=== PATIENT | male | born 1980 | race Caucasian/White ===

== ENCOUNTER 2024-03-17 09:07 | Inpatient (IN) ==
--- NOTE | 2024-03-17 09:30 | Emergency Department Note ---
Impression & Plan SBO (small bowel obstruction), Vomiting, Leukocytosis, Anemia, Recent cerebrovascular accident, Dialysis patient, Tachycardia ED Provider Note NAME: MARIZOL ADEN AGE: 44 SEX: M : 1980 ARRIVES VIA: Ambulance INFORMANT: [Patient][ems, nursing] ED PROVIDER(S): [Ervin Jaquez MD] CHIEF COMPLAINT: Vomiting, distention HISTORY OF PRESENT ILLNESS: The patient is a 44-year-old male who recently had a stroke affecting his right side. He has expressive aphasia and significant right-sided deficits. He is currently at [facility] for rehab. Has a history of renal failure and does do peritoneal dialysis. He has a right chest line in place. The patient began vomiting last evening, his abdomen is distended. There is concern for bowel obstruction, he was sent to our hospital. The patient denies any abdominal pain but does admit to the bloating of the abdomen. He is not short of breath. He is currently on 2 L of oxygen which has been chronic since his CVA. In route, he was given 4 mg of Zofran IV by EMS. PMHx/PSHx/Social Hx: See Below PHYSICAL EXAM: GENERAL: Patient is in no acute distress. HEENT: No acute trauma, normocephalic atraumatic, mucous membranes moist, no nasal congestion. NECK: No stridor, no adenopathy, no meningismus, trachea is midline. LUNGS: Clear to auscultation bilaterally, no wheeze, no rhonchi, breath sounds equal. HEART: Mildly tachycardic, regular rhythm, no murmurs. ABDOMEN: Distended and firm. There is tympany with percussion. No pain with palpation. There is a peritoneal dialysis catheter in place EXTREMITIES: No cyanosis. No significant edema. There is a boot on the right lower extremity. NEUROLOGIC: Oriented x 3, currently nonverbal. Awake and alert SKIN: No jaundice, no diaphoresis. DIFFERENTIAL DIAGNOSIS: Bowel obstruction, ileus, constipation, dehydration, electrolyte imbalance, among others. EMERGENCY DEPARTMENT PROCEDURES: MEDICAL DECISION MAKING: There is a moderate leukocytosis, this could be consistent with infection. Patient is anemic with a hemoglobin of 9.1. There is a normal platelet count. INR is somewhat elevated at 1.2. Potassium mildly elevated at 5.2. There was a high creatinine and BUN consistent with his dialysis need. No concerning liver enzyme elevation. Lipase was somewhat high at 223, this elevation could be from his vomiting alone. COVID test was negative. Chest x-ray does not show pneumonia, free air or pneumothorax. Abdominal and pelvis CT does suggest a small bowel obstruction or severe ileus. On exam, the patient did have abdominal distention with tympany to percussion. He was not febrile, he did not complain of any pain. He was mildly tachycardic and borderline hypotensive. The patient did vomit 1 time here, he was given an additional 4 mg of Zofran IV. This was on top of the Zofran given prior to arrival. Patient received a 500 cc saline bolus. Eventually, he had an NG tube placed to low intermittent suction. The patient appears to have a small bowel obstruction. This has led to abdominal distention and vomiting. As he does have a dialysis need, I am hesitant to give too much IV fluid despite his borderline hypotension. I did speak with general surgery. No acute surgical intervention. NG tube decompression was suggested. Hospitalization is clearly indicated. I did speak with the patient and case management, the on-call hospitalist was consulted. Prior/Outside records/notes reviewed: Today's EMS notes describing his presentation and transport to this hospital. ECG per my interpretation: Indication was tachycardia. The ECG shows a sinus tachycardia with a rate of 112. There is no acute ST elevation, no PVCs. The QTc is 444. Continuous Cardiac Monitoring per my interpretation: An order was placed for continuous cardiac monitoring. The monitor shows a rate of 114 with sinus tachycardia. Imaging/x-ray results per my interpretation: Chest x-ray does not show CHF, pneumonia or pneumothorax. There is no free air. Chronic Medical/Social conditions affecting care: Recent CVA with current stay at inpatient rehab. Care/Management discussed with: General surgery-Dr. Esquivel. Case management and the on-call hospitalist. Level of care consideration(s): After review of the information above and other included data: --I believe the patient requires escalation of care to admission Critical Care Note: I have personally spent 46 minutes of critical care time in the direct management of this patient. This includes bedside care, interpretation of diagnostic studies, and testing, discussion with consultants, patient, and family members, and other required patient management activities. This 46 minutes is in excess of all separately billable procedures. DISPOSITION: Admission Past Med/Surg History Problem List Hypotension Ileus Aphasia, post-stroke Dyslipidemia Anemia in ESRD (end-stage renal disease) Essential hypertension Acute ischemic left MCA stroke ESRD on peritoneal dialysis Medical History Legionnaires' disease Diastolic congestive heart failure Failed kidney transplant Gouty arthropathy Granulomatosis with polyangiitis with renal involvement Surgical History (Updated 03/17/24 @ 11:50 by Lexi Ballard PA-C) History of kidney transplant Family History (Updated 03/17/24 @ 11:50 by Lexi Ballard PA-C) Other Cancer Diabetes Hypertension Social History Smoking Status: Never smoker Feels Safe at Home: Yes Allergies Allergies Allergy/AdvReac Type Severity Reaction Status Date / Time No Known Allergies Allergy Verified 03/17/24 11:47 Home Meds Home Medications Medication Instructions Recorded Confirmed apixaban 5 mg tablet (Eliquis) 5 mg PO BID 03/17/24 03/17/24 atorvastatin 40 mg tablet 40 mg PO HS 03/17/24 03/17/24 calcium acetate(phosphat bind) 667 2,001 mg PO UD 03/17/24 03/17/24 mg capsule cinacalcet 30 mg tablet 60 mg PO QPM 03/17/24 03/17/24 cyclosporine modified 25 mg capsule 50 mg PO BID 03/17/24 03/17/24 febuxostat 80 mg tablet 80 mg PO QAM 03/17/24 03/17/24 ferric citrate 210 mg iron tablet 210 mg PO AC 03/17/24 03/17/24 (Auryxia) metoprolol succinate 100 mg 100 mg PO QAM 03/17/24 03/17/24 tablet,extended release 24 hr omeprazole 20 mg capsule,delayed 20 mg PO BID 03/17/24 03/17/24 release vitamin B complex and vitamin C 1 cap PO DAILY 03/17/24 03/17/24 no.20-folic acid 1 mg capsule Results & Data (ED) Vital Signs Vital Signs - 24 hr 03/17/24 09:07 03/17/24 09:27 03/17/24 09:35 Temperature 36.4 C L Temperature Source Oral Pulse Rate 117 H 116 H 116 H Pulse Rate from SpO2 Sensor Pulse Rhythm Regular Respiratory Rate 20 20 Respiratory Effort / Characteristics Non-Labored Respiratory Depth Normal Respiratory Pattern Regular Blood Pressure 83/65 L Blood Pressure Mean 71 Pulse Oximetry 98 98 Oxygen Delivery Method Nasal Cannula Nasal Cannula Oxygen Flow Rate 2 2 Sepsis Recent Fever Within 48 Hours No Sepsis New/Unexplained Change in Mental Status No Sepsis Action Taken by Nursing Physician Notified 03/17/24 10:00 03/17/24 10:00 03/17/24 11:39 Temperature Temperature Source Pulse Rate 114 H 109 H 116 H Pulse Rate from SpO2 Sensor 115 H 110 H 116 H Pulse Rhythm Respiratory Rate 33 H 15 Respiratory Effort / Characteristics Respiratory Depth Respiratory Pattern Blood Pressure 89/66 L 89/66 L 81/53 L Blood Pressure Mean 73 69 62 Pulse Oximetry 94 99 94 Oxygen Delivery Method Nasal Cannula Nasal Cannula Oxygen Flow Rate 2 3 Sepsis Recent Fever Within 48 Hours Sepsis New/Unexplained Change in Mental Status Sepsis Action Taken by Nursing 03/17/24 12:00 Temperature Temperature Source Pulse Rate 106 H Pulse Rate from SpO2 Sensor 107 H Pulse Rhythm Respiratory Rate 16 Respiratory Effort / Characteristics Respiratory Depth Respiratory Pattern Blood Pressure 73/46 L Blood Pressure Mean 58 Pulse Oximetry 97 Oxygen Delivery Method Nasal Cannula Oxygen Flow Rate 2 Sepsis Recent Fever Within 48 Hours Sepsis New/Unexplained Change in Mental Status Sepsis Action Taken by Correction Medications Current Medication List: was personally reviewed by me Laboratory Data Attestation: I reviewed the patient's lab results. 03/17/24 09:55 03/17/24 09:55 Lab Results 03/17/24 03/17/24 Range/Units 09:55 10:10 WBC 18.75 H (4.8-10.8) K/ul RBC 3.06 L (4.70-6.10) M/uL Hgb 9.1 L (14.0-18.0) g/dl Hct 28.5 L (42.0-52.0) % MCV 93.1 (80.0-100.0) fL MCH 29.7 (25.0-34.0) pg MCHC 31.9 L (32.0-36.0) g/dL RDW Std Deviation 56.2 H (36.4-46.3) fL RDW Coeff of Annie 17.2 H (11.5-14.5) % Plt Count 338 (130-400) K/uL MPV 9.9 (9.4-12.4) fL Immature Gran % (Auto) 1.3 % Neut % (Auto) 78.8 % Lymph % (Auto) 8.4 % [place] % (Auto) 9.1 % Eos % (Auto) 1.9 % Baso % (Auto) 0.5 % Neut # (Auto) 14.76 H (1.40-6.50) K/uL Lymph # (Auto) 1.57 (1.20-3.40) K/uL [place] # (Auto) 1.71 H (0.11-0.59) K/uL Eos # (Auto) 0.36 (0.00-0.50) K/uL Baso # (Auto) 0.10 (0.00-0.20) K/uL Immature Gran # (Auto) 0.25 H (0.01-0.20) K/uL Absolute Nucleated RBC 0.03 (0.00-0.12) K/uL Nucleated RBC % (auto) 0.2 % PT 12.5 H (9.0-12.0) Seconds INR 1.2 H (0.9-1.1) APTT 33 H (21-31) Seconds PTT Ratio 1.2 Sodium 136 (136-145) mmol/L Potassium 5.2 H (3.5-5.1) mmol/L Chloride 93 L (98-107) mmol/L Carbon Dioxide 23 (21-32) mmol/L Anion Gap 20 H (3-11) BUN 58 H (6-23) mg/dl Creatinine 10.36 H* (0.6-1.4) mg/dl Est Cr Clr Drug Dosing 12.0 ml/min Est GFR ( Amer) 6.3 ml/min Est GFR (Non-Af Amer) 5.4 ml/min BUN/Creatinine Ratio 5.6 L (10-20) Glucose 113 H (70-99(Fasting)) mg/dl Calcium 9.9 (8.6-10.3) mg/dl Total Bilirubin 0.9 (0.2-1.0) mg/dl AST 37 (13-39) U/L ALT 34 (7-52) U/L Alkaline Phosphatase 115 H (34-104) U/L Total Protein 9.0 H (6.0-8.3) gm/dl Albumin 4.5 (3.4-5.0) gm/dl Globulin 4.5 H (2.5-4.0) gm/dl Albumin/Globulin Ratio 1.0 (0.9-2) Lipase 223 H (11-82) U/L SARS-CoV-2, RNA, NAAT NEGATIVE (NEGATIVE) Administered Medications Sodium Chloride (Nss) 1,000 mls @ 80 mls/hr IV .[id number] HANSA Stop: 03/18/24 02:55 Last Admin: 03/17/24 14:32 Dose: 125 mls/hr Documented By: DAYSI Discontinued Medications Sodium Chloride (Nss) 500 mls @ 999 mls/hr IV .Q31M STA Stop: 03/17/24 09:56 Last Infusion: 03/17/24 10:58 Dose: Infused Documented By: Admin: 03/17/24 10:00 Dose: 999 mls/hr Documented By: SNOW Sodium Chloride (Nss) 500 mls @ 500 mls/hr IV .Q1H HANSA Stop: 03/17/24 14:14 Last Admin: 03/17/24 14:00 Dose: 500 mls/hr Documented By: DAYSI Ondansetron HCl (Ondansetron Inj 2 Mg/Ml 2 Ml Vial) 4 mg IV NOW STA Stop: 03/17/24 11:03 Last Admin: 03/17/24 11:11 Dose: 4 mg Documented By: BMK Imaging Data Radiologist's Impression: Chest X-Ray 03/17/24 09:26 XR chest 1V portable CLINICAL HISTORY: abd pain TECHNIQUE: Single frontal radiograph of the chest was obtained. Comparison: None available at the time of this dictation. FINDINGS: The catheter is unchanged. The cardiomediastinal silhouette is normal. Lungs are underinflated but clear. No evidence of pleural effusion or pneumothorax. IMPRESSION: No acute chest disease. ACT 112: Negative or not required by law. Electronically signed by: David Torrez M.D. 03/17/2024 10:15 AM Abdomen/Pelvis CT 03/17/24 10:14 CT abd pelvis wo con CLINICAL HISTORY: poss obstruc, dialysis pt TECHNIQUE: Helical axial images of the abdomen and pelvis were obtained. Automated dose lowering techniques and/or adjustment according to patient size were utilized for this exam. This exam was performed without intravenous contrast. CT DOSE: 2201.42 mGy.cm COMPARISON: None available at the time of this dictation. FINDINGS: Lower chest: No acute abnormality. Liver: Unremarkable. No focal lesions are seen. Gallbladder and biliary tree: No calcified gallstones. Normal caliber wall. No intra- or extrahepatic biliary ductal dilation. Pancreas: Unremarkable, no focal lesions. Spleen: Splenule is incidentally noted. Adrenals: Unremarkable. Kidneys and ureters: Atrophic bilateral kidneys noted. An atrophic transplant kidney is noted in the left lower quadrant. Bladder: Limited evaluation due to underdistention. Reproductive organs: Unremarkable. Bowel: Numerous dilated loops of large and small bowel are seen. There is apparent tethering of 2 loops of small bowel in one loop of large bowel in the right lower quadrant although this does not represent a transition point as distal loops of bowel are also dilated. Lymph nodes Retroperitoneal: Unremarkable. Pelvic: Unremarkable. Mesenteric: Unremarkable. Peritoneum: Peritoneal catheter is seen. No significant free fluid. Vessels: Unremarkable. Abdominal wall: Unremarkable. Bones: Degenerative changes in the visualized spine. IMPRESSION: Numerous dilated loops of large and small bowel without a firm transition point. Findings may represent ileus versus partial obstruction. There may be a focus of adhesions in the right lower quadrant. ACT 112: Negative or not required by law. Electronically signed by: David Torrez M.D. 03/17/2024 10:53 AM Discharge Plan Visit Data Chief Complaint: Vomiting Stated Complaint: NAUSEA, VOMITING ED Provider: Ervin Jaquez Discharge Problem: SBO (small bowel obstruction), Vomiting, Leukocytosis, Anemia, Recent cerebrovascular accident, Dialysis patient, Tachycardia Patient Disposition: Admitted As Inpatient Condition: Fair Discharge Instructions Interventions: ED Discharge Assessment Last Done: 03/17/24 12:50 Discharge Problem: Vomiting Qualifiers: Vomiting type: unspecified Nausea presence: with nausea Qualified Code(s): R 11.2 - Nausea with vomiting, unspecified Leukocytosis Qualifiers: Leukocytosis type: unspecified Qualified Code(s): D72.829 - Elevated white blood cell count, unspecified Anemia Qualifiers: Anemia type: unspecified type Qualified Code(s): D64.9 - Anemia, unspecified
[2024-03-17] MEDS: SODIUM CHLORIDE 0.9% 500 ML IV STA (10:00)
--- NOTE | 2024-03-17 10:17 | XRay Report ---
XR chest 1V portable CLINICAL HISTORY: abd pain TECHNIQUE: Single frontal radiograph of the chest was obtained. Comparison: None available at the time of this dictation. FINDINGS: The catheter is unchanged. The cardiomediastinal silhouette is normal. Lungs are underinflated but cl ear. No evidence of pleural effusion or pneumothorax. IMPRESSION: No acute chest disease. ACT 112: Negative or not required by law. Electronically signed by: David Torrez M.D. 03/17/2024 10:15 AM
[2024-03-17 10:41] LABS: Basophils % (auto) 0.5 %; Eosinophils # (auto) 0.36 K/uL (0.00-0.50); Eosinophils % (auto) 1.9 %; Hematocrit (blood only) 28.5 % (42.0-52.0); Hemoglobin 9.1 g/dl (14.0-18.0); Immature Granulocytes # (auto) 0.25 K/uL (0.01-0.20); Immature Granulocytes % (auto) 1.3 %; Lymphocytes # (auto) 1.57 K/uL (1.20-3.40); Lymphocytes % (auto) 8.4 %; Mean Corpuscular Hemoglobin 29.7 pg (25.0-34.0); Mean Corpuscular Hgb Conc 31.9 g/dL (32.0-36.0); Mean Corpuscular Volume 93.1 fL (80.0-100.0); Mean Platelet Volume 9.9 fL (9.4-12.4); Monocytes # (auto) 1.71 K/uL (0.11-0.59); Monocytes % (auto) 9.1 %; Neutrophils # (auto) 14.76 K/uL (1.40-6.50); Neutrophils % (auto) 78.8 %; Nucleated RBC # (auto) 0.03 K/uL (0.00-0.12); Nucleated RBC % (auto) 0.2 %; Platelet Count 338 K/uL (130-400); RDW Coefficient of Variation 17.2 % (11.5-14.5); RDW Standard Deviation 56.2 fL (36.4-46.3); Red Blood Count 3.06 M/uL (4.70-6.10); White Blood Count 18.75 K/ul (4.8-10.8)
--- NOTE | 2024-03-17 10:55 | CT Scan Report ---
CT abd pelvis wo con CLINICAL HISTORY: poss obstruc, dialysis pt TECHNIQUE: Helical axial images of the abdomen and pelvis were obtained. Automated dose lowering tech niques and/or adjustment according to patient size were utilized for this exam. This exam was perfor med without intravenous contrast. CT DOSE: 2201.42 mGy.cm COMPARISON: None available at the time of this dictation. FINDINGS: Lower chest: No acute abnormality. Liver: Unremarkable. No focal lesions are seen. Gallbladder and biliary tree: No calcified gallstones. Normal caliber wall. No intra- or extrahepatic biliary ductal dilation. Pancreas: Unremarkable, no focal lesions. Spleen: Splenule is incidentally noted. Adrenals: Unremarkable. Kidneys and ureters: Atrophic bilateral kidneys noted. An atrophic transplant kidney is noted in the left lower quadrant. Bladder: Limited evaluation due to underdistention. Reproductive organs: Unremarkable. Bowel: Numerous dilated loops of large and small bowel are seen. There is apparent tethering of 2 loo ps of small bowel in one loop of large bowel in the right lower quadrant although this does not repre sent a transition point as distal loops of bowel are also dilated. Lymph nodes Retroperitoneal: Unremarkable. Pelvic: Unremarkable. Mesenteric: Unremarkable. Peritoneum: Peritoneal catheter is seen. No significant free fluid. Vessels: Unremarkable. Abdominal wall: Unremarkable. Bones: Degenerative changes in the visualized spine. IMPRESSION: Numerous dilated loops of large and small bowel without a firm transition point. Findings may represe nt ileus versus partial obstruction. There may be a focus of adhesions in the right lower quadrant. ACT 112: Negative or not required by law. Electronically signed by: David Torrez M.D. 03/17/2024 10:53 AM
[2024-03-17 11:03] LABS: Albumin Level 4.5 gm/dl (3.4-5.0); BUN Creatinine Ratio 5.6 (10-20); Bilirubin,Total 0.9 mg/dl (0.2-1.0); Calcium 9.9 mg/dl (8.6-10.3); Est GFR (African American) 6.3 ml/min; Est GFR (Non-African American) 5.4 ml/min; Globulin 4.5 gm/dl (2.5-4.0); Potassium 5.2 mmol/L (3.5-5.1)
[2024-03-17] MEDS: ONDANSETRON INJ 2 MG/ML 2 ML VIAL IV STA (11:11)
[2024-03-17 11:19] LABS: INR 1.2 (0.9-1.1); Partial Thromboplastin Ratio 1.2; Partial Thromboplastin Time 33 Seconds (21-31); Prothrombin Time 12.5 Seconds (9.0-12.0)
--- NOTE | 2024-03-17 11:51 | History & Physical Report ---
Date of Service March 17, 2024 Assessment & Plan (1) Ileus: Plan: This is a 44 y/o male with ESRD on PD, recent Left MCA stroke s/p unsuccessful thrombectomy with residual right hemiparesis and expressive aphasia, mitral leaflet non-mobile calcified mass, PFO, granulomastosis w/ polyangiitis, hx failed renal transplant, and other history as outlined below who presented to the ED today from [facility] after he developed vomiting and progressive abdominal distention since last night. [place] [facility] acute left MCA stroke with resultant severe expressive aphasia and right hemiparesis. Transferred to [facility] last evening but overnight developed recurrent vomiting and abd distention so transferred to the ED where work-up showed severe ileus vs. bowel obstruction. ED provider spoke with surgery who recommended NGT placement and observation. We were consulted for admission. NGT output since placement already >500 ml, at least 1000 ml out since arriving in the ED. Pt received initial 500 ml bolus in the ED but aggressive fluid replacement def erred due ESRD requiring dialysis and history diastolic CHF. - Admit to PCU but may need to consider transfer to ICU - Continue NGT per surgery - monitor Is and Os - Formal surgery consult pending - ED spoke with on-call provider - Discussed patient with Dr. Amaya from nephrology who is consulted - recommends considering transfer to ICU due to persistent hypotension since NGT placed - Will give another 500 ml NSS bolus and re-evaluate - Empiric antibiotic coverage with Zosyn -Lactate has been normal and ABG showed low pO2 of 50 with normal pH -Discussed with cnc operator machinist and the patient was transferred to ICU for continued care Leukocytosis Likely has sepsis, no definitive source of infection as of yet, could be intra- abdominal or in the chest Started with intravenous Zosyn as empirically The patient is developing fever in the ICU Blood cultures has been taken MRSA screen has been Negative (2) Hypotension: Plan: Blood pressure remained low at upper 70s even with 5 minutes mL of normal saline bolus Discussed with the solderer electronic and advised to have small volume of IV fluid and replace the amount loss The patient is to be transferred to ICU as he may need pressor agents now and during dialysis Will transfer the patient to ICU-left a message for cnc operator machinist Dr Anoop Davies Latest development: Blood pressure has been coming up documented to be 91/52 Discussed with the cnc operator machinist Will try to manage in telemetry unit for now Will get ABG, random cortisol level and lactate level If his conditions specially the blood pressure drops down then we will transfer the patient to ICU for pressor agents DR Anoop Davies (3) Aphasia, post-stroke: Plan: With right hemiplegia (4) ESRD on peritoneal dialysis: Plan: Previously was on peritoneal dialysis Since he had been in [place] they started hemodialysis Has had hemodialysis yesterday Appreciate nephrology input and recommendation (5) Acute ischemic left MCA stroke: Plan: As above (6) Essential hypertension: Plan: DVT prophylaxis He has been on Eliquis Will hold any pharmacologic prophylaxis at this time as he might need procedure in the ICU Will consider heparin tomorrow. Plan Medications reconciled from [facility] Holding most of pt's outpatient meds right now since NPO w/ NGT in place Pt on Eliquis due to potential thrombogenic mitral leaflet mass - consider alternate AC since Eliquis on hold. Continue BID PPI - note recent gastritis on EGD Pt seen and reviewed with Dr. Davies. Please see his note for additional details of the plan of care. Emir Ballard PA-C History of Present Illness Chief Complaint: vomiting Primary Care Provider: Tomer Garner MD This is a 44 y/o male with ESRD on PD, recent Left MCA stroke s/p unsuccessful thrombectomy with residual right hemiparesis and expressive aphasia, mitral leaflet non-mobile calcified mass, PFO, granulomastosis w/ polyangiitis, hx failed renal transplant, and other history as outlined below who presented to the ED today from [facility] after he developed vomiting and progressive abdominal distention since last night. Pt was [place] [facility] [place] 03/16/24 after he presented with new onset expressive aphasia. Work-up showed an acute left MCA infarct with calcific thrombus at the left MCA distal M1 segment. He was not a candidate for tPA; revascularization was attempted unsuccessfully. ALICIA on 03/08/24 confirmed the presence of a mitral leaflet non-mobile calcified mass that was potentially thrombogenic. He was also noted to have a small PFO with an atrial septal aneurysm. Antithrombotic regimen was initially implemented with aspirin and Plavix, then aspirin and Brilinta due to low PRU. Subsequently, he was changed to aspirin monotherapy, then aspirin and Eliquis, and was ultimately discharged on Eliquis alone. Hospital course was also complicated by UGIB with EGD showing gastritis. Transitioned back to PD on 03/04 but then back to CRRT due to poor ultrafiltration. At time of discharge, he was on HD on M/W/F with a plan to resume PD when pt returned home from rehab. Pt was NPO initially at [facility] but had been taking oral intake for the last few days. At time of discharge, he was noted to have severe expressive aphasia and persistent right sided hemiparesis but did response to yes/no questions. He was transferred to [facility] yesterday evening, arriving around 1900. Notes from [facility] were reviewed. Around 2100, pt was given his evening medications in pudding but after the second pill, he started vomiting brown liquid emesis with reported 1000 ml out. Around 2 am, 5:30 am, 6:00 am, and 6:30 am, he had an additional 250 ml of emesis each time. He was evaluated by the physician shortly after the last episode of emesis who recommended transfer to the ED at [facility]. Since being in the ED, pt vomited another 500 ml of brown emesis while the NGT was being placed. Since the NGT has placed, he has had at least another 500 ml out. Limited history from patient due to the expressive aphasia, but he denies pain at present. He has had some relief of discomfort with the NGT placement. Records including pt's discharge summary from [facility] [place] were reviewed. Last HD note reviewed with last HD on 03/15/24 - 246 min, -1.93 kg. CTA Brain 02/24/24: 1. Calcific thrombus at the left MCA distal M1 segment, with distal reconstitution. 2. Definite occlusion of a left MCA M2 to M3 branch. Possible occlusion of an additional left M2 to M3 branch. 3. origin of the right CAR DEALER. MRI Brain 02/24/24: IMPRESSION: Acute/subacute left MCA territory infarction involving a large portion of the left cerebral hemisphere without evidence of hemorrhagic transformation or significant associated mass effect. Curvilinear focus of susceptibility along the distal M1/proximal M2 segments of the left middle cerebral artery, corresponding to the location of a suspected calcified thrombus identified on CTA head/neck from 02/24/2024. TTE: 02/26/24: The examination is limited quality but adequate for evaluation of the referral indication. The qualitative LV ejection fraction is 65-69% (normal). No LV segmental wall motion abnormalities. There is an echodense area under the posterior mitral annulus on the atrial aspect of the valve which is consistent with mitral annular calcium. This was not appreciated well on study dated 10-29-2023, but is present on study 11-01-2022. There is no ASD/PFO by agitated saline contrast at rest or with valsalva manuever ALICIA 03/08/24: The examination is adequate to evaluate the referral indication. The qualitative LV ejection fraction is 60-64% (normal). No LV segmental wall motion abnormalities. There is a round, well circumscribed calcified nodule on the P2 segment of the mitral valve measuring 1.2 x 0.93 cm. Exact etiology cannot be determined by echo but there is no other significant calcification in the annulus to suggest that this is MAC. There is an atrial septal aneurysm. There is a small patent foramen ovale by color flow Doppler but no significant right to left was demonstrated with administration of agitated saline. Findings reviewed with primary team at bedside. EGD 03/01/24 due to coffee-ground emesis in NGT: Impression: - Normal esophagus. - Z-line regular, 44 cm from the incisors. - Gastritis. - Normal examined duodenum. - No specimens collected. Allergies Allergy/AdvReac Type Severity Reaction Status Date / Time No Known Allergies Allergy Verified 03/17/24 11:47 Home Medications Medication Instructions Recorded Confirmed Type apixaban 5 mg tablet (Eliquis) 5 mg PO BID 03/17/24 03/17/24 History atorvastatin 40 mg tablet 40 mg PO HS 03/17/24 03/17/24 History calcium acetate(phosphat bind) 667 2,001 mg PO UD 03/17/24 03/17/24 History mg capsule cinacalcet 30 mg tablet 60 mg PO QPM 03/17/24 03/17/24 History cyclosporine modified 25 mg capsule 50 mg PO BID 03/17/24 03/17/24 History febuxostat 80 mg tablet 80 mg PO QAM 03/17/24 03/17/24 History ferric citrate 210 mg iron tablet 210 mg PO AC 03/17/24 03/17/24 History (Auryxia) metoprolol succinate 100 mg 100 mg PO QAM 03/17/24 03/17/24 History tablet,extended release 24 hr omeprazole 20 mg capsule,delayed 20 mg PO BID 03/17/24 03/17/24 History release vitamin B complex and vitamin C 1 cap PO DAILY 03/17/24 03/17/24 History no.20-folic acid 1 mg capsule Past Med/Surg History Problem List (Updated 03/17/24 @ 16:11 by Lexi Ballard PA-C) Hypotension Ileus Aphasia, post-stroke Dyslipidemia Anemia in ESRD (end-stage renal disease) Essential hypertension Acute ischemic left MCA stroke ESRD on peritoneal dialysis Medical History Legionnaires' disease Diastolic congestive heart failure Failed kidney transplant Gouty arthropathy Granulomatosis with polyangiitis with renal involvement Surgical History (Updated 03/17/24 @ 11:50 by Lexi Ballard PA-C) History of kidney transplant Family History (Updated 03/17/24 @ 11:50 by Lexi Ballard PA-C) Other Cancer Diabetes Hypertension Social History Smoking Status: Never smoker Hx Alcohol Use: No Hx Substance Use: No Preferred Language: Bermudian Communication Ability: Effective Secondary School Registrar Required: No Beliefs That Will Affect Care: None Other Information That Helps Us Care for You: No Feels Safe at Home: Yes Review of Systems Review of Systems: Limited to expressive aphasia - see HPI Physical Exam Physical Exam: General: awake, answers yes/no questions by nodding/shaking head HEENT: no scleral icterus, NGT in place with dark brown liquid drainage Neck: supple, trachea midline Heart: regular but tachycardic Lungs: clear and slightly diminished on the anterior but limited inspiratory effort Abdomen: +distended, +Hypoactive BS, generalized tenderness Extremities: right LE in boot, no pitting pedal edema noted Neurologic: right hemiparesis, nonverbal Skin: warm, dry, no jaundice Results & Data Results & Data Vital Signs (Past 12 Hours) Vital Signs Temp Pulse Resp BP Pulse Ox O2 Del Method O2 Flow Rate 03/17/24 10:00 114 H 33 H 89/66 L 94 Nasal Cannula 2 03/17/24 09:35 116 H 20 98 Nasal Cannula 2 03/17/24 09:27 116 H 03/17/24 09:07 36.4 C L 117 H 20 83/65 L 98 Nasal Cannula 2 Laboratory Results Lab Results 03/17/24 03/17/24 Range/Units 09:55 10:10 WBC 18.75 H (4.8-10.8) K/ul RBC 3.06 L (4.70-6.10) M/uL Hgb 9.1 L (14.0-18.0) g/dl Hct 28.5 L (42.0-52.0) % MCV 93.1 (80.0-100.0) fL MCH 29.7 (25.0-34.0) pg MCHC 31.9 L (32.0-36.0) g/dL RDW Std Deviation 56.2 H (36.4-46.3) fL RDW Coeff of Annie 17.2 H (11.5-14.5) % Plt Count 338 (130-400) K/uL MPV 9.9 (9.4-12.4) fL Immature Gran % (Auto) 1.3 % Neut % (Auto) 78.8 % Lymph % (Auto) 8.4 % [place] % (Auto) 9.1 % Eos % (Auto) 1.9 % Baso % (Auto) 0.5 % Neut # (Auto) 14.76 H (1.40-6.50) K/uL Lymph # (Auto) 1.57 (1.20-3.40) K/uL [place] # (Auto) 1.71 H (0.11-0.59) K/uL Eos # (Auto) 0.36 (0.00-0.50) K/uL Baso # (Auto) 0.10 (0.00-0.20) K/uL Immature Gran # (Auto) 0.25 H (0.01-0.20) K/uL Absolute Nucleated RBC 0.03 (0.00-0.12) K/uL Nucleated RBC % (auto) 0.2 % PT 12.5 H (9.0-12.0) Seconds INR 1.2 H (0.9-1.1) APTT 33 H (21-31) Seconds PTT Ratio 1.2 Sodium 136 (136-145) mmol/L Potassium 5.2 H (3.5-5.1) mmol/L Chloride 93 L (98-107) mmol/L Carbon Dioxide 23 (21-32) mmol/L Anion Gap 20 H (3-11) BUN 58 H (6-23) mg/dl Creatinine 10.36 H* (0.6-1.4) mg/dl Est Cr Clr Drug Dosing 12.0 ml/min Est GFR ( Amer) 6.3 ml/min Est GFR (Non-Af Amer) 5.4 ml/min BUN/Creatinine Ratio 5.6 L (10-20) Glucose 113 H (70-99(Fasting)) mg/dl Calcium 9.9 (8.6-10.3) mg/dl Total Bilirubin 0.9 (0.2-1.0) mg/dl AST 37 (13-39) U/L ALT 34 (7-52) U/L Alkaline Phosphatase 115 H (34-104) U/L Total Protein 9.0 H (6.0-8.3) gm/dl Albumin 4.5 (3.4-5.0) gm/dl Globulin 4.5 H (2.5-4.0) gm/dl Albumin/Globulin Ratio 1.0 (0.9-2) Lipase 223 H (11-82) U/L SARS-CoV-2, RNA, NAAT NEGATIVE (NEGATIVE) Diagnostic Findings Chest X-Ray 03/17/24 09:26 XR chest 1V portable CLINICAL HISTORY: abd pain TECHNIQUE: Single frontal radiograph of the chest was obtained. Comparison: None available at the time of this dictation. FINDINGS: The catheter is unchanged. The cardiomediastinal silhouette is normal. Lungs are underinflated but clear. No evidence of pleural effusion or pneumothorax. IMPRESSION: No acute chest disease. ACT 112: Negative or not required by law. Electronically signed by: David Torrez M.D. 03/17/2024 10:15 AM Abdomen/Pelvis CT 03/17/24 10:14 CT abd pelvis wo con CLINICAL HISTORY: poss obstruc, dialysis pt TECHNIQUE: Helical axial images of the abdomen and pelvis were obtained. Automated dose lowering techniques and/or adjustment according to patient size were utilized for this exam. This exam was performed without intravenous contrast. CT DOSE: 2201.42 mGy.cm COMPARISON: None available at the time of this dictation. FINDINGS: Lower chest: No acute abnormality. Liver: Unremarkable. No focal lesions are seen. Gallbladder and biliary tree: No calcified gallstones. Normal caliber wall. No intra- or extrahepatic biliary ductal dilation. Pancreas: Unremarkable, no focal lesions. Spleen: Splenule is incidentally noted. Adrenals: Unremarkable. Kidneys and ureters: Atrophic bilateral kidneys noted. An atrophic transplant kidney is noted in the left lower quadrant. Bladder: Limited evaluation due to underdistention. Reproductive organs: Unremarkable. Bowel: Numerous dilated loops of large and small bowel are seen. There is apparent tethering of 2 loops of small bowel in one loop of large bowel in the right lower quadrant although this does not represent a transition point as distal loops of bowel are also dilated. Lymph nodes Retroperitoneal: Unremarkable. Pelvic: Unremarkable. Mesenteric: Unremarkable. Peritoneum: Peritoneal catheter is seen. No significant free fluid. Vessels: Unremarkable. Abdominal wall: Unremarkable. Bones: Degenerative changes in the visualized spine. IMPRESSION: Numerous dilated loops of large and small bowel without a firm transition point. Findings may represent ileus versus partial obstruction. There may be a focus of adhesions in the right lower quadrant. ACT 112: Negative or not required by law. Electronically signed by: David Torrez M.D. 03/17/2024 10:53 AM Medications Administered Discontinued Medications Sodium Chloride (Nss) 500 mls @ 999 mls/hr IV .Q31M STA Stop: 03/17/24 09:56 Last Infusion: 03/17/24 10:58 Dose: Infused Documented By: Admin: 03/17/24 10:00 Dose: 999 mls/hr Documented By: SNOW Ondansetron HCl (Ondansetron Inj 2 Mg/Ml 2 Ml Vial) 4 mg IV NOW STA Stop: 03/17/24 11:03 Last Admin: 03/17/24 11:11 Dose: 4 mg Documented By: NITIN Supervising Physician Co-Signing Physician Notes Attending addendum: The patient was seen and examined in emergency room in presence of the parents He is a 44-year-old male with complex and complicated past medical history including end-stage renal disease on peritoneal dialysis and now on hemodia lysis, recent left MCA stroke with successful thrombectomy with residual right hemiparesis and expressive aphasia, mitral plate nonmobile calcified mass, PFO, history of failed renal transplant and also other significant medical history and mention in the H&P apparently was discharged from [place] yesterday to [facility]. He has been complaining of progressive abdominal distention and bloating for the last few days and following food this morning started to have more distention, pain, nausea and vomiting. Denies any fever and or chills, no chest pain and/or palpitation. He was noted to have ileitis/intestinal obstruction on CAT scan. Has been put on NG tube and suction, n.p.o. and also IV antibiotic and was admitted to telemetry unit but continuing of care. On examination Lying in bed without any apparent distress, very lethargic Nonverbal secondary to stroke with right hemiparesis Blood pressure has been on the lower side at 74/51 with tachycardia Chest-decreased breath sound bilateral otherwise clear Heart-S1, S2, regular Abdomen-distended, mildly firm and mildly tender, bowel sounds decreased Extremities-trace edema bilaterally HOSPICE CARE CONSULTANT-alert and awake, and fascia, right hemiplegia from recent stroke His admission labs, EKG and imaging studies reviewed Has significant signs and symptoms of SBO due to ileitis/obstruction-surgery consulted, NG tube has been putting with low suction Increased white count-will start empiric antibiotic with Zosyn to cover intra- abdominal pathologies mainly End-stage renal disease also on peritoneal dialysis now on hemodialysis-will co nsult solderer electronic Low blood pressure likely secondary to ongoing illness and could be secondary to sepsis-antibiotics have been started Recent stroke with aphasia and right hemiparesis Agree with and take the full responsibility of assessment and plan as outlined above by INOCENCIO Canela Dr Blood pressure remained low at upper 70s even with 5 minutes mL of normal saline bolus Discussed with the solderer electronic and advised to have small volume of IV fluid and replace the amount loss The patient is to be transferred to ICU as he may need pressor agents now and during dialysis Will transfer the patient to ICU-left a message for cnc operator machinist Dr Anoop Davies Latest development: Blood pressure has been coming up documented to be 91/52 Discussed with the cnc operator machinist Will try to manage in telemetry unit for now Will get ABG, random cortisol level and lactate level If his conditions specially the blood pressure drops down then we will transfer the patient to ICU for pressor agents DR Anoop Davies (2) Hypotension Hypotension type: hypotension due to hypovolemia Qualified Code(s): E86.1 - Hypovolemia
[2024-03-17] MEDS: SODIUM CHLORIDE 0.9% 500 ML IV SCH (14:00)
--- OUTSIDE RECORDS SUMMARY | 2024-03-17 14:11 | External Medical Summary ---
Author Name Unknown Address Unknown Organization [id number]:LABORATORY [facility] [place] - [address] [place] [address] Laboratory Report Ordering Provider Test Date Status CHRISTIANO BRADY 03/16/2024 06:38:00 Final Observation Date Value Abnormality Reference (Units ) Status BUN 03/16/2024 06:38:00 36 Above high normal 6-20 (mg/dL) Final Creatinine 03/16/2024 06:38:00 6.9 Above high normal 0.6-1.2 (mg/dL) Final Glomerular filtration rate/1.73 sq M.predicted [Volume Rate/Area] in Serum, Plasma or Blood by Creatinine-based formula (CKD-EPI) 03/16/2024 06:38:00 9 Below low normal >=60 (mL/min) Final eGFR is calculated based on the CKD-EPI 2020 equation Sodium 03/16/2024 06:38:00 137 135-146 (m mol/L) Final Potassium 03/16/2024 06:38:00 3.9 3.5-5.1 (m mol/L) Final Cl 03/16/2024 06:38:00 96 Below low normal 98- 107 (mmol/L) Final CO2 03/16/2024 06:38:00 22 22-32 (mmo l/L) Final Anion gap 03/16/2024 06:38:00 19 Above high normal 7- 15 (mmol/L) Final Glucose 03/16/2024 06:38:00 104 70-120 (mg /dL) Final Calcium 03/16/2024 06:38:00 9.7 8.4-10.2 ( mg/dL) Final Performing Location LAB[facility]ATORY [facility] - [address] [place] [address]
--- OUTSIDE RECORDS SUMMARY | 2024-03-17 14:11 | External Medical Summary ---
Author Name Unknown Address Unknown Organization [id number]:LABORATORY [facility] [place] - [address] [place] [address] Laboratory Report Ordering Provider Test Date Status TARIK FONTENOT 03/16/2024 11:22:00 Final Observation Date Value Abnormality Reference (Units ) Status Hemoglobin 03/16/2024 11:22:00 7.9 Below low normal 14 .0-16.8 (g/dL) Final HCT 03/16/2024 11:22:00 25.5 Below low normal 40. 0-48.4 (%) Final Performing Location LABORATORY [facility] [place] - [address] [place] [address]
--- OUTSIDE RECORDS SUMMARY | 2024-03-17 14:11 | External Medical Summary ---
Author Name Unknown Address Unknown Organization [id number]:LAB[facility]ATORY [facility] [facility] [address] - [address] [place] [id number] Laboratory Report Ordering Provider Test Date Status HY,DEPAMPHILIS 03/17/2024 06:11:39 Final Observation Date Value Abnormality Reference (Units ) Status BUN 03/17/2024 06:11:39 53 Above high normal 6-20 (mg/dL) Final Creatinine 03/17/2024 06:11:39 9.8 Above high normal 0.6-1.2 (mg/dL) Final Glomerular filtration rate/1.73 sq M.predicted [Volume Rate/Area] in Serum, Plasma or Blood by Creatinine-based formula (CKD-EPI) 03/17/2024 06:11:39 6 Below low normal >=60 (mL/min) Final eGFR is calculated based on the CKD-EPI 2020 equation Sodium 03/17/2024 06:11:39 137 135-146 (m mol/L) Final Potassium 03/17/2024 06:11:39 5.2 Above high normal 3. 5-5.1 (mmol/L) Final Cl 03/17/2024 06:11:39 92 Below low normal 98- 107 (mmol/L) Final CO2 03/17/2024 06:11:39 19 Below low normal 22- 32 (mmol/L) Final Anion gap 03/17/2024 06:11:39 26 Above high normal 7- 15 (mmol/L) Final Glucose 03/17/2024 06:11:39 109 70-120 (mg /dL) Final Calcium 03/17/2024 06:11:39 10.2 8.4-10.2 ( mg/dL) Final Performing Location LABORATORY [facility] [facility] [address] - [address] [place] [id number]
--- OUTSIDE RECORDS SUMMARY | 2024-03-17 14:11 | External Medical Summary ---
Author Name Unknown Address Unknown Organization [id number][facility] [address] [place] [id number] Laboratory Report Ordering Provider Test Date Status HY,DEPAMPHILIS 03/17/2024 06:11:39 Final Observation Date Value Abnormality Reference (Units ) Status WBC, Total 03/17/2024 06:11:39 18.05 Above high normal 4 .00-10.80 (K/uL) Final RBC 03/17/2024 06:11:39 3.03 4.50-5.25 (M/uL) Final Hemoglobin 03/17/2024 06:11:39 8.9 Below low normal 14 .0-16.8 (g/dL) Final HCT 03/17/2024 06:11:39 28.6 Below low normal 40. 0-48.4 (%) Final MCV 03/17/2024 06:11:39 94.4 82.0-99.5 (fL) Final MCH 03/17/2024 06:11:39 29.4 27.0-34.0 (pg) Final MCHC 03/17/2024 06:11:39 31.1 32.0-36.0 (g/dL) Final RDW 03/17/2024 06:11:39 17.2 11.5-15.5 (%) Final Platelets 03/17/2024 06:11:39 352 140-400 (K /uL) Final MPV 03/17/2024 06:11:39 10.1 6.6-11.1 ( fL) Final Performing Location [facility]ATORY [facility] [address] [place] [id number]
--- OUTSIDE RECORDS SUMMARY | 2024-03-17 14:11 | External Medical Summary ---
Author Name Unknown Address Unknown Organization K0G[facility] [address] [place] [id number] Laboratory Report Ordering Provider Test Date Status JUAN HOLDEN 03/17/2024 06:11:39 Final Observation Date Value Abnormality Reference (Units ) Status Albumin 03/17/2024 06:11:39 4.4 3.8-5.0 (g /dL) Final Performing Location LAB[facility]ATORY [facility] [address] [place] [id number]
--- OUTSIDE RECORDS SUMMARY | 2024-03-17 14:11 | External Medical Summary ---
Author Name Unknown Address Unknown Organization K01[facility] [address] [place] [address] Laboratory Report Ordering Provider Test Date Status CHRISTIANO BRADY 03/16/2024 06:38:00 Final Observation Date Value Abnormality Reference (Units ) Status Magnesium 03/16/2024 06:38:00 2.5 1.5-2.6 (m g/dL) Final Performing Location [facility] - [address] [place] [address]
--- OUTSIDE RECORDS SUMMARY | 2024-03-17 14:11 | External Medical Summary ---
Author Name Unknown Address Unknown Organization [id number]:LABORATORY [facility] [place] - [address] [place] [address] [facility] [address] Laboratory Report Ordering Provider Test Date Status ASHLEY MONTERO 03/16/2024 06:38:00 Final Observation Date Value Abnormality Reference (Units ) Status WBC, Total 03/16/2024 06:38:00 12.01 Above high normal 4.00-10.80 (K/uL) Final RBC 03/16/2024 06:38:00 2.62 4.50-5.25 (M/uL) Final Hemoglobin 03/16/2024 06:38:00 7.7 Below low normal 14.0-16.8 (g/dL) Final HCT 03/16/2024 06:38:00 24.4 Below low normal 40.0-48.4 (%) Final MCV 03/16/2024 06:38:00 93.1 82.0-99.5 (fL) Final MCH 03/16/2024 06:38:00 29.4 27.0-34.0 (pg) Final MCHC 03/16/2024 06:38:00 31.6 32.0-36.0 (g/dL) Final RDW 03/16/2024 06:38:00 16.5 11.5-15.5 (%) Final Platelets 03/16/2024 06:38:00 219 140-400 (K/uL) Final MPV 03/16/2024 06:38:00 9.7 6.6-11.1 (fL) Final Nucleated erythrocytes/100 leukocytes [Ratio] in Blood by Automated count 03/16/2024 06:38:00 0 <=0 (/100 WBCs) Final Performing Location LABORATORY [facility] [place] - [address] [facility] [address]
--- OUTSIDE RECORDS SUMMARY | 2024-03-17 14:11 | External Medical Summary ---
Author Name Unknown Address Unknown Organization K01:[facility] - [address] [place] [address] Laboratory Report Ordering Provider Test Date Status CHRISTIANO BRADY 03/16/2024 06:38:00 Final Observation Date Value Abnormality Reference (Units ) Status Phosphate 03/16/2024 06:38:00 5.1 Above high normal 2. 5-4.8 (mg/dL) Final Performing Location [facility] [place] [address] [place] [address]
--- OUTSIDE RECORDS SUMMARY | 2024-03-17 14:12 | External Medical Summary ---
Author Name Unknown Address Unknown Organization K01:[facility] - [address] [place] [address] Laboratory Report Ordering Provider Test Date Status CHRISTIANO BRADY 03/14/2024 06:22:00 Final Observation Date Value Abnormality Reference (Units ) Status Phosphate 03/14/2024 06:22:00 4.3 2.5-4.8 (m g/dL) Final Performing Location [facility] - [address] [place] [address]
--- OUTSIDE RECORDS SUMMARY | 2024-03-17 14:12 | External Medical Summary ---
Author Name Unknown Address Unknown Organization K01:[facility] [place] - [facility] [address] [facility] [address] [facility] [address] Laboratory Report Ordering Provider Test Date Status ASHLEY MONTERO 03/14/2024 06:22:00 Final Observation Date Value Abnormality Reference (Units ) Status WBC, Total 03/14/2024 06:22:00 10.72 4.00-10.80 (K/uL) Final RBC 03/14/2024 06:22:00 2.54 4.50-5.25 (M/uL) Final Hemoglobin 03/14/2024 06:22:00 7.6 Below low normal 14.0-16.8 (g/dL) Final HCT 03/14/2024 06:22:00 24.1 Below low normal 40.0-48.4 (%) Final MCV 03/14/2024 06:22:00 94.9 82.0-99.5 (fL) Final MCH 03/14/2024 06:22:00 29.9 27.0-34.0 (pg) Final MCHC 03/14/2024 06:22:00 31.5 32.0-36.0 (g/dL) Final RDW 03/14/2024 06:22:00 16.4 11.5-15.5 (%) Final Platelets 03/14/2024 06:22:00 201 140-400 (K/uL) Final MPV 03/14/2024 06:22:00 9.3 6.6-11.1 (fL) Final Nucleated erythrocytes/100 leukocytes [Ratio] in Blood by Automated count 03/14/2024 06:22:00 0 <=0 (/100 WBCs) Final Performing Location [facility] [place] [address] [facility] [address]
--- OUTSIDE RECORDS SUMMARY | 2024-03-17 14:12 | External Medical Summary ---
Author Name Unknown Address Unknown Organization K01:[facility] - [address] [place] [address] Laboratory Report Ordering Provider Test Date Status CHRISTIANO BRADY 03/15/2024 06:20:00 Final Observation Date Value Abnormality Reference (Units ) Status Phosphate 03/15/2024 06:20:00 6.6 Above high normal 2. 5-4.8 (mg/dL) Final Performing Location [facility] - [address] [place] [address]
--- OUTSIDE RECORDS SUMMARY | 2024-03-17 14:12 | External Medical Summary ---
Author Name Unknown Address Unknown Organization K01:LABORATORY [facility] [place] - [address] [place], [place] [address] [address] Laboratory Report Ordering Provider Test Date Status ASHLEY MONTERO 03/13/2024 04:27:00 Final Observation Date Value Abnormality Reference (Units ) Status WBC, Total 03/13/2024 04:27:00 11.30 Above high normal 4.00-10.80 (K/uL) Final RBC 03/13/2024 04:27:00 2.51 4.50-5.25 (M/uL) Final Hemoglobin 03/13/2024 04:27:00 7.3 Below low normal 14.0-16.8 (g/dL) Final HCT 03/13/2024 04:27:00 23.9 Below low normal 40.0-48.4 (%) Final MCV 03/13/2024 04:27:00 95.2 82.0-99.5 (fL) Final MCH 03/13/2024 04:27:00 29.1 27.0-34.0 (pg) Final MCHC 03/13/2024 04:27:00 30.5 32.0-36.0 (g/dL) Final RDW 03/13/2024 04:27:00 16.1 11.5-15.5 (%) Final Platelets 03/13/2024 04:27:00 207 140-400 (K/uL) Final MPV 03/13/2024 04:27:00 9.5 6.6-11.1 (fL) Final Nucleated erythrocytes/100 leukocytes [Ratio] in Blood by Automated count 03/13/2024 04:27:00 0 <=0 (/100 WBCs) Final Performing Location LABORATORY [facility] [place] - [address] [facility] [address]
--- OUTSIDE RECORDS SUMMARY | 2024-03-17 14:12 | External Medical Summary ---
Author Name Unknown Address Unknown Organization K01:LABORATORY [facility] [place] - [address] [place] [address] Laboratory Report Ordering Provider Test Date Status CHRISTIANO BRADY 03/14/2024 06:22:00 Final Observation Date Value Abnormality Reference (Units ) Status BUN 03/14/2024 06:22:00 40 Above high normal 6-20 (mg/dL) Final Creatinine 03/14/2024 06:22:00 6.3 Above high normal 0.6-1.2 (mg/dL) Final Glomerular filtration rate/1.73 sq M.predicted [Volume Rate/Area] in Serum, Plasma or Blood by Creatinine-based formula (CKD-EPI) 03/14/2024 06:22:00 11 Below low normal >=60 (mL/min) Final eGFR is calculated based on the CKD-EPI 2020 equation Sodium 03/14/2024 06:22:00 137 135-146 (m mol/L) Final Potassium 03/14/2024 06:22:00 4.0 3.5-5.1 (m mol/L) Final Cl 03/14/2024 06:22:00 98 98-107 (mm ol/L) Final CO2 03/14/2024 06:22:00 22 22-32 (mmo l/L) Final Anion gap 03/14/2024 06:22:00 17 Above high normal 7- 15 (mmol/L) Final Glucose 03/14/2024 06:22:00 102 70-120 (mg /dL) Final Calcium 03/14/2024 06:22:00 9.6 8.4-10.2 ( mg/dL) Final Performing Location LAB[facility]ATORY [facility] [place] - [address] [place] [address]
--- OUTSIDE RECORDS SUMMARY | 2024-03-17 14:12 | External Medical Summary ---
Author Name Unknown Address Unknown Organization K01:LABORATORY [facility] [place] - [address] [place] [address] Laboratory Report Ordering Provider Test Date Status SAMMY BAUMAN 03/12/2024 00:43:00 Final CRRT Labs: Check at initiati on of CRRT, One hour after CRRT and Every 6 hours
Labs to be Drawn Peripherally Observation Date Value Abnormality Reference (Units ) Status Magnesium 03/12/2024 00:43:00 2.4 1.5-2.6 (m g/dL) Final Performing Location LABORATORY [facility] [place] - [address] [place] [address]
--- OUTSIDE RECORDS SUMMARY | 2024-03-17 14:12 | External Medical Summary ---
Author Name Unknown Address Unknown Organization K01:[facility] [place] - [address] [place] [address] Laboratory Report Ordering Provider Test Date Status MERNASAMMY 03/11/2024 18:40:00 Final CRRT Labs: Check at initiati on of CRRT, One hour after CRRT and Every 6 hours
Labs to be Drawn Peripherally Observation Date Value Abnormality Reference (Units ) Status BUN 03/11/2024 18:40:00 47 Above high normal 6-20 (mg/dL) Final Creatinine 03/11/2024 18:40:00 5.1 Above high normal 0.6-1.2 (mg/dL) Final Glomerular filtration rate/1.73 sq M.predicted [Volume Rate/Area] in Serum, Plasma or Blood by Creatinine-based formula (CKD-EPI) 03/11/2024 18:40:00 13 Below low normal >=60 (mL/min) Final eGFR is calculated based on the CKD-EPI 2020 equation Sodium 03/11/2024 18:40:00 138 135-146 (m mol/L) Final Potassium 03/11/2024 18:40:00 3.9 3.5-5.1 (m mol/L) Final Cl 03/11/2024 18:40:00 100 98-107 (mm ol/L) Final CO2 03/11/2024 18:40:00 24 22-32 (mmo l/L) Final Anion gap 03/11/2024 18:40:00 14 7-15 (mmol /L) Final Glucose 03/11/2024 18:40:00 117 70-120 (mg /dL) Final Calcium 03/11/2024 18:40:00 9.2 8.4-10.2 ( mg/dL) Final Performing Location [facility] [place] - [address] [facility] [address]
--- OUTSIDE RECORDS SUMMARY | 2024-03-17 14:12 | External Medical Summary ---
Author Name Unknown Address Unknown Organization K01:[facility] - [address] [place] [address] Laboratory Report Ordering Provider Test Date Status CHRISTIANO BRADY 03/12/2024 06:22:00 Final Observation Date Value Abnormality Reference (Units ) Status Phosphate 03/12/2024 06:22:00 2.9 2.5-4.8 (m g/dL) Final Performing Location [facility] - [address] [place] [address]
--- OUTSIDE RECORDS SUMMARY | 2024-03-17 14:12 | External Medical Summary ---
Author Name Unknown Address Unknown Organization K01:[facility] [place] [facility] [address] [facility] [address] [facility] [address] Laboratory Report Ordering Provider Test Date Status SAMMY BAUMAN 03/10/2024 18:43:00 Final CRRT Labs: Check at initiati on of CRRT, One hour after CRRT and Every 6 hours
Labs to be Drawn Peripherally
Send in a separate tube. Observation Date Value Abnormality Reference (Units ) Status Calcium.ionized [Moles/volume] in Blood by Ion-selective membrane electrode (ISE) 03/10/2024 18:43:00 1.08 Below low normal 1.13-1.32 (mmol/L) Final Performing Location [facility] [place] - [address] [place] [address]
--- OUTSIDE RECORDS SUMMARY | 2024-03-17 14:12 | External Medical Summary ---
Author Name Unknown Address Unknown Organization K01:LABORATORY [facility] [place] - [address] [place] [address] Laboratory Report Ordering Provider Test Date Status SAMMY BAUMAN 03/12/2024 00:43:00 Final CRRT Labs: Check at initiati on of CRRT, One hour after CRRT and Every 6 hours
Labs to be Drawn Peripherally Observation Date Value Abnormality Reference (Units ) Status BUN 03/12/2024 00:43:00 41 Above high normal 6-20 (mg/dL) Final Creatinine 03/12/2024 00:43:00 4.5 Above high normal 0.6-1.2 (mg/dL) Final Glomerular filtration rate/1.73 sq M.predicted [Volume Rate/Area] in Serum, Plasma or Blood by Creatinine-based formula (CKD-EPI) 03/12/2024 00:43:00 16 Below low normal >=60 (mL/min) Final eGFR is calculated based on the CKD-EPI 2020 equation Sodium 03/12/2024 00:43:00 139 135-146 (m mol/L) Final Potassium 03/12/2024 00:43:00 3.9 3.5-5.1 (m mol/L) Final Cl 03/12/2024 00:43:00 102 98-107 (mm ol/L) Final CO2 03/12/2024 00:43:00 25 22-32 (mmo l/L) Final Anion gap 03/12/2024 00:43:00 12 7-15 (mmol /L) Final Glucose 03/12/2024 00:43:00 106 70-120 (mg /dL) Final Calcium 03/12/2024 00:43:00 9.6 8.4-10.2 ( mg/dL) Final Performing Location LABORATORY [facility] [place] - [address] [place] [address]
--- OUTSIDE RECORDS SUMMARY | 2024-03-17 14:12 | External Medical Summary ---
Author Name Unknown Address Unknown Organization K01:LABORATORY [facility] [place] - [address] [place] [address] Laboratory Report Ordering Provider Test Date Status CHRISTIANO BRADY 03/13/2024 04:27:00 Final Observation Date Value Abnormality Reference (Units ) Status BUN 03/13/2024 04:27:00 47 Above high normal 6-20 (mg/dL) Final Creatinine 03/13/2024 04:27:00 5.8 Above high normal 0.6-1.2 (mg/dL) Final Glomerular filtration rate/1.73 sq M.predicted [Volume Rate/Area] in Serum, Plasma or Blood by Creatinine-based formula (CKD-EPI) 03/13/2024 04:27:00 12 Below low normal >=60 (mL/min) Final eGFR is calculated based on the CKD-EPI 2020 equation Sodium 03/13/2024 04:27:00 136 135-146 (m mol/L) Final Potassium 03/13/2024 04:27:00 4.2 3.5-5.1 (m mol/L) Final Cl 03/13/2024 04:27:00 98 98-107 (mm ol/L) Final CO2 03/13/2024 04:27:00 22 22-32 (mmo l/L) Final Anion gap 03/13/2024 04:27:00 16 Above high normal 7- 15 (mmol/L) Final Glucose 03/13/2024 04:27:00 95 70-120 (mg /dL) Final Calcium 03/13/2024 04:27:00 9.6 8.4-10.2 ( mg/dL) Final Performing Location LABORATORY [facility] [place] - [address] [place] [address]
--- OUTSIDE RECORDS SUMMARY | 2024-03-17 14:12 | External Medical Summary ---
Author Name Unknown Address Unknown Organization K01:LABORATORY [facility] [place] - [address] [place] [address] Laboratory Report Ordering Provider Test Date Status SAMMY BAUMAN 03/12/2024 00:43:00 Final CRRT Labs: Check at initiati on of CRRT, One hour after CRRT and Every 6 hours
Labs to be Drawn Peripherally Observation Date Value Abnormality Reference (Units ) Status Phosphate 03/12/2024 00:43:00 2.6 2.5-4.8 (m g/dL) Final Performing Location LABORATORY [facility] [place] - [address] [place] [address]
--- OUTSIDE RECORDS SUMMARY | 2024-03-17 14:12 | External Medical Summary ---
Author Name Unknown Address Unknown Organization K01:[facility] - [address] [place] [address] Laboratory Report Ordering Provider Test Date Status CHRISTIANO BRADY 03/13/2024 04:27:00 Final Observation Date Value Abnormality Reference (Units ) Status Magnesium 03/13/2024 04:27:00 2.7 Above high normal 1. 5-2.6 (mg/dL) Final Performing Location [facility] - [address] [place] [address]
--- OUTSIDE RECORDS SUMMARY | 2024-03-17 14:12 | External Medical Summary ---
Author Name Unknown Address Unknown Organization K01:LABORATORY [facility] [place] - [address] [place] [address] Laboratory Report Ordering Provider Test Date Status CHRISTIANO BRADY 03/12/2024 06:22:00 Final Observation Date Value Abnormality Reference (Units ) Status BUN 03/12/2024 06:22:00 36 Above high normal 6-20 (mg/dL) Final Creatinine 03/12/2024 06:22:00 3.9 Above high normal 0.6-1.2 (mg/dL) Final Glomerular filtration rate/1.73 sq M.predicted [Volume Rate/Area] in Serum, Plasma or Blood by Creatinine-based formula (CKD-EPI) 03/12/2024 06:22:00 19 Below low normal >=60 (mL/min) Final eGFR is calculated based on the CKD-EPI 2020 equation Sodium 03/12/2024 06:22:00 137 135-146 (m mol/L) Final Potassium 03/12/2024 06:22:00 4.2 3.5-5.1 (m mol/L) Final Cl 03/12/2024 06:22:00 100 98-107 (mm ol/L) Final CO2 03/12/2024 06:22:00 24 22-32 (mmo l/L) Final Anion gap 03/12/2024 06:22:00 13 7-15 (mmol /L) Final Glucose 03/12/2024 06:22:00 108 70-120 (mg /dL) Final Calcium 03/12/2024 06:22:00 9.7 8.4-10.2 ( mg/dL) Final Performing Location LABORATORY [facility] [place] - [address] [place] [address]
--- OUTSIDE RECORDS SUMMARY | 2024-03-17 14:12 | External Medical Summary ---
Author Name Unknown Address Unknown Organization K01:LABORATORY [facility] [place] - [facility] [address] [facility] [address] [facility] [address] Laboratory Report Ordering Provider Test Date Status ASHLEY MONTERO 03/15/2024 06:20:00 Final Observation Date Value Abnormality Reference (Units ) Status WBC, Total 03/15/2024 06:20:00 10.36 4.00-10.80 (K/uL) Final RBC 03/15/2024 06:20:00 2.57 4.50-5.25 (M/uL) Final Hemoglobin 03/15/2024 06:20:00 7.5 Below low normal 14.0-16.8 (g/dL) Final HCT 03/15/2024 06:20:00 24.0 Below low normal 40.0-48.4 (%) Final MCV 03/15/2024 06:20:00 93.4 82.0-99.5 (fL) Final MCH 03/15/2024 06:20:00 29.2 27.0-34.0 (pg) Final MCHC 03/15/2024 06:20:00 31.3 32.0-36.0 (g/dL) Final RDW 03/15/2024 06:20:00 16.0 11.5-15.5 (%) Final Platelets 03/15/2024 06:20:00 207 140-400 (K/uL) Final MPV 03/15/2024 06:20:00 9.7 6.6-11.1 (fL) Final Nucleated erythrocytes/100 leukocytes [Ratio] in Blood by Automated count 03/15/2024 06:20:00 0 <=0 (/100 WBCs) Final Performing Location LABORATORY [facility] [place] - [facility] [address] [facility] [address]
--- OUTSIDE RECORDS SUMMARY | 2024-03-17 14:12 | External Medical Summary ---
Author Name Unknown Address Unknown Organization K01:[facility] - [address] [place] [address] Laboratory Report Ordering Provider Test Date Status CHRISTIANO BRADY 03/13/2024 04:27:00 Final Observation Date Value Abnormality Reference (Units ) Status Phosphate 03/13/2024 04:27:00 4.0 2.5-4.8 (m g/dL) Final Performing Location [facility] - [address] [place] [address]
--- OUTSIDE RECORDS SUMMARY | 2024-03-17 14:12 | External Medical Summary ---
Author Name Unknown Address Unknown Organization K01:LABORATORY [facility] [place] - [address] [place] [address] Laboratory Report Ordering Provider Test Date Status SAMMY BAUMAN 03/11/2024 18:40:00 Final CRRT Labs: Check at initiati on of CRRT, One hour after CRRT and Every 6 hours
Labs to be Drawn Peripherally Observation Date Value Abnormality Reference (Units ) Status Phosphate 03/11/2024 18:40:00 2.6 2.5-4.8 (m g/dL) Final Performing Location LABORATORY [facility] [place] - [address] [place] [address]
--- OUTSIDE RECORDS SUMMARY | 2024-03-17 14:12 | External Medical Summary | Summary of Care ---
Author Name Unknown Organization [facility] Address [address] [place] [address] Phone [phone] Care Team Providers Care Dampproofer Name Role Phone Tomer Garner MD Primary Care Provider + [phone] Reason for Visit * Reason Onset Date Comments Information 03/12/2024 Inactive Encounter Details Date Type Department Care Team (Late st Contact Info) Description [facility] [address] [place] [address] Bernie Her, RN [address] [place] [id number] Information (Inactive ) Allergies No known active allergiesdocumented as of this encounter (statuses as of 03/12/2024) Medications Medication Sig Dispensed Refills Start Date End Date Status Febuxostat 80 MG Oral Tablet (Uloric)Indicatio ns:Chronic gout without tophus, unspecified cause, unspecified site Take 1 Tablet by mouth in the morning. 90 Tablet 3 03/23/2023 Suspended Additional Information Calcium Acetate (Phos Binder) 667 MG Oral Capsule (Phoslo) Take 3 Capsules by mouth with meals and snacks. 900 Capsule 3 07/18/2023 Suspended Additional Information Dialyvite Oral Tablet Take 1 Tablet by mouth in the morning. 30 Tablet 11 09/28/2023 Suspended Additional Information Syringe 21G X 1" 3 ML Retacrit 13.000 U weekly. 12 Each 6 12/04/2023 Suspended Additional Information Patient not taking.Reported on 02/08/2024 BD Insulin Syringe 25G X 5/8" 1 ML (Insulin Syringe-Needle U-100)Indications :ESRD on peritoneal dialysis (HCC) Use to inject Retacrit weekly 12 Each 12/20/2023 Suspended Additional Information Patient not taking.Reported on 02/08/2024 Lovastatin 10 MG Oral TabletIndications :Kidney replaced by transplant Take 1 Tablet by mouth in the morning. 90 Tablet 3 12/25/2023 Suspended Additional Information cycloSPORINE Modified 25 MG Oral CapsuleIndication s:Kidney replaced by transplant Take 2 capsules in the morning and 2 capsules in the evening 360 Capsule 3 12/25/2023 Suspended Additional Information Auryxia 1 GM 210 MG(Fe) Oral Tablet (Ferric Citrate) Take 1 Tablet by mouth with meals and snacks. 120 Tablet 11 12/26/2023 Suspended Additional Information BD Syringe Slip Tip 25G X 5/8" 1 ML (Tuberculin Syringe) Use to inject Retacrit weekly 12 Each 01/22/2024 Suspended Additional Information Patient not taking.Reported on 02/08/2024 Metoprolol Succinate ER 100 MG Oral Tablet Extended Release 24 Hour (toPROL XL) Take 1 Tablet by mouth in the morning. 12/23/2023 Suspended Cinacalcet HCl 60 MG Oral Tablet (Sensipar) Take 1 Tablet by mouth daily with dinner. 60 Tablet 11 02/08/2024 Suspended Additional Information Potassium Chloride [place] ER 20 MEQ Oral Tablet Extended Release (Klor-Con M20) Take 1 Tablet by mouth in the morning. Suspended CPAP every night at bedtime. 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 02/24/2024 Overview: Calcified emboli Stenosis of other vascular p rosthetic devices, implants and grafts, initial encounter 11/03/2023 Dependence on renal dialysis 11/03/2023 Diastolic congestive heart failure 11/03/2023 Immunosuppression 11/03/2023 Hypertensive chronic kidney disease with stage 5 chronic kidney disease or end stage renal disease 11/03/2023 ESRD on dialysis 11/03/2023 Chronic gout without tophus 11/03/2023 Baldo's granulomatosis with renal involvement 11/03/2023 Orthostatic hypotension 10/30/2023 Shock 10/29/2023 Hypovolemia 10/29/2023 Dialysis-associated peritonitis 10/28/2023 Anemia in ESRD (end-stage renal disease) 023 Anemia of chronic renal failure, stage 5 023 ESRD on peritoneal dialysis 02/21/2023 Body mass index (BMI) of 40.0 to 44.9 in adult 0 12/19/2022 Overview: Per Obesity protocol Bandemia 11/03/2022 Metabolic acidosis 11/03/2022 Hypokalemia 11/03/2022 ULICES (acute kidney injury) 10/31/2022 Gouty arthropathy 08/29/2016 ADVANCE DIRECTIVE INFORMATION 01/02/2009 Overview: No, Advance Directive brochure given to patient. Bacterial pneumonia 08/07/2002 Overview: h/o legionella pneumonia - prior to tx Encounter for long-term (current) use of medicat ions 08/07/2002 Overview: ICD-10 update of inactive term Type IV renal tubular acidosis 06/26/2002 Granulomatosis with polyangiitis 06/28/1996 Overview: ICD-10 update of inactive term Kidney replaced by transplant Primary hypertension Dyslipidemia, goal LDL below 160 documented as of this encounter (statuses as of 03/12/2024) Resolved Problems Problem Noted Date Diagnosed Date Resolved Date Sepsis 11/01/2022 11/03/2023 Pneumonia due to infectious organism 10/31/2022 11/03/2023 Dyslipidemia, goal to be determined 08/27/2009 11/21/2013 Overview: Per Lipid Taxonomy. PURE HYPERCHOLESTEROLEM 04/25/200208/11 Overview: Per Lipid Taxonomy. 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 1 Hemoptysis 04/11/1996 08/11/1996 Overview: ICD-10 update of inactive term documented as of this encounter (statuses as of 03/12/2024) Immunizations Name Administration Dates Next Due COVID-19 mRNA, LNP-s, No Pre serve, 2-Dose Series (Moderna) 11/23/2020,10/18/2020 DTP Vaccine 1981,1981,1981 HEP B - Hepatitis B (Dialysis/Immumocomp Pt) 05/02/2023,04/04/2023 MMR - Measles/Mumps/Rubella Vaccine 05/11/1982 OPV - Polio Virus Vaccine (Oral) 1981,04/11 Pneumococcal Conjugate Vacci ne, 20-valent ([id number]) 11/17/2022 Seasonal Influenza, PF, 6 M & above, IM , (FluLaval or Fluzone) 06/20/2023,06/24/2020 Seasonal Influenza, Quadriva lent Hd (Fluzone Hd) 06/24/2021 Seasonal Influenza, Split, I IV3, With Preserve, Inj 09/10/2012,08/11/2010,07/30/2007,2005 TDAP (age 10 and older)(Boostrix) 03/17/2020 TDAP, Age 7 and older, IM (Adacel) 01/02/2009 documented as of this encounter Social History Tobacco Use Types Packs/Day Years Used Date Smoking Tobacco: Never Passive Smoke Exposure: Never Smokeless Tobacco: Never Alcohol Use Standard Drinks/Week Comments No 0 (1 standard drink = 0.6 oz pur e alcohol) PHQ-2 Answer Date Recorded PHQ Adult Total Score 0 12/07/2023 Hunger Vital Sign Answer Date Recorded Within the past 12 months, y ou worried that your food would run out before you got the money to buy more. Never true 11/03/19 24 Within the past 12 months, t he food you bought just didn't last and you didn't have money to get more. Never true 11/03/2023 Childcare Answer Date Recorded Do you feel overwhelmed with taking care of a child, family member or friend? No 11/03/2023 Does your family need help f inding childcare? (Household - for ages 0-17 years) Not on file 11/03/2023 Clothing Answer Date Recorded Have you been unable to get clothing when it was really needed? No 11/03/2023 Is your family able to get c lothes or diapers when needed? (Household - for ages 0-17 years) Not on file 11/03/2023 Personal Safety Answer Date Recorded Do you feel unsafe or have concerns for your saf ety? No 11/03/2023 Do you have concerns for you r family's safety? (Household - for ages 0-17 years) Not on file 11/03/2023 Utilities Answer Date Recorded Do you have trouble paying y our heating, water, or electric bill? No 11/03/2023 Is your family able to pay t he heat, water, or electric bill? (Household - for ages 0-17 years) Not on file 11/03/2023 Does your family have access to good internet? (Household - for ages 0-17 years) Not on file 11/03/2023 Employment Status Answer Date Recorded Are you unemployed or without regular income? No 11/03/2023 Does the household have a re gular source of income? (Household - for ages 0-17 years) Not on file 11/03/2023 Social Connections Answer Date Recorded How often do you feel lonely or isolated from th ose around you? Never 11/03/2023 Financial Resource Strain Answer Date R ecorded Do you have any trouble payi ng for your medications, or do you think you might in the future? No 11/03/2023 Does your family have troubl e paying for medicine? (Household - for ages 0-17 years) Not on file 11/03/2023 Transportation Needs Answer Date Record ed READ ONLY Do you have troubl e getting a ride to medical visits or work? Never True 11/03/2023 Does your family have a hard time getting a ride to doctors visits? (Household - for ages 0-17 years) Not on file 11/03/2023 Has lack of transportation k ept you from medical appointments, meetings, work, or from getting things needed for daily living? Check all that apply. (Adult - for ages 18 years and over) Not on file 11/03/2023 Do you (or your family) have trouble finding or paying for a ride (transportation)? (Household - for ages 0-17 years) Not on file 11/03/2023 Housing Stability Answer Date Recorded Do you currently live in a s helter or have no steady place to sleep at night? No 11/03/2023 READ ONLY Do you think you a re at risk of becoming homeless? No 11/03/2023 Does your family worry about paying for your home or becoming homeless? (Household - for ages 0-17 years) Not on file 0 11/03/2023 Are you homeless or worried that you might be in the future? (Adult - for ages 18 years and over) Not on file Are you (or your family) barb eless or worried that you might be in the future? (Household - for ages 0-17 years) Not on file Food Insecurity Answer Date Recorded Do you need food for this week? No 11/03/2023 Are you able to get enough f ood for your family? (Household - for ages 0-17 years) Not on file 11/03/2023 Does your family need food t his week? (Household - for ages 0-17 years) Not on file 11/03/2023 Do you always have enough fo od for your family? (Household - for ages 0-17 years) Not on file 11/03/2023 Sex and Gender Information Value Date Recorded Sex Assigned at Male 04/10/2023 3:09 PM EDT Gender Identity Male 04/10/2023 3:09 PM EDT Sexual Orientation Straight 04/10/2023 3: 09 PM EDT Job Start Date Occupation Industry Not on file Not on file Not on file documented as of this encounter Functional Status Functional Status Response Date of Assess ment Are you deaf or do you have serious difficulty h earing? No 11/01/2022 Are you blind or do you have serious difficulty seeing, even when wearing glasses? No 11/01/2022 Do you have serious difficul ty walking or climbing stairs? (5 years old or older) No 11/01/2022 Do you have difficulty dress ing or bathing? (5 years old or older) No 11/01/2022 Because of a physical, menta l, or emotional condition, do you have difficulty doing errands alone such as visiting a doctor s office or shopping? (15 years old or older) No 11/01/19 23 Cognitive Status Response Date of Assessm ent Because of a physical, menta l, or emotional condition, do you have serious difficulty concentrating, remembering, or making decisions? (5 years old or older) No 11/01/2022 documented as of this encounter Miscellaneous Notes * Telephone Encounter - Bernie Her RN - 03/12/2024 11:31 AM EDT Patient in ICU possible stroke will make inactive at this time until cleared and in better health. Bernie Her RN documented in this encounter Plan of Treatment Upcoming Encounters Date Type Department Care Team (Late st Contact Info) Description 04/12/2024 9:20 AM EDT Office Visit Neurosurgery, [facility] [address] [place] [address] Latasha Castellanos PA-C [address] [place] [address] 04/15/2024 1:00 PM EDT Hospital Encounter Radiology, [facility] [address] [place] [address] 04/16/2024 11:00 AM EDT Office Visit Transplant Clinic, [facility] [address] [place] [address] Gutierrez Monae MD [address] [place] [address] Win Julio MD [address] [place] [address] Nurse [facility] [address], [place] [phone] Chana Robin, ANIMAL DAYCARE PROVIDER [address], [place] [phone] 04/16/2024 2:50 PM EDT Laboratory Outpatient Laboratory, [facility] [address] [place] [address] [facility], Lab B1a [address], [place] [phone] 04/17/2024 1:00 PM EDT Appointment Radiology, [facility] [address], [place] [phone] 04/29/2024 1:00 PM EDT Office Visit Home Dialysis [address], [place] [address] [address] [place] [address] [facility], Peritoneal Dialysis [address], [place] [phone] 05/27/2024 12:40 PM EDT Nutrition Services Nutrition & Weight Management, [facility] [address], [place] [phone] Jaz Best, RDN [address], [place] [phone] Health Maintenance Due Date Last Done Comments COVID-19 Vaccine (3 - Moderna risk series) 12/21/2020 11/23/2020, 10/18/2020 Hepatitis B (3 of 4 - Risk Dialysis Recombivax 3-dose series) 10/05/2023 05/02/2023, 04/04/2023 Influenza Vaccine (FLU shot) (#1) 2024 06/20/2023, 06/24/2021, 06/24/2020, Additional history exists Depression Screening 12/06/2024 12/07/2023 Diabetes Screening 03/12/2027 03/12/2024, 0 03/12/2024, 03/11/2024, Additional history exists DTaP,Tdap,and Td Vaccines (6 - Td or Tdap) 03/17/2030 03/17/2020, 01/02/2009, 1981, Additional history exists Albumin/Creatinine Ratio Discontinued 023, 01/11/2022, 11/02/2021, Additional history exists Pneumococcal Vaccine: Pediatrics (0 to 5 Years) and At-Risk Patients (6 to 64 Years) Completed 11/17/2022, 02/03/2004 GARDASIL-HPV IMMUNIZATION SERIES Aged Out No longer eligible based on patient's age to complete this topic MENINGOCOCCAL (MENACTRA/MENVEO) Aged Out No longer eligible based on patient's age to complete this topic documented as of this encounter Medical Devices Not on filedocumented as of this encounter Advance Directives * Full Code (Latest Code Status on File) Date Activated Date Inactivated Comments 02/24/2024 8:38 AM This order ref lects the patients wishes and were consensually agreed upon. Question Answer Comments Discussion of Advance Direct shayy occurred with: Not Discussed due to patient's condition * Full Code Date Activated Date Inactivated Comments 02/24/2024 5:01 AM 02/24/2024 8:38 AM This order r eflects the patients wishes and were consensually agreed upon. Question Answer Comments Discussion of Advance Directives occurred with: Family * Full Code Date Activated Date Inactivated Comments 10/28/2023 5:15 PM 10/31/2023 3:17 PM This order r eflects the patients wishes and were consensually agreed upon. Question Answer Comments Discussion of Advance Directives occurred with: Patient * Full Code Date Activated Date Inactivated Comments 08/21/2023 3:00 PM 08/21/2023 11:14 PM This orde r reflects the patients wishes and were consensually agreed upon. Question Answer Comments Discussion of Advance Directives occurred with: Patient * Full Code Date Activated Date Inactivated Comments 11/01/2022 10:32 PM 11/07/2022 3:42 PM This order reflects the patients wishes and were consensually agreed upon. Question Answer Comments Discussion of Advance Directives occurred with: Patient Care Teams Dampproofer Relationship Specialty Start Date End Date Tomer Garner MD [address] [place] [address] PCP - General 09/19/02 documented as of this encounter
--- OUTSIDE RECORDS SUMMARY | 2024-03-17 14:12 | External Medical Summary ---
Author Name Unknown Address Unknown Organization [id number]:[facility] [place] [facility] [address] [facility] [address] Laboratory Report Ordering Provider Test Date Status SAMMY BAUMAN 03/12/2024 06:22:00 Final CRRT Labs: check once daily if not done already
Labs to be Drawn Peripherally Observation Date Value Abnormality Reference (Units ) Status Albumin 03/12/2024 06:22:00 3.4 Below low normal 3.8-5.0 (g/dL) Final AST (Aspartate aminotransferase) 03/12/2024 06:22:00 57 Above high normal 10-50 (U/L) Final Result may be falsely elevat ed due to hemolysis. Alk Phos 03/12/2024 06:22:00 183 Above high normal 35 -130 (U/L) Final ALT (Alanine aminotransferase) 03/12/2024 06:22:00 48 10-50 (U/L) Fin al Bilirubin, Total 03/12/2024 06:22:00 0.8 <=1 .2 (mg/dL) Final Bilirubin, Direct 03/12/2024 06:22:00 0.4 Above high n ormal 0.0-0.3 (mg/dL) Final Result may be falsely decrea sed due to hemolysis. Protein 03/12/2024 06:22:00 6.8 6.0-8.3 (g /dL) Final Performing Location [facility] [place] [address] [facility] [address]
--- OUTSIDE RECORDS SUMMARY | 2024-03-17 14:12 | External Medical Summary ---
Author Name Unknown Address Unknown Organization [id number]:[facility] [place] [address] [place] [address] Laboratory Report Ordering Provider Test Date Status SAMMY BAUMAN 03/11/2024 18:40:00 Final CRRT Labs: Check at initiati on of CRRT, One hour after CRRT and Every 6 hours
Labs to be Drawn Peripherally Observation Date Value Abnormality Reference (Units ) Status Magnesium 03/11/2024 18:40:00 2.5 1.5-2.6 (m g/dL) Final Performing Location [facility] [place] [address] [place] [address]
--- OUTSIDE RECORDS SUMMARY | 2024-03-17 14:12 | External Medical Summary ---
Author Name Unknown Address Unknown Organization K01:LABORATORY [place] [address] [facility] [address] Laboratory Report Ordering Provider Test Date Status SAMMY BAUMAN 03/12/2024 00:43:00 Final CRRT Labs: Check at initiati on of CRRT, One hour after CRRT and Every 6 hours
Labs to be Drawn Peripherally
Send in a separate tube. Observation Date Value Abnormality Reference (Units ) Status Calcium.ionized [Moles/volume] in Blood by Ion-selective membrane electrode (ISE) 03/12/2024 00:43:00 1.24 1.13-1.32 (mmol/L) Final Performing Location [facility] [place] [address] [facility] [address]
--- OUTSIDE RECORDS SUMMARY | 2024-03-17 14:12 | External Medical Summary ---
Author Name Unknown Address Unknown Organization [id number]:[facility] [place] [address] [place] [address] Laboratory Report Ordering Provider Test Date Status CHRISTIANO BRADY 03/11/2024 04:28:00 Final Observation Date Value Abnormality Reference (Units ) Status BUN 03/11/2024 04:28:00 74 Above high normal 6-20 (mg/dL) Final Creatinine 03/11/2024 04:28:00 8.8 Above high normal 0.6-1.2 (mg/dL) Final Glomerular filtration rate/1.73 sq M.predicted [Volume Rate/Area] in Serum, Plasma or Blood by Creatinine-based formula (CKD-EPI) 03/11/2024 04:28:00 7 Below low normal >=60 (mL/min) Final eGFR is calculated based on the CKD-EPI 2020 equation Sodium 03/11/2024 04:28:00 141 135-146 (m mol/L) Final Potassium 03/11/2024 04:28:00 3.9 3.5-5.1 (m mol/L) Final Cl 03/11/2024 04:28:00 100 98-107 (mm ol/L) Final CO2 03/11/2024 04:28:00 24 22-32 (mmo l/L) Final Anion gap 03/11/2024 04:28:00 17 Above high normal 7- 15 (mmol/L) Final Glucose 03/11/2024 04:28:00 114 70-120 (mg /dL) Final Calcium 03/11/2024 04:28:00 8.8 8.4-10.2 ( mg/dL) Final Performing Location [facility] [place] [address] [place] [address]
--- OUTSIDE RECORDS SUMMARY | 2024-03-17 14:12 | External Medical Summary ---
Author Name Unknown Address Unknown Organization : Laboratory Report Ordering Provider Test Date Status RAJEEV CARLIN 03/13/2024 14:14:12 Final Observation Date Value Abnormality Reference (Units ) Status Glucose Point of Care 03/13/2024 14:14:12 93 70-120 (mg/dL) Final Performing Location
--- OUTSIDE RECORDS SUMMARY | 2024-03-17 14:12 | External Medical Summary ---
Author Name Unknown Address Unknown Organization K01:LABORATORY [facility] - [address] [place] [address] Laboratory Report Ordering Provider Test Date Status CHRISTIANO BRADY 03/14/2024 06:22:00 Final Observation Date Value Abnormality Reference (Units ) Status Magnesium 03/14/2024 06:22:00 2.5 1.5-2.6 (m g/dL) Final Performing Location LABORATORY [facility] - [address] [place] [address]
--- OUTSIDE RECORDS SUMMARY | 2024-03-17 14:12 | External Medical Summary ---
Author Name Unknown Address Unknown Organization [id number]:[facility] [place] [address] [facility] [address] Laboratory Report Ordering Provider Test Date Status SAMMY BAUMAN 03/12/2024 00:52:49 Final CRRT Labs: Check at initiati on of CRRT, One hour after CRRT and Every 6 hours
Labs to be Drawn Peripherally
Send in a separate tube. Observation Date Value Abnormality Reference (Units ) Status Body temperature 03/12/2024 00:52:49 37.0 (C) Final pH of Arterial blood 03/12/2024 00:52:49 7.444 7.350-7.450 (units) Final Carbon dioxide [Partial pressure] in Arterial blood 03/12/2024 00:52:49 41.4 35.0-45.0 (mmHg) Final Oxygen [Partial pressure] in Arterial blood 03/12/2024 00:52:49 73.6 Below low normal 75.0-100.0 (mmHg) Final Base excess, Arterial 03/12/2024 00:52:49 4.0 Above high normal -2.0-2.0 (mmol/L) Final Hemoglobin [Mass/volume] in Blood by Oximetry 03/12/2024 00:52:49 7.6 Below low normal 14.0-16.8 (g/dL) Final Oxyhemoglobin, Arterial (FO2HB) 03/12/2024 00:52:49 92.6 Below low normal 94.0-99.0 (% total Hgb) Final Carboxyhemoglobin 03/12/2024 00:52:49 2.9 Above high normal <=1.5 (% total Hgb) Final Smokers: 0-9.0 % Methemoglobin 03/12/2024 00:52:49 0.9 <=1.5 (% total Hgb) Final Deoxyhemoglobin/Hemog lobin.total in Arterial blood 03/12/2024 00:52:49 3.6 0.0-5.0 (% total Hgb) Final Oxygen content in Arterial blood 03/12/2024 00:52:49 10.0 Below low normal 15.0-24.0 (%vol) Final Oxygen/Total gas setting [Volume Fraction] Ventilator 03/12/2024 00:52:49 Not Provided (%) Final room air O2 FLOW, [facility]ERIAL - [facility] 03/12/2024 00:52:49 Not Provided (L/min) Final Bicarbonate, Venous, POC (i-STAT) 03/12/2024 00:52:49 27.9 23.0-31.0 (mmol/L) Fi nal Performing Location [facility] [place] [address] [facility] [address]
--- OUTSIDE RECORDS SUMMARY | 2024-03-17 14:12 | External Medical Summary ---
Author Name Unknown Address Unknown Organization K01:[facility] [place] [address] [place] [address] Laboratory Report Ordering Provider Test Date Status SAMMY BAUMAN 03/12/2024 06:22:00 Final CRRT Labs: check once daily if not done already
Labs to be Drawn Peripherally

Warfarin Therapy
INR: 2.0-3.0 conventional anticoagulation
INR: 2.5-3.5 high intensity anticoagulation Observation Date Value Abnormality Reference (Units ) Status PT 03/12/2024 06:22:00 14.8 11.6-15.2 (seconds) Final INR 03/12/2024 06:22:00 1.2 0.8-1.2 Final Performing Location [facility] [place] [address] [place] [address]
--- OUTSIDE RECORDS SUMMARY | 2024-03-17 14:12 | External Medical Summary ---
Author Name Unknown Address Unknown Organization K01:[facility] [place] [facility] [address] Laboratory Report Ordering Provider Test Date Status ASHLEY MONTERO 03/12/2024 06:22:00 Final Observation Date Value Abnormality Reference (Units ) Status WBC, Total 03/12/2024 06:22:00 11.80 Above high normal 4.00-10.80 (K/uL) Final RBC 03/12/2024 06:22:00 2.63 4.50-5.25 (M/uL) Final Hemoglobin 03/12/2024 06:22:00 7.9 Below low normal 14.0-16.8 (g/dL) Final HCT 03/12/2024 06:22:00 25.3 Below low normal 40.0-48.4 (%) Final MCV 03/12/2024 06:22:00 96.2 82.0-99.5 (fL) Final MCH 03/12/2024 06:22:00 30.0 27.0-34.0 (pg) Final MCHC 03/12/2024 06:22:00 31.2 32.0-36.0 (g/dL) Final RDW 03/12/2024 06:22:00 16.0 11.5-15.5 (%) Final Platelets 03/12/2024 06:22:00 195 140-400 (K/uL) Final MPV 03/12/2024 06:22:00 10.1 6.6-11.1 (fL) Final Nucleated erythrocytes/100 leukocytes [Ratio] in Blood by Automated count 03/12/2024 06:22:00 0 <=0 (/100 WBCs) Final Performing Location LAB[facility]ORY [facility] [place] [address] [facility] [address]
--- OUTSIDE RECORDS SUMMARY | 2024-03-17 14:12 | External Medical Summary ---
Author Name Unknown Address Unknown Organization K01:[facility] - [address] [place] [address] Laboratory Report Ordering Provider Test Date Status CHRISTIANO BRADY 03/11/2024 04:28:00 Final Observation Date Value Abnormality Reference (Units ) Status Phosphate 03/11/2024 04:28:00 3.0 2.5-4.8 (m g/dL) Final Performing Location [facility] - [address] [place] [address]
--- OUTSIDE RECORDS SUMMARY | 2024-03-17 14:12 | External Medical Summary ---
Author Name Unknown Address Unknown Organization [id number]:[facility]ATORY [facility] [place] - [address] [place] [address] [place] [address] Laboratory Report Ordering Provider Test Date Status CHRISTIANO BRADY 03/15/2024 06:20:00 Final Observation Date Value Abnormality Reference (Units ) Status BUN 03/15/2024 06:20:00 61 Above high normal 6-20 (mg/dL) Final Creatinine 03/15/2024 06:20:00 9.1 Above high normal 0.6-1.2 (mg/dL) Final Glomerular filtration rate/1.73 sq M.predicted [Volume Rate/Area] in Serum, Plasma or Blood by Creatinine-based formula (CKD-EPI) 03/15/2024 06:20:00 7 Below low normal >=60 (mL/min) Final eGFR is calculated based on the CKD-EPI 2020 equation Sodium 03/15/2024 06:20:00 136 135-146 (m mol/L) Final Potassium 03/15/2024 06:20:00 4.5 3.5-5.1 (m mol/L) Final Cl 03/15/2024 06:20:00 97 Below low normal 98- 107 (mmol/L) Final CO2 03/15/2024 06:20:00 18 Below low normal 22- 32 (mmol/L) Final Anion gap 03/15/2024 06:20:00 21 Above high normal 7- 15 (mmol/L) Final Glucose 03/15/2024 06:20:00 93 70-120 (mg /dL) Final Calcium 03/15/2024 06:20:00 9.7 8.4-10.2 ( mg/dL) Final Performing Location [facility]ORY [facility] [place] - [address] [place] [address]
--- OUTSIDE RECORDS SUMMARY | 2024-03-17 14:12 | External Medical Summary ---
Author Name Unknown Address Unknown Organization K01:[facility] - [address] [place] [address] Laboratory Report Ordering Provider Test Date Status CHRISTIANO BRADY 03/15/2024 06:20:00 Final Observation Date Value Abnormality Reference (Units ) Status Magnesium 03/15/2024 06:20:00 2.9 Above high normal 1. 5-2.6 (mg/dL) Final Performing Location [facility] - [address] [place] [address]
--- OUTSIDE RECORDS SUMMARY | 2024-03-17 14:12 | External Medical Summary ---
Author Name Unknown Address Unknown Organization K01:[facility] [place] [address] [place] [address] Laboratory Report Ordering Provider Test Date Status SAMMY BAUMAN 03/12/2024 06:22:00 Final CRRT Labs: check once daily if not done already
Labs to be Drawn Peripherally

Anticoagulation may affect testing. Refer to [email or web address] Test Catalog for a list of effects. Observation Date Value Abnormality Reference (Units ) Status aPTT panel - Platelet poor plasma 03/12/2024 06:22:00 39 Above high normal 21-38 (seconds) Final Performing Location LABORATORY [facility] [place] - [facility] [address] [place] [address]
--- OUTSIDE RECORDS SUMMARY | 2024-03-17 14:12 | External Medical Summary ---
Author Name Unknown Address Unknown Organization K01:[facility]ORY [place] [address] [facility] [address] Laboratory Report Ordering Provider Test Date Status SAMMY BAUMAN 03/12/2024 06:22:00 Final CRRT Labs: Check at initiati on of CRRT, One hour after CRRT and Every 6 hours
Labs to be Drawn Peripherally
Send in a separate tube. Observation Date Value Abnormality Reference (Units ) Status Calcium.ionized [Moles/volume] in Blood by Ion-selective membrane electrode (ISE) 03/12/2024 06:22:00 1.28 1.13-1.32 (mmol/L) Final Performing Location [facility] [place] [address] [facility] [address]
--- OUTSIDE RECORDS SUMMARY | 2024-03-17 14:12 | External Medical Summary ---
Author Name Unknown Address Unknown Organization K01:[facility] - [address] [place] [address] Laboratory Report Ordering Provider Test Date Status CHRISTIANO BRADY 03/11/2024 04:28:00 Final Observation Date Value Abnormality Reference (Units ) Status Magnesium 03/11/2024 04:28:00 2.5 1.5-2.6 (m g/dL) Final Performing Location [facility] - [address] [place] [address]
--- OUTSIDE RECORDS SUMMARY | 2024-03-17 14:12 | External Medical Summary ---
Author Name Unknown Address Unknown Organization K01:[facility] [place] [address] [place], [place] [address] [address] Laboratory Report Ordering Provider Test Date Status ASHLEY MONTERO 03/11/2024 04:28:00 Final Observation Date Value Abnormality Reference (Units ) Status WBC, Total 03/11/2024 04:28:00 15.57 Above high normal 4.00-10.80 (K/uL) Final RBC 03/11/2024 04:28:00 2.53 4.50-5.25 (M/uL) Final Hemoglobin 03/11/2024 04:28:00 7.6 Below low normal 14.0-16.8 (g/dL) Final HCT 03/11/2024 04:28:00 24.1 Below low normal 40.0-48.4 (%) Final MCV 03/11/2024 04:28:00 95.3 82.0-99.5 (fL) Final MCH 03/11/2024 04:28:00 30.0 27.0-34.0 (pg) Final MCHC 03/11/2024 04:28:00 31.5 32.0-36.0 (g/dL) Final RDW 03/11/2024 04:28:00 16.4 11.5-15.5 (%) Final Platelets 03/11/2024 04:28:00 247 140-400 (K/uL) Final MPV 03/11/2024 04:28:00 9.8 6.6-11.1 (fL) Final Nucleated erythrocytes/100 leukocytes [Ratio] in Blood by Automated count 03/11/2024 04:28:00 0 <=0 (/100 WBCs) Final Performing Location [facility] [place] [address] [facility] [address]
--- OUTSIDE RECORDS SUMMARY | 2024-03-17 14:12 | External Medical Summary ---
Author Name Unknown Address Unknown Organization K01:[facility] - [address] [place] [address] Laboratory Report Ordering Provider Test Date Status CHRISTIANO BRADY 03/12/2024 06:22:00 Final Observation Date Value Abnormality Reference (Units ) Status Magnesium 03/12/2024 06:22:00 2.5 1.5-2.6 (m g/dL) Final Performing Location [facility] - [address] [place] [address]
--- OUTSIDE RECORDS SUMMARY | 2024-03-17 14:12 | External Medical Summary ---
Author Name Unknown Address Unknown Organization K01:[facility] [place] [address] [facility] [address] Laboratory Report Ordering Provider Test Date Status SAMMY BAUMAN 03/10/2024 18:43:00 Final CRRT Labs: check once daily if not done already
Labs to be Drawn Peripherally Observation Date Value Abnormality Reference (Units ) Status SYNC LEUKOCYTES IN BLOOD BY AUTOMATED COUNT 03/10/2024 18:43:00 18.49 Above high normal 4.00-10.80 (K/uL) Final Segs 03/10/2024 18:43:00 72.2 40.0-75.0 (%) Final Lymphs % 03/10/2024 18:43:00 13.1 Below low normal 18.0-42.0 (%) Final Monos 03/10/2024 18:43:00 9.6 1.0-11.0 (%) Final Eosinophils 03/10/2024 18:43:00 3.6 0.0-6.0 (%) Final Basos 03/10/2024 18:43:00 0.7 0.0-2.0 (%) Final Immature Granulocyte, Percent 03/10/2024 18:43:00 0.8 0.0-2.0 (%) Final Absolute Segs 03/10/2024 18:43:00 13.35 Above high normal 1.80-7.70 (K/uL) Final Lymphs, absolute 03/10/2024 18:43:00 2.42 1.00-4.80 (K/ul) Final Monos, Abs 03/10/2024 18:43:00 1.78 Above high normal 0.00-1.10 (K/uL) Final Eos, Abs 03/10/2024 18:43:00 0.67 0.00-0.70 (K/uL) Final Basos, Abs 03/10/2024 18:43:00 0.13 0.00-0.20 (K/uL) Final Immature Granulocytes, Number 03/10/2024 18:43:00 0.14 0.00-0.20 (K/uL) Final Performing Location [facility] [place] [facility] [address] [facility] [address]
--- OUTSIDE RECORDS SUMMARY | 2024-03-17 14:12 | External Medical Summary ---
Author Name Unknown Address Unknown Organization K01:[facility]ORY [place] [address] [facility] [address] Laboratory Report Ordering Provider Test Date Status SAMMY BAUMAN 03/11/2024 18:40:00 Final CRRT Labs: Check at initiati on of CRRT, One hour after CRRT and Every 6 hours
Labs to be Drawn Peripherally
Send in a separate tube. Observation Date Value Abnormality Reference (Units ) Status Calcium.ionized [Moles/volume] in Blood by Ion-selective membrane electrode (ISE) 03/11/2024 18:40:00 1.25 1.13-1.32 (mmol/L) Final Performing Location LABORATORY [facility] - [address] [facility] [address]
--- OUTSIDE RECORDS SUMMARY | 2024-03-17 14:13 | External Medical Summary ---
Author Name Unknown Address Unknown Organization K01:[facility] - [address] [place] [address] Laboratory Report Ordering Provider Test Date Status CHRISTIANO BRADY 03/05/2024 04:12:03 Final Observation Date Value Abnormality Reference (Units ) Status Phosphate 03/05/2024 04:12:03 6.3 Above high normal 2. 5-4.8 (mg/dL) Final Performing Location [facility] - [address] [place] [address]
--- OUTSIDE RECORDS SUMMARY | 2024-03-17 14:13 | External Medical Summary ---
Author Name Unknown Address Unknown Organization K01:LABORATORY [facility] [place] - [address] [place] [address] Laboratory Report Ordering Provider Test Date Status MERNASAMMY 03/10/2024 18:43:00 Final CRRT Labs: Check at initiati on of CRRT, One hour after CRRT and Every 6 hours
Labs to be Drawn Peripherally Observation Date Value Abnormality Reference (Units ) Status BUN 03/10/2024 18:43:00 103 Above high normal 6-20 (mg/dL) Final Creatinine 03/10/2024 18:43:00 13.1 Above high normal 0.6-1.2 (mg/dL) Final Glomerular filtration rate/1.73 sq M.predicted [Volume Rate/Area] in Serum, Plasma or Blood by Creatinine-based formula (CKD-EPI) 03/10/2024 18:43:00 4 Below low normal >=60 (mL/min) Final eGFR is calculated based on the CKD-EPI 2020 equation Sodium 03/10/2024 18:43:00 143 135-146 (m mol/L) Final Potassium 03/10/2024 18:43:00 4.2 3.5-5.1 (m mol/L) Final Cl 03/10/2024 18:43:00 99 98-107 (mm ol/L) Final CO2 03/10/2024 18:43:00 23 22-32 (mmo l/L) Final Anion gap 03/10/2024 18:43:00 21 Above high normal 7- 15 (mmol/L) Final Glucose 03/10/2024 18:43:00 101 70-120 (mg /dL) Final Calcium 03/10/2024 18:43:00 8.5 8.4-10.2 ( mg/dL) Final Performing Location LABORATORY [facility] [place] - [address] [place] [address]
--- OUTSIDE RECORDS SUMMARY | 2024-03-17 14:13 | External Medical Summary ---
Author Name Unknown Address Unknown Organization K01:[facility] - [address] [place] [address] Laboratory Report Ordering Provider Test Date Status CHRISTIANO BRADY 03/06/2024 04:32:00 Final Observation Date Value Abnormality Reference (Units ) Status Phosphate 03/06/2024 04:32:00 6.3 Above high normal 2. 5-4.8 (mg/dL) Final Performing Location [facility] [place] [address] [place] [address]
--- OUTSIDE RECORDS SUMMARY | 2024-03-17 14:13 | External Medical Summary ---
Author Name Unknown Address Unknown Organization K01:[facility]ORY [facility] [place] - [facility] [place] [address] [facility] [address] Laboratory Report Ordering Provider Test Date Status ASHLEY MONTERO 03/07/2024 04:30:00 Final Observation Date Value Abnormality Reference (Units ) Status WBC, Total 03/07/2024 04:30:00 9.40 4.00-10.80 (K/uL) Final RBC 03/07/2024 04:30:00 3.06 4.50-5.25 (M/uL) Final Hemoglobin 03/07/2024 04:30:00 9.3 Below low normal 14.0-16.8 (g/dL) Final HCT 03/07/2024 04:30:00 28.8 Below low normal 40.0-48.4 (%) Final MCV 03/07/2024 04:30:00 94.1 82.0-99.5 (fL) Final MCH 03/07/2024 04:30:00 30.4 27.0-34.0 (pg) Final MCHC 03/07/2024 04:30:00 32.3 32.0-36.0 (g/dL) Final RDW 03/07/2024 04:30:00 16.2 11.5-15.5 (%) Final Platelets 03/07/2024 04:30:00 219 140-400 (K/uL) Final MPV 03/07/2024 04:30:00 10.1 6.6-11.1 (fL) Final Nucleated erythrocytes/100 leukocytes [Ratio] in Blood by Automated count 03/07/2024 04:30:00 0 <=0 (/100 WBCs) Final Performing Location [facility]ORY [facility] [place] - [facility] [place] [address] [facility] [address]
--- OUTSIDE RECORDS SUMMARY | 2024-03-17 14:13 | External Medical Summary ---
Author Name Unknown Address Unknown Organization K01[facility] [address] [facility] [address] Laboratory Report Ordering Provider Test Date Status ASHLEY MONTERO 03/09/2024 04:34:00 Final Observation Date Value Abnormality Reference (Units ) Status WBC, Total 03/09/2024 04:34:00 15.31 Above high normal 4.00-10.80 (K/uL) Final RBC 03/09/2024 04:34:00 3.35 4.50-5.25 (M/uL) Final Hemoglobin 03/09/2024 04:34:00 10.1 Below low normal 14.0-16.8 (g/dL) Final HCT 03/09/2024 04:34:00 32.4 Below low normal 40.0-48.4 (%) Final MCV 03/09/2024 04:34:00 96.7 82.0-99.5 (fL) Final MCH 03/09/2024 04:34:00 30.1 27.0-34.0 (pg) Final MCHC 03/09/2024 04:34:00 31.2 32.0-36.0 (g/dL) Final RDW 03/09/2024 04:34:00 16.8 11.5-15.5 (%) Final Platelets 03/09/2024 04:34:00 284 140-400 (K/uL) Final MPV 03/09/2024 04:34:00 9.9 6.6-11.1 (fL) Final Nucleated erythrocytes/100 leukocytes [Ratio] in Blood by Automated count 03/09/2024 04:34:00 0 <=0 (/100 WBCs) Final Performing Location LABORATORY [facility] [place] - [address] [facility] [address]
--- OUTSIDE RECORDS SUMMARY | 2024-03-17 14:13 | External Medical Summary ---
Author Name Unknown Address Unknown Organization K01:LABORATORY [place] [address] [place] [address] Laboratory Report Ordering Provider Test Date Status SAMMY BAUMAN 03/10/2024 11:43:00 Final CRRT Labs: check once daily if not done already
Labs to be Drawn Peripherally

Anticoagulation may affect testing. Refer to [facility] Test Catalog for a list of effects. Observation Date Value Abnormality Reference (Units ) Status aPTT panel - Platelet poor plasma 03/10/2024 11:43:00 38 21-38 (seconds) Final Performing Location LABORATORY [facility] [place] - [facility] [address] [place] [address]
--- OUTSIDE RECORDS SUMMARY | 2024-03-17 14:13 | External Medical Summary ---
Author Name Unknown Address Unknown Organization K01:LABORATORY [facility] [place] - [facility] [address] [address] [address] [facility] [address] Laboratory Report Ordering Provider Test Date Status FLAQUITO PEREZ 03/03/2024 17:15:15 Final Observation Date Value Abnormality Reference (Units ) Status WBC, Total 03/03/2024 17:15:15 10.47 4.00-10.80 (K/uL) Final RBC 03/03/2024 17:15:15 2.52 4.50-5.25 (M/uL) Final Hemoglobin 03/03/2024 17:15:15 7.3 Below low normal 14.0-16.8 (g/dL) Final HCT 03/03/2024 17:15:15 23.6 Below low normal 40.0-48.4 (%) Final MCV 03/03/2024 17:15:15 93.7 82.0-99.5 (fL) Final MCH 03/03/2024 17:15:15 29.0 27.0-34.0 (pg) Final MCHC 03/03/2024 17:15:15 30.9 32.0-36.0 (g/dL) Final RDW 03/03/2024 17:15:15 15.3 11.5-15.5 (%) Final Platelets 03/03/2024 17:15:15 162 140-400 (K/uL) Final MPV 03/03/2024 17:15:15 8.7 6.6-11.1 (fL) Final Nucleated erythrocytes/100 leukocytes [Ratio] in Blood by Automated count 03/03/2024 17:15:15 0 <=0 (/100 WBCs) Final Performing Location LABORATORY [facility] [place] - [address] [facility] [address]
--- OUTSIDE RECORDS SUMMARY | 2024-03-17 14:13 | External Medical Summary ---
Author Name Unknown Address Unknown Organization K01:[facility] - [address] [place] [address] Laboratory Report Ordering Provider Test Date Status CHRISTIANO BRADY 03/08/2024 04:36:00 Final Observation Date Value Abnormality Reference (Units ) Status Phosphate 03/08/2024 04:36:00 5.3 Above high normal 2. 5-4.8 (mg/dL) Final Performing Location [facility] - [address] [place] [address]
--- OUTSIDE RECORDS SUMMARY | 2024-03-17 14:13 | External Medical Summary ---
Author Name Unknown Address Unknown Organization K01:LABORATORY [facility] [place] - [address] [place] [address] Laboratory Report Ordering Provider Test Date Status SAMMY BAUMAN 03/10/2024 11:43:00 Final CRRT Labs: Check at initiati on of CRRT, One hour after CRRT and Every 6 hours
Labs to be Drawn Peripherally Observation Date Value Abnormality Reference (Units ) Status Magnesium 03/10/2024 11:43:00 3.1 Above high normal 1. 5-2.6 (mg/dL) Final Performing Location LABORATORY [facility] [place] - [address] [place] [address]
--- OUTSIDE RECORDS SUMMARY | 2024-03-17 14:13 | External Medical Summary ---
Author Name Unknown Address Unknown Organization K01:LABORATORY [facility] [place] - [facility] [address] [facility] [address] Laboratory Report Ordering Provider Test Date Status CHRISTIANO BRADY 03/07/2024 04:30:00 Final Observation Date Value Abnormality Reference (Units ) Status BUN 03/07/2024 04:30:00 52 Above high normal 6-20 (mg/dL) Final Creatinine 03/07/2024 04:30:00 12.8 Above high normal 0.6-1.2 (mg/dL) Final Glomerular filtration rate/1.73 sq M.predicted [Volume Rate/Area] in Serum, Plasma or Blood by Creatinine-based formula (CKD-EPI) 03/07/2024 04:30:00 5 Below low normal >=60 (mL/min) Final eGFR is calculated based on the CKD-EPI 2020 equation Sodium 03/07/2024 04:30:00 145 135-146 (m mol/L) Final Potassium 03/07/2024 04:30:00 3.4 Below low normal 3.5 -5.1 (mmol/L) Final Cl 03/07/2024 04:30:00 101 98-107 (mm ol/L) Final CO2 03/07/2024 04:30:00 22 22-32 (mmo l/L) Final Anion gap 03/07/2024 04:30:00 22 Above high normal 7- 15 (mmol/L) Final Glucose 03/07/2024 04:30:00 128 Above high normal 70 -120 (mg/dL) Final Calcium 03/07/2024 04:30:00 8.9 8.4-10.2 ( mg/dL) Final Performing Location LABORATORY [facility] [place] - [address] [place] [address]
--- OUTSIDE RECORDS SUMMARY | 2024-03-17 14:13 | External Medical Summary ---
Author Name Unknown Address Unknown Organization K01:LABORATORY [address] [address] Laboratory Report Ordering Provider Test Date Status ASHLEY MONTERO 03/10/2024 04:35:00 Final Observation Date Value Abnormality Reference (Units ) Status WBC, Total 03/10/2024 04:35:00 17.73 Above high normal 4.00-10.80 (K/uL) Final RBC 03/10/2024 04:35:00 2.97 4.50-5.25 (M/uL) Final Hemoglobin 03/10/2024 04:35:00 8.7 Below low normal 14.0-16.8 (g/dL) Final HCT 03/10/2024 04:35:00 28.5 Below low normal 40.0-48.4 (%) Final MCV 03/10/2024 04:35:00 96.0 82.0-99.5 (fL) Final MCH 03/10/2024 04:35:00 29.3 27.0-34.0 (pg) Final MCHC 03/10/2024 04:35:00 30.5 32.0-36.0 (g/dL) Final RDW 03/10/2024 04:35:00 16.5 11.5-15.5 (%) Final Platelets 03/10/2024 04:35:00 261 140-400 (K/uL) Final MPV 03/10/2024 04:35:00 9.5 6.6-11.1 (fL) Final Nucleated erythrocytes/100 leukocytes [Ratio] in Blood by Automated count 03/10/2024 04:35:00 0 <=0 (/100 WBCs) Final Performing Location LABORATORY [facility] [place] - [address] [facility] [address]
--- OUTSIDE RECORDS SUMMARY | 2024-03-17 14:13 | External Medical Summary ---
Author Name Unknown Address Unknown Organization K01:LABORATORY [facility] [place] - [facility] [address] [facility] [place] [address] Laboratory Report Ordering Provider Test Date Status SAMMY BAUMAN 03/10/2024 11:43:00 Final CRRT Labs: Check at initiati on of CRRT, One hour after CRRT and Every 6 hours
Labs to be Drawn Peripherally
Send in a separate tube. Observation Date Value Abnormality Reference (Units ) Status Calcium.ionized [Moles/volume] in Blood by Ion-selective membrane electrode (ISE) 03/10/2024 11:43:00 1.02 Below low normal 1.13-1.32 (mmol/L) Final Performing Location [facility]ORY [facility] [place] - [address] [place] [address]
--- OUTSIDE RECORDS SUMMARY | 2024-03-17 14:13 | External Medical Summary ---
Author Name Unknown Address Unknown Organization K01:[facility] - [address] [place] [address] Laboratory Report Ordering Provider Test Date Status CHRISTIANO BRADY 03/10/2024 04:35:00 Final Observation Date Value Abnormality Reference (Units ) Status Magnesium 03/10/2024 04:35:00 2.9 Above high normal 1. 5-2.6 (mg/dL) Final Performing Location [facility] - [address] [place] [address]
--- OUTSIDE RECORDS SUMMARY | 2024-03-17 14:13 | External Medical Summary ---
Author Name Unknown Address Unknown Organization K01:[facility] - [address] [place] [address] Laboratory Report Ordering Provider Test Date Status CHRISTIANO BRADY 03/09/2024 04:34:00 Final Observation Date Value Abnormality Reference (Units ) Status Magnesium 03/09/2024 04:34:00 3.2 Above high normal 1. 5-2.6 (mg/dL) Final Performing Location [facility] - [address] [place] [address]
--- OUTSIDE RECORDS SUMMARY | 2024-03-17 14:13 | External Medical Summary ---
Author Name Unknown Address Unknown Organization K01:[facility] - [address] [place] [address] Laboratory Report Ordering Provider Test Date Status CHRISTIANO BRADY 03/10/2024 04:35:00 Final Observation Date Value Abnormality Reference (Units ) Status Phosphate 03/10/2024 04:35:00 5.2 Above high normal 2. 5-4.8 (mg/dL) Final Performing Location [facility] - [address] [place] [address]
--- OUTSIDE RECORDS SUMMARY | 2024-03-17 14:13 | External Medical Summary ---
Author Name Unknown Address Unknown Organization K01:LABORATORY [facility] [place] - [facility] [address] [place] [address] Laboratory Report Ordering Provider Test Date Status SAMMY BAUMAN 03/10/2024 11:43:00 Final CRRT Labs: check once daily if not done already
Labs to be Drawn Peripherally Observation Date Value Abnormality Reference (Units ) Status Albumin 03/10/2024 11:43:00 3.8 3.8-5.0 (g/dL) Final AST (Aspartate aminotransferase) 03/10/2024 11:43:00 59 Above high normal 10-50 (U/L) Final Alk Phos 03/10/2024 11:43:00 169 Above high normal 35-130 (U/L) Final ALT (Alanine aminotransferase) 03/10/2024 11:43:00 63 Above high normal 10-50 (U/L) Final Bilirubin, Total 03/10/2024 11:43:00 0.7 <=1.2 (mg/dL) Final Bilirubin, Direct 03/10/2024 11:43:00 0.5 Above high normal 0.0-0.3 (mg/dL) Final Protein 03/10/2024 11:43:00 7.3 6.0-8.3 (g/dL) Final Performing Location LABORATORY [facility] [place] - [address] [place] [address]
--- OUTSIDE RECORDS SUMMARY | 2024-03-17 14:13 | External Medical Summary ---
Author Name Unknown Address Unknown Organization K01:[facility]ORY [facility] [place] [address] [place] [address] Laboratory Report Ordering Provider Test Date Status MICHELLEJONATHON 03/09/2024 21:24:00 Final Observation Date Value Abnormality Reference (Units ) Status Lactic Acid 03/09/2024 21:24:00 1.6 0.4-2.0 (mmol/L) Final Performing Location [facility] - [address] [place] [address]
--- OUTSIDE RECORDS SUMMARY | 2024-03-17 14:13 | External Medical Summary ---
Author Name Unknown Address Unknown Organization K01:[facility] - [address] [place] [address] Laboratory Report Ordering Provider Test Date Status CHRISTIANO BRADY 03/06/2024 04:32:00 Final Observation Date Value Abnormality Reference (Units ) Status Magnesium 03/06/2024 04:32:00 2.9 Above high normal 1. 5-2.6 (mg/dL) Final Performing Location [facility] - [address] [place] [address]
--- OUTSIDE RECORDS SUMMARY | 2024-03-17 14:13 | External Medical Summary ---
Author Name Unknown Address Unknown Organization K01:[facility] - [address] [place] [address] Laboratory Report Ordering Provider Test Date Status CHRISTIANO BRADY 03/08/2024 04:36:00 Final Observation Date Value Abnormality Reference (Units ) Status Magnesium 03/08/2024 04:36:00 3.0 Above high normal 1. 5-2.6 (mg/dL) Final Performing Location [facility] - [address] [place] [address]
--- OUTSIDE RECORDS SUMMARY | 2024-03-17 14:13 | External Medical Summary ---
Author Name Unknown Address Unknown Organization [id number]:[facility] [place] [address] [place] [address] Laboratory Report Ordering Provider Test Date Status CHRISTIANO BRADY 03/06/2024 04:32:00 Final Observation Date Value Abnormality Reference (Units ) Status BUN 03/06/2024 04:32:00 45 Above high normal 6-20 (mg/dL) Final Creatinine 03/06/2024 04:32:00 11.7 Above high normal 0.6-1.2 (mg/dL) Final Glomerular filtration rate/1.73 sq M.predicted [Volume Rate/Area] in Serum, Plasma or Blood by Creatinine-based formula (CKD-EPI) 03/06/2024 04:32:00 5 Below low normal >=60 (mL/min) Final eGFR is calculated based on the CKD-EPI 2020 equation Sodium 03/06/2024 04:32:00 146 135-146 (m mol/L) Final Potassium 03/06/2024 04:32:00 3.5 3.5-5.1 (m mol/L) Final Cl 03/06/2024 04:32:00 102 98-107 (mm ol/L) Final CO2 03/06/2024 04:32:00 23 22-32 (mmo l/L) Final Anion gap 03/06/2024 04:32:00 21 Above high normal 7- 15 (mmol/L) Final Glucose 03/06/2024 04:32:00 139 Above high normal 70 -120 (mg/dL) Final Calcium 03/06/2024 04:32:00 8.5 8.4-10.2 ( mg/dL) Final Performing Location [facility] [place] [address] [place] [address]
--- OUTSIDE RECORDS SUMMARY | 2024-03-17 14:13 | External Medical Summary ---
Author Name Unknown Address Unknown Organization [facility] [address] [facility] [address] Laboratory Report Ordering Provider Test Date Status ASHLEY MONTERO 03/08/2024 04:36:00 Final Observation Date Value Abnormality Reference (Units ) Status WBC, Total 03/08/2024 04:36:00 12.29 Above high normal 4.00-10.80 (K/uL) Final RBC 03/08/2024 04:36:00 3.30 4.50-5.25 (M/uL) Final Hemoglobin 03/08/2024 04:36:00 9.6 Below low normal 14.0-16.8 (g/dL) Final HCT 03/08/2024 04:36:00 31.4 Below low normal 40.0-48.4 (%) Final MCV 03/08/2024 04:36:00 95.2 82.0-99.5 (fL) Final MCH 03/08/2024 04:36:00 29.1 27.0-34.0 (pg) Final MCHC 03/08/2024 04:36:00 30.6 32.0-36.0 (g/dL) Final RDW 03/08/2024 04:36:00 16.3 11.5-15.5 (%) Final Platelets 03/08/2024 04:36:00 270 140-400 (K/uL) Final MPV 03/08/2024 04:36:00 9.9 6.6-11.1 (fL) Final Nucleated erythrocytes/100 leukocytes [Ratio] in Blood by Automated count 03/08/2024 04:36:00 0 <=0 (/100 WBCs) Final Performing Location LABORATORY [facility] [place] - [address] [facility] [address]
--- OUTSIDE RECORDS SUMMARY | 2024-03-17 14:13 | External Medical Summary ---
Author Name Unknown Address Unknown Organization K01:[facility] - [address] [place] [address] Laboratory Report Ordering Provider Test Date Status CHRISTIANO BRADY 03/03/2024 05:26:47 Final Observation Date Value Abnormality Reference (Units ) Status Magnesium 03/03/2024 05:26:47 2.8 Above high normal 1. 5-2.6 (mg/dL) Final Performing Location [facility] - [address] [place] [address]
--- OUTSIDE RECORDS SUMMARY | 2024-03-17 14:13 | External Medical Summary ---
Author Name Unknown Address Unknown Organization [id number]:LABORATORY [facility] [place] - [address] [address] Laboratory Report Ordering Provider Test Date Status CHRISTIANO BRADY 03/10/2024 04:35:00 Final Observation Date Value Abnormality Reference (Units ) Status BUN 03/10/2024 04:35:00 106 Above high normal 6-20 (mg/dL) Final Creatinine 03/10/2024 04:35:00 15.8 Above high normal 0.6-1.2 (mg/dL) Final Glomerular filtration rate/1.73 sq M.predicted [Volume Rate/Area] in Serum, Plasma or Blood by Creatinine-based formula (CKD-EPI) 03/10/2024 04:35:00 3 Below low normal >=60 (mL/min) Final eGFR is calculated based on the CKD-EPI 2020 equation Sodium 03/10/2024 04:35:00 144 135-146 (m mol/L) Final Potassium 03/10/2024 04:35:00 3.8 3.5-5.1 (m mol/L) Final Cl 03/10/2024 04:35:00 99 98-107 (mm ol/L) Final CO2 03/10/2024 04:35:00 23 22-32 (mmo l/L) Final Anion gap 03/10/2024 04:35:00 22 Above high normal 7- 15 (mmol/L) Final Glucose 03/10/2024 04:35:00 126 Above high normal 70 -120 (mg/dL) Final Calcium 03/10/2024 04:35:00 8.5 8.4-10.2 ( mg/dL) Final Performing Location LABORATORY [facility] [place] - [address] [place] [address]
--- OUTSIDE RECORDS SUMMARY | 2024-03-17 14:13 | External Medical Summary ---
Author Name Unknown Address Unknown Organization K01:[facility] - [address] [place] [address] Laboratory Report Ordering Provider Test Date Status CHRISTIANO BRADY 03/04/2024 05:46:29 Final Observation Date Value Abnormality Reference (Units ) Status Phosphate 03/04/2024 05:46:29 6.6 Above high normal 2. 5-4.8 (mg/dL) Final Performing Location [facility] - [address] [place] [address]
--- OUTSIDE RECORDS SUMMARY | 2024-03-17 14:13 | External Medical Summary ---
Author Name Unknown Address Unknown Organization [id number]:LABORATORY [facility] [place] - [address] [facility] [address] Laboratory Report Ordering Provider Test Date Status CHRISTIANO BRADY 03/08/2024 04:36:00 Final Observation Date Value Abnormality Reference (Units ) Status BUN 03/08/2024 04:36:00 66 Above high normal 6-20 (mg/dL) Final Creatinine 03/08/2024 04:36:00 13.8 Above high normal 0.6-1.2 (mg/dL) Final Glomerular filtration rate/1.73 sq M.predicted [Volume Rate/Area] in Serum, Plasma or Blood by Creatinine-based formula (CKD-EPI) 03/08/2024 04:36:00 4 Below low normal >=60 (mL/min) Final eGFR is calculated based on the CKD-EPI 2020 equation Sodium 03/08/2024 04:36:00 147 Above high normal 13 5-146 (mmol/L) Final Potassium 03/08/2024 04:36:00 3.7 3.5-5.1 (m mol/L) Final Cl 03/08/2024 04:36:00 100 98-107 (mm ol/L) Final CO2 03/08/2024 04:36:00 24 22-32 (mmo l/L) Final Anion gap 03/08/2024 04:36:00 23 Above high normal 7- 15 (mmol/L) Final Glucose 03/08/2024 04:36:00 126 Above high normal 70 -120 (mg/dL) Final Calcium 03/08/2024 04:36:00 9.4 8.4-10.2 ( mg/dL) Final Performing Location LABORATORY [facility] [place] - [address] [place] [address]
--- OUTSIDE RECORDS SUMMARY | 2024-03-17 14:13 | External Medical Summary ---
Author Name Unknown Address Unknown Organization K01:LABORATORY [facility] [place] - [address] [facility] [address] Laboratory Report Ordering Provider Test Date Status CHRISTIANO BRADY 03/05/2024 04:12:03 Final Observation Date Value Abnormality Reference (Units ) Status BUN 03/05/2024 04:12:03 42 Above high normal 6-20 (mg/dL) Final Creatinine 03/05/2024 04:12:03 11.3 Above high normal 0.6-1.2 (mg/dL) Final Glomerular filtration rate/1.73 sq M.predicted [Volume Rate/Area] in Serum, Plasma or Blood by Creatinine-based formula (CKD-EPI) 03/05/2024 04:12:03 5 Below low normal >=60 (mL/min) Final eGFR is calculated based on the CKD-EPI 2020 equation Sodium 03/05/2024 04:12:03 141 135-146 (m mol/L) Final Potassium 03/05/2024 04:12:03 3.7 3.5-5.1 (m mol/L) Final Cl 03/05/2024 04:12:03 103 98-107 (mm ol/L) Final CO2 03/05/2024 04:12:03 21 Below low normal 22- 32 (mmol/L) Final Anion gap 03/05/2024 04:12:03 17 Above high normal 7- 15 (mmol/L) Final Glucose 03/05/2024 04:12:03 150 Above high normal 70 -120 (mg/dL) Final Calcium 03/05/2024 04:12:03 8.3 Below low normal 8.4 -10.2 (mg/dL) Final Performing Location LABORATORY [facility] [place] - [address] [place] [address]
--- OUTSIDE RECORDS SUMMARY | 2024-03-17 14:13 | External Medical Summary ---
Author Name Unknown Address Unknown Organization K01:[facility] - [address] [place] [address] Laboratory Report Ordering Provider Test Date Status CHRISTIANO BRADY 03/07/2024 04:30:00 Final Observation Date Value Abnormality Reference (Units ) Status Phosphate 03/07/2024 04:30:00 5.5 Above high normal 2. 5-4.8 (mg/dL) Final Performing Location [facility] - [address] [place] [address]
--- OUTSIDE RECORDS SUMMARY | 2024-03-17 14:13 | External Medical Summary ---
Author Name Unknown Address Unknown Organization K01:[facility] [place] [address] [place] [address] Laboratory Report Ordering Provider Test Date Status SAMMY BAUMAN 03/10/2024 11:43:00 Final CRRT Labs: Check at initiati on of CRRT, One hour after CRRT and Every 6 hours
Labs to be Drawn Peripherally Observation Date Value Abnormality Reference (Units ) Status Phosphate 03/10/2024 11:43:00 5.0 Above high normal 2. 5-4.8 (mg/dL) Final Performing Location [facility]ORY [facility] [place] [address] [place] [address]
--- OUTSIDE RECORDS SUMMARY | 2024-03-17 14:13 | External Medical Summary ---
Author Name Unknown Address Unknown Organization K01:[facility] - [address] [place] [address] Laboratory Report Ordering Provider Test Date Status CHRISTIANO BRADY 03/07/2024 04:30:00 Final Observation Date Value Abnormality Reference (Units ) Status Magnesium 03/07/2024 04:30:00 2.9 Above high normal 1. 5-2.6 (mg/dL) Final Performing Location LAB[facility] - [address] [place] [address]
--- OUTSIDE RECORDS SUMMARY | 2024-03-17 14:13 | External Medical Summary | Summary of Care ---
Author Name Unknown Organization [facility] Address [address] [place] [address] Phone [phone] Care Team Providers Care Hand Suture Winder Name Role Phone Tomer Garner MD Primary Care Provider + [phone] Reason for Visit * Auth/Cert Specialty Diagnoses / Procedures Referred By Contac t Referred To Contact [facility] [address] [place] [address] Phone: [phone] Emergency Medicine [facility] [address] [place] [address] Referral ID Status Reason Start Date Expiration Date Visits Re quested Visits Authorized [id number] Encounter Details Date Type Department Care Team (Latest Contact Info) Description 03/08/2024 9:12 AM EDT - 03/08/2024 11:59 PM EDT Hospital Encounter Cardiac Studies [place] [address] [place] [address] Discharge Disposition: Home - Self Care Allergies No known active allergiesdocumented as of this encounter (statuses as of 03/09/2024) Medications Medication Sig Dispensed Refills Start Date [...] Use to inject Retacrit weekly 12 Each 6 12/20/2023 Suspended Additional Information Patient not taking.Reported [...] Tablet by mouth in the morning. Suspended documented as of this encounter (statuses as of 03/09/2024) Active Problems Problem Noted Date Diagnosed Date [...] as of this encounter (statuses as of 03/09/2024) Resolved Problems Problem Noted Date Diagnosed Date [...] as of this encounter (statuses as of 03/09/2024) Immunizations Name Administration Dates Next Due COVID-19 mRNA, LNP-s, No Pre serve, 2-Dose Series (Moderna) 11/23/2020,10/18/2020 DTP Vaccine 1981,1981,1981 HEP B - Hepatitis B (Dialysis/Immumocomp Pt) 05/02/2023,04/04/2023 MMR - Measles/Mumps/Rubella Vaccine 05/11/1982 OPV - Polio Virus Vaccine (Oral) 1981,04/11 Pneumococcal Conjugate Vacci ne, 20-valent ([id number]) 11/17/2022 Seasonal Influenza, PF, 6 M & [...] (15 years old or older) No 11/01/19 Cognitive Status Response Date of Assessm ent Because of a physical, menta l, or emotional condition, do you have serious difficulty concentrating, remembering, or making decisions? (5 years old or older) No 11/01/2022 documented as of this encounter Miscellaneous Notes * Ancillary Progress Note - Demond Mejia RN - 03/08/2024 9:30 AM EDT ALICIA with Conscious sedation done @ patient bedside by Dr Hidalgo and Dr Ephraim Hollis. Nursing care and sedation provided by ICU staff. Probe number [id number]. Demond Mejia RN documented in this encounter Plan of Treatment Upcoming Encounters Date Type Department Care Team (Late st Contact Info) Description 04/12/2024 9:20 AM EDT Office Visit Neurosurgery, [place] [address] [place] [address] Latasha Castellanos PA-C [address] [place] [address] 04/15/2024 1:00 PM EDT Hospital Encounter Radiology, [place] [address] [place] [address] 04/16/2024 11:00 AM EDT Office Visit Transplant Clinic, [address] [address] Gutierrez Monae MD [address] [place] [address] Win Julio MD [address] [place] [address] Nurse [facility] [address] [place] [address] Chana Robin LSW [address] [place] [address] 04/16/2024 2:50 PM EDT Laboratory Outpatient Laboratory, [place] [address] [place] [id number] [place], Lab B[address] [address] [place], [place] [id number] 04/17/2024 1:00 PM EDT Appointment Radiology, [place] [address] [place], [place] [phone] 04/29/2024 1:00 PM EDT Office Visit Home Dialysis [facility], [place] [address] [place] [address] Mdc, Peritoneal Dialysis [address], [place] [phone] 05/27/2024 12:40 PM EDT Nutrition Services Nutrition & Weight Management, [place] [address], [place] [phone] Jaz Best RDN [address] [place], [place] [phone] Pending Results Name Type Priority Associated Diagnoses Date/Time TRANSESOPHAGEAL ECHO (COMPLETE) Echocardiology Routine Valvular heart disease 03/08/2024 10:30 AM EDT Health Maintenance Due Date Last Done Comments COVID-19 Vaccine (3 - Moderna risk series) 12/21/2020 11/23/2020, 10/18/2020 Hepatitis B (3 of 4 - Risk Dialysis Recombivax 3-dose series) 10/05/2023 05/02/2023, 04/04/2023 Depression Screening 12/06/2024 12/07/2023 Diabetes Screening 03/09/2027 03/09/2024, 0 03/08/2024, 03/07/2024, Additional history exists DTaP,Tdap,and Td Vaccines (6 - Td or Tdap) 03/17/2030 03/17/2020, 01/02/2009, 1981, Additional history exists Albumin/Creatinine Ratio Discontinued 023, 01/11/2022, 11/02/2021, Additional history exists Pneumococcal Vaccine: Pediatrics (0 to 5 Years) and At-Risk Patients (6 to 64 Years) Completed 11/17/2022, 02/03/2004 Influenza Vaccine (FLU shot) Completed 06/20/2023, 06/24/2021, 06/24/2020, Additional history exists GARDASIL-HPV IMMUNIZATION SERIES Aged Out No longer [...] Advance Directives occurred with: Patient Care Teams Hand Suture Winder Relationship Specialty Start Date End Date Tomer Garner MD [address] [place] [facility] [place] [address] PCP - General 09/19/02 documented as of this encounter
--- OUTSIDE RECORDS SUMMARY | 2024-03-17 14:13 | External Medical Summary ---
Author Name Unknown Address Unknown Organization K01:[facility] [place] [facility] [address] [facility] [address] Laboratory Report Ordering Provider Test Date Status ASHLEY MONTERO 03/06/2024 10:29:00 Final Observation Date Value Abnormality Reference (Units ) Status WBC, Total 03/06/2024 10:29:00 9.66 4.00-10.80 (K/uL) Final RBC 03/06/2024 10:29:00 3.09 4.50-5.25 (M/uL) Final Hemoglobin 03/06/2024 10:29:00 9.4 Below low normal 14.0-16.8 (g/dL) Final HCT 03/06/2024 10:29:00 29.0 Below low normal 40.0-48.4 (%) Final MCV 03/06/2024 10:29:00 93.9 82.0-99.5 (fL) Final MCH 03/06/2024 10:29:00 30.4 27.0-34.0 (pg) Final MCHC 03/06/2024 10:29:00 32.4 32.0-36.0 (g/dL) Final RDW 03/06/2024 10:29:00 16.6 11.5-15.5 (%) Final Platelets 03/06/2024 10:29:00 194 140-400 (K/uL) Final MPV 03/06/2024 10:29:00 9.8 6.6-11.1 (fL) Final Nucleated erythrocytes/100 leukocytes [Ratio] in Blood by Automated count 03/06/2024 10:29:00 0 <=0 (/100 WBCs) Final Performing Location [facility] [place] [facility] [address] [facility] [address]
--- OUTSIDE RECORDS SUMMARY | 2024-03-17 14:13 | External Medical Summary ---
Author Name Unknown Address Unknown Organization K01:[facility]ORY [facility] [place] [address] [facility] [address] Laboratory Report Ordering Provider Test Date Status CHRISTIANO BRADY 03/09/2024 04:34:00 Final Observation Date Value Abnormality Reference (Units ) Status BUN 03/09/2024 04:34:00 76 Above high normal 6-20 (mg/dL) Final Creatinine 03/09/2024 04:34:00 15.0 Above high normal 0.6-1.2 (mg/dL) Final Glomerular filtration rate/1.73 sq M.predicted [Volume Rate/Area] in Serum, Plasma or Blood by Creatinine-based formula (CKD-EPI) 03/09/2024 04:34:00 4 Below low normal >=60 (mL/min) Final eGFR is calculated based on the CKD-EPI 2020 equation Sodium 03/09/2024 04:34:00 148 Above high normal 13 5-146 (mmol/L) Final Potassium 03/09/2024 04:34:00 3.6 3.5-5.1 (m mol/L) Final Cl 03/09/2024 04:34:00 100 98-107 (mm ol/L) Final CO2 03/09/2024 04:34:00 24 22-32 (mmo l/L) Final Anion gap 03/09/2024 04:34:00 24 Above high normal 7- 15 (mmol/L) Final Glucose 03/09/2024 04:34:00 139 Above high normal 70 -120 (mg/dL) Final Calcium 03/09/2024 04:34:00 9.2 8.4-10.2 ( mg/dL) Final Performing Location LAB[facility]ATORY [facility] [place] [address] [place] [address]
--- OUTSIDE RECORDS SUMMARY | 2024-03-17 14:13 | External Medical Summary ---
Author Name Unknown Address Unknown Organization K01:LABORATORY [facility] [place] - [address] [place] [address] Laboratory Report Ordering Provider Test Date Status SAMMY BAUMAN 03/10/2024 11:43:00 Final CRRT Labs: Check at initiati on of CRRT, One hour after CRRT and Every 6 hours
Labs to be Drawn Peripherally Observation Date Value Abnormality Reference (Units ) Status BUN 03/10/2024 11:43:00 110 Above high normal 6-20 (mg/dL) Final Creatinine 03/10/2024 11:43:00 16.3 Above high normal 0.6-1.2 (mg/dL) Final Glomerular filtration rate/1.73 sq M.predicted [Volume Rate/Area] in Serum, Plasma or Blood by Creatinine-based formula (CKD-EPI) 03/10/2024 11:43:00 3 Below low normal >=60 (mL/min) Final eGFR is calculated based on the CKD-EPI 2020 equation Sodium 03/10/2024 11:43:00 147 Above high normal 13 5-146 (mmol/L) Final Potassium 03/10/2024 11:43:00 4.2 3.5-5.1 (m mol/L) Final Cl 03/10/2024 11:43:00 99 98-107 (mm ol/L) Final CO2 03/10/2024 11:43:00 23 22-32 (mmo l/L) Final Anion gap 03/10/2024 11:43:00 25 Above high normal 7- 15 (mmol/L) Final Glucose 03/10/2024 11:43:00 120 70-120 (mg /dL) Final Calcium 03/10/2024 11:43:00 8.3 Below low normal 8.4 -10.2 (mg/dL) Final Performing Location LABORATORY [facility] [place] - [address] [place] [address]
--- OUTSIDE RECORDS SUMMARY | 2024-03-17 14:13 | External Medical Summary ---
Author Name Unknown Address Unknown Organization K01:[facility]ORY [facility] [place] - [address] [place] [address] Laboratory Report Ordering Provider Test Date Status JONATHON MARTINEZ 03/09/2024 21:24:00 Final Observation Date Value Abnormality Reference (Units ) Status Bacteria identified in Specimen by Culture 03/09/2024 21:24:00 No growth Final Test: Culture, Blood
Spe cimen Source: Blood, Venous
Specimen Type: Blood
Specimen Date: 03/09/[id number]
Result Date: 03/14/20242200
Result Status: Final result
Resulting Lab: LABORATORY [facility] [place]
[address]
[place] [address]

CULTURE

No growth

null Performing Location LABORATORY [facility] - [address] [place] [address]
--- OUTSIDE RECORDS SUMMARY | 2024-03-17 14:13 | External Medical Summary ---
Author Name Unknown Address Unknown Organization K01:[facility] - [address] [place] [address] Laboratory Report Ordering Provider Test Date Status CHRISTIANO BRADY 03/04/2024 05:46:29 Final Observation Date Value Abnormality Reference (Units ) Status Magnesium 03/04/2024 05:46:29 2.9 Above high normal 1. 5-2.6 (mg/dL) Final Performing Location LAB[facility]ORY [facility] - [address] [place] [address]
--- OUTSIDE RECORDS SUMMARY | 2024-03-17 14:13 | External Medical Summary ---
Author Name Unknown Address Unknown Organization K01:LABORATORY [facility] [place] [address] [place] [facility] Laboratory Report Ordering Provider Test Date Status JONATHON MARTINEZ 03/09/2024 21:29:00 Final Observation Date Value Abnormality Reference (Units ) Status Bacteria identified in Specimen by Culture 03/09/2024 21:29:00 No growth Final Test: Culture, Blood (Site 2 )
Specimen Source: Blood, Venous
Specimen Type: Blood
Specimen Date: 03/09/[id number]
Result Date: 03/14/20242200
Result Status: Final result
Resulting Lab: LAB[facility]ORY [facility] [place]
[address]
[place] [address]

CULTURE

No growth

null Performing Location LAB[facility]ORY [facility] [place] [address] [place] [address]
--- OUTSIDE RECORDS SUMMARY | 2024-03-17 14:13 | External Medical Summary | Summary of Care ---
Author Name Unknown Organization [facility] Address [address] [place] [address] Phone [phone] Care Team Providers Care Automotive Customer Experience Advisor Name Role Phone Tomer Garner MD Primary Care Provider + [phone] Reason for Visit * Reason Onset Date Comments Precert Approved 12/04/2023 Retacrit Encounter Details Date Type Department Care Team (Late st Contact Info) Description 12/04/2023 Telephone Nephrology, [facility] [address] [place] [address] Akosua Lopez MD [address] [place] [address] Precert Approved ( Retacrit) Allergies No known active allergiesdocumented as of this encounter (statuses as of 03/04/2024) Medications Medication Sig Dispensed Refills Start Date End Date Status Lovastatin 10 MG Oral TabletIndication s:Kidney replaced by transplant Take 1 Tablet by mouth in the morning. 90 Tablet 3 09/28/2022 12/23/19 24 Discontinued( Refill) cycloSPORINE Modified 25 MG Oral CapsuleIndicatio ns:Kidney replaced by transplant Take 2 capsules in the morning and 2 capsules in the evening 360 Capsule 3 12/02/2022 12/23/19 24 Discontinued( Refill) Folic Acid 1 MG Oral Tablet Take 1 Tablet by mouth in the morning. 90 Tablet 1 12/01/2022 02/26/20 24 Discontinued( Medication List Clean Up) Febuxostat 80 MG Oral Tablet (Uloric)Indicati ons:Chronic gout without tophus, unspecified cause, unspecified site Take 1 Tablet by mouth in the morning. 90 Tablet 3 03/23/2023 Suspended Additional Information Calcium Acetate (Phos Binder) 667 MG Oral Capsule (Phoslo) Take 3 Capsules by mouth with meals and snacks. 900 Capsule 3 07/18/2023 Suspended Additional Information Docusate Sodium 100 MG Oral Capsule (Colace) Take 1 Capsule by mouth in the morning and 1 Capsule before bedtime. 08/21/2023 02/26/20 24 Discontinued( Medication List Clean Up) oxyCODONE HCl 5 MG Oral Capsule (Oxy IR) Take 1 Capsule by mouth every 4 hours as needed for Pain, Severe. 12 Capsule 08/21/2023 01/31/20 24 Discontinued( Medication List Clean Up) Gentamicin Sulfate 0.1 % External CreamIndications :ESRD on peritoneal dialysis (HCC) Apply topically to affected area daily. Apply to PD exit catheter site daily after showering and cover with bandage 15 g 2 09/08/2023 02/26/20 24 Discontinued( Medication List Clean Up) Dialyvite Oral Tablet Take 1 Tablet by mouth in the morning. 30 Tablet 11 09/28/2023 Suspended Additional Information Losartan Potassium 50 MG Oral Tablet (Cozaar) Take 1 Tablet by mouth in the morning. 30 Tablet 11 11/21/2023 02/26/20 24 Discontinued( Medication List Clean Up) Cinacalcet HCl 30 MG Oral Tablet (Sensipar) Take 1 Tablet by mouth in the morning. 90 Tablet 3 11/29/2023 12/26/19 24 Discontinued( Refill) Retacrit 25301 UNIT/ML Injection Solution (Epoetin melita-epbx ESRD) Inject 0.65 mL under the skin once a week. 3 mL 12/04/2023 01/18/20 Syringe 21G X 1" 3 ML Retacrit 13.000 U weekly. 12 Each 6 12/04/2023 Suspended Additional Information Patient not taking.Reported on 02/08/2024 documented as of this encounter (statuses as of 03/04/2024) Active Problems Problem Noted Date Diagnosed Date Encounter for continuous cathy al replacement therapy [...] Hypovolemia 10/29/2023 Dialysis-associated peritonitis 10/28/2023 Anemia in chronic renal disease 04/27/2023 Anemia of chronic renal failure, stage 5 [...] as of this encounter (statuses as of 03/04/2024) Resolved Problems Problem Noted Date Diagnosed Date [...] as of this encounter (statuses as of 03/04/2024) Immunizations Name Administration Dates Next Due COVID-19 mRNA, LNP-s, No Pre serve, 2-Dose Series (Moderna) 11/23/2020,10/18/2020 DTP Vaccine 1981,1981,1981 HEP B - Hepatitis B (Dialysis/Immumocomp Pt) 05/02/2023,04/04/2023 MMR - Measles/Mumps/Rubella Vaccine 05/11/1982 OPV - Polio Virus Vaccine (Oral) 1981,04/11 Pneumococcal Conjugate Vacci ne, 20-valent ([id number]) 11/17/2022 Seasonal Influenza, PF, 6 M & [...] encounter Miscellaneous Notes * Telephone Encounter - Maryjane Buck LPN - 12/07/2023 3:02 PM EDT Pharmacy is asking about preauth * Telephone Encounter - Sonido Clifford PHARM Tech - 12/04/2023 4:14 PM EDT New or re-auth: new Patient Chandan Donato needs a prior authorization for a medication through their [facility] Family insurance. Medication: Retacrit Formulation: 20,000u/ml Soln Dosage: 4ml for 28ds ID: [id number] [id number] PCN:[id number] Target ship date is n/a. Thank you very much, Nancy Clifford Billing Supervisor, [facility] 12/04/2023 4:15 PM documented in this encounter Plan of Treatment Upcoming Encounters Date Type Department Care Team (Late st Contact Info) Description 03/11/2024 8:00 AM EDT Treatment Home Dialysis [address] [phone] Nurse, Lance Bee [address] [place] [id number] 03/28/2024 1:00 PM EDT Office Visit Home Dialysis [address] [place] [id number] Mdc, Peritoneal Dialysis [address] [place] [address] 04/11/2024 8:00 AM EDT Treatment Home Dialysis [address] [place] [id number] Nurse, Solvonics Cristal [address] [place] [address] 04/12/2024 9:20 AM EDT Office Visit Neurosurgery, [facility] [address] [place] [address] Latasha Castellanos PA-C [address] [place] [address] 04/15/2024 1:00 PM EDT Hospital Encounter Radiology, [facility] [address] [place] [address] 04/16/2024 11:00 AM EDT Office Visit Transplant Clinic, [facility] [address] [place] [address] Gutierrez Monae MD [address] [place] [address] Win Julio MD [address] [place], [place] [phone] Nurse [facility] [address] [place] [address] Chana Robin LSW [address] [place] [address] 04/16/2024 2:50 PM EDT Laboratory Outpatient Laboratory, [facility] [address] [place] [address] [facility], Lab B1a [address], [place] [phone] 04/17/2024 1:00 PM EDT Appointment Radiology, [facility] [address] [place], [place] [phone] 04/29/2024 1:00 PM EDT Office Visit Home Dialysis [address], [address] [address] [address] [place], [place] [phone] Mdc, Peritoneal Dialysis [address] [place] [address] 05/27/2024 12:40 PM EDT Nutrition Services Nutrition & Weight Management, [facility] [address], [place] [phone] Jaz Best, RDCristiane [address], [place] [phone] Health Maintenance Due Date Last Done Comments COVID-19 Vaccine (3 - Moderna risk series) 12/21/2020 11/23/2020, 10/18/2020 Hepatitis B (3 of 4 - Risk Dialysis Recombivax 3-dose series) 10/05/2023 05/02/2023, 04/04/2023 Depression Screening 12/06/2024 12/07/2023 Diabetes Screening 03/04/2027 03/04/2024, 0 03/03/2024, 03/02/2024, Additional history exists DTaP,Tdap,and Td Vaccines (6 [...] Advance Directives occurred with: Patient Care Teams Automotive Customer Experience Advisor Relationship Specialty Start Date End Date Tomer Garner MD [address] [phone] PCP - General 09/19/02 documented as of this encounter
--- OUTSIDE RECORDS SUMMARY | 2024-03-17 14:13 | External Medical Summary ---
Author Name Unknown Address Unknown Organization K01:[facility] - [address] [place] [address] Laboratory Report Ordering Provider Test Date Status CHRISTIANO BRADY 03/09/2024 04:34:00 Final Observation Date Value Abnormality Reference (Units ) Status Phosphate 03/09/2024 04:34:00 5.5 Above high normal 2. 5-4.8 (mg/dL) Final Performing Location [facility] - [address] [place] [address]
--- OUTSIDE RECORDS SUMMARY | 2024-03-17 14:13 | External Medical Summary ---
Author Name Unknown Address Unknown Organization K01:LABORATORY [facility] [place] - [facility] [address] [facility] [address] Laboratory Report Ordering Provider Test Date Status LALA BURCH 03/05/2024 04:12:03 Final Observation Date Value Abnormality Reference (Units ) Status WBC, Total 03/05/2024 04:12:03 9.24 4.00-10.80 (K/uL) Final RBC 03/05/2024 04:12:03 2.65 4.50-5.25 (M/uL) Final Hemoglobin 03/05/2024 04:12:03 7.8 Below low normal 14.0-16.8 (g/dL) Final HCT 03/05/2024 04:12:03 24.3 Below low normal 40.0-48.4 (%) Final MCV 03/05/2024 04:12:03 91.7 82.0-99.5 (fL) Final MCH 03/05/2024 04:12:03 29.4 27.0-34.0 (pg) Final MCHC 03/05/2024 04:12:03 32.1 32.0-36.0 (g/dL) Final RDW 03/05/2024 04:12:03 15.6 11.5-15.5 (%) Final Platelets 03/05/2024 04:12:03 171 140-400 (K/uL) Final MPV 03/05/2024 04:12:03 9.3 6.6-11.1 (fL) Final Nucleated erythrocytes/100 leukocytes [Ratio] in Blood by Automated count 03/05/2024 04:12:03 0 <=0 (/100 WBCs) Final Performing Location LABORATORY [facility] - [address] [place] [address]
--- OUTSIDE RECORDS SUMMARY | 2024-03-17 14:13 | External Medical Summary ---
Author Name Unknown Address Unknown Organization [id number]:[facility]ORY [facility] [place] [facility] [address] [place] [address] Laboratory Report Ordering Provider Test Date Status SAMMY BAUMAN 03/10/2024 18:43:00 Final CRRT Labs: check once daily if not done already
Labs to be Drawn Peripherally Observation Date Value Abnormality Reference (Units ) Status WBC, Total 03/10/2024 18:43:00 18.49 Above high normal 4.00-10.80 (K/uL) Final RBC 03/10/2024 18:43:00 2.88 4.50-5.25 (M/uL) Final Hemoglobin 03/10/2024 18:43:00 8.8 Below low normal 14.0-16.8 (g/dL) Final HCT 03/10/2024 18:43:00 28.1 Below low normal 40.0-48.4 (%) Final MCV 03/10/2024 18:43:00 97.6 82.0-99.5 (fL) Final MCH 03/10/2024 18:43:00 30.6 27.0-34.0 (pg) Final MCHC 03/10/2024 18:43:00 31.3 32.0-36.0 (g/dL) Final RDW 03/10/2024 18:43:00 16.9 11.5-15.5 (%) Final Platelets 03/10/2024 18:43:00 251 140-400 (K/uL) Final MPV 03/10/2024 18:43:00 9.8 6.6-11.1 (fL) Final Nucleated erythrocytes/100 leukocytes [Ratio] in Blood by Automated count 03/10/2024 18:43:00 0 <=0 (/100 WBCs) Final Performing Location LABORATORY [place] [address] [place] [address]
--- OUTSIDE RECORDS SUMMARY | 2024-03-17 14:13 | External Medical Summary ---
Author Name Unknown Address Unknown Organization [id number]:LABORATORY [facility] [place] - [address] [place] [address] Laboratory Report Ordering Provider Test Date Status CHRISTIANO BRADY 03/04/2024 05:46:29 Final Observation Date Value Abnormality Reference (Units ) Status BUN 03/04/2024 05:46:29 35 Above high normal 6-20 (mg/dL) Final Creatinine 03/04/2024 05:46:29 9.4 Above high normal 0.6-1.2 (mg/dL) Final Glomerular filtration rate/1.73 sq M.predicted [Volume Rate/Area] in Serum, Plasma or Blood by Creatinine-based formula (CKD-EPI) 03/04/2024 05:46:29 6 Below low normal >=60 (mL/min) Final eGFR is calculated based on the CKD-EPI 2020 equation Sodium 03/04/2024 05:46:29 141 135-146 (m mol/L) Final Potassium 03/04/2024 05:46:29 3.9 3.5-5.1 (m mol/L) Final Cl 03/04/2024 05:46:29 102 98-107 (mm ol/L) Final CO2 03/04/2024 05:46:29 16 Below low normal 22- 32 (mmol/L) Final Anion gap 03/04/2024 05:46:29 23 Above high normal 7- 15 (mmol/L) Final Glucose 03/04/2024 05:46:29 72 70-120 (mg /dL) Final Calcium 03/04/2024 05:46:29 8.5 8.4-10.2 ( mg/dL) Final Performing Location LABORATORY [facility] [place] - [address] [place] [address]
--- OUTSIDE RECORDS SUMMARY | 2024-03-17 14:13 | External Medical Summary ---
Author Name Unknown Address Unknown Organization K01:LABORATORY [facility] [place] - [address] [facility] [address] Laboratory Report Ordering Provider Test Date Status FLAQUITO PEREZ 03/04/2024 05:46:29 Final Observation Date Value Abnormality Reference (Units ) Status WBC, Total 03/04/2024 05:46:29 10.11 4.00-10.80 (K/uL) Final RBC 03/04/2024 05:46:29 2.50 4.50-5.25 (M/uL) Final Hemoglobin 03/04/2024 05:46:29 7.2 Below low normal 14.0-16.8 (g/dL) Final HCT 03/04/2024 05:46:29 23.5 Below low normal 40.0-48.4 (%) Final MCV 03/04/2024 05:46:29 94.0 82.0-99.5 (fL) Final MCH 03/04/2024 05:46:29 28.8 27.0-34.0 (pg) Final MCHC 03/04/2024 05:46:29 30.6 32.0-36.0 (g/dL) Final RDW 03/04/2024 05:46:29 15.4 11.5-15.5 (%) Final Platelets 03/04/2024 05:46:29 164 140-400 (K/uL) Final MPV 03/04/2024 05:46:29 9.2 6.6-11.1 (fL) Final Nucleated erythrocytes/100 leukocytes [Ratio] in Blood by Automated count 03/04/2024 05:46:29 0 <=0 (/100 WBCs) Final Performing Location LABORATORY [facility] [place] - [address] [place] [address]
--- OUTSIDE RECORDS SUMMARY | 2024-03-17 14:13 | External Medical Summary ---
Author Name Unknown Address Unknown Organization K01:[facility] [place] [address] [place] [address] Laboratory Report Ordering Provider Test Date Status SAMMY BAUMAN 03/10/2024 18:43:00 Final CRRT Labs: Check at initiati on of CRRT, One hour after CRRT and Every 6 hours
Labs to be Drawn Peripherally Observation Date Value Abnormality Reference (Units ) Status Magnesium 03/10/2024 18:43:00 2.8 Above high normal 1. 5-2.6 (mg/dL) Final Performing Location [facility] [place] [address] [place] [address]
--- OUTSIDE RECORDS SUMMARY | 2024-03-17 14:13 | External Medical Summary ---
Author Name Unknown Address Unknown Organization K01:LAB[facility]ATORY [facility] [place] - [facility] [address] [facility] [place] [address] Laboratory Report Ordering Provider Test Date Status SAMMY BAUMAN 03/10/2024 11:43:00 Final CRRT Labs: check once daily if not done already
Labs to be Drawn Peripherally

Warfarin Therapy
INR: 2.0-3.0 conventional anticoagulation
INR: 2.5-3.5 high intensity anticoagulation Observation Date Value Abnormality Reference (Units ) Status PT 03/10/2024 11:43:00 15.4 Above high normal 11 .6-15.2 (seconds) Final INR 03/10/2024 11:43:00 1.2 0.8-1.2 Final Performing Location LABORATORY [facility] [place] - [facility] [place] [address]
--- OUTSIDE RECORDS SUMMARY | 2024-03-17 14:13 | External Medical Summary ---
Author Name Unknown Address Unknown Organization K01:[facility] - [address] [place] [address] Laboratory Report Ordering Provider Test Date Status CHRISTIANO BRADY 03/05/2024 04:12:03 Final Observation Date Value Abnormality Reference (Units ) Status Magnesium 03/05/2024 04:12:03 3.0 Above high normal 1. 5-2.6 (mg/dL) Final Performing Location [facility] - [address] [place] [address]
--- OUTSIDE RECORDS SUMMARY | 2024-03-17 14:14 | External Medical Summary ---
Author Name Unknown Address Unknown Organization K01:LABORATORY [facility] [place] - [facility] [address] [place] [address] Laboratory Report Ordering Provider Test Date Status CAROL WATSON 03/01/2024 16:49:11 Final CRRT Labs: Check at initiati on of CRRT, One hour after CRRT and Every 6 hours
Labs to be Drawn Peripherally Observation Date Value Abnormality Reference (Units ) Status BUN 03/01/2024 16:49:11 29 Above high normal 6-20 (mg/dL) Final Creatinine 03/01/2024 16:49:11 7.1 Above high normal 0.6-1.2 (mg/dL) Final Glomerular filtration rate/1.73 sq M.predicted [Volume Rate/Area] in Serum, Plasma or Blood by Creatinine-based formula (CKD-EPI) 03/01/2024 16:49:11 9 Below low normal >=60 (mL/min) Final eGFR is calculated based on the CKD-EPI 2020 equation Sodium 03/01/2024 16:49:11 138 135-146 (m mol/L) Final Potassium 03/01/2024 16:49:11 3.8 3.5-5.1 (m mol/L) Final Cl 03/01/2024 16:49:11 97 Below low normal 98- 107 (mmol/L) Final CO2 03/01/2024 16:49:11 20 Below low normal 22- 32 (mmol/L) Final Anion gap 03/01/2024 16:49:11 21 Above high normal 7- 15 (mmol/L) Final Glucose 03/01/2024 16:49:11 86 70-120 (mg /dL) Final Calcium 03/01/2024 16:49:11 9.3 8.4-10.2 ( mg/dL) Final Performing Location LABORATORY [facility] [place] - [address] [place] [address]
--- OUTSIDE RECORDS SUMMARY | 2024-03-17 14:14 | External Medical Summary ---
Author Name Unknown Address Unknown Organization K01:LABORATORY [facility] [place] - [address] [facility] [address] Laboratory Report Ordering Provider Test Date Status DENNIS GALVIN 03/01/2024 16:49:39 Final Observation Date Value Abnormality Reference (Units ) Status Body temperature 03/01/2024 16:49:39 37.0 (C) Final pH of Arterial blood 03/01/2024 16:49:39 7.327 Below low normal 7.350-7.450 (units) Final Carbon dioxide [Partial pressure] in Arterial blood 03/01/2024 16:49:39 45.2 Above high normal 35.0-45.0 (mmHg) Final Oxygen [Partial pressure] in Arterial blood 03/01/2024 16:49:39 123.0 Above high normal 75.0-100.0 (mmHg) Final Base excess, Arterial 03/01/2024 16:49:39 -2.3 Below low normal -2.0-2.0 (mmol/L) Final Hemoglobin [Mass/volume] in Blood by Oximetry 03/01/2024 16:49:39 8.1 Below low normal 14.0-16.8 (g/dL) Final Oxyhemoglobin, Arterial (FO2HB) 03/01/2024 16:49:39 96.1 94.0-99.0 (% total Hgb) Final Carboxyhemoglobin 03/01/2024 16:49:39 2.3 Above high normal <=1.5 (% total Hgb) Final Smokers: 0-9.0 % Methemoglobin 03/01/2024 16:49:39 1.0 <=1.5 (% total Hgb) Final Deoxyhemoglobin/Hemog lobin.total in Arterial blood 03/01/2024 16:49:39 0.6 0.0-5.0 (% total Hgb) Final Oxygen content in Arterial blood 03/01/2024 16:49:39 11.2 Below low normal 15.0-24.0 (%vol) Final Oxygen/Total gas setting [Volume Fraction] Ventilator 03/01/2024 16:49:39 40 (%) Final O2 FLOW, ARTERIAL - [facility] 03/01/2024 16:49:39 Not Provided (L/min) Final Bicarbonate, Venous, POC (i-STAT) 03/01/2024 16:49:39 23.0 23.0-31.0 (mmol/L) Final Performing Location LABORATORY [facility] [place] - [address] [facility] [address]
--- OUTSIDE RECORDS SUMMARY | 2024-03-17 14:14 | External Medical Summary ---
Author Name Unknown Address Unknown Organization K01:LABORATORY [facility] [place] - [address] [place] [address] Laboratory Report Ordering Provider Test Date Status VIRIDIANA WATSONO 03/01/2024 23:51:42 Final CRRT Labs: Check at initiati on of CRRT, One hour after CRRT and Every 6 hours
Labs to be Drawn Peripherally Observation Date Value Abnormality Reference (Units ) Status BUN 03/01/2024 23:51:42 23 Above high normal 6-20 (mg/dL) Final Creatinine 03/01/2024 23:51:42 5.5 Above high normal 0.6-1.2 (mg/dL) Final Glomerular filtration rate/1.73 sq M.predicted [Volume Rate/Area] in Serum, Plasma or Blood by Creatinine-based formula (CKD-EPI) 03/01/2024 23:51:42 12 Below low normal >=60 (mL/min) Final eGFR is calculated based on the CKD-EPI 2020 equation Sodium 03/01/2024 23:51:42 137 135-146 (m mol/L) Final Potassium 03/01/2024 23:51:42 3.6 3.5-5.1 (m mol/L) Final Cl 03/01/2024 23:51:42 98 98-107 (mm ol/L) Final CO2 03/01/2024 23:51:42 20 Below low normal 22- 32 (mmol/L) Final Anion gap 03/01/2024 23:51:42 19 Above high normal 7- 15 (mmol/L) Final Glucose 03/01/2024 23:51:42 79 70-120 (mg /dL) Final Calcium 03/01/2024 23:51:42 9.0 8.4-10.2 ( mg/dL) Final Performing Location LABORATORY [facility] [place] - [address] [place] [address]
--- OUTSIDE RECORDS SUMMARY | 2024-03-17 14:14 | External Medical Summary ---
Author Name Unknown Address Unknown Organization K01:LABORATORY [facility] [place] - [address] [place] [address] Laboratory Report Ordering Provider Test Date Status FILI GIANG 03/02/2024 12:38:56 Final CRRT Labs: Check at initiati on of CRRT, One hour after CRRT and Every 6 hours
Labs to be Drawn Peripherally Observation Date Value Abnormality Reference (Units ) Status Phosphate 03/02/2024 12:38:56 3.1 2.5-4.8 (m g/dL) Final Performing Location [facility] - [address] [place] [address]
--- OUTSIDE RECORDS SUMMARY | 2024-03-17 14:14 | External Medical Summary ---
Author Name Unknown Address Unknown Organization K01:LABORATORY [facility] [place] - [facility] [place] [address] Laboratory Report Ordering Provider Test Date Status WALTER,OLOWOYO 03/01/2024 16:49:11 Final CRRT Labs: check once daily if not done already
Labs to be Drawn Peripherally Observation Date Value Abnormality Reference (Units ) Status Albumin 03/01/2024 16:49:11 3.8 3.8-5.0 (g/dL) Final AST (Aspartate aminotransferase) 03/01/2024 16:49:11 57 Above high normal 10-50 (U/L) Final Alk Phos 03/01/2024 16:49:11 112 35-130 (U/L) Final ALT (Alanine aminotransferase) 03/01/2024 16:49:11 58 Above high normal 10-50 (U/L) Final Bilirubin, Total 03/01/2024 16:49:11 0.7 <=1.2 (mg/dL) Final Bilirubin, Direct 03/01/2024 16:49:11 0.4 Above high normal 0.0-0.3 (mg/dL) Final Protein 03/01/2024 16:49:11 6.6 6.0-8.3 (g/dL) Final Performing Location LABORATORY [facility] [place] - [address] [place] [address]
--- OUTSIDE RECORDS SUMMARY | 2024-03-17 14:14 | External Medical Summary ---
Author Name Unknown Address Unknown Organization K01:LABORATORY [facility] [place] - [facility] [address] [facility] [address] Laboratory Report Ordering Provider Test Date Status FLAQUITO PEREZ 03/03/2024 05:26:47 Final Observation Date Value Abnormality Reference (Units ) Status WBC, Total 03/03/2024 05:26:47 10.86 Above high normal 4.00-10.80 (K/uL) Final RBC 03/03/2024 05:26:47 2.52 4.50-5.25 (M/uL) Final Hemoglobin 03/03/2024 05:26:47 7.3 Below low normal 14.0-16.8 (g/dL) Final HCT 03/03/2024 05:26:47 23.8 Below low normal 40.0-48.4 (%) Final MCV 03/03/2024 05:26:47 94.4 82.0-99.5 (fL) Final MCH 03/03/2024 05:26:47 29.0 27.0-34.0 (pg) Final MCHC 03/03/2024 05:26:47 30.7 32.0-36.0 (g/dL) Final RDW 03/03/2024 05:26:47 15.5 11.5-15.5 (%) Final Platelets 03/03/2024 05:26:47 162 140-400 (K/uL) Final MPV 03/03/2024 05:26:47 8.8 6.6-11.1 (fL) Final Nucleated erythrocytes/100 leukocytes [Ratio] in Blood by Automated count 03/03/2024 05:26:47 0 <=0 (/100 WBCs) Final Performing Location LABORATORY [facility] [place] - [address] [facility] [address]
--- OUTSIDE RECORDS SUMMARY | 2024-03-17 14:14 | External Medical Summary ---
Author Name Unknown Address Unknown Organization K01:LABORATORY [facility] [place] [address] [facility] [address] Laboratory Report Ordering Provider Test Date Status VIRIDIANA WATSONJabari 03/01/2024 16:49:11 Final CRRT Labs: check once daily if not done already
Labs to be Drawn Peripherally

Warfarin Therapy
INR: 2.0-3.0 conventional anticoagulation
INR: 2.5-3.5 high intensity anticoagulation Observation Date Value Abnormality Reference (Units ) Status PT 03/01/2024 16:49:11 15.1 11.6-15.2 (seconds) Final INR 03/01/2024 16:49:11 1.2 0.8-1.2 Final Performing Location LABORATORY [facility] [place] [address] [place] [address]
--- OUTSIDE RECORDS SUMMARY | 2024-03-17 14:14 | External Medical Summary ---
Author Name Unknown Address Unknown Organization K01:LABORATORY [facility] [place] - [facility] [address] [facility] [address] Laboratory Report Ordering Provider Test Date Status CAROL WATSON 02/29/2024 11:41:43 Final CRRT Labs: Check at initiati on of CRRT, One hour after CRRT and Every 6 hours
Labs to be Drawn Peripherally
Send in a separate tube. Observation Date Value Abnormality Reference (Units ) Status Calcium.ionized [Moles/volume] in Blood by Ion-selective membrane electrode (ISE) 02/29/2024 11:41:43 1.24 1.13-1.32 (mmol/L) Final Performing Location LABORATORY [facility] [place] - [address] [facility] [address]
--- OUTSIDE RECORDS SUMMARY | 2024-03-17 14:14 | External Medical Summary ---
Author Name Unknown Address Unknown Organization K01:[place] [place] [facility] [address] [place] [address] Laboratory Report Ordering Provider Test Date Status CAROL WATSON 03/01/2024 16:49:11 Final CRRT Labs: check once daily if not done already
Labs to be Drawn Peripherally

Anticoagulation may affect testing. Refer to [facility] Test Catalog for a list of effects. Observation Date Value Abnormality Reference (Units ) Status aPTT panel - Platelet poor plasma 03/01/2024 16:49:11 39 Above high normal 21-38 (seconds) Final Performing Location [facility] [place] [facility] [address] [place] [address]
--- OUTSIDE RECORDS SUMMARY | 2024-03-17 14:14 | External Medical Summary ---
Author Name Unknown Address Unknown Organization K01:[facility]ATORY [facility] - [address] [place] [address] Laboratory Report Ordering Provider Test Date Status CHRISTIANO BRADY 03/02/2024 05:37:51 Final Observation Date Value Abnormality Reference (Units ) Status Magnesium 03/02/2024 05:37:51 2.7 Above high normal 1. 5-2.6 (mg/dL) Final Performing Location [facility] - [address] [place] [address]
--- OUTSIDE RECORDS SUMMARY | 2024-03-17 14:14 | External Medical Summary ---
Author Name Unknown Address Unknown Organization K01:LABORATORY [facility] [place] - [address] [place] [address] Laboratory Report Ordering Provider Test Date Status CAROL WATSON 02/29/2024 05:27:23 Final CRRT Labs: Check at initiati on of CRRT, One hour after CRRT and Every 6 hours
Labs to be Drawn Peripherally Observation Date Value Abnormality Reference (Units ) Status Phosphate 02/29/2024 05:27:23 3.9 2.5-4.8 (m g/dL) Final Performing Location LABORATORY [facility] [place] - [address] [place] [address]
--- OUTSIDE RECORDS SUMMARY | 2024-03-17 14:14 | External Medical Summary ---
Author Name Unknown Address Unknown Organization K01:LABORATORY [facility] [place] - [address] [facility] [address] Laboratory Report Ordering Provider Test Date Status WALTERKATIEOYO 03/01/2024 14:28:18 Final CRRT Labs: check once daily if not done already
Labs to be Drawn Peripherally Observation Date Value Abnormality Reference (Units ) Status SYNC LEUKOCYTES IN BLOOD BY AUTOMATED COUNT 03/01/2024 14:28:18 9.03 4.00-10.80 (K/uL) Final Segs 03/01/2024 14:28:18 62.6 40.0-75.0 (%) Final Lymphs % 03/01/2024 14:28:18 16.8 Below low normal 18.0-42.0 (%) Final Monos 03/01/2024 14:28:18 11.1 Above high normal 1.0-11.0 (%) Final Eosinophils 03/01/2024 14:28:18 4.2 0.0-6.0 (%) Final Basos 03/01/2024 14:28:18 0.8 0.0-2.0 (%) Final Immature Granulocyte, Percent 03/01/2024 14:28:18 4.5 Above high normal 0.0-2.0 (%) Final Absolute Segs 03/01/2024 14:28:18 5.65 1.80-7.70 (K/uL) Final Lymphs, absolute 03/01/2024 14:28:18 1.52 1.00-4.80 (K/ul) Final Monos, Abs 03/01/2024 14:28:18 1.00 0.00-1.10 (K/uL) Final Eos, Abs 03/01/2024 14:28:18 0.38 0.00-0.70 (K/uL) Final Basos, Abs 03/01/2024 14:28:18 0.07 0.00-0.20 (K/uL) Final Immature Granulocytes, Number 03/01/2024 14:28:18 0.41 Above high normal 0.00-0.20 (K/uL) Final Performing Location LABORATORY [facility] [place] - [facility] [address] [facility] [address]
--- OUTSIDE RECORDS SUMMARY | 2024-03-17 14:14 | External Medical Summary ---
Author Name Unknown Address Unknown Organization K01:[place] [facility] [place] [address] [place] [address] Laboratory Report Ordering Provider Test Date Status CAROL WATSON 02/29/2024 11:41:43 Final CRRT Labs: Check at initiati on of CRRT, One hour after CRRT and Every 6 hours
Labs to be Drawn Peripherally Observation Date Value Abnormality Reference (Units ) Status Phosphate 02/29/2024 11:41:43 3.5 2.5-4.8 (m g/dL) Final Performing Location [facility] [place] [address] [place] [address]
--- OUTSIDE RECORDS SUMMARY | 2024-03-17 14:14 | External Medical Summary ---
Author Name Unknown Address Unknown Organization K01:LABORATORY [facility] [place] - [facility] [place] [address] Laboratory Report Ordering Provider Test Date Status FILI GIANG 03/02/2024 05:37:51 Final CRRT Labs: check once daily if not done already
Labs to be Drawn Peripherally
Send in a separate tube. Observation Date Value Abnormality Reference (Units ) Status Calcium.ionized [Moles/volume] in Blood by Ion-selective membrane electrode (ISE) 03/02/2024 05:37:51 1.16 1.13-1.32 (mmol/L) Final Performing Location LABORATORY [facility] [place] - [address] [place] [address]
--- OUTSIDE RECORDS SUMMARY | 2024-03-17 14:14 | External Medical Summary ---
Author Name Unknown Address Unknown Organization K01:LABORATORY [facility] [place] - [address] [facility] [address] Laboratory Report Ordering Provider Test Date Status FLAQUITO PEREZ 03/02/2024 05:37:51 Final Observation Date Value Abnormality Reference (Units ) Status WBC, Total 03/02/2024 05:37:51 8.16 4.00-10.80 (K/uL) Final RBC 03/02/2024 05:37:51 2.28 4.50-5.25 (M/uL) Final Hemoglobin 03/02/2024 05:37:51 6.7 Below low normal 14.0-16.8 (g/dL) Final HCT 03/02/2024 05:37:51 21.2 Below low normal 40.0-48.4 (%) Final MCV 03/02/2024 05:37:51 93.0 82.0-99.5 (fL) Final MCH 03/02/2024 05:37:51 29.4 27.0-34.0 (pg) Final MCHC 03/02/2024 05:37:51 31.6 32.0-36.0 (g/dL) Final RDW 03/02/2024 05:37:51 15.3 11.5-15.5 (%) Final Platelets 03/02/2024 05:37:51 168 140-400 (K/uL) Final MPV 03/02/2024 05:37:51 8.7 6.6-11.1 (fL) Final Nucleated erythrocytes/100 leukocytes [Ratio] in Blood by Automated count 03/02/2024 05:37:51 0 <=0 (/100 WBCs) Final Performing Location LABORATORY [facility] [place] - [address] [facility] [address]
--- OUTSIDE RECORDS SUMMARY | 2024-03-17 14:14 | External Medical Summary ---
Author Name Unknown Address Unknown Organization K01:LABORATORY [facility] [place] - [facility] [address] [facility] [address] Laboratory Report Ordering Provider Test Date Status LALA BURCH 03/02/2024 19:32:11 Final Observation Date Value Abnormality Reference (Units ) Status WBC, Total 03/02/2024 19:32:11 11.00 Above high normal 4.00-10.80 (K/uL) Final RBC 03/02/2024 19:32:11 2.58 4.50-5.25 (M/uL) Final Hemoglobin 03/02/2024 19:32:11 7.7 Below low normal 14.0-16.8 (g/dL) Final HCT 03/02/2024 19:32:11 24.3 Below low normal 40.0-48.4 (%) Final MCV 03/02/2024 19:32:11 94.2 82.0-99.5 (fL) Final MCH 03/02/2024 19:32:11 29.8 27.0-34.0 (pg) Final MCHC 03/02/2024 19:32:11 31.7 32.0-36.0 (g/dL) Final RDW 03/02/2024 19:32:11 15.9 11.5-15.5 (%) Final Platelets 03/02/2024 19:32:11 174 140-400 (K/uL) Final MPV 03/02/2024 19:32:11 9.0 6.6-11.1 (fL) Final Nucleated erythrocytes/100 leukocytes [Ratio] in Blood by Automated count 03/02/2024 19:32:11 0 <=0 (/100 WBCs) Final Performing Location LABORATORY [facility] [place] - [address] [facility] [address]
--- OUTSIDE RECORDS SUMMARY | 2024-03-17 14:14 | External Medical Summary ---
Author Name Unknown Address Unknown Organization K01:LABORATORY [facility] [place] - [facility] [address] [facility] [address] Laboratory Report Ordering Provider Test Date Status FILI GIANG 03/01/2024 16:32:38 Final Observation Date Value Abnormality Reference (Units ) Status WBC, Total 03/01/2024 16:32:38 15.65 Above high normal 4.00-10.80 (K/uL) Final RBC 03/01/2024 16:32:38 2.72 4.50-5.25 (M/uL) Final Hemoglobin 03/01/2024 16:32:38 7.9 Below low normal 14.0-16.8 (g/dL) Final HCT 03/01/2024 16:32:38 25.3 Below low normal 40.0-48.4 (%) Final MCV 03/01/2024 16:32:38 93.0 82.0-99.5 (fL) Final MCH 03/01/2024 16:32:38 29.0 27.0-34.0 (pg) Final MCHC 03/01/2024 16:32:38 31.2 32.0-36.0 (g/dL) Final RDW 03/01/2024 16:32:38 15.2 11.5-15.5 (%) Final Platelets 03/01/2024 16:32:38 223 140-400 (K/uL) Final MPV 03/01/2024 16:32:38 8.8 6.6-11.1 (fL) Final Nucleated erythrocytes/100 leukocytes [Ratio] in Blood by Automated count 03/01/2024 16:32:38 0 <=0 (/100 WBCs) Final Performing Location LABORATORY [facility] [place] - [address] [facility] [address]
--- OUTSIDE RECORDS SUMMARY | 2024-03-17 14:14 | External Medical Summary ---
Author Name Unknown Address Unknown Organization K01:LABORATORY [facility] [place] - [address] [place] [address] Laboratory Report Ordering Provider Test Date Status WALTERKATIERICHA 03/01/2024 23:51:42 Final CRRT Labs: Check at initiati on of CRRT, One hour after CRRT and Every 6 hours
Labs to be Drawn Peripherally Observation Date Value Abnormality Reference (Units ) Status Magnesium 03/01/2024 23:51:42 2.7 Above high normal 1. 5-2.6 (mg/dL) Final Performing Location LABORATORY [facility] [place] - [address] [place] [address]
--- OUTSIDE RECORDS SUMMARY | 2024-03-17 14:14 | External Medical Summary ---
Author Name Unknown Address Unknown Organization K01:[facility] - [address] [place] [address] Laboratory Report Ordering Provider Test Date Status CHRISTIANO BRADY 03/01/2024 05:15:59 Final Observation Date Value Abnormality Reference (Units ) Status Magnesium 03/01/2024 05:15:59 2.6 1.5-2.6 (m g/dL) Final Performing Location [facility] - [address] [place] [address]
--- OUTSIDE RECORDS SUMMARY | 2024-03-17 14:14 | External Medical Summary ---
Author Name Unknown Address Unknown Organization K01:LABORATORY [facility] [place] - [address] [place] [address] Laboratory Report Ordering Provider Test Date Status CAROL WATSON 03/01/2024 18:24:40 Final CRRT Labs: Check at initiati on of CRRT, One hour after CRRT and Every 6 hours
Labs to be Drawn Peripherally Observation Date Value Abnormality Reference (Units ) Status Phosphate 03/01/2024 18:24:40 5.0 Above high normal 2. 5-4.8 (mg/dL) Final Performing Location LABORATORY [facility] [place] - [address] [place] [address]
--- OUTSIDE RECORDS SUMMARY | 2024-03-17 14:14 | External Medical Summary ---
Author Name Unknown Address Unknown Organization K01:LABORATORY [place] - [address] [place] [address] Laboratory Report Ordering Provider Test Date Status WALTERKATIEOYO 03/01/2024 18:24:40 Final CRRT Labs: Check at initiati on of CRRT, One hour after CRRT and Every 6 hours
Labs to be Drawn Peripherally Observation Date Value Abnormality Reference (Units ) Status BUN 03/01/2024 18:24:40 29 Above high normal 6-20 (mg/dL) Final Creatinine 03/01/2024 18:24:40 6.8 Above high normal 0.6-1.2 (mg/dL) Final Glomerular filtration rate/1.73 sq M.predicted [Volume Rate/Area] in Serum, Plasma or Blood by Creatinine-based formula (CKD-EPI) 03/01/2024 18:24:40 10 Below low normal >=60 (mL/min) Final eGFR is calculated based on the CKD-EPI 2020 equation Sodium 03/01/2024 18:24:40 138 135-146 (m mol/L) Final Potassium 03/01/2024 18:24:40 4.0 3.5-5.1 (m mol/L) Final Cl 03/01/2024 18:24:40 99 98-107 (mm ol/L) Final CO2 03/01/2024 18:24:40 20 Below low normal 22- 32 (mmol/L) Final Anion gap 03/01/2024 18:24:40 19 Above high normal 7- 15 (mmol/L) Final Glucose 03/01/2024 18:24:40 95 70-120 (mg /dL) Final Calcium 03/01/2024 18:24:40 9.1 8.4-10.2 ( mg/dL) Final Performing Location LABORATORY [place] - [address] [place] [address]
--- OUTSIDE RECORDS SUMMARY | 2024-03-17 14:14 | External Medical Summary ---
Author Name Unknown Address Unknown Organization K01:LABORATORY [facility] [place] - [facility] [address] [place] [address] Laboratory Report Ordering Provider Test Date Status FILI GIANG 03/02/2024 05:37:51 Final CRRT Labs: check once daily if not done already
Labs to be Drawn Peripherally

Anticoagulation may affect testing. Refer to [facility] Test Catalog for a list of effects. Observation Date Value Abnormality Reference (Units ) Status aPTT panel - Platelet poor plasma 03/02/2024 05:37:51 39 Above high normal 21-38 (seconds) Final Performing Location LABORATORY [facility] [place] - [facility] [place] [address]
--- OUTSIDE RECORDS SUMMARY | 2024-03-17 14:14 | External Medical Summary ---
Author Name Unknown Address Unknown Organization K01:LABORATORY [facility] [place] - [address] [place] [address] Laboratory Report Ordering Provider Test Date Status CHRISTIANO BRADY 03/01/2024 05:15:59 Final Observation Date Value Abnormality Reference (Units ) Status BUN 03/01/2024 05:15:59 22 Above high normal 6-20 (mg/dL) Final Creatinine 03/01/2024 05:15:59 5.6 Above high normal 0.6-1.2 (mg/dL) Final Glomerular filtration rate/1.73 sq M.predicted [Volume Rate/Area] in Serum, Plasma or Blood by Creatinine-based formula (CKD-EPI) 03/01/2024 05:15:59 12 Below low normal >=60 (mL/min) Final eGFR is calculated based on the CKD-EPI 2020 equation Sodium 03/01/2024 05:15:59 139 135-146 (m mol/L) Final Potassium 03/01/2024 05:15:59 3.7 3.5-5.1 (m mol/L) Final Cl 03/01/2024 05:15:59 99 98-107 (mm ol/L) Final CO2 03/01/2024 05:15:59 24 22-32 (mmo l/L) Final Anion gap 03/01/2024 05:15:59 16 Above high normal 7- 15 (mmol/L) Final Glucose 03/01/2024 05:15:59 87 70-120 (mg /dL) Final Calcium 03/01/2024 05:15:59 9.3 8.4-10.2 ( mg/dL) Final Performing Location LABORATORY [facility] [place] - [address] [place] [address]
--- OUTSIDE RECORDS SUMMARY | 2024-03-17 14:14 | External Medical Summary ---
Author Name Unknown Address Unknown Organization K01:[facility]ATORY [facility] - [address] [place] [address] Laboratory Report Ordering Provider Test Date Status CHRISTIANO BRADY 03/02/2024 05:37:51 Final Observation Date Value Abnormality Reference (Units ) Status Phosphate 03/02/2024 05:37:51 3.0 2.5-4.8 (m g/dL) Final Performing Location LAB[facility] - [address] [place] [address]
--- OUTSIDE RECORDS SUMMARY | 2024-03-17 14:14 | External Medical Summary ---
Author Name Unknown Address Unknown Organization K01:LAB[facility]ATORY [facility] [place] [address] [place] [address] Laboratory Report Ordering Provider Test Date Status CHRISTIANO BRADY 03/02/2024 05:37:51 Final Observation Date Value Abnormality Reference (Units ) Status BUN 03/02/2024 05:37:51 20 6-20 (mg/dL) Final Creatinine 03/02/2024 05:37:51 4.6 Above high normal 0.6-1.2 (mg/dL) Final Glomerular filtration rate/1.73 sq M.predicted [Volume Rate/Area] in Serum, Plasma or Blood by Creatinine-based formula (CKD-EPI) 03/02/2024 05:37:51 15 Below low normal >=60 (mL/min) Final eGFR is calculated based on the CKD-EPI 2020 equation Sodium 03/02/2024 05:37:51 138 135-146 (m mol/L) Final Potassium 03/02/2024 05:37:51 3.5 3.5-5.1 (m mol/L) Final Cl 03/02/2024 05:37:51 100 98-107 (mm ol/L) Final CO2 03/02/2024 05:37:51 20 Below low normal 22- 32 (mmol/L) Final Anion gap 03/02/2024 05:37:51 18 Above high normal 7- 15 (mmol/L) Final Glucose 03/02/2024 05:37:51 80 70-120 (mg /dL) Final Calcium 03/02/2024 05:37:51 8.7 8.4-10.2 ( mg/dL) Final Performing Location LABORATORY [facility] [place] [address] [place] [address]
--- OUTSIDE RECORDS SUMMARY | 2024-03-17 14:14 | External Medical Summary ---
Author Name Unknown Address Unknown Organization K01:LABORATORY [facility] [place] - [address] [place] [address] Laboratory Report Ordering Provider Test Date Status CAROL WATSON 03/01/2024 23:51:42 Final CRRT Labs: Check at initiati on of CRRT, One hour after CRRT and Every 6 hours
Labs to be Drawn Peripherally Observation Date Value Abnormality Reference (Units ) Status Phosphate 03/01/2024 23:51:42 3.3 2.5-4.8 (m g/dL) Final Performing Location LABORATORY [facility] [place] - [address] [place] [address]
--- OUTSIDE RECORDS SUMMARY | 2024-03-17 14:14 | External Medical Summary ---
Author Name Unknown Address Unknown Organization K01:[place] [facility] [place] [address] [facility] [address] Laboratory Report Ordering Provider Test Date Status CHRISTIANO BRADY 03/01/2024 05:15:59 Final Observation Date Value Abnormality Reference (Units ) Status WBC, Total 03/01/2024 05:15:59 10.79 4.00-10.80 (K/uL) Final RBC 03/01/2024 05:15:59 2.74 4.50-5.25 (M/uL) Final Hemoglobin 03/01/2024 05:15:59 7.8 Below low normal 14.0-16.8 (g/dL) Final HCT 03/01/2024 05:15:59 25.3 Below low normal 40.0-48.4 (%) Final MCV 03/01/2024 05:15:59 92.3 82.0-99.5 (fL) Final MCH 03/01/2024 05:15:59 28.5 27.0-34.0 (pg) Final MCHC 03/01/2024 05:15:59 30.8 32.0-36.0 (g/dL) Final RDW 03/01/2024 05:15:59 14.6 11.5-15.5 (%) Final Platelets 03/01/2024 05:15:59 199 140-400 (K/uL) Final MPV 03/01/2024 05:15:59 8.9 6.6-11.1 (fL) Final Nucleated erythrocytes/100 leukocytes [Ratio] in Blood by Automated count 03/01/2024 05:15:59 0 <=0 (/100 WBCs) Final Performing Location [facility] [facility] [place] [address] [place] [address]
--- OUTSIDE RECORDS SUMMARY | 2024-03-17 14:14 | External Medical Summary ---
Author Name Unknown Address Unknown Organization K01:LABORATORY [facility] [place] - [address] [place] [address] Laboratory Report Ordering Provider Test Date Status VIRIDIANA WATSONO 02/29/2024 05:27:23 Final CRRT Labs: Check at initiati on of CRRT, One hour after CRRT and Every 6 hours
Labs to be Drawn Peripherally Observation Date Value Abnormality Reference (Units ) Status BUN 02/29/2024 05:27:23 20 6-20 (mg/dL) Final Creatinine 02/29/2024 05:27:23 5.0 Above high normal 0.6-1.2 (mg/dL) Final Glomerular filtration rate/1.73 sq M.predicted [Volume Rate/Area] in Serum, Plasma or Blood by Creatinine-based formula (CKD-EPI) 02/29/2024 05:27:23 14 Below low normal >=60 (mL/min) Final eGFR is calculated based on the CKD-EPI 2020 equation Sodium 02/29/2024 05:27:23 139 135-146 (m mol/L) Final Potassium 02/29/2024 05:27:23 3.8 3.5-5.1 (m mol/L) Final Cl 02/29/2024 05:27:23 101 98-107 (mm ol/L) Final CO2 02/29/2024 05:27:23 22 22-32 (mmo l/L) Final Anion gap 02/29/2024 05:27:23 16 Above high normal 7- 15 (mmol/L) Final Glucose 02/29/2024 05:27:23 94 70-120 (mg /dL) Final Calcium 02/29/2024 05:27:23 9.3 8.4-10.2 ( mg/dL) Final Performing Location LABORATORY [facility] [place] - [address] [facility] [address]
--- OUTSIDE RECORDS SUMMARY | 2024-03-17 14:14 | External Medical Summary ---
Author Name Unknown Address Unknown Organization K01:LABORATORY [facility] [place] [facility] - [address] [place] [address] Laboratory Report Ordering Provider Test Date Status ZACKERY DIAS 03/01/2024 14:28:18 Final Observation Date Value Abnormality Reference (Units ) Status ABO 03/01/2024 14:28:18 O Final RH 03/01/2024 14:28:18 Positive Final RED BLOOD CELL ANTIBODY SCREEN 03/01/2024 14:28:18 Negative Final SPECIMEN EXPIRATION DATE 03/01/2024 14:28:18 03/04/2024 23:59 Final Performing Location LABORATORY [facility] [place] [facility] - [address] [place] [address]
--- OUTSIDE RECORDS SUMMARY | 2024-03-17 14:14 | External Medical Summary ---
Author Name Unknown Address Unknown Organization K01:LABORATORY [facility] [place] - [address] [place] [address] Laboratory Report Ordering Provider Test Date Status CHRISTIANO BRADY 03/03/2024 05:26:47 Final Observation Date Value Abnormality Reference (Units ) Status BUN 03/03/2024 05:26:47 24 Above high normal 6-20 (mg/dL) Final Creatinine 03/03/2024 05:26:47 6.3 Above high normal 0.6-1.2 (mg/dL) Final Glomerular filtration rate/1.73 sq M.predicted [Volume Rate/Area] in Serum, Plasma or Blood by Creatinine-based formula (CKD-EPI) 03/03/2024 05:26:47 10 Below low normal >=60 (mL/min) Final eGFR is calculated based on the CKD-EPI 2020 equation Sodium 03/03/2024 05:26:47 140 135-146 (m mol/L) Final Potassium 03/03/2024 05:26:47 3.6 3.5-5.1 (m mol/L) Final Cl 03/03/2024 05:26:47 103 98-107 (mm ol/L) Final CO2 03/03/2024 05:26:47 18 Below low normal 22- 32 (mmol/L) Final Anion gap 03/03/2024 05:26:47 19 Above high normal 7- 15 (mmol/L) Final Glucose 03/03/2024 05:26:47 73 70-120 (mg /dL) Final Calcium 03/03/2024 05:26:47 8.6 8.4-10.2 ( mg/dL) Final Performing Location LABORATORY [facility] [place] - [address] [place] [address]
--- OUTSIDE RECORDS SUMMARY | 2024-03-17 14:14 | External Medical Summary ---
Author Name Unknown Address Unknown Organization K01:LABORATORY [facility] [place] - [address] [place] [address] Laboratory Report Ordering Provider Test Date Status WALTERKATIERICHA 03/01/2024 18:24:40 Final CRRT Labs: Check at initiati on of CRRT, One hour after CRRT and Every 6 hours
Labs to be Drawn Peripherally Observation Date Value Abnormality Reference (Units ) Status Magnesium 03/01/2024 18:24:40 2.7 Above high normal 1. 5-2.6 (mg/dL) Final Performing Location LABORATORY [facility] [place] - [address] [place] [address]
--- OUTSIDE RECORDS SUMMARY | 2024-03-17 14:14 | External Medical Summary ---
Author Name Unknown Address Unknown Organization K01:LABORATORY [facility] [place] - [address] [place] [address] Laboratory Report Ordering Provider Test Date Status VIRIDIANA WATSONO 02/29/2024 11:41:43 Final CRRT Labs: Check at initiati on of CRRT, One hour after CRRT and Every 6 hours
Labs to be Drawn Peripherally Observation Date Value Abnormality Reference (Units ) Status BUN 02/29/2024 11:41:43 18 6-20 (mg/dL) Final Creatinine 02/29/2024 11:41:43 4.3 Above high normal 0.6-1.2 (mg/dL) Final Glomerular filtration rate/1.73 sq M.predicted [Volume Rate/Area] in Serum, Plasma or Blood by Creatinine-based formula (CKD-EPI) 02/29/2024 11:41:43 17 Below low normal >=60 (mL/min) Final eGFR is calculated based on the CKD-EPI 2020 equation Sodium 02/29/2024 11:41:43 136 135-146 (m mol/L) Final Potassium 02/29/2024 11:41:43 3.7 3.5-5.1 (m mol/L) Final Cl 02/29/2024 11:41:43 99 98-107 (mm ol/L) Final CO2 02/29/2024 11:41:43 22 22-32 (mmo l/L) Final Anion gap 02/29/2024 11:41:43 15 7-15 (mmol /L) Final Glucose 02/29/2024 11:41:43 90 70-120 (mg /dL) Final Calcium 02/29/2024 11:41:43 9.4 8.4-10.2 ( mg/dL) Final Performing Location LABORATORY [facility] [place] - [address] [place] [address]
--- OUTSIDE RECORDS SUMMARY | 2024-03-17 14:14 | External Medical Summary ---
Author Name Unknown Address Unknown Organization K01:[place] [facility] [place] [facility] [address] [facility] [address] Laboratory Report Ordering Provider Test Date Status CAROL WATSON 03/01/2024 23:51:42 Final CRRT Labs: Check at initiati on of CRRT, One hour after CRRT and Every 6 hours
Labs to be Drawn Peripherally
Send in a separate tube. Observation Date Value Abnormality Reference (Units ) Status Calcium.ionized [Moles/volume] in Blood by Ion-selective membrane electrode (ISE) 03/01/2024 23:51:42 1.15 1.13-1.32 (mmol/L) Final Performing Location [place] [facility] [place] [address] [facility] [address]
--- OUTSIDE RECORDS SUMMARY | 2024-03-17 14:14 | External Medical Summary ---
Author Name Unknown Address Unknown Organization K01:LABORATORY [facility] [place] - [address] [place] [address] Laboratory Report Ordering Provider Test Date Status FILI GIANG 03/02/2024 12:38:56 Final CRRT Labs: Check at initiati on of CRRT, One hour after CRRT and Every 6 hours
Labs to be Drawn Peripherally Observation Date Value Abnormality Reference (Units ) Status BUN 03/02/2024 12:38:56 18 6-20 (mg/dL) Final Creatinine 03/02/2024 12:38:56 4.5 Above high normal 0.6-1.2 (mg/dL) Final Glomerular filtration rate/1.73 sq M.predicted [Volume Rate/Area] in Serum, Plasma or Blood by Creatinine-based formula (CKD-EPI) 03/02/2024 12:38:56 16 Below low normal >=60 (mL/min) Final eGFR is calculated based on the CKD-EPI 2020 equation Sodium 03/02/2024 12:38:56 138 135-146 (m mol/L) Final Potassium 03/02/2024 12:38:56 3.8 3.5-5.1 (m mol/L) Final Cl 03/02/2024 12:38:56 103 98-107 (mm ol/L) Final CO2 03/02/2024 12:38:56 19 Below low normal 22- 32 (mmol/L) Final Anion gap 03/02/2024 12:38:56 16 Above high normal 7- 15 (mmol/L) Final Glucose 03/02/2024 12:38:56 81 70-120 (mg /dL) Final Calcium 03/02/2024 12:38:56 8.6 8.4-10.2 ( mg/dL) Final Performing Location LABORATORY [facility] [place] - [address] [place] [address]
--- OUTSIDE RECORDS SUMMARY | 2024-03-17 14:14 | External Medical Summary ---
Author Name Unknown Address Unknown Organization K01:LABORATORY [facility] [place] - [address] [place] [address] Laboratory Report Ordering Provider Test Date Status WALTERCAROL 03/01/2024 16:49:11 Final CRRT Labs: Check at initiati on of CRRT, One hour after CRRT and Every 6 hours
Labs to be Drawn Peripherally Observation Date Value Abnormality Reference (Units ) Status Phosphate 03/01/2024 16:49:11 5.0 Above high normal 2. 5-4.8 (mg/dL) Final Performing Location LABORATORY [facility] [place] - [address] [place] [address]
--- OUTSIDE RECORDS SUMMARY | 2024-03-17 14:14 | External Medical Summary ---
Author Name Unknown Address Unknown Organization K01:LABORATORY [facility] [place] - [address] [place] [address] [address] Laboratory Report Ordering Provider Test Date Status WALTERVIRIDIANAO 03/01/2024 14:28:18 Final CRRT Labs: check once daily if not done already
Labs to be Drawn Peripherally Observation Date Value Abnormality Reference (Units ) Status WBC, Total 03/01/2024 14:28:18 9.03 4.00-10.80 (K/uL) Final RBC 03/01/2024 14:28:18 2.39 4.50-5.25 (M/uL) Final Hemoglobin 03/01/2024 14:28:18 7.0 Below low normal 14.0-16.8 (g/dL) Final HCT 03/01/2024 14:28:18 22.3 Below low normal 40.0-48.4 (%) Final MCV 03/01/2024 14:28:18 93.3 82.0-99.5 (fL) Final MCH 03/01/2024 14:28:18 29.3 27.0-34.0 (pg) Final MCHC 03/01/2024 14:28:18 31.4 32.0-36.0 (g/dL) Final RDW 03/01/2024 14:28:18 14.9 11.5-15.5 (%) Final Platelets 03/01/2024 14:28:18 183 140-400 (K/uL) Final MPV 03/01/2024 14:28:18 9.0 6.6-11.1 (fL) Final Nucleated erythrocytes/100 leukocytes [Ratio] in Blood by Automated count 03/01/2024 14:28:18 0 <=0 (/100 WBCs) Final Performing Location LABORATORY [facility] [place] - [address] [facility] [address]
--- OUTSIDE RECORDS SUMMARY | 2024-03-17 14:14 | External Medical Summary ---
Author Name Unknown Address Unknown Organization K01:[place] [facility] [place] [facility] [place] [address] Laboratory Report Ordering Provider Test Date Status FILI GIANG 03/02/2024 05:37:51 Final CRRT Labs: check once daily if not done already
Labs to be Drawn Peripherally Observation Date Value Abnormality Reference (Units ) Status Albumin 03/02/2024 05:37:51 3.4 Below low normal 3.8-5.0 (g/dL) Final AST (Aspartate aminotransferase) 03/02/2024 05:37:51 52 Above high normal 10-50 (U/L) Final Alk Phos 03/02/2024 05:37:51 105 35-130 (U/L) Final ALT (Alanine aminotransferase) 03/02/2024 05:37:51 56 Above high normal 10-50 (U/L) Final Bilirubin, Total 03/02/2024 05:37:51 0.8 <=1.2 (mg/dL) Final Bilirubin, Direct 03/02/2024 05:37:51 0.6 Above high normal 0.0-0.3 (mg/dL) Final Protein 03/02/2024 05:37:51 6.3 6.0-8.3 (g/dL) Final Performing Location [facility] [place] [address] [facility] [address]
--- OUTSIDE RECORDS SUMMARY | 2024-03-17 14:14 | External Medical Summary ---
Author Name Unknown Address Unknown Organization K01:LABORATORY [facility] - [address] [place] [address] Laboratory Report Ordering Provider Test Date Status CHRISTIANO BRADY 03/03/2024 05:26:47 Final Observation Date Value Abnormality Reference (Units ) Status Phosphate 03/03/2024 05:26:47 5.2 Above high normal 2. 5-4.8 (mg/dL) Final Performing Location LABORATORY [facility] - [address] [place] [address]
--- OUTSIDE RECORDS SUMMARY | 2024-03-17 14:14 | External Medical Summary ---
Author Name Unknown Address Unknown Organization K01:LABORATORY [place] - [facility] [address] [facility] [address] Laboratory Report Ordering Provider Test Date Status CAROL WATSON 03/01/2024 18:24:40 Final CRRT Labs: Check at initiati on of CRRT, One hour after CRRT and Every 6 hours
Labs to be Drawn Peripherally
Send in a separate tube. Observation Date Value Abnormality Reference (Units ) Status Calcium.ionized [Moles/volume] in Blood by Ion-selective membrane electrode (ISE) 03/01/2024 18:24:40 1.15 1.13-1.32 (mmol/L) Final Performing Location LABORATORY [place] - [address] [facility] [address]
--- OUTSIDE RECORDS SUMMARY | 2024-03-17 14:14 | External Medical Summary ---
Author Name Unknown Address Unknown Organization K01:LABORATORY [facility] - [address] [place] [address] Laboratory Report Ordering Provider Test Date Status CHRISTIANO BRADY 03/01/2024 05:15:59 Final Observation Date Value Abnormality Reference (Units ) Status Phosphate 03/01/2024 05:15:59 4.4 2.5-4.8 (m g/dL) Final Performing Location LABORATORY [facility] - [address] [place] [address]
--- OUTSIDE RECORDS SUMMARY | 2024-03-17 14:14 | External Medical Summary ---
Author Name Unknown Address Unknown Organization K01:LAB[facility]ATORY [facility] [place] [address] [place] [address] Laboratory Report Ordering Provider Test Date Status WALTERKATIERICHA 02/29/2024 05:27:23 Final CRRT Labs: Check at initiati on of CRRT, One hour after CRRT and Every 6 hours
Labs to be Drawn Peripherally Observation Date Value Abnormality Reference (Units ) Status Magnesium 02/29/2024 05:27:23 2.6 1.5-2.6 (m g/dL) Final Performing Location LABORATORY [facility] [place] - [address] [place] [address]
--- OUTSIDE RECORDS SUMMARY | 2024-03-17 14:14 | External Medical Summary ---
Author Name Unknown Address Unknown Organization K01:[place] [place] [facility] [place] [address] Laboratory Report Ordering Provider Test Date Status FILI GIANG 03/02/2024 05:37:51 Final CRRT Labs: check once daily if not done already
Labs to be Drawn Peripherally

Warfarin Therapy
INR: 2.0-3.0 conventional anticoagulation
INR: 2.5-3.5 high intensity anticoagulation Observation Date Value Abnormality Reference (Units ) Status PT 03/02/2024 05:37:51 14.9 11.6-15.2 (seconds) Final INR 03/02/2024 05:37:51 1.2 0.8-1.2 Final Performing Location LAB[facility] [place] [address] [place] [address]
--- OUTSIDE RECORDS SUMMARY | 2024-03-17 14:14 | External Medical Summary ---
Author Name Unknown Address Unknown Organization K01:LABORATORY [facility] [place] - [address] [place] [address] Laboratory Report Ordering Provider Test Date Status WALTERKATIERICHA 03/01/2024 16:49:11 Final CRRT Labs: Check at initiati on of CRRT, One hour after CRRT and Every 6 hours
Labs to be Drawn Peripherally Observation Date Value Abnormality Reference (Units ) Status Magnesium 03/01/2024 16:49:11 2.9 Above high normal 1. 5-2.6 (mg/dL) Final Performing Location LABORATORY [facility] [place] - [address] [place] [address]
--- OUTSIDE RECORDS SUMMARY | 2024-03-17 14:14 | External Medical Summary ---
Author Name Unknown Address Unknown Organization K01:LABORATORY [facility] [place] - [address] [place] [address] Laboratory Report Ordering Provider Test Date Status FILI GIANG 03/02/2024 12:38:56 Final CRRT Labs: Check at initiati on of CRRT, One hour after CRRT and Every 6 hours
Labs to be Drawn Peripherally Observation Date Value Abnormality Reference (Units ) Status Magnesium 03/02/2024 12:38:56 2.6 1.5-2.6 (m g/dL) Final Performing Location LABORATORY [facility] - [address] [place] [address]
--- OUTSIDE RECORDS SUMMARY | 2024-03-17 14:14 | External Medical Summary ---
Author Name Unknown Address Unknown Organization K01:LABORATORY [facility] [place] - [address] [place] [address] Laboratory Report Ordering Provider Test Date Status WALTERKATIERICHA 02/29/2024 11:41:43 Final CRRT Labs: Check at initiati on of CRRT, One hour after CRRT and Every 6 hours
Labs to be Drawn Peripherally Observation Date Value Abnormality Reference (Units ) Status Magnesium 02/29/2024 11:41:43 2.4 1.5-2.6 (m g/dL) Final Performing Location LABORATORY [facility] [place] - [address] [place] [address]
--- OUTSIDE RECORDS SUMMARY | 2024-03-17 14:14 | External Medical Summary ---
Author Name Unknown Address Unknown Organization K01:[place] [facility] [place] [facility] [address] [facility] [address] Laboratory Report Ordering Provider Test Date Status CAROL WATSON 03/01/2024 16:49:11 Final CRRT Labs: Check at initiati on of CRRT, One hour after CRRT and Every 6 hours
Labs to be Drawn Peripherally
Send in a separate tube. Observation Date Value Abnormality Reference (Units ) Status Calcium.ionized [Moles/volume] in Blood by Ion-selective membrane electrode (ISE) 03/01/2024 16:49:11 1.18 1.13-1.32 (mmol/L) Final Performing Location LAB[facility]ORY [facility] [place] [address] [facility] [address]
--- OUTSIDE RECORDS SUMMARY | 2024-03-17 14:14 | External Medical Summary ---
Author Name Unknown Address Unknown Organization K01:LABORATORY [facility] [place] - [address] [address] Laboratory Report Ordering Provider Test Date Status FILI GIANG 03/03/2024 01:13:12 Final CRRT Labs: Check at initiati on of CRRT, One hour after CRRT and Every 6 hours
Labs to be Drawn Peripherally
Send in a separate tube. Observation Date Value Abnormality Reference (Units ) Status Body temperature 03/03/2024 01:13:12 37.0 (C) Final pH of Arterial blood 03/03/2024 01:13:12 7.319 Below low normal 7.350-7.450 (units) Final Carbon dioxide [Partial pressure] in Arterial blood 03/03/2024 01:13:12 41.1 35.0-45.0 (mmHg) Final Oxygen [Partial pressure] in Arterial blood 03/03/2024 01:13:12 116.0 Above high normal 75.0-100.0 (mmHg) Final Base excess, Arterial 03/03/2024 01:13:12 -4.6 Below low normal -2.0-2.0 (mmol/L) Final Hemoglobin [Mass/volume] in Blood by Oximetry 03/03/2024 01:13:12 7.6 Below low normal 14.0-16.8 (g/dL) Final Oxyhemoglobin, Arterial (FO2HB) 03/03/2024 01:13:12 95.7 94.0-99.0 (% total Hgb) Final Carboxyhemoglobin 03/03/2024 01:13:12 2.5 Above high normal <=1.5 (% total Hgb) Final Smokers: 0-9.0 % Methemoglobin 03/03/2024 01:13:12 1.0 <=1.5 (% total Hgb) Final Deoxyhemoglobin/Hemog lobin.total in Arterial blood 03/03/2024 01:13:12 0.8 0.0-5.0 (% total Hgb) Final Oxygen content in Arterial blood 03/03/2024 01:13:12 10.5 Below low normal 15.0-24.0 (%vol) Final Oxygen/Total gas setting [Volume Fraction] Ventilator 03/03/2024 01:13:12 40 (%) Final O2 FLOW, [facility] - [facility] 03/03/2024 01:13:12 Not Provided (L/min) Final Bicarbonate, Venous, POC (i-STAT) 03/03/2024 01:13:12 20.6 Below low normal 23.0-31.0 (mmol/L) Final Performing Location LABORATORY [facility] [place] - [facility] [address] [facility] [address]
--- OUTSIDE RECORDS SUMMARY | 2024-03-17 14:15 | External Medical Summary ---
Author Name Unknown Address Unknown Organization K01:LABORATORY [facility] [place] - [address] [place] [address] Laboratory Report Ordering Provider Test Date Status DENNIS GALVIN 02/28/2024 02:46:10 Final Observation Date Value Abnormality Reference (Units ) Status Lactic Acid, Whole Blood 02/28/2024 02:46:10 0.9 0.4-2.0 (mmol/L) Final Performing Location LABORATORY [facility] [place] - [address] [place] [address]
--- OUTSIDE RECORDS SUMMARY | 2024-03-17 14:15 | External Medical Summary ---
Author Name Unknown Address Unknown Organization K01:[facility]ORY [facility] [place] [address] [place] [address] Laboratory Report Ordering Provider Test Date Status VIRIDIANA WATSONJabari 02/29/2024 05:27:23 Final CRRT Labs: check once daily if not done already
Labs to be Drawn Peripherally

Warfarin Therapy
INR: 2.0-3.0 conventional anticoagulation
INR: 2.5-3.5 high intensity anticoagulation Observation Date Value Abnormality Reference (Units ) Status PT 02/29/2024 05:27:23 14.7 11.6-15.2 (seconds) Final INR 02/29/2024 05:27:23 1.2 0.8-1.2 Final Performing Location LAB[facility]ORY [facility] [place] [address] [place] [address]
--- OUTSIDE RECORDS SUMMARY | 2024-03-17 14:15 | External Medical Summary ---
Author Name Unknown Address Unknown Organization K01:[place] [facility] [place] [address] [facility] [address] Laboratory Report Ordering Provider Test Date Status WALTERKATIEOYO 02/28/2024 16:42:18 Final CRRT Labs: Check at initiati on of CRRT, One hour after CRRT and Every 6 hours
Labs to be Drawn Peripherally Observation Date Value Abnormality Reference (Units ) Status BUN 02/28/2024 16:42:18 29 Above high normal 6-20 (mg/dL) Final Creatinine 02/28/2024 16:42:18 7.5 Above high normal 0.6-1.2 (mg/dL) Final Glomerular filtration rate/1.73 sq M.predicted [Volume Rate/Area] in Serum, Plasma or Blood by Creatinine-based formula (CKD-EPI) 02/28/2024 16:42:18 8 Below low normal >=60 (mL/min) Final eGFR is calculated based on the CKD-EPI 2020 equation Sodium 02/28/2024 16:42:18 137 135-146 (m mol/L) Final Potassium 02/28/2024 16:42:18 3.7 3.5-5.1 (m mol/L) Final Cl 02/28/2024 16:42:18 100 98-107 (mm ol/L) Final CO2 02/28/2024 16:42:18 23 22-32 (mmo l/L) Final Anion gap 02/28/2024 16:42:18 14 7-15 (mmol /L) Final Glucose 02/28/2024 16:42:18 99 70-120 (mg /dL) Final Calcium 02/28/2024 16:42:18 8.7 8.4-10.2 ( mg/dL) Final Performing Location [facility] [facility] [place] [address] [place] [address]
--- OUTSIDE RECORDS SUMMARY | 2024-03-17 14:15 | External Medical Summary ---
Author Name Unknown Address Unknown Organization K01:LABORATORY [facility] [place] - [address] [place] [address] Laboratory Report Ordering Provider Test Date Status WALTERKATIERICHA 02/27/2024 12:08:05 Final CRRT Labs: Check at initiati on of CRRT, One hour after CRRT and Every 6 hours
Labs to be Drawn Peripherally Observation Date Value Abnormality Reference (Units ) Status Magnesium 02/27/2024 12:08:05 2.1 1.5-2.6 (m g/dL) Final Performing Location LABORATORY [facility] [place] - [address] [place] [address]
--- OUTSIDE RECORDS SUMMARY | 2024-03-17 14:15 | External Medical Summary ---
Author Name Unknown Address Unknown Organization K01:LABORATORY [facility] [place] - [address] [place] [address] Laboratory Report Ordering Provider Test Date Status CAROL WATSON 02/27/2024 05:35:28 Final CRRT Labs: Check at initiati on of CRRT, One hour after CRRT and Every 6 hours
Labs to be Drawn Peripherally
Send in a separate tube. Observation Date Value Abnormality Reference (Units ) Status Calcium.ionized [Moles/volume] in Blood by Ion-selective membrane electrode (ISE) 02/27/2024 05:35:28 1.12 Below low normal 1.13-1.32 (mmol/L) Final Performing Location LABORATORY [facility] [place] - [address] [place] [address]
--- OUTSIDE RECORDS SUMMARY | 2024-03-17 14:15 | External Medical Summary ---
Author Name Unknown Address Unknown Organization K01:[place] [facility] [place] [address] [place] [address] Laboratory Report Ordering Provider Test Date Status KATIE WATSONOYO 02/28/2024 23:48:09 Final CRRT Labs: Check at initiati on of CRRT, One hour after CRRT and Every 6 hours
Labs to be Drawn Peripherally Observation Date Value Abnormality Reference (Units ) Status BUN 02/28/2024 23:48:09 24 Above high normal 6-20 (mg/dL) Final Creatinine 02/28/2024 23:48:09 5.9 Above high normal 0.6-1.2 (mg/dL) Final Glomerular filtration rate/1.73 sq M.predicted [Volume Rate/Area] in Serum, Plasma or Blood by Creatinine-based formula (CKD-EPI) 02/28/2024 23:48:09 11 Below low normal >=60 (mL/min) Final eGFR is calculated based on the CKD-EPI 2020 equation Sodium 02/28/2024 23:48:09 138 135-146 (m mol/L) Final Potassium 02/28/2024 23:48:09 3.7 3.5-5.1 (m mol/L) Final Cl 02/28/2024 23:48:09 100 98-107 (mm ol/L) Final CO2 02/28/2024 23:48:09 24 22-32 (mmo l/L) Final Anion gap 02/28/2024 23:48:09 14 7-15 (mmol /L) Final Glucose 02/28/2024 23:48:09 91 70-120 (mg /dL) Final Calcium 02/28/2024 23:48:09 9.4 8.4-10.2 ( mg/dL) Final Performing Location [facility] [place] [address] [facility] [address]
--- OUTSIDE RECORDS SUMMARY | 2024-03-17 14:15 | External Medical Summary ---
Author Name Unknown Address Unknown Organization K01:[place] [facility] [place] [facility] [place] [address] Laboratory Report Ordering Provider Test Date Status WALTER,OLOWOYO 02/28/2024 23:48:09 Final CRRT Labs: check once daily if not done already
Labs to be Drawn Peripherally Observation Date Value Abnormality Reference (Units ) Status Albumin 02/28/2024 23:48:09 3.8 3.8-5.0 (g/dL) Final AST (Aspartate aminotransferase) 02/28/2024 23:48:09 33 10-50 (U/L) Final Alk Phos 02/28/2024 23:48:09 108 35-130 (U/L) Final ALT (Alanine aminotransferase) 02/28/2024 23:48:09 30 10-50 (U/L) Final Bilirubin, Total 02/28/2024 23:48:09 0.7 <=1.2 (mg/dL) Final Bilirubin, Direct 02/28/2024 23:48:09 0.4 Above high normal 0.0-0.3 (mg/dL) Final Protein 02/28/2024 23:48:09 6.6 6.0-8.3 (g/dL) Final Performing Location [place] [facility] [place] [address] [place] [address]
--- OUTSIDE RECORDS SUMMARY | 2024-03-17 14:15 | External Medical Summary ---
Author Name Unknown Address Unknown Organization K01:[place]ATORY [facility] [place] [address] [place] [address] Laboratory Report Ordering Provider Test Date Status WALTERKATIEOYO 02/27/2024 05:35:28 Final CRRT Labs: check once daily if not done already
Labs to be Drawn Peripherally Observation Date Value Abnormality Reference (Units ) Status WBC, Total 02/27/2024 05:35:28 12.90 Above high normal 4.00-10.80 (K/uL) Final RBC 02/27/2024 05:35:28 3.02 4.50-5.25 (M/uL) Final Hemoglobin 02/27/2024 05:35:28 8.9 Below low normal 14.0-16.8 (g/dL) Final HCT 02/27/2024 05:35:28 27.5 Below low normal 40.0-48.4 (%) Final MCV 02/27/2024 05:35:28 91.1 82.0-99.5 (fL) Final MCH 02/27/2024 05:35:28 29.5 27.0-34.0 (pg) Final MCHC 02/27/2024 05:35:28 32.4 32.0-36.0 (g/dL) Final RDW 02/27/2024 05:35:28 15.4 11.5-15.5 (%) Final Platelets 02/27/2024 05:35:28 182 140-400 (K/uL) Final MPV 02/27/2024 05:35:28 8.5 6.6-11.1 (fL) Final Nucleated erythrocytes/100 leukocytes [Ratio] in Blood by Automated count 02/27/2024 05:35:28 0 <=0 (/100 WBCs) Final Performing Location LABORATORY [facility] [place] - [address] [place] [address]
--- OUTSIDE RECORDS SUMMARY | 2024-03-17 14:15 | External Medical Summary ---
Author Name Unknown Address Unknown Organization K01:[place] [facility] [place] [facility] [address] [place] [address] Laboratory Report Ordering Provider Test Date Status CAROL WATSON 02/29/2024 05:27:23 Final CRRT Labs: check once daily if not done already
Labs to be Drawn Peripherally

Anticoagulation may affect testing. Refer to [facility] Test Catalog for a list of effects. Observation Date Value Abnormality Reference (Units ) Status aPTT panel - Platelet poor plasma 02/29/2024 05:27:23 47 Above high normal 21-38 (seconds) Final Performing Location LABOR[facility]ORY [facility] [place] [facility] [address] [place] [address]
--- OUTSIDE RECORDS SUMMARY | 2024-03-17 14:15 | External Medical Summary ---
Author Name Unknown Address Unknown Organization K01:LABORATORY [facility] [place] [address] [facility] [address] Laboratory Report Ordering Provider Test Date Status WALTERKATIEOYO 02/27/2024 17:45:32 Final CRRT Labs: Check at initiati on of CRRT, One hour after CRRT and Every 6 hours
Labs to be Drawn Peripherally Observation Date Value Abnormality Reference (Units ) Status BUN 02/27/2024 17:45:32 24 Above high normal 6-20 (mg/dL) Final Creatinine 02/27/2024 17:45:32 6.9 Above high normal 0.6-1.2 (mg/dL) Final Glomerular filtration rate/1.73 sq M.predicted [Volume Rate/Area] in Serum, Plasma or Blood by Creatinine-based formula (CKD-EPI) 02/27/2024 17:45:32 9 Below low normal >=60 (mL/min) Final eGFR is calculated based on the CKD-EPI 2020 equation Sodium 02/27/2024 17:45:32 136 135-146 (m mol/L) Final Potassium 02/27/2024 17:45:32 3.6 3.5-5.1 (m mol/L) Final Cl 02/27/2024 17:45:32 99 98-107 (mm ol/L) Final CO2 02/27/2024 17:45:32 24 22-32 (mmo l/L) Final Anion gap 02/27/2024 17:45:32 13 7-15 (mmol /L) Final Glucose 02/27/2024 17:45:32 98 70-120 (mg /dL) Final Calcium 02/27/2024 17:45:32 9.5 8.4-10.2 ( mg/dL) Final Performing Location LABORATORY [facility] [place] [address] [facility] [address]
--- OUTSIDE RECORDS SUMMARY | 2024-03-17 14:15 | External Medical Summary ---
Author Name Unknown Address Unknown Organization K01:LABORATORY [facility] [place] - [address] [place] [address] Laboratory Report Ordering Provider Test Date Status WALTERKATIERICHA 02/27/2024 05:35:28 Final CRRT Labs: Check at initiati on of CRRT, One hour after CRRT and Every 6 hours
Labs to be Drawn Peripherally Observation Date Value Abnormality Reference (Units ) Status Magnesium 02/27/2024 05:35:28 2.1 1.5-2.6 (m g/dL) Final Performing Location LABORATORY [facility] [place] - [address] [place] [address]
--- OUTSIDE RECORDS SUMMARY | 2024-03-17 14:15 | External Medical Summary ---
Author Name Unknown Address Unknown Organization K01:[place]ORY [facility] [place] [facility] [address] [facility] [address] Laboratory Report Ordering Provider Test Date Status CHRISTIANO BRADY 02/28/2024 03:55:30 Final Observation Date Value Abnormality Reference (Units ) Status WBC, Total 02/28/2024 03:55:30 15.69 Above high normal 4.00-10.80 (K/uL) Final RBC 02/28/2024 03:55:30 3.01 4.50-5.25 (M/uL) Final Hemoglobin 02/28/2024 03:55:30 8.6 Below low normal 14.0-16.8 (g/dL) Final HCT 02/28/2024 03:55:30 27.2 Below low normal 40.0-48.4 (%) Final MCV 02/28/2024 03:55:30 90.4 82.0-99.5 (fL) Final MCH 02/28/2024 03:55:30 28.6 27.0-34.0 (pg) Final MCHC 02/28/2024 03:55:30 31.6 32.0-36.0 (g/dL) Final RDW 02/28/2024 03:55:30 14.8 11.5-15.5 (%) Final Platelets 02/28/2024 03:55:30 207 140-400 (K/uL) Final MPV 02/28/2024 03:55:30 8.9 6.6-11.1 (fL) Final Nucleated erythrocytes/100 leukocytes [Ratio] in Blood by Automated count 02/28/2024 03:55:30 0 <=0 (/100 WBCs) Final Performing Location LAB[facility]ATORY [facility] [place] [address] [facility] [address]
--- OUTSIDE RECORDS SUMMARY | 2024-03-17 14:15 | External Medical Summary ---
Author Name Unknown Address Unknown Organization K01:LAB[place]ATORY [facility] [place] - [address] [facility] [address] Laboratory Report Ordering Provider Test Date Status CAROL WATSON 02/28/2024 23:48:09 Final CRRT Labs: Check at initiati on of CRRT, One hour after CRRT and Every 6 hours
Labs to be Drawn Peripherally
Send in a separate tube. Observation Date Value Abnormality Reference (Units ) Status Calcium.ionized [Moles/volume] in Blood by Ion-selective membrane electrode (ISE) 02/28/2024 23:48:09 1.16 1.13-1.32 (mmol/L) Final Performing Location LABORATORY [facility] [place] - [address] [facility] [address]
--- OUTSIDE RECORDS SUMMARY | 2024-03-17 14:15 | External Medical Summary ---
Author Name Unknown Address Unknown Organization K01:[place] [facility] [place] [facility] [address] [facility] [address] Laboratory Report Ordering Provider Test Date Status CAROL WATSON 02/27/2024 17:45:32 Final CRRT Labs: Check at initiati on of CRRT, One hour after CRRT and Every 6 hours
Labs to be Drawn Peripherally
Send in a separate tube. Observation Date Value Abnormality Reference (Units ) Status Calcium.ionized [Moles/volume] in Blood by Ion-selective membrane electrode (ISE) 02/27/2024 17:45:32 1.20 1.13-1.32 (mmol/L) Final Performing Location [place] [facility] [place] [address] [facility] [address]
--- OUTSIDE RECORDS SUMMARY | 2024-03-17 14:15 | External Medical Summary ---
Author Name Unknown Address Unknown Organization K01:LABORATORY [facility] - [address] [place] [address] Laboratory Report Ordering Provider Test Date Status CHRISTIANO BRADY 02/28/2024 03:55:30 Final Observation Date Value Abnormality Reference (Units ) Status Phosphate 02/28/2024 03:55:30 4.5 2.5-4.8 (m g/dL) Final Performing Location LABORATORY [facility] - [address] [place] [address]
--- OUTSIDE RECORDS SUMMARY | 2024-03-17 14:15 | External Medical Summary ---
Author Name Unknown Address Unknown Organization K01:[place] [facility] [place] [address] [place] [address] Laboratory Report Ordering Provider Test Date Status CAROL WATSON 02/27/2024 17:45:32 Final CRRT Labs: Check at initiati on of CRRT, One hour after CRRT and Every 6 hours
Labs to be Drawn Peripherally Observation Date Value Abnormality Reference (Units ) Status Phosphate 02/27/2024 17:45:32 4.2 2.5-4.8 (m g/dL) Final Performing Location [facility]ORY [facility] [place] [address] [place] [address]
--- OUTSIDE RECORDS SUMMARY | 2024-03-17 14:15 | External Medical Summary ---
Author Name Unknown Address Unknown Organization K01:LABORATORY [facility] [place] - [address] [facility] [address] Laboratory Report Ordering Provider Test Date Status WALTEROLGUADALUPEOYO 02/27/2024 05:35:28 Final CRRT Labs: check once daily if not done already
Labs to be Drawn Peripherally Observation Date Value Abnormality Reference (Units ) Status SYNC LEUKOCYTES IN BLOOD BY AUTOMATED COUNT 02/27/2024 05:35:28 12.90 Above high normal 4.00-10.80 (K/uL) Final Segs 02/27/2024 05:35:28 72.6 40.0-75.0 (%) Final Lymphs % 02/27/2024 05:35:28 11.4 Below low normal 18.0-42.0 (%) Final Monos 02/27/2024 05:35:28 9.1 1.0-11.0 (%) Final Eosinophils 02/27/2024 05:35:28 5.6 0.0-6.0 (%) Final Basos 02/27/2024 05:35:28 0.4 0.0-2.0 (%) Final Immature Granulocyte, Percent 02/27/2024 05:35:28 0.9 0.0-2.0 (%) Final Absolute Segs 02/27/2024 05:35:28 9.38 Above high normal 1.80-7.70 (K/uL) Final Lymphs, absolute 02/27/2024 05:35:28 1.47 1.00-4.80 (K/ul) Final Monos, Abs 02/27/2024 05:35:28 1.17 Above high normal 0.00-1.10 (K/uL) Final Eos, Abs 02/27/2024 05:35:28 0.72 Above high normal 0.00-0.70 (K/uL) Final Basos, Abs 02/27/2024 05:35:28 0.05 0.00-0.20 (K/uL) Final Immature Granulocytes, Number 02/27/2024 05:35:28 0.11 0.00-0.20 (K/uL) Final Performing Location LABORATORY [facility] [place] - [facility] [address] [facility] [address]
--- OUTSIDE RECORDS SUMMARY | 2024-03-17 14:15 | External Medical Summary ---
Author Name Unknown Address Unknown Organization K01:[place] [facility] [place] [address] [facility] [address] Laboratory Report Ordering Provider Test Date Status WALTERKATIEOYO 02/29/2024 05:27:23 Final CRRT Labs: check once daily if not done already
Labs to be Drawn Peripherally Observation Date Value Abnormality Reference (Units ) Status SYNC LEUKOCYTES IN BLOOD BY AUTOMATED COUNT 02/29/2024 05:27:23 8.98 4.00-10.80 (K/uL) Final Segs 02/29/2024 05:27:23 68.0 40.0-75.0 (%) Final Lymphs % 02/29/2024 05:27:23 13.8 Below low normal 18.0-42.0 (%) Final Monos 02/29/2024 05:27:23 9.9 1.0-11.0 (%) Final Eosinophils 02/29/2024 05:27:23 5.3 0.0-6.0 (%) Final Basos 02/29/2024 05:27:23 0.6 0.0-2.0 (%) Final Immature Granulocyte, Percent 02/29/2024 05:27:23 2.4 Above high normal 0.0-2.0 (%) Final Absolute Segs 02/29/2024 05:27:23 6.10 1.80-7.70 (K/uL) Final Lymphs, absolute 02/29/2024 05:27:23 1.24 1.00-4.80 (K/ul) Final Monos, Abs 02/29/2024 05:27:23 0.89 0.00-1.10 (K/uL) Final Eos, Abs 02/29/2024 05:27:23 0.48 0.00-0.70 (K/uL) Final Basos, Abs 02/29/2024 05:27:23 0.05 0.00-0.20 (K/uL) Final Immature Granulocytes, Number 02/29/2024 05:27:23 0.22 Above high normal 0.00-0.20 (K/uL) Final Performing Location [place] [facility] [place] [facility] [address] [facility] [address]
--- OUTSIDE RECORDS SUMMARY | 2024-03-17 14:15 | External Medical Summary ---
Author Name Unknown Address Unknown Organization K01:LABORATORY [facility] [place] - [address] [address] Laboratory Report Ordering Provider Test Date Status WALTERKATIERICHA 02/28/2024 23:48:09 Final CRRT Labs: Check at initiati on of CRRT, One hour after CRRT and Every 6 hours
Labs to be Drawn Peripherally Observation Date Value Abnormality Reference (Units ) Status Magnesium 02/28/2024 23:48:09 2.5 1.5-2.6 (m g/dL) Final Performing Location LABORATORY [facility] [place] - [address] [place] [address]
--- OUTSIDE RECORDS SUMMARY | 2024-03-17 14:15 | External Medical Summary ---
Author Name Unknown Address Unknown Organization K01:LABORATORY [facility] [place] - [address] [address] Laboratory Report Ordering Provider Test Date Status CAROL WATSON 02/28/2024 16:42:18 Final CRRT Labs: Check at initiati on of CRRT, One hour after CRRT and Every 6 hours
Labs to be Drawn Peripherally Observation Date Value Abnormality Reference (Units ) Status Phosphate 02/28/2024 16:42:18 4.3 2.5-4.8 (m g/dL) Final Performing Location LABORATORY [facility] [place] - [address] [place] [address]
--- OUTSIDE RECORDS SUMMARY | 2024-03-17 14:15 | External Medical Summary ---
Author Name Unknown Address Unknown Organization K01:[place] [facility] [place] [address] [address] Laboratory Report Ordering Provider Test Date Status CAROL WATSON 02/28/2024 23:48:09 Final CRRT Labs: Check at initiati on of CRRT, One hour after CRRT and Every 6 hours
Labs to be Drawn Peripherally Observation Date Value Abnormality Reference (Units ) Status Phosphate 02/28/2024 23:48:09 3.6 2.5-4.8 (m g/dL) Final Performing Location [facility] [place] [address] [place] [address]
--- OUTSIDE RECORDS SUMMARY | 2024-03-17 14:15 | External Medical Summary ---
Author Name Unknown Address Unknown Organization K01:LABORATORY [facility] [place] - [facility] [place] [place] [address] Laboratory Report Ordering Provider Test Date Status WALTER,OLOWOYO 02/29/2024 05:27:23 Final CRRT Labs: check once daily if not done already
Labs to be Drawn Peripherally Observation Date Value Abnormality Reference (Units ) Status Albumin 02/29/2024 05:27:23 3.8 3.8-5.0 (g/dL) Final AST (Aspartate aminotransferase) 02/29/2024 05:27:23 40 10-50 (U/L) Final Alk Phos 02/29/2024 05:27:23 111 35-130 (U/L) Final ALT (Alanine aminotransferase) 02/29/2024 05:27:23 37 10-50 (U/L) Final Bilirubin, Total 02/29/2024 05:27:23 0.7 <=1.2 (mg/dL) Final Bilirubin, Direct 02/29/2024 05:27:23 0.4 Above high normal 0.0-0.3 (mg/dL) Final Protein 02/29/2024 05:27:23 6.1 6.0-8.3 (g/dL) Final Performing Location LABORATORY [facility] [place] - [address] [place] [address]
--- OUTSIDE RECORDS SUMMARY | 2024-03-17 14:15 | External Medical Summary ---
Author Name Unknown Address Unknown Organization K01:LABORATORY [facility] [place] - [address] [place] [address] Laboratory Report Ordering Provider Test Date Status WALTER,OLOWOYO 02/27/2024 05:35:28 Final CRRT Labs: check once daily if not done already
Labs to be Drawn Peripherally Observation Date Value Abnormality Reference (Units ) Status Albumin 02/27/2024 05:35:28 3.9 3.8-5.0 (g/dL) Final AST (Aspartate aminotransferase) 02/27/2024 05:35:28 29 10-50 (U/L) Final Alk Phos 02/27/2024 05:35:28 96 35-130 (U/L) Final ALT (Alanine aminotransferase) 02/27/2024 05:35:28 36 10-50 (U/L) Final Bilirubin, Total 02/27/2024 05:35:28 0.5 <=1.2 (mg/dL) Final Bilirubin, Direct 02/27/2024 05:35:28 0.2 0.0-0.3 (mg/dL) Final Protein 02/27/2024 05:35:28 7.2 6.0-8.3 (g/dL) Final Performing Location LABORATORY [facility] [place] - [address] [place] [address]
--- OUTSIDE RECORDS SUMMARY | 2024-03-17 14:15 | External Medical Summary ---
Author Name Unknown Address Unknown Organization K01:[place] [facility] [place] [address] [place] [address] Laboratory Report Ordering Provider Test Date Status WALTEROLGUADALUPEOYO 02/27/2024 12:08:05 Final CRRT Labs: Check at initiati on of CRRT, One hour after CRRT and Every 6 hours
Labs to be Drawn Peripherally Observation Date Value Abnormality Reference (Units ) Status BUN 02/27/2024 12:08:05 28 Above high normal 6-20 (mg/dL) Final Creatinine 02/27/2024 12:08:05 8.4 Above high normal 0.6-1.2 (mg/dL) Final Glomerular filtration rate/1.73 sq M.predicted [Volume Rate/Area] in Serum, Plasma or Blood by Creatinine-based formula (CKD-EPI) 02/27/2024 12:08:05 7 Below low normal >=60 (mL/min) Final eGFR is calculated based on the CKD-EPI 2020 equation Sodium 02/27/2024 12:08:05 139 135-146 (m mol/L) Final Potassium 02/27/2024 12:08:05 3.7 3.5-5.1 (m mol/L) Final Cl 02/27/2024 12:08:05 100 98-107 (mm ol/L) Final CO2 02/27/2024 12:08:05 24 22-32 (mmo l/L) Final Anion gap 02/27/2024 12:08:05 15 7-15 (mmol /L) Final Glucose 02/27/2024 12:08:05 107 70-120 (mg /dL) Final Calcium 02/27/2024 12:08:05 9.3 8.4-10.2 ( mg/dL) Final Performing Location [facility] [place] [address] [facility] [address]
--- OUTSIDE RECORDS SUMMARY | 2024-03-17 14:15 | External Medical Summary ---
Author Name Unknown Address Unknown Organization K01:LABORATORY [facility] [place] - [address] [address] Laboratory Report Ordering Provider Test Date Status WALTERVIRIDIANAO 02/28/2024 23:48:09 Final CRRT Labs: check once daily if not done already
Labs to be Drawn Peripherally Observation Date Value Abnormality Reference (Units ) Status WBC, Total 02/28/2024 23:48:09 9.51 4.00-10.80 (K/uL) Final RBC 02/28/2024 23:48:09 2.72 4.50-5.25 (M/uL) Final Hemoglobin 02/28/2024 23:48:09 7.9 Below low normal 14.0-16.8 (g/dL) Final HCT 02/28/2024 23:48:09 24.7 Below low normal 40.0-48.4 (%) Final MCV 02/28/2024 23:48:09 90.8 82.0-99.5 (fL) Final MCH 02/28/2024 23:48:09 29.0 27.0-34.0 (pg) Final MCHC 02/28/2024 23:48:09 32.0 32.0-36.0 (g/dL) Final RDW 02/28/2024 23:48:09 14.7 11.5-15.5 (%) Final Platelets 02/28/2024 23:48:09 168 140-400 (K/uL) Final MPV 02/28/2024 23:48:09 8.7 6.6-11.1 (fL) Final Nucleated erythrocytes/100 leukocytes [Ratio] in Blood by Automated count 02/28/2024 23:48:09 0 <=0 (/100 WBCs) Final Performing Location LABORATORY [facility] [place] - [address] [place] [address]
--- OUTSIDE RECORDS SUMMARY | 2024-03-17 14:15 | External Medical Summary ---
Author Name Unknown Address Unknown Organization K01:[place] [facility] [place] [address] [address] Laboratory Report Ordering Provider Test Date Status WALTERKATIERICHA 02/27/2024 05:35:28 Final CRRT Labs: Check at initiati on of CRRT, One hour after CRRT and Every 6 hours
Labs to be Drawn Peripherally Observation Date Value Abnormality Reference (Units ) Status Phosphate 02/27/2024 05:35:28 5.5 Above high normal 2. 5-4.8 (mg/dL) Final Performing Location [place] [facility] [place] [address] [address]
--- OUTSIDE RECORDS SUMMARY | 2024-03-17 14:15 | External Medical Summary ---
Author Name Unknown Address Unknown Organization K01:LABORATORY [facility] [place] [address] [place] [address] Laboratory Report Ordering Provider Test Date Status CHRISTIANO BRADY 02/28/2024 03:55:30 Final Observation Date Value Abnormality Reference (Units ) Status BUN 02/28/2024 03:55:30 29 Above high normal 6-20 (mg/dL) Final Creatinine 02/28/2024 03:55:30 8.6 Above high normal 0.6-1.2 (mg/dL) Final Glomerular filtration rate/1.73 sq M.predicted [Volume Rate/Area] in Serum, Plasma or Blood by Creatinine-based formula (CKD-EPI) 02/28/2024 03:55:30 7 Below low normal >=60 (mL/min) Final eGFR is calculated based on the CKD-EPI 2020 equation Sodium 02/28/2024 03:55:30 136 135-146 (m mol/L) Final Potassium 02/28/2024 03:55:30 3.8 3.5-5.1 (m mol/L) Final Cl 02/28/2024 03:55:30 98 98-107 (mm ol/L) Final CO2 02/28/2024 03:55:30 22 22-32 (mmo l/L) Final Anion gap 02/28/2024 03:55:30 16 Above high normal 7- 15 (mmol/L) Final Glucose 02/28/2024 03:55:30 106 70-120 (mg /dL) Final Calcium 02/28/2024 03:55:30 9.1 8.4-10.2 ( mg/dL) Final Performing Location LABORATORY [facility] [place] - [address] [place] [address]
--- OUTSIDE RECORDS SUMMARY | 2024-03-17 14:15 | External Medical Summary ---
Author Name Unknown Address Unknown Organization K01:LABORATORY [facility] [place] - [address] [place] [address] [place] [address] Laboratory Report Ordering Provider Test Date Status CAROL WATSON 02/29/2024 05:27:23 Final CRRT Labs: Check at initiati on of CRRT, One hour after CRRT and Every 6 hours
Labs to be Drawn Peripherally
Send in a separate tube. Observation Date Value Abnormality Reference (Units ) Status Calcium.ionized [Moles/volume] in Blood by Ion-selective membrane electrode (ISE) 02/29/2024 05:27:23 1.21 1.13-1.32 (mmol/L) Final Performing Location LABORATORY [facility] [place] - [address] [place] [address]
--- OUTSIDE RECORDS SUMMARY | 2024-03-17 14:15 | External Medical Summary ---
Author Name Unknown Address Unknown Organization K01:LABORATORY [facility] [place] - [address] [place] [address] Laboratory Report Ordering Provider Test Date Status LALA BURCH 02/27/2024 05:35:28 Final Observation Date Value Abnormality Reference (Units ) Status Troponin T 02/27/2024 05:35:28 114 Above upper panic limits <=22 (ng/L) Final Performing Location LABORATORY [facility] - [address] [place] [address]
--- OUTSIDE RECORDS SUMMARY | 2024-03-17 14:15 | External Medical Summary ---
Author Name Unknown Address Unknown Organization K01:LABORATORY [facility] [place] [address] [place] [address] Laboratory Report Ordering Provider Test Date Status DENNIS GALVIN 02/28/2024 03:55:20 Final Observation Date Value Abnormality Reference (Units) Status Bacteria identified in Specimen by Culture 02/28/2024 03:55:20 Specimen unsatisfactory. Not tested. Final Gram Stain 02/28/2024 03:55:20 Specimen contaminated with epithelial cells lead customer service representative of oropharyngeal contamination. Further processing may yield potentially misleading results. Final Test: Culture, Respiratory, Lower, Aerobic
Specimen Source: Sputum
Specimen Type: Lower Respiratory
Specimen Date: 02/28/2024354
Result Date: 02/28/2024611
Result Status: Final result
Resulting Lab: LABORATORY [facility] [place]
[address]
[place] [address]

CULTURE

Specimen unsatisfactory. Not tested.

STAIN

Specimen contaminated with epithelial cells lead customer service representative of oropharyngeal
contamination. Further processing may yield potentially misleading results.

null Performing Location LABORATORY [facility] [place] - [address] [place] [id number]
--- OUTSIDE RECORDS SUMMARY | 2024-03-17 14:15 | External Medical Summary ---
Author Name Unknown Address Unknown Organization K01:[place] [facility] [place] [address] [place] [address] Laboratory Report Ordering Provider Test Date Status WALTERKATIEOYO 02/29/2024 05:27:23 Final CRRT Labs: check once daily if not done already
Labs to be Drawn Peripherally Observation Date Value Abnormality Reference (Units ) Status WBC, Total 02/29/2024 05:27:23 8.98 4.00-10.80 (K/uL) Final RBC 02/29/2024 05:27:23 2.76 4.50-5.25 (M/uL) Final Hemoglobin 02/29/2024 05:27:23 8.0 Below low normal 14.0-16.8 (g/dL) Final HCT 02/29/2024 05:27:23 25.4 Below low normal 40.0-48.4 (%) Final MCV 02/29/2024 05:27:23 92.0 82.0-99.5 (fL) Final MCH 02/29/2024 05:27:23 29.0 27.0-34.0 (pg) Final MCHC 02/29/2024 05:27:23 31.5 32.0-36.0 (g/dL) Final RDW 02/29/2024 05:27:23 14.6 11.5-15.5 (%) Final Platelets 02/29/2024 05:27:23 178 140-400 (K/uL) Final MPV 02/29/2024 05:27:23 9.0 6.6-11.1 (fL) Final Nucleated erythrocytes/100 leukocytes [Ratio] in Blood by Automated count 02/29/2024 05:27:23 0 <=0 (/100 WBCs) Final Performing Location [place] [facility] [place] [address] [place] [address]
--- OUTSIDE RECORDS SUMMARY | 2024-03-17 14:15 | External Medical Summary ---
Author Name Unknown Address Unknown Organization K01:[place] [facility] [facility] [address] [place] [address] Laboratory Report Ordering Provider Test Date Status CAROL WATSON 02/27/2024 05:35:28 Final CRRT Labs: check once daily if not done already
Labs to be Drawn Peripherally

Anticoagulation may affect testing. Refer to [facility] Test Catalog for a list of effects. Observation Date Value Abnormality Reference (Units ) Status aPTT panel - Platelet poor plasma 02/27/2024 05:35:28 44 Above high normal 21-38 (seconds) Final Performing Location [place] [facility] [facility] [address] [place] [address]
--- OUTSIDE RECORDS SUMMARY | 2024-03-17 14:15 | External Medical Summary | Summary of Care ---
Author Name Unknown Organization [facility] Address [address] [place] [address] Phone [phone] Care Team Providers Care Waiter/Waitress Name Role Phone Tomer Garner MD Primary Care Provider [phone] Reason for Visit * Auth/Cert Specialty Diagnoses / Procedures Referred By Adis t Referred To Contact [facility] [address] [place] [address] Phone: [phone] Emergency Medicine [facility] [address] [place] [address] Referral ID Status Reason Start Date Expiration Date Visits Re quested Visits Authorized [id number] Encounter Details Date Type Department Care Team (Latest Contact Info) Description 02/26/2024 8:28 AM EDT - 02/26/2024 11:59 PM EDT Hospital Encounter Cardiac Studies [place] [address] [place] [address] Discharge Disposition: Home - Self Care Allergies No known active allergiesdocumented as of this encounter (statuses as of 02/27/2024) Medications Medication Sig Dispensed Refills Start Date End Date Status Folic Acid 1 MG Oral Tablet Take [...] 02/26/20 24 Discontinued( Medication List Clean Up) Gentamicin [...] 02/26/20 24 Discontinued( Medication List Clean Up) Syringe 21G X 1" 3 ML Retacrit 13.000 U weekly. 12 Each 6 12/04/2023 Suspended Additional Information Patient not taking.Reported on 02/08/2024 BD Insulin Syringe 25G X 5/8" 1 ML (Insulin Syringe-Needle U-100)Indication s:ESRD on peritoneal dialysis (HCC) Use to inject Retacrit weekly 12 Each 6 12/20/2023 Suspended Additional Information Patient not taking.Reported on 02/08/2024 Lovastatin 10 MG Oral TabletIndication s:Kidney replaced by transplant Take 1 Tablet by mouth in the morning. 90 Tablet 3 12/25/2023 Suspended Additional Information cycloSPORINE Modified 25 MG Oral CapsuleIndicatio ns:Kidney replaced by transplant Take 2 capsules in the morning and 2 capsules in the evening 360 Capsule 3 12/25/2023 Suspended Additional Information Auryxia 1 GM 210 MG(Fe) Oral Tablet (Ferric Citrate) Take 1 Tablet by mouth with meals and snacks. 120 Tablet 11 12/26/2023 Suspended Additional Information Retacrit 98430 UNIT/ML Injection Solution (Epoetin melita-epbx ESRD)Indications :ESRD on peritoneal dialysis (HCC) Inject 0.82 mL under the skin once a week. 5 mL 01/18/2024 03/01/20 24 Suspended Additional Information BD Syringe Slip Tip [...] 60 Tablet 11 02/08/2024 Suspended Additional Information documented as of this encounter (statuses as of 02/27/2024) Active Problems Problem Noted Date Diagnosed Date Hyperphosphatemia associated with renal failure 02/26/2024 Embolic [...] as of this encounter (statuses as of 02/27/2024) Resolved Problems Problem Noted Date Diagnosed Date [...] as of this encounter (statuses as of 02/27/2024) Immunizations Name Administration Dates Next Due COVID-19 mRNA, LNP-s, No Pre serve, 2-Dose Series (Moderna) 11/23/2020,10/18/2020 DTP Vaccine 1981,1981,1981 HEP B - Hepatitis B (Dialysis/Immumocomp Pt) 05/02/2023,04/04/2023 MMR - Measles/Mumps/Rubella Vaccine 05/11/1982 OPV - Polio Virus Vaccine (Oral) 1981,04/11 Pneumococcal Conjugate Vacci ne, 20-valent ([id number]) 11/17/2022 Seasonal Influenza, PF, 6 M & [...] money to get more. Never true 11/03/2023 Sex and Gender Information Value Date [...] No 11/01/2022 documented as of this encounter Plan of Treatment Upcoming Encounters Date Type Department Care Team (Late st Contact Info) Description 03/05/2024 1:00 PM EDT Office Visit Home Dialysis [address] [id number] [facility], Peritoneal Dialysis [address] [place] [address] 03/11/2024 8:00 AM EDT Treatment Home Dialysis [place] [id number] Nurse, [employer] [place] [address] [place] [address] 03/28/2024 1:00 PM EDT Office Visit Home Dialysis [address] [id number] Mdc, Peritoneal Dialysis [address] [place] [facility] [place] [address] 04/11/2024 8:00 AM EDT Treatment Home Dialysis [place] [address] Nurse, [employer] [place] [address] [id number] 04/12/2024 9:20 AM EDT Office Visit Neurosurgery, [place] [address] [place], [place] [phone] Latasha Castellanos PAVeronika [address] [place] [facility] [place] [address] 04/15/2024 1:00 PM EDT Hospital Encounter Radiology, [place] [address] [place] [address] 04/16/2024 11:00 AM EDT Office Visit Transplant Clinic, [place] [address] [place], [place] [phone] Gutierrez Monae MD [address] [place] [address] Win Julio MD [address] [place] [address] Araceli Nurse Renal Transplant [address] [place] [address] Chana Robin, SUGAR DRIER [address] [place], [place] [phone] 04/16/2024 2:50 PM EDT Laboratory Outpatient Laboratory, [place] [address] [place] [id number] [place], Lab B1a [address], [place] [id number] 04/17/2024 1:00 PM EDT Appointment Radiology, [place] [address] [place], [place] [phone] 04/29/2024 1:00 PM EDT Office Visit Home Dialysis Lance Fernández [place] [address] [place], [place] [phone] [facility]dc, Peritoneal Dialysis [address] [place], [place] [id number] 05/27/2024 12:40 PM EDT Nutrition Services Nutrition & Weight Management, [place] [address] [place], [place] [phone] Jaz Best, ROLYN [address], [place] [id number] Health Maintenance Due Date Last Done Comments COVID-19 Vaccine (3 - Moderna risk series) 12/21/2020 11/23/2020, 10/18/2020 Hepatitis B (3 of 4 - Risk Dialysis Recombivax 3-dose series) 10/05/2023 05/02/2023, 04/04/2023 Depression Screening 12/06/2024 12/07/2023 Diabetes Screening 02/26/2027 02/27/2024, 0 02/27/2024, 02/26/2024, Additional history exists DTaP,Tdap,and Td Vaccines (6 [...] Not on filedocumented as of this encounter Procedures Procedure Name Priority Date/Time Associated Diagnosis Comments ECHO, COMPLETE (2D), TRANS-THORACIC Routine 02/26/2024 8:32 AM EDT Stroke (HCC) documented in this encounter Visit Diagnoses Diagnosis 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 Cerebral embolism with cerebral infarction Diastolic congestive heart failure, unspecified HF chronicity (HCC) documented in this encounter Administered Medications Inactive Administered Medications - up to 3 most recent administrations Medication Order MAR Action Action Date Dose Rate Site perflutren lipid microsphere inj SUSP 1.956 mg 1.956 mg, Intravenous, ONCE PRN Other, For Echo Only - Suboptimal Echo Images, Starting on Mon02/26/24 at 0829, Until Mon02/26/24 at 1028, For 2 hours, Administer IVP over 45 seconds, Cardiac Studies_HODHOV Given 02/26/2024 8:31 AM EDT 1.956 mg documented in this encounter Advance Directives * Full Code [...] Advance Directives occurred with: Patient Care Teams Waiter/Waitress Relationship Specialty Start Date End Date Tomer Garner MD [address] [place] [address] PCP - General 09/19/02 documented as of this encounter
--- OUTSIDE RECORDS SUMMARY | 2024-03-17 14:15 | External Medical Summary ---
Author Name Unknown Address Unknown Organization [id number]:LABORATORY [facility] [place] - [address] [facility] [address] Laboratory Report Ordering Provider Test Date Status CAROL WATSON 02/27/2024 12:08:05 Final CRRT Labs: Check at initiati on of CRRT, One hour after CRRT and Every 6 hours
Labs to be Drawn Peripherally
Send in a separate tube. Observation Date Value Abnormality Reference (Units ) Status Calcium.ionized [Moles/volume] in Blood by Ion-selective membrane electrode (ISE) 02/27/2024 12:08:05 1.14 1.13-1.32 (mmol/L) Final Performing Location LABORATORY [facility] [place] - [address] [facility] [address]
--- OUTSIDE RECORDS SUMMARY | 2024-03-17 14:15 | External Medical Summary ---
Author Name Unknown Address Unknown Organization [id number]:[facility] - [address] [place] [address] Laboratory Report Ordering Provider Test Date Status DENNIS GALVIN 02/28/2024 02:46:10 Final Observation Date Value Abnormality Reference (Units ) Status Troponin T 02/28/2024 02:46:10 100 Above high normal < =22 (ng/L) Final Performing Location [facility] - [address] [place] [address]
--- OUTSIDE RECORDS SUMMARY | 2024-03-17 14:15 | External Medical Summary ---
Author Name Unknown Address Unknown Organization [id number]:LABORATORY [facility] - [address] [place] [address] Laboratory Report Ordering Provider Test Date Status WALTERKATIERICHA 02/27/2024 17:45:32 Final CRRT Labs: Check at initiati on of CRRT, One hour after CRRT and Every 6 hours
Labs to be Drawn Peripherally Observation Date Value Abnormality Reference (Units ) Status Magnesium 02/27/2024 17:45:32 2.2 1.5-2.6 (m g/dL) Final Performing Location LABORATORY [facility] - [address] [place] [address]
--- OUTSIDE RECORDS SUMMARY | 2024-03-17 14:15 | External Medical Summary ---
Author Name Unknown Address Unknown Organization [id number]:[facility] - [address] [place] [address] Laboratory Report Ordering Provider Test Date Status CHRISTIANO BRADY 02/28/2024 03:55:30 Final Observation Date Value Abnormality Reference (Units ) Status Magnesium 02/28/2024 03:55:30 2.3 1.5-2.6 (m g/dL) Final Performing Location [facility] - [address] [place] [id number]
--- OUTSIDE RECORDS SUMMARY | 2024-03-17 14:15 | External Medical Summary ---
Author Name Unknown Address Unknown Organization K01:[facility]ATORY [facility] - [address] [place] [address] Laboratory Report Ordering Provider Test Date Status ZACHARY DACOSTA 02/29/2024 05:27:23 Final Observation Date Value Abnormality Reference (Units ) Status Neutrophil cytoplasmic Ab [Presence] in Serum by Immunofluorescence 02/29/2024 05:27:23 Negative Negative Final Neutrophil cytoplasmic Ab [Presence] in Serum by Immunofluorescence 02/29/2024 05:27:23 Negative Negative Final Negative for ANCA. Performing Location LAB[facility] - [address] [place] [address]
--- OUTSIDE RECORDS SUMMARY | 2024-03-17 14:15 | External Medical Summary ---
Author Name Unknown Address Unknown Organization K01:LABORATORY [facility] [place] - [address] [facility] Laboratory Report Ordering Provider Test Date Status GLENISLITOTERRANCE 02/28/2024 03:51:00 Final Observation Date Value Abnormality Reference (Units ) Status Bacteria identified in Specimen by Culture 02/28/2024 03:51:00 No growth Final Test: Culture, Blood (Site 2 )
Specimen Source: Blood, Venous
Specimen Type: Blood
Specimen Date: 02/28/2024350
Result Date: 03/04/2024 050
Result Status: Final result
Resulting Lab: LABORATORY [facility] [place]
[address]
[place] [address]

CULTURE

No growth

null Performing Location LABORATORY [facility] [place] - [address] [place] [address]
--- OUTSIDE RECORDS SUMMARY | 2024-03-17 14:15 | External Medical Summary ---
Author Name Unknown Address Unknown Organization K01:LABORATORY [facility] [place] - [address] [place] [address] Laboratory Report Ordering Provider Test Date Status KATIE WATSONRICHA 02/28/2024 23:48:09 Final CRRT Labs: check once daily if not done already
Labs to be Drawn Peripherally

Warfarin Therapy
INR: 2.0-3.0 conventional anticoagulation
INR: 2.5-3.5 high intensity anticoagulation Observation Date Value Abnormality Reference (Units ) Status PT 02/28/2024 23:48:09 14.9 11.6-15.2 (seconds) Final INR 02/28/2024 23:48:09 1.2 0.8-1.2 Final Performing Location LABORATORY [facility] [place] - [address] [place] [address]
--- OUTSIDE RECORDS SUMMARY | 2024-03-17 14:15 | External Medical Summary ---
Author Name Unknown Address Unknown Organization [id number]:LABORATORY [facility] [place] - [address] [facility] [address] Laboratory Report Ordering Provider Test Date Status WALTERKATIEOYO 02/28/2024 23:48:09 Final CRRT Labs: check once daily if not done already
Labs to be Drawn Peripherally Observation Date Value Abnormality Reference (Units ) Status SYNC LEUKOCYTES IN BLOOD BY AUTOMATED COUNT 02/28/2024 23:48:09 9.51 4.00-10.80 (K/uL) Final Segs 02/28/2024 23:48:09 67.8 40.0-75.0 (%) Final Lymphs % 02/28/2024 23:48:09 14.5 Below low normal 18.0-42.0 (%) Final Monos 02/28/2024 23:48:09 9.5 1.0-11.0 (%) Final Eosinophils 02/28/2024 23:48:09 5.2 0.0-6.0 (%) Final Basos 02/28/2024 23:48:09 0.4 0.0-2.0 (%) Final Immature Granulocyte, Percent 02/28/2024 23:48:09 2.6 Above high normal 0.0-2.0 (%) Final Absolute Segs 02/28/2024 23:48:09 6.45 1.80-7.70 (K/uL) Final Lymphs, absolute 02/28/2024 23:48:09 1.38 1.00-4.80 (K/ul) Final Monos, Abs 02/28/2024 23:48:09 0.90 0.00-1.10 (K/uL) Final Eos, Abs 02/28/2024 23:48:09 0.49 0.00-0.70 (K/uL) Final Basos, Abs 02/28/2024 23:48:09 0.04 0.00-0.20 (K/uL) Final Immature Granulocytes, Number 02/28/2024 23:48:09 0.25 Above high normal 0.00-0.20 (K/uL) Final Performing Location LABORATORY [facility] - [facility] [address] [facility] [address]
--- OUTSIDE RECORDS SUMMARY | 2024-03-17 14:15 | External Medical Summary ---
Author Name Unknown Address Unknown Organization [id number]:LABORATORY [facility] [address] [place] [address] Laboratory Report Ordering Provider Test Date Status WALTERKATIEOYO 02/26/2024 23:40:30 Final CRRT Labs: Check at initiati on of CRRT, One hour after CRRT and Every 6 hours
Labs to be Drawn Peripherally Observation Date Value Abnormality Reference (Units ) Status BUN 02/26/2024 23:40:30 46 Above high normal 6-20 (mg/dL) Final Creatinine 02/26/2024 23:40:30 13.1 Above high normal 0.6-1.2 (mg/dL) Final Glomerular filtration rate/1.73 sq M.predicted [Volume Rate/Area] in Serum, Plasma or Blood by Creatinine-based formula (CKD-EPI) 02/26/2024 23:40:30 4 Below low normal >=60 (mL/min) Final eGFR is calculated based on the CKD-EPI 2020 equation Sodium 02/26/2024 23:40:30 139 135-146 (m mol/L) Final Potassium 02/26/2024 23:40:30 3.7 3.5-5.1 (m mol/L) Final Cl 02/26/2024 23:40:30 98 98-107 (mm ol/L) Final CO2 02/26/2024 23:40:30 22 22-32 (mmo l/L) Final Anion gap 02/26/2024 23:40:30 19 Above high normal 7- 15 (mmol/L) Final Glucose 02/26/2024 23:40:30 107 70-120 (mg /dL) Final Calcium 02/26/2024 23:40:30 8.8 8.4-10.2 ( mg/dL) Final Performing Location LABORATORY [facility] - [address] [place] [address]
--- OUTSIDE RECORDS SUMMARY | 2024-03-17 14:15 | External Medical Summary ---
Author Name Unknown Address Unknown Organization K01:LABORATORY [facility] [place] - [address] [facility] [address] Laboratory Report Ordering Provider Test Date Status DENNIS GALVIN 02/29/2024 05:26:58 Final Observation Date Value Abnormality Reference (Units ) Status Body temperature 02/29/2024 05:26:58 37.0 (C) Final pH of Arterial blood 02/29/2024 05:26:58 7.396 7.350-7.450 (units) Final Carbon dioxide [Partial pressure] in Arterial blood 02/29/2024 05:26:58 39.3 35.0-45.0 (mmHg) Final Oxygen [Partial pressure] in Arterial blood 02/29/2024 05:26:58 214.0 Above high normal 75.0-100.0 (mmHg) Final Base excess, Arterial 02/29/2024 05:26:58 -0.6 -2.0-2.0 (mmol/L) Final Hemoglobin [Mass/volume] in Blood by Oximetry 02/29/2024 05:26:58 8.1 Below low normal 14.0-16.8 (g/dL) Final Oxyhemoglobin, Arterial (FO2HB) 02/29/2024 05:26:58 96.8 94.0-99.0 (% total Hgb) Final Carboxyhemoglobin 02/29/2024 05:26:58 2.0 Above high normal <=1.5 (% total Hgb) Final Smokers: 0-9.0 % Methemoglobin 02/29/2024 05:26:58 1.0 <= 1.5 (% total Hgb) Final Deoxyhemoglobin/Hemoglo bin.total in Arterial blood 02/29/2024 05:26:58 0.2 0.0-5.0 (% total Hgb) Final Oxygen content in Arterial blood 02/29/2024 05:26:58 11.5 Below low normal 15.0-24.0 (%vol) Final Oxygen/Total gas setting [Volume Fraction] Ventilator 02/29/2024 05:26:58 40 (%) Final mist mask O2 FLOW, ARTERIAL - [facility] 02/29/2024 05:26:58 10 (L/min) Final liters Bicarbonate, Venous, POC (i-STAT) 02/29/2024 05:26:58 23.6 23.0-31.0 (mmol/L) Final Performing Location LABORATORY [facility] [place] - [address] [facility] [address]
--- OUTSIDE RECORDS SUMMARY | 2024-03-17 14:15 | External Medical Summary ---
Author Name Unknown Address Unknown Organization K01:LABORATORY [facility] [place] - [facility] [address] [facility] [address] Laboratory Report Ordering Provider Test Date Status CAROL WATSON 02/28/2024 16:42:18 Final CRRT Labs: Check at initiati on of CRRT, One hour after CRRT and Every 6 hours
Labs to be Drawn Peripherally
Send in a separate tube. Observation Date Value Abnormality Reference (Units ) Status Calcium.ionized [Moles/volume] in Blood by Ion-selective membrane electrode (ISE) 02/28/2024 16:42:18 1.14 1.13-1.32 (mmol/L) Final Performing Location LABORATORY [facility] - [address] [facility] [address]
--- OUTSIDE RECORDS SUMMARY | 2024-03-17 14:15 | External Medical Summary ---
Author Name Unknown Address Unknown Organization K01:LABORATORY [facility] [place] - [facility] [address] [place] [address] Laboratory Report Ordering Provider Test Date Status CAROL WATSON 02/28/2024 23:48:09 Final CRRT Labs: check once daily if not done already
Labs to be Drawn Peripherally

Anticoagulation may affect testing. Refer to [facility] Test Catalog for a list of effects. Observation Date Value Abnormality Reference (Units ) Status aPTT panel - Platelet poor plasma 02/28/2024 23:48:09 49 Above high normal 21-38 (seconds) Final Performing Location LABORATORY [facility] [place] - [facility] [address] [place] [address]
--- OUTSIDE RECORDS SUMMARY | 2024-03-17 14:15 | External Medical Summary ---
Author Name Unknown Address Unknown Organization K01:LABORATORY [facility] [place] - [address] [facility] [address] Laboratory Report Ordering Provider Test Date Status DENNIS GALVIN 02/28/2024 23:48:29 Final Observation Date Value Abnormality Reference (Units ) Status Body temperature 02/28/2024 23:48:29 37.0 (C) Final pH of Arterial blood 02/28/2024 23:48:29 7.363 7.350-7.450 (units) Final Carbon dioxide [Partial pressure] in Arterial blood 02/28/2024 23:48:29 46.4 Above high normal 35.0-45.0 (mmHg) Final Oxygen [Partial pressure] in Arterial blood 02/28/2024 23:48:29 120.0 Above high normal 75.0-100.0 (mmHg) Final Base excess, Arterial 02/28/2024 23:48:29 0.7 -2.0-2.0 (mmol/L) Final Hemoglobin [Mass/volume] in Blood by Oximetry 02/28/2024 23:48:29 8.4 Below low normal 14.0-16.8 (g/dL) Final Oxyhemoglobin, Arterial (FO2HB) 02/28/2024 23:48:29 96.7 94.0-99.0 (% total Hgb) Final Carboxyhemoglobin 02/28/2024 23:48:29 2.0 Above high normal <=1.5 (% total Hgb) Final Smokers: 0-9.0 % Methemoglobin 02/28/2024 23:48:29 0.7 <= 1.5 (% total Hgb) Final Deoxyhemoglobin/Hemoglo bin.total in Arterial blood 02/28/2024 23:48:29 0.6 0.0-5.0 (% total Hgb) Final Oxygen content in Arterial blood 02/28/2024 23:48:29 11.6 Below low normal 15.0-24.0 (%vol) Final Oxygen/Total gas setting [Volume Fraction] Ventilator 02/28/2024 23:48:29 40 (%) Final mist mask O2 FLOW, ARTERIAL - [facility] 02/28/2024 23:48:29 10 (L/min) Final liters/min Bicarbonate, Venous, POC (i-STAT) 02/28/2024 23:48:29 25.7 23.0-31.0 (mmol/L) Final Performing Location LABORATORY [facility] - [address] [facility] [address]
--- OUTSIDE RECORDS SUMMARY | 2024-03-17 14:15 | External Medical Summary ---
Author Name Unknown Address Unknown Organization K01:LABORATORY [facility] [place] - [address] [facility] [address] Laboratory Report Ordering Provider Test Date Status DENNIS GALVIN 02/27/2024 05:35:55 Final Observation Date Value Abnormality Reference (Units ) Status Body temperature 02/27/2024 05:35:55 37.0 (C) Final pH of Arterial blood 02/27/2024 05:35:55 7.415 7.350-7.450 (units) Final Carbon dioxide [Partial pressure] in Arterial blood 02/27/2024 05:35:55 38.5 35.0-45.0 (mmHg) Final Oxygen [Partial pressure] in Arterial blood 02/27/2024 05:35:55 180.0 Above high normal 75.0-100.0 (mmHg) Final Base excess, Arterial 02/27/2024 05:35:55 0.3 -2.0-2.0 (mmol/L) Final Hemoglobin [Mass/volume] in Blood by Oximetry 02/27/2024 05:35:55 9.1 Below low normal 14.0-16.8 (g/dL) Final Oxyhemoglobin, Arterial (FO2HB) 02/27/2024 05:35:55 96.3 94.0-99.0 (% total Hgb) Final Carboxyhemoglobin 02/27/2024 05:35:55 1.0 <=1.5 (% total Hgb) Final Smokers: 0-9.0 % Methemoglobin 02/27/2024 05:35:55 0.8 <= 1.5 (% total Hgb) Final Deoxyhemoglobin/Hemoglo bin.total in Arterial blood 02/27/2024 05:35:55 1.9 0.0-5.0 (% total Hgb) Final Oxygen content in Arterial blood 02/27/2024 05:35:55 12.7 Below low normal 15.0-24.0 (%vol) Final Oxygen/Total gas setting [Volume Fraction] Ventilator 02/27/2024 05:35:55 40 (%) Final mist mask O2 FLOW, ARTERIAL - [facility] 02/27/2024 05:35:55 10 (L/min) Final liters Bicarbonate, Venous, POC (i-STAT) 02/27/2024 05:35:55 24.2 23.0-31.0 (mmol/L) Final Performing Location LABORATORY [facility] [place] - [address] [facility] [address]
--- OUTSIDE RECORDS SUMMARY | 2024-03-17 14:15 | External Medical Summary ---
Author Name Unknown Address Unknown Organization K01:LABORATORY [facility] [place] - [facility] [address] [place] [address] Laboratory Report Ordering Provider Test Date Status CAROL WATSON 02/27/2024 05:35:28 Final CRRT Labs: check once daily if not done already
Labs to be Drawn Peripherally

Warfarin Therapy
INR: 2.0-3.0 conventional anticoagulation
INR: 2.5-3.5 high intensity anticoagulation Observation Date Value Abnormality Reference (Units ) Status PT 02/27/2024 05:35:28 15.9 Above high normal 11 .6-15.2 (seconds) Final INR 02/27/2024 05:35:28 1.3 Above high normal 0. 8-1.2 Final Performing Location LABORATORY [facility] [place] - [address] [place] [address]
--- OUTSIDE RECORDS SUMMARY | 2024-03-17 14:15 | External Medical Summary ---
Author Name Unknown Address Unknown Organization K01:LABORATORY [facility] [place] - [address] [place] [address] Laboratory Report Ordering Provider Test Date Status KATIE WATSONOYO 02/27/2024 05:35:28 Final CRRT Labs: Check at initiati on of CRRT, One hour after CRRT and Every 6 hours
Labs to be Drawn Peripherally Observation Date Value Abnormality Reference (Units ) Status BUN 02/27/2024 05:35:28 35 Above high normal 6-20 (mg/dL) Final Creatinine 02/27/2024 05:35:28 10.7 Above high normal 0.6-1.2 (mg/dL) Final Glomerular filtration rate/1.73 sq M.predicted [Volume Rate/Area] in Serum, Plasma or Blood by Creatinine-based formula (CKD-EPI) 02/27/2024 05:35:28 6 Below low normal >=60 (mL/min) Final eGFR is calculated based on the CKD-EPI 2020 equation Sodium 02/27/2024 05:35:28 139 135-146 (m mol/L) Final Potassium 02/27/2024 05:35:28 3.6 3.5-5.1 (m mol/L) Final Cl 02/27/2024 05:35:28 99 98-107 (mm ol/L) Final CO2 02/27/2024 05:35:28 24 22-32 (mmo l/L) Final Anion gap 02/27/2024 05:35:28 16 Above high normal 7- 15 (mmol/L) Final Glucose 02/27/2024 05:35:28 111 70-120 (mg /dL) Final Calcium 02/27/2024 05:35:28 9.1 8.4-10.2 ( mg/dL) Final Performing Location LABORATORY [facility] [place] - [address] [place] [address]
--- OUTSIDE RECORDS SUMMARY | 2024-03-17 14:15 | External Medical Summary ---
Author Name Unknown Address Unknown Organization K01:[facility]ORY [facility] - [address] [place] [address] Laboratory Report Ordering Provider Test Date Status GLENISLITOTERRANCE 02/28/2024 03:46:00 Final Observation Date Value Abnormality Reference (Units ) Status Bacteria identified in Specimen by Culture 02/28/2024 03:46:00 No growth Final Test: Culture, Blood
Spe cimen Source: Blood, Venous
Specimen Type: Blood
Specimen Date: 02/28/2024 034
Result Date: 03/04/2024 0501
Result Status: Final result
Resulting Lab: [facility]
[address]
[place] [address]

CULTURE

No growth

null Performing Location LAB[facility]ATORY [facility] - [address] [place] [address]
--- OUTSIDE RECORDS SUMMARY | 2024-03-17 14:16 | External Medical Summary ---
Author Name Unknown Address Unknown Organization K01:LABORATORY [facility] [place] - [address] [place] [address] Laboratory Report Ordering Provider Test Date Status LALA BURCH 02/26/2024 06:05:00 Final Observation Date Value Abnormality Reference (Units ) Status Troponin T 02/26/2024 06:05:00 129 Above upper panic limits <=22 (ng/L) Final Performing Location [facility] - [address] [place] [address]
--- OUTSIDE RECORDS SUMMARY | 2024-03-17 14:16 | External Medical Summary ---
Author Name Unknown Address Unknown Organization K01:LABORATORY [facility] [place] - [address] [place] [address] Laboratory Report Ordering Provider Test Date Status WALTERKATIERICHA 02/26/2024 18:42:52 Final CRRT Labs: Check at initiati on of CRRT, One hour after CRRT and Every 6 hours
Labs to be Drawn Peripherally Observation Date Value Abnormality Reference (Units ) Status Magnesium 02/26/2024 18:42:52 2.2 1.5-2.6 (m g/dL) Final Performing Location LABORATORY [facility] [place] - [address] [place] [address]
--- OUTSIDE RECORDS SUMMARY | 2024-03-17 14:16 | External Medical Summary ---
Author Name Unknown Address Unknown Organization K01:LABORATORY [facility] [place] - [address] [facility] [place] [address] Laboratory Report Ordering Provider Test Date Status CAROL WATSON 02/26/2024 23:40:30 Final CRRT Labs: Check at initiati on of CRRT, One hour after CRRT and Every 6 hours
Labs to be Drawn Peripherally
Send in a separate tube. Observation Date Value Abnormality Reference (Units ) Status Calcium.ionized [Moles/volume] in Blood by Ion-selective membrane electrode (ISE) 02/26/2024 23:40:30 1.08 Below low normal 1.13-1.32 (mmol/L) Final Performing Location LABORATORY [facility] [place] - [address] [place] [address]
--- OUTSIDE RECORDS SUMMARY | 2024-03-17 14:16 | External Medical Summary ---
Author Name Unknown Address Unknown Organization : Laboratory Report Ordering Provider Test Date Status RAJEEV CARLIN 02/26/2024 05:14:01 Final Observation Date Value Abnormality Reference (Units ) Status Glucose Point of Care 02/26/2024 05:14:01 114 70-120 (mg/dL) Final Performing Location
--- OUTSIDE RECORDS SUMMARY | 2024-03-17 14:16 | External Medical Summary ---
Author Name Unknown Address Unknown Organization K01:LABORATORY [facility] [place] - [address] [place] [address] Laboratory Report Ordering Provider Test Date Status WALTERKATIEOYO 02/26/2024 15:07:46 Final CRRT Labs: check once daily if not done already
Labs to be Drawn Peripherally Observation Date Value Abnormality Reference (Units ) Status WBC, Total 02/26/2024 15:07:46 15.09 Above high normal 4.00-10.80 (K/uL) Final RBC 02/26/2024 15:07:46 3.18 4.50-5.25 (M/uL) Final Hemoglobin 02/26/2024 15:07:46 9.1 Below low normal 14.0-16.8 (g/dL) Final HCT 02/26/2024 15:07:46 28.8 Below low normal 40.0-48.4 (%) Final MCV 02/26/2024 15:07:46 90.6 82.0-99.5 (fL) Final MCH 02/26/2024 15:07:46 28.6 27.0-34.0 (pg) Final MCHC 02/26/2024 15:07:46 31.6 32.0-36.0 (g/dL) Final RDW 02/26/2024 15:07:46 15.5 11.5-15.5 (%) Final Platelets 02/26/2024 15:07:46 231 140-400 (K/uL) Final MPV 02/26/2024 15:07:46 9.0 6.6-11.1 (fL) Final Nucleated erythrocytes/100 leukocytes [Ratio] in Blood by Automated count 02/26/2024 15:07:46 0 <=0 (/100 WBCs) Final Performing Location LABORATORY [facility] [place] - [address] [place] [address]
--- OUTSIDE RECORDS SUMMARY | 2024-03-17 14:16 | External Medical Summary ---
Author Name Unknown Address Unknown Organization K01[facility] [address] [facility] [place] [address] Laboratory Report Ordering Provider Test Date Status BENTON MARTINEZ 02/25/2024 05:50:00 Final Assay measures the level of platelet P2Y12 receptor blockade from clopidogrel and it should not be used to detect other platelet functional disorders. This test is not to be used for therapeutic monitoring.

>=182 P2Y12 inhibitory drug (clopidogrel) NOT detected

% clopidogrel inhibition = (Baseline PRU - Post-treatment PRU) / Baseline PRU x100

<10% inhibition indicated the patient is resistant to therapy and recommend different antiplatelet medication

Interfering substances/Test limitations: Do not test patients if on the following medications until platelet function has recovered (timeframe), as they may result in low ARU values; dipyridamole - 12 hours, cilostazol - 12 hours, Aggrenox (aspirin/dipyridamole) - 10 days. Samples may also be affected by low hematocrit (<29%), high hematocrit (>56%), or low platelet counts (<92,000/cmm). Patients on ticlopidine, prasugrel, and ticagrelor or with inherited platelet disorders have not been studied using this assay and the ability of the assay to detect these drugs or clopidogrel usage in these patients is unknown. Observation Date Value Abnormality Reference (Units ) Status Platelet aggregation ADP induced [Units/volume] in Blood 02/25/2024 05:50:00 341 Above high normal 182-335 (PRU) Final Performing Location [facility] [place] [address] [place] [address] Ave[address] [facility] [address]
--- OUTSIDE RECORDS SUMMARY | 2024-03-17 14:16 | External Medical Summary ---
Author Name Unknown Address Unknown Organization K01:LABORATORY [facility] [place] - [address] [facility] [address] Laboratory Report Ordering Provider Test Date Status LALA BURCH 02/26/2024 11:44:00 Final Observation Date Value Abnormality Reference (Units ) Status Troponin T 02/26/2024 11:44:00 135 Above upper panic limits <=22 (ng/L) Final Performing Location [facility] - [address] [place] [address]
--- OUTSIDE RECORDS SUMMARY | 2024-03-17 14:16 | External Medical Summary ---
Author Name Unknown Address Unknown Organization K01:LABORATORY [facility] [place] - [address] [facility] [address] [facility] [address] Laboratory Report Ordering Provider Test Date Status CHRISTIANO BRADY 02/26/2024 06:05:00 Final Observation Date Value Abnormality Reference (Units ) Status WBC, Total 02/26/2024 06:05:00 11.99 Above high normal 4.00-10.80 (K/uL) Final RBC 02/26/2024 06:05:00 2.96 4.50-5.25 (M/uL) Final Hemoglobin 02/26/2024 06:05:00 8.6 Below low normal 14.0-16.8 (g/dL) Final HCT 02/26/2024 06:05:00 27.3 Below low normal 40.0-48.4 (%) Final MCV 02/26/2024 06:05:00 92.2 82.0-99.5 (fL) Final MCH 02/26/2024 06:05:00 29.1 27.0-34.0 (pg) Final MCHC 02/26/2024 06:05:00 31.5 32.0-36.0 (g/dL) Final RDW 02/26/2024 06:05:00 15.9 11.5-15.5 (%) Final Platelets 02/26/2024 06:05:00 200 140-400 (K/uL) Final MPV 02/26/2024 06:05:00 8.8 6.6-11.1 (fL) Final Nucleated erythrocytes/100 leukocytes [Ratio] in Blood by Automated count 02/26/2024 06:05:00 0 <=0 (/100 WBCs) Final Performing Location LABORATORY [facility] [place] - [address] [place] [address]
--- OUTSIDE RECORDS SUMMARY | 2024-03-17 14:16 | External Medical Summary ---
Author Name Unknown Address Unknown Organization K01:LABORATORY [facility] [place] - [address] [place] [address] Laboratory Report Ordering Provider Test Date Status WALTERKATIERICHA 02/26/2024 15:07:46 Final CRRT Labs: Check at initiati on of CRRT, One hour after CRRT and Every 6 hours
Labs to be Drawn Peripherally Observation Date Value Abnormality Reference (Units ) Status Magnesium 02/26/2024 15:07:46 2.3 1.5-2.6 (m g/dL) Final Performing Location LABORATORY [facility] [place] - [address] [place] [address]
--- OUTSIDE RECORDS SUMMARY | 2024-03-17 14:16 | External Medical Summary ---
Author Name Unknown Address Unknown Organization K01:LABORATORY [facility] [place] - [address] [place] [address] Laboratory Report Ordering Provider Test Date Status WALTERKATIERICHA 02/26/2024 23:40:30 Final CRRT Labs: Check at initiati on of CRRT, One hour after CRRT and Every 6 hours
Labs to be Drawn Peripherally Observation Date Value Abnormality Reference (Units ) Status Magnesium 02/26/2024 23:40:30 2.2 1.5-2.6 (m g/dL) Final Performing Location LABORATORY [facility] [place] - [address] [place] [address]
--- OUTSIDE RECORDS SUMMARY | 2024-03-17 14:16 | External Medical Summary ---
Author Name Unknown Address Unknown Organization K01:LABORATORY [facility] [place] [facility] [address] [place] [address] Laboratory Report Ordering Provider Test Date Status CAROL WATSON 02/26/2024 15:07:46 Final CRRT Labs: check once daily if not done already
Labs to be Drawn Peripherally

Anticoagulation may affect testing. Refer to [facility] Test Catalog for a list of effects. Observation Date Value Abnormality Reference (Units ) Status aPTT panel - Platelet poor plasma 02/26/2024 15:07:46 44 Above high normal 21-38 (seconds) Final Performing Location LABORATORY [facility] [place] - [facility] [address] [place] [address]
--- OUTSIDE RECORDS SUMMARY | 2024-03-17 14:16 | External Medical Summary ---
Author Name Unknown Address Unknown Organization K01:[place] [facility] [place] [address] [place] [address] Laboratory Report Ordering Provider Test Date Status CHRISTIANO BRADY 02/26/2024 06:05:00 Final Observation Date Value Abnormality Reference (Units ) Status BUN 02/26/2024 06:05:00 62 Above high normal 6-20 (mg/dL) Final Creatinine 02/26/2024 06:05:00 18.9 Above high normal 0.6-1.2 (mg/dL) Final Glomerular filtration rate/1.73 sq M.predicted [Volume Rate/Area] in Serum, Plasma or Blood by Creatinine-based formula (CKD-EPI) 02/26/2024 06:05:00 3 Below low normal >=60 (mL/min) Final eGFR is calculated based on the CKD-EPI 2020 equation Sodium 02/26/2024 06:05:00 140 135-146 (m mol/L) Final Potassium 02/26/2024 06:05:00 3.7 3.5-5.1 (m mol/L) Final Cl 02/26/2024 06:05:00 92 Below low normal 98- 107 (mmol/L) Final CO2 02/26/2024 06:05:00 21 Below low normal 22- 32 (mmol/L) Final Anion gap 02/26/2024 06:05:00 27 Above high normal 7- 15 (mmol/L) Final Glucose 02/26/2024 06:05:00 103 70-120 (mg /dL) Final Calcium 02/26/2024 06:05:00 8.4 8.4-10.2 ( mg/dL) Final Performing Location [facility] [facility] [place] [address] [place] [address]
--- OUTSIDE RECORDS SUMMARY | 2024-03-17 14:16 | External Medical Summary ---
Author Name Unknown Address Unknown Organization K01:LABORATORY [facility] [place] - [address] [facility] [address] Laboratory Report Ordering Provider Test Date Status WALTERKATIEOYO 02/26/2024 23:40:11 Final CRRT Labs: Check at initiati on of CRRT, One hour after CRRT and Every 6 hours
Labs to be Drawn Peripherally
Send in a separate tube. Observation Date Value Abnormality Reference (Units ) Status Body temperature 02/26/2024 23:40:11 37.0 (C) Final pH of Arterial blood 02/26/2024 23:40:11 7.408 7.350-7.450 (units) Final Carbon dioxide [Partial pressure] in Arterial blood 02/26/2024 23:40:11 36.3 35.0-45.0 (mmHg) Final Oxygen [Partial pressure] in Arterial blood 02/26/2024 23:40:11 187.0 Above high normal 75.0-100.0 (mmHg) Final Base excess, Arterial 02/26/2024 23:40:11 -1.4 -2.0-2.0 (mmol/L) Final Hemoglobin [Mass/volume] in Blood by Oximetry 02/26/2024 23:40:11 9.3 Below low normal 14.0-16.8 (g/dL) Final Oxyhemoglobin, Arterial (FO2HB) 02/26/2024 23:40:11 97.3 94.0-99.0 (% total Hgb) Final Carboxyhemoglobin 02/26/2024 23:40:11 1.9 Above high normal <=1.5 (% total Hgb) Final Smokers: 0-9.0 % Methemoglobin 02/26/2024 23:40:11 0.7 <= 1.5 (% total Hgb) Final Deoxyhemoglobin/Hemoglo bin.total in Arterial blood 02/26/2024 23:40:11 0.1 0.0-5.0 (% total Hgb) Final Oxygen content in Arterial blood 02/26/2024 23:40:11 13.1 Below low normal 15.0-24.0 (%vol) Final Oxygen/Total gas setting [Volume Fraction] Ventilator 02/26/2024 23:40:11 40 (%) Final mist mask O2 FLOW, [facility] - [facility] 02/26/2024 23:40:11 10 (L/min) Final liters Bicarbonate, Venous, POC (i-STAT) 02/26/2024 23:40:11 22.4 Below low normal 23.0-31.0 (mmol/L) Final Performing Location LABORATORY [facility] [place] - [facility] [place] [address] [facility] [address]
--- OUTSIDE RECORDS SUMMARY | 2024-03-17 14:16 | External Medical Summary ---
Author Name Unknown Address Unknown Organization K01:[place]ORY [facility] [place] [address] [place] [address] Laboratory Report Ordering Provider Test Date Status WALTERCAROL 02/26/2024 18:42:52 Final CRRT Labs: Check at initiati on of CRRT, One hour after CRRT and Every 6 hours
Labs to be Drawn Peripherally Observation Date Value Abnormality Reference (Units ) Status Phosphate 02/26/2024 18:42:52 11.2 Above high normal 2. 5-4.8 (mg/dL) Final Performing Location [facility] [facility] [place] [address] [place] [address]
--- OUTSIDE RECORDS SUMMARY | 2024-03-17 14:16 | External Medical Summary ---
Author Name Unknown Address Unknown Organization K01:LABORATORY [facility] [place] - [address] [facility] [address] Laboratory Report Ordering Provider Test Date Status WALTEROLGUADALUPEOYO 02/26/2024 15:07:46 Final CRRT Labs: check once daily if not done already
Labs to be Drawn Peripherally Observation Date Value Abnormality Reference (Units ) Status SYNC LEUKOCYTES IN BLOOD BY AUTOMATED COUNT 02/26/2024 15:07:46 15.09 Above high normal 4.00-10.80 (K/uL) Final Segs 02/26/2024 15:07:46 69.3 40.0-75.0 (%) Final Lymphs % 02/26/2024 15:07:46 14.3 Below low normal 18.0-42.0 (%) Final Monos 02/26/2024 15:07:46 11.1 Above high normal 1.0-11.0 (%) Final Eosinophils 02/26/2024 15:07:46 4.0 0.0-6.0 (%) Final Basos 02/26/2024 15:07:46 0.4 0.0-2.0 (%) Final Immature Granulocyte, Percent 02/26/2024 15:07:46 0.9 0.0-2.0 (%) Final Absolute Segs 02/26/2024 15:07:46 10.46 Above high normal 1.80-7.70 (K/uL) Final Lymphs, absolute 02/26/2024 15:07:46 2.16 1.00-4.80 (K/ul) Final Monos, Abs 02/26/2024 15:07:46 1.68 Above high normal 0.00-1.10 (K/uL) Final Eos, Abs 02/26/2024 15:07:46 0.60 0.00-0.70 (K/uL) Final Basos, Abs 02/26/2024 15:07:46 0.06 0.00-0.20 (K/uL) Final Immature Granulocytes, Number 02/26/2024 15:07:46 0.13 0.00-0.20 (K/uL) Final Performing Location LABORATORY [facility] [place] - [facility] [address] [facility] [address]
--- OUTSIDE RECORDS SUMMARY | 2024-03-17 14:16 | External Medical Summary ---
Author Name Unknown Address Unknown Organization K01:LABORATORY [facility] - [address] [place] [address] Laboratory Report Ordering Provider Test Date Status CHRISTIANO BRADY 02/25/2024 05:50:00 Final Observation Date Value Abnormality Reference (Units ) Status Magnesium 02/25/2024 05:50:00 2.2 1.5-2.6 (m g/dL) Final Performing Location LABORATORY [facility] - [address] [place] [address]
--- OUTSIDE RECORDS SUMMARY | 2024-03-17 14:16 | External Medical Summary ---
Author Name Unknown Address Unknown Organization K01:LABORATORY [facility] [place] - [address] [facility] [place] [address] Laboratory Report Ordering Provider Test Date Status CAROL WATSON 02/26/2024 15:07:46 Final CRRT Labs: Check at initiati on of CRRT, One hour after CRRT and Every 6 hours
Labs to be Drawn Peripherally
Send in a separate tube. Observation Date Value Abnormality Reference (Units ) Status Calcium.ionized [Moles/volume] in Blood by Ion-selective membrane electrode (ISE) 02/26/2024 15:07:46 0.94 Below low normal 1.13-1.32 (mmol/L) Final Performing Location LABORATORY [facility] [place] - [address] [place] [address]
--- OUTSIDE RECORDS SUMMARY | 2024-03-17 14:16 | External Medical Summary ---
Author Name Unknown Address Unknown Organization K01:LABORATORY [facility] [place] - [address] [place] [address] Laboratory Report Ordering Provider Test Date Status CAROL WATSON 02/26/2024 15:07:46 Final CRRT Labs: Check at initiati on of CRRT, One hour after CRRT and Every 6 hours
Labs to be Drawn Peripherally Observation Date Value Abnormality Reference (Units ) Status BUN 02/26/2024 15:07:46 59 Above high normal 6-20 (mg/dL) Final Creatinine 02/26/2024 15:07:46 19.2 Above high normal 0.6-1.2 (mg/dL) Final Glomerular filtration rate/1.73 sq M.predicted [Volume Rate/Area] in Serum, Plasma or Blood by Creatinine-based formula (CKD-EPI) 02/26/2024 15:07:46 3 Below low normal >=60 (mL/min) Final eGFR is calculated based on the CKD-EPI 2020 equation Sodium 02/26/2024 15:07:46 137 135-146 (m mol/L) Final Potassium 02/26/2024 15:07:46 3.5 3.5-5.1 (m mol/L) Final Cl 02/26/2024 15:07:46 91 Below low normal 98- 107 (mmol/L) Final CO2 02/26/2024 15:07:46 21 Below low normal 22- 32 (mmol/L) Final Anion gap 02/26/2024 15:07:46 25 Above high normal 7- 15 (mmol/L) Final Glucose 02/26/2024 15:07:46 124 Above high normal 70 -120 (mg/dL) Final Calcium 02/26/2024 15:07:46 8.2 Below low normal 8.4 -10.2 (mg/dL) Final Performing Location LABORATORY [facility] - [address] [place] [address]
--- OUTSIDE RECORDS SUMMARY | 2024-03-17 14:16 | External Medical Summary ---
Author Name Unknown Address Unknown Organization K01:LABORATORY [facility] - [address] [place] [address] Laboratory Report Ordering Provider Test Date Status LALA BURCH 02/25/2024 14:09:00 Final Observation Date Value Abnormality Reference (Units ) Status Troponin T 02/25/2024 14:09:00 102 Above upper panic limits <=22 (ng/L) Final Performing Location LABORATORY [facility] - [address] [place] [address]
--- OUTSIDE RECORDS SUMMARY | 2024-03-17 14:16 | External Medical Summary ---
Author Name Unknown Address Unknown Organization K01:LABORATORY [facility] [place] - [address] [facility] [address] Laboratory Report Ordering Provider Test Date Status CAROL WATSON 02/26/2024 18:42:52 Final CRRT Labs: Check at initiati on of CRRT, One hour after CRRT and Every 6 hours
Labs to be Drawn Peripherally
Send in a separate tube. Observation Date Value Abnormality Reference (Units ) Status Calcium.ionized [Moles/volume] in Blood by Ion-selective membrane electrode (ISE) 02/26/2024 18:42:52 0.99 Below low normal 1.13-1.32 (mmol/L) Final Performing Location LABORATORY [facility] [place] - [address] [place] [address]
--- OUTSIDE RECORDS SUMMARY | 2024-03-17 14:16 | External Medical Summary ---
Author Name Unknown Address Unknown Organization K01:LABORATORY [facility] [place] - [address] [place] [address] Laboratory Report Ordering Provider Test Date Status KIERSTENLALA 02/25/2024 14:17:00 Final Observation Date Value Abnormality Reference (Units ) Status Bacteria identified in Specimen by Culture 02/25/2024 14:17:00 No growth Final Test: Culture, Blood (Site 2 )
Specimen Source: Blood, Venous
Specimen Type: Blood
Specimen Date: 02/25/2024 1417
Result Date: 03/01/2024 1501
Result Status: Final result
Resulting Lab: LABORATORY [facility] [place]
[address]
[place] [address]

CULTURE

No growth

null Performing Location LABORATORY [facility] [place] - [address] [place] [address] [place] [address]
--- OUTSIDE RECORDS SUMMARY | 2024-03-17 14:16 | External Medical Summary ---
Author Name Unknown Address Unknown Organization K01:[place] [facility] [place] [facility] [place] [address] Laboratory Report Ordering Provider Test Date Status WALTERRAFGUADALUPERICHA 02/26/2024 15:07:46 Final CRRT Labs: check once daily if not done already
Labs to be Drawn Peripherally

Warfarin Therapy
INR: 2.0-3.0 conventional anticoagulation
INR: 2.5-3.5 high intensity anticoagulation Observation Date Value Abnormality Reference (Units ) Status PT 02/26/2024 15:07:46 16.2 Above high normal 11 .6-15.2 (seconds) Final INR 02/26/2024 15:07:46 1.3 Above high normal 0. 8-1.2 Final Performing Location [facility] [facility] [place] [address] [place] [address]
--- OUTSIDE RECORDS SUMMARY | 2024-03-17 14:16 | External Medical Summary | Summary of Care ---
Author Name Unknown Organization [facility] Address [address] [place] [address] Phone [phone] Care Team Providers Care Clay Thrower Name Role Phone Tomer Garner MD Primary Care Provider + [phone] Encounter Details Date Type Department Care Team (Late st Contact Info) Description 02/26/2024 Population Health External Data Unspecified Department Allergies No known active allergiesdocumented as of this encounter (statuses as of 02/26/2024) Medications Medication Sig Dispensed Refills Start Date End Date Status Folic Acid 1 MG Oral Tablet Take 1 Tablet by mouth in the morning. 90 Tablet 1 12/01/2022 Suspended Additional Information Patient not taking.Reported on 11/03/2023 Febuxostat 80 MG Oral Tablet (Uloric)Indicatio ns:Chronic [...] morning and 1 Capsule before bedtime. 08/21/2023 Suspended Additional Information Patient not taking.Reported on 12/26/2023 Gentamicin Sulfate 0.1 % External CreamIndications: ESRD on peritoneal dialysis (HCC) Apply topically to affected area daily. Apply to PD exit catheter site daily after showering and cover with bandage 15 g 2 09/08/2023 Suspended Additional Information Dialyvite Oral Tablet Take 1 Tablet by mouth in the morning. 30 Tablet 11 09/28/2023 Suspended Additional Information Losartan Potassium 50 MG Oral Tablet (Cozaar) Take 1 Tablet by mouth in the morning. 30 Tablet 11 11/21/2023 Suspended Additional Information Patient not taking.Reported on 02/08/2024 Syringe 21G X 1" 3 ML Retacrit [...] Tablet 11 12/26/2023 Suspended Additional Information Retacrit 33440 UNIT/ML Injection Solution (Epoetin melita-epbx ESRD)Indications: ESRD on peritoneal dialysis (HCC) Inject 0.82 mL under the skin once a week. 5 mL 01/18/2024 Suspended Additional Information BD Syringe Slip Tip 25G X 5/8" 1 ML (Tuberculin Syringe) Use to inject Retacrit weekly 12 Each 5 01/22/2024 Suspended Additional Information Patient not taking.Reported on 02/08/2024 Metoprolol Succinate ER 100 MG Oral Tablet Extended Release 24 Hour (toPROL XL) Take 0.5 Tablets by mouth in the morning. 12/23/2023 Suspended Cinacalcet HCl 60 MG Oral Tablet (Sensipar) Take 1 Tablet by mouth daily with dinner. 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, [...] as of this encounter (statuses as of 02/26/2024) Resolved Problems Problem Noted Date Diagnosed Date [...] as of this encounter (statuses as of 02/26/2024) Immunizations Name Administration Dates Next Due COVID-19 mRNA, LNP-s, No Pre serve, 2-Dose Series (Moderna) 11/23/2020,10/18/2020 DTP Vaccine 1981,1981,1981 HEP B - Hepatitis B (Dialysis/Immumocomp Pt) 05/02/2023,04/04/2023 MMR - Measles/Mumps/Rubella Vaccine 05/11/1982 OPV - Polio Virus Vaccine (Oral) 1981,04/11 Pneumococcal Conjugate Vacci ne, 20-valent ([id number]) 11/17/2022 Seasonal Influenza, PF, 6 M & [...] [address] [place] [id number] [facility] [place] D[place] [address] [facility] [place] [address] 03/11/2024 8:00 AM EDT Treatment Home Dialysis [address] [place] [address] Nurse, Lance Lopez [facility] [address] [place] [address] 03/28/2024 1:00 PM EDT Office Visit Home Dialysis [facility] [address], [place] [address] [facility], Peritoneal Dialysis [address] [place] [address] 04/11/2024 8:00 AM EDT Treatment Home Dialysis [facility] [address], [place] [address] Nurse, Lance Lopez [address] [place] [address] 04/15/2024 1:00 PM EDT Hospital Encounter Radiology, [place] [address], [place] [id number] 04/16/2024 11:00 AM EDT Office Visit Transplant Clinic, [place] [address] [place] [address] Gutierrez Monae MD [address] [place] [address] Win Julio MD [address] [place] [address] Nurse [facility] [address] [place] [address] Chana Robin LSW [address] [place] [address] 04/16/2024 2:50 PM EDT Laboratory Outpatient Laboratory, [place] [address] [place] [address] [place], Lab B1a [address] [place] [address] 04/17/2024 1:00 PM EDT Appointment Radiology, [place] [address], [place] [phone] 04/29/2024 1:00 PM EDT Office Visit Home Dialysis [address], [place] [phone] [facility], Peritoneal Dialysis [address] [place] [address] 05/27/2024 12:40 PM EDT Nutrition Services Nutrition & Weight Management, [place] [address] [place] [address] Jaz Best, RDN [address] [place] [address] Health Maintenance Due Date Last Done Comments COVID-19 Vaccine (3 - Moderna risk series) 12/21/2020 11/23/2020, 10/18/2020 Hepatitis B (3 of 4 - Risk Dialysis Recombivax 3-dose series) 10/05/2023 05/02/2023, 04/04/2023 Depression Screening 12/06/2024 12/07/2023 Diabetes Screening 02/25/2027 02/26/2024, 0 02/26/2024, 02/25/2024, Additional history exists DTaP,Tdap,and Td Vaccines (6 [...] Advance Directives occurred with: Patient Care Teams Clay Thrower Relationship Specialty Start Date End Date Tomer Garner MD [address] [place] [address] PCP - General 09/19/02 documented as of this encounter
--- OUTSIDE RECORDS SUMMARY | 2024-03-17 14:16 | External Medical Summary ---
Author Name Unknown Address Unknown Organization K01:[facility] [place] [address] [place] [address] Laboratory Report Ordering Provider Test Date Status WALTERCAROL 02/26/2024 15:07:46 Final CRRT Labs: Check at initiati on of CRRT, One hour after CRRT and Every 6 hours
Labs to be Drawn Peripherally Observation Date Value Abnormality Reference (Units ) Status Phosphate 02/26/2024 15:07:46 12.1 Above high normal 2. 5-4.8 (mg/dL) Final Performing Location [facility] [place] [address] [place] [address]
--- OUTSIDE RECORDS SUMMARY | 2024-03-17 14:16 | External Medical Summary ---
Author Name Unknown Address Unknown Organization [id number]:[facility]ORY [facility] [place] [address] [place] [address] Laboratory Report Ordering Provider Test Date Status LALA BURCH 02/26/2024 18:42:52 Final Observation Date Value Abnormality Reference (Units ) Status Troponin T 02/26/2024 18:42:52 111 Above upper panic limits <=22 (ng/L) Final Performing Location [facility] - [address] [place] [address]
--- OUTSIDE RECORDS SUMMARY | 2024-03-17 14:16 | External Medical Summary ---
Author Name Unknown Address Unknown Organization [id number]:LABORATORY [facility] [place] [address] [facility] [address] Laboratory Report Ordering Provider Test Date Status LALA BURCH 02/25/2024 19:34:00 Final Observation Date Value Abnormality Reference (Units ) Status Troponin T 02/25/2024 19:34:00 111 Above upper panic limits <=22 (ng/L) Final Performing Location [facility] - [address] [facility] [address]
--- OUTSIDE RECORDS SUMMARY | 2024-03-17 14:16 | External Medical Summary ---
Author Name Unknown Address Unknown Organization K01:[facility]ORY [facility] [place] [address] [place] [address] Laboratory Report Ordering Provider Test Date Status WALTERCAROL 02/26/2024 23:40:30 Final CRRT Labs: Check at initiati on of CRRT, One hour after CRRT and Every 6 hours
Labs to be Drawn Peripherally Observation Date Value Abnormality Reference (Units ) Status Phosphate 02/26/2024 23:40:30 7.4 Above high normal 2. 5-4.8 (mg/dL) Final Performing Location [facility]ORY [facility] [place] [address] [place] [address]
--- OUTSIDE RECORDS SUMMARY | 2024-03-17 14:16 | External Medical Summary ---
Author Name Unknown Address Unknown Organization [id number]:[facility]ORY [facility] [place] [address] [facility] [address] Laboratory Report Ordering Provider Test Date Status LALA BURCH 02/26/2024 07:40:52 Final Observation Date Value Abnormality Reference (Units ) Status Body temperature 02/26/2024 07:40:52 37.0 (C) Final pH of Arterial blood 02/26/2024 07:40:52 7.304 Below low normal 7.350-7.450 (units) Final Carbon dioxide [Partial pressure] in Arterial blood 02/26/2024 07:40:52 48.7 Above high normal 35.0-45.0 (mmHg) Final Oxygen [Partial pressure] in Arterial blood 02/26/2024 07:40:52 92.3 75.0-100.0 (mmHg) Final Base excess, Arterial 02/26/2024 07:40:52 -2.4 Below low normal -2.0-2.0 (mmol/L) Final Hemoglobin [Mass/volume] in Blood by Oximetry 02/26/2024 07:40:52 8.8 Below low normal 14.0-16.8 (g/dL) Final Oxyhemoglobin, Arterial (FO2HB) 02/26/2024 07:40:52 93.1 Below low normal 94.0-99.0 (% total Hgb) Final Carboxyhemoglobin 02/26/2024 07:40:52 2.2 Above high normal <=1.5 (% total Hgb) Final Smokers: 0-9.0 % Methemoglobin 02/26/2024 07:40:52 1.0 <= 1.5 (% total Hgb) Final Deoxyhemoglobin/Hemoglo bin.total in Arterial blood 02/26/2024 07:40:52 3.7 0.0-5.0 (% total Hgb) Final Oxygen content in Arterial blood 02/26/2024 07:40:52 11.7 Below low normal 15.0-24.0 (%vol) Final Oxygen/Total gas setting [Volume Fraction] Ventilator 02/26/2024 07:40:52 35 (%) Final O2 FLOW, ARTERIAL - [facility] 02/26/2024 07:40:52 8 (L/min) Final Bicarbonate, Venous, POC (i-STAT) 02/26/2024 07:40:52 23.4 23.0-31.0 (mmol/L) Final Performing Location LAB[facility]ORY [facility] [place] - [address] [facility] [address]
--- OUTSIDE RECORDS SUMMARY | 2024-03-17 14:16 | External Medical Summary ---
Author Name Unknown Address Unknown Organization K01:[facility]ATORY [facility] [place] [address] [facility] [address] Laboratory Report Ordering Provider Test Date Status LALA BURCH 02/25/2024 23:41:00 Final Observation Date Value Abnormality Reference (Units ) Status Troponin T 02/25/2024 23:41:00 115 Above upper panic limits <=22 (ng/L) Final Performing Location [facility] - [address] [place] [address]
--- OUTSIDE RECORDS SUMMARY | 2024-03-17 14:16 | External Medical Summary ---
Author Name Unknown Address Unknown Organization : Laboratory Report Ordering Provider Test Date Status BENTON MARTINEZ 02/25/2024 12:27:56 Final Observation Date Value Abnormality Reference (Units ) Status Glucose Point of Care 02/25/2024 12:27:56 102 70-120 (mg/dL) Final Performing Location
--- OUTSIDE RECORDS SUMMARY | 2024-03-17 14:16 | External Medical Summary ---
Author Name Unknown Address Unknown Organization K01:[facility] [place] [address] [place] [address] Laboratory Report Ordering Provider Test Date Status KAHLIL ADAMS 02/25/2024 05:50:00 Final Warfarin Therapy
INR: 2 .0-3.0 conventional anticoagulation
INR: 2.5- 3.5 high intensity anticoagulation Observation Date Value Abnormality Reference (Units ) Status PT 02/25/2024 05:50:00 16.1 Above high normal 11 .6-15.2 (seconds) Final INR 02/25/2024 05:50:00 1.3 Above high normal 0. 8-1.2 Final Performing Location [facility] [place] [address] [place] [address]
--- OUTSIDE RECORDS SUMMARY | 2024-03-17 14:16 | External Medical Summary ---
Author Name Unknown Address Unknown Organization K01:[facility] - [address] [place] [address] Laboratory Report Ordering Provider Test Date Status CHRISTIANO BRADY 02/26/2024 06:05:00 Final Observation Date Value Abnormality Reference (Units ) Status Phosphate 02/26/2024 06:05:00 14.2 Above high normal 2. 5-4.8 (mg/dL) Final Performing Location [facility] - [address] [place] [address]
--- OUTSIDE RECORDS SUMMARY | 2024-03-17 14:16 | External Medical Summary ---
Author Name Unknown Address Unknown Organization K01:[facility]ORY [facility] [place] [address] [place] [address] Laboratory Report Ordering Provider Test Date Status LALA BURCH 02/25/2024 14:09:00 Final Observation Date Value Abnormality Reference (Units ) Status Lactic Acid 02/25/2024 14:09:00 0.9 0.4-2.0 (mmol/L) Final Performing Location [facility] - [address] [place] [address]
--- OUTSIDE RECORDS SUMMARY | 2024-03-17 14:16 | External Medical Summary ---
Author Name Unknown Address Unknown Organization K01:[facility] [place] [facility] [address] [facility] [address] Laboratory Report Ordering Provider Test Date Status LALA BURCH 02/26/2024 06:05:00 Final Assay measures the level of platelet [...] Platelet aggregation ADP induced [Units/volume] in Blood 02/26/2024 06:05:00 226 182-335 (PRU) Final Performing Location LAB[facility] [place] [facility] [address] [facility] [address] [facility] [address] [facility] [address]
--- OUTSIDE RECORDS SUMMARY | 2024-03-17 14:16 | External Medical Summary ---
Author Name Unknown Address Unknown Organization : Laboratory Report Ordering Provider Test Date Status BENTON MARTINEZ 02/25/2024 17:46:45 Final Observation Date Value Abnormality Reference (Units ) Status Glucose Point of Care 02/25/2024 17:46:45 102 70-120 (mg/dL) Final Performing Location
--- OUTSIDE RECORDS SUMMARY | 2024-03-17 14:16 | External Medical Summary ---
Author Name Unknown Address Unknown Organization K01:[facility] [place] [facility] [address] [facility] [address] [place] [address] Laboratory Report Ordering Provider Test Date Status CAROL WATSON 02/26/2024 18:42:52 Final CRRT Labs: Check at initiati on of CRRT, One hour after CRRT and Every 6 hours
Labs to be Drawn Peripherally Observation Date Value Abnormality Reference (Units ) Status BUN 02/26/2024 18:42:52 55 Above high normal 6-20 (mg/dL) Final Creatinine 02/26/2024 18:42:52 17.0 Above high normal 0.6-1.2 (mg/dL) Final Glomerular filtration rate/1.73 sq M.predicted [Volume Rate/Area] in Serum, Plasma or Blood by Creatinine-based formula (CKD-EPI) 02/26/2024 18:42:52 3 Below low normal >=60 (mL/min) Final eGFR is calculated based on the CKD-EPI 2020 equation Sodium 02/26/2024 18:42:52 143 135-146 (m mol/L) Final Potassium 02/26/2024 18:42:52 3.5 3.5-5.1 (m mol/L) Final Cl 02/26/2024 18:42:52 95 Below low normal 98- 107 (mmol/L) Final CO2 02/26/2024 18:42:52 21 Below low normal 22- 32 (mmol/L) Final Anion gap 02/26/2024 18:42:52 27 Above high normal 7- 15 (mmol/L) Final Glucose 02/26/2024 18:42:52 115 70-120 (mg /dL) Final Calcium 02/26/2024 18:42:52 8.4 8.4-10.2 ( mg/dL) Final Performing Location LAB[facility]ORY [facility] [place] [address] [facility] [address] [place] [address]
--- OUTSIDE RECORDS SUMMARY | 2024-03-17 14:16 | External Medical Summary ---
Author Name Unknown Address Unknown Organization K01:LABORATORY [place] - [address] [place] [address] Laboratory Report Ordering Provider Test Date Status KIERSTENLALA 02/25/2024 14:09:00 Final Observation Date Value Abnormality Reference (Units ) Status Bacteria identified in Specimen by Culture 02/25/2024 14:09:00 No growth Final Test: Culture, Blood
Spe cimen Source: Blood, Venous
Specimen Type: Blood
Specimen Date: 02/25/2024 1409
Result Date: 03/01/2024 1501
Result Status: Final result
Resulting Lab: [facility] [place]
[address]
[place] [address]

CULTURE

No growth

null Performing Location LABORATORY [place] - [address] [place] [address]
--- OUTSIDE RECORDS SUMMARY | 2024-03-17 14:16 | External Medical Summary ---
Author Name Unknown Address Unknown Organization : Laboratory Report Ordering Provider Test Date Status BENTON MARTINEZ 02/25/2024 23:10:36 Final Observation Date Value Abnormality Reference (Units ) Status Glucose Point of Care 02/25/2024 23:10:36 98 70-120 (mg/dL) Final Performing Location
--- OUTSIDE RECORDS SUMMARY | 2024-03-17 14:16 | External Medical Summary ---
Author Name Unknown Address Unknown Organization K01:[facility] - [address] [place] [address] Laboratory Report Ordering Provider Test Date Status CHRISTIANO BRADY 02/26/2024 06:05:00 Final Observation Date Value Abnormality Reference (Units ) Status Magnesium 02/26/2024 06:05:00 2.3 1.5-2.6 (m g/dL) Final Performing Location [facility] - [address] [place] [address]
--- OUTSIDE RECORDS SUMMARY | 2024-03-17 14:16 | External Medical Summary ---
Author Name Unknown Address Unknown Organization K01:[facility] - [address] [place] [address] Laboratory Report Ordering Provider Test Date Status CHRISTIANO BRADY 02/25/2024 05:50:00 Final Observation Date Value Abnormality Reference (Units ) Status Phosphate 02/25/2024 05:50:00 15.3 Above high normal 2. 5-4.8 (mg/dL) Final Performing Location [facility] - [address] [place] [address]
--- OUTSIDE RECORDS SUMMARY | 2024-03-17 14:16 | External Medical Summary ---
Author Name Unknown Address Unknown Organization K01:LAB[facility]ATORY [facility] [place] [address] [facility] [address] Laboratory Report Ordering Provider Test Date Status LALA BURCH 02/26/2024 23:40:30 Final Observation Date Value Abnormality Reference (Units ) Status Troponin T 02/26/2024 23:40:30 118 Above upper panic limits <=22 (ng/L) Final Performing Location [facility] - [address] [place] [address]
--- OUTSIDE RECORDS SUMMARY | 2024-03-17 14:16 | External Medical Summary ---
Author Name Unknown Address Unknown Organization K01:LABORATORY [facility] [place] - [address] [place] [address] Laboratory Report Ordering Provider Test Date Status WALTER,OLOWOYO 02/26/2024 15:07:46 Final CRRT Labs: check once daily if not done already
Labs to be Drawn Peripherally Observation Date Value Abnormality Reference (Units ) Status Albumin 02/26/2024 15:07:46 4.2 3.8-5.0 (g/dL) Final AST (Aspartate aminotransferase) 02/26/2024 15:07:46 27 10-50 (U/L) Final Alk Phos 02/26/2024 15:07:46 92 35-130 (U/L) Final ALT (Alanine aminotransferase) 02/26/2024 15:07:46 36 10-50 (U/L) Final Bilirubin, Total 02/26/2024 15:07:46 0.4 <=1.2 (mg/dL) Final Bilirubin, Direct 02/26/2024 15:07:46 <0.2 0.0-0.3 (mg/dL) Final Protein 02/26/2024 15:07:46 7.2 6.0-8.3 (g/dL) Final Performing Location LABORATORY [facility] [place] - [address] [place] [address]
--- OUTSIDE RECORDS SUMMARY | 2024-03-17 14:17 | External Medical Summary ---
Author Name Unknown Address Unknown Organization K01:LABORATORY [facility] [place] [address] [place] [address] Laboratory Report Ordering Provider Test Date Status MARI BOB 02/22/2024 13:58:45 Final Observation Date Value Abnormality Reference (Units ) Status Albumin 02/22/2024 13:58:45 4.2 3.8-5.0 (g/dL) Final Calcium 02/22/2024 13:58:45 7.9 Below low normal 8.4-10.2 (mg/dL) Final Phosphate 02/22/2024 13:58:45 12.9 Above high normal 2.5-4.8 (mg/dL) Final Calcium [Moles/volume] corrected for albumin in Serum or Plasma 02/22/2024 13:58:45 7.9 (mg/dL) Final Calcium-phosphorus product panel - Serum or Plasma 02/22/2024 13:58:45 101.9 Final Performing Location LABORATORY [facility] [place] - [facility] [place] [address]
--- OUTSIDE RECORDS SUMMARY | 2024-03-17 14:17 | External Medical Summary ---
Author Name Unknown Address Unknown Organization K01:[facility] [place] [facility] [place] [address] [facility] [address] Laboratory Report Ordering Provider Test Date Status LONDON NGUYEN 02/24/2024 04:29:00 Final Observation Date Value Abnormality Reference (Units ) Status WBC, Total 02/24/2024 04:29:00 12.72 Above high normal 4.00-10.80 (K/uL) Final RBC 02/24/2024 04:29:00 3.36 4.50-5.25 (M/uL) Final Hemoglobin 02/24/2024 04:29:00 9.7 Below low normal 14.0-16.8 (g/dL) Final HCT 02/24/2024 04:29:00 29.4 Below low normal 40.0-48.4 (%) Final MCV 02/24/2024 04:29:00 87.5 82.0-99.5 (fL) Final MCH 02/24/2024 04:29:00 28.9 27.0-34.0 (pg) Final MCHC 02/24/2024 04:29:00 33.0 32.0-36.0 (g/dL) Final RDW 02/24/2024 04:29:00 15.2 11.5-15.5 (%) Final Platelets 02/24/2024 04:29:00 237 140-400 (K/uL) Final MPV 02/24/2024 04:29:00 9.6 6.6-11.1 (fL) Final Nucleated erythrocytes/100 leukocytes [Ratio] in Blood by Automated count 02/24/2024 04:29:00 0 <=0 (/100 WBCs) Final Performing Location [facility] [place] [address] [facility] [address]
--- OUTSIDE RECORDS SUMMARY | 2024-03-17 14:17 | External Medical Summary ---
Author Name Unknown Address Unknown Organization K01:[facility]ORY [facility] - [address] [place] [address] Laboratory Report Ordering Provider Test Date Status MARILEE MALIK 02/24/2024 09:09:00 Final Observation Date Value Abnormality Reference (Units ) Status Troponin T 02/24/2024 09:09:00 80 Above high normal < =22 (ng/L) Final Performing Location [facility] - [address] [place] [address]
--- OUTSIDE RECORDS SUMMARY | 2024-03-17 14:17 | External Medical Summary ---
Author Name Unknown Address Unknown Organization K01:[facility] [place] [address] [facility] [address] Laboratory Report Ordering Provider Test Date Status CHRISTIANO BRADY 02/24/2024 09:09:00 Final Observation Date Value Abnormality Reference (Units ) Status WBC, Total 02/24/2024 09:09:00 10.88 Above high normal 4.00-10.80 (K/uL) Final RBC 02/24/2024 09:09:00 2.89 4.50-5.25 (M/uL) Final Hemoglobin 02/24/2024 09:09:00 8.4 Below low normal 14.0-16.8 (g/dL) Final HCT 02/24/2024 09:09:00 25.8 Below low normal 40.0-48.4 (%) Final MCV 02/24/2024 09:09:00 89.3 82.0-99.5 (fL) Final MCH 02/24/2024 09:09:00 29.1 27.0-34.0 (pg) Final MCHC 02/24/2024 09:09:00 32.6 32.0-36.0 (g/dL) Final RDW 02/24/2024 09:09:00 15.2 11.5-15.5 (%) Final Platelets 02/24/2024 09:09:00 198 140-400 (K/uL) Final MPV 02/24/2024 09:09:00 8.8 6.6-11.1 (fL) Final Nucleated erythrocytes/100 leukocytes [Ratio] in Blood by Automated count 02/24/2024 09:09:00 0 <=0 (/100 WBCs) Final Performing Location LAB[facility]ORY [facility] [place] [address] [place] [address]
--- OUTSIDE RECORDS SUMMARY | 2024-03-17 14:17 | External Medical Summary ---
Author Name Unknown Address Unknown Organization K01:LABORATORY [facility] - [address] [place] [address] Laboratory Report Ordering Provider Test Date Status MARILEE MALIK 02/24/2024 04:30:00 Final Observation Date Value Abnormality Reference (Units ) Status Troponin T 02/24/2024 04:30:00 87 Above high normal < =22 (ng/L) Final Result may be falsely decrea sed due to hemolysis. Performing Location LABORATORY [facility] - [address] [place] [address]
--- OUTSIDE RECORDS SUMMARY | 2024-03-17 14:17 | External Medical Summary ---
Author Name Unknown Address Unknown Organization K01:LABORATORY [facility] - [address] [facility] [address] Laboratory Report Ordering Provider Test Date Status CHRISTIANO BRADY 02/25/2024 05:50:00 Final Observation Date Value Abnormality Reference (Units ) Status BUN 02/25/2024 05:50:00 64 Above high normal 6-20 (mg/dL) Final Creatinine 02/25/2024 05:50:00 18.6 Above high normal 0.6-1.2 (mg/dL) Final Glomerular filtration rate/1.73 sq M.predicted [Volume Rate/Area] in Serum, Plasma or Blood by Creatinine-based formula (CKD-EPI) 02/25/2024 05:50:00 3 Below low normal >=60 (mL/min) Final eGFR is calculated based on the CKD-EPI 2020 equation Sodium 02/25/2024 05:50:00 137 135-146 (m mol/L) Final Potassium 02/25/2024 05:50:00 4.1 3.5-5.1 (m mol/L) Final Cl 02/25/2024 05:50:00 92 Below low normal 98- 107 (mmol/L) Final CO2 02/25/2024 05:50:00 19 Below low normal 22- 32 (mmol/L) Final Anion gap 02/25/2024 05:50:00 26 Above high normal 7- 15 (mmol/L) Final Glucose 02/25/2024 05:50:00 102 70-120 (mg /dL) Final Calcium 02/25/2024 05:50:00 8.1 Below low normal 8.4 -10.2 (mg/dL) Final Performing Location LABORATORY [facility] - [address] [place] [address]
--- OUTSIDE RECORDS SUMMARY | 2024-03-17 14:17 | External Medical Summary ---
Author Name Unknown Address Unknown Organization K01:[facility] - [address] [place] [address] [place] [address] Laboratory Report Ordering Provider Test Date Status MARI BOB 02/22/2024 13:58:45 Final Observation Date Value Abnormality Reference (Units ) Status Hep B surface Ag 02/22/2024 13:58:45 Negative Neg ative Final Performing Location [facility] - [address] [place] [address]
--- OUTSIDE RECORDS SUMMARY | 2024-03-17 14:17 | External Medical Summary ---
Author Name Unknown Address Unknown Organization : Laboratory Report Ordering Provider Test Date Status BENTON MARTINEZ 02/24/2024 18:43:53 Final Observation Date Value Abnormality Reference (Units ) Status Glucose Point of Care 02/24/2024 18:43:53 94 70-120 (mg/dL) Final Performing Location
--- OUTSIDE RECORDS SUMMARY | 2024-03-17 14:17 | External Medical Summary ---
Author Name Unknown Address Unknown Organization K01:[facility] [place] [address] [place] [address] Laboratory Report Ordering Provider Test Date Status MARILEE MALIK 02/24/2024 04:30:00 Final Observation Date Value Abnormality Reference (Units ) Status Triglyceride 02/24/2024 04:30:00 205 Above high normal <=174 (mg/dL) Final Triglyceride Reference Range s (mg/dL):
<150 Acceptable
150-174 Borderline high
175-499 High
>=500 Very high Cholesterol 02/24/2024 04:30:00 143 <200 (mg /dL) Final Total Cholesterol Reference Ranges (mg/dL):
<200 Desirable
200-239 Borderline high
>=240 High HDL 02/24/2024 04:30:00 21 Below low normal >39 (mg/dL) Final HDL Cholesterol Reference Ra nges (mg/dL):
>=60 High (Desirable)
<50 Low (Undesirable) For Females
<40 Low (Undesirable) For Males NON-HDL CHOLESTEROL 02/24/2024 04:30:00 122 <=159 (mg/dL) Final Non-HDL Cholesterol Referenc e Range (mg/dL):
<100 Target level for high risk ASCVD patient
<130 Optimal for general population
130-159 Near optimal for general population
160-189 Borderline High
190-219 High
>=220 Very High Performing Location [facility] - [address] [place] [address]
--- OUTSIDE RECORDS SUMMARY | 2024-03-17 14:17 | External Medical Summary ---
Author Name Unknown Address Unknown Organization K01:[facility]ATORY [facility] [place] [address] [place] [address] Laboratory Report Ordering Provider Test Date Status LONDON NGUYEN 02/24/2024 04:30:00 Final Observation Date Value Abnormality Reference (Units ) Status BUN 02/24/2024 04:30:00 68 Above high normal 6-20 (mg/dL) Final Creatinine 02/24/2024 04:30:00 17.4 Above high normal 0.6-1.2 (mg/dL) Final Glomerular filtration rate/1.73 sq M.predicted [Volume Rate/Area] in Serum, Plasma or Blood by Creatinine-based formula (CKD-EPI) 02/24/2024 04:30:00 3 Below low normal >=60 (mL/min) Final eGFR is calculated based on the CKD-EPI 2020 equation Sodium 02/24/2024 04:30:00 134 Below low normal 135 -146 (mmol/L) Final Potassium 02/24/2024 04:30:00 3.8 3.5-5.1 (m mol/L) Final Result may be falsely elevat ed due to hemolysis. Cl 02/24/2024 04:30:00 89 Below low normal 98- 107 (mmol/L) Final CO2 02/24/2024 04:30:00 19 Below low normal 22- 32 (mmol/L) Final Anion gap 02/24/2024 04:30:00 26 Above high normal 7- 15 (mmol/L) Final Glucose 02/24/2024 04:30:00 122 Above high normal 70 -120 (mg/dL) Final Calcium 02/24/2024 04:30:00 8.4 8.4-10.2 ( mg/dL) Final Performing Location [facility]ORY [facility] [place] [address] [place] [address]
--- OUTSIDE RECORDS SUMMARY | 2024-03-17 14:17 | External Medical Summary ---
Author Name Unknown Address Unknown Organization K01:LABORATORY [facility] [place] - [address] [place] [address] Laboratory Report Ordering Provider Test Date Status LONDON NGUYEN 02/24/2024 04:30:00 Final Warfarin Therapy
INR: 2 .0-3.0 conventional anticoagulation
INR: 2.5- 3.5 high intensity anticoagulation Observation Date Value Abnormality Reference (Units ) Status PT 02/24/2024 04:30:00 15.6 Above high normal 11 .6-15.2 (seconds) Final INR 02/24/2024 04:30:00 1.2 0.8-1.2 Final Performing Location [facility]ATORY [facility] [place] - [address] [place] [address]
--- OUTSIDE RECORDS SUMMARY | 2024-03-17 14:17 | External Medical Summary ---
Author Name Unknown Address Unknown Organization K01:[facility] - [address] [place] [address] Laboratory Report Ordering Provider Test Date Status MARI BOB 02/22/2024 13:58:45 Final Observation Date Value Abnormality Reference (Units ) Status BUN 02/22/2024 13:58:45 67 Above high normal 6- 20 (mg/dL) Final Performing Location [facility] - [address] [place] [address]
--- OUTSIDE RECORDS SUMMARY | 2024-03-17 14:17 | External Medical Summary ---
Author Name Unknown Address Unknown Organization K01:LABORATORY [facility] [place] - [address] [place] [address] Laboratory Report Ordering Provider Test Date Status MARI BOB 02/22/2024 13:58:45 Final Observation Date Value Abnormality Reference (Units ) Status Potassium 02/22/2024 13:58:45 3.6 3.5-5.1 (m mol/L) Final Performing Location [facility] - [address] [place] [address]
--- OUTSIDE RECORDS SUMMARY | 2024-03-17 14:17 | External Medical Summary ---
Author Name Unknown Address Unknown Organization : Laboratory Report Ordering Provider Test Date Status HUNTER GARCIA 02/24/2024 04:35:21 Final Observation Date Value Abnormality Reference (Units ) Status Blood draw [PhenX] 02/24/2024 04:35:21 Venous Final pH, POC (i-STAT) 02/24/2024 04:35:21 7.333 Below low normal 7.350-7.450 Final PCO2 POC (i-STAT) 02/24/2024 04:35:21 48.1 Above high normal 35.0-45.0 (mm Hg) Final PO2 POC (i-STAT) 02/24/2024 04:35:21 28 Below lower panic limits 75-100 (mm Hg) Final Bicarbonate, Venous, POC (i-STAT) 02/24/2024 04:35:21 25.5 23.0-31.0 (mmol/L) Final Base excess standard in Arterial blood by calculation 02/24/2024 04:35:21 -1 -2-2 (mmol/L) Final O2 Sat, calculated POC (i-STAT) 02/24/2024 04:35:21 48.0 Below low normal 94.0-98.0 (%) Final Performing Location
--- OUTSIDE RECORDS SUMMARY | 2024-03-17 14:17 | External Medical Summary ---
Author Name Unknown Address Unknown Organization K01:[facility] [place] [address] [facility] [address] [address] Laboratory Report Ordering Provider Test Date Status MARILEE MALIK 02/24/2024 09:10:00 Final Observation Date Value Abnormality Reference (Units ) Status Body temperature 02/24/2024 09:10:00 37.0 (C) Final pH of Venous blood 02/24/2024 09:10:00 7.260 Below low normal 7.320-7.430 (units) Final Carbon dioxide [Partial pressure] in Venous blood 02/24/2024 09:10:00 48.4 40.0-60.0 (mmHg) Final Oxygen [Partial pressure] in Venous blood 02/24/2024 09:10:00 58.5 Above high normal 25.0-50.0 (mmHg) Final Base excess, Capillary 02/24/2024 09:10:00 -5.3 Below low normal -2.0-2.0 (mmol/L) Final Hemoglobin [Mass/volume] in Blood by Oximetry 02/24/2024 09:10:00 8.7 Below low normal 14.0-16.8 (g/dL) Final Oxyhemoglobin, Venous (FO2HB) 02/24/2024 09:10:00 80.6 40.0-85.0 (% total Hgb) Final Carboxyhemoglobin 02/24/2024 09:10:00 2.0 Above high normal <=1.5 (% total Hgb) Final Smokers: 0-9.0 % Methemoglobin 02/24/2024 09:10:00 1.5 <= 1.5 (% total Hgb) Final Deoxyhemoglobin/Hemoglo bin.total in Venous blood 02/24/2024 09:10:00 15.9 (% total Hgb) Final Oxygen content in Venous blood 02/24/2024 09:10:00 9.9 7.0-18.0 (%vol) Final Bicarbonate, Venous, POC (i-STAT) 02/24/2024 09:10:00 21.0 Below low normal 23.0-31.0 (mmol/L) Final Performing Location [facility] [place] [facility] [address] [facility] [address]
--- OUTSIDE RECORDS SUMMARY | 2024-03-17 14:17 | External Medical Summary ---
Author Name Unknown Address Unknown Organization K01:[facility] - [address] [place] [address] Laboratory Report Ordering Provider Test Date Status MARI BOB 02/22/2024 13:58:45 Final Observation Date Value Abnormality Reference (Units ) Status HCT 02/22/2024 13:58:45 30.4 Below low normal 40. 0-48.4 (%) Final Performing Location [facility] - [address] [place] [address]
--- OUTSIDE RECORDS SUMMARY | 2024-03-17 14:17 | External Medical Summary ---
Author Name Unknown Address Unknown Organization K01:[facility] - [address] [place] [address] Laboratory Report Ordering Provider Test Date Status MARI BOB 02/22/2024 13:58:45 Final Observation Date Value Abnormality Reference (Units ) Status Albumin 02/22/2024 13:58:45 4.2 3.8-5.0 (g /dL) Final Performing Location [facility] - [address] [place] [id number]
--- OUTSIDE RECORDS SUMMARY | 2024-03-17 14:17 | External Medical Summary ---
Author Name Unknown Address Unknown Organization K01:[facility] [place] [address] [place] [address] Laboratory Report Ordering Provider Test Date Status CHRISTIANO BRADY 02/24/2024 09:09:00 Final If on Warfarin

Warf candy Therapy
INR: 2.0-3.0 conventional anticoagulation
INR: 2.5-3.5 high intensity anticoagulation Observation Date Value Abnormality Reference (Units ) Status PT 02/24/2024 09:09:00 16.1 Above high normal 11 .6-15.2 (seconds) Final INR 02/24/2024 09:09:00 1.3 Above high normal 0. 8-1.2 Final Performing Location [facility] [place] [address] [place] [address]
--- OUTSIDE RECORDS SUMMARY | 2024-03-17 14:17 | External Medical Summary ---
Author Name Unknown Address Unknown Organization K01:[facility] [place] - [address] [place] [address] [place] [address] Laboratory Report Ordering Provider Test Date Status ANNAMARILEE 02/24/2024 09:09:00 Final Observation Date Value Abnormality Reference (Units ) Status cycloSPORINE [Mass/volume] in Blood by Immunoassay 02/24/2024 09:09:00 <40 Below low normal 100-300 (ng/mL) Final Test performed by CEDIA Plus assay on Lanie Ramos. Therapeutic ranges vary with the type of transplant, time post-transplant, clinical protocols, and testing methodology. Results should be interpreted with clinical presentation and any signs of rejection/toxicity. Performing Location LAB[facility]ATORY [facility] - [address] [place] [address]
--- OUTSIDE RECORDS SUMMARY | 2024-03-17 14:17 | External Medical Summary ---
Author Name Unknown Address Unknown Organization K01:[facility] - [address] [place] [address] Laboratory Report Ordering Provider Test Date Status HELENAMARILEE 02/24/2024 04:30:00 Final Observation Date Value Abnormality Reference (Units ) Status T4, Free 02/24/2024 04:30:00 0.9 0.9-1.7 (n g/dL) Final Performing Location [facility] - [address] [place] [address]
--- OUTSIDE RECORDS SUMMARY | 2024-03-17 14:17 | External Medical Summary ---
Author Name Unknown Address Unknown Organization : Laboratory Report Ordering Provider Test Date Status ANGELA DIAS 02/22/2024 14:01:29 Final Observation Date Value Abnormality Reference (Units ) Status REFERENCE LAB SCANNED REPORT 02/22/2024 14:01:29 See Scanned Report Final Performing Location
--- OUTSIDE RECORDS SUMMARY | 2024-03-17 14:17 | External Medical Summary ---
Author Name Unknown Address Unknown Organization K01:[facility]ORY [facility] [place] [address] [place] [address] Laboratory Report Ordering Provider Test Date Status MARI BOB 02/22/2024 13:58:45 Final Observation Date Value Abnormality Reference (Units ) Status Parathyrin.intact [Mass/volume] in Serum or Plasma 02/22/2024 13:58:45 201 Above high normal 15-65 (pg/mL) Final Performing Location LAB[facility]ORY [facility] [place] [address] [place] [address]
--- OUTSIDE RECORDS SUMMARY | 2024-03-17 14:17 | External Medical Summary ---
Author Name Unknown Address Unknown Organization : Laboratory Report Ordering Provider Test Date Status HUNTER GARCIA 02/24/2024 04:30:02 Final Observation Date Value Abnormality Reference (Units ) Status Sodium, Whole Blood 02/24/2024 04:30:02 132 Below low normal 135-146 (mmol/L) Final Potassium, Whole Blood 02/24/2024 04:30:02 3.6 3.5-5.1 (mmol/L) Final Chloride, Whole Blood 02/24/2024 04:30:02 94 Below low normal 98-107 (mmol/L) Final Calcium, Ionized, Whole Blood 02/24/2024 04:30:02 0.94 Below low normal 1.13-1.32 (mmol/L) Final Carbon dioxide, total [Moles/volume] in Blood 02/24/2024 04:30:02 24 22-32 (mmol/L) Final Glucose, whole blood 02/24/2024 04:30:02 119 70-120 (mg/dL) Final BUN, POC (i-STAT) 02/24/2024 04:30:02 78 Above high normal 6-20 (mg/dL) Final Creatinine, POC (i-STAT) 02/24/2024 04:30:02 19.6 Above high normal 0.6-1.2 (mg/dL) Final HCT 02/24/2024 04:30:02 31 Below low normal 40-48 (%) Final Hemoglobin POC (i-STAT) 02/24/2024 04:30:02 10.5 Below low normal 14.0-16.8 (g/dL) Final Anion gap, Whole Blood 02/24/2024 04:30:02 19 Above high normal 7-15 (mmol/L) Final Performing Location
--- OUTSIDE RECORDS SUMMARY | 2024-03-17 14:17 | External Medical Summary ---
Author Name Unknown Address Unknown Organization K01:[facility]ORY [facility] [place] [facility] [address] [place] [address] Laboratory Report Ordering Provider Test Date Status KIMBERLY BOBMUDEZ 02/22/2024 13:58:45 Final Observation Date Value Abnormality Reference (Units ) Status Creatinine 02/22/2024 13:58:45 17.6 Above high normal 0.6-1.2 (mg/dL) Final Glomerular filtration rate/1.73 sq M.predicted [Volume Rate/Area] in Serum, Plasma or Blood by Creatinine-based formula (CKD-EPI) 02/22/2024 13:58:45 3 Below low normal >=60 (mL/min) Final eGFR is calculated based on the CKD-EPI 2020 equation Performing Location LABORATORY [facility] [place] [facility] [address] [place] [address]
--- OUTSIDE RECORDS SUMMARY | 2024-03-17 14:17 | External Medical Summary ---
Author Name Unknown Address Unknown Organization K01:[facility] - [address] [place] [address] Laboratory Report Ordering Provider Test Date Status CHRISTIANO BRADY 02/24/2024 09:09:00 Final Observation Date Value Abnormality Reference (Units ) Status Phosphate 02/24/2024 09:09:00 13.7 Above high normal 2. 5-4.8 (mg/dL) Final Performing Location [facility] - [address] [place] [address]
--- OUTSIDE RECORDS SUMMARY | 2024-03-17 14:17 | External Medical Summary ---
Author Name Unknown Address Unknown Organization K01:LABORATORY [facility] [place] - [address] [facility] [address] Laboratory Report Ordering Provider Test Date Status QUINN DURAN 02/24/2024 21:29:00 Final Observation Date Value Abnormality Reference (Units ) Status Body temperature 02/24/2024 21:29:00 37.0 (C) Final pH of Arterial blood 02/24/2024 21:29:00 7.295 Below low normal 7.350-7.450 (units) Final Carbon dioxide [Partial pressure] in Arterial blood 02/24/2024 21:29:00 42.4 35.0-45.0 (mmHg) Final Oxygen [Partial pressure] in Arterial blood 02/24/2024 21:29:00 109.0 Above high normal 75.0-100.0 (mmHg) Final Base excess, Arterial 02/24/2024 21:29:00 -5.6 Below low normal -2.0-2.0 (mmol/L) Final Hemoglobin [Mass/volume] in Blood by Oximetry 02/24/2024 21:29:00 8.1 Below low normal 14.0-16.8 (g/dL) Final Oxyhemoglobin, Arterial (FO2HB) 02/24/2024 21:29:00 95.9 94.0-99.0 (% total Hgb) Final Carboxyhemoglobin 02/24/2024 21:29:00 2.1 Above high normal <=1.5 (% total Hgb) Final Smokers: 0-9.0 % Methemoglobin 02/24/2024 21:29:00 0.7 <=1.5 (% total Hgb) Final Deoxyhemoglobin/Hemog lobin.total in Arterial blood 02/24/2024 21:29:00 1.3 0.0-5.0 (% total Hgb) Final Oxygen content in Arterial blood 02/24/2024 21:29:00 11.1 Below low normal 15.0-24.0 (%vol) Final Oxygen/Total gas setting [Volume Fraction] Ventilator 02/24/2024 21:29:00 Nasal cannula (%) Final O2 FLOW, [facility] - [facility] 02/24/2024 21:29:00 4 L (L/min) Final Bicarbonate, Venous, POC (i-STAT) 02/24/2024 21:29:00 20.0 Below low normal 23.0-31.0 (mmol/L) Final Performing Location LABORATORY [facility] [place] - [address] [facility] [address]
--- OUTSIDE RECORDS SUMMARY | 2024-03-17 14:17 | External Medical Summary ---
Author Name Unknown Address Unknown Organization K01:[facility]ORY [facility] [place] [address] [facility] [address] Laboratory Report Ordering Provider Test Date Status KAHLIL ADAMS 02/24/2024 04:29:00 Final Observation Date Value Abnormality Reference (Units ) Status HbA1C 02/24/2024 04:29:00 5.2 4.0-5.6 (% ) Final The use of HbA1c to monitor glycemic status is based on normal hemoglobin and HbA composition. This test should not be used in patients with abnormal hemoglobin that affects the half life of the red blood cell or the in vivo glycation rates. Glucose, estimated average 02/24/2024 04:29:00 103 <126 (mg/dL) Final Performing Location [facility] [address] [facility] [address]
--- OUTSIDE RECORDS SUMMARY | 2024-03-17 14:17 | External Medical Summary ---
Author Name Unknown Address Unknown Organization K01:LABORATORY [facility] [place] - [address] [place] [address] [place] [address] Laboratory Report Ordering Provider Test Date Status CHRISTIANO BRADY 02/24/2024 09:09:00 Final Observation Date Value Abnormality Reference (Units ) Status BUN 02/24/2024 09:09:00 67 Above high normal 6-20 (mg/dL) Final Creatinine 02/24/2024 09:09:00 17.0 Above high normal 0.6-1.2 (mg/dL) Final Glomerular filtration rate/1.73 sq M.predicted [Volume Rate/Area] in Serum, Plasma or Blood by Creatinine-based formula (CKD-EPI) 02/24/2024 09:09:00 3 Below low normal >=60 (mL/min) Final eGFR is calculated based on the CKD-EPI 2020 equation Sodium 02/24/2024 09:09:00 131 Below low normal 135 -146 (mmol/L) Final Potassium 02/24/2024 09:09:00 3.4 Below low normal 3.5 -5.1 (mmol/L) Final Cl 02/24/2024 09:09:00 88 Below low normal 98- 107 (mmol/L) Final CO2 02/24/2024 09:09:00 19 Below low normal 22- 32 (mmol/L) Final Anion gap 02/24/2024 09:09:00 24 Above high normal 7- 15 (mmol/L) Final Glucose 02/24/2024 09:09:00 112 70-120 (mg /dL) Final Calcium 02/24/2024 09:09:00 8.3 Below low normal 8.4 -10.2 (mg/dL) Final Performing Location LABORATORY [facility] [place] - [address] [place] [address]
--- OUTSIDE RECORDS SUMMARY | 2024-03-17 14:17 | External Medical Summary ---
Author Name Unknown Address Unknown Organization K01:[facility] - [address] [place] [address] Laboratory Report Ordering Provider Test Date Status MARI BOB 02/22/2024 13:58:45 Final Observation Date Value Abnormality Reference (Units ) Status Glucose 02/22/2024 13:58:45 109 70-120 (mg /dL) Final Performing Location [facility] - [address] [place] [address]
--- OUTSIDE RECORDS SUMMARY | 2024-03-17 14:17 | External Medical Summary ---
Author Name Unknown Address Unknown Organization K01:LABORATORY [facility] [place] - [address] [place] [address] Laboratory Report Ordering Provider Test Date Status CAITLYNCHRISTIANO 02/24/2024 09:51:11 Final Observation Date Value Abnormality Reference (Units ) Status Methicillin resistant Staphylococcus aureus (MRSA) DNA [Presence] in Nose by MATILDE with probe detection 02/24/2024 09:51:11 Indeterminate. Repeat testing recommended. Abnormal Negative Final Performing Location LAB[facility]ORY [facility] - [address] [facility] [address]
--- OUTSIDE RECORDS SUMMARY | 2024-03-17 14:17 | External Medical Summary ---
Author Name Unknown Address Unknown Organization K01:LABORATORY [facility] [place] [facility] - [address] [place] [address] Laboratory Report Ordering Provider Test Date Status JOHN PAULMARILEE POLLARD 02/24/2024 09:10:00 Final Observation Date Value Abnormality Reference (Units ) Status ABO 02/24/2024 09:10:00 O Final RH 02/24/2024 09:10:00 Positive Final RED BLOOD CELL ANTIBODY SCREEN 02/24/2024 09:10:00 Negative Final SPECIMEN EXPIRATION DATE 02/24/2024 09:10:00 02/27/2024 23:59 Final Performing Location LABORATORY [facility] [place] [facility] - [address] [place] [address]
--- OUTSIDE RECORDS SUMMARY | 2024-03-17 14:17 | External Medical Summary ---
Author Name Unknown Address Unknown Organization K01:LABORATORY [facility] [place] [address] [facility] [address] Laboratory Report Ordering Provider Test Date Status CAITLYNCHRISTIANO 02/24/2024 09:09:00 Final Observation Date Value Abnormality Reference (Units ) Status SYNC LEUKOCYTES IN BLOOD BY AUTOMATED COUNT 02/24/2024 09:09:00 10.88 Above high normal 4.00-10.80 (K/uL) Final Segs 02/24/2024 09:09:00 65.8 40.0-75.0 (%) Final Lymphs % 02/24/2024 09:09:00 19.9 18.0-42.0 (%) Final Monos 02/24/2024 09:09:00 9.1 1.0-11.0 (%) Final Eosinophils 02/24/2024 09:09:00 3.5 0.0-6.0 (%) Final Basos 02/24/2024 09:09:00 0.5 0.0-2.0 (%) Final Immature Granulocyte, Percent 02/24/2024 09:09:00 1.2 0.0-2.0 (%) Final Absolute Segs 02/24/2024 09:09:00 7.17 1.80-7.70 (K/uL) Final Lymphs, absolute 02/24/2024 09:09:00 2.16 1.00-4.80 (K/ul) Final Monos, Abs 02/24/2024 09:09:00 0.99 0.00-1.10 (K/uL) Final Eos, Abs 02/24/2024 09:09:00 0.38 0.00-0.70 (K/uL) Final Basos, Abs 02/24/2024 09:09:00 0.05 0.00-0.20 (K/uL) Final Immature Granulocytes, Number 02/24/2024 09:09:00 0.13 0.00-0.20 (K/uL) Final Performing Location LABORATORY [facility] [place] - [address] [facility] [address]
--- OUTSIDE RECORDS SUMMARY | 2024-03-17 14:17 | External Medical Summary ---
Author Name Unknown Address Unknown Organization K01:LABORATORY [facility] [place] - [facility] [address] [facility] [address] [facility] [address] Laboratory Report Ordering Provider Test Date Status CHRISTIANO BRADY 02/25/2024 05:50:00 Final Observation Date Value Abnormality Reference (Units ) Status WBC, Total 02/25/2024 05:50:00 10.90 Above high normal 4.00-10.80 (K/uL) Final RBC 02/25/2024 05:50:00 2.75 4.50-5.25 (M/uL) Final Hemoglobin 02/25/2024 05:50:00 8.2 Below low normal 14.0-16.8 (g/dL) Final HCT 02/25/2024 05:50:00 24.9 Below low normal 40.0-48.4 (%) Final MCV 02/25/2024 05:50:00 90.5 82.0-99.5 (fL) Final MCH 02/25/2024 05:50:00 29.8 27.0-34.0 (pg) Final MCHC 02/25/2024 05:50:00 32.9 32.0-36.0 (g/dL) Final RDW 02/25/2024 05:50:00 15.7 11.5-15.5 (%) Final Platelets 02/25/2024 05:50:00 194 140-400 (K/uL) Final MPV 02/25/2024 05:50:00 8.8 6.6-11.1 (fL) Final Nucleated erythrocytes/100 leukocytes [Ratio] in Blood by Automated count 02/25/2024 05:50:00 0 <=0 (/100 WBCs) Final Performing Location LABORATORY [facility] [place] - [address] [place] [address]
--- OUTSIDE RECORDS SUMMARY | 2024-03-17 14:17 | External Medical Summary ---
Author Name Unknown Address Unknown Organization K01:[facility] - [address] [place] [id number] Laboratory Report Ordering Provider Test Date Status CHRISTIANO BRADY 02/24/2024 09:09:00 Final Observation Date Value Abnormality Reference (Units ) Status Magnesium 02/24/2024 09:09:00 2.1 1.5-2.6 (m g/dL) Final Performing Location [facility] - [address] [place] [id number]
--- OUTSIDE RECORDS SUMMARY | 2024-03-17 14:17 | External Medical Summary ---
Author Name Unknown Address Unknown Organization K01:LABORATORY [facility] - [address] [place] [address] Laboratory Report Ordering Provider Test Date Status MARI BOB 02/22/2024 13:58:45 Final Observation Date Value Abnormality Reference (Units ) Status Hemoglobin 02/22/2024 13:58:45 10.1 Below low normal 14 .0-16.8 (g/dL) Final Performing Location [facility] - [address] [place] [address]
--- OUTSIDE RECORDS SUMMARY | 2024-03-17 14:17 | External Medical Summary ---
Author Name Unknown Address Unknown Organization K01:[facility] [place] [address] [place] [address] Laboratory Report Ordering Provider Test Date Status CAITLYNCHRISTIANO 02/24/2024 09:09:00 Final Observation Date Value Abnormality Reference (Units ) Status Albumin 02/24/2024 09:09:00 3.7 Below low normal 3.8-5.0 (g/dL) Final AST (Aspartate aminotransferase) 02/24/2024 09:09:00 22 10-50 (U/L) Final Alk Phos 02/24/2024 09:09:00 113 35-130 (U/L) Final ALT (Alanine aminotransferase) 02/24/2024 09:09:00 44 10-50 (U/L) Final Bilirubin, Total 02/24/2024 09:09:00 0.4 <=1.2 (mg/dL) Final Bilirubin, Direct 02/24/2024 09:09:00 <0.2 0.0-0.3 (mg/dL) Final Protein 02/24/2024 09:09:00 6.5 6.0-8.3 (g/dL) Final Performing Location [facility] [place] [address] [place] [address]
--- OUTSIDE RECORDS SUMMARY | 2024-03-17 14:17 | External Medical Summary ---
Author Name Unknown Address Unknown Organization K01[place] [place] [address] [facility] [address] Laboratory Report Ordering Provider Test Date Status JOHN PAULATULMARILEE 02/24/2024 04:30:00 Final Observation Date Value Abnormality Reference (Units ) Status TSH 02/24/2024 04:30:00 4.82 Above high normal 0. 27-4.20 (uIU/mL) Final Performing Location [facility] [place] [address] [facility] [address]
--- OUTSIDE RECORDS SUMMARY | 2024-03-17 14:17 | External Medical Summary ---
Author Name Unknown Address Unknown Organization K01:[place] [place] [address] [place] [address] Laboratory Report Ordering Provider Test Date Status MARI BOB 02/22/2024 13:58:45 Final Study includes results for T ransferrin Saturation, Binding Capacity, and Iron. Observation Date Value Abnormality Reference (Units ) Status Iron 02/22/2024 13:58:45 66 45-176 (ug/dL) Final Iron-binding capacity 02/22/2024 13:58:45 246 Below low normal 250-425 (ug/dL) Final Transferrin Sat % 02/22/2024 13:58:45 27 15-55 (%) Final Performing Location LABORATORY [facility] - [address] [place] [address]
--- OUTSIDE RECORDS SUMMARY | 2024-03-17 14:17 | External Medical Summary ---
Author Name Unknown Address Unknown Organization K01:[facility] [place] [address] [place] [address] Laboratory Report Ordering Provider Test Date Status MARI BOB 02/22/2024 13:58:45 Final Observation Date Value Abnormality Reference (Units ) Status ALT (Alanine aminotransferase) 02/22/2024 13:58:45 50 10-50 (U/L) Final Performing Location [facility] - [address] [place] [address]
--- OUTSIDE RECORDS SUMMARY | 2024-03-17 14:17 | External Medical Summary ---
Author Name Unknown Address Unknown Organization : Laboratory Report Ordering Provider Test Date Status BENTON MARTINEZ 02/24/2024 12:19:41 Final Observation Date Value Abnormality Reference (Units ) Status Glucose Point of Care 02/24/2024 12:19:41 96 70-120 (mg/dL) Final Performing Location
--- OUTSIDE RECORDS SUMMARY | 2024-03-17 14:17 | External Medical Summary ---
Author Name Unknown Address Unknown Organization K01:[facility] [place] [facility] [place] [address] [facility] [address] Laboratory Report Ordering Provider Test Date Status CHRISTIANO BRADY 02/25/2024 05:50:00 Final Assay designed to measure th e effect of aspirin and it should not be used to detect other platelet functional disorders.

>=550 ARU - Aspirin not detected
< 550 ARU - Aspirin detected

Interfering substances/Test limitations: Do not test patients if on the following medications until platelet function has recovered (timeframe), as they may result in low ARU values; clopidogrel -5 days, ticlopidine- 5 days, prasugrel - 10 days, dipyridamole - 12 hours, cilostazol - 12 hours, Aggrenox (aspirin/dipyridamole) - 10 days, ibuprofen - 8 hours, naproxen - 24 hours, diclofenac - 24 hours, indocin - 24 hours, feldene - 50 hours, tirofiban - 2 days, eptifibatide - 2 days, abciximab - 2 week. Samples may also be affected by low hematocrit (<29%), high hematocrit (>56%), or low platelet counts (<92,000/cmm). Patients on ticagrelor or with inherited platelet disorders have not been studied using this assay and the ability of the assay to detect aspirin usage in these patients is unknown.
null Observation Date Value Abnormality Reference (Units ) Status Platelet aggregation arachidonate induced [Units/volume] in Platelet rich plasma 02/25/2024 05:50:00 454 Below low normal >=550 (ARU) Final Performing Location [facility] [place] [address] [facility] [address]
--- OUTSIDE RECORDS SUMMARY | 2024-03-17 14:17 | External Medical Summary ---
Author Name Unknown Address Unknown Organization K01:[facility] [place] [address] [facility] [address] Laboratory Report Ordering Provider Test Date Status CHRISTIANO BRADY 02/24/2024 09:09:00 Final Observation Date Value Abnormality Reference (Units ) Status HbA1C 02/24/2024 09:09:00 5.0 4.0-5.6 (% ) Final The use of HbA1c to monitor glycemic status is based on normal hemoglobin and HbA composition. This test should not be used in patients with abnormal hemoglobin that affects the half life of the red blood cell or the in vivo glycation rates. Glucose, estimated average 02/24/2024 09:09:00 97 <126 (mg/dL) Final Performing Location [facility] [address] [facility] [address]
--- OUTSIDE RECORDS SUMMARY | 2024-03-17 14:17 | External Medical Summary ---
Author Name Unknown Address Unknown Organization : Laboratory Report Ordering Provider Test Date Status BENTON MARTINEZ 02/25/2024 03:54:13 Final Observation Date Value Abnormality Reference (Units ) Status Glucose Point of Care 02/25/2024 03:54:13 110 70-120 (mg/dL) Final Performing Location
--- OUTSIDE RECORDS SUMMARY | 2024-03-17 14:17 | External Medical Summary ---
Author Name Unknown Address Unknown Organization K01:LAB[facility]ATORY [facility] [place] - [address] [facility] [address] Laboratory Report Ordering Provider Test Date Status MAGI BOBDEZ 02/22/2024 13:58:45 Final Observation Date Value Abnormality Reference (Units ) Status TSH 02/22/2024 13:58:45 4.16 0.27-4.20 (uIU/mL) Final Performing Location [facility] [address] [facility] [address]
--- OUTSIDE RECORDS SUMMARY | 2024-03-17 14:17 | External Medical Summary ---
Author Name Unknown Address Unknown Organization K01:LABORATORY [facility] - [address] [place] [address] Laboratory Report Ordering Provider Test Date Status HELENAMARILEE 02/24/2024 04:30:00 Final Observation Date Value Abnormality Reference (Units ) Status LDL, (direct) 02/24/2024 04:30:00 72 <=129 (mg/dL) Final LDL Cholesterol Reference Ra nges (mg/dL):
<70 Target level for high risk ASCVD patient
<100 Optimal for general population
100-129 Near optimal for general population
130-159 Borderline high
160-189 High
>=190 Very high Performing Location [facility] - [address] [place] [address]
--- OUTSIDE RECORDS SUMMARY | 2024-03-17 14:17 | External Medical Summary ---
Author Name Unknown Address Unknown Organization K01:[facility] - [address] [place] [address] Laboratory Report Ordering Provider Test Date Status MARI BOB 02/22/2024 13:58:45 Final Observation Date Value Abnormality Reference (Units ) Status CO2 02/22/2024 13:58:45 20 Below low normal 22- 32 (mmol/L) Final Performing Location [facility] - [address] [place] [address]
--- OUTSIDE RECORDS SUMMARY | 2024-03-17 14:17 | External Medical Summary ---
Author Name Unknown Address Unknown Organization K01:[facility]ORY [facility] [place] - [address] [place] [address] [place] [address] Laboratory Report Ordering Provider Test Date Status MARILEE MALIK 02/24/2024 13:20:59 Final Observation Date Value Abnormality Reference (Units ) Status Methicillin resistant Staphylococcus aureus (MRSA) DNA [Presence] in Nose by MATILDE with probe detection 02/24/2024 13:20:59 Negative Negative Final No Methicillin resistant Sta phylococcus aureus detected by PCR (amplified probe). Performing Location LAB[facility]ATORY [facility] [place] - [address] [place] [address]
--- OUTSIDE RECORDS SUMMARY | 2024-03-17 14:18 | External Medical Summary ---
Author Name Unknown Address Unknown Organization K01:[facility] - [address] [place] [address] Laboratory Report Ordering Provider Test Date Status MARI BOB 02/09/2024 14:20:58 Final Peritoneal Catheter exit sit e

Light growth normal ambreen Observation Date Value Abnormality Reference (Units ) Status Bacteria identified in Specimen by Culture 02/09/2024 14:20:58 [id number]^KLEBSIELL A PNEUMONIAE Abnormal Final Few Klebsiella pneumoniae Performing Location [facility] - [address] [facility] [address] [address] Ordering Provider Test Date Status MARI BOB 02/09/2024 14:20:58 Final Observation Date Value Abnormality Reference (Units) Status Ampicillin + Sulbactam 02/09/2024 14:20:58 4 Susceptible Final Cefepime susceptibility 02/09/2024 14:20:58 <=1 Susceptible Final Ceftriaxone suceptibility 02/09/2024 14:20:58 <=1 Susceptible Final Ciprofloxacin 02/09/2024 14:20:58 <=0.25 Susceptible Final Gentamicin susceptibility 02/09/2024 14:20:58 <=1 Susceptible Final Piperacillin + Tazobactamsusceptibility 02/09/2024 14:20:58 <=4 Susceptible Final TMP-SMZ susceptibility 02/09/2024 14:20:58 <=20 Susceptible Final Test: Culture, Wound, Superf icial, Aerobic
Specimen Source: Abdomen
Specimen Type: Superficial Wound
Specimen Date: 02/09/2024 1420
Result Date: 02/12/2024 1358
Result Status: Final result
Abnormal: Yes
Resulting Lab: [facility]
[address]
[place] [address]

CULTURE

Few Klebsiella pneumoniae (Abnormal)

Light growth normal ambreen

SUSCEPTIBILITY

Klebsiella
pneumoniae
METHOD MICROBROTH
DILUTIONS

AMPICILLIN/SULBACTAM 4 Susceptible
CEFEPIME <=1 Susceptible
CEFTRIAXONE <=1 Susceptible
CIPROFLOXACIN <=0.25 Susceptible
GENTAMICIN <=1 Susceptible
PIPERACILLIN TAZOBACTAM <=4 Susceptible
TRIMETH/SULFAMETHOXAZOLE <=20 Susceptible

null Performing Location LABORATORY [facility] [place] - [address] [place] [address]
--- OUTSIDE RECORDS SUMMARY | 2024-03-17 14:18 | External Medical Summary | Summary of Care ---
Author Name Unknown Organization [facility] Address [address] [place] [address] Phone [phone] Care Team Providers Care Installers Mechanical Name Role Phone Tomer Garner MD Primary Care Provider Encounter Details Date Type Department Care Team (Late st Contact Info) Description 02/08/2024 1:00 PM EDT Office Visit Home Dialysis [address] [facility] [address] [place] [address] Mdc, Peritoneal Dialysis [address] [place] [address] ESRD on peritoneal dialysis (HCC)* Allergies No known active allergiesdocumented as of this encounter (statuses as of 02/09/2024) Medications Medication Sig Dispensed Refills Start Date End Date Status Folic Acid 1 MG Oral Tablet Take 1 Tablet by mouth in the morning. 90 Tablet 1 12/01/2022 Active Additional Information Patient not taking.Reported on 11/03/2023 Febuxostat 80 MG Oral Tablet (Uloric)Indicati ons:Chronic gout without tophus, unspecified cause, unspecified site Take 1 Tablet by mouth in the morning. 90 Tablet 3 03/23/2023 Active Calcium Acetate (Phos Binder) 667 MG Oral Capsule (Phoslo) Take 3 Capsules by mouth with meals and snacks. 900 Capsule 3 07/18/2023 Active Docusate Sodium 100 MG Oral Capsule (Colace) Take 1 Capsule by mouth in the morning and 1 Capsule before bedtime. 08/21/2023 Active Additional Information Patient not taking.Reported on 12/26/2023 Gentamicin Sulfate 0.1 % External CreamIndications :ESRD on peritoneal dialysis ([facility]) Apply topically to affected area daily. Apply to PD exit catheter site daily after showering and cover with bandage 15 g 2 09/08/2023 Active Dialyvite Oral Tablet Take 1 Tablet by mouth in the morning. 30 Tablet 11 09/28/2023 Active Losartan Potassium 50 MG Oral Tablet (Cozaar) Take 1 Tablet by mouth in the morning. 30 Tablet 11 11/21/2023 Active Additional Information Patient not taking.Reported on 02/08/2024 Syringe 21G X 1" 3 ML Retacrit 13.000 U weekly. 12 Each 6 12/04/2023 Active Additional Information Patient not taking.Reported on 02/08/2024 BD Insulin Syringe 25G X 5/8" 1 ML (Insulin Syringe-Needle U-100)Indication s:ESRD on peritoneal dialysis ([facility]) Use to inject Retacrit weekly 12 Each 6 12/20/2023 Active Additional Information Patient not taking.Reported on 02/08/2024 Lovastatin 10 MG Oral TabletIndication s:Kidney replaced by transplant Take 1 Tablet by mouth in the morning. 90 Tablet 3 12/25/2023 Active cycloSPORINE Modified 25 MG Oral CapsuleIndicatio ns:Kidney replaced by transplant Take 2 capsules in the morning and 2 capsules in the evening 360 Capsule 3 12/25/2023 Active Auryxia 1 GM 210 MG(Fe) Oral Tablet (Ferric Citrate) Take 1 Tablet by mouth with meals and snacks. 120 Tablet 11 12/26/2023 Active Retacrit 77050 UNIT/ML Injection Solution (Epoetin melita-epbx ESRD)Indications :ESRD on peritoneal dialysis ([facility]) Inject 0.82 mL under the skin once a week. 5 mL 01/18/2024 03/01/20 24 Active Tuberculin-Aller gy Syringes 26G X 5/8" 1 MLIndications:ES RD on peritoneal dialysis ([facility]) Inject under the skin once a week for 4 doses. 5 Each 2 01/18/2024 02/09/20 24 Active Additional Information Patient not taking.Reported on 02/08/2024 BD Syringe Slip Tip 25G X 5/8" 1 ML (Tuberculin Syringe) Use to inject Retacrit weekly 12 Each 5 01/22/2024 Active Additional Information Patient not taking.Reported on 02/08/2024 Metoprolol Succinate ER 100 MG Oral Tablet Extended Release 24 Hour (toPROL XL) Take 0.5 Tablets by mouth in the morning. 12/23/2023 Active Cinacalcet HCl 60 MG Oral Tablet (Sensipar) Take 1 Tablet by mouth daily with dinner. 60 Tablet 11 02/08/2024 Active Cephalexin 250 MG Oral Capsule (Keflex) Take 1 Capsule by mouth in the morning and 1 Capsule before bedtime. Do all this for 7 days. Until gone.. 14 Capsule 02/09/2024 02/16/20 24 Active Cinacalcet HCl 30 MG Oral Tablet (Sensipar) Take 1 tablet by mouth in the morning. 90 Tablet 6 12/26/2023 02/08/20 24 Discontinued Cinacalcet HCl 60 MG Oral Tablet (Sensipar)Indica tions:ESRD on peritoneal dialysis (HCC) Take 1 Tablet by mouth daily with dinner. 30 Tablet 3 02/08/2024 02/08/20 24 Discontinued documented as of this encounter (statuses as of 02/09/2024) Active Problems Problem Noted Date Diagnosed Date Stenosis of other vascular p rosthetic devices, implants and grafts, initial encounter 11/03/2023 Dependence on renal dialysis 11/03/2023 Diastolic congestive heart failure 11/03/2023 Immunosuppression 11/03/2023 Hypertensive chronic kidney disease with stage 5 chronic kidney disease or end stage renal disease 11/03/2023 End stage renal disease 11/03/2023 Chronic gout without tophus 11/03/2023 Baldo's [...] of inactive term Kidney replaced by transplant Hypertension Dyslipidemia, goal LDL below 160 documented as of this encounter (statuses as of 02/09/2024) Resolved Problems Problem Noted Date Diagnosed Date [...] as of this encounter (statuses as of 02/09/2024) Immunizations Name Administration Dates Next Due COVID-19 mRNA, LNP-s, No Pre serve, 2-Dose Series (Moderna) 11/23/2020,10/18/2020 DTP Vaccine 1981,1981,1981 HEP B - Hepatitis B (Dialysis/Immumocomp Pt) 05/02/2023,04/04/2023 MMR - Measles/Mumps/Rubella Vaccine 05/11/1982 OPV - Polio Virus Vaccine (Oral) 1981,04/11 Pneumococcal Conjugate Vacci ne, 20-valent ([id number]) 11/17/2022 Pneumococcal Polysaccharide PPV23 (Pneumovax) 02/03/2004 Seasonal Influenza, PF, 6 M & above, IM , (FluLaval or Fluzone) 06/20/2023,06/24/2020 Seasonal Influenza, Quadriva lent Hd (Fluzone Hd) 06/24/2021 Seasonal Influenza, Split, I IV3, With Preserve, Inj 09/10/2012,08/11/2010,07/30/2007,07/19,06/26/2002 TDAP (age 10 and older)(Boostrix) 03/17/2020 TDAP, Age 7 and older, IM (Adacel) 01/02/2009 documented as of this encounter Social History Tobacco Use Types Packs/Day Years Used Date Smoking Tobacco: Never Passive Smoke Exposure: Never Smokeless Tobacco: Never Tobacco Cessation:Counseling Given: Not Answered Alcohol Use Standard Drinks/Week Comments No 0 [...] on file documented as of this encounter Last Filed Vital Signs Vital Sign Reading Time Taken Comments Blood Pressure 121/61 02/08/2024 12:56 PM EDT Pulse 83 02/08/2024 12:56 PM EDT Temperature 37 C (98.6 F) 02/08/2024 12:56 PM EDT Respiratory Rate 18 02/08/2024 12:56 PM EDT Oxygen Saturation 95% 02/08/2024 12:56 PM EDT Inhaled Oxygen Concentration - - Weight 134 kg (295 lb 6.4 oz) 02/08/2024 12:56 P M EDT Height - - Body Mass Index 42.29 01/31/2024 2:38 PM EDT documented in this encounter Functional Status Functional Status Response [...] No 11/01/2022 documented as of this encounter Progress Notes * Lisbeth Guerra MD - 02/09/2024 1:17 PM EDT Small yellow secretion around PD cath not seen during clinic but reported by patient. Effluent clear. No abd pain, no fevers. Will have patient come to clinic to obtain culture and I will send AB (Keflex) to pharmacy. Close monitoring and low threshold to go to ER, discussed with patient. Lisbeth Guerra MD * Cathy Wang, RDCristiane - 02/09/2024 11:31 AM EDT NUTRITION PERITONEAL DIALYSIS MONTHLY PROGRESS NOTE January 2024 Patient reports appetite is good. Initial appointment with Nutrition and Weight Management on 01/31/24 (RERE Constantino). He reports she recommended to avoid sugar drinks. Provider note from that appointment recommends portion control, focus on protein, 64 ounces water, snacks 100 kcal TID, avoid skipping meals, and increase exercise as tolerated. Also recommended return with dietitian, which is scheduled for 05/27/24. Pt wondering if he needs to keep that appointment, since he sees me as part of monthly PD appointments. Encouraged him to message Mary Gonzalez to ask, but noted that dietitian would have longer period of time to meet with him to only focus on weight management. Recommended if he doesn't keep appointment with that dietitian, he needs to schedule follow up with Mary Gonzalez. He notes he didn't think to ask about weight loss medication, but will in future. Will message provider sooner, if doesn't want to wait until next follow up. He reports that he continues to drink some sugar drinks, in order to use up his supply. He notes heis drinking more water as well. Encourage him to donate/give away sugar drinks. Also notes he likesto drink iced tea, but doesn't like taste of sugar substitutes in it. Discussed monk fruit as an option or making homemade iced tea with less sugar, if unable to avoid it altogether. Reviewed with him that calories he is receiving from PD ranges ~585-715 calories. Lab Results Component Value Date ALBUMIN - [facility] 4.2 01/17/2024 ALBUMIN - [facility] 4.4 12/18/2023 ALBUMIN - [facility] 4.2 11/23/2023 ALBUMIN - [facility] 4.1 11/14/2023 ALBUMIN - [facility] 4.1 11/14/2023 Albumin level is acceptable. Protein Goal/Timeline: not applicable goal achieved. Lab Results Component Value Date CO2 - [facility] 23 01/17/2024 CO2 - [facility] 20 (L) 12/18/2023 CO2 - [facility] 22 11/27/2023 CO2 - [facility] 20 (L) 11/23/2023 CO2 - [facility] 19 (L) 11/14/2023 CO2 - [facility] 19 (L) 11/14/2023 CO2 level is: acceptable. CO2 Goal/Timeline: not applicable goal achieved. Lab Results Component Value Date POTASSIUM - [facility] 3.8 01/17/2024 POTASSIUM - [facility] 4.0 12/18/2023 POTASSIUM - [facility] 3.4 (L) 11/27/2023 POTASSIUM - [facility] 3.1 (L) 11/23/2023 POTASSIUM - [facility] 4.1 11/14/2023 POTASSIUM - [facility] 4.1 11/14/2023 Potassium level is acceptable. Continue to encourage him to increase intake of fruits and vegetables, as potassium is at low end of range and he it would also help with weight management. Potassium Goal/Timeline: not applicable goal achieved. Estimated Dry Weight: 129 kg: stable over the past 2 months, after increasing 6.5 kg over the previous 3 months. Plan: See documentation above. Continue to monitor monthly weight. Mineral and Bone Disorder Management Lab Results Component Value Date ADJUSTED CALCIUM - [facility] 8.5 01/17/2024 ADJUSTED CALCIUM - [facility] 9.2 12/18/2023 ADJUSTED CALCIUM - [facility] 8.5 11/14/2023 Lab Results Component Value Date PHOSPHORUS - [facility] 10.6 (H) 01/31/2024 PHOSPHORUS - [facility] 12.5 (H) 01/17/2024 PHOSPHORUS - [facility] 12.2 (H) 12/18/2023 PHOSPHORUS - [facility] 8.8 (H) 11/23/2023 PHOSPHORUS - [facility] 13.6 (H) 11/14/2023 PHOSPHORUS - [facility] 13.6 (H) 11/14/2023 Lab Results Component Value Date PTH - [facility] 836 (H) 12/18/2023 PTH - [facility] 457 (H) 11/14/2023 Lab Results Component Value Date 25-HYDROXY VITAMIN D - [facility] 28 12/18/2023 Mineral and bone disorder labs: Adjusted calcium level is: acceptable (8.4 mg/dL- 10.2 mg/dL) Phosphorus level is: above target range Intact PTH level is: not tested this month 25-OH Vitamin D level is: not tested this month Mineral and Bone Disorder Plan: reviewed low phosphorus diet with patient and reviewed and encouraged patient's adherence to phosphate binder regimen as prescribed. Pt stopped calcium acetate when start Auryxia. Explained that he should have been taking both: Calcium acetate 3/meal, 2/snack, and Auryxia 1 gram/meal. Pt receptive to restarting calcium acetate. Sensipar increased to 60 mg daily this month per provider. Mineral and Bone Disorder Management Goal/Timeline: PTH and phosphorus to trend toward target rangeby next lab draw. Plan: Will monitor nutritional status monthly. Will adjust nutrition plan as needed. Cathy Wang RDN, CSOWM, [facility] Renal Dietitian 02/09/2024 11:31 AM * Lisbeth Guerra MD - 02/08/2024 1:46 PM EDT NEPHROLOGY CLINIC NOTE Home Dialysis [address] [place] [address] 02/08/2024, 1:46 PM Patient Name: Chandan Donato REASON FOR VISIT/ CHIEF COMPLAINT: No chief complaint on file. 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 Patient Active Problem List Diagnosis Granulomatosis with polyangiitis (HCC) Type IV renal tubular acidosis Bacterial pneumonia Encounter for long-term (current) use of medications Kidney replaced by transplant Hypertension ADVANCE DIRECTIVE INFORMATION Dyslipidemia, goal LDL below 160 Gouty arthropathy ULICES (acute kidney injury) ([facility]) Bandemia Metabolic acidosis Hypokalemia Body mass index (BMI) of 40.0 to 44.9 in adult (HCC) ESRD on peritoneal dialysis (HCC) Anemia of chronic renal failure, stage 5 (HCC) Anemia in chronic renal disease Dialysis-associated peritonitis (HCC) Shock (HCC) Hypovolemia Orthostatic hypotension Stenosis of other vascular prosthetic devices, implants and grafts, initial encounter ([facility]) 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) Diastolic congestive heart failure (HCC) Immunosuppression (HCC) Hypertensive chronic kidney disease with stage 5 chronic kidney disease or end stage renal disease (HCC) End stage renal disease (HCC) Chronic gout without tophus Baldo's granulomatosis with renal involvement (HCC) HPI/ running narrative: 43 year oldmale here for monthly peritoneal dialysis visit 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 Yes Icodextrin Volume (L): 2.5 Icodextrin Dwell Time (hrs): 10 Number Of Exchanges (per 24 hrs): 1 Tidal Volume (%): None Estimated Dry Weight (kg): 129 Fill pain:no Drain pain:no Difficulty with outflow:no Difficulty with inflow:no Difficulty with hygiene:no Peritonitis in last month :no Edema:no Shortness of breath:no Confusion:no Nausea/Vomiting:no Constipation:no Loss of appetitie:no Low protein intake:no Problem with affording medication:no Problem with taking medication:no Other problems with PD:no Current Outpatient Medications Medication Sig Dispense Refill Febuxostat 80 MG Oral Tablet (Uloric) Take 1 Tablet by mouth in the morning. 90 Tablet 3 Calcium Acetate (Phos Binder) 667 MG Oral Capsule (Phoslo) Take 3 Capsules by mouth with meals and snacks. 900 Capsule 3 Gentamicin Sulfate 0.1 % External Cream Apply topically to affected area daily. Apply to PD exit catheter site daily after showering and cover with bandage 15 g 2 Dialyvite Oral Tablet Take 1 Tablet by mouth in the morning. 30 Tablet 11 Lovastatin 10 MG Oral Tablet Take 1 Tablet by mouth in the morning. 90 Tablet 3 cycloSPORINE Modified 25 MG Oral Capsule Take 2 capsules in the morning and 2 capsules in the evening 360 Capsule 3 Auryxia 1 GM 210 MG(Fe) Oral Tablet (Ferric Citrate) Take 1 Tablet by mouth with meals and snacks. 120 Tablet 11 Retacrit 08434 UNIT/ML Injection Solution (Epoetin melita-epbx ESRD) Inject 0.82 mL under the skin once a week. 5 mL 0 Metoprolol Succinate ER 100 MG Oral Tablet Extended Release 24 Hour (toPROL XL) Take 0.5 Tablets bymouth in the morning. Folic Acid 1 MG Oral Tablet Take 1 Tablet by mouth in the morning. (Patient not taking: Reported on11/03/2023) 90 Tablet 1 Docusate Sodium 100 MG Oral Capsule (Colace) Take 1 Capsule by mouth in the morning and 1 Capsule before bedtime. (Patient not taking: Reported on 12/26/2023) Losartan Potassium 50 MG Oral Tablet (Cozaar) Take 1 Tablet by mouth in the morning. (Patient not taking: Reported on 02/08/2024) 30 Tablet 11 Syringe 21G X 1" 3 ML Retacrit 13.000 U weekly. (Patient not taking: Reported on 02/08/2024) 12 Each6 BD Insulin Syringe 25G X 5/8" 1 ML (Insulin Syringe-Needle U-100) Use to inject Retacrit weekly (Patient not taking: Reported on 02/08/2024) 12 Each 6 Tuberculin-Allergy Syringes 26G X 5/8" 1 ML Inject under the skin once a week for 4 doses. (Patientnot taking: Reported on 02/08/2024) 5 Each 2 BD Syringe Slip Tip 25G X 5/8" 1 ML (Tuberculin Syringe) Use to inject Retacrit weekly (Patient nottaking: Reported on 02/08/2024) 12 Each 5 No current facility-administered medications for this visit. Review of patient's allergies indicates: No Known Allergies PHYSICAL EXAMINATION: Filed Vitals: 02/08/24 1256 BP: 121/61 Pulse: 83 Resp: 18 Temp: 37 C (98.6 F) TempSrc: Tympanic SpO2: 95% Weight: 134 kg (295 lb 6.4 oz) 11/07/2023 11/23/2023 12/04/2023 12/22/2023 12/26/2023 BP AND WT. Weight 279 lb 15.8 oz 280 lb 13.9 oz 292 lb 4.8 oz 290 lb 4.8 oz PD catheter exit site: Clean, no erythema or drainage, no tenderness along catheter tunnel ASSESSMENT AND PLAN Adequacy: Last Kt/V 1,6, clinically meeting adequate parameters. Volume management: Appears euvolemic on exam, avg home weight Anemia management: Lab Results Component Value Date HGB 8.7 (L) 01/31/2024 HGB 9.9 (L) 10/29/2023 HGB 13.0 (L) 10/07/2020 HGB 7.8 (L) 12/27/1996 FERRITIN 729.8 12/16/1996 FERRITIN - [facility] 691 (H) 01/31/2024 FERRITIN - [facility] 51.7 08/11/2010 TRANSFERRIN SATURATION PERCENT - [facility] 25 01/31/2024 TRANSFERRIN SATURATION PERCENT - [facility] 33 08/11/2010 Mineral bone disorder: Lab Results Component Value Date/Time PTH 836 (H) 12/18/2023 02:37 PM PTH 361 (H) 12/07/2017 12:10 PM PTH 80.1 (H) 12/23/1996 08:08 AM CALCIUM 8.5 01/17/2024 12:17 PM PHOSPHORUS 10.6 (H) 01/31/2024 03:21 PM PHOSPHORUS 4.4 10/07/2020 02:34 PM Hypertension: Average home BP: 120/70 Transplant status: Active Last transplant committee decision: Remain Active Nutrition: Lab Results Component Value Date/Time POTASSIUM 3.8 01/17/2024 12:17 PM POTASSIUM 4.0 10/07/2020 02:34 PM POTASSIUM 5.3 (H) 12/27/1996 08:57 AM ALBUMIN 4.2 01/17/2024 12:17 PM ALBUMIN 4.6 10/07/2020 02:34 PM ALBUMIN 4.2 12/23/1996 08:08 AM Acid-base staus: Lab Results Component Value Date/Time CO2 23 01/17/2024 12:17 PM CO2 20 (L) 12/18/2023 02:37 PM CO2 25 10/07/2020 02:34 PM CO2 26 08/20/2020 02:38 PM CO2 24.4 12/27/1996 08:57 AM CO2 23.8 (L) 12/26/1996 09:15 AM We appreciate the opportunity of participating in Mr. Donato's care. Will continue to see in follow up in Peritoneal Dialysis clinic Start venofer aw per protocol For MBD: phoslo and Aryxia and increase sensipar to 60 mg daily. Sent to Specialty pharmacy This chart was completed in part utilizing [employer] Direct Speech Voice Recognition Software. Randomword insertions, pronoun errors, and incomplete sentences are an occasional consequence of this system due to software limitations, and ambient noise. Any questions or concerns about the content, text, or information contained within the body of this dictation should be directly addressed to the provider for clarification. Lisbeth Guerra MD * Karrie Russo TECH - 02/08/2024 1:33 PM EDT Patient was instructed to not get up on the exam table/exam chair until directed and assisted by their provider; patient is to remain seated in the chair/ wheelchair/ exam table/ exam chair for fall prevention and safety reasons. Patient is aware to have assistance to step down off exam table/exam chair with personnel. Patient voiced full comprehension of instructions. Also gave pt a schedule card for dates and times of monthly clinic visits and monthly lab draws. * Sophia Hernandez RN - 02/08/2024 1:08 PM EDT Peritoneal Dialysis IDT and Osteo review. Dr. Guerra employee communications intern , Nancy AMARO, Cathy Wang RDT, and Sophia Hernandez RN met to discuss labs and plan of care prior to pt appointment today Peritoneal dialysis monthly visit Labs and meds reviewed copy given to patient Reviewed patient's diet and he states that they understand dietary restrictions and related lab results: yes Is the Hepatitis B Vaccine due today? no Anemia Management Risks/ benefits of Epoetin therapy were addressed with the patient this month. Yes All questions were answered. Pt to be scheduled for IV Venofer hgb 8.7 New or recurrent malignancy? none reported Adjusted Procrit: no, not due to be adjusted Pain w/exchanges no Patient brought records from home yes Home record scanned into nursing notes? Yes , share source Blood pressure's at home 143/90 Verified Transfer Set connection and reviewed with patient: Yes Exit site clean, dry, and intact. No redness or drainage Signs and symptoms of exit site infection Dicussed, aware to watch for drainage, pain or redness and if any to call the unit. Reviewed exit site care, cleaning, anchoring of catheter, observing for signs or symptoms of infection, and use of dressing over site. Signs and symptoms of peritonitis dicussed. Aware to watch for cloudy fluid, if any, to call unit immediately. If having stomach pain and or fever, aware to do manual exchange checking for cloudy fluid. Diabetic Foot Check Pt not diabetic Routine, Qty-1 Number Of Cycles: 4 Total Treatment Time (hr): 10 Dextrose Concentration (g/100 mL): 2.5 Exchange Volume (L): Other (specify) Exchange Volume Comments: 2800 Last Fill : Yes Last Fill Dextrose Concentration (g/100 mL): 1.5 Dwell time (hrs): 4 Last Fill Volume (L): 2.5 Mid Day Exchange: Yes Mid Day Icodextrin ? Yes Icodextrin Volume (L): 2.5 Icodextrin Dwell Time (hrs): 10 Number Of Exchanges (per 24 hrs): 1 Tidal Volume (%): None Estimated Dry Weight (kg): 129 Dianeal used 2.5% and icodextran average nightly UF 3802 in 24 hours Last [facility] 11/23/23 Kt/V ideal body weight used 2.17 PT weight average 133.4 kg pt up 4 kg from dry weight. No signs of fluid overload. PT had weight management/nutrition consult. Dry weight will need adjusted. Transplant status active on list Reviewed process for ordering monthly dialysis supplies using the calendar provided: yes Reviewed contact phone numbers for the Peritoneal Dialysis supply company as well as the Dialysis clinic and the on-call nurse via the hospital hydropress operator: yes Questions PT had no questions or concerns at this time. PT reported slight drainage at PD exit site. None noted on exam. NO pain or tenderness at site. PT to report any additional drainage and sent secure image via Alma Johns. PT to have sensipar increase to 60 mg daily. Pt román for IV Venofer 1 dose 300 mg at [facility] 02/16/24. PT to continue ordered arixia WITH calcium acetate3 capsules with each meal. documented in this encounter Miscellaneous Notes * Addendum Note - Lisbeth Guerra MD - 02/09/2024 1:24 PM EDTAddended by: LISBETH GUERRA on: 02/09/2024 01:24 PM Modules accepted: Orders documented in this encounter Plan of Treatment Upcoming Encounters Date Type Department Care Team (Late st Contact Info) Description 02/10/2024 8:00 AM EDT Treatment Home Dialysis [address] [place] [id number] Nurse, Joturl Cristal [address] [place] [id number] 03/05/2024 1:00 PM EDT Office Visit Home Dialysis [address] [place] [id number] [facility] Peritoneal Dialysis [address] [place] [address] 03/11/2024 8:00 AM EDT Treatment Home Dialysis [address], [place] [address] Nurse, Joturl Cristal [address] [place] [id number] 03/28/2024 1:00 PM EDT Office Visit Home Dialysis [address] [place] [id number] [facility] [place] Peritoneal Dialysis [address] [place] [address] 04/11/2024 8:00 AM EDT Treatment Home Dialysis [address] [place] [id number] Nurse, Joturl Cristal [address] [place] [id number] 04/15/2024 1:00 PM EDT Hospital Encounter Radiology, [address] [address] 04/16/2024 11:00 AM EDT Office Visit Transplant Clinic, [address] [address] Gutierrez Monae MD [facility] [place] [place] [address] Win Julio MD [address] [place] [address] Nurse [facility] [address] [place] [address] Chana Robin LSW [facility] [place] [place] [address] 04/16/2024 2:50 PM EDT Laboratory Outpatient Laboratory, [address] [id number] [place], Lab [address] [facility] [address] [place], [place] [id number] 04/17/2024 1:00 PM EDT Appointment Radiology, [address] [id number] 04/29/2024 1:00 PM EDT Office Visit Home Dialysis Lance Fernández, [place] [address] [place], [place] [id number] [facility], Peritoneal Dialysis [address], [place] [id number] 05/27/2024 12:40 PM EDT Nutrition Services Nutrition & Weight Management, [address] [id number] Jaz Best RDN [address] [place] [address] [id number] Scheduled Orders Name Type Priority Associated Diagnoses Orde r Schedule PTH Lab Routine ESRD on peritoneal dialysis (HCC) Expected: 02/16/2024 (Approximate), Expires: 02/07/2025 Health Maintenance Due Date Last Done Comments COVID-19 Vaccine (3 - Moderna risk series) 12/21/2020 11/23/2020, 10/18/2020 Hepatitis B (3 of 4 - Risk Dialysis Recombivax 3-dose series) 10/05/2023 05/02/2023, 04/04/2023 Depression Screening 12/06/2024 12/07/2023 Lipid Panel 05/18/2026 05/18/2021, 12/0 09/2009, 11/11/2004, Additional history exists Diabetes Screening 11/26/2026 11/27/2023, 0 11/23/2023, 11/14/2023, Additional history exists DTaP,Tdap,and Td Vaccines (6 [...] Not on filedocumented as of this encounter Visit Diagnoses Diagnosis ESRD on peritoneal dialysis (HCC)- Primary End stage renal disease documented in this encounter Advance Directives * Full Code (Latest Code Status on File) Date Activated Date Inactivated Comments 10/28/2023 5:15 [...] Full Code Date Activated Date Inactivated Comments 10/31/2022 9:32 PM 11/01/2022 9:56 PM This order r eflects the patients wishes and were consensually agreed upon. Question Answer Comments Discussion of Advance Directives occurred with: Patient Care Teams Installers Mechanical Relationship Specialty Start Date End Date Tomer Garner MD [address] [place] [facility] [place] [address] PCP - General 09/19/02 documented as of this encounter
--- OUTSIDE RECORDS SUMMARY | 2024-03-17 14:18 | External Medical Summary | Summary of Care ---
Author Name Unknown Organization [facility] Address [address] [facility] [place] [address] Phone [phone] Care Team Providers Care Music Industry Intern Name Role Phone Tomer Garner MD Primary Care Provider [phone] Encounter Details Date Type Department Care Team (Late st Contact Info) Description 02/09/2024 2:30 PM EDT Nurse Only Home Dialysis [address] [place] [id number] Nurse, Lance Lopez [address] [phone] Allergies No known active allergiesdocumented as of this encounter (statuses as of 02/09/2024) Medications Medication Sig Dispensed Refills Start Date End Date Status Folic Acid 1 MG Oral Tablet Take 1 Tablet by mouth in the morning. 90 Tablet 1 12/01/2022 Active Additional Information Patient not taking.Reported on 11/03/2023 Febuxostat 80 MG Oral Tablet (Uloric)Indication s:Chronic gout without tophus, unspecified cause, unspecified site [...] on 12/26/2023 Gentamicin Sulfate 0.1 % External CreamIndications:E SRD on peritoneal dialysis ([facility]) Apply topically to affected area daily. Apply [...] 25G X 5/8" 1 ML (Insulin Syringe-Needle U-100)Indications: ESRD on peritoneal dialysis ([facility]) Use to inject Retacrit weekly 12 Each 6 12/20/2023 Active Additional Information Patient not taking.Reported on 02/08/2024 Lovastatin 10 MG Oral TabletIndications: Kidney replaced by transplant Take 1 Tablet by mouth in the morning. 90 Tablet 3 12/25/2023 Active cycloSPORINE Modified 25 MG Oral CapsuleIndications :Kidney replaced by transplant Take 2 capsules in the morning and 2 capsules in the evening 360 Capsule 3 12/25/2023 Active Auryxia 1 GM 210 MG(Fe) Oral Tablet (Ferric Citrate) Take 1 Tablet by mouth with meals and snacks. 120 Tablet 11 12/26/2023 Active Retacrit 35582 UNIT/ML Injection Solution (Epoetin melita-epbx ESRD)Indications:E SRD on peritoneal dialysis ([facility]) Inject 0.82 mL under the skin once a week. 5 mL 01/18/2024 03/01/2024 Active Tuberculin-Allergy Syringes 26G X 5/8" 1 MLIndications:ESRD on peritoneal dialysis ([facility]) Inject under the skin once a week for 4 doses. 5 Each 2 01/18/2024 02/09/2024 Active Additional Information Patient not taking.Reported on [...] 7 days. Until gone.. 14 Capsule 02/09/2024 02/16/2024 Active documented as of this encounter (statuses as [...] (Oral) 1980,04/11 Pneumococcal Conjugate Vacci ne, 20-valent ([id number]) 11/17/2022 Seasonal Influenza, PF, 6 M & [...] Sign Reading Time Taken Comments Blood Pressure 114/56 02/09/2024 2:06 PM EDT Pulse 98 02/09/2024 2:06 PM EDT Temperature 37.2 C (99 F) 02/09/2024 2:06 PM EDT Respiratory Rate 18 02/09/2024 2:06 PM EDT Oxygen Saturation 95% 02/09/2024 2:06 PM EDT Inhaled Oxygen Concentration - - Weight - - Height - - Body Mass Index - - documented in this encounter Functional Status Functional [...] as of this encounter Progress Notes * Alyssa Oneill RN - 02/09/2024 2:42 PM EDT Images from the original note were not included. Chandan arrived to the PD clinic for a culture of his PD exit site. Dr. 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 Reviewed the signs and symptoms of peritonitis. If he would have worsening erythema, fever, abdominal pain, or cloudy fluid he knows to go to the ER over the weekend. documented in this encounter Plan of Treatment Upcoming Encounters Date Type Department Care Team (Late st Contact Info) Description 02/10/2024 8:00 AM EDT Treatment Home Dialysis [address] [phone] Nurse, Lance Bee [address] [id number] 03/05/2024 1:00 PM EDT Office Visit Home Dialysis [address] [phone] [facility] [place] [address] [facility] [place] [id number] 03/11/2024 8:00 AM EDT Treatment Home Dialysis [address] [phone] Nurse, [address] [id number] 03/28/2024 1:00 PM EDT Office Visit Home Dialysis [address] [phone] [facility] [place] D[place] [address] [place] [address] 04/11/2024 8:00 AM EDT Treatment Home Dialysis Nathaniel Lucas [place] [address] [phone] Nurse, Lance Drive [address] [place], [place] [address] 04/15/2024 1:00 PM EDT Hospital Encounter Radiology, [place] [address] [place], [place] [phone] 04/16/2024 11:00 AM EDT Office Visit Transplant Clinic, [place] [address] [place], [place] [phone] Gutierrez Monae MD [address] [place] [address] Win Julio MD [address] [place], [place] Nurse Araceli Renal Transplant [address] [place] [address] Chana Robin LSW [address] [place] [address] 04/16/2024 2:50 PM EDT Laboratory Outpatient Laboratory, [place] [address] [place] [address] [place], Lab B1a [address] [place] [address] 04/17/2024 1:00 PM EDT Appointment Radiology, [place] [address] [place], [place] [phone] 04/29/2024 1:00 PM EDT Office Visit Home Dialysis [address] [phone] [facility], Peritoneal Dialysis [address] [place] [address] 05/27/2024 12:40 PM EDT Nutrition Services Nutrition & Weight Management, [place] [address] [place] [address] Jaz Best, RDN [address] [place] [address] Scheduled Orders Name Type Priority Associated Diagnoses Orde r Schedule CULTURE, WOUND, SUPERFICIAL, AEROBIC Lab Routine ESRD on peritoneal dialysis (HCC) Expected: 02/09/2024, Expires: 02/08/2025 Health Maintenance Due Date Last Done Comments [...] Advance Directives occurred with: Patient Care Teams Music Industry Intern Relationship Specialty Start Date End Date Tomer Garner MD [address] [place] [address] PCP - General 09/19/02 documented as of this encounter
--- OUTSIDE RECORDS SUMMARY | 2024-03-17 14:18 | External Medical Summary | Summary of Care ---
Author Name Unknown Organization [facility] Address [address] [facility] [place] [address] Phone [phone] Care Team Providers Care Geothermal Sheet Metal Worker Name Role Phone Tomer Garner MD Primary Care Provider [phone] Reason for Visit * Reason Onset Date Comments Other 02/12/2024 PD exit site [email or web address] Encounter Details Date Type Department Care Team ([facility] st Contact Info) Description 02/12/2024 Telephone Home Dialysis Hao Lucas [place] [address] [place] [address] Sophia Hernandez, RN Other (PD exit site check) Allergies No known active allergiesdocumented as of this encounter (statuses as of 02/12/2024) Medications Medication Sig Dispensed Refills Start Date [...] % External CreamIndications:E SRD on peritoneal dialysis ([facility]) Apply topically to affected area daily. Apply [...] (Insulin Syringe-Needle U-100)Indications: ESRD on peritoneal dialysis ([facility]) Use to inject Retacrit weekly 12 Each 12/20/2023 Active Additional Information Patient not taking.Reported [...] snacks. 120 Tablet 11 12/26/2023 Active Retacrit 28414 UNIT/ML Injection Solution (Epoetin melita-epbx ESRD)Indications:E SRD on peritoneal dialysis ([facility]) Inject 0.82 mL under the skin once a week. 5 mL 01/18/2024 03/01/2024 Active BD Syringe Slip Tip 25G X 5/8" 1 ML (Tuberculin Syringe) Use to inject Retacrit weekly 12 Each 01/22/2024 Active Additional Information Patient not taking.Reported [...] as of this encounter (statuses as of 02/12/2024) Active Problems Problem Noted Date Diagnosed Date [...] as of this encounter (statuses as of 02/12/2024) Resolved Problems Problem Noted Date Diagnosed Date [...] as of this encounter (statuses as of 02/12/2024) Immunizations Name Administration Dates Next Due COVID-19 mRNA, LNP-s, No Pre serve, 2-Dose Series (Moderna) 11/23/2020,10/18/2020 DTP Vaccine 1980,1981,1981 HEP B - Hepatitis B (Dialysis/[facility] Pt) 05/02/2023,04/04/2023 MMR - Measles/Mumps/Rubella Vaccine 05/11/1982 OPV - Polio Virus Vaccine (Oral) 1981,04/11 Pneumococcal Conjugate Vacci ne, 20-valent ([id number]) 11/17/2022 Seasonal Influenza, PF, 6 M & [...] encounter Miscellaneous Notes * Telephone Encounter - Sophia Hernandez RN - 02/12/2024 9:21 AM EDT PT was called by Sophia Hernandez Rn PD nurse to discuss exit site. PT reports having picked up his oral antibiotic Keflex BID and taking them starting on 02/09/24. Exit site, per patient, is less red and with no drainage this am. Exit site culture growing gram negative bacilli. PT reports no pain atexit site, or fevers. PT to observe color and clarity of PD fluid when patient drains CAPD exchangetoday and report to PD clinic immediately with any cloudiness to fluid. PT expresses verbal understanding to call CCPD clinic or go to ED with any increased abd pain, fevers, increased drainage from exit site, or inability to complete CCPD/ CAPD treatments. documented in this encounter Plan of Treatment Upcoming Encounters Date Type Department Care Team (Late st Contact Info) Description 03/05/2024 1:00 PM EDT Office Visit Home Dialysis [address] [place] [phone] [facility], Peritoneal Dialysis [address] [facility] [place], [place] [phone] 03/11/2024 8:00 AM EDT Treatment Home Dialysis [address] [place] [address] [phone] Nurse, [place] [address] 03/28/2024 1:00 PM EDT Office Visit Home Dialysis [address] [phone] [facility], Peritoneal Dialysis [address] [place] [facility] [address] 04/11/2024 8:00 AM EDT Treatment Home Dialysis [address] [place] [address] [phone] Nurse, Lance [employer] [address] 04/15/2024 1:00 PM EDT Hospital Encounter Radiology, [place] [address] [facility] [place] [phone] 04/16/2024 11:00 AM EDT Office Visit Transplant Clinic, [place] [address] [facility] [place] [place] [phone] Gutierrez Monae MD [address] [place], [place] [phone] Win Julio MD [address] [place] [address] Araceli Nurse Renal Transplant [address] [place] [address] Chana Robin, FIREMAN [address] [place] [address] 04/16/2024 2:50 PM EDT Laboratory Outpatient Laboratory, [place] [address] [place] [phone] [place], Lab B1a [address] [place], [place] [phone] 04/17/2024 1:00 PM EDT Appointment Radiology, [place] [address] [place], [place] [phone] 04/29/2024 1:00 PM EDT Office Visit Home Dialysis Lance Fernández, [place] [address] [place], [place] [phone] [facility], Peritoneal Dialysis [address] [place], [place] [phone] 05/27/2024 12:40 PM EDT Nutrition Services Nutrition & Weight Management, [place] [address] [place], [place] [phone] Jaz Best, ROLYN [address] [place], [place] [phone] Health Maintenance Due Date Last Done Comments [...] Advance Directives occurred with: Patient Care Teams Geothermal Sheet Metal Worker Relationship Specialty Start Date End Date Tomer Garner MD [address] [facility] [place] [address] PCP - General 09/19/02 documented as of this encounter
--- OUTSIDE RECORDS SUMMARY | 2024-03-17 14:18 | External Medical Summary | Summary of Care ---
Author Name Unknown Organization [facility] Address [address] [facility] [address] Phone [phone] Care Team Providers Care Glass Decorator Name Role Phone Tomer Garner MD Primary Care Provider [phone] Reason for Visit * Reason Onset Date Comments Appointment 02/09/2024 (Venofer x 1 d ose) Encounter Details Date Type Department Care Team ([facility] st Contact Info) Description 02/09/2024 Telephone Ancillary Hematology Oncology, [address] [place] [phone] Aleksandra, Nurse Lab Hem/Onc [facility], RN [address] [place] [address] [place] [address] Appointment ((Venofer x 1 dose)) Allergies No known active allergiesdocumented as of [...] % External CreamIndications:E SRD on peritoneal dialysis ([facility]) Apply topically to affected area [...] (Insulin Syringe-Needle U-100)Indications: ESRD on peritoneal dialysis ([facility]) Use to inject Retacrit weekly [...] snacks. 120 Tablet 11 12/26/2023 Active Retacrit 93179 UNIT/ML Injection Solution (Epoetin melita-epbx ESRD)Indications:E SRD on peritoneal dialysis ([facility]) Inject 0.82 mL under the skin once a week. 5 mL 01/18/2024 03/01/2024 Active Tuberculin-Allergy Syringes 26G X 5/8" 1 MLIndications:ESRD on peritoneal dialysis ([facility]) Inject under the skin once a week [...] with dinner. 60 Tablet 11 02/08/2024 Active documented as of this encounter (statuses [...] (Oral) 1980,04/11 Pneumococcal Conjugate Vacci ne, 20-valent ([id number]) 11/17/2022 Seasonal Influenza, PF, 6 M & [...] encounter Miscellaneous Notes * Telephone Encounter - Liliana Whitney OSA - 02/09/2024 8:48 AM EDT Lvm for patient to call to schedule the following (Venofer x 1 dose) documented in this encounter Plan of Treatment Upcoming Encounters Date Type Department Care Team (Late st Contact Info) Description 02/10/2024 8:00 AM EDT Treatment Home Dialysis [address] [place] [phone] Nurse, Lance Bee [place] [address] [phone] 03/05/2024 1:00 PM EDT Office Visit Home Dialysis [address] [place] [address] [phone] [facility], Peritoneal Dialysis [address] [place], [place] [phone] 03/11/2024 8:00 AM EDT Treatment Home Dialysis [address] [place] [id number] Nurse, [place] [address] [id number] 03/28/2024 1:00 PM EDT Office Visit Home Dialysis [address] [place] [address] [phone] [facility], Peritoneal Dialysis [address] [facility], [place] [phone] 04/11/2024 8:00 AM EDT Treatment Home Dialysis [address] [place] [address] Nurse, Lancebaltazar Bee [address] [phone] 04/15/2024 1:00 PM EDT Hospital Encounter Radiology, [place] [address] [place], [place] [phone] 04/16/2024 11:00 AM EDT Office Visit Transplant Clinic, [place] [address] [place], [place] [phone] Gutierrez Monae MD [address] [place] [address] Win Julio MD [address] [place] [address] Nurse Araceli Renal Transplant [address] [place] [address] Chana Robin LSW [address] [place] [address] 04/16/2024 2:50 PM EDT Laboratory Outpatient Laboratory, [place] [address] [place] [phone] [place], Lab B1a [address] [place], [place] [phone] 04/17/2024 1:00 PM EDT Appointment Radiology, [place] [address] [place], [place] [phone] 04/29/2024 1:00 PM EDT Office Visit Home Dialysis Lance Fernández, [place] [address] [place], [place] [phone] [facility], Peritoneal Dialysis [address] [place], [place] [phone] 05/27/2024 12:40 PM EDT Nutrition Services Nutrition & Weight Management, [place] [address] [place] [address] Jaz Best RDN [address] [place], [place] [phone] Health Maintenance Due Date Last Done Comments [...] Advance Directives occurred with: Patient Care Teams Glass Decorator Relationship Specialty Start Date End Date Tomer Garner MD [address] [facility] [place] [address] PCP - General 09/19/02 documented as of this encounter
--- OUTSIDE RECORDS SUMMARY | 2024-03-17 14:18 | External Medical Summary | Summary of Care ---
Author Name Unknown Organization [facility] Address [address] [place] [address] Phone [phone] Care Team Providers Care Machine Engineer Name Role Phone Tomer Garner MD Primary Care Provider [phone] Reason for Visit * Reason Comments Infusion Encounter Details Date Type Department Care Team (Latest Contact Info) Description 02/15/2024 2:30 PM EDT Hem/Onc Treatment Hematology Oncology [facility] [address] [place] [address] E, Infusion Chair [address] [place] [address] Anemia of chronic renal failure, stage 5 (HCC)*; ESRD on peritoneal dialysis (HCC) Allergies No known active allergiesdocumented as of this encounter (statuses as of 02/15/2024) Medications Medication Sig Dispensed Refills Start Date [...] % External CreamIndications:E SRD on peritoneal dialysis ([facility]) Apply topically to affected area daily. Apply [...] (Insulin Syringe-Needle U-100)Indications: ESRD on peritoneal dialysis ([facility]) Use to inject Retacrit weekly 12 Each [...] snacks. 120 Tablet 11 12/26/2023 Active Retacrit 38681 UNIT/ML Injection Solution (Epoetin melita-epbx ESRD)Indications:E SRD on peritoneal dialysis ([facility]ER[facility]) Inject 0.82 mL under the skin once [...] as of this encounter (statuses as of 02/15/2024) Active Problems Problem Noted Date Diagnosed Date [...] as of this encounter (statuses as of 02/15/2024) Resolved Problems Problem Noted Date Diagnosed Date [...] as of this encounter (statuses as of 02/15/2024) Immunizations Name Administration Dates Next Due COVID-19 mRNA, LNP-s, No Pre serve, 2-Dose Series (Moderna) 11/23/2020,10/18/2020 DTP Vaccine 1981,1981,1981 HEP B - Hepatitis B (Dialysis/Immumocomp Pt) 05/02/2023,04/04/2023 MMR - Measles/Mumps/Rubella Vaccine 05/11/1982 OPV - Polio Virus Vaccine (Oral) 1981,04/11 Pneumococcal Conjugate Vacci ne, 20-valent ([id number]) 11/17/2022 Seasonal Influenza, PF, 6 M & [...] Sign Reading Time Taken Comments Blood Pressure 117/60 02/15/2024 3:16 PM EDT Pulse 88 02/15/2024 3:16 PM EDT Temperature 37.1 C (98.7 F) 02/15/2024 3:16 PM ED T Respiratory Rate 16 02/15/2024 3:16 PM EDT Oxygen Saturation 91% 02/15/2024 3:16 PM EDT RA Inhaled Oxygen Concentration - - Weight 133.6 kg (294 lb 9.6 oz) 02/15/2024 3:16 PM EDT Height 178 cm (5' 10.08") 02/15/2024 3:16 PM EDT Body Mass Index 42.18 02/15/2024 3:16 PM EDT documented in this encounter Functional [...] No 11/01/2022 documented as of this encounter Nursing Notes * Terri Shen LPN - 02/15/2024 3:39 PM EDT Infusion Room Chair # 8 * Arnold Manuel MED ASSIST - 02/15/2024 3:20 PM EDT Chair 8 documented in this encounter Plan of Treatment Upcoming Encounters Date Type Department Care Team (Late st Contact Info) Description 03/05/2024 1:00 PM EDT Office Visit Home Dialysis [address] [phone] [facility], Peritoneal Dialysis [address] [place] [place] [address] 03/11/2024 8:00 AM EDT Treatment Home Dialysis Hamzah Lucas [address] [place] [address] 03/28/2024 1:00 PM EDT Office Visit Home Dialysis Hamzah Lucas [address] [place] [address] [facility], Peritoneal Dialysis [address] [place] [address] 04/11/2024 8:00 AM EDT Treatment Home Dialysis Hamzah [address] [place] [address] [place] [address] 04/15/2024 1:00 PM EDT Hospital Encounter Radiology, [place] [address] [place] [address] 04/16/2024 11:00 AM EDT Office Visit Transplant Clinic, [place] [address] [place], [place] [phone] Gutierrez Monae MD [address] [place] [address] Win Julio MD [address] [place], [place] Nurse [facility] [address] [place] [address] Chana Robin LSW [address] [place] [address] 04/16/2024 2:50 PM EDT Laboratory Outpatient Laboratory, [place] [address] [place] [id number] [place], Lab B1a [address] [place] [address] 04/17/2024 1:00 PM EDT Appointment Radiology, [place] [address] [place] [address] 04/29/2024 1:00 PM EDT Office Visit Home Dialysis Hamzah [address] [place] [address] [facility], Peritoneal Dialysis [address] [place] [address] 05/27/2024 12:40 PM EDT Nutrition Services Nutrition & Weight Management, [place] [address] [place] [address] Jaz Best RDN [address] [place], [place] Health Maintenance Due Date Last Done Comments COVID-19 Vaccine (3 - Moderna risk series) 12/21/2020 11/23/2020, 10/18/2020 Hepatitis B (3 of 4 - Risk Dialysis Recombivax 3-dose series) 10/05/2023 05/02/2023, 04/04/2023 Depression Screening 12/06/2024 12/07/2023 Lipid Panel 05/18/2026 05/18/2021, 12/09/2009, 11/11/2004, Additional history exists Diabetes Screening 11/26/2026 [...] as of this encounter Visit Diagnoses Diagnosis Anemia of chronic renal failure, stage 5 (HCC)- Primary ESRD on peritoneal dialysis (HCC) End stage renal disease documented in this encounter Administered Medications Active Administered Medications - up to 3 most recent administrations Medication Order MAR Action Action Date Dose Rate Site diphenhydrAMINE (Benadryl) inj 50 mg 50 mg, IV Push, ONCE PRN Other, Hypersensitivity Reaction, Starting on Marylu 02/15/24 at 1519, Until Mon02/16/24 at 1518, For 24 hours EPINEPHrine 1 MG/ML inj 0.3 mg 0.3 mg, Intramuscular, ONCE PRN Other, Hypersensitivity Reaction or Anaphylaxis, Starting on Marylu 02/15/24 at 1519, Until Mon02/16/24 at 1518, For 24 hours hEParin 100 UNIT/ML Lock Flush inj 500 Units 500 Units (5 mL), IV Lock, PRN Other, IV Flush, Starting on Marylu 02/15/24 at 1519, Until Mon02/16/24 at 1518, For 24 hours, Do not flush if lock, PICC, or central line not in place; IV infusing or unable to flush. Hydrocortisone Sod Suc (PF) (Solu-Cortef) inj 100 mg 100 mg, IV Push, ONCE PRN Other, Hypersensitivity Reaction, Starting on Mon02/15/24 at 1519, Until Mon02/16/24 at 1518, For 24 hours NSS infusion 500 mL, Intravenous, at 50 mL/hr, CONTINUOUS, Starting on Mon02/15/24 at 1630, Until Mon02/16/24 at 0229 Start Infusion 02/15/2024 3:36 PM EDT 500 mL 50 mL/hr oxygen GAS Inhalation, OXYGEN, First dose on Mon02/15/24 at 1600, Until Discontinued, Device/Managed by: Low Flow Device, Goal SPO2 (%): 91-95, Starting Device: Nasal Cannula, Initial Flow Rate (LPM): 2, Lowest Support: Nasal Cannula: Flow 0-6 LPM. Titrate up/down by 1 LPM., Higher Support: Non-Rebreather (NRB) Mask: Minimum of 10 LPM. Titrate to maintain bag inflation., Titration Interval: Q2 minutes and as needed., Notify Provider: For sudden DECREASE in resting SPO2 to less than 85% and when escalating delivery device., Wean patient off Oxygen when the oxygen saturation is greater than or equal to 93% sodium chloride 0.9 % flush central line 10 mL 10 mL, IV Push, PRN Other, IV Flush, Starting on Mon02/15/24 at 1519, Until Mon02/16/24 at 1518, For 24 hours, Do not flush if lock, PICC, or central line not in place; IV infusing or unable to flush. Given 02/15/2024 3:33 PM EDT 10 mL Inactive Administered Medications - up to 3 most recent administrations Medication Order MAR Action Action Date Dose Rate Site Iron Sucrose (Venofer) 300 mg in NSS 250 mL ivpb 300 mg, IV Piggyback, ONCE, 1 dose, On Marylu 02/15/24 at 1700, Administer over 90 Minutes Start Infusion 02/15/2024 3:37 PM EDT 300 mg 180 mL/hr documented in this encounter Advance Directives * [...] Advance Directives occurred with: Patient Care Teams Machine Engineer Relationship Specialty Start Date End Date Tomer Garner MD [address] [place] [address] PCP - General 09/19/02 documented as of this encounter
--- OUTSIDE RECORDS SUMMARY | 2024-03-17 14:18 | External Medical Summary | Summary of Care ---
Author Name Unknown Organization [facility] Address [address] [facility] [place] [address] Phone [phone] Care Team Providers Care Voice Writing Reporter Name Role Phone Tomer Garner MD Primary Care Provider [phone] Encounter Details Date Type Department Care Team (Late st Contact Info) Description 09/20/2023 10:00 AM EST Nurse Only Home Dialysis [facility] [address] [place] [address] Nurse, Lance Lopez [address] [place] [address] Allergies No known active allergiesdocumented as of this encounter (statuses as of 02/15/2024) Medications Medication Sig Dispensed Refills Start Date End Date Status Folic Acid 1 MG Oral Tablet Take 1 Tablet by mouth in the morning. 90 Tablet 1 3 Active Additional Information Patient not taking.Reported on 08/31/2023 Febuxostat 80 MG Oral Tablet (Uloric)Indicati ons:Chronic gout without tophus, unspecified cause, unspecified site Take 1 Tablet by mouth in the morning. 90 Tablet 3 3 Active Calcium Acetate (Phos Binder) 667 MG Oral Capsule (Phoslo) Take 3 Capsules by mouth with meals and snacks. 900 Capsule 3 3 Active Docusate Sodium 100 MG Oral Capsule (Colace) Take 1 Capsule by mouth in the morning and 1 Capsule before bedtime. 3 Active Gentamicin Sulfate 0.1 % External CreamIndications :ESRD on peritoneal dialysis (HCC) Apply topically to affected area daily. Apply to PD exit catheter site daily after showering and cover with bandage 15 g 2 3 Active Metoprolol Succinate ER 100 MG Oral Tablet Extended Release 24 Hour (Toprol XL) Take 1 Tablet (100 mg) by mouth in the morning. 120 Tablet 3 2 09/29/19 24 Discontinued Lovastatin 10 MG Oral TabletIndication s:Kidney replaced by transplant Take 1 Tablet by mouth in the morning. 90 Tablet 3 3 12/23/19 24 Discontinued(Ref ill) Mycophenolate Mofetil 500 MG Oral Tablet (CellCept) Take 1 Tablet by mouth in the morning and 1 Tablet before bedtime. 360 Tablet 1 3 10/31/19 24 Discontinued Losartan Potassium 25 MG Oral Tablet (Cozaar)Indicati ons:HTN, goal below 130/80 Take 1 Tablet by mouth in the morning. 90 Tablet 3 3 10/27/19 24 Discontinued cycloSPORINE Modified 25 MG Oral CapsuleIndicatio ns:Kidney replaced by transplant Take 2 capsules in the morning and 2 capsules in the evening 360 Capsule 3 3 12/23/19 24 Discontinued(Ref ill) Cinacalcet HCl 30 MG Oral Tablet (Sensipar) Take 1 Tablet by mouth in the morning. 90 Tablet 3 3 11/29/19 24 Discontinued(Ref ill) NIFEdipine ER 30 MG Oral Tablet Extended Release 24 Hour (Adalat CC) Take 1 Tablet by mouth in the morning. 60 Tablet 6 3 10/27/19 24 Discontinued oxyCODONE HCl 5 MG Oral Capsule (Oxy IR) Take 1 Capsule by mouth every 4 hours as needed for Pain, Severe. 12 Capsule 3 01/31/20 24 Discontinued([facility]) documented as of this encounter (statuses as of 02/15/2024) Active Problems Problem Noted Date Diagnosed Date Anemia in chronic renal disease 04/27/2023 Anemia [...] (Oral) 1981,04/11 Pneumococcal Conjugate Vacci ne, 20-valent ([id number]) 11/17/2022 Seasonal Influenza, PF, 6 M & [...] Date Recorded PHQ Adult Total Score 0 11/17/2022 Hunger Vital Sign Answer Date Recorded Within the past 12 months, y ou worried that your food would run out before you got the money to buy more. Never true 11/11/19 23 Within the past 12 months, t he food you bought just didn't last and you didn't have money to get more. Never true 11/10/2022 Sex and Gender Information Value Date Recorded Sex Assigned at Male 04/10/2023 3:09 PM EDT Gender Identity Male 04/10/2023 3:09 PM EDT Sexual Orientation Straight 04/10/2023 3: 09 PM EDT Job Start Date Occupation Industry Not on file Not on file Not on file documented as of this encounter Last Filed Vital Signs Vital Sign Reading Time Taken Comments Blood Pressure 144/78 09/20/2023 3:00 PM EST Pulse 78 09/20/2023 3:00 PM EST Temperature 36.8 C (98.2 F) 09/20/2023 3:00 PM ES T Respiratory Rate 20 09/20/2023 3:00 PM EST Oxygen Saturation 98% 09/20/2023 9:57 AM EST Inhaled Oxygen Concentration - - Weight 132.7 kg (292 lb 9.6 oz) 09/20/2023 9:57 AM EST Height - - Body Mass Index 41.98 08/21/2023 1:26 PM EST documented in this encounter Functional Status Functional [...] as of this encounter Progress Notes * Sophia Hernandez, RN - 09/20/2023 1:59 PM EST PT arrived for day #3 PD training. PT reported SOB, and "feeling winded" PT weight gain noted. PT educated per Dr. Lopez on following fluid restriction of 32 ounces daily while training for peritoneal dialysis to keep fluid balance. PT expressed verbal understanding. Patient PD training educatedprovided and documented in education tab. documented in this encounter Plan of Treatment Upcoming Encounters Date Type Department Care Team (Late st Contact Info) Description 03/05/2024 1:00 PM EDT Office Visit Home Dialysis Clau Lucas [address] [phone] [facility] Peritoneal Dialysis [address] [facility] [place] [address] 03/11/2024 8:00 AM EDT Treatment Home Dialysis Clau Lucas Dr [address] [phone] Nurse, Lance [address] [facility] [address] [place] [address] 03/28/2024 1:00 PM EDT Office Visit Home Dialysis [facility]iel [facility] [place] [address] [place], [place] [phone] [facility], Peritoneal Dialysis [address] [place] [address] 04/11/2024 8:00 AM EDT Treatment Home Dialysis Nathaniel Lucas [place] [address] [place], [place] [phone] Nurse, Lance Drive [address] [place], [place] 04/15/2024 1:00 PM EDT Hospital Encounter Radiology, [place] [address] [place] [address] 04/16/2024 11:00 AM EDT Office Visit Transplant Clinic, [place] [address] [place] [address] Gutierrez Monae MD [address] [place] [address] Win Julio MD [address] [place] [address] Nurse [facility] [address] [place] [address] Chana Robin LSW [address] [place] [address] 04/16/2024 2:50 PM EDT Laboratory Outpatient Laboratory, [address] [phone] [place], Lab B1a [address] [place] [address] 04/17/2024 1:00 PM EDT Appointment Radiology, [place] [address] [place] [address] 04/29/2024 1:00 PM EDT Office Visit Home Dialysis Clau [address] [place] [address] [facility], Peritoneal Dialysis [address] [place] [address] 05/27/2024 12:40 PM EDT Nutrition Services Nutrition & Weight Management, [place] [address] [place] [phone] Jaz Best, RDN [address] [place] [address] Scheduled Orders Name Type Priority Associated Diagnoses Orde r Schedule CCPD Procedures Routine ESRD on peritoneal dialysis (HCC) Ordered: 09/20/2023 Health Maintenance Due Date Last Done Comments [...] Procedure Name Priority Date/Time Associated Diagnosis Comments 25-HYDROXY VITAMIN D Routine 10/17/2023 12:42 PM EST ESRD on peritoneal dialysis (HCC) BASIC METABOLIC PANEL STAT 10/17/2023 12:42 PM EST ESRD on peritoneal dialysis (HCC) CBC STAT 10/17/2023 12:42 PM EST ESRD on peritoneal dialysis (HCC) FERRITIN Routine 10/17/2023 12:42 PM EST ESRD on peritoneal dialysis (HCC) ALBUMIN Routine 10/17/2023 12:42 PM EST ESRD on peritoneal dialysis (HCC) documented in this encounter Results * ALBUMIN (10/17/2023 12:42 PM EST) Albumin 4.6 3.8 - 5.0 g/dL 10/18/2023 12:20 AM EST [facility] Blood Venous blood specimen / Unknown Venipuncture / Unknown 10/17/2023 12:42 PM EST 10/17/2023 12:42 PM EST Akosua Lopez MD LAB BLOOD ORDER YAO Performing Organization Address City/State/[facility] Co de Phone Number [facility] [address] [place] [address] * 25-HYDROXY VITAMIN D (10/17/2023 12:42 PM EST) 25-Hydroxy Vitamin D 43 >19 ng/mL 10/18/2023 6:57 AM EST [facility] Blood Venous blood specimen / Unknown Venipuncture / Unknown 10/17/2023 12:42 PM EST 10/17/2023 12:42 PM EST Narrative [facility] - 10/18/2023 6:57 AM EST Deficient: <20 ng/mL Insufficient: 20-29 ng/mL Recommended/Optimum:30-50 ng/mL Vitamin D intoxication is rare. If suspicious of Vitamin D toxicity, evaluation of serum Calcium and PTH is recommended. Akosua Lopez MD LAB BLOOD ORDER YAO Performing Organization Address City/[facility]/ZIP Co de Phone Number [facility] [address] [place] [address] * (ABNORMAL) FERRITIN (10/17/2023 12:42 PM EST) Ferritin 1,119(H) 30 - 400 ng/mL 10/18/2023 6:57 AM EST [facility] Blood Venous blood specimen / Unknown Venipuncture / Unknown 10/17/2023 12:42 PM EST 10/17/2023 12:42 PM EST Akosua Lopez MD LAB BLOOD ORDER YAO Performing Organization Address [facility] Co de Phone Number [facility] [address] [place] [address] * (ABNORMAL) BASIC METABOLIC PANEL (10/17/2023 12:42 PM EST) BUN 92(H) 6 - 20 mg/dL 10/18/2023 12:20 AM EST [facility] Creatinine 29.8(H) 0.6 - 1.2 mg/dL 10/18/2023 12:20 AM EST [facility] Estimated Glomerular Filtration Rate 2(L) >=60 mL/min 10/18/2023 12:20 AM EST [facility] Comment:eGFR is calculated b ased on the CKD-EPI 2020 equation Sodium 145 135 - 146 mmol/L 10/18/2023 12:20 AM EST [facility] Potassium 4.0 3.5 - 5.1 mmol/L 10/18/2023 12:20 AM EST [facility] Chloride 95(L) 98 - 107 mmol/L 10/18/2023 12:20 AM EST [facility] CO2 18(L) 22 - 32 mmol/L 10/18/2023 12:20 AM EST [facility] Anion Gap 32(H) 7 - 15 mmol/L 10/18/2023 12:20 AM EST [facility] Glucose 119 70 - 120 mg/dL 10/18/2023 12:20 AM EST [facility] Calcium 8.8 8.4 - 10.2 mg/dL 10/18/2023 12:20 AM EST [facility] Blood Venous blood specimen / Unknown Venipuncture / Unknown 10/17/2023 12:42 PM EST 10/17/2023 12:42 PM EST Akosua Lopez MD LAB BLOOD ORDER YAO [facility] [address] [place] [address] * (ABNORMAL) CBC (10/17/2023 12:42 PM EST) WBC 8.20 4.00 - 10.80 K/uL 10/17/2023 8:28 PM EST [facility] RBC 3.53 4.50 - 5.25 M/uL 10/17/2023 8:28 PM EST [facility] HGB 10.7(L) 14.0 - 16.8 g/dL 10/17/2023 8:28 PM EST [facility] HCT 31.0(L) 40.0 - 48.4 % 10/17/2023 8:28 PM EST [facility] MCV 87.8 82.0 - 99.5 fL 10/17/2023 8:28 PM EST [facility] MCH 30.3 27.0 - 34.0 pg 10/17/2023 8:28 PM EST [facility] MCHC 34.5 32.0 - 36.0 g/dL 10/17/2023 8:28 PM EST [facility] RDW 12.6 11.5 - 15.5 % 10/17/2023 8:28 PM EST [facility] PLT 162 140 - 400 K/uL 10/17/2023 8:28 PM EST [facility] MPV 10.3 6.6 - 11.1 fL 10/17/2023 8:28 PM EST [facility] nRBCs 0 <=0 /100 WBCs 10/17/2023 8:28 PM EST [facility] Blood Venous blood specimen / Unknown Venipuncture / Unknown 10/17/2023 12:42 PM EST 10/17/2023 12:42 PM EST Akosua Lopez MD LAB BLOOD ORDER YAO [facility] [address] [place] [address] documented in this encounter Visit Diagnoses Diagnosis ESRD on [...] Advance Directives occurred with: Patient Care Teams Voice Writing Reporter Relationship Specialty Start Date End Date Tomer Garner MD [address] [place] [facility] [place] [address] PCP - General 09/19/02 documented as of this encounter
--- OUTSIDE RECORDS SUMMARY | 2024-03-17 14:18 | External Medical Summary | Summary of Care ---
Author Name Unknown Organization [facility] Address [address] [place] [address] Phone [phone] Care Team Providers Care Tube Laser Operator Name Role Phone Tomer Garner MD Primary Care Provider [phone] Encounter Details Date Type Department Care Team (Late st Contact Info) Description 02/09/2024 Orders Only Home Dialysis Lance [address] [place] [address] [place] [address] Akosua Lopez MD [address] [place] [address] Allergies No known active allergiesdocumented as of [...] External CreamIndications:E SRD on peritoneal dialysis ([facility]) Apply topically to affected area daily. [...] Syringe-Needle U-100)Indications: ESRD on peritoneal dialysis ([facility]) Use to inject Retacrit weekly 12 [...] snacks. 120 Tablet 11 12/26/2023 Active Retacrit 95726 UNIT/ML Injection Solution (Epoetin melita-epbx ESRD)Indications:E SRD on peritoneal dialysis ([facility]) Inject 0.82 mL under the skin once a week. 5 mL 01/18/2024 03/01/2024 Active Tuberculin-Allergy Syringes 26G X 5/8" 1 MLIndications:ESRD on peritoneal dialysis ([facility]) Inject under the skin once a [...] (Oral) 1981,04/11 Pneumococcal Conjugate Vacci ne, 20-valent ([id number]) 11/17/2022 Seasonal Influenza, PF, 6 M & [...] [address] [place] [address] Nurse, Lance Lopez [facility] [address] [place] [address] 03/05/2024 1:00 PM EDT Office Visit Home Dialysis Nathaniel Lucas [place] [address], [place] [address] [facility], Peritoneal Dialysis [address] [place] [address] 03/11/2024 8:00 AM EDT Treatment Home Dialysis Clau [address] Dr [address] [phone] Nurse, Lance Bee [address] 03/28/2024 1:00 PM EDT Office Visit Home Dialysis Clau Lucas Dr [address] [phone] [facility], Peritoneal Dialysis [address] [place] [address] 04/11/2024 8:00 AM EDT Treatment Home Dialysis Nathaniel Lucas [place] [address], [place] [phone] Nurse, [employer] [facility] [address] [place] [address] 04/15/2024 1:00 PM EDT Hospital Encounter Radiology, [place] [address] [place] [address] 04/16/2024 11:00 AM EDT Office Visit Transplant Clinic, [place] [address] [place], [place] [phone] Gutierrez Monae MD [address] [place] [address] Win Julio MD [address] [place], [place] Nurse [facility] [address] [place] [address] Chana Robin LSW [address] [place], [place] 04/16/2024 2:50 PM EDT Laboratory Outpatient Laboratory, [place] [address] [place] [address] [place], Lab B1a [address] [place], [place] [phone] 04/17/2024 1:00 PM EDT Appointment Radiology, [place] [address] [place], [place] [phone] 04/29/2024 1:00 PM EDT Office Visit Home Dialysis Lance Fernández, [place] [address] [place] [address] [facility], Peritoneal Dialysis [address] [place], [place] [phone] 05/27/2024 12:40 PM EDT Nutrition Services Nutrition & Weight Management, [place] [address] [place] [address] Jaz Best, RDN [address] [place], [place] [phone] Health Maintenance Due Date Last Done Comments [...] Advance Directives occurred with: Patient Care Teams Tube Laser Operator Relationship Specialty Start Date End Date Tomer Garner MD [address] [place] [address] PCP - General 09/19/02 documented as of this encounter
--- OUTSIDE RECORDS SUMMARY | 2024-03-17 14:18 | External Medical Summary | Summary of Care ---
Author Name Unknown Organization [facility] Address [address] [place] [address] Phone [phone] Care Team Providers Care Street Roller Engineer Name Role Phone Tomer Garner MD Primary Care Provider Reason for Visit * Reason Comments Advice Encounter Details Date Type Department Care Team (Late st Contact Info) Description 02/08/2024 Bumper Machine Operator Home Dialysis [address]iel [address] [place] [address] [place] [address] Nancy Tolbert, TERRAZZO LAYER Allergies No known active allergiesdocumented as of this encounter (statuses as of 02/08/2024) Medications Medication Sig Dispensed Refills Start Date [...] % External CreamIndications:E SRD on peritoneal dialysis (HCC) Apply topically to [...] Syringe-Needle U-100)Indications: ESRD on peritoneal dialysis ([facility]) Use to inject Retacrit weekly 12 Each [...] snacks. 120 Tablet 11 12/26/2023 Active Retacrit 79816 UNIT/ML Injection Solution (Epoetin melita-epbx ESRD)Indications:E SRD on peritoneal dialysis ([facility]) Inject 0.82 mL under the skin once a week. 5 mL 01/18/2024 03/01/2024 Active Tuberculin-Allergy Syringes 26G X 5/8" 1 MLIndications:ESRD on peritoneal dialysis ([facility]) Inject under the skin once a week [...] by mouth in the morning. 12/23/2023 Active documented as of this encounter (statuses as of 02/08/2024) Active Problems Problem Noted Date Diagnosed Date [...] as of this encounter (statuses as of 02/08/2024) Resolved Problems Problem Noted Date Diagnosed Date [...] as of this encounter (statuses as of 02/08/2024) Immunizations Name Administration Dates Next Due COVID-19 mRNA, LNP-s, No Pre serve, 2-Dose Series (Moderna) 11/23/2020,10/18/2020 DTP Vaccine 1981,1981,1981 HEP B - Hepatitis B (Dialysis/Immumocomp Pt) 05/02/2023,04/04/2023 MMR - Measles/Mumps/Rubella Vaccine 05/11/1982 OPV - Polio Virus Vaccine (Oral) 1981,04/11 Pneumococcal Conjugate Vacci ne, 20-valent ([id number]) 11/17/2022 Seasonal Influenza, PF, 6 M & [...] as of this encounter Progress Notes * Nancy Tolbert, KADEN - 02/08/2024 6:52 AM EDT SOCIAL WORK: Monthly Peritoneal Dialysis Clinic Note Gender: male Age: [age] year old Mental Health Changes: None reported. Comments: Patient presents to his clinic appointment at his baseline. Pleasant and easily engages with com writer and staff. No concerns or changes to mental health noted. Activities of Daily Living Changes: None reported. Comments: Patient continues to reside independently at home. Patient currently resides in his camper at a campsite and will through the fall. Support System Changes: None reported. Comments: Patient continues to have an intact support system. Buffet Runner will continue to follow and will remain available to address psychosocail issues as needed in the clinic setting. KADEN Delaney Outpatient Hand Riveter documented in this encounter Plan of Treatment Upcoming Encounters Date Type Department Care Team (Late st Contact Info) Description 02/10/2024 8:00 AM EDT Treatment Home Dialysis [address], [place], [place] [phone] Nurse, Lance Bee [address] [id number] 03/05/2024 1:00 PM EDT Office Visit Home Dialysis [address] [id number] Mdc, Peritoneal Dialysis [address] [place] [address] 03/11/2024 8:00 AM EDT Treatment Home Dialysis Clau [address] [id number] Nurse, Lance Bee [address] [place] [address] 03/28/2024 1:00 PM EDT Office Visit Home Dialysis Cl[address] [phone] Mdc, [facility] [address] [facility] [place] [address] 04/11/2024 8:00 AM EDT Treatment Home Dialysis Clau [address] [id number] Nurse, Lance Bee [address] [place] [address] 04/15/2024 1:00 PM EDT Hospital Encounter [facility]iology, [place] [address] [facility] [place] [id number] 04/16/2024 11:00 AM EDT Office Visit Transplant Clinic, [place] [address] [place], [place] [phone] Gutierrez Monae MD [address] [place], [place] [address] Win Julio MD [address] [place] [address] Nurse Araceli Renal Transplant [address] [place], [place] [phone] Chana Robin, TERRAZZO LAYER [address] [place], [place] [phone] 04/16/2024 2:50 PM EDT Laboratory Outpatient Laboratory, [place] [address] [place] [id number] Stephan, Lab B1a [address] [place], [place] [phone] 04/17/2024 1:00 PM EDT Appointment Radiology, [place] [address] [place], [place] [phone] 04/29/2024 1:00 PM EDT Office Visit Home Dialysis Lance Fernández, [place] [address] [address] [place], [place] [phone] Mdc, Peritoneal Dialysis [address] [place], [place] [phone] 05/27/2024 12:40 PM EDT Nutrition Services Nutrition & Weight Management, [place] [address] [place], [place] [phone] Jaz Best RDN [address] [place], [place] [phone] Health Maintenance Due Date Last Done Comments [...] Advance Directives occurred with: Patient Care Teams Street Roller Engineer Relationship Specialty Start Date End Date Tomer Garner MD [address] [facility] [place] [address] PCP - General 09/19/02 documented as of this encounter
--- OUTSIDE RECORDS SUMMARY | 2024-03-17 14:18 | External Medical Summary | Summary of Care ---
Author Name Unknown Organization [facility] Address [address] [place] [address] Phone [phone] Care Team Providers Care Health And Safety Manager Name Role Phone Tomer Garner MD Primary Care Provider [phone] Reason for Visit * Reason Onset Date Comments Appointment 02/08/2024 Venofer x 1 dose Encounter Details Date Type Department Care Team ([facility] st Contact Info) Description 02/08/2024 Telephone Hematology Oncology [facility] [address] [place] [address] Akosua Lopez MD [address] [place] [address] Appointment (Venofer x 1 dose) Allergies No known active allergiesdocumented as of this encounter (statuses as of 02/13/2024) Medications Medication Sig Dispensed Refills Start Date [...] % External CreamIndications:E SRD on peritoneal dialysis ([facility]) Apply topically to affected area daily. Apply [...] (Insulin Syringe-Needle U-100)Indications: ESRD on peritoneal dialysis ([facility]) Use to inject Retacrit weekly 12 Each [...] snacks. 120 Tablet 11 12/26/2023 Active Retacrit 56556 UNIT/ML Injection Solution (Epoetin melita-epbx ESRD)Indications:E SRD on peritoneal dialysis ([facility]) Inject 0.82 mL under the skin once [...] as of this encounter (statuses as of 02/13/2024) Active Problems Problem Noted Date Diagnosed Date [...] as of this encounter (statuses as of 02/13/2024) Resolved Problems Problem Noted Date Diagnosed Date [...] as of this encounter (statuses as of 02/13/2024) Immunizations Name Administration Dates Next Due COVID-19 mRNA, LNP-s, No Pre serve, 2-Dose Series (Moderna) 11/23/2020,10/18/2020 DTP Vaccine 1981,1981,1981 HEP B - Hepatitis B (Dialysis/Immumocomp Pt) 05/02/2023,04/04/2023 MMR - Measles/Mumps/Rubella Vaccine 05/11/1982 OPV - Polio Virus Vaccine (Oral) 1981,04/11 Pneumococcal Conjugate Vacci ne, 20-valent ([id number]) 11/17/2022 Seasonal Influenza, PF, 6 M & [...] encounter Miscellaneous Notes * Telephone Encounter - Jacquie Hardy RN - 02/08/2024 3:50 PM EDT Received orders for Chandan for venofer x 1 dose. Auth not needed and OOP should be minimal. Patient ready to be scheduled. Thank you for reaching out to schedule. Jacquie Hardy TITLE I PARAPROFESSIONAL [facility] [phone] documented in this encounter Plan of Treatment Upcoming Encounters Date Type Department Care Team (Emmy alexandra Contact Info) Description 02/15/2024 2:30 PM EDT Hem/Onc Treatment Hematology Oncology [facility], [place] [address], [place] [phone] E, Infusion Chair [address], [place] [phone] 03/05/2024 1:00 PM EDT Office Visit Home Dialysis [address] [phone] Mdc, Peritoneal Dialysis [address] [place] [address] 03/11/2024 8:00 AM EDT Treatment Home Dialysis Clau [address] [phone] Nurse, [employer] [address] [id number] 03/28/2024 1:00 PM EDT Office Visit Home Dialysis Clau [address] [phone] Mdc, Peritoneal Dialysis [address] [place] [address] 04/11/2024 8:00 AM EDT Treatment Home Dialysis Clau [address] [id number] Nurse, [employer] [address] [id number] 04/15/2024 1:00 PM EDT Hospital Encounter Radiology, [place] [address] [place], [place] [phone] 04/16/2024 11:00 AM EDT Office Visit Transplant Clinic, [place] [address] [place] [address] Gutierrez Monae MD [address], [place] [phone] Win Julio MD [address] [place] [address] Araceli, Nurse Renal Transplant [address] [place] [address] Chana Robin, PROCESS CHECKER [address] [place] [address] 04/16/2024 2:50 PM EDT Laboratory Outpatient Laboratory, [place] [address] [place] [address] [place], Lab B1a [address] [place] [address] 04/17/2024 1:00 PM EDT Appointment Radiology, [place] [address] [place] [address] 04/29/2024 1:00 PM EDT Office Visit Home Dialysis Lance Fern[address], [place] [address] [address] [place] [address] Mdc, Peritoneal Dialysis [address] [place] [address] 05/27/2024 12:40 PM EDT Nutrition Services Nutrition & Weight Management, [place] [address] [place], [place] [phone] Jaz Best, RDN [address] [place], [place] [phone] Health Maintenance Due Date Last Done Comments [...] Advance Directives occurred with: Patient Care Teams Health And Safety Manager Relationship Specialty Start Date End Date Tomer Garner MD [address] [place] [address] PCP - General 09/19/02 documented as of this encounter
--- OUTSIDE RECORDS SUMMARY | 2024-03-17 14:18 | External Medical Summary | Summary of Care ---
Author Name Unknown Organization [facility] Address [address] [place] [address] Phone [phone] Care Team Providers Care Band Sawing Machine Operator Name Role Phone Tomer Garner MD Primary Care Provider Encounter Details Date Type Department Care Team (Late st Contact Info) Description 02/08/2024 1:00 PM EDT Office Visit Home Dialysis [address] [place] [address] [place] [address] Mdc, Peritoneal Dialysis [address] [place] [address] ESRD on peritoneal dialysis (HCC)* [...] % External CreamIndications :ESRD on peritoneal dialysis ([facility]) Apply topically to affected area daily. [...] (Insulin Syringe-Needle U-100)Indication s:ESRD on peritoneal dialysis ([facility]) Use to inject Retacrit weekly 12 [...] snacks. 120 Tablet 11 12/26/2023 Active Retacrit 45524 UNIT/ML Injection Solution (Epoetin melita-epbx ESRD)Indications :ESRD on peritoneal dialysis ([facility]) Inject 0.82 mL under the skin once a week. 5 mL 01/18/2024 03/01/20 24 Active Tuberculin-Aller gy Syringes 26G X 5/8" 1 MLIndications:ES RD on peritoneal dialysis ([facility]) Inject under the skin once a [...] with dinner. 60 Tablet 11 02/08/2024 Active Cinacalcet HCl 30 MG Oral Tablet [...] (Oral) 1981,04/11 Pneumococcal Conjugate Vacci ne, 20-valent ([id number]) 11/17/2022 Seasonal Influenza, PF, 6 M & [...] as of this encounter Progress Notes * Akosua Lopez MD - 02/08/2024 1:46 PM EDT NEPHROLOGY CLINIC NOTE Home Dialysis [address] [place] [address] 02/08/2024, 1:46 PM Patient Name: Chandan Donato [...] 160 Gouty arthropathy ULICES (acute kidney injury) (HCC) Bandemia Metabolic acidosis Hypokalemia Body mass index (BMI) of 40.0 to 44.9 in adult (HCC) ESRD on peritoneal dialysis (HCC) Anemia of chronic renal failure, stage 5 (HCC) Anemia in chronic renal disease Dialysis-associated peritonitis (HCC) Shock (HCC) Hypovolemia Orthostatic hypotension Stenosis of other vascular prosthetic devices, implants and grafts, initial encounter (HCC) 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) Diastolic congestive [...] meals and snacks. 120 Tablet 11 Retacrit 47161 UNIT/ML Injection Solution (Epoetin melita-epbx ESRD) Inject [...] This chart was completed in part utilizing [employer] Speech Voice Recognition Software. Randomword insertions, pronoun errors, and incomplete sentences are an occasional consequence of this system due to software limitations, and ambient noise. Any questions or concerns about the content, text, or information contained within the body of this dictation should be directly addressed to the provider for clarification. Akosua Lopez MD * Karrie Russo TECH - 02/08/2024 [...] Peritoneal Dialysis IDT and Osteo review. Dr. Lopez teacher [employer] , Nancy AMARO, Cathy Wang RDT, and [...] and the on-call nurse via the hospital rail car operator: yes Questions PT had no questions or concerns at this time. PT reported slight drainage at PD exit site. None noted on exam. NO pain or tenderness at site. PT to report any additional drainage and sent secure image via my [employer]. PT to have sensipar increase to 60 mg daily. Pt román for IV Venofer 1 dose 300 mg at [facility] 02/16/24. PT to continue ordered arixia WITH calcium acetate3 capsules with each meal. documented in this encounter Plan of Treatment Upcoming Encounters Date Type Department Care Team (Late st Contact Info) Description 02/10/2024 8:00 AM EDT Treatment Home Dialysis [address], [place], [place] [phone] Nurse, N[place] [address] [id number] 03/05/2024 1:00 PM EDT Office Visit Home Dialysis [address], [place] [address] [facility], Peritoneal Dialysis [address] [facility] [place] [address] 03/11/2024 8:00 AM EDT Treatment Home Dialysis [address], [place] [address] Nurse, [place] [address] [address] 03/28/2024 1:00 PM EDT Office Visit Home Dialysis [address], [place] [address] [facility], Peritoneal Dialysis [address] [place] [address] 04/11/2024 8:00 AM EDT Treatment Home Dialysis [address], [place], [place] [phone] Nurse, N[place] [address] [address] 04/15/2024 1:00 PM EDT Hospital Encounter Radiology, [place] [address] [place] [address] 04/16/2024 11:00 AM EDT Office Visit Transplant Clinic, [address] [address] Gutierrez Monae MD [address] [place] [address] Win Julio MD [address] [place] [address] Nurse Araceli Renal Transplant [address] [place], [place] [phone] Chana Robin LSW [address] [place] [address] 04/16/2024 2:50 PM EDT Laboratory Outpatient Laboratory, [address] [address] [place], Lab B1a [address] [place], [place] [address] 04/17/2024 1:00 PM EDT Appointment Radiology, [address] [address] 04/29/2024 1:00 PM EDT Office Visit Home Dialysis [address]iel [address] [place] [address] [place], [place] [phone] Mdc, Peritoneal Dialysis [address] [place], [place] [address] 05/27/2024 12:40 PM EDT Nutrition Services Nutrition & Weight Management, [address] [phone] Jaz Best RDN [facility] [address] [place], [place] [phone] Scheduled Orders Name Type Priority Associated Diagnoses [...] Advance Directives occurred with: Patient Care Teams Band Sawing Machine Operator Relationship Specialty Start Date End Date Tomer Garner MD [address] [place] [address] PCP - General 09/19/02 documented as of this encounter
--- OUTSIDE RECORDS SUMMARY | 2024-03-17 14:18 | External Medical Summary | Summary of Care ---
Author Name Unknown Organization [facility] Address [address] [place] [address] Phone [phone] Care Team Providers Care Arts And Humanities Council Director Name Role Phone Tomer Garner MD Primary Care Provider Encounter Details Date Type Department Care Team (Late st Contact Info) Description 02/08/2024 1:00 PM EDT Office Visit Home Dialysis Lance Fern[address] [place] [address] [place] [address] Mdc, Peritoneal Dialysis [address] [place] [address] ESRD on peritoneal dialysis (HCC)* [...] % External CreamIndications :ESRD on peritoneal dialysis ([facility]) Apply topically to affected area [...] (Insulin Syringe-Needle U-100)Indication s:ESRD on peritoneal dialysis ([facility]) Use to inject Retacrit weekly [...] snacks. 120 Tablet 11 12/26/2023 Active Retacrit 00331 UNIT/ML Injection Solution (Epoetin melita-epbx ESRD)Indications :ESRD on peritoneal dialysis ([facility]) Inject 0.82 mL under the skin once a week. 5 mL 01/18/2024 03/01/20 24 Active Tuberculin-Aller gy Syringes 26G X 5/8" 1 MLIndications:ES RD on peritoneal dialysis ([facility]) Inject under the skin once [...] (Oral) 1981,04/11 Pneumococcal Conjugate Vacci ne, 20-valent ([id number]) 11/17/2022 Pneumococcal Polysaccharide PPV23 (Pneumovax) 02/03/2004 Seasonal [...] as of this encounter Progress Notes * WangCathy, RDN - 02/09/2024 11:31 AM EDT NUTRITION PERITONEAL [...] plan as needed. Cathy Wang RDN, CSOWM, LDN Renal Dietitian 02/09/2024 11:31 AM * Akosua Lopez MD - 02/08/2024 1:46 PM EDT NEPHROLOGY CLINIC NOTE Home Dialysis [address] [place] [address] 02/08/2024, 1:46 PM Patient Name: Chandan Donato [...] 160 Gouty arthropathy ULICES (acute kidney injury) ([facility]) Bandemia Metabolic acidosis Hypokalemia Body mass index (BMI) of 40.0 to 44.9 in adult (HCC) ESRD on peritoneal dialysis (HCC) Anemia of chronic renal failure, stage 5 ([facility]) Anemia in chronic renal disease Dialysis-associated peritonitis (HCC) Shock (HCC) Hypovolemia Orthostatic hypotension Stenosis of other vascular prosthetic devices, implants and grafts, initial encounter ([facility]) 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) Diastolic congestive heart failure (HCC) Immunosuppression (HCC) Hypertensive chronic kidney disease with stage 5 chronic kidney disease or end stage renal disease (HCC) End stage renal disease (HCC) Chronic gout without tophus Baldo's granulomatosis with renal involvement ([facility]) HPI/ running narrative: 43 year oldmale here [...] meals and snacks. 120 Tablet 11 Retacrit 82575 UNIT/ML Injection Solution (Epoetin melita-epbx ESRD) Inject [...] follow up in Peritoneal Dialysis clinic Start herbert aw per protocol For MBD: phoslo and Aryxia and increase sensipar to 60 mg daily. Sent to Specialty pharmacy This chart was completed in part utilizing [employer] Speech Voice Recognition Software. Randomword insertions, pronoun [...] visits and monthly lab draws. * Sophia Hernandez, RN - 02/08/2024 1:08 PM EDT Peritoneal Dialysis IDT and Osteo review. Dr. Lopez spot sprayer , Nancy AMARO, Cathy Wang RDT, and [...] and the on-call nurse via the hospital as400 operator: yes Questions PT had no questions or concerns at this time. PT reported slight drainage at PD exit site. None noted on exam. NO pain or tenderness at site. PT to report any additional drainage and sent secure image via [employer]. PT to have sensipar increase to 60 mg daily. Pt román for IV Venofer 1 dose 300 mg at [facility] 02/16/24. PT to continue ordered arixia WITH calcium acetate3 capsules with each meal. documented in this encounter Plan of Treatment Upcoming Encounters Date Type Department Care Team (Late st Contact Info) Description 02/10/2024 8:00 AM EDT Treatment Home Dialysis [address] [place] [address] Nurse, Lance Lopez [address] [address] [address] 03/05/2024 1:00 PM EDT Office Visit Home Dialysis Clau [address] [phone] [facility], Peritoneal Dialysis [address] [facility] [place] [address] 03/11/2024 8:00 AM EDT Treatment Home Dialysis [address]iel [address] [place] [address] [place], [place] [address] Nurse, [address] [employer] [address] [place] [address] 03/28/2024 1:00 PM EDT Office Visit Home Dialysis [address] [place] [address] [place] [address] Mdc, Peritoneal Dialysis [address] [place] [address] 04/11/2024 8:00 AM EDT Treatment Home Dialysis [place] [place] [address] [phone] Nurse, Lance LumeJet Cristal [address] 04/15/2024 1:00 PM EDT Hospital Encounter Radiology, [place] [address] [place] [address] 04/16/2024 11:00 AM EDT Office Visit Transplant Clinic, [place] [address] [place] [address] Gutierrez Monae MD [address] [place] [address] Win Julio MD [address] [place] [address] Nurse Araceli Renal Transplant [address] [place] [address] Chana Robin LSW [address] [place] [address] 04/16/2024 2:50 PM EDT Laboratory Outpatient Laboratory, [place] [address] [place] [address] [place], Lab B1a [address] [place] [address] 04/17/2024 1:00 PM EDT Appointment Radiology, [place] [address] [place] [address] 04/29/2024 1:00 PM EDT Office Visit Home Dialysis Lance Fernández, [place] [address] [place] [address] Mdc, Peritoneal Dialysis [address] [place] [address] 05/27/2024 12:40 PM EDT Nutrition Services Nutrition & Weight Management, [place] [address] [place] [phone] Nasir Jaz Alstone, RDN [address] [place], [place] [phone] Scheduled Orders Name Type Priority Associated Diagnoses [...] Advance Directives occurred with: Patient Care Teams Arts And Humanities Council Director Relationship Specialty Start Date End Date Tomer Garner MD [address] [facility] [place] [address] PCP - General 09/19/02 documented as of this encounter
--- OUTSIDE RECORDS SUMMARY | 2024-03-17 14:18 | External Medical Summary | Summary of Care ---
Author Name Unknown Organization [facility] Address [address] [place] [address] Phone [phone] Care Team Providers Care Mds Coordinator Name Role Phone Tomer Garner MD Primary Care Provider Reason for Visit * Reason Onset Date Comments Advice 02/06/2024 Encounter Details Date Type Department Care Team ([facility] st Contact Info) Description 02/06/2024 Telephone Home Dialysis [address] [place] [address] [place] [address] Akosua Lopez MD [address] [place] [address] Advice Allergies No known active allergiesdocumented as of this encounter (statuses as of 02/06/2024) Medications Medication Sig Dispensed Refills Start Date [...] External CreamIndications:E SRD on peritoneal dialysis ([facility]) Apply topically to affected area daily. Apply to PD exit catheter site daily after showering and cover with bandage 15 g 2 09/08/2023 Active Dialyvite Oral Tablet Take 1 Tablet by mouth in the morning. 30 Tablet 11 09/28/2023 Active Losartan Potassium 50 MG Oral Tablet (Cozaar) Take 1 Tablet by mouth in the morning. 30 Tablet 11 11/21/2023 Active Syringe 21G X 1" 3 ML Retacrit 13.000 U weekly. 12 Each 6 12/04/2023 Active BD Insulin Syringe 25G X 5/8" 1 ML (Insulin Syringe-Needle U-100)Indications: ESRD on peritoneal dialysis ([facility]) Use to inject Retacrit weekly 12 Each 6 12/20/2023 Active Lovastatin 10 MG Oral TabletIndications: Kidney replaced [...] mouth with meals and snacks. 120 Tablet 12/26/2023 Active Cinacalcet HCl 30 MG Oral Tablet (Sensipar) Take 1 tablet by mouth in the morning. 90 Tablet 6 12/26/2023 Active Retacrit 95013 UNIT/ML Injection Solution (Epoetin melita-epbx ESRD)Indications:E SRD on peritoneal dialysis ([facility]) Inject 0.82 mL under the skin once a week. 5 mL 01/18/2024 03/01/2024 Active Tuberculin-Allergy Syringes 26G X 5/8" 1 MLIndications:ESRD on peritoneal dialysis ([facility]) Inject under the skin once a week for 4 doses. 5 Each 2 01/18/2024 02/09/2024 Active BD Syringe Slip Tip 25G X 5/8" 1 ML (Tuberculin Syringe) Use to inject Retacrit weekly 12 Each 5 01/22/2024 Active Metoprolol Succinate ER 100 MG Oral Tablet Extended Release 24 Hour (toPROL XL) Take 0.5 Tablets by mouth in the morning. 12/23/2023 Active documented as of this encounter (statuses as of 02/06/2024) Active Problems Problem Noted Date Diagnosed Date [...] as of this encounter (statuses as of 02/06/2024) Resolved Problems Problem Noted Date Diagnosed Date [...] as of this encounter (statuses as of 02/06/2024) Immunizations Name Administration Dates Next Due COVID-19 mRNA, LNP-s, No Pre serve, 2-Dose Series (Moderna) 11/23/2020,10/18/2020 DTP Vaccine 1981,1981,1981 HEP B - Hepatitis B (Dialysis/Immumocomp Pt) 05/02/2023,04/04/2023 MMR - Measles/Mumps/Rubella Vaccine 05/11/1982 OPV - Polio Virus Vaccine (Oral) 1981,04/11 Pneumococcal Conjugate Vacci ne, 20-valent ([id number]) 11/17/2022 Seasonal Influenza, PF, 6 M & above, IM , (FluLaval or Fluzone) 06/20/2023,06/24/2020 Seasonal Influenza, Quadriva lent Hd (Fluzone Hd) 06/24/2021 Seasonal Influenza, Split, I IV3, With Preserve, Inj 09/10/2012,08/11/2010,07/30/2007,2005 TDAP (age 10 and older)(Boostrix) 03/17/2020 TDAP (age 11 and older)(Adacel) 01/02/2009 documented as of this encounter Social [...] encounter Miscellaneous Notes * Telephone Encounter - Karrie Russo TECH - 02/06/2024 10:04 AM EDT Spoke with pt to wish them a happy birthday and to remind them of their appt with dr lopez on 02/07 at 1pm. documented in this encounter Plan of Treatment Upcoming Encounters Date Type Department Care Team (Late st Contact Info) Description 02/08/2024 1:00 PM EDT Office Visit Home Dialysis [address] [place] [address] [facility], Peritoneal Dialysis [address] [place] [address] 02/10/2024 8:00 AM EDT Treatment Home Dialysis [facility] [address] [place] [address] Nurse, Lance Bee [address] 03/05/2024 1:00 PM EDT Office Visit Home Dialysis [facility] [address] [place] [address] [facility], Peritoneal Dialysis [address], [place] 03/11/2024 8:00 AM EDT Treatment Home Dialysis [facility] [address] [phone] Nurse, Lance Bee [address] 04/11/2024 8:00 AM EDT Treatment Home Dialysis [facility] [address] [place] [address] Nurse, Lance Bee [address] [place] [address] 04/15/2024 1:00 PM EDT Hospital Encounter Radiology, [place] [address] [place] [address] 04/16/2024 11:00 AM EDT Office Visit Transplant Clinic, [place] [address] [place] [address] Gutierrez Monae MD [address], [place] Win Julio MD [address], [place] Nurse [facility] [address], [place] Kathi Robinry, SPORTS MARKETER [address], [place] [id number] 04/16/2024 2:50 PM EDT Laboratory Outpatient Laboratory, [place] [address] [place] [address] [place], Lab B1a [address], [place] [id number] 04/17/2024 1:00 PM EDT Appointment Radiology, [place] [address], [place] [id number] 04/29/2024 1:00 PM EDT Office Visit Home Dialysis Lance Fernández, [place] [address] [address] [place], [place] [phone] [facility], Peritoneal Dialysis [address], [place] [id number] 05/27/2024 12:40 PM EDT Nutrition Services Nutrition & Weight Management, [place] [address], [place] [id number] Jaz Best, RDN [address], [place] [id number] Health Maintenance Due Date Last Done Comments [...] Advance Directives occurred with: Patient Care Teams Mds Coordinator Relationship Specialty Start Date End Date Tomer Garner MD [address] [facility] [place] [address] PCP - General 09/19/02 documented as of this encounter
--- OUTSIDE RECORDS SUMMARY | 2024-03-17 14:19 | External Medical Summary ---
Author Name Unknown Address Unknown Organization K01:[facility] [place] [address] [place] [address] Laboratory Report Ordering Provider Test Date Status MARI BOB 01/17/2024 12:17:30 Final Study includes results for T ransferrin Saturation, Binding Capacity, and Iron. Observation Date Value Abnormality Reference (Units ) Status Iron 01/17/2024 12:17:30 65 45-176 (ug/dL) Final Iron-binding capacity 01/17/2024 12:17:30 242 Below low normal 250-425 (ug/dL) Final Transferrin Sat % 01/17/2024 12:17:30 27 15-55 (%) Final Performing Location [facility] - [address] [place] [address]
--- OUTSIDE RECORDS SUMMARY | 2024-03-17 14:19 | External Medical Summary | Summary of Care ---
Author Name Unknown Organization [facility] Address [address] [place] [address] Phone [phone] Care Team Providers Care Earth Science Technician Name Role Phone Tomer Garner MD Primary Care Provider Reason for Visit * Reason Comments Weight Management NEW PATIENT * Evaluate & Treat - Unlimited Visits (Within 10 days (routine)) - Authorized Specialty Diagnoses / Procedures Referred By Contact Referred To Contact GI NUTRITION/IM / Gastroenterology Diagnoses Class 3 severe obesity with body mass index (BMI) of 45.0 to 49.9 in adult, unspecified obesity type, unspecified whether serious comorbidity present (HCC) Akosua Lopez MD [address] [place] [address] Referral ID Status Reason Start Date Expiration Date Visits Requested Visits Authorized [id number] Authorized Specialty Services Required 01/02/[id number] Encounter Details Date Type Department Care Team (Late st Contact Info) Description 01/31/2024 2:40 PM EDT Office Visit Nutrition & Weight Management, [place] [address] [place] [address] Mary Gonzalez CRNP [address] [place] [address] Abnormal weight gain*; ESRD on peritoneal dialysis (HCC); Kidney replaced by transplant; Body mass index (BMI) of 40.0 to 44.9 in adult (HCC) Allergies No known active allergiesdocumented as of this encounter (statuses as of 01/31/2024) Medications Medication Sig Dispensed Refills Start Date [...] inject Retacrit weekly 12 Each 12/20/2023 Active Lovastatin 10 MG Oral TabletIndications :Kidney replaced by transplant Take 1 Tablet by mouth in the morning. 90 Tablet 3 12/25/2023 Active cycloSPORINE Modified 25 MG Oral CapsuleIndication s:Kidney replaced by transplant Take 2 capsules in the morning and 2 capsules in the evening 360 Capsule 12/25/2023 Active Auryxia 1 GM 210 MG(Fe) Oral Tablet (Ferric Citrate) Take 1 Tablet by mouth with meals and snacks. 120 Tablet 12/26/2023 Active Cinacalcet HCl 30 MG Oral Tablet (Sensipar) Take 1 tablet by mouth in the morning. 90 Tablet 6 12/26/2023 Active Retacrit 04485 UNIT/ML Injection Solution (Epoetin melita-epbx ESRD)Indications: ESRD on peritoneal dialysis (HCC) Inject 0.82 mL under the skin once a week. 5 mL 01/18/2024 4 Active Tuberculin-Allerg y Syringes 26G X 5/8" 1 MLIndications:ESR D on peritoneal dialysis (HCC) Inject under the skin once a week for 4 doses. 5 Each 2 01/18/2024 4 Active BD Syringe Slip Tip 25G X 5/8" 1 ML (Tuberculin Syringe) Use to inject Retacrit weekly 12 Each 5 01/22/2024 Active Metoprolol Succinate ER 100 MG Oral Tablet Extended Release 24 Hour (toPROL XL) Take 0.5 Tablets by mouth in the morning. 12/23/2023 Active oxyCODONE HCl 5 MG Oral Capsule (Oxy IR) Take 1 Capsule by mouth every 4 hours as needed for Pain, Severe. 12 Capsule 08/21/2023 4 Discontinue d(Medicatio n List Clean Up) documented as of this encounter (statuses as of 01/31/2024) Active Problems Problem Noted Date Diagnosed Date [...] as of this encounter (statuses as of 01/31/2024) Resolved Problems Problem Noted Date Diagnosed Date [...] as of this encounter (statuses as of 01/31/2024) Immunizations Name Administration Dates Next Due COVID-19 mRNA, LNP-s, No Pre serve, 2-Dose Series (Moderna) 11/23/2020,10/18/2020 DTP Vaccine 1981,1981,1981 HEP B - Hepatitis B (Dialysis/Immumocomp Pt) 05/02/2023,04/04/2023 MMR - Measles/Mumps/Rubella Vaccine 05/11/1982 OPV - Polio Virus Vaccine (Oral) 1981,04/11 Pneumococcal Conjugate Vacci ne, 20-valent ([id number]) 11/17/2022 Seasonal Influenza, PF, 6 M & [...] Sign Reading Time Taken Comments Blood Pressure 130/82 01/31/2024 2:38 PM EDT Pulse 87 01/31/2024 2:38 PM EDT Temperature - - Respiratory Rate - - Oxygen Saturation 90% 01/31/2024 2:38 PM EDT Inhaled Oxygen Concentration - - Weight 133.4 kg (294 lb) 01/31/2024 2:38 PM EDT Height 178 cm (5' 10.08") 01/31/2024 2:38 PM EDT Body Mass Index 42.09 01/31/2024 2:38 PM EDT documented in this [...] as of this encounter Progress Notes * Mary Gonzalez CRNP - 01/31/2024 2:39 PM EDT [facility] CONSULTATION Referring Physician: Akosua Lopez MD Source of information: Patient Available records reviewed: Recent provider visits and Labs Reason for Referral: Weight Management. 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 HPI: The patient suffers from Morbid obesity Patient is interested in the following treatment options for obesity: medical management and possible medication use. Previous Weight Management Interventions: The patient has tried weight loss in the past without significant snf success. Previous interventions: Self-directed. Weight history: Wt Readings from Last 8 Encounters: 12/26/23 131.7 kg (290 lb 4.8 oz) 12/04/23 132.6 kg (292 lb 4.8 oz) 11/23/23 127.4 kg (280 lb 13.9 oz) 11/07/23 127 kg (279 lb 15.8 oz) 11/03/23 125.4 kg (276 lb 6.4 oz) 11/03/23 125.2 kg (276 lb) 10/31/23 121.2 kg (267 lb 3.2 oz) 10/23/23 126.8 kg (279 lb 8 oz) Current Diet: Describes typical diet history/24 hr recall Breakfast: cinnamon roll or bagel with cheese chese or kazakh muffin Snacks: none Lunch: ham and cheese sandwhich or chicken wrap Snacks: candy or cupcake Dinner: chciken finger or burger or salad or p/v/s Snacks: none Drinks: coffee OJ Iced tea - sweet tea x 3 16oz cup Reg sprite - often Water - working on increasing that Restaurant meals: several times a week Activity: Limited 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 Past Surgical History: Procedure Laterality Date AV ACCESS, DIRECT ANASTOMOSIS Left 02/21/2023 ARTERIOVENOUS ANASTOMOSIS OPEN DIRECT ANY SITE performed by Ren Rhodes MD at [place] [facility] AV ACCESS, REVISE AVF W/O THRO Left 05/22/2023 REVISION ARTERIOVENOUS FISTULA WITHOUT THROMBECTOMY performed by Ren Rhodes MD at OR [facility] INSERT CANNULA, VEIN-VEIN Central vein dialysis catheter insertion - l subcalvian. ? thrombosis R subclavian INSERT TEMPORARY ABDOMINAL DRAIN PD catheter insertion INTRAPERITONEAL CATH REMOVAL PD catheter removal INTRO CATH DIALYSIS CIRCUIT W/TRANSLUM BALLOON ANGIOPLASTY Left 05/22/2023 AV FISTULOGRAM & PERIPHERAL ANGIOPLASTY performed by Ren Rhodes MD at OR [facility] IR VENOUS ACCESS NON-MEDIPORT 03/13/2023 IR VENOUS ACCESS NON-MEDIPORT 10/02/2023 LAPAROSCOPY, W/ INSERT INTRAPERITONEAL CATH N/A 08/21/2023 LAPAROSCOPIC INSERTION INTRAPERITONEAL CANNULA OR CATHETER performed by Lawson Steinberg MD at OR [facility] RENAL BIOPSY, PERCUTANEOUS (TROCAR/NEEDLE) Renal biopsy ([place]) TRANSPLANTATION OF KIDNEY Cadaver renal transplant Review of patient's allergies indicates: No Known Allergies Current Outpatient Medications Medication Sig Dispense Refill [...] mouth in the morning. 30 Tablet 11 Losartan Potassium 50 MG Oral Tablet (Cozaar) Take 1 Tablet by mouth in the morning. 30 Tablet 11 Syringe 21G X 1" 3 ML Retacrit 13.000 U weekly. 12 Each 6 BD Insulin Syringe 25G X 5/8" 1 ML (Insulin Syringe-Needle U-100) Use to inject Retacrit weekly 12 Each 6 Lovastatin 10 MG Oral Tablet Take 1 Tablet by mouth in the morning. 90 Tablet 3 cycloSPORINE Modified 25 MG Oral Capsule Take 2 capsules in the morning and 2 capsules in the evening 360 Capsule 3 Auryxia 1 GM 210 MG(Fe) Oral Tablet (Ferric Citrate) Take 1 Tablet by mouth with meals and snacks. 120 Tablet 11 Cinacalcet HCl 30 MG Oral Tablet (Sensipar) Take 1 tablet by mouth in the morning. 90 Tablet 6 Retacrit 77764 UNIT/ML Injection Solution (Epoetin melita-epbx ESRD) Inject 0.82 mL under the skin once a week. 5 mL 0 Tuberculin-Allergy Syringes 26G X 5/8" 1 ML Inject under the skin once a week for 4 doses. 5 Each 2 BD Syringe Slip Tip 25G X 5/8" 1 ML (Tuberculin Syringe) Use to inject Retacrit weekly 12 Each 5 Metoprolol Succinate ER 100 MG Oral Tablet [...] bedtime. (Patient not taking: Reported on 12/26/2023) No current facility-administered medications for this visit. Family History: Family History Problem Relation Name Age of Onset Hypertension Mother not taking medicine Allergies Father No Known Problems Sister Cancer Grandfather (Maternal) Eye Problems Grandfather (Maternal) cataracts removed Cancer Grandmother (Paternal) Diabetes Grandmother (Paternal) Glaucoma Grandmother (Paternal) cataracts Social History: Alcohol: None Tobacco Use: No Drug Use: No Review of Systems: Eyes: Glaucoma No Cardiovascular: No chest pain, No dyspnea on exertion, No orthopnea, No edema, No palpitations, No syncope, and +SOB Hypertension: Yes, 1 medications BP Readings from Last 3 Encounters: 12/26/23 133/69 12/22/23 140/74 12/04/23 127/71 CAD: No Pulmonary Asthma: No COPD: No There are no exam notes on file for this visit. Sleep Apnea: No Declined testing Endocrine: hyperparathyroidism Patient denies personal or family history of medullary thyroid carcinoma. Patient denies personal or family history of multiple endocrine neoplasia syndrome. Insulin Resistance: Yes Diabetes: No Hemoglobin AIC Results: No components found for: "[id number]" Dyslipidemia: Yes Lipid Panel Results: Results for orders placed or performed in visit on 05/18/21 LIPID PANEL WITHOUT DIRECT LDL Result Value Ref Range Triglycerides 343 (H) <=174 mg/dL Cholesterol 157 <200 mg/dL HDL Cholesterol 26 (L) >39 mg/dL Non-HDL Cholesterol 131 <=159 mg/dL LDL Cholesterol 62 <=129 mg/dL GI: No abdominal pain, No change in bowel habits, No significant heartburn, No significant change in appetite, No nausea, vomiting, diarrhea, or constipation, No hematemesis, No blood in stools or black tarry stools, No abdominal bloating or early satiety, and No dysphagia GERD: No Fatty Liver: no Renal History of nephrolithiasis: No. Musculoskeletal Osteoarthritis: No Functional Status: NO Impairment Neuro Stroke: No Seizures: No Pseudotumor: No Headache: No Physical Examination: BP 130/82 | Pulse 87 | Ht 1.78 m (5' 10.08") | Wt 133.4 kg (294 lb) | SpO2 90% | BMI 42.09 kg/m |BSA 2.57 m Constitutional: no acute distress Eyes: sclera and conjunctiva normal Neck: supple, normal range of motion Lungs: Normal WOB Extremities: no cyanosis, or edema, otherwise grossly normal, warm, and dry Skin: warm, dry, intact Neuro: alert, oriented to person, place, and time, gait normal Psych: normal mood and affect, nonsuicidal, judgement normal, memory normal Assessment and Recommendation: Mr. Donato is a 43 year old patient with a past medical history listed above, who presents to the [facility] for further recommendations. Abnormal weight gain There is no height or weight on file to calculate BMI. Morbid obesity . Discussed weight management options and would like to proceed with conservative weight management. Barriers are consistency. Motivators are feeling better, avoiding/reducing comorbid conditions. Patient goals were discussed in detail at visit. Obesity: Body mass index is 42.09 kg/m. Portion control Focus on protein Water goal: 64 ounces Snacks 100 kcals TID Increase exercise as tolerated Do not skip meals New RD visit We did no discuss wt loss medication today. Pt to make diet changes. S/p kidney txplant for Baldo's granulomatosis - 25 years years ago - does FERNANDO nightly at home - follows closely with Nephro - cont meds per nephrology HTN - stable today . DLD - taking statin Disordered sleep - +BISI screen -->> declined testing Time spent with patient 40 minutes. More than 50% of my time spent with patient providing counseling about the benefits of weight loss, about the patient's nutritional status, detailed explanations about calorie count, types of nutrients to choose, and composition of the meals. Reviewed and discussed weight, weight trends and pertinent labs and test results. Motivational interview provided in order to prepare the patient to achieve future goals. The patient agreed to try all the plan discussed and return in three months. Patient was instructed to message or call in the meantime with any further concerns or questions. RERE Aleman documented in this encounter Nursing Notes * Leesa San LPN - 01/31/2024 2:41 PM EDT Neck circumference 20 inches documented in this encounter Plan of Treatment Upcoming Encounters Date Type Department Care Team (Late st Contact Info) Description 02/08/2024 1:00 PM EDT Office Visit Home Dialysis [address], [place], [place] [phone] [facility], Peritoneal Dialysis [address] [place] [address] 02/10/2024 8:00 AM EDT Treatment Home Dialysis [address], [place] [address] Nurse, [facility] [place] [place] [address] 03/05/2024 1:00 PM EDT Office Visit Home Dialysis [address], [place] [address] [facility], Peritoneal Dialysis [address] [place] [address] 03/11/2024 8:00 AM EDT Treatment Home Dialysis [address], [place] [address] Nurse, [facility] [place] [address] 04/11/2024 8:00 AM EDT Treatment Home Dialysis [address] [address] Nurse, [address] [place] [address] 04/15/2024 1:00 PM EDT Hospital Encounter Radiology, [place] [address] [place] [address] 04/16/2024 11:00 AM EDT Office Visit Transplant Clinic, [place] [address] [place] [address] Gutierrez Monae MD [address] [place] [address] Win Julio MD [address] [place] [address] Nurse [facility] [address] [place] [address] Chana Robin LSW [address] [place] [address] 04/16/2024 2:50 PM EDT Laboratory Outpatient Laboratory, [address] [id number] [place], Lab B1a [address], [place] [id number] 04/17/2024 1:00 PM EDT Appointment Radiology, [place] [address] [place] [address] 04/29/2024 1:00 PM EDT Office Visit Home Dialysis [address] [phone] [facility], Peritoneal Dialysis [address], [place] [id number] 05/27/2024 12:40 PM EDT Nutrition Services Nutrition & Weight Management, [place] [address] [place] [address] Jaz Best RDN [address] [place] [address] Health Maintenance Due Date Last Done Comments [...] as of this encounter Visit Diagnoses Diagnosis Abnormal weight gain- Primary ESRD on peritoneal dialysis (HCC) End stage renal disease Kidney replaced by transplant Body mass index (BMI) of 40.0 to 44.9 in adult (HCC) documented in this encounter Advance Directives * [...] Advance Directives occurred with: Patient Care Teams Earth Science Technician Relationship Specialty Start Date End Date Tomer Garner MD [address] [place] [address] PCP - General 09/19/02 documented as of this encounter
--- OUTSIDE RECORDS SUMMARY | 2024-03-17 14:19 | External Medical Summary | Summary of Care ---
Author Name Unknown Organization [facility] Address [address] [place] [address] Phone [phone] Care Team Providers Care Brainer Name Role Phone Tomer Garner MD Primary Care Provider Reason for Visit * Reason Comments Advice Encounter Details Date Type Department Care Team ([facility] st Contact Info) Description 12/26/2023 Home Health Care Coordinator Home Dialysis Nathaniel [address] [place] [address] [place] [address] Nancy Tolbert, BOARD LINER OPERATOR Allergies No known active allergiesdocumented as of this encounter (statuses as of 01/22/2024) Medications Medication Sig Dispensed Refills Start Date [...] the morning and 1 Capsule before bedtime. 0 08/21/2023 Active Additional Information Patient not taking.Reported on 12/26/2023 oxyCODONE HCl 5 MG Oral Capsule (Oxy IR) Take 1 Capsule by mouth every 4 hours as needed for Pain, Severe. 12 Capsule 0 08/21/2023 Active Additional Information Patient not taking.Reported on 12/04/2023 Gentamicin Sulfate 0.1 % External CreamIndications:E SRD on peritoneal dialysis ([facility]) Apply topically to affected area daily. Apply [...] (Insulin Syringe-Needle U-100)Indications: ESRD on peritoneal dialysis ([facility]) Use to inject Retacrit weekly 12 Each 12/20/2023 Active Lovastatin 10 MG Oral TabletIndications: [...] and snacks. 120 Tablet 11 12/26/2023 Active Cinacalcet HCl 30 MG Oral Tablet (Sensipar) Take 1 tablet by mouth in the morning. 90 Tablet 6 12/26/2023 Active documented as of this encounter (statuses as of 01/22/2024) Active Problems Problem Noted Date Diagnosed Date [...] as of this encounter (statuses as of 01/22/2024) Resolved Problems Problem Noted Date Diagnosed Date [...] as of this encounter (statuses as of 01/22/2024) Immunizations Name Administration Dates Next Due COVID-19 mRNA, LNP-s, No Pre serve, 2-Dose Series (Moderna) 11/23/2020,10/18/2020 DTP Vaccine 1981,1981,1981 HEP B - Hepatitis B (Dialysis/Immumocomp Pt) 05/02/2023,04/04/2023 MMR - Measles/Mumps/Rubella Vaccine 05/11/1982 OPV - Polio Virus Vaccine (Oral) 1981,04/11 Pneumococcal Conjugate Vacci ne, 20-valent ([id number]) 11/17/2022 Seasonal Influenza, PF, 6 M & [...] of this encounter Progress Notes * Nancy Tolbert LSW - 01/22/2024 3:22 PM EDT SOCIAL WORK MONTHLY NOTE Gender: male Age: [age] year old Mental Health Changes: None reported. Comments: Patient presents to his PD clinic appointment at his baseline. Patient is consistently pleasant and easily engages with report writer and staff. No concern for changes to mental health. Activities of Daily Living Changes: None reported. Comments: Patient continues to reside independently at home. Support System Changes: None reported. Comments: Patient presents with an intact support system. Machine Plug Shaper will continue to follow and will remain available to address psychosocial issues as needed in the clinic setting. KADEN Delaney Outpatient Supervisor Elementary Education documented in this encounter Plan of Treatment Upcoming Encounters Date Type Department Care Team (Late st Contact Info) Description 01/31/2024 2:40 PM EDT Office Visit Nutrition & Weight Management, [place] [address] [place] [address] Mary Gonzalez CRNP [address] [place] [address] 02/08/2024 1:00 PM EDT Office Visit Home Dialysis [address] [place] [address] [facility], Peritoneal Dialysis [address] [place] [address] 02/10/2024 8:00 AM EDT Treatment Home Dialysis Cl[facility] [address] [place] [address] Nurse, Lance [employer] [address] [place] [address] 03/05/2024 1:00 PM EDT Office Visit Home Dialysis [facility] [place], [place] [address] Mdc, Peritoneal Dialysis [facility] [place] [place] [address] 03/11/2024 8:00 AM EDT Treatment Home Dialysis Clau [address] [phone] Nurse, [email or web address] [address], [place] [address] 04/11/2024 8:00 AM EDT Treatment Home Dialysis [facility], [place] [phone] Nurse, [employer] [place] [address] [place] [address] [address] 04/15/2024 1:00 PM EDT Hospital Encounter Radiology, [place] [address] [place] [address] 04/16/2024 11:00 AM EDT Office Visit Transplant Clinic, [place] [address] [place] [address] Gutierrez Monae MD [address] [place] [address] Win Julio MD [address] [place] [address] Nurse [facility] [address] [place] [address] Kathi Robinry, BOARD LINER OPERATOR [address] [place] [address] 04/16/2024 2:50 PM EDT Laboratory Outpatient Laboratory, [place] [address] [place] [address] [place], Lab B1a [address] [place] [address] 04/17/2024 1:00 PM EDT Appointment Radiology, [place] [address] [place] [address] 04/29/2024 1:00 PM EDT Office Visit Home Dialysis Lance Fern[address], [place] [address] [address] [place], [place] [phone] Mdc, Peritoneal Dialysis [address] [place] [address] Health Maintenance Due Date Last Done Comments [...] filedocumented as of this encounter Advance Directives Latest Code Status on File Code Status Date Activated Date Inactivated Comments Full Code 10/28/2023 5:15 PM 10/31/2023 3:17 PM This order reflects the patients wishes and were consensually agreed upon. Question Answer Comments Discussion of Advance Directives occurred with: Patient Code Status History Code Status Date Activated Date Inactivated Comments Full Code 08/21/2023 3:00 PM 08/21/2023 11:14 PM Th is order reflects the patients wishes and were consensually agreed upon. Question Answer Comments Discussion of Advance Directives occurred with: Patient Full Code 11/01/2022 10:32 PM 11/07/2022 3:42 PM This order reflects the patients wishes and were consensually agreed upon. Question Answer Comments Discussion of Advance Directives occurred with: Patient Full Code 10/31/2022 9:32 PM 11/01/2022 9:56 PM This order reflects the patients wishes and were consensually agreed upon. Question Answer Comments Discussion of Advance Directives occurred with: Patient Care Teams Brainer Relationship Specialty Start Date End Date Tomer Garner MD [address] [place] [address] PCP - General 09/19/02 documented as of this encounter
--- OUTSIDE RECORDS SUMMARY | 2024-03-17 14:19 | External Medical Summary | Summary of Care ---
Author Name Unknown Organization [facility] Address [address] [facility] [place] [address] Phone [phone] Care Team Providers Care Project Scientist Name Role Phone Tomer Garner MD Primary Care Provider [phone] Encounter Details Date Type Department Care Team (Late st Contact Info) Description 01/30/2024 Telephone Home Dialysis [address] [place] [address] Sophia Hernandez RN Allergies No known active allergiesdocumented as of this encounter (statuses as of 01/30/2024) Medications Medication Sig Dispensed Refills Start Date [...] needed for Pain, Severe. 12 Capsule 08/21/2023 Active Additional Information Patient not taking.Reported on 12/04/2023 Gentamicin Sulfate 0.1 % External CreamIndications:E SRD on peritoneal dialysis ([facility]) Apply topically to affected area daily. [...] (Insulin Syringe-Needle U-100)Indications: ESRD on peritoneal dialysis ([facility]) Use to inject Retacrit weekly 12 Each 12/20/2023 Active Lovastatin 10 MG Oral TabletIndications: Kidney replaced by transplant Take 1 Tablet by mouth in the morning. 90 Tablet 12/25/2023 Active cycloSPORINE Modified 25 MG Oral [...] by mouth in the morning. 90 Tablet 12/26/2023 Active Retacrit 89636 UNIT/ML Injection Solution (Epoetin melita-epbx ESRD)Indications:E SRD on peritoneal dialysis ([facility]) Inject 0.82 mL under the skin once a week. 5 mL 01/18/2024 03/01/2024 Active Tuberculin-Allergy Syringes 26G X 5/8" 1 MLIndications:ESRD on peritoneal dialysis ([facility]) Inject under the skin once a week for 4 doses. 5 Each 2 01/18/2024 02/09/2024 Active BD Syringe Slip Tip 25G X 5/8" 1 ML (Tuberculin Syringe) Use to inject Retacrit weekly 12 Each 5 01/22/2024 Active documented as of this encounter (statuses as of 01/30/2024) Active Problems Problem Noted Date Diagnosed Date [...] as of this encounter (statuses as of 01/30/2024) Resolved Problems Problem Noted Date Diagnosed Date [...] as of this encounter (statuses as of 01/30/2024) Immunizations Name Administration Dates Next Due COVID-19 mRNA, LNP-s, No Pre serve, 2-Dose Series (Moderna) 11/23/2020,10/18/2020 DTP Vaccine 1981,1981,1981 HEP B - Hepatitis B (Dialysis/Immumocomp Pt) 05/02/2023,04/04/2023 MMR - Measles/Mumps/Rubella Vaccine 05/11/1982 OPV - Polio Virus Vaccine (Oral) 1981,04/11 Pneumococcal Conjugate Vacci ne, 20-valent ([id number]) 11/17/2022 Seasonal Influenza, PF, 6 M & [...] Telephone Encounter - Sophia Hernandez RN - 01/30/2024 11:17 AM EDT PD nurse called pt to remind to go to lab to have repeat Hgb on 01/31/24. No answer and message left. documented in this encounter Plan of Treatment Upcoming Encounters Date Type Department Care Team (Late st Contact Info) Description 01/31/2024 2:40 PM EDT [facility] [address] [place] [address] Mary Gonzalez CRNP [address] [place] [address] 02/08/2024 1:00 PM EDT Office Visit Home Dialysis [address], [place] [phone] [facility] [place] [facility], Peritoneal Dialysis [address] [place] [address] 02/10/2024 8:00 AM EDT Treatment Home Dialysis Clua [address] [phone] Nurse, Lance [employer] [place] [address], [place] [address] 03/05/2024 1:00 PM EDT Office Visit Home Dialysis [facility] [address], [place] [address] [facility], Peritoneal Dialysis [address] [place] [address] 03/11/2024 8:00 AM EDT Treatment Home Dialysis Clau [address], [place] [phone] Nurse, [employer] [place] [address], [place] [phone] 04/11/2024 8:00 AM EDT Treatment Home Dialysis Clau [address] [place] [address] Nurse, [place] [address] 04/15/2024 1:00 PM EDT Hospital Encounter Radiology, [place] [address], [place] [phone] 04/16/2024 11:00 AM EDT Office Visit Transplant Clinic, [place] [address] [place], [place] [phone] Gutierrez Monae MD [address] [place], [place] [phone] Win Julio MD [address] [place], [place] [phone] Araceli Nurse Renal Transplant [address] [place] [address] Chana Robin, WEB SOFTWARE ENGINEER [address] [place] [address] 04/16/2024 2:50 PM EDT Laboratory Outpatient Laboratory, [place] [address] [place] [id number] [place], Lab B1a [address] [place] [address] 04/17/2024 1:00 PM EDT Appointment Radiology, [place] [address] [place], [place] [id number] 04/29/2024 1:00 PM EDT Office Visit Home Dialysis Lance Fernández [place] [address] [place], [place] [phone] [facility], Peritoneal Dialysis [address], [place] [phone] Health Maintenance Due Date Last Done Comments [...] Advance Directives occurred with: Patient Care Teams Project Scientist Relationship Specialty Start Date End Date Tomer Garner MD [address] [facility] [place] [address] [place] [address] PCP - General 09/19/02 documented as of this encounter
--- OUTSIDE RECORDS SUMMARY | 2024-03-17 14:19 | External Medical Summary | Summary of Care ---
Author Name Unknown Organization [facility] Address [address] [place] [address] Phone [phone] Care Team Providers Care Health Care Liaison Name Role Phone Tomer Garner MD Primary Care Provider [phone] Reason for Visit * Reason Onset Date Comments Nutritional Services Documentation 01/11/2024 Encounter Details Date Type Department Care Team (Late st Contact Info) Description 01/11/2024 8:30 AM EDT Scheduled Telephone Nutrition Services [address] [place] [address] Cathy Wang, RDN [address] [place] [address] Allergies No known active allergiesdocumented as of this encounter (statuses as of 01/18/2024) Medications Medication Sig Dispensed Refills Start Date [...] % External CreamIndications:E SRD on peritoneal dialysis ([facility]) Apply topically to affected area daily. Apply to PD exit catheter site daily after showering and cover with bandage 15 g 2 09/08/2023 Active Dialyvite Oral Tablet Take 1 Tablet by mouth in the morning. 30 Tablet 11 09/28/2023 Active Losartan Potassium 50 MG Oral Tablet (Cozaar) Take 1 Tablet by mouth in the morning. 30 Tablet 11 11/21/2023 Active Retacrit 27489 UNIT/ML Injection Solution (Epoetin melita-epbx ESRD) Inject 0.65 mL under the skin once a week. 3 mL 0 12/04/2023 01/18/2024 Active Syringe 21G X 1" 3 ML Retacrit 13.000 U weekly. 12 Each 6 12/04/2023 Active BD Insulin Syringe 25G X 5/8" 1 ML (Insulin Syringe-Needle U-100)Indications: ESRD on peritoneal dialysis ([facility]) Use to inject 13,000 units of Retacrit weekly 12 Each 6 12/20/2023 Active [...] in the morning. 90 Tablet 12/26/2023 Active documented as of this encounter (statuses as of 01/18/2024) Active Problems Problem Noted Date Diagnosed Date [...] as of this encounter (statuses as of 01/18/2024) Resolved Problems Problem Noted Date Diagnosed Date [...] as of this encounter (statuses as of 01/18/2024) Immunizations Name Administration Dates Next Due COVID-19 mRNA, LNP-s, No Pre serve, 2-Dose Series (Moderna) 11/23/2020,10/18/2020 DTP Vaccine 1981,1981,1981 HEP B - Hepatitis B (Dialysis/Immumocomp Pt) 05/02/2023,04/04/2023 MMR - Measles/Mumps/Rubella Vaccine 05/11/1982 OPV - Polio Virus Vaccine (Oral) 1981,04/11 Pneumococcal Conjugate Vacci ne, 20-valent ([id number]) 11/17/2022 Seasonal Influenza, PF, 6 M & [...] encounter Miscellaneous Notes * Telephone Encounter - Cathy Wang, RDN - 01/11/2024 3:57 PM EDT Reached out to Chandan to check in on progress towards suggestions/recommendations discussed at last visit. He reports drinking more water and less sugar drinks. He also reports being focused on eating more vegetables and trying to reduce his portions overall. Shares that he hasn't eaten bagels recently. Had a breakfast sandwich and a hash brown for breakfast today. Encouraged him to consider substituting fruit for the hash brown. He shares that he has Sensipar and Auryxia and is taking them as prescribed. Reviewed with him that calories he could be getting from PD treatments range: ~585-715 calories. He did schedule appointment with Nutrition and Weight Management clinic for 01/31/24, after Dr. Lopez placed the correct referral. Encouraged patient to continue to work on goals and to reach out with any future nutrition questions/concerns. No additional questions/concerns at this time. Plan to meet with him with rest of PD team at monthly PD visit in January on 02/08/24. Electronically signed by: Cathy Wang RDN, NUTRITION SERVICES [address] documented in this encounter Plan of Treatment Upcoming Encounters Date Type Department Care Team (Late st Contact Info) Description 01/31/2024 2:40 PM EDT Office Visit Nutrition & Weight Management, [place] [address] [place] [address] Mary Gonzalez CRNP [address] [place] [address] 02/08/2024 1:00 PM EDT Office Visit Home Dialysis [address] [phone] [facility]ialysis [address] [place] [facility] [place] [address] 02/10/2024 8:00 AM EDT Treatment Home Dialysis [address] [place] [phone] Nurse, [employer] [address] [address] [place] [address] 03/05/2024 1:00 PM EDT Office Visit Home Dialysis [facility] [place] [address] [facility]ialysis [address] [facility] [place] [address] 03/11/2024 8:00 AM EDT Treatment Home Dialysis Ham[address] [place] [address] Nurse, [employer] [address] [place] [address] [address] 04/11/2024 8:00 AM EDT Treatment Home Dialysis Ham[address] [phone] Nurse, Lance [address] [place] [address] 04/15/2024 1:00 PM EDT Hospital Encounter Radiology, [place] [address] [place] [address] 04/16/2024 11:00 AM EDT Office Visit Transplant Clinic, [place] [address] [place] [address] Gutierrez Monae MD [address] [place] [address] Win Julio MD [address] [place] [address] Nurse [facility]al Transplant [address] [place] [address] Chana Robin LSW [address] [place] [address] 04/16/2024 2:50 PM EDT Laboratory Outpatient Laboratory, [place] [address] [place] [address] [place], Lab B1a [address] [place] [address] 04/17/2024 1:00 PM EDT Appointment Radiology, [place] [address] [place], [place] [address] 04/29/2024 1:00 PM EDT Office Visit Home Dialysis [address], [place] [address] [facility], Peritoneal Dialysis [address] [place], [place] [phone] Health Maintenance Due Date Last Done Comments [...] Directives occurred with: Patient Care Teams Health Care Liaison Relationship Specialty Start Date End Date Tomer Garner MD [address] [facility] [place] [facility] PCP - General 09/19/02 documented as of this encounter
--- OUTSIDE RECORDS SUMMARY | 2024-03-17 14:19 | External Medical Summary | Summary of Care ---
Author Name Unknown Organization [facility] Address [address] [place] [address] Phone [phone] Care Team Providers Care Advanced Registered Nurse Name Role Phone Tomer Garner MD Primary Care Provider Reason for Visit * Reason Comments Outpatient Testing Encounter Details Date Type Department Care Team (Late st Contact Info) Description 01/31/2024 3:30 PM EDT Laboratory Outpatient Laboratory, [place] [address] [place] [address] [place], Lab B1a [address] [place] [address] ESRD on peritoneal dialysis (HCC) Allergies No [...] % External CreamIndications:E SRD on peritoneal dialysis ([facility]) Apply topically to affected area [...] (Insulin Syringe-Needle U-100)Indications: ESRD on peritoneal dialysis ([facility]) Use to inject Retacrit weekly [...] morning. 90 Tablet 6 12/26/2023 Active Retacrit 43500 UNIT/ML Injection Solution (Epoetin melita-epbx ESRD)Indications:E SRD on peritoneal dialysis ([facility]) Inject 0.82 mL under the skin once a week. 5 mL 01/18/2024 03/01/2024 Active Tuberculin-Allergy Syringes 26G X 5/8" 1 MLIndications:ESRD on peritoneal dialysis ([facility]) Inject under the skin once [...] (Oral) 1981,04/11 Pneumococcal Conjugate Vacci ne, 20-valent ([id number]) 11/17/2022 Seasonal Influenza, PF, 6 M & [...] [address] [place] [address] Mdc, Peritoneal Dialysis [address] [facility] [place] [address] 02/10/2024 8:00 AM EDT Treatment Home Dialysis Clau [address] [place] [address] Nurse, Lance Lopez [address] [place] [address] 03/05/2024 1:00 PM EDT Office Visit Home Dialysis Lance Fernández [place] [address] [place] [address] [facility], Peritoneal Dialysis [address] [place], [place] 03/11/2024 8:00 AM EDT Treatment Home Dialysis Nathaniel [place] [address] [phone] Nurse, [employer] [place] [address] 04/11/2024 8:00 AM EDT Treatment Home Dialysis Nathaniel Lucas [place] [address] [phone] Nurse, [employer] [address] 04/15/2024 1:00 PM EDT Hospital Encounter Radiology, [place] [address] [place], [place] [phone] 04/16/2024 11:00 AM EDT Office Visit Transplant Clinic, [place] [address] [place], [place] [phone] Gutierrez Monae MD [address] [place], [place] Win Julio MD [address] [place], [place] Nurse [facility] Renal Trans[facility] [address] [place], [place] Chana Robin LSW [address] [place], [place] 04/16/2024 2:50 PM EDT Laboratory Outpatient Laboratory, [place] [address] [place] [address] [place], Lab B1a [address] [place], [place] 04/17/2024 1:00 PM EDT Appointment Radiology, [place] [address] [place] [address] 04/29/2024 1:00 PM EDT Office Visit Home Dialysis Lance Fernández, [place] [address] [address] [place] [address] M[facility], Peritoneal Dialysis [address] [place] [address] 05/27/2024 12:40 PM EDT Nutrition Services Nutrition & Weight Management, [place] [address] [place], [place] [phone] Jaz Best, RDN [address] [place] [address] Health Maintenance Due Date Last Done Comments [...] Visit Diagnoses Diagnosis ESRD on peritoneal dialysis (HCC) End stage [...] Advance Directives occurred with: Patient Care Teams Advanced Registered Nurse Relationship Specialty Start Date End Date Tomer Garner MD [address] [place] [address] PCP - General 09/19/02 documented as of this encounter
--- OUTSIDE RECORDS SUMMARY | 2024-03-17 14:19 | External Medical Summary ---
Author Name Unknown Address Unknown Organization K01:[facility] - [address] [place] [address] Laboratory Report Ordering Provider Test Date Status MARI BOB 01/31/2024 15:21:26 Final Observation Date Value Abnormality Reference (Units ) Status Iron 01/31/2024 15:21:26 52 45-176 (ug/dL) Final Iron-binding capacity 01/31/2024 15:21:26 210 Below low normal 250-425 (ug/dL) Final Transferrin Sat % 01/31/2024 15:21:26 25 15-55 (%) Final Performing Location [facility] [place] - [address] [place] [address]
--- OUTSIDE RECORDS SUMMARY | 2024-03-17 14:19 | External Medical Summary | Summary of Care ---
Author Name Unknown Organization [facility] Address [address] [place] [address] Phone [phone] Care Team Providers Care Expressive Music Therapist Name Role Phone Tomer Garner MD Primary Care Provider [phone] Reason for Visit * Reason Comments Medication Refill Encounter Details Date Type Department Care Team (Late st Contact Info) Description 01/16/2024 Refill Home Dialysis Lance Fernández, [place] [address] [place] [address] Akosua Lopez MD [address] [place] [address] Allergies No known active allergiesdocumented [...] morning. 30 Tablet 11 11/21/2023 Active Retacrit 69221 UNIT/ML Injection Solution (Epoetin melita-epbx ESRD) Inject 0.65 mL under the skin once a week. 3 mL 0 12/04/2023 01/18/2024 Active Syringe 21G X 1" 3 ML Retacrit 13.000 U weekly. 12 Each 6 12/04/2023 Active BD Insulin Syringe 25G X 5/8" 1 ML (Insulin Syringe-Needle U-100)Indications: ESRD on peritoneal dialysis (HCC) Use to inject [...] (Oral) 1981,04/11 Pneumococcal Conjugate Vacci ne, 20-valent ([id number]) 11/17/2022 Seasonal Influenza, PF, 6 M & [...] encounter Miscellaneous Notes * Telephone Encounter - Pascale Marmolejo PHARM Tech - 01/18/2024 11:38 AM EDTNo prescriptions requested or ordered in this encounter documented in this encounter Plan of Treatment Upcoming Encounters Date Type Department Care Team (Late st Contact Info) Description 01/31/2024 2:40 PM EDT Office Visit Nutrition & Weight Management, [place] [address] [place] [address] Mary Gonzalez CRNP [address] [place] [address] 02/08/2024 1:00 PM EDT Office Visit Home Dialysis Nathaniel [place] [address] [place] [address] [address] [facility], Peritoneal Dialysis [address] [place] [address] 02/10/2024 8:00 AM EDT Treatment Home Dialysis [facility] [address] [phone] Nurse, Lance Sol[place] Cristal [address] [place] [address] 03/05/2024 1:00 PM EDT Office Visit Home Dialysis Cl[facility] [address] [phone] [facility], Peritoneal Dialysis [address] [place] [address] 03/11/2024 8:00 AM EDT Treatment Home Dialysis [facility] Lucas [address] [phone] Nurse, [facility] Cristal [address] [place] [address] [address] 04/11/2024 8:00 AM EDT Treatment Home Dialysis Cl[place] [address] [place] [address] Nurse, Lance [place]ov[place] Cristal [address] [place] [address] 04/15/2024 1:00 PM EDT Hospital Encounter Radiology, [place] [address], [place] [address] 04/16/2024 11:00 AM EDT Office Visit Transplant Clinic, [place] [address] [place], [place] [id number] Gutierrez Monae MD [facility] [place] [address] Win Julio MD [address] [place], [place] Araceli, Nurse Renal Transplant [address] [place] [address] Chana Robin LSW [address] [place] [address] 04/16/2024 2:50 PM EDT Laboratory Outpatient Laboratory, [place] [address] [place] [address] [place], Lab B1a [address] [place] [address] 04/17/2024 1:00 PM EDT Appointment Radiology, [place] [address] [place], [place] [id number] 04/29/2024 1:00 PM EDT Office Visit Home Dialysis Lance Fernández, [place] [address] [place], [place] [phone] [facility], Peritoneal Dialysis [address] [place], [place] [phone] Health Maintenance Due Date Last Done Comments [...] Advance Directives occurred with: Patient Care Teams Expressive Music Therapist Relationship Specialty Start Date End Date Tomer Garner MD [address] [place] [address] PCP - General 09/19/02 documented as of this encounter
--- OUTSIDE RECORDS SUMMARY | 2024-03-17 14:19 | External Medical Summary ---
Author Name Unknown Address Unknown Organization [facility] [address] [place] [address] Laboratory Report Ordering Provider Test Date Status MARI BOB 01/31/2024 15:21:26 Final Observation Date Value Abnormality Reference (Units ) Status Ferritin 01/31/2024 15:21:26 691 Above high normal 30 -400 (ng/mL) Final Performing Location [facility] [address] [place] [address]
--- OUTSIDE RECORDS SUMMARY | 2024-03-17 14:19 | External Medical Summary ---
Author Name Unknown Address Unknown Organization [facility] - [address] [place] [address] Laboratory Report Ordering Provider Test Date Status MARI BOB 01/31/2024 15:21:26 Final Observation Date Value Abnormality Reference (Units ) Status Phosphate 01/31/2024 15:21:26 10.6 Above high normal 2. 5-4.8 (mg/dL) Final Performing Location [facility] - [address] [place] [address]
--- OUTSIDE RECORDS SUMMARY | 2024-03-17 14:19 | External Medical Summary | Summary of Care ---
Author Name Unknown Organization [facility] Address [address] [place] [address] Phone [phone] Care Team Providers Care Boatwright Name Role Phone Tomer Garner MD Primary Care Provider [phone] Reason for Visit * Reason Comments Outpatient Testing Encounter Details Date Type Department Care Team ([facility] Contact Info) Description 01/17/2024 10:50 AM EDT Laboratory Lab [facility] [address] [place] [address] [place], Lab [address] [place] [address] 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 chronic kidney disease, not on chronic dialysis (HCC); ESRD on peritoneal dialysis (HCC) Allergies No known active allergiesdocumented as of this encounter (statuses as of 01/17/2024) Medications Medication Sig Dispensed Refills Start Date [...] morning. 30 Tablet 11 11/21/2023 Active Retacrit 93209 UNIT/ML Injection Solution (Epoetin melita-epbx ESRD) Inject 0.65 mL under the skin once a week. 3 mL 0 12/04/2023 01/18/2024 Active Syringe 21G X 1" 3 ML Retacrit 13.000 U weekly. 12 Each 6 12/04/2023 Active BD Insulin Syringe 25G X 5/8" 1 ML (Insulin Syringe-Needle U-100)Indications: ESRD on peritoneal dialysis ([facility]) Use to inject 13,000 units of Retacrit [...] as of this encounter (statuses as of 01/17/2024) Active Problems Problem Noted Date Diagnosed Date [...] as of this encounter (statuses as of 01/17/2024) Resolved Problems Problem Noted Date Diagnosed Date [...] as of this encounter (statuses as of 01/17/2024) Immunizations Name Administration Dates Next Due COVID-19 mRNA, LNP-s, No Pre serve, 2-Dose Series (Moderna) 11/23/2020,10/18/2020 DTP Vaccine 1981,1981,1981 HEP B - Hepatitis B (Dialysis/Immumocomp Pt) 05/02/2023,04/04/2023 MMR - Measles/Mumps/Rubella Vaccine 05/11/1982 OPV - Polio Virus Vaccine (Oral) 1981,04/11 Pneumococcal Conjugate Vacci ne, 20-valent ([id number]) 11/17/2022 Seasonal Influenza, PF, 6 M & [...] PM EDT Office Visit [facility] [address] [place] [address] Mary Gonzalze CRNP [address] [place] [address] 02/08/2024 1:00 PM EDT Office Visit Home Dialysis [facility] [address] [place] [address] [address] [facility], Peritoneal Dialysis [address] [facility] [place] [id number] 02/10/2024 8:00 AM EDT Treatment Home Dialysis Clau [address] [phone] NurseLance [address] 03/05/2024 1:00 PM EDT Office Visit Home Dialysis [place] [address] [address] [place], [place] [id number] [place], Peritoneal Dialysis [address] [place] [address] 03/11/2024 8:00 AM EDT Treatment Home Dialysis Clau Lucas Dr Lance [place], [place] [phone] Nurse, Lance [address] [employer] Lance [place], [place] 04/11/2024 8:00 AM EDT Treatment Home Dialysis Hao [place] [address] [place], [place] [phone] Nurse, Lance Drive [place] [address] Lance [place], [place] 04/15/2024 1:00 PM EDT Hospital Encounter Radiology, [place] [address] [place], [place] [phone] 04/16/2024 11:00 AM EDT Office Visit Transplant Clinic, [place] [address] [place], [place] [phone] Gutierrez Monae MD [address] [place], [place] Win Julio MD [address] [place], [place] Nurse Araceli Renal Transplant [address] [place] [address] Chana Robin LSW [address] [place], [place] 04/16/2024 2:50 PM EDT Laboratory Outpatient Laboratory, [place] [address] [place] [address] [place], Lab B1a [address] [place] [facility] [place] [id number] 04/17/2024 1:00 PM EDT [facility]ointment Rad[facility], [place] [facility] [address] [facility] [address] 04/29/2024 1:00 PM EDT Office Visit Home Dialysis Lance Fernández, [place] [address] [place] [address] [place], Peritoneal Dialysis [address] [facility] Health Maintenance Due Date Last Done Comments [...] of this encounter Visit Diagnoses Diagnosis 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 chronic kidney disease, not on chronic dialysis (HCC) ESRD on peritoneal dialysis (HCC) End stage renal disease documented in this encounter Advance Directives Latest Code Status [...] Advance Directives occurred with: Patient Care Teams Boatwright Relationship Specialty Start Date End Date Tomer Garner MD [address] [facility] [place] [address] PCP - General 09/19/02 documented as of this encounter
--- OUTSIDE RECORDS SUMMARY | 2024-03-17 14:19 | External Medical Summary | Summary of Care ---
Author Name Unknown Organization [facility] Address [address] [facility] [place] [address] Phone [phone] Care Team Providers Care Manager Development Name Role Phone Tomer Garner MD Primary Care Provider [phone] Reason for Visit * Reason Onset Date Comments Other 01/18/2024 Adjusted retacri t dose Encounter Details Date Type Department Care Team (Late st Contact Info) Description 01/18/2024 Telephone Home Dialysis Nathaniel [place] [address] [place] [address] Sophia Hernandez RN Other (Adjusted retacrit dose) Allergies No known active allergiesdocumented as [...] CreamIndications:E SRD on peritoneal dialysis ([facility]) Apply topically to affected area daily. Apply to PD exit catheter site daily after showering and cover with bandage 15 g 2 09/08/2023 Active Dialyvite Oral Tablet Take 1 Tablet by mouth in the morning. 30 Tablet 09/28/2023 Active Losartan Potassium 50 MG Oral Tablet (Cozaar) Take 1 Tablet by mouth in the morning. 30 Tablet 11/21/2023 Active Retacrit 71174 UNIT/ML Injection Solution (Epoetin melita-epbx ESRD) Inject 0.65 mL under the skin once a week. 3 mL 0 12/04/2023 01/18/2024 Active Syringe 21G X 1" 3 ML Retacrit 13.000 U weekly. 12 Each 12/04/2023 Active BD Insulin Syringe 25G X 5/8" 1 ML (Insulin Syringe-Needle U-100)Indications: ESRD on peritoneal dialysis ([facility]) Use to inject Retacrit weekly 12 [...] the morning. 90 Tablet 12/26/2023 Active Retacrit 87224 UNIT/ML Injection Solution (Epoetin melita-epbx ESRD)Indications:E SRD on peritoneal dialysis ([facility]) Inject 0.82 mL under the skin once a week. 5 mL 0 01/18/2024 03/01/2024 Active Tuberculin-Allergy Syringes 26G X 5/8" 1 MLIndications:ESRD on peritoneal dialysis ([facility]) Inject under the skin once a week for 4 doses. 5 Each 2 01/18/2024 02/09/2024 Active documented as of this encounter (statuses [...] (Oral) 1981,04/11 Pneumococcal Conjugate Vacci ne, 20-valent ([id number]) 11/17/2022 Seasonal Influenza, PF, 6 M & [...] Telephone Encounter - Sophia Hernandez RN - 01/18/2024 12:54 PM EDT PD nurse spoke to pt to advise that based off of PD anemia protocol an pt May labs pt weekly retacrit dose will be increased to 16,300 units weekly. [facility] Pt verbalized understanding and had no further questions at this time. documented in this encounter Plan of Treatment Upcoming Encounters Date Type Department Care Team (Late st Contact Info) Description 01/31/2024 2:40 PM EDT Office Visit Nutrition & Weight Management, [place] [address] [place] [address] Mary Gonzalez CRNP [address] [place] [address] 02/08/2024 1:00 PM EDT Office Visit Home Dialysis Cl[facility] [address] [place] [address] [place], Peritoneal Dialysis [address] [place] [address] 02/10/2024 8:00 AM EDT Treatment Home Dialysis Clau [address] [place] [address] Nurse, [employer] [place] [address] [address] 03/05/2024 1:00 PM EDT Office Visit Home Dialysis Clau [address] [phone] [facility], Peritoneal Dialysis [address] [place] [address] 03/11/2024 8:00 AM EDT Treatment Home Dialysis Clau [address] [place] [address] [address] Nurse, [employer] [place] [address] [place] [address] 04/11/2024 8:00 AM EDT Treatment Home Dialysis Clau [address] [place] [place] [address] [address] Nurse, [employer] [place] [address] [place] [address] 04/15/2024 1:00 PM EDT Hospital Encounter Radiology, [place] [address] [place], [place] [address] 04/16/2024 11:00 AM EDT Office Visit Transplant Clinic, [address] [address] Gutierrez Monae MD [address] [place] [address] Win Julio MD [address] [place] [address] Araceli Nurse Renal Transplant [address] [place] [address] Chana Robin, BODY BUILDER APPRENTICE [address] [place] [address] 04/16/2024 2:50 PM EDT Laboratory Outpatient Laboratory, [place] [address] [place] [address] [place], Lab B1a [address] [place], [place] [address] 04/17/2024 1:00 PM EDT Appointment Radiology, [place] [address] [place], [place] [address] 04/29/2024 1:00 PM EDT Office Visit Home Dialysis Lance Fernández [place] [address] [place], [place] [phone] [facility], Peritoneal Dialysis [address] [place], [place] [phone] Health Maintenance Due Date Last Done Comments [...] Advance Directives occurred with: Patient Care Teams Manager Development Relationship Specialty Start Date End Date Tomer Garner MD [address] [facility] [place] [address] PCP - General 09/19/02 documented as of this encounter
--- OUTSIDE RECORDS SUMMARY | 2024-03-17 14:19 | External Medical Summary ---
Author Name Unknown Address Unknown Organization [facility] [address] [place] [address] Laboratory Report Ordering Provider Test Date Status MARI BOB 01/17/2024 12:17:30 Final Observation Date Value Abnormality Reference (Units ) Status Hep B surface Ag 01/17/2024 12:17:30 Negative Neg ative Final Performing Location [facility] - [address] [place] [address]
--- OUTSIDE RECORDS SUMMARY | 2024-03-17 14:19 | External Medical Summary | Summary of Care ---
Author Name Unknown Organization [facility] Address [address] [facility] [place] [address] Phone [phone] Care Team Providers Care Ornamental Metalwork Designer Name Role Phone Tomer Garner MD Primary Care Provider [phone] Encounter Details Date Type Department Care Team (Late st Contact Info) Description 01/19/2024 Orders Only Home Dialysis [address] [place] [id number] Sophia Hernandez RN ESRD on peritoneal dialysis (HCC)* Allergies No known active allergiesdocumented as of this encounter (statuses as of 01/19/2024) Medications Medication Sig Dispensed Refills Start Date [...] % External CreamIndications:E SRD on peritoneal dialysis ([facility]) Apply topically to affected area daily. Apply [...] (Insulin Syringe-Needle U-100)Indications: ESRD on peritoneal dialysis ([facility]) Use to inject Retacrit weekly 12 Each [...] the morning. 90 Tablet 12/26/2023 Active Retacrit 78093 UNIT/ML Injection Solution (Epoetin melita-epbx ESRD)Indications:E SRD on peritoneal dialysis ([facility]) Inject 0.82 mL under the skin once a week. 5 mL 0 01/18/2024 03/01/2024 Active Tuberculin-Allergy Syringes 26G X 5/8" 1 MLIndications:ESRD on peritoneal dialysis ([facility]) Inject under the skin once a week for 4 doses. 5 Each 2 01/18/2024 02/09/2024 Active documented as of this encounter (statuses as of 01/19/2024) Active Problems Problem Noted Date Diagnosed Date [...] as of this encounter (statuses as of 01/19/2024) Resolved Problems Problem Noted Date Diagnosed Date [...] as of this encounter (statuses as of 01/19/2024) Immunizations Name Administration Dates Next Due COVID-19 mRNA, LNP-s, No Pre serve, 2-Dose Series (Moderna) 11/23/2020,10/18/2020 DTP Vaccine 1981,1981,1981 HEP B - Hepatitis B (Dialysis/Immumocomp Pt) 05/02/2023,04/04/2023 MMR - Measles/Mumps/Rubella Vaccine 05/11/1982 OPV - Polio Virus Vaccine (Oral) 1981,04/11 Pneumococcal Conjugate Vacci ne, 20-valent ([id number]) 11/17/2022 Seasonal Influenza, PF, 6 M & [...] Nutrition & Weight Management, [place] [address] [place] [address] Mary Gonzalez CRNP [address] [place] [address] 02/08/2024 1:00 PM EDT Office Visit Home Dialysis [facility] [address] [phone] [place], Peritoneal Dialysis [address] [place] [address] 02/10/2024 8:00 AM EDT Treatment Home Dialysis Cl[facility] [address] [phone] NurseLance [address] [place], [place] [address] 03/05/2024 1:00 PM EDT Office Visit Home Dialysis Cl[place] [address] [address] [address] [phone] [facility], Peritoneal Dialysis [address] [place] [address] 03/11/2024 8:00 AM EDT Treatment Home Dialysis Clau [address] Dr Lance [place], [place] [address] Nurse, Lance [facility] Cristal [place], [place] [address] 04/11/2024 8:00 AM EDT Treatment Home Dialysis Nathaniel [place] [address] [place], [place] [address] Nurse, [place] [address] [address] [place], [place] [address] 04/15/2024 1:00 PM EDT Hospital Encounter Radiology, [facility] [address] [place] [address] 04/16/2024 11:00 AM EDT Office Visit Transplant Clinic, [place] [address] [place] [address] Gutierrez Monae MD [address] [place] [address] Win Julio MD [address] [place] [address] Nurse Araceli Renal Transplant [address] [place] [address] Chana Robin LSW [address] [place] [address] 04/16/2024 2:50 PM EDT Laboratory Outpatient Laboratory, [place] [address] [place] [address] [place], Lab B1a [address] [place] [address] 04/17/2024 1:00 PM EDT Appointment Radiology, [place] [address] [place] [address] 04/29/2024 1:00 PM EDT Office Visit Home Dialysis Nathaniel [place] [address] [place], [place] [phone] [place], Peritoneal Dialysis [address] [place] [address] Scheduled Orders Name Type Priority Associated Diagnoses Orde r Schedule HGB Lab Routine ESRD on peritoneal dialysis (HCC) Expected: 2024 (Approximate), Expires: 01/18/2025 PHOS[facility]US Lab Routine ESRD on peritoneal dialysis (HCC) Expected: 2024, Expires: 01/18/2025 Health Maintenance Due Date Last Done Comments [...] Advance Directives occurred with: Patient Care Teams Ornamental Metalwork Designer Relationship Specialty Start Date End Date Tomer Garner MD [address] [place] [address] PCP - General 09/19/02 documented as of this encounter
--- OUTSIDE RECORDS SUMMARY | 2024-03-17 14:19 | External Medical Summary ---
Author Name Unknown Address Unknown Organization [facility] - [address] [place] [address] Laboratory Report Ordering Provider Test Date Status KIMBERLY BOBMUDEZ 01/31/2024 15:21:26 Final Observation Date Value Abnormality Reference (Units ) Status Hemoglobin 01/31/2024 15:21:26 8.7 Below low normal 14 .0-16.8 (g/dL) Final Performing Location [facility] - [address] [place] [address]
--- OUTSIDE RECORDS SUMMARY | 2024-03-17 14:19 | External Medical Summary | Summary of Care ---
Author Name Unknown Organization [facility] Address [address] [place] [address] Phone [phone] Care Team Providers Care Enterprise Systems Administrator Name Role Phone Tomer Garner MD Primary Care Provider [phone] Reason for Visit * Reason Comments Outpatient Testing Encounter Details Date Type Department Care Team ([facility] Contact Info) Description 01/17/2024 10:50 AM EDT Laboratory Lab [facility] [address] [place] [address] [place], Lab [address] [place] [address] 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 chronic kidney disease, [...] morning. 30 Tablet 11 11/21/2023 Active Retacrit 43555 UNIT/ML Injection Solution (Epoetin melita-epbx ESRD) Inject 0.65 mL under the skin once a week. 3 mL 0 12/04/2023 01/18/2024 Active Syringe 21G X 1" 3 ML Retacrit 13.000 U weekly. 12 Each 6 12/04/2023 Active BD Insulin Syringe 25G X 5/8" 1 ML (Insulin Syringe-Needle U-100)Indications: ESRD on peritoneal dialysis ([facility]) Use to inject 13,000 units of Retacrit [...] (Oral) 1981,04/11 Pneumococcal Conjugate Vacci ne, 20-valent ([id number]) 11/17/2022 Seasonal Influenza, PF, 6 M & [...] Visit [facility] [address] [place] [address] Mary Gonzalez CRNP [address] [place] [address] 02/08/2024 1:00 PM EDT Office Visit Home Dialysis Cl[facility] [address] [place] [address] [facility], Peritoneal Dialysis [address] [facility] [place] [address] 02/10/2024 8:00 AM EDT Treatment Home Dialysis Clau [address] [phone] NurseLance [address] 03/05/2024 1:00 PM EDT Office Visit [place] Dialysis [place] [address] [place], [place] [phone] [place], Peritoneal Dialysis [address] [place] [address] 03/11/2024 8:00 AM EDT Treatment Home Dialysis Clau Lucas Dr Lance [place], [place] [phone] Nurse, Lance [address] [employer] [place], [place] 04/11/2024 8:00 AM EDT Treatment Home Dialysis [place] [address] [place], [place] [phone] Nurse, Lance [address] [place] [address] [place], [place] 04/15/2024 1:00 PM EDT Hospital Encounter Radiology, [place] [address] [place], [place] [phone] 04/16/2024 11:00 AM EDT Office Visit Transplant Clinic, [place] [address] [place], [place] [phone] Gutierrez Monae MD [address] [place], [place] Win Julio MD [address] [place], [place] Nurse Araceli Renal Transplant [address] [place] [address] Chana Robin LSW [address] [place], [place] 04/16/2024 2:50 PM EDT Laboratory Outpatient Laboratory, [place] [address] [place] [address] [place], Lab B1a [address] [place] [address] 04/17/2024 1:00 PM EDT Appointment Radiology, [place] [address] [place] [address] 04/29/2024 1:00 PM EDT Office Visit Home Dialysis Lance Fernández, [place] [address] [place] [address] [place], Peritoneal Dialysis [address] [place] [address] Pending Results Name Type Priority Associated Diagnoses Date /Time ALT Lab STAT 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 chronic kidney disease, not on chronic dialysis (HCC) ESRD on peritoneal dialysis ([facility]) 01/17/2024 12:17 PM EDT BUN Lab STAT 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 chronic kidney disease, not on chronic dialysis (HCC) ESRD on peritoneal dialysis ([facility]) 01/17/2024 12:17 PM EDT POTASSIUM Lab STAT 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 chronic kidney disease, not on chronic dialysis (HCC) ESRD on peritoneal dialysis ([facility]) 01/17/2024 12:17 PM EDT HGB Lab STAT 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 chronic kidney disease, not on chronic dialysis (HCC) ESRD on peritoneal dialysis ([facility]) 01/17/2024 12:17 PM EDT IRON SCREEN, INCLUDING TIBC Lab STAT 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 chronic kidney disease, not on chronic dialysis (HCC) ESRD on peritoneal dialysis ([facility]) 01/17/2024 12:17 PM EDT ADJUSTED CALCIUM PHOSPHORUS PRODUCT Lab STAT 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 chronic kidney disease, not on chronic dialysis (HCC) ESRD on peritoneal dialysis ([facility]) 01/17/2024 12:17 PM EDT CREATININE Lab Routine 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 chronic kidney disease, not on chronic dialysis (HCC) ESRD on peritoneal dialysis ([facility]) 01/17/2024 12:17 PM EDT CO2 Lab STAT 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 chronic kidney disease, not on chronic dialysis (HCC) ESRD on peritoneal dialysis ([facility]) 01/17/2024 12:17 PM EDT HEPATITIS B SURFACE ANTIGEN Lab STAT 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 chronic kidney disease, not on chronic dialysis (HCC) ESRD on peritoneal dialysis ([facility]) 01/17/2024 12:17 PM EDT Health Maintenance Due Date Last Done [...] Advance Directives occurred with: Patient Care Teams Enterprise Systems Administrator Relationship Specialty Start Date End Date Tomer Garner MD [address] [place] [address] PCP - General 09/19/02 documented as of this encounter
--- OUTSIDE RECORDS SUMMARY | 2024-03-17 14:19 | External Medical Summary | Summary of Care ---
Author Name Unknown Organization [facility] Address [address] [place] [address] Phone [phone] Care Team Providers Care Utility Gelatin Maker Name Role Phone Tomer Garner MD Primary Care Provider Reason for Referral * Precert (Within 10 days (routine)) - Pending Review Specialty Diagnoses / Procedures Referred By Contac t Referred To Contact Radiology Diagnoses End stage renal disease (HCC) Pre-transplant evaluation for ESRD (end stage renal disease) Procedures NM MYOCARD PERF IMG SPECT MULT STUDIES WITH PHARM Tomer Baker MD [address] [place] [address] Referral ID Status Reason Start Date Expiration Date Visits Requested Visits Authorized [id number] Pending Review Precert 04/12/2024 999 999 Reason for Visit * Reason Onset Date Comments Information 12/28/2023May 04 Encounter Details Date Type Department Care Team (Late st Contact Info) Description [facility] [address], [place] [phone] Bernie Her, RN Formerly named [facility] [place] [id number] Information (May 04) Allergies No known active allergiesdocumented as of [...] on 12/04/2023 Gentamicin Sulfate 0.1 % External CreamIndications: ESRD [...] 6 12/20/2023 Active Lovastatin 10 MG Oral TabletIndications [...] morning. 90 Tablet 6 12/26/2023 Active Retacrit 72844 UNIT/ML Injection Solution (Epoetin melita-epbx ESRD) Inject 0.65 mL under the skin once a week. 3 mL 12/04/2023 01/18/2024 documented as of this encounter (statuses as [...] (Oral) 1980,04/11 Pneumococcal Conjugate Vacci ne, 20-valent ([id number]) 11/17/2022 Seasonal Influenza, PF, 6 M & [...] money to buy more. Never true 11/03/19 Within the past 12 months, t he [...] Telephone Encounter - Bernie Her RN - 12/28/2023 11:16 AM EDT Patient is due in May 04 for his annual with transplant. Will need labs and to be see with a surgeon appt to check weight. Also a NM stress test is due in 05/04 and will review with cardiology. Bernie Her, RN documented in this encounter Plan of Treatment Upcoming Encounters Date Type Department Care Team (Late st Contact Info) Description 01/31/2024 2:40 PM EDT Office Visit Nutrition & Weight Management, [place] [address] [place] [address] Mary Gonzalez CRNP [address] [place], [place] [phone] 02/08/2024 1:00 PM EDT Office Visit Home Dialysis [address] [id number] Mdc, Peritoneal Dialysis [address] [place] [address] 02/10/2024 8:00 AM EDT Treatment Home Dialysis [facility] [address] [place] [address] Nurse, [employer] [facility] [address] [place] [address] 03/05/2024 1:00 PM EDT Office Visit Home Dialysis [facility] [address] [place] [address] Mdc, Peritoneal Dialysis [address] [place] [address] 03/11/2024 8:00 AM EDT Treatment Home Dialysis [facility] [address] [place] [address] [address] Nurse, [employer] [facility] [address] [place] [address] 04/11/2024 8:00 AM EDT Treatment Home Dialysis [facility] [address] [place] [address] Nurse, [employer] [facility] [address] [place] [address] [address] 04/15/2024 1:00 PM EDT Hospital Encounter Radiology, [place] [address] [place] [address] 04/16/2024 11:00 AM EDT Office Visit Transplant Clinic, [place] [address], [place] [phone] Gutierrez Monae MD [address] [place] [address] Win Julio MD [address] [place] [address] Nurse [facility] [address], [place] [phone] Chana Robin LSW [address] [place], [place] [phone] 04/16/2024 2:50 PM EDT Laboratory Outpatient Laboratory, [address] [address] [place], Lab B1a [address], [place] [phone] 04/17/2024 1:00 PM EDT Appointment Radiology, [address] [address] 04/29/2024 1:00 PM EDT Office Visit Home Dialysis [address], [place] [address] [place], [place] [phone] Mdc, Peritoneal Dialysis [address], [place] [phone] Scheduled Orders Name Type Priority Associated Diagnoses Orde r Schedule QUANTIFERON TB GOLD PLUS Lab STAT End stage renal disease (HCC) Pre-transplant evaluation for ESRD (end stage renal disease) Expected: 04/15/2024 (Approximate), Expires: 12/19/2024 HIV ANTIGEN & ANTIBODY SCREEN W/ CONFIRMATION Lab STAT End stage renal disease (HCC) Pre-transplant evaluation for ESRD (end stage renal disease) Expected: 04/15/2024 (Approximate), Expires: 12/19/2024 RPR Lab STAT End stage renal disease (HCC) Pre-transplant evaluation for ESRD (end stage renal disease) Expected: 04/15/2024 (Approximate), Expires: 12/19/2024 HEPATITIS B SURFACE ANTIGEN Lab STAT End stage renal disease (HCC) Pre-transplant evaluation for ESRD (end stage renal disease) Expected: 04/15/2024 (Approximate), Expires: 12/19/2024 HEPATITIS B SURFACE ANTIBODY Lab STAT End stage renal disease (HCC) Pre-transplant evaluation for ESRD (end stage renal disease) Expected: 04/15/2024 (Approximate), Expires: 12/19/2024 HEPATITIS B CORE ANTIBODIES IGG AND IGM Lab STAT End stage renal disease (HCC) Pre-transplant evaluation for ESRD (end stage renal disease) Expected: 04/15/2024 (Approximate), Expires: 12/19/2024 HEPATITIS C ANTIBODY SCREEN WITH PROGRESSION TO HEPATITIS C RNA QUANTITATIVE Lab STAT End stage renal disease (HCC) Pre-transplant evaluation for ESRD (end stage renal disease) Expected: 04/15/2024 (Approximate), Expires: 12/19/2024 COMPREHENSIVE METABOLIC PANEL Lab STAT End stage renal disease (HCC) Pre-transplant evaluation for ESRD (end stage renal disease) Expected: 04/15/2024 (Approximate), Expires: 12/19/2024 MONTHLY HLA CLASS 1 & 2 W/REFLEX, SOLID ORGAN TRANSPLANT Lab STAT End stage renal disease (HCC) Pre-transplant evaluation for ESRD (end stage renal disease) Expected: 04/15/2024 (Approximate), Expires: 12/19/2024 PTH Lab STAT End stage renal disease (HCC) Pre-transplant evaluation for ESRD (end stage renal disease) Expected: 04/15/2024 (Approximate), Expires: 12/19/2024 NM MYOCARD PERF IMG SPECT MULT STUDIES WITH PHARM INTERV Cardiology Routine End stage renal disease (HCC) Pre-transplant evaluation for ESRD (end stage renal disease) Expected: 04/12/2024, Expires: 01/26/2025 HEMOGLOBIN A1C Lab STAT End stage renal disease (HCC) Pre-transplant evaluation for ESRD (end stage renal disease) Expected: 04/15/2024 (Approximate), Expires: 12/19/2024 Health Maintenance Due Date Last Done Comments [...] as of this encounter Visit Diagnoses Diagnosis End stage renal disease (HCC)- Primary End stage renal disease Pre-transplant evaluation for ESRD (end stage renal disease) Other specified pre-operative examination documented in this encounter Advance Directives * [...] Advance Directives occurred with: Patient Care Teams Utility Gelatin Maker Relationship Specialty Start Date End Date Tomer Garner MD [address] [facility] [place] [address] PCP - General 09/19/02 documented as of this encounter
--- OUTSIDE RECORDS SUMMARY | 2024-03-17 14:20 | External Medical Summary | Summary of Care ---
Author Name Unknown Organization [facility] Address [address] [place] [address] Phone [phone] Care Team Providers Care Sheep Farmer Name Role Phone Tomer Garner MD Primary Care Provider Reason for Referral * Evaluate & Treat - Unlimited Visits (Within 10 days (routine)) - Authorized Specialty Diagnoses / Procedures Referred By Contac t Referred To Contact Dietitian / Nutrition Services Diagnoses Obesity due to excess calories, unspecified classification, unspecified whether serious comorbidity present Akosua Lopez MD [address] [place] [address] Referral ID Status Reason Start Date Expiration Date Visits Requested Visits Authorized [id number] Authorized Specialty Services Required 12/26/2023 999 999 Question Answer Referral Priority Within 10 days (routine) Where should this appointment be scheduled? [facility] What condition is the patient being seen for? Weight Reduction/Excessive Weight Gain Comments Medical Nutrition Therapy Encounter Details Date Type Department Care Team (Late st Contact Info) Description 12/26/2023 1:00 PM EDT Office Visit Home Dialysis [facility] [address] [place] [address] [address] Mdc, Peritoneal Dialysis [address] [place] [address] ESRD on peritoneal dialysis (HCC)*; Acquired hypothyroidism; Obesity due to excess calories, unspecified classification, unspecified whether serious comorbidity present Allergies No known active allergiesdocumented as of this encounter (statuses as of 01/16/2024) Medications Medication Sig Dispensed Refills Start Date [...] morning. 30 Tablet 11 11/21/2023 Active Retacrit 04204 UNIT/ML Injection Solution (Epoetin melita-epbx ESRD) Inject 0.65 mL under the skin once a week. 3 mL 0 12/04/2023 Active Syringe 21G X 1" 3 ML Retacrit 13.000 U weekly. 12 Each 6 12/04/2023 Active BD Insulin Syringe 25G X 5/8" 1 ML (Insulin Syringe-Needle U-100)Indications :ESRD on peritoneal dialysis (HCC) Use to inject 13,000 units of Retacrit weekly 12 Each 12/20/2023 Active Lovastatin [...] the morning. 90 Tablet 6 12/26/2023 Active Cinacalcet HCl 30 MG Oral Tablet (Sensipar) Take 1 Tablet by mouth in the morning. 90 Tablet 3 11/29/2023 4 Discontinue d(Refill) Hospital, Clinic, or Other Facility Administered Medication Ordered Dose Route Frequency Start Date End Date Status Epoetin Melita-epbx (Retacrit) 14720 UNIT/ML inj 13,000 UnitsIndications:ESRD on peritoneal dialysis (HCC) 30258 Units SC ONCE 12/26/2023 4 Ended documented as of this encounter (statuses as of 01/16/2024) Active Problems Problem Noted Date Diagnosed Date [...] as of this encounter (statuses as of 01/16/2024) Resolved Problems Problem Noted Date Diagnosed Date [...] as of this encounter (statuses as of 01/16/2024) Immunizations Name Administration Dates Next Due COVID-19 mRNA, LNP-s, No Pre serve, 2-Dose Series (Moderna) 11/23/2020,10/18/2020 DTP Vaccine 1981,1981,1981 HEP B - Hepatitis B (Dialysis/Immumocom[facility] Pt) 05/02/2023,04/04/2023 MMR - Measles/Mumps/Rubella Vaccine 05/11/1982 OPV - Polio Virus Vaccine (Oral) 1981,04/11 Pneumococcal Conjugate Vacci ne, 20-valent ([id number]) 11/17/2022 Seasonal Influenza, PF, 6 M & [...] Sign Reading Time Taken Comments Blood Pressure 133/69 12/26/2023 1:01 PM EDT Pulse 88 12/26/2023 1:01 PM EDT Temperature 36.9 C (98.4 F) 12/26/2023 1:01 PM ED T Respiratory Rate 18 12/26/2023 1:01 PM EDT Oxygen Saturation 98% 12/26/2023 1:01 PM EDT Inhaled Oxygen Concentration - - Weight 131.7 kg (290 lb 4.8 oz) 12/26/2023 1:01 PM EDT Height - - Body Mass Index 41.65 10/28/2023 6:10 PM EST documented in this encounter Functional [...] Progress Notes * Akosua Lopez MD - 12/27/2023 10:19 AM EDT NEPHROLOGY CLINIC NOTE Home Dialysis [address] [place] [address] 12/27/2023, 10:20 AM Patient Name: Chandan Donato REASON FOR VISIT/ CHIEF COMPLAINT: No chief complaint on file. 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 N25.89 Bacterial pneumonia J15.9 Encounter for long-term (current) use of medications Z79.899 Kidney replaced by transplant Z94.0 Hypertension I10 ADVANCE DIRECTIVE INFORMATION Dyslipidemia, goal LDL below 160 E78.5 Gouty arthropathy M10.9 ULICES (acute kidney injury) ([facility]) N17.9 Bandemia D72.825 Metabolic acidosis E87.20 Hypokalemia E87.6 Body mass index (BMI) of 40.0 to 44.9 in adult ([facility]) Z68.41 ESRD on peritoneal dialysis ([facility]) N18.6, Z99.2 Anemia of chronic renal failure, stage 5 ([facility]) N18.5, D63.1 Anemia in chronic renal disease N18.9, D63.1 Dialysis-associated peritonitis ([facility]) T85.71XA Shock ([facility]) R57.9 Hypovolemia E86.1 Orthostatic hypotension I95.1 Stenosis of other vascular prosthetic devices, implants and grafts, initial encounter ([facility]) T82.858A Dependence on renal dialysis ([facility]) Z99.2 Diastolic congestive heart failure ([facility]) I50.30 Immunosuppression ([facility]) D84.9 Hypertensive chronic kidney disease with stage 5 chronic kidney disease or end stage renal disease ([facility]) I12.0 End stage renal disease ([facility]) N18.6 Chronic gout without tophus M1A.9XX0 Baldo's granulomatosis with renal involvement ([facility]) M31.31 HPI/ running narrative: 43 year oldmale here [...] mouth in the morning. 30 Tablet 11 Retacrit 59752 UNIT/ML Injection Solution (Epoetin melita-epbx ESRD) Inject 0.65 mL under the skin once a week. 3 mL 0 Syringe 21G X 1" 3 ML Retacrit 13.000 U weekly. 12 Each 6 BD Insulin Syringe 25G X 5/8" 1 ML (Insulin Syringe-Needle U-100) Use to inject 13,000 units of Retacrit weekly 12 Each 6 Lovastatin 10 [...] mouth in the morning. 90 Tablet 6 Folic Acid 1 MG Oral Tablet Take 1 Tablet by mouth in the morning. (Patient not taking: Reported on11/03/2023) 90 Tablet 1 Docusate Sodium 100 MG Oral Capsule (Colace) Take 1 Capsule by mouth in the morning and 1 Capsule before bedtime. (Patient not taking: Reported on 12/26/2023) oxyCODONE HCl 5 MG Oral Capsule (Oxy IR) Take 1 Capsule by mouth every 4 hours as needed for Pain, Severe. (Patient not taking: Reported on 12/04/2023) 12 Capsule 0 No current facility-administered medications for this visit. Review of patient's allergies indicates: No Known Allergies PHYSICAL EXAMINATION: Filed Vitals: 12/26/23 1301 BP: 133/69 Pulse: 88 Resp: 18 Temp: 36.9 C (98.4 F) TempSrc: Tympanic SpO2: 98% Weight: 131.7 kg (290 lb 4.8 oz) 11/07/2023 11/23/2023 12/04/2023 12/22/2023 12/26/2023 BP [...] management: Lab Results Component Value Date HGB 8.4 (L) 12/18/2023 HGB 9.9 (L) 10/29/2023 HGB 13.0 (L) 10/07/2020 HGB 7.8 (L) 12/27/1996 FERRITIN 729.8 12/16/1996 FERRITIN - [facility] 1,046 (H) 12/18/2023 FERRITIN - [facility] 51.7 08/11/2010 TRANSFERRIN SATURATION PERCENT - [facility] 42 12/18/2023 TRANSFERRIN SATURATION PERCENT - [facility] 33 08/11/2010 Mineral bone disorder: Lab Results Component Value Date/Time PTH 836 (H) 12/18/2023 02:37 PM PTH 361 (H) 12/07/2017 12:10 PM PTH 80.1 (H) 12/23/1996 08:08 AM CALCIUM 9.2 12/18/2023 02:37 PM PHOSPHORUS 12.2 (H) 12/18/2023 02:37 PM PHOSPHORUS 4.4 10/07/2020 02:34 PM Hypertension: Average home BP: 120/70 Transplant status: Active Last transplant committee decision: Remain Active Nutrition: Lab Results Component Value Date/Time POTASSIUM 4.0 12/18/2023 02:37 PM POTASSIUM 4.0 10/07/2020 02:34 PM POTASSIUM 5.3 (H) 12/27/1996 08:57 AM ALBUMIN 4.4 12/18/2023 02:37 PM ALBUMIN 4.6 10/07/2020 02:34 PM ALBUMIN 4.2 12/23/1996 08:08 AM Acid-base staus: Lab Results Component Value Date/Time CO2 20 (L) 12/18/2023 02:37 PM CO2 22 11/27/2023 03:28 PM CO2 25 10/07/2020 02:34 PM CO2 26 08/20/2020 02:38 PM CO2 24.4 12/27/1996 08:57 AM CO2 23.8 (L) 12/26/1996 09:15 AM We appreciate the opportunity of participating in Mr. Donato's care. Will continue to see in follow up in Peritoneal Dialysis clinic This chart was completed in part utilizing [employer] Speech Voice Recognition Software. Randomword insertions, pronoun errors, and incomplete sentences are an occasional consequence of this system due to software limitations, and ambient noise. Any questions or concerns about the content, text, or information contained within the body of this dictation should be directly addressed to the provider for clarification. Akosua Lopez MD * Sophia Hernandez RN - 12/26/2023 1:20 PM EDT Images from the original note were not included. Peritoneal Dialysis IDT and Osteo review. Dr. Lopez harness cleaner , Nancy Tolbert SW, Cathy Wang RDT, and Sophia Hernandez RN [...] this month. Yes All questions were answered. New or recurrent malignancy? none reported Adjusted Procrit: no Pain w/exchanges no Patient brought records from home yes Home record scanned into nursing notes? Yes Blood pressure's at home 133/69 Verified Transfer Set connection and reviewed with patient: Yes Exit site clean and dry with no redness or drainage Signs and symptoms of [...] (%): None Estimated Dry Weight (kg): 129 average nightly UF 3800 ml in 24 hrs Last [facility] 12/02 Kt/V 1.55 Transplant status active Reviewed process for ordering monthly dialysis supplies using the calendar provided: yes Reviewed contact phone numbers for the Peritoneal Dialysis supply company as well as the Dialysis clinic and the on-call nurse via the hospital rounding and backing machine operator: yes Questions no questions at this time. * Karrie Russo TECH - 12/26/2023 1:06 PM EDT Patient was instructed to not get up on the exam table/exam chair until directed and assisted by their provider; patient is to remain seated in the chair/ wheelchair/ exam table/ exam chair for fall prevention and safety reasons. Patient is aware to have assistance to step down off exam table/exam chair with personnel. Patient voiced full comprehension of instructions. documented in this encounter Plan of Treatment Upcoming Encounters Date Type Department Care Team (Late st Contact Info) Description 01/31/2024 2:40 PM EDT Office Visit Nutrition & Weight Management, [place] [address] [place], [place] [phone] Mary Gonzalez CRNP [address] [place], [place] [phone] 02/08/2024 1:00 PM EDT Office Visit Home Dialysis [address] [id number] Mdc, Peritoneal Dialysis [address] [place] [address] 02/10/2024 8:00 AM EDT Treatment Home Dialysis [address] [place] [address] Nurse, [facility] [address] [place] [address] 03/05/2024 1:00 PM EDT Office Visit Home Dialysis [address] [place] [address] [address] [facility], Peritoneal Dialysis [address] [place] [address] 03/11/2024 8:00 AM EDT Treatment Home Dialysis [address] [place] [address] Nurse, [facility] [address] [place] [address] 04/11/2024 8:00 AM EDT Treatment Home Dialysis [address] [phone] Nurse, [facility] [address] [place] [address] [address] 04/15/2024 1:00 PM EDT Hospital Encounter Radiology, [place] [address] [place] [address] 04/16/2024 11:00 AM EDT Office Visit Transplant Clinic, [place] [address] [place] [address] Gutierrez Monae MD [facility] [place] [address] Win Julio MD [address] [place] [address] Nurse [facility] [place] [address] [place], [place] [phone] Chana Robin LSW [address] [place], [place] [phone] 04/16/2024 2:50 PM EDT Laboratory Outpatient Laboratory, [address] [address] [place], Lab B1a [address] [place], [place] [phone] 04/17/2024 1:00 PM EDT Appointment Radiology, [address] [address] 04/29/2024 1:00 PM EDT Office Visit Home Dialysis [address], [place] [address] [address] [place], [place] [phone] Mdc, Peritoneal Dialysis [address] [place] [address] Scheduled Orders Name Type Priority Associated Diagnoses Orde r Schedule HGB Lab Routine ESRD on peritoneal dialysis (HCC) Expected: 12/26/2023, Expires: 12/25/2024 HCT Lab Routine ESRD on peritoneal dialysis (HCC) Expected: 12/26/2023, Expires: 12/25/2024 TSH WITH FREE T4 IF INDICATED Lab Routine ESRD on peritoneal dialysis (HCC) Expected: 12/26/2023, Expires: 12/25/2024 Scheduled Referrals Name Type Priority Associated Diagnoses Orde r Schedule NUTRITION-CLINICAL DIETITIAN REFERRAL OP Referral Within 10 days (routine) Obesity due to excess calories, unspecified classification, unspecified whether serious comorbidity present Ordered: 12/26/2023 Health Maintenance Due Date Last Done Comments [...] dialysis (HCC)- Primary End stage renal disease Acquired hypothyroidism Unspecified hypothyroidism Obesity due to excess calories, unspecified classification, unspecified whether serious comorbidity present documented in this encounter Advance Directives Latest [...] Code 08/21/2023 3:00 PM 08/21/2023 11:14 PM T his order reflects the patients wishes and were [...] Advance Directives occurred with: Patient Care Teams Sheep Farmer Relationship Specialty Start Date End Date Tomer Garner MD [address] [place] [address] PCP - General 09/19/02 documented as of this encounter
--- OUTSIDE RECORDS SUMMARY | 2024-03-17 14:20 | External Medical Summary | Summary of Care ---
Author Name Unknown Organization [facility] Address [address] [facility] [place] [address] Phone [phone] Care Team Providers Care Fibreglass Gun Hand Name Role Phone Tomer Garner MD Primary Care Provider Encounter Details Date Type Department Care Team (Late st Contact Info) Description 01/13/2024 Orders Only PATIENT PORTAL DO NOT DELETE THIS DEPT USED BY [place] FI[place] [address] Allergies No known active allergiesdocumented as of this encounter (statuses as of 01/13/2024) Medications Medication Sig Dispensed Refills Start Date [...] % External CreamIndications:E SRD on peritoneal dialysis ([facility]) Apply topically to affected area daily. Apply to PD exit catheter site daily after showering and cover with bandage 15 g 2 09/08/2023 Active Dialyvite Oral Tablet Take 1 Tablet by mouth in the morning. 30 Tablet 11 09/28/2023 Active Losartan Potassium 50 MG Oral Tablet (Cozaar) Take 1 Tablet by mouth in the morning. 30 Tablet 11 11/21/2023 Active Retacrit 53103 UNIT/ML Injection Solution (Epoetin melita-epbx ESRD) Inject 0.65 mL under the skin once a week. 3 mL 0 12/04/2023 01/18/2024 Active Syringe 21G X 1" 3 ML Retacrit 13.000 U weekly. 12 Each 12/04/2023 Active BD Insulin Syringe 25G X 5/8" 1 ML (Insulin Syringe-Needle U-100)Indications: ESRD on peritoneal dialysis ([facility]) Use to inject 13,000 units of Retacrit [...] as of this encounter (statuses as of 01/13/2024) Active Problems Problem Noted Date Diagnosed Date [...] as of this encounter (statuses as of 01/13/2024) Resolved Problems Problem Noted Date Diagnosed Date [...] as of this encounter (statuses as of 01/13/2024) Immunizations Name Administration Dates Next Due COVID-19 mRNA, LNP-s, No Pre serve, 2-Dose Series (Moderna) 11/23/2020,10/18/2020 DTP Vaccine 1981,1981,1981 HEP B - Hepatitis B (Dialysis/Immumocomp Pt) 05/02/2023,04/04/2023 MMR - Measles/Mumps/Rubella Vaccine 05/11/1982 OPV - Polio Virus Vaccine (Oral) 1981,04/11 Pneumococcal Conjugate Vacci ne, 20-valent ([id number]) 11/17/2022 Seasonal Influenza, PF, 6 M & [...] Visit [facility] [address] [facility] [place] [address] Mary Gonzalez CRNP [address] [facility] [place] [address] 02/08/2024 1:00 PM EDT Office Visit Home Dialysis Clau [address] [phone] [facility], Peritoneal Dialysis [address] [facility] [place] [address] 02/10/2024 8:00 AM EDT Treatment Home Dialysis Clau [address] [place] [address] [address] [address] [place] [address] 03/05/2024 1:00 PM EDT Office Visit Home Dialysis Clau [address] [phone] [facility], Peritoneal Dialysis [address] [place] [address] 03/11/2024 8:00 AM EDT Treatment Home Dialysis Lance Fernández [place] [address] [place] [address] Nurse, Lance [address] [place] [address] 04/11/2024 8:00 AM EDT Treatment Home Dialysis Hao [address] [place], [place] [phone] Nurse, Lance Drive [address] [place], [place] [address] 04/15/2024 1:00 PM EDT Hospital Encounter Radiology, [place] [address] [place] [address] 04/16/2024 11:00 AM EDT Office Visit Transplant Clinic, [place] [address] [place] [address] Gutierrez Monae MD [address] [place] [address] Win Julio MD [address] [place] [address] Nurse Araceli Renal Transplant [address] [place] [address] Chana Robin LSW [address] [place] [address] 04/16/2024 2:50 PM EDT Laboratory Outpatient Laboratory, [address] [phone] [place], Lab B1a [address] [place] [address] 04/17/2024 1:00 PM EDT Appointment Radiology, [place] [address] [place] [address] 04/29/2024 1:00 PM EDT Office Visit Home Dialysis Clau [address] [place] [address] [facility], Peritoneal Dialysis [address] [facility] [place] [address] Health Maintenance Due Date Last Done [...] Advance Directives occurred with: Patient Care Teams Fibreglass Gun Hand Relationship Specialty Start Date End Date Tomer Garner MD [address] [facility] [place] [address] PCP - General 09/19/02 documented as of this encounter
--- OUTSIDE RECORDS SUMMARY | 2024-03-17 14:20 | External Medical Summary | Summary of Care ---
Author Name Unknown Organization [facility] Address [address] [place] [address] Phone [phone] Care Team Providers Care Halftone Operator Name Role Phone Tomer Garner MD Primary Care Provider Encounter Details Date Type Department Care Team (Late st Contact Info) Description 11/29/2023 Documentation Home Dialysis [address]iel [address] [place] [address] Akosua Lopez MD [address] [place] [address] Allergies No known active allergiesdocumented as of this encounter (statuses as of 12/29/2023) Medications Medication Sig Dispensed Refills Start Date [...] 1 Capsule before bedtime. 0 08/21/2023 Active oxyCODONE HCl 5 MG Oral Capsule [...] Additional Information Patient not taking.Reported on 12/04/2023 Lovastatin 10 MG Oral TabletIndications :Kidney replaced by transplant Take 1 Tablet by mouth in the morning. 90 Tablet 3 09/28/2022 4 Discontinue d(Refill) cycloSPORINE Modified 25 MG Oral CapsuleIndication s:Kidney replaced by transplant Take 2 capsules in the morning and 2 capsules in the evening 360 Capsule 3 12/02/2022 4 Discontinue d(Refill) documented as of this encounter (statuses as of 12/29/2023) Active Problems Problem Noted Date Diagnosed Date [...] as of this encounter (statuses as of 12/29/2023) Resolved Problems Problem Noted Date Diagnosed Date [...] as of this encounter (statuses as of 12/29/2023) Immunizations Name Administration Dates Next Due COVID-19 mRNA, LNP-s, No Pre serve, 2-Dose Series (Moderna) 11/23/2020,10/18/2020 DTP Vaccine 1981,1981,1981 HEP B - Hepatitis B (Dialysis/Immumocomp Pt) 05/02/2023,04/04/2023 MMR - Measles/Mumps/Rubella Vaccine 05/11/1982 OPV - Polio Virus Vaccine (Oral) 1981,04/11 Pneumococcal Conjugate Vacci ne, 20-valent ([id number]) 11/17/2022 Seasonal Influenza, PF, 6 M & [...] Care Team (Late st Contact Info) Description 01/10/2024 8:00 AM EDT Treatment Home Dialysis Hamzah [address] [phone] NurseLance [address] [place] [address] 02/08/2024 1:00 PM EDT Office Visit Home Dialysis Hamzah [address] [place] [address] [address] [address] [facility], Peritoneal Dialysis [address] [facility] [place] [address] 02/10/2024 8:00 AM EDT Treatment Home Dialysis Hamzah [address] [place] [address] Nurse, Lance Bee [address] [place] [address] 03/05/2024 1:00 PM EDT Office Visit Home Dialysis Hamzah Lucas [address] [place] [address] [facility], Peritoneal Dialysis [address] [facility] [place], [place] [address] 03/11/2024 8:00 AM EDT Treatment Home Dialysis Hamzah [address] [place] [address] [address]ance [address] [place] [address] 04/11/2024 8:00 AM EDT Treatment Home Dialysis Hamzah Lucas [address] [place] [address] Nurse, Lance Bee [address] [place], [place] 04/15/2024 1:30 PM EDT Appointment Radiology, [place] [address] [place] [address] 04/16/2024 11:00 AM EDT Office Visit Transplant Clinic, [place] [address] [place] [address] Gutierrez Monae MD [address] [place] [address] Win Julio MD [address] [place], [place] Nurse Araceli Renal Transplant [address] [place] [address] Chana Robin LSW [address] [place] [address] 04/17/2024 1:30 PM EDT Appointment Radiology, [address] [address] 04/29/2024 1:00 PM EDT Office Visit Home Dialysis Hamzah [address] [place], [place] [address] M[facility], Peritoneal Dialysis [address] [place] [address] 05/12/2024 8:00 AM EDT Treatment Home Dialysis Hamzah [address] [place], [place] [phone] Nurse, Lance Bee [address] [place], [place] 06/07/2024 1:00 PM EDT Office Visit Home Dialysis Hamzah [address] Dr [address] [place], [place] [phone] Mdc, Peritoneal Dialysis [address] [place] [address] 06/11/2024 8:00 AM EDT Treatment Home Dialysis Hamzah [address] [place], [place] [address] Nurse, [employer] [place] [address] [place], [place] [address] 06/25/2024 1:00 PM EDT Office Visit Home Dialysis Hamzah [address] [place], [place] [address] [facility], Peritoneal Dialysis [address] [facility] [place] [address] 07/12/2024 8:00 AM EDT Treatment Home Dialysis Hamzah [address] [place], [place] [address] Nurse, [employer] [address] [address] [place], [place] [address] 07/22/2024 1:00 PM EST Office Visit Home Dialysis Hamzah [address] [place], [place] [address] [facility], Peritoneal Dialysis [address] [place], [place] [address] 08/11/2024 8:00 AM EST Treatment Home Dialysis Hamzah [address] [place], [place] [address] Nurse, [employer] Crist[address] [place], [place] [address] 08/20/2024 1:00 PM EST Office Visit Home Dialysis Hamzah [address] [place], [place] [address] [facility], Peritoneal Dialysis [address] [facility] [place] [id number] Health Maintenance Due Date Last Done Comments [...] Advance Directives occurred with: Patient Care Teams Halftone Operator Relationship Specialty Start Date End Date Tomer Garner MD [address] [facility] PCP - General 09/19/02 documented as of this encounter
--- OUTSIDE RECORDS SUMMARY | 2024-03-17 14:20 | External Medical Summary ---
Author Name Unknown Address Unknown Organization K01:LABORATORY [facility] [place] - [address] [place] [address] Laboratory Report Ordering Provider Test Date Status MARI BOB 01/17/2024 12:17:30 Final Observation Date Value Abnormality Reference (Units ) Status Potassium 01/17/2024 12:17:30 3.8 3.5-5.1 (m mol/L) Final Performing Location LABORATORY C - [address] [place] [address]
--- OUTSIDE RECORDS SUMMARY | 2024-03-17 14:20 | External Medical Summary | Summary of Care ---
Author Name Unknown Organization [facility] Address [address] [place] [address] Phone [phone] Care Team Providers Care Mathematical Physicist Name Role Phone Tomer Garner MD Primary Care Provider Reason for Visit * Reason Onset Date Comments Precert In Process 01/01/2024 22 CHATO MARIN P Auryxia 1 GM 210 MG (FE) Encounter Details Date Type Department Care Team (Late st Contact Info) Description 01/01/2024 Telephone Hemodialysis Lance Fernández [place] [address] [place] [address] Akosua Lopez MD [address] [place] [address] Precert In Process ( [facility] Auryx... Allergies No known active allergiesdocumented as of this encounter (statuses as of 01/01/2024) Medications Medication Sig Dispensed Refills Start Date [...] % External CreamIndications:E SRD on peritoneal dialysis ([facility]) Apply topically to affected area daily. Apply to PD exit catheter site daily after showering and cover with bandage 15 g 2 09/08/2023 Active Dialyvite Oral Tablet Take 1 Tablet by mouth in the morning. 30 Tablet 11 09/28/2023 Active Losartan Potassium 50 MG Oral Tablet (Cozaar) Take 1 Tablet by mouth in the morning. 30 Tablet 11 11/21/2023 Active Retacrit 35645 UNIT/ML Injection Solution (Epoetin melita-epbx ESRD) Inject 0.65 mL under the skin once a week. 3 mL 0 12/04/2023 01/18/2024 Active Syringe 21G X 1" 3 ML Retacrit 13.000 U weekly. 12 Each 6 12/04/2023 Active BD Insulin Syringe 25G X 5/8" 1 ML (Insulin Syringe-Needle U-100)Indications: ESRD on peritoneal dialysis ([facility]) Use to inject 13,000 units of Retacrit [...] as of this encounter (statuses as of 01/01/2024) Active Problems Problem Noted Date Diagnosed Date [...] as of this encounter (statuses as of 01/01/2024) Resolved Problems Problem Noted Date Diagnosed Date [...] as of this encounter (statuses as of 01/01/2024) Immunizations Name Administration Dates Next Due COVID-19 mRNA, LNP-s, No Pre serve, 2-Dose Series (Moderna) 11/23/2020,10/18/2020 DTP Vaccine 1981,1981,1981 HEP B - Hepatitis B (Dialysis/Immumocomp Pt) 05/02/2023,04/04/2023 MMR - Measles/Mumps/Rubella Vaccine 05/11/1982 OPV - Polio Virus Vaccine (Oral) 1981,04/11 Pneumococcal Conjugate Vacci ne, 20-valent ([id number]) 11/17/2022 Pneumococcal Polysaccharide PPV23 (Pneumovax) 02/03/2004 Seasonal Influenza, PF, 6 M & above, IM , (FluLaval or Fluzone) 06/20/2023,06/24/2020 Seasonal Influenza, Quadriva lent Hd (Fluzone Hd) 06/24/2021 Seasonal Influenza, Split, I IV3, With Preserve, Inj 09/10/2012,08/11/2010,07/30/2007,07/19,06/26/2002 TDAP (age 10 and older)(Boostrix) 03/17/2020 TDAP [...] encounter Miscellaneous Notes * Telephone Encounter - Nancy Tolbert LSW - 01/01/2024 9:57 AM EDT Nephrology Medicine Pre-Cert Request Medication/Disease State Information: Medication: Auryxia 1 GM 210 MG (FE) Diagnosis (including ICD-10): Hyperphosphatemia ICD 10 E83.30 Medication(s) Tried/Failed/Contraindicated: Hyperphosphatemia despite compliance with calcium acetate See corresponding visit note(s) for additional supporting clinical information. Office Information: Prescriber: Akosua Lopez MD documented in this encounter Plan of Treatment Upcoming Encounters Date Type Department Care Team (Late st Contact Info) Description 01/10/2024 8:00 AM EDT Treatment Home Dialysis Hamzah [address] [place] [address] Nurse, Lance Bee [address] [place] [address] 02/08/2024 1:00 PM EDT Office Visit Home Dialysis [place] [address] [facility], Peritoneal Dialysis [address] [place] [address] 02/10/2024 8:00 AM EDT Treatment Home Dialysis Hamzah [address] [place] [address] Nurse, Lance Bee [address] [place] [address] 03/05/2024 1:00 PM EDT Office Visit Home Dialysis Hamzah Lucas [address] [place] [address] [address] [facility] Dialysis [address] [place] [facility] [place] [address] 03/11/2024 8:00 AM EDT Treatment Home Dialysis Hamzah Lucas Dr [address] [place], [place] [address] Nurse, [place] [address] 04/11/2024 8:00 AM EDT Treatment Home Dialysis Hamzah Lucas [address] [place] [address] Nurse, [place] [address] 04/15/2024 1:00 PM EDT Hospital Encounter Radiology, [place] [address] [place] [address] 04/16/2024 11:00 AM EDT Office Visit Transplant Clinic, [place] [address] [place] [address] Gutierrez Monae MD [address] [place] [address] Win Julio MD [address] [place] [address] Araceli Nurse Renal Transplant [address] [place] [address] Chana Robin LSW [address] [place] [address] 04/17/2024 1:00 PM EDT Appointment [facility], [place] [address] [place] [address] 04/29/2024 1:00 PM EDT Office Visit Home Dialysis Hamzah [address] [place], [place] [phone] [facility]itoneal Dialysis [address] [place] [address] 05/12/2024 8:00 AM EDT Treatment Home Dialysis Hamzah [address] [place], [place] [phone] Nurse, [employer] [address] [place], [place] 06/07/2024 1:00 PM EDT Office Visit Home Dialysis Hamzah Lucas Dr [address] [phone] [facility] Peritoneal Dialysis [address] [place] [address] 06/11/2024 8:00 AM EDT Treatment Home Dialysis Hamzah Lucas Dr [address] [phone] Nurse, [employer] [address] [place] [address] 06/25/2024 1:00 PM EDT Office Visit Home Dialysis Hamzah [address] [place], [place] [address] [facility] Peritoneal Dialysis [address] [facility] [place], [place] [address] 07/12/2024 8:00 AM EDT Treatment Home Dialysis Hamzah [address] [place], [place] [address] Nurse, [employer] [address] [place] [address] 07/22/2024 1:00 PM EST Office Visit Home Dialysis Hamzah [address] [place] [address] [facility] Peritoneal Dialysis [address] [facility] [place], [place] [address] 08/11/2024 8:00 AM EST Treatment Home Dialysis Hamzah [address] [place], [place] [address] Nurse, [employer] [address] [place], [place] [address] 08/20/2024 1:00 PM EST Office Visit Home Dialysis Hamzah [address] [place] [address] [facility] [facility]ialysis [address] [facility] [place] [address] Health Maintenance Due Date Last Done Comments [...] Advance Directives occurred with: Patient Care Teams Mathematical Physicist Relationship Specialty Start Date End Date Tomer Garner MD [address] [place] [address] PCP - General 09/19/02 documented as of this encounter
--- OUTSIDE RECORDS SUMMARY | 2024-03-17 14:20 | External Medical Summary ---
Author Name Unknown Address Unknown Organization K01:LABORATORY [facility] - [address] [place] [address] Laboratory Report Ordering Provider Test Date Status MARI BOB 01/17/2024 12:17:30 Final Observation Date Value Abnormality Reference (Units ) Status BUN 01/17/2024 12:17:30 65 Above high normal 6- 20 (mg/dL) Final Performing Location [facility] - [address] [place] [address]
--- OUTSIDE RECORDS SUMMARY | 2024-03-17 14:20 | External Medical Summary | Summary of Care ---
Author Name Unknown Organization [facility] Address [address] [place] [address] Phone [phone] Care Team Providers Care Car Icer Name Role Phone Tomer Garner MD Primary Care Provider Reason for Visit * Reason Onset Date Comments Medication Refill 11/29/2023 Encounter Details Date Type Department Care Team (Late st Contact Info) Description 11/29/2023 Refill [facility] Nephrology [address] [place] [address] Akosua Lopez MD [address] [place] [address] Allergies No known active allergiesdocumented [...] the morning. 30 Tablet 11 11/21/2023 Active Lovastatin 10 MG Oral TabletIndications :Kidney replaced by transplant Take 1 Tablet by mouth in the morning. 90 Tablet 3 09/28/2022 4 Discontinue d(Refill) cycloSPORINE Modified 25 MG Oral CapsuleIndication s:Kidney replaced by transplant Take 2 capsules in the morning and 2 capsules in the evening 360 Capsule 3 12/02/2022 4 Discontinue d(Refill) Cinacalcet HCl 30 MG Oral Tablet (Sensipar) Take 1 Tablet by mouth in the morning. 90 Tablet 3 05/09/2023 4 Discontinue d(Refill) Cinacalcet HCl 30 MG Oral Tablet (Sensipar) Take 1 Tablet by mouth in the morning. 90 Tablet 3 11/29/2023 4 Discontinue d(Refill) documented as of this [...] (Oral) 1981,04/11 Pneumococcal Conjugate Vacci ne, 20-valent ([id number]) 11/17/2022 Seasonal Influenza, PF, 6 M & [...] PM EDT Office Visit Nutrition & Weight Management[facility] [address] [facility] [place], [place] [phone] Mary Gonzalez CRNP [address] [place] [address] 02/08/2024 1:00 PM EDT Office Visit Home Dialysis Hamzah [address] [phone] [facility], Peritoneal Dialysis [address] [place] [address] 02/10/2024 8:00 AM EDT Treatment Home Dialysis Hamzah [address] [phone] Nurse, Lance Lopez [employer] [address] [place] [address] 03/05/2024 1:00 PM EDT Office Visit Home Dialysis Hamzah [address] [phone] [facility], Peritoneal Dialysis [address] [facility] [place] [address] 03/11/2024 8:00 AM EDT Treatment Home Dialysis Hamzah [address] [place] [address] Nurse, Lance Bee [address] [place] [address] 04/11/2024 8:00 AM EDT Treatment Home Dialysis Hamzah Lucas Dr [address] [phone] Nurse, Lance [facility] Cristal [address] [place] [address] 04/15/2024 1:00 PM EDT Hospital Encounter Radiology, [address] [address] 04/16/2024 11:00 AM EDT Office Visit Transplant Clinic, [place] [address] [place] [address] Gutierrez Monae MD [address] [place] [address] Win Julio MD [address] [place] [address] Nurse Ar[facility]eli Renal Transplant [address] [place] [address] Chana Robin, AIR INTERCEPT CONTROLLER SUPERVISOR [address] [place] [address] 04/16/2024 2:50 PM EDT Laboratory Outpatient Laboratory, [address] [address] [place] Lab B1a [address] [place] [address] 04/17/2024 1:00 PM EDT Appointment Radiology, [address] [address] 04/29/2024 1:00 PM EDT Office Visit Home Dialysis Hamzah [address] [place] [address] [facility], Peritoneal Dialysis [address] [place] [address] Health Maintenance Due Date Last Done Comments [...] Advance Directives occurred with: Patient Care Teams Car Icer Relationship Specialty Start Date End Date Tomer Garner MD [address] [place] [address] PCP - General 09/19/02 documented as of this encounter
--- OUTSIDE RECORDS SUMMARY | 2024-03-17 14:20 | External Medical Summary | Summary of Care ---
Author Name Unknown Organization [facility] Address [address] [place] [address] Phone [phone] Care Team Providers Care Parts Salesman Name Role Phone Tomer Garner MD Primary [...] present (HCC) Akosua Lopez MD [address] [place] [address] Referral ID Status Reason Start Date Expiration Date Visits Requested Visits Authorized [id number] Authorized Specialty Services Required 01/02/2024 999 999 Question Answer Referral Priority Within 10 days (routine) Where should this appointment be scheduled? [facility] For what condition is the patient being seen? Obesity Comments PD patient. Needs to lose weight for qualify for kidney transplantation . Tx you! Reason for Visit * Reason Onset Date Comments Medication Refill 01/02/2024 Encounter Details Date Type Department Care Team ([facility] Contact Info) Description 01/02/2024 Refill [facility] Nephrology [address] [place] [address] Akosua Lopez MD [address] [place] [address] Class 3 severe obesity with body mass index (BMI) of 45.0 to 49.9 in adult, unspecified obesity type, unspecified whether serious comorbidity present ([facility])* Allergies No known active allergiesdocumented as of this encounter (statuses as of 01/02/2024) Medications Medication Sig Dispensed Refills Start Date [...] % External CreamIndications:E SRD on peritoneal dialysis ([facility]) Apply topically to affected [...] morning. 30 Tablet 11 11/21/2023 Active Retacrit 41232 UNIT/ML Injection Solution (Epoetin melita-epbx ESRD) Inject [...] as of this encounter (statuses as of 01/02/2024) Active Problems Problem Noted Date Diagnosed Date [...] as of this encounter (statuses as of 01/02/2024) Resolved Problems Problem Noted Date Diagnosed Date [...] as of this encounter (statuses as of 01/02/2024) Immunizations Name Administration Dates Next Due COVID-19 mRNA, LNP-s, No Pre serve, 2-Dose Series (Moderna) 11/23/2020,10/18/2020 DTP Vaccine 1981,1981,1981 HEP B - Hepatitis B (Dialysis/Immumocomp Pt) 05/02/2023,04/04/2023 MMR - Measles/Mumps/Rubella Vaccine 05/11/1982 OPV - Polio Virus Vaccine (Oral) 1981,04/11 Pneumococcal Conjugate Vacci ne, 20-valent ([id number]) 11/17/2022 Seasonal Influenza, PF, 6 M & [...] Home Dialysis [address], [place], [place] [phone] Nurse, Lancebaltazar Bee [address] [id number] 02/08/2024 1:00 PM EDT Office Visit Home Dialysis [address] [place] [address] [address] [facility] [place] Peritoneal Dialysis [address] [place] [address] 02/10/2024 8:00 AM EDT Treatment Home Dialysis [address] [place] [address] Nurse, [address] [place] [address] 03/05/2024 1:00 PM EDT Office Visit Home Dialysis [address] [phone] Mdc, Peritoneal Dialysis [address] [place] [address] 03/11/2024 8:00 AM EDT Treatment Home Dialysis [address], [place] [address] Nurse, [place] [address] 04/11/2024 8:00 AM EDT Treatment Home Dialysis [address], [place] [address] Nurse, [place] [address] 04/15/2024 1:00 PM EDT Hospital Encounter Radiology, [place] [address] [place] [address] 04/16/2024 11:00 AM EDT Office Visit Transplant Clinic, [place] [address] [place], [place] [phone] Gutierrez Monae MD [address], [place] Win Julio MD [address] [place], [place] Nurse [facility] [address], [place] Chana Robin LSW [address], [place] 04/17/2024 1:00 PM EDT Appointment Radiology, [address] [phone] 04/29/2024 1:00 PM EDT Office Visit Home Dialysis [address] [phone] [facility], Peritoneal Dialysis [facility] [address] [place], [place] 05/12/2024 8:00 AM EDT Treatment Home Dialysis [address] [phone] Nurse, Lance [employer] Cristal [address] 06/07/2024 1:00 PM EDT Office Visit Home Dialysis [address] [phone] [facility], Peritoneal Dialysis [address] [place] [address] 06/11/2024 8:00 AM EDT Treatment Home Dialysis [address] [phone] Nurse, Lance [employer] Cristal [address] [address] [address] 06/25/2024 1:00 PM EDT Office Visit Home Dialysis [address] [place], [place] [phone] [facility] [place], Peritoneal Dialysis [address] [facility] [place], [place] [id number] 07/12/2024 8:00 AM EDT Treatment Home Dialysis [address] [place], [place] [phone] Nurse, [address] Cristal [place], [place] [id number] 07/22/2024 1:00 PM EST Office Visit Home Dialysis [address] [place], [place] [phone] [facility] [place], Peritoneal Dialysis [address] [facility] [place], [place] [id number] 08/11/2024 8:00 AM EST Treatment Home Dialysis [address] Lance [place], [place] [phone] Nurse, M87 Cristal [address] [place], [place] [id number] 08/20/2024 1:00 PM EST Office Visit Home Dialysis [address] Lance [place], [place] [phone] [facility] [place], Peritoneal Dialysis [address] [facility] [place], [place] [phone] Scheduled Referrals Name Type Priority Associated Diagnoses Orde r Schedule GI NUTRITION REFERRAL OP Referral Within 10 days (routine) Class 3 severe obesity with body mass index (BMI) of 45.0 to 49.9 in adult, unspecified obesity type, unspecified whether serious comorbidity present (HCC) Ordered: 01/02/2024 Health Maintenance Due Date Last Done Comments [...] as of this encounter Visit Diagnoses Diagnosis Class 3 severe obesity with body mass index (BMI) of 45.0 to 49.9 in adult, unspecified obesity type, unspecified whether serious comorbidity present (HCC)- Primary documented in this encounter Advance Directives Latest [...] Advance Directives occurred with: Patient Care Teams Parts Salesman Relationship Specialty Start Date End Date Tomer Garner MD [address] [place] [address] PCP - General 09/19/02 documented as of this encounter
--- OUTSIDE RECORDS SUMMARY | 2024-03-17 14:20 | External Medical Summary ---
Author Name Unknown Address Unknown Organization [id number]:[place] [place] [address] [address] Laboratory Report Ordering Provider Test Date Status MAGI BOBDEZ 01/17/2024 12:17:30 Final Observation Date Value Abnormality Reference (Units ) Status Albumin 01/17/2024 12:17:30 4.2 3.8-5.0 (g/dL) Final Calcium 01/17/2024 12:17:30 8.5 8.4-10.2 (mg/dL) Final Phosphate 01/17/2024 12:17:30 12.5 Above high normal 2.5-4.8 (mg/dL) Final Calcium [Moles/volume] corrected for albumin in Serum or Plasma 01/17/2024 12:17:30 8.5 (mg/dL) Final Calcium-phosphorus product panel - Serum or Plasma 01/17/2024 12:17:30 106.3 Final Performing Location [facility] [place] [address] [place] [address]
--- OUTSIDE RECORDS SUMMARY | 2024-03-17 14:20 | External Medical Summary | Summary of Care ---
Author Name Unknown Organization [facility] Address [address] [place] [address] Phone [phone] Care Team Providers Care Industrial/Organizational Psychologist Name Role Phone Tomer Garner MD Primary Care Provider [phone] Reason for Visit * Reason Onset Date Comments Pre Cert/Prior Auth 01/01/2024 Auryxia 1 GM 210 MG (FE) Encounter Details Date Type Department Care Team (Late Contact Info) Description 01/01/2024 Telephone Hemodialysis Lance Fernández, [place] [address] [place] [address] Akosua Lopez MD [address] [place] [address] Pre Cert/Prior Auth (Auryxia 1 GM 210 MG (... Allergies No known active allergiesdocumented as of [...] CreamIndications:E SRD on peritoneal dialysis ([facility]) Apply topically to affected area daily. Apply to PD exit catheter site daily after showering and cover with bandage 15 g 2 09/08/2023 Active Dialyvite Oral Tablet Take 1 Tablet by mouth in the morning. 30 Tablet 11 09/28/2023 Active Losartan Potassium 50 MG Oral Tablet (Cozaar) Take 1 Tablet by mouth in the morning. 30 Tablet 11 11/21/2023 Active Retacrit 50993 UNIT/ML Injection Solution (Epoetin melita-epbx ESRD) Inject 0.65 mL under the skin once a week. 3 mL 0 12/04/2023 01/18/2024 Active Syringe 21G X 1" 3 ML Retacrit 13.000 U weekly. 12 Each 6 12/04/2023 Active BD Insulin Syringe 25G X 5/8" 1 ML (Insulin Syringe-Needle U-100)Indications: ESRD on peritoneal dialysis ([facility]) Use to inject 13,000 units [...] (Oral) 1981,04/11 Pneumococcal Conjugate Vacci ne, 20-valent ([id number]) 11/17/2022 Seasonal Influenza, PF, 6 M & [...] 01/10/2024 8:00 AM EDT Treatment Home Dialysis [address] [place], [place] [address] Nurse, [address] Cristal [address], [place] [address] 02/08/2024 1:00 PM EDT Office Visit Home Dialysis [address] [place], [place] [address] [place], Peritoneal Dialysis [address] [place] [address] 02/10/2024 8:00 AM EDT Treatment Home Dialysis [address] [place], [place] [phone] Nurse, Lance Drive Cristal [address], [place] [address] 03/05/2024 1:00 PM EDT Office Visit Home Dialysis [address] [place], [place] [address] [facility] [place] [address] [place] [facility] [address] 03/11/2024 8:00 AM EDT Treatment Home Dialysis [address] [place], [place] [address] Nurse, [employer] Crist[address] [place], [place] [address] 04/11/2024 8:00 AM EDT Treatment Home Dialysis [address] [place], [place] [address] Nurse, Lance [place] Cristal [address], [place] [address] 04/15/2024 1:00 PM EDT Hospital Encounter Radiology, [place] [address] [place], [place] [phone] 04/16/2024 11:00 AM EDT Office Visit Transplant Clinic, [place] [address] [place], [place] [phone] Gutierrez Monae MD [address] [place] [address] Win Julio MD [address] [place] [address] Nurse [facility] [address] [place] [address] Chana Robin LSW [address] [place] [address] 04/17/2024 1:00 PM EDT Appointment Radiology, [place] [address] [place], [place] [phone] 04/29/2024 1:00 PM EDT Office Visit Home Dialysis [address] [phone] [facility] [address] [place], [place] 05/12/2024 8:00 AM EDT Treatment Home Dialysis [address] [phone] Nurse, Lance [place] Cristal [address] 06/07/2024 1:00 PM EDT Office Visit Home Dialysis [facility] [phone] [facility] [place] [address] [place], [place] 06/11/2024 8:00 AM EDT Treatment Home Dialysis [address] [phone] Nurse, Lance Bee [address] 06/25/2024 1:00 PM EDT Office Visit Home Dialysis [facility] [phone] [facility] [place] [address] [facility] [address] 07/12/2024 8:00 AM EDT Treatment Home Dialysis [address] [place] [address] [address] Nurse, [employer] [address] [place] [address] 07/22/2024 1:00 PM EST Office Visit Home Dialysis [address] [address] [facility] [place] [address] [facility] [place] [address] 08/11/2024 8:00 AM EST Treatment Home Dialysis [address] [place] [address] [address] Nurse, [employer] [address] [place] [address] 08/20/2024 1:00 PM EST Office Visit Home Dialysis [address] [place] [address] [address] [facility] [place] [address] [facility] [place] [place] [address] Health Maintenance Due Date Last Done Comments [...] Advance Directives occurred with: Patient Care Teams Industrial/Organizational Psychologist Relationship Specialty Start Date End Date Tomer Garner MD [address] [facility] [place] [address] PCP - General 09/19/02 documented as of this encounter
--- OUTSIDE RECORDS SUMMARY | 2024-03-17 14:20 | External Medical Summary ---
Author Name Unknown Address Unknown Organization K01:LABORATORY [facility] [place] - [facility] [address] [address] Laboratory Report Ordering Provider Test Date Status MAGI BOBDEZ 01/17/2024 12:17:30 Final Observation Date Value Abnormality Reference (Units ) Status Creatinine 01/17/2024 12:17:30 17.9 Above high normal 0.6-1.2 (mg/dL) Final Glomerular filtration rate/1.73 sq M.predicted [Volume Rate/Area] in Serum, Plasma or Blood by Creatinine-based formula (CKD-EPI) 01/17/2024 12:17:30 3 Below low normal >=60 (mL/min) Final eGFR is calculated based on the CKD-EPI 2020 equation Performing Location LABORATORY [facility] [place] - [facility] [address] [address]
--- OUTSIDE RECORDS SUMMARY | 2024-03-17 14:20 | External Medical Summary ---
Author Name Unknown Address Unknown Organization K01:[facility] - [address] [address] Laboratory Report Ordering Provider Test Date Status LISBETHGUERRA 01/17/2024 12:17:30 Final Observation Date Value Abnormality Reference (Units ) Status Hemoglobin 01/17/2024 12:17:30 8.9 Below low normal 14 .0-16.8 (g/dL) Final Performing Location LABORATORY [facility] - [address] [place] [address]
--- OUTSIDE RECORDS SUMMARY | 2024-03-17 14:20 | External Medical Summary ---
Author Name Unknown Address Unknown Organization K01[place] [place] [address] [place] [address] Laboratory Report Ordering Provider Test Date Status MARI BOB 01/17/2024 12:17:30 Final Observation Date Value Abnormality Reference (Units ) Status ALT (Alanine aminotransferase) 01/17/2024 12:17:30 29 10-50 (U/L) Final Performing Location LABORATORY [facility] - [address] [place] [address]
--- OUTSIDE RECORDS SUMMARY | 2024-03-17 14:20 | External Medical Summary | Summary of Care ---
Author Name Unknown Organization [facility] Address [address] [place] [address] Phone [phone] Care Team Providers Care Furniture Fabricator Name Role Phone Tomer Garner MD Primary Care Provider Reason for Visit * Reason Onset Date Comments Precert Approved 01/01/2024 Auryxia 1 GM 21 0 MG (FE) Encounter Details Date Type Department Care Team ([facility] Contact Info) Description 01/01/2024 Telephone Hemodialysis Lance Fernández, [place] [address] [place] [address] Akosua Lopez MD [address] [place] [address] Precert Approved ( Auryxia 1 GM 210 MG (FE)) Allergies No known active allergiesdocumented as of [...] morning. 30 Tablet 11 11/21/2023 Active Retacrit 62853 UNIT/ML Injection Solution (Epoetin melita-epbx ESRD) Inject [...] (Oral) 1981,04/11 Pneumococcal Conjugate Vacci ne, 20-valent ([id number]) 11/17/2022 Pneumococcal Polysaccharide PPV23 (Pneumovax) 02/03/2004 Seasonal [...] [address] [place], [place] [phone] Nurse, Lance Bee [address] [place] [address] 02/08/2024 1:00 PM EDT Office Visit Home Dialysis [address] [place] [address] [facility], Peritoneal Dialysis [address] [place] [address] 02/10/2024 8:00 AM EDT Treatment Home Dialysis [address] [place] [address] Nurse, Lancebaltazar Bee [address] [place] [address] 03/05/2024 1:00 PM EDT Office Visit Home Dialysis [address] [place] [address] [address] [facility] [place] [address] [place] [address] 03/11/2024 8:00 AM EDT Treatment Home Dialysis [address] [place], [place] [address] Nurse, Lancebaltazar Bee [address] [place], [place] [address] 04/11/2024 8:00 AM EDT Treatment Home Dialysis [address] [place], [place] [address] Nurse, [employer] [address] [place], [place] [address] 04/15/2024 1:00 PM EDT Hospital Encounter Radiology, [place] [address] [place], [place] [phone] 04/16/2024 11:00 AM EDT Office Visit Transplant Clinic, [place] [address] [place] [address] Gutierrez Monae MD [address] [place] [address] Win Julio MD [address] [place] [address] Nurse [facility] [address] [place] [address] Chana Robin LSW [address] [place] [address] 04/17/2024 1:00 PM EDT Appointment Radiology, [place] [address] [place], [place] [phone] 04/29/2024 1:00 PM EDT Office Visit Home Dialysis [address] [place], [place] [phone] [facility] [place] [address] [place] [address] 05/12/2024 8:00 AM EDT Treatment Home Dialysis [address] [place], [place] [phone] Nurse, [employer] [address] [place], [place] 06/07/2024 1:00 PM EDT Office Visit Home Dialysis [address] [place], [place] [phone] [facility] [place] [address] [place] 06/11/2024 8:00 AM EDT Treatment Home Dialysis [address] [phone] Nurse, [employer] [address] 06/25/2024 1:00 PM EDT Office Visit Home Dialysis [address] [place], [place] [address] [facility] [place] D[place] [address] [place], [place] [address] 07/12/2024 8:00 AM EDT Treatment Home Dialysis [address] [place], [place] [address] Nurse, [employer] [address] [place], [place] [address] 07/22/2024 1:00 PM EST Office Visit Home Dialysis [address] [place], [place] [address] [facility] [place] Dialysis [address] [place], [place] [address] 08/11/2024 8:00 AM EST Treatment Home Dialysis [address] [place], [place] [address] Nurse, [employer] [address] [place], [place] [address] 08/20/2024 1:00 PM EST Office Visit Home Dialysis [address] [place], [place] [address] [facility] [place] [address] [place], [place] [address] Health Maintenance Due Date Last Done Comments [...] Advance Directives occurred with: Patient Care Teams Furniture Fabricator Relationship Specialty Start Date End Date Tomer Garner MD [address] [place] [address] PCP - General 09/19/02 documented as of this encounter
--- OUTSIDE RECORDS SUMMARY | 2024-03-17 14:20 | External Medical Summary | Summary of Care ---
Author Name Unknown Organization [facility] Address [address] [facility] [place] [address] Phone [phone] Care Team Providers Care Metal Door Assembler Name Role Phone Tomer Garner MD Primary Care Provider [phone] Reason for Visit * Reason Comments CAPD Follow-Up Encounter Details Date Type Department Care Team (Late st Contact Info) Description 01/10/2024 8:00 AM EDT Treatment Home Dialysis [address] [place] [address] Nurse, [address] [place] [address] 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 chronic kidney disease, not on chronic dialysis (HCC)*; ESRD on peritoneal dialysis (HCC) Allergies No known active allergiesdocumented as of this encounter (statuses as of 01/10/2024) Medications Medication Sig Dispensed Refills Start Date [...] % External CreamIndications:E SRD on peritoneal dialysis ([facility]) Apply topically to affected area daily. Apply to PD exit catheter site daily after showering and cover with bandage 15 g 2 09/08/2023 Active Dialyvite Oral Tablet Take 1 Tablet by mouth in the morning. 30 Tablet 11 09/28/2023 Active Losartan Potassium 50 MG Oral Tablet (Cozaar) Take 1 Tablet by mouth in the morning. 30 Tablet 11 11/21/2023 Active Retacrit 98817 UNIT/ML Injection Solution (Epoetin melita-epbx ESRD) Inject 0.65 mL under the skin once a week. 3 mL 0 12/04/2023 01/18/2024 Active Syringe 21G X 1" 3 ML Retacrit 13.000 U weekly. 12 Each 6 12/04/2023 Active BD Insulin Syringe 25G X 5/8" 1 ML (Insulin Syringe-Needle U-100)Indications: ESRD on peritoneal dialysis ([facility]) Use to inject 13,000 units [...] as of this encounter (statuses as of 01/10/2024) Active Problems Problem Noted Date Diagnosed Date [...] as of this encounter (statuses as of 01/10/2024) Resolved Problems Problem Noted Date Diagnosed Date [...] as of this encounter (statuses as of 01/10/2024) Immunizations Name Administration Dates Next Due COVID-19 mRNA, LNP-s, No Pre serve, 2-Dose Series (Moderna) 11/23/2020,10/18/2020 DTP Vaccine 1981,1981,1981 HEP B - Hepatitis B (Dialysis/Immumocomp Pt) 05/02/2023,04/04/2023 MMR - Measles/Mumps/Rubella Vaccine 05/11/1982 OPV - Polio Virus Vaccine (Oral) 1981,04/11 Pneumococcal Conjugate Vacci ne, 20-valent ([id number]) 11/17/2022 Seasonal Influenza, PF, 6 M & [...] as of this encounter Progress Notes * Karrie Russo TECH - 01/10/2024 8:33 AM EDT .MONTHLYBILLINGNOTE documented in this encounter Plan of Treatment Upcoming Encounters Date Type Department Care Team (Late st Contact Info) Description 01/31/2024 2:40 PM EDT Office Visit Nutrition & Weight ManagementCl[facility] [address] [address] Mary Gonzalez CRNP [address] [facility] [place] [address] 02/08/2024 1:00 PM EDT Office Visit Home Dialysis [address] [place] [address] Mdc, Peritoneal Dialysis [address] [place] [address] 02/10/2024 8:00 AM EDT Treatment Home Dialysis [place] [address] [phone] Nurse, Lance Bee [place], [place] [address] 03/05/2024 1:00 PM EDT Office Visit Home Dialysis Cl[facility] [address] [place] [address] [address] [facility] [address] [place], [place] 03/11/2024 8:00 AM EDT Treatment Home Dialysis Clau [address] Lance [place], [place] [phone] Nurse, Lance Bee [place], [place] 04/11/2024 8:00 AM EDT Treatment Home Dialysis Clau [address] [place], [place] [phone] Nurse, Lance [facility] Cristal [place], [place] 04/15/2024 1:00 PM EDT Hospital Encounter Radiology, [place] [address] [place] [address] 04/16/2024 11:00 AM EDT Office Visit Transplant Clinic, [place] [address] [place] [address] Gutierrez Monae MD [address] [place] [address] Wni Julio MD [address] [place], [place] Nurse [facility] [address] [place], [place] ShardaChana, SURVEY TECHNICIAN [address] [place], [place] [id number] 04/16/2024 2:50 PM EDT Laboratory Outpatient Laboratory, [place] [address] [place] [address] [place], Lab B1a [address] [place] [address] 04/17/2024 1:00 PM EDT Appointment Radiology, [place] [address] [place], [place] [id number] 04/29/2024 1:00 PM EDT Office Visit Home Dialysis Clau [address] [place], [place] [phone] [facility]ialysis [facility] [place] [address] 05/12/2024 8:00 AM EDT Treatment Home Dialysis Clau [address] [place], [place] [phone] Nurse, [employer] [address] [place], [place] 06/07/2024 1:00 PM EDT Office Visit Home Dialysis Clau [address] [place], [place] [address] [facility] [facility] [place], [place] 06/11/2024 8:00 AM EDT Treatment Home Dialysis Clau [address] [place], [place] [phone] Nurse, [employer] [address] [place], [place] 06/25/2024 1:00 PM EDT Office Visit Home Dialysis Clau [address] [place], [place] [phone] [facility] [address] [place], [place] 07/12/2024 8:00 AM EDT Treatment Home Dialysis Clau [address] [place], [place] [phone] Nurse, [employer] [address] [place], [place] [address] 07/22/2024 1:00 PM EST Office Visit Home Dialysis [place] [address] [facility] [address] [place] [address] 08/11/2024 8:00 AM EST Treatment Home Dialysis Clau [address] [place], [place] [phone] Nurse, [employer] [place] [place], [place] [address] 08/20/2024 1:00 PM EST Office Visit Home Dialysis Clau Lucas Dr Lance [place], [place] [address] [facility] [address] [place] [address] Scheduled Orders Name Type Priority Associated Diagnoses Orde r Schedule ALT Lab STAT 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 chronic kidney disease, not on chronic dialysis (HCC) ESRD on peritoneal dialysis (HCC) Expected: 01/10/2024, Expires: 02/09/2025 BUN Lab STAT 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 chronic kidney disease, not on chronic dialysis (HCC) ESRD on peritoneal dialysis (HCC) Expected: 01/10/2024, Expires: 02/09/2025 POTASSIUM Lab STAT 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 chronic kidney disease, not on chronic dialysis (HCC) ESRD on peritoneal dialysis (HCC) Expected: 01/10/2024, Expires: 02/09/2025 HGB Lab STAT 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 chronic kidney disease, not on chronic dialysis (HCC) ESRD on peritoneal dialysis (HCC) Expected: 01/10/2024, Expires: 02/09/2025 IRON SCREEN, INCLUDING TIBC Lab STAT 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 chronic kidney disease, not on chronic dialysis (HCC) ESRD on peritoneal dialysis (HCC) Expected: 01/10/2024, Expires: 02/09/2025 ADJUSTED CALCIUM PHOSPHORUS PRODUCT Lab STAT 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 chronic kidney disease, not on chronic dialysis (HCC) ESRD on peritoneal dialysis (HCC) Expected: 01/10/2024, Expires: 02/09/2025 CREATININE Lab Routine 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 chronic kidney disease, not on chronic dialysis (HCC) ESRD on peritoneal dialysis (HCC) Expected: 01/10/2024, Expires: 02/09/2025 CO2 Lab STAT 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 chronic kidney disease, not on chronic dialysis (HCC) ESRD on peritoneal dialysis (HCC) Expected: 01/10/2024, Expires: 02/09/2025 HEPATITIS B SURFACE ANTIGEN Lab STAT 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 chronic kidney disease, not on chronic dialysis (HCC) ESRD on peritoneal dialysis (HCC) Expected: 01/10/2024, Expires: 01/10/2025 CHLORIDE Lab Routine 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 chronic kidney disease, not on chronic dialysis (HCC) ESRD on peritoneal dialysis (HCC) One Time for 1 Occurrences starting 01/10/2024 until 01/10/2024 SODIUM Lab Routine 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 chronic kidney disease, not on chronic dialysis (HCC) ESRD on peritoneal dialysis (HCC) One Time for 1 Occurrences starting 01/10/2024 until 01/10/2024 Health Maintenance Due Date Last Done Comments [...] chronic kidney disease, not on chronic dialysis (HCC)- Primary ESRD on peritoneal dialysis (HCC) [...] Advance Directives occurred with: Patient Care Teams Metal Door Assembler Relationship Specialty Start Date End Date Tomer Garner MD [address] [place] [address] PCP - General 09/19/02 documented as of this encounter
--- OUTSIDE RECORDS SUMMARY | 2024-03-17 14:20 | External Medical Summary | Summary of Care ---
Author Name Unknown Organization [facility] Address [address] [facility] [place] [address] Phone [phone] Care Team Providers Care Bevel Polisher Name Role Phone Tomer Garner MD Primary Care Provider [phone] Reason for Visit * Reason Comments CAPD [...] as of this encounter (statuses as of 01/11/2024) Medications Medication Sig Dispensed Refills Start Date [...] SRD on peritoneal dialysis ([facility]) Apply topically to affected area daily. Apply to PD exit catheter site daily after showering and cover with bandage 15 g 2 09/08/2023 Active Dialyvite Oral Tablet Take 1 Tablet by mouth in the morning. 30 Tablet 11 09/28/2023 Active Losartan Potassium 50 MG Oral Tablet (Cozaar) Take 1 Tablet by mouth in the morning. 30 Tablet 11 11/21/2023 Active Retacrit 10565 UNIT/ML Injection Solution (Epoetin melita-epbx ESRD) Inject 0.65 mL under the skin once a week. 3 mL 0 12/04/2023 01/18/2024 Active Syringe 21G X 1" 3 ML Retacrit 13.000 U weekly. 12 Each 6 12/04/2023 Active BD Insulin Syringe 25G X 5/8" 1 ML (Insulin Syringe-Needle U-100)Indications: ESRD on peritoneal dialysis ([facility]) Use to inject 13,000 units of [...] as of this encounter (statuses as of 01/11/2024) Active Problems Problem Noted Date Diagnosed Date [...] as of this encounter (statuses as of 01/11/2024) Resolved Problems Problem Noted Date Diagnosed Date [...] as of this encounter (statuses as of 01/11/2024) Immunizations Name Administration Dates Next Due COVID-19 mRNA, LNP-s, No Pre serve, 2-Dose Series (Moderna) 11/23/2020,10/18/2020 DTP Vaccine 1981,1981,1981 HEP B - Hepatitis B (Dialysis/Immumocomp Pt) 05/02/2023,04/04/2023 MMR - Measles/Mumps/Rubella Vaccine 05/11/1982 OPV - Polio Virus Vaccine (Oral) 1981,04/11 Pneumococcal Conjugate Vacci ne, 20-valent ([id number]) 11/17/2022 Seasonal Influenza, PF, 6 M & [...] Visit Nutrition & Weight ManagementCl[facility] [address] [place] [address] Mary Gonzalez CRNP [address] [facility] [place] [address] 02/08/2024 1:00 PM EDT Office Visit Home Dialysis [address]iel [address] [place] [address] [address] Mdc, Peritoneal Dialysis [address] [place] [address] 02/10/2024 8:00 AM EDT Treatment Home Dialysis [place] [address] [phone] Nurse, Lance Bee [place], [place] [address] 03/05/2024 1:00 PM EDT Office Visit Home Dialysis Clau [address] [place] [address] [address] [facility] [address] [place], [place] 03/11/2024 8:00 AM EDT Treatment Home Dialysis Clau [address] [place], [place] [phone] Nurse, Lance Bee [place], [place] 04/11/2024 8:00 AM EDT Treatment Home Dialysis Clau [address] [place], [place] [phone] Nurse, Lance [facility] Cristal [place], [place] 04/15/2024 1:00 PM EDT Hospital Encounter Radiology, [facility] [address] [place] [address] 04/16/2024 11:00 AM EDT Office Visit Transplant Clinic, [facility] [address] [place] [address] Gutierrez Monae MD [address] [place] [address] Win Julio MD [address] [place], [place] Nurse Ar[facility]eli [facility] [address] [place], [place] Chana Robin, CHECKMAN [address] [place] [address] 04/16/2024 2:50 PM EDT Laboratory Outpatient Laboratory, [facility] [address] [place] [address] [facility], Lab B1a [address] [place] [address] 04/17/2024 1:00 PM EDT Appointment Radiology, [facility] [address] [place], [place] [id number] 04/29/2024 1:00 PM EDT Office Visit Home Dialysis Lance Fernández, [place] [address] [address]án[address] [place], [place] [phone] Mdc, Peritoneal Dialysis [address] [place], [place] [id number] Scheduled Orders Name Type Priority Associated Diagnoses Orde r Schedule ALT Lab STAT 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 chronic kidney disease, not on chronic dialysis (HCC) ESRD on peritoneal dialysis ([facility]) Expected: 01/10/2024, Expires: 02/09/2025 BUN Lab STAT 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 chronic kidney disease, not on chronic dialysis (HCC) ESRD on peritoneal dialysis ([facility]) Expected: 01/10/2024, Expires: 02/09/2025 POTASSIUM Lab STAT 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 chronic kidney disease, not on chronic dialysis (HCC) ESRD on peritoneal dialysis ([facility]) Expected: 01/10/2024, Expires: 02/09/2025 HGB Lab STAT 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 chronic kidney disease, not on chronic dialysis (HCC) ESRD on peritoneal dialysis ([facility]) Expected: 01/10/2024, Expires: 02/09/2025 IRON SCREEN, INCLUDING [...] peritoneal dialysis (HCC) Expected: 01/10/2024, Expires: 01/10/2025 Health Maintenance Due Date Last Done Comments [...] Advance Directives occurred with: Patient Care Teams Bevel Polisher Relationship Specialty Start Date End Date Tomer Garner MD [address] [place] [address] PCP - General 09/19/02 documented as of this encounter
--- OUTSIDE RECORDS SUMMARY | 2024-03-17 14:20 | External Medical Summary ---
Author Name Unknown Address Unknown Organization K01:[facility] [address] [place] [address] Laboratory Report Ordering Provider Test Date Status MARI BOB 01/17/2024 12:17:30 Final Observation Date Value Abnormality Reference (Units ) Status CO2 01/17/2024 12:17:30 23 22-32 (mmo l/L) Final Performing Location [facility] [address] [place] [address]
--- OUTSIDE RECORDS SUMMARY | 2024-03-17 14:21 | External Medical Summary | Summary of Care ---
Author Name Unknown Organization [facility] Address [address] [place] [address] Phone [phone] Care Team Providers Care Hematology Specialist Name Role Phone Tomer Garner MD Primary Care Provider [phone] Encounter Details Date Type Department Care Team (Late st Contact Info) Description 12/24/2023 Documentation Home Dialysis [address] [place] [address] Cathy Wang, RDN [address] [place] [address] Allergies No known active allergiesdocumented as of this encounter (statuses as of 12/25/2023) Medications Medication Sig Dispensed Refills Start Date End Date Status cycloSPORINE Modified 25 MG Oral CapsuleIndications :Kidney replaced by transplant Take 2 capsules in the morning and 2 capsules in the evening 360 Capsule 3 12/02/2022 Active Folic Acid 1 MG Oral Tablet Take [...] Additional Information Patient not taking.Reported on 12/04/2023 Cinacalcet HCl 30 MG Oral Tablet (Sensipar) Take 1 Tablet by mouth in the morning. 90 Tablet 3 11/29/2023 Active Retacrit 70868 UNIT/ML Injection Solution (Epoetin melita-epbx ESRD) Inject [...] the morning. 90 Tablet 3 12/25/2023 Active documented as of this encounter (statuses as of 12/25/2023) Active Problems Problem Noted Date Diagnosed Date [...] as of this encounter (statuses as of 12/25/2023) Resolved Problems Problem Noted Date Diagnosed Date [...] as of this encounter (statuses as of 12/25/2023) Immunizations Name Administration Dates Next Due COVID-19 mRNA, LNP-s, No Pre serve, 2-Dose Series (Moderna) 11/23/2020,10/18/2020 DTP Vaccine 1981,1981,1981 HEP B - Hepatitis B (Dialysis/Immumocomp Pt) 05/02/2023,04/04/2023 MMR - Measles/Mumps/Rubella Vaccine 05/11/1982 OPV - Polio Virus Vaccine (Oral) 1981,04/11 Pneumococcal Conjugate Vacci ne, 20-valent ([id number]) 11/17/2022 Seasonal Influenza, PF, 6 M & [...] as of this encounter Progress Notes * Cathy Wang, ROLYN - 12/25/2023 6:22 PM EDT NUTRITION PERITONEAL DIALYSIS MONTHLY PROGRESS NOTE November 2024 Labs Patient reports appetite is good. Labs reviewed. Lab Results Component Value Date ALBUMIN - [facility] 4.2 11/23/2023 ALBUMIN - [facility] 4.1 11/14/2023 ALBUMIN - [facility] 4.0 11/07/2023 ALBUMIN - [facility] 4.1 10/31/2023 ALBUMIN - [facility] 4.0 10/30/2023 ALBUMIN - [facility] 4.0 10/29/2023 ALBUMIN - [facility] 4.8 10/28/2023 ALBUMIN - [facility] 5.1 10/27/2023 ALBUMIN - [facility] 4.6 10/23/2023 ALBUMIN - [facility] 4.7 10/18/2023 ALBUMIN - [facility] 4.6 10/17/2023 Albumin level is acceptable. Protein Goal/Timeline: not applicable goal achieved. Lab Results Component Value Date CO2 - [facility] 22 11/27/2023 CO2 - [facility] 20 (L) 11/23/2023 CO2 - [facility] 19 (L) 11/14/2023 CO2 - [facility] 18 (L) 11/07/2023 CO2 - [facility] 17 (L) 10/31/2023 CO2 - [facility] 19 (L) 10/30/2023 CO2 - [facility] 18 (L) 10/29/2023 CO2 - [facility] 18 (L) 10/29/2023 CO2 - [facility] 17 (L) 10/28/2023 CO2 - [facility] 20 (L) 10/27/2023 CO2 - [facility] 19 (L) 10/23/2023 CO2 - [facility] 18 (L) 10/18/2023 CO2 - [facility] 18 (L) 10/17/2023 CO2 level is: out of target range 22 mmol/L - 26 mmol/L but improved over the past month: discussedwith MD and no change to current treatment plan. CO2 Goal/Timeline: CO2 to trend toward target range by next lab draw. Lab Results Component Value Date POTASSIUM - [facility] 3.4 (L) 11/27/2023 POTASSIUM - [facility] 3.1 (L) 11/23/2023 POTASSIUM - [facility] 4.1 11/14/2023 POTASSIUM - [facility] 3.4 (L) 11/07/2023 POTASSIUM - [facility] 3.5 10/31/2023 POTASSIUM - [facility] 3.9 10/30/2023 POTASSIUM - [facility] 3.8 10/29/2023 POTASSIUM - [facility] 3.7 10/29/2023 POTASSIUM - [facility] 3.7 10/28/2023 POTASSIUM - [facility] 3.4 (L) 10/27/2023 POTASSIUM - [facility] 3.7 10/23/2023 POTASSIUM - [facility] 4.3 10/18/2023 POTASSIUM - [facility] 4.0 10/17/2023 Potassium level is acceptable but out of target range of 3.5 mmol/L - 5.5 mmol/L later in the month: Diet liberalized in potassium. Potassium Goal/Timeline: Potassium to trend toward target range by next lab draw. Estimated Dry Weight: 129 kg; has increased 5 kg in in the past month. Plan: Monitor monthly weight. Mineral and Bone Disorder Management Lab Results Component Value Date ADJUSTED CALCIUM - [facility] 8.5 11/14/2023 ADJUSTED CALCIUM - [facility] 8.8 10/17/2023 Lab Results Component Value Date PHOSPHORUS - [facility] 8.8 (H) 11/23/2023 PHOSPHORUS - [facility] 13.6 (H) 11/14/2023 PHOSPHORUS - [facility] 13.6 (H) 11/14/2023 PHOSPHORUS - [facility] 9.7 (H) 11/07/2023 PHOSPHORUS - [facility] 13.9 (H) 10/29/2023 PHOSPHORUS - [facility] 10.3 (H) 10/27/2023 PHOSPHORUS - [facility] 12.1 (H) 10/23/2023 PHOSPHORUS - [facility] 18.3 (H) 10/18/2023 PHOSPHORUS - [facility] 17.7 (H) 10/17/2023 Lab Results Component Value Date PTH - [facility] 457 11/14/2023 PTH - [facility] 983 (H) 10/17/2023 Lab Results Component Value Date 25-HYDROXY VITAMIN D - [facility] 43 10/17/2023 Mineral and bone disorder labs: Adjusted calcium level is: acceptable (8.4 mg/dL- 10.2 mg/dL) Phosphorus level is: above target range Intact PTH level is: acceptable (150 pg/mL - 600 pg/mL) 25-OH Vitamin D level is: not tested this month Mineral and Bone Disorder Plan: reviewed low phosphorus diet with patient and reviewed and encouraged patient's adherence to phosphate binder regimen as prescribed. Sensipar needs to be sent to [facility] - new script requested from provider. Mineral and Bone Disorder Management Goal/Timeline: Phosphorus to trend toward target range by nextlab draw. Plan: Will monitor nutritional status monthly. Will adjust nutrition plan as needed. Cathy Wang RDN, CSEDWIN, LDN Renal Dietitian 12/25/2023 6:22 PM documented in this encounter Plan of Treatment Upcoming Encounters Date Type Department Care Team (Late st Contact Info) Description 12/26/2023 1:00 PM EDT Office Visit Home Dialysis [address] [place] [phone] [facility] [place] [address] [facility] [place] [address] 01/10/2024 8:00 AM EDT Treatment Home Dialysis [address] [place], [place] [address] Nurse, Lance [employer] [place] [address] [place], [place] [address] 02/08/2024 1:00 PM EDT Office Visit Home Dialysis [address] [place], [place] [address] [facility] [address] [place] [address] 02/10/2024 8:00 AM EDT Treatment Home Dialysis [address] [place], [place] [phone] Nurse, [employer] [place] [address] [place], [place] [address] 03/05/2024 1:00 PM EDT Office Visit Home Dialysis [address] [place], [place] [address] [facility] [address] [place] [address] 03/11/2024 8:00 AM EDT Treatment Home Dialysis [address] [place], [place] [address] Nurse, [employer] Cristal [address] [place], [place] [address] 03/28/2024 1:00 PM EDT Office Visit Home Dialysis [address] [place], [place] [address] [facility] [address] [place] [address] 04/11/2024 8:00 AM EDT Treatment Home Dialysis Cl[address] [place], [place] [phone] Nurse, [employer] Crist[place] [address] [place], [place] [address] 04/29/2024 1:00 PM EDT Office Visit Home Dialysis Clau [address] [place], [place] [address] [facility] [address] [facility] [place] [address] 05/12/2024 8:00 AM EDT Treatment Home Dialysis [address] [place], [place] [phone] Nurse, [employer] [address], [place] 06/07/2024 1:00 PM EDT Office Visit Home Dialysis [address] [place], [place] [address] [facility] [address] [place] [facility] [address] 06/11/2024 8:00 AM EDT Treatment Home Dialysis [address] [place], [place] [phone] Nurse, [employer] [place] [address] [place], [place] [address] 06/25/2024 1:00 PM EDT Office Visit Home Dialysis [address] [place], [place] [address] [facility]ialysis [address] [facility], [place] [address] 07/12/2024 8:00 AM EDT Treatment Home Dialysis Cl[address] [place], [place] [phone] Nurse, [employer] [address] [place], [place] [address] 07/22/2024 1:00 PM EST Office Visit Home Dialysis Clau [address] [phone] [facility] [address] [facility] [place] [address] 08/11/2024 8:00 AM EST Treatment Home Dialysis Clau [address] [phone] Nurse, [address] [place] [address] 08/20/2024 1:00 PM EST Office Visit Home Dialysis Clau [address] [place] [address] Mdc, Peritoneal Dialysis [address] [place] [address] Health Maintenance Due Date Last Done Comments [...] Advance Directives occurred with: Patient Care Teams Hematology Specialist Relationship Specialty Start Date End Date Tomer Garner MD [address] [place] [address] PCP - General 09/19/02 documented as of this encounter
--- OUTSIDE RECORDS SUMMARY | 2024-03-17 14:21 | External Medical Summary | Summary of Care ---
Author Name Unknown Organization [facility] Address [address] [facility] [place] [address] Phone [phone] Care Team Providers Care Gravel Wheeler Name Role Phone Tomer Garner MD Primary Care Provider Encounter Details Date Type Department Care Team (Late st Contact Info) Description 11/23/2023 1:00 PM EDT Nurse Only Home Dialysis [address] [place] [address] Nurse, Lance Lopez Capd [address] [phone] Allergies No known active allergiesdocumented as of this encounter (statuses as of 12/28/2023) Medications Medication Sig Dispensed Refills Start Date [...] 90 Tablet 3 05/09/2023 4 Discontinue d(Refill) documented as of this encounter (statuses as of 12/28/2023) Active Problems Problem Noted Date Diagnosed Date [...] as of this encounter (statuses as of 12/28/2023) Resolved Problems Problem Noted Date Diagnosed Date [...] as of this encounter (statuses as of 12/28/2023) Immunizations Name Administration Dates Next Due COVID-19 mRNA, LNP-s, No Pre serve, 2-Dose Series (Moderna) 11/23/2020,10/18/2020 DTP Vaccine 1981,1981,1981 HEP B - Hepatitis B (Dialysis/Immumocomp Pt) 05/02/2023,04/04/2023 MMR - Measles/Mumps/Rubella Vaccine 05/11/1982 OPV - Polio Virus Vaccine (Oral) 1981,04/11 Pneumococcal Conjugate Vacci ne, 20-valent ([id number]) 11/17/2022 Seasonal Influenza, PF, 6 M & [...] Sign Reading Time Taken Comments Blood Pressure 139/85 11/23/2023 2:00 PM EDT Pulse 101 11/23/2023 2:00 PM EDT Temperature 36.8 C (98.2 F) 11/23/2023 2:00 PM ED T Respiratory Rate 18 11/23/2023 2:00 PM EDT Oxygen Saturation - - Inhaled Oxygen Concentration - - Weight 127.4 kg (280 lb 13.9 oz) 11/23/2023 2:00 PM EDT Height - - Body Mass Index 40.3 10/28/2023 6:10 PM EST documented in this [...] of this encounter Progress Notes * Sophia Hernandez RN - 11/23/2023 2:23 PM EDT Patient was instructed to not get up on the exam table/exam chair until directed and assisted by their provider; patient is to remain seated in the chair/ wheelchair/ exam table/ exam chair for fall prevention and safety reasons. Patient is aware to have assistance to step down off exam table/exam chair with personnel. Patient voiced full comprehension of instructions. Pt arrived for kt/v sample drop off and labs. Pt reported having picked up his new script losartan 50 mg but not started it yet. His Bp this morning was 108/74. His pulse was 103. Pt has no bilaterallower extremity edema. He did not take his ordered metoprolol 100 mg this morning as he reported anepisode yesterday feeling dizzy and lightheaded and when he checked his BP it was 78/48. Pt ate lunch and drank two lemonades and felt better with BP increase to 118/70. Pt reported this occurrence in clinic today. Pt was again reminded to please contact business analyst consultant nephrology with any after hours sudden severe changes in blood pressures as well as any symptoms and not to wait until next visit or dayto report these severe symptoms. Pt expressed verbal understanding. Dr. Lopez made aware of patient occurrence. Pt to decrease metoprolol to 50 mg daily and not to start losartan at this time. Pt BP at end of clinic visit was 139/85 pulse 101 and pt report no symptoms of dizziness or lightheadedness at this time. Pt weight with no fluid in peritoneal cavity 127.4 kg. Pt to now weigh at home once daily during window when pt is completely empty of Dianeal fluid for more accurate consistent weight. PT to use 1.5% Dianeal fluid for last fill on CCPD treatment. PT expressed verbal understanding of all CCPD changes. documented in this encounter Plan of Treatment Upcoming Encounters Date Type Department Care Team (Late st Contact Info) Description 01/10/2024 8:00 AM EDT Treatment Home Dialysis [address], [place] [address] Nurse, [place] [address] [address] 02/08/2024 1:00 PM EDT Office Visit Home Dialysis [address], [place] [address] [facility] Peritoneal Dialysis [address] [place] [address] 02/10/2024 8:00 AM EDT Treatment Home Dialysis [address], [place] [address] Nurse, [place] [address] 03/05/2024 1:00 PM EDT Office Visit Home Dialysis [address], [place] [address] [facility] Peritoneal Dialysis [address] [place] [address] 03/11/2024 8:00 AM EDT Treatment Home Dialysis [address] [place], [place] [phone] Nurse, Lancebaltazar Bee [address] [place], [place] [address] 04/11/2024 8:00 AM EDT Treatment Home Dialysis [address] [place], [place] [address] Nurse, Lancebaltazar Bee [address] [place], [place] [address] 04/29/2024 1:00 PM EDT Office Visit Home Dialysis [address] [place], [place] [phone] [facility] Peritoneal Dialysis [address] [place] [address] 05/12/2024 8:00 AM EDT Treatment Home Dialysis [address] [place], [place] [phone] Nurse, Lancebaltazar Bee [address] [place], [place] [address] 06/07/2024 1:00 PM EDT Office Visit Home Dialysis [address] [place], [place] [address] [facility], Peritoneal Dialysis [address] [place] [address] 06/11/2024 8:00 AM EDT Treatment Home Dialysis [address] [place], [place] [address] Nurse, Lance Bee [address] [place], [place] [address] 06/25/2024 1:00 PM EDT Office Visit Home Dialysis [address] [place], [place] [address] [facility], Peritoneal Dialysis [address] [facility] [place] [address] 07/12/2024 8:00 AM EDT Treatment Home Dialysis [address] [place], [place] [address] Nurse, Viralize Cristal [address] [place] [address] 07/22/2024 1:00 PM EST Office Visit Home Dialysis [address] [place], [place] [address] [facility], Peritoneal Dialysis [address] [facility] [place], [place] [address] 08/11/2024 8:00 AM EST Treatment Home Dialysis [address] [place], [place] [address] Nurse, Viralize Cristal [address] [place], [place] [address] 08/20/2024 1:00 PM EST Office Visit Home Dialysis [address] [place], [place] [address] [facility], Peritoneal Dialysis [address] [place] [address] Scheduled Orders Name Type Priority Associated Diagnoses Orde r Schedule GLUCOSE Lab Routine ESRD (end stage renal disease) on dialysis (HCC) Expected: 11/23/2023, Expires: 11/22/2024 ALBUMIN Lab Routine ESRD (end stage renal disease) on dialysis (HCC) Expected: 11/23/2023, Expires: 11/22/2024 Health Maintenance Due Date Last Done Comments [...] Procedure Name Priority Date/Time Associated Diagnosis Comments CREATININE, BODY FLUID Routine 11/23/2023 2:16 PM EDT ESRD (end stage renal disease) on dialysis (HCC) UREA NITROGEN, PERITONEAL DIALYSATE Routine 11/23/2023 2:16 PM EDT ESRD (end stage renal disease) on dialysis (HCC) RENAL FUNCTION PANEL Routine 11/23/2023 1:37 PM EDT ESRD (end stage renal disease) on dialysis ([facility]) HGB Routine 11/23/2023 1:37 PM EDT ESRD (end stage renal disease) on dialysis ([facility]) documented in this encounter Results * UREA NITROGEN, PERITONEAL DIALYSATE (11/23/2023 2:16 PM EDT) Urea Nitrogen, Peritoneal Fluid 41 mg/dL 11/23/2023 9:08 PM EDT LAB[facility]ATORY [facility] Comment: The reference interval(s) and other method performance specifications may not be available for this body fluid. Comparison of this result with the concentration in the blood, serum, or plasma is recommended. The test result must be integrated into the clinical context for interpretation. Please refer to test catalog ([email or web address].[employer]/catalog/body_fluids.cfm) for additional interpretive information. This test was developed and its performance characteristics determined by [employer]. It has not been cleared or approved by the [place] Food and Drug Administration. Body Fluid Specimen from wound / Unknown Non-blood Collection / Unknown 11/23/2023 2:16 PM EDT 11/23/2023 6:29 PM EDT Akosua Lopez MD LAB FLUID AND S TOOL ORDERABLES Performing Organization Address [facility] de Phone Number LABORATORY [address] [address] * CREATININE, BODY FLUID (11/23/2023 2:16 PM EDT) Pathologist [facility] Creatinine, Body Fluid 7.9 mg/dL 11/23/2023 9:08 PM EDT LABORATORY [facility] Comment: The reference interval(s) and other method performance specifications may not be available for this body fluid. Comparison of this result with the concentration in the blood, serum, or plasma is recommended. The test result must be integrated into the clinical context for interpretation. Please refer to test catalog ([email or web address]/catalog/body_fluids.cfm) for additional interpretive information. This test was developed and its performance characteristics determined by [employer]. It has not been cleared or approved by the [place] Food and Drug Administration. Body Fluid Specimen from wound / Unknown Non-blood Collection / Unknown 11/23/2023 2:16 PM EDT 11/23/2023 6:29 PM EDT Akosua Lopez MD LAB FLUID AND S TOOL ORDERABLES Performing Organization Address [facility] Co de Phone Number LABORATORY [place] [address] [place] [address] * (ABNORMAL) HGB (11/23/2023 1:37 PM EDT) HGB 8.8(L) 14.0 - 16.8 g/dL 11/23/2023 8:48 PM EDT LABORATORY [facility] Blood Venous blood specimen / Unknown Venipuncture / Unknown 11/23/2023 1:37 PM EDT 11/23/2023 6:13 PM EDT Akosua Lopez MD LAB BLOOD ORDER [facility] LABORATORY [facility] [address] [place] [address] * (ABNORMAL) RENAL FUNCTION PANEL (11/23/2023 1:37 PM EDT) BUN 59(H) 6 - 20 mg/dL 11/23/2023 11:20 PM EDT [facility] Creatinine 18.6(H) 0.6 - 1.2 mg/dL 11/23/2023 11:20 PM EDT [facility] Estimated Glomerular Filtration Rate 3(L) >=60 mL/min 11/23/2023 11:20 PM EDT [facility] Comment:eGFR is calculated b ased on the CKD-EPI 2020 equation Sodium 137 135 - 146 mmol/L 11/23/2023 11:20 PM EDT [facility] Potassium 3.1(L) 3.5 - 5.1 mmol/L 11/23/2023 11:20 PM EDT [facility] Chloride 91(L) 98 - 107 mmol/L 11/23/2023 11:20 PM EDT [facility] CO2 20(L) 22 - 32 mmol/L 11/23/2023 11:20 PM EDT [facility] Anion Gap 26(H) 7 - 15 mmol/L 11/23/2023 11:20 PM EDT [facility] Glucose 170(H) 70 - 120 mg/dL 11/23/2023 11:20 PM EDT [facility] Calcium 8.0(L) 8.4 - 10.2 mg/dL 11/23/2023 11:20 PM EDT [facility] Albumin 4.2 3.8 - 5.0 g/dL 11/23/2023 11:20 PM EDT [facility] Phosphorus 8.8(H) 2.5 - 4.8 mg/dL 11/23/2023 11:20 PM EDT [facility] Blood Venous blood specimen / Unknown Venipuncture / Unknown 11/23/2023 1:37 PM EDT 11/23/2023 6:13 PM EDT Akosua Lopez MD LAB BLOOD ORDER [facility] [address] [place] [address] documented in this encounter Visit Diagnoses Diagnosis ESRD (end stage renal disease) on dialysis (HCC)- Primary End stage renal disease [...] Advance Directives occurred with: Patient Care Teams Gra[place] Relationship Specialty Start Date End Date Tomer Garner MD [address] [phone] PCP - General 09/19/02 documented as of this encounter
--- OUTSIDE RECORDS SUMMARY | 2024-03-17 14:21 | External Medical Summary | Summary of Care ---
Author Name Unknown Organization [facility] Address [address] [place] [address] Phone [phone] Care Team Providers Care Dispatcher [employer] Name Role Phone Tomer Garner MD Primary Care Provider [phone] Reason for Visit * Reason Comments Outpatient Testing Encounter Details Date Type Department Care Team ([facility] st Contact Info) Description 12/18/2023 2:30 PM EDT Laboratory Laboratory, [place] [address] [place] [id number] [facility] [address] [place] [address] 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 chronic kidney disease, not on chronic dialysis (HCC); ESRD on peritoneal dialysis (HCC) Allergies No known active allergiesdocumented as of this encounter (statuses as of 12/18/2023) Medications Medication Sig Dispensed Refills Start Date End Date Status Lovastatin 10 MG Oral TabletIndications: Kidney replaced by transplant Take 1 Tablet by mouth in the morning. 90 Tablet 3 09/28/2022 Active cycloSPORINE Modified 25 MG Oral CapsuleIndications [...] morning. 90 Tablet 3 11/29/2023 Active Retacrit 74306 UNIT/ML Injection Solution (Epoetin melita-epbx ESRD) Inject 0.65 mL under the skin once a week. 3 mL 0 12/04/2023 01/03/2024 Active Syringe 21G X 1" 3 ML Retacrit 13.000 U weekly. 12 Each 6 12/04/2023 Active documented as of this encounter (statuses as of 12/18/2023) Active Problems Problem Noted Date Diagnosed Date [...] as of this encounter (statuses as of 12/18/2023) Resolved Problems Problem Noted Date Diagnosed Date [...] as of this encounter (statuses as of 12/18/2023) Immunizations Name Administration Dates Next Due COVID-19 mRNA, LNP-s, No Pre serve, 2-Dose Series (Moderna) 11/23/2020,10/18/2020 DTP Vaccine 1981,1981,1981 HEP B - Hepatitis B (Dialysis/Immumocomp Pt) 05/02/2023,04/04/2023 MMR - Measles/Mumps/Rubella Vaccine 05/11/1982 OPV - Polio Virus Vaccine (Oral) 1981,04/11 Pneumococcal Conjugate Vacci ne, 20-valent ([id number]) 11/17/2022 Pneumococcal Polysaccharide PPV23 (Pneumovax) 02/03/2004 Seasonal [...] Date Recorded PHQ Adult Total Score 0 11/06/2023 Hunger Vital Sign Answer Date Recorded Within [...] Team (Late st Contact Info) Description 11/29/2023 Plan of Care Documentation Home Dialysis [address] [place] [address] 12/26/2023 1:00 PM EDT Office Visit Home Dialysis [address] [place] [address] [facility], Peritoneal Dialysis [address] [place] [address] 01/10/2024 8:00 AM EDT Treatment Home Dialysis [address] [place] [address] Nurse, Lance Bee [address] [place] [address] 02/08/2024 1:00 PM EDT Office Visit Home Dialysis [address] [place] [address] [facility], Peritoneal Dialysis [address] [place] [address] 02/10/2024 8:00 AM EDT Treatment Home Dialysis [address] [place], [place] [address] Nurse, Lance [employer] Cristal [address] [place], [place] [address] 03/05/2024 1:00 PM EDT Office Visit Home Dialysis [address] [place], [place] [address] [facility], Peritoneal Dialysis [address] [place], [place] [address] 03/11/2024 8:00 AM EDT Treatment Home Dialysis [address] [place], [place] [phone] Nurse, [employer] Cristal [address] [place], [place] [address] 03/19/2024 1:00 PM EDT Office Visit Home Dialysis [address] [place], [place] [address] [facility]ialysis [address] [facility] [place] [address] 04/11/2024 8:00 AM EDT Treatment Home Dialysis [address] [place], [place] [address] Nurse, Lance [employer] Cristal [address] [place], [place] [address] 04/29/2024 1:00 PM EDT Office Visit Home Dialysis [address] [place], [place] [address] [facility], Peritoneal Dialysis [address] [place] [address] 05/12/2024 8:00 AM EDT Treatment Home Dialysis [address] [place], [place] [address] Nurse, [employer] Cristal [address] [place], [place] [address] 06/07/2024 1:00 PM EDT Office Visit Home Dialysis [address] [place], [place] [address] [facility], Peritoneal Dialysis [address] [place] [facility] [place] [address] 06/11/2024 8:00 AM EDT Treatment Home Dialysis [address] [place], [place] [phone] Nurse, [employer] Cristal [address] [place], [place] [address] 06/25/2024 1:00 PM EDT Office Visit Home Dialysis [address] [place], [place] [address] [facility], Peritoneal Dialysis [address] [place] [facility] [place] [address] 07/12/2024 8:00 AM EDT Treatment Home Dialysis [address] [place], [place] [phone] Nurse, [employer] Cristal [address] [place] [address] 07/22/2024 1:00 PM EST Office Visit Home Dialysis [address] [place], [place] [address] [facility], Peritoneal Dialysis [address] [place] [facility] [place] [address] 08/11/2024 8:00 AM EST Treatment Home Dialysis [address] [place], [place] [address] Nurse, Lance [employer] Cristal [address] [place] [address] 08/20/2024 1:00 PM EST Office Visit Home Dialysis [address] [place], [place] [address] [facility], Peritoneal Dialysis [address] [place] [facility] [place] [address] Pending Results Name Type Priority Associated Diagnoses Date /Time ALT Lab STAT 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 chronic kidney disease, not on chronic dialysis (HCC) ESRD on peritoneal dialysis ([facility]) 12/18/2023 2:37 PM EDT BUN Lab STAT 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 chronic kidney disease, not on chronic dialysis (HCC) ESRD on peritoneal dialysis (HCC) 12/18/2023 2:37 PM EDT POTASSIUM Lab STAT 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 chronic kidney disease, not on chronic dialysis (HCC) ESRD on peritoneal dialysis ([facility]) 12/18/2023 2:37 PM EDT IRON SCREEN, INCLUDING TIBC Lab STAT 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 chronic kidney disease, not on chronic dialysis (HCC) ESRD on peritoneal dialysis ([facility]) 12/18/2023 2:37 PM EDT ADJUSTED CALCIUM PHOSPHORUS PRODUCT Lab STAT 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 chronic kidney disease, not on chronic dialysis (HCC) ESRD on peritoneal dialysis ([facility]) 12/18/2023 2:37 PM EDT CREATININE Lab Routine 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 chronic kidney disease, not on chronic dialysis (HCC) ESRD on peritoneal dialysis ([facility]) 12/18/2023 2:37 PM EDT CO2 Lab STAT 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 chronic kidney disease, not on chronic dialysis (HCC) ESRD on peritoneal dialysis ([facility]) 12/18/2023 2:37 PM EDT FERRITIN Lab STAT 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 chronic kidney disease, not on chronic dialysis (HCC) ESRD on peritoneal dialysis ([facility]) 12/18/2023 2:37 PM EDT 25-HYDROXY VITAMIN D Lab Routine 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 chronic kidney disease, not on chronic dialysis (HCC) ESRD on peritoneal dialysis ([facility]) 12/18/2023 2:37 PM EDT CBC Lab Routine 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 chronic kidney disease, not on chronic dialysis (HCC) ESRD on peritoneal dialysis ([facility]) 12/18/2023 2:37 PM EDT PTH Lab STAT 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 chronic kidney disease, not on chronic dialysis (HCC) ESRD on peritoneal dialysis (HCC) 12/18/2023 2:37 PM EDT ALUMINUM Lab STAT 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 chronic kidney disease, not on chronic dialysis (HCC) ESRD on peritoneal dialysis ([facility]) 12/18/2023 2:37 PM EDT HEPATITIS B SURFACE ANTIGEN Lab STAT 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 chronic kidney disease, not on chronic dialysis (HCC) ESRD on peritoneal dialysis ([facility]) 12/18/2023 2:37 PM EDT HEPATITIS B SURFACE ANTIBODY Lab STAT 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 chronic kidney disease, not on chronic dialysis (HCC) ESRD on peritoneal dialysis (HCC) 12/18/2023 2:37 PM EDT HEPATITIS B CORE ANTIBODY IGM Lab Routine 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 chronic kidney disease, not on chronic dialysis (HCC) ESRD on peritoneal dialysis (HCC) 12/18/2023 2:37 PM EDT HEPATITIS B CORE ANTIBODIES IGG AND IGM Lab Routine 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 chronic kidney disease, not on chronic dialysis (HCC) ESRD on peritoneal dialysis (HCC) 12/18/2023 2:37 PM EDT HEPATITIS C ANTIBODY Lab Routine 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 chronic kidney disease, not on chronic dialysis (HCC) ESRD on peritoneal dialysis (HCC) 12/18/2023 2:37 PM EDT Health Maintenance Due Date Last [...] Advance Directives occurred with: Patient Care Teams Dispatcher [employer] Relationship Specialty Start Date End Date Tomer Garner MD [address] [place] [address] PCP - General 09/19/02 documented as of this encounter
--- OUTSIDE RECORDS SUMMARY | 2024-03-17 14:21 | External Medical Summary | Summary of Care ---
Author Name Unknown Organization [facility] Address [address] [place] [address] Phone [phone] Care Team Providers Care Public Policy Analyst Name Role Phone Tomer Garner MD Primary Care Provider Encounter Details Date Type Department Care Team (Late st Contact Info) Description 12/04/2023 1:00 PM EDT Office Visit Home Dialysis Lance [address] [place] [address] [facility], Peritoneal Dialysis [address] [place] [address] Anemia of renal disease* Allergies No known active allergiesdocumented as of this encounter (statuses as of 12/27/2023) Medications Medication Sig Dispensed Refills Start Date [...] Additional Information Patient not taking.Reported on 12/04/2023 Retacrit 10332 UNIT/ML Injection Solution (Epoetin melita-epbx ESRD) Inject 0.65 mL under the skin once a week. 3 mL 0 12/04/2023 4 Active Syringe 21G X 1" 3 ML Retacrit 13.000 U weekly. 12 Each 6 12/04/2023 Active Lovastatin 10 MG Oral TabletIndications :Kidney [...] Date End Date Status Epoetin Melita-epbx (Retacrit) 67848 UNIT/ML inj 13,000 UnitsIndications:Anemia of renal disease 15039 Units SC ONCE 12/04/2023 12/04/2023 Ended documented as of this encounter (statuses as of 12/27/2023) Active Problems Problem Noted Date Diagnosed Date [...] as of this encounter (statuses as of 12/27/2023) Resolved Problems Problem Noted Date Diagnosed Date [...] as of this encounter (statuses as of 12/27/2023) Immunizations Name Administration Dates Next Due COVID-19 mRNA, LNP-s, No Pre serve, 2-Dose Series (Moderna) 11/23/2020,10/18/2020 DTP Vaccine 1981,1981,1981 HEP B - Hepatitis B (Dialysis/Immumocomp Pt) 05/02/2023,04/04/2023 MMR - Measles/Mumps/Rubella Vaccine 05/11/1982 OPV - Polio Virus Vaccine (Oral) 1981,04/11 Pneumococcal Conjugate Vacci ne, 20-valent ([id number]) 11/17/2022 Pneumococcal Polysaccharide PPV23 (Pneumovax) 02/03/2004 Seasonal [...] Sign Reading Time Taken Comments Blood Pressure 127/71 12/04/2023 1:06 PM EDT Pulse 84 12/04/2023 1:06 PM EDT Temperature 37 C (98.6 F) 12/04/2023 1:06 PM EDT Respiratory Rate 18 12/04/2023 1:06 PM EDT Oxygen Saturation 96% 12/04/2023 1:06 PM EDT Inhaled Oxygen Concentration - - Weight 132.6 kg (292 lb 4.8 oz) 12/04/2023 1:06 PM EDT Height - - Body Mass Index 41.94 10/28/2023 6:10 PM EST documented in this [...] Progress Notes * Sophia Hernandez RN - 12/04/2023 2:08 PM EDT Peritoneal dialysis monthly visit Labs and meds reviewed copy given to patient Reviewed patient's diet and he states that they understand dietary restrictions and related lab results: yes Is the Hepatitis B Vaccine due today? no Anemia Management Risks/ benefits of Epoetin therapy were addressed with the patient this month. Yes All questions were answered. New or recurrent malignancy? none reported [place]ed [place]: [place] [address] units weekly dose given today Pain w/exchanges no Patient brought records from home yes Home record scanned into nursing notes? Yes share source Blood pressure's at home 146//92 Verified Transfer Set connection and reviewed with patient: Yes Exit site clean and dry with no redness pain or drainage Signs and symptoms of exit [...] do manual exchange checking for cloudy fluid. Pt not diabetic Capd volume 2500 ml , # Exchanges 1 , Dianeal used Icodextran 10 hr dwell time , UF average UF 500 ml Cycler settings:4 cycles, 2800 ml fill volume, 10 hr treatment time, 1:54 dwell time. Last fill 2500 ml 1.5% dianeal fluid Dianeal used 2.5% average nightly UF 2148 ml Pt with 0 hour dry time Last [facility] 11/23/23 Kt/V 1.51, Dr. Lopez aware of below kinetic result Transplant status active Reviewed process for ordering monthly dialysis supplies using the calendar provided: yes Reviewed contact phone numbers for the Peritoneal Dialysis supply company as well as the Dialysis clinic and the on-call nurse via the hospital wash plant operator: yes Questions Pt to move to [facility] on 12/25/23 for summer. Orozco to be updated for pt change of address and delivery change during those months. PT will continue ordered treatments * Karrie Russo TECH - 12/04/2023 1:27 PM EDT Patient was instructed to not [...] Home Dialysis [address], [place] [address] Nurse, Lance [address] [place] [address] 02/08/2024 1:00 PM EDT Office Visit Home Dialysis [address], [place] [address] [place], Peritoneal Dialysis [address] [facility] [place], [place] [address] 02/10/2024 8:00 AM EDT Treatment Home Dialysis [address], [place] [address] Nurse, [place] [address] 03/05/2024 1:00 PM EDT Office Visit Home Dialysis [address], [place] [address] [place], Peritoneal Dialysis [address] [facility] [place] [address] 03/11/2024 8:00 AM EDT Treatment Home Dialysis [address], [place] [address] Nurse, Lance Bee [address] [place] [address] 04/11/2024 8:00 AM EDT Treatment Home Dialysis [address], [place] [address] Nurse, Lance Bee [address], [place] [address] 04/29/2024 1:00 PM EDT Office Visit Home Dialysis [address] [place], [place] [address] [facility], Peritoneal Dialysis [address] [place] [address] 05/12/2024 8:00 AM EDT Treatment Home Dialysis [address], [place] [phone] Nurse, Lance [employer] [place], [place] 06/07/2024 1:00 PM EDT Office Visit Home Dialysis [address] [place], [place] [address] [place], Peritoneal Dialysis [address] [place] [address] 06/11/2024 8:00 AM EDT Treatment Home Dialysis [address], [place] [phone] Nurse, Lance Bee [address], [place] [address] 06/25/2024 1:00 PM EDT Office Visit Home Dialysis [address] [place], [place] [address] [place] [address] [facility] [place] [address] 07/12/2024 8:00 AM EDT Treatment Home Dialysis [address], [place] [phone] Nurse, Lance Bee [address], [place] [address] 07/22/2024 1:00 PM EST Office Visit Home Dialysis [address] [phone] [place], Peritoneal Dialysis [address] [facility] [place] [address] 08/11/2024 8:00 AM EST Treatment Home Dialysis [address] [phone] Nurse, Lance [address] [place] [address] 08/20/2024 1:00 PM EST Office Visit Home Dialysis [address] [place] [address] [place], Peritoneal Dialysis [address] [place] [id number] Health Maintenance Due Date Last Done Comments [...] this encounter Visit Diagnoses Diagnosis Anemia of renal disease- Primary Anemia in chronic kidney disease documented in this encounter Administered Medications Inactive Administered Medications - up to 3 most recent administrations Medication Order MAR Action Action Date Dose Rate Site Epoetin Melita-epbx (Retacrit) 89277 UNIT/ML inj 13,000 Units 13,000 Units, Subcutaneous, ONCE, On 12/04/23 at 1415, For 1 dose Given 12/04/2023 2:06 PM EDT 13,000 Units Abdomen Right Upper documented in this encounter Advance Directives Latest [...] Advance Directives occurred with: Patient Care Teams Public Policy Analyst Relationship Specialty Start Date End Date Tomer Garner MD [address] [phone] PCP - General 09/19/02 documented as of this encounter
--- OUTSIDE RECORDS SUMMARY | 2024-03-17 14:21 | External Medical Summary | Summary of Care ---
Author Name Unknown Organization [facility] Address [address] [place] [address] Phone [phone] Care Team Providers Care Bale Sewer Name Role Phone Tomer Garner MD Primary Care Provider Reason for Referral * Precert (Within 10 days (routine)) - Pending Review Specialty Diagnoses / Procedures Referred By Contac t Referred To Contact Radiology Diagnoses End stage renal disease (HCC) Pre-transplant evaluation for ESRD (end stage renal disease) Procedures NM MYOCARD PERF IMG SPECT MULT STUDIES WITH PHARM Tomer Baker MD [address] [place] [address] Referral ID Status Reason Start Date Expiration Date Visits Requested Visits Authorized [id number] Pending Review Precert 04/12/2024 999 999 Reason for Visit * Reason Onset Date Comments Information 12/28/2023May 04 Encounter Details Date Type Department Care Team (Late st Contact Info) Description [facility] [address] [place] [address] Bernie Her, RN [facility] [place] [address] Information (May 04) Allergies No known active [...] % External CreamIndications:E SRD on peritoneal dialysis ([facility]) Apply topically to affected area daily. Apply to PD exit catheter site daily after showering and cover with bandage 15 g 2 09/08/2023 Active Dialyvite Oral Tablet Take 1 Tablet by mouth in the morning. 30 Tablet 11 09/28/2023 Active Losartan Potassium 50 MG Oral Tablet (Cozaar) Take 1 Tablet by mouth in the morning. 30 Tablet 11 11/21/2023 Active Retacrit 03482 UNIT/ML Injection Solution (Epoetin melita-epbx ESRD) Inject [...] (Oral) 1981,04/11 Pneumococcal Conjugate Vacci ne, 20-valent ([id number]) 11/17/2022 Seasonal Influenza, PF, 6 M & [...] [address] [place] [address] Nurse, [employer] [address] [address] [place] [address] 02/08/2024 1:00 PM EDT Office Visit Home Dialysis Cl[address] [place] [address] [place], Peritoneal Dialysis [address] [place] [address] 02/10/2024 8:00 AM EDT Treatment Home Dialysis Cl[address] [place] [address] Nurse, [employer] [address] [address] [place] [address] 03/05/2024 1:00 PM EDT Office Visit Home Dialysis [address], [place] [address] [facility], Peritoneal Dialysis [address] [place] [facility] [address] 03/11/2024 8:00 AM EDT Treatment Home Dialysis [address]u [address] [place] [address] Nurse, [employer] [place] [address] [place] [address] 04/11/2024 8:00 AM EDT Treatment Home Dialysis Cl[address] [place] [address] Nurse, [employer] [address] [place] [address] 04/29/2024 1:00 PM EDT Office Visit Home Dialysis [address], [place] [address] [facility], Peritoneal Dialysis [address] [place] [address] 05/12/2024 8:00 AM EDT Treatment Home Dialysis [address], [place] [phone] Nurse, [employer] [place] [address], [place] [address] 06/07/2024 1:00 PM EDT Office Visit Home Dialysis [address], [place] [phone] [facility], Peritoneal Dialysis [address] [place] [facility] [place] [address] 06/11/2024 8:00 AM EDT Treatment Home Dialysis [address], [place] [phone] Nurse, [employer] [address], [place] [address] 06/25/2024 1:00 PM EDT Office Visit Home Dialysis Cl[address], [place] [address] [facility], Peritoneal Dialysis [address] [place] [facility] [place] [address] 07/12/2024 8:00 AM EDT Treatment Home Dialysis Cl[address], [place] [phone] Nurse, [employer] [place] [address], [place] [address] 07/22/2024 1:00 PM EST Office Visit Home Dialysis [address], [place] [address] [facility], Peritoneal Dialysis [address] [place] [facility] [place] [address] 08/11/2024 8:00 AM EST Treatment Home Dialysis Clau [address] [phone] Nurse, Lance [address] [place] [address] 08/20/2024 1:00 PM EST Office Visit Home Dialysis Clau [address] [phone] [place], Peritoneal Dialysis [address] [place] [address] Scheduled Orders Name Type Priority Associated Diagnoses [...] examination documented in this encounter Advance Directives Latest [...] Advance Directives occurred with: Patient Care Teams Bale Sewer Relationship Specialty Start Date End Date Tomer Garner MD [address] [place] [address] PCP - General 09/19/02 documented as of this encounter
--- OUTSIDE RECORDS SUMMARY | 2024-03-17 14:21 | External Medical Summary | Summary of Care ---
Author Name Unknown Organization [facility] Address [address] [place] [address] Phone [phone] Care Team Providers Care Motion Picture Printer Name Role Phone Tomer Garner MD Primary Care Provider [phone] Reason for Visit * Reason Comments Outpatient Testing Encounter Details Date Type Department Care Team ([facility] st Contact Info) Description 12/18/2023 2:30 PM EDT Laboratory Laboratory, [place] [address] [place] [phone] [facility] [address] [place] [address] 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 chronic kidney disease, [...] morning. 90 Tablet 3 11/29/2023 Active Retacrit 39813 UNIT/ML Injection Solution (Epoetin melita-epbx ESRD) Inject [...] (Oral) 1981,04/11 Pneumococcal Conjugate Vacci ne, 20-valent ([id number]) 11/17/2022 Pneumococcal Polysaccharide PPV23 (Pneumovax) 02/03/2004 Seasonal [...] [address]au [address] [place] [address] 12/26/2023 1:00 PM EDT Office Visit Home Dialysis Clau [address] [place] [address] [facility], Peritoneal Dialysis [address] [place] [address] 01/10/2024 8:00 AM EDT Treatment Home Dialysis Cl[address] [place] [address] Nurse, Lance Bee [address] [place] [address] 02/08/2024 1:00 PM EDT Office Visit Home Dialysis [address] [place] [address] [facility], Peritoneal Dialysis [address] [place] [address] 02/10/2024 8:00 AM EDT Treatment Home Dialysis [address] [place], [place] [address] Nurse, Lance [employer] [address] [place], [place] [address] 03/05/2024 1:00 PM EDT Office Visit Home Dialysis [address], [place] [address] [facility], Peritoneal Dialysis [address] [employer], [place] [address] 03/11/2024 8:00 AM EDT Treatment Home Dialysis Clau [address] [place], [place] [phone] Nurse, [employer] [address] [place], [place] [address] 03/19/2024 1:00 PM EDT Office Visit Home Dialysis [address] [place], [place] [address] [facility]itoneal Dialysis [address] [facility] [place] [address] 04/11/2024 8:00 AM EDT Treatment Home Dialysis [address] [place], [place] [address] Nurse, Lance [employer] [address] [place], [place] [address] 04/29/2024 1:00 PM EDT Office Visit Home Dialysis [address] [place], [place] [address] [facility], Peritoneal Dialysis [address] [place] [address] 05/12/2024 8:00 AM EDT Treatment Home Dialysis [address] [place], [place] [address] Nurse, [employer] [address] [place], [place] [address] 06/07/2024 1:00 PM EDT Office Visit Home Dialysis [address] [place], [place] [address] [facility], Peritoneal Dialysis [address] [place] [facility] [address] 06/11/2024 8:00 AM EDT Treatment Home Dialysis Cl[address] [place], [place] [phone] Nurse, [employer] [address] [place], [place] [address] 06/25/2024 1:00 PM EDT Office Visit Home Dialysis [address] [place], [place] [address] [facility], Peritoneal Dialysis [address] [place] [facility] [place] [address] 07/12/2024 8:00 AM EDT Treatment Home Dialysis [address] [place], [place] [phone] Nurse, [employer] [address] [place] [address] 07/22/2024 1:00 PM EST Office Visit Home Dialysis [address] [place], [place] [address] [facility], Peritoneal Dialysis [address] [place] [facility] [place] [address] 08/11/2024 8:00 AM EST Treatment Home Dialysis [address] [place], [place] [address] Nurse, Lance [employer] [address] [place] [address] 08/20/2024 1:00 PM EST Office Visit Home Dialysis [address] [place], [place] [address] [facility], Peritoneal Dialysis [address] [place] [facility] [place] [address] Pending Results Name Type Priority Associated Diagnoses Date /Time ALT Lab STAT 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 chronic kidney disease, not on chronic dialysis (HCC) ESRD on peritoneal dialysis ([facility]) 12/18/2023 2:37 PM EDT BUN Lab STAT 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 chronic kidney disease, not on chronic dialysis (HCC) ESRD on peritoneal dialysis (HCC) 12/18/2023 2:37 PM EDT POTASSIUM Lab STAT 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 chronic kidney disease, not on chronic dialysis (HCC) ESRD on peritoneal dialysis ([facility]) 12/18/2023 2:37 PM EDT IRON SCREEN, INCLUDING TIBC Lab STAT 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 chronic kidney disease, not on chronic dialysis (HCC) ESRD on peritoneal dialysis ([facility]) 12/18/2023 2:37 PM EDT ADJUSTED CALCIUM PHOSPHORUS PRODUCT Lab STAT 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 chronic kidney disease, not on chronic dialysis (HCC) ESRD on peritoneal dialysis ([facility]) 12/18/2023 2:37 PM EDT CREATININE Lab Routine 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 chronic kidney disease, not on chronic dialysis (HCC) ESRD on peritoneal dialysis ([facility]) 12/18/2023 2:37 PM EDT CO2 Lab STAT 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 chronic kidney disease, not on chronic dialysis (HCC) ESRD on peritoneal dialysis ([facility]) 12/18/2023 2:37 PM EDT FERRITIN Lab STAT 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 chronic kidney disease, not on chronic dialysis (HCC) ESRD on peritoneal dialysis ([facility]) 12/18/2023 2:37 PM EDT 25-HYDROXY VITAMIN D Lab Routine 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 chronic kidney disease, not on chronic dialysis (HCC) ESRD on peritoneal dialysis ([facility]) 12/18/2023 2:37 PM EDT CBC Lab Routine 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 chronic kidney disease, not on chronic dialysis (HCC) ESRD on peritoneal dialysis ([facility]) 12/18/2023 2:37 PM EDT PTH Lab STAT 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 chronic kidney disease, not on chronic dialysis (HCC) ESRD on peritoneal dialysis (HCC) 12/18/2023 2:37 PM EDT ALUMINUM Lab STAT 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 chronic kidney disease, not on chronic dialysis (HCC) ESRD on peritoneal dialysis ([facility]) 12/18/2023 2:37 PM EDT HEPATITIS B SURFACE ANTIGEN Lab STAT 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 chronic kidney disease, not on chronic dialysis (HCC) ESRD on peritoneal dialysis ([facility]) 12/18/2023 2:37 PM EDT HEPATITIS B SURFACE [...] Advance Directives occurred with: Patient Care Teams Motion Picture Printer Relationship Specialty Start Date End Date Tomer Garner MD [address] [place] [address] PCP - General 09/19/02 documented as of this encounter
--- OUTSIDE RECORDS SUMMARY | 2024-03-17 14:21 | External Medical Summary | Summary of Care ---
Author Name Unknown Organization [facility] Address [address] [place] [address] Phone [phone] Care Team Providers Care Poultry Husbandry Teacher Name Role Phone Tomer Garner MD Primary Care Provider [phone] Reason for Visit * Reason Onset Date Comments Medication Refill 12/23/2023 Encounter Details Date Type Department Care Team (Late st Contact Info) Description 12/23/2023 Refill Nephrology, [place] [address] [place] [address] Lisbeth Guerra MD [address] [place] [address] Kidney replaced by transplant Allergies No known active allergiesdocumented as of this encounter (statuses as of 12/25/2023) Medications Medication Sig Dispensed Refills Start Date End Date Status cycloSPORINE Modified 25 MG Oral CapsuleIndication s:Kidney [...] morning. 90 Tablet 3 11/29/2023 Active Retacrit 21383 UNIT/ML Injection Solution (Epoetin melita-epbx ESRD) Inject [...] the morning. 90 Tablet 3 12/25/2023 Active Lovastatin 10 MG Oral TabletIndications :Kidney replaced by transplant Take 1 Tablet by mouth in the morning. 90 Tablet 3 09/28/2022 4 Discontinue d(Refill) documented as of this [...] (Oral) 1981,04/11 Pneumococcal Conjugate Vacci ne, 20-valent ([id number]) 11/17/2022 Seasonal Influenza, PF, 6 M & [...] encounter Miscellaneous Notes * Telephone Encounter - Lisbeth Guerra MD - 12/25/2023 3:25 PM EDT Signed Prescriptions: Disp Refills Lovastatin 10 MG Oral Tablet 90 Tab*3 Sig: Take 1 Tablet by mouth in the morning. Authorizing Provider: LISBETH GUERRA * Telephone Encounter - Maryjane Buck LPN - 12/25/2023 2:31 PM EDTPending Prescriptions: Disp Refills Lovastatin 10 MG Oral Tablet 90 Tab*3 Sig: Take 1 Tablet by mouth in the morning. * Telephone Encounter - Maryjane Buck LPN - 12/25/2023 2:30 PM EDT Please review and approve medication refill request. Maintenance Dialysis History Start End Type Center Comments 09/24/2023 Continuous Cycling Peritoneal Dialysis [facility]YSIS AT HOME [facility] [address] 03/28/2023 09/24/2023 In-center Hemodialysis [facility] [facility] Current Dialysis Center Information [facility]YSIS AT [facility] [address] Address: [place] [address] 01/26/2023 (in office), 09/03/2020 (telemedicine) documented in this encounter Plan of Treatment Upcoming Encounters Date Type Department Care Team (Late st Contact Info) Description 12/26/2023 1:00 PM EDT Office Visit Home Dialysis [facility] [address] [place] [phone] [facility] [address] [facility] [place] [address] 01/10/2024 8:00 AM EDT Treatment Home Dialysis [facility] [address] [phone] Nurse, Lance Bee [address] [id number] 02/08/2024 1:00 PM EDT Office Visit Home Dialysis [facility] [address] [facility] [address] [phone] [facility] [address] [facility] [place] [address] 02/10/2024 8:00 AM EDT Treatment Home Dialysis [facility] [address] [place], [place] [address] Nurse, Lance Bee [address] [place], [place] [address] 03/05/2024 1:00 PM EDT Office Visit Home Dialysis [facility] [address] [place], [place] [address] [facility] [address] [place] [address] 03/11/2024 8:00 AM EDT Treatment Home Dialysis [facility] [address] [place], [place] [address] Nurse, Lancebaltazar Bee [address] [place], [place] [address] 03/28/2024 1:00 PM EDT Office Visit Home Dialysis [facility] [address] [place], [place] [address] [facility] [address] [place], [place] [address] 04/11/2024 8:00 AM EDT Treatment Home Dialysis [facility] [address] [place], [place] [address] Nurse, Lance [employer] Cristal [address] [place], [place] [address] 04/29/2024 1:00 PM EDT Office Visit Home Dialysis [facility] [address] [place], [place] [address] [facility] [address] [place], [place] [address] 05/12/2024 8:00 AM EDT Treatment Home Dialysis [facility] [address] [place], [place] [address] Nurse, [employer] [place], [place] [address] 06/07/2024 1:00 PM EDT Office Visit Home Dialysis [facility] [address] [place], [place] [address] [facility] [address] [facility] [place] [address] 06/11/2024 8:00 AM EDT Treatment Home Dialysis [facility] [address] [place], [place] [phone] Nurse, Lance [employer] Cristal [address] [place], [place] [address] 06/25/2024 1:00 PM EDT Office Visit Home Dialysis [facility] [address] [place], [place] [address] [facility] [address] [facility] [place], [place] [address] 07/12/2024 8:00 AM EDT Treatment Home Dialysis [facility] [address] [place], [place] [address] Nurse, [employer] Cristal [address] [place], [place] [address] 07/22/2024 1:00 PM EST Office Visit Home Dialysis [facility] [address] [place], [place] [address] [facility] [address] [facility] [place], [place] [address] 08/11/2024 8:00 AM EST Treatment Home Dialysis [facility] [address] [place], [place] [address] Nurse, Lance [employer] Cristal [address] [place], [place] [address] 08/20/2024 1:00 PM EST Office Visit Home Dialysis [facility] [address] [place] [address] [facility], Peritoneal Dialysis [address] [place] [address] Health Maintenance Due Date Last Done Comments [...] as of this encounter Visit Diagnoses Diagnosis Kidney replaced by transplant documented in this encounter Advance Directives Latest [...] Advance Directives occurred with: Patient Care Teams Poultry Husbandry Teacher Relationship Specialty Start Date End Date Tomer Garner MD [address] [place] [address] PCP - General 09/19/02 documented as of this encounter
--- OUTSIDE RECORDS SUMMARY | 2024-03-17 14:21 | External Medical Summary | Summary of Care ---
Author Name Unknown Organization [facility] Address [address] [place] [address] Phone [phone] Care Team Providers Care Laser Beam Trim Operator Name Role Phone Tomer Garner MD Primary Care Provider [phone] Reason for Visit * Reason Onset Date Comments Medication Refill 12/23/2023 Encounter Details Date Type Department Care Team (Late st Contact Info) Description 12/23/2023 Refill Nephrology, [place] [address] [place] [address] Araceli Melara MD [address] [place] [address] Kidney replaced by transplant Allergies [...] morning. 90 Tablet 3 11/29/2023 Active Retacrit 09055 UNIT/ML Injection Solution (Epoetin melita-epbx ESRD) Inject [...] the evening 360 Capsule 3 12/25/2023 Active cycloSPORINE Modified 25 MG [...] (Oral) 1981,04/11 Pneumococcal Conjugate Vacci ne, 20-valent ([id number]) 11/17/2022 Seasonal Influenza, PF, 6 M & [...] encounter Miscellaneous Notes * Telephone Encounter - Araceli Melara MD - 12/25/2023 10:39 PM EDTSigned Prescriptions: Disp Refills cycloSPORINE Modified 25 MG Oral Capsule 360 Ca*3 Sig: Take 2 capsules in the morning and 2 capsules in the evening Authorizing Provider: ARACELI MELARA * Telephone Encounter - Maryjane Buck LPN - 12/25/2023 2:30 PM EDTPending Prescriptions: Disp Refills cycloSPORINE Modified 25 MG Oral Capsule 360 Ca*3 Sig: Take 2 capsules in the morning and 2 capsules in the evening * Telephone Encounter - Maryjane Buck LPN - 12/25/2023 2:29 PM EDT Please review and approve medication refill request. Maintenance Dialysis History Start End Type Center Comments 09/24/2023 Continuous Cycling Peritoneal Dialysis [facility]YS[facility] AT HOME [facility] [address] 03/28/2023 09/24/2023 In-center Hemodialysis [facility] [facility] Current Dialysis Center Information [facility]YSIS AT HOME [facility] [address] Address: [place] [address] 01/26/2023 (in office), 09/03/2020 (telemedicine) documented in this encounter Plan of Treatment Upcoming Encounters Date Type Department Care Team (Late st Contact Info) Description 12/26/2023 1:00 PM EDT Office Visit Home Dialysis [facility] [address] [phone] [place], Peritoneal Dialysis [address] [facility] [place] [address] 01/10/2024 8:00 AM EDT Treatment Home Dialysis [facility] [address] [phone] Nurse, Lance Bee [address] [phone] 02/08/2024 1:00 PM EDT Office Visit Home Dialysis [facility] [address] [facility] [address] [phone] [place], Peritoneal Dialysis [address] [facility] [place] [address] 02/10/2024 8:00 AM EDT Treatment Home Dialysis [facility] [address] [place], [place] [address] Nurse, Lance [employer] Cristal [address] [place], [place] [address] 03/05/2024 1:00 PM EDT Office Visit Home Dialysis [facility] [address] [place], [place] [address] [place], Peritoneal Dialysis [address] [place] [address] 03/11/2024 8:00 AM EDT Treatment Home Dialysis [facility] [address] [place], [place] [address] Nurse, [employer] Cristal [address] [place], [place] [address] 03/28/2024 1:00 PM EDT Office Visit Home Dialysis [facility] [address] [place], [place] [address] [place], Peritoneal Dialysis [address] [facility] [place] [address] 04/11/2024 8:00 AM EDT Treatment Home Dialysis [facility] [address] [place], [place] [address] Nurse, [employer] Cristal [address] [place], [place] [address] 04/29/2024 1:00 PM EDT Office Visit Home Dialysis [facility] [address] [place], [place] [address] [place], Peritoneal Dialysis [address] [place], [place] [address] 05/12/2024 8:00 AM EDT Treatment Home Dialysis [facility] [address] [place], [place] [address] Nurse, Lance Jessica [place], [place] [address] 06/07/2024 1:00 PM EDT Office Visit Home Dialysis [facility] [address] [place], [place] [address] [facility], Peritoneal Dialysis [address] [place] [address] 06/11/2024 8:00 AM EDT Treatment Home Dialysis [facility] [address] [place], [place] [address] Nurse, Lance Bee [place], [place] [address] 06/25/2024 1:00 PM EDT Office Visit Home Dialysis [facility] [address] [place], [place] [address] [place], Peritoneal Dialysis [address] [place], [place] [address] 07/12/2024 8:00 AM EDT Treatment Home Dialysis [facility] [address] [place], [place] [address] Nurse, Lancebaltazar Bee [place], [place] [address] 07/22/2024 1:00 PM EST Office Visit Home Dialysis [facility] [address] [place], [place] [address] [place], Peritoneal Dialysis [address] [place], [place] [address] 08/11/2024 8:00 AM EST Treatment Home Dialysis [facility] [address] [place], [place] [address] Nurse, Lancebaltazar Bee [place], [place] [address] 08/20/2024 1:00 PM EST Office Visit Home Dialysis [facility] [address] [place], [place] [address] [place], Peritoneal Dialysis [address] [place] [address] Health Maintenance Due Date Last Done Comments [...] Advance Directives occurred with: Patient Care Teams Laser Beam Trim Operator Relationship Specialty Start Date End Date Tomer Garner MD [address] [place] [address] PCP - General 09/19/02 documented as of this encounter
--- OUTSIDE RECORDS SUMMARY | 2024-03-17 14:21 | External Medical Summary | Summary of Care ---
Author Name Unknown Organization [facility] Address [address] [facility] [place] [address] Phone [phone] Care Team Providers Care Perforator Typist Name Role Phone Tomer Garner MD Primary Care Provider [phone] Reason for Visit * Reason Onset Date Comments Patient Instructions 12/19/2023 Encounter Details Date Type Department Care Team ([facility] st Contact Info) Description 12/19/2023 Telephone Home Dialysis [facility] [address] [place] [address] Lana Soto, RN Patient Instructions Allergies No known active allergiesdocumented as of this encounter (statuses as of 12/19/2023) Medications Medication Sig Dispensed Refills Start Date [...] morning. 90 Tablet 3 11/29/2023 Active Retacrit 92122 UNIT/ML Injection Solution (Epoetin melita-epbx ESRD) Inject 0.65 mL under the skin once a week. 3 mL 0 12/04/2023 01/03/2024 Active Syringe 21G X 1" 3 ML Retacrit 13.000 U weekly. 12 Each 6 12/04/2023 Active documented as of this encounter (statuses as of 12/19/2023) Active Problems Problem Noted Date Diagnosed Date [...] as of this encounter (statuses as of 12/19/2023) Resolved Problems Problem Noted Date Diagnosed Date [...] as of this encounter (statuses as of 12/19/2023) Immunizations Name Administration Dates Next Due COVID-19 mRNA, LNP-s, No Pre serve, 2-Dose Series (Moderna) 11/23/2020,10/18/2020 DTP Vaccine 1981,1981,1981 HEP B - Hepatitis B (Dialysis/Immumocomp Pt) 05/02/2023,04/04/2023 MMR - Measles/Mumps/Rubella Vaccine 05/11/1982 OPV - Polio Virus Vaccine (Oral) 1981,04/11 Pneumococcal Conjugate Vacci ne, 20-valent ([id number]) 11/17/2022 Seasonal Influenza, PF, 6 M & [...] encounter Miscellaneous Notes * Telephone Encounter - Lana Soto RN - 12/19/2023 2:35 PM EDT Chandan called to report that he will be running out of 1.5% and 2.5% Dianeal bags and that he only has 1 Icodextran Ultrabag left. He does have some Icodextran bags for the cycler. I noted in his [employer] supply orders that he has Ultraset Disconnect Y sets with luer connector; he confirmed that he has a box of them. I informed him that he can use an Icodextran bag for the cycler and connect it to the Ultraset to use for his manual exchange. [place] supply [place] He will stop by [facility] clinic on 12/[address] to the campground to pick up man some bags to get through the weekend until his delivery arrives. He did get labs drawn yesterday. documented in this encounter Plan of Treatment Upcoming Encounters Date Type Department Care Team (Late st Contact Info) Description 11/29/2023 Plan of Care Documentation Home Dialysis [facility] [address] [place] [address] 12/26/2023 1:00 PM EDT Office Visit Home Dialysis [facility] [address] [place] [address] [place], Peritoneal Dialysis [address] [facility] [place] [address] 01/10/2024 8:00 AM EDT Treatment Home Dialysis [facility] [address] [place], [place] [address] Nurse, [employer] Cristal [address] [place], [place] [address] 02/08/2024 1:00 PM EDT Office Visit Home Dialysis [facility] [address] [place], [place] [address] [place], Peritoneal Dialysis [address] [facility] [place] [address] 02/10/2024 8:00 AM EDT Treatment Home Dialysis [facility] [address] [place], [place] [address] Nurse, [employer] Cristal [address] [place], [place] [address] 03/05/2024 1:00 PM EDT Office Visit Home Dialysis [facility] [address] [place], [place] [address] [place], Peritoneal Dialysis [address] [facility] [place], [place] [address] 03/11/2024 8:00 AM EDT Treatment Home Dialysis [facility] [place], [place] [address] Nurse, [employer] Cristal [address] [place], [place] [address] 03/19/2024 1:00 PM EDT Office Visit Home Dialysis [facility] [place], [place] [address] [place], Peritoneal Dialysis [address] [facility] [place] [address] 04/11/2024 8:00 AM EDT Treatment Home Dialysis [facility] [place], [place] [address] Nurse, Lance Bee [address] [place], [place] [address] 04/29/2024 1:00 PM EDT Office Visit Home Dialysis [facility] [address] [place], [place] [address] [place], Peritoneal Dialysis [address] [place] [address] 05/12/2024 8:00 AM EDT Treatment Home Dialysis [facility] [place], [place] [phone] Nurse, Lance [employer] Cristal [address] [place], [place] 06/07/2024 1:00 PM EDT Office Visit Home Dialysis [facility] [address] [place], [place] [address] [place], Peritoneal Dialysis [address] [facility] [place] [address] 06/11/2024 8:00 AM EDT Treatment Home Dialysis [facility] [address] [place], [place] [phone] Nurse, Lance Bee [address] [place], [place] [address] 06/25/2024 1:00 PM EDT Office Visit Home Dialysis [facility] [address] [place], [place] [address] [place], [facility]ialysis [facility] [address] [facility] [place] [address] 07/12/2024 8:00 AM EDT Treatment Home Dialysis [facility] [address] [place], [place] [phone] Nurse, Lance Bee [address] [place], [place] [address] 07/22/2024 1:00 PM EST Office Visit Home Dialysis [facility] [address] [phone] [place], Peritoneal Dialysis [address] [place], [place] [address] 08/11/2024 8:00 AM EST Treatment Home Dialysis [facility] [address] [place] [address] Nurse, Lance [address] [place] [address] 08/20/2024 1:00 PM EST Office Visit Home Dialysis [facility] [address] [place] [address] [place], Peritoneal Dialysis [address] [place], [place] [address] Health Maintenance Due Date Last Done Comments [...] Advance Directives occurred with: Patient Care Teams Perforator Typist Relationship Specialty Start Date End Date Tomer Garner MD [address] [id number] PCP - General 09/19/02 documented as of this encounter
--- OUTSIDE RECORDS SUMMARY | 2024-03-17 14:21 | External Medical Summary | Summary of Care ---
Author Name Unknown Organization [facility] Address [address] [place] [address] Phone [phone] Care Team Providers Care Computer Information Systems Instructor Name Role Phone Tomer Garner MD Primary Care Provider Encounter Details Date Type Department Care Team (Late st Contact Info) Description 11/29/2023 Documentation Home Dialysis [facility] [address] [place] [address] Akosua Lopez MD [address] [place] [address] Allergies No known active allergiesdocumented as of this encounter (statuses as of 12/21/2023) Medications Medication Sig Dispensed Refills Start Date [...] Additional Information Patient not taking.Reported on 12/04/2023 documented as of this encounter (statuses as of 12/21/2023) Active Problems Problem Noted Date Diagnosed Date [...] as of this encounter (statuses as of 12/21/2023) Resolved Problems Problem Noted Date Diagnosed Date [...] as of this encounter (statuses as of 12/21/2023) Immunizations Name Administration Dates Next Due COVID-19 mRNA, LNP-s, No Pre serve, 2-Dose Series (Moderna) 11/23/2020,10/18/2020 DTP Vaccine 1981,1981,1981 HEP B - Hepatitis B (Dialysis/Immumocomp Pt) 05/02/2023,04/04/2023 MMR - Measles/Mumps/Rubella Vaccine 05/11/1982 OPV - Polio Virus Vaccine (Oral) 1981,04/11 Pneumococcal Conjugate Vacci ne, 20-valent ([id number]) 11/17/2022 Seasonal Influenza, PF, 6 M & [...] shopping? (15 years old or older) No 02/21/20 23 Cognitive Status Response Date of Assessm [...] [facility] [id number] 12/26/2023 1:00 PM EDT Office Visit Home Dialysis [facility] [address] [phone] [facility], Peritoneal Dialysis [address] [place] [id number] 01/10/2024 8:00 AM EDT Treatment Home Dialysis [facility] [address] [place] [address] Nurse, [place] [address] 02/08/2024 1:00 PM EDT Office Visit Home Dialysis [facility] [address] [place] [address] [facility], Peritoneal Dialysis [address] [place] [address] 02/10/2024 8:00 AM EDT Treatment Home Dialysis [facility] [address] [place] [address] Nurse, Lance Jessica Bee [address] [place], [place] [address] 03/05/2024 1:00 PM EDT Office Visit Home Dialysis [facility] [address] [phone] [facility], Peritoneal Dialysis [address] [place] [address] 03/11/2024 8:00 AM EDT Treatment Home Dialysis [facility] [address] [place] [address] Nurse, [employer] Cristal [address] [place], [place] [address] 03/19/2024 1:00 PM EDT Office Visit Home Dialysis [facility] [place], [place] [address] [facility], Peritoneal Dialysis [address] [place] [address] 04/11/2024 8:00 AM EDT Treatment Home Dialysis [facility] [address] [place], [place] [phone] Nurse, [employer] Cristal [address] [place], [place] [address] 04/29/2024 1:00 PM EDT Office Visit Home Dialysis [facility] [place], [place] [address] [facility], Peritoneal Dialysis [address] [place] [facility] [place] [address] 05/12/2024 8:00 AM EDT Treatment Home Dialysis [facility] [place], [place] [phone] Nurse, [employer] Cristal [address] [place] [address] 06/07/2024 1:00 PM EDT Office Visit Home Dialysis [facility] [place], [place] [address] [facility], Peritoneal Dialysis [address] [facility] [address] 06/11/2024 8:00 AM EDT Treatment Home Dialysis [facility] [place], [place] [address] Nurse, [employer] Cristal [address] [place], [place] [address] 06/25/2024 1:00 PM EDT Office Visit Home Dialysis [facility] [place], [place] [address] [facility], Peritoneal Dialysis [address] [place], [place] [address] 07/12/2024 8:00 AM EDT Treatment Home Dialysis [facility] [address] [place], [place] [address] Nurse, [employer] Cap [address] [place], [place] [address] 07/22/2024 1:00 PM EST Office Visit Home Dialysis [facility] [place], [place] [address] [facility], Peritoneal Dialysis [address] [place], [place] [address] 08/11/2024 8:00 AM EST Treatment Home Dialysis [facility] [place], [place] [address] Nurse, [employer] Cap [address] [place], [place] [address] 08/20/2024 1:00 PM EST Office Visit Home Dialysis [facility] [place], [place] [id number] [facility], Peritoneal Dialysis [address] [place], [place] [address] Health Maintenance Due Date Last Done Comments [...] Advance Directives occurred with: Patient Care Teams Computer Information Systems Instructor Relationship Specialty Start Date End Date Tomer Garner MD [address] [place] [address] PCP - General 09/19/02 documented as of this encounter
--- OUTSIDE RECORDS SUMMARY | 2024-03-17 14:21 | External Medical Summary | Summary of Care ---
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 chronic kidney disease, not on chronic dialysis (HCC) ESRD on peritoneal dialysis (HCC) Procedures [place] EPOETIN MELITA, 100 UNITS ESRD [place] INJ RETACRIT ESRD ON DIALYSI Akosua Lopez MD [address] [place] [address] Dialysis At Home [address] [place] [id number] Referral ID Status Reason Start Date Expiration Date V isits Requested Visits Authorized [id number] Pending Review 08/22/2023 02/21/[phone] Encounter Details Date Type Department Care Team (Late st Contact Info) Description 12/22/2023 10:00 AM EDT Nurse Only Home Dialysis [facility] [place] [address] [facility] [address] [place] [address] Allergies No known active allergiesdocumented as of this encounter (statuses as of 12/22/2023) Medications Medication Sig Dispensed Refills Start Date [...] morning. 90 Tablet 3 11/29/2023 Active Retacrit 11668 UNIT/ML Injection Solution (Epoetin melita-epbx ESRD) Inject [...] Retacrit weekly 12 Each 6 12/20/2023 Active documented as of this encounter (statuses as of 12/22/2023) Active Problems Problem Noted Date Diagnosed Date [...] as of this encounter (statuses as of 12/22/2023) Resolved Problems Problem Noted Date Diagnosed Date [...] as of this encounter (statuses as of 12/22/2023) Immunizations Name Administration Dates Next Due COVID-19 mRNA, LNP-s, No Pre serve, 2-Dose Series (Moderna) 11/23/2020,10/18/2020 DTP Vaccine 1981,1981,1981 HEP B - Hepatitis B (Dialysis/Immumocomp Pt) 05/02/2023,04/04/2023 MMR - Measles/Mumps/Rubella Vaccine 05/11/1982 OPV - Polio Virus Vaccine (Oral) 1981,04/11 Pneumococcal Conjugate Vacci ne, 20-valent ([id number]) 11/17/2022 Seasonal Influenza, PF, 6 M & [...] Sign Reading Time Taken Comments Blood Pressure 140/74 12/22/2023 2:31 PM EDT Pulse - - Temperature - - Respiratory Rate - - Oxygen Saturation - - Inhaled Oxygen Concentration - - Weight - [...] Progress Notes * Sophia Hernandez RN - 12/22/2023 3:09 PM EDT Pt arrived at clinic for retacrit injection. PT injection given per protocol with no issues. PT vitals documented and in range. PT had no further questions or concerns at this time. documented in this encounter Plan of Treatment Upcoming Encounters Date Type Department Care Team (Late st Contact Info) Description 11/29/2023 Plan of Care Documentation Home Dialysis [address], [place] [address] 12/26/2023 1:00 PM EDT Office Visit Home Dialysis [place] [address] [facility] [address] [place] [address] 01/10/2024 8:00 AM EDT Treatment Home Dialysis [place] [address] Nurse, [employer] [place] [address] 02/08/2024 1:00 PM EDT Office Visit Home Dialysis [place] [address] [address] [facility] [place] [address] [place] [address] 02/10/2024 8:00 AM EDT Treatment Home Dialysis [facility] [place] [address] Nurse, [employer] [place], [place] [address] 03/05/2024 1:00 PM EDT Office Visit Home Dialysis [facility] [place] [address] [address] [facility] [place] [address] [place] [address] 03/11/2024 8:00 AM EDT Treatment Home Dialysis [place] [address] Nurse, [employer] [facility] [address] [place], [place] [address] 03/19/2024 1:00 PM EDT Office Visit Home Dialysis [facility] [place], [place] [address] [facility], Peritoneal Dialysis [address] [facility] [place] [address] 04/11/2024 8:00 AM EDT Treatment Home Dialysis [facility] [place], [place] [phone] Nurse, [employer] [facility] [address] [place], [place] [address] 04/29/2024 1:00 PM EDT Office Visit Home Dialysis [facility] [address] [place], [place] [address] [facility] [place] [address] [facility], [place] [address] 05/12/2024 8:00 AM EDT Treatment Home Dialysis [facility] [place], [place] [address] Nurse, [employer] [facility]al [address] [place] [address] 06/07/2024 1:00 PM EDT Office Visit Home Dialysis [facility] [address] [place], [place] [address] [facility] [address] [facility] [place] [address] 06/11/2024 8:00 AM EDT Treatment Home Dialysis [facility] [address] [place], [place] [address] Nurse, [employer] [facility] [address] [place] [address] 06/25/2024 1:00 PM EDT Office Visit Home Dialysis [facility] [address] [place], [place] [address] [facility] [place] [address] [facility] [place], [place] [address] 07/12/2024 8:00 AM EDT Treatment Home Dialysis [facility] [place], [place] [address] Nurse, [employer] [facility] [address] [place] [address] 07/22/2024 1:00 PM EST Office Visit Home Dialysis [facility] [address] [place] [address] [address] [facility] [place] [address] [facility] [place], [place] [address] 08/11/2024 8:00 AM EST Treatment Home Dialysis [facility] [address] [place], [place] [address] Nurse, [employer] [facility] [address] [place], [place] [address] 08/20/2024 1:00 PM EST Office Visit Home Dialysis [facility] [address] [place] [address] [address] [facility] [place] [address] [facility] [place] [address] Health Maintenance Due Date Last Done Comments [...] dialysis (HCC)- Primary End stage renal disease 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 chronic kidney disease, not on chronic dialysis (HCC) documented in this encounter Administered Medications Inactive Administered Medications - up to 3 most recent administrations Medication Order MAR Action Action Date Dose Rate Site epoetin melita-epbx ESRD (Retacrit) 89446 UNIT/ML inj 13,000 Units 13,000 Units, Subcutaneous, ONCE, On Mon12/22/23 at 1515, For 1 dose Given 12/22/2023 2:43 PM EDT 13,000 Units Arm Right Upper documented in this encounter Advance [...] Advance Directives occurred with: Patient Care Teams Telecommunications Administrator Relationship Specialty Start Date End Date Tomer Garner MD [address] [place] [address] PCP - General 09/19/02 documented as of this encounter
--- OUTSIDE RECORDS SUMMARY | 2024-03-17 14:21 | External Medical Summary | Summary of Care ---
Author Name Unknown Organization [facility] Address [address] [place] [address] Phone [phone] Care Team Providers Care Home Aide Name Role Phone Tomer Garner MD Primary Care Provider [phone] Reason for Visit * Reason Onset Date Comments Medication Refill 12/20/2023 Encounter Details Date Type Department Care Team (Late st Contact Info) Description [facility] [address] [place] [address] Akosua Lopez MD [address] [place] [address] ESRD on peritoneal dialysis (HCC)* Allergies No known active allergiesdocumented as of this encounter (statuses as of 12/20/2023) Medications Medication Sig Dispensed Refills Start Date [...] morning. 90 Tablet 3 11/29/2023 Active Retacrit 13668 UNIT/ML Injection Solution (Epoetin melita-epbx ESRD) Inject 0.65 mL under the skin once a week. 3 mL 0 12/04/2023 01/17/2024 Active Syringe 21G X 1" 3 ML Retacrit 13.000 U weekly. 12 Each 6 12/04/2023 Active BD Insulin Syringe 25G X 5/8" 1 ML (Insulin Syringe-Needle U-100)Indications: ESRD on peritoneal dialysis (HCC) Use to inject 13,000 units of Retacrit weekly 12 Each 6 12/20/2023 Active documented as of this encounter (statuses as of 12/20/2023) Active Problems Problem Noted Date Diagnosed Date [...] as of this encounter (statuses as of 12/20/2023) Resolved Problems Problem Noted Date Diagnosed Date [...] as of this encounter (statuses as of 12/20/2023) Immunizations Name Administration Dates Next Due COVID-19 mRNA, LNP-s, No Pre serve, 2-Dose Series (Moderna) 11/23/2020,10/18/2020 DTP Vaccine 1981,1981,1981 HEP B - Hepatitis B (Dialysis/Immumocomp Pt) 05/02/2023,04/04/2023 MMR - Measles/Mumps/Rubella Vaccine 05/11/1982 OPV - Polio Virus Vaccine (Oral) 1981,04/11 Pneumococcal Conjugate Vacci ne, 20-valent ([id number]) 11/17/2022 Seasonal Influenza, PF, 6 M & [...] encounter Miscellaneous Notes * Telephone Encounter - Phong Clemens MD - 12/20/2023 4:47 PM EDTSigned Prescriptions: Disp Refills BD Insulin Syringe 25G X 5/8" 1 ML (Insuli*12 Each6 Sig: Use to inject 13,000 units of Retacrit weekly Authorizing Provider: PHONG CLEMENS * Telephone Encounter - Alyssa Diaz [facility] - 12/20/2023 11:06 AM EDT Good morning, [facility] received a prescription for 21G x 1 inch 3ml syringes for Chandan to inject Retacrit 0.65 ml, however this syringe does not have accurate enough dosing for 0.05 dose. Requesting a change to the syringe pended below to allow the 0.65 ml to be drawn. Please review, and approve, if appropriate. Thanks for your time! Alyssa Diaz, Pharm.D. Specialty Medication Pharmacist [facility] 12/20/2023, 11:07 AM documented in this encounter Plan of Treatment Upcoming Encounters Date Type Department Care Team (Late st Contact Info) Description 11/29/2023 Plan of Care Documentation Home Dialysis [address], [place] [address] 12/26/2023 1:00 PM EDT Office Visit Home Dialysis [address], [place], [place] [phone] [facility] Per[place] Dialysis [address] [place] [address] 01/10/2024 8:00 AM EDT Treatment Home Dialysis [facility] [address] [place], [place] [address] Nurse, [employer] [facility] [address] [place] [address] 02/08/2024 1:00 PM EDT Office Visit Home Dialysis [facility] [address] [place] [address] [facility] Peritoneal Dialysis [address] [place] [address] 02/10/2024 8:00 AM EDT Treatment Home Dialysis Ham[facility] [address] [place] [address] Nurse, [place] [address] 03/05/2024 1:00 PM EDT Office Visit Home Dialysis [facility] [place] [address] [address] [facility] Peritoneal Dialysis [address] [place] [address] 03/11/2024 8:00 AM EDT Treatment Home Dialysis [facility] [place], [place] [address] Nurse, Lance [employer] [facility] [place], [place] [address] 03/19/2024 1:00 PM EDT Office Visit Home Dialysis [facility] [address] [place] [address] [facility] Peritoneal Dialysis [address] [place] [address] 04/11/2024 8:00 AM EDT Treatment Home Dialysis [facility] [address] [place], [place] [phone] Nurse, [facility] [facility] [address] [place], [place] [address] 04/29/2024 1:00 PM EDT Office Visit Home Dialysis [facility] [place], [place] [address] [facility] Dialysis [address] [facility] [place] [address] 05/12/2024 8:00 AM EDT Treatment Home Dialysis [facility] [place], [place] [phone] Nurse, [employer] [facility] [address] [place], [place] [address] 06/07/2024 1:00 PM EDT Office Visit Home Dialysis [facility] [place], [place] [address] [facility] Dialysis [address] [facility] [place] [address] 06/11/2024 8:00 AM EDT Treatment Home Dialysis [facility] [address] [place], [place] [phone] Nurse, [employer] [facility] [address] [place], [place] [address] 06/25/2024 1:00 PM EDT Office Visit Home Dialysis [facility] [address] [id number] [facility]ialysis [address] [facility] [place] [address] 07/12/2024 8:00 AM EDT Treatment Home Dialysis [facility] [address] [phone] Nurse, [facility] [facility] [address] [id number] 07/22/2024 1:00 PM EST Office Visit Home Dialysis [facility] [address] [phone] [facility] Peritoneal Dialysis [address] [facility] [place], [place] [address] 08/11/2024 8:00 AM EST Treatment Home Dialysis [facility] [address] [phone] Nurse, [employer] [facility] [address] [phone] 08/20/2024 1:00 PM EST Office Visit Home Dialysis [facility] [id number] [facility] Peritoneal Dialysis [address] [facility] [address] [place], [place] [phone] Health Maintenance Due Date Last Done Comments [...] Advance Directives occurred with: Patient Care Teams Home Aide Relationship Specialty Start Date End Date Tomer Garner MD [address] [facility] [place] [address] PCP - General 09/19/02 documented as of this encounter
--- OUTSIDE RECORDS SUMMARY | 2024-03-17 14:22 | External Medical Summary | Summary of Care ---
Author Name Unknown Organization [facility] Address [address] [place] [address] Phone [phone] Care Team Providers Care Street Light Wirer Name Role Phone Tomer Garner MD Primary Care Provider Encounter Details Date Type Department Care Team (Late st Contact Info) Description 12/04/2023 1:00 PM EDT Office Visit Home Dialysis Lance [address] [facility] [address] [place] [address] [facility], Peritoneal Dialysis [address] [place], [place] [phone] Anemia of renal disease* Allergies No known active allergiesdocumented as of this encounter (statuses as of 12/05/2023) Medications Medication Sig Dispensed Refills Start Date [...] morning. 90 Tablet 3 11/29/2023 Active Retacrit 40896 UNIT/ML Injection Solution (Epoetin melita-epbx ESRD) Inject 0.65 mL under the skin once a week. 3 mL 0 12/04/2023 01/04/2024 Active Syringe 21G X 1" 3 ML Retacrit 13.000 U weekly. 12 Each 6 12/04/2023 Active Hospital, Clinic, or Other Facility Administered Medication Ordered Dose Route Frequency Start Date End Date Status Epoetin Melita-epbx (Retacrit) 74101 UNIT/ML inj 13,000 UnitsIndications:Anemia of renal disease 34313 Units SC ONCE 12/04/2023 12/04/2023 Ended documented as of this encounter (statuses as of 12/05/2023) Active Problems Problem Noted Date Diagnosed Date [...] as of this encounter (statuses as of 12/05/2023) Resolved Problems Problem Noted Date Diagnosed Date [...] as of this encounter (statuses as of 12/05/2023) Immunizations Name Administration Dates Next Due COVID-19 mRNA, LNP-s, No Pre serve, 2-Dose Series (Moderna) 11/23/2020,10/18/2020 DTP Vaccine 1981,1981,1981 HEP B - Hepatitis B (Dialysis/Immumocomp Pt) 05/02/2023,04/04/2023 MMR - Measles/Mumps/Rubella Vaccine 05/11/1982 OPV - Polio Virus Vaccine (Oral) 1981,04/11 Pneumococcal Conjugate Vacci ne, 20-valent ([id number]) 11/17/2022 Seasonal Influenza, PF, 6 M & [...] of this encounter Progress Notes * Sophia Hernandze RN - 12/04/2023 2:08 PM EDT Peritoneal [...] Adjusted [place]: [place] [address] units weekly dose given today Pain w/exchanges [...] and 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 Orozco to be [...] Home Dialysis [address], [place], [place] [phone] 12/11/2023 8:00 AM EDT Treatment Home Dialysis [facility] [address] [place] [address] Nurse, [place] [address] 12/26/2023 1:00 PM EDT Office Visit Home Dialysis [address], [place] [address] [facility], Peritoneal Dialysis [address] [place], [place] [address] 01/10/2024 8:00 AM EDT Treatment Home Dialysis [facility] [address] [place], [place] [address] Nurse, Lance Jessica Bee [address] [place], [place] [address] 02/08/2024 1:00 PM EDT Office Visit Home Dialysis [facility] [address] [place], [place] [address] [facility], Peritoneal Dialysis [address] [place] [address] 02/10/2024 8:00 AM EDT Treatment Home Dialysis [address], [place] [address] Nurse, Lancebaltazar Bee [address] [place] [address] 03/05/2024 1:00 PM EDT Office Visit Home Dialysis [facility] [address] [place] [address] [address] [facility] [place] [place] Dialysis [address] [place], [place] [address] 03/11/2024 8:00 AM EDT Treatment Home Dialysis [facility] [address] [place], [place] [address] Nurse, [employer] [facility] [address] [place], [place] [address] 03/19/2024 1:00 PM EDT Office Visit Home Dialysis [facility] [address] [place], [place] [address] [facility] Peritoneal Dialysis [address] [place] [address] 04/11/2024 8:00 AM EDT Treatment Home Dialysis [facility] [place], [place] [address] Nurse, [employer] [facility] [address] [place], [place] [address] 04/29/2024 1:00 PM EDT Office Visit Home Dialysis [facility] [place], [place] [address] [facility] [place] [place]ialysis [address] [place] [address] 05/12/2024 8:00 AM EDT Treatment Home Dialysis [facility] [place], [place] [address] Nurse, [employer] [facility] [address] [place], [place] [address] 06/07/2024 1:00 PM EDT Office Visit Home Dialysis [facility] [address] [place], [place] [address] [facility] [place] [place]ialysis [address] [place] [place] [address] 06/11/2024 8:00 AM EDT Treatment Home Dialysis [facility] [address] [place], [place] [address] Nurse, [employer] [facility] [address] [place] [address] 06/25/2024 1:00 PM EDT Office Visit Home Dialysis [facility] [address] [place], [place] [phone] [facility] [place] Peritoneal Dialysis [address] [facility], [place] [address] 07/12/2024 8:00 AM EDT Treatment Home Dialysis [facility] [address] [place], [place] [phone] Nurse, [employer] [facility] [address] [place], [place] [address] 07/22/2024 1:00 PM EST Office Visit Home Dialysis [facility] [address] [phone] [facility] [place] Peritoneal Dialysis [address] [facility] [place] [address] 08/11/2024 8:00 AM EST Treatment Home Dialysis [facility] [place], [place] [phone] Nurse, [employer] [facility] [address] [place], [place] [address] 08/20/2024 1:00 PM EST Office Visit Home Dialysis [facility] [address] [place], [place] [phone] [facility] [place] Peritoneal Dialysis [address] [facility] [place], [place] [id number] Health Maintenance Due Date Last Done Comments COVID-19 Vaccine (3 - Moderna risk series) 12/21/2020 11/23/2020, 10/18/2020 Hepatitis B (3 of 4 - Risk Dialysis Recombivax 3-dose series) 10/05/2023 05/02/2023, 04/04/2023 Depression Screening 11/06/2024 11/06/2023 Lipid Panel 05/18/2026 05/18/2021, 12/0 09/2009, 11/11/2004, [...] Date Dose Rate Site Epoetin Melita-epbx (Retacrit) 60871 UNIT/ML inj 13,000 Units 13,000 Units, Subcutaneous, [...] Directives occurred with: Patient Care Teams Street Light Wirer Relationship Specialty Start Date End Date Tomer Garner MD [address] [place] [address] PCP - General 09/19/02 documented as of this encounter
--- OUTSIDE RECORDS SUMMARY | 2024-03-17 14:22 | External Medical Summary | Summary of Care ---
Author Name Unknown Organization [facility] Address [address] [place] [address] Phone [phone] Care Team Providers Care Underground Utility Locator Name Role Phone Tomer Garner MD Primary Care Provider + [phone] Reason for Visit * Reason Comments Outpatient Testing Encounter Details Date Type Department Care Team ([facility] st Contact Info) Description 11/14/2023 3:30 PM EST Laboratory Laboratory, [place] [address] [place] [id number] [facility] [address] [place] [address] Pre-transplant evaluation for ESRD (end stage renal disease); 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 chronic kidney disease, not on chronic dialysis (HCC); ESRD on peritoneal dialysis (HCC); ESRD (end stage renal disease) on dialysis (HCC) Allergies No known active allergiesdocumented as of this encounter (statuses as of 12/18/2023) Medications Medication Sig Dispensed Refills Start Date End Date Status Lovastatin 10 MG Oral TabletIndications :Kidney replaced by transplant Take 1 Tablet by mouth in the morning. 90 Tablet 3 09/28/2022 Active cycloSPORINE Modified 25 MG Oral CapsuleIndication [...] Pain, Severe. 12 Capsule 0 08/21/2023 Active Gentamicin Sulfate 0.1 % External CreamIndications: ESRD on peritoneal dialysis (HCC) Apply topically to affected area daily. Apply to PD exit catheter site daily after showering and cover with bandage 15 g 2 09/08/2023 Active Dialyvite Oral Tablet Take 1 Tablet by mouth in the morning. 30 Tablet 11 09/28/2023 Active Cinacalcet HCl 30 MG Oral Tablet (Sensipar) Take 1 Tablet by mouth in the morning. 90 Tablet 3 05/09/2023 Discontinue d(Refill) documented as of this encounter [...] (Oral) 1981,04/11 Pneumococcal Conjugate Vacci ne, 20-valent ([id number]) 11/17/2022 Seasonal Influenza, PF, 6 M & [...] [address] [id number] 12/26/2023 1:00 PM EDT Office Visit Home Dialysis Hamzah Lucas [address] [phone] [facility] [place], Peritoneal Dialysis [address] [place], [place] [id number] 01/10/2024 8:00 AM EDT Treatment Home Dialysis Hamzah [address] [place] [address] Nurse, [employer] [place] [place] [address] 02/08/2024 1:00 PM EDT Office Visit Home Dialysis Hamzah Lucas [address] [place] [address] [facility], Peritoneal Dialysis [address] [place] [address] 02/10/2024 8:00 AM EDT Treatment Home Dialysis Hamzah Lucas [address] [place] [address] Nurse, [employer] [place] [address] [place] [address] 03/05/2024 1:00 PM EDT Office Visit Home Dialysis Hamzah Lucas [address] [place] [address] [facility] [place], Peritoneal Dialysis [address] [place] [address] 03/11/2024 8:00 AM EDT Treatment Home Dialysis Hamzah Lucas [address] [place], [place] [address] Nurse, [employer] [address] [place], [place] [address] 03/19/2024 1:00 PM EDT Office Visit Home Dialysis Hamzha [address] [place], [place] [address] [facility], Peritoneal Dialysis [address] [facility] [place] [address] 04/11/2024 8:00 AM EDT Treatment Home Dialysis Hamzah [address] [place], [place] [address] Nurse, [employer] [address] [place], [place] [address] 04/29/2024 1:00 PM EDT Office Visit Home Dialysis Hamzah [address] [place], [place] [address] [facility], Peritoneal Dialysis [address] [facility] [place] [address] 05/12/2024 8:00 AM EDT Treatment Home Dialysis Hamzah [address] [place], [place] [phone] Nurse, [employer] [address] [place], [place] [address] 06/07/2024 1:00 PM EDT Office Visit Home Dialysis Hamzah [address] [place], [place] [address] [facility], Peritoneal Dialysis [address] [facility] [place] [address] 06/11/2024 8:00 AM EDT Treatment Home Dialysis Hamzah Lucas Dr [address] [phone] Nurse, [employer] [address], [place] [address] 06/25/2024 1:00 PM EDT Office Visit Home Dialysis Hamzah [address] [place], [place] [phone] [facility] [place], Peritoneal Dialysis [address] [place], [place] [id number] 07/12/2024 8:00 AM EDT Treatment Home Dialysis Hamzah Lucas [address] [place], [place] [phone] Nurse, Lance [employer] [place], [place] [phone] 07/22/2024 1:00 PM EST Office Visit Home Dialysis Hamzah [address] [place], [place] [phone] [facility] [place], Peritoneal Dialysis [address] [facility] [place], [place] [address] 08/11/2024 8:00 AM EST Treatment Home Dialysis Hamzah Lucas [address] [place], [place] [phone] Nurse, [employer] [place], [place] [phone] 08/20/2024 1:00 PM EST Office Visit Home Dialysis Hamzah [address] [place], [place] [phone] [facility], Peritoneal Dialysis [address] [facility] [place], [place] [address] Pending Results Name Type Priority Associated Diagnoses Date /Time MONTHLY HLA CLASS 1 & 2 W/REFLEX, SOLID ORGAN TRANSPLANT Lab STAT Pre-transplant evaluation for ESRD (end stage renal disease) 11/14/2023 3:46 PM EST Health Maintenance Due Date Last Done Comments [...] Procedure Name Priority Date/Time Associated Diagnosis Comments ADJUSTED CALCIUM PHOSPHORUS PRODUCT STAT 11/14/2023 3:48 PM EST 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 chronic kidney disease, not on chronic dialysis (HCC) ESRD on peritoneal dialysis (HCC) RENAL FUNCTION PANEL Routine 11/14/2023 3:48 PM EST ESRD (end stage renal disease) on dialysis (HCC) IRON SCREEN, INCLUDING TIBC STAT 11/14/2023 3:48 PM EST 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 chronic kidney disease, not on chronic dialysis (HCC) ESRD on peritoneal dialysis (HCC) HGB STAT 11/14/2023 3:48 PM EST 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 chronic kidney disease, not on chronic dialysis (HCC) ESRD on peritoneal dialysis (HCC) BUN STAT 11/14/2023 3:48 PM EST 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 chronic kidney disease, not on chronic dialysis (HCC) ESRD on peritoneal dialysis (HCC) ALT STAT 11/14/2023 3:48 PM EST 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 chronic kidney disease, not on chronic dialysis (HCC) ESRD on peritoneal dialysis (HCC) POTASSIUM STAT 11/14/2023 3:48 PM EST 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 chronic kidney disease, not on chronic dialysis (HCC) ESRD on peritoneal dialysis (HCC) PTH STAT 11/14/2023 3:48 PM EST 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 chronic kidney disease, not on chronic dialysis (HCC) ESRD on peritoneal dialysis (HCC) CREATININE Routine 11/14/2023 3:48 PM EST 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 chronic kidney disease, not on chronic dialysis (HCC) ESRD on peritoneal dialysis (HCC) CO2 STAT 11/14/2023 3:48 PM EST 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 chronic kidney disease, not on chronic dialysis (HCC) ESRD on peritoneal dialysis (HCC) documented in this encounter Results * (ABNORMAL) RENAL FUNCTION PANEL (11/14/2023 3:48 PM EST) BUN 55(H) 6 - 20 mg/dL 11/15/2023 3:48 AM EST [facility] Creatinine 21.7(H) 0.6 - 1.2 mg/dL 11/15/2023 3:48 AM EST [facility] Estimated Glomerular Filtration Rate 2(L) >=60 mL/min 11/15/2023 3:48 AM EST [facility] Comment:eGFR is calculated b ased on the CKD-EPI 2020 equation Sodium 140 135 - 146 mmol/L 11/15/2023 3:48 AM EST [facility] Potassium 4.1 3.5 - 5.1 mmol/L 11/15/2023 3:48 AM EST [facility] Chloride 95(L) 98 - 107 mmol/L 11/15/2023 3:48 AM EST [facility] CO2 19(L) 22 - 32 mmol/L 11/15/2023 3:48 AM EST [facility] Anion Gap 26(H) 7 - 15 mmol/L 11/15/2023 3:48 AM EST [facility] Glucose 84 70 - 120 mg/dL 11/15/2023 3:48 AM EST [facility] Calcium 8.5 8.4 - 10.2 mg/dL 11/15/2023 3:48 AM EST [facility] Albumin 4.1 3.8 - 5.0 g/dL 11/15/2023 3:48 AM EST [facility] Phosphorus 13.6(H) 2.5 - 4.8 mg/dL 11/15/2023 3:48 AM EST [facility] Blood Venous blood specimen / Unknown Venipuncture / Unknown 11/14/2023 3:48 PM EST 11/14/2023 3:48 PM EST Akosua Lopez MD LAB BLOOD ORDER YAO Performing Organization Address City/[facility]/ZIP Co de Phone Number LABORATORY C [address] [place] [address] * (ABNORMAL) PTH (11/14/2023 3:48 PM EST) PTH 457(H) 15 - 65 pg/mL 11/15/2023 4:37 AM EST [facility] Blood Venous blood specimen / Unknown Venipuncture / Unknown 11/14/2023 3:48 PM EST 11/14/2023 3:48 PM EST Akosua Lopez MD LAB BLOOD ORDER YAO LAB[facility]AT[facility] [address] [place] [address] * (ABNORMAL) CO2 (11/14/2023 3:48 PM EST) CO2 19(L) 22 - 32 mmol/L 11/15/2023 3:48 AM EST [facility] Blood Venous blood specimen / Unknown Venipuncture / Unknown 11/14/2023 3:48 PM EST 11/14/2023 3:48 PM EST Akosua Lopez MD LAB BLOOD ORDER YAO Performing Organization Address [facility] Co de Phone Number LAB[facility]ATORY [facility] [address] [place] [address] * (ABNORMAL) CREATININE (11/14/2023 3:48 PM EST) Creatinine 21.7(H) 0.6 - 1.2 mg/dL 11/15/2023 3:48 AM EST [facility] Estimated Glomerular Filtration Rate 2(L) >=60 mL/min 11/15/2023 3:48 AM EST [facility] Comment: eGFR is calculated based on the CKD-EPI 2020 equation eGFR is calculated based on the CKD-EPI 2020 equation Blood Venous blood specimen / Unknown Venipuncture / Unknown 11/14/2023 3:48 PM EST 11/14/2023 3:48 PM EST Akosua Lopez MD LAB BLOOD ORDER YAO Performing Organization Address [facility] de Phone Number LABORATORY [facility] [address] [place] [address] * (ABNORMAL) ADJUSTED CALCIUM PHOSPHORUS PRODUCT (11/14/2023 3:48 PM EST) Albumin 4.1 3.8 - 5.0 g/dL 11/15/2023 3:48 AM EST [facility] Calcium 8.5 8.4 - 10.2 mg/dL 11/15/2023 3:48 AM EST [facility] Phosphorus 13.6(H) 2.5 - 4.8 mg/dL 11/15/2023 3:48 AM EST [facility] Adjusted Calcium 8.5 mg/dL 11/15/2023 3:48 AM EST [facility] Calcium Phosphorus Product 115.6 11/15/2023 3:48 AM EST [facility] Blood Venous blood specimen / Unknown Venipuncture / Unknown 11/14/2023 3:48 PM EST 11/14/2023 3:48 PM EST Akosua Lopez MD LAB BLOOD ORDER YAO Performing Organization Address [facility]/ZIP Co de Phone Number [facility] [address] [place] [address] * (ABNORMAL) IRON SCREEN, INCLUDING TIBC (11/14/2023 3:48 PM EST) Iron 154 45 - 176 ug/dL 11/15/2023 3:48 AM EST [facility] Iron Binding Capacity 214(L) 250 - 425 ug/dL 11/15/2023 3:48 AM EST [facility] Transferrin Saturation Percent 72(H) 15 - 55 % 11/15/2023 3:48 AM EST [facility] Blood Venous blood specimen / Unknown Venipuncture / Unknown 11/14/2023 3:48 PM EST 11/14/2023 3:48 PM EST Akosua Lopez MD LAB BLOOD ORDER YAO Performing Organization Address [facility] Co de Phone Number [facility] [address] [place] [address] * (ABNORMAL) HGB (11/14/2023 3:48 PM EST) HGB 8.7(L) 14.0 - 16.8 g/dL 11/14/2023 11:28 PM EST [facility] Blood Venous blood specimen / Unknown Venipuncture / Unknown 11/14/2023 3:48 PM EST 11/14/2023 3:48 PM EST Akosua Lopez MD LAB BLOOD ORDER YAO Performing Organization Address [facility]/ZIP Co de Phone Number [facility] [address] [place] [address] * POTASSIUM (11/14/2023 3:48 PM EST) Potassium 4.1 3.5 - 5.1 mmol/L 11/15/2023 3:48 AM EST [facility] Blood Venous blood specimen / Unknown Venipuncture / Unknown 11/14/2023 3:48 PM EST 11/14/2023 3:48 PM EST Akosua Lopez MD LAB BLOOD ORDER YAO Performing Organization Address City/[facility]/ZIP Co de Phone Number [facility]ATORY [facility] [address] [place] [address] * (ABNORMAL) BUN (11/14/2023 3:48 PM EST) BUN 55(H) 6 - 20 mg/dL 11/15/2023 3:48 AM EST [facility] Blood Venous blood specimen / Unknown Venipuncture / Unknown 11/14/2023 3:48 PM EST 11/14/2023 3:48 PM EST Akosua Lopez MD LAB BLOOD ORDER YAO Performing Organization Address [facility] Co de Phone Number LAB[facility]ATORY [facility] [address] [place] [address] * ALT (11/14/2023 3:48 PM EST) ALT 32 10 - 50 U/L 11/15/2023 3:48 AM EST LABORATORY C Blood Venous blood specimen / Unknown Venipuncture / Unknown 11/14/2023 3:48 PM EST 11/14/2023 3:48 PM EST Akosua Lopez MD LAB BLOOD ORDER YAO Performing Organization Address [facility] de Phone Number LABORATORY [facility] [address] [place] [address] documented in this encounter Visit Diagnoses Diagnosis Pre-transplant evaluation for ESRD (end stage renal disease) Other specified pre-operative examination 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 chronic kidney disease, not on chronic dialysis (HCC) ESRD on peritoneal dialysis (HCC) End stage renal disease ESRD (end stage renal disease) on dialysis (HCC) End stage renal disease documented [...] Advance Directives occurred with: Patient Care Teams Underground Utility Locator Relationship Specialty Start Date End Date Tomer Garner MD [address] [place] [address] PCP - General 09/19/02 documented as of this encounter
--- OUTSIDE RECORDS SUMMARY | 2024-03-17 14:22 | External Medical Summary ---
Author Name Unknown Address Unknown Organization [id number]:[facility] [place] [address] [facility] [address] Laboratory Report Ordering Provider Test Date Status MARI BOB 12/18/2023 14:37:42 Final Observation Date Value Abnormality Reference (Units ) Status WBC, Total 12/18/2023 14:37:42 7.53 4.00-10.80 (K/uL) Final RBC 12/18/2023 14:37:42 2.67 4.50-5.25 (M/uL) Final Hemoglobin 12/18/2023 14:37:42 8.4 Below low normal 14.0-16.8 (g/dL) Final HCT 12/18/2023 14:37:42 24.0 Below low normal 40.0-48.4 (%) Final MCV 12/18/2023 14:37:42 89.9 82.0-99.5 (fL) Final MCH 12/18/2023 14:37:42 31.5 27.0-34.0 (pg) Final MCHC 12/18/2023 14:37:42 35.0 32.0-36.0 (g/dL) Final RDW 12/18/2023 14:37:42 14.9 11.5-15.5 (%) Final Platelets 12/18/2023 14:37:42 219 140-400 (K/uL) Final MPV 12/18/2023 14:37:42 9.7 6.6-11.1 (fL) Final Nucleated erythrocytes/100 leukocytes [Ratio] in Blood by Automated count 12/18/2023 14:37:42 0 <=0 (/100 WBCs) Final Performing Location [facility] [place] [address] [place] [address]
--- OUTSIDE RECORDS SUMMARY | 2024-03-17 14:22 | External Medical Summary ---
Author Name Unknown Address Unknown Organization [id number]:[facility] - [address] [place] [address] Laboratory Report Ordering Provider Test Date Status MARI BOB 12/18/2023 14:37:42 Final Observation Date Value Abnormality Reference (Units ) Status Hep B surface Ag 12/18/2023 14:37:42 Negative Neg ative Final Performing Location [facility] - [address] [place] [address]
--- OUTSIDE RECORDS SUMMARY | 2024-03-17 14:22 | External Medical Summary ---
Author Name Unknown Address Unknown Organization [id number]:[facility] [place] [facility] [address] [place] [address] Laboratory Report Ordering Provider Test Date Status MAGI BOBDEZ 12/18/2023 14:37:42 Final Observation Date Value Abnormality Reference (Units ) Status Creatinine 12/18/2023 14:37:42 18.7 Above high normal 0.6-1.2 (mg/dL) Final Glomerular filtration rate/1.73 sq M.predicted [Volume Rate/Area] in Serum, Plasma or Blood by Creatinine-based formula (CKD-EPI) 12/18/2023 14:37:42 3 Below low normal >=60 (mL/min) Final eGFR is calculated based on the CKD-EPI 2020 equation Performing Location [facility] [place] [facility] [address] [place] [address]
--- OUTSIDE RECORDS SUMMARY | 2024-03-17 14:22 | External Medical Summary ---
Author Name Unknown Address Unknown Organization [id number]:LAB[facility]ATORY [facility] [place] [address] [place] [address] Laboratory Report Ordering Provider Test Date Status MARI BOB 12/18/2023 14:37:42 Final Observation Date Value Abnormality Reference (Units ) Status Hep C Ab 12/18/2023 14:37:42 Negative Negative Final Performing Location LABORATORY C - [address] [place] [address]
--- OUTSIDE RECORDS SUMMARY | 2024-03-17 14:22 | External Medical Summary ---
Author Name Unknown Address Unknown Organization : Laboratory Report Ordering Provider Test Date Status ANGELA DIAS 12/18/2023 14:37:42 Final Observation Date Value Abnormality Reference (Units ) Status REFERENCE LAB SCANNED REPORT 12/18/2023 14:37:42 See Scanned Report Final Performing Location
--- OUTSIDE RECORDS SUMMARY | 2024-03-17 14:22 | External Medical Summary ---
Author Name Unknown Address Unknown Organization [id number]:LABORATORY [facility] [place] - [address] [place] [address] Laboratory Report Ordering Provider Test Date Status MARI BOB 12/18/2023 14:37:42 Final Study includes results for T ransferrin Saturation, Binding Capacity, and Iron. Observation Date Value Abnormality Reference (Units ) Status Iron 12/18/2023 14:37:42 114 45-176 (ug /dL) Final Iron-binding capacity 12/18/2023 14:37:42 274 250-425 (ug/dL) Final Transferrin Sat % 12/18/2023 14:37:42 42 15 -55 (%) Final Performing Location LABORATORY C - [address] [place] [address]
--- OUTSIDE RECORDS SUMMARY | 2024-03-17 14:22 | External Medical Summary | Summary of Care ---
Author Name Unknown Organization [facility] Address [address] [place] [address] Phone [phone] Care Team Providers Care [facility] Name Role Phone Tomer Garner MD Primary Care Provider Encounter Details Date Type Department Care Team (Late st Contact Info) Description 12/04/2023 1:00 PM EDT Office Visit Home Dialysis [address] [place] [address] [place] [address] [facility], Peritoneal Dialysis [address], [place] [phone] Anemia of renal disease* Allergies No known [...] morning. 90 Tablet 3 11/29/2023 Active Retacrit 64714 UNIT/ML Injection Solution (Epoetin melita-epbx ESRD) Inject 0.65 mL under the skin once a week. 3 mL 0 12/04/2023 01/04/2024 Active Syringe 21G X 1" 3 ML Retacrit 13.000 U weekly. 12 Each 6 12/04/2023 Active Hospital, Clinic, or Other Facility Administered Medication Ordered Dose Route Frequency Start Date End Date Status Epoetin Melita-epbx (Retacrit) 87009 UNIT/ML inj 13,000 UnitsIndications:Anemia of renal disease 84235 Units SC ONCE 12/04/2023 12/04/2023 Ended documented [...] (Oral) 1980,04/11 Pneumococcal Conjugate Vacci ne, 20-valent ([id number]) 11/17/2022 Seasonal Influenza, PF, 6 M & [...] Adjusted Procrit: [place] [address] units weekly dose given today Pain w/exchanges [...] and the on-call nurse via the hospital aging room operator: yes Questions Pt to move to [facility] on 12/25/23 for summer. Orozco to [...] Home Dialysis [address], [place], [place] [phone] 12/11/2023 8:00 AM EDT Treatment Home Dialysis Hamzah [address] [place] [address] Nurse, [place] [address] 12/26/2023 1:00 PM EDT Office Visit Home Dialysis [address], [place] [address] Mdc, Peritoneal Dialysis [address] [place], [place] [address] 01/10/2024 8:00 AM EDT Treatment Home Dialysis Hamzah [address] [place], [place] [address] Nurse, Lance Jessica Bee [address] [place], [place] [address] 02/08/2024 1:00 PM EDT Office Visit Home Dialysis Ham[address] [place], [place] [address] [facility], Peritoneal Dialysis [address] [place] [address] 02/10/2024 8:00 AM EDT Treatment Home Dialysis [address], [place] [address] Nurse, [employer]zar Bee [address] [place] [address] 03/05/2024 1:00 PM EDT Office Visit Home Dialysis Hamzah [address] [place] [address] [facility], Peritoneal Dialysis [address] [place], [place] [address] 03/11/2024 8:00 AM EDT Treatment Home Dialysis Hamzah [address] [place], [place] [address] Nurse, [employer] [address] [place], [place] [address] 03/19/2024 1:00 PM EDT Office Visit Home Dialysis Ham[address]ah [address] [place], [place] [address] [facility], Peritoneal Dialysis [address] [place] [address] 04/11/2024 8:00 AM EDT Treatment Home Dialysis Hamzah [address] [place], [place] [address] Nurse, [employer] [address] [place], [place] [address] 04/29/2024 1:00 PM EDT Office Visit Home Dialysis Hamzah [address] [place], [place] [address] [facility], Peritoneal Dialysis [address] [place] [address] 05/12/2024 8:00 AM EDT Treatment Home Dialysis Hamzah [address] [place], [place] [address] Nurse, [employer] [address] [place], [place] [address] 06/07/2024 1:00 PM EDT Office Visit Home Dialysis Hamzah [address] [place], [place] [address] [facility], Peritoneal Dialysis [address] [place] [address] 06/11/2024 8:00 AM EDT Treatment Home Dialysis Hamzah [address] [place], [place] [address] Nurse, [employer] [address] [place] [address] 06/25/2024 1:00 PM EDT Office Visit Home Dialysis Hamzah [address] [place], [place] [phone] [facility], Peritoneal Dialysis [address] [facility], [place] [address] 07/12/2024 8:00 AM EDT Treatment Home Dialysis Hamzah [address] [place], [place] [phone] Nurse, [employer] [address] [place], [place] [address] 07/22/2024 1:00 PM EST Office Visit Home Dialysis Hamzah [address] [phone] [facility], Peritoneal Dialysis [address] [facility] [place] [address] 08/11/2024 8:00 AM EST Treatment Home Dialysis [address] [place], [place] [phone] Nurse, [employer] [address] [place], [place] [address] 08/20/2024 1:00 PM EST Office Visit Home Dialysis [address] [place], [place] [phone] [facility], Peritoneal Dialysis [address] [facility] [place], [place] [phone] Health Maintenance Due Date Last Done Comments [...] Date Dose Rate Site Epoetin Melita-epbx (Retacrit) 02403 UNIT/ML inj 13,000 Units 13,000 Units, Subcutaneous, [...] Advance Directives occurred with: Patient Care Teams [facility] Relationship Specialty Start Date End Date Tomer Garner MD [address] [place] [address] PCP - General 09/19/02 documented as of this encounter
--- OUTSIDE RECORDS SUMMARY | 2024-03-17 14:22 | External Medical Summary ---
Author Name Unknown Address Unknown Organization K01:[facility] - [address] [place] [address] Laboratory Report Ordering Provider Test Date Status MARI BOB 12/18/2023 14:37:42 Final Observation Date Value Abnormality Reference (Units ) Status Hep B Core IgM 12/18/2023 14:37:42 Negative Negat lev Final Performing Location [facility] - [address] [place] [address]
--- OUTSIDE RECORDS SUMMARY | 2024-03-17 14:22 | External Medical Summary ---
Author Name Unknown Address Unknown Organization K01:[facility] [place] [address] [place] [address] Laboratory Report Ordering Provider Test Date Status MAGI BOBDEZ 12/18/2023 14:37:42 Final Deficient: <20 ng/mL
Ins ufficient: 20-29 ng/mL
Recommended/Optimum:30-50 ng/mL

Vitamin D intoxication is rare. If suspicious of Vitamin D toxicity, evaluation of serum Calcium and PTH is recommended. Observation Date Value Abnormality Reference (Units ) Status 25-OH Vitamin D total 12/18/2023 14:37:42 28 >19 (ng/mL) Final Performing Location LABORATORY C - [address] [place] [address]
--- OUTSIDE RECORDS SUMMARY | 2024-03-17 14:22 | External Medical Summary ---
Author Name Unknown Address Unknown Organization [id number]:LABORATORY [facility] [place] - [address] [place] [address] Laboratory Report Ordering Provider Test Date Status MARI BOB 12/18/2023 14:37:42 Final Observation Date Value Abnormality Reference (Units ) Status Potassium 12/18/2023 14:37:42 4.0 3.5-5.1 (m mol/L) Final Performing Location [facility] - [address] [place] [address]
--- OUTSIDE RECORDS SUMMARY | 2024-03-17 14:22 | External Medical Summary ---
Author Name Unknown Address Unknown Organization K01:[facility] - [address] [place] [address] Laboratory Report Ordering Provider Test Date Status MARI BOB 12/18/2023 14:37:42 Final Observation Date Value Abnormality Reference (Units ) Status CO2 12/18/2023 14:37:42 20 Below low normal 22- 32 (mmol/L) Final Performing Location [facility] - [address] [place] [address]
--- OUTSIDE RECORDS SUMMARY | 2024-03-17 14:22 | External Medical Summary | Summary of Care ---
Author Name Unknown Organization [facility] Address [address] [place] [address] Phone [phone] Care Team Providers Care Watch Mechanic Name Role Phone Tomer Garner MD Primary Care Provider [phone] Encounter Details Date Type Department Care Team (Late st Contact Info) Description 12/04/2023 1:00 PM EDT Office Visit Home Dialysis Lance [address] [place] [address] [place] [address] [facility], Peritoneal Dialysis [address] [place], [place] [id number] Anemia of renal disease* Allergies No known active allergiesdocumented as of this encounter (statuses as of 12/06/2023) Medications Medication Sig Dispensed Refills Start Date [...] morning. 90 Tablet 3 11/29/2023 Active Retacrit 85343 UNIT/ML Injection Solution (Epoetin melita-epbx ESRD) Inject 0.65 mL under the skin once a week. 3 mL 0 12/04/2023 01/04/2024 Active Syringe 21G X 1" 3 ML Retacrit 13.000 U weekly. 12 Each 6 12/04/2023 Active Hospital, Clinic, or Other Facility Administered Medication Ordered Dose Route Frequency Start Date End Date Status Epoetin Melita-epbx (Retacrit) 76114 UNIT/ML inj 13,000 UnitsIndications:Anemia of renal disease 97303 Units SC ONCE 12/04/2023 12/04/2023 Ended documented as of this encounter (statuses as of 12/06/2023) Active Problems Problem Noted Date Diagnosed Date [...] as of this encounter (statuses as of 12/06/2023) Resolved Problems Problem Noted Date Diagnosed Date [...] as of this encounter (statuses as of 12/06/2023) Immunizations Name Administration Dates Next Due COVID-19 mRNA, LNP-s, No Pre serve, 2-Dose Series (Moderna) 11/23/2020,10/18/2020 DTP Vaccine 1981,1981,1981 HEP B - Hepatitis B (Dialysis/Immumocomp Pt) 05/02/2023,04/04/2023 MMR - Measles/Mumps/Rubella Vaccine 05/11/1982 OPV - Polio Virus Vaccine (Oral) 1981,04/11 Pneumococcal Conjugate Vacci ne, 20-valent ([id number]) 11/17/2022 Pneumococcal Polysaccharide PPV23 (Pneumovax) 02/03/2004 Seasonal [...] [place]ed [place]: [place] [address] units weekly dose given today Pain w/exchanges [...] and 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 [place] to be updated for pt change of [...] [address] [place] [id number] 12/11/2023 8:00 AM EDT Treatment Home Dialysis Hamzah [address] [place] [address] Nurse, Lance Bee [address] [place] [address] 12/26/2023 1:00 PM EDT Office Visit Home Dialysis Hamzah [address] [place] [address] [facility], Peritoneal Dialysis [address] [place] [address] 01/10/2024 8:00 AM EDT Treatment Home Dialysis Hamzah Lucas [address] [place] [address] Nurse, [place] [address] 02/08/2024 1:00 PM EDT Office Visit Home Dialysis Hamzah Lucas [address] [place] [address] [facility], Peritoneal Dialysis [address] [place], [place] [address] 02/10/2024 8:00 AM EDT Treatment Home Dialysis Hamzah Lucas [address] [place] [address] Nurse, Lance Bee [address] [place] [address] 03/05/2024 1:00 PM EDT Office Visit Home Dialysis Hamzah Lucas [address] [place] [address] [facility], Peritoneal Dialysis [address] [place] [address] 03/11/2024 8:00 AM EDT Treatment Home Dialysis Hamzah [address] [place], [place] [address] Nurse, Lance Posterbee Crist[address], [place] [address] 03/19/2024 1:00 PM EDT Office Visit Home Dialysis Hamzah [address], [place] [address] [facility], Peritoneal Dialysis [address] [place] [address] 04/11/2024 8:00 AM EDT Treatment Home Dialysis Hamzah [address], [place] [address] Nurse, [employer] Cristal [address], [place] [address] 04/29/2024 1:00 PM EDT Office Visit Home Dialysis Hmazah [address], [place] [address] [facility], Peritoneal Dialysis [address] [facility], [place] [address] 05/12/2024 8:00 AM EDT Treatment Home Dialysis Hamzah [address], [place] [phone] Nurse, LanceWalldress Cristal [address], [place] [address] 06/07/2024 1:00 PM EDT Office Visit Home Dialysis Hamzah Lucas [address], [place] [address] [facility], Peritoneal Dialysis [address] [place] [facility] [place] [address] 06/11/2024 8:00 AM EDT Treatment Home Dialysis Hamzah [address] [place] [address] Nurse, [employer] Cristal [address], [place] [address] 06/25/2024 1:00 PM EDT Office Visit Home Dialysis Hamzah Lucas [address], [place] [phone] [facility], Peritoneal Dialysis [address] [place], [place] [id number] 07/12/2024 8:00 AM EDT Treatment Home Dialysis Hamzah [address], [place] [phone] Nurse, [employer] [address], [place] [address] 07/22/2024 1:00 PM EST Office Visit Home Dialysis Hamzah Lucas [address], [place] [address] [facility], Peritoneal Dialysis [address] [facility] [place], [place] [address] 08/11/2024 8:00 AM EST Treatment Home Dialysis Hamzah [address], [place] [phone] Nurse, [employer] [address], [place] [address] 08/20/2024 1:00 PM EST Office Visit Home Dialysis Hamzah [address], [place] [address] [facility], Peritoneal Dialysis [address] [facility] [address] [place], [place] [address] Health Maintenance Due Date Last Done Comments [...] Date Dose Rate Site Epoetin Melita-epbx (Retacrit) 94773 UNIT/ML inj 13,000 Units 13,000 Units, Subcutaneous, [...] Advance Directives occurred with: Patient Care Teams Watch Mechanic Relationship Specialty Start Date End Date Tomer Garner MD [address] [place] [address] PCP - General 09/19/02 documented as of this encounter
--- OUTSIDE RECORDS SUMMARY | 2024-03-17 14:22 | External Medical Summary ---
Author Name Unknown Address Unknown Organization K01:LAB[facility]ATORY [facility] - [address] [place] [address] Laboratory Report Ordering Provider Test Date Status MARI BOB 12/18/2023 14:37:42 Final Observation Date Value Abnormality Reference (Units ) Status Ferritin 12/18/2023 14:37:42 1046 Above high normal 30 -400 (ng/mL) Final Performing Location [facility] - [address] [place] [address]
--- OUTSIDE RECORDS SUMMARY | 2024-03-17 14:22 | External Medical Summary | Summary of Care ---
Author Name Unknown Organization [facility] Address [address] [facility] [place] [address] Phone [phone] Care Team Providers Care Toe Former Stitchdowns Name Role Phone Tomer Garner MD Primary Care Provider [phone] Reason for Visit * Reason Comments CAPD Follow-Up Encounter Details Date Type Department Care Team (Late st Contact Info) Description 12/11/2023 8:00 AM EDT Treatment Home Dialysis Clau [address] [place] [address] Nurse, Lance [address] Cap[address] [place] [address] 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 chronic kidney disease, not on chronic dialysis (HCC)*; ESRD on peritoneal dialysis (HCC) Allergies No known active allergiesdocumented as of this encounter (statuses as of 12/11/2023) Medications Medication Sig Dispensed Refills Start Date [...] morning. 90 Tablet 3 11/29/2023 Active Retacrit 82359 UNIT/ML Injection Solution (Epoetin melita-epbx ESRD) Inject 0.65 mL under the skin once a week. 3 mL 0 12/04/2023 01/04/2024 Active Syringe 21G X 1" 3 ML Retacrit 13.000 U weekly. 12 Each 6 12/04/2023 Active documented as of this encounter (statuses as of 12/11/2023) Active Problems Problem Noted Date Diagnosed Date [...] as of this encounter (statuses as of 12/11/2023) Resolved Problems Problem Noted Date Diagnosed Date [...] as of this encounter (statuses as of 12/11/2023) Immunizations Name Administration Dates Next Due COVID-19 mRNA, LNP-s, No Pre serve, 2-Dose Series (Moderna) 11/23/2020,10/18/2020 DTP Vaccine 1981,1981,1981 HEP B - Hepatitis B (Dialysis/Immumocomp Pt) 05/02/2023,04/04/2023 MMR - Measles/Mumps/Rubella Vaccine 05/11/1982 OPV - Polio Virus Vaccine (Oral) 1981,04/11 Pneumococcal Conjugate Vacci ne, 20-valent ([id number]) 11/17/2022 Seasonal Influenza, PF, 6 M & [...] Progress Notes * Karrie Russo TECH - 12/11/2023 8:49 AM EDT Monthly billing note, labs released. documented in this encounter Plan of Treatment Upcoming Encounters Date Type Department Care Team (Late st Contact Info) Description 11/29/2023 Plan of Care Documentation Home Dialysis [address] [id number] 12/26/2023 1:00 PM EDT Office Visit Home Dialysis Clau [address] [phone] [facility], Peritoneal Dialysis [address] [facility] [place] [address] 01/10/2024 8:00 AM EDT Treatment Home Dialysis Clau [address] [phone] NurseLance [address] [place] [address] 02/08/2024 1:00 PM EDT Office Visit Home Dialysis Clau [address] [place] [address] [facility], Peritoneal Dialysis [address] [place] [address] 02/10/2024 8:00 AM EDT Treatment Home Dialysis Clau [address] [place], [place] [address] Nurse, Lance crobo [employer] [address], [place] [address] 03/05/2024 1:00 PM EDT Office Visit Home Dialysis Clau [address] [place], [place] [address] [facility], Peritoneal Dialysis [address] [place] [address] 03/11/2024 8:00 AM EDT Treatment Home Dialysis Clau [address], [place] [address] Nurse, [employer] [address], [place] [address] 03/19/2024 1:00 PM EDT Office Visit Home Dialysis Clau [address], [place] [address] [facility], Peritoneal Dialysis [address] [place] [facility] [place] [address] 04/11/2024 8:00 AM EDT Treatment Home Dialysis Clau [address] [place], [place] [address] Nurse, [employer] [address], [place] [address] 04/29/2024 1:00 PM EDT Office Visit Home Dialysis Clau [address], [place] [address] [facility], Peritoneal Dialysis [address] [facility] [place] [address] 05/12/2024 8:00 AM EDT Treatment Home Dialysis Clau [address] Dr [place], [place] [address] Nurse, [employer] [address], [place] [address] 06/07/2024 1:00 PM EDT Office Visit Home Dialysis Clau [address] [place], [place] [address] [facility], Peritoneal Dialysis [address] [place] [address] 06/11/2024 8:00 AM EDT Treatment Home Dialysis Clau [address], [place] [phone] Nurse, [employer] [address], [place] [address] 06/25/2024 1:00 PM EDT Office Visit Home Dialysis Clau [address], [place] [address] [facility], Peritoneal Dialysis [address] [facility], [place] [address] 07/12/2024 8:00 AM EDT Treatment Home Dialysis Clau [address], [place] [phone] Nurse, [employer] [address] [place] [address] 07/22/2024 1:00 PM EST Office Visit Home Dialysis Clau [address] [place], [place] [address] [facility], Peritoneal Dialysis [address] [place] [facility] [place] [address] 08/11/2024 8:00 AM EST Treatment Home Dialysis Clau [address], [place] [address] Nurse, [employer] [address] [place] [address] 08/20/2024 1:00 PM EST Office Visit Home Dialysis Clau [address] [place] [address] [facility], Peritoneal Dialysis [address] [facility] [place] [address] Scheduled Orders Name Type Priority Associated Diagnoses Orde r Schedule ALT Lab STAT 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 chronic kidney disease, not on chronic dialysis (HCC) ESRD on peritoneal dialysis (HCC) Expected: 12/11/2023, Expires: 01/09/2025 BUN Lab STAT 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 chronic kidney disease, not on chronic dialysis (HCC) ESRD on peritoneal dialysis (HCC) Expected: 12/11/2023, Expires: 01/09/2025 POTASSIUM Lab STAT 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 chronic kidney disease, not on chronic dialysis (HCC) ESRD on peritoneal dialysis (HCC) Expected: 12/11/2023, Expires: 01/09/2025 IRON SCREEN, INCLUDING TIBC Lab STAT 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 chronic kidney disease, not on chronic dialysis (HCC) ESRD on peritoneal dialysis (HCC) Expected: 12/11/2023, Expires: 01/09/2025 ADJUSTED CALCIUM PHOSPHORUS PRODUCT Lab STAT 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 chronic kidney disease, not on chronic dialysis (HCC) ESRD on peritoneal dialysis (HCC) Expected: 12/11/2023, Expires: 01/09/2025 CREATININE Lab Routine 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 chronic kidney disease, not on chronic dialysis (HCC) ESRD on peritoneal dialysis (HCC) Expected: 12/11/2023, Expires: 01/09/2025 CO2 Lab STAT 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 chronic kidney disease, not on chronic dialysis (HCC) ESRD on peritoneal dialysis (HCC) Expected: 12/11/2023, Expires: 01/09/2025 FERRITIN Lab STAT 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 chronic kidney disease, not on chronic dialysis (HCC) ESRD on peritoneal dialysis (HCC) Expected: 12/11/2023, Expires: 01/09/2025 25-HYDROXY VITAMIN D Lab Routine 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 chronic kidney disease, not on chronic dialysis (HCC) ESRD on peritoneal dialysis (HCC) Expected: 12/11/2023, Expires: 12/11/2024 CBC Lab Routine 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 chronic kidney disease, not on chronic dialysis (HCC) ESRD on peritoneal dialysis (HCC) Expected: 12/11/2023, Expires: 01/09/2025 PTH Lab STAT 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 chronic kidney disease, not on chronic dialysis (HCC) ESRD on peritoneal dialysis (HCC) Expected: 12/11/2023, Expires: 01/09/2025 ALUMINUM Lab STAT 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 chronic kidney disease, not on chronic dialysis (HCC) ESRD on peritoneal dialysis (HCC) Expected: 12/11/2023, Expires: 12/11/2024 HEPATITIS B SURFACE ANTIGEN Lab STAT 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 chronic kidney disease, not on chronic dialysis (HCC) ESRD on peritoneal dialysis (HCC) Expected: 12/11/2023, Expires: 12/11/2024 HEPATITIS B SURFACE ANTIBODY Lab STAT 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 chronic kidney disease, not on chronic dialysis (HCC) ESRD on peritoneal dialysis (HCC) Expected: 12/11/2023, Expires: 12/11/2024 HEPATITIS B CORE ANTIBODY IGM Lab Routine 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 chronic kidney disease, not on chronic dialysis (HCC) ESRD on peritoneal dialysis (HCC) Expected: 12/11/2023, Expires: 12/11/2024 HEPATITIS B CORE ANTIBODIES IGG AND IGM Lab Routine 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 chronic kidney disease, not on chronic dialysis (HCC) ESRD on peritoneal dialysis (HCC) Expected: 12/11/2023, Expires: 12/11/2024 HEPATITIS C ANTIBODY Lab Routine 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 chronic kidney disease, not on chronic dialysis (HCC) ESRD on peritoneal dialysis (HCC) Expected: 12/11/2023, Expires: 12/11/2024 CHLORIDE Lab Routine 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 chronic kidney disease, not on chronic dialysis (HCC) ESRD on peritoneal dialysis (HCC) One Time for 1 Occurrences starting 12/11/2023 until 12/11/2023 SODIUM Lab Routine 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 chronic kidney disease, not on chronic dialysis (HCC) ESRD on peritoneal dialysis (HCC) One Time for 1 Occurrences starting 12/11/2023 until 12/11/2023 Health Maintenance Due Date Last Done Comments [...] Advance Directives occurred with: Patient Care Teams Toe Former Stitchdowns Relationship Specialty Start Date End Date Tomer Garner MD [address] [place] [facility] [place] [address] PCP - General 09/19/02 documented as of this encounter
--- OUTSIDE RECORDS SUMMARY | 2024-03-17 14:22 | External Medical Summary | Summary of Care ---
Author Name Unknown Organization [facility] Address [address] [facility] [place] [address] Phone [phone] Care Team Providers Care Beehive Kiln Charcoal Burner Name Role Phone Tomer Garner MD Primary Care Provider Reason for Visit * Reason Onset Date Comments Patient Instructions 12/15/2023 Encounter Details Date Type Department Care Team ([facility] st Contact Info) Description 12/15/2023 Telephone Home Dialysis [address]iel [address] [place] [address] [place] [address] Lana Soto, RN Patient Instructions Allergies No known active allergiesdocumented as of this encounter (statuses as of 12/15/2023) Medications Medication Sig Dispensed Refills Start Date [...] morning. 90 Tablet 3 11/29/2023 Active Retacrit 81212 UNIT/ML Injection Solution (Epoetin melita-epbx ESRD) Inject 0.65 mL under the skin once a week. 3 mL 0 12/04/2023 01/03/2024 Active Syringe 21G X 1" 3 ML Retacrit 13.000 U weekly. 12 Each 6 12/04/2023 Active documented as of this encounter (statuses as of 12/15/2023) Active Problems Problem Noted Date Diagnosed Date [...] as of this encounter (statuses as of 12/15/2023) Resolved Problems Problem Noted Date Diagnosed Date [...] as of this encounter (statuses as of 12/15/2023) Immunizations Name Administration Dates Next Due COVID-19 mRNA, LNP-s, No Pre serve, 2-Dose Series (Moderna) 11/23/2020,10/18/2020 DTP Vaccine 1981,1981,1981 HEP B - Hepatitis B (Dialysis/Immumocomp Pt) 05/02/2023,04/04/2023 MMR - Measles/Mumps/Rubella Vaccine 05/11/1982 OPV - Polio Virus Vaccine (Oral) 1981,04/11 Pneumococcal Conjugate Vacci ne, 20-valent ([id number]) 11/17/2022 Seasonal Influenza, PF, 6 M & [...] Telephone Encounter - Lana Soto RN - 12/15/2023 3:00 PM EDT Left voice message for Chandan reminding him to get Kathia labs drawn as soon as possible next week soresults are available for PD clinic appointment on 12/25. documented in this encounter Plan of Treatment Upcoming Encounters Date Type Department Care Team (Late st Contact Info) Description 11/29/2023 Plan of Care Documentation Home Dialysis Clau [address] [place] [phone] 12/26/2023 1:00 PM EDT Office Visit Home Dialysis Clau [address] [place] [address] [facility], Peritoneal Dialysis [address] [facility] [place] [address] 01/10/2024 8:00 AM EDT Treatment Home Dialysis Clau [address] [place] [place] [phone] [place] [address] 02/08/2024 1:00 PM EDT Office Visit Home Dialysis Clau [address] [phone] [facility], Peritoneal Dialysis [address] [place] [address] 02/10/2024 8:00 AM EDT Treatment Home Dialysis Clau [address] [place], [place] [address] Nurse, Lance Melon [facility] [address], [place] [address] 03/05/2024 1:00 PM EDT Office Visit Home Dialysis Clau [address] [place], [place] [address] [facility], Peritoneal Dialysis [address] [place] [address] 03/11/2024 8:00 AM EDT Treatment Home Dialysis Clau [address] [place], [place] [address] Nurse, Blendin [facility] [address], [place] [address] 03/19/2024 1:00 PM EDT Office Visit Home Dialysis Clau [address] [place], [place] [address] [facility], Peritoneal Dialysis [address] [place] [facility] [place] [address] 04/11/2024 8:00 AM EDT Treatment Home Dialysis Clau [address] [place], [place] [address] Nurse, LanceRight [employer]isphere [address]al [address] [place], [place] [address] 04/29/2024 1:00 PM EDT Office Visit Home Dialysis Clau [address] [place], [place] [address] [facility], Peritoneal Dialysis [address] [place] [facility] [place] [address] 05/12/2024 8:00 AM EDT Treatment Home Dialysis Clau [address] [place] [address] Nurse, Lance [place], [place] [address] 06/07/2024 1:00 PM EDT Office Visit Home Dialysis Clau [address] [place], [place] [address] [facility], Peritoneal Dialysis [address] [place] [address] 06/11/2024 8:00 AM EDT Treatment Home Dialysis Clau [address] [place], [place] [address] Nurse, Lancebaltazar Bee [address], [place] [address] 06/25/2024 1:00 PM EDT Office Visit Home Dialysis Clau [address] [place], [place] [address] [facility], Peritoneal Dialysis [address] [place] [facility] [place] [address] 07/12/2024 8:00 AM EDT Treatment Home Dialysis Clau [address] [place], [place] [phone] Nurse, Lance Bee [address] [place], [place] [address] 07/22/2024 1:00 PM EST Office Visit Home Dialysis Clau [address] [place], [place] [address] [facility], Peritoneal Dialysis [address] [facility], [place] [address] 08/11/2024 8:00 AM EST Treatment Home Dialysis Clau [address] [place], [place] [address] Nurse, Lance Bee [address] [place], [place] [address] 08/20/2024 1:00 PM EST Office Visit Home Dialysis Clau [address] [place], [place] [address] [facility], Peritoneal Dialysis [address] [place] [address] Health Maintenance Due Date Last Done Comments [...] Advance Directives occurred with: Patient Care Teams Beehive Kiln Charcoal Burner Relationship Specialty Start Date End Date Tomer Garner MD [address] [place] [address] PCP - General 09/19/02 documented as of this encounter
--- OUTSIDE RECORDS SUMMARY | 2024-03-17 14:22 | External Medical Summary ---
Author Name Unknown Address Unknown Organization K01:LABORATORY [facility] [place] [address] [place] [address] Laboratory Report Ordering Provider Test Date Status MARI BOB 12/18/2023 14:37:42 Final Observation Date Value Abnormality Reference (Units ) Status ALT (Alanine aminotransferase) 12/18/2023 14:37:42 35 10-50 (U/L) Final Performing Location [facility] - [address] [place] [address]
--- OUTSIDE RECORDS SUMMARY | 2024-03-17 14:22 | External Medical Summary ---
Author Name Unknown Address Unknown Organization K01:LABORATORY [facility] [place] - [address] [place] [address] Laboratory Report Ordering Provider Test Date Status MARI BOB 12/18/2023 14:37:42 Final Observation Date Value Abnormality Reference (Units ) Status Parathyrin.intact [Mass/volume] in Serum or Plasma 12/18/2023 14:37:42 836 Above high normal 15-65 (pg/mL) Final Performing Location LABORATORY [facility] [place] - [address] [place] [address]
--- OUTSIDE RECORDS SUMMARY | 2024-03-17 14:22 | External Medical Summary ---
Author Name Unknown Address Unknown Organization K01:[facility]ATORY [facility] [place] [address] [place] [address] Laboratory Report Ordering Provider Test Date Status LISBETHGUERRA 12/18/2023 14:37:42 Final Observation Date Value Abnormality Reference (Units ) Status Albumin 12/18/2023 14:37:42 4.4 3.8-5.0 (g/dL) Final Calcium 12/18/2023 14:37:42 9.2 8.4-10.2 (mg/dL) Final Phosphate 12/18/2023 14:37:42 12.2 Above high normal 2.5-4.8 (mg/dL) Final Calcium [Moles/volume] corrected for albumin in Serum or Plasma 12/18/2023 14:37:42 9.2 (mg/dL) Final Calcium-phosphorus product panel - Serum or Plasma 12/18/2023 14:37:42 112.2 Final Performing Location LABORATORY [facility] [place] - [facility] [place] [address]
--- OUTSIDE RECORDS SUMMARY | 2024-03-17 14:22 | External Medical Summary ---
Author Name Unknown Address Unknown Organization K01:LABORATORY [place] [address] [place] [address] Laboratory Report Ordering Provider Test Date Status MARI BOB 12/18/2023 14:37:42 Final Observation Date Value Abnormality Reference (Units) Status Hepatitis B virus surface Ab [Units/volume] in Serum or Plasma by Immunoassay 12/18/2023 14:37:42 10.4 (mIU/mL) Final Hepatitis B virus surface Ab [Presence] in Serum by Immunoassay 12/18/2023 14:37:42 Indeterminate Final HEPATITIS B SURFACE ANTIBODY, INTERPRETATION 12/18/2023 14:37:42 Suggest repeat testing in 1 to 3 months. Final POSITIVE: >=11.5 mIU/mL
INDETERMINATE: 8.5-<11.5 mIU/mL
NEGATIVE: <8.5 mIU/mL Performing Location LABORATORY [place] [address] [address]
--- OUTSIDE RECORDS SUMMARY | 2024-03-17 14:22 | External Medical Summary | Summary of Care ---
Author Name Unknown Organization [facility] Address [address] [facility] [address] Phone [phone] Care Team Providers Care Clinical Nursing Coordinator Name Role Phone Tomer Garner MD Primary Care Provider [phone] Reason for Visit * Reason Comments Advice Encounter Details Date Type Department Care Team (Late st Contact Info) Description 12/04/2023 Car Sales Representative Home Dialysis [facility] [address] [place] [address] [place] [address] Nancy Tolbert, [employer] Allergies No known active allergiesdocumented as of this encounter (statuses as of 12/08/2023) Medications Medication Sig Dispensed Refills Start Date [...] morning. 90 Tablet 3 11/29/2023 Active Retacrit 23618 UNIT/ML Injection Solution (Epoetin melita-epbx ESRD) Inject 0.65 mL under the skin once a week. 3 mL 0 12/04/2023 01/04/2024 Active Syringe 21G X 1" 3 ML Retacrit 13.000 U weekly. 12 Each 6 12/04/2023 Active documented as of this encounter (statuses as of 12/08/2023) Active Problems Problem Noted Date Diagnosed Date [...] as of this encounter (statuses as of 12/08/2023) Resolved Problems Problem Noted Date Diagnosed Date [...] as of this encounter (statuses as of 12/08/2023) Immunizations Name Administration Dates Next Due COVID-19 mRNA, LNP-s, No Pre serve, 2-Dose Series (Moderna) 11/23/2020,10/18/2020 DTP Vaccine 1981,1981,1981 HEP B - Hepatitis B (Dialysis/Immumocomp Pt) 05/02/2023,04/04/2023 MMR - Measles/Mumps/Rubella Vaccine 05/11/1982 OPV - Polio Virus Vaccine (Oral) 1981,04/11 Pneumococcal Conjugate Vacci ne, 20-valent ([id number]) 11/17/2022 Seasonal Influenza, PF, 6 M & [...] Progress Notes * Nancy Tolbert LSW - 12/08/2023 2:16 PM EDT SOCIAL WORK QUARTERLY NOTE - Peritoneal Dialysis Gender: male Age: [age] year old Mental Health Changes: None reported. Comments: Patient presents at his baseline with no issues or concerns noted. Patient is consistently pleasant and easily engages with principal technical writer and staff. Activities of Daily Living Changes: None reported. Comments: Patient resides independently at home with his family. Support System Changes: None reported. Comments: Patient presents with an intact support system. Will continue to follow and will remain available to address psychosocial issues as needed in the clinic setting. KADEN Delaney Outpatient Manager Heart documented in this encounter Plan of Treatment Upcoming Encounters Date Type Department Care Team (Late st Contact Info) Description 11/29/2023 Plan of Care Documentation Home Dialysis [address] [place] [address] 12/11/2023 8:00 AM EDT Treatment Home Dialysis Hamzah [address] [place] [address] [place] [address] 12/26/2023 1:00 PM EDT Office Visit Home Dialysis Hamzah [address] [place] [address] [facility] [place] [address] [place] [address] 01/10/2024 8:00 AM EDT Treatment Home Dialysis Hamzah [address], [place] [address] Nurse, Lance Artillery [address], [place] [address] 02/08/2024 1:00 PM EDT Office Visit Home Dialysis Hamzah [address] [place] [address] [facility] [place] [address] [place] [address] 02/10/2024 8:00 AM EDT Treatment Home Dialysis Hamzah [address], [place] [address] Nurse, [employer] [place] [address] [place] [address] 03/05/2024 1:00 PM EDT Office Visit Home Dialysis Hamzah [address], [place] [address] [facility] [place] [address] [facility] [place], [place] [address] 03/11/2024 8:00 AM EDT Treatment Home Dialysis Hamzah [address], [place] [address] Nurse, 8[employer] Cristal [address], [place] [address] 03/19/2024 1:00 PM EDT Office Visit Home Dialysis Ham[address], [place] [address] [facility] [place] [address] [facility] [place] [place] [address] 04/11/2024 8:00 AM EDT Treatment Home Dialysis Hamzah [address], [place] [address] Nurse, Lance Bee [address], [place] [address] 04/29/2024 1:00 PM EDT Office Visit Home Dialysis Hamzah [address] [place] [address] [facility] [place] [address] [place] [address] 05/12/2024 8:00 AM EDT Treatment Home Dialysis Ham[address], [place] [address] Nurse, 8[employer] Crist[address], [place] [address] 06/07/2024 1:00 PM EDT Office Visit Home Dialysis Hamzah [address], [place] [address] [facility] [place] [address] [facility] [place] [address] 06/11/2024 8:00 AM EDT Treatment Home Dialysis Hamzah [address], [place] [address] Nurse, Lance Bee [address], [place] [address] 06/25/2024 1:00 PM EDT Office Visit Home Dialysis Hamzah [address], [place] [address] [facility] [place] [address] [facility] [place] [address] 07/12/2024 8:00 AM EDT Treatment Home Dialysis Hamzah [address], [place] [address] Nurse, Lance Bee [address], [place] [address] 07/22/2024 1:00 PM EST Office Visit Home Dialysis Hamzah [address] [place] [address] [facility] [place]ialysis [address] [place], [place] [address] 08/11/2024 8:00 AM EST Treatment Home Dialysis Hamzah [address], [place] [phone] Nurse, [address] [place] [address] 08/20/2024 1:00 PM EST Office Visit Home Dialysis Ham[address], [place] [phone] [facility] [place]ialysis [address] [place] [id number] Health Maintenance Due Date Last Done Comments [...] Advance Directives occurred with: Patient Care Teams Clinical Nursing Coordinator Relationship Specialty Start Date End Date Tomer Garner MD [address] [place] [address] PCP - General 09/19/02 documented as of this encounter
--- OUTSIDE RECORDS SUMMARY | 2024-03-17 14:22 | External Medical Summary ---
Author Name Unknown Address Unknown Organization : Laboratory Report Ordering Provider Test Date Status MARI BBO 12/18/2023 14:37:42 Final Observation Date Value Abnormality Reference (Units ) Status Aluminum 12/18/2023 14:37:42 8 Above high normal <7 (mcg/L) Final Ref. Range, Dialysis Patient : <40 mcg/L
This test was developed and its analytical performance
characteristics have been determined by [employer]
[place], [place]. It has
not been cleared or approved by the U.S. Food and Drug
Administration. This assay has been validated pursuant
to the CLIA regulations and is used for clinical
purposes.

Test Performed at:
[facility]
[address] [facility]
[place] [address]
Yves Pozo M.D., Ph.D.,Director of Laboratories Performing Location
--- OUTSIDE RECORDS SUMMARY | 2024-03-17 14:22 | External Medical Summary ---
Author Name Unknown Address Unknown Organization K01:[facility] [address] [facility] [place] [address] Laboratory Report Ordering Provider Test Date Status MARI BOB 12/18/2023 14:37:42 Final Observation Date Value Abnormality Reference (Units ) Status Hepatitis B virus core Ab [Presence] in Serum 12/18/2023 14:37:42 Negative Negative Final Performing Location [facility] [place] [address] [place] [address]
--- OUTSIDE RECORDS SUMMARY | 2024-03-17 14:22 | External Medical Summary ---
Author Name Unknown Address Unknown Organization K01:[facility] - [address] [place] [address] Laboratory Report Ordering Provider Test Date Status MARI BOB 12/18/2023 14:37:42 Final Observation Date Value Abnormality Reference (Units ) Status BUN 12/18/2023 14:37:42 67 Above high normal 6- 20 (mg/dL) Final Performing Location [facility] - [address] [place] [address]
--- OUTSIDE RECORDS SUMMARY | 2024-03-17 14:23 | External Medical Summary | Summary of Care ---
Author Name Unknown Organization [facility] Address [address] [place] [address] Phone [phone] Care Team Providers Care Pre Owned Sales Consultant Name Role Phone Tomer Garner MD Primary Care Provider Encounter Details Date Type Department Care Team (Late st Contact Info) Description 11/27/2023 1:15 PM EDT Scheduled Telephone Care Coordination and Integration [address] [place], [place] [phone] Tamica Swann, Community [facility] Returned Item Clerk [address] [place], [place] [phone] Allergies No known active allergiesdocumented as of this encounter (statuses as of 11/27/2023) Medications Medication Sig Dispensed Refills Start Date [...] the morning. 90 Tablet 3 03/23/2023 Active Cinacalcet HCl 30 MG Oral Tablet (Sensipar) Take 1 Tablet by mouth in the morning. 90 Tablet 3 05/09/2023 Active Additional Information Patient not taking.Reported on 11/03/2023 Calcium Acetate (Phos Binder) 667 MG Oral [...] 08/21/2023 Active Gentamicin Sulfate 0.1 % External CreamIndications:E SRD [...] the morning. 30 Tablet 11 11/21/2023 Active documented as of this encounter (statuses as of 11/27/2023) Active Problems Problem Noted Date Diagnosed Date [...] as of this encounter (statuses as of 11/27/2023) Resolved Problems Problem Noted Date Diagnosed Date [...] as of this encounter (statuses as of 11/27/2023) Immunizations Name Administration Dates Next Due COVID-19 mRNA, LNP-s, No Pre serve, 2-Dose Series (Moderna) 11/23/2020,10/18/2020 DTP Vaccine 1981,1981,1981 HEP B - Hepatitis B (Dialysis/Immumocomp Pt) 05/02/2023,04/04/2023 MMR - Measles/Mumps/Rubella Vaccine 05/11/1982 OPV - Polio Virus Vaccine (Oral) 1981,04/11 Pneumococcal Conjugate Vacci ne, 20-valent ([id number]) 11/17/2022 Pneumococcal Polysaccharide PPV23 (Pneumovax) 02/03/2004 Seasonal [...] as of this encounter Progress Notes * Tamica Swann Community [facility] Returned Item Clerk - 11/27/2023 3:49 PM EDT 2nd call to pt for yakelin call LM Tamica Swann Community [facility] Worker * Tamica Swann [facility] Returned Item Clerk - 11/27/2023 11:50 AM EDT Call to pt for Yakelin [phone] LM Tamica Swann [facility] Returned Item Clerk Electronically signed by Tamica Swann [facility] Returned Item Clerk at 11/27/2023 11:53 AM EDT documented in this encounter Plan of Treatment Upcoming Encounters Date Type Department Care Team (Late st Contact Info) Description 12/04/2023 1:00 PM EDT Office Visit Home Dialysis [address] [phone] [facility], Peritoneal Dialysis [address] [facility] [place] [address] 12/11/2023 8:00 AM EDT Treatment Home Dialysis Clau [address] [phone] NurseLance [address] [phone] 12/11/2023 1:00 PM EDT Nurse Only Home Dialysis [address] [phone] Nurse, Lance Bee [address] [place] [address] 12/26/2023 1:00 PM EDT Office Visit Home Dialysis Clau [address], [place] [address] [facility] Peritoneal Dialysis [address] [facility] [place] [address] 01/10/2024 8:00 AM EDT Treatment Home Dialysis Clau [address], [place] [phone] Nurse, Lance [address] [employer] [address], [place] 01/10/2024 1:00 PM EDT Nurse Only Home Dialysis [address], [place] [phone] Nurse, Lance [place]uit [employer] [address], [place] 02/08/2024 1:00 PM EDT Office Visit Home Dialysis Clau [address], [place] [address] [facility] Peritoneal Dialysis [address] [place] [facility] [place] [address] 02/10/2024 8:00 AM EDT Treatment Home Dialysis Clau [address], [place] [phone] Nurse, Lance Antuit [address], [place] [address] 02/12/2024 1:00 PM EDT Nurse Only Home Dialysis [address], [place] [phone] Nurse, [employer] Cristal [address], [place] [address] 03/05/2024 1:00 PM EDT Office Visit Home Dialysis Clau [address], [place] [address] [facility] Peritoneal Dialysis [address] [place] [facility] [place] [address] 03/11/2024 8:00 AM EDT Treatment Home Dialysis Clau [address], [place] [phone] Nurse, Lance Antuit [address], [place] [address] 03/11/2024 1:00 PM EDT Nurse Only Home Dialysis [address], [place] [phone] Nurse, Lance Antuit [address], [place] [address] 03/19/2024 1:00 PM EDT Office Visit Home Dialysis Clau [address], [place] [address] [facility] Peritoneal Dialysis [address] [facility], [place] [address] 04/11/2024 8:00 AM EDT Treatment Home Dialysis Clau [address], [place] [phone] Nurse, Lance Antuit [address], [place] [address] 04/11/2024 1:00 PM EDT Nurse Only Home Dialysis Clau [address], [place] [phone] Nurse, Lance Antuit [address] [place] [address] 04/29/2024 1:00 PM EDT Office Visit Home Dialysis Clau [address], [place] [phone] [facility] Peritoneal Dialysis [address] [place] [facility] [place] [address] 05/12/2024 8:00 AM EDT Treatment Home Dialysis Clau [address] [place], [place] [address] Nurse, Lance [address] [employer] [address], [place] [address] 05/14/2024 1:00 PM EDT Nurse Only Home Dialysis Cl[address], [place] [address] Nurse, Lance [address] [employer] [address], [place] [address] 06/07/2024 1:00 PM EDT Office Visit Home Dialysis Clau [address], [place] [address] [facility] Peritoneal Dialysis [address] [place] [address] 06/11/2024 8:00 AM EDT Treatment Home Dialysis Clau [address], [place] [phone] Nurse, Lance Antuit [employer] [address], [place] [address] 06/11/2024 1:00 PM EDT Nurse Only Home Dialysis [address], [place] [phone] Nurse, Lance [address] [employer] [address], [place] [address] 06/25/2024 1:00 PM EDT Office Visit Home Dialysis [address], [place] [address] [facility] Peritoneal Dialysis [address] [facility] [place] [address] 07/12/2024 8:00 AM EDT Treatment Home Dialysis Clau [address] [place] [place], [place] [phone] Nurse, Lance [address] [employer] [address], [place] [address] 07/12/2024 1:00 PM EDT Nurse Only Home [place] [address] Nurse, Lance Antuit [employer] [address] [place] [address] 07/22/2024 1:00 PM EST Office Visit Home Dialysis [address]au [address], [place] [phone] [facility] Peritoneal Dialysis [address] [facility] [place] [phone] 08/11/2024 8:00 AM EST Treatment Home Dialysis Clau [address], [place] [phone] Nurse, [employer] Crist[address] [place], [place] [address] 08/12/2024 1:00 PM EST Nurse Only Home Dialysis Clau [address], [place] [address] Nurse, [employer] [address], [place] [address] 08/20/2024 1:00 PM EST Office Visit Home Dialysis Clau Lucas [address] [place], [place] [phone] [facility] Peritoneal Dialysis [address] [facility], [place] [address] Health Maintenance Due Date Last Done Comments COVID-19 Vaccine (3 - Moderna risk series) 12/21/2020 11/23/2020, 10/18/2020 Hepatitis B (3 of 4 - Risk Dialysis Recombivax 3-dose series) 10/05/2023 05/02/2023, 04/04/2023 Depression Screening 11/06/2024 11/06/2023 Lipid Panel 05/18/2026 05/18/2021, 12/0 09/2009, 11/11/2004, Additional history exists Diabetes Screening 11/22/2026 11/23/2023, 0 11/14/2023, 11/07/2023, Additional history exists DTaP,Tdap,and Td Vaccines (6 [...] Advance Directives occurred with: Patient Care Teams Pre Owned Sales Consultant Relationship Specialty Start Date End Date Tomer Garner MD [address] [place] [address] PCP - General 09/19/02 documented as of this encounter
--- OUTSIDE RECORDS SUMMARY | 2024-03-17 14:23 | External Medical Summary | Summary of Care ---
Author Name Unknown Organization [facility] Address [address] [place] [address] Phone [phone] Care Team Providers Care Boiler Water Tester Name Role Phone Tomer Garner MD Primary Care Provider [phone] Reason for Visit * Reason Comments Hemodialysis * Episode Based Medications (Routine) - Closed Specialty Diagnoses / Procedures Referred By Contac t Referred To Contact Diagnoses ESRD on peritoneal dialysis (HCC) 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 chronic kidney disease, not on chronic dialysis (HCC) Procedures AK EPOETIN SLOAN, NON-ESRD AK EPOETIN SLOAN, 100 UNITS ESRD Yonny Saldivar MD [address] [place] [address] [address] [place] [address] Referral ID Status Reason Start Date Expiration Date Visits Re quested Visits Authorized [id number] Closed 08/22/2023 02/21/[phone] Encounter Details Date Type Department Care Team (Late st Contact Info) Description 09/12/2023 5:30 AM EST Treatment Hemodialysis [address] [place] [address] ESRD (end stage renal disease) (HCC)*; Anemia of chronic renal failure, stage 5 (HCC); Anemia in chronic kidney disease, on chronic dialysis (HCC); Anemia in chronic renal disease; 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 chronic kidney disease, not on chronic dialysis (HCC) Allergies No known active allergiesdocumented as of this encounter (statuses as of 11/21/2023) Medications Medication Sig Dispensed Refills Start Date End Date Status Lovastatin 10 MG Oral TabletIndication s:Kidney replaced by transplant Take 1 Tablet by mouth in the morning. 90 Tablet 3 09/28/2022 Active cycloSPORINE Modified 25 MG Oral CapsuleIndicatio [...] the morning. 90 Tablet 3 05/09/2023 Active Calcium Acetate (Phos Binder) 667 MG [...] 08/21/2023 Active Gentamicin Sulfate 0.1 % External CreamIndications :ESRD on peritoneal dialysis (HCC) Apply topically to affected area daily. Apply to PD exit catheter site daily after showering and cover with bandage 15 g 2 09/08/2023 Active Metoprolol Succinate ER 100 MG Oral Tablet Extended Release 24 Hour (Toprol XL) Take 1 Tablet (100 mg) by mouth in the morning. 120 Tablet 3 08/01/2022 09/29/19 24 Discontinued Mycophenolate Mofetil 500 MG Oral Tablet (CellCept) Take 1 Tablet by mouth in the morning and 1 Tablet before bedtime. 360 Tablet 1 11/07/2022 10/31/19 24 Discontinued Losartan Potassium 25 MG Oral Tablet (Cozaar)Indicati ons:HTN, goal below 130/80 Take 1 Tablet by mouth in the morning. 90 Tablet 3 11/17/2022 10/27/19 24 Discontinued NIFEdipine ER 30 MG Oral Tablet Extended Release 24 Hour (Adalat CC) Take 1 Tablet by mouth in the morning. 60 Tablet 6 06/07/2023 10/27/19 24 Discontinued documented as of this encounter (statuses as of 11/21/2023) Active Problems Problem Noted Date Diagnosed Date [...] as of this encounter (statuses as of 11/21/2023) Resolved Problems Problem Noted Date Diagnosed Date [...] as of this encounter (statuses as of 11/21/2023) Immunizations Name Administration Dates Next Due COVID-19 mRNA, LNP-s, No Pre serve, 2-Dose Series (Moderna) 11/23/2020,10/18/2020 DTP Vaccine 1981,1981,1981 HEP B - Hepatitis B (Dialysis/Immumocomp Pt) 05/02/2023,04/04/2023 MMR - Measles/Mumps/Rubella Vaccine 05/11/1982 OPV - Polio Virus Vaccine (Oral) 1981,04/11 Pneumococcal Conjugate Vacci ne, 20-valent ([id number]) 11/17/2022 Seasonal Influenza, PF, 6 M & [...] Sign Reading Time Taken Comments Blood Pressure 109/65 09/12/2023 9:30 AM EST Pulse 74 09/12/2023 9:40 AM EST Temperature 36.7 C (98.1 F) 09/12/2023 9:40 AM ES T Respiratory Rate 16 09/12/2023 9:40 AM EST Oxygen Saturation - - Inhaled Oxygen Concentration [...] [address] [place] [address] Nurse, Lance Lopez [facility] [address] [place] [address] 12/04/2023 1:00 PM EDT Office Visit Home Dialysis [facility] [address] [phone] [facility], Peritoneal Dialysis [address] [facility] [place] [id number] 12/11/2023 8:00 AM EDT Treatment Home Dialysis [facility] [address] [place], [place] [phone] Nurse, Lance [address] [facility] [address] [place], [place] [address] 12/11/2023 1:00 PM EDT Nurse Only Home Dialysis [facility] [place], [place] [phone] Nurse, Lance Drive [facility] [address] [place], [place] [address] 12/26/2023 1:00 PM EDT Office Visit Home Dialysis [facility] [place], [place] [phone] [facility] [place] [place], Peritoneal Dialysis [address] [place] [address] 01/10/2024 8:00 AM EDT Treatment Home Dialysis [facility] [place], [place] [phone] Nurse, Lance [address] [facility] [address] [place] [address] 01/10/2024 1:00 PM EDT Nurse Only Home Dialysis [address] [place], [place] [phone] Nurse, Lance [address] [facility] [address] [place] [address] 02/08/2024 1:00 PM EDT Office Visit Home Dialysis [address] [place] [address] [facility] [place] [place], Peritoneal Dialysis [address] [place] [address] 02/10/2024 8:00 AM EDT Treatment Home Dialysis [facility] [address] [place], [place] [phone] Nurse, Lance [address] [facility] [address] [place], [place] [address] 02/12/2024 1:00 PM EDT Nurse Only Home Dialysis [facility] [place], [place] [phone] Nurse, Lance [address] [facility] [address] [place], [place] [address] 03/05/2024 1:00 PM EDT Office Visit Home Dialysis [facility] [place], [place] [phone] [facility] [place] [place], Peritoneal Dialysis [address] [place] [address] 03/11/2024 8:00 AM EDT Treatment Home Dialysis [facility] [address] [place], [place] [phone] Nurse, Lance [address] [facility] [address] [place], [place] 03/11/2024 1:00 PM EDT Nurse Only Home Dialysis [facility] [place], [place] [phone] Nurse, Lance [address] [place], [place] [address] 03/19/2024 1:00 PM EDT Office Visit Home Dialysis [facility] [place], [place] [address] [facility] [place] [place], Peritoneal Dialysis [address] [facility] [place] [address] 04/11/2024 8:00 AM EDT Treatment Home Dialysis [facility] [address] [place], [place] [phone] Nurse, Lance[address] [place], [place] [address] 04/11/2024 1:00 PM EDT Nurse Only Home Dialysis [facility] [place], [place] [phone] Nurse, Lance [address] [place], [place] [address] 04/29/2024 1:00 PM EDT Office Visit Home Dialysis [address] [place], [place] [address] [facility] [place] [place], Peritoneal Dialysis [address] [place] [address] 05/12/2024 8:00 AM EDT Treatment Home Dialysis [address] [place], [place] [address] Nurse, [employer] [facility] [address] [place] [address] 05/14/2024 1:00 PM EDT Nurse Only Home Dialysis [address] [place], [place] [phone] Nurse, [employer] [facility] [address] [place], [place] [address] 06/07/2024 1:00 PM EDT Office Visit Home Dialysis [address] [place], [place] [address] [facility] [place] [place], Peritoneal Dialysis [address] [place] [address] 06/11/2024 8:00 AM EDT Treatment Home Dialysis [facility] [address] [place], [place] [phone] Nurse, [employer] [address] [place], [place] [address] 06/11/2024 1:00 PM EDT Nurse Only Home Dialysis [address] [place], [place] [address] Nurse, [employer] [address] [place], [place] [address] 06/25/2024 1:00 PM EDT Office Visit Home Dialysis [facility] [address] [place], [place] [address] [facility] [place], Peritoneal Dialysis [address] [facility] [place] [address] 07/12/2024 8:00 AM EDT Treatment Home Dialysis [facility] [address] [place], [place] [address] Nurse, Lancebaltazar Bee [address] [place], [place] [address] 07/12/2024 1:00 PM EDT Nurse Only Home Dialysis [facility] [address] [place] [address] Nurse, Lance [employer] [address] [place] [address] 07/22/2024 1:00 PM EST Office Visit Home Dialysis [facility] [address] [place] [address] [facility] [place], Peritoneal Dialysis [address] [facility] [place] [address] 08/11/2024 8:00 AM EST Treatment Home Dialysis [facility] [address] [place] [address] [address] Nurse, [employer] [address] [place] [place], [place] [address] 08/12/2024 1:00 PM EST Nurse Only Home Dialysis [facility] [address] [place] [address] Nurse, [employer] [address] [place], [place] [address] 08/20/2024 1:00 PM EST Office Visit Home Dialysis [address] [place], [place] [address] [facility] [place] [place], Peritoneal Dialysis [address] [facility] [place] [address] Health Maintenance Due Date Last Done Comments COVID-19 Vaccine (3 - Moderna risk series) 12/21/2020 11/23/2020, 10/18/2020 Hepatitis B (3 of 4 - Risk Dialysis Recombivax 3-dose series) 10/05/2023 05/02/2023, 04/04/2023 Depression Screening 11/06/2024 11/06/2023 Lipid Panel 05/18/2026 05/18/2021, 12/0 09/2009, 11/11/2004, Additional history exists Diabetes Screening 11/13/2026 11/14/2023, 0 11/07/2023, 10/31/2023, Additional history exists DTaP,Tdap,and Td Vaccines (6 [...] of this encounter Visit Diagnoses Diagnosis ESRD (end stage renal disease) (HCC)- Primary End stage renal disease Anemia of chronic renal failure, stage 5 (HCC) Anemia in chronic kidney disease, on chronic dialysis (HCC) 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 chronic kidney disease, not on chronic dialysis (HCC) documented in this encounter Administered Medications Inactive Administered Medications - up to 3 most recent administrations Medication Order MAR Action Action Date Dose Rate Site Doxercalciferol (Hectorol) 2 MCG/ML inj 4 mcg 4 mcg, Intravenous, ONCE, On Mon09/12/23 at 0700, For 1 dose Given 09/12/2023 7:58 AM EST 4 mcg Epoetin Sloan 18160 UNIT/ML inj 7,600 Units 7,600 Units, Intravenous, ONCE, On Mon09/12/23 at 0700, For 1 dose Given 09/12/2023 7:58 AM EST 7,600 Units hEParin 1,000 unit/mL infusion for dialysis 500 Units/hr (0.5 mL/hr), Hemodialysis, CONTINUOUS, Starting on Mon09/12/23 at 0700, Until Mon09/12/23 at 1458, Maintenance: Stop 1 hour before dialysis end in AVF/AVG. Continue through dialysis in CVC. The total delivered dose is approximately 2,500 to 5,000 units, based on weight and treatment duration assumptions Start Infusion 09/12/2023 5:37 AM EST 500 Units/hr 0.5 mL/hr hEParin 1000 UNIT/ML inj 2,000 Units 2,000 Units, Intravenous, ONCE, On Mon09/12/23 at 0700, For 1 dose, Loading dose Given 09/12/2023 5:37 AM EST 2,000 Units sodium citrate 4% (Anticoagulant Sodium Citrate) inj 2.5 mL 2.5 mL, Dialysis catheter, ONCE, On Mon09/12/23 at 0700, For 1 dose, ARTERIAL For use only to lock dialysis catheter after dialysis Given 09/12/2023 9:43 AM EST 2.5 mL sodium citrate 4% (Anticoagulant Sodium Citrate) inj 2.5 mL 2.5 mL, Dialysis catheter, ONCE, On Mon09/12/23 at 0700, For 1 dose, VENOUS For use only to lock dialysis catheter after dialysis Given 09/12/2023 9:43 AM EST 2.5 mL documented in this encounter Advance Directives Latest [...] Advance Directives occurred with: Patient Care Teams Boiler Water Tester Relationship Specialty Start Date End Date Tomer Garner MD [address] [place] [address] PCP - General 09/19/02 documented as of this encounter
--- OUTSIDE RECORDS SUMMARY | 2024-03-17 14:23 | External Medical Summary | Summary of Care ---
Author Name Unknown Organization [facility] Address [address] [place] [address] Phone [phone] Care Team Providers Care Cotton Bag Clipper Name Role Phone Tomer Garner MD Primary Care Provider Reason for Visit * Reason Onset Date Comments Medication Refill 11/27/2023 Encounter Details Date Type Department Care Team (Late st Contact Info) Description 11/27/2023 Refill [facility] [place] [address] [place] [address] Akosua Lopez MD [address] [place] [address] Hypokalemia* Allergies No known active allergiesdocumented as of [...] (Oral) 1981,04/11 Pneumococcal Conjugate Vacci ne, 20-valent ([id number]) 11/17/2022 Seasonal Influenza, PF, 6 M & [...] Telephone Care Coordination and Integration [address] [place] [address] Tamica Swann, Community Health Construction Pit Worker [address] [place], [place] 12/04/2023 1:00 PM EDT Office Visit Home Dialysis [address] [phone] [facility], Peritoneal Dialysis [address] [place] [address] 12/11/2023 8:00 AM EDT Treatment Home Dialysis [address] [phone] Nurse, Lance Bee [address] 12/11/2023 1:00 PM EDT Nurse Only Home Dialysis [address] [phone] Nurse, Lancebaltazar Bee [address] [place] [address] 12/26/2023 1:00 PM EDT Office Visit Home Dialysis [address] [place] [address] [facility], Peritoneal Dialysis [address] [place] [address] 01/10/2024 8:00 AM EDT Treatment Home Dialysis [address] [place] [address] Nurse, Lance [address] [facility] [address] [place] [address] 01/10/2024 1:00 PM EDT Nurse Only Home Dialysis [address] [place], [place] [address] Nurse, Lance [address] [facility] [address] [place], [place] [address] 02/08/2024 1:00 PM EDT Office Visit Home Dialysis [address] [place] [address] [facility], Peritoneal Dialysis [address] [place] [address] 02/10/2024 8:00 AM EDT Treatment Home Dialysis [address] [place], [place] [address] Nurse, Lance [address] [place] [address] 02/12/2024 1:00 PM EDT Nurse Only Home Dialysis [address] [place], [place] [address] Nurse, Lance [address] [facility] [address] [place] [address] 03/05/2024 1:00 PM EDT Office Visit Home Dialysis [address] [place] [address] [facility], Peritoneal Dialysis [address] [place] [address] 03/11/2024 8:00 AM EDT Treatment Home Dialysis [address] [place] [address] Nurse, Lance [address] [place] [address] 03/11/2024 1:00 PM EDT Nurse Only Home Dialysis [address] [place] [address] Nurse, [address] [facility] [address] [place], [place] [address] 03/19/2024 1:00 PM EDT Office Visit Home Dialysis [address] [place], [place] [address] [facility], Peritoneal Dialysis [address] [place] [address] 04/11/2024 8:00 AM EDT Treatment Home Dialysis [address] [place], [place] [phone] Nurse, Lance [address] [facility] [address] [place], [place] [address] 04/11/2024 1:00 PM EDT Nurse Only Home Dialysis [address] [place], [place] [phone] Nurse, Lance [address] [facility] [address] [place] [address] 04/29/2024 1:00 PM EDT Office Visit Home Dialysis [address] [place], [place] [address] [facility], Peritoneal Dialysis [address] [facility] [place] [address] 05/12/2024 8:00 AM EDT Treatment Home Dialysis [address] [place], [place] [phone] Nurse, Lance [address] [facility] [address] [place] [address] 05/14/2024 1:00 PM EDT Nurse Only Home Dialysis [address] [place], [place] [phone] Nurse, Lance [address] [facility] [address] [place], [place] [address] 06/07/2024 1:00 PM EDT Office Visit Home Dialysis [address] [place], [place] [address] [facility], Peritoneal Dialysis [address] [place] [address] 06/11/2024 8:00 AM EDT Treatment Home Dialysis [address] [place], [place] [address] Nurse, [employer] [address] [place], [place] [address] 06/11/2024 1:00 PM EDT Nurse Only Home Dialysis [address] [place], [place] [phone] Nurse, Lance [employer] [address] [place], [place] [address] 06/25/2024 1:00 PM EDT Office Visit Home Dialysis [address] [place], [place] [address] [facility], Peritoneal Dialysis [address] [facility] [place] [address] 07/12/2024 8:00 AM EDT Treatment Home Dialysis [address] [place], [place] [address] Nurse, Lance [employer] [address] [place], [place] [address] 07/12/2024 1:00 PM EDT Nurse Only Home Dialysis [address] [place], [place] [address] Nurse, [employer] [address] [place], [place] [address] 07/22/2024 1:00 PM EST Office Visit Home Dialysis [address] [place], [place] [address] [facility], Peritoneal Dialysis [address] [facility] [place] [address] 08/11/2024 8:00 AM EST Treatment Home Dialysis [address] [phone] Nurse, Lance [employer] [facility] [address] [place] [address] 08/12/2024 1:00 PM EST Nurse Only Home Dialysis [address] [phone] Nurse, Lance [employer] [facility] [address] [place] [address] 08/20/2024 1:00 PM EST Office Visit Home Dialysis [address] [phone] [facility], Peritoneal Dialysis [address] [facility] [place] [id number] Scheduled Orders Name Type Priority Associated Diagnoses Orde r Schedule BASIC METABOLIC PANEL Lab STAT Hypokalemia Expected: 11/27/2023, Expires: 11/26/2024 Health Maintenance Due Date Last Done Comments COVID-19 Vaccine (3 - Moderna risk series) 12/21/2020 11/23/2020, 10/18/2020 Hepatitis B (3 of 4 - Risk Dialysis Recombivax 3-dose series) 10/05/2023 05/02/2023, 04/04/2023 Depression Screening 11/06/2024 11/06/2023 Lipid Panel 05/18/2026 05/18/2021, 1209/2009, 11/11/2004, Additional history exists Diabetes Screening 11/22/2026 [...] as of this encounter Visit Diagnoses Diagnosis Hypokalemia- Primary Hypopotassemia documented in this encounter Advance Directives Latest [...] Advance Directives occurred with: Patient Care Teams Cotton Bag Clipper Relationship Specialty Start Date End Date Tomer Garner MD [address] [place] [address] PCP - General 09/19/02 documented as of this encounter
--- OUTSIDE RECORDS SUMMARY | 2024-03-17 14:23 | External Medical Summary | Summary of Care ---
Author Name Unknown Organization [facility] Address [address] [place] [address] Phone [phone] Care Team Providers Care Human Resources Technician Name Role Phone Tomer Garner MD Primary Care Provider [phone] Reason for Visit * Reason Comments Outpatient Testing Encounter Details Date Type Department Care Team ([facility] st Contact Info) Description 11/27/2023 3:30 PM EDT Laboratory Laboratory, [facility] [address] [place] [address] [facility] Lab [address] [place] [address] Hypokalemia Allergies No known active allergiesdocumented as of [...] (Oral) 1981,04/11 Pneumococcal Conjugate Vacci ne, 20-valent ([id number]) 11/17/2022 Seasonal Influenza, PF, 6 M & [...] [address] [phone] [facility] [place], Peritoneal Dialysis [address] [place] [address] 12/11/2023 8:00 AM EDT Treatment Home Dialysis [address] [place] [address] Nurse, [employer] [facility] [address] [place] [address] [address] 12/11/2023 1:00 PM EDT Nurse Only Home Dialysis [address] [place], [place] [address] Nurse, [employer] [address] [place], [place] [address] 12/26/2023 1:00 PM EDT Office Visit Home Dialysis [address] [place] [address] [address] [facility] [place], Peritoneal Dialysis [address] [place] [facility] [place] [address] 01/10/2024 8:00 AM EDT Treatment Home Dialysis [address] [place] [address] [address] Nurse, [address] [facility] [address] [place] [address] 01/10/2024 1:00 PM EDT Nurse Only Home Dialysis [address], [place] [address] Nurse, Lance [address] [facility] [address] [place] [address] 02/08/2024 1:00 PM EDT Office Visit Home Dialysis [address] [place], [place] [address] [facility] [place], Peritoneal Dialysis [address] [place] [address] 02/10/2024 8:00 AM EDT Treatment Home Dialysis [address] [place] [address] Nurse, [address] [facility] [address] [place] [address] 02/12/2024 1:00 PM EDT Nurse Only Home Dialysis [address] [place], [place] [phone] Nurse, Lance [address] [facility] [address] [place], [place] [address] 03/05/2024 1:00 PM EDT Office Visit Home Dialysis [address] [place] [address] [facility] [place], Peritoneal Dialysis [address] [place] [address] 03/11/2024 8:00 AM EDT Treatment Home Dialysis [address] [place], [place] [address] Nurse, [address] [facility] [address] [place] [address] 03/11/2024 1:00 PM EDT Nurse Only Home Dialysis [address] [place] [address] Nurse, Lance [address] [facility] [address] [place] [address] 03/19/2024 1:00 PM EDT Office Visit Home Dialysis [address] [place], [place] [address] [facility], Peritoneal Dialysis [address] [place] [address] 04/11/2024 8:00 AM EDT Treatment Home Dialysis [address] [place], [place] [address] Nurse, Lance [employer] [address] [place], [place] [address] 04/11/2024 1:00 PM EDT Nurse Only Home Dialysis [address] [place], [place] [phone] Nurse, Lance [address] [place], [place] [address] 04/29/2024 1:00 PM EDT Office Visit Home Dialysis [address] [place], [place] [address] [facility] [place] [facility], Peritoneal Dialysis [address] [place] [address] 05/12/2024 8:00 AM EDT Treatment Home Dialysis [address] [place], [place] [phone] Nurse, Lance [employer] [address] [place], [place] [address] 05/14/2024 1:00 PM EDT Nurse Only Home Dialysis [address] [place], [place] [address] Nurse, Lance [employer] [address] [place] [address] 06/07/2024 1:00 PM EDT Office Visit Home Dialysis [address] [place], [place] [address] [facility] [place], Peritoneal Dialysis [address] [place] [address] 06/11/2024 8:00 AM EDT Treatment Home Dialysis [address] [place], [place] [address] Nurse, Lance Lopez [facility] [address] [place], [place] [address] 06/11/2024 1:00 PM EDT Nurse Only Home Dialysis [address] [place], [place] [phone] Nurse, Lance Lopez [facility] [address] [place], [place] [address] 06/25/2024 1:00 PM EDT Office Visit Home Dialysis [address] [place], [place] [address] [facility] [place] [facility], Peritoneal Dialysis [address] [place] [address] 07/12/2024 8:00 AM EDT Treatment Home Dialysis [address] [place], [place] [phone] Nurse, Lance Lopez [address] [place], [place] [address] 07/12/2024 1:00 PM EDT Nurse Only Home Dialysis [address] [place], [place] [address] Nurse, Lance Lopez [facility] [address] [place], [place] [address] 07/22/2024 1:00 PM EST Office Visit Home Dialysis [address] [place], [place] [address] [facility] [place] [facility], Peritoneal Dialysis [address] [place] [address] 08/11/2024 8:00 AM EST Treatment Home Dialysis [address] [place], [place] [phone] Nurse, Lance Lopez [address] [place], [place] [address] 08/12/2024 1:00 PM EST Nurse Only Home Dialysis [address] [place] [address] Nurse, Lance Lopez [address] [place] [address] 08/20/2024 1:00 PM EST Office Visit Home Dialysis [address] [place] [address] [address] [facility], Peritoneal Dialysis [address] [facility] [place] [address] Pending Results Name Type Priority Associated Diagnoses Date /Time BASIC METABOLIC PANEL Lab STAT Hypokalemia 11/27/2023 3:28 PM EDT Health Maintenance Due Date Last Done Comments COVID-19 Vaccine (3 - Moderna risk series) 12/21/2020 11/23/2020, 10/18/2020 Hepatitis B (3 of 4 - Risk Dialysis Recombivax 3-dose series) 10/05/2023 05/02/2023, 04/04/2023 Depression Screening 11/06/2024 11/06/2023 Lipid Panel 05/18/2026 05/18/2021, 12/09/2009, 11/11/2004, Additional history exists Diabetes Screening 11/22/2026 [...] as of this encounter Visit Diagnoses Diagnosis Hypokalemia Hypopotassemia documented in this encounter Advance Directives [...] Advance Directives occurred with: Patient Care Teams Human Resources Technician Relationship Specialty Start Date End Date Tomer Garner MD [address] [place] [address] PCP - General 09/19/02 documented as of this encounter
--- OUTSIDE RECORDS SUMMARY | 2024-03-17 14:23 | External Medical Summary ---
Author Name Unknown Address Unknown Organization K01:[facility] [place] [address] [facility] [address] Laboratory Report Ordering Provider Test Date Status MARI BOB 11/23/2023 14:16:36 Final Observation Date Value Abnormality Reference (Units ) Status BUN, Body Fluid 11/23/2023 14:16:36 41 (mg/ dL) Final The reference interval(s) an d other method performance specifications may not be available for this body fluid. Comparison of this result with the concentration in the blood, serum, or plasma is recommended. The test result must be integrated into the clinical context for interpretation.

Please refer to test catalog (https://[email or web address].com/catalog/body_fluids.cfm) for additional interpretive information.

This test was developed and its performance characteristics determined by [employer]. It has not been cleared or approved by the US Food and Drug Administration. Performing Location [facility] [place] [address] [facility] [address]
--- OUTSIDE RECORDS SUMMARY | 2024-03-17 14:23 | External Medical Summary | Summary of Care ---
Author Name Unknown Organization [facility] Address [address] [place] [address] Phone [phone] Care Team Providers Care Senior Caregiver Name Role Phone Tomer Garner MD Primary Care Provider [phone] Reason for Visit * Reason Onset Date Comments Medication Update 11/29/2023 Script to rest art Sensipar Encounter Details Date Type Department Care Team ([facility] st Contact Info) Description 11/29/2023 Telephone Hemodialysis Nathaniel [address] [place] [address] [place] [address] Cathy Wang, RDN [address] [place] [address] Medication Update (Script to restart Sensi... Allergies No known active allergiesdocumented as of this encounter (statuses as of 11/29/2023) Medications Medication Sig Dispensed Refills Start Date [...] the morning. 30 Tablet 11 11/21/2023 Active Cinacalcet HCl 30 MG Oral Tablet (Sensipar) Take 1 Tablet by mouth in the morning. 90 Tablet 3 11/29/2023 Active documented as of this encounter (statuses as of 11/29/2023) Active Problems Problem Noted Date Diagnosed Date [...] as of this encounter (statuses as of 11/29/2023) Resolved Problems Problem Noted Date Diagnosed Date [...] as of this encounter (statuses as of 11/29/2023) Immunizations Name Administration Dates Next Due COVID-19 mRNA, LNP-s, No Pre serve, 2-Dose Series (Moderna) 11/23/2020,10/18/2020 DTP Vaccine 1981,1981,1981 HEP B - Hepatitis B (Dialysis/Immumocomp Pt) 05/02/2023,04/04/2023 MMR - Measles/Mumps/Rubella Vaccine 05/11/1982 OPV - Polio Virus Vaccine (Oral) 1981,04/11 Pneumococcal Conjugate Vacci ne, 20-valent ([id number]) 11/17/2022 Seasonal Influenza, PF, 6 M & [...] 3:09 PM EDT Sexual Orientation Straight 04/10/2023 3 :09 PM EDT Job Start Date Occupation Industry [...] Miscellaneous Notes * Telephone Encounter - Cathy Wang RDN - 11/29/2023 12:42 PM EDT Script to restart Sensipar faxed to [facility]. Spoke with sales development representative from the pharmacy, who stated it take 24 hours for the script to be put into their system, and 72 hours for it to be ready to ship. Noted that they should be contacting him on Monday about shipping it. Confirmed pt's phone number with pharmacy. Contact patient to make him aware, and he verbalized understanding. He reports having 6 pills left from his previous prescription. Cathy Wang RDN, [facility], LDN Renal Dietitian [facility] [phone] documented in this encounter Plan of Treatment Upcoming Encounters Date Type Department Care Team (Late st Contact Info) Description 11/29/2023 Plan of Care Documentation Home Dialysis [address] [phone] 12/04/2023 1:00 PM EDT Office Visit Home Dialysis Hamzah Lucas [address] [place] [address] Mdc, Peritoneal Dialysis [address] [place] [address] 12/11/2023 8:00 AM EDT Treatment Home Dialysis Hamzah [address] [place] [address] [facility]ance [facility] [address] [place] [address] 12/11/2023 1:00 PM EDT Nurse Only Home Dialysis Ham[address] [place] [address] Nurse, Lance [address] [facility] [address], [place] [address] 12/26/2023 1:00 PM EDT Office Visit Home Dialysis Hamzah [address] [place], [place] [address] M[facility], Peritoneal Dialysis [address] [place] [address] 01/10/2024 8:00 AM EDT Treatment Home Dialysis Hamzah Lucas [address] [place], [place] [phone] Nurse, Lance [address] [facility] [address] [place], [place] [address] 01/10/2024 1:00 PM EDT Nurse Only Home Dialysis Hamzah Lucas [address] [place], [place] [phone] Nurse, Lance [address] [facility] [address] [place] [address] 02/08/2024 1:00 PM EDT Office Visit Home Dialysis Hamzah Lucas [address] [place], [place] [address] [facility] Per[place] Dialysis [address] [place] [address] 02/10/2024 8:00 AM EDT Treatment Home Dialysis Hamzah Lucas [address] [place], [place] [address] Nurse, Lance [address] [facility] [address] [place] [address] 02/12/2024 1:00 PM EDT Nurse Only Home Dialysis Hamzah Lucas [address] [place], [place] [address] Nurse, Lance [address] [facility] [address], [place] [address] 03/05/2024 1:00 PM EDT Office Visit Home Dialysis Hamzah Lucas [address] [place] [address] Mdc, Peritoneal Dialysis [address] [place] [address] 03/11/2024 8:00 AM EDT Treatment Home Dialysis Hamzah Lucas [address] [place], [place] [phone] Nurse, Lance [employer] [facility] [address], [place] [address] 03/11/2024 1:00 PM EDT Nurse Only Home Dialysis Hamzah Lucas [address] [place], [place] [phone] Nurse, Lance [address] [facility] [address], [place] [address] 03/19/2024 1:00 PM EDT Office Visit Home Dialysis Hamzah Lucas [address], [place] [address] [facility] Peritoneal Dialysis [address] [place] [address] 04/11/2024 8:00 AM EDT Treatment Home Dialysis Hamzah Lucas [address], [place] [address] Nurse, Lance [employer] [place] [address], [place] [address] 04/11/2024 1:00 PM EDT Nurse Only Home Dialysis Hamzah Lucas [address] [place], [place] [address] Nurse, Lance [employer] [place] [address], [place] [address] 04/29/2024 1:00 PM EDT Office Visit Home Dialysis Hamzah Lucas [address], [place] [address] Mdc, Peritoneal Dialysis [address] [facility] [place], [place] [address] 05/12/2024 8:00 AM EDT Treatment Home Dialysis Hamzah Lucas [address] [place], [place] [phone] Nurse, Lance [address] [facility] [address], [place] [address] 05/14/2024 1:00 PM EDT Nurse Only Home Dialysis Hamzah Lucas Dr [address] [phone] Nurse, Lance [address] [facility] [address], [place] 06/07/2024 1:00 PM EDT Office Visit Home Dialysis Hamzah Lucas Dr [address], [place] [phone] [facility] Peritoneal Dialysis [address] [place] [address] 06/11/2024 8:00 AM EDT Treatment Home Dialysis Hamzah Lucas Dr [address] [place], [place] [phone] Nurse, Lance [address] [facility] [address], [place] [address] 06/11/2024 1:00 PM EDT Nurse Only Home Dialysis Hamzah Lucas [address] [place], [place] [address] Nurse, Lance Lopez [facility] [address], [place] [address] 06/25/2024 1:00 PM EDT Office Visit Home Dialysis Hamzah Lucas Dr [address], [place] [address] [facility] Peritoneal Dialysis [address] [place] [address] 07/12/2024 8:00 AM EDT Treatment Home Dialysis Hamzah Lucas Dr [address], [place] [phone] Nurse, Lance [address] [facility] [address] [place], [place] [address] 07/12/2024 1:00 PM EDT Nurse Only Home Dialysis Hamzah Lucas [address] [place], [place] [phone] Nurse, Lance [employer] [facility] [address] [phone] 07/22/2024 1:00 PM EST Office Visit Home Dialysis Hamzah Lucas [address] [place] [address] [facility] Peritoneal Dialysis [address] [place], [place] [id number] 08/11/2024 8:00 AM EST Treatment Home Dialysis Hamzah Lucas [address] [place], [place] [phone] Nurse, [employer] [facility] [address] [place] [address] 08/12/2024 1:00 PM EST Nurse Only Home Dialysis Hamzah Lucas [address] [place], [place] [address] Nurse, [employer] [place] [address], [place] [address] 08/20/2024 1:00 PM EST Office Visit Home Dialysis Hamzah Lucas Dr [address], [place] [address] [facility] Peritoneal Dialysis [address] [place], [place] [address] Health Maintenance Due Date Last Done Comments [...] Advance Directives occurred with: Patient Care Teams Senior Caregiver Relationship Specialty Start Date End Date Tomer Garner MD [address] [place] [address] PCP - General 09/19/02 documented as of this encounter
--- OUTSIDE RECORDS SUMMARY | 2024-03-17 14:23 | External Medical Summary ---
Author Name Unknown Address Unknown Organization K01:LABORATORY [facility] - [address] [place] [address] Laboratory Report Ordering Provider Test Date Status MARI BOB 11/23/2023 13:37:10 Final Observation Date Value Abnormality Reference (Units ) Status Hemoglobin 11/23/2023 13:37:10 8.8 Below low normal 14 .0-16.8 (g/dL) Final Performing Location LABORATORY [facility] - [address] [place] [address]
--- OUTSIDE RECORDS SUMMARY | 2024-03-17 14:23 | External Medical Summary | Summary of Care ---
Author Name Unknown Organization [facility] Address [address] [place] [address] Phone [phone] Care Team Providers Care Cardiovascular Radiologic Technologist Name Role Phone Tomer Garner MD Primary Care Provider Encounter Details Date Type Department Care Team (Late st Contact Info) Description 11/27/2023 1:15 PM EDT Scheduled Telephone Care Coordination and Integration [address] [place], [place] [phone] Tamica Swann, [facility] [employer] Body Service Mechanic [address] [place], [place] [phone] Allergies No known active allergiesdocumented as of [...] (Oral) 1981,04/11 Pneumococcal Conjugate Vacci ne, 20-valent ([id number]) 11/17/2022 Seasonal Influenza, PF, 6 M & [...] Progress Notes * Tamica Swann [facility] - 11/27/2023 11:50 AM EDT Call to pt for Yakelin [phone] LMOM [facility] documented in this encounter Plan of Treatment Upcoming Encounters Date Type Department Care Team (Late st Contact Info) Description 12/04/2023 1:00 PM EDT Office Visit Home Dialysis [place] [address] [facility], Peritoneal Dialysis [address] [place] [address] 12/11/2023 8:00 AM EDT Treatment Home Dialysis Clau [address] [place] [address] Nurse, [employer] [facility] [address] [place] [address] 12/11/2023 1:00 PM EDT Nurse Only Home Dialysis Clau [address] [place] [address] Nurse, [employer] [facility] [address] [place] [address] 12/26/2023 1:00 PM EDT Office Visit Home Dialysis Clua Lucas [address] [place] [address] [address] [facility], Peritoneal Dialysis [address] [place] [address] 01/10/2024 8:00 AM EDT Treatment Home Dialysis Clau [address] [place] [address] Nurse, [address] [facility] [address], [place] [address] 01/10/2024 1:00 PM EDT Nurse Only Home Dialysis Clau [address] [place], [place] [address] Nurse, [address] [facility] [address], [place] [address] 02/08/2024 1:00 PM EDT Office Visit Home Dialysis Clau [address] [place] [address] [facility], Peritoneal Dialysis [address] [place] [address] 02/10/2024 8:00 AM EDT Treatment Home Dialysis Clau [address] [place], [place] [address] Nurse, [address] [facility] [address] [place] [address] 02/12/2024 1:00 PM EDT Nurse Only Home Dialysis Clau [address] [place], [place] [address] Nurse, [address] [facility] [address] [place] [address] 03/05/2024 1:00 PM EDT Office Visit Home Dialysis Clau [address] [place] [address] [facility], Peritoneal Dialysis [address] [place] [address] 03/11/2024 8:00 AM EDT Treatment Home Dialysis Clau [address] [place] [address] Nurse, [address] [facility] [address] [place] [address] 03/11/2024 1:00 PM EDT Nurse Only Home Dialysis Clau [address] [place] [address] Nurse, [address] [facility] [address] [place], [place] [address] 03/19/2024 1:00 PM EDT Office Visit Home Dialysis Clau [address] [place], [place] [address] [facility], Peritoneal Dialysis [address] [place] [address] 04/11/2024 8:00 AM EDT Treatment Home Dialysis Clau [address] [place], [place] [phone] Nurse, Lance [address] [facility] [address] [place], [place] [address] 04/11/2024 1:00 PM EDT Nurse Only Home Dialysis Clau [address] [place], [place] [phone] Nurse, Lance [address] [facility] [address], [place] [address] 04/29/2024 1:00 PM EDT Office Visit Home Dialysis Clau [address] [place], [place] [address] [facility], Peritoneal Dialysis [address] [place] [address] 05/12/2024 8:00 AM EDT Treatment Home Dialysis Clau [address], [place] [phone] Nurse, Lance [address] [facility] [address] [place], [place] [address] 05/14/2024 1:00 PM EDT Nurse Only Home Dialysis Clau [address] [place], [place] [phone] Nurse, Lance [address] [facility] [address] [place], [place] [address] 06/07/2024 1:00 PM EDT Office Visit Home Dialysis Clau [address] [place], [place] [address] [facility], Peritoneal Dialysis [address] [place] [address] 06/11/2024 8:00 AM EDT Treatment Home Dialysis Clau [address] [place], [place] [address] Nurse, [employer] [facility] [address], [place] [address] 06/11/2024 1:00 PM EDT Nurse Only Home Dialysis Clau [address] [place], [place] [phone] Nurse, Lance [employer] [facility] [address] [place], [place] [address] 06/25/2024 1:00 PM EDT Office Visit Home Dialysis Clau [address] [place], [place] [address] [facility], Peritoneal Dialysis [address] [place] [address] 07/12/2024 8:00 AM EDT Treatment Home Dialysis Clau [address] [place], [place] [address] Nurse, [place] [facility] [address], [place] [address] 07/12/2024 1:00 PM EDT Nurse Only Home Dialysis Clau [address] [place], [place] [address] Nurse, [place] [facility] [address] [place] [address] 07/22/2024 1:00 PM EST Office Visit Home Dialysis Clau [address] [place] [address] [facility], Peritoneal Dialysis [address] [place] [address] 08/11/2024 8:00 AM EST Treatment Home Dialysis Clau [address] [place] [phone] Nurse, Lance [employer] [facility] [address] [place] [address] 08/12/2024 1:00 PM EST Nurse Only Home Dialysis Clau [address] [place] [phone] Nurse, [address] [facility] [address] [place] [address] 08/20/2024 1:00 PM EST Office Visit Home Dialysis Clau [address] [phone] [facility], Peritoneal Dialysis [address] [facility] [place] [address] Health Maintenance Due Date Last Done Comments [...] Advance Directives occurred with: Patient Care Teams Cardiovascular Radiologic Technologist Relationship Specialty Start Date End Date Tomer Garner MD [address] [place] [address] PCP - General 09/19/02 documented as of this encounter
--- OUTSIDE RECORDS SUMMARY | 2024-03-17 14:23 | External Medical Summary ---
Author Name Unknown Address Unknown Organization K01:[facility] [place] [address] [place] [address] Laboratory Report Ordering Provider Test Date Status MARI BOB 11/27/2023 15:28:25 Final Observation Date Value Abnormality Reference (Units ) Status BUN 11/27/2023 15:28:25 54 Above high normal 6-20 (mg/dL) Final Creatinine 11/27/2023 15:28:25 18.6 Above high normal 0.6-1.2 (mg/dL) Final Glomerular filtration rate/1.73 sq M.predicted [Volume Rate/Area] in Serum, Plasma or Blood by Creatinine-based formula (CKD-EPI) 11/27/2023 15:28:25 3 Below low normal >=60 (mL/min) Final eGFR is calculated based on the CKD-EPI 2020 equation SODIUM 11/27/2023 15:28:25 138 135-146 (m mol/L) Final Potassium 11/27/2023 15:28:25 3.4 Below low normal 3.5 -5.1 (mmol/L) Final Cl 11/27/2023 15:28:25 92 Below low normal 98- 107 (mmol/L) Final CO2 11/27/2023 15:28:25 22 22-32 (mmo l/L) Final Anion gap 11/27/2023 15:28:25 24 Above high normal 7- 15 (mmol/L) Final Glucose 11/27/2023 15:28:25 104 70-120 (mg /dL) Final Calcium 11/27/2023 15:28:25 8.1 Below low normal 8.4 -10.2 (mg/dL) Final Performing Location LABORATORY [facility] - [address] [place] [address]
--- OUTSIDE RECORDS SUMMARY | 2024-03-17 14:23 | External Medical Summary | Summary of Care ---
Author Name Unknown Organization [facility] Address [address] [place] [address] Phone [phone] Care Team Providers Care Surgical Garment Fitter Name Role Phone Tomer Garner MD Primary Care Provider Reason for Visit * Reason Onset Date Comments Potassium Problem 11/28/2023 Low potassium Encounter Details Date Type Department Care Team ([facility] st Contact Info) Description 11/28/2023 Telephone Home Dialysis Lance [address] [place] [address] [place] [address] Cathy Wang, RDN [address] [place] [address] Potassium Problem (Low potassium) Allergies No known active allergiesdocumented as of this encounter (statuses as of 11/28/2023) Medications Medication Sig Dispensed Refills Start Date [...] as of this encounter (statuses as of 11/28/2023) Active Problems Problem Noted Date Diagnosed Date [...] as of this encounter (statuses as of 11/28/2023) Resolved Problems Problem Noted Date Diagnosed Date [...] as of this encounter (statuses as of 11/28/2023) Immunizations Name Administration Dates Next Due COVID-19 mRNA, LNP-s, No Pre serve, 2-Dose Series (Moderna) 11/23/2020,10/18/2020 DTP Vaccine 1981,1981,1981 HEP B - Hepatitis B (Dialysis/Immumocomp Pt) 05/02/2023,04/04/2023 MMR - Measles/Mumps/Rubella Vaccine 05/11/1982 OPV - Polio Virus Vaccine (Oral) 1981,04/11 Pneumococcal Conjugate Vacci ne, 20-valent ([id number]) 11/17/2022 Seasonal Influenza, PF, 6 M & [...] Telephone Encounter - Cathy Wang RDN - 11/28/2023 8:59 PM EDT Spoke with patient around 4:45 PM today. Reviewed potassium is improved but still low. Latest Reference Range & Units 11/23/23 13:37 11/27/23 15:28 Potassium 3.5 - 5.1 mmol/L 3.1 (L) 3.4 (L) (L): Data is abnormally low Reviewed high potassium food selections. Encouraged him to make 2 selections daily. He possesses contact information for this dietitian for future reference. Cathy Wang RDN, [facility], [facility] Renal Dietitian [facility] [phone] documented in this encounter Plan of Treatment Upcoming Encounters Date Type Department Care Team (Late st Contact Info) Description 12/04/2023 1:00 PM EDT Office Visit Home Dialysis Clau [address] [place] [phone] [facility], Peritoneal Dialysis [address] [place] [address] 12/11/2023 8:00 AM EDT Treatment Home Dialysis Clau [address] [place] [phone] NurseLance [address] [place] [address] 12/11/2023 1:00 PM EDT Nurse Only Home Dialysis Clau [address] [place] [phone] NurseLance [facility] [address] [place] [address] 12/26/2023 1:00 PM EDT Office Visit Home Dialysis Clau [address] [place], [place] [address] [facility], Peritoneal Dialysis [address] [place] [address] 01/10/2024 8:00 AM EDT Treatment Home Dialysis Clau [address] [place], [place] [address] Nurse, [address] [facility] [address] [place] [address] 01/10/2024 1:00 PM EDT Nurse Only Home Dialysis Clau [address] [place], [place] [address] Nurse, Lance [address] [facility] [address], [place] [address] 02/08/2024 1:00 PM EDT Office Visit Home Dialysis Clau [address], [place] [address] [facility], Peritoneal Dialysis [address] [place] [address] 02/10/2024 8:00 AM EDT Treatment Home Dialysis Clau [address], [place] [phone] Nurse, Lance [address] [facility] [address] [place] [address] 02/12/2024 1:00 PM EDT Nurse Only Home Dialysis Clau [address] [place], [place] [phone] Nurse, Lance [address] [facility] [address] [place], [place] [address] 03/05/2024 1:00 PM EDT Office Visit Home Dialysis Clau Lucas [address] [place], [place] [address] [facility], Peritoneal Dialysis [address] [place] [facility] [place] [address] 03/11/2024 8:00 AM EDT Treatment Home Dialysis Clau [address] [place], [place] [address] Nurse, Lance [employer] [facility] [address] [place], [place] [address] 03/11/2024 1:00 PM EDT Nurse Only Home Dialysis Clau [address] [place], [place] [address] Nurse, Lance [employer] [address], [place] [address] 03/19/2024 1:00 PM EDT Office Visit Home Dialysis Clau [address], [place] [address] [facility], Peritoneal Dialysis [address] [place] [address] 04/11/2024 8:00 AM EDT Treatment Home Dialysis Clau [address] [place], [place] [address] Nurse, [employer] [facility] [address] [place], [place] [address] 04/11/2024 1:00 PM EDT Nurse Only Home Dialysis Clau [address] [place], [place] [address] Nurse, Lance [employer] [place] [address] [place] [address] 04/29/2024 1:00 PM EDT Office Visit Home Dialysis Clau [address] [place], [place] [address] [facility], Peritoneal Dialysis [address] [place] [address] 05/12/2024 8:00 AM EDT Treatment Home Dialysis Clau [address] [place] [address] Nurse, [address] [facility] [address] [place] [address] 05/14/2024 1:00 PM EDT Nurse Only Home Dialysis Clau [address] [place], [place] [address] Nurse, [address] [facility] [address] [place] [address] 06/07/2024 1:00 PM EDT Office Visit Home Dialysis Clau [address] [place] [address] [facility], Peritoneal Dialysis [address] [place] [address] 06/11/2024 8:00 AM EDT Treatment Home Dialysis Clau [address] [place], [place] [phone] Nurse, Lance [address] [facility] [address] [place] [address] 06/11/2024 1:00 PM EDT Nurse Only Home Dialysis Clau Lucas Dr [place], [place] [phone] Nurse, Lance [address] [facility] [address] [place] [address] 06/25/2024 1:00 PM EDT Office Visit Home Dialysis Clau [address] [place] [address] [facility], Peritoneal Dialysis [address] [place] [address] 07/12/2024 8:00 AM EDT Treatment Home Dialysis Clau [address] [place], [place] [address] Nurse, [address] [facility] [address] [place] [address] 07/12/2024 1:00 PM EDT Nurse Only Home Dialysis Clau [address] [place] [address] Nurse, [employer] [facility], [place] [address] 07/22/2024 1:00 PM EST Office Visit Home Dialysis Clau [address], [place] [phone] [facility], Peritoneal Dialysis [address] [facility] [place] [address] 08/11/2024 8:00 AM EST Treatment Home Dialysis Clau [address], [place] [phone] Nurse, [employer] [address], [place] [address] 08/12/2024 1:00 PM EST Nurse Only Home Dialysis Clau [address] [place], [place] [address] Nurse, [employer] [facility] [address], [place] [address] 08/20/2024 1:00 PM EST Office Visit Home Dialysis Clau [address], [place] [address] [facility], Peritoneal Dialysis [address] [facility], [place] [id number] Health Maintenance Due Date Last Done Comments [...] Advance Directives occurred with: Patient Care Teams Surgical Garment Fitter Relationship Specialty Start Date End Date Tomer Garner MD [address] [place] [address] PCP - General 09/19/02 documented as of this encounter
--- OUTSIDE RECORDS SUMMARY | 2024-03-17 14:23 | External Medical Summary ---
Author Name Unknown Address Unknown Organization [id number]:LABORATORY [facility] [place] - [address] [facility] [address] Laboratory Report Ordering Provider Test Date Status MARI BOB 11/23/2023 13:37:10 Final Observation Date Value Abnormality Reference (Units ) Status BUN 11/23/2023 13:37:10 59 Above high normal 6-20 (mg/dL) Final Creatinine 11/23/2023 13:37:10 18.6 Above high normal 0.6-1.2 (mg/dL) Final Glomerular filtration rate/1.73 sq M.predicted [Volume Rate/Area] in Serum, Plasma or Blood by Creatinine-based formula (CKD-EPI) 11/23/2023 13:37:10 3 Below low normal >=60 (mL/min) Final eGFR is calculated based on the CKD-EPI 2020 equation SODIUM 11/23/2023 13:37:10 137 135-146 (m mol/L) Final Potassium 11/23/2023 13:37:10 3.1 Below low normal 3.5 -5.1 (mmol/L) Final Cl 11/23/2023 13:37:10 91 Below low normal 98- 107 (mmol/L) Final CO2 11/23/2023 13:37:10 20 Below low normal 22- 32 (mmol/L) Final Anion gap 11/23/2023 13:37:10 26 Above high normal 7- 15 (mmol/L) Final Glucose 11/23/2023 13:37:10 170 Above high normal 70 -120 (mg/dL) Final Calcium 11/23/2023 13:37:10 8.0 Below low normal 8.4 -10.2 (mg/dL) Final Albumin 11/23/2023 13:37:10 4.2 3.8-5.0 (g /dL) Final Phosphate 11/23/2023 13:37:10 8.8 Above high normal 2. 5-4.8 (mg/dL) Final Performing Location LABORATORY C - [address] [facility] [address]
--- OUTSIDE RECORDS SUMMARY | 2024-03-17 14:23 | External Medical Summary | Summary of Care ---
Author Name Unknown Organization [facility] Address [address] [place] [address] Phone [phone] Care Team Providers Care Garbage Worker Name Role Phone Tomer Garner MD Primary Care Provider Encounter Details Date Type Department Care Team (Late st Contact Info) Description 11/27/2023 1:15 PM EDT Scheduled Telephone Care Coordination and Integration [address], [place] [phone] Tamica Swann, Community Health Outer Diameter Grinder [address] [place], [place] [phone] Allergies No known active allergiesdocumented as of [...] (Oral) 1981,04/11 Pneumococcal Conjugate Vacci ne, 20-valent ([id number]) 11/17/2022 Pneumococcal Polysaccharide PPV23 (Pneumovax) 02/03/2004 Seasonal [...] Progress Notes * Tamica Swann Community Health Outer Diameter Grinder - 11/27/2023 3:49 PM EDT 2nd call to pt for yakelin call LM Tamica Swann Community Health Worker Electronically signed by Tamica Swann [facility] at 11/27/2023 3:50 PM EDT * Tamica Swann Community Health Outer Diameter Grinder - 11/27/2023 11:50 AM EDT Call to pt for Yakelin [phone] LM Tamica Swann [facility] Outer Diameter Grinder Electronically signed by Tamica Swann [facility] Outer Diameter Grinder at 11/27/2023 11:53 AM EDT documented in this encounter Plan of Treatment Upcoming Encounters Date Type Department Care Team (Late st Contact Info) Description 12/04/2023 1:00 PM EDT Office Visit Home Dialysis [address] [place] [id number] [facility], Peritoneal Dialysis [address] [facility] [place] [address] 12/11/2023 8:00 AM EDT Treatment Home Dialysis [address] [id number] NurseLance [address] [id number] 12/11/2023 1:00 PM EDT Nurse Only Home Dialysis [address] [phone] Nurse, Lance Bee [address] [place] [address] 12/26/2023 1:00 PM EDT Office Visit Home Dialysis [address] [place], [place] [address] [facility] [place] [place], Peritoneal Dialysis [address] [place] [address] 01/10/2024 8:00 AM EDT Treatment Home Dialysis [address] [place], [place] [phone] Nurse, Lance [address] [employer] [address] [place], [place] 01/10/2024 1:00 PM EDT Nurse Only Home Dialysis [address] [place], [place] [phone] Nurse, Lance M[employer] [facility] [address], [place] 02/08/2024 1:00 PM EDT Office Visit Home Dialysis [address] [place], [place] [address] [facility] [place], Peritoneal Dialysis [address] [facility] [place] [address] 02/10/2024 8:00 AM EDT Treatment Home Dialysis [address] [place], [place] [phone] Nurse, Lance [employer] [facility] [address], [place] [address] 02/12/2024 1:00 PM EDT Nurse Only Home Dialysis [address] [place], [place] [phone] Nurse, [employer] [address], [place] [address] 03/05/2024 1:00 PM EDT Office Visit Home Dialysis [address] [place], [place] [address] [facility] [place], Peritoneal Dialysis [address] [facility] [place] [place] [address] 03/11/2024 8:00 AM EDT Treatment Home Dialysis [address] [place], [place] [phone] Nurse, Lance [employer] [facility] [address], [place] [address] 03/11/2024 1:00 PM EDT Nurse Only Home Dialysis [address] [place], [place] [phone] Nurse, Lance [employer] [address], [place] [address] 03/19/2024 1:00 PM EDT Office Visit Home Dialysis [address] [place], [place] [address] [facility] [place], Peritoneal Dialysis [address] [facility], [place] [address] 04/11/2024 8:00 AM EDT Treatment Home Dialysis [address] [place], [place] [phone] Nurse, Lance [employer] [address] [place], [place] [address] 04/11/2024 1:00 PM EDT Nurse Only Home Dialysis [address] [place], [place] [phone] Nurse, Lance [employer] [address] [place] [address] 04/29/2024 1:00 PM EDT Office Visit Home Dialysis [address] [place], [place] [phone] [facility] [place], Peritoneal Dialysis [address] [facility] [place] [address] 05/12/2024 8:00 AM EDT Treatment Home Dialysis [address] [place], [place] [address] Nurse, Lance [address] [employer] [address] [place], [place] [address] 05/14/2024 1:00 PM EDT Nurse Only Home Dialysis [address] [place], [place] [address] Nurse, Lance [address] [employer] [address] [place], [place] [address] 06/07/2024 1:00 PM EDT Office Visit Home Dialysis [address] [place], [place] [address] [facility] [place], Peritoneal Dialysis [address] [place] [address] 06/11/2024 8:00 AM EDT Treatment Home Dialysis [facility] [address] [place], [place] [phone] Nurse, Lance [employer] [address], [place] [address] 06/11/2024 1:00 PM EDT Nurse Only Home Dialysis [address] [place], [place] [phone] Nurse, Lance Lopez [employer] [address], [place] [address] 06/25/2024 1:00 PM EDT Office Visit Home Dialysis [address] [place], [place] [address] [facility] [place], Peritoneal Dialysis [address] [place] [address] 07/12/2024 8:00 AM EDT Treatment Home Dialysis [facility] [place], [place] [phone] Nurse, Lance [address] [employer] [address] [place], [place] [address] 07/12/2024 1:00 PM EDT Nurse Only Home Dialysis [address], [place] [address] Nurse, Lance [employer] [address] [place] [address] 07/22/2024 1:00 PM EST Office Visit Home Dialysis [address] [place], [place] [id number] [facility] [place], Peritoneal Dialysis [address] [facility] [place] [phone] 08/11/2024 8:00 AM EST Treatment Home Dialysis [address] [place], [place] [phone] Nurse, [employer] [address] [place], [place] [address] 08/12/2024 1:00 PM EST Nurse Only Home Dialysis [address] [place], [place] [address] Nurse, [employer] [address], [place] [address] 08/20/2024 1:00 PM EST Office Visit Home Dialysis [address] [place], [place] [phone] [facility] [place], Peritoneal Dialysis [address] [facility], [place] [address] Health Maintenance Due Date Last Done Comments [...] Advance Directives occurred with: Patient Care Teams Garbage Worker Relationship Specialty Start Date End Date Tomer Garner MD [address] [place] [address] PCP - General 09/19/02 documented as of this encounter
--- OUTSIDE RECORDS SUMMARY | 2024-03-17 14:23 | External Medical Summary | Summary of Care ---
Author Name Unknown Organization [facility] Address [address] [place] [address] Phone [phone] Care Team Providers Care Rn Eligibility Name Role Phone Tomer Garner MD Primary Care Provider [phone] Reason for Visit * Reason Onset Date Comments Other 11/27/2023 Pt ordered labs Encounter Details Date Type Department Care Team (Late st Contact Info) Description [facility]/27[facility]20[facility] [place] [address] [place] [address] Sophia Hernandez RN Other (Pt ordered labs/) Allergies No known active allergiesdocumented as of [...] Bandemia 11/03/2022 Metabolic acidosis 11/03/2022 Hypokalemia 11/03/2022 ULCIES (acute kidney injury) 10/31/2022 Gouty arthropathy 08/29/2016 [...] (Oral) 1981,04/11 Pneumococcal Conjugate Vacci ne, 20-valent ([id number]) 11/17/2022 Seasonal Influenza, PF, 6 M & [...] Telephone Encounter - Sophia Hernandez RN - 11/27/2023 1:46 PM EDT PD nurse called pt and left message to please go to [facility] to obtain ordered labs and to please call [facility] back to discuss PD treatments. documented in this encounter Plan of Treatment Upcoming Encounters Date Type Department Care Team (Late st Contact Info) Description 12/04/2023 1:00 PM EDT Office Visit Home Dialysis [address], [place], [place] [phone] [facility] [place] [address], [place] [phone] 12/11/2023 8:00 AM EDT Treatment Home Dialysis [address] [place] [address] Nurse, [place] [address] 12/11/2023 1:00 PM EDT Nurse Only Home Dialysis [address] [place] [address] Nurse, [place] [address] 12/26/2023 1:00 PM EDT Office Visit Home Dialysis [address], [place], [place] [phone] [facility] [place] Dialysis [address] [place] [address] 01/10/2024 8:00 AM EDT Treatment Home Dialysis [address] [place] [address] [address] Nurse, [address] [employer] [address] [place] [address] 01/10/2024 1:00 PM EDT Nurse Only Home Dialysis [address] [place] [address] Nurse, Lance [address] [employer] [address] [place] [address] 02/08/2024 1:00 PM EDT Office Visit Home Dialysis [address] [place] [address] [facility], Peritoneal Dialysis [address] [place] [address] 02/10/2024 8:00 AM EDT Treatment Home Dialysis [address] [place], [place] [phone] Nurse, Lance [address] [employer] [address] [place] [address] 02/12/2024 1:00 PM EDT Nurse Only Home Dialysis [address] [place], [place] [phone] Nurse, Lance [address] [employer] [address] [place] [address] 03/05/2024 1:00 PM EDT Office Visit Home Dialysis [address] [place] [address] [facility] [place] [address] [place] [address] 03/11/2024 8:00 AM EDT Treatment Home Dialysis [address] [place] [address] Nurse, [address] [employer] [address] [place] [address] 03/11/2024 1:00 PM EDT Nurse Only Home Dialysis [address] [place] [address] Nurse, Lance [address] [employer] [address] [place], [place] [address] 03/19/2024 1:00 PM EDT Office Visit Home Dialysis [address] [place], [place] [address] [facility], Peritoneal Dialysis [address] [place] [facility] [place] [address] 04/11/2024 8:00 AM EDT Treatment Home Dialysis [address] [place], [place] [phone] Nurse, Lance [address] [facility] [address] [place], [place] [address] 04/11/2024 1:00 PM EDT Nurse Only Home Dialysis [address] [place], [place] [address] Nurse, Lance [address] [employer] [address] [place], [place] [address] 04/29/2024 1:00 PM EDT Office Visit Home Dialysis [address] [place], [place] [address] [facility] [place] [address] [place] [facility] [place] [address] 05/12/2024 8:00 AM EDT Treatment Home Dialysis [address] [place], [place] [address] Nurse, [address] [employer] [address] [place] [address] 05/14/2024 1:00 PM EDT Nurse Only Home Dialysis [address] [place] [address] Nurse, [address] [employer] [address] [place] [address] 06/07/2024 1:00 PM EDT Office Visit Home Dialysis [address] [place], [place] [address] [facility], Peritoneal Dialysis [address] [place] [address] 06/11/2024 8:00 AM EDT Treatment Home Dialysis [address] [place], [place] [phone] Nurse, Lance [employer] [address], [place] [address] 06/11/2024 1:00 PM EDT Nurse Only Home Dialysis [address] [place], [place] [phone] Nurse, Lance [address] [employer] [address] [place], [place] [address] 06/25/2024 1:00 PM EDT Office Visit Home Dialysis [address], [place] [address] [facility] [place] [address] [place] [facility] [place] [address] 07/12/2024 8:00 AM EDT Treatment Home Dialysis [address] [place], [place] [phone] Nurse, Lance [employer] [address], [place] [address] 07/12/2024 1:00 PM EDT Nurse Only Home Dialysis [address] [place], [place] [phone] Nurse, [employer] [place] [address] 07/22/2024 1:00 PM EST Office Visit Home Dialysis [address] [place], [place] [address] [facility], Peritoneal Dialysis [address] [facility] [address] 08/11/2024 8:00 AM EST Treatment Home Dialysis [address] [place] [address] Nurse, Lance [employer] [address], [place] [address] 08/12/2024 1:00 PM EST Nurse Only Home Dialysis [address] [place], [place] [phone] Nurse, Lance [address] [employer] [address] [place], [place] [address] 08/20/2024 1:00 PM EST Office Visit Home Dialysis [address] [place], [place] [address] [facility], Peritoneal Dialysis [address] [place] [address] Health Maintenance Due Date [...] Advance Directives occurred with: Patient Care Teams Rn Eligibility Relationship Specialty Start Date End Date Tomer Garner MD [address] [place] [address] PCP - General 09/19/02 documented as of this encounter
--- OUTSIDE RECORDS SUMMARY | 2024-03-17 14:23 | External Medical Summary | Summary of Care ---
Author Name Unknown Organization [facility] Address [address] [place] [address] Phone [phone] Care Team Providers Care Javascript Application Developer Name Role Phone Tomer Garner MD Primary Care Provider [phone] Reason for Visit * Reason Onset Date Comments Pre Cert/Prior Auth 12/01/2023 Cinacalcet 3 0 mg Encounter Details Date Type Department Care Team (Late st Contact Info) Description 12/01/2023 Telephone Nephrology, [place] [address] [place] [address] Akosua Lopez MD [address] [place] [address] Pre Cert/Prior Auth (Cinacalcet 30 mg) Allergies No known active allergiesdocumented as of this encounter (statuses as of 12/01/2023) Medications Medication Sig Dispensed Refills Start Date [...] as of this encounter (statuses as of 12/01/2023) Active Problems Problem Noted Date Diagnosed Date [...] as of this encounter (statuses as of 12/01/2023) Resolved Problems Problem Noted Date Diagnosed Date [...] as of this encounter (statuses as of 12/01/2023) Immunizations Name Administration Dates Next Due COVID-19 mRNA, LNP-s, No Pre serve, 2-Dose Series (Moderna) 11/23/2020,10/18/2020 DTP Vaccine 1981,1981,1981 HEP B - Hepatitis B (Dialysis/Immumocomp Pt) 05/02/2023,04/04/2023 MMR - Measles/Mumps/Rubella Vaccine 05/11/1982 OPV - Polio Virus Vaccine (Oral) 1981,04/11 Pneumococcal Conjugate Vacci ne, 20-valent ([id number]) 11/17/2022 Seasonal Influenza, PF, 6 M & [...] encounter Miscellaneous Notes * Telephone Encounter - Mary Barber MED ASSIST - 12/01/2023 10:01 AM EDT Pilar from [facility] called and they need a new RX for Cinacalcet 30 mg for thispt that is signed by the physician with refills, written instructions and qty . Please advise documented in this encounter Plan of Treatment Upcoming Encounters Date Type Department Care Team (Late st Contact Info) Description 11/29/2023 Plan of Care Documentation Home Dialysis [address], [place] [address] 12/04/2023 1:00 PM EDT Office Visit Home Dialysis [address], [place], [place] [phone] [facility], Peritoneal Dialysis [address] [facility] [place] [address] 12/11/2023 8:00 AM EDT Treatment Home Dialysis [address], [place] [address] Nurse, [place] [address] 12/11/2023 1:00 PM EDT Nurse Only Home Dialysis [address], [place] [address] Nurse, [place] [address] 12/26/2023 1:00 PM EDT Office Visit Home Dialysis [address] [place], [place] [address] [facility], Peritoneal Dialysis [address] [place] [address] 01/10/2024 8:00 AM EDT Treatment Home Dialysis [address] [place], [place] [address] Nurse, Lance [address] [employer] [address] [place], [place] [address] 01/10/2024 1:00 PM EDT Nurse Only Home Dialysis [address] [place], [place] [phone] Nurse, Lance [address] [facility] [address] [place] [address] 02/08/2024 1:00 PM EDT Office Visit Home Dialysis [address] [place], [place] [address] [facility] [place] Peritoneal Dialysis [address] [facility] [place] [address] 02/10/2024 8:00 AM EDT Treatment Home Dialysis [address] [place], [place] [phone] Nurse, Lance [address] [facility] [address] [place] [address] 02/12/2024 1:00 PM EDT Nurse Only Home Dialysis [address] [place], [place] [address] Nurse, [address] [employer] [address] [place] [address] 03/05/2024 1:00 PM EDT Office Visit Home Dialysis [address] [place], [place] [address] [facility] [place], Peritoneal Dialysis [address] [facility] [place] [address] 03/11/2024 8:00 AM EDT Treatment Home Dialysis [address] [place] [address] Nurse, [address] [employer] [address] [place], [place] [address] 03/11/2024 1:00 PM EDT Nurse Only Home Dialysis [address] [place], [place] [address] Nurse, Lance [address] [employer] [address] [place], [place] [address] 03/19/2024 1:00 PM EDT Office Visit Home Dialysis [address] [place] [address] [facility] [place] Peritoneal Dialysis [address] [place] [address] 04/11/2024 8:00 AM EDT Treatment Home Dialysis [address] [place], [place] [phone] Nurse, Lance [address] [facility] [address] [place] [address] 04/11/2024 1:00 PM EDT Nurse Only Home Dialysis [address] [place], [place] [address] Nurse, [address] [facility] [address] [place] [address] 04/29/2024 1:00 PM EDT Office Visit Home Dialysis [address] [place] [address] [facility] [place], Peritoneal Dialysis [address] [place] [address] 05/12/2024 8:00 AM EDT Treatment Home Dialysis [address] [place] [address] Nurse, [address] [employer] [address] [place] [address] 05/14/2024 1:00 PM EDT Nurse Only Home Dialysis [address] [place], [place] [address] Nurse, [address] [employer] [address] [place], [place] [address] 06/07/2024 1:00 PM EDT Office Visit Home Dialysis [address] [place], [place] [address] [facility] [place], Peritoneal Dialysis [address] [place] [address] 06/11/2024 8:00 AM EDT Treatment Home Dialysis [address] [place], [place] [phone] Nurse, [address] [facility] [address] [place], [place] [address] 06/11/2024 1:00 PM EDT Nurse Only Home Dialysis [address] [place], [place] [phone] Nurse, [address] [facility] [address] [place], [place] [address] 06/25/2024 1:00 PM EDT Office Visit Home Dialysis [address] [place], [place] [address] [facility] [place] Peritoneal Dialysis [address] [place] [address] 07/12/2024 8:00 AM EDT Treatment Home Dialysis [facility] [place], [place] [phone] Nurse, [address] [facility] [place], [place] [address] 07/12/2024 1:00 PM EDT Nurse Only Home Dialysis [address] [place], [place] [phone] Nurse, Lance [address] [employer] [address] [place], [place] [address] 07/22/2024 1:00 PM EST Office Visit Home Dialysis [address] [place], [place] [phone] [facility] [place] Peritoneal Dialysis [address] [facility], [place] [address] 08/11/2024 8:00 AM EST Treatment Home Dialysis [address] [place], [place] [phone] Nurse, [employer] [address] [place] [address] 08/12/2024 1:00 PM EST Nurse Only Home Dialysis [address] [place], [place] [phone] Nurse, [employer] [address] [place], [place] [address] 08/20/2024 1:00 PM EST Office Visit Home Dialysis [address] [place] [address] [facility] [place] Peritoneal Dialysis [address] [facility] [place] [id number] Health Maintenance Due Date Last Done Comments [...] Advance Directives occurred with: Patient Care Teams Javascript Application Developer Relationship Specialty Start Date End Date Tomer Garner MD [address] [facility] [place] [address] PCP - General 09/19/02 documented as of this encounter
--- OUTSIDE RECORDS SUMMARY | 2024-03-17 14:23 | External Medical Summary | Summary of Care ---
Author Name Unknown Organization [facility] Address [address] [facility] [place] [address] Phone [phone] Care Team Providers Care Cardiovascular Or Nurse Name Role Phone Tomer Garner MD Primary Care Provider [phone] Encounter Details Date Type Department Care Team (Late st Contact Info) Description 11/24/2023 Telephone Home Dialysis [address] [place] [address] Sophia Hernandez RN Allergies No known active allergiesdocumented as of this encounter (statuses as of 11/24/2023) Medications Medication Sig Dispensed Refills Start Date [...] as of this encounter (statuses as of 11/24/2023) Active Problems Problem Noted Date Diagnosed Date [...] as of this encounter (statuses as of 11/24/2023) Resolved Problems Problem Noted Date Diagnosed Date [...] as of this encounter (statuses as of 11/24/2023) Immunizations Name Administration Dates Next Due COVID-19 mRNA, LNP-s, No Pre serve, 2-Dose Series (Moderna) 11/23/2020,10/18/2020 DTP Vaccine 1981,1981,1981 HEP B - Hepatitis B (Dialysis/Immumocomp Pt) 05/02/2023,04/04/2023 MMR - Measles/Mumps/Rubella Vaccine 05/11/1982 OPV - Polio Virus Vaccine (Oral) 1981,04/11 Pneumococcal Conjugate Vacci ne, 20-valent ([id number]) 11/17/2022 Seasonal Influenza, PF, 6 M & [...] Telephone Encounter - Sophia Hernandez RN - 11/24/2023 3:38 PM EDT PD nurse spoke to pt on phone. Pt labs reviewed. Per Dr. Lopez PT instructed to follow high potassium diet this weekend due to low potassium. PT expressed verbal understanding to report to on callnephrology this weekend any concerning symptoms of abd pain, hypotension, lightheadedness, or dizziness. documented in this encounter Plan of Treatment Upcoming Encounters Date Type Department Care Team (Late st Contact Info) Description 12/04/2023 1:00 PM EDT Office Visit Home Dialysis [address], [place], [place] [phone] [facility] Peritoneal Dialysis [address] [place] [address] 12/11/2023 8:00 AM EDT Treatment Home Dialysis [address], [place] [address] Nurse, [place] [address] 12/11/2023 1:00 PM EDT Nurse Only Home Dialysis [address], [place] [address] Nurse, [place] [address] 12/26/2023 1:00 PM EDT Office Visit Home Dialysis [address], [place] [address] [facility] Peritoneal Dialysis [address] [place] [address] 01/10/2024 8:00 AM EDT Treatment Home Dialysis [facility] [place] [address] Nurse, Lance [address] [employer] [address] [place] [address] 01/10/2024 1:00 PM EDT Nurse Only Home Dialysis [facility] [place] [address] Nurse, Lance [address] [employer] [address] [place] [address] 02/08/2024 1:00 PM EDT Office Visit Home Dialysis [facility] [place] [address] [facility] Dialysis [address] [facility] [place] [address] 02/10/2024 8:00 AM EDT Treatment Home Dialysis [facility] [address] [place], [place] [phone] Nurse, Lance [address] [employer] [address] [place] [address] 02/12/2024 1:00 PM EDT Nurse Only Home Dialysis [facility] [place], [place] [phone] Nurse, Lance [address] [employer] [address] [place] [address] 03/05/2024 1:00 PM EDT Office Visit Home Dialysis [facility] [place] [address] [facility] Peritoneal Dialysis [address] [place] [address] 03/11/2024 8:00 AM EDT Treatment Home Dialysis [facility] [address] [place] [address] Nurse, Lance [address] [employer] [address] [place] [address] 03/11/2024 1:00 PM EDT Nurse Only Home Dialysis [facility] [place] [address] Nurse, Lance [address] [employer] [address] [place], [place] [address] 03/19/2024 1:00 PM EDT Office Visit Home Dialysis [facility] [place], [place] [address] [facility] Peritoneal Dialysis [address] [place] [address] 04/11/2024 8:00 AM EDT Treatment Home Dialysis [facility] [address] [place], [place] [phone] Nurse, Lance [address] [employer] [address] [place], [place] [address] 04/11/2024 1:00 PM EDT Nurse Only Home Dialysis [facility] [place], [place] [address] Nurse, Lance Ogin [employer] [address] [place], [place] [address] 04/29/2024 1:00 PM EDT Office Visit Home Dialysis [facility] [address] [place], [place] [address] [facility] Peritoneal Dialysis [address] [place] [facility] [place] [address] 05/12/2024 8:00 AM EDT Treatment Home Dialysis [facility] [address] [place], [place] [address] Nurse, Lance [address] [employer] [address] [place] [address] 05/14/2024 1:00 PM EDT Nurse Only Home Dialysis [facility] [place], [place] [address] Nurse, Lance [address] [employer] [address] [place], [place] [address] 06/07/2024 1:00 PM EDT Office Visit Home Dialysis [facility] [address] [place], [place] [address] [facility] Peritoneal Dialysis [address] [place] [address] 06/11/2024 8:00 AM EDT Treatment Home Dialysis [facility] [address] [place], [place] [address] Nurse, [employer] [address] [place], [place] [address] 06/11/2024 1:00 PM EDT Nurse Only Home Dialysis [facility] [place], [place] [phone] Nurse, [employer] [address] [place], [place] [address] 06/25/2024 1:00 PM EDT Office Visit Home Dialysis [facility] [address] [place], [place] [address] [facility] Peritoneal Dialysis [address] [facility] [place] [address] 07/12/2024 8:00 AM EDT Treatment Home Dialysis [facility] [address] [place], [place] [address] Nurse, Lance Ogin [address] [place], [place] [address] 07/12/2024 1:00 PM EDT Nurse Only Home Dialysis [facility] [address] [place], [place] [address] Nurse, [employer] [address] [place], [place] [address] 07/22/2024 1:00 PM EST Office Visit Home Dialysis [facility] [place] [address] [facility] Peritoneal Dialysis [address] [facility] [place], [place] [address] 08/11/2024 8:00 AM EST Treatment Home Dialysis [facility] [address] [place], [place] [address] Nurse, [address] [place] [address] 08/12/2024 1:00 PM EST Nurse Only Home Dialysis [facility] [place], [place] [address] Nurse, Lance [address] [place], [place] [address] 08/20/2024 1:00 PM EST Office Visit Home Dialysis [facility] [address] [phone] [facility], Peritoneal Dialysis [address] [place] [address] Health Maintenance Due Date Last Done Comments [...] Directives occurred with: Patient Care Teams Cardiovascular Or Nurse Relationship Specialty Start Date End Date Tomer Garner MD [address] [place] [address] PCP - General 09/19/02 documented as of this encounter
--- OUTSIDE RECORDS SUMMARY | 2024-03-17 14:23 | External Medical Summary ---
Author Name Unknown Address Unknown Organization [id number]:[facility] [place] [facility] [address] Laboratory Report Ordering Provider Test Date Status MARI BOB 11/23/2023 14:16:36 Final Observation Date Value Abnormality Reference (Units ) Status Creatinine, Body Fluid 11/23/2023 14:16:36 7.9 (mg/dL) Final The reference interval(s) an d other method performance specifications may not be available for this body fluid. Comparison of this result with the concentration in the blood, serum, or plasma is recommended. The test result must be integrated into the clinical context for interpretation.

Please refer to test catalog ([email or web address]_[email or web address]) for additional interpretive information.

This test was developed and its performance characteristics determined by [employer]. It has not been cleared or approved by the [place] Food and Drug Administration. Performing Location [facility] [place] [address] [facility] [address]
--- OUTSIDE RECORDS SUMMARY | 2024-03-17 14:24 | External Medical Summary | Summary of Care ---
Author Name Unknown Organization [facility] Address [address] [place] [address] Phone [phone] Care Team Providers Care Cup Setter Lockstitch Name Role Phone Tomer Garner MD Primary Care Provider [phone] Reason for Visit * Reason Comments Hemodialysis * Episode Based Medications (Routine) - Closed Specialty Diagnoses / Procedures Referred By Contac t Referred To Contact Diagnoses ESRD on peritoneal dialysis (HCC) 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 chronic kidney disease, not on chronic dialysis (HCC) Procedures NV EPOETIN SLOAN, NON-ESRD NV EPOETIN SLOAN, 100 UNITS ESRD Yonny Saldivar MD [address] [place] [address] [address] [place] [address] Referral ID Status Reason Start Date Expiration Date Visits Re quested Visits Authorized [id number] Closed 08/22/2023 02/21/2024 999 0 Encounter Details Date Type Department Care Team (Late st Contact Info) Description 09/14/2023 5:30 AM EST Treatment Hemodialysis Cl[facility] Lucas [...] (Oral) 1981,04/11 Pneumococcal Conjugate Vacci ne, 20-valent ([id number]) 11/17/2022 Seasonal Influenza, PF, 6 M & [...] Sign Reading Time Taken Comments Blood Pressure 119/47 09/14/2023 10:00 AM EST Pulse 81 09/14/2023 11:05 AM EST Temperature 37.3 C (99.1 F) 09/14/2023 11:[address] Respiratory Rate 16 09/14/2023 11:05 AM EST Oxygen Saturation - - Inhaled [...] [address] [place] [address] [facility], Peritoneal Dialysis [address] [place] [address] 12/11/2023 8:00 AM EDT Treatment Home Dialysis [facility] [address] [place] [address] Nurse, Lance Lopez [address] [place] [address] 12/11/2023 1:00 PM EDT Nurse Only Home Dialysis [facility] [address] [place], [place] [phone] Nurse, Lance [address] [employer] [address] [place], [place] [address] 12/26/2023 1:00 PM EDT Office Visit Home Dialysis [facility] [address] [place], [place] [address] [facility], Peritoneal Dialysis [address] [place] [address] 01/10/2024 8:00 AM EDT Treatment Home Dialysis [facility] [address] [place], [place] [phone] Nurse, Lance [address] [employer] [address] [place], [place] [address] 01/10/2024 1:00 PM EDT Nurse Only Home Dialysis [facility] [address] [place], [place] [phone] Nurse, Lance [address] [employer] [address] [place], [place] [address] 02/08/2024 1:00 PM EDT Office Visit Home Dialysis [facility] [address] [place], [place] [address] [facility], Peritoneal Dialysis [address] [place] [address] 02/10/2024 8:00 AM EDT Treatment Home Dialysis [facility] [address] [place], [place] [address] Nurse, Lance [address] [place], [place] [address] 02/12/2024 1:00 PM EDT Nurse Only Home Dialysis [facility] [address] [place], [place] [phone] Nurse, Lance [address] [employer] [address] [place], [place] [address] 03/05/2024 1:00 PM EDT Office Visit Home Dialysis [facility] [address] [place], [place] [address] [facility], Peritoneal Dialysis [address] [place], [place] [address] 03/11/2024 8:00 AM EDT Treatment Home Dialysis [facility] [address] [place], [place] [phone] Nurse, Lance [address] [employer] [address] [place], [place] [address] 03/11/2024 1:00 PM EDT Nurse Only Home Dialysis [facility] [address] [place], [place] [phone] Nurse, Lance Drive [employer] [address] [place], [place] 03/19/2024 1:00 PM EDT Office Visit Home Dialysis [facility] [address] [place], [place] [address] [facility] Peritoneal Dialysis [address] [facility] [place] [address] 04/11/2024 8:00 AM EDT Treatment Home Dialysis [facility] [address] [place], [place] [phone] Nurse, Lance [address] [place], [place] [address] 04/11/2024 1:00 PM EDT Nurse Only Home Dialysis [facility] [address] [place], [place] [phone] Nurse, Lance [address] [place], [place] [address] 04/29/2024 1:00 PM EDT Office Visit Home Dialysis [facility] [address] [place] [address] [facility] Peritoneal Dialysis [address] [place] [address] 05/12/2024 8:00 AM EDT Treatment Home Dialysis [facility] [address] [place], [place] [address] Nurse, Lance [employer] [address] [place], [place] [address] 05/14/2024 1:00 PM EDT Nurse Only Home Dialysis [facility] [address] [place], [place] [phone] Nurse, Lance [employer] [address] [place], [place] [address] 06/07/2024 1:00 PM EDT Office Visit Home Dialysis [facility] [address] [place], [place] [address] [facility] Peritoneal Dialysis [address] [place] [facility] [place] [address] 06/11/2024 8:00 AM EDT Treatment Home Dialysis [facility] [address] [place], [place] [phone] Nurse, [employer] [address] [place], [place] [address] 06/11/2024 1:00 PM EDT Nurse Only Home Dialysis [facility] [address] [place], [place] [phone] Nurse, Lance [employer] [address] [place], [place] [address] 06/25/2024 1:00 PM EDT Office Visit Home Dialysis [facility] [address] [place], [place] [address] [facility] Peritoneal Dialysis [address] [place] [facility] [place] [address] 07/12/2024 8:00 AM EDT Treatment Home Dialysis [facility] [address] [place] [address] Nurse, Lance Lopez [address] [place], [place] [address] 07/12/2024 1:00 PM EDT Nurse Only Home Dialysis [address] [address] [place], [place] [phone] Nurse, Lance Lopez [address] [place], [place] [address] 07/22/2024 1:00 PM EST Office Visit Home Dialysis [facility] [address] [place], [place] [phone] [facility] Peritoneal Dialysis [address] [facility] [place] [address] 08/11/2024 8:00 AM EST Treatment Home Dialysis [facility] [address] [place], [place] [phone] Nurse, Lance Lopez [address] [place], [place] [address] 08/12/2024 1:00 PM EST Nurse Only Home Dialysis [address] [address] [place], [place] [phone] Nurse, Lance Lopez [address] [place], [place] [address] 08/20/2024 1:00 PM EST Office Visit Home Dialysis [address] [address] [place], [place] [address] [facility] Peritoneal Dialysis [address] [place] [place] [address] Health Maintenance Due Date Last Done Comments COVID-19 Vaccine (3 - Moderna risk series) 12/21/2020 11/23/2020, 10/18/2020 Hepatitis B (3 of 4 - Risk Dialysis Recombivax 3-dose series) 10/05/2023 05/02/2023, 04/04/2023 Depression Screening 11/06/2024 11/06/2023 Lipid Panel 05/18/2026 05/18/2021, 12/09/2009, 11/11/2004, Additional history exists Diabetes Screening 11/13/2026 [...] 4 mcg 4 mcg, Intravenous, ONCE, On Marylu 09/14/23 at 0715, For 1 dose Given 09/14/2023 6:45 AM EST 4 mcg Epoetin [place]loan [address] UNIT/ML inj 7,600 Units 7,600 Units, Intravenous, ONCE, On Marylu 09/14/23 at 0715, For 1 dose Given 09/14/2023 6:45 AM EST 7,600 Units hEParin 1,000 unit/mL infusion for dialysis 500 Units/hr (0.5 mL/hr), Hemodialysis, CONTINUOUS, Starting on Marylu 09/14/23 at 0715, Until Marylu 09/14/23 at 1204, Maintenance: Stop 1 hour before dialysis end in AVF/AVG. Continue through dialysis in CVC. The total delivered dose is approximately 2,500 to 5,000 units, based on weight and treatment duration assumptions Start Infusion 09/14/2023 5:56 AM EST 500 Units/hr 0.5 mL/hr hEParin 1000 UNIT/ML inj 2,000 Units 2,000 Units, Intravenous, ONCE, On Marylu 09/14/23 at 0715, For 1 dose, Loading dose Given 09/14/2023 5:56 AM EST 2,000 Units sodium citrate 4% (Anticoagulant Sodium Citrate) inj 2.5 mL 2.5 mL, Dialysis catheter, ONCE, On Marylu 09/14/23 at 0715, For 1 dose, ARTERIAL For use only to lock dialysis catheter after dialysis Given 09/14/2023 10:01 AM EST 2.5 mL sodium citrate 4% (Anticoagulant Sodium Citrate) inj 2.5 mL 2.5 mL, Dialysis catheter, ONCE, On Marylu 09/14/23 at 0715, For 1 dose, VENOUS For use only to lock dialysis catheter after dialysis Given 09/14/2023 10:01 AM EST 2.5 mL documented in this [...] Advance Directives occurred with: Patient Care Teams Cup Setter Lockstitch Relationship Specialty Start Date End Date Tomer Garner MD [address] [facility] [place] [address] PCP - General 09/19/02 documented as of this encounter
--- OUTSIDE RECORDS SUMMARY | 2024-03-17 14:24 | External Medical Summary | Summary of Care ---
Author Name Unknown Organization [facility] Address [address] [place] [address] Phone [phone] Care Team Providers Care Cook Box Filler Name Role Phone Tomer Garner MD Primary Care Provider Reason for Visit * Reason Comments Hemodialysis * Episode Based Medications (Routine) - Closed Specialty Diagnoses / Procedures Referred By Contac t Referred To Contact Diagnoses ESRD on peritoneal dialysis (HCC) 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 chronic kidney disease, not on chronic dialysis (HCC) Procedures [place] EPOETIN SLOAN, NON-ESRD [place] EPOETIN SLOAN, 100 UNITS ESRD Yonny Saldivar MD [address] [place] [address] [address] [place] [address] Referral ID Status Reason Start Date Expiration Date Visits Re quested Visits Authorized [id number] Closed 08/22/2023 02/21/2024 999 0 Encounter Details [...] (Oral) 1981,04/11 Pneumococcal Conjugate Vacci ne, 20-valent ([id number]) 11/17/2022 Seasonal Influenza, PF, 6 M & [...] [address] [place] [address] [facility], Peritoneal Dialysis [address] [place] [address] 12/11/2023 8:00 AM EDT Treatment Home Dialysis [facility] [address] [place] [address] Nurse, Lance Lopez [address] [place] [address] 12/11/2023 1:00 PM EDT Nurse Only Home Dialysis [facility] [address] [place], [place] [phone] Nurse, Lance [address] [employer] [address] [place], [place] [address] 12/26/2023 1:00 PM EDT Office Visit Home Dialysis [facility] [address] [place], [place] [address] [facility]ialysis [address] [place] [address] 01/10/2024 8:00 AM EDT Treatment Home Dialysis [facility]au [address] [place], [place] [phone] Nurse, Lance [address] [employer] [address] [place], [place] [address] 01/10/2024 1:00 PM EDT Nurse Only Home Dialysis [facility] [address] [place], [place] [phone] Nurse, Lance [address] [employer] [address] [place], [place] [address] 02/08/2024 1:00 PM EDT Office Visit Home Dialysis [facility] [address] [place], [place] [address] [facility] [place]ialysis [address] [place] [address] 02/10/2024 8:00 AM EDT Treatment Home Dialysis [facility] [address] [place], [place] [address] Nurse, [address] [place], [place] [address] 02/12/2024 1:00 PM EDT Nurse Only Home Dialysis [facility] [address] [place], [place] [phone] Nurse, Lance [address] [employer] [address] [place], [place] [address] 03/05/2024 1:00 PM EDT Office Visit Home Dialysis [facility] [address] [place], [place] [address] [facility], Peritoneal Dialysis [address] [place], [place] [address] 03/11/2024 8:00 AM EDT Treatment Home Dialysis [facility] [address] [place], [place] [phone] Nurse, Lance [address] [employer] [address] [place], [place] [address] 03/11/2024 1:00 PM EDT Nurse Only Home Dialysis [facility] [address] [place], [place] [phone] Nurse, Lance [address] [employer] [address] [place], [place] 03/19/2024 1:00 PM EDT Office Visit Home Dialysis [facility] [address] [place], [place] [address] [facility]ialysis [address] [facility] [place] [address] 04/11/2024 8:00 AM EDT Treatment Home Dialysis [facility] [address] [place], [place] [phone] Nurse, Lance [address] [place], [place] [address] 04/11/2024 1:00 PM EDT Nurse Only Home Dialysis [facility] [address] [place], [place] [phone] Nurse, Lance [address] [place], [place] [address] 04/29/2024 1:00 PM EDT Office Visit Home Dialysis [facility] [address] [place] [address] [facility] [place] Dialysis [address] [place] [address] 05/12/2024 8:00 AM EDT Treatment Home Dialysis [facility] [address] [place], [place] [address] Nurse, Lance [employer] [address] [place], [place] [address] 05/14/2024 1:00 PM EDT Nurse Only Home Dialysis [address] [address] [place], [place] [phone] Nurse, Lance [employer] [address] [place], [place] [address] 06/07/2024 1:00 PM EDT Office Visit Home Dialysis [facility] [address] [place], [place] [address] [facility] [place] Dialysis [address] [place] [facility] [place] [address] 06/11/2024 8:00 AM EDT Treatment Home Dialysis [facility] [address] [place], [place] [phone] Nurse, [employer] [address] [place], [place] [address] 06/11/2024 1:00 PM EDT Nurse Only Home Dialysis [facility] [address] [place], [place] [phone] Nurse, Lance [employer] [address] [place], [place] [address] 06/25/2024 1:00 PM EDT Office Visit Home Dialysis [facility] [address] [place], [place] [address] [facility] [place] Dialysis [address] [place] [facility] [place] [address] 07/12/2024 8:00 AM EDT Treatment Home Dialysis [facility] [address] [place] [address] Nurse, Lance Lopez [address] [place], [place] [address] 07/12/2024 1:00 PM EDT Nurse Only Home Dialysis [facility] [address] [place], [place] [phone] Nurse, Lance Lopez [address] [place], [place] [address] 07/22/2024 1:00 PM EST Office Visit Home Dialysis [facility] [address] [place], [place] [phone] [facility] [place]ialysis [address] [facility] [place] [address] 08/11/2024 8:00 AM EST Treatment Home Dialysis [facility] [address] [place], [place] [phone] Nurse, Lance Lopez [address] [place], [place] [address] 08/12/2024 1:00 PM EST Nurse Only Home Dialysis [address] [address] [place], [place] [phone] Nurse, Lance Lopez [address] [place], [place] [address] 08/20/2024 1:00 PM EST Office Visit Home Dialysis [address] [address] [place], [place] [address] [facility] [place] [address] [place] [address] Health Maintenance Due Date Last Done Comments [...] 6:45 AM EST 4 mcg Epoetin Sloan [address] UNIT/ML inj 7,600 Units 7,600 Units, Intravenous, [...] Advance Directives occurred with: Patient Care Teams Cook Box Filler Relationship Specialty Start Date End Date Tomer Garner MD [address] [facility] [place] [address] PCP - General 09/19/02 documented as of this encounter
--- OUTSIDE RECORDS SUMMARY | 2024-03-17 14:24 | External Medical Summary | Summary of Care ---
Author Name Unknown Organization [facility] Address [address] [place] [address] Phone [phone] Care Team Providers Care Accounts Payable Associate Name Role Phone Tomer Garner MD Primary Care Provider [phone] Reason for Visit * Reason Comments Hemodialysis * Episode Based Medications (Routine) - Closed Specialty Diagnoses / Procedures Referred By Contac t Referred To Contact Diagnoses ESRD on peritoneal dialysis (HCC) 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 chronic kidney disease, not on chronic dialysis (HCC) Procedures UT EPOETIN SLOAN, NON-ESRD UT EPOETIN SLOAN, 100 UNITS ESRD Yonny Saldivar MD [address] [place] [address] [place] [address] Referral ID Status Reason Start Date Expiration Date Visits Re quested Visits Authorized [id number] Closed 08/22/2023 02/21/2024 999 0 Encounter Details [...] (Oral) 1981,04/11 Pneumococcal Conjugate Vacci ne, 20-valent ([id number]) 11/17/2022 Seasonal Influenza, PF, 6 M & [...] [address] [place] [address] Nurse, Lance Lopez [employer] [address] [place] [address] 12/04/2023 1:00 PM EDT Office Visit Home Dialysis [facility] [address] [place] [id number] [facility], Peritoneal Dialysis [address] [facility] [place] [id number] 12/11/2023 8:00 AM EDT Treatment Home Dialysis [facility] [place], [place] [phone] Nurse, Lance [address] [facility] [address] [place], [place] [address] 12/11/2023 1:00 PM EDT Nurse Only Home Dialysis [address] [place], [place] [phone] Nurse, Lance [address] [employer] [address] [place], [place] [address] 12/26/2023 1:00 PM EDT Office Visit Home Dialysis [address] [place], [place] [phone] [facility], Peritoneal Dialysis [address] [place] [address] 01/10/2024 8:00 AM EDT Treatment Home Dialysis [address] [place], [place] [phone] Nurse, Lance [address] [facility] [address] [place] [address] 01/10/2024 1:00 PM EDT Nurse Only Home Dialysis [address] [place], [place] [phone] Nurse, Lance [address] [facility] [place] [address] 02/08/2024 1:00 PM EDT Office Visit Home Dialysis [address] [place] [address] [facility], Peritoneal Dialysis [address] [facility] [address] 02/10/2024 8:00 AM EDT Treatment Home Dialysis [facility] [place], [place] [phone] Nurse, Lance [address] [employer] [address] [place], [place] [address] 02/12/2024 1:00 PM EDT Nurse Only Home Dialysis [address] [place], [place] [phone] Nurse, Lance [address] [facility] [address] [place], [place] [address] 03/05/2024 1:00 PM EDT Office Visit Home Dialysis [facility] [place], [place] [phone] [facility], Peritoneal Dialysis [address] [place] [address] 03/11/2024 8:00 AM EDT Treatment Home Dialysis [facility] [place], [place] [phone] Nurse, Lance [address] [facility] [address] [place], [place] 03/11/2024 1:00 PM EDT Nurse Only Home Dialysis [address] [place], [place] [phone] Nurse, Lance Drive [place], [place] [address] 03/19/2024 1:00 PM EDT Office Visit Home Dialysis [address] [place], [place] [address] [facility], Peritoneal Dialysis [address] [place] [place] [address] 04/11/2024 8:00 AM EDT Treatment Home Dialysis [address] [place], [place] [phone] Nurse, Lancebaltazar [place], [place] [address] 04/11/2024 1:00 PM EDT Nurse Only Home Dialysis [address] [place], [place] [phone] Nurse, Lance [address] [place], [place] [address] 04/29/2024 1:00 PM EDT Office Visit Home Dialysis [address] [place], [place] [address] [facility], Peritoneal Dialysis [address] [place] [address] 05/12/2024 8:00 AM EDT Treatment Home Dialysis [address] [place], [place] [address] Nurse, [employer] [address] [place] [address] 05/14/2024 1:00 PM EDT Nurse Only Home Dialysis [address] [place], [place] [phone] Nurse, [employer] [address] [place], [place] [address] 06/07/2024 1:00 PM EDT Office Visit Home Dialysis [facility] [place], [place] [address] [facility], Peritoneal Dialysis [address] [place] [address] 06/11/2024 8:00 AM EDT Treatment Home Dialysis [facility] [place], [place] [phone] Nurse, [employer] [address] [place], [place] [address] 06/11/2024 1:00 PM EDT Nurse Only Home Dialysis [address] [place], [place] [address] Nurse, [employer] [address] [place], [place] [address] 06/25/2024 1:00 PM EDT Office Visit Home Dialysis [address] [place], [place] [address] [facility], Peritoneal Dialysis [address] [facility] [place] [address] 07/12/2024 8:00 AM EDT Treatment Home Dialysis [facility] [place], [place] [address] Nurse, Lancebaltazar Bee [address] [place], [place] [address] 07/12/2024 1:00 PM EDT Nurse Only Home Dialysis [facility] [place] [address] Nurse, Lance [employer] [address] [place] [address] 07/22/2024 1:00 PM EST Office Visit Home Dialysis [facility] [place] [address] [address] [facility], Peritoneal Dialysis [address] [facility] [place] [address] 08/11/2024 8:00 AM EST Treatment Home Dialysis [facility] [address] [place] [address] Nurse, [employer] [address] [place], [place] [address] 08/12/2024 1:00 PM EST Nurse Only Home Dialysis [address] [place] [address] Nurse, [employer] [address] [place], [place] [address] 08/20/2024 1:00 PM EST Office Visit Home Dialysis [address] [place], [place] [address] [facility], Peritoneal Dialysis [address] [facility] [place] [address] Health Maintenance Due Date Last Done Comments [...] 7:58 AM EST 4 mcg Epoetin Sloan [address] UNIT/ML inj 7,600 Units 7,600 Units, Intravenous, [...] Advance Directives occurred with: Patient Care Teams Accounts Payable Associate Relationship Specialty Start Date End Date Tomer Garner MD [address] [place] [address] PCP - General 09/19/02 documented as of this encounter
--- OUTSIDE RECORDS SUMMARY | 2024-03-17 14:24 | External Medical Summary | Summary of Care ---
Author Name Unknown Organization [facility] Address [address] [place] [address] Phone [phone] Care Team Providers Care Strainer Mill Operator Name Role Phone Tomer Garner MD Primary Care Provider Reason for Visit * Episode Based Medications (Routine) - Closed Specialty Diagnoses / Procedures Referred By Conternestina t Referred To Contact Diagnoses ESRD on peritoneal dialysis (HCC) 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 chronic kidney disease, not on chronic dialysis (HCC) Procedures AR EPOETIN SLOAN, NON-ESRD AR EPOETIN SLOAN, 100 UNITS ESRD Yonny Saldivar MD [address] [place] [address] [address] [place] [address] Referral ID Status Reason Start Date Expiration Date Visits Re quested Visits Authorized [id number] Closed 08/22/2023 02/21/2024 999 0 Encounter Details Date Type Department Care Team (Late st Contact Info) Description 09/16/2023 5:30 AM EST Treatment Hemodialysis [address] [place] [address] [address] ESRD (end stage renal disease) (HCC)*; Anemia of chronic renal failure, stage 5 (HCC); Anemia in chronic kidney disease, on chronic dialysis (HCC); Anemia in chronic renal disease; 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 chronic kidney disease, not on chronic dialysis (HCC); Pre-transplant evaluation for ESRD (end stage renal disease) Allergies No known active allergiesdocumented as of this encounter (statuses as of 11/20/2023) Medications Medication Sig Dispensed Refills Start Date [...] as of this encounter (statuses as of 11/20/2023) Active Problems Problem Noted Date Diagnosed Date [...] as of this encounter (statuses as of 11/20/2023) Resolved Problems Problem Noted Date Diagnosed Date [...] as of this encounter (statuses as of 11/20/2023) Immunizations Name Administration Dates Next Due COVID-19 mRNA, LNP-s, No Pre serve, 2-Dose Series (Moderna) 11/23/2020,10/18/2020 DTP Vaccine 1981,1981,1981 HEP B - Hepatitis B (Dialysis/Immumocomp Pt) 05/02/2023,04/04/2023 MMR - Measles/Mumps/Rubella Vaccine 05/11/1982 OPV - Polio Virus Vaccine (Oral) 1981,04/11 Pneumococcal Conjugate Vacci ne, 20-valent ([id number]) 11/17/2022 Pneumococcal Polysaccharide PPV23 (Pneumovax) 02/03/2004 Seasonal [...] Sign Reading Time Taken Comments Blood Pressure 131/80 09/16/2023 9:42 AM EST Pulse 91 09/16/2023 9:42 AM EST Temperature 37 C (98.6 F) 09/16/2023 9:41 AM EST Respiratory Rate 16 09/16/2023 9:41 AM EST Oxygen Saturation - - Inhaled [...] [address] [place] [address] [id number] Mdc, Peritoneal Dialysis [address] [facility] [place] [address] 12/11/2023 8:00 AM EDT Treatment Home Dialysis [facility] [place] [address] [phone] Nurse, Lance Bee [address] [place], [place] [address] 12/11/2023 1:00 PM EDT Nurse Only Home Dialysis [address] [place], [place] [address] Nurse, Lance [address] [employer] [address] [place] [address] 12/26/2023 1:00 PM EDT Office Visit Home Dialysis [address] [place] [address] [facility] [address] [place] [address] 01/10/2024 8:00 AM EDT Treatment Home Dialysis [address] [place], [place] [phone] Nurse, Lance [address] [employer] [address] [place], [place] [address] 01/10/2024 1:00 PM EDT Nurse Only Home Dialysis [address] [place], [place] [phone] Nurse, Lance [employer] [facility] [address] [place] [address] 02/08/2024 1:00 PM EDT Office Visit Home Dialysis [address] [place], [place] [address] [facility]ialysis [address] [place] [address] 02/10/2024 8:00 AM EDT Treatment Home Dialysis [facility] [place], [place] [phone] Nurse, Lance [address] [employer] [address] [place], [place] [address] 02/12/2024 1:00 PM EDT Nurse Only Home Dialysis [address] [place], [place] [address] Nurse, Lance [address] [employer] [address] [place] [address] 03/05/2024 1:00 PM EDT Office Visit Home Dialysis [address] [place], [place] [address] [facility] Dialysis [address] [place] [address] 03/11/2024 8:00 AM EDT Treatment Home Dialysis [facility] [place], [place] [address] Nurse, [address] [place] [address] 03/11/2024 1:00 PM EDT Nurse Only Home Dialysis [address] [place], [place] [phone] Nurse, Lance [address] [place], [place] [address] 03/19/2024 1:00 PM EDT Office Visit Home Dialysis [address] [place], [place] [address] [facility] Dialysis [address] [place] [facility] [place] [address] 04/11/2024 8:00 AM EDT Treatment Home Dialysis [address] [place], [place] [address] Nurse, [address] [employer] [address] [place] [address] 04/11/2024 1:00 PM EDT Nurse Only Home Dialysis [address] [place] [address] Nurse, [address] [employer] [address] [place] [address] 04/29/2024 1:00 PM EDT Office Visit Home Dialysis [address] [place], [place] [address] [facility] Dialysis [address] [place] [address] 05/12/2024 8:00 AM EDT Treatment Home Dialysis [address] [place], [place] [address] Nurse, Lance [address] [place], [place] [address] 05/14/2024 1:00 PM EDT Nurse Only Home Dialysis [address] [place], [place] [phone] Nurse, Lance [address] [place], [place] [address] 06/07/2024 1:00 PM EDT Office Visit Home Dialysis [address] [place], [place] [address] [facility] Dialysis [address] [place] [address] 06/11/2024 8:00 AM EDT Treatment Home Dialysis [address] [place], [place] [phone] Nurse, Lance [address] [place] [address] 06/11/2024 1:00 PM EDT Nurse Only Home Dialysis [address] [place] [address] Nurse, [address] [place] [address] 06/25/2024 1:00 PM EDT Office Visit Home Dialysis [address] [place], [place] [address] [facility] Dialysis [address] [place] [address] 07/12/2024 8:00 AM EDT Treatment Home Dialysis [facility] [place], [place] [address] Nurse, Lance Lopez [facility] [address] [place], [place] [address] 07/12/2024 1:00 PM EDT Nurse Only Home Dialysis [address] [place], [place] [address] Nurse, Lance Lopez [address] [address] [place], [place] [address] 07/22/2024 1:00 PM EST Office Visit Home Dialysis [address] [place], [place] [phone] [facility] [address] [facility] [place] [address] 08/11/2024 8:00 AM EST Treatment Home Dialysis [address] [place], [place] [address] Nurse, Lance [address] [employer] [address] [place], [place] [address] 08/12/2024 1:00 PM EST Nurse Only Home Dialysis [address] [place], [place] [address] Nurse, Lance Lopez [facility] [address] [place], [place] [address] 08/20/2024 1:00 PM EST Office Visit Home Dialysis [facility] [place], [place] [phone] [facility] [place]ialysis [address] [place], [place] [id number] Health Maintenance Due Date Last Done Comments [...] kidney disease, not on chronic dialysis (HCC) Pre-transplant evaluation for ESRD (end stage renal disease) Other specified pre-operative examination documented in this encounter Administered Medications Inactive Administered Medications - up to 3 most recent administrations Medication Order MAR Action Action Date Dose Rate Site Doxercalciferol (Hectorol) 2 MCG/ML inj 4 mcg 4 mcg, Intravenous, ONCE, On 09/16/23 at 0700, For 1 dose Given 09/16/2023 6:21 AM EST 4 mcg Epoetin Sloan [address] UNIT/ML inj 7,600 Units 7,600 Units, Intravenous, ONCE, On 09/16/23 at 0700, For 1 dose Given 09/16/2023 6:21 AM EST 7,600 Units hEParin 1,000 unit/mL infusion for dialysis 500 Units/hr (0.5 mL/hr), Hemodialysis, CONTINUOUS, Starting on 09/16/23 at 0700, Until 09/16/23 at 1424, Maintenance: Stop 1 hour before dialysis end in AVF/AVG. Continue through dialysis in CVC. The total delivered dose is approximately 2,500 to 5,000 units, based on weight and treatment duration assumptions New Bag 09/16/2023 6:21 AM EST 500 Units/hr 0.5 mL/hr hEParin 1000 UNIT/ML inj 2,000 Units 2,000 Units, Intravenous, ONCE, On 09/16/23 at 0700, For 1 dose, Loading dose Given 09/16/2023 6:21 AM EST 2,000 Units sodium citrate 4% (Anticoagulant Sodium Citrate) inj 2.5 mL 2.5 mL, Dialysis catheter, ONCE, On 09/16/23 at 0700, For 1 dose, ARTERIAL For use only to lock dialysis catheter after dialysis Given 09/16/2023 6:22 AM EST 2.5 mL sodium citrate 4% (Anticoagulant Sodium Citrate) inj 2.5 mL 2.5 mL, Dialysis catheter, ONCE, On 09/16/23 at 0700, For 1 dose, VENOUS For use only to lock dialysis catheter after dialysis Given 09/16/2023 6:22 AM EST 2.5 mL documented in this [...] Advance Directives occurred with: Patient Care Teams Strainer Mill Operator Relationship Specialty Start Date End Date Tomer Garner MD [address] [facility] PCP - General 09/19/02 documented as of this encounter
--- OUTSIDE RECORDS SUMMARY | 2024-03-17 14:24 | External Medical Summary | Summary of Care ---
Author Name Unknown Organization [facility] Address [address] [place] [address] Phone [phone] Care Team Providers Care Apple Sorter Name Role Phone Tomer Garner MD Primary Care Provider Reason for Visit * Reason Comments Hemodialysis * Episode Based Medications (Routine) - Closed Specialty Diagnoses / Procedures Referred By Contac t Referred To Contact Diagnoses ESRD on peritoneal dialysis (HCC) 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 chronic kidney disease, not on chronic dialysis (HCC) Procedures DE EPOETIN SLOAN, NON-ESRD DE EPOETIN SLOAN, 100 UNITS ESRD Yonny Saldivar MD [address] [place] [address] [place] [address] Referral ID Status Reason Start Date Expiration Date Visits Re quested Visits Authorized [id number] Closed 08/22/2023 02/21/2024 999 0 Encounter Details [...] (Oral) 1981,04/11 Pneumococcal Conjugate Vacci ne, 20-valent ([id number]) 11/17/2022 Seasonal Influenza, PF, 6 M & [...] [address] [place] [address] [facility], Peritoneal Dialysis [address] [place] [address] 12/11/2023 8:00 AM EDT Treatment Home Dialysis [address] [place] [address] Nurse, Lance Lopez [facility] [address] [place] [address] 12/11/2023 1:00 PM EDT Nurse Only Home Dialysis [address] [place], [place] [phone] Nurse, Lance Drive [employer] [address] [place], [place] [address] 12/26/2023 1:00 PM EDT Office Visit Home Dialysis [address] [place], [place] [address] [facility], Peritoneal Dialysis [address] [place] [address] 01/10/2024 8:00 AM EDT Treatment Home Dialysis [address] [place], [place] [phone] Nurse, Lance [address] [employer] [address] [place], [place] [address] 01/10/2024 1:00 PM EDT Nurse Only Home Dialysis [address] [place], [place] [phone] Nurse, Lance [address] [employer] [address] [place], [place] [address] 02/08/2024 1:00 PM EDT Office Visit Home Dialysis [address] [place], [place] [address] [facility], Peritoneal Dialysis [address] [place] [address] 02/10/2024 8:00 AM EDT Treatment Home Dialysis [address] [place], [place] [address] Nurse, Lance [address] [place], [place] [address] 02/12/2024 1:00 PM EDT Nurse Only Home Dialysis [address] [place], [place] [phone] Nurse, Lance [address] [employer] [address] [place], [place] [address] 03/05/2024 1:00 PM EDT Office Visit Home Dialysis [address] [place], [place] [address] [facility], Peritoneal Dialysis [address] [place], [place] [address] 03/11/2024 8:00 AM EDT Treatment Home Dialysis [address] [place], [place] [phone] Nurse, Lance [address] [employer] [address] [place], [place] [address] 03/11/2024 1:00 PM EDT Nurse Only Home Dialysis [address] [place], [place] [phone] Nurse, Lance [address] [employer] [address] [place], [place] 03/19/2024 1:00 PM EDT Office Visit Home Dialysis [address] [place], [place] [address] [facility] Peritoneal Dialysis [address] [facility], [place] [address] 04/11/2024 8:00 AM EDT Treatment Home Dialysis [address] [place], [place] [phone] Nurse, Lance [address] [place], [place] [address] 04/11/2024 1:00 PM EDT Nurse Only Home Dialysis [address] [place], [place] [phone] Nurse, Lance [address] [place], [place] [address] 04/29/2024 1:00 PM EDT Office Visit Home Dialysis [address] [place] [address] [facility] Peritoneal Dialysis [address] [place] [address] 05/12/2024 8:00 AM EDT Treatment Home Dialysis [address] [place], [place] [address] Nurse, Lance [employer] [address] [place], [place] [address] 05/14/2024 1:00 PM EDT Nurse Only Home Dialysis [address] [place], [place] [phone] Nurse, Lance [employer] [address] [place], [place] [address] 06/07/2024 1:00 PM EDT Office Visit Home Dialysis [address] [place], [place] [address] [facility] Peritoneal Dialysis [address] [place] [address] 06/11/2024 8:00 AM EDT Treatment Home Dialysis [address] [place], [place] [phone] Nurse, [employer] [address] [place], [place] [address] 06/11/2024 1:00 PM EDT Nurse Only Home Dialysis [address] [place], [place] [phone] Nurse, Lance [employer] [address] [place], [place] [address] 06/25/2024 1:00 PM EDT Office Visit Home Dialysis [address] [place], [place] [address] [facility], Peritoneal Dialysis [address] [place] [address] 07/12/2024 8:00 AM EDT Treatment Home Dialysis [address] [place] [address] Nurse, Lance Lopez [employer] [address] [place], [place] [address] 07/12/2024 1:00 PM EDT Nurse Only Home Dialysis [address] [place], [place] [phone] Nurse, Lance Lopez [address] [address] [place], [place] [address] 07/22/2024 1:00 PM EST Office Visit Home Dialysis [address] [place], [place] [phone] [facility], Peritoneal Dialysis [address] [facility] [place] [address] 08/11/2024 8:00 AM EST Treatment Home Dialysis [facility] [place], [place] [phone] Nurse, Lance Lopez [address] [address] [place], [place] [address] 08/12/2024 1:00 PM EST Nurse Only Home Dialysis [address] [place], [place] [phone] Nurse, Lance Lopez [address] [place], [place] [address] 08/20/2024 1:00 PM EST Office Visit Home Dialysis [address] [place], [place] [address] [facility] [place] Dialysis [address] [place] [address] Health Maintenance Due Date Last Done Comments [...] 6:45 AM EST 4 mcg Epoetin Sloan [address] UNIT/ML inj 7,600 Units 7,600 Units, Intravenous, [...] Advance Directives occurred with: Patient Care Teams Apple Sorter Relationship Specialty Start Date End Date Tomer Garner MD [address] [facility] [place] [address] PCP - General 09/19/02 documented as of this encounter
--- OUTSIDE RECORDS SUMMARY | 2024-03-17 14:24 | External Medical Summary | Summary of Care ---
Author Name Unknown Organization [facility] Address [address] [facility] [place] [address] Phone [phone] Care Team Providers Care Silk Folder Name Role Phone Tomer Garner MD Primary Care Provider [phone] Reason for Visit * Reason Onset Date Comments Returning Call 11/20/2023 Encounter Details Date Type Department Care Team ([facility] st Contact Info) Description 11/20/2023 Telephone Home Dialysis [address] [place] [address] Nurse, [address] [place] [address] Returning Call Allergies No known active allergiesdocumented as of [...] the morning. 30 Tablet 11 09/28/2023 Active documented as of this encounter (statuses [...] (Oral) 1981,04/11 Pneumococcal Conjugate Vacci ne, 20-valent ([id number]) 11/17/2022 Seasonal Influenza, PF, 6 M & [...] encounter Miscellaneous Notes * Telephone Encounter - Alyssa Oneill RN - 11/20/2023 3:40 PM EDT Returned phone call PD clinic today. He is to resume his Losartan as prescribed. He is to continue to monitor his BP and Sophia Hernandez RN will call him tomorrow. documented in this encounter Plan of Treatment Upcoming Encounters Date Type Department Care Team (Late st Contact Info) Description 12/04/2023 1:00 PM EDT Office Visit Home Dialysis [address] [phone] [facility], Peritoneal Dialysis [address] [place] [address] 12/11/2023 8:00 AM EDT Treatment Home Dialysis Hamzah [address] [place] [address] Nurse, [place] [address] 12/11/2023 1:00 PM EDT Nurse Only Home Dialysis [facility] [place] [address] Nurse, [place] [address] 12/26/2023 1:00 PM EDT Office Visit Home Dialysis [facility] [address] [place] [address] [facility], Peritoneal Dialysis [address] [place] [address] 01/10/2024 8:00 AM EDT Treatment Home Dialysis Lance Dr, [place], [place] [address] Nurse, [address] [place] [address] 01/10/2024 1:00 PM EDT Nurse Only Home Dialysis [facility] [place] [address] Nurse, Lance [address] [place] [address] 02/08/2024 1:00 PM EDT Office Visit Home Dialysis [facility] [place] [address] [facility], Peritoneal Dialysis [address] [place] [address] 02/10/2024 8:00 AM EDT Treatment Home Dialysis Hamzah [address] [place], [place] [phone] Nurse, Lance Drive Capd [address] [place] [address] 02/12/2024 1:00 PM EDT Nurse Only Home Dialysis [facility] [place], [place] [phone] Nurse, Lance [address] [place] [address] 03/05/2024 1:00 PM EDT Office Visit Home Dialysis Hamz[facility] [address] [place], [place] [address] [facility], Peritoneal Dialysis [address] [place] [address] 03/11/2024 8:00 AM EDT Treatment Home Dialysis Hamz[address] [place] [address] Nurse, [address] [place] [address] 03/11/2024 1:00 PM EDT Nurse Only Home Dialysis [address] [place] [address] Nurse, [address] [place], [place] [address] 03/19/2024 1:00 PM EDT Office Visit Home Dialysis Hamz[facility] [address] [place] [address] [facility], Peritoneal Dialysis [address] [place] [address] 04/11/2024 8:00 AM EDT Treatment Home Dialysis Hamzah [address] [place], [place] [phone] Nurse, Lance [address] [place], [place] [address] 04/11/2024 1:00 PM EDT Nurse Only Home Dialysis Ham[address] [place], [place] [address] Nurse, [address] [place], [place] [address] 04/29/2024 1:00 PM EDT Office Visit Home Dialysis Hamzah [address] [place] [address] [facility], Peritoneal Dialysis [address] [place] [facility] [address] 05/12/2024 8:00 AM EDT Treatment Home Dialysis Hamzah [address] [place], [place] [address] Nurse, [address] [place] [address] 05/14/2024 1:00 PM EDT Nurse Only Home Dialysis Hamz[address] [place] [address] Nurse, [address] [place] [address] 06/07/2024 1:00 PM EDT Office Visit Home Dialysis Hamzah [address] [place], [place] [address] [facility], Peritoneal Dialysis [address] [place] [address] 06/11/2024 8:00 AM EDT Treatment Home Dialysis Hamzah [address] [place], [place] [phone] Nurse, Lance Sientra [address] [place], [place] [address] 06/11/2024 1:00 PM EDT Nurse Only Home Dialysis [facility] [address] [place], [place] [phone] Nurse, Lance [address] Cristal [address] [place], [place] [address] 06/25/2024 1:00 PM EDT Office Visit Home Dialysis Hamzah [address] [place], [place] [address] [facility], Peritoneal Dialysis [address] [place] [facility] [address] 07/12/2024 8:00 AM EDT Treatment Home Dialysis Hamzah [address] [place], [place] [address] Nurse, Lance Sientra Cirstal [address] [place], [place] [address] 07/12/2024 1:00 PM EDT Nurse Only Home Dialysis Hamzah [address] [place], [place] [phone] Nurse, Lance Sientra [address] [place], [place] [address] 07/22/2024 1:00 PM EST Office Visit Home Dialysis Hamzah [address] [place], [place] [address] [facility], Peritoneal Dialysis [address] [facility] [place], [place] [address] 08/11/2024 8:00 AM EST Treatment Home Dialysis Hamzah [address] [place] [address] Nurse, Lance Sientra [address] [place], [place] [address] 08/12/2024 1:00 PM EST Nurse Only Home Dialysis Hamzah [address] [place], [place] [phone] Nurse, Lance [address] [place], [place] [id number] 08/20/2024 1:00 PM EST Office Visit Home Dialysis [facility] [address] [facility] [address] [place], [place] [address] [facility], Peritoneal Dialysis [address] [place], [place] [address] Health Maintenance Due Date Last Done [...] Advance Directives occurred with: Patient Care Teams Silk Folder Relationship Specialty Start Date End Date Tomer Garner MD [address] [place] [address] PCP - General 09/19/02 documented as of this encounter
--- OUTSIDE RECORDS SUMMARY | 2024-03-17 14:24 | External Medical Summary | Summary of Care ---
Author Name Unknown Organization [facility] Address [address] [place] [address] Phone [phone] Care Team Providers Care Mechanical Development Engineer Name Role Phone Tomer Garner MD [...] UNITS ESRD Yonny Saldivar MD [address] [place] [address] [place] [address] Referral ID Status Reason Start Date Expiration Date Visits Re quested Visits Authorized [id number] Closed 08/22/2023 02/21/2024 999 0 Encounter Details [...] (Oral) 1981,04/11 Pneumococcal Conjugate Vacci ne, 20-valent ([id number]) 11/17/2022 Pneumococcal Polysaccharide PPV23 (Pneumovax) 02/03/2004 Seasonal [...] [address] [place] [id number] [facility], Peritoneal Dialysis [address] [facility] [place] [address] 12/11/2023 8:00 AM EDT Treatment Home Dialysis [facility] [address] [id number] Nurse, Lance Bee [address] [place], [place] [address] 12/11/2023 1:00 PM EDT Nurse Only Home Dialysis Clau [address] [place], [place] [address] Nurse, [address] [place] [address] 12/26/2023 1:00 PM EDT Office Visit Home Dialysis [facility] [address] [place] [address] [facility], Peritoneal Dialysis [address] [place] [address] 01/10/2024 8:00 AM EDT Treatment Home Dialysis Clau [address] [place], [place] [phone] Nurse, Lance [address] [place], [place] [address] 01/10/2024 1:00 PM EDT Nurse Only Home Dialysis [facility] [address] [place], [place] [phone] Nurse, Lance [employer] [address] [place] [address] 02/08/2024 1:00 PM EDT Office Visit Home Dialysis Clau [address] [place], [place] [address] [facility], Peritoneal Dialysis [address] [place] [facility] [address] 02/10/2024 8:00 AM EDT Treatment Home Dialysis Clau [address] [place], [place] [phone] Nurse, Lance [address] [place], [place] [address] 02/12/2024 1:00 PM EDT Nurse Only Home Dialysis Clau [address] [place], [place] [address] Nurse, [address] [place] [address] 03/05/2024 1:00 PM EDT Office Visit Home Dialysis Clau [address] [place], [place] [address] [facility], Peritoneal Dialysis [address] [place] [address] 03/11/2024 8:00 AM EDT Treatment Home Dialysis Clau [address] [place], [place] [address] Nurse, [address] [place] [address] 03/11/2024 1:00 PM EDT Nurse Only Home Dialysis Clau [address] [place], [place] [phone] Nurse, Lance [address] [place], [place] [address] 03/19/2024 1:00 PM EDT Office Visit Home Dialysis Clau [address] [place], [place] [address] [facility], Peritoneal Dialysis [address] [place] [facility] [address] 04/11/2024 8:00 AM EDT Treatment Home Dialysis Clau [address] [place], [place] [address] Nurse, [address] [place] [address] 04/11/2024 1:00 PM EDT Nurse Only Home Dialysis [address] [place] [address] Nurse, [address] [place] [address] 04/29/2024 1:00 PM EDT Office Visit Home Dialysis Clau [address] [place], [place] [address] [facility], Peritoneal Dialysis [address] [place] [address] 05/12/2024 8:00 AM EDT Treatment Home Dialysis Clau [address] [place], [place] [address] Nurse, [address] Cristal [address] [place], [place] [address] 05/14/2024 1:00 PM EDT Nurse Only Home Dialysis Clau [address] [place], [place] [phone] Nurse, Lance [address] Cristal [address] [place], [place] [address] 06/07/2024 1:00 PM EDT Office Visit Home Dialysis Clau [address] [place], [place] [address] [facility], Peritoneal Dialysis [address] [place] [facility] [address] 06/11/2024 8:00 AM EDT Treatment Home Dialysis Clau [address] [place], [place] [phone] Nurse, Lance [address] Crist[address] [place] [address] 06/11/2024 1:00 PM EDT Nurse Only Home Dialysis [facility] [address] [place] [address] Nurse, [address] Crist[address] [place] [address] 06/25/2024 1:00 PM EDT Office Visit Home Dialysis [facility]au [address] [place], [place] [address] [facility], Peritoneal Dialysis [address] [place] [facility] [address] 07/12/2024 8:00 AM EDT Treatment Home Dialysis Clau [address] [place], [place] [address] Nurse, Lance Lopez Cristal [address] [place], [place] [address] 07/12/2024 1:00 PM EDT Nurse Only Home Dialysis [facility]au [address] [place], [place] [address] Nurse, Lance Lopez Cristal [address] [place], [place] [address] 07/22/2024 1:00 PM EST Office Visit Home Dialysis Clau [address] [place], [place] [phone] [facility], Peritoneal Dialysis [address] [facility] [place] [address] 08/11/2024 8:00 AM EST Treatment Home Dialysis Clau [address] [place], [place] [address] Nurse, Lance [address] [place], [place] [address] 08/12/2024 1:00 PM EST Nurse Only Home Dialysis [facility] [address] [place], [place] [address] Nurse, Lance Lopez Cristal [address] [place], [place] [address] 08/20/2024 1:00 PM EST Office Visit Home Dialysis Clau [address] [place], [place] [id number] [facility], Peritoneal Dialysis [address] [place], [place] [id number] Health Maintenance Due Date Last Done Comments [...] 6:21 AM EST 4 mcg Epoetin Sloan [address] UNIT/ML inj 7,600 Units 7,600 Units, Intravenous, [...] Advance Directives occurred with: Patient Care Teams Mechanical Development Engineer Relationship Specialty Start Date End Date Tomer Garner MD [address] [facility] PCP - General 09/19/02 documented as of this encounter
--- OUTSIDE RECORDS SUMMARY | 2024-03-17 14:24 | External Medical Summary | Summary of Care ---
Author Name Unknown Organization [facility] Address [address] [place] [address] Phone [phone] Care Team Providers Care Loan Teller Name Role Phone Tomer Garner MD Primary Care Provider Reason for Visit * Episode Based Medications (Routine) - Closed Specialty Diagnoses / Procedures Referred By Conternestina t Referred To Contact Diagnoses ESRD on peritoneal dialysis (HCC) 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 chronic kidney disease, not on chronic dialysis (HCC) Procedures WI EPOETIN SLOAN, NON-ESRD WI EPOETIN SLOAN, 100 UNITS ESRD Yonny Saldivar MD [address] [place] [address] [place] [address] Referral ID Status Reason Start Date Expiration Date Visits Re quested Visits Authorized [id number] Closed 08/22/2023 02/21/2024 999 0 Encounter Details [...] (Oral) 1981,04/11 Pneumococcal Conjugate Vacci ne, 20-valent ([id number]) 11/17/2022 Pneumococcal Polysaccharide PPV23 (Pneumovax) 02/03/2004 Seasonal [...] [address] [place] [address] [id number] [facility], Peritoneal Dialysis [address] [facility] [place] [address] 12/11/2023 8:00 AM EDT Treatment Home Dialysis Clau [address] [place] [address] [id number] Nurse, Lance Bee [address] [place], [place] [address] 12/11/2023 1:00 PM EDT Nurse Only Home Dialysis Clau [address] [place], [place] [address] Nurse, Lance [address] [place] [address] 12/26/2023 1:00 PM EDT Office Visit Home Dialysis [facility]au [address] [place] [address] [place], Peritoneal Dialysis [address] [place] [address] 01/10/2024 8:00 AM EDT Treatment Home Dialysis Clau [address] [place], [place] [phone] Nurse, Lance [address] [place], [place] [address] 01/10/2024 1:00 PM EDT Nurse Only Home Dialysis [facility]au [address] [place], [place] [phone] Nurse, Lance [employer] [address] [place] [address] 02/08/2024 1:00 PM EDT Office Visit Home Dialysis Clau [address] [place], [place] [address] [place], Peritoneal Dialysis [address] [place] [address] 02/10/2024 8:00 AM EDT Treatment Home Dialysis Clau [address] [place], [place] [phone] Nurse, Lance [address] [place], [place] [address] 02/12/2024 1:00 PM EDT Nurse Only Home Dialysis Clau [address] [place], [place] [address] Nurse, [address] [place] [address] 03/05/2024 1:00 PM EDT Office Visit Home Dialysis Clau [address] [place], [place] [address] [place], Peritoneal Dialysis [address] [place] [address] 03/11/2024 8:00 AM EDT Treatment Home Dialysis [facility]au [address] [place], [place] [address] Nurse, [address] [place] [address] 03/11/2024 1:00 PM EDT Nurse Only Home Dialysis Clau [address] [place], [place] [phone] Nurse, Lance [address] [place], [place] [address] 03/19/2024 1:00 PM EDT Office Visit Home Dialysis Clau [address] [place], [place] [address] [place], Peritoneal Dialysis [address] [place] [facility] [address] 04/11/2024 8:00 AM EDT Treatment Home Dialysis Clau [address] [place], [place] [address] Nurse, [address] [place] [address] 04/11/2024 1:00 PM EDT Nurse Only Home Dialysis [address] [place] [address] Nurse, [address] [place] [address] 04/29/2024 1:00 PM EDT Office Visit Home Dialysis [facility]au [address] [place], [place] [address] [place], Peritoneal Dialysis [address] [place] [address] 05/12/2024 8:00 AM EDT Treatment Home Dialysis Clau [address] [place], [place] [address] Nurse, Lance [address] Cristal [address] [place], [place] [address] 05/14/2024 1:00 PM EDT Nurse Only Home Dialysis [address]au [address] [place], [place] [phone] Nurse, Lance [address] [place], [place] [address] 06/07/2024 1:00 PM EDT Office Visit Home Dialysis Clau [address] [place], [place] [address] [place], Peritoneal Dialysis [address] [place] [facility] [address] 06/11/2024 8:00 AM EDT Treatment Home Dialysis Clau [address] [place], [place] [phone] Nurse, [address] [place] [address] 06/11/2024 1:00 PM EDT Nurse Only Home Dialysis [address] [place] [address] Nurse, [address] [place] [address] 06/25/2024 1:00 PM EDT Office Visit Home Dialysis Clau [address] [place], [place] [address] [place], Peritoneal Dialysis [address] [place] [address] 07/12/2024 8:00 AM EDT Treatment Home Dialysis Clau [address] [place], [place] [address] Nurse, Lance Lopez Cristal [address] [place], [place] [address] 07/12/2024 1:00 PM EDT Nurse Only Home Dialysis [facility] [address] [place], [place] [address] Nurse, Lance Lopez Cristal [address] [place], [place] [address] 07/22/2024 1:00 PM EST Office Visit Home Dialysis [facility]au [address] [place], [place] [id number] [place], Per[facility] Dialysis [address] [facility] [place] [address] 08/11/2024 8:00 AM EST Treatment Home Dialysis Clau [address] [place], [place] [address] Nurse, Lance [address] [place], [place] [address] 08/12/2024 1:00 PM EST Nurse Only Home Dialysis [address] [place], [place] [address] Nurse, Lance Lopez Cristal [address] [place], [place] [address] 08/20/2024 1:00 PM EST Office Visit Home Dialysis [facility]au [address] [place], [place] [id number] [place], Peritoneal Dialysis [address] [place], [place] [id number] Health Maintenance Due Date Last Done Comments [...] 6:21 AM EST 4 mcg Epoetin Sloan [address] UNIT/ML inj 7,600 Units 7,600 Units, Intravenous, [...] Advance Directives occurred with: Patient Care Teams Loan Teller Relationship Specialty Start Date End Date Tomer Garner MD [address] [facility] PCP - General 09/19/02 documented as of this encounter
--- OUTSIDE RECORDS SUMMARY | 2024-03-17 14:24 | External Medical Summary | Summary of Care ---
Author Name Unknown Organization [facility] Address [address] [place] [address] Phone [phone] Care Team Providers Care Crop Ranch Hand Name Role Phone Tomer Garner MD [...] UNITS ESRD Yonny Saldivar MD [address] [place] [address] [address] [place] [address] Referral ID Status Reason Start Date Expiration Date Visits Re quested Visits Authorized [id number] Closed 08/22/2023 02/21/2024 999 0 Encounter Details [...] (Oral) 1981,04/11 Pneumococcal Conjugate Vacci ne, 20-valent ([id number]) 11/17/2022 Pneumococcal Polysaccharide PPV23 (Pneumovax) 02/03/2004 Seasonal [...] [address] [place] [address] [id number] [facility], Peritoneal Dialysis [address] [facility] [place] [address] 12/11/2023 8:00 AM EDT Treatment Home Dialysis [facility] [address] [place] [address] [id number] Nurse, Lance Bee [address] [place], [place] [address] 12/11/2023 1:00 PM EDT Nurse Only Home Dialysis [address]au [address] [place], [place] [address] Nurse, [address] [place] [address] 12/26/2023 1:00 PM EDT Office Visit Home Dialysis [facility] [address] [place] [address] [facility] Dialysis [address] [place] [address] 01/10/2024 8:00 AM EDT Treatment Home Dialysis Clau [address] [place], [place] [phone] Nurse, Lance [address] [place], [place] [address] 01/10/2024 1:00 PM EDT Nurse Only Home Dialysis [facility] [address] [place], [place] [phone] Nurse, Lance [email or web address] [address] [place] [address] 02/08/2024 1:00 PM EDT Office Visit Home Dialysis [facility]au [address] [place], [place] [address] [facility] [place] Dialysis [address] [facility] [place] [address] 02/10/2024 8:00 AM EDT Treatment Home Dialysis Clau [address] [place], [place] [phone] Nurse, Lance [address] [place], [place] [address] 02/12/2024 1:00 PM EDT Nurse Only Home Dialysis [facility]au [address] [place], [place] [address] Nurse, [address] [place] [address] 03/05/2024 1:00 PM EDT Office Visit Home Dialysis Clau [address] [place], [place] [address] [facility] [place] Dialysis [address] [place] [address] 03/11/2024 8:00 AM EDT Treatment Home Dialysis Clau [address] [place], [place] [address] Nurse, [address] [place] [address] 03/11/2024 1:00 PM EDT Nurse Only Home Dialysis Clau [address] [place], [place] [phone] Nurse, Lance [address] [place], [place] [address] 03/19/2024 1:00 PM EDT Office Visit Home Dialysis Clau [address] [place], [place] [address] [facility] [place] Dialysis [address] [facility] [place] [address] 04/11/2024 8:00 AM EDT Treatment Home Dialysis Clua [address] [place], [place] [address] Nurse, [address] [place] [address] 04/11/2024 1:00 PM EDT Nurse Only Home Dialysis [address] [place] [address] Nurse, [address] [place] [address] 04/29/2024 1:00 PM EDT Office Visit Home Dialysis [facility]au [address] [place], [place] [address] [facility] [place] Dialysis [address] [place] [address] 05/12/2024 8:00 AM EDT Treatment Home Dialysis [facility]au [address] [place], [place] [address] Nurse, [address] [place], [place] [address] 05/14/2024 1:00 PM EDT Nurse Only Home Dialysis [address] [place], [place] [phone] Nurse, Lance [address] [place], [place] [address] 06/07/2024 1:00 PM EDT Office Visit Home Dialysis Clau [address] [place], [place] [address] [facility] [place] Dialysis [address] [facility] [place] [address] 06/11/2024 8:00 AM EDT Treatment Home Dialysis Clau [address] [place], [place] [phone] Nurse, Lance [address] [place] [address] 06/11/2024 1:00 PM EDT Nurse Only Home Dialysis [facility] [address] [place] [address] Nurse, [address] [place] [address] 06/25/2024 1:00 PM EDT Office Visit Home Dialysis [facility] [address] [place], [place] [address] [facility] [place] Dialysis [address] [facility] [place] [address] 07/12/2024 8:00 AM EDT Treatment Home Dialysis [facility] [address] [place], [place] [address] Nurse, Lance Lopez Cristal [address] [place], [place] [address] 07/12/2024 1:00 PM EDT Nurse Only Home Dialysis [facility] [address] [place], [place] [address] Nurse, Lance Lopez Cristal [address] [place], [place] [address] 07/22/2024 1:00 PM EST Office Visit Home Dialysis [facility] [address] [place], [place] [id number] [facility] [place] [facility]ialysis [address] [facility] [place] [address] 08/11/2024 8:00 AM EST Treatment Home Dialysis [facility] [address] [place], [place] [address] Nurse, Lance [address] [place], [place] [address] 08/12/2024 1:00 PM EST Nurse Only Home Dialysis [facility] [address] [place], [place] [address] Nurse, Lance Lopez Cristal [address] [place], [place] [address] 08/20/2024 1:00 PM EST Office Visit Home Dialysis [facility] [address] [place], [place] [id number] [facility] Dialysis [address] [place], [place] [address] Health Maintenance Due Date Last Done Comments [...] 6:21 AM EST 4 mcg Epoetin Sloan [address] UNIT/ML inj 7,600 Units 7,600 Units, Intravenous, [...] Advance Directives occurred with: Patient Care Teams Crop Ranch Hand Relationship Specialty Start Date End Date Tomer Garner MD [address] [facility] PCP - General 09/19/02 documented as of this encounter
--- OUTSIDE RECORDS SUMMARY | 2024-03-17 14:24 | External Medical Summary | Summary of Care ---
Author Name Unknown Organization [facility] Address [address] [place] [address] Phone [phone] Care Team Providers Care Utilization Manager Name Role Phone Tomer Garner MD Primary Care Provider Reason for Visit * Reason Onset Date Comments Medication Refill 11/21/2023 Encounter Details Date Type Department Care Team (Late st Contact Info) Description 11/21/2023 Refill [facility] Nephrology [address] [place] [address] Akosua Lopez MD [address] [place] [address] Allergies No known active allergiesdocumented [...] (Oral) 1981,04/11 Pneumococcal Conjugate Vacci ne, 20-valent ([id number]) 11/17/2022 Seasonal Influenza, PF, 6 M & [...] [address] [place] [address] Nurse, Lance Bee [address] [place] [address] 12/04/2023 1:00 PM EDT Office Visit Home Dialysis Hamzah [address] [place] [address] [address] [facility] Peritoneal Dialysis [address] [place] [address] 12/11/2023 8:00 AM EDT Treatment Home Dialysis Hamzah [address] [place], [place] [address] Nurse, Lancebaltazar Bee [address], [place] [address] 12/11/2023 1:00 PM EDT Nurse Only Home Dialysis Hamzah [address] [place] [address] Nurse, Lance Jessica Bee [address] [place] [address] 12/26/2023 1:00 PM EDT Office Visit Home Dialysis Hamzah [address] [place] [address] [facility] [place] Peritoneal Dialysis [address] [place] [address] 01/10/2024 8:00 AM EDT Treatment Home Dialysis Lance [address], [place] [address] Nurse, Lance [address] [employer] [address] [place] [address] 01/10/2024 1:00 PM EDT Nurse Only Home Dialysis Hamzah Lucas [address] [place], [place] [address] Nurse, Lance Drive [address] [place] [address] 02/08/2024 1:00 PM EDT Office Visit Home Dialysis Hamzah Lucas [address] [place] [address] [facility], Peritoneal Dialysis [address] [place] [address] 02/10/2024 8:00 AM EDT Treatment Home Dialysis Hamzah Lucas Dr [address] [place], [place] [phone] Nurse, Lance Drive [address] [address] [place] [address] 02/12/2024 1:00 PM EDT Nurse Only Home Dialysis Hamzah Lucas [address] [place], [place] [phone] Nurse, Lance Drive [employer] [address] [place] [address] 03/05/2024 1:00 PM EDT Office Visit Home Dialysis Hamzah Lucas Dr [address] [place], [place] [address] [facility] [place] Peritoneal Dialysis [address] [place] [address] 03/11/2024 8:00 AM EDT Treatment Home Dialysis Hamzah Lucas [address] [place] [address] Nurse, Lance [address] [employer] [address] [place] [address] 03/11/2024 1:00 PM EDT Nurse Only Home Dialysis Hamzah [address] [place] [address] Nurse, Lance [address] [employer] [address] [place], [place] [address] 03/19/2024 1:00 PM EDT Office Visit Home Dialysis Hamzah Lucas Dr [address] [place], [place] [address] [facility], Peritoneal Dialysis [address] [place] [address] 04/11/2024 8:00 AM EDT Treatment Home Dialysis Hamzah Lucas Dr [address] [place], [place] [phone] Nurse, Lance Drive [address] [place], [place] [address] 04/11/2024 1:00 PM EDT Nurse Only Home Dialysis Hamzah Lucas Dr [address] [place], [place] [phone] Nurse, Lance Drive [employer] [address] [place], [place] [address] 04/29/2024 1:00 PM EDT Office Visit Home Dialysis Hamzah Lucas Dr [address] [place], [place] [address] [facility] [place] Peritoneal Dialysis [address] [facility] [address] 05/12/2024 8:00 AM EDT Treatment Home Dialysis Hamzah Lucas Dr [address] [place], [place] [address] Nurse, Lance [address] [employer] [address] [place] [address] 05/14/2024 1:00 PM EDT Nurse Only Home Dialysis Hamzah Lucas Dr [address] [place] [address] Nurse, Lance [address] [employer] [address] [place], [place] [address] 06/07/2024 1:00 PM EDT Office Visit Home Dialysis Hamzah Lucas Dr [address] [place], [place] [address] [facility], Peritoneal Dialysis [address] [place] [address] 06/11/2024 8:00 AM EDT Treatment Home Dialysis Hamzah Lucas Dr [address] [place], [place] [phone] Nurse, Lance Drive [employer] [address] [place], [place] [address] 06/11/2024 1:00 PM EDT Nurse Only Home Dialysis Hamzah Lucas Dr [address] [place], [place] [phone] Nurse, Lance Drive [facility] [address] [place], [place] [address] 06/25/2024 1:00 PM EDT Office Visit Home Dialysis Hamzah Lucas Dr [address] [place], [place] [address] [facility] [place] Peritoneal Dialysis [address] [facility] [address] 07/12/2024 8:00 AM EDT Treatment Home Dialysis Hamzah Lucas Dr [address] [place], [place] [phone] Nurse, Lance [employer] [address] [place], [place] [address] 07/12/2024 1:00 PM EDT Nurse Only Home Dialysis Hamzah Lucas Dr [address] [place], [place] [phone] Nurse, Lance Drive [facility] [address] [place], [place] [address] 07/22/2024 1:00 PM EST Office Visit Home Dialysis Hamzah Lucas Dr [address] [place], [place] [address] [facility] [place] [address] [facility] [place] [address] 08/11/2024 8:00 AM EST Treatment Home Dialysis Hamzah Lucas [address] [place], [place] [phone] Nurse, Lance [employer] [address] [place], [place] [id number] 08/12/2024 1:00 PM EST Nurse Only Home Dialysis Hamzah Lucas Dr [address] [place], [place] [phone] Nurse, Lance Drive [employer] [address] [place], [place] [address] 08/20/2024 1:00 PM EST Office Visit Home Dialysis Hamzah Lucas Dr [address] [place], [place] [phone] [facility], Peritoneal Dialysis [address] [place], [place] [id number] Health Maintenance Due Date Last Done Comments [...] Advance Directives occurred with: Patient Care Teams Utilization Manager Relationship Specialty Start Date End Date Tomer Garner MD [address] [place] [address] PCP - General 09/19/02 documented as of this encounter
--- OUTSIDE RECORDS SUMMARY | 2024-03-17 14:24 | External Medical Summary | Summary of Care ---
Author Name Unknown Organization [facility] Address [address] [place] [address] Phone [phone] Care Team Providers Care Chief Cloth Finishing Range Operator Name Role Phone Tomer Garner MD Primary Care Provider Reason for Visit * Reason Comments Hemodialysis * Episode Based Medications (Routine) - Closed Specialty Diagnoses / Procedures Referred By Contac t Referred To Contact Diagnoses ESRD on peritoneal dialysis (HCC) 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 chronic kidney disease, not on chronic dialysis (HCC) Procedures NM EPOETIN SLOAN, NON-ESRD NM EPOETIN SLOAN, 100 UNITS ESRD Yonny Saldivar MD [address] [place] [address] [address] [place] [address] Referral ID Status Reason Start Date Expiration Date Visits Re quested Visits Authorized [id number] Closed 08/22/2023 02/21/2024 999 0 Encounter Details [...] (Oral) 1981,04/11 Pneumococcal Conjugate Vacci ne, 20-valent ([id number]) 11/17/2022 Seasonal Influenza, PF, 6 M & [...] [address]au [address] [place] [address] [facility], Peritoneal Dialysis [address] [place] [address] 12/11/2023 8:00 AM EDT Treatment Home Dialysis Clau [address] [place] [address] Nurse, Lance Lopez [address] [place] [address] 12/11/2023 1:00 PM EDT Nurse Only Home Dialysis Clau [address] [place], [place] [phone] Nurse, Lance Drive [employer] [address] [place], [place] [address] 12/26/2023 1:00 PM EDT Office Visit Home Dialysis Clau [address] [place], [place] [address] [facility] [place] Peritoneal Dialysis [address] [place] [address] 01/10/2024 8:00 AM EDT Treatment Home Dialysis Clau Lucas Dr [address] [place], [place] [phone] Nurse, Lance [address] [employer] [address] [place], [place] [address] 01/10/2024 1:00 PM EDT Nurse Only Home Dialysis Clau [address] Dr [address] [place], [place] [phone] Nurse, Lance Drive [employer] [address] [place], [place] [address] 02/08/2024 1:00 PM EDT Office Visit Home Dialysis Clau [address] [place], [place] [address] [facility] [place], Peritoneal Dialysis [address] [place] [address] 02/10/2024 8:00 AM EDT Treatment Home Dialysis Clau [address] [place], [place] [address] Nurse, Lance [address] [address] [place], [place] [address] 02/12/2024 1:00 PM EDT Nurse Only Home Dialysis Clau [address] [place], [place] [phone] Nurse, Lance [address] [employer] [address] [place], [place] [address] 03/05/2024 1:00 PM EDT Office Visit Home Dialysis Clau [address] [place], [place] [address] [facility], Peritoneal Dialysis [address] [place], [place] [address] 03/11/2024 8:00 AM EDT Treatment Home Dialysis Clau [address] Dr [address] [place], [place] [phone] Nurse, Lance Drive [employer] [address] [place], [place] [address] 03/11/2024 1:00 PM EDT Nurse Only Home Dialysis Clau [address] [place], [place] [phone] Nurse, Lance Drive [employer] [address] [place], [place] 03/19/2024 1:00 PM EDT Office Visit Home Dialysis Clau [address] [place], [place] [address] [facility] [place] Peritoneal Dialysis [address] [facility] [place] [address] 04/11/2024 8:00 AM EDT Treatment Home Dialysis Clau [address] [place], [place] [phone] Nurse, Lance [address] [place], [place] [address] 04/11/2024 1:00 PM EDT Nurse Only Home Dialysis Clau [address] [place], [place] [phone] Nurse, Lance [address] [place], [place] [address] 04/29/2024 1:00 PM EDT Office Visit Home Dialysis Clau [address] [place] [address] [facility] [place] Peritoneal Dialysis [address] [place] [address] 05/12/2024 8:00 AM EDT Treatment Home Dialysis Clau [address] [place], [place] [address] Nurse, Lance [email or web address] [address] [place], [place] [address] 05/14/2024 1:00 PM EDT Nurse Only Home Dialysis Clau [address] [place], [place] [phone] Nurse, Lance [email or web address] [address] [place], [place] [address] 06/07/2024 1:00 PM EDT Office Visit Home Dialysis Clau [address] Dr [address] [place], [place] [address] [facility] [place] Peritoneal Dialysis [address] [place] [facility] [place] [address] 06/11/2024 8:00 AM EDT Treatment Home Dialysis Clau [address] [place], [place] [phone] Nurse, [employer] [address] [place], [place] [address] 06/11/2024 1:00 PM EDT Nurse Only Home Dialysis Clau [address] [place], [place] [phone] Nurse, Lance [email or web address] [address] [place], [place] [address] 06/25/2024 1:00 PM EDT Office Visit Home Dialysis Clau [address] [place], [place] [address] [facility] [place] Peritoneal Dialysis [address] [place] [facility] [place] [address] 07/12/2024 8:00 AM EDT Treatment Home Dialysis [address]au [address] [place] [address] Nurse, Lance Lopez [address] [place], [place] [address] 07/12/2024 1:00 PM EDT Nurse Only Home Dialysis Cl[address] [place], [place] [phone] Nurse, Lance Lopez [address] [place], [place] [address] 07/22/2024 1:00 PM EST Office Visit Home Dialysis Clau [address] [place], [place] [phone] [facility] [place], Peritoneal Dialysis [address] [facility] [place] [address] 08/11/2024 8:00 AM EST Treatment Home Dialysis Clau [address] [place], [place] [phone] Nurse, Lance Lopez [address] [place], [place] [address] 08/12/2024 1:00 PM EST Nurse Only Home Dialysis Cl[address] [place], [place] [phone] Nurse, Lance Lopez [address] [place], [place] [address] 08/20/2024 1:00 PM EST Office Visit Home Dialysis Clau [address] [place], [place] [address] [facility] [place] Peritoneal Dialysis [address] [place] [address] Health Maintenance Due Date Last Done Comments [...] 6:45 AM EST 4 mcg Epoetin Sloan [address] UNIT/ML inj 7,600 Units 7,600 Units, Intravenous, [...] Advance Directives occurred with: Patient Care Teams Chief Cloth Finishing Range Operator Relationship Specialty Start Date End Date Tomer Garner MD [address] [facility] [place] [address] PCP - General 09/19/02 documented as of this encounter
--- OUTSIDE RECORDS SUMMARY | 2024-03-17 14:25 | External Medical Summary | Summary of Care ---
Author Name Unknown Organization [facility] Address [address] [place] [address] Phone [phone] Care Team Providers Care Psychiatric Aides Teacher Name Role Phone Tomer Garner MD Primary Care Provider [phone] Reason for Visit * Reason Comments Hemodialysis * Episode Based Medications (Routine) - Closed Specialty Diagnoses / Procedures Referred By Contac t Referred To Contact Diagnoses ESRD on peritoneal dialysis (HCC) 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 chronic kidney disease, not on chronic dialysis (HCC) Procedures AR EPOETIN SLOAN, NON-ESRD AR EPOETIN SLOAN, 100 UNITS ESRD Yonny Saldivar MD [address] [place] [address] [address] [place] [address] Referral ID Status Reason Start Date Expiration Date Visits Re quested Visits Authorized [id number] Closed 08/22/2023 02/21/2024 999 0 Encounter Details Date Type Department Care Team (Late st Contact Info) Description 09/23/2023 5:30 AM EST Treatment Hemodialysis Ham[address] [place] [address] ESRD (end stage renal disease) (HCC)*; Anemia of chronic renal failure, stage 5 (HCC); Anemia in chronic kidney disease, on chronic dialysis (HCC); Anemia in chronic renal disease; ESRD on peritoneal dialysis (HCC); 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 chronic kidney disease, not on chronic dialysis (HCC) Allergies No known active allergiesdocumented as of this encounter (statuses as of 11/16/2023) Medications Medication Sig Dispensed Refills Start Date [...] as of this encounter (statuses as of 11/16/2023) Active Problems Problem Noted Date Diagnosed Date [...] as of this encounter (statuses as of 11/16/2023) Resolved Problems Problem Noted Date Diagnosed Date [...] as of this encounter (statuses as of 11/16/2023) Immunizations Name Administration Dates Next Due COVID-19 mRNA, LNP-s, No Pre serve, 2-Dose Series (Moderna) 11/23/2020,10/18/2020 DTP Vaccine 1981,1981,1981 HEP B - Hepatitis B (Dialysis/Immumocomp Pt) 05/02/2023,04/04/2023 MMR - Measles/Mumps/Rubella Vaccine 05/11/1982 OPV - Polio Virus Vaccine (Oral) 1981,04/11 Pneumococcal Conjugate Vacci ne, 20-valent ([id number]) 11/17/2022 Seasonal Influenza, PF, 6 M & [...] Sign Reading Time Taken Comments Blood Pressure 126/76 09/23/2023 9:50 AM EST Pulse 82 09/23/2023 9:50 AM EST Temperature 37.2 C (99 F) 09/23/2023 9:39 AM EST Respiratory Rate 12 09/23/2023 9:39 AM EST Oxygen Saturation - - Inhaled [...] [address]zah [address] Dr [address] [place] [address] [facility], Peritoneal Dialysis [address] [place] [address] 12/11/2023 8:00 AM EDT Treatment Home Dialysis Hamzah [address] Dr [address] [place] [address] Nurse, Lance Lopez [employer] [address] [phone] 12/11/2023 1:00 PM EDT Nurse Only Home Dialysis Hamzah [address] [place], [place] [address] Nurse, Lance [address] [place], [place] [address] 12/26/2023 1:00 PM EDT Office Visit Home Dialysis Hamzah Lucas Dr [address] [place], [place] [address] [facility] [place] Peritoneal Dialysis [address] [place] [address] 01/10/2024 8:00 AM EDT Treatment Home Dialysis Hamzah [address] Dr [address] [place], [place] [address] Nurse, Lance [address] [place], [place] [address] 01/10/2024 1:00 PM EDT Nurse Only Home Dialysis Hamzah [address] Dr [address] [place], [place] [phone] Nurse, Lance [address] [place], [place] [address] 02/08/2024 1:00 PM EDT Office Visit Home Dialysis Hamzah [address] Dr [address] [place], [place] [address] [facility] [place] Peritoneal Dialysis [address] [facility] [facility] [place] [address] 02/10/2024 8:00 AM EDT Treatment Home Dialysis Hamzah [address] Dr [address] [place], [place] [address] Nurse, Lance [address] [place], [place] [address] 02/12/2024 1:00 PM EDT Nurse Only Home Dialysis Hamzah [address] [place], [place] [address] Nurse, Lance [address] [employer] [place], [place] [address] 03/05/2024 1:00 PM EDT Office Visit Home Dialysis Hamzah [address] [place], [place] [address] [facility] [place] Peritoneal Dialysis [address] [place] [address] 03/11/2024 8:00 AM EDT Treatment Home Dialysis Hamzah [address] Dr [address] [place], [place] [phone] Nurse, Lance [address] [employer] [address] [place], [place] [address] 03/11/2024 1:00 PM EDT Nurse Only Home Dialysis Hamzah [address] [place], [place] [phone] Nurse, [employer] [address] [place], [place] [address] 03/19/2024 1:00 PM EDT Office Visit Home Dialysis Hamzah [address] [place], [place] [address] [facility] [place] Peritoneal Dialysis [address] [place] [facility] [facility] [place] [address] 04/11/2024 8:00 AM EDT Treatment Home Dialysis Hamzah [address] [place], [place] [phone] Nurse, Lance [employer] [address] [place], [place] [address] 04/11/2024 1:00 PM EDT Nurse Only Home Dialysis Hamzah [address] [place], [place] [phone] Nurse, Lance [employer] [address] [place], [place] [address] 04/29/2024 1:00 PM EDT Office Visit Home Dialysis Hamzah [address] [place], [place] [address] [facility], Peritoneal Dialysis [address] [place] [facility] [facility] [place] [address] 05/12/2024 8:00 AM EDT Treatment Home Dialysis Hamzah [address] [place], [place] [address] Nurse, Lance [employer] [address] [place], [place] [address] 05/14/2024 1:00 PM EDT Nurse Only Home Dialysis Hamzah [address] [place], [place] [phone] Nurse, Lance [employer] [address] [place], [place] [address] 06/07/2024 1:00 PM EDT Office Visit Home Dialysis Hamz[address] [place], [place] [address] [facility] [place] Peritoneal Dialysis [address] [facility], [place] [address] 06/11/2024 8:00 AM EDT Treatment Home Dialysis Hamz[address] [place], [place] [phone] Nurse, [employer] [address] [place], [place] [address] 06/11/2024 1:00 PM EDT Nurse Only Home Dialysis Hamz[address] [place], [place] [phone] Nurse, [employer] [address] [place], [place] [address] 06/25/2024 1:00 PM EDT Office Visit Home Dialysis [facility] [place], [place] [address] [facility] [place] Peritoneal Dialysis [address] [place] [facility] [facility] [place] [address] 07/12/2024 8:00 AM EDT Treatment Home Dialysis [facility] [place], [place] [address] Nurse, Lancebaltazar Bee [address] [place], [place] [address] 07/12/2024 1:00 PM EDT Nurse Only Home Dialysis [facility] [place], [place] [phone] Nurse, Lance Lopez [address] [place], [place] [phone] 07/22/2024 1:00 PM EST Office Visit Home Dialysis [facility]z[address] [place], [place] [phone] [facility] [place] Peritoneal Dialysis [address] [place], [place] [address] 08/11/2024 8:00 AM EST Treatment Home Dialysis Hamzah [address] [place], [place] [phone] Nurse, Lance Lopez [address] [place], [place] [address] 08/12/2024 1:00 PM EST Nurse Only Home Dialysis Hamzah [address] Dr [place], [place] [phone] Nurse, Lance Lopez [address] [place], [place] [address] 08/20/2024 1:00 PM EST Office Visit Home Dialysis Hamzah [address] [place], [place] [address] [facility] [place] Peritoneal Dialysis [address] [place] [address] Health Maintenance Due Date Last Done Comments [...] chronic kidney disease, on chronic dialysis (HCC) ESRD on peritoneal dialysis (HCC) End stage renal disease 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 chronic kidney disease, not on chronic dialysis (HCC) documented in this encounter Administered Medications Inactive Administered Medications - up to 3 most recent administrations Medication Order MAR Action Action Date Dose Rate Site Doxercalciferol (Hectorol) 2 MCG/ML inj 4 mcg 4 mcg, Intravenous, ONCE, On 09/23/23 at 0700, For 1 dose Given 09/23/2023 6:59 AM EST 4 mcg Epoetin Sloan [address] UNIT/ML inj 7,600 Units 7,600 Units, Intravenous, ONCE, On 09/23/23 at 0700, For 1 dose Given 09/23/2023 6:58 AM EST 7,600 Units hEParin 1,000 unit/mL infusion for dialysis 500 Units/hr (0.5 mL/hr), Hemodialysis, CONTINUOUS, Starting on 09/23/23 at 0700, Until 09/23/23 at 1403, Maintenance: Stop 1 hour before dialysis end in AVF/AVG. Continue through dialysis in CVC. The total delivered dose is approximately 2,500 to 5,000 units, based on weight and treatment duration assumptions New Bag 09/23/2023 7:00 AM EST 500 Units/hr 0.5 mL/hr hEParin 1000 UNIT/ML inj 2,000 Units 2,000 Units, Intravenous, ONCE, On 09/23/23 at 0700, For 1 dose, Loading dose Given 09/23/2023 7:00 AM EST 2,000 Units sodium citrate 4% (Anticoagulant Sodium Citrate) inj 2.5 mL 2.5 mL, Dialysis catheter, ONCE, On 09/23/23 at 0700, For 1 dose, ARTERIAL For use only to lock dialysis catheter after dialysis Given 09/23/2023 6:58 AM EST 2.5 mL sodium citrate 4% (Anticoagulant Sodium Citrate) inj 2.5 mL 2.5 mL, Dialysis catheter, ONCE, On 09/23/23 at 0700, For 1 dose, VENOUS For use only to lock dialysis catheter after dialysis Given 09/23/2023 6:58 AM EST 2.5 mL documented in this [...] Advance Directives occurred with: Patient Care Teams Psychiatric Aides Teacher Relationship Specialty Start Date End Date Tomer Garner MD [address] [place] [address] PCP - General 09/19/02 documented as of this encounter
--- OUTSIDE RECORDS SUMMARY | 2024-03-17 14:25 | External Medical Summary | Summary of Care ---
Author Name Unknown Organization [facility] Address [address] [place] [address] Phone [phone] Care Team Providers Care Underwater Trapper Name Role Phone Tomer Garner MD Primary Care Provider Reason for Visit * Reason Comments Hemodialysis * Episode Based Medications (Routine) - Closed Specialty Diagnoses / Procedures Referred By Contac t Referred To Contact Diagnoses ESRD on peritoneal dialysis (HCC) 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 chronic kidney disease, not on chronic dialysis (HCC) Procedures VT EPOETIN SLOAN, NON-ESRD VT EPOETIN SLOAN, 100 UNITS ESRD Yonny Saldivar MD [address] [place] [address] [address] [place] [address] Referral ID Status Reason Start Date Expiration Date Visits Re quested Visits Authorized [id number] Closed 08/22/2023 02/21/2024 999 0 Encounter Details [...] (Oral) 1981,04/11 Pneumococcal Conjugate Vacci ne, 20-valent ([id number]) 11/17/2022 Seasonal Influenza, PF, 6 M & [...] [address] [place] [address] [facility], Peritoneal Dialysis [address] [place] [address] 12/11/2023 8:00 AM EDT Treatment Home Dialysis [facility] [address] [place] [address] Nurse, Lance Lopez [employer] [address] [place] [id number] 12/11/2023 1:00 PM EDT Nurse Only Home Dialysis [facility] [place], [place] [address] Nurse, Lance [address] [facility] [place], [place] [address] 12/26/2023 1:00 PM EDT Office Visit Home Dialysis [facility] [place], [place] [address] [facility], Peritoneal Dialysis [address] [place] [address] 01/10/2024 8:00 AM EDT Treatment Home Dialysis [facility] [address] [place], [place] [address] Nurse, Lance [address] Crist[address] [place], [place] [address] 01/10/2024 1:00 PM EDT Nurse Only Home Dialysis [facility] [place], [place] [phone] Nurse, Lance [address] [facility] [place], [place] [address] 02/08/2024 1:00 PM EDT Office Visit Home Dialysis [facility] [place], [place] [address] [facility], Peritoneal Dialysis [address] [place] [facility] [address] 02/10/2024 8:00 AM EDT Treatment Home Dialysis [facility]zah [address] [place], [place] [address] Nurse, Lance [address] [facility] [address] [place], [place] [address] 02/12/2024 1:00 PM EDT Nurse Only Home Dialysis [facility] [place], [place] [address] Nurse, Lance [address] [employer] [place], [place] [address] 03/05/2024 1:00 PM EDT Office Visit Home Dialysis [facility] [place], [place] [address] [facility], Peritoneal Dialysis [address] [place] [address] 03/11/2024 8:00 AM EDT Treatment Home Dialysis Hamz[facility] [address] [place], [place] [phone] Nurse, Lance [address] [employer] [address] [place], [place] [address] 03/11/2024 1:00 PM EDT Nurse Only Home Dialysis [facility] [place], [place] [phone] Nurse, [employer] [address] [place], [place] [address] 03/19/2024 1:00 PM EDT Office Visit Home Dialysis [facility] [place], [place] [address] [facility], Peritoneal Dialysis [address] [place] [facility] [address] 04/11/2024 8:00 AM EDT Treatment Home Dialysis Hazmah [address] [place], [place] [phone] Nurse, Lance [employer] [address] [place], [place] [address] 04/11/2024 1:00 PM EDT Nurse Only Home Dialysis [facility] [place], [place] [phone] Nurse, Lance [employer] [address] [place], [place] [address] 04/29/2024 1:00 PM EDT Office Visit Home Dialysis [facility] [address] [place], [place] [address] [facility], Peritoneal Dialysis [address] [place] [facility] [address] 05/12/2024 8:00 AM EDT Treatment Home Dialysis Hamz[facility] [address] [place], [place] [address] Nurse, Lance [employer] [address] [place], [place] [address] 05/14/2024 1:00 PM EDT Nurse Only Home Dialysis [facility] [place], [place] [phone] Nurse, Lance [employer] [address] [place], [place] [address] 06/07/2024 1:00 PM EDT Office Visit Home Dialysis [facility] [place], [place] [address] [facility], Peritoneal Dialysis [address] [facility], [place] [address] 06/11/2024 8:00 AM EDT Treatment Home Dialysis Ham[facility] [address] [place], [place] [phone] Nurse, [employer] [address] [place], [place] [address] 06/11/2024 1:00 PM EDT Nurse Only Home Dialysis Hamzah [address] [place], [place] [phone] Nurse, [employer] [address] [place], [place] [address] 06/25/2024 1:00 PM EDT Office Visit Home Dialysis Ham[facility]ah [address] [place], [place] [address] [facility], Peritoneal Dialysis [address] [place] [facility] [address] 07/12/2024 8:00 AM EDT Treatment Home Dialysis Ham[facility] [address] [place], [place] [address] Nurse, Lancebaltazar Bee [address] [place], [place] [address] 07/12/2024 1:00 PM EDT Nurse Only Home Dialysis [facility] [address] [place], [place] [id number] Nurse, Lance Lopez [facility] [address] [place], [place] [id number] 07/22/2024 1:00 PM EST Office Visit Home Dialysis [facility] [address] [place], [place] [id number] [facility], Peritoneal Dialysis [address] [place], [place] [id number] 08/11/2024 8:00 AM EST Treatment Home Dialysis Hamzah [address] [place], [place] [id number] Nurse, Lance Lopez [facility] [address] [place], [place] [address] 08/12/2024 1:00 PM EST Nurse Only Home Dialysis Hamzah [address] [place], [place] [phone] Nurse, Lance Lopez [facility] [address] [place], [place] [address] 08/20/2024 1:00 PM EST Office Visit Home Dialysis [facility] [address] [place], [place] [address] [facility], Peritoneal Dialysis [address] [place] [address] Health Maintenance Due Date Last Done Comments [...] 6:59 AM EST 4 mcg Epoetin Sloan [address] UNIT/ML inj 7,600 Units 7,600 Units, Intravenous, [...] Advance Directives occurred with: Patient Care Teams Underwater Trapper Relationship Specialty Start Date End Date Tomer Garner MD [address] [place] [address] PCP - General 09/19/02 documented as of this encounter
--- OUTSIDE RECORDS SUMMARY | 2024-03-17 14:25 | External Medical Summary | Summary of Care ---
Author Name Unknown Organization [facility] Address [address] [place] [address] Phone [phone] Care Team Providers Care Tire Buster Name Role Phone Tomer aGrner MD Primary Care Provider [phone] Reason for Visit * Reason Comments Hemodialysis * Episode Based Medications (Routine) - Closed Specialty Diagnoses / Procedures Referred By Contac t Referred To Contact Diagnoses ESRD on peritoneal dialysis (HCC) 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 chronic kidney disease, not on chronic dialysis (HCC) Procedures ME EPOETIN SLOAN, NON-ESRD ME EPOETIN SLOAN, 100 UNITS ESRD Yonny Saldivar MD [address] [place] [address] D[address] [facility] [place] [address] Referral ID Status Reason Start Date Expiration Date Visits Re quested Visits Authorized [id number] Closed 08/22/2023 02/21/2024 999 0 Encounter Details [...] (Oral) 1981,04/11 Pneumococcal Conjugate Vacci ne, 20-valent ([id number]) 11/17/2022 Seasonal Influenza, PF, 6 M & [...] [address] [place] [address] [facility], Peritoneal Dialysis [address] [place] [address] 12/11/2023 8:00 AM EDT Treatment Home Dialysis Ham[facility] [address] [place] [address] Nurse, Lance Lopez [employer] [address] [phone] 12/11/2023 1:00 PM EDT Nurse Only Home Dialysis Hamzah [address] [place], [place] [address] Nurse, [address] [facility] [place], [place] [address] 12/26/2023 1:00 PM EDT Office Visit Home Dialysis Hamzah [address] Dr [address] [place], [place] [address] [facility] [place]ialysis [address] [place] [address] 01/10/2024 8:00 AM EDT Treatment Home Dialysis Hamzah [address] Dr [address] [place], [place] [address] Nurse, [address] [facility] [address] [place], [place] [address] 01/10/2024 1:00 PM EDT Nurse Only Home Dialysis Hamzah [address] [place], [place] [phone] Nurse, Lance [address] [facility] [place], [place] [address] 02/08/2024 1:00 PM EDT Office Visit Home Dialysis Hamzah [address] [place], [place] [address] [facility] [place] Dialysis [address] [place] [facility] [address] 02/10/2024 8:00 AM EDT Treatment Home Dialysis Hamzah [address] Dr [address] [place], [place] [address] Nurse, [address] [place], [place] [address] 02/12/2024 1:00 PM EDT Nurse Only Home Dialysis Hamzah [address] [place], [place] [address] Nurse, [address] [employer] [place], [place] [address] 03/05/2024 1:00 PM EDT Office Visit Home Dialysis [facility] [address] [place], [place] [address] [facility] [place] Dialysis [address] [place] [address] 03/11/2024 8:00 AM EDT Treatment Home Dialysis Hamzah [address] [place], [place] [phone] Nurse, Lance [address] [employer] [address] [place], [place] [address] 03/11/2024 1:00 PM EDT Nurse Only Home Dialysis [facility] [place], [place] [phone] Nurse, Nyxoah [employer] [address] [place], [place] [address] 03/19/2024 1:00 PM EDT Office Visit Home Dialysis Hamzah [address] [place], [place] [address] [facility] [place] [facility]ialysis [address] [place] [facility] [place] [address] 04/11/2024 8:00 AM EDT Treatment Home Dialysis Hamzah [address] [place], [place] [phone] Nurse, Lance Sightly [employer] [address] [place], [place] [address] 04/11/2024 1:00 PM EDT Nurse Only Home Dialysis [facility] [place], [place] [phone] Nurse, Lance S[employer]ly [facility] [address] [place], [place] [address] 04/29/2024 1:00 PM EDT Office Visit Home Dialysis Hamzah [address] [place], [place] [address] [facility], Peritoneal Dialysis [address] [place] [facility] [address] 05/12/2024 8:00 AM EDT Treatment Home Dialysis [facility] [address] [place], [place] [address] Nurse, Lance Sightly [facility] [address] [place], [place] [address] 05/14/2024 1:00 PM EDT Nurse Only Home Dialysis Hamzah [address] [place], [place] [phone] Nurse, Lance Sightly [facility] [address] [place], [place] [address] 06/07/2024 1:00 PM EDT Office Visit Home Dialysis Hamzah [address] [place], [place] [address] [facility] [place]ialysis [address] [facility], [place] [address] 06/11/2024 8:00 AM EDT Treatment Home Dialysis Hamz[facility] [address] [place], [place] [phone] Nurse, Nyxoah [facility] [address] [place], [place] [address] 06/11/2024 1:00 PM EDT Nurse Only Home Dialysis Ham[facility]ah [address] [place], [place] [phone] Nurse, Nyxoah [facility] [address] [place], [place] [address] 06/25/2024 1:00 PM EDT Office Visit Home Dialysis Ham[facility]ah [address] [place], [place] [address] [facility] [place] [facility]ialysis [address] [place] [facility] [place] [address] 07/12/2024 8:00 AM EDT Treatment Home Dialysis Hamzah [address] [place], [place] [address] Nurse, Lancebaltazar Bee [address] [place], [place] [address] 07/12/2024 1:00 PM EDT Nurse Only Home Dialysis Ham[facility] [address] [place], [place] [phone] Nurse, Lance Lopez [facility] [address] [place], [place] [id number] 07/22/2024 1:00 PM EST Office Visit Home Dialysis Ham[facility] [address] [place], [place] [id number] [facility] [place] Dialysis [address] [place], [place] [id number] 08/11/2024 8:00 AM EST Treatment Home Dialysis Hamzah [address] [place], [place] [phone] Nurse, Lance Lopez [facility] [address] [place], [place] [address] 08/12/2024 1:00 PM EST Nurse Only Home Dialysis Hamzah Lucas Dr [place], [place] [phone] Nurse, Lance Lopez [facility] [address] [place], [place] [address] 08/20/2024 1:00 PM EST Office Visit Home Dialysis Hamzah [address] [place], [place] [address] [facility] [place] Dialysis [address] [place] [address] Health Maintenance Due Date Last Done Comments [...] 6:59 AM EST 4 mcg Epoetin Sloan [address] UNIT/ML inj 7,600 Units 7,600 Units, Intravenous, [...] Advance Directives occurred with: Patient Care Teams Tire Buster Relationship Specialty Start Date End Date Tomer Garner MD [address] [place] [address] PCP - General 09/19/02 documented as of this encounter
--- OUTSIDE RECORDS SUMMARY | 2024-03-17 14:25 | External Medical Summary | Summary of Care ---
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 chronic kidney disease, not on chronic dialysis (HCC) Procedures LA EPOETIN SLOAN, NON-ESRD LA EPOETIN SLOAN, 100 UNITS ESRD Yonny Saldivar MD [address] [place] [address] [address] [place] [address] Referral ID Status Reason Start Date Expiration Date Visits Re quested Visits Authorized [id number] Closed 08/22/2023 02/21/2024 999 0 Encounter Details Date Type Department Care Team (Late st Contact Info) Description 09/21/2023 5:30 AM EST Treatment Hemodialysis [facility] [place] [address] [address] ESRD (end stage renal disease) (HCC)*; Anemia of chronic renal failure, stage 5 (HCC); Anemia in chronic kidney disease, on chronic dialysis (HCC); ESRD on peritoneal dialysis (HCC); Anemia in [...] (Oral) 1981,04/11 Pneumococcal Conjugate Vacci ne, 20-valent ([id number]) 11/17/2022 Seasonal Influenza, PF, 6 M & [...] Reading Time Taken Comments Blood Pressure 130/82 09/21/2023 9:47 AM EST Pulse 77 09/21/2023 9:47 AM EST Temperature 37.5 C (99.5 F) 09/21/2023 9:47 AM ES T Respiratory Rate 18 09/21/2023 9:47 AM EST Oxygen Saturation - - Inhaled [...] [address] [place] [address] [facility]dc, Peritoneal Dialysis [address] [place] [address] 12/11/2023 8:00 AM EDT Treatment Home Dialysis Hamz[facility] [address] [place] [address] Nurse, Lance Lopez [employer] [address] [place] [address] 12/11/2023 1:00 PM EDT Nurse Only Home Dialysis [facility] [address] [place], [place] [phone] Nurse, Lance [address] [employer] [address] [place], [place] [address] 12/26/2023 1:00 PM EDT Office Visit Home Dialysis Hamzah [address] [place], [place] [address] [facility], Peritoneal Dialysis [address] [place] [address] 01/10/2024 8:00 AM EDT Treatment Home Dialysis Hamzah [address] [place], [place] [phone] Nurse, Lance [address] [employer] [address] [place], [place] [address] 01/10/2024 1:00 PM EDT Nurse Only Home Dialysis Hamzah [address] [place], [place] [phone] Nurse, Lance [address] [employer] [address] [place], [place] [address] 02/08/2024 1:00 PM EDT Office Visit Home Dialysis Hamzah [address] [place], [place] [address] [facility], Peritoneal Dialysis [address] [facility] [place] [address] 02/10/2024 8:00 AM EDT Treatment Home Dialysis Hamzah [address] [place], [place] [phone] Nurse, Lance [address] [place], [place] [address] 02/12/2024 1:00 PM EDT Nurse Only Home Dialysis Hamzah [address] [place], [place] [phone] Nurse, Lance [address] [employer] [address] [place], [place] [address] 03/05/2024 1:00 PM EDT Office Visit Home Dialysis Hamzah [address] [place], [place] [address] [facility] [place] [facility]ialysis [address] [place] [address] 03/11/2024 8:00 AM EDT Treatment Home Dialysis Hamzah [address] [place], [place] [phone] Nurse, Lance [address] [employer] [address] [place], [place] 03/11/2024 1:00 PM EDT Nurse Only Home Dialysis Hamzah [address] [place], [place] [phone] Nurse, Lance Enubila [employer] [address] [place], [place] 03/19/2024 1:00 PM EDT Office Visit Home Dialysis Hamzah [address] [place], [place] [address] [facility], Peritoneal Dialysis [address] [facility] [address] 04/11/2024 8:00 AM EDT Treatment Home Dialysis Hamzah [address] [place], [place] [phone] Nurse, Lance Enubila [facility] [address] [place], [place] [address] 04/11/2024 1:00 PM EDT Nurse Only Home Dialysis Hamzah [address] [place], [place] [phone] Nurse, [place] [facility] [address] [place], [place] [address] 04/29/2024 1:00 PM EDT Office Visit Home Dialysis Hamzah [address] [place], [place] [address] [facility], Peritoneal Dialysis [address] [facility] [place] [address] 05/12/2024 8:00 AM EDT Treatment Home Dialysis Ham[facility] [address] [place], [place] [phone] Nurse, Lance Enubila [facility] [address] [place], [place] [address] 05/14/2024 1:00 PM EDT Nurse Only Home Dialysis [facility] [place], [place] [phone] Nurse, Lance Enubila [facility] [address] [place], [place] [address] 06/07/2024 1:00 PM EDT Office Visit Home Dialysis [facility] [place], [place] [address] [facility], Peritoneal Dialysis [address] [facility], [place] [address] 06/11/2024 8:00 AM EDT Treatment Home Dialysis [facility] [address] [place], [place] [phone] Nurse, Lance Enubila [facility] [address] [place], [place] [address] 06/11/2024 1:00 PM EDT Nurse Only Home Dialysis [facility] [address] [place], [place] [phone] Nurse, Lance Enubila [facility] [address] [place], [place] [address] 06/25/2024 1:00 PM EDT Office Visit Home Dialysis [facility] [address] [place], [place] [phone] [facility], Peritoneal Dialysis [address] [facility] [place] [address] 07/12/2024 8:00 AM EDT Treatment Home Dialysis [facility] [address] [place], [place] [address] Nurse, Lance Lopez [employer] [address] [place], [place] [address] 07/12/2024 1:00 PM EDT Nurse Only Home Dialysis [facility] [address] [place] [address] [phone] Nurse, Lance Lopez [facility] [address] [place], [place] [id number] 07/22/2024 1:00 PM EST Office Visit Home Dialysis [facility] [address] [place] [address] [phone] [facility], Peritoneal Dialysis [address] [place], [place] [id number] 08/11/2024 8:00 AM EST Treatment Home Dialysis [facility] [address] [place], [place] [phone] Nurse, Lance Enubila [facility] [address] [place], [place] [address] 08/12/2024 1:00 PM EST Nurse Only Home Dialysis [facility] [address] Dr [place], [place] [phone] Nurse, Lance Lopez [facility] [address] [place], [place] [address] 08/20/2024 1:00 PM EST Office Visit Home Dialysis [facility] [address] Dr [place], [place] [address] [facility], Peritoneal Dialysis [address] [place], [place] [address] Health Maintenance Due Date Last Done Comments [...] mcg 4 mcg, Intravenous, ONCE, On Marylu 09/21/23 at 0615, For 1 dose Given 09/21/2023 6:46 AM EST 4 mcg Epoetin Sloan [address] UNIT/ML inj 7,600 Units 7,600 Units, Intravenous, ONCE, On Marylu 09/21/23 at 0615, For 1 dose Given 09/21/2023 6:46 AM EST 7,600 Units hEParin 1,000 unit/mL infusion for dialysis 500 Units/hr (0.5 mL/hr), Hemodialysis, CONTINUOUS, Starting on Marylu 09/21/23 at 0615, Until Marylu 09/21/23 at 1544, Maintenance: Stop 1 hour before dialysis end in AVF/AVG. Continue through dialysis in CVC. The total delivered dose is approximately 2,500 to 5,000 units, based on weight and treatment duration assumptions Start Infusion 09/21/2023 5:40 AM EST 500 Units/hr 0.5 mL/hr hEParin 1000 UNIT/ML inj 2,000 Units 2,000 Units, Intravenous, ONCE, On Marylu 09/21/23 at 0615, For 1 dose, Loading dose Given 09/21/2023 5:38 AM EST 2,000 Units sodium citrate 4% (Anticoagulant Sodium Citrate) inj 2.5 mL 2.5 mL, Dialysis catheter, ONCE, On Marylu 09/21/23 at 0615, For 1 dose, ARTERIAL For use only to lock dialysis catheter after dialysis Given 09/21/2023 9:45 AM EST 2.5 mL sodium citrate 4% (Anticoagulant Sodium Citrate) inj 2.5 mL 2.5 mL, Dialysis catheter, ONCE, On Marylu 09/21/23 at 0615, For 1 dose, VENOUS For use only to lock dialysis catheter after dialysis Given 09/21/2023 9:45 AM EST 2.5 mL documented in this [...] Advance Directives occurred with: Patient Care Teams Registrar Assistant Relationship Specialty Start Date End Date Tomer Garner MD [address] [phone] PCP - General 09/19/02 documented as of this encounter
--- OUTSIDE RECORDS SUMMARY | 2024-03-17 14:25 | External Medical Summary | Summary of Care ---
Author Name Unknown Organization [facility] Address [address] [facility] [place] [address] Phone [phone] Care Team Providers Care Press Tool Maker Name Role Phone Tomer Garner MD Primary Care Provider [phone] Reason for Visit * Reason Onset Date Comments Information 11/17/2023 Encounter Details Date Type Department Care Team ([facility] st Contact Info) Description 11/17/2023 Telephone Home Dialysis [address] [place] [address] Nurse, Lance [facility] Cap [address] [place] [address] Information Allergies No known active allergiesdocumented as of this encounter (statuses as of 11/17/2023) Medications Medication Sig Dispensed Refills Start Date [...] as of this encounter (statuses as of 11/17/2023) Active Problems Problem Noted Date Diagnosed Date [...] as of this encounter (statuses as of 11/17/2023) Resolved Problems Problem Noted Date Diagnosed Date [...] as of this encounter (statuses as of 11/17/2023) Immunizations Name Administration Dates Next Due COVID-19 mRNA, LNP-s, No Pre serve, 2-Dose Series (Moderna) 11/23/2020,10/18/2020 DTP Vaccine 1981,1981,1981 HEP B - Hepatitis B (Dialysis/Immumocomp Pt) 05/02/2023,04/04/2023 MMR - Measles/Mumps/Rubella Vaccine 05/11/1982 OPV - Polio Virus Vaccine (Oral) 1981,04/11 Pneumococcal Conjugate Vacci ne, 20-valent ([id number]) 11/17/2022 Seasonal Influenza, PF, 6 M & [...] Telephone Encounter - Alyssa Oneill RN - 11/17/2023 2:16 PM EST Chandan called and feeling well and with no complaints. He reports no SOB, abd pain, or dizziness. Heknows to call the news production supervisor nephrology number with any sudden changes in weight or BP, or any concerning symptoms with PD. documented in this encounter Plan of Treatment Upcoming Encounters Date Type Department Care Team (Late st Contact Info) Description 12/04/2023 1:00 PM EDT Office Visit Home Dialysis [address], [place], [place] [phone] [facility] [place]ialysis [address] [place] [address] 12/11/2023 8:00 AM EDT Treatment Home Dialysis [address], [place] [address] Nurse, [place] [address] 12/11/2023 1:00 PM EDT Nurse Only Home Dialysis [address], [place] [address] Nurse, [place] [address] 12/26/2023 1:00 PM EDT Office Visit Home Dialysis [address], [place] [address] [facility] [place] [address] [place] [address] 01/10/2024 8:00 AM EDT Treatment Home D[place] [address] Nurse, Lance [address] [facility] [address] [place] [address] 01/10/2024 1:00 PM EDT Nurse Only Home Dialysis Hamzah [address] [place], [place] [address] Nurse, Lance [address] [facility] [address] [place] [address] 02/08/2024 1:00 PM EDT Office Visit Home Dialysis Hamzah [address] [place] [address] [facility], [facility]itoneal [facility] [address] [facility] [place] [address] 02/10/2024 8:00 AM EDT Treatment Home Dialysis Hamzah [address] [place], [place] [phone] Nurse, Lance Drive [facility] [address] [place] [address] 02/12/2024 1:00 PM EDT Nurse Only Home Dialysis [facility] [place], [place] [address] Nurse, Lance [address] [facility] [address] [place] [address] 03/05/2024 1:00 PM EDT Office Visit Home Dialysis Hamzah [address] [place] [address] [facility] [place] [address] [place] [address] 03/11/2024 8:00 AM EDT Treatment Home Dialysis Hamz[facility] [address] [place] [address] Nurse, Lance [address] [employer] [address] [place] [address] 03/11/2024 1:00 PM EDT Nurse Only Home Dialysis Hamzah [address] [place] [address] Nurse, Lance [address] [employer] [address] [place], [place] [address] 03/19/2024 1:00 PM EDT Office Visit Home Dialysis Hamzah [address] [place], [place] [address] [facility] [place] Dialysis [address] [place] [facility] [place] [address] 04/11/2024 8:00 AM EDT Treatment Home Dialysis Hamzah Lucas [address] 32 [place], [place] [phone] Nurse, Lance Drive [facility] [address] [place], [place] [address] 04/11/2024 1:00 PM EDT Nurse Only Home Dialysis Hamzah [address] [place], [place] [phone] Nurse, Lance Drive [facility] [address] [place], [place] [address] 04/29/2024 1:00 PM EDT Office Visit Home Dialysis Hamzah [address] [place], [place] [address] [facility] [place] Dialysis [address] [place] [facility] [place] [address] 05/12/2024 8:00 AM EDT Treatment Home Dialysis Hamzah [address] [place], [place] [address] Nurse, Lance [address] [employer] [address] [place] [address] 05/14/2024 1:00 PM EDT Nurse Only Home Dialysis Hamzah [address] 32 [place], [place] [phone] Nurse, Lance Drive [facility] 32 [place], [place] [address] 06/07/2024 1:00 PM EDT Office Visit Home Dialysis Hamzah Lucas [address] [place], [place] [address] [facility], Peritoneal Dialysis [address] [place] [address] 06/11/2024 8:00 AM EDT Treatment Home Dialysis Hamzah Lucas [address] [place], [place] [address] Nurse, [employer] [facility] [address] [place], [place] [address] 06/11/2024 1:00 PM EDT Nurse Only Home Dialysis Hamzah [address] [place], [place] [phone] Nurse, [employer] [facility] [place], [place] [address] 06/25/2024 1:00 PM EDT Office Visit Home Dialysis Hamzah [address] [place], [place] [address] [facility] [place] [place] Dialysis [address] [place] [facility] [place] [address] 07/12/2024 8:00 AM EDT Treatment Home Dialysis Hamzah [address] [place], [place] [address] Nurse, [employer] [facility] [address] [place], [place] [address] 07/12/2024 1:00 PM EDT Nurse Only Home Dialysis Hamzah [address] [place], [place] [address] Nurse, [employer] [facility] [address] [place], [place] [address] 07/22/2024 1:00 PM EST Office Visit Home Dialysis Hamzah [address] [place], [place] [address] [facility] [place] [place] Dialysis [address] [facility] [place], [place] [address] 08/11/2024 8:00 AM EST Treatment Home Dialysis Hamzah [address] [place], [place] [phone] Nurse, Lance Drive [facility] 32 [place], [place] [address] 08/12/2024 1:00 PM EST Nurse Only Home Dialysis Hamzah [address] 32 [place], [place] [phone] Nurse, Lance Drive [facility] 32 [place], [place] [address] 08/20/2024 1:00 PM EST Office Visit Home Dialysis Hamzah [facility] [address] [place], [place] [phone] [facility], Peritoneal Dialysis [address] [place] [address] Health Maintenance Due Date Last Done Comments [...] Advance Directives occurred with: Patient Care Teams Press Tool Maker Relationship Specialty Start Date End Date Tomer Garner MD [address] [phone] PCP - General 09/19/02 documented as of this encounter
--- OUTSIDE RECORDS SUMMARY | 2024-03-17 14:25 | External Medical Summary | Summary of Care ---
Author Name Unknown Organization [facility] Address [address] [facility] [place] [address] Phone [phone] Care Team Providers Care Supervisor Paint Name Role Phone Tomer Garner MD Primary Care Provider Encounter Details Date Type Department Care Team (Late st Contact Info) Description 11/02/2023 Orders Only Home Dialysis [address] [place] [address] Sophia Hernandez, RN ESRD on peritoneal dialysis (HCC)*; 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 chronic kidney disease, [...] External CreamIndications:E SRD on peritoneal dialysis ([facility]) Apply topically to affected area daily. Apply to PD exit catheter site daily after showering and cover with bandage 15 g 2 09/08/2023 Active Dialyvite Oral Tablet Take 1 Tablet by mouth in the morning. 30 Tablet 11 09/28/2023 Active Hospital, Clinic, or Other Facility Administered Medication Ordered Dose Route Frequency Start Date End Date Status Vancomycin (Vancocin) (100 mg/mL) dilution 2,000 mgIndications:ESRD on peritoneal dialysis ([facility]) 2000 mg PD FLUID ONCE 11/03/2023 11/02/2023 Ended cefepime (Maxipime) (160 mg/mL) inj dilution 1 gIndications:ESRD on peritoneal dialysis ([facility]) 1 g PD FLUID ONCE 11/03/2023 11/02/2023 Ended documented as of this encounter (statuses [...] (Oral) 1981,04/11 Pneumococcal Conjugate Vacci ne, 20-valent ([id number]) 11/17/2022 Seasonal Influenza, PF, 6 M & [...] [address]au [address] [place] [id number] [facility] [place] Dialysis [address], [place] [id number] 12/11/2023 8:00 AM EDT Treatment Home Dialysis Clau [address] [place] [address] Nurse, Lance Bee [address] [place] [address] 12/11/2023 1:00 PM EDT Nurse Only Home Dialysis [facility] [address] [place] [address] Nurse, Lance Jessica Bee [address] [place] [address] 12/26/2023 1:00 PM EDT Office Visit Home Dialysis Clau [address] [place] [address] [facility] [place] Peritoneal Dialysis [address] [place] [address] 01/10/2024 8:00 AM EDT Treatment Home Dialysis Clau [address] [place] [address] Nurse, [place], [place] [address] 01/10/2024 1:00 PM EDT Nurse Only Home Dialysis Clau [address] 32 [place], [place] [phone] Nurse, Lance Drive [facility] [address] [place] [address] 02/08/2024 1:00 PM EDT Office Visit Home Dialysis Clau [address] [place] [address] [facility] [place] Peritoneal Dialysis [address] [place] [address] 02/10/2024 8:00 AM EDT Treatment Home Dialysis Clau [address] 32 [place], [place] [phone] Nurse, Lance Zaarly [facility] 32 [place], [place] 02/12/2024 1:00 PM EDT Nurse Only Home Dialysis Clau [address] [place], [place] [phone] Nurse, Lancebaltazar Bee [address] [place], [place] [address] 03/05/2024 1:00 PM EDT Office Visit Home Dialysis Clau [address] [place], [place] [address] [facility] [place] Peritoneal Dialysis [address] [facility] [place] [address] 03/11/2024 8:00 AM EDT Treatment Home Dialysis Clau [address] [facility] [address] [place], [place] [phone] Nurse, Lance Zaarly [facility] [address] [place], [place] [address] 03/11/2024 1:00 PM EDT Nurse Only Home Dialysis Clau [address] [place], [place] [phone] Nurse, Lance Drive [facility] [address] [place], [place] [address] 03/19/2024 1:00 PM EDT Office Visit Home Dialysis Clau [address] [place], [place] [address] [facility] [place] Peritoneal Dialysis [address] [place] [address] 04/11/2024 8:00 AM EDT Treatment Home Dialysis Clau [address] [place], [place] [phone] Nurse, Lance [address] [facility] [address] [place], [place] 04/11/2024 1:00 PM EDT Nurse Only Home Dialysis Clau [address] [place], [place] [phone] Nurse, Lance [address] [facility] [place], [place] [address] 04/29/2024 1:00 PM EDT Office Visit Home Dialysis Clau [address] [place] [address] [facility] [place] Peritoneal Dialysis [address] [place] [address] 05/12/2024 8:00 AM EDT Treatment Home Dialysis Clau [address] [place], [place] [phone] Nurse, Lance [address] [employer] [address] [place] [address] 05/14/2024 1:00 PM EDT Nurse Only Home Dialysis Clau [address] [place], [place] [phone] Nurse, Lance [address] [employer] [address] [place] [address] 06/07/2024 1:00 PM EDT Office Visit Home Dialysis Clau [address] [place], [place] [address] [facility] [place] Peritoneal Dialysis [address] [place] [address] 06/11/2024 8:00 AM EDT Treatment Home Dialysis Clau [address] [place], [place] [address] Nurse, Lance Zaarly [facility] [place], [place] [address] 06/11/2024 1:00 PM EDT Nurse Only Home Dialysis Clau [address] [place], [place] [phone] Nurse, [employer] [address] [place], [place] [address] 06/25/2024 1:00 PM EDT Office Visit Home Dialysis Clau [address] [place], [place] [address] [facility] [place] Peritoneal Dialysis [address] [place] [address] 07/12/2024 8:00 AM EDT Treatment Home Dialysis Clau [address] [place], [place] [phone] Nurse, [employer] [address] [place] [address] 07/12/2024 1:00 PM EDT Nurse Only Home Dialysis Clau [address] [place], [place] [address] Nurse, Lance Zaarly [employer] [address] [place] [address] 07/22/2024 1:00 PM EST Office Visit Home Dialysis Clau [address] [place], [place] [address] [facility] [place] Peritoneal Dialysis [address] [place] [address] 08/11/2024 8:00 AM EST Treatment Home Dialysis Clau [address] [place], [place] [address] Nurse, Lance Zaarly [address] [phone] 08/12/2024 1:00 PM EST Nurse Only Home Dialysis Cl[facility] [address] [place] [phone] Nurse, Lance [address] [employer] [address] [place] [address] [id number] 08/20/2024 1:00 PM EST Office Visit Home Dialysis Clau [facility] [address] [phone] [facility] [place] Peritoneal Dialysis [address] [facility] [place] [id number] Scheduled Orders Name Type Priority Associated Diagnoses Orde r Schedule TRANSFER SET CHANGE Procedures Routine ESRD on peritoneal dialysis (HCC) Ordered: 11/03/2023 CELL COUNT WITH DIFFERENTIAL, BODY FLUID Lab Routine ESRD on peritoneal dialysis (HCC) Expected: 11/03/2023, Expires: 12/01/2023 CULTURE, BODY FLUID, AEROBIC Lab Routine ESRD on peritoneal dialysis (HCC) Expected: 11/03/2023, Expires: 11/03/2024 CHLORIDE Lab Routine ESRD on peritoneal dialysis (HCC) 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 chronic kidney disease, not on chronic dialysis (HCC) One Time for 1 Occurrences starting 11/13/2023 until 11/13/2023 SODIUM Lab Routine ESRD on peritoneal dialysis (HCC) 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 chronic kidney disease, not on chronic dialysis (HCC) One Time for 1 Occurrences starting 11/13/2023 until 11/13/2023 Health Maintenance Due Date Last Done Comments [...] chronic dialysis (HCC) documented in this encounter Advance Directives Latest [...] Advance Directives occurred with: Patient Care Teams Supervisor Paint Relationship Specialty Start Date End Date Tomer Garner MD [address] [place] [address] PCP - General 09/19/02 documented as of this encounter
--- OUTSIDE RECORDS SUMMARY | 2024-03-17 14:25 | External Medical Summary | Summary of Care ---
Author Name Unknown Organization [facility] Address [address] [place] [address] Phone [phone] Care Team Providers Care Electric Operator Name Role Phone Tomer Garner MD Primary Care Provider Reason for Visit * Reason Comments Hemodialysis * Episode Based Medications (Routine) - Closed Specialty Diagnoses / Procedures Referred By Contac t Referred To Contact Diagnoses ESRD on peritoneal dialysis (HCC) 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 chronic kidney disease, not on chronic dialysis (HCC) Procedures MA EPOETIN SLOAN, NON-ESRD MA EPOETIN SLOAN, 100 UNITS ESRD Yonny Saldivar MD [address] [place] [address] [address] [place] [address] Referral ID Status Reason Start Date Expiration Date Visits Re quested Visits Authorized [id number] Closed 08/22/2023 02/21/2024 999 0 Encounter Details [...] (Oral) 1981,04/11 Pneumococcal Conjugate Vacci ne, 20-valent ([id number]) 11/17/2022 Seasonal Influenza, PF, 6 M & [...] [address] [place] [address] [facility], Peritoneal Dialysis [address] [place] [address] 12/11/2023 8:00 AM EDT Treatment Home Dialysis [facility] [address] [place] [address] Nurse, Lance Lopez [facility] [address] [place] [address] 12/11/2023 1:00 PM EDT Nurse Only Home Dialysis Hamzah [address] [place], [place] [phone] Nurse, Lance [address] [facility] [address] [place], [place] [address] 12/26/2023 1:00 PM EDT Office Visit Home Dialysis [facility] [address] [place], [place] [address] [facility] [place] [place] [address] [place] [address] 01/10/2024 8:00 AM EDT Treatment Home Dialysis Hamzah [address] 32 [place], [place] [phone] Nurse, Lance [address] [facility] [address] [place], [place] [address] 01/10/2024 1:00 PM EDT Nurse Only Home Dialysis Hamzah [address] [place], [place] [phone] Nurse, Lance [address] [facility] [address] [place], [place] [address] 02/08/2024 1:00 PM EDT Office Visit Home Dialysis Hamzah [address] [place], [place] [address] [facility] [place] [place]ialysis [address] [place] [facility] [place] [address] 02/10/2024 8:00 AM EDT Treatment Home Dialysis Hamzah [address] Dr [address] [place], [place] [phone] Nurse, Lance [address] [facility] [address] [place], [place] [address] 02/12/2024 1:00 PM EDT Nurse Only Home Dialysis Hamzah [address] [place], [place] [phone] Nurse, Lance [address] [facility] [address] [place], [place] [address] 03/05/2024 1:00 PM EDT Office Visit Home Dialysis Hamzah [address] [place], [place] [address] [facility] [place] [place] Dialysis [address] [facility] [place] [address] 03/11/2024 8:00 AM EDT Treatment Home Dialysis Hamzah [address] [place], [place] [phone] Nurse, Lance [address] [facility] [address] [place], [place] 03/11/2024 1:00 PM EDT Nurse Only Home Dialysis [facility] [address] [place], [place] [phone] Nurse, Lance [employer] [facility] [address] [place], [place] 03/19/2024 1:00 PM EDT Office Visit Home Dialysis Hamzah [address] [place], [place] [address] [facility] [place] Peritoneal Dialysis [address] [facility] [place] [address] 04/11/2024 8:00 AM EDT Treatment Home Dialysis Hamzah [address] [place], [place] [phone] Nurse, Lance [employer] [address] [place], [place] [address] 04/11/2024 1:00 PM EDT Nurse Only Home Dialysis Hamzah [address] [place], [place] [phone] Nurse, [email or web address] [address] [place], [place] [address] 04/29/2024 1:00 PM EDT Office Visit Home Dialysis Hamzah [address] [place], [place] [address] [facility] [place] Per[place] Dialysis [address] [place] [facility] [place] [address] 05/12/2024 8:00 AM EDT Treatment Home Dialysis Hamz[facility] [address] [facility] [address] [place], [place] [phone] Nurse, Lance [employer] [address] [place], [place] [address] 05/14/2024 1:00 PM EDT Nurse Only Home Dialysis Hamzah [address] [place], [place] [phone] Nurse, Lance [employer] [address] [place], [place] [address] 06/07/2024 1:00 PM EDT Office Visit Home Dialysis Hamzah [address] [place], [place] [address] [facility] Per[place] Dialysis [address] [facility], [place] [address] 06/11/2024 8:00 AM EDT Treatment Home Dialysis Ham[facility] [address] [place], [place] [phone] Nurse, Lance [employer] [address] [place], [place] [address] 06/11/2024 1:00 PM EDT Nurse Only Home Dialysis [facility] [address] [place], [place] [phone] Nurse, Lance [employer] [address] [place], [place] [address] 06/25/2024 1:00 PM EDT Office Visit Home Dialysis [facility] [address] [place], [place] [phone] [facility] [place] [place] Dialysis [address] [place] [facility] [address] 07/12/2024 8:00 AM EDT Treatment Home Dialysis [facility] [place], [place] [address] Nurse, Lance Lopez [employer] [address] [place], [place] [address] 07/12/2024 1:00 PM EDT Nurse Only Home Dialysis [facility] [address] [phone] Nurse, Lance Lopez [facility] [address] [place], [place] [id number] 07/22/2024 1:00 PM EST Office Visit Home Dialysis [facility] [address] [phone] [facility] [place] Per[place] Dialysis [address] [place], [place] [id number] 08/11/2024 8:00 AM EST Treatment Home Dialysis [facility] [address] [place], [place] [phone] Nurse, Lance [employer] [address] [place], [place] [address] 08/12/2024 1:00 PM EST Nurse Only Home Dialysis [facility]z[address] [place], [place] [phone] Nurse, Lance Lopez [address] [place], [place] [address] 08/20/2024 1:00 PM EST Office Visit Home Dialysis [facility] [place], [place] [address] [facility] [place] [place] Dialysis [address] [place], [place] [address] Health Maintenance Due Date Last Done Comments [...] 6:46 AM EST 4 mcg Epoetin Sloan [address] UNIT/ML inj 7,600 Units 7,600 Units, Intravenous, [...] Advance Directives occurred with: Patient Care Teams Electric Operator Relationship Specialty Start Date End Date Tomer Garner MD [address] [phone] PCP - General 09/19/02 documented as of this encounter
--- OUTSIDE RECORDS SUMMARY | 2024-03-17 14:25 | External Medical Summary | Summary of Care ---
Author Name Unknown Organization [facility] Address [address] [place] [address] Phone [phone] Care Team Providers Care Smoke Tester Name Role Phone Tomer Garner MD Primary Care Provider Reason for Visit * Reason Comments Hemodialysis * Episode Based Medications (Routine) - Closed Specialty Diagnoses / Procedures Referred By Contac t Referred To Contact Diagnoses ESRD on peritoneal dialysis (HCC) 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 chronic kidney disease, not on chronic dialysis (HCC) Procedures [place] EPOETIN SLOAN, NON-ESRD [place] EPOETIN SLOAN, 100 UNITS ESRD Yonny Saldivar MD [address] [place] [address] [address] [place] [address] Referral ID Status Reason Start Date Expiration Date Visits Re quested Visits Authorized [id number] Closed 08/22/2023 02/21/2024 999 0 Encounter Details [...] (Oral) 1981,04/11 Pneumococcal Conjugate Vacci ne, 20-valent ([id number]) 11/17/2022 Seasonal Influenza, PF, 6 M & [...] [address] [place] [address] [facility], Peritoneal Dialysis [address] [place] [address] 12/11/2023 8:00 AM EDT Treatment Home Dialysis [facility] [address] [place] [address] Nurse, Lance Lopez [facility] [address] [place] [address] 12/11/2023 1:00 PM EDT Nurse Only Home Dialysis [facility] [place], [place] [phone] Nurse, Lance [address] [facility] [address] [place], [place] [address] 12/26/2023 1:00 PM EDT Office Visit Home Dialysis [facility] [place], [place] [address] [facility], Peritoneal Dialysis [address] [place] [address] 01/10/2024 8:00 AM EDT Treatment Home Dialysis [facility] [address] [place], [place] [phone] Nurse, Lance [address] [employer] [address] [place], [place] [address] 01/10/2024 1:00 PM EDT Nurse Only Home Dialysis [facility] [place], [place] [phone] Nurse, Lance [address] [employer] [address] [place], [place] [address] 02/08/2024 1:00 PM EDT Office Visit Home Dialysis [facility] [place], [place] [address] [facility], Peritoneal Dialysis [address] [place] [facility] [place] [address] 02/10/2024 8:00 AM EDT Treatment Home Dialysis Hamzah [address] [place], [place] [phone] Nurse, Lance [address] [facility] [address] [place], [place] [address] 02/12/2024 1:00 PM EDT Nurse Only Home Dialysis Ham[address] [place], [place] [phone] Nurse, Lance [address] [employer] [address] [place], [place] [address] 03/05/2024 1:00 PM EDT Office Visit Home Dialysis Ham[address] [place], [place] [address] [facility], Peritoneal Dialysis [address] [place] [address] 03/11/2024 8:00 AM EDT Treatment Home Dialysis Ham[facility] [place], [place] [phone] Nurse, Lance [address] [employer] [address] [place], [place] 03/11/2024 1:00 PM EDT Nurse Only Home Dialysis [facility] [place], [place] [phone] Nurse, Lance [employer] [address] [place], [place] 03/19/2024 1:00 PM EDT Office Visit Home Dialysis [facility] [place], [place] [address] [facility], Peritoneal Dialysis [address] [place] [address] 04/11/2024 8:00 AM EDT Treatment Home Dialysis [facility] [place], [place] [phone] Nurse, Lance [employer] [facility] [address] [place], [place] [address] 04/11/2024 1:00 PM EDT Nurse Only Home Dialysis [facility] [place], [place] [phone] Nurse, [employer] [facility] [address] [place], [place] [address] 04/29/2024 1:00 PM EDT Office Visit Home Dialysis [facility] [place], [place] [address] [facility], Peritoneal Dialysis [address] [place] [facility] [place] [address] 05/12/2024 8:00 AM EDT Treatment Home Dialysis [facility] [place], [place] [phone] Nurse, Lance [employer] [facility] [address] [place], [place] [address] 05/14/2024 1:00 PM EDT Nurse Only Home Dialysis [facility] [place], [place] [phone] Nurse, Lance [employer] [facility] [address] [place], [place] [address] 06/07/2024 1:00 PM EDT Office Visit Home Dialysis [facility] [place], [place] [address] [facility], Peritoneal Dialysis [address] [facility], [place] [address] 06/11/2024 8:00 AM EDT Treatment Home Dialysis [facility] [address] [place], [place] [phone] Nurse, Lance [employer] [facility] [address] [place], [place] [address] 06/11/2024 1:00 PM EDT Nurse Only Home Dialysis [facility] [place], [place] [phone] Nurse, Lance [employer]ie [facility] [address] [place], [place] [address] 06/25/2024 1:00 PM EDT Office Visit Home Dialysis [facility] [address] [place], [place] [phone] [facility], Peritoneal Dialysis [address] [place] [facility] [place] [address] 07/12/2024 8:00 AM EDT Treatment Home Dialysis [facility] [place], [place] [address] Nurse, Lance Lopez [employer] [address] [place], [place] [address] 07/12/2024 1:00 PM EDT Nurse Only Home Dialysis Hamz[facility] [address] [place] [phone] Nurse, Lance Lopez [facility] [address] [place], [place] [id number] 07/22/2024 1:00 PM EST Office Visit Home Dialysis Ham[facility] [address] [place] [phone] [facility], Peritoneal Dialysis [address] [place], [place] [id number] 08/11/2024 8:00 AM EST Treatment Home Dialysis [facility] [address] [place], [place] [phone] Nurse, Lance Teamie [facility] [address] [place], [place] [address] 08/12/2024 1:00 PM EST Nurse Only Home Dialysis [facility] [place], [place] [phone] Nurse, Lance Lopez [facility] [address] [place], [place] [address] 08/20/2024 1:00 PM EST Office Visit Home Dialysis [facility] [place], [place] [address] [facility], Peritoneal Dialysis [address] [place], [place] [address] Health Maintenance Due Date Last Done Comments [...] 6:46 AM EST 4 mcg Epoetin Sloan [address] UNIT/ML inj 7,600 Units 7,600 Units, Intravenous, [...] Advance Directives occurred with: Patient Care Teams Smoke Tester Relationship Specialty Start Date End Date Tomer Garner MD [address] [id number] PCP - General 09/19/02 documented as of this encounter
--- OUTSIDE RECORDS SUMMARY | 2024-03-17 14:25 | External Medical Summary | Summary of Care ---
Author Name Unknown Organization [facility] Address [address] [facility] [place] [address] Phone [phone] Care Team Providers Care Spring Clipper Name Role Phone Tomer Garner MD Primary Care Provider [phone] Reason for Visit * Reason Onset Date Comments Other 11/16/2023 CCPD/ CAPD check Encounter Details Date Type Department Care Team ([facility] st Contact Info) Description 11/16/2023 Telephone Home Dialysis [address] [place] [address] Sophia Hernandez, RN Other (CCPD/ CAPD check) Allergies No known active allergiesdocumented as [...] (Oral) 1981,04/11 Pneumococcal Conjugate Vacci ne, 20-valent ([id number]) 11/17/2022 Seasonal Influenza, PF, 6 M & [...] Telephone Encounter - Sophia Hernandez RN - 11/16/2023 3:02 PM EST PD nurse spoke to patient regarding CCPD and CAPD treatments. PT dialysis plan changed and updated in therapy plan. Routine, Qty-1 Number Of Cycles: 4 Total Treatment Time (hr): 10 Dextrose Concentration (g/100 mL): 2.5 Exchange Volume (L): Other (specify) Exchange Volume Comments: 2800 Last Fill : Yes Last Fill Dextrose Concentration (g/100 mL): 2.5 Dwell time (hrs): 4 Last Fill Volume (L): 2.5 Mid Day Exchange: Yes Mid Day Icodextrin ? Yes Icodextrin Volume (L): 2.5 Icodextrin Dwell Time (hrs): 10 Number Of Exchanges (per 24 hrs): 1 Tidal Volume (%): None Estimated Dry Weight (kg): 126.5kg PT reported no abd, chest pain, SOB or lightheadedness. Pt wt in share source on 11/16/23 131.2 kg, pt over dry weight and educated to maintain fluid intake to fluid output from treatments. PT BP 145/93 PT currently on metoprolol 100 mg daily PT expressed understanding to contact CCPD clinic or otm consultant nephrology with any sudden changes in weight and BP, or other concerning symptoms. documented in this encounter Plan of Treatment Upcoming Encounters Date Type Department Care Team (Late st Contact Info) Description 12/04/2023 1:00 PM EDT Office Visit Home Dialysis Clau [address] [place] [address] [id number] [facility], Peritoneal Dialysis [address] [place] [address] 12/11/2023 8:00 AM EDT Treatment Home Dialysis Clau [address] [place] [address] [phone] Nurse, [address] [facility] [address] [place] [address] 12/11/2023 1:00 PM EDT Nurse Only Home Dialysis Clau [address] [place], [place] [phone] Nurse, Lance [address] [employer] [address] [place], [place] [address] 12/26/2023 1:00 PM EDT Office Visit Home Dialysis Clau [address] [place], [place] [phone] [facility], Peritoneal Dialysis [address] [place] [address] 01/10/2024 8:00 AM EDT Treatment Home Dialysis Clau [address] [place], [place] [phone] Nurse, Lance [address] [facility] [address] [place], [place] 01/10/2024 1:00 PM EDT Nurse Only Home Dialysis Clau [address] [place], [place] [phone] Nurse, Lance [employer] [facility] [address] [place], [place] [address] 02/08/2024 1:00 PM EDT Office Visit Home Dialysis Clau [address] [place], [place] [address] [facility], Peritoneal Dialysis [address] [place] [facility] [address] 02/10/2024 8:00 AM EDT Treatment Home Dialysis Clau [address] [place], [place] [phone] Nurse, Lance [address] [facility] [address] [place], [place] [address] 02/12/2024 1:00 PM EDT Nurse Only Home Dialysis Clau [address] [place], [place] [phone] Nurse, Lance [employer] [address] [place] [address] 03/05/2024 1:00 PM EDT Office Visit Home Dialysis Clau [address] [place], [place] [address] [facility], Peritoneal Dialysis [address] [place] [address] 03/11/2024 8:00 AM EDT Treatment Home Dialysis Clau [address] [place], [place] [address] Nurse, [address] [employer] [address] [place] [address] 03/11/2024 1:00 PM EDT Nurse Only Home Dialysis Clau [address] [place], [place] [address] Nurse, [address] [employer] [address] [place], [place] [address] 03/19/2024 1:00 PM EDT Office Visit Home Dialysis Clau [address] [place], [place] [address] [facility], Peritoneal Dialysis [address] [place] [address] 04/11/2024 8:00 AM EDT Treatment Home Dialysis Clau [address] [place], [place] [address] Nurse, [address] [employer] [address] [place] [address] 04/11/2024 1:00 PM EDT Nurse Only Home Dialysis Clau [address] [place], [place] [phone] Nurse, Lance [address] [facility] [address] [place], [place] [address] 04/29/2024 1:00 PM EDT Office Visit Home Dialysis Clau [address] [place], [place] [address] [facility], Peritoneal Dialysis [address] [place] [facility] [address] 05/12/2024 8:00 AM EDT Treatment Home Dialysis Clau [address] [place], [place] [address] Nurse, Lance [employer] [address] [place], [place] [address] 05/14/2024 1:00 PM EDT Nurse Only Home Dialysis Cl[address] [place], [place] [address] Nurse, Lance [employer] [facility] [address] [place], [place] [address] 06/07/2024 1:00 PM EDT Office Visit Home Dialysis Clau [address] [place], [place] [address] [facility], Peritoneal Dialysis [address] [place] [address] 06/11/2024 8:00 AM EDT Treatment Home Dialysis Clau [address] [place], [place] [address] Nurse, [employer] [facility] [address] [place], [place] [address] 06/11/2024 1:00 PM EDT Nurse Only Home Dialysis Clau [address] [place], [place] [address] Nurse, Lance [employer] [address] [place] [address] 06/25/2024 1:00 PM EDT Office Visit Home Dialysis Clau [address] [place], [place] [address] [facility], Peritoneal Dialysis [address] [place] [address] 07/12/2024 8:00 AM EDT Treatment Home Dialysis Clau Lucas Dr, Dr, [place] [phone] Nurse, Lance Jessica [facility] [address] [place], [place] [address] 07/12/2024 1:00 PM EDT Nurse Only Home Dialysis [address] [place], [place] [address] Nurse, Lance Lopez [facility] [address] [place], [place] [address] 07/22/2024 1:00 PM EST Office Visit Home Dialysis Clau [address] [place], [place] [phone] [facility], Peritoneal Dialysis [address] [place] [address] 08/11/2024 8:00 AM EST Treatment Home Dialysis Clau [address] [place], [place] [address] Nurse, Lance [address] [facility] [address] [place], [place] [address] 08/12/2024 1:00 PM EST Nurse Only Home Dialysis Clau [address] [place], [place] [phone] Nurse, Lance Lopez [facility] [address] [place], [place] [address] 08/20/2024 1:00 PM EST Office Visit Home Dialysis Clau [address] [place], [place] [address] [facility], Peritoneal Dialysis [address] [place] [address] Health Maintenance Due Date Last Done Comments [...] Advance Directives occurred with: Patient Care Teams Spring Clipper Relationship Specialty Start Date End Date Tomer Garner MD [address] [place] [address] PCP - General 09/19/02 documented as of this encounter
--- OUTSIDE RECORDS SUMMARY | 2024-03-17 14:25 | External Medical Summary | Summary of Care ---
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 chronic kidney disease, not on chronic dialysis (HCC) Procedures [place] EPOETIN SLOAN, NON-ESRD [place] EPOETIN SLOAN, 100 UNITS ESRD Yonny aSldivar MD [address] [place] [address] [address] [place] [address] Referral ID Status Reason Start Date Expiration Date Visits Re quested Visits Authorized [id number] Closed 08/22/2023 02/21/2024 999 0 Encounter Details [...] (Oral) 1981,04/11 Pneumococcal Conjugate Vacci ne, 20-valent ([id number]) 11/17/2022 Seasonal Influenza, PF, 6 M & [...] [address] [place] [address] [facility], Peritoneal Dialysis [address] [place] [address] 12/11/2023 8:00 AM EDT Treatment Home Dialysis [facility] [address] [place] [address] Nurse, Lance Lopez [employer] [address] [place] [id number] 12/11/2023 1:00 PM EDT Nurse Only Home Dialysis Ham[address] [place], [place] [address] Nurse, Lance [address] [facility] [address] [place], [place] [address] 12/26/2023 1:00 PM EDT Office Visit Home Dialysis Hamz[address] [place], [place] [address] [facility] Peritoneal Dialysis [address] [place] [address] 01/10/2024 8:00 AM EDT Treatment Home Dialysis Hamz[address] [place], [place] [address] Nurse, [address] [facility] [address] [place], [place] [address] 01/10/2024 1:00 PM EDT Nurse Only Home Dialysis [facility] [place], [place] [phone] Nurse, [address] [facility] [address] [place], [place] [address] 02/08/2024 1:00 PM EDT Office Visit Home Dialysis Hamz[address] [place], [place] [address] [facility] Peritoneal Dialysis [address] [place] [facility] [address] 02/10/2024 8:00 AM EDT Treatment Home Dialysis Hamzah [address] [place], [place] [address] Nurse, [address] [facility] [address] [place], [place] [address] 02/12/2024 1:00 PM EDT Nurse Only Home Dialysis [facility] [place], [place] [address] Nurse, [address] [employer] [place], [place] [address] 03/05/2024 1:00 PM EDT Office Visit Home Dialysis Ham[facility] [place], [place] [address] [facility] Peritoneal Dialysis [address] [place] [address] 03/11/2024 8:00 AM EDT Treatment Home Dialysis Hamz[facility] [address] [place], [place] [phone] Nurse, Lance [address] [employer] [address] [place], [place] [address] 03/11/2024 1:00 PM EDT Nurse Only Home Dialysis [facility] [place], [place] [phone] Nurse, [employer] [address] [place], [place] [address] 03/19/2024 1:00 PM EDT Office Visit Home Dialysis Hamzah [address] [place], [place] [address] [facility] Peritoneal Dialysis [address] [place] [facility] [address] 04/11/2024 8:00 AM EDT Treatment Home Dialysis [facility] [place], [place] [phone] Nurse, Lance [employer] [facility] [address] [place], [place] [address] 04/11/2024 1:00 PM EDT Nurse Only Home Dialysis [facility] [place], [place] [phone] Nurse, Lance [employer] [facility] [address] [place], [place] [address] 04/29/2024 1:00 PM EDT Office Visit Home Dialysis Ham[address] [place], [place] [address] [facility], Peritoneal Dialysis [address] [place] [facility] [address] 05/12/2024 8:00 AM EDT Treatment Home Dialysis [facility] [place], [place] [address] Nurse, Lance [employer] [facility] [place], [place] [address] 05/14/2024 1:00 PM EDT Nurse Only Home Dialysis [facility] [place], [place] [phone] Nurse, Lance [employer] [facility] [address] [place], [place] [address] 06/07/2024 1:00 PM EDT Office Visit Home Dialysis [facility] [place], [place] [address] [facility] Peritoneal Dialysis [address] [facility] [place], [place] [address] 06/11/2024 8:00 AM EDT Treatment Home Dialysis [facility] [place], [place] [phone] Nurse, [employer] [facility] [place], [place] [address] 06/11/2024 1:00 PM EDT Nurse Only Home Dialysis [facility] [place], [place] [phone] Nurse, [employer] [facility] [place], [place] [address] 06/25/2024 1:00 PM EDT Office Visit Home Dialysis [facility] [place], [place] [address] [facility] Peritoneal Dialysis [address] [place] [facility] [address] 07/12/2024 8:00 AM EDT Treatment Home Dialysis [facility] [place], [place] [address] Nurse, Lancebaltazar Bee [address] [place], [place] [address] 07/12/2024 1:00 PM EDT Nurse Only Home Dialysis [facility] [place], [place] [phone] Nurse, Lance Lopez [facility] [address] [place], [place] [phone] 07/22/2024 1:00 PM EST Office Visit Home Dialysis [facility] [place], [place] [phone] [facility] Peritoneal Dialysis [address] [place], [place] [id number] 08/11/2024 8:00 AM EST Treatment Home Dialysis [facility] [place], [place] [phone] Nurse, Lance Lopez [facility] [address] [place], [place] [address] 08/12/2024 1:00 PM EST Nurse Only Home Dialysis [facility] [place], [place] [phone] Nurse, Lance Lopez [facility] [address] [place], [place] [address] 08/20/2024 1:00 PM EST Office Visit Home Dialysis [facility] [place], [place] [address] [facility] Peritoneal Dialysis [address] [place] [address] Health Maintenance Due Date Last Done Comments [...] 6:59 AM EST 4 mcg Epoetin Sloan [address] UNIT/ML inj 7,600 Units 7,600 Units, Intravenous, [...] Advance Directives occurred with: Patient Care Teams Wireless Operator Relationship Specialty Start Date End Date Tomer Garner MD [address] [place] [address] PCP - General 09/19/02 documented as of this encounter
--- OUTSIDE RECORDS SUMMARY | 2024-03-17 14:25 | External Medical Summary | Summary of Care ---
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 chronic kidney disease, not on chronic dialysis (HCC) Procedures MN EPOETIN SLOAN, NON-ESRD [place] EPOETIN SLOAN, 100 UNITS ESRD Yonny Saldivar MD [address] [place] [address] [address] [place] [address] Referral ID Status Reason Start Date Expiration Date Visits Re quested Visits Authorized [id number] Closed 08/22/2023 02/21/2024 999 0 Encounter Details [...] (Oral) 1981,04/11 Pneumococcal Conjugate Vacci ne, 20-valent ([id number]) 11/17/2022 Seasonal Influenza, PF, 6 M & [...] Visit Home Dialysis [address] [place] [address] [facility], Peritoneal Dialysis [address] [place] [address] 12/11/2023 8:00 AM EDT Treatment Home Dialysis [facility] [address] [place] [address] Nurse, Lance Lopez [employer] [address] [place] [address] 12/11/2023 1:00 PM EDT Nurse Only Home Dialysis [facility], [place] [phone] Nurse, Lance [address] [employer] [address], [place] [address] 12/26/2023 1:00 PM EDT Office Visit Home Dialysis [facility], [place] [address] [facility] [place], Peritoneal Dialysis [address] [place] [address] 01/10/2024 8:00 AM EDT Treatment Home Dialysis [facility], [place] [phone] Nurse, Lance [address] [employer] [address], [place] [address] 01/10/2024 1:00 PM EDT Nurse Only Home Dialysis [facility], [place] [phone] Nurse, Lance Drive [employer] [address], [place] [address] 02/08/2024 1:00 PM EDT Office Visit Home Dialysis [facility] [place], [place] [address] [facility] [place], Peritoneal Dialysis [address] [facility] [place] [address] 02/10/2024 8:00 AM EDT Treatment Home Dialysis [facility], [place] [phone] Nurse, Lance [address] [facility] [address], [place] [address] 02/12/2024 1:00 PM EDT Nurse Only Home Dialysis [facility], [place] [phone] Nurse, Lance Drive [employer] [address] [place], [place] [address] 03/05/2024 1:00 PM EDT Office Visit Home Dialysis [address], [place] [address] [facility] [place], [facility]itoneal Dialysis [address] [facility] [place] [address] 03/11/2024 8:00 AM EDT Treatment Home Dialysis [facility], [place] [phone] Nurse, Lance [address] [employer] [address] [place], [place] 03/11/2024 1:00 PM EDT Nurse Only Home Dialysis [address], [place] [phone] Nurse, Lance [employer] [address], [place] 03/19/2024 1:00 PM EDT Office Visit Home Dialysis [address] [place], [place] [address] [facility] [place], Peritoneal Dialysis [address] [facility] [place] [address] 04/11/2024 8:00 AM EDT Treatment Home Dialysis [facility], [place] [phone] Nurse, Lance [employer] [address], [place] [address] 04/11/2024 1:00 PM EDT Nurse Only Home Dialysis [address], [place] [phone] Nurse, [employer] [address], [place] [address] 04/29/2024 1:00 PM EDT Office Visit Home Dialysis [address] [place], [place] [address] [facility] [place] [facility], Peritoneal Dialysis [address] [facility] [place] [address] 05/12/2024 8:00 AM EDT Treatment Home Dialysis [facility], [place] [phone] Nurse, Lance [employer] [address], [place] [address] 05/14/2024 1:00 PM EDT Nurse Only Home Dialysis [address], [place] [phone] Nurse, Lance [employer] [address], [place] [address] 06/07/2024 1:00 PM EDT Office Visit Home Dialysis [address], [place] [address] [facility] [place], Peritoneal Dialysis [address] [facility], [place] [address] 06/11/2024 8:00 AM EDT Treatment Home Dialysis [facility], [place] [phone] Nurse, Lance [employer] [address], [place] [address] 06/11/2024 1:00 PM EDT Nurse Only Home Dialysis [facility], [place] [phone] Nurse, Lance [employer] [address], [place] [address] 06/25/2024 1:00 PM EDT Office Visit Home Dialysis [facility], [place] [phone] [facility] [place] [facility], Peritoneal Dialysis [address] [facility] [place] [address] 07/12/2024 8:00 AM EDT Treatment Home Dialysis [facility], [place] [address] Nurse, Lance Lopez [employer] [address], [place] [address] 07/12/2024 1:00 PM EDT Nurse Only Home Dialysis [facility] [phone] Nurse, Lance Lopez [facility] [address], [place] [id number] 07/22/2024 1:00 PM EST Office Visit Home Dialysis [facility] [address] [phone] [facility] [place] [facility], Peritoneal Dialysis [address] [place], [place] [address] 08/11/2024 8:00 AM EST Treatment Home Dialysis [facility], [place] [phone] Nurse, Lance [employer] [address], [place] [address] 08/12/2024 1:00 PM EST Nurse Only Home Dialysis Hamzah [address] [place], [place] [phone] Nurse, Lance Lopez [address] [address], [place] [address] 08/20/2024 1:00 PM EST Office Visit Home Dialysis [facility] [place], [place] [address] [facility] [place], Peritoneal Dialysis [address] [place], [place] [address] Health Maintenance Due Date Last Done Comments [...] 6:46 AM EST 4 mcg Epoetin Sloan [address] UNIT/ML inj 7,600 Units 7,600 Units, Intravenous, [...] Advance Directives occurred with: Patient Care Teams Lobsterman Relationship Specialty Start Date End Date Tomer Garner MD [address] [phone] PCP - General 09/19/02 documented as of this encounter
--- OUTSIDE RECORDS SUMMARY | 2024-03-17 14:26 | External Medical Summary | Summary of Care ---
Author Name Unknown Organization [facility] Address [address] [facility] [place] [address] Phone [phone] Care Team Providers Care Portfolio Director Name Role Phone Tomer Garner MD Primary Care Provider [phone] Reason for Visit * Reason Onset Date Comments Other 11/13/2023 PT CCPD BP and w eight check Encounter Details Date Type Department Care Team ([facility] st Contact Info) Description 11/13/2023 Telephone Home Dialysis [address] [place] [address] Sophia Hernandez, RN Other (PT CCPD BP and weight check ) Allergies No known active allergiesdocumented as of this encounter (statuses as of 11/13/2023) Medications Medication Sig Dispensed Refills Start Date [...] as of this encounter (statuses as of 11/13/2023) Active Problems Problem Noted Date Diagnosed Date [...] as of this encounter (statuses as of 11/13/2023) Resolved Problems Problem Noted Date Diagnosed Date [...] as of this encounter (statuses as of 11/13/2023) Immunizations Name Administration Dates Next Due COVID-19 mRNA, LNP-s, No Pre serve, 2-Dose Series (Moderna) 11/23/2020,10/18/2020 DTP Vaccine 1981,1981,1981 HEP B - Hepatitis B (Dialysis/Immumocomp Pt) 05/02/2023,04/04/2023 MMR - Measles/Mumps/Rubella Vaccine 05/11/1982 OPV - Polio Virus Vaccine (Oral) 1981,04/11 Pneumococcal Conjugate Vacci ne, 20-valent ([id number]) 11/17/2022 Seasonal Influenza, PF, 6 M & [...] Telephone Encounter - Sophia Hernandez RN - 11/13/2023 2:59 PM EST PT called by PD nurse for check on CCPD/CAPD tolerance, BP check and weight check. Per share source 11/10/23 Pre weight 130.3 kg Post tx 127.8 11/11/23 Pre weight 131.8 kg Post tx 129.9kg 11/12/23 Pre weight 131.8kg Post Tx 129.6kg Average UF including all exchanges over each 24 hr period 2900 ml. PT BP 150/101 PT recently restarted metoprolol [address] Lopez pt to restart losartan 25 mg daily in am. Pt expressed verbal understanding of medication adjustments. PT to use 2.5% dianeal concentration for all exchanges at this time. PT reports no SOB, no BLE, no chest pain,no abd pain, or difficulty breathing. PT verbalized understanding to call CCPD clinic or station inspector nephrology with any sudden fluctuations in wt or BP, symptoms of hypotension, new pain, or other concerning symptoms. documented in this encounter Plan of Treatment Upcoming Encounters Date Type Department Care Team (Late st Contact Info) Description 12/04/2023 1:00 PM EDT Office Visit Home Dialysis [address], [place], [place] [phone] [facility], Peritoneal Dialysis [address] [facility] [place] [address] 12/11/2023 8:00 AM EDT Treatment Home Dialysis [address], [place], [place] [phone] [place] [address] 12/11/2023 1:00 PM EDT Nurse Only Home Dialysis [address], [place], [place] [address] Nurse, Lance [address] [employer] [address] [place] [address] 12/26/2023 1:00 PM EDT Office Visit Home Dialysis [address] [place], [place] [address] [facility], Peritoneal Dialysis [address] [place] [address] 01/10/2024 8:00 AM EDT Treatment Home Dialysis [address] [place] [address] Nurse, Lance [address] [employer] [address] [place] [address] 01/10/2024 1:00 PM EDT Nurse Only Home Dialysis Cl[address] [place], [place] [phone] Nurse, Lance [address] [employer] [address] [place] [address] 02/08/2024 1:00 PM EDT Office Visit Home Dialysis [address] [place] [address] [facility], Peritoneal Dialysis [address] [place] [facility] [address] 02/10/2024 8:00 AM EDT Treatment Home Dialysis Cl[address] [place], [place] [address] Nurse, Lance [address] [employer] [address] [place] [address] 02/12/2024 1:00 PM EDT Nurse Only Home Dialysis [address] [place] [address] Nurse, Lance [address] [employer] [address] [place] [address] 03/05/2024 1:00 PM EDT Office Visit Home Dialysis Clau [address] [place], [place] [address] [facility], Peritoneal Dialysis [address] [place] [address] 03/11/2024 8:00 AM EDT Treatment Home Dialysis Clau [address] [place], [place] [address] Nurse, [employer] [address] [place], [place] [address] 03/11/2024 1:00 PM EDT Nurse Only Home Dialysis [address] [place], [place] [phone] Nurse, Lance [employer] [address] [place], [place] [address] 03/19/2024 1:00 PM EDT Office Visit Home Dialysis [address], [place] [address] [facility], Peritoneal Dialysis [address] [place] [facility] [place] [address] 04/11/2024 8:00 AM EDT Treatment Home Dialysis Clau [address] [place], [place] [address] Nurse, Lance [employer] [address] [place] [address] 04/11/2024 1:00 PM EDT Nurse Only Home Dialysis [address] [place], [place] [address] Nurse, [employer] [address] [place] [address] 04/29/2024 1:00 PM EDT Office Visit Home Dialysis Clau [address] [place], [place] [address] [facility], Peritoneal Dialysis [address] [place] [facility] [address] 05/12/2024 8:00 AM EDT Treatment Home Dialysis [address]au [address] [place] [address] Nurse, Lance Lopez [address] [place], [place] [address] 05/14/2024 1:00 PM EDT Nurse Only Home Dialysis [address] [place], [place] [phone] Nurse, Lance Lopez [address] [address], [place] [address] 06/07/2024 1:00 PM EDT Office Visit Home Dialysis [address] [place], [place] [phone] [facility], Peritoneal Dialysis [address] [place] [address] 06/11/2024 8:00 AM EDT Treatment Home Dialysis [address] [place], [place] [phone] Nurse, Lance Lopez [address] [address] [place] [address] 06/11/2024 1:00 PM EDT Nurse Only Home Dialysis [address] [place] [address] Nurse, Lance Lopez [address] [address], [place] [address] 06/25/2024 1:00 PM EDT Office Visit Home Dialysis [address] [place], [place] [address] [facility], Peritoneal Dialysis [address] [facility] [address] 07/12/2024 8:00 AM EDT Treatment Home Dialysis Clau [address] [place], [place] [phone] Nurse, Lance [address] [place] [address] 07/12/2024 1:00 PM EDT Nurse Only Home Dialysis [address] [place], [place] [phone] Nurse, Lance [employer] [address] [place], [place] [address] 07/22/2024 1:00 PM EST Office Visit Home Dialysis [address]au [address], [place] [phone] [facility], Peritoneal Dialysis [address] [facility], [place] [id number] 08/11/2024 8:00 AM EST Treatment Home Dialysis [address], [place] [phone] Nurse, Lance Drive [employer] [address] [place], [place] [address] 08/12/2024 1:00 PM EST Nurse Only Home Dialysis [address] [place], [place] [phone] Nurse, [employer] [address], [place] [phone] 08/20/2024 1:00 PM EST Office Visit Home Dialysis Clau [address] [place], [place] [address] [facility], Peritoneal Dialysis [address] [place] [facility] [place] [address] Health Maintenance Due Date Last Done Comments COVID-19 Vaccine (3 - Moderna risk series) 12/21/2020 11/23/2020, 10/18/2020 Hepatitis B (3 of 4 - Risk Dialysis Recombivax 3-dose series) 10/05/2023 05/02/2023, 04/04/2023 Depression Screening 11/06/2024 11/06/2023 Lipid Panel 05/18/2026 05/18/2021, 12/0 09/2009, 11/11/2004, Additional history exists Diabetes Screening 11/07/2026 11/07/2023, 0 10/31/2023, 10/30/2023, Additional history exists DTaP,Tdap,and Td Vaccines (6 [...] Advance Directives occurred with: Patient Care Teams Portfolio Director Relationship Specialty Start Date End Date Tomer Garner MD [address] [place] [address] PCP - General 09/19/02 documented as of this encounter
--- OUTSIDE RECORDS SUMMARY | 2024-03-17 14:26 | External Medical Summary ---
Author Name Unknown Address Unknown Organization [id number]:LABORATORY [facility] [place] - [address] [place] [id number] Laboratory Report Ordering Provider Test Date Status MARI BOB 11/14/2023 15:48:32 Final Observation Date Value Abnormality Reference (Units ) Status Potassium 11/14/2023 15:48:32 4.1 3.5-5.1 (m mol/L) Final Performing Location LABORATORY C - [address] [place] [id number]
--- OUTSIDE RECORDS SUMMARY | 2024-03-17 14:26 | External Medical Summary ---
Author Name Unknown Address Unknown Organization [id number]:[facility] [place] [address] [place] [address] Laboratory Report Ordering Provider Test Date Status MARI BOB 11/14/2023 15:48:32 Final Observation Date Value Abnormality Reference (Units ) Status ALT (Alanine aminotransferase) 11/14/2023 15:48:32 32 10-50 (U/L) Final Performing Location LABORATORY [facility] - [address] [place] [address]
--- OUTSIDE RECORDS SUMMARY | 2024-03-17 14:26 | External Medical Summary ---
Author Name Unknown Address Unknown Organization [id number]:LABORATORY [facility] [place] - [address] [place] [address] Laboratory Report Ordering Provider Test Date Status MARI BOB 11/14/2023 15:48:32 Final Observation Date Value Abnormality Reference (Units ) Status Parathyrin.intact [Mass/volume] in Serum or Plasma 11/14/2023 15:48:32 457 Above high normal 15-65 (pg/mL) Final Performing Location LABORATORY [facility] [place] - [address] [place] [id number]
--- OUTSIDE RECORDS SUMMARY | 2024-03-17 14:26 | External Medical Summary ---
Author Name Unknown Address Unknown Organization [id number]:LABORATORY [facility] - [address] [place] [address] Laboratory Report Ordering Provider Test Date Status MARI BOB 11/14/2023 15:48:32 Final Observation Date Value Abnormality Reference (Units ) Status CO2 11/14/2023 15:48:32 19 Below low normal 22- 32 (mmol/L) Final Performing Location LABORATORY [facility] - [address] [place] [address]
--- OUTSIDE RECORDS SUMMARY | 2024-03-17 14:26 | External Medical Summary | Summary of Care ---
Author Name Unknown Organization [facility] Address [address] [place] [address] Phone [phone] Care Team Providers Care Hair Cutter Name Role Phone Tomer Garner MD Primary Care Provider [phone] Encounter Details Date Type Department Care Team (Late st Contact Info) Description 11/14/2023 Orders Only Nephrology, [place] [address] [place] [address] Akosua Lopez MD [address] [place] [address] ESRD (end stage renal disease) on dialysis ([facility])* Allergies No known active allergiesdocumented as of this encounter (statuses as of 11/14/2023) Medications Medication Sig Dispensed Refills Start Date [...] as of this encounter (statuses as of 11/14/2023) Active Problems Problem Noted Date Diagnosed Date [...] as of this encounter (statuses as of 11/14/2023) Resolved Problems Problem Noted Date Diagnosed Date [...] as of this encounter (statuses as of 11/14/2023) Immunizations Name Administration Dates Next Due COVID-19 mRNA, LNP-s, No Pre serve, 2-Dose Series (Moderna) 11/23/2020,10/18/2020 DTP Vaccine 1981,1981,1981 HEP B - Hepatitis B (Dialysis/Immumocomp Pt) 05/02/2023,04/04/2023 MMR - Measles/Mumps/Rubella Vaccine 05/11/1982 OPV - Polio Virus Vaccine (Oral) 1981,04/11 Pneumococcal Conjugate Vacci ne, 20-valent ([id number]) 11/17/2022 Seasonal Influenza, PF, 6 M & [...] [address] [place] [address] [facility] [place] [address] [place] [address] 12/11/2023 8:00 AM EDT Treatment Home Dialysis Hamz[address] [place] [address] Nurse, [address] [employer] [address] [place] [address] 12/11/2023 1:00 PM EDT Nurse Only Home Dialysis [address], [place] [address] Nurse, [address] [employer] [address] [place] [address] 12/26/2023 1:00 PM EDT Office Visit Home Dialysis Hamz[address] [place] [address] [facility] [place] Dialysis [address] [facility] [place], [place] [address] 01/10/2024 8:00 AM EDT Treatment Home Dialysis Hamzah [address] [place] [address] Nurse, [address] [employer] [address] [place] [address] 01/10/2024 1:00 PM EDT Nurse Only Home Dialysis [address] [place] [address] Nurse, [address] [employer] [address] 02/08/2024 1:00 PM EDT Office Visit Home Dialysis Hamzah [address], [place] [address] [facility] [place] [address] [place] [address] 02/10/2024 8:00 AM EDT Treatment Home Dialysis Hamz[address] [place], [place] [address] Nurse, Lancebasestone [employer] [address], [place] [address] 02/12/2024 1:00 PM EDT Nurse Only Home Dialysis [address] [place], [place] [address] Nurse, Lance Zinch [address] [address], [place] [address] 03/05/2024 1:00 PM EDT Office Visit Home Dialysis Ham[address], [place] [address] [facility] [place] Dialysis [address] [place] [address] 03/11/2024 8:00 AM EDT Treatment Home Dialysis Ham[address] [place], [place] [address] Nurse, Lance Zinch [address] [address], [place] [address] 03/11/2024 1:00 PM EDT Nurse Only Home Dialysis [address] [place], [place] [address] Nurse, [employer] [address], [place] [address] 03/19/2024 1:00 PM EDT Office Visit Home Dialysis Ham[address], [place] [address] [facility] [place] Dialysis [address] [place] [facility] [place] [address] 04/11/2024 8:00 AM EDT Treatment Home Dialysis [address], [place] [phone] Nurse, Lance Zinch [employer] [address], [place] [address] 04/11/2024 1:00 PM EDT Nurse Only Home Dialysis Ham[address], [place] [phone] Nurse, Lance [address] [employer] [address] [place], [place] [address] 04/29/2024 1:00 PM EDT Office Visit Home Dialysis [address] [place], [place] [address] [facility], Peritoneal Dialysis [address] [facility] [address] 05/12/2024 8:00 AM EDT Treatment Home Dialysis [address] [place], [place] [address] Nurse, Lance Zinch [address], [place] [address] 05/14/2024 1:00 PM EDT Nurse Only Home Dialysis [address], [place] [phone] Nurse, [employer] [address], [place] [address] 06/07/2024 1:00 PM EDT Office Visit Home Dialysis [address] [place], [place] [address] [facility], Peritoneal Dialysis [address] [place] [place] [address] 06/11/2024 8:00 AM EDT Treatment Home Dialysis Hamz[address], [place] [phone] Nurse, [employer] [address], [place] [address] 06/11/2024 1:00 PM EDT Nurse Only Home Dialysis [address] [place], [place] [address] Nurse, Lance Lopez [address], [place] [address] 06/25/2024 1:00 PM EDT Office Visit Home Dialysis [facility] [place], [place] [address] [facility] [place] [address] [place] [address] 07/12/2024 8:00 AM EDT Treatment Home Dialysis [address] [place], [place] [address] Nurse, Lance Zinch [address], [place] [address] 07/12/2024 1:00 PM EDT Nurse Only Home Dialysis [address] [place], [place] [phone] Nurse, Lance Lopez [address] [place] [address] 07/22/2024 1:00 PM EST Office Visit Home Dialysis [address] [place], [place] [address] [facility] [place]ialysis [address] [facility] [place] [address] 08/11/2024 8:00 AM EST Treatment Home Dialysis [address] [place], [place] [address] Nurse, Lancebaltazar Bee [address] [place], [place] [address] 08/12/2024 1:00 PM EST Nurse Only Home Dialysis [address] [place], [place] [address] Nurse, Lance Lopez [address] [place] [address] 08/20/2024 1:00 PM EST Office Visit Home Dialysis [address] [place] [address] [facility], Peritoneal Dialysis [address] [place] [address] Scheduled Orders Name Type Priority Associated Diagnoses Orde r Schedule RENAL FUNCTION PANEL Lab Routine ESRD (end stage renal disease) on dialysis (HCC) Expected: 11/14/2023, Expires: 11/13/2024 Health Maintenance Due Date Last Done Comments [...] Advance Directives occurred with: Patient Care Teams Hair Cutter Relationship Specialty Start Date End Date Tomer Garner MD [address] [phone] PCP - General 09/19/02 documented as of this encounter
--- OUTSIDE RECORDS SUMMARY | 2024-03-17 14:26 | External Medical Summary | Summary of Care ---
Author Name Unknown Organization [facility] Address [address] [place] [address] Phone [phone] Care Team Providers Care Wool Spotter Name Role Phone Tomer Garner MD Primary Care Provider + [phone] Reason for Visit * Reason Comments Outpatient Testing Encounter Details Date Type Department Care Team ([facility] st Contact Info) Description 11/14/2023 3:30 PM EST Laboratory Laboratory, [place] [address] [place] [address] [facility] [address] [place] [address] Pre-transplant evaluation for ESRD (end stage renal [...] (Oral) 1981,04/11 Pneumococcal Conjugate Vacci ne, 20-valent ([id number]) 11/17/2022 Seasonal Influenza, PF, 6 M & [...] [address] [phone] [facility] [place] Peritoneal Dialysis [address] [place] [address] 12/11/2023 8:00 AM EDT Treatment Home Dialysis [address] [address] [place] [address] Nurse, [employer] [place] [address] [place] [address] 12/11/2023 1:00 PM EDT Nurse Only Home Dialysis [facility] [address] [place] [address] Nurse, [address] [facility] [place] [address] 12/26/2023 1:00 PM EDT Office Visit Home Dialysis [facility] [address] [place] [address] [facility] [place] Peritoneal Dialysis [address] [place] [facility] [place] [address] 01/10/2024 8:00 AM EDT Treatment Home Dialysis [facility] [address] [place] [address] Nurse, [address] [facility] [address] [place] [address] 01/10/2024 1:00 PM EDT Nurse Only Home Dialysis [address] [place], [place] [address] Nurse, [address] [employer] [address] [place] [address] 02/08/2024 1:00 PM EDT Office Visit Home Dialysis [address] [place], [place] [address] [facility] [place] Peritoneal Dialysis [address] [place] [address] 02/10/2024 8:00 AM EDT Treatment Home Dialysis [address] [place] [address] Nurse, [address] [facility] [address] [place] [address] 02/12/2024 1:00 PM EDT Nurse Only Home Dialysis [address] [place], [place] [phone] Nurse, Lance [address] [facility] [address] [place] [address] 03/05/2024 1:00 PM EDT Office Visit Home Dialysis [address] [place] [address] [facility] [place] Peritoneal Dialysis [address] [place] [facility] [place] [address] 03/11/2024 8:00 AM EDT Treatment Home Dialysis [facility] [address] [place], [place] [address] Nurse, [address] [employer] [address] [place] [address] 03/11/2024 1:00 PM EDT Nurse Only Home Dialysis [address] [place] [address] Nurse, [address] [facility] [address] [place] [address] 03/19/2024 1:00 PM EDT Office Visit Home Dialysis [address] [place], [place] [address] [facility], Peritoneal Dialysis [address] [place] [address] 04/11/2024 8:00 AM EDT Treatment Home Dialysis [address] [place], [place] [address] Nurse, [employer] [address] [place], [place] [address] 04/11/2024 1:00 PM EDT Nurse Only Home Dialysis [address] [place], [place] [phone] Nurse, Lance [address] [place], [place] [address] 04/29/2024 1:00 PM EDT Office Visit Home Dialysis [facility] [address] [place], [place] [address] [facility] [place] Peritoneal Dialysis [address] [place] [facility] [place] [address] 05/12/2024 8:00 AM EDT Treatment Home Dialysis [facility] [address] [place], [place] [address] Nurse, Lance [address] [place] [address] 05/14/2024 1:00 PM EDT Nurse Only Home Dialysis [address] [place], [place] [address] Nurse, [employer] [address] [place] [address] 06/07/2024 1:00 PM EDT Office Visit Home Dialysis [facility] [address] [place], [place] [address] [facility] Peritoneal Dialysis [address] [place] [facility] [place] [address] 06/11/2024 8:00 AM EDT Treatment Home Dialysis [address] [place] [address] Nurse, Lance Lopez [address] [place], [place] [address] 06/11/2024 1:00 PM EDT Nurse Only Home Dialysis [facility] [address] [place], [place] [phone] Nurse, Lance Lopez [address] [place], [place] [address] 06/25/2024 1:00 PM EDT Office Visit Home Dialysis [facility] [address] [place], [place] [address] [facility] [place] Peritoneal Dialysis [address] [place] [address] 07/12/2024 8:00 AM EDT Treatment Home Dialysis [facility] [address] [place], [place] [phone] Nurse, Lance [address] [place], [place] [address] 07/12/2024 1:00 PM EDT Nurse Only Home Dialysis [facility] [address] [place], [place] [address] Nurse, Lance Lopez [address] [place], [place] [address] 07/22/2024 1:00 PM EST Office Visit Home Dialysis [facility] [address] [place], [place] [address] [facility] [place] Peritoneal Dialysis [address] [place] [address] 08/11/2024 8:00 AM EST Treatment Home Dialysis [facility] [address] [place], [place] [address] Nurse, Lance Lopez [address] [place], [place] [address] 08/12/2024 1:00 PM EST Nurse Only Home Dialysis [facility] [address] [place] [address] [address] Nurse, [address] [phone] 08/20/2024 1:00 PM EST Office Visit Home Dialysis [facility] [address] [phone] [facility] [place] Peritoneal Dialysis [address] [facility] [place] [address] Pending Results Name Type Priority Associated Diagnoses Date /Time ALT Lab STAT 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 chronic kidney disease, not on chronic dialysis ([facility]) ESRD on peritoneal dialysis ([facility]) 11/14/2023 3:48 PM EST BUN Lab STAT 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 chronic kidney disease, not on chronic dialysis ([facility]) ESRD on peritoneal dialysis ([facility]) 11/14/2023 3:48 PM EST POTASSIUM Lab STAT 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 chronic kidney disease, not on chronic dialysis ([facility]) ESRD on peritoneal dialysis ([facility]) 11/14/2023 3:48 PM EST HGB Lab STAT 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 chronic kidney disease, not on chronic dialysis ([facility]) ESRD on peritoneal dialysis ([facility]) 11/14/2023 3:48 PM EST IRON SCREEN, INCLUDING TIBC Lab STAT 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 chronic kidney disease, not on chronic dialysis ([facility]) ESRD on peritoneal dialysis ([facility]) 11/14/2023 3:48 PM EST ADJUSTED CALCIUM PHOSPHORUS PRODUCT Lab STAT 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 chronic kidney disease, not on chronic dialysis ([facility]) ESRD on peritoneal dialysis ([facility]) 11/14/2023 3:48 PM EST CREATININE Lab Routine 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 chronic kidney disease, not on chronic dialysis ([facility]) ESRD on peritoneal dialysis ([facility]) 11/14/2023 3:48 PM EST CO2 Lab STAT 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 chronic kidney disease, not on chronic dialysis ([facility]) ESRD on peritoneal dialysis ([facility]) 11/14/2023 3:48 PM EST PTH Lab STAT 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 chronic kidney disease, not on chronic dialysis ([facility]) ESRD on peritoneal dialysis ([facility]) 11/14/2023 3:48 PM EST MONTHLY HLA CLASS 1 & 2 W/REFLEX, [...] as of this encounter Visit Diagnoses Diagnosis Pre-transplant evaluation [...] Advance Directives occurred with: Patient Care Teams Wool Spotter Relationship Specialty Start Date End Date Tomer Garner MD [address] [place] [address] PCP - General 09/19/02 documented as of this encounter
--- OUTSIDE RECORDS SUMMARY | 2024-03-17 14:26 | External Medical Summary ---
Author Name Unknown Address Unknown Organization K01:[facility] - [address] [place] [address] Laboratory Report Ordering Provider Test Date Status MARI BOB 11/14/2023 15:48:32 Final Observation Date Value Abnormality Reference (Units ) Status BUN 11/14/2023 15:48:32 55 Above high normal 6- 20 (mg/dL) Final Performing Location [facility] - [address] [place] [address]
--- OUTSIDE RECORDS SUMMARY | 2024-03-17 14:26 | External Medical Summary ---
Author Name Unknown Address Unknown Organization : Laboratory Report Ordering Provider Test Date Status ANGELA DIAS 11/14/2023 15:46:36 Final Observation Date Value Abnormality Reference (Units ) Status REFERENCE LAB SCANNED REPORT 11/14/2023 15:46:36 See Scanned Report Final Performing Location
--- OUTSIDE RECORDS SUMMARY | 2024-03-17 14:26 | External Medical Summary ---
Author Name Unknown Address Unknown Organization [id number]:[facility] - [address] [place] [address] Laboratory Report Ordering Provider Test Date Status MARI BOB 11/14/2023 15:48:32 Final Observation Date Value Abnormality Reference (Units ) Status BUN 11/14/2023 15:48:32 55 Above high normal 6-20 (mg/dL) Final Creatinine 11/14/2023 15:48:32 21.7 Above high normal 0.6-1.2 (mg/dL) Final Glomerular filtration rate/1.73 sq M.predicted [Volume Rate/Area] in Serum, Plasma or Blood by Creatinine-based formula (CKD-EPI) 11/14/2023 15:48:32 2 Below low normal >=60 (mL/min) Final eGFR is calculated based on the CKD-EPI 2020 equation SODIUM 11/14/2023 15:48:32 140 135-146 (m mol/L) Final Potassium 11/14/2023 15:48:32 4.1 3.5-5.1 (m mol/L) Final Cl 11/14/2023 15:48:32 95 Below low normal 98- 107 (mmol/L) Final CO2 11/14/2023 15:48:32 19 Below low normal 22- 32 (mmol/L) Final Anion gap 11/14/2023 15:48:32 26 Above high normal 7- 15 (mmol/L) Final Glucose 11/14/2023 15:48:32 84 70-120 (mg /dL) Final Calcium 11/14/2023 15:48:32 8.5 8.4-10.2 ( mg/dL) Final Albumin 11/14/2023 15:48:32 4.1 3.8-5.0 (g /dL) Final Phosphate 11/14/2023 15:48:32 13.6 Above high normal 2. 5-4.8 (mg/dL) Final Performing Location [facility] - [address] [place] [address]
--- OUTSIDE RECORDS SUMMARY | 2024-03-17 14:26 | External Medical Summary | Summary of Care ---
Author Name Unknown Organization [facility] Address [address] [place] [address] Phone [phone] Care Team Providers Care Welder Explosion Name Role Phone Tomer Garner MD Primary Care Provider [phone] Reason for Visit * Reason Onset Date Comments Other 11/14/2023 PT CCPD, CAPD ch marcy Encounter Details Date Type Department Care Team (Late st Contact Info) Description 11/14/2023 Telephone Home Dialysis [facility] [place] [address] [place] [address] Sophia Hernandez, RN Other (PT CCPD, CAPD check) Allergies No known active allergiesdocumented [...] (Oral) 1981,04/11 Pneumococcal Conjugate Vacci ne, 20-valent ([id number]) 11/17/2022 Seasonal Influenza, PF, 6 M & [...] Miscellaneous Notes * Telephone Encounter - Sophia Hernandez, RN - 11/14/2023 2:51 PM EST PD nurse spoke to patient on CCPD, CAPD tolerance. PT reports no abd pain, SOB, no BLE. PT had 3087ml UF on CCPD and one CAPD exchange. PT weight stable at 130.0 kg PT BP 141/[address] Lopez pt is not to start new ordered losartan 25 mg daily at this time due to BP decreased and increased fluid removal. 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 documented in this encounter Plan of Treatment Upcoming Encounters Date Type Department Care Team (Late st Contact Info) Description 11/14/2023 3:30 PM EST Laboratory Laboratory, [place] [address] [place] [address] [place], Lab [address] [place] [address] 12/04/2023 1:00 PM EDT Office Visit Home Dialysis [address] [phone] [facility] Peritoneal Dialysis [address] [facility] [address] [place] [address] 12/11/2023 8:00 AM EDT Treatment Home Dialysis [address] [address] [phone] [address] [facility] [address] [phone] 12/11/2023 1:00 PM EDT Nurse Only Home Dialysis [address] [phone] Nurse, [address] [facility] [address] [place] [address] 12/26/2023 1:00 PM EDT Office Visit Home Dialysis [address] [place], [place] [address] [facility] Peritoneal Dialysis [address] [place] [address] 01/10/2024 8:00 AM EDT Treatment Home Dialysis [address] [place], [place] [address] Nurse, [address] [employer] [address] [place] [address] 01/10/2024 1:00 PM EDT Nurse Only Home Dialysis [address] [place], [place] [address] Nurse, [address] [employer] [address] [place], [place] [address] 02/08/2024 1:00 PM EDT Office Visit Home Dialysis [address] [place] [address] [facility] Peritoneal Dialysis [address] [place] [address] 02/10/2024 8:00 AM EDT Treatment Home Dialysis [address] [place], [place] [address] Nurse, [address] [employer] [address] [place] [address] 02/12/2024 1:00 PM EDT Nurse Only Home Dialysis [address] [place], [place] [address] Nurse, [address] [employer] [address] [place] [address] 03/05/2024 1:00 PM EDT Office Visit Home Dialysis [address], [place], [place] [address] [facility] Peritoneal Dialysis [address] [place] [facility] [place] [address] 03/11/2024 8:00 AM EDT Treatment Home Dialysis [address] [place], [place] [address] Nurse, [address] [place], [place] [address] 03/11/2024 1:00 PM EDT Nurse Only Home Dialysis [address] [place], [place] [address] Nurse, [address] [place], [place] [address] 03/19/2024 1:00 PM EDT Office Visit Home Dialysis [address] [place], [place] [address] [facility] Peritoneal Dialysis [address] [place] [facility] [place] [address] 04/11/2024 8:00 AM EDT Treatment Home Dialysis [address] [place], [place] [address] Nurse, Lance [employer] [facility] [place] [address] 04/11/2024 1:00 PM EDT Nurse Only Home Dialysis [address] [place], [place] [address] Nurse, [address] [employer] [address] [place] [address] 04/29/2024 1:00 PM EDT Office Visit Home Dialysis [address], [place] [address] [facility] Peritoneal Dialysis [address] [place] [address] 05/12/2024 8:00 AM EDT Treatment Home Dialysis [address] [place] [address] Nurse, [address] [employer] [address] [place] [address] 05/14/2024 1:00 PM EDT Nurse Only Home Dialysis [address] [place], [place] [address] Nurse, [address] [place], [place] [address] 06/07/2024 1:00 PM EDT Office Visit Home Dialysis [address] [place] [address] [facility] Peritoneal Dialysis [address] [place] [address] 06/11/2024 8:00 AM EDT Treatment Home Dialysis [address] [place], [place] [phone] Nurse, [address] [place] [address] 06/11/2024 1:00 PM EDT Nurse Only Home Dialysis [address] [place], [place] [phone] Nurse, [address] [employer] [address] [place] [address] 06/25/2024 1:00 PM EDT Office Visit Home Dialysis [address] [place], [place] [address] [facility] Peritoneal Dialysis [address] [place] [address] 07/12/2024 8:00 AM EDT Treatment Home Dialysis [address] [place], [place] [address] Nurse, [address] [place] [address] 07/12/2024 1:00 PM EDT Nurse Only Home Dialysis [address] [place], [place] [phone] Nurse, Lance [employer] [address] [place], [place] [address] 07/22/2024 1:00 PM EST Office Visit Home Dialysis [address], [place] [phone] [facility] Peritoneal Dialysis [address] [facility] [place] [address] 08/11/2024 8:00 AM EST Treatment Home Dialysis [address] [place], [place] [phone] Nurse, [employer] [address] [place], [place] [address] 08/12/2024 1:00 PM EST Nurse Only Home Dialysis [address] [place], [place] [address] Nurse, [employer] [facility] [address] [place], [place] [address] 08/20/2024 1:00 PM EST Office Visit Home Dialysis [address] [place], [place] [address] [facility] Peritoneal Dialysis [address] [facility], [place] [id number] Health Maintenance Due Date Last Done Comments [...] Advance Directives occurred with: Patient Care Teams Welder Explosion Relationship Specialty Start Date End Date Tomer Garner MD [address] [place] [address] PCP - General 09/19/02 documented as of this encounter
--- OUTSIDE RECORDS SUMMARY | 2024-03-17 14:26 | External Medical Summary ---
Author Name Unknown Address Unknown Organization [id number]:[facility] [place] [address] [place] [address] Laboratory Report Ordering Provider Test Date Status KIMBERLY BOBMUDEZ 11/14/2023 15:48:32 Final Observation Date Value Abnormality Reference (Units ) Status Albumin 11/14/2023 15:48:32 4.1 3.8-5.0 (g/dL) Final Calcium 11/14/2023 15:48:32 8.5 8.4-10.2 (mg/dL) Final Phosphate 11/14/2023 15:48:32 13.6 Above high normal 2.5-4.8 (mg/dL) Final Calcium [Moles/volume] corrected for albumin in Serum or Plasma 11/14/2023 15:48:32 8.5 (mg/dL) Final Calcium-phosphorus product panel - Serum or Plasma 11/14/2023 15:48:32 115.6 Final Performing Location [facility] [place] [address] [place] [address]
--- OUTSIDE RECORDS SUMMARY | 2024-03-17 14:26 | External Medical Summary | Summary of Care ---
Author Name Unknown Organization [facility] Address [address] [facility] [place] [address] Phone [phone] Care Team Providers Care Ore Feeder Name Role Phone Tomer Garner MD Primary Care Provider [phone] Reason for Visit * Reason Comments CAPD Follow-Up Encounter Details Date Type Department Care Team (Late st Contact Info) Description 09/12/2023 8:00 AM EST Treatment Home Dialysis [address] [place] [address] Nurse, [address] [facility] [place] [address] Anemia in chronic renal disease*; ESRD (end stage renal disease) ([facility]); Anemia of chronic renal failure, stage 5 (HCC) Allergies No known active allergiesdocumented as of this encounter (statuses as of 11/10/2023) Medications Medication Sig Dispensed Refills Start Date [...] as of this encounter (statuses as of 11/10/2023) Active Problems Problem Noted Date Diagnosed Date [...] as of this encounter (statuses as of 11/10/2023) Resolved Problems Problem Noted Date Diagnosed Date [...] as of this encounter (statuses as of 11/10/2023) Immunizations Name Administration Dates Next Due COVID-19 mRNA, LNP-s, No Pre serve, 2-Dose Series (Moderna) 11/23/2020,10/18/2020 DTP Vaccine 1981,1981,1981 HEP B - Hepatitis B (Dialysis/Immumocom[facility] Pt) 05/02/2023,04/04/2023 MMR - Measles/Mumps/Rubella Vaccine 05/11/1982 OPV - Polio Virus Vaccine (Oral) 1981,04/11 Pneumococcal Conjugate Vacci ne, 20-valent ([id number]) 11/17/2022 Seasonal Influenza, PF, 6 M & [...] Progress Notes * Karrie Russo TECH - 11/10/2023 2:16 PM EST Monthly billing note, labs released. documented in this encounter Plan of Treatment Upcoming Encounters Date Type Department Care Team (Late st Contact Info) Description 12/04/2023 1:00 PM EDT Office Visit Home Dialysis Hamzah [address] [place] [address] [facility] Peritoneal Dialysis [address] [facility] [place] [address] 12/11/2023 8:00 AM EDT Treatment Home Dialysis Hamzah [address] [place] [address] [facility] [address] [place] [address] 12/11/2023 1:00 PM EDT Nurse Only Home Dialysis Hamzah [address] [place] [address] Nurse, [address] [facility] [address] [place] [address] 12/26/2023 1:00 PM EDT Office Visit Home Dialysis Hamzah Lucas [address] [place] [address] [facility] Peritoneal Dialysis [address] [place] [address] 01/10/2024 8:00 AM EDT Treatment Home Dialysis Hamzah Lucas [address] [place], [place] [phone] Nurse, Lance [address] [place] [address] 01/10/2024 1:00 PM EDT Nurse Only Home Dialysis Hamzah [address] [place], [place] [phone] Nurse, Lance [address] [facility] [address] [place] [address] 02/08/2024 1:00 PM EDT Office Visit Home Dialysis Hamzah [address] [place] [address] [facility] Peritoneal Dialysis [address] [place] [address] 02/10/2024 8:00 AM EDT Treatment Home Dialysis Hamzah [address] [place] [address] Nurse, [address] [facility] [address] [place] [address] 02/12/2024 1:00 PM EDT Nurse Only Home Dialysis Hamzah [address] [place] [address] Nurse, [address] [facility] [address] [place] [address] 03/05/2024 1:00 PM EDT Office Visit Home Dialysis Hamzah [address] [place] [address] [facility], Peritoneal Dialysis [address] [place] [address] 03/11/2024 8:00 AM EDT Treatment Home Dialysis Hamzah [address] [place], [place] [address] Nurse, [address] [facility] [address] [place], [place] [address] 03/11/2024 1:00 PM EDT Nurse Only Home Dialysis Hamzah [address] [place], [place] [phone] Nurse, Lance [address] [facility] [address] [place], [place] [address] 03/19/2024 1:00 PM EDT Office Visit Home Dialysis Hamzah [address] [place], [place] [address] [facility] Peritoneal Dialysis [address] [place] [address] 04/11/2024 8:00 AM EDT Treatment Home Dialysis Hamzah Lucas Dr [address] [place], [place] [address] Nurse, [address] [facility] [address] [place], [place] [address] 04/11/2024 1:00 PM EDT Nurse Only Home Dialysis Hamzah [address] [place], [place] [address] Nurse, Lance Usentric [facility] [address] [place] [address] 04/29/2024 1:00 PM EDT Office Visit Home Dialysis Hamzah [address] [place], [place] [address] [facility], Peritoneal Dialysis [address] [facility] [place] [address] 05/12/2024 8:00 AM EDT Treatment Home Dialysis Hamzah [address] [place] [address] Nurse, Lance Jessica [facility] [address] [place], [place] 05/14/2024 1:00 PM EDT Nurse Only Home Dialysis Hamzah [address] [place], [place] [phone] Nurse, Lance Lopez [facility] [address] [place], [place] 06/07/2024 1:00 PM EDT Office Visit Home Dialysis Hamzah [address] Dr [address] [place], [place] [phone] [facility] Peritoneal Dialysis [address] [place] [address] 06/11/2024 8:00 AM EDT Treatment Home Dialysis Hamzah [address] [place], [place] [phone] Nurse, Lance Lopez [facility] [address] [place], [place] [address] 06/11/2024 1:00 PM EDT Nurse Only Home Dialysis Hamzah [address] [place], [place] [phone] Nurse, Lancebaltazar Bee [address] [place], [place] [address] 06/25/2024 1:00 PM EDT Office Visit Home Dialysis Hamzah [address] [place], [place] [address] [facility] Peritoneal Dialysis [address] [place] [address] 07/12/2024 8:00 AM EDT Treatment Home Dialysis Hamzah [address] [place], [place] [phone] Nurse, Lance Bee [address] [place], [place] [address] 07/12/2024 1:00 PM EDT Nurse Only Home Dialysis Hamzah [address] [place], [place] [phone] Nurse, [employer] [facility] [address] [place], [place] [address] 07/22/2024 1:00 PM EST Office Visit Home Dialysis Hamzah [address] [place], [place] [phone] [facility] Peritoneal Dialysis [address] [place], [place] [id number] 08/11/2024 8:00 AM EST Treatment Home Dialysis Hamzah [address] [place], [place] [phone] Nurse, [employer] [address] [place], [place] [address] 08/12/2024 1:00 PM EST Nurse Only Home Dialysis Hamzah [address] [place], [place] [phone] Nurse, [employer] [facility] [address] [place], [place] [phone] 08/20/2024 1:00 PM EST Office Visit Home Dialysis Hamzah [address] [place], [place] [address] [facility], Peritoneal Dialysis [address] [facility] [place] [address] Health Maintenance Due Date Last Done Comments [...] Date/Time Associated Diagnosis Comments 25-HYDROXY VITAMIN D STAT 09/20/2023 1:25 PM EST Anemia in chronic renal disease ESRD (end stage renal disease) (HCC) Anemia of chronic renal failure, stage 5 (HCC) ADJUSTED CALCIUM PHOSPHORUS PRODUCT STAT 09/20/2023 1:25 PM EST Anemia in chronic renal disease ESRD (end stage renal disease) (HCC) Anemia of chronic renal failure, stage 5 (HCC) HEPATITIS B SURFACE ANTIGEN STAT 09/20/2023 1:25 PM EST Anemia in chronic renal disease ESRD (end stage renal disease) (HCC) Anemia of chronic renal failure, stage 5 (HCC) PRE DIALYSIS BUN STAT 09/20/2023 1:25 PM EST Anemia in chronic renal disease ESRD (end stage renal disease) (HCC) Anemia of chronic renal failure, stage 5 (HCC) IRON SCREEN, INCLUDING TIBC STAT 09/20/2023 1:25 PM EST Anemia in chronic renal disease ESRD (end stage renal disease) (HCC) Anemia of chronic renal failure, stage 5 (HCC) ALT STAT 09/20/2023 1:25 PM EST Anemia in chronic renal disease ESRD (end stage renal disease) (HCC) Anemia of chronic renal failure, stage 5 (HCC) AST STAT 09/20/2023 1:25 PM EST Anemia in chronic renal disease ESRD (end stage renal disease) (HCC) Anemia of chronic renal failure, stage 5 (HCC) SODIUM STAT 09/20/2023 1:25 PM EST Anemia in chronic renal disease ESRD (end stage renal disease) (HCC) Anemia of chronic renal failure, stage 5 (HCC) POTASSIUM STAT 09/20/2023 1:25 PM EST Anemia in chronic renal disease ESRD (end stage renal disease) (HCC) Anemia of chronic renal failure, stage 5 (HCC) PHOSPHORUS STAT 09/20/2023 1:25 PM EST Anemia in chronic renal disease ESRD (end stage renal disease) (HCC) Anemia of chronic renal failure, stage 5 (HCC) ALKALINE PHOSPHATASE STAT 09/20/2023 1:25 PM EST Anemia in chronic renal disease ESRD (end stage renal disease) (HCC) Anemia of chronic renal failure, stage 5 (HCC) PTH STAT 09/20/2023 1:25 PM EST Anemia in chronic renal disease ESRD (end stage renal disease) (HCC) Anemia of chronic renal failure, stage 5 (HCC) CREATININE STAT 09/20/2023 1:25 PM EST Anemia in chronic renal disease ESRD (end stage renal disease) (HCC) Anemia of chronic renal failure, stage 5 (HCC) CHLORIDE STAT 09/20/2023 1:25 PM EST Anemia in chronic renal disease ESRD (end stage renal disease) (HCC) Anemia of chronic renal failure, stage 5 (HCC) CO2 STAT 09/20/2023 1:25 PM EST Anemia in chronic renal disease ESRD (end stage renal disease) (HCC) Anemia of chronic renal failure, stage 5 (HCC) CALCIUM STAT 09/20/2023 1:25 PM EST Anemia in chronic renal disease ESRD (end stage renal disease) (HCC) Anemia of chronic renal failure, stage 5 (HCC) CBC STAT 09/20/2023 1:25 PM EST Anemia in chronic renal disease ESRD (end stage renal disease) (HCC) Anemia of chronic renal failure, stage 5 (HCC) FERRITIN STAT 09/20/2023 1:25 PM EST Anemia in chronic renal disease ESRD (end stage renal disease) (HCC) Anemia of chronic renal failure, stage 5 (HCC) ALBUMIN STAT 09/20/2023 1:25 PM EST Anemia in chronic renal disease ESRD (end stage renal disease) (HCC) Anemia of chronic renal failure, stage 5 (HCC) documented in this encounter Results * 25-HYDROXY VITAMIN D (09/20/2023 1:25 PM EST) 25-Hydroxy Vitamin D 52 >19 ng/mL 09/20/2023 9:26 PM EST LAB[facility]ORY [facility] Blood Venous blood specimen / Unknown Venipuncture / Unknown 09/20/2023 1:25 PM EST 09/20/2023 5:57 PM EST Narrative LAB[facility]ORY [facility] - 09/20/2023 9:26 PM EST Deficient: <20 ng/mL Insufficient: 20-29 ng/mL Recommended/Optimum:30-50 ng/mL Vitamin D intoxication is rare. If suspicious of Vitamin D toxicity, evaluation of serum Calcium and PTH is recommended. Yonny Saldivar MD LAB BLOOD ORDERAB LES LAB[facility]ORY [facility] [address] [place] [address] * (ABNORMAL) PTH (09/20/2023 1:25 PM EST) PTH 94(H) 15 - 65 pg/mL 09/20/2023 9:26 PM EST [facility]ORY [facility] Blood Venous blood specimen / Unknown Venipuncture / Unknown 09/20/2023 1:25 PM EST 09/20/2023 5:57 PM EST Yonny Saldivar MD LAB BLOOD ORDERAB LES LAB[facility]ATORY [facility] [address] [place] [address] * (ABNORMAL) FERRITIN (09/20/2023 1:25 PM EST) Pathologist [facility] Ferritin 868(H) 30 - 400 ng/mL 09/20/2023 9:26 PM EST [facility] Blood Venous blood specimen / Unknown Venipuncture / Unknown 09/20/2023 1:25 PM EST 09/20/2023 5:57 PM EST Yonny Saldivar MD LAB BLOOD ORDERAB LES LAB[facility]ORY [facility] [address] [place] [address] * ALKALINE PHOSPHATASE (09/20/2023 1:25 PM EST) [facility] Alkaline Phosphatase 60 35 - 130 U/L 09/20/2023 8:49 PM EST [facility] Blood Venous blood specimen / Unknown Venipuncture / Unknown 09/20/2023 1:25 PM EST 09/20/2023 5:57 PM EST Yonny Saldivar MD LAB BLOOD ORDERAB LES LAB[facility]ORY [facility] [address] [place] [address] * HEPATITIS B SURFACE ANTIGEN (09/20/2023 1:25 PM EST) Pathologist [facility] Hepatitis B Surface Antigen Negative Negative 09/20/2023 9:05 PM EST [facility] Blood Venous blood specimen / Unknown Venipuncture / Unknown 09/20/2023 1:25 PM EST 09/20/2023 5:57 PM EST Yonny Saldivar MD LAB BLOOD ORDERAB LES Performing Organization Address City/[facility]/ZIP Co de Phone Number LABORATORY [facility] [address] [place] [address] * (ABNORMAL) IRON SCREEN, INCLUDING TIBC (09/20/2023 1:25 PM EST) Pathologist [facility] Iron 63 45 - 176 ug/dL 09/20/2023 8:45 PM EST LABORATORY C Iron Binding Capacity 243(L) 250 - 425 ug/dL 09/20/2023 8:45 PM EST [facility] Transferrin Saturation Percent 26 15 - 55 % 09/20/2023 8:45 PM EST [facility] Blood Venous blood specimen / Unknown Venipuncture / Unknown 09/20/2023 1:25 PM EST 09/20/2023 5:57 PM EST Yonny Saldivar MD LAB BLOOD ORDERAB LES Performing Organization Address City/[facility]/ZIP Co de Phone Number LABORATORY [facility] [address] [place] [address] * CHLORIDE (09/20/2023 1:25 PM EST) [facility] Chloride 99 98 - 107 mmol/L 09/20/2023 8:49 PM EST [facility] Blood Venous blood specimen / Unknown Venipuncture / Unknown 09/20/2023 1:25 PM EST 09/20/2023 5:57 PM EST Yonny Saldivar MD LAB BLOOD ORDERAB LES Performing Organization Address City/[facility] Co de Phone Number LAB[facility]ATORY [facility] [address] [place] [address] * (ABNORMAL) ADJUSTED CALCIUM PHOSPHORUS PRODUCT (09/20/2023 1:25 PM EST) Pathologist [facility] Albumin 4.6 3.8 - 5.0 g/dL 09/20/2023 8:49 PM EST [facility] Calcium 8.2(L) 8.4 - 10.2 mg/dL 09/20/2023 8:49 PM EST [facility] Phosphorus 8.4(H) 2.5 - 4.8 mg/dL 09/20/2023 8:49 PM EST [facility] Adjusted Calcium 8.2 mg/dL 09/20/2023 8:49 PM EST [facility] Calcium Phosphorus Product 68.9 09/20/2023 8:49 PM EST [facility] Blood Venous blood specimen / Unknown Venipuncture / Unknown 09/20/2023 1:25 PM EST 09/20/2023 5:57 PM EST Yonny Saldivar MD LAB BLOOD ORDERAB LES Performing Organization Address City/[facility]/ZIP Co de Phone Number LABORATORY C [address] [place] [address] * ALT (09/20/2023 1:25 PM EST) ALT 19 10 - 50 U/L 09/20/2023 8:49 PM EST [facility] Blood Venous blood specimen / Unknown Venipuncture / Unknown 09/20/2023 1:25 PM EST 09/20/2023 5:57 PM EST Yonny Saldivar MD LAB BLOOD ORDERAB LES Performing Organization Address City/[facility]/ZIP Co de Phone Number LAB[facility]ORY [facility] [address] [place] [address] * (ABNORMAL) CO2 (09/20/2023 1:25 PM EST) CO2 21(L) 22 - 32 mmol/L 09/20/2023 8:49 PM EST [facility] Blood Venous blood specimen / Unknown Venipuncture / Unknown 09/20/2023 1:25 PM EST 09/20/2023 5:57 PM EST Yonny Saldivar MD LAB BLOOD ORDERAB LES Performing Organization Address City/[facility]/ZIP Co de Phone Number LAB[facility]ORY [facility] [address] [place] [address] * SODIUM (09/20/2023 1:25 PM EST) Sodium 140 135 - 146 mmol/L 09/20/2023 8:45 PM EST LABORATORY [facility] Blood Venous blood specimen / Unknown Venipuncture / Unknown 09/20/2023 1:25 PM EST 09/20/2023 5:57 PM EST Yonny Saldivar MD LAB BLOOD ORDERAB LES Performing Organization Address [facility] de Phone Number LAB[facility]ATORY [facility] [address] [place] [address] * PRE DIALYSIS BUN (09/20/2023 1:25 PM EST) Pathologist [facility] Pre-Dialysis BUN 09/21/2023 8:20 AM EST [facility] Comment:Changed result: Prev iously reported as 72 mg/dL on 09/20/2023 at 2036 EST. Blood Venous blood specimen / Unknown Venipuncture / Unknown 09/20/2023 1:25 PM EST 09/20/2023 5:57 PM EST Narrative LABORATORY C - 09/21/2023 8:20 AM EST Order released in error. Yonny Saldivar MD LAB BLOOD ORDERAB LES Performing Organization Address [facility] de Phone Number LABORATORY [facility] [address] [place] [address] * (ABNORMAL) CBC (09/20/2023 1:25 PM EST) WBC 6.36 4.00 - 10.80 K/uL 09/20/2023 7:42 PM EST [facility] RBC 4.00 4.50 - 5.25 M/uL 09/20/2023 7:42 PM EST [facility] HGB 12.2(L) 14.0 - 16.8 g/dL 09/20/2023 7:42 PM EST [facility] HCT 38.2(L) 40.0 - 48.4 % 09/20/2023 7:42 PM EST [facility] MCV 95.5 82.0 - 99.5 fL 09/20/2023 7:42 PM EST LAB[facility]ORY [facility] MCH 30.5 27.0 - 34.0 pg 09/20/2023 7:42 PM EST LABORATORY [facility] MCHC 31.9 32.0 - 36.0 g/dL 09/20/2023 7:42 PM EST [facility] RDW 14.4 11.5 - 15.5 % 09/20/2023 7:42 PM EST [facility] PLT 179 140 - 400 K/uL 09/20/2023 7:42 PM EST [facility] MPV 9.6 6.6 - 11.1 fL 09/20/2023 7:42 PM EST [facility] nRBCs 0 <=0 /100 WBCs 09/20/2023 7:42 PM EST [facility] Blood Venous blood specimen / Unknown Venipuncture / Unknown 09/20/2023 1:25 PM EST 09/20/2023 5:57 PM EST Yonny Saldivar MD LAB BLOOD ORDERAB LES [facility] [address] [place] [address] * (ABNORMAL) POTASSIUM (09/20/2023 1:25 PM EST) Potassium 5.2(H) 3.5 - 5.1 mmol/L 09/20/2023 8:45 PM EST [facility] Blood Venous blood specimen / Unknown Venipuncture / Unknown 09/20/2023 1:25 PM EST 09/20/2023 5:57 PM EST Yonny Saldivar MD LAB BLOOD ORDERAB LES [facility] [address] [place] [address] * AST (09/20/2023 1:25 PM EST) AST 14 10 - 50 U/L 09/20/2023 8:49 PM EST [facility] Blood Venous blood specimen / Unknown Venipuncture / Unknown 09/20/2023 1:25 PM EST 09/20/2023 5:57 PM EST Yonny Saldivar MD LAB BLOOD ORDERAB LES Performing Organization Address [facility] Co de Phone Number LABORATORY [facility] [address] [place] [address] * (ABNORMAL) CREATININE (09/20/2023 1:25 PM EST) Creatinine 16.8(H) 0.6 - 1.2 mg/dL 09/20/2023 8:45 PM EST [facility] Estimated Glomerular Filtration Rate 3(L) >=60 mL/min 09/20/2023 8:45 PM EST [facility] Comment:eGFR is calculated b ased on the CKD-EPI 2020 equation Blood Venous blood specimen / Unknown Venipuncture / Unknown 09/20/2023 1:25 PM EST 09/20/2023 5:57 PM EST Yonny Saldivar MD LAB BLOOD ORDERAB LES Performing Organization Address [facility] de Phone Number LAB[facility]ATORY [facility] [address] [place] [address] * (ABNORMAL) PHOSPHORUS (09/20/2023 1:25 PM EST) Phosphorus 8.4(H) 2.5 - 4.8 mg/dL 09/20/2023 8:45 PM EST [facility] Blood Venous blood specimen / Unknown Venipuncture / Unknown 09/20/2023 1:25 PM EST 09/20/2023 5:57 PM EST Yonny Saldivar MD LAB BLOOD ORDERAB LES Performing Organization Address [facility] de Phone Number LABORATORY [facility] [address] [place] [address] * ALBUMIN (09/20/2023 1:25 PM EST) Albumin 4.6 3.8 - 5.0 g/dL 09/20/2023 8:49 PM EST [facility] Blood Venous blood specimen / Unknown Venipuncture / Unknown 09/20/2023 1:25 PM EST 09/20/2023 5:57 PM EST Yonny Saldivar MD LAB BLOOD ORDERAB LES Performing Organization Address City/[facility] Co de Phone Number LAB[facility]ORY [facility] [address] [place] [address] * (ABNORMAL) CALCIUM (09/20/2023 1:25 PM EST) Calcium 8.2(L) 8.4 - 10.2 mg/dL 09/20/2023 8:49 PM EST [facility] Blood Venous blood specimen / Unknown Venipuncture / Unknown 09/20/2023 1:25 PM EST 09/20/2023 5:57 PM EST Yonny Saldivar MD LAB BLOOD ORDERAB LES Performing Organization Address City/[facility] Co de Phone Number LAB[facility]ORY [facility] [address] [place] [address] documented in this encounter Visit Diagnoses Diagnosis Anemia in chronic renal disease- Primary Anemia in chronic kidney disease ESRD (end stage renal disease) (HCC) End stage renal disease Anemia of chronic renal failure, stage 5 (HCC) documented in this encounter Advance Directives [...] Advance Directives occurred with: Patient Care Teams Ore Feeder Relationship Specialty Start Date End Date Tomer Garner MD [address] [facility] [place] [address] PCP - General 09/19/02 documented as of this encounter
--- OUTSIDE RECORDS SUMMARY | 2024-03-17 14:26 | External Medical Summary | Summary of Care ---
Author Name Unknown Organization [facility] Address [address] [facility] [place] [address] Phone [phone] Care Team Providers Care Bench Boring Machine Operator Name Role Phone Tomer Garner MD Primary Care Provider [phone] Reason for Visit * Reason Onset Date Comments Other 11/10/2023 [facility] Encounter Details Date Type Department Care Team (Late st Contact Info) Description 11/10/2023 Telephone Home Dialysis Nathaniel [address] [place] [address] [place] [address] Sophia Hernandez, RN Other ([facility]) Allergies No known active allergiesdocumented as of [...] (Oral) 1981,04/11 Pneumococcal Conjugate Vacci ne, 20-valent ([id number]) 11/17/2022 Seasonal Influenza, PF, 6 M & [...] Telephone Encounter - Sophia Hernandez RN - 11/10/2023 2:43 PM EST Pt called by Pd nurse for CCPD and CAPD check for blood pressures, fluid removal, weight gain, and any concerning symptoms. PT BP entered into share source as 159/102. Pt instructed, per Dr. Castellano resume metoprolol 100 mg daily and continue to monitor BP before and after CCPD treatments and to report any sudden decreased in BP or dizziness, lightheadedness. PT educated and expressed verbal understanding on reporting changes and flucuations in vital signs and weight immediately to CCPD clinic. PT instructed to monitor fluid intake and to closely follow daily intake to daily output with dialysis. 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 documented in this encounter Plan of Treatment Upcoming Encounters Date Type Department Care Team (Late st Contact Info) Description 12/04/2023 1:00 PM EDT Office Visit Home Dialysis [address] [place] [address] [address] [phone] [facility], Peritoneal Dialysis [address] [place] [address] 12/11/2023 8:00 AM EDT Treatment Home Dialysis Hamzah [address] [place] [address] [address] Nurse, [employer] [facility] [address] [address] 12/11/2023 1:00 PM EDT Nurse Only Home Dialysis Hamzah [address] [place] [address] Nurse, [employer] [facility] [address] [place] [address] 12/26/2023 1:00 PM EDT Office Visit Home Dialysis Hamzah [address], [place] [address] [facility], Peritoneal Dialysis [address] [place] [address] 01/10/2024 8:00 AM EDT Treatment Home Dialysis Hamzah Lucas [address], [place] [address] Nurse, [employer] [facility] [address], [place] [address] 01/10/2024 1:00 PM EDT Nurse Only Home Dialysis Hamzah Lucas [address], [place] [phone] Nurse, Lance [address] [facility] [address], [place] [address] 02/08/2024 1:00 PM EDT Office Visit Home Dialysis Hamzah Lucas [address], [place] [address] [facility] Per[place] Dialysis [address] [facility] [address] 02/10/2024 8:00 AM EDT Treatment Home Dialysis Hamzah Lucas [address], [place] [phone] Nurse, Lance [address] [facility] [address], [place] [address] 02/12/2024 1:00 PM EDT Nurse Only Home Dialysis Hamzah [address] [place], [place] [address] Nurse, Lance [employer] [place] [address] [place] [address] 03/05/2024 1:00 PM EDT Office Visit Home Dialysis Hamzah Lucas [address] [place], [place] [address] [facility], Peritoneal Dialysis [address] [facility] [address] 03/11/2024 8:00 AM EDT Treatment Home Dialysis Hamzah Lucas [address] [place] [address] Nurse, Lance Lopez [facility] [address], [place] [address] 03/11/2024 1:00 PM EDT Nurse Only Home Dialysis Hamzah Lucas [address], [place] [phone] Nurse, Lance [address] [facility] [address] [place], [place] [address] 03/19/2024 1:00 PM EDT Office Visit Home Dialysis Hamzah Lucas [address], [place] [address] [facility] Peritoneal Dialysis [address] [place] [address] 04/11/2024 8:00 AM EDT Treatment Home Dialysis Hamzah Lucas [address], [place] [phone] Nurse, Lance Lopez [facility] [address], [place] [address] 04/11/2024 1:00 PM EDT Nurse Only Home Dialysis Hamzah Lucas [address] [place], [place] [address] Nurse, Lance Jessica Bee [address], [place] [address] 04/29/2024 1:00 PM EDT Office Visit Home Dialysis Hamzah Lucas [address] [place], [place] [address] [facility] Peritoneal Dialysis [address] [place] [address] 05/12/2024 8:00 AM EDT Treatment Home Dialysis Hamzah Lucas [address] [place], [place] [phone] Nurse, Lance [employer] [place] [address], [place] 05/14/2024 1:00 PM EDT Nurse Only Home Dialysis Hmazah Lucas Dr [address] [place], [place] [phone] Nurse, Lance [address] [facility] [address], [place] [address] 06/07/2024 1:00 PM EDT Office Visit Home Dialysis Hamzah Lucas [address], [place] [phone] [facility] Peritoneal Dialysis [address] [place] [address] 06/11/2024 8:00 AM EDT Treatment Home Dialysis Hamzah Lucas [address], [place] [phone] Nurse, Lance [address] [facility] [address], [place] 06/11/2024 1:00 PM EDT Nurse Only Home Dialysis Hamzah Lucas Dr [address], [place] [phone] Nurse, Lance [employer] [place] [address], [place] 06/25/2024 1:00 PM EDT Office Visit Home Dialysis Hamzah Lucas [address], [place] [phone] [facility] Peritoneal Dialysis [address] [facility], [place] [address] 07/12/2024 8:00 AM EDT Treatment Home Dialysis Hamzah Lucas [address], [place] [phone] Nurse, Lance [employer] [facility] [address], [place] 07/12/2024 1:00 PM EDT Nurse Only Home Dialysis Hamzah Lucas [address], [place] [phone] Nurse, [place], [place] [address] 07/22/2024 1:00 PM EST Office Visit Home Dialysis Hamzah Lucas Dr [address] [place], [place] [phone] [facility] Peritoneal Dialysis [address] [facility] [place] [id number] 08/11/2024 8:00 AM EST Treatment Home Dialysis Hamzah Lucas [address] [place], [place] [address] Nurse, Lance [employer] [facility] [place], [place] [address] 08/12/2024 1:00 PM EST Nurse Only Home Dialysis Hamzah Lucas [address] [place], [place] [phone] Nurse, [place] [employer] [place] [address] 08/20/2024 1:00 PM EST Office Visit Home Dialysis Hamzah Lucas Dr [address] [place], [place] [address] [facility], Peritoneal Dialysis [address] [place], [place] [id number] Health Maintenance Due Date Last Done Comments COVID-19 Vaccine (3 - Moderna risk series) 12/21/2020 11/23/2020, 10/18/2020 Hepatitis B (3 of 4 - Risk Dialysis Recombivax 3-dose series) 10/05/2023 05/02/2023, 04/04/2023 Depression Screening 11/06/2024 11/06/2023 Lipid Panel 05/18/2026 05/18/2021, 12/09/2009, 11/11/2004, Additional history exists Diabetes Screening 11/07/2026 [...] Advance Directives occurred with: Patient Care Teams Bench Boring Machine Operator Relationship Specialty Start Date End Date Tomer Garner MD [address] [id number] PCP - General 09/19/02 documented as of this encounter
--- OUTSIDE RECORDS SUMMARY | 2024-03-17 14:26 | External Medical Summary | Summary of Care ---
Author Name Unknown Organization [facility] Address [address] [place] [address] Phone [phone] Care Team Providers Care Shipping Lead Name Role Phone Tomer Garner MD Primary Care Provider [phone] Reason for Visit * Reason Comments Outpatient Testing Encounter Details Date Type Department Care Team ([facility] st Contact Info) Description 11/14/2023 3:30 PM EST Laboratory Laboratory, [place] [address] [place] [address] [facility] [address] [place] [address] Pre-transplant evaluation for ESRD (end stage renal [...] (Oral) 1981,04/11 Pneumococcal Conjugate Vacci ne, 20-valent ([id number]) 11/17/2022 Seasonal Influenza, PF, 6 M & [...] [address]au [address] [id number] [facility], Peritoneal Dialysis [address] [place] [address] 12/11/2023 8:00 AM EDT Treatment Home Dialysis Clau [address] [place] [address] Nurse, Proenza Sch[employer] [facility] [address] [place] [address] 12/11/2023 1:00 PM EDT Nurse Only Home Dialysis Clau [address] [place] [address] [address] Nurse, [address] [facility] [address] [place] [address] 12/26/2023 1:00 PM EDT Office Visit Home Dialysis Clau Lucas [address] [place] [address] [address] [facility], Peritoneal Dialysis [address] [place] [facility] [address] 01/10/2024 8:00 AM EDT Treatment Home Dialysis Clau [address] [place] [address] [address] Nurse, [address] [facility] [address] [place] [address] 01/10/2024 1:00 PM EDT Nurse Only Home Dialysis Clau [address] [place], [place] [address] Nurse, [address] [facility] [address] [place] [address] 02/08/2024 1:00 PM EDT Office Visit Home Dialysis Clau [address] [place], [place] [address] [facility], Peritoneal Dialysis [address] [place] [address] 02/10/2024 8:00 AM EDT Treatment Home Dialysis Clau [address] [place] [address] Nurse, [address] [facility] [address] [place] [address] 02/12/2024 1:00 PM EDT Nurse Only Home Dialysis Clau [address] [place], [place] [phone] Nurse, Lance [address] [facility] [address] [place] [address] 03/05/2024 1:00 PM EDT Office Visit Home Dialysis Clau [address] [place] [address] [facility], Peritoneal Dialysis [address] [place] [facility] [address] 03/11/2024 8:00 AM EDT Treatment Home Dialysis Clau [address] [place], [place] [address] Nurse, [address] [facility] [address] [place] [address] 03/11/2024 1:00 PM EDT Nurse Only Home Dialysis Clau [address] [place] [address] Nurse, [address] [employer] [address] [place] [address] 03/19/2024 1:00 PM EDT Office Visit Home Dialysis Clau [address] [place], [place] [address] [facility], Peritoneal Dialysis [address] [place] [address] 04/11/2024 8:00 AM EDT Treatment Home Dialysis Clau [address] [place], [place] [address] Nurse, [employer] [facility] [address] [place], [place] [address] 04/11/2024 1:00 PM EDT Nurse Only Home Dialysis Clau [address] [place], [place] [phone] Nurse, Lance [employer] [facility] [address] [place], [place] [address] 04/29/2024 1:00 PM EDT Office Visit Home Dialysis Clau [address] [place], [place] [address] [facility], Peritoneal Dialysis [address] [place] [facility] [address] 05/12/2024 8:00 AM EDT Treatment Home Dialysis Clau [address] [place], [place] [address] Nurse, Lance [employer] [place] [address] [place] [address] 05/14/2024 1:00 PM EDT Nurse Only Home Dialysis Clau [address] [place], [place] [address] Nurse, Proenza Sch[employer] [place] [address] [place] [address] 06/07/2024 1:00 PM EDT Office Visit Home Dialysis Clau [address] [place], [place] [address] [facility], Peritoneal Dialysis [address] [place] [facility] [address] 06/11/2024 8:00 AM EDT Treatment Home Dialysis Clau [address] [place] [address] Nurse, Lance Lopez [facility] [address] [place], [place] [address] 06/11/2024 1:00 PM EDT Nurse Only Home Dialysis Clau [address] [place], [place] [phone] Nurse, Lance Lopez [facility] [address] [place], [place] [address] 06/25/2024 1:00 PM EDT Office Visit Home Dialysis Clau [address] [place], [place] [address] [facility], Peritoneal Dialysis [address] [place] [address] 07/12/2024 8:00 AM EDT Treatment Home Dialysis Clau [address], [place] [phone] Nurse, Lance [employer] [facility] [address] [place], [place] [address] 07/12/2024 1:00 PM EDT Nurse Only Home Dialysis Clau [address] [place], [place] [address] Nurse, Lance Lopez [facility] [address], [place] [address] 07/22/2024 1:00 PM EST Office Visit Home Dialysis Clau [address] [place], [place] [address] [facility], Peritoneal Dialysis [address] [place] [address] 08/11/2024 8:00 AM EST Treatment Home Dialysis Clau [address] [place], [place] [address] Nurse, Lance Lopez [facility] [address] [place], [place] [address] 08/12/2024 1:00 PM EST Nurse Only Home Dialysis Clau [address] [place] [address] [address] [address], [address] [facility] [address] [place] [id number] 08/20/2024 1:00 PM EST Office Visit Home Dialysis Clau [address] [phone] [facility], Peritoneal Dialysis [address] [facility] [place] [address] Pending Results Name Type Priority Associated Diagnoses Date /Time ALT Lab STAT 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 chronic kidney disease, not on chronic dialysis ([facility]) ESRD on peritoneal dialysis ([facility]) 11/14/2023 3:48 PM EST BUN Lab STAT 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 chronic kidney disease, not on chronic dialysis ([facility]) ESRD on peritoneal dialysis ([facility]) 11/14/2023 3:48 PM EST POTASSIUM Lab STAT 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 chronic kidney disease, not on chronic dialysis ([facility]) ESRD on peritoneal dialysis ([facility]) 11/14/2023 3:48 PM EST HGB Lab STAT 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 chronic kidney disease, not on chronic dialysis ([facility]) ESRD on peritoneal dialysis ([facility]) 11/14/2023 3:48 PM EST IRON SCREEN, INCLUDING TIBC Lab STAT 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 chronic kidney disease, not on chronic dialysis ([facility]) ESRD on peritoneal dialysis ([facility]) 11/14/2023 3:48 PM EST ADJUSTED CALCIUM PHOSPHORUS PRODUCT Lab STAT 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 chronic kidney disease, not on chronic dialysis ([facility]) ESRD on peritoneal dialysis ([facility]) 11/14/2023 3:48 PM EST CREATININE Lab Routine 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 chronic kidney disease, not on chronic dialysis ([facility]) ESRD on peritoneal dialysis ([facility]) 11/14/2023 3:48 PM EST CO2 Lab STAT 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 chronic kidney disease, not on chronic dialysis ([facility]) ESRD on peritoneal dialysis ([facility]) 11/14/2023 3:48 PM EST PTH Lab STAT 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 chronic kidney disease, not on chronic dialysis ([facility]) ESRD on peritoneal dialysis ([facility]) 11/14/2023 3:48 PM EST MONTHLY HLA [...] Advance Directives occurred with: Patient Care Teams Shipping Lead Relationship Specialty Start Date End Date Tomer Garner MD [address] [place] [address] PCP - General 09/19/02 documented as of this encounter
--- OUTSIDE RECORDS SUMMARY | 2024-03-17 14:26 | External Medical Summary ---
Author Name Unknown Address Unknown Organization [id number]:[facility] - [address] [place] [address] Laboratory Report Ordering Provider Test Date Status MARI BOB 11/14/2023 15:48:32 Final Study includes results for T ransferrin Saturation, Binding Capacity, and Iron. Observation Date Value Abnormality Reference (Units ) Status Iron 11/14/2023 15:48:32 154 45-176 (ug/dL) Final Iron-binding capacity 11/14/2023 15:48:32 214 Below low normal 250-425 (ug/dL) Final Transferrin Sat % 11/14/2023 15:48:32 72 Above high normal 15-55 (%) Final Performing Location [facility] - [address] [place] [address]
--- OUTSIDE RECORDS SUMMARY | 2024-03-17 14:26 | External Medical Summary | Summary of Care ---
Author Name Unknown Organization [facility] Address [address] [place] [address] Phone [phone] Care Team Providers Care Oncologist Name Role Phone Tomer Garner MD Primary Care Provider [phone] Reason for Visit * Reason Comments Hemodialysis * Episode Based Medications (Routine) - Closed Specialty Diagnoses / Procedures Referred By Contac t Referred To Contact Diagnoses ESRD on peritoneal dialysis (HCC) 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 chronic kidney disease, not on chronic dialysis (HCC) Procedures CO EPOETIN SLOAN, NON-ESRD CO EPOETIN SLOAN, 100 UNITS ESRD Yonny Saldivar MD [address] [place] [address] [address] [place] [address] Referral ID Status Reason Start Date Expiration Date Visits Re quested Visits Authorized [id number] Closed 08/22/2023 02/21/[phone] Encounter Details Date Type Department Care Team (Late st Contact Info) Description 05/30/2023 5:30 AM EDT Treatment Hemodialysis [address] [place] [address] ESRD (end stage renal disease) (HCC)*; Anemia of chronic renal failure, stage 5 (HCC); Anemia in chronic kidney disease, on chronic dialysis (HCC); 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 chronic kidney disease, not on chronic dialysis (HCC) Allergies No known active allergiesdocumented as of this encounter (statuses as of 11/15/2023) Medications Medication Sig Dispensed Refills Start Date End Date Status Lovastatin 10 MG Oral TabletIndication s:Kidney replaced by transplant Take 1 Tablet by mouth in the morning. 90 Tablet 3 3 Active cycloSPORINE Modified 25 MG Oral CapsuleIndicatio ns:Kidney replaced by transplant Take 2 capsules in the morning and 2 capsules in the evening 360 Capsule 3 3 Active Folic Acid 1 MG Oral Tablet Take 1 Tablet by mouth in the morning. 90 Tablet 1 3 Active Additional Information Patient not taking.Reported on 11/03/2023 Febuxostat 80 MG Oral Tablet (Uloric)Indicati ons:Chronic gout without tophus, unspecified cause, unspecified site Take 1 Tablet by mouth in the morning. 90 Tablet 3 3 Active Cinacalcet HCl 30 MG Oral Tablet (Sensipar) Take 1 Tablet by mouth in the morning. 90 Tablet 3 3 Active Additional Information Patient not taking.Reported on 11/03/2023 Metoprolol Succinate ER 100 MG Oral Tablet Extended Release 24 Hour (Toprol XL) Take 1 Tablet (100 mg) by mouth in the morning. 120 Tablet 3 2 09/29/19 24 Discontinued Vitamin D3 50 MCG (1999 UT) Oral Capsule Take 1 Capsule by mouth in the morning. 90 Capsule 3 3 06/27/20 23 Discontinued(Med ication/Dose Changed) NIFEdipine ER 30 MG Oral Tablet Extended Release 24 Hour (Adalat CC) Take 1 Tablet by mouth in the morning. 60 Tablet 2 3 06/07/20 23 Discontinued(Ref ill) Mycophenolate Mofetil 500 MG Oral Tablet (CellCept) Take 1 Tablet by mouth in the morning and 1 Tablet before bedtime. 360 Tablet 1 3 10/31/19 24 Discontinued Losartan Potassium 25 MG Oral Tablet (Cozaar)Indicati ons:HTN, goal below 130/80 Take 1 Tablet by mouth in the morning. 90 Tablet 3 3 10/27/19 24 Discontinued metOLazone 5 MG Oral Tablet (Zaroxolyn) Take 1 Tablet by mouth in the morning. 30 Tablet 2 3 08/08/20 23 Discontinued(Med ication List Clean Up) Torsemide 100 MG Oral Tablet (Demadex) Take 1 Tablet by mouth in the morning and 1 Tablet in the evening. (not beyond 4pm). 180 Tablet 1 3 08/08/20 Discontinued(Med ication List Clean Up) oxyCODONE HCl 5 MG Oral Tablet (Oxy IR) Take 1 Tablet by mouth every 6 hours as needed for Pain, Severe. 10 Tablet 0 3 08/21/20 Discontinued Calcium Acetate (Phos Binder) 667 MG Oral Capsule (Phoslo) Take 2 Capsules by mouth with meals and snacks. 210 Capsule 5 3 06/27/20 Discontinued(Ref ill) documented as of this encounter (statuses as of 11/15/2023) Active Problems Problem Noted Date Diagnosed Date [...] as of this encounter (statuses as of 11/15/2023) Resolved Problems Problem Noted Date Diagnosed Date [...] as of this encounter (statuses as of 11/15/2023) Immunizations Name Administration Dates Next Due COVID-19 mRNA, LNP-s, No Pre serve, 2-Dose Series (Moderna) 11/23/2020,10/18/2020 DTP Vaccine 1981,1981,1981 HEP B - Hepatitis B (Dialysis/Immumocomp Pt) 05/02/2023,04/04/2023 MMR - Measles/Mumps/Rubella Vaccine 05/11/1982 OPV - Polio Virus Vaccine (Oral) 1981,04/11 Pneumococcal Conjugate Vacci ne, 20-valent ([id number]) 11/17/2022 Seasonal Influenza, PF, 6 M & above, IM , (FluLaval or Fluzone) 06/24/2020 Seasonal Influenza, Quadriva lent Hd (Fluzone Hd) [...] Sign Reading Time Taken Comments Blood Pressure 137/84 05/30/2023 10:00 AM EDT Pulse 74 05/30/2023 10:00 AM EDT Temperature 36.5 C (97.7 F) 05/30/2023 9:50 AM ED T Respiratory Rate 12 05/30/2023 9:50 AM EDT Oxygen Saturation - - Inhaled Oxygen [...] Home Dialysis [address], [place], [place] [phone] [facility] [place] [address] [place] [address] 12/11/2023 8:00 AM EDT Treatment Home Dialysis [facility] [place] [address] Nurse, [address] [employer] [address] [place] [address] 12/11/2023 1:00 PM EDT Nurse Only Home Dialysis [facility] [place] [address] Nurse, Lance [address] [facility] [address], [place] [address] 12/26/2023 1:00 PM EDT Office Visit Home Dialysis [facility] [address] [place] [address] [facility] [place] [address] [facility] [place], [place] [address] 01/10/2024 8:00 AM EDT Treatment Home Dialysis [facility] [place] [address] Nurse, [address] [employer] [address] [place] [address] 01/10/2024 1:00 PM EDT Nurse Only Home Dialysis [facility] [phone] Nurse, Lance [address] [employer] [address], [place] [address] 02/08/2024 1:00 PM EDT Office Visit Home Dialysis [facility], [place] [address] [facility] [place] [address] [place] [address] 02/10/2024 8:00 AM EDT Treatment Home Dialysis [facility] [place], [place] [address] Nurse, Lance [employer] [facility] [address] [place] [address] 02/12/2024 1:00 PM EDT Nurse Only Home Dialysis [facility], [place] [address] Nurse, [employer] [facility], [place] [address] 03/05/2024 1:00 PM EDT Office Visit Home Dialysis [facility] [place] [address] [facility] [place] [address] [place] [address] 03/11/2024 8:00 AM EDT Treatment Home Dialysis [facility], [place] [address] Nurse, [employer] [address], [place] [address] 03/11/2024 1:00 PM EDT Nurse Only Home Dialysis [address], [place], [place] [address] Nurse, Lance [employer] [facility] [place] [address] 03/19/2024 1:00 PM EDT Office Visit Home Dialysis [facility], [place] [address] [facility] [address] [place] [address] 04/11/2024 8:00 AM EDT Treatment Home Dialysis [facility], [place] [address] Nurse, [address] [employer] [address], [place] [address] 04/11/2024 1:00 PM EDT Nurse Only Home Dialysis [facility], [place] [phone] Nurse, Lance [employer] [facility] [address], [place] [address] 04/29/2024 1:00 PM EDT Office Visit Home Dialysis [facility], [place] [address] [facility] [place] [address] [place] [facility] [place] [place] [address] 05/12/2024 8:00 AM EDT Treatment Home Dialysis [facility], [place] [phone] Nurse, [employer] [address], [place] [address] 05/14/2024 1:00 PM EDT Nurse Only Home Dialysis [facility], [place] [address] Nurse, Lance [employer] [facility] [address], [place] [address] 06/07/2024 1:00 PM EDT Office Visit Home Dialysis [facility], [place] [address] [facility] [place] [address] [place] [address] 06/11/2024 8:00 AM EDT Treatment Home Dialysis [facility] [place] [address] Nurse, [address] [employer] [address] [place] [address] 06/11/2024 1:00 PM EDT Nurse Only Home Dialysis [address] [place], [place] [address] Nurse, [address] [employer] [address] [place] [address] 06/25/2024 1:00 PM EDT Office Visit Home Dialysis [facility] [place] [address] [facility] [place] [address] [place] [address] 07/12/2024 8:00 AM EDT Treatment Home Dialysis [facility] [place], [place] [phone] Nurse, [employer] [address] [place] [address] 07/12/2024 1:00 PM EDT Nurse Only Home Dialysis [address] [place], [place] [phone] Nurse, [address] [employer] [address] [place] [address] 07/22/2024 1:00 PM EST Office Visit Home Dialysis [place] [address] [facility] [place] [address] [place] [address] 08/11/2024 8:00 AM EST Treatment Home Dialysis [facility] [place] [address] Nurse, [address] [employer] [address] [place] [address] 08/12/2024 1:00 PM EST Nurse Only Home Dialysis [address] [place] [address] [address] Nurse, [address] [facility] [address] [place] [address] 08/20/2024 1:00 PM EST Office Visit Home Dialysis [facility] [place] [address] [facility], Peritoneal Dialysis [address] [place] [id number] Health Maintenance Due Date Last Done Comments [...] 2 MCG/ML inj 4 mcg 4 mcg, IV Push, ONCE, On Mon05/30/23 at 0645, For 1 dose Given 05/30/2023 6:14 AM EDT 4 mcg Epoetin [place]loan [address] UNIT/ML inj 10,600 Units 10,600 Units, Intravenous, ONCE, On Mon05/30/23 at 0645, For 1 dose Given 05/30/2023 6:15 AM EDT 10,600 Units hEParin 1,000 unit/mL infusion for dialysis 500 Units/hr (0.5 mL/hr), Hemodialysis, CONTINUOUS, Starting on Mon05/30/23 at 0645, Until Mon09/25/23 at 1359, Maintenance: Stop 1 hour before dialysis end in AVF/AVG. Continue through dialysis in CVC. The total delivered dose is approximately 2,500 to 5,000 units, based on weight and treatment duration assumptions Start Infusion 05/30/2023 5:55 AM EDT 500 Units/hr 0.5 mL/hr hEParin 1000 UNIT/ML inj 2,000 Units 2,000 Units, Intravenous, ONCE, On Mon05/30/23 at 0645, For 1 dose, Loading dose Given 05/30/2023 5:50 AM EDT 2,000 Units Iron Sucrose (Venofer) inj 100 mg 100 mg, Intravenous, ONCE, 1 dose, On Mon05/30/23 at 0645 Given 05/30/2023 6:14 AM EDT 100 mg sodium citrate 4% (Anticoagulant Sodium Citrate) inj 2.5 mL 2.5 mL, Dialysis catheter, ONCE, On Mon05/30/23 at 0645, For 1 dose, ARTERIAL For use only to lock dialysis catheter after dialysis Given 05/30/2023 9:55 AM EDT 2.5 mL sodium citrate 4% (Anticoagulant Sodium Citrate) inj 2.5 mL 2.5 mL, Dialysis catheter, ONCE, On Mon05/30/23 at 0645, For 1 dose, VENOUS For use only to lock dialysis catheter after dialysis Given 05/30/2023 9:55 AM EDT 2.5 mL documented in this encounter Advance [...] Advance Directives occurred with: Patient Care Teams Oncologist Relationship Specialty Start Date End Date Tomer Garner MD [address] [facility] [place][note 2] [facility]03 PCP - General 09/19/02 documented as of this encounter
--- OUTSIDE RECORDS SUMMARY | 2024-03-17 14:26 | External Medical Summary ---
Author Name Unknown Address Unknown Organization K01:[facility] - [address] [place] [address] Laboratory Report Ordering Provider Test Date Status LISBETHMARI 11/14/2023 15:48:32 Final Observation Date Value Abnormality Reference (Units ) Status Hemoglobin 11/14/2023 15:48:32 8.7 Below low normal 14 .0-16.8 (g/dL) Final Performing Location [facility] - [address] [place] [address]
--- OUTSIDE RECORDS SUMMARY | 2024-03-17 14:26 | External Medical Summary ---
Author Name Unknown Address Unknown Organization K01[facility] [place] [facility] [address] [place] [address] Laboratory Report Ordering Provider Test Date Status MAGI BOBDEZ 11/14/2023 15:48:32 Final Observation Date Value Abnormality Reference (Units ) Status Creatinine 11/14/2023 15:48:32 21.7 Above high normal 0.6-1.2 (mg/dL) Final Glomerular filtration rate/1.73 sq M.predicted [Volume Rate/Area] in Serum, Plasma or Blood by Creatinine-based formula (CKD-EPI) 11/14/2023 15:48:32 2 Below low normal >=60 (mL/min) Final eGFR is calculated based on the CKD-EPI 2021 equation
eGFR is calculated based on the CKD-EPI 2021 equation Performing Location [facility] [place] [facility] [address] [place] [address]
--- OUTSIDE RECORDS SUMMARY | 2024-03-17 14:27 | External Medical Summary | Summary of Care ---
Author Name Unknown Organization [facility] Address [address] [facility] [place] [address] Phone [phone] Care Team Providers Care Electroplating Laborer Name Role Phone Tomer Garner MD Primary Care Provider Encounter Details Date Type Department Care Team (Late st Contact Info) Description 11/06/2023 Orders Only Home Dialysis [address] [place] [address] Sophia Hernandez RN ESRD on peritoneal dialysis (HCC)* Allergies No known active allergiesdocumented as of this encounter (statuses as of 11/08/2023) Medications Medication Sig Dispensed Refills Start Date [...] as of this encounter (statuses as of 11/08/2023) Active Problems Problem Noted Date Diagnosed Date [...] as of this encounter (statuses as of 11/08/2023) Resolved Problems Problem Noted Date Diagnosed Date [...] as of this encounter (statuses as of 11/08/2023) Immunizations Name Administration Dates Next Due COVID-19 mRNA, LNP-s, No Pre serve, 2-Dose Series (Moderna) 11/23/2020,10/18/2020 DTP Vaccine 1981,1981,1981 HEP B - Hepatitis B (Dialysis/Immumocomp Pt) 05/02/2023,04/04/2023 MMR - Measles/Mumps/Rubella Vaccine 05/11/1982 OPV - Polio Virus Vaccine (Oral) 1981,04/11 Pneumococcal Conjugate Vacci ne, 20-valent ([id number]) 11/17/2022 Seasonal Influenza, PF, 6 M & [...] Team (Late st Contact Info) Description 11/10/2023 8:00 AM EST Treatment Home Dialysis [address], [place], [place] [phone] Nurse, [employer], [place] [id number] 12/04/2023 1:00 PM EDT Office Visit Home Dialysis [address] [place] [address] [facility] [place] [address] [place] [address] 12/11/2023 8:00 AM EDT Treatment Home Dialysis [address] [place] [address] Nurse, [employer] [facility] [address] [place] [address] 12/11/2023 1:00 PM EDT Nurse Only Home Dialysis [address], [place] [address] Nurse, Lance [address] [place] [address] 12/26/2023 1:00 PM EDT Office Visit Home Dialysis [address], [place] [address] [facility] [place] [place]itoneal Dialysis [address] [place] [address] [facility] [place] [address] 01/10/2024 8:00 AM EDT Treatment Home Dialysis [address], [place], [place] [address] Nurse, [place] [address] 01/10/2024 1:00 PM EDT Nurse Only Home Dialysis [address], [place] [address] Nurse, [address] [employer] [address] [place] [address] 02/08/2024 1:00 PM EDT Office Visit Home Dialysis [address], [place] [address] [facility] [place] Peritoneal Dialysis [address] [place] [address] 02/10/2024 8:00 AM EDT Treatment Home Dialysis [address] [place] [address] Nurse, [address] [employer] [address] [place] [address] 02/12/2024 1:00 PM EDT Nurse Only Home Dialysis [address], [place] [phone] Nurse, [address] [employer] [address] [place], [place] [address] 03/05/2024 1:00 PM EDT Office Visit Home Dialysis [address] [place] [address] [facility] [place] Peritoneal Dialysis [address] [place] [facility] [place] [address] 03/11/2024 8:00 AM EDT Treatment Home Dialysis [address] [place], [place] [address] Nurse, [address] [employer] [address] [place] [address] 03/11/2024 1:00 PM EDT Nurse Only Home Dialysis [address] [place] [address] Nurse, [address] [employer] [address] [place] [address] 03/19/2024 1:00 PM EDT Office Visit Home Dialysis [address] [place], [place] [address] [facility], Peritoneal Dialysis [address] [place] [address] 04/11/2024 8:00 AM EDT Treatment Home Dialysis [address] [place], [place] [address] Nurse, Lance [employer] [address], [place] [address] 04/11/2024 1:00 PM EDT Nurse Only Home Dialysis [address], [place] [phone] Nurse, [address] [facility] [address], [place] [address] 04/29/2024 1:00 PM EDT Office Visit Home Dialysis [address], [place] [address] [facility] Peritoneal Dialysis [address] [place] [address] 05/12/2024 8:00 AM EDT Treatment Home Dialysis [address], [place] [phone] Nurse, Lance [employer] [facility] [address], [place] [address] 05/14/2024 1:00 PM EDT Nurse Only Home Dialysis [address] [place], [place] [address] Nurse, Lance [employer] [address] [place] [address] 06/07/2024 1:00 PM EDT Office Visit Home Dialysis [address], [place] [address] [facility] Peritoneal Dialysis [address] [place] [address] 06/11/2024 8:00 AM EDT Treatment Home Dialysis [address], [place] [address] Nurse, Lance Lopez [facility] [address], [place] [address] 06/11/2024 1:00 PM EDT Nurse Only Home Dialysis [address], [place] [phone] Nurse, Lance Lopez [facility] [address], [place] [address] 06/25/2024 1:00 PM EDT Office Visit Home Dialysis [address], [place] [address] [facility] [place] Peritoneal Dialysis [address] [place] [address] 07/12/2024 8:00 AM EDT Treatment Home Dialysis [address], [place] [phone] Nurse, Lance [address] [facility] [address], [place] [address] 07/12/2024 1:00 PM EDT Nurse Only Home Dialysis [address], [place] [address] Nurse, Lance [address] [facility] [address], [place] [address] 07/22/2024 1:00 PM EST Office Visit Home Dialysis [address], [place] [address] [facility] Per[place] Dialysis [address] [place] [address] 08/11/2024 8:00 AM EST Treatment Home Dialysis [address], [place] [phone] Nurse, Lance Lopez [facility] [address], [place] [address] 08/12/2024 1:00 PM EST Nurse Only Home Dialysis [address] [place] [address] Nurse, Lance [address] [facility] [address] [place] [address] 08/20/2024 1:00 PM EST Office Visit Home Dialysis [address] [place] [address] [facility], Peritoneal Dialysis [address] [place] [address] Scheduled Orders Name Type Priority Associated Diagnoses Orde r Schedule RENAL FUNCTION PANEL Lab Routine ESRD on peritoneal dialysis (HCC) Expected: 11/07/2023, Expires: 12/05/2023 Health Maintenance Due Date Last Done Comments [...] Advance Directives occurred with: Patient Care Teams Electroplating Laborer Relationship Specialty Start Date End Date Tomer Garner MD [address] [place] [address] PCP - General 09/19/02 documented as of this encounter
--- OUTSIDE RECORDS SUMMARY | 2024-03-17 14:27 | External Medical Summary | Summary of Care ---
Author Name Unknown Organization [facility] Address [address] [place] [address] Phone [phone] Care Team Providers Care Senior Property Manager Name Role Phone Tomer Garner MD Primary Care Provider [phone] Reason for Visit * Reason Onset Date Comments Potassium Problem 11/08/2023 Low potassium Encounter Details Date Type Department Care Team ([facility] st Contact Info) Description 11/08/2023 Telephone Home Dialysis [address] [place] [address] [place] [address] Cathy Wang, RDN [address] [place] [address] Potassium Problem (Low potassium) Allergies [...] (Oral) 1981,04/11 Pneumococcal Conjugate Vacci ne, 20-valent ([id number]) 11/17/2022 Seasonal Influenza, PF, 6 M & [...] Telephone Encounter - Cathy Wang RDN - 11/08/2023 2:39 PM EST Spoke with Chandan to make him aware of high low potassium. Latest Reference Range & Units 10/31/23 06:39 11/07/23 13:57 Potassium 3.5 - 5.1 mmol/L 3.5 3.4 (L) (L): Data is abnormally low Reviewed high potassium selections (that are also low in phosphorus), and encouraged him to eat 1-2servings daily. Will send a list of high potassium food to him via 800APP. Labs to be redrawn next week. He possesses contact information for this unit for future questions. Cathy Wang RDN, [facility], N Renal Dietitian [facility] [phone] documented in this encounter Plan of Treatment Upcoming Encounters Date Type Department Care Team (Late st Contact Info) Description 11/10/2023 8:00 AM EST Treatment Home Dialysis [address] [phone] Nurse, [place] [address] [id number] 12/04/2023 1:00 PM EDT Office Visit Home Dialysis [facility] [place] [address] Mdc, Peritoneal Dialysis [address] [place] [id number] 12/11/2023 8:00 AM EDT Treatment Home Dialysis Hamzah [address] [phone] Nurse, [address] [place], [place] [address] 12/11/2023 1:00 PM EDT Nurse Only Home Dialysis Ham[address] [place], [place] [address] Nurse, [address] [place] [address] [place], [place] [address] 12/26/2023 1:00 PM EDT Office Visit Home Dialysis Hamzah [address] [place], [place] [address] [facility], Peritoneal Dialysis [address] [place] [address] 01/10/2024 8:00 AM EDT Treatment Home Dialysis Hamzah [address] [place], [place] [phone] Nurse, Lance Giveter [place] [address] [place], [place] 01/10/2024 1:00 PM EDT Nurse Only Home Dialysis Ham[address] [place], [place] [phone] Nurse, Lance G[place] [address] [place], [place] [address] 02/08/2024 1:00 PM EDT Office Visit Home Dialysis Hamzah [address] [place], [place] [phone] [facility], Peritoneal Dialysis [address] [place] [facility] [place] [address] 02/10/2024 8:00 AM EDT Treatment Home Dialysis Hamzah [address] [place], [place] [phone] Nurse, [address] [place], [place] [address] 02/12/2024 1:00 PM EDT Nurse Only Home Dialysis Ham[address]ah [address] [place], [place] [phone] Nurse, [address] [employer] [address] [place] [address] 03/05/2024 1:00 PM EDT Office Visit Home Dialysis Hamzah [address] [place], [place] [address] [facility], Peritoneal Dialysis [address] [place] [address] 03/11/2024 8:00 AM EDT Treatment Home Dialysis Hamzah [address] [place], [place] [address] Nurse, [address] [employer] [address] [place] [address] 03/11/2024 1:00 PM EDT Nurse Only Home Dialysis Hamzah [address] [place], [place] [address] Nurse, [address] [employer] [address] [place], [place] [address] 03/19/2024 1:00 PM EDT Office Visit Home Dialysis Hamzah [address] [place] [address] [facility], Peritoneal Dialysis [address] [place] [address] 04/11/2024 8:00 AM EDT Treatment Home Dialysis Hamzah Lucas [address] [place], [place] [address] Nurse, [address] [employer] [address] [place] [address] 04/11/2024 1:00 PM EDT Nurse Only Home Dialysis Hamzah [address] [place], [place] [address] Nurse, [address] [employer] [address] [place] [address] 04/29/2024 1:00 PM EDT Office Visit Home Dialysis Lance Dr, [place], [place] [address] [facility], Peritoneal Dialysis [address] [place] [address] 05/12/2024 8:00 AM EDT Treatment Home Dialysis Hamzah [address] Dr [address] [place], [place] [address] Nurse, [address] [employer] [address] [place], [place] [address] 05/14/2024 1:00 PM EDT Nurse Only Home Dialysis Hamzah Lucas Dr [address] [place], [place] [address] Nurse, [address] [place] [address] [place], [place] [address] 06/07/2024 1:00 PM EDT Office Visit Home Dialysis Hamzah Lucas Dr [address] [place], [place] [address] [facility], Peritoneal Dialysis [address] [place] [address] 06/11/2024 8:00 AM EDT Treatment Home Dialysis Hamzah Lucas Dr [address] [place], [place] [address] Nurse, Lance G[address] [employer] [address] [place], [place] [address] 06/11/2024 1:00 PM EDT Nurse Only Home Dialysis Hamzah [address] [place], [place] [address] Nurse, [address] [employer] [address] [place] [address] 06/25/2024 1:00 PM EDT Office Visit Home Dialysis Hazmah [address] Dr [address] [place], [place] [address] [facility], Peritoneal Dialysis [address] [place] [address] 07/12/2024 8:00 AM EDT Treatment Home Dialysis Hamzah Lucas Dr [place], [place] [phone] Nurse, Lance Lopez [employer] [address] [place], [place] [address] 07/12/2024 1:00 PM EDT Nurse Only Home Dialysis Hamzah [address] Dr [address] [place], [place] [address] Nurse, [address] [place] [address] [place], [place] [address] 07/22/2024 1:00 PM EST Office Visit Home Dialysis Hamzah [address] Dr [address] [place], [place] [phone] [facility], Peritoneal Dialysis [address] [place] [address] 08/11/2024 8:00 AM EST Treatment Home Dialysis Hamzah [address] [place], [place] [address] Nurse, [address] [place] [address] [place], [place] [address] 08/12/2024 1:00 PM EST Nurse Only Home Dialysis Hamzah Lucas Dr [place], [place] [address] Nurse, [address] [employer] [address] [place], [place] [address] 08/20/2024 1:00 PM EST Office Visit Home Dialysis Hamzah Lucas Dr [place], [place] [address] [facility], Peritoneal Dialysis [address] [place] [address] Health Maintenance Due Date Last Done Comments [...] Directives occurred with: Patient Care Teams Senior Property Manager Relationship Specialty Start Date End Date Tomer Garner MD [address] [place] [address] PCP - General 09/19/02 documented as of this encounter
--- OUTSIDE RECORDS SUMMARY | 2024-03-17 14:27 | External Medical Summary | Summary of Care ---
Author Name Unknown Organization [facility] Address [address] [facility] [place] [address] Phone [phone] Care Team Providers Care Biologics Specialist Name Role Phone Tomer Garner MD Primary Care Provider Reason for Visit * Reason Comments Advice Encounter Details Date Type Department Care Team (Late st Contact Info) Description 11/03/2023 Chief Marketing Officer Home Dialysis Nathaniel Lucas [place] [address] [place] [address] Nancy Tolbert, PRIMARY THERAPIST Allergies No known active allergiesdocumented as of [...] (Oral) 1981,04/11 Pneumococcal Conjugate Vacci ne, 20-valent ([id number]) 11/17/2022 Seasonal Influenza, PF, 6 M & [...] Progress Notes * Nancy Tolbert LSW - 11/08/2023 9:03 AM EST SOCIAL [facility] CLINIC NOTE Gender: male Age: [age] year old Mental Health Changes: None reported. Comments: Patient presented and responded appropriately throughout clinic appointment. Patient is consistently pleasant and easily engages with ad copy writer and staff. Patient denies symptoms of depression/anxiety. No issues or concerns noted. Accounting System Expert will continue to follow. Activities of Daily Living Changes: None reported. Comments: Patient continues to reside independently at home. Support System Changes: None reported. Comments: Patient continues to have an intact support system. Accounting System Expert will continue to follow and will remain available to address psychosocial issues as needed in the clinic setting. KADEN Delaney Outpatient Phlebotomist documented in this encounter Plan of Treatment Upcoming Encounters Date Type Department Care Team (Late st Contact Info) Description 11/10/2023 8:00 AM EST Treatment Home Dialysis Clau [address] [id number] Nurse, [place] [address] [id number] 12/04/2023 1:00 PM EDT Office Visit Home Dialysis Clau [address] [phone] Mdc, Peritoneal Dialysis [address] [facility] [place] [address] 12/11/2023 8:00 AM EDT Treatment Home Dialysis Clau [phone] [address], [place] [id number] 12/11/2023 1:00 PM EDT Nurse Only Home Dialysis Clau [address] [place] [address] Nurse, [address] [employer] [address] [place] [address] 12/26/2023 1:00 PM EDT Office Visit Home Dialysis Clau Lucas Dr [address] [place], [place] [address] [facility], Peritoneal Dialysis [address] [place] [address] 01/10/2024 8:00 AM EDT Treatment Home Dialysis Clau [address] Dr [address] [place] [address] Nurse, [address] [place] [address] 01/10/2024 1:00 PM EDT Nurse Only Home Dialysis Clau [address] [place], [place] [phone] Nurse, [address] [employer] [address] [place] [address] 02/08/2024 1:00 PM EDT Office Visit Home Dialysis Clau Lucas [address] [place] [address] [facility], Peritoneal Dialysis [address] [place] [facility] [address] 02/10/2024 8:00 AM EDT Treatment Home Dialysis Clau Lucas [address] [place], [place] [address] Nurse, [address] [employer] [address] [place] [address] 02/12/2024 1:00 PM EDT Nurse Only Home Dialysis Clau [address] [place] [address] Nurse, [address] [employer] [address] [place] [address] 03/05/2024 1:00 PM EDT Office Visit Home Dialysis Clau [address] [place] [address] Mdc, Peritoneal Dialysis [address] [place] [address] 03/11/2024 8:00 AM EDT Treatment Home Dialysis Clau [address] [place], [place] [address] Nurse, [address] [place] [address] [place], [place] [address] 03/11/2024 1:00 PM EDT Nurse Only Home Dialysis Clau [address] [place], [place] [phone] Nurse, Lance [employer] [place] [address] [place], [place] [address] 03/19/2024 1:00 PM EDT Office Visit Home Dialysis Clau Lucas [address] [place], [place] [address] [facility], Peritoneal Dialysis [address] [place] [facility] [place] [address] 04/11/2024 8:00 AM EDT Treatment Home Dialysis Clau Lucas Dr [address] [place], [place] [phone] Nurse, Lance [employer] [place] [address] [place] [address] 04/11/2024 1:00 PM EDT Nurse Only Home Dialysis Clau [address] [place], [place] [address] Nurse, [address] [place] [address] [place] [address] 04/29/2024 1:00 PM EDT Office Visit Home Dialysis Clau [address] [place], [place] [address] [facility], Peritoneal Dialysis [address] [place] [facility] [place] [address] 05/12/2024 8:00 AM EDT Treatment Home Dialysis Clau [address] [place] [address] Nurse, [address] [place] [address] [place], [place] [address] 05/14/2024 1:00 PM EDT Nurse Only Home Dialysis Clau [address] [place], [place] [phone] Nurse, [address] [employer] [address] [place], [place] [address] 06/07/2024 1:00 PM EDT Office Visit Home Dialysis Clau [address] Dr [address] [place], [place] [phone] [facility], Peritoneal Dialysis [address] [place] [address] 06/11/2024 8:00 AM EDT Treatment Home Dialysis Clau Lucas Dr [address] [place], [place] [phone] Nurse, [address] [place] [address] [place], [place] [address] 06/11/2024 1:00 PM EDT Nurse Only Home Dialysis Clau [address] [place] [address] Nurse, Lance Lopez [place] [address] [place], [place] [address] 06/25/2024 1:00 PM EDT Office Visit Home Dialysis Clau [address] [place], [place] [address] [facility], Peritoneal Dialysis [address] [place] [address] 07/12/2024 8:00 AM EDT Treatment Home Dialysis Clau [address] [place], [place] [address] Nurse, [address] [place] [address] [place], [place] [address] 07/12/2024 1:00 PM EDT Nurse Only Home Dialysis Clau [address] [place], [place] [phone] Nurse, [employer] [address] [place], [place] [id number] 07/22/2024 1:00 PM EST Office Visit Home Dialysis Clau [address] [place], [place] [address] [facility], Peritoneal Dialysis [address] [facility], [place] [id number] 08/11/2024 8:00 AM EST Treatment Home Dialysis Clau [address] [place], [place] [phone] Nurse, [address] [employer] [address] [place], [place] [address] 08/12/2024 1:00 PM EST Nurse Only Home Dialysis Clau [address] [place], [place] [address] Nurse, [employer] [place] [address], [place] [id number] 08/20/2024 1:00 PM EST Office Visit Home Dialysis Clau [address] [place], [place] [address] [facility], Peritoneal Dialysis [address] [place] [facility] [place] [address] Health Maintenance Due Date Last Done Comments [...] Advance Directives occurred with: Patient Care Teams Biologics Specialist Relationship Specialty Start Date End Date Tomer Garner MD [address] [place] [address] PCP - General 09/19/02 documented as of this encounter
--- OUTSIDE RECORDS SUMMARY | 2024-03-17 14:27 | External Medical Summary | Summary of Care ---
Author Name Unknown Organization [facility] Address [address] [place] [address] Phone [phone] Care Team Providers Care Contact Acid Plant Operator Name Role Phone Tomer Garner MD Primary Care Provider Encounter Details Date Type Department Care Team (Late st Contact Info) Description 11/03/2023 1:00 PM EST Office Visit Home Dialysis [address] [place] [address] Mdc, Peritoneal Dialysis [address] [place] [address] 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 chronic kidney disease, not on chronic dialysis (HCC)*; ESRD on peritoneal dialysis (HCC) Allergies No known active allergiesdocumented as of this encounter (statuses as of 11/07/2023) Medications Medication Sig Dispensed Refills Start Date [...] as of this encounter (statuses as of 11/07/2023) Active Problems Problem Noted Date Diagnosed Date [...] as of this encounter (statuses as of 11/07/2023) Resolved Problems Problem Noted Date Diagnosed Date [...] as of this encounter (statuses as of 11/07/2023) Immunizations Name Administration Dates Next Due COVID-19 mRNA, LNP-s, No Pre serve, 2-Dose Series (Moderna) 11/23/2020,10/18/2020 DTP Vaccine 1981,1981,1981 HEP B - Hepatitis B (Dialysis/Immumocomp Pt) 05/02/2023,04/04/2023 MMR - Measles/Mumps/Rubella Vaccine 05/11/1982 OPV - Polio Virus Vaccine (Oral) 1981,04/11 Pneumococcal Conjugate Vacci ne, 20-valent ([id number]) 11/17/2022 Pneumococcal Polysaccharide PPV23 (Pneumovax) 02/03/2004 Seasonal [...] Sign Reading Time Taken Comments Blood Pressure 108/62 11/03/2023 2:35 PM EST Pulse 94 11/03/2023 2:35 PM EST Temperature 36.4 C (97.6 F) 11/03/2023 2:35 PM ES T Respiratory Rate 18 11/03/2023 1:03 PM EST Oxygen Saturation 97% 11/03/2023 1:03 PM EST Inhaled Oxygen Concentration - - Weight 125.4 kg (276 lb 6.4 oz) 11/03/2023 1:03 PM EST Height - - Body Mass Index 39.66 10/28/2023 6:10 PM EST documented in this [...] Progress Notes * Sophia Hernandez, RN - 11/06/2023 9:38 AM EST Peritoneal dialysis monthly visit Labs and meds [...] recurrent malignancy? none reported Adjusted Procrit: no not on Epogen at this time hgb 10.0 Pain w/exchanges yes, discomfort from increase to 3000 ml fill, pt fill volume decreased to 2500 for all fills Patient brought records from home yes, reviewed in share source Home record scanned into nursing notes? Yes Blood pressure's at home 130/81 Verified Transfer Set connection and reviewed with patient: Yes Exit site clean and dry with no pain, redness, or drainage Signs and symptoms of exit [...] do manual exchange checking for cloudy fluid. Capd volume 2500 ml, # Exchanges 1, Dianeal used 1.5%, UF 500-700 ml Cycler settings: 4 cycles,2500 fill volume, 2500(last fill) day time fill volume, 4 hr treatment time, 4 dwell time. Dianeal used 1.5% average nightly UF 2302-4351 ml in 24 hr period Last [facility]M 1.05 Kt/V Oct 2023, repeat in two weeks, dialysis prescription changed Transplant status active Reviewed process for ordering monthly dialysis supplies using the calendar provided: yes Reviewed contact phone numbers for the Peritoneal Dialysis supply company as well as the Dialysis clinic and the on-call nurse via the hospital screen print operator: yes Questions Pt arrived for PD monthly visit and was found to be hypotensive 82/50, pulse 110. PT seenand evaluated by Dr. Lopez in clinic. PT blood pressure medications have been discontinued and pt provided 32 ounces of fluid in clinic PO as per Dr. Lopez pt high UF from PD treatments are contributing to dehydration. PT instructed to use all 1.5% Dianeal solution and increase fluid intake to 2 L daily. PT verbalized understanding and vitals signs checked before departure BP 108/64 pulse 94. PT reporting no dizziness, SOB, nausea or lightheadedness. PT educated to report at home low blood pressures and symptomatic episodes if they should occur. PT verbalized understanding * Cathy Wang RDN - 11/03/2023 4:20 PM EST NUTRITION PERITONEAL DIALYSIS MONTHLY PROGRESS NOTE October 2023 Labs Hospital admission 10/28/23 - 10/31/23 : Hypotension Chandan to measure his daily fluid intake, and is to drink 64 ounces per day. Explained this is to get baseline of intake, so that direction can be given from provider on any future adjustments/increases. Patient reports appetite is good. Lab Results Component Value Date ALBUMIN - [facility] 4.1 10/31/2023 ALBUMIN - [facility] 4.0 10/30/2023 ALBUMIN - [facility] 4.0 10/29/2023 ALBUMIN - [facility] 4.8 10/28/2023 ALBUMIN - [facility] 5.1 (H) 10/27/2023 ALBUMIN - [facility] 4.6 10/23/2023 ALBUMIN - [facility] 4.7 10/18/2023 ALBUMIN - [facility] 4.6 10/17/2023 ALBUMIN - [facility] 4.6 09/20/2023 ALBUMIN - [facility] 4.2 08/22/2023 Albumin level is acceptable. Protein Goal/Timeline: not applicable goal achieved. Lab Results Component Value Date CO2 - [facility] 17 (L) 10/31/2023 CO2 - [facility] 19 (L) 10/30/2023 CO2 - [facility] 18 (L) 10/29/2023 CO2 - [facility] 18 (L) 10/29/2023 CO2 - [facility] 17 (L) 10/28/2023 CO2 - [facility] 20 (L) 10/27/2023 CO2 - [facility] 19 (L) 10/23/2023 CO2 - [facility] 18 (L) 10/18/2023 CO2 - [facility] 18 (L) 10/17/2023 CO2 - [facility] 21 (L) 09/20/2023 CO2 - [facility] 25 08/22/2023 CO2 level is: out of target range 22 mmol/L - 26 mmol/L: discussed with MD. Continue to make adjustments to PD prescription to improve clearance. CO2 Goal/Timeline: will trend towards target range by next lab draw. Lab Results Component Value Date POTASSIUM - [facility] 3.5 10/31/2023 POTASSIUM - [facility] 3.9 10/30/2023 POTASSIUM - [facility] 3.8 10/29/2023 POTASSIUM - [facility] 3.7 10/29/2023 POTASSIUM - [facility] 3.7 10/28/2023 POTASSIUM - [facility] 3.4 (L) 10/27/2023 POTASSIUM - [facility] 3.7 10/23/2023 POTASSIUM - [facility] 4.3 10/18/2023 POTASSIUM - [facility] 4.0 10/17/2023 POTASSIUM - [facility] 5.2 09/20/2023 POTASSIUM - [facility] 4.4 08/22/2023 Potassium level is acceptable. Potassium Goal/Timeline: not applicable goal achieved. Estimated Dry Weight: 124 kg; stable within acceptable parameters over the past month. Mineral and Bone Disorder Management Lab Results Component Value Date ADJUSTED CALCIUM - [facility] 8.8 10/17/2023 ADJUSTED CALCIUM - [facility] 8.2 09/20/2023 ADJUSTED CALCIUM - [facility] 8.1 08/22/2023 Lab Results Component Value Date PHOSPHORUS - [facility] 13.9 (H) 10/29/2023 PHOSPHORUS - [facility] 10.3 (H) 10/27/2023 PHOSPHORUS - [facility] 12.1 (H) 10/23/2023 PHOSPHORUS - [facility] 18.3 (H) 10/18/2023 PHOSPHORUS - [facility] 17.7 (H) 10/17/2023 PHOSPHORUS - [facility] 8.4 (H) 09/20/2023 PHOSPHORUS - [facility] 8.4 (H) 09/20/2023 PHOSPHORUS - [facility] 7.8 (H) 08/22/2023 Lab Results Component Value Date PTH - [facility] 983 (H) 10/17/2023 PTH - [facility] 94 (L) 09/20/2023 Lab Results Component Value Date 25-HYDROXY VITAMIN D - [facility] 43 10/17/2023 25-HYDROXY VITAMIN D - [facility] 52 09/20/2023 Mineral and bone disorder labs: Adjusted calcium level is: acceptable (8.4 mg/dL- 10.2 mg/dL) Phosphorus level is: above target range Intact PTH level is: above target range 25-OH Vitamin D level is: acceptable (30 ng/mL - 50 ng/mL) Mineral and Bone Disorder Plan: PD prescription being adjusted. Encouraged him to take calcium acetate 4/meal if only 2 meals per day, otherwise 3/meal (3 meals per day), and 2/snack. Restart Sensipar at 30 mg daily per provider. Mineral and Bone Disorder Management Goal/Timeline: Phosphorus and PTH to trend toward target rangeby next lab draw. Plan: Will monitor nutritional status monthly. Will adjust nutrition plan as needed. Cathy Wang RDN, CSOWM, LDN Renal Dietitian [facility] [phone] 11/03/2023 4:20 PM * Karrie Russo TECH - 11/03/2023 1:51 PM EST Patient was instructed to not get up [...] Care Team (Late st Contact Info) Description 11/07/2023 12:00 PM EST Nurse Only Home Dialysis [address] [place] [id number] Nurse, [place] [address] [id number] 11/10/2023 8:00 AM EST Treatment Home [place]ialysis [address] [address] Nurse, [place] [address] [id number] 11/10/2023 1:00 PM EST Nurse Only Home Dialysis [address] [place] [id number] Nurse, Lance [place] [address] [id number] 12/04/2023 1:00 PM EDT Office Visit Home Dialysis [address] [id number] Mdc, Peritoneal Dialysis [address] [place] [id number] 12/11/2023 8:00 AM EDT Treatment Home Dialysis [address] [place] [id number] Nurse, Lance [address] [place] [address] 12/11/2023 1:00 PM EDT Nurse Only Home Dialysis [address] [place], [place] [phone] Nurse, Lance [address] [place] [address] 12/26/2023 1:00 PM EDT Office Visit Home Dialysis Clau [address] [place] [address] [facility] [address] [place] [address] 01/10/2024 8:00 AM EDT Treatment Home Dialysis Clau [address] [place], [place] [phone] Nurse, [employer] [address] [address], [place] 01/10/2024 1:00 PM EDT Nurse Only Home Dialysis [address] [place], [place] [phone] Nurse, Lance [employer] [address] [place] [address] 02/08/2024 1:00 PM EDT Office Visit Home Dialysis Cl[address] [place], [place] [address] [facility] [place] [address] [facility] [place] [place] [address] 02/10/2024 8:00 AM EDT Treatment Home Dialysis Clau [address] [place], [place] [phone] Nurse, Lance [employer] [address] [place], [place] [address] 02/12/2024 1:00 PM EDT Nurse Only Home Dialysis Cl[address] [place], [place] [address] Nurse, [address] [employer] [address] [place] [address] 03/05/2024 1:00 PM EDT Office Visit Home Dialysis Clau [address] [place], [place] [address] [facility] [place] [address] [place] [address] 03/11/2024 8:00 AM EDT Treatment Home Dialysis Clau [address] [place], [place] [phone] Nurse, Lance [address] [employer] [address] [place] [address] 03/11/2024 1:00 PM EDT Nurse Only Home Dialysis Cl[address] [place], [place] [phone] Nurse, Lance [address] [employer] [address] [place] [address] 03/19/2024 1:00 PM EDT Office Visit Home Dialysis Clau [address] [place] [address] [facility] [place] [address] [place] [place] [address] 04/11/2024 8:00 AM EDT Treatment Home Dialysis Clau [address] [place], [place] [phone] Nurse, Lance [address] [employer] [address] [place] [address] 04/11/2024 1:00 PM EDT Nurse Only Home Dialysis [address] [place], [place] [phone] Nurse, Lance [address] [employer] [address] [place] [address] 04/29/2024 1:00 PM EDT Office Visit Home Dialysis Clau [address] [place], [place] [address] Mdc, Peritoneal Dialysis [address] [place] [address] 05/12/2024 8:00 AM EDT Treatment Home Dialysis Clau [address] [place], [place] [address] Nurse, [address] [employer] [address] [place], [place] [address] 05/14/2024 1:00 PM EDT Nurse Only Home Dialysis [address] [place], [place] [phone] Nurse, Lance [employer] [address] [place], [place] [address] 06/07/2024 1:00 PM EDT Office Visit Home Dialysis [address] [place], [place] [address] [facility] [place] [address] [place] [address] 06/11/2024 8:00 AM EDT Treatment Home Dialysis [address] [place], [place] [phone] Nurse, Lance [employer] [place] [address] 06/11/2024 1:00 PM EDT Nurse Only Home Dialysis [address] [place], [place] [address] Nurse, [address] [employer] [address] [place] [address] 06/25/2024 1:00 PM EDT Office Visit Home Dialysis [address] [place], [place] [address] [facility] [place] [address] [place] [address] 07/12/2024 8:00 AM EDT Treatment Home Dialysis [address] [place], [place] [phone] Nurse, Lance [place] [address] [place], [place] [address] 07/12/2024 1:00 PM EDT Nurse Only Home Dialysis [address] [place], [place] [address] Nurse, [address] [place] [address] [place], [place] [address] 07/22/2024 1:00 PM EST Office Visit Home Dialysis Clau [address] [place], [place] [phone] [facility] [place] [address] [facility] [place] [phone] 08/11/2024 8:00 AM EST Treatment Home Dialysis Clau [address] [place], [place] [address] Nurse, [address] [place] [address] [place], [place] [address] 08/12/2024 1:00 PM EST Nurse Only Home Dialysis [address] [place], [place] [address] Nurse, [address] [place] [address] [place], [place] [address] 08/20/2024 1:00 PM EST Office Visit Home Dialysis [address]au [address] [place], [place] [phone] [facility] [place] [address] [place], [place] [phone] Health Maintenance Due Date Last Done Comments COVID-19 Vaccine (3 - Moderna risk series) 12/21/2020 11/23/2020, 10/18/2020 Hepatitis B (3 of 4 - Risk Dialysis Recombivax 3-dose series) 10/05/2023 05/02/2023, 04/04/2023 Depression Screening 11/06/2024 11/06/2023 Lipid Panel 05/18/2026 05/18/2021, 12/0 09/2009, 11/11/2004, Additional history exists Diabetes Screening 10/31/2026 10/31/2023, 0 10/30/2023, 10/29/2023, Additional history exists DTaP,Tdap,and Td Vaccines (6 [...] Procedure Name Priority Date/Time Associated Diagnosis Comments HGB STAT 11/03/2023 1:24 PM EST 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 chronic kidney disease, not on chronic dialysis (HCC) ESRD on peritoneal dialysis (HCC) documented in this encounter Results * (ABNORMAL) HGB (11/03/2023 1:24 PM EST) HGB 10.0(L) 14.0 - 16.8 g/dL 11/03/2023 8:30 PM EST LABORATORY GM Blood Venous blood specimen / Unknown Venipuncture / Unknown 11/03/2023 1:24 PM EST 11/03/2023 6:33 PM EST Akosua Lopez MD LAB BLOOD ORDER [facility] [address] [place] [address] documented in this encounter Visit Diagnoses Diagnosis 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 chronic kidney disease, not on chronic dialysis (HCC)- Primary ESRD on peritoneal dialysis (HCC) End stage renal disease ESRD on peritoneal dialysis (HCC)- Primary End [...] Advance Directives occurred with: Patient Care Teams Contact Acid Plant Operator Relationship Specialty Start Date End Date Tomer Garner MD [address] [facility] [address] PCP - General 09/19/02 documented as of this encounter
--- OUTSIDE RECORDS SUMMARY | 2024-03-17 14:27 | External Medical Summary ---
Author Name Unknown Address Unknown Organization [id number]:LABORATORY [facility] [place] [facility] [place] [address] [facility] [address] Laboratory Report Ordering Provider Test Date Status MARI BOB 11/07/2023 14:13:41 Final Observation Date Value Abnormality Reference (Units ) Status BUN, Body Fluid 11/07/2023 14:13:41 34 (mg/ dL) Final The reference interval(s) an d other method performance specifications may not be available for this body fluid. Comparison of this result with the concentration in the blood, serum, or plasma is recommended. The test result must be integrated into the clinical context for interpretation.

Please refer to test catalog (https://www.[employer].com/catalog/body_fluids.cfm) for additional interpretive information.

This test was developed and its performance characteristics determined by [employer]. It has not been cleared or approved by the [place] Food and Drug Administration. Performing Location LABORATORY [facility] [place] [place] [address] [facility] [address]
--- OUTSIDE RECORDS SUMMARY | 2024-03-17 14:27 | External Medical Summary ---
Author Name Unknown Address Unknown Organization K01:LABORATORY [facility] [place] - [facility] [address] Laboratory Report Ordering Provider Test Date Status MARI BOB 11/07/2023 14:13:41 Final Observation Date Value Abnormality Reference (Units ) Status Creatinine, Body Fluid 11/07/2023 14:13:41 7.5 (mg/dL) Final The reference interval(s) an d other method performance specifications may not be available for this body fluid. Comparison of this result with the concentration in the blood, serum, or plasma is recommended. The test result must be integrated into the clinical context for interpretation.

Please refer to test catalog (https://www.[employer].com/catalog/body_fluids.cfm) for additional interpretive information.

This test was developed and its performance characteristics determined by [employer]. It has not been cleared or approved by the [place] Food and Drug Administration. Performing Location LABORATORY [facility] [place] - [address] [facility] [address]
--- OUTSIDE RECORDS SUMMARY | 2024-03-17 14:27 | External Medical Summary | Summary of Care ---
Author Name Unknown Organization [facility] Address [address] [facility] [place] [address] Phone [phone] Care Team Providers Care Aircraft Armorer Name Role Phone Tomer Garner MD Primary Care Provider Encounter Details Date Type Department Care Team (Late st Contact Info) Description 11/09/2023 Telephone Home Dialysis [address] [place] [address] Sophia Hernandez RN Allergies No known active allergiesdocumented as of this encounter (statuses as of 11/09/2023) Medications Medication Sig Dispensed Refills Start Date [...] as of this encounter (statuses as of 11/09/2023) Active Problems Problem Noted Date Diagnosed Date [...] as of this encounter (statuses as of 11/09/2023) Resolved Problems Problem Noted Date Diagnosed Date [...] as of this encounter (statuses as of 11/09/2023) Immunizations Name Administration Dates Next Due COVID-19 mRNA, LNP-s, No Pre serve, 2-Dose Series (Moderna) 11/23/2020,10/18/2020 DTP Vaccine 1981,1981,1981 HEP B - Hepatitis B (Dialysis/Immumocomp Pt) 05/02/2023,04/04/2023 MMR - Measles/Mumps/Rubella Vaccine 05/11/1982 OPV - Polio Virus Vaccine (Oral) 1981,04/11 Pneumococcal Conjugate Vacci ne, 20-valent ([id number]) 11/17/2022 Seasonal Influenza, PF, 6 M & [...] Telephone Encounter - Sophia Hernandez, RN - 11/09/2023 1:17 PM EST PD nurse spoke to patient today to check on pt condition and CCPD treatment. Pt reports 1386 ml from CCPD treatment removed. PT reports no pain, fevers, or SOB. Initial drain 412 UF. Manual bag not yet infused. PT weight - minus last fill 129 kg. PT reports no pain, SOB, BLE edema or chest pain. PtBP 135/88. PT verbalized understanding to call CCPD clinic or microphone boom operator nephrology with any pain, newsymptoms or concerns. documented in this encounter Plan of Treatment Upcoming Encounters Date Type Department Care Team (Late st Contact Info) Description 11/10/2023 8:00 AM EST Treatment Home Dialysis [place] [place] [address] Nurse, [employer] [place] [address] 12/04/2023 1:00 PM EDT Office Visit Home Dialysis Hamzah Lucas [address] [place] [address] [phone] Mdc, Peritoneal Dialysis [address] [place] [address] 12/11/2023 8:00 AM EDT Treatment Home Dialysis [address] [place] [address] Nurse, [employer] [place] [address] 12/11/2023 1:00 PM EDT Nurse Only Home Dialysis Hamzah [address] [place] [address] Nurse, [employer] [address] [place] [address] 12/26/2023 1:00 PM EDT Office Visit Home Dialysis Ham[address] [place], [place] [address] Mdc, Peritoneal Dialysis [address] [place] [address] 01/10/2024 8:00 AM EDT Treatment Home Dialysis Hamzah [address] [place], [place] [address] Nurse, [address] [employer] [address] [place], [place] [address] 01/10/2024 1:00 PM EDT Nurse Only Home Dialysis Hamz[address] [place], [place] [phone] Nurse, [address] [place] [address] [place], [place] [address] 02/08/2024 1:00 PM EDT Office Visit Home Dialysis Ham[address] [place], [place] [address] [facility], Peritoneal Dialysis [address] [place] [address] 02/10/2024 8:00 AM EDT Treatment Home Dialysis Hamzah [address] [place], [place] [address] Nurse, [address] [place] [place] [address] 02/12/2024 1:00 PM EDT Nurse Only Home Dialysis Ham[address] [place], [place] [address] Nurse, [employer] [address] [place] [address] 03/05/2024 1:00 PM EDT Office Visit Home Dialysis Ham[address] [place], [place] [address] [facility], Peritoneal Dialysis [address] [place] [address] 03/11/2024 8:00 AM EDT Treatment Home Dialysis Ham[address] [place] [address] Nurse, Lance [address] [place], [place] [address] 03/11/2024 1:00 PM EDT Nurse Only Home Dialysis [address] [place], [place] [phone] Nurse, Lance Lopez [address] [place], [place] [address] 03/19/2024 1:00 PM EDT Office Visit Home Dialysis Ham[address] [place], [place] [address] [facility], Peritoneal Dialysis [address] [place] [address] 04/11/2024 8:00 AM EDT Treatment Home Dialysis Hamz[address] [place], [place] [phone] Nurse, Lance Lopez [address] [place], [place] [address] 04/11/2024 1:00 PM EDT Nurse Only Home Dialysis Ham[address] [place], [place] [address] Nurse, Lance Lopez [address] [place], [place] [address] 04/29/2024 1:00 PM EDT Office Visit Home Dialysis Ham[address] [place], [place] [address] [facility], Peritoneal Dialysis [address] [place] [address] 05/12/2024 8:00 AM EDT Treatment Home Dialysis Hamzah [address] [place], [place] [phone] Nurse, Lance Lopez [address] [place], [place] [address] 05/14/2024 1:00 PM EDT Nurse Only Home Dialysis Hamzah [address] [place], [place] [phone] Nurse, [address] [place], [place] [address] 06/07/2024 1:00 PM EDT Office Visit Home Dialysis Ham[address] [place] [address] [facility], Peritoneal Dialysis [address] [place] [address] 06/11/2024 8:00 AM EDT Treatment Home Dialysis Hamzah [address] [place], [place] [phone] Nurse, [address] [place], [place] 06/11/2024 1:00 PM EDT Nurse Only Home Dialysis Hamz[address] [place], [place] [phone] Nurse, [address] [place], [place] [address] 06/25/2024 1:00 PM EDT Office Visit Home Dialysis Hamzah [address] [place], [place] [address] [facility], Peritoneal Dialysis [address] [place] [address] 07/12/2024 8:00 AM EDT Treatment Home Dialysis Hamzah [address] [place], [place] [phone] Nurse, [address] [place], [place] [address] 07/12/2024 1:00 PM EDT Nurse Only Home Dialysis Ham[address] [place], [place] [phone] Nurse, [address] [place] [address] [place], [place] [address] 07/22/2024 1:00 PM EST Office Visit Home Dialysis Hamzah [address] [place], [place] [phone] [facility], Peritoneal Dialysis [address] [place], [place] [address] 08/11/2024 8:00 AM EST Treatment Home Dialysis Ham[address] [place], [place] [address] Nurse, [employer] [address] [place], [place] [address] 08/12/2024 1:00 PM EST Nurse Only Home Dialysis [address] [place], [place] [phone] Nurse, [employer] [address] [place], [place] [address] 08/20/2024 1:00 PM EST Office Visit Home Dialysis Ham[address] [place], [place] [address] [facility], Peritoneal Dialysis [address] [facility] [place], [place] [phone] Health Maintenance Due Date Last Done Comments [...] Advance Directives occurred with: Patient Care Teams Aircraft Armorer Relationship Specialty Start Date End Date Tomer Garner MD [address] [facility] PCP - General 09/19/02 documented as of this encounter
--- OUTSIDE RECORDS SUMMARY | 2024-03-17 14:27 | External Medical Summary | Summary of Care ---
Author Name Unknown Organization [facility] Address [address] [facility] [place] [address] Phone [phone] Care Team Providers Care Beautician Apprentice Name Role Phone Tomer Garner MD Primary [...] (Oral) 1981,04/11 Pneumococcal Conjugate Vacci ne, 20-valent ([id number]) 11/17/2022 Seasonal Influenza, PF, 6 M & [...] Sign Reading Time Taken Comments Blood Pressure 136/84 11/07/2023 1:36 PM EST Pulse 109 11/07/2023 1:36 PM EST Temperature 37.2 C (99 F) 11/07/2023 1:36 PM EST Respiratory Rate 20 11/07/2023 1:36 PM EST Oxygen Saturation 96% 11/07/2023 1:36 PM EST Inhaled Oxygen Concentration - - Weight 127 kg (279 lb 15.8 oz) 11/07/2023 1:36 P M EST Height - - Body Mass Index 40.17 10/28/2023 6:10 PM EST documented in this [...] Progress Notes * Sophia Hernandez RN - 11/07/2023 2:35 PM EST Pt arrived for kt/v PD fluid collection and renal function panel. Pt reports no pain, SOB, or lightheadedness. PT vital signs obtained and stable. PT drained 2800 from dwelling manual exchange for 300 total UF of clear yellow fluid. PT current weight when empty is 127 kg with no BLE edema. documented in this encounter Plan of Treatment Upcoming Encounters Date Type Department Care Team (Late st Contact Info) Description 11/10/2023 8:00 AM EST Treatment Home Dialysis [place] [id number] Nurse, [place] [address] 11/10/2023 1:00 PM EST Nurse Only Home Dialysis [address] [place] [address] Nurse, Curio [address] [address] [place] [address] 12/04/2023 1:00 PM EDT Office Visit Home Dialysis [facility] [place] [address] Mdc, Peritoneal Dialysis [address] [place] [address] 12/11/2023 8:00 AM EDT Treatment Home Dialysis [address] [place], [place] [address] Nurse, Lance [address] [place], [place] [address] 12/11/2023 1:00 PM EDT Nurse Only Home Dialysis [facility] [place], [place] [phone] Nurse, Lance [address] [place], [place] [address] 12/26/2023 1:00 PM EDT Office Visit Home Dialysis [facility] [place], [place] [address] [facility], Peritoneal Dialysis [address] [place] [address] 01/10/2024 8:00 AM EDT Treatment Home Dialysis [facility] [place], [place] [address] Nurse, Lance [address] [place], [place] [address] 01/10/2024 1:00 PM EDT Nurse Only Home Dialysis [facility] [place], [place] [address] Nurse, Lance [address] [place] [address] 02/08/2024 1:00 PM EDT Office Visit Home Dialysis [facility] [place], [place] [address] [facility], Peritoneal Dialysis [address] [place] [address] 02/10/2024 8:00 AM EDT Treatment Home Dialysis [facility] [place] [address] Nurse, [address] [place], [place] [address] 02/12/2024 1:00 PM EDT Nurse Only Home Dialysis [address] [place], [place] [phone] Nurse, Lance [address] [employer] [address] [place], [place] [address] 03/05/2024 1:00 PM EDT Office Visit Home Dialysis [facility] [place], [place] [phone] [facility], Peritoneal Dialysis [address] [place] [address] 03/11/2024 8:00 AM EDT Treatment Home Dialysis [facility] [address] [place], [place] [phone] Nurse, Lance [address] [place], [place] [address] 03/11/2024 1:00 PM EDT Nurse Only Home Dialysis [address] [place] [address] Nurse, Lance Lopez [address] [place], [place] [address] 03/19/2024 1:00 PM EDT Office Visit Home Dialysis [address] [place], [place] [address] [facility], Peritoneal Dialysis [address] [place] [address] 04/11/2024 8:00 AM EDT Treatment Home Dialysis [facility] [place], [place] [address] Nurse, [address] [place], [place] [address] 04/11/2024 1:00 PM EDT Nurse Only Home Dialysis [address] [place], [place] [phone] Nurse, Lance [address] [employer] [address] [place], [place] [address] 04/29/2024 1:00 PM EDT Office Visit Home Dialysis [facility] [place], [place] [address] [facility], Peritoneal Dialysis [address] [place] [address] 05/12/2024 8:00 AM EDT Treatment Home Dialysis [facility] [address] [place], [place] [phone] Nurse, Lance [address] [employer] [address] [place], [place] [address] 05/14/2024 1:00 PM EDT Nurse Only Home Dialysis [facility] [place], [place] [phone] Nurse, Lance [address] [employer] [address] [place], [place] [address] 06/07/2024 1:00 PM EDT Office Visit Home Dialysis [facility] [place], [place] [address] [facility], Peritoneal Dialysis [address] [place] [address] 06/11/2024 8:00 AM EDT Treatment Home Dialysis [facility] [address] [place], [place] [phone] Nurse, Lance [address] [place], [place] [address] 06/11/2024 1:00 PM EDT Nurse Only Home Dialysis [facility] [place], [place] [phone] Nurse, Lance [address] [employer] [address] [place], [place] [address] 06/25/2024 1:00 PM EDT Office Visit Home Dialysis [facility] [place], [place] [address] [facility], Peritoneal Dialysis [address] [place] [address] 07/12/2024 8:00 AM EDT Treatment Home Dialysis [facility] [place], [place] [address] Nurse, [address] [place], [place] [address] 07/12/2024 1:00 PM EDT Nurse Only Home Dialysis [address] [place], [place] [address] Nurse, [address] [employer] [address] [place], [place] [address] 07/22/2024 1:00 PM EST Office Visit Home Dialysis [address] [place], [place] [address] [facility], Peritoneal Dialysis [address] [facility] [place] [address] 08/11/2024 8:00 AM EST Treatment Home Dialysis [facility] [place], [place] [address] Nurse, [address] [place], [place] [address] 08/12/2024 1:00 PM EST Nurse Only Home Dialysis [address] [place], [place] [address] Nurse, [address] [employer] [address] [place], [place] [address] 08/20/2024 1:00 PM EST Office Visit Home Dialysis [facility] [address] [place] [address] [facility], Peritoneal Dialysis [address] [place] [address] Scheduled Orders Name Type Priority Associated Diagnoses Orde r Schedule RENAL FUNCTION PANEL Lab Routine ESRD on peritoneal dialysis (HCC) Expected: 11/07/2023, Expires: 12/06/2023 CREATININE, BODY FLUID Lab Routine ESRD on peritoneal dialysis (HCC) Expected: 11/07/2023, Expires: 11/07/2024 UREA NITROGEN, PERITONEAL DIALYSATE Lab Routine ESRD on peritoneal dialysis (HCC) Expected: 11/07/2023, Expires: 12/06/2023 Health Maintenance Due Date Last Done Comments [...] Advance Directives occurred with: Patient Care Teams Beautician Apprentice Relationship Specialty Start Date End Date Tomer Garner MD [address] [place] [address] PCP - General 09/19/02 documented as of this encounter
--- OUTSIDE RECORDS SUMMARY | 2024-03-17 14:27 | External Medical Summary | Summary of Care ---
Author Name Unknown Organization [facility] Address [address] [place] [address] Phone [phone] Care Team Providers Care Photocopying Equipment Mechanic Name Role Phone Tomer Garner MD Primary Care Provider Encounter Details Date Type Department Care Team (Late st Contact Info) Description 11/03/2023 1:00 PM EST Office Visit Home Dialysis [facility] [address] [place] [address] Mdc, Peritoneal Dialysis [address] [place] [address] 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 chronic [...] (Oral) 1981,04/11 Pneumococcal Conjugate Vacci ne, 20-valent ([id number]) 11/17/2022 Pneumococcal Polysaccharide PPV23 (Pneumovax) 02/03/2004 Seasonal [...] time. Dianeal used 1.5% average nightly UF 2395-5514 ml in 24 hr period Last [facility] 1.05 Kt/V Oct 2023, repeat in two weeks, dialysis prescription changed Transplant status active Reviewed process for ordering monthly dialysis supplies using the calendar provided: yes Reviewed contact phone numbers for the Peritoneal Dialysis supply company as well as the Dialysis clinic and the on-call nurse via the hospital compacting machine operator/tender: yes Questions Pt arrived for PD monthly [...] Wang RDN, CSOWM, LDN Renal Dietitian [facility] [phone] 11/03/2023 4:20 PM * Karrie Russo TECH [...] [address] [place] [address] [phone] [facility], Peritoneal Dialysis [address] [place] [address] 12/11/2023 8:00 AM EDT Treatment Home Dialysis [facility] [place] [address] Nurse, Lance Bee [address] [place] [address] 12/11/2023 1:00 PM EDT Nurse Only Home Dialysis [address] [place] [address] Nurse, Lance Bee [address] [place] [address] 12/26/2023 1:00 PM EDT Office Visit Home Dialysis [facility] [address] [place] [address] [address] [phone] [facility], Peritoneal Dialysis [address] [place] [address] 01/10/2024 8:00 AM EDT Treatment Home Dialysis [facility] [address] [place] [address] [phone] Nurse, Lance Jessica Bee [address] [place], [place] [address] 01/10/2024 1:00 PM EDT Nurse Only Home Dialysis [address] [place], [place] [address] Nurse, [address] [place] [address] 02/08/2024 1:00 PM EDT Office Visit Home Dialysis [address] [place] [address] [facility], Peritoneal Dialysis [address] [place] [address] 02/10/2024 8:00 AM EDT Treatment Home Dialysis [address] [place], [place] [phone] Nurse, [employer] [address] [place], [place] [address] 02/12/2024 1:00 PM EDT Nurse Only Home Dialysis [address] [place], [place] [phone] Nurse, Lance [employer] [address] [place] [address] 03/05/2024 1:00 PM EDT Office Visit Home Dialysis [address] [place], [place] [address] [facility], Peritoneal Dialysis [address] [facility] [place] [address] 03/11/2024 8:00 AM EDT Treatment Home Dialysis [address] [place], [place] [phone] Nurse, Lancebaltazar Lopez [address] [place], [place] [address] 03/11/2024 1:00 PM EDT Nurse Only Home Dialysis [address] [place], [place] [address] Nurse, Lance [address] [employer] [address] [place] [address] 03/19/2024 1:00 PM EDT Office Visit Home Dialysis [address] [place], [place] [address] [facility], Peritoneal Dialysis [address] [place] [address] 04/11/2024 8:00 AM EDT Treatment Home Dialysis [address] [place], [place] [phone] Nurse, Lance [address] [employer] [address] [place] [address] 04/11/2024 1:00 PM EDT Nurse Only Home Dialysis [address] [place], [place] [phone] Nurse, [employer] [address] [place] [address] 04/29/2024 1:00 PM EDT Office Visit Home Dialysis [address] [place] [address] [facility], Peritoneal Dialysis [address] [facility] [place] [address] 05/12/2024 8:00 AM EDT Treatment Home Dialysis [address] [place], [place] [address] Nurse, [address] [employer] [address] [place] [address] 05/14/2024 1:00 PM EDT Nurse Only Home Dialysis [address] [place] [address] Nurse, [address] [employer] [address] [place] [address] 06/07/2024 1:00 PM EDT Office Visit Home Dialysis [address] [place], [place] [address] [facility], Peritoneal Dialysis [address] [place] [address] 06/11/2024 8:00 AM EDT Treatment Home Dialysis [address] [place], [place] [address] Nurse, [address] [place], [place] [address] 06/11/2024 1:00 PM EDT Nurse Only Home Dialysis [address] [place], [place] [phone] Nurse, [address] [place], [place] [address] 06/25/2024 1:00 PM EDT Office Visit Home Dialysis [address] [place], [place] [address] [facility], Peritoneal Dialysis [address] [facility] [place] [address] 07/12/2024 8:00 AM EDT Treatment Home Dialysis [address] [place], [place] [address] Nurse, Lance [employer] [address] [place] [address] 07/12/2024 1:00 PM EDT Nurse Only Home Dialysis [address] [place] [address] Nurse, [address] [place] [address] 07/22/2024 1:00 PM EST Office Visit Home Dialysis [address] [place], [place] [address] [facility], Peritoneal Dialysis [address] [place] [address] 08/11/2024 8:00 AM EST Treatment Home Dialysis [facility] [place], [place] [phone] Nurse, Lance [address] [employer] [address] [place], [place] [address] 08/12/2024 1:00 PM EST Nurse Only Home Dialysis [address] [place] [address] [phone] Nurse, [address] [place] [address] [phone] 08/20/2024 1:00 PM EST Office Visit Home [...] 16.8 g/dL 11/03/2023 8:30 PM EST LABORATORY [facility] Blood Venous blood specimen / Unknown Venipuncture / Unknown 11/03/2023 1:24 PM EST 11/03/2023 6:33 PM EST Akosua Lopez MD LAB BLOOD ORDER [facility] [address] [place] [address] documented in this encounter Visit Diagnoses Diagnosis [...] Advance Directives occurred with: Patient Care Teams Photocopying Equipment Mechanic Relationship Specialty Start Date End Date Tomer Garner MD [address] [place] [address] PCP - General 09/19/02 documented as of this encounter
--- OUTSIDE RECORDS SUMMARY | 2024-03-17 14:27 | External Medical Summary | Summary of Care ---
Author Name Unknown Organization [facility] Address [address] [facility] [place] [address] Phone [phone] Care Team Providers Care Educational Therapist Name Role Phone Tomer Garner MD Primary Care Provider [phone] Reason for Visit * Reason Comments CAPD Follow-Up Encounter Details Date Type Department Care Team (Late st Contact Info) Description 10/12/2023 8:00 AM EST Treatment Home Dialysis [place] [...] the morning. 30 Tablet 11 09/28/2023 Active Mycophenolate Mofetil 500 MG Oral Tablet (CellCept) [...] 60 Tablet 6 06/07/2023 10/27/19 24 Discontinued Metoprolol Succinate ER 100 MG Oral Tablet Extended Release 24 Hour (toPROL XL) TAKE 1 TABLET BY MOUTH EVERY DAY IN THE MORNING 90 Tablet 6 09/29/2023 10/27/19 24 Discontinued documented as of this [...] (Oral) 1981,04/11 Pneumococcal Conjugate Vacci ne, 20-valent ([id number]) 11/17/2022 Seasonal Influenza, PF, 6 M & [...] Notes * Karrie Russo TECH - 11/10/2023 2:14 PM EST Monthly billing note, labs released. documented in this encounter Plan of Treatment Upcoming Encounters Date Type Department Care Team (Late st Contact Info) Description 12/04/2023 1:00 PM EDT Office Visit Home Dialysis [address] [place] [address] Mdc, Peritoneal Dialysis [address] [place] [address] 12/11/2023 8:00 AM EDT Treatment Home Dialysis Hamzah Lucas [address] [place] [address] Nurse, Lance Lopez [address] [place] [address] 12/11/2023 1:00 PM EDT Nurse Only Home Dialysis Hamzah [address] [place] [address] Nurse, [address] [facility] [address] [place], [place] [address] 12/26/2023 1:00 PM EDT Office Visit Home Dialysis Hamzah [address] [place], [place] [address] [facility] [address] [place] [address] 01/10/2024 8:00 AM EDT Treatment Home Dialysis Hamzah [address] [place], [place] [phone] Nurse, Lance [address] [facility] [address] [place] [address] 01/10/2024 1:00 PM EDT Nurse Only Home Dialysis Hamzah [address] [place], [place] [phone] Nurse, Lance [address] [facility] [address] [place] [address] 02/08/2024 1:00 PM EDT Office Visit Home Dialysis Hamzah [address] [place] [address] [facility] [place] [address] [place] [facility] [place] [address] 02/10/2024 8:00 AM EDT Treatment Home Dialysis Hamzah Lucas [address] [place], [place] [phone] Nurse, Lance [address] [facility] [address] [place] [address] 02/12/2024 1:00 PM EDT Nurse Only Home Dialysis Hamzah [address] [place], [place] [phone] Nurse, Lance [address] [facility] [address] [place] [address] 03/05/2024 1:00 PM EDT Office Visit Home Dialysis Hamzah [address] [place], [place] [address] [facility] [place] [address] [place] [address] 03/11/2024 8:00 AM EDT Treatment Home Dialysis Hamzah [address] [place], [place] [address] Nurse, Lance [facility] [address] [place], [place] [address] 03/11/2024 1:00 PM EDT Nurse Only Home Dialysis Hamzah [address] [place], [place] [phone] Nurse, Lance [address] [facility] [address] [place], [place] [address] 03/19/2024 1:00 PM EDT Office Visit Home Dialysis Hamzah [address] [place], [place] [address] [facility] [place] [address] [place] [facility] [place] [address] 04/11/2024 8:00 AM EDT Treatment Home Dialysis Hamzah [address] [place], [place] [address] Nurse, Lance [facility] [address] [place], [place] [address] 04/11/2024 1:00 PM EDT Nurse Only Home Dialysis Hamzah [address] [place], [place] [address] Nurse, [employer] [address] [place], [place] [address] 04/29/2024 1:00 PM EDT Office Visit Home Dialysis Hamzah [address] [place], [place] [address] [facility] [place] [address] [facility] [place] [address] 05/12/2024 8:00 AM EDT Treatment Home Dialysis Hamzah [address] [place], [place] [address] Nurse, [address] [facility] [address] [place], [place] [address] 05/14/2024 1:00 PM EDT Nurse Only Home Dialysis Hamzah [address] [place], [place] [phone] Nurse, Lance [address] [facility] [address] [place], [place] 06/07/2024 1:00 PM EDT Office Visit Home Dialysis Hamzah Lucas [address] [place], [place] [address] [facility] [place] [address] [place] [address] 06/11/2024 8:00 AM EDT Treatment Home Dialysis Hamzah [address] [place], [place] [phone] Nurse, Lance [facility] [address] [address] [place], [place] [address] 06/11/2024 1:00 PM EDT Nurse Only Home Dialysis Hamzah [address] [place], [place] [phone] Nurse, Lance [address] [facility] [address] [place], [place] [address] 06/25/2024 1:00 PM EDT Office Visit Home Dialysis Hamzah Lucas [address] [place], [place] [address] [facility] [place] [address] [place] [address] 07/12/2024 8:00 AM EDT Treatment Home Dialysis Hamzah Lucas Dr [address] [phone] Nurse, Lance [address] [facility] [address] [place], [place] [id number] 07/12/2024 1:00 PM EDT Nurse Only Home Dialysis Hamzah Lucas Dr [place], [place] [phone] Nurse, Lance Jessica Bee [place], [place] [address] 07/22/2024 1:00 PM EST Office Visit Home Dialysis Hamzah Lucas Dr [place], [place] [phone] [facility] [place] [address] [facility] [place] [id number] 08/11/2024 8:00 AM EST Treatment Home Dialysis Hamzah Lucas Dr [place], [place] [phone] Nurse, Lance Lopez [facility] [place], [place] [address] 08/12/2024 1:00 PM EST Nurse Only Home Dialysis Hamzah Lucas Dr [place], [place] [phone] Nurse, Lance Jessica Bee [place], [place] [phone] 08/20/2024 1:00 PM EST Office Visit Home Dialysis Hamzah Lucas Dr [place], [place] [address] [facility] [place]ialysis [address] [place], [place] [address] Scheduled Orders Name Type Priority Associated Diagnoses Orde r Schedule CCPD Procedures Routine 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 chronic kidney disease, not on chronic dialysis (HCC) ESRD on peritoneal dialysis (HCC) Ordered: 10/12/2023 Health Maintenance Due Date Last Done Comments [...] Associated Diagnosis Comments CREATININE, BODY FLUID Routine 10/17/2023 1:21 PM EST ESRD on peritoneal dialysis (HCC) UREA NITROGEN, PERITONEAL DIALYSATE Routine 10/17/2023 1:21 PM EST ESRD on peritoneal dialysis (HCC) documented in this encounter Results * CREATININE, BODY FLUID (10/17/2023 1:21 PM EST) Creatinine, Body Fluid 8.4 mg/dL 10/17/2023 6:34 PM EST LABORATORY [facility] Comment: The reference interval(s) and other method performance specifications may not be available for this body fluid. Comparison of this result with the concentration in the blood, serum, or plasma is recommended. The test result must be integrated into the clinical context for interpretation. Please refer to test catalog (https://www.[employer]/catalog/body_fluids.cfm) for additional interpretive information. This test was developed and its performance characteristics determined by [employer]. It has not been cleared or approved by the [place] Food and Drug Administration. Body Fluid Specimen from wound / Unknown Non-blood Collection / Unknown 10/17/2023 1:21 PM EST 10/17/2023 6:12 PM EST Akosua Lopez MD LAB FLUID AND S TOOL ORDERABLES Performing Organization Address [facility] de Phone Number LABORATORY [facility] [address] [place] [address] * UREA NITROGEN, PERITONEAL DIALYSATE (10/17/2023 1:21 PM EST) Pathologist [facility] Urea Nitrogen, Peritoneal Fluid 56 mg/dL 10/17/2023 6:34 PM EST LABORATORY [facility] Comment: The reference interval(s) and other method performance specifications may not be available for this body fluid. Comparison of this result with the concentration in the blood, serum, or plasma is recommended. The test result must be integrated into the clinical context for interpretation. Please refer to test catalog (https://www.[employer]/catalog/body_fluids.cfm) for additional interpretive information. This test was developed and its performance characteristics determined by [employer]. It has not been cleared or approved by the [place] Food and Drug Administration. Body Fluid Specimen from wound / Unknown Non-blood Collection / Unknown 10/17/2023 1:21 PM EST 10/17/2023 6:12 PM EST Akosua Lopez MD LAB FLUID AND S TOOL ORDERABLES Performing Organization Address [facility] de Phone Number LABORATORY [address] [address] * HEPATITIS B SURFACE ANTIGEN (10/17/2023 12:42 PM EST) Hepatitis B Surface Antigen Negative Negative 10/18/2023 12:04 AM EST LABORATORY [facility] Blood Venous blood specimen / Unknown Venipuncture / Unknown 10/17/2023 12:42 PM EST 10/17/2023 12:42 PM EST Akosua Lopez MD LAB BLOOD ORDER YAO LAB[facility] [address] [place] [address] * (ABNORMAL) PTH (10/17/2023 12:42 PM EST) PTH 983(H) 15 - 65 pg/mL 10/18/2023 6:57 AM EST LAB[facility]ORY [facility] Blood Venous blood specimen / Unknown Venipuncture / Unknown 10/17/2023 12:42 PM EST 10/17/2023 12:42 PM EST Akosua Lopez MD LAB BLOOD ORDER YAO Performing Organization Address City/[facility]/ZIP Co de Phone Number LABORATORY [facility] [address] [place] [address] * (ABNORMAL) ADJUSTED CALCIUM PHOSPHORUS PRODUCT (10/17/2023 12:42 PM EST) Albumin 4.6 3.8 - 5.0 g/dL 10/18/2023 12:20 AM EST LAB[facility] Calcium 8.8 8.4 - 10.2 mg/dL 10/18/2023 12:20 AM EST LAB[facility] Phosphorus 17.7(H) 2.5 - 4.8 mg/dL 10/18/2023 12:20 AM EST [facility] Adjusted Calcium 8.8 mg/dL 10/18/2023 12:20 AM EST [facility] Calcium Phosphorus Product 155.8 10/18/2023 12:20 AM EST [facility] Blood Venous blood specimen / Unknown Venipuncture / Unknown 10/17/2023 12:42 PM EST 10/17/2023 12:42 PM EST Akosua Lopez MD LAB BLOOD ORDER YAO [facility] [address] [place] [address] * (ABNORMAL) IRON SCREEN, INCLUDING TIBC (10/17/2023 12:42 PM EST) Iron 213(H) 45 - 176 ug/dL 10/18/2023 12:20 AM EST [facility] Iron Binding Capacity 233(L) 250 - 425 ug/dL 10/18/2023 12:20 AM EST [facility] Transferrin Saturation Percent 91(H) 15 - 55 % 10/18/2023 12:20 AM EST [facility] Blood Venous blood specimen / Unknown Venipuncture / Unknown 10/17/2023 12:42 PM EST 10/17/2023 12:42 PM EST Akosua Lopez MD LAB BLOOD ORDER YAO Performing Organization Address City/[facility]/ZIP Co de Phone Number LABORATORY [facility] [address] [place] [address] * ALT (10/17/2023 12:42 PM EST) ALT 18 10 - 50 U/L 10/18/2023 12:20 AM EST LAB[facility] Blood Venous blood specimen / Unknown Venipuncture / Unknown 10/17/2023 12:42 PM EST 10/17/2023 12:42 PM EST Akosua Lopez MD LAB BLOOD ORDER YAO LAB[facility]ATORY [facility] [address] [place] [address] documented in this encounter Visit Diagnoses Diagnosis [...] Advance Directives occurred with: Patient Care Teams Educational Therapist Relationship Specialty Start Date End Date oTmer Garner MD [address] [phone] PCP - General 09/19/02 documented as of this encounter
--- OUTSIDE RECORDS SUMMARY | 2024-03-17 14:27 | External Medical Summary | Summary of Care ---
Author Name Unknown Organization [facility] Address [address] [facility] [place] [address] Phone [phone] Care Team Providers Care Planning Aide Name Role Phone Tomer Garner MD Primary Care Provider [phone] Reason for Visit * Reason Onset Date Comments Other 11/08/2023 CCPD check Encounter Details Date Type Department Care Team (Late st Contact Info) Description 11/08/2023 Telephone Home Dialysis [address]iel [address] [place] [address] Sophia Hernandez RN Other (CCPD check) Allergies No known active allergiesdocumented as [...] (Oral) 1981,04/11 Pneumococcal Conjugate Vacci ne, 20-valent ([id number]) 11/17/2022 Seasonal Influenza, PF, 6 M & [...] Telephone Encounter - Sophia Hernandez RN - 11/08/2023 1:51 PM EST PD nurse called pt for daily check on CCPD and CAPD treatment. PT therapy plan edited per Dr. Lopez for greater fluid removal as BP is now in normal range. PT reported weight today is 129 kg, BP 135/80. PT CCPD edited and entered into chart into therapy plan and share source. CCPD 4 exchanges 1.5% 2800 ml 10 hr treatment Last fill 2800 ml 2.5% 4 hr dwell Manual exchange 2500 ml 2.5% 4 hr dwell. Pt reports no SOB, swelling,(though above dry wt), chest pain or abd pain at this time. PT verbalized understanding to call CCPD clinic or business relationship manager nephrology with any new symptoms or concerns. documented in this encounter Plan of Treatment Upcoming Encounters Date Type Department Care Team (Late st Contact Info) Description 11/10/2023 8:00 AM EST Treatment Home Dialysis Clau [address] [place] [phone] Nurse, Lancebaltazar Bee [address] [place] [address] 12/04/2023 1:00 PM EDT Office Visit Home Dialysis Clau [address] [place] [address] [address] [phone] Mdc, Peritoneal Dialysis [address] [facility] [place] [address] 12/11/2023 8:00 AM EDT Treatment Home Dialysis Clau Lucas Dr [address] [place] [address] [address] [phone] Nurse, [employer] [facility] [address] [place] [address] 12/11/2023 1:00 PM EDT Nurse Only Home Dialysis Clau [address] [place] [address] Nurse, [address] [facility] [address] [place] [address] 12/26/2023 1:00 PM EDT Office Visit Home Dialysis Clau Lucas [address] [place], [place] [address] Mdc, Peritoneal Dialysis [address] [facility] [place] [address] 01/10/2024 8:00 AM EDT Treatment Home Dialysis Clau Lucas Dr [address] [place], [place] [phone] Nurse, [address] [facility] [address] [place] [address] 01/10/2024 1:00 PM EDT Nurse Only Home Dialysis Clau [address] [place], [place] [address] Nurse, [address] [facility] [address] [place] [address] 02/08/2024 1:00 PM EDT Office Visit Home Dialysis Clau [address] [place] [address] [facility] [place], Peritoneal Dialysis [address] [facility] [place] [address] 02/10/2024 8:00 AM EDT Treatment Home Dialysis Clau Lucas Dr [address] [place], [place] [address] Nurse, [address] [facility] [address] [place] [address] 02/12/2024 1:00 PM EDT Nurse Only Home Dialysis Clau [address] [place] [address] Nurse, [address] [facility] [address] [place] [address] 03/05/2024 1:00 PM EDT Office Visit Home Dialysis Clau [address] [place], [place] [address] Mdc, Peritoneal Dialysis [address] [place] [address] 03/11/2024 8:00 AM EDT Treatment Home Dialysis Clau Lucas [address] [place], [place] [address] Nurse, [address] [facility] [address] [place], [place] [address] 03/11/2024 1:00 PM EDT Nurse Only Home Dialysis Clau [address] [place], [place] [phone] Nurse, [address] [facility] [address] [place], [place] [address] 03/19/2024 1:00 PM EDT Office Visit Home Dialysis Clau Lucas [address] [place], [place] [address] [facility] [place], Peritoneal Dialysis [address] [facility] [place] [address] 04/11/2024 8:00 AM EDT Treatment Home Dialysis Clau [address] [place], [place] [address] Nurse, [address] [facility] [address] [place] [address] 04/11/2024 1:00 PM EDT Nurse Only Home Dialysis Clau [address] [place], [place] [address] Nurse, Lance [employer] [facility] [place] [address] 04/29/2024 1:00 PM EDT Office Visit Home Dialysis Clau Lucas Dr [address] [place], [place] [address] Mdc, Peritoneal Dialysis [address] [place] [address] 05/12/2024 8:00 AM EDT Treatment Home Dialysis Clau Lucas [address] [place] [address] Nurse, [address] [facility] [address] [place], [place] [address] 05/14/2024 1:00 PM EDT Nurse Only Home Dialysis Clau [address] [place], [place] [address] Nurse, [address] [facility] [address] [place], [place] [address] 06/07/2024 1:00 PM EDT Office Visit Home Dialysis Clau [address] [place], [place] [phone] [facility] [place], Peritoneal Dialysis [address] [place] [address] 06/11/2024 8:00 AM EDT Treatment Home Dialysis Clau Lucas [address] [place], [place] [phone] Nurse, [address] [facility] [address] [place] [address] 06/11/2024 1:00 PM EDT Nurse Only Home Dialysis Clau [address] [place], [place] [address] Nurse, Lance Lopez [address] [place] [address] 06/25/2024 1:00 PM EDT Office Visit Home Dialysis Clau Lucas [address] [place] [address] [facility], Peritoneal Dialysis [address] [place] [address] 07/12/2024 8:00 AM EDT Treatment Home Dialysis Clau Lucas Dr [address] [place], [place] [phone] Nurse, Lance [address] [facility] [address] [place], [place] [address] 07/12/2024 1:00 PM EDT Nurse Only Home Dialysis Clau [address] [place] [address] [phone] Nurse, Lance [employer] [address] [place] [address] 07/22/2024 1:00 PM EST Office Visit Home Dialysis Clau Lucas Dr [address] [place] [address] [phone] [facility], Peritoneal Dialysis [address] [facility] [place] [id number] 08/11/2024 8:00 AM EST Treatment Home Dialysis Clau Lucas Dr [address] [place] [address] [phone] Nurse, [address] [facility] [address] [place] [address] [phone] 08/12/2024 1:00 PM EST Nurse Only Home Dialysis Clau Lucas [address] [place] [address] [phone] Nurse, [employer] [address] [place] [address] [phone] 08/20/2024 1:00 PM EST Office Visit Home Dialysis Clau Lucas Dr [address] [place] [address] [address] [phone] Mdc, Peritoneal Dialysis [address] [place] [address] Health Maintenance Due Date Last Done Comments [...] Advance Directives occurred with: Patient Care Teams Planning Aide Relationship Specialty Start Date End Date Tomer Garner MD [address] [place] [address] PCP - General 09/19/02 documented as of this encounter
--- OUTSIDE RECORDS SUMMARY | 2024-03-17 14:27 | External Medical Summary | Summary of Care ---
Author Name Unknown Organization [facility] Address [address] [facility] [place] [address] Phone [phone] Care Team Providers Care Supervisor Inspecting Name Role Phone Tomer Garner MD Primary Care Provider [phone] Reason for Visit * Reason Comments CAPD [...] (Oral) 1981,04/11 Pneumococcal Conjugate Vacci ne, 20-valent ([id number]) 11/17/2022 Seasonal Influenza, PF, 6 M & [...] Notes * Karrie Russo TECH - 11/10/2023 1:55 PM EST Monthly billing note, labs released. documented in this encounter Plan of Treatment Upcoming Encounters Date Type Department Care Team (Late st Contact Info) Description 12/04/2023 1:00 PM EDT Office Visit Home Dialysis [address] [place] [address] [facility], Peritoneal Dialysis [address] [place] [address] 12/11/2023 8:00 AM EDT Treatment Home Dialysis [address] [place] [address] [address] [place] [address] 12/11/2023 1:00 PM EDT Nurse Only Home Dialysis [address] [place] [address] Nurse, Lance Bee [address] [place] [address] 12/26/2023 1:00 PM EDT Office Visit Home Dialysis [address] [place] [address] [facility] [place] [address] [place] [address] 01/10/2024 8:00 AM EDT Treatment Home Dialysis [address] [place] [address] Nurse, Lance [address] [facility] [address] [place] [address] 01/10/2024 1:00 PM EDT Nurse Only Home Dialysis [address] [place] [address] Nurse, Lance [address] [facility] [address] [place] [address] 02/08/2024 1:00 PM EDT Office Visit Home Dialysis [address] [place] [address] [facility] [place] [address] [place] [address] 02/10/2024 8:00 AM EDT Treatment Home Dialysis [address] [place], [place] [address] Nurse, [address] [facility] [address] [place] [address] 02/12/2024 1:00 PM EDT Nurse Only Home Dialysis [address] [place] [address] Nurse, [address] [facility] [address] [place] [address] 03/05/2024 1:00 PM EDT Office Visit Home Dialysis [address] [place] [address] [facility] [place] [address] [place] [address] 03/11/2024 8:00 AM EDT Treatment Home Dialysis [address] [place], [place] [address] Nurse, Lance [address] [facility] [address] [place] [address] 03/11/2024 1:00 PM EDT Nurse Only Home Dialysis [address], [place] [address] Nurse, Lance [address] [facility] [address] [place] [address] 03/19/2024 1:00 PM EDT Office Visit Home Dialysis [address] [place], [place] [address] [facility] [place] [address] [place] [address] 04/11/2024 8:00 AM EDT Treatment Home Dialysis [address] [place] [address] Nurse, [address] [facility] [address] [place], [place] [address] 04/11/2024 1:00 PM EDT Nurse Only Home Dialysis [address] [place], [place] [phone] Nurse, Lance [address] [facility] [address] [place], [place] [address] 04/29/2024 1:00 PM EDT Office Visit Home Dialysis [address] [place] [address] [facility] [place] [address] [place] [facility] [address] 05/12/2024 8:00 AM EDT Treatment Home Dialysis [facility] [place], [place] [address] Nurse, Lance [address] [facility] [address] [place] [address] 05/14/2024 1:00 PM EDT Nurse Only Home Dialysis [address] [place] [address] Nurse, Lance [address] [facility] [address] [place] [address] 06/07/2024 1:00 PM EDT Office Visit Home Dialysis [address] [place], [place] [address] [facility], Peritoneal Dialysis [address] [place] [address] 06/11/2024 8:00 AM EDT Treatment Home Dialysis [address] [place], [place] [address] Nurse, Lance [employer] [facility] [place], [place] [address] 06/11/2024 1:00 PM EDT Nurse Only Home Dialysis [address] [place], [place] [phone] Nurse, [facility] [employer] [facility] [place], [place] [address] 06/25/2024 1:00 PM EDT Office Visit Home Dialysis [address] [place], [place] [address] [facility] [place] [address] [place] [address] 07/12/2024 8:00 AM EDT Treatment Home Dialysis [address] [place], [place] [address] Nurse, Lance [employer] [address] [place] [address] 07/12/2024 1:00 PM EDT Nurse Only Home Dialysis [address] [place], [place] [address] Nurse, [address] [employer] [address] [place] [address] 07/22/2024 1:00 PM EST Office Visit Home Dialysis [address] [place], [place] [address] [facility] [place] [address] [place] [address] 08/11/2024 8:00 AM EST Treatment Home Dialysis [address] [place], [place] [phone] Nurse, Lance [address] [facility] [address] [place], [place] [id number] 08/12/2024 1:00 PM EST Nurse Only Home Dialysis [address] [phone] Nurse, Dheere Bolo [facility] [address] [id number] 08/20/2024 1:00 PM EST Office Visit Home Dialysis [address] [place], [place] [phone] [facility], Peritoneal Dialysis [address] [facility] [place] [address] Scheduled Orders Name Type Priority Associated Diagnoses Orde r Schedule ALT Lab STAT 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 chronic kidney disease, not on chronic dialysis (HCC) ESRD on peritoneal dialysis ([facility]) Expected: 11/10/2023, Expires: 12/10/2024 BUN Lab STAT 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 chronic kidney disease, not on chronic dialysis (HCC) ESRD on peritoneal dialysis ([facility]) Expected: 11/10/2023, Expires: 12/10/2024 POTASSIUM Lab STAT 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 chronic kidney disease, not on chronic dialysis (HCC) ESRD on peritoneal dialysis ([facility]) Expected: 11/10/2023, Expires: 12/10/2024 HGB Lab STAT 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 chronic kidney disease, not on chronic dialysis (HCC) ESRD on peritoneal dialysis ([facility]) Expected: 11/10/2023, Expires: 12/10/2024 IRON SCREEN, INCLUDING TIBC Lab STAT 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 chronic kidney disease, not on chronic dialysis (HCC) ESRD on peritoneal dialysis ([facility]) Expected: 11/10/2023, Expires: 12/10/2024 ADJUSTED CALCIUM PHOSPHORUS PRODUCT Lab STAT 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 chronic kidney disease, not on chronic dialysis (HCC) ESRD on peritoneal dialysis ([facility]) Expected: 11/10/2023, Expires: 12/10/2024 CREATININE Lab Routine 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 chronic kidney disease, not on chronic dialysis (HCC) ESRD on peritoneal dialysis (HCC) Expected: 11/10/2023, Expires: 12/10/2024 CO2 Lab STAT 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 chronic kidney disease, not on chronic dialysis (HCC) ESRD on peritoneal dialysis (HCC) Expected: 11/10/2023, Expires: 12/10/2024 PTH Lab STAT 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 chronic kidney disease, not on chronic dialysis (HCC) ESRD on peritoneal dialysis (HCC) Expected: 11/10/2023, Expires: 12/10/2024 CHLORIDE Lab Routine 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 chronic kidney disease, not on chronic dialysis (HCC) ESRD on peritoneal dialysis (HCC) One Time for 1 Occurrences starting 11/10/2023 until 11/10/2023 SODIUM Lab Routine 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 chronic kidney disease, not on chronic dialysis (HCC) ESRD on peritoneal dialysis (HCC) One Time for 1 Occurrences starting 11/10/2023 until 11/10/2023 Health Maintenance Due Date Last Done Comments [...] Directives occurred with: Patient Care Teams Supervisor Inspecting Relationship Specialty Start Date End Date Tomer Garner MD [address] [place] [address] PCP - General 09/19/02 documented as of this encounter
--- OUTSIDE RECORDS SUMMARY | 2024-03-17 14:27 | External Medical Summary ---
Author Name Unknown Address Unknown Organization [id number]:[facility] [place] [address] [place] [address] Laboratory Report Ordering Provider Test Date Status MARI BOB 11/07/2023 13:57:01 Final Observation Date Value Abnormality Reference (Units ) Status BUN 11/07/2023 13:57:01 50 Above high normal 6-20 (mg/dL) Final Creatinine 11/07/2023 13:57:01 21.3 Above high normal 0.6-1.2 (mg/dL) Final Glomerular filtration rate/1.73 sq M.predicted [Volume Rate/Area] in Serum, Plasma or Blood by Creatinine-based formula (CKD-EPI) 11/07/2023 13:57:01 2 Below low normal >=60 (mL/min) Final eGFR is calculated based on the CKD-EPI 2020 equation SODIUM 11/07/2023 13:57:01 136 135-146 (m mol/L) Final Potassium 11/07/2023 13:57:01 3.4 Below low normal 3.5 -5.1 (mmol/L) Final Cl 11/07/2023 13:57:01 92 Below low normal 98- 107 (mmol/L) Final CO2 11/07/2023 13:57:01 18 Below low normal 22- 32 (mmol/L) Final Anion gap 11/07/2023 13:57:01 26 Above high normal 7- 15 (mmol/L) Final Glucose 11/07/2023 13:57:01 88 70-120 (mg /dL) Final Calcium 11/07/2023 13:57:01 8.8 8.4-10.2 ( mg/dL) Final Albumin 11/07/2023 13:57:01 4.0 3.8-5.0 (g /dL) Final Phosphate 11/07/2023 13:57:01 9.7 Above high normal 2. 5-4.8 (mg/dL) Final Performing Location [facility] - [address] [place] [address]
--- OUTSIDE RECORDS SUMMARY | 2024-03-17 14:28 | External Medical Summary ---
Author Name Unknown Address Unknown Organization K01:[facility] [address] [place] [address] Laboratory Report Ordering Provider Test Date Status LISBETHGUERRA 11/03/2023 13:24:39 Final Observation Date Value Abnormality Reference (Units ) Status Hemoglobin 11/03/2023 13:24:39 10.0 Below low normal 14 .0-16.8 (g/dL) Final Performing Location [facility] - [address] [place] [address]
--- OUTSIDE RECORDS SUMMARY | 2024-03-17 14:28 | External Medical Summary | Summary of Care ---
Author Name Unknown Organization [facility] Address [address] [place] [address] Phone [phone] Care Team Providers Care Pellet Post Inspector Name Role Phone Tomer Garner MD Primary Care Provider [phone] Reason for Referral * Evaluate & Treat - Unlimited Visits (Within 10 days (routine)) - Authorized Specialty Diagnoses / Procedures Referred By Adis monahan Referred To Contact Sleep Medicine / Sleep Disorders Diagnoses BISI (obstructive sleep apnea) Radha Alonso MD [address] [facility] [place] [address] Referral ID Status Reason Start Date Expiration Date Visits Requested Visits Authorized [id number] Authorized Specialty Services Required 10/31/2023 2 2 Question Answer Referral Priority Within 10 days (routine) Where should this appointment be scheduled? [facility] SLEEP MED ADULT REFERRAL Sleep Apnea Testing and Management Does the patient snore and/or gasp at night or has been told they stop breathing at night? Yes Comments Discharge Order Reason for Visit * Reason Comments Hypotension Vomiting * Auth/Cert Specialty Diagnoses / Procedures Referred By Contac t Referred To Contact Referral ID Status Reason Start Date Expiration Date Visits Re quested Visits Authorized [id number] Encounter Details Date Type Department Care Team (Latest Contact Info) Description 10/28/2023 12:23 PM EST - 10/31/2023 10:45 AM EST Hospital Encounter [facility], [facility] 8th [address] [place] [address] Dayron Ross MD [address] [place] [address] Emma Mcclain MD [address] [facility] [place] [address] Radha Alonso MD [address] [facility] [place] [address] Diagnostic Clarification Discharge Disposition: Home - Self Care Allergies No known active allergiesdocumented as of this encounter (statuses as of 10/31/2023) Medications Medication Sig Dispensed Refills Start Date [...] the morning. 90 Tablet 1 12/01/2022 Active Febuxostat 80 MG Oral Tablet (Uloric)Indicatio ns:Chronic [...] Tablet before bedtime. 360 Tablet 1 11/07/2022 4 Discontinued Potassium Chloride Charlotte ER 20 MEQ Oral Tablet Extended Release Take 1 Tablet by mouth in the morning. 30 Tablet 11 10/27/2023 4 Discontinued NIFEdipine ER 30 MG Oral Tablet Extended Release 24 Hour (Adalat CC) Take 1 Tablet by mouth in the morning. 0 4 Discontinued Metoprolol Succinate 100 MG Oral Capsule ER 24 Hour Sprinkle Take 100 mg by mouth in the morning. 0 4 Discontinued documented as of this encounter (statuses as of 10/31/2023) Active Problems Problem Noted Date Diagnosed Date Orthostatic hypotension 10/30/2023 Shock 10/29/2023 Hypovolemia 10/29/2023 Dialysis-associated peritonitis 10/28/2023 Anemia in chronic renal disease 04/27/2023 Anemia of chronic renal failure, stage 5 023 ESRD on peritoneal dialysis 02/21/2023 Body mass index (BMI) of 40.0 to 44.9 in adult 0 12/19/2022 Overview: Per Obesity protocol Bandemia 11/03/2022 Metabolic acidosis 11/03/2022 Hypokalemia 11/03/2022 Sepsis 11/01/2022 Pneumonia due to infectious organism 10/31/2022 ULICES (acute kidney injury) 10/31/2022 Gouty arthropathy [...] as of this encounter (statuses as of 10/31/2023) Resolved Problems Problem Noted Date Diagnosed Date Resolved Date Dyslipidemia, goal to be determined 08/27/2009 11/21/2013 Overview: Per Lipid Taxonomy. PURE HYPERCHOLESTEROLEM 04/25/200208/11 Overview: Per Lipid Taxonomy. 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 Never true 11/11/19 Within the past 12 months, t he [...] Sign Reading Time Taken Comments Blood Pressure 133/89 10/31/2023 7:14 AM EST Pulse 91 10/31/2023 7:14 AM EST Temperature 37 C (98.6 F) 10/31/2023 7:14 AM EST Respiratory Rate 16 10/31/2023 7:14 AM EST Oxygen Saturation 95% 10/31/2023 7:14 AM EST Inhaled Oxygen Concentration - - Weight 121.2 kg (267 lb 3.2 oz) 10/31/2023 6:30 AM EST Height 177.8 cm (5' 10") 10/28/2023 6:10 PM EST Body Mass Index 38.34 10/28/2023 6:10 PM EST documented in this [...] No 11/01/2022 documented as of this encounter Discharge Summaries * Radha Alonso MD - 10/31/2023 10:45 AM EST /\\[address] [address] Admission Date: 10/28/2023 Discharge Date: 10/31/2023 RECOMMENDED TO DO FOR NEXT PROVIDER(S): Please follow-up. 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 Lab workup remarkable for neutrophilic leukocytosis, chronic normocytic anemia, anion gap acidosis, lactate 2. Chest x- ray without any acute pathology. Patient was evaluated by critical Medicine re commended admission on the floor. Patient was given 1 dose of vancomycin and Zosyn in the ED along with 500 mL fluid bolus. The patient on my examination was sitting comfortably, systolic blood pressure in 130s on telemetry. Awake alert oriented, stated that for past 3 days he noticed decreased blood pressure at home, Systolic blood pressure in 80s associated with blurring of the vision. Also endorsed 1 episode of nonbloody nonbilious emesis yesterday and 2 episodes of nonbloody nonbilious emesis today. Due to these symptoms he presented to the ED for further evaluation. Constitutional: no acute distress, (+) overweight HEENT: normal: normocephalic, atraumatic; no masses, tenderness, or adenopathy CV: normal rate and rhythm, no murmur, gallops or rub Chest: normal respiratory effort, lungs clear to auscultation and percussion Abdomen: normal: soft, bowel sounds normal, no masses, tenderness or organomegaly, peritoneal dialysis catheter in place, nontender non erythematous without any discharge Musculoskeletal: (-) negative Extremities: no clubbing, cyanosis, or edema, otherwise grossly normal, warm, and dry Skin: warm, dry: Neuro: alert, oriented to person, place, and time, normal mental status exam, reflexes normal and symmetric, sensory normal Psych: normal mood and affect, nonsuicidal, judgement normal, memory normal HOSPITAL COURSE (focused): 43 years old gentleman with a past medical history as above initially presented due to concern of hypotension dizziness and 2 episodes of vomiting. There was initially concern of sepsis on admission due to hypotension/leukocytosis. Patient was given 1 dose of vancomycin and Zosyn in the ED. Furtherantibiotics were held, patient otherwise remained asymptomatic and hemodynamically stable. Peritoneal fluid studies were negative preliminary cultures negative for any infection. Echocardiogram negative without any acute pathology, MRSA screen negative. Home medication nifedipine and metoprolol were held inpatient was given gentle fluid hydration. Patient was found to be orthostatic positive which resolved with IV fluid resuscitation. Concern of adrenal insufficiency so cosyntropin stimulation test was done, discussed with Endocrinology, intermediate and if concern of hypotension again repeatedly then to repeat the testing. DHEA-S sent, still pending, patient advised to follow up [facility] for the results. Patient was evaluated by Nephrology and underwent dialysis which she tolerated well. Seen examined at the bedside, hemodynamically stable, in no acute distress, examination remarkable for peritoneal dialysis catheter in place without any concern of erythema swelling or any discharge,overweight, otherwise unremarkable. Operations & Procedures: none Complications: none significant Significant Lab and Imaging Results: As mentioned above Results Pending at Discharge: Lab Results Pending at Discharge: DHEA-SULFATE Add-on MRSA SCREEN, PCR Routine MEDICATION UPDATES AT DISCHARGE CONTINUE taking these medications INSTRUCTIONS calcium acetate (Phos Binder) 667 MG Caps Capsule Commonly known as: Phoslo Take 3 Capsules by mouth with meals and snacks. cinacalcet 30 MG Tablet Commonly known as: Sensipar Take 1 Tablet by mouth in the morning. cycloSPORINE modified 25 MG Caps Take 2 capsules in the morning and 2 capsules in the evening Dialyvite Tabs Take 1 Tablet by mouth in the morning. Docusate Sodium 100 MG Capsule Commonly known as: Colace Take 1 Capsule by mouth in the morning and 1 Capsule before bedtime. Febuxostat 80 MG Tablet Commonly known as: Uloric Take 1 Tablet by mouth in the morning. folic acid 1 MG Tablet Take 1 Tablet by mouth in the morning. gentamicin sulfate 0.1 % Crea Apply topically to affected area daily. Apply to PD exit catheter site daily after showering and cover with bandage Lovastatin 10 MG Tablet Take 1 Tablet by mouth in the morning. oxyCODONE 5 MG Capsule Commonly known as: Oxy IR Take 1 Capsule by mouth every 4 hours as needed for Pain, Severe. STOP taking these medications Metoprolol Succinate 100 MG Cs24 mycophenolate mofetil 500 MG Tablet Commonly known as: CellCept NIFEdipine ER 30 MG Tb24 Commonly known as: Adalat CC Potassium Chloride ER 20 MEQ Tbcr SCHEDULED FOLLOW-UP: Future Appointments Appt Date/Time Provider Department 11/03/2023 10:40 AM Tomer Garner MD [facility] 11/03/2023 1:00 PM [facility] [place] [address] 11/07/2023 10:00 AM Roxana Jewell PA-C Sleep Disorders Medicine [facility] 11/10/2023 8:00 AM [facility] [address] 11/10/2023 1:00 PM [facility] [address] 12/04/2023 1:00 PM Rich, Peritoneal Dialysis Home Dialysis [address] 12/11/2023 8:00 AM [facility] [address] 12/11/2023 1:00 PM [facility] [address] 12/26/2023 1:00 PM Rich, Peritoneal Dialysis Home Dialysis [address] 01/10/2024 8:00 AM Nurse, [facility] Lance [facility], [place] 01/10/2024 1:[address] [facility] Lance [facility], [place] 02/08/2024 1:00 PM [facility] [place], [place] 02/10/2024 8:[address] [facility] Lance Fern[facility]dez, [place] 02/12/2024 1:[address] [facility] Lance Fern[facility]dez, [place] 03/05/2024 1:00 PM [facility] [place] Dialysis Lance Fern[facility]dez, [place] 03/11/2024 8:[address] [facility] Lance Fern[facility]dez, [place] 03/11/2024 1:[address] [facility] Lance Fern[facility]dez, [place] 03/19/2024 1:00 PM [facility] [place] [facility] Dialysis [facility], [place] 04/11/2024 8:[address] [facility] Lance Fern[facility]dez, [place] 04/11/2024 1:00 PM Nurse, [facility] Lance Fern[facility]dez, [place] 04/29/2024 1:00 PM [facility] [place] [facility] Dialysis [facility], [place] 05/12/2024 8:[address] [facility] Lance Fern[facility]dez, [place] 05/14/2024 1:[address] [facility] Lance Fern[facility]dez, [place] 06/07/2024 1:00 PM [facility] [place] [facility] Dialysis [facility], [place] 06/11/2024 8:[address] [facility] Lance Fern[facility]dez, [place] 06/11/2024 1:[address] [facility] Lance Fern[facility]dez, [place] 06/25/2024 1:00 PM [facility] [place] [facility] Dialysis Lance Fern[facility]dez, [place] 07/12/2024 8:[address] [facility] Lance Fern[facility]dez, [place] 07/12/2024 1:[address] [facility] Lance Fern[facility]dez, [place] 07/22/2024 1:00 PM [facility] [place] [facility] Dialysis Lance Fern[facility]dez, [place] 08/11/2024 8:00 AM Nurse, Lance [facility] 08/12/2024 1:00 PM Nurse, [facility] [address] 08/20/2024 1:00 PM [facility], Peritoneal Dialysis Home Dialysis [address] Outpatient Follow Up SLEEP MEDICINE REFERRAL OP Other Information Indwelling Devices: LINES ALL Duration Hemodialysis Arteriovenous Fistula Left Forearm 252 days Peritoneal Dialysis Catheter Mid;Right Abdomen 70 days Vital Signs (last recorded): Most Recent Systolic BP: 133 mmHg (10/31/23713) Most Recent Diastolic BP: 89 mmHg (10/31/23713) Pulse: 91 (10/31/23713) Resp: 16 (10/31/23713) Most Recent Temperature: 37 C (10/31/23713) Weight: 121.2 kg (267 lb 3.2 oz) (10/31/23629) SpO2: 95 % (10/31/23713) O2 flow rate: 0 L/MIN (10/31/23722) Allergies: Patient has no known allergies. Activity: as tolerated Diet: age appropriate diet and renal diet Code Status: Full Code Condition on Discharge: stable Isolation status: None Cognition: normal HOSPITAL CONSULTS ORDERED: NEPHROLOGY CONSULT IP REFERRING PHYSICIAN: Ref: [id number]] NO STREET ADDRESS AVAILABLE None (office) None (fax) PRIMARY CARE PROVIDER: PCP: Tomer Garner MD [address] [address] (office) [phone] (fax) Note: To contact a physician responsible for this patients hospital care, please call [facility] [phone]. I spent a total of 40 minutes coordinating, documenting, and providing care for this patient excluding time spent in the performance of separately billed services. documented in this encounter Discharge Instructions * Discharge Instr - AVS* Radha Alonso MD - 10/31/2023 7:03 AM EST Discharge Date: 10/31/23 The information below provides you with the instructions and the list of medications you need to betaking following discharge from the hospital. If you have any questions, please ask before leaving. If you have questions after leaving, you can reach us at the numbers below. YOUR HOSPITAL PROVIDERS: Discharging Provider: Radha Alonso MD Provider Department: Hospital Medicine To reach this Provider Monday through Monday (8:00 AM to 4:30 PM) for any questions or test results: Call [phone] For after-hours concerns: Call [phone] and have your provider paged, or the provider airconditioning plant operator for the Department of Hospital Medicine paged. Please note, the discharging provider will not be able to provide you with any medications refills.Please discuss these with your primary care provider. Worsening Symptoms: If you have new symptoms, or your symptoms get worse, please contact your Discharge Provider or Primary Care Provider (PCP). If these providers are not available, you can go to your [facility] during their business hours. In an EMERGENCY situation: Call [phone] or go to the nearest emergency room. A BRIEF SUMMARY OF YOUR HOSPITAL STAY: You came to the hospital with: complaint of hypotension, vomiting Your main diagnosis at discharge was: Low blood pressure likely secondary to volume depletion from dialysis along with continuation of blood pressure medications Patient's blood pressure has been stable during the hospital stay without any blood pressure medications. Infectious etiology ruled out. There was initially concern of adrenal insufficiency but patient is stable and the test results could be indeterminate due to initial concern of sepsis on admission. Patient advised to follow up withthe PCP within 1 week and if continues to be hypotensive advised to repeat the testing then. Follow up with the Nephrology within 1 week of discharge. Patient home medication nifedipine and metoprolol are being held on discharge, advised to get a repeat blood pressure check on outpatient visit with the PCP or Nephrology and discuss about restartingmedications only if needed. Operations & Procedures performed: none Complications: none significant Inpatient test results that are pending at discharge: Yes DHEA-S, follow up with the PCP to get theresults of this. Advance Directive Documented: Advance Directive Does the Patient have an Advance Directive? No YOUR FOLLOW UP APPOINTMENTS: Primary Care Provider Information: PCP: Tomer Garner MD [address] [facility] / [facility] [address] (office) [phone] (fax) An appointment was requested with your PCP (Tomer Garner MD) within 3 days. (Please take this form to this visit with your primary care physician.) You need the following studies in the future: none INSTRUCTIONS: Diet: Previous diet Activity: No restrictions and As tolerated Additional Instructions: - Call your primary care physician or seek medical attention if worsening symptoms. documented in this encounter Progress Notes * Radha Alonso MD - 10/30/2023 12:34 PM EST Images from the original note were not included. [facility] H851/A INTERVAL HISTORY: The patient was seen examined this morning at the bedside, sitting comfortably, nephrology also at the bedside, discussed with him about the concern of possible adrenal insufficiency but waiting for Endocrinology evaluation. Patient stated that yesterday even when getting up from the bed he was lightheaded but denied any symptoms to me this morning. All other systems reviewed and negative. Objective Physical Exam Most Recent Vital Signs: BP: 100 mmHg/61 mmHg (10/30/23 1100) Pulse: 94 (10/30/23 1100) Temp: 36.72 C (10/30/23 1100) Temp Summary: Temp Min: 36.6 C (97.9 F) Max: 36.9 C (98.5 F) SpO2: 92 % (10/30/23 1100) O2 flow rate: 0 L/MIN (10/30/23 0745) Supplemental O2 Delivery: Room Air, None (10/30/23 0745) Constitutional: no acute distress, (+) overweight HEENT: normal: normocephalic, atraumatic; no masses, tenderness, or adenopathy CV: normal rate and rhythm, no murmur, gallops or rub Chest: normal respiratory effort, lungs clear to auscultation and percussion Abdomen: normal: soft, bowel sounds normal, no masses, tenderness or organomegaly, peritoneal dialysis catheter in place, nontender non erythematous without any discharge Musculoskeletal: (-) negative Extremities: no clubbing, cyanosis, or edema, otherwise grossly normal, warm, and dry Skin: warm, dry: Neuro: alert, oriented to person, place, and time, normal mental status exam, reflexes normal and symmetric, sensory normal Psych: normal mood and affect, nonsuicidal, judgement normal, memory normal Peripheral Line Right Antecubital 20 Gauge (Active) Number of days: 2 Peritoneal Dialysis Catheter Mid;Right Abdomen (Active) Number of days: 70 STUDIES: Encounter Orders Labs and other studies reviewed with pertinent findings noted below: Labs: No results found for this or any previous visit (from the past 6 hour(s)). Imaging: XR CHEST 1 VIEW Final Result EXAM XR CHEST 1 VIEW-10/28/2023 1:45 pm HISTORY Sepsis COMPARISON CT chest 05/30/2020. Chest radiograph 03/24/2023. TECHNIQUE Front view of the chest examined. FINDINGS FOREIGN BODIES, SUPPORT TUBES, LINES, DEVICES: None. LUNGS, PLEURA: Low lung volumes. No consolidative opacities. No large pleural effusion. No discernible pneumothorax. CARDIOVASCULAR, MEDIASTINUM: The cardiomediastinal silhouette is normal in size and morphology. OTHER: None. IMPRESSION IMPRESSION Low lung volumes, otherwise no evidence of acute cardiopulmonary disease. I have personally reviewed this examination and agree with the resident/fellow physician's interpretation. US ABDOMEN LIMITED Final Result EXAM US ABDOMEN LIMITED-10/28/2023 1:38 pm HISTORY RUQ abdominal pain; concern for sepsis TECHNIQUE Sonogram of the right upper quadrant. COMPARISON CT abdomen/pelvis 11/03/2022. FINDINGS LIVER: Normal echogenicity. No focal lesion. BILE DUCTS: No intrahepatic or extrahepatic duct dilatation. The common bile duct measures 3 mm. GALLBLADDER: Increased gallbladder wall thickening. No pericholecystic fluid or shadowing gallstones. No sonographic Villafana's sign per phd internship's exam. PANCREAS: Visualized portions are unremarkable. RIGHT KIDNEY: Poorly visualized aside from 3.3 x 2.8 x 2.5 cm simple cyst. Increased renal cortical echogenicity suggestive of medical renal disease. OTHER: No ascites. IMPRESSION IMPRESSION Gallbladder wall thickening. No pericholecystic fluid, shadowing gallstones, or sonographic Villafana sign to further support acute cholecystitis.. I have personally reviewed this examination and agree with the resident/fellow physician's interpretation. Assessment and Plan IMPRESSION : Principal Problem: Sepsis (HCC) Active Problems: Granulomatosis with polyangiitis (HCC) Kidney replaced by transplant Hypertension Dyslipidemia, goal LDL below 160 Metabolic acidosis ESRD on peritoneal dialysis (HCC) Anemia of chronic renal failure, stage 5 (HCC) Dialysis-associated peritonitis (HCC) Shock (HCC) Hypovolemia Resolved Problems: * No resolved hospital problems. * Orthostatic hypotension: Possibly secondary to volume depletion from dialysis vs Concern of possible adrenal insufficiency Concern of PD catheter related peritonitis?: ruled out --hypotensive/leukocytosis: Stable now Monitor on telemetry for now Status post 1 dose of vancomycin and Zosyn in the ED, will hold on to further antibiotics for now No concern of any ongoing infection, discontinued ID evaluation for now echocardiogram without any acute pathology Peritoneal fluid studies negative, preliminary cultures negative MRSA screen negative Holding BOOKKEEPER ASSISTANT nifedipine and metoprolol for now Sp isolyte at 75 mL/hour for next 8 hours Follow-up repeat orthostatic vital signs Cosyntropin stimulation test indeterminate, discussed with Endocrinology possibly concern of initial sepsis on admission? 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 * Akosua Lopez MD - 10/30/2023 11:05 AM EST ATTENDING PROGRESS NOTE - Nephrology [facility] [place], [place]-[address] [address] Name: Chandan Donato Location: [address] [facility] Current medication list reviewed. BP 117/70 | Pulse 92 | Temp 36.6 C (97.9 F) (Oral) | Resp 17 | Ht 1.778 m (5' 10") | Wt 121.5 kg (267 lb 14.4 oz) | SpO2 94% | BMI 38.44 kg/m | BSA 2.45 m Intake/Output Summary (Last 24 hours) at 10/30/2023 1105 Last data filed at 10/30/2023 0607 Gross per 24 hour Intake 300 ml Output 400 ml Net -100 ml GEN: NAD HEENT: PERRL, EOMI, no icterus, OP clear NECK: no LAD, no thyromegaly CV: RRR no M/R/G PULM: CTAB ABD: soft, NT, ND, +BS : no CVA tenderness EXT: no edema SKIN: no rash NEURO: no focal motor/sensory deficits LABS noted Normal 2 D echo A/p S/p kidney transplant failure (on prior custodial prednisone which has been off for several years now). ESKD on PD., recent start Low Transported membrane status associated with brisk UF and need for longer dwell time to improve efficiency of clearances. Hypotension likely from adrenal insufficiency? and volume depletion> improved with IVF. Pending Endocrine evaluation- guidance PLAN CAPD resumed * Akosua Lopez MD - 10/29/2023 9:11 AM EST ATTENDING PROGRESS NOTE - Nephrology [facility] [place], [place]-[address] [address] Name: Chandan Donato Location: [address] [facility] Current medication list reviewed. BP 111/57 | Pulse 90 | Temp 36.7 C (98 F) (Oral) | Resp 18 | Ht 1.778 m (5' 10") | Wt 121 kg (266 lb 12.8 oz) | SpO2 93% | BMI 38.28 kg/m | BSA 2.44 m Intake/Output Summary (Last 24 hours) at 10/29/2023 0911 Last data filed at 10/28/2023 1427 Gross per 24 hour Intake 500 ml Output -450 ml Net 950 ml GEN: NAD HEENT: PERRL, EOMI, no icterus, OP clear NECK: no LAD, no thyromegaly CV: RRR no M/R/G PULM: CTAB ABD: soft, NT, ND, +BS : no CVA tenderness EXT: no edema SKIN: no rash NEURO: no focal motor/sensory deficits LABS noted A/p ESKD on PD., recent start Low Transported membrane status associated with brisk UF and need for longer dwell time to improve efficiency of clearances. Hypotension likely from volume depletion due to brisk UF rates, low po intake. PLAN CAPD Needs echo to rule out pericardial effusion as possible contrinbutor of hypotension. Improvement ofBP with fluids is reassuring. No clinical features of tamponade but recommend echo for completeness. * Radha Alonso MD - 10/29/2023 7:21 AM EST Images from the original note were not included. [facility] H851/A INTERVAL HISTORY: The patient was seen and evaluated this morning at the bedside, was sitting comfortably, denies anyovernight events. All systems reviewed with the patient and negative. Discussed with the patient as he is afebrile hemodynamically stable, no concern of any ongoing infection. Discussed with the patient about the need to be evaluated for maybe possible underlying sleep apnea? Will give referral to the patient. Patient expressed understanding. Also reached out to Nephrology, if the echocardiogram is fine then maybe we would just need to adjust the patient's antihypertensive. Objective Physical Exam Most Recent Vital Signs: BP: 111 mmHg/57 mmHg (10/29/23634) Pulse: 90 (10/29/23634) Temp: 36.67 C (10/29/23634) Temp Summary: Temp Min: 36.6 C (97.9 F) Max: 37.5 C (99.5 F) SpO2: 93 % (10/29/23634) O2 flow rate: Supplemental O2 Delivery: Room Air, None (10/29/23716) Constitutional: no acute distress, (+) overweight HEENT: normal: normocephalic, atraumatic; no masses, tenderness, or adenopathy CV: normal rate and rhythm, no murmur, gallops or rub Chest: normal respiratory effort, lungs clear to auscultation and percussion Abdomen: normal: soft, bowel sounds normal, no masses, tenderness or organomegaly, peritoneal dialysis catheter in place, nontender non erythematous without any discharge Musculoskeletal: (-) negative Extremities: no clubbing, cyanosis, or edema, otherwise grossly normal, warm, and dry Skin: warm, dry: Neuro: alert, oriented to person, place, and time, normal mental status exam, reflexes normal and symmetric, sensory normal Psych: normal mood and affect, nonsuicidal, judgement normal, memory normal Peripheral Line Right Antecubital 20 Gauge (Active) Number of days: 1 Peritoneal Dialysis Catheter Mid;Right Abdomen (Active) Number of days: 69 STUDIES: Encounter Orders Labs and other studies reviewed with pertinent findings noted below: Labs: Recent Results (from the past 6 hour(s)) CBC Collection Time: 10/29/23 6:19 AM Result Value Ref Range WBC 15.46 (H) 4.00 - 10.80 K/uL RBC 3.28 4.50 - 5.25 M/uL HGB 9.8 (L) 14.0 - 16.8 g/dL HCT 29.1 (L) 40.0 - 48.4 % MCV 88.7 82.0 - 99.5 fL MCH 29.9 27.0 - 34.0 pg MCHC 33.7 32.0 - 36.0 g/dL RDW 13.9 11.5 - 15.5 % PLT 184 140 - 400 K/uL MPV 9.8 6.6 - 11.1 fL nRBCs 0 <=0 /100 WBCs COMPREHENSIVE METABOLIC PANEL Collection Time: 10/29/23 6:19 AM Result Value Ref Range BUN 74 (H) 6 - 20 mg/dL Creatinine 23.2 (H) 0.6 - 1.2 mg/dL Estimated Glomerular Filtration Rate 2 (L) >=60 mL/min Sodium 136 135 - 146 mmol/L Potassium 3.7 3.5 - 5.1 mmol/L Chloride 88 (L) 98 - 107 mmol/L CO2 18 (L) 22 - 32 mmol/L Anion Gap 30 (H) 7 - 15 mmol/L Glucose 111 70 - 120 mg/dL Albumin 4.0 3.8 - 5.0 g/dL AST 7 (L) 10 - 50 U/L Alkaline Phosphatase 70 35 - 130 U/L Bilirubin, Total 0.5 <=1.2 mg/dL Calcium 9.2 8.4 - 10.2 mg/dL Protein 7.4 6.0 - 8.3 g/dL ALT 14 10 - 50 U/L MAGNESIUM Collection Time: 10/29/23 6:19 AM Result Value Ref Range Magnesium 2.1 1.5 - 2.6 mg/dL PHOSPHORUS Collection Time: 10/29/23 6:19 AM Result Value Ref Range Phosphorus 13.9 (H) 2.5 - 4.8 mg/dL Imaging: XR CHEST 1 VIEW Final Result EXAM XR CHEST 1 VIEW-10/28/2023 1:45 pm HISTORY Sepsis COMPARISON CT chest 05/30/2020. Chest radiograph 03/24/2023. TECHNIQUE Front view of the chest examined. FINDINGS FOREIGN BODIES, SUPPORT TUBES, LINES, DEVICES: None. LUNGS, PLEURA: Low lung volumes. No consolidative opacities. No large pleural effusion. No discernible pneumothorax. CARDIOVASCULAR, MEDIASTINUM: The cardiomediastinal silhouette is normal in size and morphology. OTHER: None. IMPRESSION IMPRESSION Low lung volumes, otherwise no evidence of acute cardiopulmonary disease. I have personally reviewed this examination and agree with the resident/fellow physician's interpretation. US ABDOMEN LIMITED Final Result EXAM US ABDOMEN LIMITED-10/28/2023 1:38 pm HISTORY RUQ abdominal pain; concern for sepsis TECHNIQUE Sonogram of the right upper quadrant. COMPARISON CT abdomen/pelvis 11/03/2022. FINDINGS LIVER: Normal echogenicity. No focal lesion. BILE DUCTS: No intrahepatic or extrahepatic duct dilatation. The common bile duct measures 3 mm. GALLBLADDER: Increased gallbladder wall thickening. No pericholecystic fluid or shadowing gallstones. No sonographic Villafana's sign per phd internship's exam. PANCREAS: Visualized portions are unremarkable. RIGHT KIDNEY: Poorly visualized aside from 3.3 x 2.8 x 2.5 cm simple cyst. Increased renal cortical echogenicity suggestive of medical renal disease. OTHER: No ascites. IMPRESSION IMPRESSION Gallbladder wall thickening. No pericholecystic fluid, shadowing gallstones, or sonographic Villafana sign to further support acute cholecystitis.. I have personally reviewed this examination and agree with the resident/fellow physician's interpretation. Assessment and Plan IMPRESSION : Principal Problem: Sepsis (HCC) Active Problems: Granulomatosis with polyangiitis (HCC) Kidney replaced by transplant Hypertension Dyslipidemia, goal LDL below 160 Metabolic acidosis ESRD on peritoneal dialysis (HCC) Anemia of chronic renal failure, stage 5 (HCC) Dialysis-associated peritonitis (HCC) Resolved Problems: * No resolved hospital problems. * Orthostatic hypotension: Possibly secondary to volume depletion from dialysis vs Concern of possible adrenal insufficiency Concern of PD catheter related peritonitis?: ruled out --hypotensive/leukocytosis: Stable now Monitor on telemetry for now Status post 1 dose of vancomycin and Zosyn in the ED, will hold on to further antibiotics for now No concern of any ongoing infection, discontinued ID evaluation for now Follow-up echocardiogram Peritoneal fluid studies negative, preliminary cultures negative MRSA screen negative Monitor on telemetry Holding BOOKKEEPER ASSISTANT nifedipine and metoprolol for now Started Isolyte at 75 mL/hour for next 8 hours Follow-up repeat orthostatic vital signs after IV fluid administration Follow-up a.m. cortisol and cosyntropin stimulation test ESRD on peritoneal dialysis Metabolic acidosis History of cadaveric renal transplant on immunosuppressive therapy Immunocompromised status because of transplant status and on immunosuppressive Follow-up nephrology evaluation Daily BMP Continue with cyclosporine for now as per Nephrology As per patient his CellCept was stopped about 2 weeks ago by Nephrology Other chronic medical problems granulomatosis with polyangiitis status post cadaver renal transplant 1997 on mycophenolate and cyclosporine Gout primary essential hypertension secondary hyperparathyroidism seborrheic keratosis Continue with BOOKKEEPER ASSISTANT medications, no new recommendations Profound hypotension will result in a threat to life or bodily function if not treated PHARMACOLOGIC VTE PROPHYLAXIS: hEParin CODE STATUS: Full Code EXPECTED DISCHARGE DATE: No information available I spent a total of 62 minutes coordinating, documenting, and providing care for this patient excluding time spent in the performance of separately billed services. documented in this encounter H&P Notes * Radha Alonso MD - 10/28/2023 4:27 PM EST Images from the original note were not included. [facility] [place], [place] 24/X PRESENTING PROBLEM: Sepsis, concern of bacterial peritonitis HPI: 43 years old male known to have granulomatosis with polyangiitis status post cadaver renal transplant 1997 on mycophenolate and cyclosporine, immunocompromised status due to being on immunosuppressive therapy and post transplant, ESRD on peritoneal dialysis, gout, primary essential hypertension, secondary hyperparathyroidism, seborrheic keratosis, presented to the hospital for In the ED, the patient met the SIRS criteria, was hypotensive, sinus tachycardia, slightly tachypneic. Lab workup remarkable for neutrophilic leukocytosis, chronic normocytic anemia, anion gap acidosis, lactate 2. Chest x- ray without any acute pathology. Patient was evaluated by critical Medicine re commended admission on the floor. Patient was given 1 dose of vancomycin and Zosyn in the ED along with 500 mL fluid bolus. The patient on my examination was sitting comfortably, systolic blood pressure in 130s on telemetry. Awake alert oriented, stated that for past 3 days he noticed decreased blood pressure at home, Systolic blood pressure in 80s associated with blurring of the vision. Also endorsed 1 episode of nonbloody nonbilious emesis yesterday and 2 episodes of nonbloody nonbilious emesis today. Due to these symptoms he presented to the ED for further evaluation. Subjective Patient's past history, medications, and allergies were reviewed. Objective Physical Exam Most Recent Vital Signs: BP: 107 mmHg/48 mmHg (10/28/23 1542) Pulse: 101 (10/28/23 1530) Temp: 36.61 C (10/28/23 1300) Temp Summary: Temp Min: 36.6 C (97.9 F) Max: 37.5 C (99.5 F) SpO2: 100 % (10/28/23 1530) O2 flow rate: Supplemental O2 Delivery: Room Air, None (10/28/23 1400) Constitutional: no acute distress, (+) overweight HEENT: normal: normocephalic, atraumatic; no masses, tenderness, or adenopathy CV: normal rate and rhythm, no murmur, gallops or rub Chest: normal respiratory effort, lungs clear to auscultation and percussion Abdomen: normal: soft, bowel sounds normal, no masses, tenderness or organomegaly, peritoneal dialysis catheter in place, nontender non erythematous without any discharge Musculoskeletal: (-) negative Extremities: no clubbing, cyanosis, or edema, otherwise grossly normal, warm, and dry Skin: warm, dry: Neuro: alert, oriented to person, place, and time, normal mental status exam, reflexes normal and symmetric, sensory normal Psych: normal mood and affect, nonsuicidal, judgement normal, memory normal Peripheral Line Right Antecubital 20 Gauge (Active) Number of days: 0 STUDIES: Encounter Orders Labs and other studies reviewed with pertinent findings noted below: Labs: Recent Results (from the past 6 hour(s)) COMPREHENSIVE METABOLIC PANEL Collection Time: 10/28/23 1:01 PM Result Value Ref Range BUN 62 (H) 6 - 20 mg/dL Creatinine 23.2 (H) 0.6 - 1.2 mg/dL Estimated Glomerular Filtration Rate 2 (L) >=60 mL/min Sodium 135 135 - 146 mmol/L Potassium 3.7 3.5 - 5.1 mmol/L Chloride 88 (L) 98 - 107 mmol/L CO2 17 (L) 22 - 32 mmol/L Anion Gap 30 (H) 7 - 15 mmol/L Glucose 104 70 - 120 mg/dL Albumin 4.8 3.8 - 5.0 g/dL AST 7 (L) 10 - 50 U/L Alkaline Phosphatase 79 35 - 130 U/L Bilirubin, Total 0.4 <=1.2 mg/dL Calcium 9.8 8.4 - 10.2 mg/dL Protein 8.5 (H) 6.0 - 8.3 g/dL ALT 14 10 - 50 U/L PROCALCITONIN Collection Time: 10/28/23 1:01 PM Result Value Ref Range Procalcitonin 2.68 (H) <0.10 ng/mL TROPONIN T, HIGH SENSITIVITY Collection Time: 10/28/23 1:01 PM Result Value Ref Range Troponin T, High Sensitivity 71 (H) <=22 ng/L CBC Collection Time: 10/28/23 1:01 PM Result Value Ref Range WBC 19.22 (H) 4.00 - 10.80 K/uL RBC 3.76 4.50 - 5.25 M/uL HGB 11.4 (L) 14.0 - 16.8 g/dL HCT 33.4 (L) 40.0 - 48.4 % MCV 88.8 82.0 - 99.5 fL MCH 30.3 27.0 - 34.0 pg MCHC 34.1 32.0 - 36.0 g/dL RDW 13.7 11.5 - 15.5 % PLT 222 140 - 400 K/uL MPV 10.1 6.6 - 11.1 fL nRBCs 0 <=0 /100 WBCs DIFFERENTIAL, AUTOMATED Collection Time: 10/28/23 1:01 PM Result Value Ref Range WBC 19.22 (H) 4.00 - 10.80 K/uL Neutrophils % 77.2 (H) 40.0 - 75.0 % Lymphocytes % 10.8 (L) 18.0 - 42.0 % Monocytes % 10.7 1.0 - 11.0 % Eosinophils % 0.3 0.0 - 6.0 % Basophils % 0.3 0.0 - 2.0 % Immature Granulocytes % 0.7 0.0 - 2.0 % Absolute Neutrophils 14.82 (H) 1.80 - 7.70 K/uL Absolute Lymphocytes 2.08 1.00 - 4.80 K/ul Absolute Monocytes 2.06 (H) 0.00 - 1.10 K/uL Absolute Eosinophils 0.06 0.00 - 0.70 K/uL Absolute Basophils 0.06 0.00 - 0.20 K/uL Absolute Immature Granulocytes 0.14 0.00 - 0.20 K/uL LACTATE, WHOLE BLOOD WITH REFLEX IF ABNORMAL Collection Time: 10/28/23 1:17 PM Result Value Ref Range Lactate, Whole Blood 2.0 0.4 - 2.0 mmol/L PT INR Collection Time: 10/28/23 1:17 PM Result Value Ref Range Prothrombin Time 16.2 (H) 11.6 - 15.2 seconds INR 1.3 (H) 0.8 - 1.2 APTT Collection Time: 10/28/23 1:17 PM Result Value Ref Range aPTT 38 21 - 38 seconds BLOOD GAS, VENOUS Collection Time: 10/28/23 1:17 PM Result Value Ref Range Temperature 37.0 C pH, Venous 7.248 (L) 7.320 - 7.430 units pCO2, Venous 48.7 40.0 - 60.0 mmHg pO2, Venous 25.8 25.0 - 50.0 mmHg Base Excess, Venous -6.3 (L) -2.0 - 2.0 mmol/L Hemoglobin, Whole Blood 11.3 (L) 14.0 - 16.8 g/dL Oxyhemoglobin, Venous 29.5 (L) 40.0 - 85.0 % total Hgb Carboxyhemoglobin, Whole Blood 0.8 <=1.5 % total Hgb Methemoglobin, Whole Blood 0.8 <=1.5 % total Hgb Reduced Hemoglobin, Venous 68.9 % total Hgb O2 Content, Venous 4.7 (L) 7.0 - 18.0 %vol Bicarbonate, Whole Blood 20.5 (L) 23.0 - 31.0 mmol/L TROPONIN T, HIGH SENSITIVITY Collection Time: 10/28/23 3:15 PM Result Value Ref Range Troponin T, High Sensitivity 70 (H) <=22 ng/L Imaging: XR CHEST 1 VIEW Final Result EXAM XR CHEST 1 VIEW-10/28/2023 1:45 pm HISTORY Sepsis COMPARISON CT chest 05/30/2020. Chest radiograph 03/24/2023. TECHNIQUE Front view of the chest examined. FINDINGS FOREIGN BODIES, SUPPORT TUBES, LINES, DEVICES: None. LUNGS, PLEURA: Low lung volumes. No consolidative opacities. No large pleural effusion. No discernible pneumothorax. CARDIOVASCULAR, MEDIASTINUM: The cardiomediastinal silhouette is normal in size and morphology. OTHER: None. IMPRESSION IMPRESSION Low lung volumes, otherwise no evidence of acute cardiopulmonary disease. I have personally reviewed this examination and agree with the resident/fellow physician's interpretation. US ABDOMEN LIMITED Final Result EXAM US ABDOMEN LIMITED-10/28/2023 1:38 pm HISTORY RUQ abdominal pain; concern for sepsis TECHNIQUE Sonogram of the right upper quadrant. COMPARISON CT abdomen/pelvis 11/03/2022. FINDINGS LIVER: Normal echogenicity. No focal lesion. BILE DUCTS: No intrahepatic or extrahepatic duct dilatation. The common bile duct measures 3 mm. GALLBLADDER: Increased gallbladder wall thickening. No pericholecystic fluid or shadowing gallstones. No sonographic Villafana's sign per phd internship's exam. PANCREAS: Visualized portions are unremarkable. RIGHT KIDNEY: Poorly visualized aside from 3.3 x 2.8 x 2.5 cm simple cyst. Increased renal cortical echogenicity suggestive of medical renal disease. OTHER: No ascites. IMPRESSION IMPRESSION Gallbladder wall thickening. No pericholecystic fluid, shadowing gallstones, or sonographic Villafana sign to further support acute cholecystitis.. I have personally reviewed this examination and agree with the resident/fellow physician's interpretation. Assessment and Plan IMPRESSION: Active Problems: Granulomatosis with polyangiitis (HCC) Kidney replaced by transplant Hypertension Dyslipidemia, goal LDL below 160 High anion gap metabolic acidosis ESRD on peritoneal dialysis (HCC) Anemia of chronic renal failure, stage 5 (HCC) Resolved Problems: * No resolved hospital problems. * Septic on admission: Possibly bacterial peritonitis? : Resolved Concern of PD catheter related peritonitis? Monitor on telemetry for now Status post 1 dose of vancomycin and Zosyn in the ED, will hold on to further antibiotics for now, also clarified with Nephrology, suggested might likely need intraperitoneal antibiotics for the nextdosage they will let us know if anything needs to be ordered Follow-up nephrology evaluation Follow-up MRSA screen Follow with the peritoneal fluid studies Follow up the ID recommendations Monitor on telemetry Holding BOOKKEEPER ASSISTANT nifedipine and metoprolol for now Addendum: Discussed with Nephrology attending myself, as patient already received 1 time vanco and Zosyn in the ED, to hold further until evaluated by ID and Nephrology tomorrow ESRD on peritoneal dialysis Metabolic acidosis History of cadaveric renal transplant on immunosuppressive therapy Immunocompromised status because of transplant status and on immunosuppressive Follow-up nephrology evaluation Daily BMP Continue with cyclosporine for now as per Nephrology As per patient his CellCept was stopped about 2 weeks ago by Nephrology Started oral bicarbonate for now, will avoid further IV fluids as patient currently hemodynamicallystable and unclear when he will get the next dialysis Other chronic medical problems granulomatosis with polyangiitis status post cadaver renal transplant 1997 on mycophenolate and cyclosporine Gout primary essential hypertension secondary hyperparathyroidism seborrheic keratosis Continue with BOOKKEEPER ASSISTANT medications, no new recommendations Sepsis will result in a threat to life or bodily function if not treated I discussed patient with Nephrology about peritonitis and suggested to wait for the cultures and they will let us know about further antibiotics PHARMACOLOGIC VTE PROPHYLAXIS:This patient does not have an active medication from one of the medication groupers. CODE STATUS: Prior EXPECTED DISCHARGE DATE: No information available I spent a total of 75 minutes coordinating, documenting, and providing care for this patient excluding time spent in the performance of separately billed services. documented in this encounter Consult Notes * Nilsa Richard MD - 10/28/2023 1:54 PM ESTAssociated Order(s): NEPHROLOGY CONSULT IP CONSULT - Nephrology [facility] [place], [place]-[address] [id number] Name: Chandan Donato Location: [facility] [place], [place] H851/A Date: 10/28/2023 Time: 8:03 PM REQUESTING SERVICE: ED REASON FOR CONSULT: Suspected peritonitis HPI: 43 year old Male - GPA vasculitis with ESRD S/P DDKT 1997, ultimately failed , started on HD Shifted to PD early this year Kept on cyclosporine to decrease sensitization for anticipated 2nd transplant, MMF was stopped - Presented with dizziness/hypotension Nausea/vomiting/poor intake in last 3 days Deny fever/chills/rigor, no abdominal pain His weight dropped 12 lbs in 1 week Gradually held all of his anti-HTN, decrease concentration of dialysate His machine was stopped today because nothing was draining He's feeling dry without bloating/distention in his belly Moving bowel twice daily including today PAST MEDICAL HISTORY: 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 ? thrombosis R subclavian INSERT TEMPORARY ABDOMINAL DRAIN PD catheter insertion INTRAPERITONEAL CATH REMOVAL PD catheter removal INTRO CATH DIALYSIS CIRCUIT W/TRANSLUM BALLOON ANGIOPLASTY Left 05/22/2023 AV FISTULOGRAM & PERIPHERAL ANGIOPLASTY performed by Ren Rhodes MD at OR [facility] [place] [place] IR VENOUS ACCESS NON-MEDIPORT 03/13/2023 IR VENOUS ACCESS NON-MEDIPORT 10/02/2023 LAPAROSCOPY, W/ INSERT INTRAPERITONEAL CATH N/A 08/21/2023 LAPAROSCOPIC INSERTION INTRAPERITONEAL CANNULA OR CATHETER performed by Lawson Steinberg MD at [facility] RENAL BIOPSY, PERCUTANEOUS (TROCAR/NEEDLE) Renal biopsy ([place]) TRANSPLANTATION OF KIDNEY Cadaver renal transplant ALLERGIES: Patient has no known allergies. FAMILY HISTORY: Family History Problem Relation Age of Onset Hypertension Mother not taking medicine Allergies Father No Known Problems Sister Cancer Grandfather (Maternal) Eye Problems Grandfather (Maternal) cataracts removed Cancer Grandmother (Paternal) Diabetes Grandmother (Paternal) Glaucoma Grandmother (Paternal) cataracts SOCIAL HISTORY: Social History Tobacco Use Smoking status: Never Passive exposure: Never Smokeless tobacco: Never Vaping Use Vaping Use: Never used Substance Use Topics Alcohol use: No Drug use: No ROS: Denies any other symptoms, all other ROS are negative. PHYSICAL EXAMINATION: Vital Signs Last 24 Hours: Systolic BP: Most Recent Systolic BP Av.6 mmHg Min: 68 mmHg Max: 176 mmHg Temperature: Most Recent Temperature Av.1 C Min: 36.61 C Max: 37.5 C Pulse: Pulse Av Min: 95 Max: 120 Respirations: Resp Av.2 Min: 10 Max: 30 SpO2: SpO2 Av % Min: 90 % Max: 100 % Patient is laying in his bed, looks tired but not in acute distress, obese HEENT; No pallor conjunctiva or yellowish sclera, JVP not distended Dry mucosal membranes Lung; bilateral breath sounds, no added sounds Pericardium; RRR, normal S1, S2. No murmurs Abdomen; soft, non tender, not distended PD cath in situ, no tenderness over tunnel, clean exit site MSK; No LL edema, no skin rashes Neuro; conscious alert oriented, no focal deficit LABS: Latest Reference Range & Units 10/27/23 15:14 10/28/23 13:01 10/28/23 13:17 10/28/23 16:25 pH, Venous 7.320 - 7.430 units 7.248 (L) pCO2, Venous 40.0 - 60.0 mmHg 48.7 pO2, Venous 25.0 - 50.0 mmHg 25.8 Clarity, Fluid Clear Clear Color, Fluid Straw, Yellow, Colorless Colorless Total Nucleated Cell Count, Fluid <85 cells/uL 79 Sodium 135 - 146 mmol/L 137 135 Potassium 3.5 - 5.1 mmol/L 3.4 (L) 3.7 Chloride 98 - 107 mmol/L 89 (L) 88 (L) CO2 22 - 32 mmol/L 20 (L) 17 (L) BUN 6 - 20 mg/dL 59 (H) 62 (H) Creatinine 0.6 - 1.2 mg/dL 22.6 (H) 23.2 (H) Anion Gap 7 - 15 mmol/L 28 (H) 30 (H) Glucose 70 - 120 mg/dL 121 (H) 104 Calcium 8.4 - 10.2 mg/dL 10.0 9.8 Phosphorus 2.5 - 4.8 mg/dL 10.3 (H) Lactate, Whole Blood 0.4 - 2.0 mmol/L 2.0 INR 0.8 - 1.2 1.3 (H) Prothrombin Time 11.6 - 15.2 seconds 16.2 (H) WBC 4.00 - 10.80 K/uL 16.32 (H) 19.22 (H) HGB 14.0 - 16.8 g/dL 12.5 (L) 11.4 (L) PLT 140 - 400 K/uL 261 222 Absolute Neutrophils 1.80 - 7.70 K/uL 14.82 (H) Albumin 3.8 - 5.0 g/dL 5.1 (H) 4.8 AST 10 - 50 U/L 7 (L) ALT 10 - 50 U/L 14 Alkaline Phosphatase 35 - 130 U/L 79 Bilirubin, Total <=1.2 mg/dL 0.4 IMAGING: Reviewed Abdominal US ruled out cholecystitis IMPRESSION: ESRD on PD presenting with oral intolerance and hypovolemia - PD peritenonitis ruled out - No surgical cause for current GI symptoms, possibly gastritis? Acid/Base; Mixed Acidosis pH 7.24, HCO3 17. AG 30, PCO2 48 Normal lactate. Albumin 5.1 Electrolyte; Normal Na, borderline HypoK Uremia; BUN 62, no encephalopathy Volume; Hypovolemic BP; Borderline low MBD; HyperPhos. On Calcimimetics and Phos binders PLAN: - Will proceed with additional cycle today, tomorrow will place on 2 long dwells cycle - Can be started on IV fluids - Please send for ABG/serum osmolarity/renal function panel at same time No need for NaHCO3 at the moment in view of hypercapnia Likely to benefit from BiPAP due to underlying OHS - No need for antibiotics Patient was seen and examined, discussed with Dr Salazar Plan of care explained to the patient, he showed comprehension and agreement Discussed with primary team including on-call Nilas Richard MD Nephrology Fellow Associated attestation - Chandan Salazar DO - 10/28/2023 8:51 PM EST I saw and evaluated the patient today. I have reviewed the trainee note and agree with the plan. Data review: CMP: diminished CO2 noted. PTH: severe elevation noted. CBC: HgB at goal for ESRD On exam soft abdomen, non-tender. Clean PD cath exit site. CXR image personally viewed: pulm vasculature within reasonable limits. Admit to hospitalist service for further monitoring and infectious workup. PD fluid studies not consistent with peritonitis. Check TTE to look for evidence of effusion contributing to low BP. Hold antihypertensives. Case discussed with Dr. Garcia of [facility] and Dr. Lopez, primary technical solutions consultant. documented in this encounter Nursing Notes * Laurel Nguyen RN - 10/30/2023 1:35 PM EST [employer] Programming Note Name of Programming Foot Setter: Laurel Weeks RN Programmed Cycler: Yes Tag # of Cycler: [id number] Total number of Cycles: 4 Concentration verified with physician order: Yes Exchange Volume: 2500 ml Dwell Time Per Cycle: 1 hr and 58 min Last Fill Volume: 0 Last Fill Dwell Time: NA Mid-Day Drain: No Communication made to assigned PD unit/nurse: Yes via TT ([facility] [place], [place] Inpatient PD Nurse Lori Whitt) Additional Comments: Instructions posted not to turn off or unplug cycler Remote Cycler: No , Activation Code: No , Code: NA Laurel Weeks RN 10/30/23 1:35 PM * Rossy Jimenes RN - 10/28/2023 6:41 PM EST Dual Licensed Skin Assessment completed by Yeison and Claudia Luna. The patient is/has a N/A Skin Breakdown (includes non blanchable erythema): No documented in this encounter ED Notes * Dayron Ross MD - 10/28/2023 3:43 PM EST HISTORY OF PRESENT ILLNESS Chandan L Arner is a 43 year old male who presents to the ED for evaluation of Hypotension and Vomiting. The patient was seen at 10/28/23 1228. 43-year-old male with a past medical history of end-stagerenal disease on peritoneal dialysis, anemia, and hypertension presents the emergency department for evaluation of vomiting and hypotension. The patient states for the last 2-3 days he has not felt well. The patient has had 2 episodes of vomiting. With each episode of vomiting he passed out. Patient also notes that he has been hypotensive at home as well. The patient's blood pressures has been inthe 70s and 80s. Patient's blood pressure normalized in the 130s. Patient states he has been talking with his technical solutions consultant. The technical solutions consultant is concerned about possible infection. They are concerned about possible SBP. They recommend he come in for evaluation. The patient most recently had peritoneal dialysis last night. Patient denies any fevers, chills, chest pain,Shortness of breath, diarrhea. The patient's allergies, past history, and medications were reviewed. PHYSICAL EXAM Initial Vitals (see all): BP 79/46 | Pulse 120 | Resp 20 | Temp 99.5 | O2 98 %, Room Air, None | Weight 127.01 kg | Height 177.8 cm | BMI 40.18 kg/m2 Initial Pain Assessment (see all): 0 (no pain)/10 ([facility] Adult Scale 0-10) Physical Exam Constitutional: General: He is not in acute distress. Appearance: He is well-developed. He is obese. He is ill-appearing. HENT: Head: Normocephalic and atraumatic. Nose: Nose normal. Eyes: General: Right eye: No discharge. Left eye: No discharge. Conjunctiva/sclera: Conjunctivae normal. Cardiovascular: Rate and Rhythm: Normal rate and regular rhythm. Pulses: Normal pulses. Heart sounds: No murmur heard. No friction rub. No gallop. Pulmonary: Effort: Pulmonary effort is normal. No respiratory distress. Breath sounds: No wheezing, rhonchi or rales. Abdominal: General: There is distension. Palpations: Abdomen is soft. Tenderness: There is abdominal tenderness (Right upper quadrant). There is no guarding. Comments: Peritoneal dialysis catheter noted Musculoskeletal: General: Normal range of motion. Cervical back: Normal range of motion. Skin: General: Skin is warm and dry. Neurological: Mental Status: He is alert and oriented to person, place, and time. Psychiatric: Mood and Affect: Mood normal. Behavior: Behavior normal. Thought Content: Thought content normal. Judgment: Judgment normal. PROCEDURES AND TREATMENTS ED Orders | ED Results MEDICAL DECISION MAKING Nursing notes and vital signs were reviewed. ED Course as of 10/28/23 1548 Sat Oct 28, 2023 1330 Blood Gas, Venous(!) Metabolic acidosis. Anemia. Otherwise unremarkable [TU] 1330 Lactate, Whole Blood with Reflex if Abnormal Grossly unremarkable [TU] 1337 PT INR(!) Mildly elevated INR PT [TU] 1337 CBC with WBC Differential(!) Leukocytosis. Anemia. Mildly elevated absolute neutrophil count [TU] 1338 aPTT Grossly unremarkable [TU] 1422 Procalcitonin(!) Elevated procalcitonin [TU] 1423 Comprehensive Metabolic Panel(!) Elevated creatinine BUN. The patient does receive peritoneal dialysis [TU] 1423 Troponin T, High Sensitivity(!) Elevated. Will repeat [TU] ED Course User Index [TU] Uriel Beal, DO Differential Diagnoses Based on my history, physical exam, and evaluation, the differential includes, but is not limited, to the following diagnoses: Sepsis, SBP, pneumonia, cholecystitis, gastroenteritis. 43-year-old male with a past medical history of end-stage renal disease on peritoneal dialysis, anemia, and hypertension presents the emergency department for evaluation of vomiting and hypotension. On initial exam, the patient is tachycardic and hypotensive. Physical exam is as noted above. Lab work is reviewed above ED course. Of note, patient has leukocytosis, elevated procalcitonin, elevated creatinine, elevated BUN. Blood cultures were obtained. Peritoneal dialysis nurse came down to get a sample for peritoneal fluid sample for possible SBP. A right upper quadrant ultrasound did not show evidence of acute cholecystitis. My interpretation of chest x-ray is no acute cardiopulmonary findings. My interpretation was compared to the interpretation of the radiologist. The patient was given IV fluids with improvement in heart rate and blood pressure. The patient was given broad-spectrum IV antibiotics. Reviewed the lab and imaging findings with the patient. Informed the patient that we suspect bacterial infection of unknown origin at this time. We are concerned for possible SBP. Informed the patient we would recommend admission at this time. The patient was agreeable to admission. The patient was admitted for further management of sepsis of unknown origin. Amount and/or Complexity of Data Reviewed Labs: ordered. Decision-making details documented in ED Course. Radiology: ordered. ECG/medicine tests: ordered. Risk Prescription drug management. Decision regarding hospitalization. Clinical Impressions Sepsis (HCC) Leukocytosis, unspecified type Abdominal pain, right upper quadrant Nausea and vomiting, unspecified vomiting type Disposition Admitted. I discussed the management of this patient with the admitting provider and I made a decision to admit the patient. Admission Order Ordered Status . 10/28/23 1544 Admit for Inpatient Services (incl ZPO) ONCE Acknowledged Dayron Ross was the attending physician who supervised the care of this patient. Uriel Beal, ATTENDING ATTESTATION I have seen and examined this patient on the 10/28/2023 visit. I have discussed the patient's management with the provider listed above and agree with the note, findings, and plan of care. Critical Care Time: I personally provided 32 minutes of critical care for this patient. Critical care time was exclusive of separately billable procedures, treating other patients, and teaching. The patient had a high probability of sudden, clinically significant, life-threatening deterioration. Critical care was necessary to treat or prevent imminent or life-threatening deterioration of the following conditions: septic shock. Critical care was time spent personally by me on the following activities: evaluation ofpatient's response to treatment, discussions with consultants and development of treatment plan. documented in this encounter Miscellaneous Notes * Diagnostic Clarification - Radha Alonso MD - 10/31/2023 10:45 AM EST After study, sepsis w/ septic shock has been ruled out. * Ancillary Progress Note - Carmen Veronica RN - 10/31/2023 9:24 AM EST CARE MANAGEMENT - ADULT DISCHARGE NOTE [facility] [place], [place]-[address] [address] Name: Chandan Donato Location: [facility] [place] [place] H851/A Date: 10/31/2023 Time: 9:24 AM The following coordination of care and discharge plan has been coordinated with the care team, patient, family and/or caregiver according to the patients needs and preferences. Discharge Discharge Second Notice Important Message from Medicare delivered: Not Applicable (10/31/23923) Was Caregiver/Family/Facility contacted regarding discharge: Yes (10/31/23923) Discharge Transportation: Family/Friends drive;Patient drives self (10/31/23923) Patient declined post-hospital transition of care recommendation: N/A (10/31/23923) Final Discharge Plan (Complete only at time of Discharge): Home - Self Care (10/31/23923) Narrative: Patient discussed during IDT rounds, chart reviewed. Patient is medically ready for discharge on this date. Patient has no new discharge needs identified. 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 He is active with [email or web address]. Family will provide transportationto home. Please contact CM with any questions or concerns. * Ancillary Progress Note - Carmen Veronica RN - 10/31/2023 9:20 AM EST CARE MANAGEMENT - ADULT INITIAL SCREENING [address] [address] Name: Chandan Donato Location: [facility] [place] [place] H851/A Date: 10/31/2023 Time: 9:21 AM Discussed patient with the interdisciplinary care team. This Animal Scientist performed a chart review and met with Chandan at bedside to complete admission screen and assessed needs for transition planning. The healthcare management consultant role and services were explained and emotional support was provided. Chief Complaint: Hypotension and Vomiting Prior Living Arrangements What was your living situation prior to admission/observation?: Independently;With Parent () Living Quarters: House (10/31/23917) Number of steps to enter living quarters:: 0 (10/31/23917) History of falling: Yes (10/31/23721) Prior Level of Functioning Describe the patient's ability prior to admission/observation to perform ADLs: Performs independently (10/31/23917) Describe the patient's mobility status prior to admission: Patient ambulates independently (10/31/23917) Patient uses assistive device: No (10/31/23917) Caregiver Information Patient Contacts Name Relation Home Work Mobile Angela Donato Mother [phone] Hong Donato Father [phone] Risk Stratification/Psychosocial/Care Gaps Risk Stratification Psycho Social / Medical Concerns Identified: Adjustment to illness/injury;Multiple Comorbidities (10/31/23917) Readmission Risk Score: 19.66 (10/31/23800) AM-PAC Score With Stairs : 24 (10/31/23912) Prior to Admission Services Services Prior to Admission BOOKKEEPER ASSISTANT Services (Services received within the last 30 days with exception, Psych within last two years): Dialysis (10/31/23917) List All Provider/Service Name: home PD - provided by [email or web address] (10/31/23917) Agency contacted: No (10/31/23917) [place] Dept. of Aging (PDA) Waiver Program: N/A (10/31/23917) BOOKKEEPER ASSISTANT Transportation (Services received within the last 30 days): Patient drives self;Family/Friends Personal Vehicle (10/31/23917) Outpatient Animal Scientist: Patient Care Team: Soila Coppola RN as Automotive Parts Counterperson (long at Home) Patient/Family Expectations: CM met with patient at the bedside to discuss discharge planning. Patient is from home with his parents. They live in a 2 story home with 0 ERICA. 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 He uses [facility] in [place] and denied difficulty obtaining medications. He has a home PD machine supplied through [email or web address] that he manages completely on his own. He isactive with [facility]. He denied prior HH, IRF or SNF services. He states that he will have transportation home once medically ready. He denied additional discharge needs at this time. For further screening information, please refer to the Care Management flow document. * Care Plan - Jesus Diop RN - 10/31/2023 2:02 AM EST Clinical Goal(s): Pt will remain free of hypotension this shift (10/30/23 2300) Possible barriers to meeting goal(s)/advancing plan of care: acuity Stability of the patient: Moderately stable - low risk of patient condition declining or worsening Summary regarding today's goal(s): Met: Recommendations: Continue to monitor for worsening symptoms and sign of clinical decline * Ancillary Progress Note - Jose Avelar RDN - 10/30/2023 2:19 PM EST CLINICAL NUTRITION ADULT RISK ASSESSMENT [address] [address] Name: Chandan Donato Location: [facility] [place] [place] H851/A Date: 10/30/2023 Time: 2:19 PM How patient was identified (select 2): Medical record number and Name Chandan Donato is a 43 year old male being assessed for clinical nutrition risk related to dialysis Primary diagnosis: for evaluation of Hypotension and Vomiting Other pertinent information: Patient is seen at bedside. Reports that he has been having good appetite and eating well. Not drinking any supplements. Following low sodium diet. Denies N/V and abdominal discomfort. Last BM was yesterday. Anthropometrics Measurements Admission weight (for dietitians): 120.566 kg (265 lb 12.8 oz) Height: 177.8 cm (5' 10") (10/28/23 181) Weight: 121.5 kg (267 lb 14.4 oz) (10/30/23 0607) BMI: 38.14 (10/28/231809) Usual Body Weight or EDW for Dialysis Patients: 118 kg per pt Diet: Renal Dialysis Adult Other: heart healthy Previously followed diet: renal Food Allergies/Intolerances: None Pertinent medications/vitamins/minerals/supplements: Phoslo 2001 mg, colace, folic acid, renal vitamins RISK FACTORS: Adult Energy Intake: No significant decrease Interpretation of Weight Change: Change likely secondary to fluid Skin: Intact NUTRITION RISK CATEGORY: Dialysis Risk: BMI less than 23 -no Pre-dialysis serum albumin less than 3.5 gm/dl for HD or less than 3.3 gm/dl for PD- Latest Reference Range & Units 10/30/23 05:50 Albumin 3.8 - 5.0 g/dL 4.0 NUTRITION RISK CATEGORY: Low/Moderate (0-1 factors) Clinical Nutrition Recommendations: Diet: Continue current nutrition plan NUTRITION INTERVENTION/PLAN: Continue current care plan Will follow and adjust nutritional plan as medical condition requires. Please contact for change(s)in patient condition requiring earlier intervention. 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 His transplant failed 03/03, and he was started on peritoneal dialysis. He was admitted for sepsis and possible peritonitis. Labs were borderline for an appropriate stress response for cortisol. Stim test responded. BP 117/70 | Pulse 92 | Temp 36.6 C (97.9 F) (Oral) | Resp 17 | Ht 1.778 m (5' 10") | Wt 121.5 kg (267 lb 14.4 oz) | SpO2 94% | BMI 38.44 kg/m | BSA 2.45 m Component Latest Ref Rng 10/29/2023 8:06 AM 10/29/2023 1:55 PM 10/29/2023 3:08 PM 10/29/2023 3:38 PM Cortisol 2.5 - 19.5 ug/dL 13.9 15.9 33.0 (H) 35.2 (H) Recommendations: Overall, I do not suspect adrenal insufficiency His cortisol level is indeterminate, but he may have CBG issues with his chronic renal disease and presentation with sepsis. We could check a free cortisol, but that will take weeks to return After his sepsis has been stabilized, he is stable on no steroids Can check a DHEA-s which I suspect will be normal, as his adrenal function is likely normal. Orders not written TT with questions Time spent: 30 minutes * Care Plan - Wendy August RN - 10/29/2023 7:15 PM EST Clinical Goal(s): pt will remain free from pain (10/29/23 0716) Possible barriers to meeting goal(s)/advancing plan of care: disease process Stability of the patient: Moderately stable - low risk of patient condition declining or worsening Summary regarding today's goal(s): Met: pt was free of pain today Recommendations: continue to encourage open communication * Care Plan - Wendy August RN - 10/28/2023 7:26 PM EST Pt will be free of falls Possible barriers to meeting goal(s)/advancing plan of care: impaired mobility Stability of the patient: Moderately stable - low risk of patient condition declining or worsening Summary regarding today's goal(s): Met: pt did not fall Recommendations: continue to follow fall precautions * ED Public Relations Director Note - Stephy Cleveland RN - 10/28/2023 5:11 PM EST Patient given turkey sandwich and soda * Communication - Stepyh Cleveland RN - 10/28/2023 4:24 PM EST Hand-Off - Nurse Communication Note Name: Chandan Donato Location: Date: 10/28/2023 Time: 4:24 PM Sending to: H851A Safety Concerns: None Allergies: Patient has no known allergies. Code Status: Prior Isolation: None Isolation flowsheet: Special Needs: Special Needs comments: Attention to: Rossy Jimenes Report from: Stephy Cleveland RN Phone extension: [phone] Patient arriving via: Stretcher Reason for SBAR handoff: Admission Situation/Background Chandan Donato is a 43 year old male who presents to the ED for evaluation of Hypotension and Vomiting. The patient was seen at 10/28/23 1228. 43-year-old male with a past medical history of end-stagerenal disease on peritoneal dialysis, anemia, and hypertension presents the emergency department for evaluation of vomiting and hypotension. The patient states for the last 2-3 days he has not felt well. The patient has had 2 episodes of vomiting. With each episode of vomiting he passed out. Patient also notes that he has been hypotensive at home as well. The patient's blood pressures has been inthe 70s and 80s. Patient's blood pressure normalized in the 130s. Patient states he has been talking with his technical solutions consultant. The technical solutions consultant is concerned about possible infection. They are concerned about possible SBP. They recommend he come in for evaluation. The patient most recently had peritoneal dialysis last night. Patient denies any fevers, chills, chest pain,Shortness of breath, diarrhea. Lab work is reviewed above ED course. Of note, patient has leukocytosis, elevated procalcitonin, elevated creatinine, elevated BUN. Blood cultures were obtained. Peritoneal dialysis nurse came down to get a sample for peritoneal fluid sample for possible SBP. A right upper quadrant ultrasound did not show evidence of acute cholecystitis. My interpretation of chest x-ray is no acute cardiopulmonary findings. My interpretation was compared to the interpretation of the radiologist. Admission date: 10/28/2023 Patient Service: Med K [[id number]] Attending Provider: Radha Alonso MD Admitting diagnosis: Sepsis (HCC) Chief Complaint: Hypotension and Vomiting Problem list: Active Problems: * No active hospital problems. * Resolved Problems: * No resolved hospital problems. * Level of Care: Med Surg [3] Assessment Vital Signs: BP: 107/48 (10/28/23 1542) Temp: 36.6 C (97.9 F) (02/17/24 1300) Pulse: 101 (10/28/23 1530) Resp: 17 (10/28/23 1530) SpO2: 100 % (10/28/23 1530) Weight: 127 kg (280 lb) (10/28/23 1224) Height: 177.8 cm (5' 10") (10/28/23 1224) Fall Scale: Fall Score: 45 (10/28/23 1300) Fall Interventions: Bed at low level;Floor free of clutter;Non-skid foot covering on (10/28/23 1300) Neurological: Kaye Coma Scale Eyes Open: Spontaneous (10/28/23 1300) Best Verbal Response: Verbally appropriate for age (10/28/23 1300) Best Motor Response: Obeys commands appropriate for age (10/28/23 1300) Coma Score: 15 (10/28/23 1300) Additional Neurological Information: Respiratory: Respiratory WNL: WNL- within normal limits (10/28/23 1300) Oxygen therapy/ Mechanical vent Supplemental O2 Delivery: Room Air, None (10/28/23 1400) Additional Respiratory Information: Cardiac: Rhythm: ST (10/28/23 1300) Extremities: +Sensation;Warm (10/28/23 1300) Pulses Right: Dorsalis Pedis +;Post Tibial +;Radial + (10/28/23 1300) Pulses Left: Dorsalis Pedis +;Post Tibial +;Radial + (10/28/23 1300) Capillary Refill: 3 sec (10/28/23 1300) Additional Cardiac Information: GI/: Abdomen: Soft;Non-distended;Non-tender (10/28/23 1300) Bowel Sounds: Present (10/28/23 1300) Additional GI/ Information: nausea, improved with Zofran Anuric, peritoneal dialysis patient Integumentary: Skin Description: Dry;Warm (10/28/23 1300) Skin Color: Flesh Tone;Mucus Membranes [place] (10/28/23 1300) Additional Integumentary Information: Restraints: No orders of the defined types were placed in this encounter. Lines: Peripheral Line Right Antecubital 20 Gauge (Active) Status Capped/Locked;Flushes easily 10/28/23 1300 Tubing Changed Yes 10/28/23 1300 Phlebitis Scale 0 10/28/23 1300 Infiltration Scale 0 02/17/24 1300 Site Description (Other) Without redness, swelling or drainage 10/28/23 1300 Site Intervention Flushed 10/28/23 1300 Dressing Assessment Dressing clean, dry, and intact 10/28/23 1300 Dressing Intervention None required 10/28/23 1300 Number of days: 0 Dialysis Catheter Double Lumen Right Subclavian (Active) Number of days: 229 Hemodialysis Arteriovenous Fistula Left Forearm (Active) Number of days: 249 Peritoneal Dialysis Catheter Mid;Right Abdomen (Active) Number of days: 68 Labs: Labs This Encounter COMPREHENSIVE METABOLIC PANEL - Abnormal; Notable for the following components: Result Value Ref Range BUN 62 6 - 20 mg/dL Creatinine 23.2 0.6 - 1.2 mg/dL Estimated Glomerular Filtration Rate 2 >=60 mL/min Chloride 88 98 - 107 mmol/L CO2 17 22 - 32 mmol/L Anion Gap 30 7 - 15 mmol/L AST 7 10 - 50 U/L Protein 8.5 6.0 - 8.3 g/dL All other components within normal limits PROCALCITONIN - Abnormal; Notable for the following components: Procalcitonin 2.68 <0.10 ng/mL All other components within normal limits Narrative: Less than 0.5 ng/mL: Low risk for progression to sepsis. Review patients condition for localized infections. 0.5 to 2.0 ng/mL: Intermediate risk for progresion to sepsis. Review underlying conditions. Recommend repeat PCT after 6 hours has elapsed. Greater than 2.0 ng/mL: high risk for progression to sepsis unless other causes are known. TROPONIN T, HIGH SENSITIVITY - Abnormal; Notable for the following components: Troponin T, High Sensitivity 71 <=22 ng/L All other components within normal limits PT INR - Abnormal; Notable for the following components: Prothrombin Time 16.2 11.6 - 15.2 seconds INR 1.3 0.8 - 1.2 All other components within normal limits Narrative: Warfarin Therapy INR: 2.0-3.0 conventional anticoagulation INR: 2.5-3.5 high intensity anticoagulation BLOOD GAS, VENOUS - Abnormal; Notable for the following components: pH, Venous 7.248 7.320 - 7.430 units Base Excess, Venous -6.3 -2.0 - 2.0 mmol/L Hemoglobin, Whole Blood 11.3 14.0 - 16.8 g/dL Oxyhemoglobin, Venous 29.5 40.0 - 85.0 % total Hgb O2 Content, Venous 4.7 7.0 - 18.0 %vol Bicarbonate, Whole Blood 20.5 23.0 - 31.0 mmol/L All other components within normal limits CBC - Abnormal; Notable for the following components: WBC 19.22 4.00 - 10.80 K/uL HGB 11.4 14.0 - 16.8 g/dL HCT 33.4 40.0 - 48.4 % All other components within normal limits DIFFERENTIAL, AUTOMATED - Abnormal; Notable for the following components: WBC 19.22 4.00 - 10.80 K/uL Neutrophils % 77.2 40.0 - 75.0 % Lymphocytes % 10.8 18.0 - 42.0 % Absolute Neutrophils 14.82 1.80 - 7.70 K/uL Absolute Monocytes 2.06 0.00 - 1.10 K/uL All other components within normal limits TROPONIN T, HIGH SENSITIVITY - Abnormal; Notable for the following components: Troponin T, High Sensitivity 70 <=22 ng/L All other components within normal limits LACTATE, WHOLE BLOOD WITH REFLEX IF ABNORMAL - Normal APTT - Normal Narrative: Anticoagulation may affect testing. Refer to [employer] Test Catalog for a listof effects. CBC WITH WBC DIFFERENTIAL Narrative: The following orders were created for panel order CBC WITH WBC DIFFERENTIAL. Procedure Abnormality Status --------- ------ CBC[[id number]] Abnormal Final result DIFFERENTIAL, AUTOMATED[[id number]] Abnormal Final result Please view results for these tests on the individual orders. CELL COUNT WITH DIFFERENTIAL, BODY FLUID Narrative: The following orders were created for panel order CELL COUNT WITH DIFFERENTIAL, BODY FLUID. Procedure Abnormality Status --------- ------ CELL COUNT, BODY FLUID[[id number]] MANUAL DIFFERENTIAL, BOD...[[id number]] Please view results for these tests on the individual orders. CULTURE, BODY FLUID, AEROBIC CELL COUNT, BODY FLUID MANUAL DIFFERENTIAL, BODY FLUID CULTURE, BLOOD CULTURE, BLOOD MRSA SCREEN, PCR RESPIRATORY PATHOGEN PANEL, PCR GLUCOSE METER, POINT OF CARE (COMMUNICATION ORDER) GLUCOSE METER, POINT OF CARE (COMMUNICATION ORDER) GLUCOSE METER, POINT OF CARE (COMMUNICATION ORDER) GLUCOSE METER, POINT OF CARE (COMMUNICATION ORDER) GLUCOSE METER, POINT OF CARE (COMMUNICATION ORDER) Diet: No orders of the defined types were placed in this encounter. Additional Diet Information: Intake and Output: Intake/Output Summary (Last 24 hours) at 10/28/2023 1624 Last data filed at 10/28/2023 1307 Gross per 24 hour Intake 500 ml Output -- Net 500 ml Patient Belongings and Home Medications Patient Belongings at Bedside Belongings at Bedside: Vision;Jewelry;Clothing;Electronic devices (10/28/231299) Vision - Corrective Lenses: Glasses (10/28/231299) Jewelry: Bracelet (10/28/231299) Clothing: Pants;Shirt;Jacket/coat;Footwear;Socks;Underpants (10/28/231299) Patient Electronics: Cell phone (10/28/231299) Patient Belongings Sent Home (Does not apply to Ambulatory areas) Belongings Sent Home: None (10/28/231299) Patient Belongings Sent to Safe/Locker Belongings Sent to Safe: None (10/28/231299) Patient Medications Medications Brought by Patient?: No (10/28/231299) Recommendations/Follow up Goals/Plan of Care: achieve hemodynamic stability Consults not completed: N/A Anticipated tests/studies/procedures: dialysis Medication Reconcilliation completed for this Admission? Yes * Medical Necessity - Baldemar Nunez, Utilization Review Staff - 10/28/2023 3:47 PM EST AdmissionCare Guideline: Sepsis (and Other Febrile Illness without Focal Infection) - INPT, Inpatient Based on the indications selected for the patient, the bed status of Inpatient was determined to beMET The following indications were selected as present at the time of evaluation of the patient: - Hemodynamic instability, as indicated by 1 or more of the following: - Vital sign abnormality not readily corrected by appropriate treatment, as indicated by 1 or more of the following: - Tachycardia that persists despite appropriate treatment (eg, volume repletion, treatment of pain,treatment of underlying cause) - Parenteral antimicrobial regimen that must be implemented on inpatient basis (eg, infusion or monitoring needs beyond capabilities of outpatient parenteral therapy) Additional Information: natalie new troponin 71 creatinine 23.2 procalcitonin 2.68 AdmissionCare documentation entered by: Baldemar Nunez [facility] [employer], 27th edition, Copyright 2022 [facility] [employer], [facility] All Rights Reserved. [id number] Solely for purpose of utilization review and payment; not a diagnostic tool documented in this encounter Plan of Treatment Upcoming Encounters Date Type Department Care Team (Late st Contact Info) Description 11/03/2023 10:40 AM EST Office Visit [facility] [address] [place] [address] Tomer Garner MD [address] [place] [address] 11/03/2023 1:00 PM EST Office Visit Home Dialysis [address] [place] [address] Mdc, Peritoneal Dialysis [address] [facility] [place] [address] 11/07/2023 10:00 AM EST Telemedicine Sleep Disorders Medicine [facility] [address] [place] [address] Roxana Jewell PA-C [address] [place] [address] 11/10/2023 8:00 AM EST Treatment Home Dialysis [address] [place] [address] Nurse, [employer] [address] [place] [address] 11/10/2023 1:00 PM EST Nurse Only Home Dialysis [address] [phone] Nurse, [employer] [address] [place] [address] [address] 12/04/2023 1:00 PM EDT Office Visit Home Dialysis [address] [place] [address] Mdc, Peritoneal Dialysis [address] [facility] [address] 12/11/2023 8:00 AM EDT Treatment Home Dialysis [address] [place], [place] [address] Nurse, [address] [employer] [address] [place], [place] [address] 12/11/2023 1:00 PM EDT Nurse Only Home Dialysis [address] [place], [place] [phone] Nurse, [address] [place], [place] [address] 12/26/2023 1:00 PM EDT Office Visit Home Dialysis [address] [place], [place] [address] [facility] [place] [address] [facility] [address] 01/10/2024 8:00 AM EDT Treatment Home Dialysis [address] [place] [address] Nurse, [address] [employer] [address] [place] [address] 01/10/2024 1:00 PM EDT Nurse Only Home Dialysis [address] [place], [place] [phone] Nurse, [address] [employer] [address] [place] [address] 02/08/2024 1:00 PM EDT Office Visit Home Dialysis [address] [place], [place] [address] Mdc, Peritoneal Dialysis [address] [facility] [place], [place] [address] 02/10/2024 8:00 AM EDT Treatment Home Dialysis [address] [place], [place] [phone] Nurse, [address] [employer] [address] [place], [place] [address] 02/12/2024 1:00 PM EDT Nurse Only Home Dialysis [address] [place], [place] [phone] Nurse, Lance [address] [employer] [address] [place], [place] [address] 03/05/2024 1:00 PM EDT Office Visit Home Dialysis [address] [place], [place] [phone] [facility] [place] [address] [place] [address] 03/11/2024 8:00 AM EDT Treatment Home Dialysis [address] [place], [place] [phone] Nurse, [address] [place] [address] 03/11/2024 1:00 PM EDT Nurse Only Home Dialysis [address] [place], [place] [phone] Nurse, [address] [place] [address] 03/19/2024 1:00 PM EDT Office Visit Home Dialysis [address] [place] [address] [facility] [place] [address] [place] [address] 04/11/2024 8:00 AM EDT Treatment Home Dialysis [address] [place], [place] [phone] Nurse, [address] [employer] [address] [place], [place] [address] 04/11/2024 1:00 PM EDT Nurse Only Home Dialysis [address] [place], [place] [phone] Nurse, [employer] [place] [address] 04/29/2024 1:00 PM EDT Office Visit Home Dialysis [address] [place], [place] [phone] [facility] [place] [address] [place] [address] 05/12/2024 8:00 AM EDT Treatment Home Dialysis [facility] [place], [place] [phone] Nurse, [address] [place], [place] 05/14/2024 1:00 PM EDT Nurse Only Home Dialysis [address] [place], [place] [phone] Nurse, [address] [place], [place] [address] 06/07/2024 1:00 PM EDT Office Visit Home Dialysis [address] [place], [place] [phone] [facility] [place] [address] [facility] [place] [address] 06/11/2024 8:00 AM EDT Treatment Home Dialysis [address] [place], [place] [phone] Nurse, [address] [place], [place] [address] 06/11/2024 1:00 PM EDT Nurse Only Home Dialysis [address] [place], [place] [phone] Nurse, [address] [place], [place] [address] 06/25/2024 1:00 PM EDT Office Visit Home Dialysis [address] [place], [place] [address] [facility] [place] [address] [place] [address] 07/12/2024 8:00 AM EDT Treatment Home Dialysis [address] [place], [place] [phone] Nurse, Lance [employer] [address] [place], [place] [address] 07/12/2024 1:00 PM EDT Nurse Only Home Dialysis [address] [place], [place] [phone] Nurse, [employer] [address] [place], [place] 07/22/2024 1:00 PM EST Office Visit Home Dialysis [address] [place], [place] [address] [facility] [place] [address] [place] [address] 08/11/2024 8:00 AM EST Treatment Home Dialysis [address] [place], [place] [phone] Nurse, Lance [employer] [address] [place], [place] [address] 08/12/2024 1:00 PM EST Nurse Only Home Dialysis [address] [place], [place] [phone] Nurse, [place] [employer] [address] [place], [place] [address] 08/20/2024 1:00 PM EST Office Visit Home Dialysis [address] [place], [place] [address] [facility] [place] [address] [facility] [place] [address] Pending Results Name Type Priority Associated Diagnoses Date /Time CULTURE, BODY FLUID, AEROBIC Lab STAT 10/28/2023 4:25 PM EST CULTURE, BLOOD Lab STAT 10/28/2023 1:01 PM EST CULTURE, BLOOD Lab STAT 10/28/2023 1:17 PM EST DHEA-SULFATE Lab Add-on 10/29/2023 3 :08 PM EST Scheduled Orders Name Type Priority Associated Diagnoses Orde r Schedule EKG EKG STAT Sepsis (HCC) Perform Now for 1 Occurrences starting 10/28/2023 until 10/28/2023 MRSA SCREEN, PCR Lab Routine One Time for 1 Occurrences starting 10/28/2023 until 10/28/2023 DHEA-SULFATE Lab Add-on One Time for 1 Occurrences starting 10/30/2023 until 10/30/2023 Scheduled Referrals Name Type Priority Associated Diagnoses Orde r Schedule SLEEP MEDICINE REFERRAL OP Referral Within 10 days (routine) BISI (obstructive sleep apnea) Ordered: 10/31/2023 Health Maintenance Due Date Last Done Comments COVID-19 Vaccine (3 - Moderna risk series) 12/21/2020 11/23/2020, 10/18/2020 Hepatitis B (3 of 4 - Risk Dialysis Recombivax 3-dose series) 10/05/2023 05/02/2023, 04/04/2023 Depression Screening 11/18/2023 11/17/2022 Lipid Panel 05/18/2026 05/18/2021, 12/0 09/2009, 11/11/2004, [...] Procedure Name Priority Date/Time Associated Diagnosis Comments COMPREHENSIVE METABOLIC PANEL Routine 10/31/2023 6:39 AM EST CBC Routine 10/31/2023 6:39 AM EST COMPREHENSIVE METABOLIC PANEL Routine 10/30/2023 5:50 AM EST CBC Routine 10/30/2023 5:50 AM EST CORTISOL STAT 10/29/2023 3:38 PM EST CORTISOL STAT 10/29/2023 3:08 PM EST CORTISOL STAT 10/29/2023 1:55 PM EST ECHO, COMPLETE (2D), TRANS-THORACIC Routine 10/29/2023 11:29 AM EST Shock (HCC) BLOOD GAS, VENOUS Routine 10/29/2023 8:5 2 AM EST BASIC METABOLIC PANEL STAT 10/29/2023 8:06 AM EST OSMOLALITY, SERUM Routine 10/29/2023 8:0 6 AM EST CORTISOL Add-on 10/29/2023 8:06 AM EST COMPREHENSIVE METABOLIC PANEL Routine 10/29/2023 6:19 AM EST PHOSPHORUS Routine 10/29/2023 6:19 AM EST CBC Routine 10/29/2023 6:19 AM EST MAGNESIUM Routine 10/29/2023 6:19 AM EST MANUAL DIFFERENTIAL, BODY FLUID STAT 10/28/2023 4:25 PM EST CULTURE, BODY FLUID, AEROBIC STAT 10/28/2023 4:25 PM EST CELL COUNT WITH DIFFERENTIAL, BODY FLUID STAT 10/28/2023 4:25 PM EST CELL COUNT, BODY FLUID STAT 4:25 PM EST RESPIRATORY PATHOGEN PANEL, PCR STAT 10/28/2023 3:45 PM EST MRSA SCREEN, PCR Routine 10/28/2023 3:45 PM EST TROPONIN T, HIGH SENSITIVITY STAT 10/28/2023 3:15 PM EST XR CHEST 1 VIEW STAT 10/28/2023 1:45 PM EST US ABDOMEN LIMITED STAT 10/28/2023 1: 38 PM EST LACTATE, WHOLE BLOOD WITH REFLEX IF ABNORMAL STAT 10/28/2023 1:17 PM EST BLOOD GAS, VENOUS STAT 10/28/2023 1:1 7 PM EST PT INR STAT 10/28/2023 1:17 PM EST CULTURE, BLOOD STAT 10/28/2023 1:17 PM EST APTT STAT 10/28/2023 1:17 PM EST DIFFERENTIAL, AUTOMATED STAT 10/28/2023 1:01 PM EST TROPONIN T, HIGH SENSITIVITY STAT 10/28/2023 1:01 PM EST PROCALCITONIN STAT 10/28/2023 1:01 PM EST COMPREHENSIVE METABOLIC PANEL STAT 10/28/2023 1:01 PM EST CBC STAT 10/28/2023 1:01 PM EST CULTURE, BLOOD STAT 10/28/2023 1:01 PM EST CBC STAT 10/28/2023 1:01 PM EST documented in this encounter Results * (ABNORMAL) COMPREHENSIVE METABOLIC PANEL (10/31/2023 6:39 AM EST) BUN 75(H) 6 - 20 mg/dL 10/31/2023 7:20 AM EST [facility] Creatinine 22.9(H) 0.6 - 1.2 mg/dL 10/31/2023 7:20 AM EST [facility] Estimated Glomerular Filtration Rate 2(L) >=60 mL/min 10/31/2023 7:20 AM EST [facility] Comment:eGFR is calculated b ased on the CKD-EPI 2020 equation Sodium 138 135 - 146 mmol/L 10/31/2023 7:20 AM EST [facility] Potassium 3.5 3.5 - 5.1 mmol/L 10/31/2023 7:20 AM EST [facility] Chloride 92(L) 98 - 107 mmol/L 10/31/2023 7:20 AM EST [facility] CO2 17(L) 22 - 32 mmol/L 10/31/2023 7:20 AM EST [facility] Anion Gap 29(H) 7 - 15 mmol/L 10/31/2023 7:20 AM EST [facility] Glucose 113 70 - 120 mg/dL 10/31/2023 7:20 AM EST [facility] Albumin 4.1 3.8 - 5.0 g/dL 10/31/2023 7:20 AM EST [facility] AST 5(L) 10 - 50 U/L 10/31/2023 7:20 AM EST [facility] Comment:Result may be falsel y elevated due to hemolysis. Alkaline Phosphatase 69 35 - 130 U/L 10/31/2023 7:20 AM EST [facility] Bilirubin, Total 0.4 <=1.2 mg/dL 10/31/2023 7:20 AM EST [facility] Calcium 9.2 8.4 - 10.2 mg/dL 10/31/2023 7:20 AM EST [facility] Protein 7.2 6.0 - 8.3 g/dL 10/31/2023 7:20 AM EST [facility] ALT 14 10 - 50 U/L 10/31/2023 7:20 AM EST [facility] Blood Venous blood specimen / Unknown Venipuncture / Unknown 10/31/2023 6:39 AM EST 10/31/2023 6:51 AM EST Radha Alonso MD LAB BLOOD ORDERABLES [facility] [address] [place] [address] * (ABNORMAL) CBC (10/31/2023 6:39 AM EST) WBC 10.87(H) 4.00 - 10.80 K/uL 10/31/2023 7:03 AM EST [facility] RBC 2.98 4.50 - 5.25 M/uL 10/31/2023 7:03 AM EST [facility] HGB 8.9(L) 14.0 - 16.8 g/dL 10/31/2023 7:03 AM EST [facility] HCT 26.3(L) 40.0 - 48.4 % 10/31/2023 7:03 AM EST [facility] MCV 88.3 82.0 - 99.5 fL 10/31/2023 7:03 AM EST [facility] MCH 29.9 27.0 - 34.0 pg 10/31/2023 7:03 AM EST [facility] MCHC 33.8 32.0 - 36.0 g/dL 10/31/2023 7:03 AM EST [facility] RDW 13.6 11.5 - 15.5 % 10/31/2023 7:03 AM EST [facility] PLT 179 140 - 400 K/uL 10/31/2023 7:03 AM EST [facility] MPV 9.8 6.6 - 11.1 fL 10/31/2023 7:03 AM EST [facility] nRBCs 0 <=0 /100 WBCs 10/31/2023 7:03 AM EST [facility] Blood Venous blood specimen / Unknown Venipuncture / Unknown 10/31/2023 6:39 AM EST 10/31/2023 6:51 AM EST Radha Alonso MD LAB BLOOD ORDERABLES LABORATORY [facility] [place] [place] [address] [place] [address] * (ABNORMAL) COMPREHENSIVE METABOLIC PANEL (10/30/2023 5:50 AM EST) BUN 79(H) 6 - 20 mg/dL 10/30/2023 6:34 AM EST [facility] Creatinine 23.1(H) 0.6 - 1.2 mg/dL 10/30/2023 6:34 AM EST [facility] Estimated Glomerular Filtration Rate 2(L) >=60 mL/min 10/30/2023 6:34 AM EST [facility] Comment:eGFR is calculated b ased on the CKD-EPI 2020 equation Sodium 135 135 - 146 mmol/L 10/30/2023 6:34 AM EST [facility] Potassium 3.9 3.5 - 5.1 mmol/L 10/30/2023 6:34 AM EST [facility] Chloride 89(L) 98 - 107 mmol/L 10/30/2023 6:34 AM EST [facility] CO2 19(L) 22 - 32 mmol/L 10/30/2023 6:34 AM EST [facility] Anion Gap 27(H) 7 - 15 mmol/L 10/30/2023 6:34 AM EST [facility] Glucose 121(H) 70 - 120 mg/dL 10/30/2023 6:34 AM EST [facility] Albumin 4.0 3.8 - 5.0 g/dL 10/30/2023 6:34 AM EST [facility] AST 7(L) 10 - 50 U/L 10/30/2023 6:34 AM EST [facility] Alkaline Phosphatase 65 35 - 130 U/L 10/30/2023 6:34 AM EST [facility] Bilirubin, Total 0.4 <=1.2 mg/dL 10/30/2023 6:34 AM EST [facility] Calcium 8.8 8.4 - 10.2 mg/dL 10/30/2023 6:34 AM EST [facility] Protein 7.0 6.0 - 8.3 g/dL 10/30/2023 6:34 AM EST [facility] ALT 13 10 - 50 U/L 10/30/2023 6:34 AM EST [facility] Blood Venous blood specimen / Unknown Venipuncture / Unknown 10/30/2023 5:50 AM EST 10/30/2023 6:03 AM EST Radha Alonso MD LAB BLOOD ORDERABLES [facility] [address] [place] [address] * (ABNORMAL) CBC (10/30/2023 5:50 AM EST) WBC 12.87(H) 4.00 - 10.80 K/uL 10/30/2023 6:15 AM EST [facility] RBC 2.87 4.50 - 5.25 M/uL 10/30/2023 6:15 AM EST [facility] HGB 8.5(L) 14.0 - 16.8 g/dL 10/30/2023 6:15 AM EST [facility] HCT 25.5(L) 40.0 - 48.4 % 10/30/2023 6:15 AM EST [facility] MCV 88.9 82.0 - 99.5 fL 10/30/2023 6:15 AM EST [facility] MCH 29.6 27.0 - 34.0 pg 10/30/2023 6:15 AM EST [facility] MCHC 33.3 32.0 - 36.0 g/dL 10/30/2023 6:15 AM EST [facility] RDW 13.7 11.5 - 15.5 % 10/30/2023 6:15 AM EST [facility] PLT 183 140 - 400 K/uL 10/30/2023 6:15 AM EST [facility] MPV 10.0 6.6 - 11.1 fL 10/30/2023 6:15 AM EST [facility] nRBCs 0 <=0 /100 WBCs 10/30/2023 6:15 AM EST [facility] Blood Venous blood specimen / Unknown Venipuncture / Unknown 10/30/2023 5:50 AM EST 10/30/2023 6:03 AM EST Radha Alonso MD LAB BLOOD ORDERABLES Performing Organization Address City/[facility]/ZIP Co de Phone Number LABORATORY [facility] [place] [place] [address] [place] [address] * (ABNORMAL) CORTISOL (10/29/2023 3:38 PM EST) Cortisol 35.2(H) 2.5 - 19.5 ug/dL 10/29/2023 4:33 PM EST LABORATORY [facility] [place] [place] Comment: AM Reference Range: 4.8 - 19.5 ug/dL PM Reference Range: 2.5 - 11.9 ug/dL Blood Venous blood specimen / Unknown Venipuncture / Unknown 10/29/2023 3:38 PM EST 10/29/2023 3:41 PM EST Radha Alonso MD LAB BLOOD ORDERABLES Performing Organization Address City/[facility] Co de Phone Number LABORATORY [facility] [place] [place] [address] [place] [address] * (ABNORMAL) CORTISOL (10/29/2023 3:08 PM EST) Cortisol 33.0(H) 2.5 - 19.5 ug/dL 10/29/2023 3:50 PM EST LABORATORY [facility] [place] [place] Comment: AM Reference Range: 4.8 - 19.5 ug/dL PM Reference Range: 2.5 - 11.9 ug/dL Blood Venous blood specimen / Unknown Venipuncture / Unknown 10/29/2023 3:08 PM EST 10/29/2023 3:11 PM EST Radha Alonso MD LAB BLOOD ORDERABLES Performing Organization Address City/[facility] Co de Phone Number LABORATORY [facility] [place] [place] [address] [place] [address] * CORTISOL (10/29/2023 1:55 PM EST) Cortisol 15.9 2.5 - 19.5 ug/dL 10/29/2023 2:41 PM EST [facility] Comment: AM Reference Range: 4.8 - 19.5 ug/dL PM Reference Range: 2.5 - 11.9 ug/dL Blood Venous blood specimen / Unknown Venipuncture / Unknown 10/29/2023 1:55 PM EST 10/29/2023 2:01 PM EST Radha Alonso MD LAB BLOOD ORDERABLES LABORATORY [facility] [place] [place] [address] [place] [address] * ECHO, COMPLETE (2D), TRANS-THORACIC (10/29/2023 11:29 AM EST) Pathologist [facility] LEFT VENTRICULAR EJECTION FRACTION 65 % [facility] CARDIOLOG[facility] 10/29/2023 11:0 6 AM EST Radha lAonso MD ECHOCARDIOLOGY Performing Organization Address City/[facility]/ZIP Co de Phone Number [facility] * (ABNORMAL) BLOOD GAS, VENOUS (10/29/2023 8:52 AM EST) Temperature 37.0 C 10/29/2023 8:59 AM EST [facility] pH, Venous 7.260(L) 7.320 - 7.430 units 10/29/2023 8:59 AM EST [facility] pCO2, Venous 44.2 40.0 - 60.0 mmHg 10/29/2023 8:59 AM EST [facility] pO2, Venous 56.6(H) 25.0 - 50.0 mmHg 10/29/2023 8:59 AM EST [facility] Base Excess, Venous -7.1(L) -2.0 - 2.0 mmol/L 10/29/2023 8:59 AM EST [facility] Hemoglobin, Whole Blood 9.9(L) 14.0 - 16.8 g/dL 10/29/2023 8:59 AM EST [facility] Oxyhemoglobin, Venous 79.2 40.0 - 85.0 % total Hgb 10/29/2023 8:59 AM EST [facility] Carboxyhemoglobi n, Whole Blood 1.6(H) <=1.5 % total Hgb 10/29/2023 8:59 AM EST [facility] Comment:Smokers: 0-9.0 % Methemoglobin, Whole Blood 1.0 <=1.5 % total Hgb 10/29/2023 8:59 AM EST [facility] Reduced Hemoglobin, Venous 18.2 % total Hgb 10/29/2023 8:59 AM EST [facility] O2 Content, Venous 11.1 7.0 - 18.0 %vol 10/29/2023 8:59 AM EST [facility] Bicarbonate, Whole Blood 19.1(L) 23.0 - 31.0 mmol/L 10/29/2023 8:59 AM EST LABORATORY C Blood Venous blood specimen / Unknown Venipuncture / Unknown 10/29/2023 8:52 AM EST 10/29/2023 8:55 AM EST Radha Alonso MD LAB BLOOD ORDERABLES Performing Organization Address City/[facility] Co de Phone Number LABORATORY [facility] [place] [place] [address] [place] [address] * CORTISOL (10/29/2023 8:06 AM EST) Cortisol 13.9 2.5 - 19.5 ug/dL 10/29/2023 12:38 PM EST LABORATORY [facility] [place] [place] Comment: AM Reference Range: 4.8 - 19.5 ug/dL PM Reference Range: 2.5 - 11.9 ug/dL Blood Venous blood specimen / Unknown Venipuncture / Unknown 10/29/2023 8:06 AM EST 10/29/2023 8:14 AM EST Radha Alonso MD LAB BLOOD ORDERABLES Performing Organization Address [facility] de Phone Number LABORATORY [facility] [place] [place] [address] [place] [address] * (ABNORMAL) BASIC METABOLIC PANEL (10/29/2023 8:06 AM EST) BUN 76(H) 6 - 20 mg/dL 10/29/2023 8:43 AM EST [facility] Creatinine 23.4(H) 0.6 - 1.2 mg/dL 10/29/2023 8:43 AM EST [facility] Estimated Glomerular Filtration Rate 2(L) >=60 mL/min 10/29/2023 8:43 AM EST [facility] Comment:eGFR is calculated b ased on the CKD-EPI 2020 equation Sodium 136 135 - 146 mmol/L 10/29/2023 8:43 AM EST [facility] Potassium 3.8 3.5 - 5.1 mmol/L 10/29/2023 8:43 AM EST [facility] Chloride 89(L) 98 - 107 mmol/L 10/29/2023 8:43 AM EST [facility] CO2 18(L) 22 - 32 mmol/L 10/29/2023 8:43 AM EST [facility] Anion Gap 29(H) 7 - 15 mmol/L 10/29/2023 8:43 AM EST [facility] Glucose 116 70 - 120 mg/dL 10/29/2023 8:43 AM EST [facility] Calcium 9.0 8.4 - 10.2 mg/dL 10/29/2023 8:43 AM EST [facility] Blood Venous blood specimen / Unknown Venipuncture / Unknown 10/29/2023 8:06 AM EST 10/29/2023 8:14 AM EST Radha Alonso MD LAB BLOOD ORDERABLES Performing Organization Address City/[facility]/ZIP Co de Phone Number LABORATORY [facility] [place] [place] [address] [place] [address] * (ABNORMAL) OSMOLALITY, SERUM (10/29/2023 8:06 AM EST) Pathologist [facility] Osmolality, Serum 312(H) 278 - 305 mOsm/kg 10/29/2023 8:42 AM EST [facility] Blood Venous blood specimen / Unknown Venipuncture / Unknown 10/29/2023 8:06 AM EST 10/29/2023 8:11 AM EST Radha Alonso MD LAB BLOOD ORDERABLES Performing Organization Address City/[facility]/ZIP Co de Phone Number LABORATORY [facility] [place] [place] [address] [place] [address] * (ABNORMAL) PHOSPHORUS (10/29/2023 6:19 AM EST) Phosphorus 13.9(H) 2.5 - 4.8 mg/dL 10/29/2023 7:14 AM EST LABORATORY [facility] [place] [place] Blood Venous blood specimen / Unknown Venipuncture / Unknown 10/29/2023 6:19 AM EST 10/29/2023 6:37 AM EST Radha Alonso MD LAB BLOOD ORDERABLES Performing Organization Address City/[facility]/ZIP Co de Phone Number LABORATORY [facility] [place] [place] [address] [place] [address] * MAGNESIUM (10/29/2023 6:19 AM EST) Pathologist [facility] Magnesium 2.1 1.5 - 2.6 mg/dL 10/29/2023 7:14 AM EST LABORATORY [facility] [place] [place] Blood Venous blood specimen / Unknown Venipuncture / Unknown 10/29/2023 6:19 AM EST 10/29/2023 6:37 AM EST Radha Alonso MD LAB BLOOD ORDERABLES Performing Organization Address City/[facility] Co de Phone Number LABORATORY [place] [address] [place] [address] * (ABNORMAL) COMPREHENSIVE METABOLIC PANEL (10/29/2023 6:19 AM EST) Pathologist [facility] BUN 74(H) 6 - 20 mg/dL 10/29/2023 7:14 AM EST LABORATORY [facility] Creatinine 23.2(H) 0.6 - 1.2 mg/dL 10/29/2023 7:14 AM EST [facility] Estimated Glomerular Filtration Rate 2(L) >=60 mL/min 10/29/2023 7:14 AM EST [facility] Comment:eGFR is calculated b ased on the CKD-EPI 2020 equation Sodium 136 135 - 146 mmol/L 10/29/2023 7:14 AM EST [facility] Potassium 3.7 3.5 - 5.1 mmol/L 10/29/2023 7:14 AM EST [facility] Chloride 88(L) 98 - 107 mmol/L 10/29/2023 7:14 AM EST [facility] CO2 18(L) 22 - 32 mmol/L 10/29/2023 7:14 AM EST [facility] Anion Gap 30(H) 7 - 15 mmol/L 10/29/2023 7:14 AM EST [facility] Glucose 111 70 - 120 mg/dL 10/29/2023 7:14 AM EST [facility] Albumin 4.0 3.8 - 5.0 g/dL 10/29/2023 7:14 AM EST [facility] AST 7(L) 10 - 50 U/L 10/29/2023 7:14 AM EST [facility] Alkaline Phosphatase 70 35 - 130 U/L 10/29/2023 7:14 AM EST [facility] Bilirubin, Total 0.5 <=1.2 mg/dL 10/29/2023 7:14 AM EST [facility] Calcium 9.2 8.4 - 10.2 mg/dL 10/29/2023 7:14 AM EST [facility] Protein 7.4 6.0 - 8.3 g/dL 10/29/2023 7:14 AM EST [facility] ALT 14 10 - 50 U/L 10/29/2023 7:14 AM EST [facility] Blood Venous blood specimen / Unknown Venipuncture / Unknown 10/29/2023 6:19 AM EST 10/29/2023 6:37 AM EST Radha Celeste JOYCE LAB BLOOD ORDERABLES Performing Organization Address City/State/[facility] Co de Phone Number LABORATORY [facility] [place] [place] [address] [place] [address] * (ABNORMAL) CBC (10/29/2023 6:19 AM EST) WBC 15.46(H) 4.00 - 10.80 K/uL 10/29/2023 6:56 AM EST [facility] RBC 3.28 4.50 - 5.25 M/uL 10/29/2023 6:56 AM EST [facility] HGB 9.8(L) 14.0 - 16.8 g/dL 10/29/2023 6:56 AM EST [facility] HCT 29.1(L) 40.0 - 48.4 % 10/29/2023 6:56 AM EST [facility] MCV 88.7 82.0 - 99.5 fL 10/29/2023 6:56 AM EST [facility] MCH 29.9 27.0 - 34.0 pg 10/29/2023 6:56 AM EST [facility] MCHC 33.7 32.0 - 36.0 g/dL 10/29/2023 6:56 AM EST [facility] RDW 13.9 11.5 - 15.5 % 10/29/2023 6:56 AM EST [facility] PLT 184 140 - 400 K/uL 10/29/2023 6:56 AM EST [facility] MPV 9.8 6.6 - 11.1 fL 10/29/2023 6:56 AM EST [facility] nRBCs 0 <=0 /100 WBCs 10/29/2023 6:56 AM EST [facility] Blood Venous blood specimen / Unknown Venipuncture / Unknown 10/29/2023 6:19 AM EST 10/29/2023 6:37 AM EST Radha Celeste JOYCE LAB BLOOD ORDERABLES [facility] [address] [place] [address] * (ABNORMAL) MANUAL DIFFERENTIAL, BODY FLUID (10/28/2023 4:25 PM EST) Total Nucleated Cell Count, Fluid 79 cells/uL 10/28/2023 6:30 PM EST [facility] Neutrophils % 43(H) 2 - 34 % 10/28/2023 6:30 PM EST [facility] Lymphocytes % 14 0 - 50 % 10/28/2023 6:30 PM EST [facility] Monocytes % 43 9 - 61 % 10/28/2023 6:30 PM EST [facility] Absolute Neutrophils 33.97 cells/uL 10/28/2023 6:30 PM EST [facility] Absolute Lymphocytes 11.06 cells/uL 10/28/2023 6:30 PM EST [facility] Absolute Monocytes 33.97 cells/uL 10/28/2023 6:30 PM EST [facility] Body Fluid Specimen from wound / Unknown Non-blood Collection / Unknown 10/28/2023 4:25 PM EST 10/28/2023 4:39 PM EST Narrative LABORATORY [facility] - 10/28/2023 6:30 PM EST Some reference ranges and other method performance specifications have not been established for this fluid. The test results must be integrated into the clinical context for interpretation. Nilsa Richard MD LAB FL UID AND STOOL ORDERABLES Performing Organization Address [facility] de Phone Number LABORATORY [facility] [place] [place] [address] [place] [address] * CELL COUNT, BODY FLUID (10/28/2023 4:25 PM EST) Clarity, Fluid Clear Clear 10/28/2023 6:26 PM EST [facility] Color, Fluid Colorless Straw, Yellow, Colorless 10/28/2023 6:26 PM EST LABORATORY [facility] Total Nucleated Cell Count, Fluid 79 <85 cells/uL 10/28/2023 6:26 PM EST [facility] RBC, Fluid 0 cells/uL 10/28/2023 6:26 PM EST LABORATORY [facility] Body Fluid Specimen from wound / Unknown Non-blood Collection / Unknown 10/28/2023 4:25 PM EST 10/28/2023 4:39 PM EST Narrative LABORATORY [facility] [place] [place] - 10/28/2023 6:26 PM EST Some reference ranges and other method performance specifications have not been established for this fluid. The test results must be integrated into the clinical context for interpretation. Nilsa Richard MD LAB FL UID AND STOOL ORDERABLES Performing Organization Address [facility] de Phone Number LABORATORY [facility] [place] [place] [address] [place] [address] * RESPIRATORY PATHOGEN PANEL, PCR (10/28/2023 3:45 PM EST) Adenovirus by PCR Negative Negative 024 5:29 PM EST LABORATORY [facility] [place] [place] Coronavirus 229E by PCR Negative Negative 10/28/2023 5:29 PM EST LAB[facility]ATORY [facility] [place] [place] Coronavirus HKU1 by PCR Negative Negative 10/28/2023 5:29 PM EST LAB[facility]ATORY [facility] [place] [place] Coronavirus NL63 by PCR Negative Negative 10/28/2023 5:29 PM EST LABORATORY [facility] [place] [place] Coronavirus OC43 by PCR Negative Negative 10/28/2023 5:29 PM EST LABORATORY [facility] [place] [place] Coronavirus SARS-CoV-2 by PCR Negative Negative 10/28/2023 5:29 PM EST LABORATORY [facility] [place] [place] Human Metapneumovirus by PCR Negative Negative 10/28/2023 5:29 PM EST LABORATORY [facility] [place] [place] Rhinovirus/Enterovi nehemiah by PCR Negative Negative 10/28/2023 5:29 PM EST LABORATORY [facility] [place] [place] Influenza A Virus by PCR Negative Negative 10/28/2023 5:29 PM EST LAB[facility]ATORY [facility] [place] [place] Influenza B Virus by PCR Negative Negative 10/28/2023 5:29 PM EST LAB[facility]ATORY [facility] [place] [place] Parainfluenza Virus 1 by PCR Negative Negative 10/28/2023 5:29 PM EST LABORATORY [facility] [place] [place] Parainfluenza Virus 2 by PCR Negative Negative 10/28/2023 5:29 PM EST LAB[facility]ATORY [facility] [place] [place] Parainfluenza Virus 3 by PCR Negative Negative 10/28/2023 5:29 PM EST LAB[facility]ATORY [facility] [place] [place] Parainfluenza Virus 4 by PCR Negative Negative 10/28/2023 5:29 PM EST LAB[facility]ATORY [facility] [place] [place] Respiratory Syncytial Virus by PCR Negative Negative 10/28/2023 5:29 PM EST LABORATORY [facility] [place] [place] Bordetella pertussis by PCR Negative Negative 10/28/2023 5:29 PM EST LAB[facility]ATORY [facility] [place] [place] Chlamydia pneumoniae by PCR Negative Negative 10/28/2023 5:29 PM EST LABORATORY [facility] [place] [place] Mycoplasma pneumoniae by PCR Negative Negative 10/28/2023 5:29 PM EST LABORATORY [facility] [place] [place] Bordetella parapertussis by PCR Negative Negative 10/28/2023 5:29 PM EST LABORATORY [facility] [place] [place] Comment: The primers that detect Rhinovirus may cross react with some Enterorviruses. The validation of bronchial specimens, tracheal aspirates, and throats for this assay was developed and performance characteristics determined by [employer]. The validation of alternate specimen types has not been cleared or approved by the U.S. Food and Drug Administration (FDA). It has been determined that such clearance or approval is not necessary. Upper Respiratory Mid-turbinate nasal swab / Unknown Non-blood Collection / Unknown 10/28/2023 3:45 PM EST 10/28/2023 4:26 PM EST Uriel Beal DO LAB MICRO - GENERA L ORDERABLES Performing Organization Address [facility] de Phone Number LABORATORY [place] [address] [place] [address] * MRSA SCREEN, PCR (10/28/2023 3:45 PM EST) Pathologist [facility] MRSA PCR Result Negative Negative 5:55 PM EST LABORATORY [facility] [place] [place] Comment:No Methicillin resis tant Staphylococcus aureus detected by PCR (amplified probe). Upper Respiratory Swab of internal nose / Unknown Non-blood Collection / Unknown 10/28/2023 3:45 PM EST 10/28/2023 4:25 PM EST Uriel Beal DO LAB MICRO - GENERA L ORDERABLES Performing Organization Address [facility] Phone Number LABORATORY [place] [address] [place] [address] * (ABNORMAL) TROPONIN T, HIGH SENSITIVITY (10/28/2023 3:15 PM EST) [facility] Troponin T, High Sensitivity 70(H) <=22 ng/L 10/28/2023 3:51 PM EST LABORATORY [facility] [place] [place] Blood Venous blood specimen / Unknown Venipuncture / Unknown 10/28/2023 3:15 PM EST 10/28/2023 3:29 PM EST Uriel Beal DO LAB BLOOD ORDERABL ES Performing Organization Address [facility] Co de Phone Number LABORATORY [facility] [place] [place] [address] [place] [address] * XR CHEST 1 VIEW (10/28/2023 1:45 PM EST) Anatomical Region Laterality Modality Chest Computed Radiogr aphy 10/28/2023 1:57 PM EST Impressions 10/28/2023 2:03 PM EST IMPRESSION Low lung volumes, otherwise no evidence of acute cardiopulmonary disease. I have personally reviewed this examination and agree with the resident/fellow physician's interpretation. Narrative 10/28/2023 2:03 PM EST EXAM XR CHEST 1 VIEW-10/28/2023 1:45 pm HISTORY Sepsis COMPARISON CT chest 05/30/2020. Chest radiograph 03/24/2023. TECHNIQUE Front view of the chest examined. FINDINGS FOREIGN BODIES, SUPPORT TUBES, LINES, DEVICES: None. LUNGS, PLEURA: Low lung volumes. No consolidative opacities. No large pleural effusion. No discernible pneumothorax. CARDIOVASCULAR, MEDIASTINUM: The cardiomediastinal silhouette is normal in size and morphology. OTHER: None. Procedure Note Rian Figueroa DO - 10/28/2023 EXAM XR CHEST 1 VIEW-10/28/2023 1:45 pm HISTORY Sepsis COMPARISON CT chest 05/30/2020. Chest radiograph 03/24/2023. TECHNIQUE Front view of the chest examined. FINDINGS FOREIGN BODIES, SUPPORT TUBES, LINES, DEVICES: None. LUNGS, PLEURA: Low lung volumes. No consolidative opacities. No largepleural effusion. No discernible pneumothorax. CARDIOVASCULAR, MEDIASTINUM: The cardiomediastinal silhouette is normalin size and morphology. OTHER: None. IMPRESSION IMPRESSION Low lung volumes, otherwise no evidence of acute cardiopulmonarydisease. I have personally reviewed this examination and agree with the resident/fellow physician's interpretation. Uriel Beal DO RADIOLOGY (RAD GEN ERAL) * US ABDOMEN LIMITED (10/28/2023 1:38 PM EST) Anatomical Region Laterality Modality Abdomen, Body Ultrasound 10/28/2023 1:48 PM EST Impressions 10/28/2023 2:02 PM EST IMPRESSION Gallbladder wall thickening. No pericholecystic fluid, shadowing gallstones, or sonographic Villafana sign to further support acute cholecystitis.. I have personally reviewed this examination and agree with the resident/fellow physician's interpretation. Narrative 10/28/2023 2:02 PM EST EXAM US ABDOMEN LIMITED-10/28/2023 1:38 pm HISTORY RUQ abdominal pain; concern for sepsis TECHNIQUE Sonogram of the right upper quadrant. COMPARISON CT abdomen/pelvis 11/03/2022. FINDINGS LIVER: Normal echogenicity. No focal lesion. BILE DUCTS: No intrahepatic or extrahepatic duct dilatation. The common bile duct measures 3 mm. GALLBLADDER: Increased gallbladder wall thickening. No pericholecystic fluid or shadowing gallstones. No sonographic Villafana's sign per phd internship's exam. PANCREAS: Visualized portions are unremarkable. RIGHT KIDNEY: Poorly visualized aside from 3.3 x 2.8 x 2.5 cm simple cyst. Increased renal cortical echogenicity suggestive of medical renal disease. OTHER: No ascites. Procedure Note Rian Figueroa, DO - 10/28/2023 EXAM US ABDOMEN LIMITED-10/28/2023 1:38 pm HISTORY RUQ abdominal pain; concern for sepsis TECHNIQUE Sonogram of the right upper quadrant. COMPARISON CT abdomen/pelvis 11/03/2022. FINDINGS LIVER: Normal echogenicity. No focal lesion. BILE DUCTS: No intrahepatic or extrahepatic duct dilatation. The commonbile duct measures 3 mm. GALLBLADDER: Increased gallbladder wall thickening. No pericholecysticfluid or shadowing gallstones. No sonographic Villafana's sign personographer's exam. PANCREAS: Visualized portions are unremarkable. RIGHT KIDNEY: Poorly visualized aside from 3.3 x 2.8 x 2.5 cm simple cyst.Increased renal cortical echogenicity suggestive of medical renaldisease. OTHER: No ascites. IMPRESSION IMPRESSION Gallbladder wall thickening. No pericholecystic fluid, shadowinggallstones, or sonographic Villafana sign to further support acutecholecystitis.. I have personally reviewed this examination and agree with the resident/fellow physician's interpretation. Uriel Beal DO RAD ULTRASOUND * (ABNORMAL) BLOOD GAS, VENOUS (10/28/2023 1:17 PM EST) Temperature 37.0 C 10/28/2023 1:29 PM EST LAB[facility]ATORY [facility] pH, Venous 7.248(L) 7.320 - 7.430 units 10/28/2023 1:29 PM EST [facility] pCO2, Venous 48.7 40.0 - 60.0 mmHg 10/28/2023 1:29 PM EST [facility] pO2, Venous 25.8 25.0 - 50.0 mmHg 10/28/2023 1:29 PM EST [facility] Base Excess, Venous -6.3(L) -2.0 - 2.0 mmol/L 10/28/2023 1:29 PM EST [facility] Hemoglobin, Whole Blood 11.3(L) 14.0 - 16.8 g/dL 10/28/2023 1:29 PM EST [facility] Oxyhemoglobin, Venous 29.5(L) 40.0 - 85.0 % total Hgb 10/28/2023 1:29 PM EST [facility] Carboxyhemoglobi n, Whole Blood 0.8 <=1.5 % total Hgb 10/28/2023 1:29 PM EST [facility] Comment:Smokers: 0-9.0 % Methemoglobin, Whole Blood 0.8 <=1.5 % total Hgb 10/28/2023 1:29 PM EST [facility] Reduced Hemoglobin, Venous 68.9 % total Hgb 10/28/2023 1:29 PM EST [facility] O2 Content, Venous 4.7(L) 7.0 - 18.0 %vol 10/28/2023 1:29 PM EST [facility] Bicarbonate, Whole Blood 20.5(L) 23.0 - 31.0 mmol/L 10/28/2023 1:29 PM EST [facility] Blood Venous blood specimen / Unknown Venipuncture / Unknown 10/28/2023 1:17 PM EST 10/28/2023 1:24 PM EST Uriel Beal M/A-COM LAB BLOOD ORDERABL ES LABORATORY [facility] [place] [place] [address] [place] [address] * APTT (10/28/2023 1:17 PM EST) aPTT 38 21 - 38 seconds 10/28/2023 1:38 PM EST [facility] Blood Venous blood specimen / Unknown Venipuncture / Unknown 10/28/2023 1:17 PM EST 10/28/2023 1:24 PM EST Narrative [facility] - 10/28/2023 1:38 PM EST Anticoagulation may affect testing. Refer to [employer] Test Catalog for a list of effects. Uriel Beal LAB BLOOD ORDERABL ES LABORATORY [facility] [place] [place] [address] [place] [address] * (ABNORMAL) PT INR (10/28/2023 1:17 PM EST) Prothrombin Time 16.2(H) 11.6 - 15.2 seconds 10/28/2023 1:37 PM EST LABORATORY C INR 1.3(H) 0.8 - 1.2 10/28/2023 1:37 PM EST LABORATORY [facility] [place] [place] Blood Venous blood specimen / Unknown Venipuncture / Unknown 10/28/2023 1:17 PM EST 10/28/2023 1:24 PM EST Narrative [facility] - 10/28/2023 1:37 PM EST Warfarin Therapy INR: 2.0-3.0 conventional anticoagulation INR: 2.5-3.5 high intensity anticoagulation Uriel Beal LAB BLOOD ORDERABL ES Performing Organization Address City/[facility]/ZIP Co de Phone Number LABORATORY [facility] [place] [place] [address] [place] [address] * LACTATE, WHOLE BLOOD WITH REFLEX IF ABNORMAL (10/28/2023 1:17 PM EST) Pathologist [facility] Lactate, Whole Blood 2.0 0.4 - 2.0 mmol/L 10/28/2023 1:29 PM EST LABORATORY [facility] [place] [place] Blood Venous blood specimen / Unknown Venipuncture / Unknown 10/28/2023 1:17 PM EST 10/28/2023 1:24 PM EST Uriel Beal LAB BLOOD ORDERABL ES Performing Organization Address City/[facility]/ZIP Co de Phone Number LABORATORY [facility] [place] [place] [address] [place] [address] * (ABNORMAL) DIFFERENTIAL, AUTOMATED (10/28/2023 1:01 PM EST) Pathologist [facility] WBC 19.22(H) 4.00 - 10.80 K/uL 10/28/2023 1:35 PM EST [facility] Neutrophils % 77.2(H) 40.0 - 75.0 % 10/28/2023 1:35 PM EST [facility] Lymphocytes % 10.8(L) 18.0 - 42.0 % 10/28/2023 1:35 PM EST [facility] Monocytes % 10.7 1.0 - 11.0 % 10/28/2023 1:35 PM EST [facility] Eosinophils % 0.3 0.0 - 6.0 % 10/28/2023 1:35 PM EST [facility] Basophils % 0.3 0.0 - 2.0 % 10/28/2023 1:35 PM EST [facility] Immature Granulocytes % 0.7 0.0 - 2.0 % 10/28/2023 1:35 PM EST [facility] Absolute Neutrophils 14.82(H) 1.80 - 7.70 K/uL 10/28/2023 1:35 PM EST [facility] Absolute Lymphocytes 2.08 1.00 - 4.80 K/ul 10/28/2023 1:35 PM EST [facility] Absolute Monocytes 2.06(H) 0.00 - 1.10 K/uL 10/28/2023 1:35 PM EST [facility] Absolute Eosinophils 0.06 0.00 - 0.70 K/uL 10/28/2023 1:35 PM EST [facility] Absolute Basophils 0.06 0.00 - 0.20 K/uL 10/28/2023 1:35 PM EST [facility] Absolute Immature Granulocytes 0.14 0.00 - 0.20 K/uL 10/28/2023 1:35 PM EST [facility] Blood Venous blood specimen / Unknown Venipuncture / Unknown 10/28/2023 1:01 PM EST 10/28/2023 1:27 PM EST Uriel Beal DO LAB BLOOD ORDERABL ES [facility] [address] [place] [address] * (ABNORMAL) CBC (10/28/2023 1:01 PM EST) WBC 19.22(H) 4.00 - 10.80 K/uL 10/28/2023 1:35 PM EST [facility] RBC 3.76 4.50 - 5.25 M/uL 10/28/2023 1:35 PM EST [facility] HGB 11.4(L) 14.0 - 16.8 g/dL 10/28/2023 1:35 PM EST [facility] HCT 33.4(L) 40.0 - 48.4 % 10/28/2023 1:35 PM EST [facility] MCV 88.8 82.0 - 99.5 fL 10/28/2023 1:35 PM EST [facility] MCH 30.3 27.0 - 34.0 pg 10/28/2023 1:35 PM EST [facility] MCHC 34.1 32.0 - 36.0 g/dL 10/28/2023 1:35 PM EST [facility] RDW 13.7 11.5 - 15.5 % 10/28/2023 1:35 PM EST [facility] PLT 222 140 - 400 K/uL 10/28/2023 1:35 PM EST [facility] MPV 10.1 6.6 - 11.1 fL 10/28/2023 1:35 PM EST [facility] nRBCs 0 <=0 /100 WBCs 10/28/2023 1:35 PM EST [facility] Blood Venous blood specimen / Unknown Venipuncture / Unknown 10/28/2023 1:01 PM EST 10/28/2023 1:27 PM EST Uriel Beal M/A-COM LAB BLOOD ORDERABL ES Performing Organization Address City/State/[facility] Co de Phone Number LABORATORY [facility] [place] [place] [address] [place] [address] * (ABNORMAL) TROPONIN T, HIGH SENSITIVITY (10/28/2023 1:01 PM EST) Pathologist [facility] Troponin T, High Sensitivity 71(H) <=22 ng/L 10/28/2023 2:19 PM EST [facility] Blood Venous blood specimen / Unknown Venipuncture / Unknown 10/28/2023 1:01 PM EST 10/28/2023 1:24 PM EST Uriel Beal DO LAB BLOOD ORDERABL ES Performing Organization Address [facility] Co de Phone Number LABORATORY [facility] [place] [place] [address] [place] [address] * (ABNORMAL) PROCALCITONIN (10/28/2023 1:01 PM EST) Procalcitonin 2.68(H) <0.10 ng/mL 10/28/2023 2:19 PM EST LABORATORY [facility] Blood Venous blood specimen / Unknown Venipuncture / Unknown 10/28/2023 1:01 PM EST 10/28/2023 1:24 PM EST Narrative [facility] - 10/28/2023 2:19 PM EST Less than 0.5 ng/mL: Low risk for progression to sepsis. Review patients condition for localized infections. 0.5 to 2.0 ng/mL: Intermediate risk for progresion to sepsis. Review underlying conditions. Recommend repeat PCT after 6 hours has elapsed. Greater than 2.0 ng/mL: high risk for progression to sepsis unless other causes are known. Uriel Satish Beal DO LAB BLOOD ORDERABL ES Performing Organization Address [facility] de Phone Number LABORATORY [facility] [place] [place] [address] [place] [address] * (ABNORMAL) COMPREHENSIVE METABOLIC PANEL (10/28/2023 1:01 PM EST) Pathologist [facility] BUN 62(H) 6 - 20 mg/dL 10/28/2023 2:19 PM EST [facility] Creatinine 23.2(H) 0.6 - 1.2 mg/dL 10/28/2023 2:19 PM EST [facility] Estimated Glomerular Filtration Rate 2(L) >=60 mL/min 10/28/2023 2:19 PM EST [facility] Comment:eGFR is calculated b ased on the CKD-EPI 2020 equation Sodium 135 135 - 146 mmol/L 10/28/2023 2:19 PM EST [facility] Potassium 3.7 3.5 - 5.1 mmol/L 10/28/2023 2:19 PM EST [facility] Chloride 88(L) 98 - 107 mmol/L 10/28/2023 2:19 PM EST [facility] CO2 17(L) 22 - 32 mmol/L 10/28/2023 2:19 PM EST [facility] Anion Gap 30(H) 7 - 15 mmol/L 10/28/2023 2:19 PM EST [facility] Glucose 104 70 - 120 mg/dL 10/28/2023 2:19 PM EST [facility] Albumin 4.8 3.8 - 5.0 g/dL 10/28/2023 2:19 PM EST [facility] AST 7(L) 10 - 50 U/L 10/28/2023 2:19 PM EST [facility] Alkaline Phosphatase 79 35 - 130 U/L 10/28/2023 2:19 PM EST [facility] Bilirubin, Total 0.4 <=1.2 mg/dL 10/28/2023 2:19 PM EST [facility] Calcium 9.8 8.4 - 10.2 mg/dL 10/28/2023 2:19 PM EST [facility] Protein 8.5(H) 6.0 - 8.3 g/dL 10/28/2023 2:19 PM EST [facility] ALT 14 10 - 50 U/L 10/28/2023 2:19 PM EST [facility] Blood Venous blood specimen / Unknown Venipuncture / Unknown 10/28/2023 1:01 PM EST 10/28/2023 1:24 PM EST Uriel Beal DO LAB BLOOD ORDERABL ES Performing Organization Address City/State/[facility] Co de Phone Number LABORATORY [facility] [place] [place] [address] [place] [address] documented in this encounter Visit Diagnoses Diagnosis Sepsis (HCC)- Primary Unspecified septicemia Sepsis (HCC) Unspecified septicemia Leukocytosis, unspecified type Abdominal pain, right upper quadrant Nausea and vomiting, unspecified vomiting type Chest pain Chest pain, unspecified Shock (HCC) Shock, unspecified BISI (obstructive sleep apnea) Obstructive sleep apnea (adult) (pediatric) Anemia of chronic renal failure, stage 5 (HCC) Dyslipidemia, goal LDL below 160 Other and unspecified hyperlipidemia ESRD on peritoneal dialysis (HCC) End stage renal disease 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 Metabolic acidosis Acidosis Hypertension Unspecified essential hypertension Kidney replaced by transplant Dialysis-associated peritonitis (HCC) Infection and inflammatory reaction due to peritoneal dialysis catheter Shock (HCC) Shock, unspecified Hypovolemia Orthostatic hypotension documented in this encounter Administered Medications Inactive Administered Medications - up to 3 most recent administrations Medication Order MAR Action Action Date Dose Rate Site calcium acetate (Phos Binder) (Phoslo) cap/tab 2,001 mg 2,001 mg, Oral, WITH MEALS, First dose on 10/28/23 at 1700, Until Discontinued Given 10/31/2023 7:55 AM EST 2,001 mg Given 10/30/2023 4:25 PM EST 2,001 mg Given 10/30/2023 11:13 AM EST 2,001 mg chlorhexidine gluconate cloth 2 % pad External, [id number], First dose on 10/28/23 at 1315, Until Discontinued, Applied to appropriate patients per train conductor's recommendations following daily care. May use more than one Pad (cloth/wipe) as needed to complete care. Given 10/29/2023 8:41 AM EST 1 Pad Given 10/28/2023 1:15 PM EST chlorhexidine gluconate cloth 2 % pad External, [id number], First dose on 10/29/23 at 1200, Until Discontinued, Applied to appropriate patients per train conductor's recommendations following daily care. May use more than one Pad (cloth/wipe) as needed to complete care. Given 10/31/2023 8:02 AM EST 1 Pad Given 10/30/2023 7:42 AM EST 1 Pad cinacalcet (Sensipar) tab 30 mg 30 mg, Oral, Daily(AM), First dose on 10/29/23 at 0900, Until Discontinued Given 10/31/2023 7:55 AM EST 30 mg Given 10/30/2023 7:42 AM EST 30 mg Given 10/29/2023 8:32 AM EST 30 mg Cosyntropin (Cortrosyn) inj 250 mcg 250 mcg, IV Push, ONCE, On 10/29/23 at 1245, For 1 dose, For a valid cortisol stimulation test, Draw cortisol lab 3 times: Immediately before the cosyntropin injection, 30 minutes after administration of cosyntropin injection 60 minutes after administration cosyntropin injection May administer as dispensed over 2 minutes. Protect from light. For cortisol stimulation test a baseline cortisol level must be drawn immediately before the cosyntropin and then 30 minutes and 60 minutes post administration. Given 10/29/2023 1:56 PM EST 250 mcg cycloSPORINE modified cap 50 mg 50 mg, Oral, BID (.AM/PM), First dose on 10/28/23 at 2100, Until Discontinued Given 10/31/2023 7:54 AM EST 50 mg Given 10/30/2023 8:45 PM EST 50 mg Given 10/30/2023 7:42 AM EST 50 mg Docusate Sodium (Colace) cap 100 mg 100 mg, Oral, BID (.AM/PM), First dose on [facility] 10/28/23 at 2100, Until Discontinued, For oral administration ONLY, if route of administration is other than oral and alternative product must be ordered. Given 10/31/2023 7:55 AM EST 100 mg Given 10/30/2023 7:42 AM EST 100 mg Given 10/29/2023 8:32 AM EST 100 mg folic acid tab 1 mg 1 mg, Oral, Daily(AM), First dose on [place] 10/29/23 at 0900, Until Discontinued Given 10/31/2023 7:55 AM EST 1 mg Given 10/30/2023 7:42 AM EST 1 mg Given 10/29/2023 8:32 AM EST 1 mg gentamicin sulfate 0.1 % cream Topical, [id number], First dose on [facility] 10/28/23 at 1315, Until Discontinued, Apply to PD exit site Given 10/31/2023 8:02 AM EST Given 10/30/2023 7:43 AM EST Given 10/29/2023 8:32 AM EST hEParin inj 7,500 Units 7,500 Units, Subcutaneous, Q12H, First dose on [place] 10/29/23 at 0900, Until Discontinued Given 10/31/2023 7:55 AM EST 7,500 Units Abdomen Left Lower Given 10/30/2023 8:45 PM EST 7,500 Units A bdomen Right Lower Given 10/30/2023 7:42 AM EST 7,500 Units A bdomen Left Lower isolyte 500 mL bolus infusion Intravenous, at 500 mL/hr Administer over 60 Minutes, Administer entire volume within 60 minutes or less. Obtain vital signs q15 min x 4 beginning within the hour after fluid bolus end time, then resume vital signs as ordered. Plasma-LYTE 148, isolyte-S, and isolyte-S pH 7.4 are considered equivalent - including for MAR barcode scanning., ONCE, 1 dose, On 10/28/23 at 1315 New Bag 10/28/2023 1:07 PM EST 500 mL 500 mL/h r isolyte-S pH 7.4 infusion Intravenous, at 75 mL/hr, Plasma-LYTE 148, isolyte-S, and isolyte-S pH 7.4 are considered equivalent - including for MAR barcode scanning., CONTINUOUS, Starting on 10/28/23 at 2100, Until 10/29/23 at 0859 New Bag 10/28/2023 8:38 PM EST 75 mL /hr isolyte-S pH 7.4 infusion Intravenous, at 75 mL/hr, Plasma-LYTE 148, isolyte-S, and isolyte-S pH 7.4 are considered equivalent - including for MAR barcode scanning., CONTINUOUS, Starting on 10/29/23 at 1245, Until 10/29/23 at 2044 New 10/29/2023 12:15 PM EST 75 m L/hr ondansetron (Zofran) inj 4 mg 4 mg, IV Push, ONCE, On 10/28/23 at 1415, For 1 dose Given 10/28/2023 1:44 PM EST 4 mg Piperacillin-Tazobactam (Zosyn) 4.5 g in 100 mL NSS ivpb (HALF hour infusion) 4.5 g, IV Piggyback, ONCE, On 10/28/23 at 1315, For 1 dose Restarted 10/28/2023 2:00 PM EST 220 mL/hr New 10/28/2023 1:28 PM EST 4.5 g 220 mL/hr renal vitamin cap 1 mg 1 mg (1 Capsule), Oral, Daily(AM), First dose on 10/29/23 at 0900, Until Discontinued Given 10/31/2023 7:55 AM EST 1 mg Given 10/30/2023 7:42 AM EST 1 mg Given 10/29/2023 8:40 AM EST 1 mg sodium bicarbonate tab 650 mg 650 mg, Oral, QID(AM/NOON/PM/HS), First dose on 10/28/23 at 1800, Until Discontinued Given 10/29/2023 4:37 AM EST 6 50 mg Given 10/28/2023 8:38 PM EST 650 mg Given 10/28/2023 6:46 PM EST 650 mg vancomycin (Vancocin) 2,500 mg in NSS 500 mL ivpb 2,500 mg, IV Piggyback, ONCE, 1 dose, On 10/28/23 at 1315 New Bag 10/28/2023 3:39 PM EST 2,500 mg 22 0 mL/hr documented in this encounter Active and Recently Administered Medications Times are shown in EST. Scheduled Medication Order 10/29/2023 10/30/2023 10/31/2023 calcium acetate (Phos Binder) (Phoslo) cap/tab 2,001 mg 2,001 mg, Oral, WITH MEALS, First dose on 10/28/23 at 1700, Until Discontinued 0831 (Given - Provider: Perla Smith RN)1130 (Given - Provider: Perla Smith RN)1735 (Given - Provider: Marek James RN) 0742 (Given - Provider: Perla Smith RN)1113 (Given - Provider: Perla Smith RN)1625 (Given - Provider: Perla Smith RN) 0755 (Given - Provider: SN Sam) chlorhexidine gluconate cloth 2 % pad External, [id number], First dose on 10/28/23 at 1315, Until Discontinued, Applied to appropriate patients per train conductor's recommendations following daily care. May use more than one Pad (cloth/wipe) as needed to complete care. 0841 (Given - Provider: Perla Smith RN) 1000 (Not Given - Provider: Perla Smith RN - Reason: Other- Please add reason in Comments - Comment: duplicate order) 1000 (Not Given - Provider: Perla Smith RN - Reason: Other- Please add reason in Comments - Comment: duplicate order) chlorhexidine gluconate cloth 2 % pad External, [id number], First dose on 10/29/23 at 1200, Until Discontinued, Applied to appropriate patients per train conductor's recommendations following daily care. May use more than one Pad (cloth/wipe) as needed to complete care. 1200 (Not Given - Provider: Perla Smith RN - Reason: Other- Please add reason in Comments - Comment: duplicate order) 0742 (Given - Provider: Perla Smith RN) 0802 (Given - Provider: SN Sam) cinacalcet (Sensipar) tab 30 mg 30 mg, Oral, Daily(AM), First dose on 10/29/23 at 0900, Until Discontinued 0832 (Given - Provider: Perla Smith RN) 0742 (Given - Provider: Perla Smith RN) 0755 (Given - Provider: SN Sam) Cosyntropin (Cortrosyn) inj 250 mcg (COMPLETED) 250 mcg, IV Push, ONCE, On 10/29/23 at 1245, For 1 dose, For a valid cortisol stimulation test, Draw cortisol lab 3 times: Immediately before the cosyntropin injection, 30 minutes after administration of cosyntropin injection 60 minutes after administration cosyntropin injection May administer as dispensed over 2 minutes. Protect from light. For cortisol stimulation test a baseline cortisol level must be drawn immediately before the cosyntropin and then 30 minutes and 60 minutes post administration. 1356 (Given - Provider: Perla Smith RN) cycloSPORINE modified cap 50 mg 50 mg, Oral, BID (.AM/PM), First dose on 10/28/23 at 2100, Until Discontinued 0832 (Given - Provider: Perla Smith RN)194 (Given - Provider: Wendy August RN) 0742 (Given - Provider: Perla Smith RN)2044 (Given - Provider: Jesus Diop RN) 0754 (Given - Provider: SN Sam) Docusate Sodium (Colace) cap 100 mg 100 mg, Oral, BID (.AM/PM), First dose on 10/28/23 at 2100, Until Discontinued, For oral administration ONLY, if route of administration is other than oral and alternative product must be ordered. 0832 (Given - Provider: Perla Smith RN)194 (Not Given - Provider: Wendy August RN - Reason: Parameter(s) Not Met) 0742 (Given - Provider: Perla Smith RN)2099 (Not Given - Provider: Jesus Diop RN - Reason: Parameter(s) Not Met) 0755 (Given - Provider: SN Sam) folic acid tab 1 mg 1 mg, Oral, Daily(AM), First dose on 10/29/23 at 0900, Until Discontinued 0832 (Given - Provider: Perla Smith RN) 0742 (Given - Provider: Perla Smith RN) 0755 (Given - Provider: SN Sam) gentamicin sulfate 0.1 % cream Topical, [id number], First dose on 10/28/23 at 1315, Until Discontinued, Apply to PD exit site 0832 (Given - Provider: Perla Smith RN) 0743 (Given - Provider: Perla Smith RN) 0802 (Given - Provider: SN Sam) hEParin inj 7,500 Units 7,500 Units, Subcutaneous, Q12H, First dose on 10/29/23 at 0900, Until Discontinued 0831 (Given - Provider: Perla Smith RN)1942 (Given - Provider: Wendy August, PIETER) 0742 (Given - Provider: Perla Smith RN)2044 (Given - Provider: Jesus Diop RN) 0755 (Given - Provider: SN Sam) renal vitamin cap 1 mg 1 mg (1 Capsule), Oral, Daily(AM), First dose on 10/29/23 at 0900, Until Discontinued 0840 (Given - Provider: Perla Smith RN) 0742 (Given - Provider: Perla Smith RN) 0755 (Given - Provider: SN Sam) sodium bicarbonate tab 650 mg (CANCELED) 650 mg, Oral, QID(AM/NOON/PM/HS), First dose on 10/28/23 at 1800, Until Discontinued 0437 (Given - Provider: Wendy August RN) Continuous Medication Order 10/29/2023 10/30/2023 10/31/2023 isolyte-S pH 7.4 infusion () Intravenous, at 75 mL/hr, Plasma-LYTE 148, isolyte-S, and isolyte-S pH 7.4 are considered equivalent - including for MAR barcode scanning., CONTINUOUS, Starting on 10/29/23 at 1245, Until 10/29/23 at 2043 1215 (New Bag - Provider: Perla Smith RN) PRN Medication Order 10/29/2023 10/30/2023 10/31/2023 Acetaminophen (Tylenol) tab 650 mg 650 mg, Oral, Q4H PRN Pain, Mild, Fever >38C(100.5F), Starting on 10/28/23 at 1714, Until Tu10/31/23 at 1512, Maximum of 4 grams (4000 mg) per day. ondansetron (Zofran) inj 4 mg 4 mg, IV Push, Q6H PRN Nausea, Starting on 10/28/23 at 1714, Until Mon10/31/23 at 1512 sodium chloride 0.9 % flush/inj 3 mL 3 mL, IV Push, PRN Other, Line Patency, Starting on 10/28/23 at 1711, Until Mon10/31/23 at 1512, Do not flush if lock, PICC, or central line not in place, IV infusing or unable to flush documented in this encounter Additional Health Concerns Infection Onset Date Last Indicated Resolved Time Respiratory Rule-Out 10/28/2023 10/28/2023 024 5:29 PM EST COVID-19 Rule-Out 10/28/2023 10/28/2023 10/28/2023 5:29 PM EST documented as of this encounter Advance Directives Latest [...] Advance Directives occurred with: Patient Care Teams Pellet Post Inspector Relationship Specialty Start Date End Date Tomer Garner MD [address] [facility] PCP - General 09/19/02 documented as of this encounter
--- OUTSIDE RECORDS SUMMARY | 2024-03-17 14:28 | External Medical Summary | Summary of Care ---
Author Name Unknown Organization [facility] Address [address] [place] [address] Phone [phone] Care Team Providers Care Terrazzo Polisher Name Role Phone Tomer Garner MD Primary Care Provider [phone] Encounter Details Date Type Department Care Team (Late st Contact Info) Description 11/01/2023 Population Health External Data Unspecified Department Allergies No known active allergiesdocumented as of this encounter (statuses as of 11/01/2023) Medications Medication Sig Dispensed Refills Start Date End Date Status Lovastatin 10 MG Oral TabletIndications:K idney replaced by transplant Take 1 Tablet by mouth in the morning. 90 Tablet 3 09/28/2022 Active cycloSPORINE Modified 25 MG Oral CapsuleIndications: Kidney replaced by transplant Take 2 capsules in the morning and 2 capsules in the evening 360 Capsule 3 12/02/2022 Active Folic Acid 1 MG Oral Tablet Take 1 Tablet by mouth in the morning. 90 Tablet 1 12/01/2022 Active Febuxostat 80 MG Oral Tablet (Uloric)Indications :Chronic gout without tophus, unspecified cause, unspecified site [...] 08/21/2023 Active Gentamicin Sulfate 0.1 % External CreamIndications:ES RD on peritoneal dialysis (HCC) Apply topically to affected area daily. Apply to PD exit catheter site daily after showering and cover with bandage 15 g 2 09/08/2023 Active Dialyvite Oral Tablet Take 1 Tablet by mouth in the morning. 30 Tablet 11 09/28/2023 Active documented as of this encounter (statuses as of 11/01/2023) Active Problems Problem Noted Date Diagnosed Date [...] as of this encounter (statuses as of 11/01/2023) Resolved Problems Problem Noted Date Diagnosed Date Resolved Date Dyslipidemia, goal to be determined 08/27/2009 11/21/2013 Overview: Per Lipid Taxonomy. PURE HYPERCHOLESTEROLEM 04/25/200208/11 Overview: Per Lipid Taxonomy. 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 1 Hemoptysis 04/11/1996 08/11/1996 Overview: ICD-10 update of inactive term documented as of this encounter (statuses as of 11/01/2023) Immunizations Name Administration Dates Next Due COVID-19 mRNA, LNP-s, No Pre serve, 2-Dose Series (Moderna) 11/23/2020,10/18/2020 DTP Vaccine 1981,1981,1981 HEP B - Hepatitis B (Dialysis/Immumocomp Pt) 05/02/2023,04/04/2023 MMR - Measles/Mumps/Rubella Vaccine 05/11/1982 OPV - Polio Virus Vaccine (Oral) 1981,04/11 Pneumococcal Conjugate Vacci ne, 20-valent ([id number]) 11/17/2022 Seasonal Influenza, PF, 6 M & [...] Description 11/03/2023 10:40 AM EST Office Visit [facility] [address] [place] [address] Tomer Garner MD [address] [place] [address] 11/03/2023 1:00 PM EST Office Visit Home Dialysis [address] [place] [address] [facility] [place] D[place] [address] [facility] [address] [place] [address] 11/07/2023 10:00 AM EST Telemedicine Sleep Disorders Medicine [facility] [place] [address] [place] [address] [place] [address] Roxana Jewell PA-C [address] [place] [address] 11/10/2023 8:00 AM EST Treatment Home Dialysis [address] [place], [place] [address] Nurse, [address] [place], [place] [address] 11/10/2023 1:00 PM EST Nurse Only Home Dialysis [address] [place], [place] [address] Nurse, [address] [employer] [address] [place], [place] [address] 12/04/2023 1:00 PM EDT Office Visit Home Dialysis [address] [place], [place] [address] [facility] [place] Peritoneal Dialysis [address] [place], [place] [address] 12/11/2023 8:00 AM EDT Treatment Home Dialysis [address] [place], [place] [address] Nurse, [address] [employer] [address] [place], [place] [address] 12/11/2023 1:00 PM EDT Nurse Only Home Dialysis [address] [place], [place] [address] Nurse, [employer] [address], [place] [address] 12/26/2023 1:00 PM EDT Office Visit Home Dialysis [address] [place], [place] [address] [facility] [place] Per[place] Dialysis [address] [facility] [place] [address] 01/10/2024 8:00 AM EDT Treatment Home Dialysis [address] [place], [place] [address] Nurse, [address] [employer] [address] [place], [place] [address] 01/10/2024 1:00 PM EDT Nurse Only Home Dialysis [address] [place], [place] [phone] Nurse, [address] [employer] [address] [place], [place] 02/08/2024 1:00 PM EDT Office Visit Home Dialysis [address] [place], [place] [address] [facility], Peritoneal Dialysis [address] [place] [address] 02/10/2024 8:00 AM EDT Treatment Home Dialysis [address] [place], [place] [phone] Nurse, [address] [employer] [address] [place], [place] [address] 02/12/2024 1:00 PM EDT Nurse Only Home Dialysis [address] [place], [place] [phone] Nurse, [address] [employer] [address] [place], [place] [address] 03/05/2024 1:00 PM EDT Office Visit Home Dialysis [address] [place], [place] [address] [facility], Peritoneal Dialysis [address] [place] [address] 03/11/2024 8:00 AM EDT Treatment Home Dialysis [address] [phone] Nurse, [address] [employer] [address] [place] [address] 03/11/2024 1:00 PM EDT Nurse Only Home Dialysis [address] [place] [address] Nurse, [address] [employer] [address] [place] [address] 03/19/2024 1:00 PM EDT Office Visit Home Dialysis [address] [place], [place] [phone] [facility] [place] Per[place] Dialysis [address] [place] [address] 04/11/2024 8:00 AM EDT Treatment Home Dialysis [address] [place], [place] [phone] Nurse, [address] [employer] [address] [place], [place] [address] 04/11/2024 1:00 PM EDT Nurse Only Home Dialysis [address] [place], [place] [phone] Nurse, [address] [employer] [address] [place] [address] 04/29/2024 1:00 PM EDT Office Visit Home Dialysis [address] [place], [place] [address] [facility] [place] Per[place] Dialysis [address] [place] [address] [facility] [place] [address] 05/12/2024 8:00 AM EDT Treatment Home Dialysis [address] [place], [place] [phone] Nurse, [address] [employer] [address] [place] [address] 05/14/2024 1:00 PM EDT Nurse Only Home Dialysis [address] [place], [place] [address] Nurse, [address] [employer] [address] [place] [address] 06/07/2024 1:00 PM EDT Office Visit Home Dialysis [address] [place], [place] [address] [facility] [place] Per[place] Dialysis [address] [place] [address] 06/11/2024 8:00 AM EDT Treatment Home Dialysis [address] [place] [address] Nurse, [address] [employer] [address] [place] [address] 06/11/2024 1:00 PM EDT Nurse Only Home Dialysis [address] [place], [place] [phone] Nurse, [employer] [address], [place] [address] 06/25/2024 1:00 PM EDT Office Visit Home Dialysis [address] [place] [address] [facility] [place] Peritoneal Dialysis [address] [place] [facility] [address] 07/12/2024 8:00 AM EDT Treatment Home Dialysis [address] [place], [place] [address] Nurse, [address] [employer] [address] [place] [address] 07/12/2024 1:00 PM EDT Nurse Only Home Dialysis [address] [place] [address] Nurse, [address] [employer] [address] [place] [address] 07/22/2024 1:00 PM EST Office Visit Home Dialysis [address] [place] [address] [facility] [place] [place] Dialysis [address] [place], [place] [id number] 08/11/2024 8:00 AM EST Treatment Home Dialysis [address] [place], [place] [address] Nurse, [employer] [address], [place] [address] 08/12/2024 1:00 PM EST Nurse Only Home Dialysis [address] [place], [place] [phone] Nurse, [employer] [address] [place] [address] 08/20/2024 1:00 PM EST Office Visit Home Dialysis [address] [place], [place] [address] [facility] [place] [place] Dialysis [address] [place], [place] [address] Health Maintenance Due Date Last Done Comments COVID-19 Vaccine (3 - Moderna risk series) 12/21/2020 11/23/2020, 10/18/2020 Hepatitis B (3 of 4 - Risk Dialysis Recombivax 3-dose series) 10/05/2023 05/02/2023, 04/04/2023 Depression Screening 11/18/2023 11/17/2022 Lipid Panel 05/18/2026 05/18/2021, 12/09/2009, 11/11/2004, Additional history exists Diabetes Screening 10/31/2026 [...] Advance Directives occurred with: Patient Care Teams Terrazzo Polisher Relationship Specialty Start Date End Date Tomer Garner MD [address] [place] [address] PCP - General 09/19/02 documented as of this encounter
--- OUTSIDE RECORDS SUMMARY | 2024-03-17 14:28 | External Medical Summary | Summary of Care ---
Author Name Unknown Organization [facility] Address [address] [place] [address] Phone [phone] Care Team Providers Care Refuse Laborer Name Role Phone Tomer Garner MD Primary Care Provider [phone] Encounter Details Date Type Department Care Team (Late st Contact Info) Description 11/03/2023 1:00 PM EST Office Visit Home Dialysis [facility] [address] [place] [address] [facility], Peritoneal Dialysis [address] [place] [address] 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 chronic kidney disease, not on chronic dialysis (HCC)*; ESRD on peritoneal dialysis (HCC) Allergies No known active allergiesdocumented as of this encounter (statuses as of 11/06/2023) Medications Medication Sig Dispensed Refills Start Date [...] CreamIndications:E SRD on peritoneal dialysis ([facility]) Apply topically to affected area daily. [...] mg/mL) dilution 2,000 mgIndications:ESRD on peritoneal dialysis ([facility]) 2000 mg PD FLUID ONCE 11/03/2023 11/03/2023 Ended cefepime (Maxipime) (160 mg/mL) inj dilution 1 gIndications:ESRD on peritoneal dialysis ([facility]) 1 g PD FLUID ONCE 11/03/2023 11/03/2023 Ended documented as of this encounter (statuses as of 11/06/2023) Active Problems Problem Noted Date Diagnosed Date [...] as of this encounter (statuses as of 11/06/2023) Resolved Problems Problem Noted Date Diagnosed Date [...] as of this encounter (statuses as of 11/06/2023) Immunizations Name Administration Dates Next Due COVID-19 mRNA, LNP-s, No Pre serve, 2-Dose Series (Moderna) 11/23/2020,10/18/2020 DTP Vaccine 1981,1981,1981 HEP B - Hepatitis B (Dialysis/Immumocomp Pt) 05/02/2023,04/04/2023 MMR - Measles/Mumps/Rubella Vaccine 05/11/1982 OPV - Polio Virus Vaccine (Oral) 1981,04/11 Pneumococcal Conjugate Vacci ne, 20-valent ([id number]) 11/17/2022 Pneumococcal Polysaccharide PPV23 (Pneumovax) 02/03/2004 Seasonal [...] Progress Notes * Sophia Hernandez RN - 11/06/2023 9:38 AM EST Peritoneal [...] time. Dianeal used 1.5% average nightly UF 0009-6722 ml in 24 hr period Last [facility] 1.05 Kt/V Oct 2023, repeat in two weeks, dialysis prescription changed Transplant status active Reviewed process for ordering monthly dialysis supplies using the calendar provided: yes Reviewed contact phone numbers for the Peritoneal Dialysis supply company as well as the Dialysis clinic and the on-call nurse via the hospital spinning machine operator: yes Questions Pt arrived for PD [...] PROGRESS NOTE October 2023 Labs Hospital admission 2/17/24 - 10/31/23 : Hypotension Chandan to measure [...] Cathy Wang RDN, CSOWM, LDN Renal Dietitian Angélica [phone] 11/03/2023 4:20 PM * Karrie Russo TECH [...] Team (Late st Contact Info) Description 11/07/2023 10:00 AM EST Telemedicine Sleep Disorders Medicine [facility] [address] [place] [address] Roxana Jewell PA-C [address] [place] [address] 11/10/2023 8:00 AM EST Treatment Home Dialysis [address] [place] [address] Nurse, [employer] [address] [place] [address] 11/10/2023 1:00 PM EST Nurse Only Home Dialysis [address] [place] [address] Nurse, [employer] [address] [place] [address] [address] 12/04/2023 1:00 PM EDT Office Visit Home Dialysis [address], [place] [address] [facility] Peritoneal Dialysis [address] [place] [facility] [place] [address] 12/11/2023 8:00 AM EDT Treatment Home Dialysis Hamzah [address], [place] [address] Nurse, [employer] [address], [place] [address] 12/11/2023 1:00 PM EDT Nurse Only Home Dialysis [address], [place] [phone] Nurse, Lance [employer] [address], [place] [address] 12/26/2023 1:00 PM EDT Office Visit Home Dialysis [facility], [place] [address] [facility] Peritoneal Dialysis [address] [place] [facility] [place] [address] 01/10/2024 8:00 AM EDT Treatment Home Dialysis Hamzah [address], [place] [address] Nurse, [place] [employer] [address], [place] [address] 01/10/2024 1:00 PM EDT Nurse Only Home Dialysis Ham[address], [place] [address] Nurse, [employer] [address], [place] [address] 02/08/2024 1:00 PM EDT Office Visit Home Dialysis Ham[address]ah [address], [place] [address] [facility] Peritoneal Dialysis [address] [facility] [place], [place] [address] 02/10/2024 8:00 AM EDT Treatment Home Dialysis Hamzah [address], [place] [phone] Nurse, Lance [address] [employer] [address], [place] [address] 02/12/2024 1:00 PM EDT Nurse Only Home Dialysis Hamzah [address], [place] [phone] Nurse, Lance [address] [employer] [address], [place] 03/05/2024 1:00 PM EDT Office Visit Home Dialysis Hamzah [address], [place] [phone] [facility] Peritoneal Dialysis [address] [place] [address] 03/11/2024 8:00 AM EDT Treatment Home Dialysis Hamzah [address], [place] [phone] Nurse, [employer] [address], [place] [address] 03/11/2024 1:00 PM EDT Nurse Only Home Dialysis Ham[address], [place] [phone] Nurse, Lance Lopez [address], [place] [address] 03/19/2024 1:00 PM EDT Office Visit Home Dialysis Ham[address], [place] [address] [facility] Peritoneal Dialysis [address] [place] [address] 04/11/2024 8:00 AM EDT Treatment Home Dialysis Hamz[address], [place] [phone] Nurse, [employer] [address], [place] [address] 04/11/2024 1:00 PM EDT Nurse Only Home Dialysis Ham[address], [place] [phone] Nurse, Lance [address] [facility] [address], [place] [address] 04/29/2024 1:00 PM EDT Office Visit Home Dialysis Hamzah [address], [place] [phone] [facility] Peritoneal Dialysis [address] [place] [address] 05/12/2024 8:00 AM EDT Treatment Home Dialysis Hamzah [address], [place] [phone] Nurse, Lance [employer] [address], [place] 05/14/2024 1:00 PM EDT Nurse Only Home Dialysis Ham[address], [place] [phone] Nurse, [employer] [address], [place] 06/07/2024 1:00 PM EDT Office Visit Home Dialysis Hamzah [address], [place] [phone] [facility] Peritoneal Dialysis [address] [facility] [address] 06/11/2024 8:00 AM EDT Treatment Home Dialysis Hamzah Lucas [address], [place] [phone] Nurse, Lance [employer] [address], [place] [address] 06/11/2024 1:00 PM EDT Nurse Only Home Dialysis Hamzah [address], [place] [address] Nurse, Lance [address] [employer] [address], [place] [address] 06/25/2024 1:00 PM EDT Office Visit Home Dialysis Hamzah Lucas [address], [place] [address] [facility] Peritoneal Dialysis [address] [place] [address] 07/12/2024 8:00 AM EDT Treatment Home Dialysis Hamzah Lucas [address], [place] [phone] Nurse, Lance [address] [facility] [address], [place] [address] 07/12/2024 1:00 PM EDT Nurse Only Home Dialysis Hamzah [address], [place] [address] Nurse, [address] [employer] [address], [place] [address] 07/22/2024 1:00 PM EST Office Visit Home Dialysis Hamzah [address], [place] [address] [facility] Peritoneal Dialysis [address] [place] [address] 08/11/2024 8:00 AM EST Treatment Home Dialysis Hamzah [address], [place] [address] Nurse, [address] [employer] [address], [place] [address] 08/12/2024 1:00 PM EST Nurse Only Home Dialysis Hamzah [address], [place] [phone] Nurse, Lance [address] [employer] [address], [place] [address] 08/20/2024 1:00 PM EST Office Visit Home Dialysis Hamzah [address] [place] [address] [facility], Peritoneal Dialysis [address] [...] LAB BLOOD ORDER [facility] [address] [place] [address] documented in this encounter Visit Diagnoses Diagnosis [...] Advance Directives occurred with: Patient Care Teams Refuse Laborer Relationship Specialty Start Date End Date Tomer Garner MD [address] [place] [address] PCP - General 09/19/02 documented as of this encounter
--- OUTSIDE RECORDS SUMMARY | 2024-03-17 14:28 | External Medical Summary ---
Author Name Unknown Address Unknown Organization [id number]:[facility] [place] [address] [place] [address] Laboratory Report Ordering Provider Test Date Status MARI BOB 11/02/2023 16:42:40 Final Observation Date Value Abnormality Reference (Units) Status Bacteria identified in Specimen by Culture 11/02/2023 16:42:40 No growth Final Gram Stain 11/02/2023 16:42:40 No polymorphonuclear leukocytes seen Final Gram Stain 11/02/2023 16:42:40 No organisms seen Final Test: Culture, Body Fluid, Aerobic
Specimen Source: Peritoneal Dialysate
Specimen Type: Body Fluid
Specimen Date: 11/02/2023 4:42 PM
Result Date: 11/07/2023 8:56 AM
Result Status: Final result
Resulting Lab: [facility]
[address]
[place] [address]

CULTURE

No growth

STAIN

No polymorphonuclear leukocytes seen

No organisms seen

null Performing Location [facility] [place] [address] [place] [address]
--- OUTSIDE RECORDS SUMMARY | 2024-03-17 14:28 | External Medical Summary | Summary of Care ---
Author Name Unknown Organization [facility] Address [address] [place] [address] Phone [phone] Care Team Providers Care Route Service Representative Name Role Phone Tomer Garner MD Primary Care Provider [phone] Reason for Visit * Reason Comments Hospital Follow-Up Encounter Details Date Type Department Care Team (Latest Contact Info) Description 11/03/2023 10:40 AM EST Office Visit [facility] [address] [place] [address] Tomer Garner MD [address] [place] [address] End stage renal disease (HCC)*; Stenosis of other vascular prosthetic devices, implants and grafts, initial encounter (HCC); 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); Diastolic congestive heart failure, unspecified HF chronicity (HCC); Immunosuppression (HCC); Hypertensive chronic kidney disease with stage 5 chronic kidney disease or end stage renal disease (HCC); Chronic gout without tophus, unspecified cause, unspecified site; Baldo's granulomatosis with renal involvement (HCC); Hypertension, unspecified type Allergies No known active allergiesdocumented as of this encounter (statuses as of 11/03/2023) Medications Medication Sig Dispensed Refills Start Date [...] External CreamIndications:E SRD on peritoneal dialysis ([facility]) Apply topically to affected area [...] dilution 2,000 mgIndications:ESRD on peritoneal dialysis ([facility]) 2000 mg PD FLUID ONCE 11/03/2023 11/03/2023 Active cefepime (Maxipime) (160 mg/mL) inj dilution 1 gIndications:ESRD on peritoneal dialysis ([facility]) 1 g PD FLUID ONCE 11/03/2023 11/03/2023 Active documented as of this encounter (statuses as of 11/03/2023) Active Problems Problem Noted Date Diagnosed Date [...] as of this encounter (statuses as of 11/03/2023) Resolved Problems Problem Noted Date Diagnosed Date [...] as of this encounter (statuses as of 11/03/2023) Immunizations Name Administration Dates Next Due COVID-19 mRNA, LNP-s, No Pre serve, 2-Dose Series (Moderna) 11/23/2020,10/18/2020 DTP Vaccine 1981,1981,1981 HEP B - Hepatitis B (Dialysis/Immumocomp Pt) 05/02/2023,04/04/2023 MMR - Measles/Mumps/Rubella Vaccine 05/11/1982 OPV - Polio Virus Vaccine (Oral) 1981,04/11 Pneumococcal Conjugate Vacci ne, 20-valent ([id number]) 11/17/2022 Seasonal Influenza, PF, 6 M & [...] Sign Reading Time Taken Comments Blood Pressure 118/62 11/03/2023 10:56 AM EST Pulse 125 11/03/2023 10:56 AM EST Temperature 36.8 C (98.2 F) 11/03/2023 10:[address] Respiratory Rate 16 11/03/2023 10:56 AM EST Oxygen Saturation 98% 11/03/2023 10:56 AM EST Inhaled Oxygen Concentration - - Weight 125.2 kg (276 lb) 11/03/2023 10:56 AM EST Height - - Body Mass Index 39.6 10/28/2023 6:10 PM EST documented in this [...] as of this encounter Progress Notes * Tomer Garner MD - 11/03/2023 11:03 AM EST Here for hospital follow up Was admitted with orthostatic hypotension Metoprolol and nifedipine were held Had some stomach pain and back pain, seemed like retaining fluid On peritoneal dialysis since [place] Feels just about back to baseline now. Current Outpatient Medications Medication Sig Dispense Refill Lovastatin 10 MG Oral Tablet Take 1 Tablet by mouth in the morning. 90 Tablet 3 cycloSPORINE Modified 25 MG Oral Capsule Take 2 capsules in the morning and 2 capsules in the evening 360 Capsule 3 Febuxostat 80 MG Oral Tablet (Uloric) Take 1 Tablet by mouth in the morning. 90 Tablet 3 Calcium Acetate (Phos Binder) 667 MG Oral Capsule (Phoslo) Take 3 Capsules by mouth with meals and snacks. 900 Capsule 3 Docusate Sodium 100 MG Oral Capsule (Colace) Take 1 Capsule by mouth in the morning and 1 Capsule before bedtime. oxyCODONE HCl 5 MG Oral Capsule (Oxy IR) Take 1 Capsule by mouth every 4 hours as needed for Pain, Severe. 12 Capsule 0 Gentamicin Sulfate 0.1 % External Cream Apply topically to affected area daily. Apply to PD exit catheter site daily after showering and cover with bandage 15 g 2 Dialyvite Oral Tablet Take 1 Tablet by mouth in the morning. 30 Tablet 11 Folic Acid 1 MG Oral Tablet Take 1 Tablet by mouth in the morning. (Patient not taking: Reported on11/03/2023) 90 Tablet 1 Cinacalcet HCl 30 MG Oral Tablet (Sensipar) Take 1 Tablet by mouth in the morning. (Patient not taking: Reported on 11/03/2023) 90 Tablet 3 Current Facility-Administered Medications Medication Dose Route Frequency Provider Last Rate Last Admin Vancomycin (Vancocin) (100 mg/mL) dilution 2,000 mg 2 g PD fluid Once Akosua Lopez MD cefepime (Maxipime) (160 mg/mL) inj dilution 1 g 1 g PD fluid Once Akosua Lopez MD BP 118/62 | Pulse 125 | Temp 36.8 C (98.2 F) (Infrared ) | Resp 16 | Wt 125.2 kg (276 lb) | SpO2 98% | BMI 39.60 kg/m | BSA 2.49 m General- alert, no distress HEENT- normocephalic, conjunctivae clear, no lymphadenopathy Heart- regular, no ectopy Lungs- CTA, no added sounds, good air movement Abd- soft, nontender Ext- nontender, no edema A/P- ESRD- on peritoneal dialysis; f/u with nephrology Stenosis/failure of allograft- unchanged HFpEF- mild; stable Immunosuppression- unchanged Htn- controlled off meds Gout- inactive Wegeners granulomatosis with renal involvementt- unchanged Tomer Garner MD 11/03/2023 documented in this encounter Nursing Notes * Madalyn Galvan LPN - 11/03/2023 10:54 AM EST Patient has been identified by name and date of . Pt here for hosp follow up visit Dialysis today at 1 pm documented in this encounter Plan of Treatment Upcoming Encounters Date Type Department Care Team (Late st Contact Info) Description 11/03/2023 1:00 PM EST Office Visit Home Dialysis [address] [phone] [facility] Peritoneal Dialysis [address] [facility] [place] [address] 11/07/2023 10:00 AM EST Telemedicine Sleep Disorders Medicine [facility] [address] [place] [id number] Roxana Jewell PA-C [address] [place] [address] 11/10/2023 8:00 AM EST Treatment Home Dialysis [address] [phone] Nurse, [employer] [address] [place] [address] 11/10/2023 1:00 PM EST Nurse Only Home Dialysis Ham[address] [phone] Nurse, [employer] [address] [place] [address] 12/04/2023 1:00 PM EDT Office Visit Home Dialysis Ham[address]ah [address] [phone] [facility], Peritoneal Dialysis [address] [place] [address] 12/11/2023 8:00 AM EDT Treatment Home Dialysis Ham[address], [place] [address] Nurse, [employer] [address], [place] [address] 12/11/2023 1:00 PM EDT Nurse Only Home Dialysis [address], [place] [phone] Nurse, [employer] [facility], [place] [address] 12/26/2023 1:00 PM EDT Office Visit Home Dialysis [address], [place] [address] [facility], Peritoneal Dialysis [address] [place] [facility] [place] [address] 01/10/2024 8:00 AM EDT Treatment Home Dialysis Hamz[address], [place] [phone] Nurse, [employer] [address], [place] [address] 01/10/2024 1:00 PM EDT Nurse Only Home Dialysis [address], [place] [phone] Nurse, [employer] [address], [place] [address] 02/08/2024 1:00 PM EDT Office Visit Home Dialysis Ham[address], [place] [address] [facility], Peritoneal Dialysis [address] [place] [facility] [place] [address] 02/10/2024 8:00 AM EDT Treatment Home Dialysis [address] [place], [place] [address] Nurse, [address] [employer] [address] [place] [address] 02/12/2024 1:00 PM EDT Nurse Only Home Dialysis [address], [place] [address] Nurse, [address] [place] [address] 03/05/2024 1:00 PM EDT Office Visit Home Dialysis [address] [place] [address] [facility], Peritoneal Dialysis [address] [place] [address] 03/11/2024 8:00 AM EDT Treatment Home Dialysis Ham[address], [place] [phone] Nurse, [address], [place] [address] 03/11/2024 1:00 PM EDT Nurse Only Home Dialysis Ham[address], [place] [phone] Nurse, [address] [employer] [address] [place] [address] 03/19/2024 1:00 PM EDT Office Visit Home Dialysis [address], [place] [address] [facility], Peritoneal Dialysis [address] [place] [address] 04/11/2024 8:00 AM EDT Treatment Home Dialysis Ham[address], [place] [address] Nurse, [address] [employer] [address] [place] [address] 04/11/2024 1:00 PM EDT Nurse Only Home Dialysis [address] [place] [address] Nurse, [address] [employer] [address], [place] [address] 04/29/2024 1:00 PM EDT Office Visit Home Dialysis [address], [place] [address] [facility], Peritoneal Dialysis [address] [place] [address] 05/12/2024 8:00 AM EDT Treatment Home Dialysis Ham[address], [place] [phone] Nurse, [address], [place] [address] 05/14/2024 1:00 PM EDT Nurse Only Home Dialysis [address], [place] [address] Nurse, [address] [employer] [address], [place] [address] 06/07/2024 1:00 PM EDT Office Visit Home Dialysis Ham[address], [place] [address] [facility] Peritoneal Dialysis [address] [place] [facility] [place] [address] 06/11/2024 8:00 AM EDT Treatment Home Dialysis Ham[address], [place] [address] Nurse, [address] [employer] [address] [place] [address] 06/11/2024 1:00 PM EDT Nurse Only Home Dialysis [address], [place] [address] Nurse, [address] [employer] [address] [place] [address] 06/25/2024 1:00 PM EDT Office Visit Home Dialysis Ham[address], [place] [address] [facility], Peritoneal Dialysis [address] [facility], [place] [address] 07/12/2024 8:00 AM EDT Treatment Home Dialysis Hamz[address], [place] [address] Nurse, [address] [employer] [address], [place] [address] 07/12/2024 1:00 PM EDT Nurse Only Home Dialysis Ham[address], [place] [phone] Nurse, [address] [facility] [address], [place] [address] 07/22/2024 1:00 PM EST Office Visit Home Dialysis [address], [place] [address] [facility] Peritoneal Dialysis [address] [facility] [place], [place] [address] 08/11/2024 8:00 AM EST Treatment Home Dialysis [address], [place] [address] Nurse, [address] [employer] [address], [place] [address] 08/12/2024 1:00 PM EST Nurse Only Home Dialysis [address], [place] [address] Nurse, [address] [employer] [address] [place] [address] 08/20/2024 1:00 PM EST Office Visit Home Dialysis [address], [place] [address] [facility], Peritoneal Dialysis [address] [facility] [place], [place] [address] Health Maintenance Due Date Last Done Comments [...] disease (HCC)- Primary End stage renal disease Stenosis of other vascular prosthetic devices, implants and grafts, initial encounter (HCC) 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) Renal dialysis status Diastolic congestive heart failure, unspecified HF chronicity (HCC) Immunosuppression (HCC) Unspecified disorder of immune mechanism Hypertensive chronic kidney disease with stage 5 chronic kidney disease or end stage renal disease (HCC) Chronic gout without tophus, unspecified cause, unspecified site Baldo's granulomatosis with renal involvement (HCC) Baldo's granulomatosis Hypertension, unspecified type documented in this encounter Advance Directives Latest [...] Advance Directives occurred with: Patient Care Teams Route Service Representative Relationship Specialty Start Date End Date Tomer Garner MD [address] [facility] [place] [address] PCP - General 09/19/02 documented as of this encounter"
--- OUTSIDE RECORDS SUMMARY | 2024-03-17 14:28 | External Medical Summary | Summary of Care ---
Author Name Unknown Organization [facility] Address [address] [facility] [place] [address] Phone [phone] Care Team Providers Care Concrete Pourer Name Role Phone Tomer Garner MD Primary Care Provider Encounter Details Date Type Department Care Team (Late st Contact Info) Description 11/02/2023 4:30 PM EST Nurse Only Home Dialysis Clau [...] (Oral) 1980,04/11 Pneumococcal Conjugate Vacci ne, 20-valent ([id number]) 11/17/2022 Seasonal Influenza, PF, 6 M & [...] Sign Reading Time Taken Comments Blood Pressure 124/74 11/02/2023 4:32 PM EST Pulse 90 11/02/2023 4:32 PM EST Temperature 36.6 C (97.8 F) 11/02/2023 4:32 PM ES T Respiratory Rate - - Oxygen Saturation - [...] Progress Notes * Sophia Hernandez, RN - 11/03/2023 11:27 AM EST Pt arrived to [facility] clinic for wet contamination protocol. PT transfer set change completed Lot # [id number] Exp date 08/02/2027 PT PD fluid cell count and culture sent. PT instilled per order with IP antibiotics in 1500 ml of 1.5 dianeal solution and instructed to letdwell for 6 hours. Pt reports mild to mod abd pain. Dr. Lopez made aware. Pt reports no fevers, sob, or chest pain.PD exit site clean and dry with no drainage. PT cell count resulted on 11/03/21. No growth from culture Cell count within normal ranges No diagnostic or clinical signs of infection post contamination Dr. Lopez aware and evaluated pt on 11/03/23 documented in this encounter Plan of Treatment Upcoming Encounters Date Type Department Care Team (Late st Contact Info) Description 11/07/2023 10:00 AM EST Telemedicine Sleep Disorders Medicine Medical [facility] [address] [facility] [address] [address] Roxana Jewell PA-C [address] [place] [address] 11/10/2023 8:00 AM EST Treatment Home Dialysis [address] [place] [address] Nurse, Lance Lopez [facility] [place] [place], [place] [address] 11/10/2023 1:00 PM EST Nurse Only Home Dialysis [address] [place], [place] [phone] Nurse, Lance [address] [employer] [address] [place], [place] [address] 12/04/2023 1:00 PM EDT Office Visit Home Dialysis Clau [address] [place], [place] [address] [facility], Peritoneal Dialysis [address] [place] [address] 12/11/2023 8:00 AM EDT Treatment Home Dialysis Clau [address] [place], [place] [phone] Nurse, Lance [employer] [facility] [address] [place], [place] 12/11/2023 1:00 PM EDT Nurse Only Home Dialysis [address] [place], [place] [phone] Nurse, Lance Lopez [facility] [address] [place], [place] [address] 12/26/2023 1:00 PM EDT Office Visit Home Dialysis Clau [address] [place], [place] [phone] [facility], Peritoneal Dialysis [address] [place] [facility] [place] [address] 01/10/2024 8:00 AM EDT Treatment Home Dialysis Clau [address] [place], [place] [phone] Nurse, Lance [employer] [address] [place], [place] [address] 01/10/2024 1:00 PM EDT Nurse Only Home Dialysis [address] [place], [place] [address] Nurse, Lance [address] [employer] [address] [place] [address] 02/08/2024 1:00 PM EDT Office Visit Home Dialysis Clau [address] [place] [address] [facility], Peritoneal Dialysis [address] [place] [address] 02/10/2024 8:00 AM EDT Treatment Home Dialysis Clau [address] [place], [place] [phone] Nurse, Lance [address] [employer] [address] [place], [place] 02/12/2024 1:00 PM EDT Nurse Only Home Dialysis Clau [address] [place], [place] [phone] Nurse, Lance [address] [facility] [address] [place], [place] [address] 03/05/2024 1:00 PM EDT Office Visit Home Dialysis Clau [address] [place] [address] [facility], Peritoneal Dialysis [address] [place] [address] 03/11/2024 8:00 AM EDT Treatment Home Dialysis Clau [address] [place], [place] [phone] Nurse, Lance [address] [employer] [address] [place] [address] 03/11/2024 1:00 PM EDT Nurse Only Home Dialysis Clau [address] [place], [place] [phone] Nurse, Lance [address] [employer] [address] [place] [address] 03/19/2024 1:00 PM EDT Office Visit Home Dialysis Clau [address] [place], [place] [address] [facility], Peritoneal Dialysis [address] [place] [address] 04/11/2024 8:00 AM EDT Treatment Home Dialysis Clau [address] [place], [place] [address] Nurse, [address] [facility] [address] [place], [place] [address] 04/11/2024 1:00 PM EDT Nurse Only Home Dialysis Clau [address] [place] [address] Nurse, [address] [facility] [address] [place], [place] [address] 04/29/2024 1:00 PM EDT Office Visit Home Dialysis Clau [address] [place], [place] [address] [facility], Peritoneal Dialysis [address] [place] [address] 05/12/2024 8:00 AM EDT Treatment Home Dialysis Clau [address] [place], [place] [phone] Nurse, Lance [address] [employer] [address] [place] [address] 05/14/2024 1:00 PM EDT Nurse Only Home Dialysis Clau [address] [place], [place] [address] Nurse, [address] [employer] [address] [place] [address] 06/07/2024 1:00 PM EDT Office Visit Home Dialysis Clau [address] [place], [place] [address] [facility], Peritoneal Dialysis [address] [place] [address] 06/11/2024 8:00 AM EDT Treatment Home Dialysis Clau [address] [place], [place] [address] Nurse, [address] [employer] [address] [place], [place] [address] 06/11/2024 1:00 PM EDT Nurse Only Home Dialysis Clau [address] [place], [place] [address] Nurse, [address] [employer] [address] [place], [place] [address] 06/25/2024 1:00 PM EDT Office Visit Home Dialysis Clau [address] [place], [place] [address] [facility], Peritoneal Dialysis [address] [place] [address] 07/12/2024 8:00 AM EDT Treatment Home Dialysis Clau [address] [place], [place] [address] Nurse, [address] [employer] [address] [place], [place] [address] 07/12/2024 1:00 PM EDT Nurse Only Home Dialysis Clau [address] [place], [place] [address] Nurse, [address] [employer] [address] [place] [address] 07/22/2024 1:00 PM EST Office Visit Home Dialysis Clau [address] [place], [place] [address] [facility], Peritoneal Dialysis [address] [place] [facility] [place] [address] 08/11/2024 8:00 AM EST Treatment Home Dialysis Clau [address] [place], [place] [address] Nurse, [address] [employer] [address] [place], [place] [address] 08/12/2024 1:00 PM EST Nurse Only Home Dialysis Clau [address] [place] [address] [address] Nurse, [address] [facility] [address] [place] [address] [phone] 08/20/2024 1:00 PM EST Office Visit Home Dialysis Clau [address] [place] [address] [phone] [facility], Peritoneal Dialysis [address] [place] [phone] Pending Results Name Type Priority Associated Diagnoses Date /Time CULTURE, BODY FLUID, AEROBIC Lab Routine ESRD on peritoneal dialysis (HCC) 11/02/2023 4:42 PM EST Health Maintenance Due Date Last [...] Procedure Name Priority Date/Time Associated Diagnosis Comments MANUAL DIFFERENTIAL, BODY FLUID Routine 11/02/2023 4:42 PM EST ESRD on peritoneal dialysis (HCC) CULTURE, BODY FLUID, AEROBIC Routine 11/02/2023 4:42 PM EST ESRD on peritoneal dialysis (HCC) CELL COUNT WITH DIFFERENTIAL, BODY FLUID Routine 11/02/2023 4:42 PM EST ESRD on peritoneal dialysis (HCC) CELL COUNT, BODY FLUID Routine 11/02/2023 4:42 PM EST ESRD on peritoneal dialysis (HCC) documented in this encounter Results * MANUAL DIFFERENTIAL, BODY FLUID (11/02/2023 4:42 PM EST) Total Nucleated Cell Count, Fluid 10 cells/uL 11/02/2023 8:26 PM EST [facility] Neutrophils % 28 % 11/02/2023 8:26 PM EST [facility] Lymphocytes % 44 % 11/02/2023 8:26 PM EST [facility] Monocytes % 27 % 11/02/2023 8:26 PM EST [facility] Eosinophils % 1 % 11/02/2023 8:26 PM EST [facility] Absolute Neutrophils 2.80 cells/uL 11/02/2023 8:26 PM EST [facility] Absolute Lymphocytes 4.40 cells/uL 11/02/2023 8:26 PM EST [facility] Absolute Monocytes 2.70 cells/uL 11/02/2023 8:26 PM EST [facility] Absolute Eosinophils 0.10 cells/uL 11/02/2023 8:26 PM EST [facility] Body Fluid Specimen from wound / Unknown Non-blood Collection / Unknown 11/02/2023 4:42 PM EST 11/02/2023 5:09 PM EST Narrative [facility] - 11/02/2023 8:26 PM EST Some reference ranges and other method performance specifications have not been established for this fluid. The test results must be integrated into the clinical context for interpretation. Akosua Lopez MD LAB FLUID AND S TOOL ORDERABLES Performing Organization Address [facility] Co de Phone Number LABORATORY [facility] [address] [place] [address] * CELL COUNT, BODY FLUID (11/02/2023 4:42 PM EST) Clarity, Fluid Clear Clear 11/02/2023 8:26 PM EST [facility] Color, Fluid Colorless Straw, Yellow, Colorless 11/02/2023 8:26 PM EST [facility] Total Nucleated Cell Count, Fluid 10 cells/uL 11/02/2023 8:26 PM EST [facility] RBC, Fluid 10 cells/uL 11/02/2023 8:26 PM EST [facility] Body Fluid Specimen from wound / Unknown Non-blood Collection / Unknown 11/02/2023 4:42 PM EST 11/02/2023 5:09 PM EST Narrative [facility] - 11/02/2023 8:26 PM EST Some reference ranges and other method performance specifications have not been established for this fluid. The test results must be integrated into the clinical context for interpretation. Akosua Lopez MD LAB FLUID AND S TOOL ORDERABLES Performing Organization Address [facility] de Phone Number LABORATORY [address] [address] documented in this encounter Visit Diagnoses Diagnosis ESRD on peritoneal dialysis (HCC)- Primary End stage renal disease documented in this encounter Administered Medications Inactive Administered Medications - up to 3 most recent administrations Medication Order MAR Action Action Date Dose Rate Site cefepime (Maxipime) (160 mg/mL) inj dilution 1 g 1 g, PD fluid, ONCE, On Mon11/03/23 at 0945, For 1 dose Given 11/02/2023 4:30 PM EST 1 g Vancomycin (Vancocin) (100 mg/mL) dilution 2,000 mg 2,000 mg (2 g), PD fluid, ONCE, On Mon11/03/23 at 0945, For 1 dose Given 11/02/2023 4:30 PM EST 2,000 mg documented in this encounter Advance Directives Latest [...] Advance Directives occurred with: Patient Care Teams Concrete Pourer Relationship Specialty Start Date End Date Tomer Garner MD [address] [phone] PCP - General 09/19/02 documented as of this encounter
--- OUTSIDE RECORDS SUMMARY | 2024-03-17 14:28 | External Medical Summary | Summary of Care ---
Author Name Unknown Organization [facility] Address [address] [place] [address] Phone [phone] Care Team Providers Care Courtroom Clerk Name Role Phone Tomer Garner MD Primary Care Provider Reason for Visit * Reason Onset Date Comments Advice 10/28/2023 Encounter Details Date Type Department Care Team ([facility] st Contact Info) Description 10/28/2023 Telephone [facility] [address] [place] [address] Akosua Lopez MD [address] [place] [address] Advice Allergies No known active [...] morning. 30 Tablet 11 10/27/2023 4 Discontinued documented as of this encounter [...] (Oral) 1980,04/11 Pneumococcal Conjugate Vacci ne, 20-valent ([id number]) 11/17/2022 Seasonal Influenza, PF, 6 M & [...] Telephone Encounter - Sophia Hernandez RN - 11/01/2023 11:12 AM EST PD nurse spoke to patient today on 11/01/23 to see how [facility] treatment had been night of 10/31/23. PT reported at 1100 that he had just finished treatments and total UF was 1099 ml. PT will continue to use 1.5% Dianeal solution for CAPD exchanges throughout the day. PT BP afternoon check on 10/31/23 was 154/99. PT reports no symptoms of dizziness, nausea or lightheadedness. Pt reports "felling well today" PT will continue to be monitored and called by [facility] clinic daily at this time to monitor BP changes, symptoms, and UF output. PT expressed understanding to call [facility] clinic or go to ED with any new symptoms of dizziness, low BP, lightheadedness or nausea. * Telephone Encounter - Karrie Russo TECH - 11/01/2023 10:42 AM EST Spoke with pt to remind them of their clinic visit with dr lopez on Monday11/03/23. * Telephone Encounter - Akosua Lopez MD - 10/28/2023 11:10 AM EST Called Chandan last night and this morning to check on him. His BP is better 100/56 but he is tachycardic 110. He denies fevers and has clear effluent. I am concerned with him reporting right rib cage pain and back pain last night although he reports it is better after taking an OxyContin he had at home. Please see yesterday;s documentation for more context. Given ongoing symptomatic hypotension despite withdrawal of anit-HTN meds, increase in oral fluid and decrease in PD prescription in last 24 h, I recommended to Chandan to come to ER for eval. Patient with low transport PD membrane as per recent PET (recent transition to PD), low residual fxn. PD prescription recently adjusted to transport status with ongoing improvement of clearances and brisk UF (typical of low transporters) BASELINE CREATININE WHILE STILL ON HD 09/20/23 13:25 BUN Creatinine 16.8 (H) CREATININE TREND SINCE TRANSITION TO PD WITH ONGOING IMPROVEMENT : 10/17/23 12:42 10/18/23 11:47 10/19/23 12:10 10/23/23 14:49 10/27/23 15:14 92 (H) 90 (H) 93 (H) 68 (H) 59 (H) 29.8 (H) 29.2 (H) 29.7 (H) 26.4 (H) 22.6 (H) REC: I recommend infectious work up (patient will come to ER with abdomen full with dialysate so all is needed is to drain for cell count and culture) Would also consider 2 D echo to rule out pericarditis. (Hoping not the case given ongoing clearanceimprovement but needs considered and ruled out) Cause of right upper quadrant pain/back pain ? Note with his PD prescription he is getting remarkable UF of about 2.5- 3 liters a day. May need IVF KCL supplementation to be continued. I have updated inpatient team Dr. Salazar and Dr. Ruthie Lopez MD documented in this encounter Plan of Treatment Upcoming Encounters Date Type Department Care Team (Late st Contact Info) Description 11/03/2023 10:40 AM EST Office Visit [facility] [address] [place] [address] Tomer Garner MD [address] [place] [address] 11/03/2023 1:00 PM EST Office Visit Home Dialysis [address] [place] [address] [facility], Peritoneal Dialysis [address] [place] [address] 11/07/2023 10:00 AM EST Telemedicine Sleep Disorders Medicine [facility] [address] [place] [address] [address] [place], [place] [phone] Roxana Jewell PA-C [address] [place] [address] 11/10/2023 8:00 AM EST Treatment Home Dialysis [address] [place], [place] [phone] Nurse, Lance [employer] [facility] [address] [place], [place] [address] 11/10/2023 1:00 PM EST Nurse Only Home Dialysis [address] [place], [place] [phone] Nurse, [employer] [address] [place], [place] 12/04/2023 1:00 PM EDT Office Visit Home Dialysis [address] [place], [place] [phone] [facility] Peritoneal Dialysis [address] [place] [address] 12/11/2023 8:00 AM EDT Treatment Home Dialysis [address] [place], [place] [phone] Nurse, [employer] [address] [place] [address] 12/11/2023 1:00 PM EDT Nurse Only Home Dialysis [address] [place], [place] [phone] Nurse, [employer] [address] [place] [address] 12/26/2023 1:00 PM EDT Office Visit Home Dialysis [address] [place], [place] [address] [facility] Peritoneal Dialysis [address] [place] [address] 01/10/2024 8:00 AM EDT Treatment Home Dialysis [address] [place] [address] Nurse[address] [employer] [address] [place] [address] 01/10/2024 1:00 PM EDT Nurse Only Home Dialysis [address] [place], [place] [address] Nurse, [address] [employer] [address] [place] [address] 02/08/2024 1:00 PM EDT Office Visit Home Dialysis [address] [place] [address] [facility] Peritoneal Dialysis [address] [place] [address] 02/10/2024 8:00 AM EDT Treatment Home Dialysis [address] [place], [place] [address] Nurse, Lance [employer] [address] [place] [address] 02/12/2024 1:00 PM EDT Nurse Only Home Dialysis [place] [address] Nurse, Lance Lopez [address] [address] [place] [address] 03/05/2024 1:00 PM EDT Office Visit Home Dialysis [address] [place] [address] [facility] Peritoneal Dialysis [address] [place] [address] 03/11/2024 8:00 AM EDT Treatment Home Dialysis [address] [place] [address] Nurse, [address] [facility] [address] [place] [address] 03/11/2024 1:00 PM EDT Nurse Only Home Dialysis [address] [place] [address] Nurse, [address] [employer] [address] [place], [place] [address] 03/19/2024 1:00 PM EDT Office Visit Home Dialysis [address] [place], [place] [address] [facility], Peritoneal Dialysis [address] [place] [address] 04/11/2024 8:00 AM EDT Treatment Home Dialysis [address] [place], [place] [phone] Nurse, Lance [address] [employer] [address] [place], [place] [address] 04/11/2024 1:00 PM EDT Nurse Only Home Dialysis [address] [place], [place] [phone] Nurse, Lance [address] [employer] [address] [place], [place] [address] 04/29/2024 1:00 PM EDT Office Visit Home Dialysis [address] [place], [place] [address] [facility] Peritoneal Dialysis [address] [facility] [place] [address] 05/12/2024 8:00 AM EDT Treatment Home Dialysis [address] [place], [place] [address] Nurse, [address] [employer] [address] [place] [address] 05/14/2024 1:00 PM EDT Nurse Only Home Dialysis [address] [place] [address] Nurse, [address] [employer] [address] [place], [place] [address] 06/07/2024 1:00 PM EDT Office Visit Home Dialysis [address] [place], [place] [address] [facility], Peritoneal Dialysis [address] [place] [address] 06/11/2024 8:00 AM EDT Treatment Home Dialysis [address] [place], [place] [phone] Nurse, [employer] [facility] [address] [place], [place] [address] 06/11/2024 1:00 PM EDT Nurse Only Home Dialysis [address] [place], [place] [phone] Nurse, [employer] [address] [place], [place] 06/25/2024 1:00 PM EDT Office Visit Home Dialysis [address] [place], [place] [address] [facility] Peritoneal Dialysis [address] [facility] [place] [address] 07/12/2024 8:00 AM EDT Treatment Home Dialysis [address] [place], [place] [phone] Nurse, [employer] [address] [place], [place] [address] 07/12/2024 1:00 PM EDT Nurse Only Home Dialysis [address] [place], [place] [address] Nurse, Lance [employer] [address] [place], [place] [address] 07/22/2024 1:00 PM EST Office Visit Home Dialysis [address] [place], [place] [address] [facility], Peritoneal Dialysis [address] [facility] [place], [place] [address] 08/11/2024 8:00 AM EST Treatment Home Dialysis [address] [place], [place] [address] Nurse, Lance [employer] [address] [place], [place] [address] 08/12/2024 1:00 PM EST Nurse Only Home Dialysis [address] [place], [place] [address] Nurse, [employer] [address] [place], [place] [address] 08/20/2024 1:00 PM EST Office Visit Home Dialysis [address] [place], [place] [phone] [facility], Peritoneal Dialysis [address] [facility] [place] [address] Health Maintenance Due Date Last Done Comments [...] Not on filedocumented as of this encounter Additional Health Concerns Infection Onset [...] Advance Directives occurred with: Patient Care Teams Courtroom Clerk Relationship Specialty Start Date End Date Tomer Garner MD [address] [facility] [place] [address] PCP - General 09/19/02 documented as of this encounter
--- OUTSIDE RECORDS SUMMARY | 2024-03-17 14:28 | External Medical Summary ---
Author Name Unknown Address Unknown Organization [id number]:LABORATORY C - [address] [facility] [address] [facility] [address] Laboratory Report Ordering Provider Test Date Status MARI BOB 11/02/2023 16:42:40 Final Some reference ranges and ot her method performance specifications have not been established for this fluid. The test results must be integrated into the clinical context for interpretation. Observation Date Value Abnormality Reference (Units ) Status SYNC TOTAL NUCLEATED CELLS FLUID 11/02/2023 16:42:40 10 (cells/uL) Final Neutrophils/100 leukocytes in Body fluid by Manual count 11/02/2023 16:42:40 28 (%) Final Lymphocytes, Body Fluid 11/02/2023 16:42:40 44 (%) Final Monocytes/100 leukocytes in Body fluid by Manual count 11/02/2023 16:42:40 27 (%) Final Eosinophils/100 leukocytes in Body fluid by Manual count 11/02/2023 16:42:40 1 (%) Final SEGMENTED NEUTROPHILS (1000/UG) IN BODY FLUID ABS 11/02/2023 16:42:40 2.80 (cells/uL) Final LYMPHOCYTES (1000/UG) IN BODY FLUID ABS 11/02/2023 16:42:40 4.40 (cells/uL) Final MONOCYTES(1000/UG) IN BODY FLUID ABS 11/02/2023 16:42:40 2.70 (cells/uL) Final EOSINOPHILS (1000/UG) IN BODY FLUID ABS 11/02/2023 16:42:40 0.10 (cells/uL) Final Performing Location [facility] - [address] [facility] [address] [facility] [address]
--- OUTSIDE RECORDS SUMMARY | 2024-03-17 14:28 | External Medical Summary | Summary of Care ---
Author Name Unknown Organization [facility] Address [address] [facility] [place] [address] Phone [phone] Care Team Providers Care Tier Lift Truck Operator Name Role Phone Tomer Garner MD Primary Care Provider [phone] Reason for Visit * Reason Onset Date Comments Other 11/02/2023 PT wet contamina tion Encounter Details Date Type Department Care Team (Late st Contact Info) Description 11/02/2023 Telephone Home Dialysis [address] [address] [place] [address] Sophia Hernandez, RN Other (PT wet contamination ) Allergies No known active allergiesdocumented as of this encounter (statuses as of 11/02/2023) Medications Medication Sig Dispensed Refills Start Date [...] as of this encounter (statuses as of 11/02/2023) Active Problems Problem Noted Date Diagnosed Date [...] as of this encounter (statuses as of 11/02/2023) Resolved Problems Problem Noted Date Diagnosed Date Resolved Date Dyslipidemia, goal to be determined 08/27/2009 11/21/2013 Overview: Per Lipid Taxonomy. PURE HYPERCHOLESTEROLEM 04/25/200208/11 Overview: Per Lipid Taxonomy. 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 1 Hemoptysis 04/11/1996 08/11/1996 Overview: ICD-10 update of inactive term documented as of this encounter (statuses as of 11/02/2023) Immunizations Name Administration Dates Next Due COVID-19 mRNA, LNP-s, No Pre serve, 2-Dose Series (Moderna) 11/23/2020,10/18/2020 DTP Vaccine 1981,1981,1981 HEP B - Hepatitis B (Dialysis/Immumocomp Pt) 05/02/2023,04/04/2023 MMR - Measles/Mumps/Rubella Vaccine 05/11/1982 OPV - Polio Virus Vaccine (Oral) 1981,04/11 Pneumococcal Conjugate Vacci ne, 20-valent ([id number]) 11/17/2022 Seasonal Influenza, PF, 6 M & [...] Telephone Encounter - Sophia Hernandez RN - 11/02/2023 3:16 PM EST PD nurse called pt to check on [facility]CP[facility] treatments and fluid status since recent hospital discharge. PTreported treatment went well but he had "severe stomach pain" the night of 11/01/23, and today on 11/02/23. PT also reported that "during recent hospital admission, pt remembers floor nurse opening hisPD catheter and attempting to connect it to a CAPD bag without removing the yellow cap on the CAPD bag. PT reminded nurse to remove cap and then was connected and exchange performed" Neither PT or floor nurse did not report this and 11/02/23 was the first notification of this event PD nurse let patient know this was a wet contamination. Dr. Lopez made aware. Per wet contamination protocol and due to suspicious abd pain, pain is coming to [facility] clinic today for fluid cell count and culture as well as transfer set exchange, with IP antibiotics. documented in this encounter Plan of Treatment Upcoming Encounters Date Type Department Care Team ([facility] st Contact Info) Description 11/03/2023 10:40 AM EST Office Visit [facility] [address] [place] [address] Tomer Garner MD [address] [phone] 11/03/2023 1:00 PM EST Office Visit Home Dialysis [address] [place] [phone] Mdc, Peritoneal Dialysis [address] [place] [address] 11/07/2023 10:00 AM EST Telemedicine Sleep Disorders Medicine [facility] [address] [place] [address] [place] [address] Roxana Jewell PA-C [address] [place] [address] 11/10/2023 8:00 AM EST Treatment Home Dialysis [address] [place] [phone] Nurse[place] [place] [address] 11/10/2023 1:00 PM EST Nurse Only Home Dialysis Clau [address] [phone] Nurse, [address] [place] [address] [place] [address] 12/04/2023 1:00 PM EDT Office Visit Home Dialysis Clau [address] [place] [address] [facility], Peritoneal Dialysis [address] [place] [address] 12/11/2023 8:00 AM EDT Treatment Home Dialysis Clau [address], [place] [phone] Nurse, Lance [address], [place] 12/11/2023 1:00 PM EDT Nurse Only Home Dialysis Clau [address], [place] [phone] Nurse, Lance [address], [place] [address] 12/26/2023 1:00 PM EDT Office Visit Home Dialysis Clau [address] [place] [address] [facility], Peritoneal Dialysis [address] [place] [address] 01/10/2024 8:00 AM EDT Treatment Home Dialysis Clau [address], [place] [phone] Nurse, [address] [place] [address] [place] [address] 01/10/2024 1:00 PM EDT Nurse Only Home Dialysis Clau [address], [place] [phone] Nurse, [address] [place] [address] [place] [address] 02/08/2024 1:00 PM EDT Office Visit Home Dialysis Clau [address], [place] [address] [facility], Peritoneal Dialysis [address] [place] [address] 02/10/2024 8:00 AM EDT Treatment Home Dialysis Clau [address], [place] [address] Nurse, [address], [place] [address] 02/12/2024 1:00 PM EDT Nurse Only Home Dialysis [address] [place] [address] Nurse, [address] [place] [address] [place] [address] 03/05/2024 1:00 PM EDT Office Visit Home Dialysis Clau [address], [place] [address] [facility], Peritoneal Dialysis [address] [place] [address] 03/11/2024 8:00 AM EDT Treatment Home Dialysis Clau [address], [place] [phone] Nurse, Lance [address] [place] [address] 03/11/2024 1:00 PM EDT Nurse Only Home Dialysis Clau [address], [place] [address] Nurse, [address] [place] [address] [place] [address] 03/19/2024 1:00 PM EDT Office Visit Home Dialysis Clau [address], [place] [address] [facility], Peritoneal Dialysis [address] [place] [address] 04/11/2024 8:00 AM EDT Treatment Home Dialysis Cl[address] [place] [address] Nurse, [address] [place] [address], [place] [address] 04/11/2024 1:00 PM EDT Nurse Only Home Dialysis Clau [address], [place] [address] Nurse, [address] [place] [address], [place] [address] 04/29/2024 1:00 PM EDT Office Visit Home Dialysis Clau [address], [place] [address] [facility], Peritoneal Dialysis [address] [place] [address] 05/12/2024 8:00 AM EDT Treatment Home Dialysis Clau [address], [place] [address] Nurse, [address] [place] [address], [place] [address] 05/14/2024 1:00 PM EDT Nurse Only Home Dialysis Clau [address], [place] [address] Nurse, [address] [place] [address] [place] [address] 06/07/2024 1:00 PM EDT Office Visit Home Dialysis Clau [address] [place] [address] [facility], Peritoneal Dialysis [address] [facility] [place] [address] 06/11/2024 8:00 AM EDT Treatment Home Dialysis Clau [address], [place] [address] Nurse, [address] [place] [address] [place] [address] 06/11/2024 1:00 PM EDT Nurse Only Home Dialysis Clau [address] [place], [place] [address] Nurse, [address] [address], [place] [address] 06/25/2024 1:00 PM EDT Office Visit Home Dialysis Clau Lucas [address], [place] [address] [facility], Peritoneal Dialysis [address] [place] [address] 07/12/2024 8:00 AM EDT Treatment Home Dialysis Clau Lucas [address], [place] [phone] Nurse, [address] [place] [address], [place] [address] 07/12/2024 1:00 PM EDT Nurse Only Home Dialysis Clau [address], [place] [address] Nurse, [address] [place] [address] [place] [address] 07/22/2024 1:00 PM EST Office Visit Home Dialysis Clau [address] [place] [address] [facility], Peritoneal Dialysis [address] [place] [address] 08/11/2024 8:00 AM EST Treatment Home Dialysis Clau [address], [place] [address] Nurse, [address] [place] [address] [place] [address] 08/12/2024 1:00 PM EST Nurse Only Home Dialysis Clau [address], [place] [phone] Nurse, [address], [place] [address] 08/20/2024 1:00 PM EST Office Visit Home Dialysis Clau Lucas [address] [place] [address] Mdc, Peritoneal Dialysis [address] [facility] [place] [id number] Health Maintenance Due Date Last Done Comments [...] Advance Directives occurred with: Patient Care Teams Tier Lift Truck Operator Relationship Specialty Start Date End Date Tomer Garner MD [address] [place] [address] PCP - General 09/19/02 documented as of this encounter
--- OUTSIDE RECORDS SUMMARY | 2024-03-17 14:28 | External Medical Summary ---
Author Name Unknown Address Unknown Organization [id number] [place] [address] [facility] [address] Laboratory Report Ordering Provider Test Date Status MARI BOB 11/02/2023 16:42:40 Final Some reference ranges and ot her method performance specifications have not been established for this fluid. The test results must be integrated into the clinical context for interpretation. Observation Date Value Abnormality Reference (Units ) Status Clarity of Body fluid 11/02/2023 16:42:40 Clear Clear Final Color of Body fluid 11/02/2023 16:42:40 Colorless Straw, Yellow, Colorless Final Nucleated cells [#/volume] in Body fluid by Automated count 11/02/2023 16:42:40 10 (cells/uL) Final Erythrocytes [#/volume] in Body fluid by Automated count 11/02/2023 16:42:40 10 (cells/uL) Final Performing Location [facility] [place] [address] [facility] [address]
--- OUTSIDE RECORDS SUMMARY | 2024-03-17 14:28 | External Medical Summary | Summary of Care ---
Author Name Unknown Organization [facility] Address [address] [place] [address] Phone [phone] Care Team Providers Care Juvenile Justice Specialist Name Role Phone Tomer Garner MD Primary Care Provider Encounter Details Date Type Department Care Team (Late st Contact Info) Description 11/03/2023 1:00 PM EST Office Visit Home Dialysis Nathaniel [facility] [address] [place] [address] Mdc, Peritoneal Dialysis [address] [place] [address] 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 chronic [...] (Oral) 1981,04/11 Pneumococcal Conjugate Vacci ne, 20-valent ([id number]) 11/17/2022 Pneumococcal Polysaccharide PPV23 (Pneumovax) 02/03/2004 Seasonal [...] time. Dianeal used 1.5% average nightly UF 2761-7450 ml in 24 hr period Last [facility] 1.05 Kt/V Oct 2023, repeat in two weeks, dialysis prescription changed Transplant status active Reviewed process for ordering monthly dialysis supplies using the calendar provided: yes Reviewed contact phone numbers for the Peritoneal Dialysis supply company as well as the Dialysis clinic and the on-call nurse via the hospital regrinder operator: yes Questions Pt arrived for PD [...] Wang RDN, CSOWM, LDN Renal Dietitian [facility] [phone] 11/03/2023 4:20 PM * Karrie Russo TECH [...] 10:00 AM EST Telemedicine Sleep Disorders Medicine [facility] [address] [place] [address] Roxana Jewell PA-C [address] [place] [address] 11/10/2023 8:00 AM EST Treatment Home Dialysis Cl[address] [phone] Nurse, [address] [id number] 11/10/2023 1:00 PM EST Nurse Only Home Dialysis [address] [phone] Nurse, [place] [address] 12/04/2023 1:00 PM EDT Office Visit Home Dialysis Clau [address] [phone] Mdc, Peritoneal Dialysis [address] [facility] [place] [id number] 12/11/2023 8:00 AM EDT Treatment Home Dialysis Clau [address] [place] [address] Nurse, [address] [place] [address] [place] [address] 12/11/2023 1:00 PM EDT Nurse Only Home Dialysis Cl[address] [place], [place] [address] Nurse, [address] [place] [address] [place] [address] 12/26/2023 1:00 PM EDT Office Visit Home Dialysis Clau [address] [place] [address] [facility], Peritoneal Dialysis [address] [place] [address] 01/10/2024 8:00 AM EDT Treatment Home Dialysis Clau [address], [place] [phone] Nurse, [place] [address], [place] [address] 01/10/2024 1:00 PM EDT Nurse Only Home Dialysis Clau [address], [place] [phone] Nurse, [address] [place] [address] [place] [address] 02/08/2024 1:00 PM EDT Office Visit Home Dialysis Cl[address], [place] [address] [facility], Peritoneal Dialysis [address] [place] [place] [address] 02/10/2024 8:00 AM EDT Treatment Home Dialysis Cl[address], [place] [phone] Nurse, [address] [place] [address] [place] [address] 02/12/2024 1:00 PM EDT Nurse Only Home Dialysis [address] [place] [address] Nurse, [address] [place] [address] 03/05/2024 1:00 PM EDT Office Visit Home Dialysis Cl[address] [place] [address] Mdc, Peritoneal Dialysis [address] [place] [address] 03/11/2024 8:00 AM EDT Treatment Home Dialysis Cl[address], [place] [phone] Nurse, [address] [place] [address] 03/11/2024 1:00 PM EDT Nurse Only Home Dialysis Cl[address], [place] [phone] Nurse, [address] [place] [address] [place] [address] 03/19/2024 1:00 PM EDT Office Visit Home Dialysis Cl[address] [place] [address] [facility], Peritoneal Dialysis [address] [place] [address] 04/11/2024 8:00 AM EDT Treatment Home Dialysis Cl[address] [place] [address] Nurse, [address] [place] [address] [place] [address] 04/11/2024 1:00 PM EDT Nurse Only Home Dialysis [address] [place] [address] Nurse, [address] [place] [address] [place] [address] 04/29/2024 1:00 PM EDT Office Visit Home Dialysis [address] [place] [address] Mdc, Peritoneal Dialysis [address] [place] [address] 05/12/2024 8:00 AM EDT Treatment Home Dialysis Cl[address], [place] [address] Nurse, [address], [place] [address] 05/14/2024 1:00 PM EDT Nurse Only Home Dialysis [address], [place] [phone] Nurse, Lance[address], [place] [address] 06/07/2024 1:00 PM EDT Office Visit Home Dialysis [address], [place] [address] [facility], Peritoneal Dialysis [address] [place] [address] 06/11/2024 8:00 AM EDT Treatment Home Dialysis Clau [address], [place] [address] Nurse, [address], [place] [address] 06/11/2024 1:00 PM EDT Nurse Only Home Dialysis [address], [place] [address] Nurse, Lance [employer] [address], [place] [address] 06/25/2024 1:00 PM EDT Office Visit Home Dialysis Cl[address], [place] [address] Mdc, Peritoneal Dialysis [address] [place] [address] 07/12/2024 8:00 AM EDT Treatment Home Dialysis [address] [place] [address] Nurse, Lance [address], [place] [address] 07/12/2024 1:00 PM EDT Nurse Only Home Dialysis [address], [place] [address] Nurse, [address] [place], [place] [address] 07/22/2024 1:00 PM EST Office Visit Home Dialysis [address], [place] [phone] [facility], Peritoneal Dialysis [address] [facility] [place] [address] 08/11/2024 8:00 AM EST Treatment Home Dialysis [address], [place] [address] Nurse, [address], [place] [address] 08/12/2024 1:00 PM EST Nurse Only Home Dialysis [address], [place] [address] Nurse, Lance [address], [place] [address] 08/20/2024 1:00 PM EST Office Visit Home Dialysis [address], [place] [address] [facility], Peritoneal Dialysis [address] [facility] [place] [address] Health Maintenance Due Date Last Done Comments [...] BLOOD ORDER [facility] [address] [place] [address] documented in this encounter Visit Diagnoses Diagnosis [...] Advance Directives occurred with: Patient Care Teams Juvenile Justice Specialist Relationship Specialty Start Date End Date Tomer Garner MD [address] [place] [address] PCP - General 09/19/02 documented as of this encounter
--- OUTSIDE RECORDS SUMMARY | 2024-03-17 14:29 | External Medical Summary ---
Author Name Unknown Address Unknown Organization K01:[facility] [place] [facility] [address] Laboratory Report Ordering Provider Test Date Status MADDY,PINO 10/31/2023 06:39:00 Final Observation Date Value Abnormality Reference (Units ) Status WBC, Total 10/31/2023 06:39:00 10.87 Above high normal 4.00-10.80 (K/uL) Final RBC 10/31/2023 06:39:00 2.98 4.50-5.25 (M/uL) Final Hemoglobin 10/31/2023 06:39:00 8.9 Below low normal 14.0-16.8 (g/dL) Final HCT 10/31/2023 06:39:00 26.3 Below low normal 40.0-48.4 (%) Final MCV 10/31/2023 06:39:00 88.3 82.0-99.5 (fL) Final MCH 10/31/2023 06:39:00 29.9 27.0-34.0 (pg) Final MCHC 10/31/2023 06:39:00 33.8 32.0-36.0 (g/dL) Final RDW 10/31/2023 06:39:00 13.6 11.5-15.5 (%) Final Platelets 10/31/2023 06:39:00 179 140-400 (K/uL) Final MPV 10/31/2023 06:39:00 9.8 6.6-11.1 (fL) Final Nucleated erythrocytes/100 leukocytes [Ratio] in Blood by Automated count 10/31/2023 06:39:00 0 <=0 (/100 WBCs) Final Performing Location [facility] [place] [address] [facility] [address]
--- OUTSIDE RECORDS SUMMARY | 2024-03-17 14:29 | External Medical Summary | Summary of Care ---
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 [place] [address] [place] [address] Kori Scott MD [address] [place] [address] Advice ( FYI: Ed to Admission) Allergies No known active allergiesdocumented as of [...] (Oral) 1981,04/11 Pneumococcal Conjugate Vacci ne, 20-valent ([id number]) 11/17/2022 Seasonal Influenza, PF, 6 M & [...] encounter Miscellaneous Notes * Telephone Encounter - Tory Obrien LPN - 10/31/2023 2:26 PM EST Rheumatology Patient Event Notification - Nurse Summary for Physician Review Patient: Chandan Donato [id number] Event: Admitted to [facility] FYI 10/28/23 Hypotension and vomiting / passed out X 2 Non-Biologic: None Biologic: None Prednisone: None Tory Obrien LPN Notification Date: 10/31/2023 Nurse Chart review time: 5 minutes documented in this encounter Plan of Treatment Upcoming Encounters Date Type Department Care Team (Late st Contact Info) Description 11/03/2023 10:40 AM EST Office Visit [facility] [address] [place] [address] Tomer Garner MD [address] [place] [address] 11/03/2023 1:00 PM EST Office Visit Home Dialysis [address] [place], [place] [address] [facility]dc, Peritoneal Dialysis [address] [facility] [place] [address] 11/07/2023 10:00 AM EST Telemedicine Sleep Disorders Medicine [place] [address] [place] [address] [place] [address] Roxana Jewell PA-C [address] [place] [address] 11/10/2023 8:00 AM EST Treatment Home Dialysis [address] [place], [place] [address] Nurse, [address] [employer] [address], [place] [address] 11/10/2023 1:00 PM EST Nurse Only Home Dialysis [address] [place], [place] [address] Nurse, [address] [employer] [address], [place] [address] 12/04/2023 1:00 PM EDT Office Visit Home Dialysis [address] [place], [place] [address] [facility] [address] [place] [address] 12/11/2023 8:00 AM EDT Treatment Home Dialysis [address] [place], [place] [address] Nurse, [address] [employer] [address] [place] [address] 12/11/2023 1:00 PM EDT Nurse Only Home Dialysis [address] [place], [place] [address] Nurse, [address] [employer] [address] [place] [address] 12/26/2023 1:00 PM EDT Office Visit Home Dialysis [address] [place], [place] [address] [facility] D[place] [address] [place] [address] 01/10/2024 8:00 AM EDT Treatment Home Dialysis [address] [place] [address] Nurse, [address] [employer] [address] [place], [place] [address] 01/10/2024 1:00 PM EDT Nurse Only Home Dialysis [address] [place], [place] [phone] Nurse, [address] [employer] [address], [place] [address] 02/08/2024 1:00 PM EDT Office Visit Home Dialysis [place] [address] [place] [address] [facility] [address] [place] [address] 02/10/2024 8:00 AM EDT Treatment Home Dialysis [place] [address] [place], [place] [phone] Nurse, [address] [employer] [address] [place] [address] 02/12/2024 1:00 PM EDT Nurse Only Home Dialysis [place] [address] [place] [address] Nurse, [address] [employer] [address] [place] [address] 03/05/2024 1:00 PM EDT Office Visit Home Dialysis [address], [place] [address] [facility] [address] [place] [address] 03/11/2024 8:00 AM EDT Treatment Home Dialysis [address], [place] [phone] Nurse, [address] [employer] [address] [place] [address] 03/11/2024 1:00 PM EDT Nurse Only Home Dialysis [place] [address] [place], [place] [phone] Nurse, [address] [employer] [address], [place] [address] 03/19/2024 1:00 PM EDT Office Visit Home Dialysis [place], [place] [address] [facility]ialysis [address] [place] [address] 04/11/2024 8:00 AM EDT Treatment Home Dialysis [place] [address] [place], [place] [phone] Nurse, [address] [employer] [address], [place] [address] 04/11/2024 1:00 PM EDT Nurse Only Home Dialysis [place] [address] [place], [place] [phone] Nurse, [address] [employer] [address], [place] [address] 04/29/2024 1:00 PM EDT Office Visit Home Dialysis [place] [address] [place], [place] [address] [facility] [address] [facility] [place] [address] 05/12/2024 8:00 AM EDT Treatment Home Dialysis [address] [place], [place] [phone] Nurse, [address] [facility] [address], [place] [address] 05/14/2024 1:00 PM EDT Nurse Only Home Dialysis [place] [address], [place] [phone] Nurse, [address] [employer] [address], [place] [address] 06/07/2024 1:00 PM EDT Office Visit Home Dialysis [place] [address] [place], [place] [address] [facility], Peritoneal Dialysis [address] [facility] [address] 06/11/2024 8:00 AM EDT Treatment Home Dialysis [address] [place], [place] [phone] Nurse, [employer] [address], [place] [address] 06/11/2024 1:00 PM EDT Nurse Only Home Dialysis [place] [place], [place] [phone] Nurse, [employer] [address], [place] 06/25/2024 1:00 PM EDT Office Visit Home Dialysis [place] [address], [place] [address] [facility] [address] [facility] [place] [address] 07/12/2024 8:00 AM EDT Treatment Home Dialysis [place], [place] [phone] Nurse, [employer] [address], [place] [address] 07/12/2024 1:00 PM EDT Nurse Only Home Dialysis [place], [place] [phone] Nurse, [employer] [address], [place] [address] 07/22/2024 1:00 PM EST Office Visit Home Dialysis [address] [address] [phone] [facility] [address] [place] [address] 08/11/2024 8:00 AM EST Treatment Home Dialysis [address], [place] [phone] Nurse, [address] [employer] [address], [place] [address] 08/12/2024 1:00 PM EST Nurse Only Home Dialysis [address] [place], [place] [address] Nurse, [employer] [address], [place] [id number] 08/20/2024 1:00 PM EST Office Visit Home Dialysis [address], [place] [phone] [facility] [address] [facility] [place] [address] Health Maintenance Due Date Last Done Comments [...] Inactivated Comments Full Code 10/28/2023 5:15 PM This order reflects the patients wishes [...] Advance Directives occurred with: Patient Care Teams Children'S Ministry Director Relationship Specialty Start Date End Date Tomer Garner MD [address] [place] [id number] PCP - General 09/19/02 documented as of this encounter
--- OUTSIDE RECORDS SUMMARY | 2024-03-17 14:29 | External Medical Summary | Summary of Care ---
Author Name Unknown Organization [facility] Address [address] [place] [address] Phone [phone] Care Team Providers Care Oil Pit Attendant Name Role Phone Tomer Garner MD Primary Care Provider Reason for Visit * Reason Onset Date Comments [facility]: Screening 10/30/2023 Encounter Details Date Type Department Care Team ([facility] st Contact Info) Description 10/30/2023 Telephone [facility], [facility] [address] [place] [address] [facility], Nurse [facility] [address] [place] [address] [facility]: Screening Allergies No known active allergiesdocumented as of this encounter (statuses as of 10/30/2023) Medications Medication Sig Dispensed Refills Start Date End Date Status Lovastatin 10 MG Oral TabletIndications :Kidney replaced by transplant Take 1 Tablet by mouth in the morning. 90 Tablet 3 09/28/2022 Suspended Additional Information Mycophenolate Mofetil 500 MG Oral Tablet (CellCept) Take 1 Tablet by mouth in the morning and 1 Tablet before bedtime. 360 Tablet 1 11/07/2022 Suspended Additional Information Patient not taking.Reported on 10/28/2023 cycloSPORINE Modified 25 MG Oral CapsuleIndication s:Kidney replaced by transplant Take 2 capsules in the morning and 2 capsules in the evening 360 Capsule 3 12/02/2022 Suspended Additional Information Folic Acid 1 MG Oral Tablet Take 1 Tablet by mouth in the morning. 90 Tablet 1 12/01/2022 Suspended Additional Information Febuxostat 80 MG Oral Tablet (Uloric)Indicatio ns:Chronic gout without tophus, unspecified cause, unspecified site Take 1 Tablet by mouth in the morning. 90 Tablet 3 03/23/2023 Suspended Additional Information Cinacalcet HCl 30 MG Oral Tablet (Sensipar) Take 1 Tablet by mouth in the morning. 90 Tablet 3 05/09/2023 Suspended Additional Information Calcium Acetate (Phos Binder) 667 MG Oral Capsule (Phoslo) Take 3 Capsules by mouth with meals and snacks. 900 Capsule 3 07/18/2023 Suspended Additional Information Docusate Sodium 100 MG Oral Capsule (Colace) Take 1 Capsule by mouth in the morning and 1 Capsule before bedtime. 0 08/21/2023 Suspended Additional Information oxyCODONE HCl 5 MG Oral Capsule (Oxy IR) Take 1 Capsule by mouth every 4 hours as needed for Pain, Severe. 12 Capsule 0 08/21/2023 Suspended Additional Information Gentamicin Sulfate 0.1 % External CreamIndications: ESRD on peritoneal dialysis (HCC) Apply topically to affected area daily. Apply to PD exit catheter site daily after showering and cover with bandage 15 g 2 09/08/2023 Suspended Additional Information Dialyvite Oral Tablet Take 1 Tablet by mouth in the morning. 30 Tablet 11 09/28/2023 Suspended Additional Information Potassium Chloride [place] ER 20 MEQ Oral Tablet Extended Release Take 1 Tablet by mouth in the morning. 30 Tablet 11 10/27/2023 Suspended Additional Information NIFEdipine ER 30 MG Oral Tablet Extended Release 24 Hour (Adalat CC) Take 1 Tablet by mouth in the morning. 0 Suspended Metoprolol Succinate 100 MG Oral Capsule ER 24 Hour Sprinkle Take 100 mg by mouth in the morning. 0 Suspended documented as of this encounter (statuses as of 10/30/2023) Active Problems Problem Noted Date Diagnosed Date Shock 10/29/2023 Hypovolemia 10/29/2023 Dialysis-associated peritonitis 10/28/2023 [...] as of this encounter (statuses as of 10/30/2023) Resolved Problems Problem Noted Date Diagnosed Date Resolved Date Dyslipidemia, goal to be determined 08/27/2009 11/21/2013 Overview: Per Lipid Taxonomy. PURE HYPERCHOLESTEROLEM 04/25/200208/11 Overview: Per Lipid Taxonomy. 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 1 Hemoptysis 04/11/1996 08/11/1996 Overview: ICD-10 update of inactive term documented as of this encounter (statuses as of 10/30/2023) Immunizations Name Administration Dates Next Due COVID-19 mRNA, LNP-s, No Pre serve, 2-Dose Series (Moderna) 11/23/2020,10/18/2020 DTP Vaccine 1981,1981,1981 HEP B - Hepatitis B (Dialysis/Immumocomp Pt) 05/02/2023,04/04/2023 MMR - Measles/Mumps/Rubella Vaccine 05/11/1982 OPV - Polio Virus Vaccine (Oral) 1981,04/11 Pneumococcal Conjugate Vacci ne, 20-valent ([id number]) 11/17/2022 Seasonal Influenza, PF, 6 M & [...] encounter Miscellaneous Notes * Telephone Encounter - Karen Guzman LPN - 10/30/2023 12:28 PM EST Chandan Donato was referred as a potential candidate for enrollment for [facility]. A review of this chart was completed and: Chandan meets criteria for [facility]. Jump to Initiation Referring care team was notified via : [employer] communication Ok to enroll upon d/c per [facility] leadership Added to list to follow d/c Screened from dashboard documented in this encounter Plan of Treatment Upcoming Encounters Date Type Department Care Team (Late st Contact Info) Description 11/03/2023 1:00 PM EST Office Visit Home Dialysis [address] [place] [address] [place] [phone] [facility] [address] [place] [phone] 11/10/2023 8:00 AM EST Treatment Home Dialysis [address] [place] [phone] [place] [address] 11/10/2023 1:00 PM EST Nurse Only Home Dialysis [address] [place] [phone], [place] [phone] 12/04/2023 1:00 PM EDT Office Visit Home Dialysis [address] [place] [address] [phone] [facility] Peritoneal Dialysis [address] [place] [address] 12/11/2023 8:00 AM EDT Treatment Home Dialysis [address] [place], [place] [address] Nurse, [address] [employer] [address], [place] [address] 12/11/2023 1:00 PM EDT Nurse Only Home Dialysis [address] [place], [place] [address] Nurse, [address] [facility] [address], [place] [address] 12/26/2023 1:00 PM EDT Office Visit Home Dialysis [address], [place] [address] [facility] Peritoneal Dialysis [address] [place] [facility] [place] [address] 01/10/2024 8:00 AM EDT Treatment Home Dialysis [address], [place] [phone] Nurse, [employer] [address], [place] [address] 01/10/2024 1:00 PM EDT Nurse Only Home Dialysis [address] [place], [place] [address] Nurse, [employer] [address], [place] [address] 02/08/2024 1:00 PM EDT Office Visit Home Dialysis [address], [place] [address] [facility] Peritoneal Dialysis [address] [place] [facility] [place] [address] 02/10/2024 8:00 AM EDT Treatment Home Dialysis [address] [place] [address] Nurse, [address] [employer] [address] [place], [place] [address] 02/12/2024 1:00 PM EDT Nurse Only Home Dialysis [address] [place], [place] [address] Nurse, [address] [employer] [address] [place] [address] 03/05/2024 1:00 PM EDT Office Visit Home Dialysis [address] [place] [address] [facility] Peritoneal Dialysis [address] [place] [address] 03/11/2024 8:00 AM EDT Treatment Home Dialysis [address], [place] [phone] Nurse, [employer] [address] [place] [address] 03/11/2024 1:00 PM EDT Nurse Only Home Dialysis [address] [place], [place] [phone] Nurse, [address] [employer] [address] [place] [address] 03/19/2024 1:00 PM EDT Office Visit Home Dialysis [address] [place] [address] [facility] [place] Dialysis [address] [facility] [place] [address] 04/11/2024 8:00 AM EDT Treatment Home Dialysis [address] [place] [address] Nurse, [address] [employer] [address] [place] [address] 04/11/2024 1:00 PM EDT Nurse Only Home Dialysis [address] [place], [place] [address] Nurse, [address] [employer] [address] [place] [address] 04/29/2024 1:00 PM EDT Office Visit Home Dialysis [address] [place], [place] [address] [facility] Peritoneal Dialysis [address] [place] [address] 05/12/2024 8:00 AM EDT Treatment Home Dialysis [address] [place], [place] [phone] Nurse, [employer] [address] [place] [address] 05/14/2024 1:00 PM EDT Nurse Only Home Dialysis [address] [place], [place] [address] Nurse, [employer] [address] [place] [address] 06/07/2024 1:00 PM EDT Office Visit Home Dialysis [address] [place] [address] [facility] Peritoneal Dialysis [address] [place] [address] 06/11/2024 8:00 AM EDT Treatment Home Dialysis [address] [place], [place] [address] Nurse, [address] [employer] [address] [place] [address] 06/11/2024 1:00 PM EDT Nurse Only Home Dialysis [address] [place] [address] Nurse, [address] [employer] [address] [place] [address] 06/25/2024 1:00 PM EDT Office Visit Home Dialysis [address] [place], [place] [address] [facility], Peritoneal Dialysis [address] [facility], [place] [address] 07/12/2024 8:00 AM EDT Treatment Home Dialysis [address] [place], [place] [address] Nurse, [place] [employer] [address], [place] [address] 07/12/2024 1:00 PM EDT Nurse Only Home Dialysis [address] [place], [place] [phone] Nurse, [address] [employer] [address] [place], [place] [address] 07/22/2024 1:00 PM EST Office Visit Home Dialysis [address] [place], [place] [address] [facility] Peritoneal Dialysis [address] [facility], [place] [address] 08/11/2024 8:00 AM EST Treatment Home Dialysis [address] [place], [place] [address] Nurse, [place] [employer] [address] [place], [place] [address] 08/12/2024 1:00 PM EST Nurse Only Home Dialysis [address] [place], [place] [address] Nurse, [place] [employer] [address], [place] [address] 08/20/2024 1:00 PM EST Office Visit Home Dialysis [address] [place], [place] [address] [facility] Per[place] Dialysis [address] [facility] [place] [address] Health Maintenance Due Date Last Done Comments COVID-19 Vaccine (3 - Moderna risk series) 12/21/2020 11/23/2020, 10/18/2020 Hepatitis B (3 of 4 - Risk Dialysis Recombivax 3-dose series) 10/05/2023 05/02/2023, 04/04/2023 Depression Screening 11/18/2023 11/17/2022 Lipid Panel 05/18/2026 05/18/2021, 12/0 09/2009, 11/11/2004, Additional history exists Diabetes Screening 10/30/2026 10/30/2023, 0 10/29/2023, 10/29/2023, Additional history exists DTaP,Tdap,and Td Vaccines [...] Advance Directives occurred with: Patient Care Teams Oil Pit Attendant Relationship Specialty Start Date End Date Tomer Garner MD [address] [place] [address] PCP - General 09/19/02 documented as of this encounter
--- OUTSIDE RECORDS SUMMARY | 2024-03-17 14:29 | External Medical Summary ---
Author Name Unknown Address Unknown Organization : Laboratory Report Ordering Provider Test Date Status PINO CASTAÑEDA 10/29/2023 15:08:00 Final Observation Date Value Abnormality Reference (Units ) Status DHEA sulfate 10/29/2023 15:08:00 118 70-495 (mcg/dL) Final DHEA-S values fall with adva ncing age. For reference,
the reference intervals for 31-40 year old patients
are: Female 23-266 mcg/dL and Male 106-464 mcg/dL.

Test Performed at:
[facility]
[address] [facility]
[place] [address]
Yves Pozo M.D., Ph.D.,Director of Laboratories Performing Location
--- OUTSIDE RECORDS SUMMARY | 2024-03-17 14:29 | External Medical Summary ---
Author Name Unknown Address Unknown Organization K01:[facility] [address] [place] [address] Laboratory Report Ordering Provider Test Date Status MADDY,PINO 10/29/2023 08:06:00 Final Observation Date Value Abnormality Reference (Units ) Status Osmolality 10/29/2023 08:06:00 312 Above high normal 2 78-305 (mOsm/kg) Final Performing Location [facility] - [address] [place] [address]
--- OUTSIDE RECORDS SUMMARY | 2024-03-17 14:29 | External Medical Summary ---
Author Name Unknown Address Unknown Organization K01:[facility] [place] [facility] [address] [place] [address] Laboratory Report Ordering Provider Test Date Status PINO CASTAÑEDA 10/29/2023 15:08:00 Final Draw Every 30 minutes:
Immediately before administration of cosyntropin (CORTROSYN),
30 minutes after administration of cosyntropin (CORTROSYN),
60 minutes after administration of cosyntropin (CORTROSYN)
(for Cosyntropin Stim Test) Observation Date Value Abnormality Reference (Units ) Status Cortisol 10/29/2023 15:08:00 33.0 Above high normal 2. 5-19.5 (ug/dL) Final AM Reference Range: 4.8 - 19 .5 ug/dL
PM Reference Range: 2.5 - 11.9 ug/dL Performing Location [facility] [place] [facility] [address] [place] [address]
--- OUTSIDE RECORDS SUMMARY | 2024-03-17 14:29 | External Medical Summary ---
Author Name Unknown Address Unknown Organization K01:[facility]ATORY [facility] [place] - [facility] [address] Laboratory Report Ordering Provider Test Date Status MADDY,PINO 10/30/2023 05:50:00 Final Observation Date Value Abnormality Reference (Units ) Status WBC, Total 10/30/2023 05:50:00 12.87 Above high normal 4.00-10.80 (K/uL) Final RBC 10/30/2023 05:50:00 2.87 4.50-5.25 (M/uL) Final Hemoglobin 10/30/2023 05:50:00 8.5 Below low normal 14.0-16.8 (g/dL) Final HCT 10/30/2023 05:50:00 25.5 Below low normal 40.0-48.4 (%) Final MCV 10/30/2023 05:50:00 88.9 82.0-99.5 (fL) Final MCH 10/30/2023 05:50:00 29.6 27.0-34.0 (pg) Final MCHC 10/30/2023 05:50:00 33.3 32.0-36.0 (g/dL) Final RDW 10/30/2023 05:50:00 13.7 11.5-15.5 (%) Final Platelets 10/30/2023 05:50:00 183 140-400 (K/uL) Final MPV 10/30/2023 05:50:00 10.0 6.6-11.1 (fL) Final Nucleated erythrocytes/100 leukocytes [Ratio] in Blood by Automated count 10/30/2023 05:50:00 0 <=0 (/100 WBCs) Final Performing Location [facility]ORY [facility] [place] [facility] [address] [facility] [facility] [address]
--- OUTSIDE RECORDS SUMMARY | 2024-03-17 14:29 | External Medical Summary ---
Author Name Unknown Address Unknown Organization K01:LAB[facility]ATORY [facility] [place] - [facility] [address] [facility] [place] [address] Laboratory Report Ordering Provider Test Date Status PINO CASTAÑEDA 10/29/2023 13:55:00 Final Draw Every 30 minutes:
Immediately before administration of cosyntropin (CORTROSYN),
30 minutes after administration of cosyntropin (CORTROSYN),
60 minutes after administration of cosyntropin (CORTROSYN)
(for Cosyntropin Stim Test) Observation Date Value Abnormality Reference (Units ) Status Cortisol 10/29/2023 13:55:00 15.9 2.5-19.5 ( ug/dL) Final AM Reference Range: 4.8 - 19 .5 ug/dL
PM Reference Range: 2.5 - 11.9 ug/dL Performing Location LABORATORY [facility] [place] - [facility] [address] [place] [address]
--- OUTSIDE RECORDS SUMMARY | 2024-03-17 14:29 | External Medical Summary | Summary of Care ---
Author Name Unknown Organization [facility] Address [address] [place] [address] Phone [phone] Care Team Providers Care Administrative Staff Supervisor Name Role Phone Tomer Garner MD Primary Care Provider [phone] Encounter Details Date Type Department Care Team (Late st Contact Info) Description 10/30/2023 Population Health External Data Unspecified Department Allergies [...] (Oral) 1981,04/11 Pneumococcal Conjugate Vacci ne, 20-valent ([id number]) 11/17/2022 Seasonal Influenza, PF, 6 M & [...] [address] [place], [place] [phone] [facility], Peritoneal Dialysis [address] [place] [facility] [place] [address] 11/10/2023 8:00 AM EST Treatment Home Dialysis Hamzah [address] [place], [place] [address] Nurse, Lance [address] [employer] [address] [place], [place] [address] 11/10/2023 1:00 PM EST Nurse Only Home Dialysis Hamzah [address] [place], [place] [phone] Nurse, Lance [address] [facility] [address] [place], [place] [address] 12/04/2023 1:00 PM EDT Office Visit Home Dialysis Hamzah [address] [place], [place] [address] [facility], Peritoneal Dialysis [address] [facility] [place], [place] [address] 12/11/2023 8:00 AM EDT Treatment Home Dialysis Hamzah [address] [place], [place] [address] Nurse, Lance [employer] [address] [place], [place] [address] 12/11/2023 1:00 PM EDT Nurse Only Home Dialysis Ham[address] [place], [place] [address] Nurse, Lance [employer] [address] [place], [place] [address] 12/26/2023 1:00 PM EDT Office Visit Home Dialysis Hamzah [address] [place], [place] [address] [facility], Peritoneal Dialysis [address] [facility] [place], [place] [address] 01/10/2024 8:00 AM EDT Treatment Home Dialysis Hamzah [address] [place], [place] [phone] Nurse, Lance [address] [facility] [address] [place], [place] [address] 01/10/2024 1:00 PM EDT Nurse Only Home Dialysis Hamzah [address] [place], [place] [phone] Nurse, Lance [address] [employer] [address] [place], [place] 02/08/2024 1:00 PM EDT Office Visit Home Dialysis Hamzah [address] [place], [place] [address] [facility], Peritoneal Dialysis [address] [place] [address] 02/10/2024 8:00 AM EDT Treatment Home Dialysis Hamzah Lucas [address] [place], [place] [phone] Nurse, Lance [address] [employer] [address] [place], [place] [address] 02/12/2024 1:00 PM EDT Nurse Only Home Dialysis Hamzah [address] [place], [place] [address] Nurse, Lance [address] Crist[address] [place], [place] [address] 03/05/2024 1:00 PM EDT Office Visit Home Dialysis Hamzah [address] [place], [place] [address] [facility], Peritoneal Dialysis [address] [place] [address] 03/11/2024 8:00 AM EDT Treatment Home Dialysis Hamzah [address] [place], [place] [phone] Nurse, Lance [address] [facility] [address] [place], [place] [address] 03/11/2024 1:00 PM EDT Nurse Only Home Dialysis Hamzah [address] [place], [place] [phone] Nurse, Lance [address] [employer] [address] [place], [place] [address] 03/19/2024 1:00 PM EDT Office Visit Home Dialysis Hamzah [address] [place], [place] [phone] [facility], Peritoneal Dialysis [address] [place] [address] 04/11/2024 8:00 AM EDT Treatment Home Dialysis Hamzah [address] [place], [place] [phone] Nurse, Lance [address] [facility] [address] [place], [place] 04/11/2024 1:00 PM EDT Nurse Only Home Dialysis Hamzah [address] [place], [place] [phone] Nurse, Lance [employer] Crist[address] [place], [place] [address] 04/29/2024 1:00 PM EDT Office Visit Home Dialysis Hamzah [address] [place], [place] [address] [facility], Peritoneal Dialysis [address] [facility] [place] [address] 05/12/2024 8:00 AM EDT Treatment Home Dialysis Hamzah [address] [place], [place] [phone] Nurse, Lance [employer] [address] [place], [place] [address] 05/14/2024 1:00 PM EDT Nurse Only Home Dialysis Hamzah [address] [place], [place] [phone] Nurse, Lance [employer] [address], [place] [address] 06/07/2024 1:00 PM EDT Office Visit Home Dialysis Hamzah [address] [place], [place] [address] [facility], Peritoneal Dialysis [address] [place] [address] 06/11/2024 8:00 AM EDT Treatment Home Dialysis Hamzah [address] [place], [place] [address] Nurse, [address] [employer] [address] [place] [address] 06/11/2024 1:00 PM EDT Nurse Only Home Dialysis Hamzah [address] [place], [place] [address] Nurse, Lance [employer] [address] [place], [place] [address] 06/25/2024 1:00 PM EDT Office Visit Home Dialysis Hamzah [address] [place], [place] [address] [facility], Peritoneal Dialysis [address] [place] [address] 07/12/2024 8:00 AM EDT Treatment Home Dialysis Hamzah [address] Dr [address] [place], [place] [address] Nurse, Lance [address] [employer] [address] [place] [address] 07/12/2024 1:00 PM EDT Nurse Only Home Dialysis Hamzah [address] [place], [place] [address] Nurse, Lance [address] [employer] [address] [place], [place] [address] 07/22/2024 1:00 PM EST Office Visit Home Dialysis Hamzah [address] [place], [place] [address] [facility], Peritoneal Dialysis [address] [place], [place] [address] 08/11/2024 8:00 AM EST Treatment Home Dialysis Hamzah [address] [place] [address] [phone] Nurse, [employer] [address] [address] [place] [address] 08/12/2024 1:00 PM EST Nurse Only Home Dialysis Hamzah [address] [place] [address] [phone] Nurse, [employer] [address] [phone] 08/20/2024 1:00 PM EST Office Visit Home Dialysis Hamzah [address] [place] [address] [phone] [facility], Peritoneal Dialysis [address] [facility] [address] [place] [address] Health Maintenance Due Date Last Done Comments [...] Advance Directives occurred with: Patient Care Teams Administrative Staff Supervisor Relationship Specialty Start Date End Date Tomer Garner MD [address] [place] [address] PCP - General 09/19/02 documented as of this encounter
--- OUTSIDE RECORDS SUMMARY | 2024-03-17 14:29 | External Medical Summary ---
Author Name Unknown Address Unknown Organization [id number]:[facility] [address] [place] [address] Laboratory Report Ordering Provider Test Date Status PINO CASTAÑEDA 10/29/2023 15:38:00 Final Draw Every 30 minutes:
Immediately before administration of cosyntropin (CORTROSYN),
30 minutes after administration of cosyntropin (CORTROSYN),
60 minutes after administration of cosyntropin (CORTROSYN)
(for Cosyntropin Stim Test) Observation Date Value Abnormality Reference (Units ) Status Cortisol 10/29/2023 15:38:00 35.2 Above high normal 2. 5-19.5 (ug/dL) Final AM Reference Range: 4.8 - 19 .5 ug/dL
PM Reference Range: 2.5 - 11.9 ug/dL Performing Location [facility] [place] [address]
--- OUTSIDE RECORDS SUMMARY | 2024-03-17 14:29 | External Medical Summary | Summary of Care ---
Author Name Unknown Organization [facility] Address [address] [place] [address] Phone [phone] Care Team Providers Care Corporate Accounting Manager Name Role Phone Tomer Garner MD Primary Care Provider Reason for Visit * Reason Onset Date Comments [facility]: Screening 10/30/2023 Encounter Details Date Type Department Care Team ([facility] st Contact Info) Description 10/30/2023 Telephone [facility], [facility] [address] [place] [address] [facility], Nurse [facility] [address] [place] [address] [facility]: Screening Allergies No known [...] (Oral) 1981,04/11 Pneumococcal Conjugate Vacci ne, 20-valent ([id number]) 11/17/2022 Pneumococcal Polysaccharide PPV23 (Pneumovax) 02/03/2004 Seasonal [...] Referring care team was notified via : [employer] communication Sent to [facility] leadership for review Ok to enroll upon d/c per [facility] leadership Added to list to follow d/c Screened from dashboard documented in this encounter Plan of Treatment Upcoming Encounters Date Type Department Care Team (Late st Contact Info) Description 11/03/2023 10:40 AM EST Office Visit [facility] [address] [place] [address] Tomer Garnre MD [address] [place] [address] 11/03/2023 1:00 PM EST Office Visit Home Dialysis [address] [place] [address] [facility], Peritoneal Dialysis [address] [place] [address] 11/07/2023 10:00 AM EST Telemedicine Sleep Disorders Medicine [facility] [place] [address] [facility] [address] [address] Roxana Jewell PA-C [address] [place] [address] 11/10/2023 8:00 AM EST Treatment Home Dialysis Clau [address] [place] [address] Nurse, Lance Lopez [address] [place], [place] [address] 11/10/2023 1:00 PM EST Nurse Only Home Dialysis Clau [address] [place], [place] [phone] Nurse, Lance [address] [place], [place] 12/04/2023 1:00 PM EDT Office Visit Home Dialysis Clau [address] [place], [place] [phone] [facility], Peritoneal Dialysis [address] [place] [address] 12/11/2023 8:00 AM EDT Treatment Home Dialysis Clau [address] [place], [place] [phone] Nurse, Lance Lopez [address] [address] [place] [address] 12/11/2023 1:00 PM EDT Nurse Only Home Dialysis Clau [address] [place] [address] Nurse, Lance Lopez [employer] [address] [place] [address] 12/26/2023 1:00 PM EDT Office Visit Home Dialysis Clau [address] [place] [address] [facility], Peritoneal Dialysis [address] [place] [address] 01/10/2024 8:00 AM EDT Treatment Home Dialysis Clau [address] [place], [place] [phone] Nurse, Lance [address] [place] [address] 01/10/2024 1:00 PM EDT Nurse Only Home Dialysis Clau [address] [place], [place] [phone] Nurse, Lance [address] [employer] [address] [place], [place] [address] 02/08/2024 1:00 PM EDT Office Visit Home Dialysis Clau [address] [place], [place] [address] [facility], Peritoneal Dialysis [address] [place] [address] 02/10/2024 8:00 AM EDT Treatment Home Dialysis Clau [address] [place], [place] [phone] Nurse, Lance [address] [employer] [address] [place], [place] [address] 02/12/2024 1:00 PM EDT Nurse Only Home Dialysis Clau [address] [place], [place] [phone] Nurse, Lance [address] [employer] [address] [place], [place] [address] 03/05/2024 1:00 PM EDT Office Visit Home Dialysis Clau [address] [place], [place] [address] [facility], Peritoneal Dialysis [address] [place] [address] 03/11/2024 8:00 AM EDT Treatment Home Dialysis Clau [address] [place], [place] [phone] Nurse, Lance [address] [facility] [address] [place], [place] [address] 03/11/2024 1:00 PM EDT Nurse Only Home Dialysis Clau [address] [place], [place] [phone] Nurse, Lance [address] [employer] [address] [place], [place] [address] 03/19/2024 1:00 PM EDT Office Visit Home Dialysis Clau [address] [place], [place] [address] [facility], Peritoneal Dialysis [address] [place] [address] 04/11/2024 8:00 AM EDT Treatment Home Dialysis Clau [address] [place], [place] [phone] Nurse, Lance [address] [employer] [address] [place], [place] 04/11/2024 1:00 PM EDT Nurse Only Home Dialysis Clau [address] [place], [place] [phone] Nurse, Lance [employer] [place], [place] 04/29/2024 1:00 PM EDT Office Visit Home Dialysis Clau [address] [place], [place] [address] [facility], Peritoneal Dialysis [address] [place] [facility] [place] [address] 05/12/2024 8:00 AM EDT Treatment Home Dialysis Clau [address] [place], [place] [phone] Nurse, Lance [employer] [address] [place], [place] [address] 05/14/2024 1:00 PM EDT Nurse Only Home Dialysis Clau [address] [place], [place] [phone] Nurse, [employer] [address] [place], [place] [address] 06/07/2024 1:00 PM EDT Office Visit Home Dialysis Clau [address] [place], [place] [address] [facility], Peritoneal Dialysis [address] [place] [address] 06/11/2024 8:00 AM EDT Treatment Home Dialysis Clau [address] [place], [place] [phone] Nurse, Lance Lopez [address] [place], [place] [address] 06/11/2024 1:00 PM EDT Nurse Only Home Dialysis Clau [address] [place], [place] [phone] Nurse, Lancebaltazar Lopez [address] [place], [place] [address] 06/25/2024 1:00 PM EDT Office Visit Home Dialysis Clau [address] [place], [place] [address] [facility], Peritoneal Dialysis [address] [facility] [place] [address] 07/12/2024 8:00 AM EDT Treatment Home Dialysis Clau [address] [place], [place] [phone] Nurse, Lancebaltazar Lopez [address] [place], [place] [address] 07/12/2024 1:00 PM EDT Nurse Only Home Dialysis Clau [address] [place], [place] [address] Nurse, Lance [employer] [address] [place] [address] 07/22/2024 1:00 PM EST Office Visit Home Dialysis Clau [address] [place], [place] [address] [facility], Peritoneal Dialysis [address] [place] [address] 08/11/2024 8:00 AM EST Treatment Home Dialysis Clau [address] [place] [address] Nurse, Lance [address] [employer] [address] [place] [address] [phone] 08/12/2024 1:00 PM EST Nurse Only Home Dialysis Clau [address] [place] [address] [phone] Nurse, [address] [employer] [address] [place] [address] [phone] 08/20/2024 1:00 PM EST Office Visit Home Dialysis Clau [address] [place] [address] [facility], Peritoneal Dialysis [address] [place] [...] Advance Directives occurred with: Patient Care Teams Corporate Accounting Manager Relationship Specialty Start Date End Date Tomer Garner MD [address] [place] [address] PCP - General 09/19/02 documented as of this encounter
--- OUTSIDE RECORDS SUMMARY | 2024-03-17 14:29 | External Medical Summary ---
Author Name Unknown Address Unknown Organization K01:[facility]AT[facility] [place] - [address] [facility] [address] Laboratory Report Ordering Provider Test Date Status PINO ACSTAÑEDA 10/31/2023 06:39:00 Final Observation Date Value Abnormality Reference (Units ) Status BUN 10/31/2023 06:39:00 75 Above high normal 6-20 (mg/dL) Final Creatinine 10/31/2023 06:39:00 22.9 Above high normal 0.6-1.2 (mg/dL) Final Glomerular filtration rate/1.73 sq M.predicted [Volume Rate/Area] in Serum, Plasma or Blood by Creatinine-based formula (CKD-EPI) 10/31/2023 06:39:00 2 Below low normal >=60 (mL/min) Final eGFR is calculated based on the CKD-EPI 2020 equation SODIUM 10/31/2023 06:39:00 138 135-146 (m mol/L) Final Potassium 10/31/2023 06:39:00 3.5 3.5-5.1 (m mol/L) Final Cl 10/31/2023 06:39:00 92 Below low normal 98- 107 (mmol/L) Final CO2 10/31/2023 06:39:00 17 Below low normal 22- 32 (mmol/L) Final Anion gap 10/31/2023 06:39:00 29 Above high normal 7- 15 (mmol/L) Final Glucose 10/31/2023 06:39:00 113 70-120 (mg /dL) Final Albumin 10/31/2023 06:39:00 4.1 3.8-5.0 (g /dL) Final AST (Aspartate aminotransferase) 10/31/2023 06:39:00 5 Below low normal 10-50 (U/L) Final Result may be falsely elevat ed due to hemolysis. Alk Phos 10/31/2023 06:39:00 69 35-130 (U/ L) Final Bilirubin, Total 10/31/2023 06:39:00 0.4 <=1 .2 (mg/dL) Final Calcium 10/31/2023 06:39:00 9.2 8.4-10.2 ( mg/dL) Final Protein 10/31/2023 06:39:00 7.2 6.0-8.3 (g /dL) Final ALT (Alanine aminotransferase) 10/31/2023 06:39:00 14 10-50 (U/L) Final Performing Location [facility] - [address] [facility] [address]
--- OUTSIDE RECORDS SUMMARY | 2024-03-17 14:29 | External Medical Summary | Summary of Care ---
Author Name Unknown Organization [facility] Address [address] [place] [address] Phone [phone] Care Team Providers Care Artifacts Conservator Name Role Phone Tomer Garner MD Primary Care Provider Reason for Visit * Auth/Cert Specialty Diagnoses / Procedures Referred By Adis t Referred To Contact Referral ID Status Reason Start Date Expiration Date Visits Re quested Visits Authorized [id number] Encounter Details Date Type Department Care Team (Latest Contact Info) Description 10/29/2023 9:22 AM EST - 10/29/2023 11:59 PM EST Hospital Encounter Cardiac Studies [facility] [address] [place] [address] Discharge Disposition: Home - Self [...] (Oral) 1981,04/11 Pneumococcal Conjugate Vacci ne, 20-valent ([id number]) 11/17/2022 Seasonal Influenza, PF, 6 M & [...] [address] [place] [address] [phone] [facility] Peritoneal Dialysis [address] [place], [place] [address] 11/10/2023 8:00 AM EST Treatment Home Dialysis Hamzah [address] Dr [address] [place] [address] [address], [address] [place] [address] 11/10/2023 1:00 PM EST Nurse Only Home Dialysis Hamzah [address] Dr [address] [place] [address] Nurse, [address] [place] [address] 12/04/2023 1:00 PM EDT Office Visit Home Dialysis Hamzah [address] [place] [address] [address] [facility] Peritoneal Dialysis [address] [facility] [place], [place] [address] 12/11/2023 8:00 AM EDT Treatment Home Dialysis Hamzah [address] [place] [address] Nurse, [address] [place] [address] 12/11/2023 1:00 PM EDT Nurse Only Home Dialysis Hamzha [address] [place] [address] Nurse, [address] [employer] [address] [place], [place] [address] 12/26/2023 1:00 PM EDT Office Visit Home Dialysis Hamzah [address] Dr [address] [place], [place] [address] [facility] Peritoneal Dialysis [address] [place] [address] 01/10/2024 8:00 AM EDT Treatment Home Dialysis Hamzah [address] Dr [address] [place], [place] [phone] Nurse, Lance [address] [place], [place] [address] 01/10/2024 1:00 PM EDT Nurse Only Home Dialysis Hamzah [address] Dr [address] [place], [place] [phone] Nurse, Osmosis [employer] [address] [place], [place] 02/08/2024 1:00 PM EDT Office Visit Home Dialysis Hamzah [address] Dr [address] [place], [place] [address] [facility] Peritoneal Dialysis [address] [place] [address] 02/10/2024 8:00 AM EDT Treatment Home Dialysis Hamzah [address] Dr [address] [place], [place] [phone] Nurse, Lance [employer] [address] [place], [place] [address] 02/12/2024 1:00 PM EDT Nurse Only Home Dialysis Hamzah [address] [place], [place] [phone] Nurse, Osmosis [employer] [address] [place], [place] [address] 03/05/2024 1:00 PM EDT Office Visit Home Dialysis Hamzah [address] Dr [address] [place], [place] [phone] [facility], Peritoneal Dialysis [address] [place] [facility] [place] [address] 03/11/2024 8:00 AM EDT Treatment Home Dialysis Hamzah [address] [place], [place] [address] Nurse, Lance [employer] [address] [place], [place] [address] 03/11/2024 1:00 PM EDT Nurse Only Home Dialysis Hamzah [address] Dr [address] [place], [place] [phone] Nurse, Lance [employer] [address] [place], [place] [address] 03/19/2024 1:00 PM EDT Office Visit Home Dialysis Hamzah [address] Dr [address] [place], [place] [address] [facility] Peritoneal Dialysis [address] [facility], [place] [address] 04/11/2024 8:00 AM EDT Treatment Home Dialysis Hamzah [address] [place], [place] [phone] Nurse, Osmosis [employer] [address] [place], [place] [address] 04/11/2024 1:00 PM EDT Nurse Only Home Dialysis Hamzah [address] [place], [place] [phone] Nurse, Osmosis [address] [address] [place] [address] 04/29/2024 1:00 PM EDT Office Visit Home Dialysis Hamzah [address] [place], [place] [address] [facility] Peritoneal Dialysis [address] [place] [facility] [place] [address] 05/12/2024 8:00 AM EDT Treatment Home Dialysis Hamzah [address] Dr [address] [place], [place] [address] Nurse, Lance [address] [employer] [address] [place] [address] 05/14/2024 1:00 PM EDT Nurse Only Home Dialysis Hamzah [address] Dr [address] [place], [place] [address] Nurse, Lance [address] [employer] [address] [place] [address] 06/07/2024 1:00 PM EDT Office Visit Home Dialysis Hamzah [address] [place] [address] [facility] Peritoneal Dialysis [address] [place] [address] 06/11/2024 8:00 AM EDT Treatment Home Dialysis Hamzah [address] [place], [place] [phone] Nurse, Osmosis [employer] [address] [place] [address] 06/11/2024 1:00 PM EDT Nurse Only Home Dialysis Hamzah [address] [place], [place] [phone] Nurse, Lance Lopez [employer] [address] [place] [address] 06/25/2024 1:00 PM EDT Office Visit Home Dialysis Hamzah [address] Dr [address] [place], [place] [address] [facility] Peritoneal Dialysis [address] [facility] [place] [address] 07/12/2024 8:00 AM EDT Treatment Home Dialysis Hamzah [address] Dr [address] [place], [place] [address] Nurse, [address] [employer] [address] [place] [address] 07/12/2024 1:00 PM EDT Nurse Only Home D[place] [address] Nurse, Lance [employer] [address] [place], [place] [address] 07/22/2024 1:00 PM EST Office Visit Home Dialysis Hamzah [address] [place], [place] [address] [facility] Peritoneal Dialysis [address] [facility], [place] [address] 08/11/2024 8:00 AM EST Treatment Home Dialysis Hamzah [address] [place], [place] [phone] Nurse, Osmosis [employer] [address] [place], [place] [address] 08/12/2024 1:00 PM EST Nurse Only Home Dialysis Ham[address]ah [address] [place], [place] [address] Nurse, Osmosis [employer] [address] [place] [address] 08/20/2024 1:00 PM EST Office Visit Home Dialysis Hamzah [address] [place] [address] [facility] Peritoneal Dialysis [address] [facility], [place] [address] Health Maintenance Due Date Last Done Comments [...] Diagnosis Comments ECHO, COMPLETE (2D), TRANS-THORACIC Routine 10/29/2023 11:29 AM EST Shock (HCC) documented in this encounter Visit Diagnoses Diagnosis Dyslipidemia, goal LDL below 160- Primary Other and unspecified hyperlipidemia Primary hypertension Unspecified essential hypertension documented in this encounter Administered Medications Inactive Administered Medications - up to 3 most recent administrations Medication Order MAR Action Action Date Dose Rate Site perflutren lipid microsphere inj SUSP 1.956 mg 1.956 mg, Intravenous, ONCE PRN Other, For Echo Only - Suboptimal Echo Images, Starting on 10/29/23 at 1059, Until 10/29/23 at 1258, For 2 hours, Administer IVP over 45 seconds, Cardiac Studies_HODHOV Given 10/29/2023 11:23 AM EST 1.956 mg documented in this encounter Advance [...] Advance Directives occurred with: Patient Care Teams Artifacts Conservator Relationship Specialty Start Date End Date Tomer Garner MD [address] [place] [facility] [address] PCP - General 09/19/02 documented as of this encounter
--- OUTSIDE RECORDS SUMMARY | 2024-03-17 14:29 | External Medical Summary | Summary of Care ---
Author Name Unknown Organization [facility] Address [address] [place] [address] Phone [phone] Care Team Providers Care Hand Crocheter Name Role Phone Tomer Garner MD Primary Care Provider Reason for Visit * Reason Onset Date Comments Appointment 10/31/2023 Encounter Details Date Type Department Care Team ([facility] st Contact Info) Description 10/31/2023 Telephone [facility], [facility] [address] [place] [address] Services, Scheduling [address] [place] [address] Appointment (/) Allergies No known active allergiesdocumented as of [...] (Oral) 1981,04/11 Pneumococcal Conjugate Vacci ne, 20-valent ([id number]) 11/17/2022 Seasonal Influenza, PF, 6 M & [...] encounter Miscellaneous Notes * Telephone Encounter - Alka Mike OSA - 10/31/2023 2:21 PM EST [facility] Engagement Attempt Engagement: Engagement Attempt 1: No data was found Home Information: No data was found Advance Care Planning (ACP): No data was found Has Living Will or Advance Directive: No data was found Anticipated Sub-Program: No data was found Confirmation of Sub-Program Type (by care team primary care physician): No data was found Handoff Information: Current care team notified via: No data was found Current telemonitoring equipment: No data was found Called s/w pt he advised he isn't intetrested with [facility]. documented in this encounter Plan of Treatment Upcoming Encounters Date Type Department Care Team (Late st Contact Info) Description 11/03/2023 10:40 AM EST Office Visit [facility] [address] [place] [address] Tomer Garner MD [address] [place] [address] 11/03/2023 1:00 PM EST Office Visit Home Dialysis [address] [phone] Mdc, Peritoneal Dialysis [address] [facility] [place] [address] 11/07/2023 10:00 AM EST Telemedicine Sleep Disorders Medicine [facility] [address] [place] [phone] Roxana Jewell PA-C [address] [place], [place] [phone] 11/10/2023 8:00 AM EST Treatment Home Dialysis [address] [phone] Nurse, [employer] [address] [place] [address] 11/10/2023 1:00 PM EST Nurse Only Home Dialysis [address] [place] [address] Nurse, Lancebaltazar Bee [address] [phone] 12/04/2023 1:00 PM EDT Office Visit Home Dialysis [address] [place] [address] [facility] [place] [facility]ialysis [address] [place] [facility] [address] 12/11/2023 8:00 AM EDT Treatment Home Dialysis [address] [place], [place] [address] Nurse, [address] [employer] [address] [place], [place] [address] 12/11/2023 1:00 PM EDT Nurse Only Home Dialysis [address] [place], [place] [address] Nurse, Lance [address] [place], [place] [address] 12/26/2023 1:00 PM EDT Office Visit Home Dialysis [facility] [place], [place] [address] [facility] [place] [facility]ialysis [address] [place] [address] 01/10/2024 8:00 AM EDT Treatment Home Dialysis Ham[address] [place], [place] [address] Nurse, [address] [employer] [address] [place] [address] 01/10/2024 1:00 PM EDT Nurse Only Home Dialysis [address] [place], [place] [address] Nurse, [address] [employer] [address] [place] [address] 02/08/2024 1:00 PM EDT Office Visit Home Dialysis [address] [place], [place] [address] [facility] [place] [facility] [address] [place] [address] 02/10/2024 8:00 AM EDT Treatment Home Dialysis Ham[address] [place] [address] Nurse, [address] [employer] [address] [place] [address] 02/12/2024 1:00 PM EDT Nurse Only Home Dialysis [address] [place] [address] Nurse, Lance [address] [employer] [address] [place] [address] 03/05/2024 1:00 PM EDT Office Visit Home Dialysis Hamz[address] [place] [address] [facility] [place] [facility]ialysis [address] [facility] [address] 03/11/2024 8:00 AM EDT Treatment Home Dialysis Hamz[address] [place], [place] [address] Nurse, [address] [employer] [address] [place] [address] 03/11/2024 1:00 PM EDT Nurse Only Home Dialysis [address] [place], [place] [phone] Nurse, Lance [address] [employer] [address] [place] [address] 03/19/2024 1:00 PM EDT Office Visit Home Dialysis Hamz[address] [place] [address] [facility] [place] Dialysis [address] [place] [address] 04/11/2024 8:00 AM EDT Treatment Home Dialysis [address] [place] [address] Nurse, [address] [employer] [address] [place] [address] 04/11/2024 1:00 PM EDT Nurse Only Home Dialysis [address] [place] [address] Nurse, [address] [facility] [address] [place], [place] [address] 04/29/2024 1:00 PM EDT Office Visit Home Dialysis Hamz[address] [place], [place] [address] [facility] [place] [facility]ialysis [address] [place] [address] 05/12/2024 8:00 AM EDT Treatment Home Dialysis Hamzah [address] [place], [place] [phone] Nurse, Lance [address] [employer] [address] [place], [place] [address] 05/14/2024 1:00 PM EDT Nurse Only Home Dialysis Ham[address] [place], [place] [address] Nurse, Lance [employer] [address] [place], [place] [address] 06/07/2024 1:00 PM EDT Office Visit Home Dialysis Hamzah [address] [place], [place] [address] [facility] [place] [facility]ialysis [address] [place] [facility] [address] 06/11/2024 8:00 AM EDT Treatment Home Dialysis Ham[address] [place], [place] [address] Nurse, [address] [employer] [address] [place] [address] 06/11/2024 1:00 PM EDT Nurse Only Home Dialysis Hamz[address] [place], [place] [phone] Nurse, Lance [address] [employer] [address] [place], [place] [address] 06/25/2024 1:00 PM EDT Office Visit Home Dialysis Ham[address] [place], [place] [address] [facility] [place] [facility] [address] [place] [facility] [address] 07/12/2024 8:00 AM EDT Treatment Home Dialysis [facility] [place], [place] [address] Nurse, [address] [employer] [address] [place], [place] [address] 07/12/2024 1:00 PM EDT Nurse Only Home Dialysis [address] [place], [place] [address] Nurse, [address] [facility] [address] [place], [place] [address] 07/22/2024 1:00 PM EST Office Visit Home Dialysis [facility], [place] [address] [facility] [place] [address] [place] [facility] [address] 08/11/2024 8:00 AM EST Treatment Home Dialysis [facility] [place] [address] Nurse, Lance [employer] [address] [place] [address] 08/12/2024 1:00 PM EST Nurse Only Home Dialysis [address] [place], [place] [address] Nurse, Lance [employer] [address] [place] [address] 08/20/2024 1:00 PM EST Office Visit Home Dialysis [facility] [place], [place] [address] [facility] [place] [facility] [address] [facility] [place], [place] [address] Health Maintenance Due Date Last Done Comments [...] Code 11/01/2022 10:32 PM 11/07/2022 3:42 PM Thi s order reflects the patients wishes and were consensually agreed upon. Question Answer Comments Discussion of Advance Directives occurred with: Patient Full Code 10/31/2022 9:32 PM 11/01/2022 9:56 PM This order reflects the patients wishes and were consensually agreed upon. Question Answer Comments Discussion of Advance Directives occurred with: Patient Care Teams Hand Crocheter Relationship Specialty Start Date End Date Tomer Garner MD [address] [place] [address] PCP - General 09/19/02 documented as of this encounter
--- OUTSIDE RECORDS SUMMARY | 2024-03-17 14:29 | External Medical Summary ---
Author Name Unknown Address Unknown Organization [id number]:LABORATORY [facility] - [address] [facility] [address] Laboratory Report Ordering Provider Test Date Status MADDY,PINO 10/29/2023 08:52:00 Final Observation Date Value Abnormality Reference (Units ) Status Body temperature 10/29/2023 08:52:00 37.0 (C) Final pH of Venous blood 10/29/2023 08:52:00 7.260 Below low normal 7.320-7.430 (units) Final Carbon dioxide [Partial pressure] in Venous blood 10/29/2023 08:52:00 44.2 40.0-60.0 (mmHg) Final Oxygen [Partial pressure] in Venous blood 10/29/2023 08:52:00 56.6 Above high normal 25.0-50.0 (mmHg) Final Base excess, Capillary 10/29/2023 08:52:00 -7.1 Below low normal -2.0-2.0 (mmol/L) Final Hemoglobin [Mass/volume] in Blood by Oximetry 10/29/2023 08:52:00 9.9 Below low normal 14.0-16.8 (g/dL) Final Oxyhemoglobin, Venous (FO2HB) 10/29/2023 08:52:00 79.2 40.0-85.0 (% total Hgb) Final Carboxyhemoglobin 10/29/2023 08:52:00 1.6 Above high normal <=1.5 (% total Hgb) Final Smokers: 0-9.0 % Methemoglobin 10/29/2023 08:52:00 1.0 <= 1.5 (% total Hgb) Final Deoxyhemoglobin/Hemoglo bin.total in Venous blood 10/29/2023 08:52:00 18.2 (% total Hgb) Final Oxygen content in Venous blood 10/29/2023 08:52:00 11.1 7.0-18.0 (%vol) Final Bicarbonate, Venous, POC (i-STAT) 10/29/2023 08:52:00 19.1 Below low normal 23.0-31.0 (mmol/L) Final Performing Location LAB[facility]ATORY [facility] - [facility] [address] [facility] [address]
--- OUTSIDE RECORDS SUMMARY | 2024-03-17 14:29 | External Medical Summary | Summary of Care ---
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 Encounter Details Date Type Department Care Team ([facility] st Contact Info) Description 10/31/2023 Telephone [facility] [place] [address] [place] [address] Kori Scott MD [address] [place] [address] Advice ( FYI: Ed to [...] (Oral) 1981,04/11 Pneumococcal Conjugate Vacci ne, 20-valent ([id number]) 11/17/2022 Pneumococcal Polysaccharide PPV23 (Pneumovax) 02/03/2004 Seasonal [...] encounter Miscellaneous Notes * Telephone Encounter - Kori Scott MD - 10/31/2023 2:44 PM EST Rheumatology Patient Event Notification - Physician Review Patient: Chandan Donato [id number] Event Notification reviewed. Chart reviewed. Recommendations: Agree with care plan - no further action needed. Recommendation Details: No adjustment to gout meds needed. Communication: No communication needed. Kori Scott MD Physician Time: 5 minutes * Telephone Encounter - Tory Obrien LPN - 10/31/2023 2:26 PM EST Rheumatology Patient Event Notification - Nurse Summary for Physician Review Patient: Chandan Donato [id number] Event: Admitted to [facility] 2/17/24 Hypotension and vomiting / passed out X 2 Non-Biologic: None Biologic: None Prednisone: None Tory Obrien LPN Notification Date: 10/31/2023 Nurse Chart review time: 5 minutes documented in this encounter Plan of Treatment Upcoming Encounters Date Type Department Care Team (Late st Contact Info) Description 11/03/2023 10:40 AM EST Office Visit [facility] [address] [place] [address] Tomer Garner MD [address] [place] [phone] 11/03/2023 1:00 PM EST Office Visit Home Dialysis [address] [place] [address] Mdc, Peritoneal Dialysis [address] [place] [address] 11/07/2023 10:00 AM EST Telemedicine Sleep Disorders Medicine [facility] [address] [place] [address] Roxana Jewell PA-C [address] [place] [address] 11/10/2023 8:00 AM EST Treatment Home Dialysis [address] [phone] Nurse, Lacne Bee [address] [phone] 11/10/2023 1:00 PM EST Nurse Only Home Dialysis [address], [place] [phone] Nurse, Lance [address], [place] [address] 12/04/2023 1:00 PM EDT Office Visit Home Dialysis Clau [address], [place] [address] [facility] [address] [place] [address] 12/11/2023 8:00 AM EDT Treatment Home Dialysis Clau [address], [place] [phone] Nurse, Lance [address] [employer] [address], [place] [address] 12/11/2023 1:00 PM EDT Nurse Only Home Dialysis Clau [address], [place] [phone] Nurse, Lance [address] [employer] [address], [place] [address] 12/26/2023 1:00 PM EDT Office Visit Home Dialysis [address], [place] [address] [facility] [address] [place] [place] [address] 01/10/2024 8:00 AM EDT Treatment Home Dialysis Clau [address] [place], [place] [phone] Nurse, Lance [address], [place] [address] 01/10/2024 1:00 PM EDT Nurse Only Home Dialysis Clau [address] [place], [place] [phone] Nurse, Lance [address] [employer] [address], [place] [address] 02/08/2024 1:00 PM EDT Office Visit Home Dialysis [address], [place] [address] [facility] [address] [place] [address] 02/10/2024 8:00 AM EDT Treatment Home Dialysis [address]au [address] [place], [place] [phone] Nurse, [employer] [address], [place] [address] 02/12/2024 1:00 PM EDT Nurse Only Home Dialysis [address]au [address], [place] [phone] Nurse, [employer] [address], [place] 03/05/2024 1:00 PM EDT Office Visit Home Dialysis Clau [address], [place] [address] [facility] [address] [place] [address] 03/11/2024 8:00 AM EDT Treatment Home Dialysis [address]au [address], [place] [phone] Nurse, [employer] [address], [place] [address] 03/11/2024 1:00 PM EDT Nurse Only Home Dialysis [address], [place] [phone] Nurse, [employer] [address], [place] [address] 03/19/2024 1:00 PM EDT Office Visit Home Dialysis Clau [address], [place] [address] [facility] D[place] [address] [place] [address] 04/11/2024 8:00 AM EDT Treatment Home Dialysis [address] [place], [place] [address] Nurse, Lance [employer] [address], [place] [address] 04/11/2024 1:00 PM EDT Nurse Only Home Dialysis [address], [place] [address] Nurse, Lance [employer] [address], [place] [address] 04/29/2024 1:00 PM EDT Office Visit Home Dialysis [address]au [address], [place] [address] [facility] [address] [facility], [place] [address] 05/12/2024 8:00 AM EDT Treatment Home Dialysis [address]au [address] [place], [place] [phone] Nurse, [employer] [address], [place] [address] 05/14/2024 1:00 PM EDT Nurse Only Home Dialysis [address] [place], [place] [address] Nurse, Lance [employer] [address], [place] [address] 06/07/2024 1:00 PM EDT Office Visit Home Dialysis [address], [place] [address] [facility] [place] [address] [place] [address] 06/11/2024 8:00 AM EDT Treatment Home Dialysis [address]au [address] [place], [place] [address] Nurse, [address] [employer] [address], [place] [address] 06/11/2024 1:00 PM EDT Nurse Only Home Dialysis [address] [place], [place] [address] Nurse, [address] [facility], [place] [address] 06/25/2024 1:00 PM EDT Office Visit Home Dialysis [address], [place] [address] [facility] [address] [place] [address] 07/12/2024 8:00 AM EDT Treatment Home Dialysis [address]au [address], [place] [phone] Nurse, [employer] [address], [place] [address] 07/12/2024 1:00 PM EDT Nurse Only Home Dialysis [address], [place] [phone] Nurse, Lance Lopez [employer] [address] [place] [address] 07/22/2024 1:00 PM EST Office Visit Home Dialysis Clua [address], [place] [address] [facility] [address] [facility] [place] [address] 08/11/2024 8:00 AM EST Treatment Home Dialysis [address]au [address], [place] [phone] Nurse, Lance Jessica [employer] [address], [place] [address] 08/12/2024 1:00 PM EST Nurse Only Home Dialysis Clau [address] [place] [address] [address] Nurse, [address] [employer] [address] [place] [address] 08/20/2024 1:00 PM EST Office Visit Home Dialysis [address] [place] [address] Mdc, Peritoneal Dialysis [address] [place] [id number] Health Maintenance Due Date Last Done Comments [...] Advance Directives occurred with: Patient Care Teams Training Officer Relationship Specialty Start Date End Date Tomer Garner MD [address] [place] [address] PCP - General 09/19/02 documented as of this encounter
--- OUTSIDE RECORDS SUMMARY | 2024-03-17 14:29 | External Medical Summary ---
Author Name Unknown Address Unknown Organization K01:[facility]ORY [facility] [place] [address] [place] [address] Laboratory Report Ordering Provider Test Date Status IZABELLA CASTAÑEDASA 10/29/2023 08:06:00 Final Observation Date Value Abnormality Reference (Units ) Status Cortisol 10/29/2023 08:06:00 13.9 2.5-19.5 ( ug/dL) Final AM Reference Range: 4.8 - 19 .5 ug/dL
PM Reference Range: 2.5 - 11.9 ug/dL Performing Location LAB[facility]ORY [facility] [place] [address] [place] [address]
--- OUTSIDE RECORDS SUMMARY | 2024-03-17 14:29 | External Medical Summary ---
Author Name Unknown Address Unknown Organization K01:LAB[facility]ATORY [facility] [place] - [address] [facility] [address] Laboratory Report Ordering Provider Test Date Status PINO CASTAÑEDA 10/30/2023 05:50:00 Final Observation Date Value Abnormality Reference (Units ) Status BUN 10/30/2023 05:50:00 79 Above high normal 6-20 (mg/dL) Final Creatinine 10/30/2023 05:50:00 23.1 Above high normal 0.6-1.2 (mg/dL) Final Glomerular filtration rate/1.73 sq M.predicted [Volume Rate/Area] in Serum, Plasma or Blood by Creatinine-based formula (CKD-EPI) 10/30/2023 05:50:00 2 Below low normal >=60 (mL/min) Final eGFR is calculated based on the CKD-EPI 2020 equation SODIUM 10/30/2023 05:50:00 135 135-146 (m mol/L) Final Potassium 10/30/2023 05:50:00 3.9 3.5-5.1 (m mol/L) Final Cl 10/30/2023 05:50:00 89 Below low normal 98- 107 (mmol/L) Final CO2 10/30/2023 05:50:00 19 Below low normal 22- 32 (mmol/L) Final Anion gap 10/30/2023 05:50:00 27 Above high normal 7- 15 (mmol/L) Final Glucose 10/30/2023 05:50:00 121 Above high normal 70 -120 (mg/dL) Final Albumin 10/30/2023 05:50:00 4.0 3.8-5.0 (g /dL) Final AST (Aspartate aminotransferase) 10/30/2023 05:50:00 7 Below low normal 10-50 (U/L) Final Alk Phos 10/30/2023 05:50:00 65 35-130 (U/ L) Final Bilirubin, Total 10/30/2023 05:50:00 0.4 <=1 .2 (mg/dL) Final Calcium 10/30/2023 05:50:00 8.8 8.4-10.2 ( mg/dL) Final Protein 10/30/2023 05:50:00 7.0 6.0-8.3 (g /dL) Final ALT (Alanine aminotransferase) 10/30/2023 05:50:00 13 10-50 (U/L) Melvin bolden Performing Location LABORATORY [facility] [place] - [address] [facility] [address]
--- OUTSIDE RECORDS SUMMARY | 2024-03-17 14:29 | External Medical Summary | Summary of Care ---
Author Name Unknown Organization [facility] Address [address] [place] [address] Phone [phone] Care Team Providers Care Senior Living Sales Counselor Name Role Phone Tomer Garner MD Primary Care Provider [phone] Reason for Visit * Reason Onset Date Comments [facility]: Maintenance 10/31/2023 Encounter Details Date Type Department Care Team ([facility] st Contact Info) Description 10/31/2023 Telephone [facility], [facility] [address] [place] [address] [facility], Nurse [facility] [address] [place] [address] [facility]: Maintenance Allergies No known active allergiesdocumented as of [...] (Oral) 1981,04/11 Pneumococcal Conjugate Vacci ne, 20-valent ([id number]) 11/17/2022 Seasonal Influenza, PF, 6 M & [...] Telephone Encounter - Karen Guzman LPN - 10/31/2023 1:05 PM EST D/c home Sent to [facility] enrollment chat to reach out for [facility] documented in this encounter Plan of Treatment Upcoming Encounters Date Type Department Care Team (Late st Contact Info) Description 11/03/2023 10:40 AM EST Office Visit [facility] [address] [place] [address] Tomer Garner MD [address] [place] [address] 11/03/2023 1:00 PM EST Office Visit Home Dialysis [address] [place] [address] [facility]dc, Peritoneal Dialysis [address] [place] [address] 11/07/2023 10:00 AM EST Telemedicine Sleep Disorders Medicine [facility] [address] [place] [address] Roxana Jewell PA-C [address] [place] [address] 11/10/2023 8:00 AM EST Treatment Home Dialysis [address] [place], [place] [phone] Nurse, [employer] [facility] [address] [place] [address] 11/10/2023 1:00 PM EST Nurse Only Home Dialysis [address] [place] [address] Nurse, [employer] [address] [place] [address] 12/04/2023 1:00 PM EDT Office Visit Home Dialysis [facility] [place] [address] Mdc, Peritoneal Dialysis [address] [facility] [place] [address] 12/11/2023 8:00 AM EDT Treatment Home Dialysis [facility] [place] [address] Nurse, [address] [employer] [address] [place] [address] 12/11/2023 1:00 PM EDT Nurse Only Home Dialysis [address] [place], [place] [address] Nurse, [address] [employer] [address], [place] [address] 12/26/2023 1:00 PM EDT Office Visit Home Dialysis [facility] [place], [place] [phone] [facility], Peritoneal Dialysis [address] [place] [address] 01/10/2024 8:00 AM EDT Treatment Home Dialysis [facility] [place], [place] [phone] Nurse, [address] [facility] [address] [place] [address] 01/10/2024 1:00 PM EDT Nurse Only Home Dialysis [address] [place], [place] [phone] Nurse, [address] [employer] [address] [place] [address] 02/08/2024 1:00 PM EDT Office Visit Home Dialysis [facility] [place] [address] [facility], Peritoneal Dialysis [address] [facility] [place] [place] [address] 02/10/2024 8:00 AM EDT Treatment Home Dialysis [facility] [place], [place] [address] Nurse, [address] [employer] [address] [place] [address] 02/12/2024 1:00 PM EDT Nurse Only Home Dialysis [address] [place] [address] Nurse, [address] [employer] [address], [place] [address] 03/05/2024 1:00 PM EDT Office Visit Home Dialysis [facility] [place], [place] [address] [facility], Peritoneal Dialysis [address] [place] [address] 03/11/2024 8:00 AM EDT Treatment Home Dialysis [facility] [place], [place] [phone] Nurse, [address] [employer] [address] [place], [place] [address] 03/11/2024 1:00 PM EDT Nurse Only Home Dialysis [facility] [place], [place] [phone] Nurse, Lance [address] [employer] [address] [place] [address] 03/19/2024 1:00 PM EDT Office Visit Home Dialysis [facility] [place], [place] [address] [facility], Peritoneal Dialysis [address] [place] [facility] [place] [address] 04/11/2024 8:00 AM EDT Treatment Home Dialysis [facility] [place], [place] [phone] Nurse, [address] [employer] [address] [place] [address] 04/11/2024 1:00 PM EDT Nurse Only Home Dialysis [address] [place], [place] [phone] Nurse, Lance [address] [employer] [address], [place] [address] 04/29/2024 1:00 PM EDT Office Visit Home Dialysis [facility] [place], [place] [address] [facility], Peritoneal Dialysis [address] [place] [address] 05/12/2024 8:00 AM EDT Treatment Home Dialysis [facility] [place], [place] [address] Nurse, [employer] [address], [place] [address] 05/14/2024 1:00 PM EDT Nurse Only Home Dialysis [address] [place], [place] [phone] Nurse, [employer] [address], [place] [address] 06/07/2024 1:00 PM EDT Office Visit Home Dialysis [facility] [place], [place] [address] [facility], Peritoneal Dialysis [address] [place] [facility] [place] [address] 06/11/2024 8:00 AM EDT Treatment Home Dialysis [facility] [place], [place] [address] Nurse, [employer] [address], [place] [address] 06/11/2024 1:00 PM EDT Nurse Only Home Dialysis [facility] [place], [place] [address] Nurse, [employer] [address], [place] [address] 06/25/2024 1:00 PM EDT Office Visit Home Dialysis [facility] [place], [place] [address] [facility], Peritoneal Dialysis [address] [facility] [place] [address] 07/12/2024 8:00 AM EDT Treatment Home Dialysis [facility] [place], [place] [address] Nurse, Lance Lopez [facility] [address], [place] [address] 07/12/2024 1:00 PM EDT Nurse Only Home Dialysis [facility] [place], [place] [address] Nurse, Lance Jessica [facility] [address], [place] [address] 07/22/2024 1:00 PM EST Office Visit Home Dialysis [facility] [place], [place] [phone] [facility], Peritoneal Dialysis [address] [place] [address] 08/11/2024 8:00 AM EST Treatment Home Dialysis [facility] [place], [place] [address] Nurse, Lance [employer] [address], [place] [address] 08/12/2024 1:00 PM EST Nurse Only Home Dialysis [facility] [place] [address] Nurse, Lance Jessica Bee [address], [place] [address] 08/20/2024 1:00 PM EST Office Visit Home Dialysis [facility] [place], [place] [address] [facility], Peritoneal Dialysis [address] [place], [place] [id number] Health Maintenance Due Date Last Done Comments [...] Directives occurred with: Patient Care Teams Senior Living Sales Counselor Relationship Specialty Start Date End Date Tomer Garner MD [address] [facility] [address] PCP - General 09/19/02 documented as of this encounter
--- OUTSIDE RECORDS SUMMARY | 2024-03-17 14:30 | External Medical Summary ---
Author Name Unknown Address Unknown Organization [id number]:[facility] [address] [place] [address] Laboratory Report Ordering Provider Test Date Status LACEY ZAVALETA 10/28/2023 13:17:00 Final Anticoagulation may affect t esting. Refer to [employer] Test Catalog for a list of effects. Observation Date Value Abnormality Reference (Units ) Status aPTT panel - Platelet poor plasma 10/28/2023 13:17:00 38 21-38 (seconds) Final Performing Location [facility] [place] [address] [place] [address]
--- OUTSIDE RECORDS SUMMARY | 2024-03-17 14:30 | External Medical Summary ---
Author Name Unknown Address Unknown Organization [id number]:[facility] [place] - [address] [place] [address] Laboratory Report Ordering Provider Test Date Status DENZELCINDYDENNYS 10/28/2023 16:25:16 Final Observation Date Value Abnormality Reference (Units) Status Bacteria identified in Specimen by Culture 10/28/2023 16:25:16 No growth Final Gram Stain 10/28/2023 16:25:16 Rare Polymorphonuclear leukocytes Final Gram Stain 10/28/2023 16:25:16 No organisms seen Final Test: Culture, Body Fluid, A erobic
Specimen Source: Peritoneal Dialysate
Specimen Type: Body Fluid
Specimen Date: 10/28/2023 4:25 PM
Result Date: 11/02/2023 7:59 AM
Result Status: Final result
Resulting Lab: [facility]
[address]
[place] [address]

CULTURE

No growth

STAIN

Rare Polymorphonuclear leukocytes

No organisms seen

null Performing Location [facility] - [address] [place] [address]
--- OUTSIDE RECORDS SUMMARY | 2024-03-17 14:30 | External Medical Summary | Summary of Care ---
Author Name Unknown Organization [facility] Address [address] [place] [address] Phone [phone] Care Team Providers Care Retail Advertising Account Executive Name Role Phone Tomer Garner MD Primary Care Provider [phone] Reason for Visit * Reason Comments Outpatient Testing Encounter Details Date Type Department Care Team (Late st Contact Info) Description 10/27/2023 3:10 PM EST Laboratory Outpatient Laboratory, [facility] [address] [place] [address] [facility], Lab B1a [address] [place] [address] ESRD on peritoneal dialysis (HCC) Allergies No known active allergiesdocumented as of this encounter (statuses as of 10/27/2023) Medications Medication Sig Dispensed Refills Start Date End Date Status Lovastatin 10 MG Oral TabletIndications: Kidney replaced by transplant Take 1 Tablet by mouth in the morning. 90 Tablet 3 09/28/2022 Active Mycophenolate Mofetil 500 MG Oral Tablet (CellCept) Take 1 Tablet by mouth in the morning and 1 Tablet before bedtime. 360 Tablet 1 11/07/2022 Active Losartan Potassium 25 MG Oral Tablet (Cozaar)Indication s:HTN, goal below 130/80 Take 1 Tablet by mouth in the morning. 90 Tablet 3 11/17/2022 Active Additional Information Patient not taking.Reported on 08/31/2023 cycloSPORINE Modified 25 MG Oral CapsuleIndications :Kidney replaced by transplant Take 2 capsules in the morning and 2 capsules in the evening 360 Capsule 3 12/02/2022 Active Folic Acid 1 MG Oral Tablet Take 1 Tablet by mouth in the morning. 90 Tablet 1 12/01/2022 Active Additional Information Patient not taking.Reported on 08/31/2023 Febuxostat 80 MG Oral Tablet (Uloric)Indication s:Chronic gout without tophus, unspecified cause, unspecified site Take 1 Tablet by mouth in the morning. 90 Tablet 3 03/23/2023 Active Cinacalcet HCl 30 MG Oral Tablet (Sensipar) Take 1 Tablet by mouth in the morning. 90 Tablet 3 05/09/2023 Active NIFEdipine ER 30 MG Oral Tablet Extended Release 24 Hour (Adalat CC) Take 1 Tablet by mouth in the morning. 60 Tablet 6 06/07/2023 Active Calcium Acetate (Phos Binder) 667 MG [...] Active Additional Information Patient not taking.Reported on 09/27/2023 Gentamicin Sulfate 0.1 % External CreamIndications:E SRD on peritoneal dialysis (HCC) Apply topically to affected area daily. Apply to PD exit catheter site daily after showering and cover with bandage 15 g 2 09/08/2023 Active Dialyvite Oral Tablet Take 1 Tablet by mouth in the morning. 30 Tablet 11 09/28/2023 Active Metoprolol Succinate ER 100 MG Oral Tablet Extended Release 24 Hour (toPROL XL) TAKE 1 TABLET BY MOUTH EVERY DAY IN THE MORNING 90 Tablet 6 09/29/2023 Active documented as of this encounter (statuses as of 10/27/2023) Active Problems Problem Noted Date Diagnosed Date Anemia in chronic renal disease 04/27/2023 Anemia of chronic renal failure, stage 5 023 ESRD on peritoneal dialysis 02/21/2023 Body mass index (BMI) of 40.0 to 44.9 in adult 0 12/19/2022 Overview: Per Obesity protocol Bandemia 11/03/2022 High anion gap metabolic acidosis 11/03/2022 Hypokalemia 11/03/2022 Sepsis due to pneumonia 11/01/2022 Pneumonia due to infectious organism 10/31/2022 ULICES (acute kidney injury) 10/31/2022 Kidney replaced by transplant 05/12/2017 Gouty arthropathy 08/29/2016 ADVANCE DIRECTIVE INFORMATION 01/02/2009 Overview: No, Advance Directive brochure given to patient. 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 PURE HYPERCHOLESTEROLEM 04/25/200208/11 Overview: Per Lipid Taxonomy. 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 1 Hemoptysis 04/11/1996 08/11/1996 Overview: ICD-10 update of inactive term documented as of this encounter (statuses as of 10/27/2023) Immunizations Name Administration Dates Next Due COVID-19 mRNA, LNP-s, No Pre serve, 2-Dose Series (Moderna) 11/23/2020,10/18/2020 DTP Vaccine 1981,1981,1981 HEP B - Hepatitis B (Dialysis/Immumocomp Pt) 05/02/2023,04/04/2023 MMR - Measles/Mumps/Rubella Vaccine 05/11/1982 OPV - Polio Virus Vaccine (Oral) 1981,04/11 Pneumococcal Conjugate Vacci ne, 20-valent ([id number]) 11/17/2022 Seasonal Influenza, PF, 6 M & [...] Recorded PHQ Adult Total Score 0 11/17/2022 Sex and Gender Information Value Date Recorded [...] EST Office Visit Home Dialysis [address]ah [address], Dr, [place] [phone] [facility], Peritoneal Dialysis [address] [place] [address] 11/10/2023 8:00 AM EST Treatment Home Dialysis [address] [place] [address] Nurse, [address] [employer] [address], [place] [address] 11/10/2023 1:00 PM EST Nurse Only Home Dialysis [address] [place] [address] Nurse, [address] [employer] [place], [place] [address] 12/04/2023 1:00 PM EDT Office Visit Home Dialysis Hamz[address], [place] [phone] [facility], Peritoneal Dialysis [address] [place] [facility] [place] [address] 12/11/2023 8:00 AM EDT Treatment Home Dialysis [facility] [place], [place] [address] Nurse, [address] [employer] [place], [place] [address] 12/11/2023 1:00 PM EDT Nurse Only Home Dialysis [address] [place], [place] [address] Nurse, [address] [employer] [place], [place] [address] 12/26/2023 1:00 PM EDT Office Visit Home Dialysis [address] [place], [place] [address] Mdc, Peritoneal Dialysis [address] [place] [address] 01/10/2024 8:00 AM EDT Treatment Home Dialysis [address] [place], [place] [address] Nurse, [address] [employer] [address] [place], [place] [address] 01/10/2024 1:00 PM EDT Nurse Only Home Dialysis [address] [place], [place] [phone] Nurse, [address] [employer] [address], [place] [address] 02/08/2024 1:00 PM EDT Office Visit Home Dialysis [address], [place] [address] [facility], Peritoneal Dialysis [address] [place] [facility] [place] [address] 02/10/2024 8:00 AM EDT Treatment Home Dialysis Hamz[address] [place], [place] [phone] Nurse, [address] [employer] [address] [place] [address] 02/12/2024 1:00 PM EDT Nurse Only Home Dialysis [address] [place], [place] [address] Nurse, [address] [employer] [address] [place] [address] 03/05/2024 1:00 PM EDT Office Visit Home Dialysis [facility] [place], [place] [address] [facility], Peritoneal Dialysis [address] [place] [facility] [place] [address] 03/11/2024 8:00 AM EDT Treatment Home Dialysis [address] [place] [address] Nurse, [address] [employer] [address], [place] [address] 03/11/2024 1:00 PM EDT Nurse Only Home Dialysis [address] [place], [place] [address] Nurse, [address] [employer] [address] [place], [place] [address] 03/19/2024 1:00 PM EDT Office Visit Home Dialysis [address] [place] [address] [facility], Peritoneal Dialysis [address] [facility] [place] [place] [address] 04/11/2024 8:00 AM EDT Treatment Home Dialysis Hamzah [address] [place], [place] [phone] Nurse, [address] [employer] [address] [place] [address] 04/11/2024 1:00 PM EDT Nurse Only Home Dialysis [address] [place], [place] [address] Nurse, [address] [employer] [address] [place] [address] 04/29/2024 1:00 PM EDT Office Visit Home Dialysis [address] [place] [address] [facility], Peritoneal Dialysis [address] [place] [address] 05/12/2024 8:00 AM EDT Treatment Home Dialysis [address] [place] [address] Nurse, [address] [employer] [address] [place] [address] 05/14/2024 1:00 PM EDT Nurse Only Home Dialysis [address] [place] [address] Nurse, [address] [employer] [address] [place], [place] [address] 06/07/2024 1:00 PM EDT Office Visit Home Dialysis [address], [place] [address] [facility], Peritoneal Dialysis [address] [place] [address] 06/11/2024 8:00 AM EDT Treatment Home Dialysis [facility] [place], [place] [phone] Nurse, [address] [employer] [address], [place] 06/11/2024 1:00 PM EDT Nurse Only Home Dialysis [address] [place], [place] [phone] Nurse, [address] [employer] [address] [place], [place] [address] 06/25/2024 1:00 PM EDT Office Visit Home Dialysis [address], [place] [address] [facility], Peritoneal Dialysis [address] [place] [address] 07/12/2024 8:00 AM EDT Treatment Home Dialysis [facility], [place] [phone] Nurse, [address] [employer] [address] [place], [place] [address] 07/12/2024 1:00 PM EDT Nurse Only Home Dialysis [facility] [place], [place] [phone] Nurse, [address] [employer] [address] [place], [place] [address] 07/22/2024 1:00 PM EST Office Visit Home D[place] [address] [facility], Peritoneal Dialysis [address] [facility] [address] [place], [place] [address] 08/11/2024 8:00 AM EST Treatment Home Dialysis [address] [place], [place] [phone] Nurse, [employer] [address] [place] [address] 08/12/2024 1:00 PM EST Nurse Only Home Dialysis [address] [place], [place] [address] Nurse, [employer] [address] [address] [place] [address] 08/20/2024 1:00 PM EST Office Visit Home Dialysis [facility] [place] [address] [facility], Peritoneal Dialysis [address] [facility] [place], [place] [address] Health Maintenance Due Date Last Done Comments COVID-19 Vaccine (3 - Moderna risk series) 12/21/2020 11/23/2020, 10/18/2020 Hepatitis B (3 of 4 - Risk Dialysis Recombivax 3-dose series) 10/05/2023 05/02/2023, 04/04/2023 Depression Screening 11/18/2023 11/17/2022 Lipid Panel 05/18/2026 05/18/2021, 12/0 09/2009, 11/11/2004, Additional history exists Diabetes Screening 10/23/2026 10/23/2023, 0 10/19/2023, 10/18/2023, Additional history exists DTaP,Tdap,and Td Vaccines (6 [...] Date Activated Date Inactivated Comments Full Code 11/01/2022 10:32 PM 11/07/2022 3:42 PM This order reflects the patients wishes and were consensually agreed upon. Question Answer Comments Discussion of Advance Directives occurred with: Patient Full Code 10/31/2022 9:32 PM 11/01/2022 9:56 PM This order reflects the patients wishes and were consensually agreed upon. Question Answer Comments Discussion of Advance Directives occurred with: Patient Care Teams [employer] Account Executive Relationship Specialty Start Date End Date Tomer Garner MD [address] [place] [address] PCP - General 09/19/02 documented as of this encounter
--- OUTSIDE RECORDS SUMMARY | 2024-03-17 14:30 | External Medical Summary ---
Author Name Unknown Address Unknown Organization K01:[facility] - [address] [place] [address] [address] Laboratory Report Ordering Provider Test Date Status MEGHANNLACEY 10/28/2023 15:45:26 Final Observation Date Value Abnormality Reference (Units ) Status Methicillin resistant Staphylococcus aureus (MRSA) DNA [Presence] in Nose by MATILDE with probe detection 10/28/2023 15:45:26 Negative Negative Final No Methicillin resistant Sta phylococcus aureus detected by PCR (amplified probe). Performing Location [facility] - [address] [place] [address]
--- OUTSIDE RECORDS SUMMARY | 2024-03-17 14:30 | External Medical Summary ---
Author Name Unknown Address Unknown Organization K01:[facility] - [address] [place] [address] Laboratory Report Ordering Provider Test Date Status MADDY,PINO 10/29/2023 06:19:00 Final Observation Date Value Abnormality Reference (Units ) Status Magnesium 10/29/2023 06:19:00 2.1 1.5-2.6 (m g/dL) Final Performing Location [facility] - [address] [place] [address]
--- OUTSIDE RECORDS SUMMARY | 2024-03-17 14:30 | External Medical Summary ---
Author Name Unknown Address Unknown Organization K01:LAB[facility]ATORY [facility] - [address] [facility] [address] Laboratory Report Ordering Provider Test Date Status LACEY ZAVALETA 10/28/2023 15:45:26 Final ADMITTED patient Observation Date Value Abnormality Reference (Units ) Status Adenovirus DNA [Presence] in Nasopharynx by MATILDE with non-probe detection 10/28/2023 15:45:26 Negative Negative Final Human coronavirus 229E RNA [Presence] in Nasopharynx by MATILDE with non-probe detection 10/28/2023 15:45:26 Negative Negative Final Human coronavirus HKU1 RNA [Presence] in Nasopharynx by MATILDE with non-probe detection 10/28/2023 15:45:26 Negative Negative Final Human coronavirus NL63 RNA [Presence] in Nasopharynx by MATILDE with non-probe detection 10/28/2023 15:45:26 Negative Negative Final Human coronavirus OC43 RNA [Presence] in Nasopharynx by MATILDE with non-probe detection 10/28/2023 15:45:26 Negative Negative Final SARS-CoV-2 (COVID-19) RNA [Presence] in Nasopharynx by MATILDE with non-probe detection 10/28/2023 15:45:26 Negative Negative Final Human metapneumovirus RNA [Presence] in Nasopharynx by MATILDE with non-probe detection 10/28/2023 15:45:26 Negative Negative Final Rhinovirus+Enterovirus RNA [Presence] in Nasopharynx by MATILDE with non-probe detection 10/28/2023 15:45:26 Negative Negative Final Influenza virus A RNA [Presence] in Nasopharynx by MATILDE with non-probe detection 10/28/2023 15:45:26 Negative Negative Final Influenza virus B RNA [Presence] in Nasopharynx by MATILDE with non-probe detection 10/28/2023 15:45:26 Negative Negative Final Parainfluenza virus 1 RNA [Presence] in Nasopharynx by MATILDE with non-probe detection 10/28/2023 15:45:26 Negative Negative Final Parainfluenza virus 2 RNA [Presence] in Nasopharynx by MATILDE with non-probe detection 10/28/2023 15:45:26 Negative Negative Final Parainfluenza virus 3 RNA [Presence] in Nasopharynx by MATILDE with non-probe detection 10/28/2023 15:45:26 Negative Negative Final Parainfluenza virus 4 RNA [Presence] in Nasopharynx by MATILDE with non-probe detection 10/28/2023 15:45:26 Negative Negative Final Respiratory syncytial virus RNA [Presence] in Nasopharynx by MATILDE with non-probe detection 10/28/2023 15:45:26 Negative Negative Final Bordetella pertussis.pertussis toxin promoter region [Presence] in Nasopharynx by MATILDE with non-probe detection 10/28/2023 15:45:26 Negative Negative Final Chlamydophila pneumoniae DNA [Presence] in Nasopharynx by MATILDE with non-probe detection 10/28/2023 15:45:26 Negative Negative Final Mycoplasma pneumoniae DNA [Presence] in Nasopharynx by MATILDE with non-probe detection 10/28/2023 15:45:26 Negative Negative Final Bordetella parapertussis [id number] DNA [Presence] in Nasopharynx by MATILDE with non-probe detection 10/28/2023 15:45:26 Negative Negative Final
The primers that detect Rhinovirus may cross react with some Enterorviruses. The validation of bronchial specimens, tracheal aspirates, and throats for this assay was developed and performance characteristics determined by [facility]. The validation of alternate specimen types has not been cleared or approved by the U.S. Food and Drug Administration (FDA). It has been determined that such clearance or approval is not necessary. [facility] LAB[facility]AT[facility] - [facility] [address]. [facility] [address]
--- OUTSIDE RECORDS SUMMARY | 2024-03-17 14:30 | External Medical Summary ---
Author Name Unknown Address Unknown Organization K01:LABORATORY [place] [address] [facility] [address] Laboratory Report Ordering Provider Test Date Status LACEY ZAVALETA 10/28/2023 13:01:00 Final Less than 0.5 ng/mL: Low ris k for progression to sepsis. Review patients condition for localized infections.

0.5 to 2.0 ng/mL: Intermediate risk for progresion to sepsis. Review underlying conditions. Recommend repeat PCT after 6 hours has elapsed.

Greater than 2.0 ng/mL: high risk for progression to sepsis unless other causes are known. Observation Date Value Abnormality Reference (Units ) Status Procalcitonin [Mass/volume] in Serum or Plasma by Immunoassay 10/28/2023 13:01:00 2.68 Above high normal <0.10 (ng/mL) Final Performing Location LABORATORY [facility] - [facility] [address] [facility] [address]. [facility] [address]
--- OUTSIDE RECORDS SUMMARY | 2024-03-17 14:30 | External Medical Summary ---
Author Name Unknown Address Unknown Organization K01:[facility] - [address] [facility] Laboratory Report Ordering Provider Test Date Status LACEY ZAVALETA 10/28/2023 13:01:00 Final Observation Date Value Abnormality Reference (Units ) Status Bacteria identified in Specimen by Culture 10/28/2023 13:01:00 No growth Final Test: Culture, Blood
Spe cimen Source: Blood, Venous
Specimen Type: Blood
Specimen Date: 10/28/2023 1:01 PM
Result Date: 11/02/2023 2:01 PM
Result Status: Final result
Resulting Lab: [facility]ATORY [facility]
[address]
[place] [address]

CULTURE

No growth

null Performing Location LAB[facility]ATORY [facility] - [address] [place] [address]
--- OUTSIDE RECORDS SUMMARY | 2024-03-17 14:30 | External Medical Summary ---
Author Name Unknown Address Unknown Organization K01:[facility]ORY [facility] - [address] [facility] [address] Laboratory Report Ordering Provider Test Date Status LACEY ZAVALETA 10/28/2023 13:01:00 Final Observation Date Value Abnormality Reference (Units ) Status BUN 10/28/2023 13:01:00 62 Above high normal 6-20 (mg/dL) Final Creatinine 10/28/2023 13:01:00 23.2 Above high normal 0.6-1.2 (mg/dL) Final Glomerular filtration rate/1.73 sq M.predicted [Volume Rate/Area] in Serum, Plasma or Blood by Creatinine-based formula (CKD-EPI) 10/28/2023 13:01:00 2 Below low normal >=60 (mL/min) Final eGFR is calculated based on the CKD-EPI 2020 equation SODIUM 10/28/2023 13:01:00 135 135-146 (m mol/L) Final Potassium 10/28/2023 13:01:00 3.7 3.5-5.1 (m mol/L) Final Cl 10/28/2023 13:01:00 88 Below low normal 98- 107 (mmol/L) Final CO2 10/28/2023 13:01:00 17 Below low normal 22- 32 (mmol/L) Final Anion gap 10/28/2023 13:01:00 30 Above high normal 7- 15 (mmol/L) Final Glucose 10/28/2023 13:01:00 104 70-120 (mg /dL) Final Albumin 10/28/2023 13:01:00 4.8 3.8-5.0 (g /dL) Final AST (Aspartate aminotransferase) 10/28/2023 13:01:00 7 Below low normal 10-50 (U/L) Final Alk Phos 10/28/2023 13:01:00 79 35-130 (U/ L) Final Bilirubin, Total 10/28/2023 13:01:00 0.4 <=1 .2 (mg/dL) Final Calcium 10/28/2023 13:01:00 9.8 8.4-10.2 ( mg/dL) Final Protein 10/28/2023 13:01:00 8.5 Above high normal 6. 0-8.3 (g/dL) Final ALT (Alanine aminotransferase) 10/28/2023 13:01:00 14 10-50 (U/L) Melvin bolden Performing Location LABORATORY [facility] - [address] [facility] [address]
--- OUTSIDE RECORDS SUMMARY | 2024-03-17 14:30 | External Medical Summary ---
Author Name Unknown Address Unknown Organization K01:[facility]ORY [facility] - [address] [facility] [address] Laboratory Report Ordering Provider Test Date Status LACEY ZAVALETA 10/28/2023 13:17:00 Final Observation Date Value Abnormality Reference (Units ) Status Lactic Acid, Whole Blood 10/28/2023 13:17:00 2.0 0.4-2.0 (mmol/L) Final Performing Location LAB[facility]ATORY [facility] - [address] [facility] [address]
--- OUTSIDE RECORDS SUMMARY | 2024-03-17 14:30 | External Medical Summary ---
Author Name Unknown Address Unknown Organization K01:[facility]ORY [facility] [place] [address] [place] [address] Laboratory Report Ordering Provider Test Date Status LACEY ZAVALETA 10/28/2023 13:17:00 Final Warfarin Therapy
INR: 2 .0-3.0 conventional anticoagulation
INR: 2.5- 3.5 high intensity anticoagulation Observation Date Value Abnormality Reference (Units ) Status PT 10/28/2023 13:17:00 16.2 Above high normal 11 .6-15.2 (seconds) Final INR 10/28/2023 13:17:00 1.3 Above high normal 0. 8-1.2 Final Performing Location LAB[facility]ORY [facility] [place] [address] [place] [address]
--- OUTSIDE RECORDS SUMMARY | 2024-03-17 14:30 | External Medical Summary ---
Author Name Unknown Address Unknown Organization K01:LABORATORY [facility] - 100 [facility] [address] Laboratory Report Ordering Provider Test Date Status MEGHANNCHARISMALACEY 10/28/2023 13:01:00 Final Observation Date Value Abnormality Reference (Units ) Status SYNC LEUKOCYTES IN BLOOD BY AUTOMATED COUNT 10/28/2023 13:01:00 19.22 Above high normal 4.00-10.80 (K/uL) Final Segs 10/28/2023 13:01:00 77.2 Above high normal 40.0-75.0 (%) Final Lymphs % 10/28/2023 13:01:00 10.8 Below low normal 18.0-42.0 (%) Final Monos 10/28/2023 13:01:00 10.7 1.0-11.0 (%) Final Eosinophils 10/28/2023 13:01:00 0.3 0.0-6.0 (%) Final Basos 10/28/2023 13:01:00 0.3 0.0-2.0 (%) Final Immature Granulocyte, Percent 10/28/2023 13:01:00 0.7 0.0-2.0 (%) Final Absolute Segs 10/28/2023 13:01:00 14.82 Above high normal 1.80-7.70 (K/uL) Final Lymphs, absolute 10/28/2023 13:01:00 2.08 1.00-4.80 (K/ul) Final Monos, Abs 10/28/2023 13:01:00 2.06 Above high normal 0.00-1.10 (K/uL) Final Eos, Abs 10/28/2023 13:01:00 0.06 0.00-0.70 (K/uL) Final Basos, Abs 10/28/2023 13:01:00 0.06 0.00-0.20 (K/uL) Final Immature Granulocytes, Number 10/28/2023 13:01:00 0.14 0.00-0.20 (K/uL) Final Performing Location LABORATORY [facility] [place] - [facility] [address] [facility] [address]
--- OUTSIDE RECORDS SUMMARY | 2024-03-17 14:30 | External Medical Summary | Summary of Care ---
Author Name Unknown Organization [facility] Address [address] [place] [address] Phone [phone] Care Team Providers Care Foreign Exchange Dealer Name Role Phone Tomer Garner MD Primary Care Provider Encounter Details Date Type Department Care Team (Late st Contact Info) Description 10/27/2023 Orders Only Home Dialysis [address] [place] [address] Sophia Hernandez, RN Pt labs confirmed with Dr. Lopez. Pt to do CCPD this weekend no CAPD. Allergies No known active allergiesdocumented as of [...] before bedtime. 360 Tablet 1 11/07/2022 Active cycloSPORINE Modified 25 MG Oral CapsuleIndications [...] the morning. 30 Tablet 11 09/28/2023 Active Potassium Chloride [facility] 20 MEQ Oral Tablet Extended Release Take 1 Tablet by mouth in the morning. 30 Tablet 11 10/27/2023 Active documented as of this encounter (statuses [...] (Oral) 1981,04/11 Pneumococcal Conjugate Vacci ne, 20-valent ([id number]) 11/17/2022 Seasonal Influenza, PF, 6 M & [...] Progress Notes * Sophia Hernandez RN - 10/27/2023 4:48 PM EST Pt labs confirmed with Dr. Lopez. Pt to do CCPD this weekend no CAPD. Pt to go to ER this weekend with any new abd pain, cloudy fluid, dizziness, nausea or vomiting or fevers. documented in this encounter Plan of Treatment Upcoming Encounters Date Type Department Care Team (Late st Contact Info) Description 11/03/2023 1:00 PM EST Office Visit Home Dialysis [address], [place], [place] [phone] [facility], Peritoneal Dialysis [address] [place] [address] 11/10/2023 8:00 AM EST Treatment Home Dialysis [address], [place] [address] Nurse, [place] [address] 11/10/2023 1:00 PM EST Nurse Only Home Dialysis [address] [place] [address] Nurse, [place] [address] 12/04/2023 1:00 PM EDT Office Visit Home Dialysis [address] [place], [place] [phone] [facility], Peritoneal Dialysis [address] [facility] [place] [address] 12/11/2023 8:00 AM EDT Treatment Home Dialysis [address], [place] [address] Nurse, [address] [place], [place] [address] 12/11/2023 1:00 PM EDT Nurse Only Home Dialysis [address], [place], [place] [address] Nurse, [place] [address] 12/26/2023 1:00 PM EDT Office Visit Home Dialysis [place] [place], [place] [address] [facility], Peritoneal Dialysis [address] [place] [address] 01/10/2024 8:00 AM EDT Treatment Home Dialysis [address] [place], [place] [address] Nurse, [address] [employer] [address] [place], [place] [address] 01/10/2024 1:00 PM EDT Nurse Only Home Dialysis [address] [place], [place] [phone] Nurse, [employer] [address] [place], [place] [address] 02/08/2024 1:00 PM EDT Office Visit Home Dialysis [address] [place], [place] [address] [facility], Peritoneal Dialysis [address] [place] [address] 02/10/2024 8:00 AM EDT Treatment Home Dialysis [address] [place], [place] [phone] Nurse, [employer] [address] [place] [address] 02/12/2024 1:00 PM EDT Nurse Only Home Dialysis [address] [place], [place] [address] Nurse, [address] [employer] [address] [place] [address] 03/05/2024 1:00 PM EDT Office Visit Home Dialysis [address] [place], [place] [address] [facility], Peritoneal Dialysis [address] [place] [address] 03/11/2024 8:00 AM EDT Treatment Home Dialysis [address] [place] [address] Nurse, [address] [employer] [address] [place], [place] [address] 03/11/2024 1:00 PM EDT Nurse Only Home Dialysis [address] [place], [place] [address] Nurse, [address] [employer] [address] [place], [place] [address] 03/19/2024 1:00 PM EDT Office Visit Home Dialysis [address] [place], [place] [address] [facility], Peritoneal Dialysis [address] [place] [address] 04/11/2024 8:00 AM EDT Treatment Home Dialysis [address] [place], [place] [address] Nurse, [address] [employer] [address] [place] [address] 04/11/2024 1:00 PM EDT Nurse Only Home Dialysis [address] [place], [place] [address] Nurse, [address] [place] [address] 04/29/2024 1:00 PM EDT Office Visit Home Dialysis [address] [place], [place] [address] [facility], Peritoneal Dialysis [address] [place] [address] 05/12/2024 8:00 AM EDT Treatment Home Dialysis [address] [place] [address] Nurse, [address] [employer] [address] [place] [address] 05/14/2024 1:00 PM EDT Nurse Only Home Dialysis [address] [place] [address] Nurse, [address] [employer] [address] [place], [place] [address] 06/07/2024 1:00 PM EDT Office Visit Home Dialysis [address] [place], [place] [address] [facility], Peritoneal Dialysis [address] [place] [address] 06/11/2024 8:00 AM EDT Treatment Home Dialysis [address] [place], [place] [phone] Nurse, [address] [employer] [address] [place], [place] [address] 06/11/2024 1:00 PM EDT Nurse Only Home Dialysis [address] [place], [place] [phone] Nurse, [address] [employer] [address] [place], [place] [address] 06/25/2024 1:00 PM EDT Office Visit Home Dialysis [address] [place], [place] [address] [facility], Peritoneal Dialysis [address] [place] [address] 07/12/2024 8:00 AM EDT Treatment Home Dialysis [address] [place], [place] [phone] Nurse, [address] [employer] [address] [place], [place] [address] 07/12/2024 1:00 PM EDT Nurse Only Home Dialysis [address] [place], [place] [phone] Nurse, [address] [employer] [address] [place], [place] [address] 07/22/2024 1:00 PM EST Office Visit Home Dialysis [address] [place] [address] [facility], Peritoneal Dialysis [address] [facility], [place] [address] 08/11/2024 8:00 AM EST Treatment Home Dialysis [address] [place], [place] [address] Nurse, [employer] [address] [place], [place] [address] 08/12/2024 1:00 PM EST Nurse Only Home Dialysis [address] [place], [place] [address] Nurse, [employer] [address] [place], [place] [address] 08/20/2024 1:00 PM EST Office Visit Home Dialysis [address] [place], [place] [address] [facility], Peritoneal Dialysis [address] [facility] [place] [address] Health Maintenance Due Date Last Done Comments COVID-19 Vaccine (3 - Moderna risk series) 12/21/2020 11/23/2020, 10/18/2020 Hepatitis B (3 of 4 - Risk Dialysis Recombivax 3-dose series) 10/05/2023 05/02/2023, 04/04/2023 Depression Screening 11/18/2023 11/17/2022 Lipid Panel 05/18/2026 05/18/2021, 12/0 09/2009, 11/11/2004, Additional history exists Diabetes Screening 10/27/2026 10/27/2023, 0 10/23/2023, 10/19/2023, Additional history exists DTaP,Tdap,and Td Vaccines (6 [...] Advance Directives occurred with: Patient Care Teams Foreign Exchange Dealer Relationship Specialty Start Date End Date Tomer Garner MD [address] [place] [phone] PCP - General 09/19/02 documented as of this encounter
--- OUTSIDE RECORDS SUMMARY | 2024-03-17 14:30 | External Medical Summary ---
Author Name Unknown Address Unknown Organization K01:LABORATORY [facility] - [facility] [address] [facility] [address] Laboratory Report Ordering Provider Test Date Status LACEY ZAVALETA 10/28/2023 13:01:00 Final Observation Date Value Abnormality Reference (Units ) Status WBC, Total 10/28/2023 13:01:00 19.22 Above high normal 4.00-10.80 (K/uL) Final RBC 10/28/2023 13:01:00 3.76 4.50-5.25 (M/uL) Final Hemoglobin 10/28/2023 13:01:00 11.4 Below low normal 14.0-16.8 (g/dL) Final HCT 10/28/2023 13:01:00 33.4 Below low normal 40.0-48.4 (%) Final MCV 10/28/2023 13:01:00 88.8 82.0-99.5 (fL) Final MCH 10/28/2023 13:01:00 30.3 27.0-34.0 (pg) Final MCHC 10/28/2023 13:01:00 34.1 32.0-36.0 (g/dL) Final RDW 10/28/2023 13:01:00 13.7 11.5-15.5 (%) Final Platelets 10/28/2023 13:01:00 222 140-400 (K/uL) Final MPV 10/28/2023 13:01:00 10.1 6.6-11.1 (fL) Final Nucleated erythrocytes/100 leukocytes [Ratio] in Blood by Automated count 10/28/2023 13:01:00 0 <=0 (/100 WBCs) Final Performing Location LABORATORY [facility] - [address] [facility] [address]
--- OUTSIDE RECORDS SUMMARY | 2024-03-17 14:30 | External Medical Summary ---
Author Name Unknown Address Unknown Organization K01:[facility] [place] [address] [place] [address] Laboratory Report Ordering Provider Test Date Status LACEY ZAVALETA 10/28/2023 13:17:00 Final Observation Date Value Abnormality Reference (Units ) Status Bacteria identified in Specimen by Culture 10/28/2023 13:17:00 No growth Final Test: Culture, Blood (site 2 )
Specimen Source: Blood, Venous
Specimen Type: Blood
Specimen Date: 10/28/2023 1:17 PM
Result Date: 11/02/2023 2:01 PM
Result Status: Final result
Resulting Lab: [facility]
[address]
[place] [facility]

CULTURE

No growth

null Performing Location LAB[facility]ORY [facility] - [address] [facility] [address]
--- OUTSIDE RECORDS SUMMARY | 2024-03-17 14:30 | External Medical Summary ---
Author Name Unknown Address Unknown Organization K01:LABORATORY [facility] [place] - [address] [place] [address] Laboratory Report Ordering Provider Test Date Status LACEY ZAVALETA 10/28/2023 15:15:00 Final Observation Date Value Abnormality Reference (Units ) Status Troponin T 10/28/2023 15:15:00 70 Above high normal < =22 (ng/L) Final Performing Location LABORATORY [facility] - [address] [place] [address]
--- OUTSIDE RECORDS SUMMARY | 2024-03-17 14:30 | External Medical Summary ---
Author Name Unknown Address Unknown Organization K01:LABORATORY [facility] [place] - [address] [place] [address] Laboratory Report Ordering Provider Test Date Status PINO CASTAÑEDA 10/29/2023 08:06:00 Final Observation Date Value Abnormality Reference (Units ) Status BUN 10/29/2023 08:06:00 76 Above high normal 6-20 (mg/dL) Final Creatinine 10/29/2023 08:06:00 23.4 Above high normal 0.6-1.2 (mg/dL) Final Glomerular filtration rate/1.73 sq M.predicted [Volume Rate/Area] in Serum, Plasma or Blood by Creatinine-based formula (CKD-EPI) 10/29/2023 08:06:00 2 Below low normal >=60 (mL/min) Final eGFR is calculated based on the CKD-EPI 2020 equation SODIUM 10/29/2023 08:06:00 136 135-146 (m mol/L) Final Potassium 10/29/2023 08:06:00 3.8 3.5-5.1 (m mol/L) Final Cl 10/29/2023 08:06:00 89 Below low normal 98- 107 (mmol/L) Final CO2 10/29/2023 08:06:00 18 Below low normal 22- 32 (mmol/L) Final Anion gap 10/29/2023 08:06:00 29 Above high normal 7- 15 (mmol/L) Final Glucose 10/29/2023 08:06:00 116 70-120 (mg /dL) Final Calcium 10/29/2023 08:06:00 9.0 8.4-10.2 ( mg/dL) Final Performing Location LABORATORY [facility] [place] - [address] [place] [address]
--- OUTSIDE RECORDS SUMMARY | 2024-03-17 14:30 | External Medical Summary ---
Author Name Unknown Address Unknown Organization K01:LABORATORY [facility] [place] - [address] [facility] [address] Laboratory Report Ordering Provider Test Date Status PINO CASTAÑEDA 10/29/2023 06:19:00 Final Observation Date Value Abnormality Reference (Units ) Status BUN 10/29/2023 06:19:00 74 Above high normal 6-20 (mg/dL) Final Creatinine 10/29/2023 06:19:00 23.2 Above high normal 0.6-1.2 (mg/dL) Final Glomerular filtration rate/1.73 sq M.predicted [Volume Rate/Area] in Serum, Plasma or Blood by Creatinine-based formula (CKD-EPI) 10/29/2023 06:19:00 2 Below low normal >=60 (mL/min) Final eGFR is calculated based on the CKD-EPI 2020 equation SODIUM 10/29/2023 06:19:00 136 135-146 (m mol/L) Final Potassium 10/29/2023 06:19:00 3.7 3.5-5.1 (m mol/L) Final Cl 10/29/2023 06:19:00 88 Below low normal 98- 107 (mmol/L) Final CO2 10/29/2023 06:19:00 18 Below low normal 22- 32 (mmol/L) Final Anion gap 10/29/2023 06:19:00 30 Above high normal 7- 15 (mmol/L) Final Glucose 10/29/2023 06:19:00 111 70-120 (mg /dL) Final Albumin 10/29/2023 06:19:00 4.0 3.8-5.0 (g /dL) Final AST (Aspartate aminotransferase) 10/29/2023 06:19:00 7 Below low normal 10-50 (U/L) Final Alk Phos 10/29/2023 06:19:00 70 35-130 (U/ L) Final Bilirubin, Total 10/29/2023 06:19:00 0.5 <=1 .2 (mg/dL) Final Calcium 10/29/2023 06:19:00 9.2 8.4-10.2 ( mg/dL) Final Protein 10/29/2023 06:19:00 7.4 6.0-8.3 (g /dL) Final ALT (Alanine aminotransferase) 10/29/2023 06:19:00 14 10-50 (U/L) Melvin bolden Performing Location LABORATORY [facility] [place] - [address] [facility] [address]
--- OUTSIDE RECORDS SUMMARY | 2024-03-17 14:30 | External Medical Summary ---
Author Name Unknown Address Unknown Organization K01:LABORATORY [facility] [place] [place] - [facility] [address] [facility] [place] [address] Laboratory Report Ordering Provider Test Date Status MADDY,PINO 10/29/2023 06:19:00 Final Observation Date Value Abnormality Reference (Units ) Status WBC, Total 10/29/2023 06:19:00 15.46 Above high normal 4.00-10.80 (K/uL) Final RBC 10/29/2023 06:19:00 3.28 4.50-5.25 (M/uL) Final Hemoglobin 10/29/2023 06:19:00 9.8 Below low normal 14.0-16.8 (g/dL) Final HCT 10/29/2023 06:19:00 29.1 Below low normal 40.0-48.4 (%) Final MCV 10/29/2023 06:19:00 88.7 82.0-99.5 (fL) Final MCH 10/29/2023 06:19:00 29.9 27.0-34.0 (pg) Final MCHC 10/29/2023 06:19:00 33.7 32.0-36.0 (g/dL) Final RDW 10/29/2023 06:19:00 13.9 11.5-15.5 (%) Final Platelets 10/29/2023 06:19:00 184 140-400 (K/uL) Final MPV 10/29/2023 06:19:00 9.8 6.6-11.1 (fL) Final Nucleated erythrocytes/100 leukocytes [Ratio] in Blood by Automated count 10/29/2023 06:19:00 0 <=0 (/100 WBCs) Final Performing Location LABORATORY [facility] [place] - [address] [facility] [address]
--- OUTSIDE RECORDS SUMMARY | 2024-03-17 14:30 | External Medical Summary ---
Author Name Unknown Address Unknown Organization K01:[place] [facility] [place] [address] [facility] [address] Laboratory Report Ordering Provider Test Date Status RINAFILEMONGERALD 10/28/2023 16:25:16 Final Prior to obtaining specimen for cell count, gram stain and culture of PD fluid, drain the abdomen, instill 2000 ml dianeal , allow it to dwell for 90 minutes.

Some reference ranges and other method performance specifications have not been established for this fluid. The test results must be integrated into the clinical context for interpretation. Observation Date Value Abnormality Reference (Units ) Status SYNC TOTAL NUCLEATED CELLS FLUID 10/28/2023 16:25:16 79 (cells/uL) Final Neutrophils/100 leukocytes in Body fluid by Manual count 10/28/2023 16:25:16 43 Above high normal 2-34 (%) Final Lymphocytes, Body Fluid 10/28/2023 16:25:16 14 0-50 (%) Final Monocytes/100 leukocytes in Body fluid by Manual count 10/28/2023 16:25:16 43 9-61 (%) Final SEGMENTED NEUTROPHILS (1000/UG) IN BODY FLUID ABS 10/28/2023 16:25:16 33.97 (cells/uL) Final LYMPHOCYTES (1000/UG) IN BODY FLUID ABS 10/28/2023 16:25:16 11.06 (cells/uL) Final MONOCYTES(1000/UG) IN BODY FLUID ABS 10/28/2023 16:25:16 33.97 (cells/uL) Final Performing Location [facility] - [address] [facility] [address]
--- OUTSIDE RECORDS SUMMARY | 2024-03-17 14:30 | External Medical Summary ---
Author Name Unknown Address Unknown Organization [id number]:[place]ORY [facility] [place] [address] [facility] [address] Laboratory Report Ordering Provider Test Date Status LACEY ZAVALETA 10/28/2023 13:17:00 Final Observation Date Value Abnormality Reference (Units ) Status Body temperature 10/28/2023 13:17:00 37.0 (C) Final pH of Venous blood 10/28/2023 13:17:00 7.248 Below low normal 7.320-7.430 (units) Final Carbon dioxide [Partial pressure] in Venous blood 10/28/2023 13:17:00 48.7 40.0-60.0 (mmHg) Final Oxygen [Partial pressure] in Venous blood 10/28/2023 13:17:00 25.8 25.0-50.0 (mmHg) Final Base excess, Capillary 10/28/2023 13:17:00 -6.3 Below low normal -2.0-2.0 (mmol/L) Final Hemoglobin [Mass/volume] in Blood by Oximetry 10/28/2023 13:17:00 11.3 Below low normal 14.0-16.8 (g/dL) Final Oxyhemoglobin, Venous (FO2HB) 10/28/2023 13:17:00 29.5 Below low normal 40.0-85.0 (% total Hgb) Final Carboxyhemoglobin 10/28/2023 13:17:00 0.8 <=1.5 (% total Hgb) Final Smokers: 0-9.0 % Methemoglobin 10/28/2023 13:17:00 0.8 <= 1.5 (% total Hgb) Final Deoxyhemoglobin/Hemoglo bin.total in Venous blood 10/28/2023 13:17:00 68.9 (% total Hgb) Final Oxygen content in Venous blood 10/28/2023 13:17:00 4.7 Below low normal 7.0-18.0 (%vol) F inal Bicarbonate, Venous, POC (i-STAT) 10/28/2023 13:17:00 20.5 Below low normal 23.0-31.0 (mmol/L) Final Performing Location [place]ORY [facility] [place] - [facility] [address] [facility] [address]
--- OUTSIDE RECORDS SUMMARY | 2024-03-17 14:30 | External Medical Summary ---
Author Name Unknown Address Unknown Organization K01:[place] [facility] [place] [address] [place] [address] Laboratory Report Ordering Provider Test Date Status MARI BOB 10/27/2023 15:14:04 Final Observation Date Value Abnormality Reference (Units ) Status BUN 10/27/2023 15:14:04 59 Above high normal 6-20 (mg/dL) Final Creatinine 10/27/2023 15:14:04 22.6 Above high normal 0.6-1.2 (mg/dL) Final Glomerular filtration rate/1.73 sq M.predicted [Volume Rate/Area] in Serum, Plasma or Blood by Creatinine-based formula (CKD-EPI) 10/27/2023 15:14:04 2 Below low normal >=60 (mL/min) Final eGFR is calculated based on the CKD-EPI 2020 equation SODIUM 10/27/2023 15:14:04 137 135-146 (m mol/L) Final Potassium 10/27/2023 15:14:04 3.4 Below low normal 3.5 -5.1 (mmol/L) Final Cl 10/27/2023 15:14:04 89 Below low normal 98- 107 (mmol/L) Final CO2 10/27/2023 15:14:04 20 Below low normal 22- 32 (mmol/L) Final Anion gap 10/27/2023 15:14:04 28 Above high normal 7- 15 (mmol/L) Final Glucose 10/27/2023 15:14:04 121 Above high normal 70 -120 (mg/dL) Final Calcium 10/27/2023 15:14:04 10.0 8.4-10.2 ( mg/dL) Final Albumin 10/27/2023 15:14:04 5.1 Above high normal 3. 8-5.0 (g/dL) Final Phosphate 10/27/2023 15:14:04 10.3 Above high normal 2. 5-4.8 (mg/dL) Final Performing Location LABORATORY [facility] - [address] [facility] [address]
--- OUTSIDE RECORDS SUMMARY | 2024-03-17 14:30 | External Medical Summary ---
Author Name Unknown Address Unknown Organization K01:LABORATORY [facility] - [address] [place] [address] Laboratory Report Ordering Provider Test Date Status MADDY,PINO 10/29/2023 06:19:00 Final Observation Date Value Abnormality Reference (Units ) Status Phosphate 10/29/2023 06:19:00 13.9 Above high normal 2. 5-4.8 (mg/dL) Final Performing Location [facility] [address] [facility] [address]
--- OUTSIDE RECORDS SUMMARY | 2024-03-17 14:30 | External Medical Summary | Summary of Care ---
Author Name Unknown Organization [facility] Address [address] [place] [address] Phone [phone] Care Team Providers Care Aeronautical Products Sales Engineer Name Role Phone Tomer Garner MD Primary Care Provider Reason for Visit * Reason Onset Date Comments Medication Refill 10/27/2023 Encounter Details Date Type Department Care Team (Late st Contact Info) Description 10/27/2023 Refill [facility] Nephrology [address] [place] [address] Akosua Lopez MD [address] [place] [address] Allergies No known active allergiesdocumented [...] 11/07/2022 Active cycloSPORINE Modified 25 MG Oral CapsuleIndicatio [...] on 09/27/2023 Gentamicin Sulfate 0.1 % External CreamIndications :ESRD [...] the morning. 30 Tablet 11 10/27/2023 Active Losartan Potassium 25 MG Oral Tablet (Cozaar)Indicati [...] (Oral) 1981,04/11 Pneumococcal Conjugate Vacci ne, 20-valent ([id number]) 11/17/2022 Seasonal Influenza, PF, 6 M & [...] encounter Miscellaneous Notes * Telephone Encounter - Akosua Lopez MD - 10/27/2023 4:42 PM EST Patient reporting lower BP and lightheadness in the setting of great UF via PD . Creatinine and BUNimproving with recent adjustment of prescription for his Low transport type membrane. Mild leukocytosis with no fevers, no abdominal pain. Observe. May be some hemoconcentration Hypokalemia PLAN Stop anti-HTN Increase fluid intake to 1.5-2 liters a day Dianeal 1.5% KCL 20 mEq daily sent to [facility] Monitor weight and symptoms closely Akosua Lopez MD documented in this encounter Plan of Treatment Upcoming Encounters Date Type Department Care Team (Late st Contact Info) Description 11/03/2023 1:00 PM EST Office Visit Home Dialysis [address] [place] [id number] [facility], Peritoneal Dialysis [address] [place] [address] 11/10/2023 8:00 AM EST Treatment Home Dialysis Hamzah [address] [place] [address] Nurse, Digital Message Display Crist[place] [address] [place] [address] 11/10/2023 1:00 PM EST Nurse Only Home Dialysis Hamzah Lucas [address] [phone] Nurse, Digital Message [employer] Crist[place] [address] [place] [address] [address] 12/04/2023 1:00 PM EDT Office Visit Home Dialysis Hamzah Lucas Dr [address] [place], [place] [address] [facility], Peritoneal Dialysis [address] [place] [address] 12/11/2023 8:00 AM EDT Treatment Home Dialysis Hamzah Lucas Dr [address] [place], [place] [address] Nurse, Lance [address] [employer] [address] [place], [place] [address] 12/11/2023 1:00 PM EDT Nurse Only Home Dialysis Hamzah Lucas Dr [address] [place], [place] [phone] Nurse, Lance Drive Cristal [address] [place], [place] [address] 12/26/2023 1:00 PM EDT Office Visit Home Dialysis Hamzah Lucas [address] [place], [place] [address] [facility], Peritoneal Dialysis [address] [place] [facility] [place] [address] 01/10/2024 8:00 AM EDT Treatment Home Dialysis Hamzah [address] [place], [place] [address] Nurse, Lance [employer] Cristal [address] [place] [address] 01/10/2024 1:00 PM EDT Nurse Only Home Dialysis Hamzah [address] [place], [place] [address] Nurse, Digital Message [employer] Cristal [address] [place] [address] 02/08/2024 1:00 PM EDT Office Visit Home Dialysis Hamzah Lucas Dr [address] [place], [place] [address] [facility], Peritoneal Dialysis [address] [place] [facility] [place] [address] 02/10/2024 8:00 AM EDT Treatment Home Dialysis Hamzah [address] [place] [address] Nurse, Lance Lopez Cristal [address] [place], [place] [address] 02/12/2024 1:00 PM EDT Nurse Only Home Dialysis Hamzah Lucas [address] [place], [place] [phone] Nurse, Lance Lopez Cristal [address] [place], [place] [address] 03/05/2024 1:00 PM EDT Office Visit Home Dialysis Hamzah Lucas Dr [address] [place], [place] [address] [facility], Peritoneal Dialysis [address] [place] [address] 03/11/2024 8:00 AM EDT Treatment Home Dialysis Hamzah Lucas Dr [address] [place], [place] [phone] Nurse, Lance Lopez Cristal [address] [place], [place] [address] 03/11/2024 1:00 PM EDT Nurse Only Home Dialysis Hamzah [address] [place], [place] [address] Nurse, Lance Lopez Cristal [address] [place], [place] [address] 03/19/2024 1:00 PM EDT Office Visit Home Dialysis Hamzah Lucas Dr [address] [place], [place] [address] [facility], Peritoneal Dialysis [address] [place] [address] 04/11/2024 8:00 AM EDT Treatment Home Dialysis Hamzah Lucas Dr [address] [place], [place] [address] Nurse, Lance Lopez Cristal [address] [place], [place] [address] 04/11/2024 1:00 PM EDT Nurse Only Home Dialysis Hamzah Lucas Dr [address] [place], [place] [phone] Nurse, Lance Drive Cristal [address] [place], [place] [address] 04/29/2024 1:00 PM EDT Office Visit Home Dialysis Hamzah Lucas [address] [place] [address] [facility], Peritoneal Dialysis [address] [place] [address] 05/12/2024 8:00 AM EDT Treatment Home Dialysis Hamzah Lucas Dr [address] [place], [place] [phone] Nurse, Lance Drive Cristal [address] [place], [place] 05/14/2024 1:00 PM EDT Nurse Only Home Dialysis Hamzah Lucas Dr [address] [place], [place] [phone] Nurse, Lance Drive Cristal [address] [place], [place] 06/07/2024 1:00 PM EDT Office Visit Home Dialysis Hamzah Lucas Dr [address] [place], [place] [address] [facility], Peritoneal Dialysis [address] [place] [address] 06/11/2024 8:00 AM EDT Treatment Home Dialysis Hamzah Lucas Dr [address] [place], [place] [phone] Nurse, Lance Drive Cristal [address] [place], [place] [address] 06/11/2024 1:00 PM EDT Nurse Only Home Dialysis Hamzah Lucas Dr [address] [place], [place] [phone] Nurse, Lance Drive Cristal [address] [place], [place] [address] 06/25/2024 1:00 PM EDT Office Visit Home Dialysis Hamzah Lucas Dr [address] [place], [place] [address] [facility], Peritoneal Dialysis [address] [facility] [address] 07/12/2024 8:00 AM EDT Treatment Home Dialysis Hamzah Lucas Dr [address] [place], [place] [phone] Nurse, Lance Drive [employer] [address] [place], [place] [address] 07/12/2024 1:00 PM EDT Nurse Only Home Dialysis Hamzah Lucas Dr [address] [place], [place] [phone] Nurse, Lance [employer] Cristal [address] [place], [place] 07/22/2024 1:00 PM EST Office Visit Home Dialysis Hamzha Lucas Dr [address] [place], [place] [address] [facility], Peritoneal Dialysis [address] [place], [place] [address] 08/11/2024 8:00 AM EST Treatment Home Dialysis Hamzah Lucas Dr [address] [place], [place] [phone] Nurse, Lance Drive Cristal [address] [place], [place] [address] 08/12/2024 1:00 PM EST Nurse Only Home Dialysis Hamzah [address] [place], [place] [phone] Nurse, Lance [employer] Cristal [address] [place], [place] [address] 08/20/2024 1:00 PM EST Office Visit Home Dialysis Hamzah Lucas Dr [address] [place], [place] [address] [facility], Peritoneal Dialysis [address] [place] [address] Health Maintenance Due Date Last Done Comments COVID-19 Vaccine (3 - Moderna risk series) 12/21/2020 11/23/2020, 10/18/2020 Hepatitis B (3 of 4 - Risk Dialysis Recombivax 3-dose series) 10/05/2023 05/02/2023, 04/04/2023 Depression Screening 11/18/2023 11/17/2022 Lipid Panel 05/18/2026 05/18/2021, 12/09/2009, 11/11/2004, Additional history exists Diabetes Screening 10/27/2026 [...] Advance Directives occurred with: Patient Care Teams Aeronautical Products Sales Engineer Relationship Specialty Start Date End Date Tomer Garner MD [address] [place] [address] PCP - General 09/19/02 documented as of this encounter
--- OUTSIDE RECORDS SUMMARY | 2024-03-17 14:30 | External Medical Summary ---
Author Name Unknown Address Unknown Organization K01:[place] [facility] [place] [facility] [address] [facility] [facility] [address] Laboratory Report Ordering Provider Test Date Status MARI BOB 10/27/2023 15:14:04 Final Observation Date Value Abnormality Reference (Units ) Status WBC, Total 10/27/2023 15:14:04 16.32 Above high normal 4.00-10.80 (K/uL) Final RBC 10/27/2023 15:14:04 4.19 4.50-5.25 (M/uL) Final Hemoglobin 10/27/2023 15:14:04 12.5 Below low normal 14.0-16.8 (g/dL) Final HCT 10/27/2023 15:14:04 37.1 Below low normal 40.0-48.4 (%) Final MCV 10/27/2023 15:14:04 88.5 82.0-99.5 (fL) Final MCH 10/27/2023 15:14:04 29.8 27.0-34.0 (pg) Final MCHC 10/27/2023 15:14:04 33.7 32.0-36.0 (g/dL) Final RDW 10/27/2023 15:14:04 13.4 11.5-15.5 (%) Final Platelets 10/27/2023 15:14:04 261 140-400 (K/uL) Final MPV 10/27/2023 15:14:04 10.3 6.6-11.1 (fL) Final Nucleated erythrocytes/100 leukocytes [Ratio] in Blood by Automated count 10/27/2023 15:14:04 0 <=0 (/100 WBCs) Final Performing Location [place] [facility] [place] [address] [facility] [address]
--- OUTSIDE RECORDS SUMMARY | 2024-03-17 14:30 | External Medical Summary ---
Author Name Unknown Address Unknown Organization K01:LABORATORY [facility] [place] [address] [place] [address] Laboratory Report Ordering Provider Test Date Status LACEY ZAVALETA 10/28/2023 13:01:00 Final Observation Date Value Abnormality Reference (Units ) Status Troponin T 10/28/2023 13:01:00 71 Above high normal < =22 (ng/L) Final Performing Location [facility] - [address] [place] [address]
--- OUTSIDE RECORDS SUMMARY | 2024-03-17 14:30 | External Medical Summary | Summary of Care ---
Author Name Unknown Organization [facility] Address [address] [facility] [place] [address] Phone [phone] Care Team Providers Care Casual Shoe Inspector Name Role Phone Tomer Garner MD Primary Care Provider [phone] Encounter Details Date Type Department Care Team (Late st Contact Info) Description 10/23/2023 1:30 PM EST Nurse Only Home Dialysis [address] [place] [address] Nurse, Lance Lopez Capd [address] [place] [address] Allergies No known active allergiesdocumented as of this encounter (statuses as of 10/23/2023) Medications Medication Sig Dispensed Refills Start Date [...] as of this encounter (statuses as of 10/23/2023) Active Problems Problem Noted Date Diagnosed Date [...] as of this encounter (statuses as of 10/23/2023) Resolved Problems Problem Noted Date Diagnosed Date Resolved Date Dyslipidemia, goal to be determined 08/27/2009 11/21/2013 Overview: Per Lipid Taxonomy. PURE HYPERCHOLESTEROLEM 04/25/200208/11 Overview: Per Lipid Taxonomy. 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 1 Hemoptysis 04/11/1996 08/11/1996 Overview: ICD-10 update of inactive term documented as of this encounter (statuses as of 10/23/2023) Immunizations Name Administration Dates Next Due COVID-19 mRNA, LNP-s, No Pre serve, 2-Dose Series (Moderna) 11/23/2020,10/18/2020 DTP Vaccine 1981,1981,1981 HEP B - Hepatitis B (Dialysis/Immumocomp Pt) 05/02/2023,04/04/2023 MMR - Measles/Mumps/Rubella Vaccine 05/11/1982 OPV - Polio Virus Vaccine (Oral) 1981,04/11 Pneumococcal Conjugate Vacci ne, 20-valent ([id number]) 11/17/2022 Seasonal Influenza, PF, 6 M & [...] Sign Reading Time Taken Comments Blood Pressure 139/77 10/23/2023 2:35 PM EST Pulse 79 10/23/2023 2:35 PM EST Temperature 36.5 C (97.7 F) 10/23/2023 2:35 PM ES T Respiratory Rate - - Oxygen Saturation 96% 10/23/2023 2:35 PM EST Inhaled Oxygen Concentration - - Weight 126.8 kg (279 lb 8 oz) 10/23/2023 2:35 PM EST Height - - Body Mass Index 40.1 10/17/2023 1:30 PM EST documented in this encounter Functional [...] Progress Notes * Sophia Hernandez RN - 10/23/2023 3:27 PM EST PT arrived for CCPD discussion and labs. PT not meeting kt/v. CCPD/CAPD changed per Dr. Lopez. PT vitals obtained. Pt reports no SOB, and pain or BLE edema. 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 12 midnight 10 hours CCPD 4 cycles 3000 ml fills three 6L bags green 2.5% 10 am machine will fill last fill of 2800 ml 2.5% let this dwell for 4 hours. 2Pm manual bag drain (record drain) and fill 2500 ml green 2.5% (fill entire bag) 6 pm manual bag drain (record drain) and fill 2500 ml green 2.5% (fill entire bag) 12 pm (midnight) connect to CCPD and machine will drain and record previous fill. Total volume 19,800 ml over 24 hrs Will need nightly three 6 L green bags for machine. Two manual CAPD bags 2.5% daily for two manual exchanges. documented in this encounter Plan of Treatment Upcoming Encounters Date Type Department Care Team (Late st Contact Info) Description 09/28/2023 Plan of Care Documentation Home Dialysis [address] [place] [address] 11/03/2023 1:00 PM EST Office Visit Home Dialysis Hamzah [address] [place] [address] [facility], Peritoneal Dialysis [address] [place] [address] 11/10/2023 8:00 AM EST Treatment Home Dialysis Hamzah Lucas Dr [address] [place], [place] [address] Nurse, Lance [address] [employer] [address] [place], [place] [address] 11/10/2023 1:00 PM EST Nurse Only Home Dialysis Hamzah [address] Dr [address] [place], [place] [phone] Nurse, Lance Drive [place] [place], [place] [address] 12/04/2023 1:00 PM EDT Office Visit Home Dialysis Hamzah Lucas Dr [address] [place], [place] [address] [facility], Peritoneal Dialysis [address] [facility], [place] [address] 12/11/2023 8:00 AM EDT Treatment Home Dialysis Hamzah Lucas Dr [address] [place], [place] [address] Nurse, Lance [address] [place] [address] 12/11/2023 1:00 PM EDT Nurse Only Home Dialysis Hamzah [address] [place], [place] [address] Nurse, Lance [address] [employer] [address] [place] [address] 12/26/2023 1:00 PM EDT Office Visit Home Dialysis Hamzah [address] [place], [place] [address] [facility], Peritoneal Dialysis [address] [facility] [place], [place] [address] 01/10/2024 8:00 AM EDT Treatment Home Dialysis Hamzah Lucas Dr [address] [place] [address] Nurse, Lance Lopez Cristal [address] [place], [place] 01/10/2024 1:00 PM EDT Nurse Only Home Dialysis Hamzah Lucas Dr [address] [place], [place] [phone] Nurse, Lance Drive [place] [place], [place] [address] 02/08/2024 1:00 PM EDT Office Visit Home Dialysis Hamzah Lucas Dr [address] [place], [place] [phone] [facility], Peritoneal Dialysis [address] [place] [address] 02/10/2024 8:00 AM EDT Treatment Home Dialysis Hamzah Lucas Dr [address] [place], [place] [phone] Nurse, Lance [address] Crist[address] [place], [place] [address] 02/12/2024 1:00 PM EDT Nurse Only Home Dialysis Hamzah [address] [place], [place] [phone] Nurse, Lance Lopez Cristal [address] [place], [place] [address] 03/05/2024 1:00 PM EDT Office Visit Home Dialysis Hamzah [address] [place], [place] [address] [facility], Peritoneal Dialysis [address] [place] [address] 03/11/2024 8:00 AM EDT Treatment Home Dialysis Hamzah Lucas Dr [address] [place], [place] [phone] Nurse, Lance Drive [place] [address] [place], [place] [address] 03/11/2024 1:00 PM EDT Nurse Only Home Dialysis Hamzah [address] [place], [place] [address] Nurse, [address] Cristal [address] [place], [place] [address] 03/19/2024 1:00 PM EDT Office Visit Home Dialysis Hamzah [address] [place], [place] [address] [facility], Peritoneal Dialysis [address] [place] [address] 04/11/2024 8:00 AM EDT Treatment Home Dialysis Hamzah [address] [place], [place] [address] Nurse, Lance [address] Cristal [address] [place], [place] [address] 04/11/2024 1:00 PM EDT Nurse Only Home Dialysis Hamzah [address] [place], [place] [phone] Nurse, Lance [address] Cristal [address] [place], [place] [address] 04/29/2024 1:00 PM EDT Office Visit Home Dialysis Hamzah [address] [place], [place] [address] [facility], Peritoneal Dialysis [address] [place] [facility] [place] [address] 05/12/2024 8:00 AM EDT Treatment Home Dialysis Hamzah [address] [place], [place] [address] Nurse, [address] Cristal [address] [place], [place] [address] 05/14/2024 1:00 PM EDT Nurse Only Home Dialysis Hamzah [address] [place], [place] [address] Nurse, Lance [employer] [place], [place] [address] 06/07/2024 1:00 PM EDT Office Visit Home Dialysis Hamzah [address] [place], [place] [address] [facility], Peritoneal Dialysis [address] [place] [address] 06/11/2024 8:00 AM EDT Treatment Home Dialysis Hamzah Lucas Dr [address] [place], [place] [phone] Nurse, Lance Drive Cristal [address] [place], [place] [address] 06/11/2024 1:00 PM EDT Nurse Only Home Dialysis Hamzah [address] [place], [place] [phone] Nurse, [employer] [address] [place], [place] 06/25/2024 1:00 PM EDT Office Visit Home Dialysis Hamzah [address] [place], [place] [address] [facility], Peritoneal Dialysis [address] [place] [facility] [place] [address] 07/12/2024 8:00 AM EDT Treatment Home Dialysis Hamzah [address] [place], [place] [phone] Nurse, Lance [employer] Cristal [address] [place], [place] [address] 07/12/2024 1:00 PM EDT Nurse Only Home Dialysis Hamzah [address] [place], [place] [phone] Nurse, [employer] Cristal [address] [place], [place] [address] 07/22/2024 1:00 PM EST Office Visit Home Dialysis Hamzah [address] [place], [place] [phone] [facility], Peritoneal Dialysis [address] [facility] [place] [address] 08/11/2024 8:00 AM EST Treatment Home Dialysis Hamzah [address] [place], [place] [phone] Nurse, [employer] [address] [place] [address] 08/12/2024 1:00 PM EST Nurse Only Home Dialysis Hamzah [address] [place], [place] [phone] Nurse, [employer] [address] [place], [place] [phone] 08/20/2024 1:00 PM EST Office Visit Home Dialysis Hamzah [address] [place] [address] [facility], [facility] Dialysis [address] [facility] [place] [address] Health Maintenance Due Date Last Done Comments COVID-19 Vaccine (3 - Moderna risk series) 12/21/2020 11/23/2020, 10/18/2020 Hepatitis B (3 of 4 - Risk Dialysis Recombivax 3-dose series) 10/05/2023 05/02/2023, 04/04/2023 Depression Screening 11/18/2023 11/17/2022 Lipid Panel 05/18/2026 05/18/2021, 12/0 09/2009, 11/11/2004, Additional history exists Diabetes Screening 10/19/2026 10/19/2023, 0 10/18/2023, 10/17/2023, Additional history exists DTaP,Tdap,and Td Vaccines (6 [...] Advance Directives occurred with: Patient Care Teams Casual Shoe Inspector Relationship Specialty Start Date End Date Tomer Garner MD [address] [place] [address] PCP - General 09/19/02 documented as of this encounter
--- OUTSIDE RECORDS SUMMARY | 2024-03-17 14:30 | External Medical Summary | Summary of Care ---
Author Name Unknown Organization [facility] Address [address] [facility] [place] [address] Phone [phone] Care Team Providers Care Terra Cotta Setter Name Role Phone Tomer Garner MD Primary Care Provider [phone] Encounter Details Date Type Department Care Team [...] (Oral) 1981,04/11 Pneumococcal Conjugate Vacci ne, 20-valent ([id number]) 11/17/2022 Seasonal Influenza, PF, 6 M & [...] Notes * Sophia Hernandez RN - 10/27/2023 11:53 AM EST PD nurse contacted PD patient for low trend in BP. 105/56 noted in share source on 10/27/23. PT reported that yesterday he was having symptoms of dizziness and blurred vision. PT currently removes 2500 -2800 ml of UF between CCPD and CAPD in a 24 hr period. Random check in BP by patient on 10/26/23 (not entered into share source) was 86/54. Dr. Lopez made aware by PD nurse. PT held metoprolol 100 mg, and nifedipine 30 mg for the past two days and was instructed, per Dr. Lopez to continue tohold blood pressure medication through 10/30/23. PT also instructed to use 1.5% Dianeal solution bags in CCPD and CAPD treatments through 10/27/23. PT was instructed to drink 2 L of fluid and soup as tolerated at this time of phone call at 1200. PT was also instructed [place] [facility] [place] on 10/27/23 for Potassium check and Hgb. Labs ordered stat. PT expressed agreement to the following plan andwill have parents transport to lab if pt feels unsafe to drive at this time. At this time 1200 10/27/23 pt verbally reports to PD nurse no signs of dizziness, lightheadedness, or blurred vision. PD nurse to follow up with patient and marketing strategy manager once labs result. documented in this encounter Plan of Treatment Upcoming Encounters Date Type Department Care Team (Late st Contact Info) Description 11/03/2023 1:00 PM EST Office Visit Home Dialysis [address] [place] [address] M[facility], Peritoneal Dialysis [address] [place] [address] 11/10/2023 8:00 AM EST Treatment Home Dialysis [address] [address] [place] [address] Nurse, [address] [place] [address] 11/10/2023 1:00 PM EST Nurse Only Home Dialysis [address] [place], [place] [phone] Nurse, Lance [address] [place], [place] [address] 12/04/2023 1:00 PM EDT Office Visit Home Dialysis [address] [place] [address] [facility], Peritoneal Dialysis [address] [place] [address] 12/11/2023 8:00 AM EDT Treatment Home Dialysis [address] [place], [place] [phone] Nurse, Lance [address] [place], [place] 12/11/2023 1:00 PM EDT Nurse Only Home Dialysis [address] [place], [place] [phone] Nurse, Lance [address] [place], [place] 12/26/2023 1:00 PM EDT Office Visit Home Dialysis [address] [place], [place] [address] [facility] [place], Peritoneal Dialysis [address] [place] [facility] [place] [address] 01/10/2024 8:00 AM EDT Treatment Home Dialysis [address] [place], [place] [phone] Nurse, Lance [address] [place], [place] 01/10/2024 1:00 PM EDT Nurse Only Home Dialysis [address] [place], [place] [phone] Nurse, Lance [address] [place], [place] [address] 02/08/2024 1:00 PM EDT Office Visit Home Dialysis [address] [place], [place] [address] [facility], Peritoneal Dialysis [address] [place] [address] 02/10/2024 8:00 AM EDT Treatment Home Dialysis [address] [place], [place] [phone] Nurse, Lance [address] [place], [place] [address] 02/12/2024 1:00 PM EDT Nurse Only Home Dialysis [address] [place], [place] [phone] Nurse, [employer] [address] [place], [place] 03/05/2024 1:00 PM EDT Office Visit Home Dialysis [address] [place], [place] [address] [facility], Peritoneal Dialysis [address] [place] [address] 03/11/2024 8:00 AM EDT Treatment Home Dialysis [address] [place], [place] [phone] Nurse, Lance [employer] [address] [place], [place] [address] 03/11/2024 1:00 PM EDT Nurse Only Home Dialysis [address] [place], [place] [phone] Nurse, [employer] [address] [place], [place] [address] 03/19/2024 1:00 PM EDT Office Visit Home Dialysis [address] [place], [place] [phone] Mdc, Peritoneal Dialysis [address] [place] [facility] [place] [address] 04/11/2024 8:00 AM EDT Treatment Home Dialysis [address] [place], [place] [address] Nurse, Lance [employer] [address] [place], [place] [address] 04/11/2024 1:00 PM EDT Nurse Only Home Dialysis [address] [place], [place] [phone] Nurse, Lance [employer] [address] [place], [place] [address] 04/29/2024 1:00 PM EDT Office Visit Home Dialysis [address] [place], [place] [address] [facility], Peritoneal Dialysis [address] [facility], [place] [address] 05/12/2024 8:00 AM EDT Treatment Home Dialysis [address] [place], [place] [phone] Nurse, [employer] [address] [place], [place] [address] 05/14/2024 1:00 PM EDT Nurse Only Home Dialysis [address] [place], [place] [phone] Nurse, [employer] [address] [place] [address] 06/07/2024 1:00 PM EDT Office Visit Home Dialysis [address] [place], [place] [address] [facility], Peritoneal Dialysis [address] [place] [facility] [place] [address] 06/11/2024 8:00 AM EDT Treatment Home Dialysis [address] [place], [place] [address] Nurse, Lance Jessica [address] [place] [address] 06/11/2024 1:00 PM EDT Nurse Only Home Dialysis [address] [place], [place] [address] Nurse, [address] [employer] [address] [place] [address] 06/25/2024 1:00 PM EDT Office Visit Home Dialysis [address] [place] [address] [facility], Peritoneal Dialysis [address] [place] [address] 07/12/2024 8:00 AM EDT Treatment Home Dialysis [address] [place], [place] [phone] Nurse, Lance [employer] [address] [place], [place] [address] 07/12/2024 1:00 PM EDT Nurse Only Home Dialysis [address] [place], [place] [address] Nurse, [address] [place] [address] 07/22/2024 1:00 PM EST Office Visit Home Dialysis [address] [place], [place] [address] [facility], Peritoneal Dialysis [address] [place] [address] 08/11/2024 8:00 AM EST Treatment Home Dialysis [address] [place], [place] [address] Nurse, [address] [place] [address] 08/12/2024 1:00 PM EST Nurse Only Home Dialysis [address] [place] [address] [address] Nurse, [address] [place] [address] 08/20/2024 1:00 PM EST Office Visit Home Dialysis [address] [address] [place] [address] [phone] [facility], Peritoneal Dialysis [address] [place] [address] Scheduled Orders Name Type Priority Associated Diagnoses Orde r Schedule RENAL FUNCTION PANEL Lab STAT ESRD on peritoneal dialysis (HCC) Expected: 10/27/2023, Expires: 11/25/2023 CBC Lab STAT ESRD on peritoneal dialysis (HCC) Expected: 10/27/2023, Expires: 10/27/2024 Health Maintenance Due Date Last Done Comments [...] Advance Directives occurred with: Patient Care Teams Terra Cotta Setter Relationship Specialty Start Date End Date Tomer Garner MD [address] [place] [address] PCP - General 09/19/02 documented as of this encounter
--- OUTSIDE RECORDS SUMMARY | 2024-03-17 14:31 | External Medical Summary ---
Author Name Unknown Address Unknown Organization [id number]:LABORATORY [facility] [place] - [facility][note 3] [address] [facility] [address] Laboratory Report Ordering Provider Test Date Status MARI BOB 10/19/2023 14:19:40 Final PD Fluid PET test Sample # 3 Observation Date Value Abnormality Reference (Units ) Status Creatinine, Body Fluid 10/19/2023 14:19:40 15.5 (mg/dL) Final The reference interval(s) an d other method performance specifications may not be available for this body fluid. Comparison of this result with the concentration in the blood, serum, or plasma is recommended. The test result must be integrated into the clinical context for interpretation.

Please refer to test catalog (https://www.[email or web address]/catalog/body_fluids.cfm) for additional interpretive information.

This test was developed and its performance characteristics determined by [employer]. It has not been cleared or approved by the US Food and Drug Administration. Performing Location LABORATORY [facility] [place] - [address] [facility] [place] [address]
--- OUTSIDE RECORDS SUMMARY | 2024-03-17 14:31 | External Medical Summary ---
Author Name Unknown Address Unknown Organization K01:LABORATORY [facility] [place] - [address] [facility] [address] Laboratory Report Ordering Provider Test Date Status MARI BOB 10/19/2023 12:15:30 Final PD Fluid PET test Sample # 2 Observation Date Value Abnormality Reference (Units ) Status BUN, Body Fluid 10/19/2023 12:15:30 66 (mg/ dL) Final The reference interval(s) an d other method performance specifications may not be available for this body fluid. Comparison of this result with the concentration in the blood, serum, or plasma is recommended. The test result must be integrated into the clinical context for interpretation.

Please refer to test catalog (https://www.[email or web address]/catalog/body_fluids.cfm) for additional interpretive information.

This test was developed and its performance characteristics determined by [employer]. It has not been cleared or approved by the US Food and Drug Administration. Performing Location LABORATORY [facility] - [address] [facility] [address]
--- OUTSIDE RECORDS SUMMARY | 2024-03-17 14:31 | External Medical Summary ---
Author Name Unknown Address Unknown Organization K01:LABORATORY [facility] - [address] [place] [address] Laboratory Report Ordering Provider Test Date Status MARI BOB 10/17/2023 12:42:23 Final Observation Date Value Abnormality Reference (Units ) Status Albumin 10/17/2023 12:42:23 4.6 3.8-5.0 (g /dL) Final Performing Location LABORATORY [facility] - [address] [place] [address]
--- OUTSIDE RECORDS SUMMARY | 2024-03-17 14:31 | External Medical Summary | Summary of Care ---
Author Name Unknown Organization [facility] Address [address] [facility] [place] [address] Phone [phone] Care Team Providers Care Dispatch Associate Name Role Phone Tomer Garner MD Primary Care Provider [phone] Encounter Details Date Type Department Care Team (Late st Contact Info) Description 10/20/2023 Documentation Home Dialysis [address] [place] [address] Lana Soto RN Allergies No known active allergiesdocumented as of this encounter (statuses as of 10/20/2023) Medications Medication Sig Dispensed Refills Start Date [...] as of this encounter (statuses as of 10/20/2023) Active Problems Problem Noted Date Diagnosed Date [...] as of this encounter (statuses as of 10/20/2023) Resolved Problems Problem Noted Date Diagnosed Date Resolved Date Dyslipidemia, goal to be determined 08/27/2009 11/21/2013 Overview: Per Lipid Taxonomy. PURE HYPERCHOLESTEROLEM 04/25/200208/11 Overview: Per Lipid Taxonomy. 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 1 Hemoptysis 04/11/1996 08/11/1996 Overview: ICD-10 update of inactive term documented as of this encounter (statuses as of 10/20/2023) Immunizations Name Administration Dates Next Due COVID-19 mRNA, LNP-s, No Pre serve, 2-Dose Series (Moderna) 11/23/2020,10/18/2020 DTP Vaccine 1981,1981,1981 HEP B - Hepatitis B (Dialysis/Immumocomp Pt) 05/02/2023,04/04/2023 MMR - Measles/Mumps/Rubella Vaccine 05/11/1982 OPV - Polio Virus Vaccine (Oral) 1981,04/11 Pneumococcal Conjugate Vacci ne, 20-valent ([id number]) 11/17/2022 Seasonal Influenza, PF, 6 M & [...] as of this encounter Progress Notes * BrittanyLana hart RN - 10/20/2023 10:01 AM EST PD PET calculated in [employer]. His peritoneal membrane is low average transporter. Dr. Lopez made aware via [employer] text. She was assuming that yesterday and has already made CCPD prescription change since his KT/V on 10/17 was only 1.05 and he is anuric. Results scanned into patient files in [facility]. documented in this encounter Plan of Treatment Upcoming Encounters Date Type Department Care Team (Late st Contact Info) Description 09/28/2023 Plan of Care Documentation Home Dialysis [address], [place], [place] [phone] 11/03/2023 1:00 PM EST Office Visit Home Dialysis [address] [place] [address] [address] [phone] [facility] [place] [address] [place] [id number] 11/10/2023 8:00 AM EST Treatment Home Dialysis [address], [place] [address] Nurse, [place] [address] 11/10/2023 1:00 PM EST Nurse Only Home Dialysis [address], [place] [address] Nurse, [place] [address] 12/04/2023 1:00 PM EDT Office Visit Home Dialysis [address], [place] [address] [facility] D[place] [address] [place] [address] 12/11/2023 8:00 AM EDT Treatment Home Dialysis [address] [place] [address] Nurse, [address] [employer] [address] [place], [place] [address] 12/11/2023 1:00 PM EDT Nurse Only Home Dialysis [address] [place], [place] [address] Nurse, [address] [employer] [address] [place], [place] [address] 12/26/2023 1:00 PM EDT Office Visit Home Dialysis [address] [place], [place] [address] [facility] [address] [place] [address] 01/10/2024 8:00 AM EDT Treatment Home Dialysis [address] [place], [place] [phone] Nurse, Lance [employer] [address] [place], [place] [address] 01/10/2024 1:00 PM EDT Nurse Only Home Dialysis [address] [place], [place] [phone] Nurse, [address] [employer] [address] [place], [place] [address] 02/08/2024 1:00 PM EDT Office Visit Home Dialysis [address] [place], [place] [address] [facility] [address] [place] [address] 02/10/2024 8:00 AM EDT Treatment Home Dialysis [address] [place], [place] [phone] Nurse, [address] [employer] [address] [place], [place] [address] 02/12/2024 1:00 PM EDT Nurse Only Home Dialysis [address] [place], [place] [address] Nurse, [address] [employer] [address] [place] [address] 03/05/2024 1:00 PM EDT Office Visit Home Dialysis [address] [place], [place] [address] [facility] Dialysis [address] [place] [address] 03/11/2024 8:00 AM EDT Treatment Home Dialysis [address] [place], [place] [phone] Nurse, Lance [address] [place] [address] 03/11/2024 1:00 PM EDT Nurse Only Home Dialysis [address] [place], [place] [phone] Nurse, Lance [employer] [address] [place] [address] 03/19/2024 1:00 PM EDT Office Visit Home Dialysis [address] [place] [address] [facility] [address] [place] [address] 04/11/2024 8:00 AM EDT Treatment Home Dialysis [address] [place], [place] [address] Nurse, [address] [employer] [address] [place] [address] 04/11/2024 1:00 PM EDT Nurse Only Home Dialysis [address] [place] [address] Nurse, [address] [employer] [address] [place] [address] 04/29/2024 1:00 PM EDT Office Visit Home Dialysis [address] [place], [place] [address] [facility], Peritoneal Dialysis [address] [place] [address] 05/12/2024 8:00 AM EDT Treatment Home Dialysis [address] [place], [place] [address] Nurse, [address] [employer] [address] [place], [place] [address] 05/14/2024 1:00 PM EDT Nurse Only Home Dialysis [address] [place], [place] [phone] Nurse, [address] [place], [place] [address] 06/07/2024 1:00 PM EDT Office Visit Home Dialysis [address] [place], [place] [address] [facility] [address] [place] [address] 06/11/2024 8:00 AM EDT Treatment Home Dialysis [address] [place], [place] [address] Nurse, [address] [place], [place] [address] 06/11/2024 1:00 PM EDT Nurse Only Home Dialysis [address] [place], [place] [address] Nurse, Lance [employer] [address] [place], [place] [address] 06/25/2024 1:00 PM EDT Office Visit Home Dialysis [address] [place], [place] [address] [facility] Dialysis [address] [place] [address] 07/12/2024 8:00 AM EDT Treatment Home Dialysis [address] [place], [place] [phone] Nurse, Lance Lopez [address] [place], [place] [address] 07/12/2024 1:00 PM EDT Nurse Only Home Dialysis [address] [place], [place] [address] Nurse, Lance Lopez [address] [place], [place] [address] 07/22/2024 1:00 PM EST Office Visit Home Dialysis [address] [place], [place] [phone] [facility] [place] [address] [facility] [place] [place] [address] 08/11/2024 8:00 AM EST Treatment Home Dialysis [address] [place], [place] [address] Nurse, Lance Lopez [address] [place], [place] [address] 08/12/2024 1:00 PM EST Nurse Only Home Dialysis [address] [place], [place] [address] Nurse, Lance Lopez [address] [place], [place] [address] 08/20/2024 1:00 PM EST Office Visit Home Dialysis [address] [place], [place] [address] [facility]ialysis [address] [place], [place] [id number] Health Maintenance Due Date Last Done Comments [...] Advance Directives occurred with: Patient Care Teams Dispatch Associate Relationship Specialty Start Date End Date Tomer Garner MD [address] [facility], [place] [address] PCP - General 09/19/02 documented as of this encounter
--- OUTSIDE RECORDS SUMMARY | 2024-03-17 14:31 | External Medical Summary ---
Author Name Unknown Address Unknown Organization K01:LABORATORY [facility] [place] - [address] [facility] [address] Laboratory Report Ordering Provider Test Date Status MARI BOB 10/17/2023 13:21:20 Final Observation Date Value Abnormality Reference (Units ) Status BUN, Body Fluid 10/17/2023 13:21:20 56 (mg/ dL) Final The reference interval(s) an d other method performance specifications may not be available for this body fluid. Comparison of this result with the concentration in the blood, serum, or plasma is recommended. The test result must be integrated into the clinical context for interpretation.

Please refer to test catalog (https://www.[employer].com/catalog/body_fluids.cfm) for additional interpretive information.

This test was developed and its performance characteristics determined by [employer]. It has not been cleared or approved by the [place] Food and Drug Administration. Performing Location LABORATORY [facility] [place] - [address] [facility] [address]
--- OUTSIDE RECORDS SUMMARY | 2024-03-17 14:31 | External Medical Summary ---
Author Name Unknown Address Unknown Organization K01:LABORATORY [facility] - [address] [place] [address] Laboratory Report Ordering Provider Test Date Status MARI BOB 10/18/2023 11:47:24 Final Observation Date Value Abnormality Reference (Units ) Status BUN 10/18/2023 11:47:24 90 Above high normal 6-20 (mg/dL) Final Creatinine 10/18/2023 11:47:24 29.2 Above high normal 0.6-1.2 (mg/dL) Final Glomerular filtration rate/1.73 sq M.predicted [Volume Rate/Area] in Serum, Plasma or Blood by Creatinine-based formula (CKD-EPI) 10/18/2023 11:47:24 2 Below low normal >=60 (mL/min) Final eGFR is calculated based on the CKD-EPI 2020 equation SODIUM 10/18/2023 11:47:24 146 135-146 (m mol/L) Final Potassium 10/18/2023 11:47:24 4.3 3.5-5.1 (m mol/L) Final Cl 10/18/2023 11:47:24 95 Below low normal 98- 107 (mmol/L) Final CO2 10/18/2023 11:47:24 18 Below low normal 22- 32 (mmol/L) Final Anion gap 10/18/2023 11:47:24 33 Above high normal 7- 15 (mmol/L) Final Glucose 10/18/2023 11:47:24 109 70-120 (mg /dL) Final Calcium 10/18/2023 11:47:24 8.7 8.4-10.2 ( mg/dL) Final Albumin 10/18/2023 11:47:24 4.7 3.8-5.0 (g /dL) Final Phosphate 10/18/2023 11:47:24 18.3 Above high normal 2. 5-4.8 (mg/dL) Final Performing Location LABORATORY [facility] - [address] [place] [address]
--- OUTSIDE RECORDS SUMMARY | 2024-03-17 14:31 | External Medical Summary | Summary of Care ---
Author Name Unknown Organization [facility] Address [address] [facility] [place] [address] Phone [phone] Care Team Providers Care Managed Services Sales Consultant Name Role Phone Tomer Garner MD Primary Care Provider [phone] Encounter Details Date Type Department Care Team (Late st Contact Info) Description 10/20/2023 Documentation Home Dialysis [address] [...] (Oral) 1981,04/11 Pneumococcal Conjugate Vacci ne, 20-valent ([id number]) 11/17/2022 Seasonal Influenza, PF, 6 M & [...] Sign Reading Time Taken Comments Blood Pressure - - Pulse - - Temperature - - Respiratory Rate - - Oxygen Saturation - - Inhaled Oxygen Concentration - - Weight 125.2 kg (276 lb 1.6 oz) 10/17/2023 1:30 PM EST Height 177.8 cm (5' 10") 10/17/2023 1:30 PM EST Body Mass Index 39.62 10/17/2023 1:30 PM EST documented in this [...] Home Dialysis [address], [place], [place] [phone] 11/03/2023 1:00 PM EST Office Visit Home Dialysis [address] [place] [address] [phone] [facility], Peritoneal Dialysis [address] [facility] [place], [place] [address] 11/10/2023 8:00 AM EST Treatment Home Dialysis [address] [place], [place] [address] Nurse, Lance [address] [employer] [address] [place] [address] 11/10/2023 1:00 PM EST Nurse Only Home Dialysis [address] [place], [place] [address] Nurse, Lance [address] [employer] [address] [place], [place] [address] 12/04/2023 1:00 PM EDT Office Visit Home Dialysis Hamzah [address] [place] [address] [facility], Peritoneal Dialysis [address] [facility] [place] [address] 12/11/2023 8:00 AM EDT Treatment Home Dialysis Hamzah [address] [place] [address] Nurse, Lance [address] [facility] [address] [place] [address] 12/11/2023 1:00 PM EDT Nurse Only Home Dialysis [address] [place], [place] [phone] Nurse, Lance [address] [employer] [address] [place], [place] [address] 12/26/2023 1:00 PM EDT Office Visit Home Dialysis Hamzah [address] [place], [place] [address] [facility], Peritoneal Dialysis [address] [place] [address] 01/10/2024 8:00 AM EDT Treatment Home Dialysis Hamzah [address] [place], [place] [phone] Nurse, Lance [address] [employer] [address] [place], [place] 01/10/2024 1:00 PM EDT Nurse Only Home Dialysis Hamzah [address] [place], [place] [phone] Nurse, Lance [address] [employer] [address] [place], [place] [address] 02/08/2024 1:00 PM EDT Office Visit Home Dialysis Hamzah [address] [place], [place] [address] [facility], Peritoneal Dialysis [address] [place] [address] 02/10/2024 8:00 AM EDT Treatment Home Dialysis Hamzah [address] [place], [place] [phone] Nurse, Lance [address] [facility] [address] [place] [address] 02/12/2024 1:00 PM EDT Nurse Only Home Dialysis Hamzah [address] [place], [place] [phone] Nurse, Lance [address] [employer] [address] [place], [place] 03/05/2024 1:00 PM EDT Office Visit Home Dialysis Hamzah [address] [place], [place] [phone] [facility], Peritoneal Dialysis [address] [place] [place] [address] 03/11/2024 8:00 AM EDT Treatment Home Dialysis Hamzah [address] [place], [place] [phone] Nurse, Lance [address] [place], [place] 03/11/2024 1:00 PM EDT Nurse Only Home Dialysis Hamzah [address] [place], [place] [phone] Nurse, Lance [address] [employer] [address] [place], [place] 03/19/2024 1:00 PM EDT Office Visit Home Dialysis Hamzah [address] [place], [place] [phone] [facility], Peritoneal Dialysis [address] [facility], [place] 04/11/2024 8:00 AM EDT Treatment Home Dialysis Hamzah [address] [place], [place] [phone] Nurse, Lance [employer] [address] [place], [place] [address] 04/11/2024 1:00 PM EDT Nurse Only Home Dialysis Ham[address] [place], [place] [phone] Nurse, [employer] [facility] [address] [place], [place] 04/29/2024 1:00 PM EDT Office Visit Home Dialysis Hamzah [address] [place], [place] [phone] [facility], Peritoneal Dialysis [address] [place] [place] [address] 05/12/2024 8:00 AM EDT Treatment Home Dialysis Hamzah [address] [place], [place] [address] Nurse, Lance [employer] [address] [place], [place] [address] 05/14/2024 1:00 PM EDT Nurse Only Home Dialysis Ham[address] [place], [place] [phone] Nurse, Lancebaltazar Lopez [facility] [address] [place], [place] 06/07/2024 1:00 PM EDT Office Visit Home Dialysis Hamzah [address] [place], [place] [address] [facility], Peritoneal Dialysis [address] [place] [address] 06/11/2024 8:00 AM EDT Treatment Home Dialysis [address] [place], [place] [phone] Nurse, Lance [employer] [address] [place], [place] [address] 06/11/2024 1:00 PM EDT Nurse Only Home Dialysis [facility] [place], [place] [phone] Nurse, Lance [employer] [address] [place], [place] [address] 06/25/2024 1:00 PM EDT Office Visit Home Dialysis Hamzah [address] [place], [place] [address] [facility], Peritoneal Dialysis [address] [place] [address] 07/12/2024 8:00 AM EDT Treatment Home Dialysis Hamzah [address] [phone] Nurse, Lance Lopez [employer] [address] [place], [place] [address] 07/12/2024 1:00 PM EDT Nurse Only Home Dialysis Hamzah [address] [place], [place] [phone] Nurse, Lance Lopez [facility] [address] [place], [place] [phone] 07/22/2024 1:00 PM EST Office Visit Home Dialysis Hamz[address] [place], [place] [phone] [facility], Peritoneal Dialysis [address] [place], [place] [phone] 08/11/2024 8:00 AM EST Treatment Home Dialysis Hamz[address] [place], [place] [phone] Nurse, Lance Lopez [facility] [address] [place], [place] [address] 08/12/2024 1:00 PM EST Nurse Only Home Dialysis Ham[address] [place], [place] [phone] Nurse, Lance Lopez [employer] [address] [place], [place] [address] 08/20/2024 1:00 PM EST Office Visit Home Dialysis [facility] [place], [place] [address] [facility], Peritoneal Dialysis [address] [place], [place] [address] Health Maintenance Due Date Last Done Comments [...] Advance Directives occurred with: Patient Care Teams Managed Services Sales Consultant Relationship Specialty Start Date End Date Tomer Garner MD [address] [place] [address] PCP - General 09/19/02 documented as of this encounter
--- OUTSIDE RECORDS SUMMARY | 2024-03-17 14:31 | External Medical Summary | Summary of Care ---
Author Name Unknown Organization [facility] Address [address] [facility] [place] [address] Phone [phone] Care Team Providers Care Rn Circulating Name Role Phone Tomer Garner MD Primary Care Provider [phone] Encounter Details Date Type Department Care Team (Late st Contact Info) Description 10/19/2023 9:30 AM EST Nurse Only Home Dialysis [address] [place] [address] Nurse, Lance Lopez [facility] [place] [address] Arrived Allergies No known active allergiesdocumented as of this encounter (statuses as of 10/19/2023) Medications Medication Sig Dispensed Refills Start Date [...] as of this encounter (statuses as of 10/19/2023) Active Problems Problem Noted Date Diagnosed Date [...] as of this encounter (statuses as of 10/19/2023) Resolved Problems Problem Noted Date Diagnosed Date Resolved Date Dyslipidemia, goal to be determined 08/27/2009 11/21/2013 Overview: Per Lipid Taxonomy. PURE HYPERCHOLESTEROLEM 04/25/200208/11 Overview: Per Lipid Taxonomy. 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 1 Hemoptysis 04/11/1996 08/11/1996 Overview: ICD-10 update of inactive term documented as of this encounter (statuses as of 10/19/2023) Immunizations Name Administration Dates Next Due COVID-19 mRNA, LNP-s, No Pre serve, 2-Dose Series (Moderna) 11/23/2020,10/18/2020 DTP Vaccine 1981,1981,1981 HEP B - Hepatitis B (Dialysis/Immumocomp Pt) 05/02/2023,04/04/2023 MMR - Measles/Mumps/Rubella Vaccine 05/11/1982 OPV - Polio Virus Vaccine (Oral) 1981,04/11 Pneumococcal Conjugate Vacci ne, 20-valent ([id number]) 11/17/2022 Seasonal Influenza, PF, 6 M & [...] Sign Reading Time Taken Comments Blood Pressure 134/71 10/19/2023 2:00 PM EST Pulse 81 10/19/2023 2:00 PM EST Temperature 36.5 C (97.7 F) 10/19/2023 2:00 PM ES T Respiratory Rate 18 10/19/2023 2:00 PM EST Oxygen Saturation - - Inhaled Oxygen [...] Progress Notes * Sophia Hernandez RN - 10/19/2023 2:44 PM EST Peritoneal Dialysis PT arrived for PET( peritoneal equilibrium test). PT identified and vitals obtained and stable. Test performed per protocol. PT filled with 2000 ml of 2.5% Dianeal fluid. Samples removed at 0, 2 ,4 hours. Ordered labs obtained. PT drained at 1500. 2400 ml drained of clear yellowfluid , 400 UF. PT educated on avoiding phosphorus high food due to elevated phosphorus levels. PT expressed understanding to take ordered medications for phosphorus control. PT RFP to be repeated on 10/23/23 due to elevated BUN, phosphorus, and Creatine on CCPD. PT CCPD adjusted per Dr. Lopez. PT CCPD program adjusted in Share source PT reported mild nausea at this visit. No SOB, chest pain,no BLE edema. Dr. Lopez made aware of pt test completed. PT expressed understanding to call tax commissioner nephrology or go to ED with any SOB, chest pain, or sudden edema. documented in this encounter Plan of Treatment Upcoming Encounters Date Type Department Care Team (Late st Contact Info) Description 09/28/2023 Plan of Care Documentation Home Dialysis [address] [place] [address] 11/03/2023 1:00 PM EST Office Visit Home Dialysis Clau [address] [place] [address] [facility], Peritoneal Dialysis [address] [place] [address] 11/10/2023 8:00 AM EST Treatment Home Dialysis Clau [address] [place], [place] [address] Nurse, Lance Lopez [facility] [address] [place], [place] [address] 11/10/2023 1:00 PM EST Nurse Only Home Dialysis Clau [address] [place], [place] [address] Nurse, Lance [address] [facility] [address] [place], [place] [address] 12/04/2023 1:00 PM EDT Office Visit Home Dialysis Clau [address] [place], [place] [address] [facility], Peritoneal Dialysis [address] [place] [address] 12/11/2023 8:00 AM EDT Treatment Home Dialysis Clau [address] [place], [place] [address] Nurse, Lance Lopez [facility] [place], [place] [address] 12/11/2023 1:00 PM EDT Nurse Only Home Dialysis [address] [place], [place] [address] Nurse, Lance Lopez [facility] [address] [place], [place] [address] 12/26/2023 1:00 PM EDT Office Visit Home Dialysis Clau [address] [place], [place] [address] [facility], Peritoneal Dialysis [address] [place] [address] 01/10/2024 8:00 AM EDT Treatment Home Dialysis Clau [address] [place], [place] [address] Nurse, Lance Lopez [facility] [address] [place], [place] 01/10/2024 1:00 PM EDT Nurse Only Home Dialysis Clau [address] [place], [place] [phone] Nurse, Lance [address] [facility] [address] [place], [place] [address] 02/08/2024 1:00 PM EDT Office Visit Home Dialysis Clau [address] [place], [place] [phone] [facility], Peritoneal Dialysis [address] [place] [address] 02/10/2024 8:00 AM EDT Treatment Home Dialysis Clau [address] [place], [place] [phone] Nurse, Lance [address] [place], [place] 02/12/2024 1:00 PM EDT Nurse Only Home Dialysis Clau [address] [place], [place] [phone] Nurse, Lance [address] [facility] [address] [place], [place] 03/05/2024 1:00 PM EDT Office Visit Home Dialysis Clau [address] [place], [place] [address] [facility], Peritoneal Dialysis [address] [facility] [address] 03/11/2024 8:00 AM EDT Treatment Home Dialysis Clau [address] [place], [place] [phone] Nurse, Lance [address] [facility] [place], [place] [address] 03/11/2024 1:00 PM EDT Nurse Only Home Dialysis Clau [address] [place], [place] [phone] Nurse, Lance [address] [employer] [address] [place], [place] [address] 03/19/2024 1:00 PM EDT Office Visit Home Dialysis Clau [address] [place], [place] [address] [facility], Peritoneal Dialysis [address] [place] [address] 04/11/2024 8:00 AM EDT Treatment Home Dialysis Clau [address] [place], [place] [address] Nurse, Lance [employer] [address] [place] [address] 04/11/2024 1:00 PM EDT Nurse Only Home Dialysis Clau [address] [place], [place] [address] Nurse, [employer] [address] [place], [place] [address] 04/29/2024 1:00 PM EDT Office Visit Home Dialysis Clau [address] [place] [address] [facility], Peritoneal Dialysis [address] [place] [address] 05/12/2024 8:00 AM EDT Treatment Home Dialysis Clau [address] [place], [place] [phone] Nurse, Lance [employer] [address] [place], [place] [address] 05/14/2024 1:00 PM EDT Nurse Only Home Dialysis [address]au [address] [place], [place] [address] Nurse, Lance [employer] [address] [place], [place] [address] 06/07/2024 1:00 PM EDT Office Visit Home Dialysis [address]au [address] [place] [address] [facility], Peritoneal Dialysis [address] [facility] [address] 06/11/2024 8:00 AM EDT Treatment Home Dialysis [address]au [address] [place], [place] [address] Nurse, Lance [employer] [address] [place], [place] [address] 06/11/2024 1:00 PM EDT Nurse Only Home Dialysis Clau [address] [place], [place] [address] Nurse, Lance [employer] [address] [place], [place] [address] 06/25/2024 1:00 PM EDT Office Visit Home Dialysis Clau [address] [place], [place] [address] [facility], Peritoneal Dialysis [address] [facility], [place] [address] 07/12/2024 8:00 AM EDT Treatment Home Dialysis Clau [address] [place], [place] [address] Nurse, [employer] [address] [place], [place] [address] 07/12/2024 1:00 PM EDT Nurse Only Home Dialysis [address]au [address] [place], [place] [address] Nurse, [employer] [address] [place] [address] 07/22/2024 1:00 PM EST Office Visit Home Dialysis Clau [address] [place], [place] [address] [facility], Peritoneal Dialysis [address] [facility], [place] [address] 08/11/2024 8:00 AM EST Treatment Home Dialysis Clau [address] [place] [address] [phone] Nurse, Lance [address] [place], [place] [phone] 08/12/2024 1:00 PM EST Nurse Only Home Dialysis Clau Lucas [address] [place] [phone] Nurse, Lance [address] [place] [address] [phone] 08/20/2024 1:00 PM EST Office Visit Home Dialysis Clau Lucas Dr [place], [place] [phone] [facility], Peritoneal Dialysis [address] [facility] [place] [address] Scheduled Orders Name Type Priority Associated Diagnoses Orde r Schedule UREA NITROGEN, PERITONEAL DIALYSATE Lab Routine ESRD on peritoneal dialysis ([facility]) Expected: 10/19/2023, Expires: 11/17/2023 CREATININE, BODY FLUID Lab Routine ESRD on peritoneal dialysis ([facility]) Expected: 10/19/2023, Expires: 11/17/2023 GLUCOSE, BODY FLUID Lab Routine ESRD on peritoneal dialysis ([facility]) Expected: 10/19/2023, Expires: 11/17/2023 UREA NITROGEN, PERITONEAL DIALYSATE Lab Routine ESRD on peritoneal dialysis ([facility]) Expected: 10/19/2023, Expires: 10/19/2024 CREATININE, BODY FLUID Lab Routine ESRD on peritoneal dialysis ([facility]) Expected: 10/19/2023, Expires: 10/19/2024 GLUCOSE, BODY FLUID Lab Routine ESRD on peritoneal dialysis ([facility]) Expected: 10/19/2023, Expires: 10/19/2024 CREATININE Lab Routine ESRD on peritoneal dialysis ([facility]) Expected: 10/19/2023, Expires: 10/19/2024 BUN Lab Routine ESRD on peritoneal dialysis ([facility]) Expected: 10/19/2023, Expires: 11/17/2023 GLUCOSE Lab Routine ESRD on peritoneal dialysis ([facility]) Expected: 10/19/2023, Expires: 10/19/2024 RENAL FUNCTION PANEL Lab Routine ESRD on peritoneal dialysis ([facility]) Expected: 10/23/2023, Expires: 11/17/2023 Health Maintenance Due Date Last Done Comments COVID-19 Vaccine (3 - Moderna risk series) 12/21/2020 11/23/2020, 10/18/2020 Hepatitis B (3 of 4 - Risk Dialysis Recombivax 3-dose series) 10/05/2023 05/02/2023, 04/04/2023 Depression Screening 11/18/2023 11/17/2022 Lipid Panel 05/18/2026 05/18/2021, 12/09/2009, 11/11/2004, Additional history exists Diabetes Screening 10/18/2026 10/18/2023, 0 10/17/2023, 05/22/2023, Additional history exists DTaP,Tdap,and Td Vaccines (6 [...] Procedure Name Priority Date/Time Associated Diagnosis Comments GLUCOSE, BODY FLUID Routine 10/19/2023 1 0:03 AM EST ESRD on peritoneal dialysis (HCC) CREATININE, BODY FLUID Routine 10/19/2023 10:03 AM EST ESRD on peritoneal dialysis (HCC) UREA NITROGEN, PERITONEAL DIALYSATE Routine 10/19/2023 10:03 AM EST ESRD on peritoneal dialysis (HCC) documented in this encounter Results * GLUCOSE, BODY FLUID (10/19/2023 10:03 AM EST) Glucose, Body Fluid 2,084 mg/dL 10/19 2:06 PM EST [facility] Comment: Diluted and report corrected at provider's request The reference interval(s) and other method performance specifications may not be available for this body fluid. Comparison of this result with the concentration in the blood, serum, or plasma is recommended. The test result must be integrated into the clinical context for interpretation. Please refer to test catalog (https://www.Desire2Learn/catalog/body_fluids.cfm) for additional interpretive information. This test was developed and its performance characteristics determined by [employer]. It has not been cleared or approved by the [place] Food and Drug Administration. Changed result: Previously reported as >1,500 mg/dL on 10/19/2023 at 1248 EST. Body Fluid Specimen from wound / Unknown Non-blood Collection / Unknown 10/19/2023 10:03 AM EST 10/19/2023 12:06 PM EST Akosua Lopez MD LAB FLUID AND S TOOL ORDERABLES [facility] [address] [place] [address] * CREATININE, BODY FLUID (10/19/2023 10:03 AM EST) Creatinine, Body Fluid 2.6 mg/dL 10/19/2023 12:45 PM EST [facility] Comment: The reference interval(s) and other method performance specifications may not be available for this body fluid. Comparison of this result with the concentration in the blood, serum, or plasma is recommended. The test result must be integrated into the clinical context for interpretation. Please refer to test catalog (https://www.Desire2Learn/catalog/body_fluids.cfm) for additional interpretive information. This test was developed and its performance characteristics determined by [employer]. It has not been cleared or approved by the [place] Food and Drug Administration. Body Fluid Specimen from wound / Unknown Non-blood Collection / Unknown 10/19/2023 10:03 AM EST 10/19/2023 12:06 PM EST Akosua Lopez MD LAB FLUID AND S TOOL ORDERABLES Performing Organization Address [facility] Co de Phone Number [facility] [address] [place] [address] * UREA NITROGEN, PERITONEAL DIALYSATE (10/19/2023 10:03 AM EST) Urea Nitrogen, Peritoneal Fluid 12 mg/dL 10/19/2023 12:45 PM EST [facility] Comment: The reference interval(s) and other method performance specifications may not be available for this body fluid. Comparison of this result with the concentration in the blood, serum, or plasma is recommended. The test result must be integrated into the clinical context for interpretation. Please refer to test catalog (https://www.[employer]/catalog/body_fluids.cfm) for additional interpretive information. This test was developed and its performance characteristics determined by [employer]. It has not been cleared or approved by the [place] Food and Drug Administration. Body Fluid Specimen from wound / Unknown Non-blood Collection / Unknown 10/19/2023 10:03 AM EST 10/19/2023 12:06 PM EST Akosua Lopez MD LAB FLUID AND S TOOL ORDERABLES Performing Organization Address [facility] de Phone Number LABORATORY [address] [address] documented in this encounter Visit Diagnoses Diagnosis [...] Directives occurred with: Patient Care Teams Rn Circulating Relationship Specialty Start Date End Date Tomer Garner MD [address] [place] [address] PCP - General 09/19/02 documented as of this encounter
--- OUTSIDE RECORDS SUMMARY | 2024-03-17 14:31 | External Medical Summary ---
Author Name Unknown Address Unknown Organization [id number]:[facility] [place] [address] [facility] [address] Laboratory Report Ordering Provider Test Date Status MARI BOB 10/19/2023 14:19:40 Final PD Fluid PET test Sample # 3 Observation Date Value Abnormality Reference (Units ) Status BUN, Body Fluid 10/19/2023 14:19:40 81 (mg/ dL) Final The reference interval(s) an d other method performance specifications may not be available for this body fluid. Comparison of this result with the concentration in the blood, serum, or plasma is recommended. The test result must be integrated into the clinical context for interpretation.

Please refer to test catalog (https://www.Fotolia.com/catalog/body_fluids.cfm) for additional interpretive information.

This test was developed and its performance characteristics determined by [employer]. It has not been cleared or approved by the [place] Food and Drug Administration. Performing Location [facility] [place] [address] [facility] [address]
--- OUTSIDE RECORDS SUMMARY | 2024-03-17 14:31 | External Medical Summary ---
Author Name Unknown Address Unknown Organization [id number]:[facility] [place] [address] [facility] [address] Laboratory Report Ordering Provider Test Date Status MARI BOB 10/19/2023 12:15:30 Final PD Fluid PET test Sample # 2 Observation Date Value Abnormality Reference (Units ) Status Glucose, Body Fluid 10/19/2023 12:15:30 1271 (mg/dL) Final The reference interval(s) an d other method performance specifications may not be available for this body fluid. Comparison of this result with the concentration in the blood, serum, or plasma is recommended. The test result must be integrated into the clinical context for interpretation.

Please refer to test catalog (https://www.PixelPin.com/catalog/body_fluids.cfm) for additional interpretive information.

This test was developed and its performance characteristics determined by [employer]. It has not been cleared or approved by the [place] Food and Drug Administration. Performing Location [facility] [place] [address] [facility] [address]
--- OUTSIDE RECORDS SUMMARY | 2024-03-17 14:31 | External Medical Summary ---
Author Name Unknown Address Unknown Organization [id number]:[facility] [place] [address] [facility] [address] Laboratory Report Ordering Provider Test Date Status MARI BOB 10/19/2023 14:19:40 Final PD Fluid PET test Sample # 3 Observation Date Value Abnormality Reference (Units ) Status Glucose, Body Fluid 10/19/2023 14:19:40 1000 (mg/dL) Final The reference interval(s) an d other method performance specifications may not be available for this body fluid. Comparison of this result with the concentration in the blood, serum, or plasma is recommended. The test result must be integrated into the clinical context for interpretation.

Please refer to test catalog (https://www.Pley.com/catalog/body_fluids.cfm) for additional interpretive information.

This test was developed and its performance characteristics determined by [employer]. It has not been cleared or approved by the [place] Food and Drug Administration. Performing Location [facility] [place] [address] [facility] [address]
--- OUTSIDE RECORDS SUMMARY | 2024-03-17 14:31 | External Medical Summary ---
Author Name Unknown Address Unknown Organization [id number]:LABORATORY [facility] [place] [address] [facility] [address] Laboratory Report Ordering Provider Test Date Status MARI BOB 10/19/2023 10:03:14 Final PD fluid PET test sample # 1 Observation Date Value Abnormality Reference (Units ) Status BUN, Body Fluid 10/19/2023 10:03:14 12 (mg/ dL) Final The reference interval(s) an d other method performance specifications may not be available for this body fluid. Comparison of this result with the concentration in the blood, serum, or plasma is recommended. The test result must be integrated into the clinical context for interpretation.

Please refer to test catalog ([email or web address]_[email or web address]) for additional interpretive information.

This test was developed and its performance characteristics determined by [employer]. It has not been cleared or approved by the US Food and Drug Administration. Performing Location LABORATORY [facility] [place] [address] [facility] [address]
--- OUTSIDE RECORDS SUMMARY | 2024-03-17 14:31 | External Medical Summary | Summary of Care ---
Author Name Unknown Organization [facility] Address [address] [place] [address] Phone [phone] Care Team Providers Care Production Assistant Name Role Phone Tomer Garner MD Primary Care Provider + [phone] Reason for Visit * Reason Comments Outpatient Testing Encounter Details Date Type Department Care Team ([facility] st Contact Info) Description 10/18/2023 11:50 AM EST Laboratory Laboratory, [place] [address] [place] [phone] [facility] Lab [address] [place] [address] ESRD on peritoneal dialysis (HCC) Allergies No known active allergiesdocumented as of this encounter (statuses as of 10/18/2023) Medications Medication Sig Dispensed Refills Start Date [...] as of this encounter (statuses as of 10/18/2023) Active Problems Problem Noted Date Diagnosed Date [...] as of this encounter (statuses as of 10/18/2023) Resolved Problems Problem Noted Date Diagnosed Date Resolved Date Dyslipidemia, goal to be determined 08/27/2009 11/21/2013 Overview: Per Lipid Taxonomy. PURE HYPERCHOLESTEROLEM 04/25/200208/11 Overview: Per Lipid Taxonomy. 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 1 Hemoptysis 04/11/1996 08/11/1996 Overview: ICD-10 update of inactive term documented as of this encounter (statuses as of 10/18/2023) Immunizations Name Administration Dates Next Due COVID-19 mRNA, LNP-s, No Pre serve, 2-Dose Series (Moderna) 11/23/2020,10/18/2020 DTP Vaccine 1981,1981,1981 HEP B - Hepatitis B (Dialysis/Immumocomp Pt) 05/02/2023,04/04/2023 MMR - Measles/Mumps/Rubella Vaccine 05/11/1982 OPV - Polio Virus Vaccine (Oral) 1981,04/11 Pneumococcal Conjugate Vacci ne, 20-valent ([id number]) 11/17/2022 Seasonal Influenza, PF, 6 M & [...] Documentation Home Dialysis [address], [place], [place] [id number] 10/19/2023 9:30 AM EST Nurse Only Home Dialysis [address] [place], [place] [address] Nurse, Lance [address] [place], [place] [address] 11/03/2023 1:00 PM EST Office Visit Home Dialysis [address] [place], [place] [phone] [facility] Peritoneal Dialysis [address] [facility], [place] [address] 11/10/2023 8:00 AM EST Treatment Home Dialysis [address] [place], [place] [address] Nurse, Lance [address] [employer] [address] [place] [address] 11/10/2023 1:00 PM EST Nurse Only Home Dialysis [address] [place], [place] [address] Nurse, Lance [address] [employer] [address] [place], [place] [address] 12/04/2023 1:00 PM EDT Office Visit Home Dialysis [address] [place] [address] [facility] Peritoneal Dialysis [address] [place] [address] 12/11/2023 8:00 AM EDT Treatment Home Dialysis [address] [place], [place] [address] Nurse, Lance [address] [place], [place] [address] 12/11/2023 1:00 PM EDT Nurse Only Home Dialysis [address] [place], [place] [phone] Nurse, Lance [address] Cristal [address] [place] [address] 12/26/2023 1:00 PM EDT Office Visit Home Dialysis [address] [place] [address] [facility], Peritoneal Dialysis [address] [place] [address] 01/10/2024 8:00 AM EDT Treatment Home Dialysis [address] [place], [place] [phone] Nurse, Lance [employer] Cristal [address] [place], [place] 01/10/2024 1:00 PM EDT Nurse Only Home Dialysis [address] [place], [place] [phone] Nurse, Lancebaltazar Bee [address] [place], [place] [address] 02/08/2024 1:00 PM EDT Office Visit Home Dialysis [address] [place], [place] [phone] [facility], Peritoneal Dialysis [address] [place] [facility] [address] 02/10/2024 8:00 AM EDT Treatment Home Dialysis [address] [place], [place] [phone] Nurse, Lance [employer] Cristal [address] [place], [place] [address] 02/12/2024 1:00 PM EDT Nurse Only Home Dialysis [address] [place], [place] [phone] Nurse, Lance Drive [employer] [address] [place], [place] [address] 03/05/2024 1:00 PM EDT Office Visit Home Dialysis [address]au [address] [place], [place] [address] [facility], Peritoneal Dialysis [address] [place] [address] 03/11/2024 8:00 AM EDT Treatment Home Dialysis [address]au [address] [place], [place] [phone] Nurse, Lance [address] [place], [place] 03/11/2024 1:00 PM EDT Nurse Only Home Dialysis [address]au [address] [place], [place] [phone] Nurse, Lance Drive [address] [place], [place] [address] 03/19/2024 1:00 PM EDT Office Visit Home Dialysis [address]au [address] [place] [address] [facility], Peritoneal Dialysis [address] [place] [address] 04/11/2024 8:00 AM EDT Treatment Home Dialysis Clau [address] [place], [place] [phone] Nurse, Lance [address] [employer] [address] [place] [address] 04/11/2024 1:00 PM EDT Nurse Only Home Dialysis [address] [place], [place] [phone] Nurse, Lance Drive [employer] [address] [place] [address] 04/29/2024 1:00 PM EDT Office Visit Home Dialysis [address]au [address] [place], [place] [address] [facility], Peritoneal Dialysis [address] [place] [address] 05/12/2024 8:00 AM EDT Treatment Home Dialysis [address]au [address] [place], [place] [address] Nurse, Lance [employer] [address] [place], [place] [address] 05/14/2024 1:00 PM EDT Nurse Only Home Dialysis [address] [place], [place] [phone] Nurse, [employer] Cristal [address] [place], [place] [address] 06/07/2024 1:00 PM EDT Office Visit Home Dialysis [address]au [address] [place], [place] [address] [facility], Peritoneal Dialysis [address] [place] [address] 06/11/2024 8:00 AM EDT Treatment Home Dialysis Clau [address] [place], [place] [phone] Nurse, [employer] [address] [place] [address] 06/11/2024 1:00 PM EDT Nurse Only Home Dialysis [address] [place], [place] [address] Nurse, Lance [employer] [address] [place] [address] 06/25/2024 1:00 PM EDT Office Visit Home Dialysis [address]au [address] [place], [place] [address] [facility], Peritoneal Dialysis [address] [place] [address] 07/12/2024 8:00 AM EDT Treatment Home Dialysis [address] [place], [place] [address] Nurse, Lance [address] [employer] [address] [place], [place] [address] 07/12/2024 1:00 PM EDT Nurse Only Home Dialysis [address]au [address] [place], [place] [address] Nurse, Lance [address] [employer] [address] [place], [place] [address] 07/22/2024 1:00 PM EST Office Visit Home Dialysis Clau [address] [place] [phone] [facility] Peritoneal Dialysis [address] [facility] [place] [id number] 08/11/2024 8:00 AM EST Treatment Home Dialysis [address] [place], [place] [address] Nurse, Lance [address] [employer] [address] [place], [place] [address] 08/12/2024 1:00 PM EST Nurse Only Home Dialysis Clau [address] [place], [place] [phone] Nurse, Lance Drive [employer] [address] [place], [place] [address] 08/20/2024 1:00 PM EST Office Visit Home Dialysis [address]au [address] [place], [place] [address] [facility] Peritoneal Dialysis [address] [place] [address] Pending Results Name Type Priority Associated Diagnoses Date /Time RENAL FUNCTION PANEL Lab STAT ESRD on peritoneal dialysis (HCC) 10/18/2023 11:47 AM EST Health Maintenance Due Date Last Done Comments COVID-19 Vaccine (3 - Moderna risk series) 12/21/2020 11/23/2020, 10/18/2020 Hepatitis B (3 of 4 - Risk Dialysis Recombivax 3-dose series) 10/05/2023 05/02/2023, 04/04/2023 Depression Screening 11/18/2023 11/17/2022 Lipid Panel 05/18/2026 05/18/2021, 12/0 09/2009, 11/11/2004, Additional history exists Diabetes Screening 10/17/2026 10/17/2023, 0 05/22/2023, 03/30/2023, Additional history exists DTaP,Tdap,and Td Vaccines (6 [...] Advance Directives occurred with: Patient Care Teams Production Assistant Relationship Specialty Start Date End Date Tomer Garner MD [address] [facility] [place] [address] PCP - General 09/19/02 documented as of this encounter
--- OUTSIDE RECORDS SUMMARY | 2024-03-17 14:31 | External Medical Summary ---
Author Name Unknown Address Unknown Organization K01:LABORATORY [facility] [place] - [address] [place] [address] Laboratory Report Ordering Provider Test Date Status MARI BOB 10/23/2023 14:49:05 Final Observation Date Value Abnormality Reference (Units ) Status BUN 10/23/2023 14:49:05 68 Above high normal 6-20 (mg/dL) Final Creatinine 10/23/2023 14:49:05 26.4 Above high normal 0.6-1.2 (mg/dL) Final Glomerular filtration rate/1.73 sq M.predicted [Volume Rate/Area] in Serum, Plasma or Blood by Creatinine-based formula (CKD-EPI) 10/23/2023 14:49:05 2 Below low normal >=60 (mL/min) Final eGFR is calculated based on the CKD-EPI 2020 equation SODIUM 10/23/2023 14:49:05 142 135-146 (m mol/L) Final Potassium 10/23/2023 14:49:05 3.7 3.5-5.1 (m mol/L) Final Cl 10/23/2023 14:49:05 96 Below low normal 98- 107 (mmol/L) Final CO2 10/23/2023 14:49:05 19 Below low normal 22- 32 (mmol/L) Final Anion gap 10/23/2023 14:49:05 27 Above high normal 7- 15 (mmol/L) Final Glucose 10/23/2023 14:49:05 101 70-120 (mg /dL) Final Calcium 10/23/2023 14:49:05 9.3 8.4-10.2 ( mg/dL) Final Albumin 10/23/2023 14:49:05 4.6 3.8-5.0 (g /dL) Final Phosphate 10/23/2023 14:49:05 12.1 Above high normal 2. 5-4.8 (mg/dL) Final Performing Location LABORATORY C - [address] [place] [address]
--- OUTSIDE RECORDS SUMMARY | 2024-03-17 14:31 | External Medical Summary | Summary of Care ---
Author Name Unknown Organization [facility] Address [address] [place] [address] Phone [phone] Care Team Providers Care Chief Sustainability Officer Name Role Phone Tomer Garner MD Primary Care Provider + [phone] Reason for Visit * Reason Comments Outpatient Testing Encounter Details Date Type Department Care Team ([facility] st Contact Info) Description 10/17/2023 12:30 PM EST Laboratory Laboratory, [place] [address] [place] [address] [facility] Lab [address] [place] [address] Pre-transplant evaluation for ESRD (end stage renal disease); ESRD on peritoneal dialysis (HCC); 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 chronic kidney disease, not on chronic dialysis (HCC) Allergies No known active allergiesdocumented as of this encounter (statuses as of 10/17/2023) Medications Medication Sig Dispensed Refills Start Date [...] as of this encounter (statuses as of 10/17/2023) Active Problems Problem Noted Date Diagnosed Date [...] as of this encounter (statuses as of 10/17/2023) Resolved Problems Problem Noted Date Diagnosed Date Resolved Date Dyslipidemia, goal to be determined 08/27/2009 11/21/2013 Overview: Per Lipid Taxonomy. PURE HYPERCHOLESTEROLEM 04/25/200208/11 Overview: Per Lipid Taxonomy. 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 1 Hemoptysis 04/11/1996 08/11/1996 Overview: ICD-10 update of inactive term documented as of this encounter (statuses as of 10/17/2023) Immunizations Name Administration Dates Next Due COVID-19 mRNA, LNP-s, No Pre serve, 2-Dose Series (Moderna) 11/23/2020,10/18/2020 DTP Vaccine 1981,1981,1981 HEP B - Hepatitis B (Dialysis/Immumocomp Pt) 05/02/2023,04/04/2023 MMR - Measles/Mumps/Rubella Vaccine 05/11/1982 OPV - Polio Virus Vaccine (Oral) 1981,04/11 Pneumococcal Conjugate Vacci ne, 20-valent ([id number]) 11/17/2022 Seasonal Influenza, PF, 6 M & [...] Home Dialysis [address], [place], [place] [phone] 11/03/2023 1:00 PM EST Office Visit Home Dialysis [address] [place] [address] [phone] [facility] [address] [place], [place] [address] 11/10/2023 8:00 AM EST Treatment Home Dialysis [address] [place] [address] Nurse, [employer] [address] [place] [address] 11/10/2023 1:00 PM EST Nurse Only Home Dialysis [address], [place], [place] [address] Nurse, Lance Jessica Bee [address] [place] [address] 12/04/2023 1:00 PM EDT Office Visit Home Dialysis [address], [place] [address] [facility] [place] Dialysis [address] [place], [place] [address] 12/11/2023 8:00 AM EDT Treatment Home Dialysis [address], [place] [address] Nurse, [address] [employer] [address] [place] [address] 12/11/2023 1:00 PM EDT Nurse Only Home Dialysis [address] [place] [address] Nurse, [address] [place] [address] 12/26/2023 1:00 PM EDT Office Visit Home Dialysis [address] [place] [address] [facility] [place] Dialysis [address] [place] [address] 01/10/2024 8:00 AM EDT Treatment Home Dialysis [address] [place], [place] [phone] Nurse, Lance [address] [place] [address] 01/10/2024 1:00 PM EDT Nurse Only Home Dialysis [address] [place], [place] [address] Nurse, Lance [address] [employer] [address] [place] [address] 02/08/2024 1:00 PM EDT Office Visit Home Dialysis [address] [place] [address] [facility] Dialysis [address] [facility] [place] [address] 02/10/2024 8:00 AM EDT Treatment Home Dialysis [address] [place] [address] Nurse, [address] [employer] [address] [place] [address] 02/12/2024 1:00 PM EDT Nurse Only Home Dialysis [address] [place] [address] Nurse, [address] [employer] [address] [place] [address] 03/05/2024 1:00 PM EDT Office Visit Home Dialysis [address] [place], [place] [address] [facility], Peritoneal Dialysis [address] [place] [address] 03/11/2024 8:00 AM EDT Treatment Home Dialysis [address] [place], [place] [address] Nurse, [employer] [address] [place], [place] [address] 03/11/2024 1:00 PM EDT Nurse Only Home Dialysis [address] [place], [place] [phone] Nurse, Lance [address] [place], [place] [address] 03/19/2024 1:00 PM EDT Office Visit Home Dialysis [address] [place], [place] [address] [facility] [place] Dialysis [address] [facility] [place] [address] 04/11/2024 8:00 AM EDT Treatment Home Dialysis [address] [place], [place] [phone] Nurse, Lance [address] [place], [place] [address] 04/11/2024 1:00 PM EDT Nurse Only Home Dialysis [address] [place], [place] [address] Nurse, Lance [employer] [address]al [address] [place] [address] 04/29/2024 1:00 PM EDT Office Visit Home Dialysis [address] [place], [place] [address] [facility], Peritoneal Dialysis [address] [place] [address] 05/12/2024 8:00 AM EDT Treatment Home Dialysis [address] [place], [place] [phone] Nurse, Lance Lopez [address] [place], [place] [address] 05/14/2024 1:00 PM EDT Nurse Only Home Dialysis [address] [place], [place] [phone] Nurse, Lance [address] [place], [place] 06/07/2024 1:00 PM EDT Office Visit Home Dialysis [address] [place], [place] [address] [facility] Dialysis [address] [place] [address] 06/11/2024 8:00 AM EDT Treatment Home Dialysis [address] [place], [place] [phone] Nurse, Lance Lopez [address] [place], [place] [address] 06/11/2024 1:00 PM EDT Nurse Only Home Dialysis [address] [place], [place] [address] Nurse, Lance Jessica Bee [address] [place], [place] [address] 06/25/2024 1:00 PM EDT Office Visit Home Dialysis [address] [place], [place] [address] [facility]ialysis [address] [place] [address] 07/12/2024 8:00 AM EDT Treatment Home Dialysis [address] [place], [place] [address] Nurse, Lance [employer] [address]al [address] [place], [place] [address] 07/12/2024 1:00 PM EDT Nurse Only Home Dialysis [address] [place], [place] [address] Nurse, [employer] [address] [place] [address] 07/22/2024 1:00 PM EST Office Visit Home Dialysis [address] [place], [place] [address] [facility] [address] [facility], [place] [address] 08/11/2024 8:00 AM EST Treatment Home Dialysis [address] [place], [place] [address] Nurse, [employer] [address] [place] [address] 08/12/2024 1:00 PM EST Nurse Only Home Dialysis [address] [place], [place] [address] Nurse, [employer] [address] [place], [place] [address] 08/20/2024 1:00 PM EST Office Visit Home Dialysis [address] [place], [place] [address] [facility] [address] [facility] [place] [id number] Pending Results Name Type Priority Associated Diagnoses Date /Time MONTHLY HLA CLASS 1 & 2 W/REFLEX, SOLID ORGAN TRANSPLANT Lab STAT Pre-transplant evaluation for ESRD (end stage renal disease) 10/17/2023 12:42 PM EST ALT Lab STAT 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 chronic kidney disease, not on chronic dialysis (HCC) ESRD on peritoneal dialysis (HCC) 10/17/2023 12:42 PM EST IRON SCREEN, INCLUDING TIBC Lab STAT 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 chronic kidney disease, not on chronic dialysis (HCC) ESRD on peritoneal dialysis (HCC) 10/17/2023 12:42 PM EST ADJUSTED CALCIUM PHOSPHORUS PRODUCT Lab STAT 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 chronic kidney disease, not on chronic dialysis (HCC) ESRD on peritoneal dialysis (HCC) 10/17/2023 12:42 PM EST PTH Lab STAT 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 chronic kidney disease, not on chronic dialysis (HCC) ESRD on peritoneal dialysis (HCC) 10/17/2023 12:42 PM EST HEPATITIS B SURFACE ANTIGEN Lab STAT 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 chronic kidney disease, not on chronic dialysis (HCC) ESRD on peritoneal dialysis (HCC) 10/17/2023 12:42 PM EST Health Maintenance Due Date Last Done Comments COVID-19 Vaccine (3 - Moderna risk series) 12/21/2020 11/23/2020, 10/18/2020 Hepatitis B (3 of 4 - Risk Dialysis Recombivax 3-dose series) 10/05/2023 05/02/2023, 04/04/2023 Depression Screening 11/18/2023 11/17/2022 Lipid Panel 05/18/2026 05/18/2021, 12/0 09/2009, 11/11/2004, Additional history exists Diabetes Screening 05/22/2026 05/22/2023, 0 03/30/2023, 03/01/2023, Additional history exists DTaP,Tdap,and Td Vaccines (6 [...] stage renal disease) Other specified pre-operative examination ESRD on peritoneal dialysis (HCC) End stage [...] Directives occurred with: Patient Care Teams Chief Sustainability Officer Relationship Specialty Start Date End Date Tomer Garner MD [address] [place] [address] PCP - General 09/19/02 documented as of this encounter
--- OUTSIDE RECORDS SUMMARY | 2024-03-17 14:31 | External Medical Summary ---
Author Name Unknown Address Unknown Organization K01:[place] [facility] [place] [facility] [address] [facility] [address] [facility] [address] Laboratory Report Ordering Provider Test Date Status MARI BOB 10/19/2023 10:03:14 Correction PD Fluid PET test Sample # 1 Observation Date Value Abnormality Reference (Units ) Status Glucose, Body Fluid 10/19/2023 10:03:14 2083 (mg/dL) Correction Diluted and report corrected at provider's request

The reference interval(s) and other method performance specifications may not be available for this body fluid. Comparison of this result with the concentration in the blood, serum, or plasma is recommended. The test result must be integrated into the clinical context for interpretation.

Please refer to test catalog ([email or web address]/body_fluids.cfm) for additional interpretive information.

This test was developed and its performance characteristics determined by [employer]. It has not been cleared or approved by the [place] Food and Drug Administration.
Changed result: Previously reported as >1,500 mg/dL on 10/19/2023 at 1248 EST. Performing Location [facility] [place] [address] [facility] [address] [facility] [address]
--- OUTSIDE RECORDS SUMMARY | 2024-03-17 14:31 | External Medical Summary ---
Author Name Unknown Address Unknown Organization K01:LABORATORY [facility] [place] - [facility] [address] [facility] [place] [address] Laboratory Report Ordering Provider Test Date Status MARI BOB 10/19/2023 12:15:30 Final PD Fluid PET test Sample # 2 Observation Date Value Abnormality Reference (Units ) Status Creatinine, Body Fluid 10/19/2023 12:15:30 12.1 (mg/dL) Final The reference interval(s) an d other method performance specifications may not be available for this body fluid. Comparison of this result with the concentration in the blood, serum, or plasma is recommended. The test result must be integrated into the clinical context for interpretation.

Please refer to test catalog (https://www.[employer].com/catalog/body_fluids.cfm) for additional interpretive information.

This test was developed and its performance characteristics determined by [employer]. It has not been cleared or approved by the [place] Food and Drug Administration. Performing Location LABORATORY [facility] [place] - [address] [facility] [place] [address]
--- OUTSIDE RECORDS SUMMARY | 2024-03-17 14:31 | External Medical Summary ---
Author Name Unknown Address Unknown Organization K01:LABORATORY [facility] [place] - [facility] [address] [place] [address] Laboratory Report Ordering Provider Test Date Status LISBETHGUERRA 10/19/2023 12:10:29 Final PET lab draw Observation Date Value Abnormality Reference (Units ) Status Creatinine 10/19/2023 12:10:29 29.7 Above high normal 0.6-1.2 (mg/dL) Final Glomerular filtration rate/1.73 sq M.predicted [Volume Rate/Area] in Serum, Plasma or Blood by Creatinine-based formula (CKD-EPI) 10/19/2023 12:10:29 2 Below low normal >=60 (mL/min) Final eGFR is calculated based on the CKD-EPI 2020 equation Performing Location LABORATORY [facility] [place] - [facility] [address] [place] [address]
--- OUTSIDE RECORDS SUMMARY | 2024-03-17 14:31 | External Medical Summary ---
Author Name Unknown Address Unknown Organization K01:LABORATORY [facility] - [address] [place] [address] Laboratory Report Ordering Provider Test Date Status MARI BOB 10/19/2023 12:10:29 Final PET lab draw Observation Date Value Abnormality Reference (Units ) Status BUN 10/19/2023 12:10:29 93 Above high normal 6- 20 (mg/dL) Final Performing Location LABORATORY [facility] - [address] [place] [address]
--- OUTSIDE RECORDS SUMMARY | 2024-03-17 14:31 | External Medical Summary ---
Author Name Unknown Address Unknown Organization K01:LABORATORY [facility] - [address] [place] [address] Laboratory Report Ordering Provider Test Date Status MARI BOB 10/19/2023 12:10:29 Final PET lab draw Observation Date Value Abnormality Reference (Units ) Status Glucose 10/19/2023 12:10:29 117 70-120 (mg /dL) Final Performing Location LABORATORY [facility] - [address] [place] [address]
--- OUTSIDE RECORDS SUMMARY | 2024-03-17 14:31 | External Medical Summary ---
Author Name Unknown Address Unknown Organization [id number]:[place] [place] [facility] [address] Laboratory Report Ordering Provider Test Date Status MARI BOB 10/19/2023 10:03:14 Final PD Fluid PET test Sample # 1 Observation Date Value Abnormality Reference (Units ) Status Creatinine, Body Fluid 10/19/2023 10:03:14 2.6 (mg/dL) Final The reference interval(s) an d other method performance specifications may not be available for this body fluid. Comparison of this result with the concentration in the blood, serum, or plasma is recommended. The test result must be integrated into the clinical context for interpretation.

Please refer to test catalog (https://www.[employer]/catalog/body_fluids.cfm) for additional interpretive information.

This test was developed and its performance characteristics determined by [employer]. It has not been cleared or approved by the US Food and Drug Administration. Performing Location [facility] [place] [address] [facility] [address]
--- OUTSIDE RECORDS SUMMARY | 2024-03-17 14:31 | External Medical Summary | Summary of Care ---
Author Name Unknown Organization [facility] Address [address] [place] [address] Phone [phone] Care Team Providers Care Hot Header Operator Name Role Phone Tomer Garner MD Primary Care Provider + [phone] Reason for Visit * Reason Comments Outpatient Testing Encounter Details Date Type Department Care Team ([facility] st Contact Info) Description 10/17/2023 12:30 PM EST Laboratory Laboratory, [place] [address] [place] [address] [facility] [address] [place] [address] Pre-transplant evaluation for ESRD (end stage renal [...] (Oral) 1981,04/11 Pneumococcal Conjugate Vacci ne, 20-valent ([id number]) 11/17/2022 Seasonal Influenza, PF, 6 M & [...] Home Dialysis [address], [place], [place] [phone] 11/03/2023 1:00 PM EST Office Visit Home Dialysis [address] [phone] [facility] [place] Dialysis [address] [place], [place] [address] 11/10/2023 8:00 AM EST Treatment Home Dialysis [address] [place] [address] Nurse, [employer] [facility] [address] [place] [address] 11/10/2023 1:00 PM EST Nurse Only Home Dialysis [address], [place], [place] [address] Nurse, Lance Jessica eBe [address] [place] [address] 12/04/2023 1:00 PM EDT Office Visit Home Dialysis [address], [place] [address] [facility] [place] Dialysis [address] [place], [place] [address] 12/11/2023 8:00 AM EDT Treatment Home Dialysis [address], [place] [address] Nurse, Lance [address] [facility] [address] [place] [address] 12/11/2023 1:00 PM EDT Nurse Only Home Dialysis [address] [place] [address] Nurse, Lance [address] [place] [address] 12/26/2023 1:00 PM EDT Office Visit Home Dialysis [address] [place] [address] [facility] [place] Per[place] Dialysis [address] [place] [address] 01/10/2024 8:00 AM EDT Treatment Home Dialysis [address] [place], [place] [phone] Nurse, Lance [address] [place] [address] 01/10/2024 1:00 PM EDT Nurse Only Home Dialysis [address] [place], [place] [address] Nurse, Lance [address] [facility] [address] [place] [address] 02/08/2024 1:00 PM EDT Office Visit Home Dialysis [address] [place] [address] [facility] [place] Per[place] Dialysis [address] [place] [facility] [address] 02/10/2024 8:00 AM EDT Treatment Home Dialysis [address] [place] [address] Nurse, Lance [address] [employer] [address] [place] [address] 02/12/2024 1:00 PM EDT Nurse Only Home Dialysis [address] [place] [address] Nurse, Lance [address] [employer] [address] [place] [address] 03/05/2024 1:00 PM EDT Office Visit Home Dialysis [address] [place], [place] [address] [facility], Peritoneal Dialysis [address] [place] [address] 03/11/2024 8:00 AM EDT Treatment Home Dialysis [address] [place], [place] [address] Nurse, [employer] [facility] [address] [place], [place] [address] 03/11/2024 1:00 PM EDT Nurse Only Home Dialysis [address] [place], [place] [phone] Nurse, Lance [address] [facility] [address] [place], [place] [address] 03/19/2024 1:00 PM EDT Office Visit Home Dialysis [address] [place], [place] [address] [facility] [place] Per[place] Dialysis [address] [place] [facility] [address] 04/11/2024 8:00 AM EDT Treatment Home Dialysis [address] [place], [place] [phone] Nurse, Lance Drive [facility] [address] [place], [place] [address] 04/11/2024 1:00 PM EDT Nurse Only Home Dialysis [address] [place], [place] [address] Nurse, Lance [employer] [place] [address] [place] [address] 04/29/2024 1:00 PM EDT Office Visit Home Dialysis [address] [place], [place] [address] [facility], Peritoneal Dialysis [address] [place] [facility] [address] 05/12/2024 8:00 AM EDT Treatment Home Dialysis Ham[address] [place], [place] [phone] Nurse, aLnce Lopez [facility] [address] [place], [place] [address] 05/14/2024 1:00 PM EDT Nurse Only Home Dialysis [address] [place], [place] [phone] Nurse, Lance Drive [facility] [address] [place], [place] 06/07/2024 1:00 PM EDT Office Visit Home Dialysis [address] [place], [place] [address] [facility] [place] Peritoneal Dialysis [address] [place] [address] 06/11/2024 8:00 AM EDT Treatment Home Dialysis [address] [place], [place] [phone] Nurse, Lance Lopez [facility] [address] [place], [place] [address] 06/11/2024 1:00 PM EDT Nurse Only Home Dialysis [address] [place], [place] [address] Nurse, Lance Jessica Bee [address] [place], [place] [address] 06/25/2024 1:00 PM EDT Office Visit Home Dialysis [address] [place], [place] [address] [facility] [place] Dialysis [address] [place] [address] [facility] [address] 07/12/2024 8:00 AM EDT Treatment Home Dialysis [address] [place], [place] [address] Nurse, Lance [employer] [place] [address] [place], [place] [address] 07/12/2024 1:00 PM EDT Nurse Only Home Dialysis [address] [place], [place] [address] Nurse, [employer] [facility] [address] [place] [address] 07/22/2024 1:00 PM EST Office Visit Home Dialysis [address] [place], [place] [address] [facility] [place] Per[place] Dialysis [address] [facility], [place] [id number] 08/11/2024 8:00 AM EST Treatment Home Dialysis [address] [place], [place] [address] Nurse, Rol[employer] [facility] [address] [place] [address] 08/12/2024 1:00 PM EST Nurse Only Home Dialysis [address] [place], [place] [address] Nurse, [employer] [address] [place], [place] [address] 08/20/2024 1:00 PM EST Office Visit Home Dialysis [address] [place], [place] [address] [facility] [place] [facility]ialysis [address] [facility] [place] [id number] Pending Results Name Type Priority Associated Diagnoses [...] Advance Directives occurred with: Patient Care Teams Hot Header Operator Relationship Specialty Start Date End Date Tomer Garner MD [address] [place] [address] PCP - General 09/19/02 documented as of this encounter
--- OUTSIDE RECORDS SUMMARY | 2024-03-17 14:31 | External Medical Summary ---
Author Name Unknown Address Unknown Organization K01:[facility] [place] [facility] [address] Laboratory Report Ordering Provider Test Date Status MAIR BOB 10/17/2023 13:21:20 Final Observation Date Value Abnormality Reference (Units ) Status Creatinine, Body Fluid 10/17/2023 13:21:20 8.4 (mg/dL) Final The reference interval(s) an d other method performance specifications may not be available for this body fluid. Comparison of this result with the concentration in the blood, serum, or plasma is recommended. The test result must be integrated into the clinical context for interpretation.

Please refer to test catalog ([email or web address]/catalog/body_fluids.cfm) for additional interpretive information.

This test was developed and its performance characteristics determined by [employer]. It has not been cleared or approved by the US Food and Drug Administration. Performing Location [facility] [place] [address] [facility] [address]
--- OUTSIDE RECORDS SUMMARY | 2024-03-17 14:31 | External Medical Summary ---
Author Name Unknown Address Unknown Organization K01:LAB[facility]ORY [facility] [place] [address] [place] [address] Laboratory Report Ordering Provider Test Date Status MAGI BOBDEZ 10/17/2023 12:42:23 Final Deficient: <20 ng/mL
Ins ufficient: 20-29 ng/mL
Recommended/Optimum:30-50 ng/mL

Vitamin D intoxication is rare. If suspicious of Vitamin D toxicity, evaluation of serum Calcium and PTH is recommended. Observation Date Value Abnormality Reference (Units ) Status 25-OH Vitamin D total 10/17/2023 12:42:23 43 >19 (ng/mL) Final Performing Location LABORATORY C - [address] [place] [address]
[2024-03-17] MEDS: SODIUM CHLORIDE 0.9% 1,000 ML IV SCH (14:32)
--- OUTSIDE RECORDS SUMMARY | 2024-03-17 14:32 | External Medical Summary | Summary of Care ---
Author Name Unknown Organization [facility] Address [address] [place] [address] Phone [phone] Care Team Providers Care Housekeeping Supervisor Hotel Name Role Phone Tomer Garner MD Primary Care Provider Reason for Visit * Reason Comments Hemodialysis * Episode Based Medications (Routine) - Closed Specialty Diagnoses / Procedures Referred By Contac t Referred To Contact Diagnoses ESRD on peritoneal dialysis (HCC) 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 chronic kidney disease, not on chronic dialysis (HCC) Procedures MA EPOETIN PITER, NON-ESRD MA EPOETIN PITER, 100 UNITS ESRD Yonny Saldivar MD [address] [place] [address] [address] [place] [address] Referral ID Status Reason Start Date Expiration Date Visits Re quested Visits Authorized [id number] Closed 08/22/2023 02/21/[phone] Encounter Details Date Type Department Care Team (Late st Contact Info) Description 08/12/2023 5:30 AM EST Treatment Hemodialysis [address] [...] as of this encounter (statuses as of 10/15/2023) Medications Medication Sig Dispensed Refills Start Date End Date Status Lovastatin 10 MG Oral TabletIndications :Kidney replaced by transplant Take 1 Tablet by mouth in the morning. 90 Tablet 3 09/28/2022 Active Mycophenolate Mofetil 500 MG Oral Tablet (CellCept) Take 1 Tablet by mouth in the morning and 1 Tablet before bedtime. 360 Tablet 1 11/07/2022 Active Losartan Potassium 25 MG Oral Tablet (Cozaar)Indicatio ns:HTN, goal below 130/80 Take 1 Tablet by mouth in the morning. 90 Tablet 3 11/17/2022 Active cycloSPORINE Modified 25 MG Oral CapsuleIndication s:Kidney replaced by transplant Take 2 capsules in the morning and 2 capsules in the evening 360 Capsule 3 12/02/2022 Active Folic Acid 1 MG Oral Tablet Take 1 Tablet by mouth in the morning. 90 Tablet 1 12/01/2022 Active Febuxostat 80 MG Oral Tablet (Uloric)Leylatio ns:Chronic gout without tophus, unspecified cause, unspecified [...] and snacks. 900 Capsule 3 07/18/2023 Active Metoprolol Succinate ER 100 MG Oral Tablet Extended Release 24 Hour (Toprol XL) Take 1 Tablet (100 mg) by mouth in the morning. 120 Tablet 3 08/01/2022 4 Discontinued oxyCODONE HCl 5 MG Oral Tablet (Oxy IR) Take 1 Tablet by mouth every 6 hours as needed for Pain, Severe. 10 Tablet 0 05/22/2023 3 Discontinued Hospital, Clinic, or Other Facility Administered Medication Ordered Dose Route Frequency Start Date End Date Status Albuterol Sulfate (Proventil) (2.5 MG/3ML) 0.083% inhalation solution 2.[address] of the chest 2.5 mg NEBULIZER ONCE PRN 07/18/2023 08/14/2023 Ended documented as of this encounter (statuses as of 10/15/2023) Active Problems Problem Noted Date Diagnosed Date [...] as of this encounter (statuses as of 10/15/2023) Resolved Problems Problem Noted Date Diagnosed Date Resolved Date Dyslipidemia, goal to be determined 08/27/2009 11/21/2013 Overview: Per Lipid Taxonomy. PURE HYPERCHOLESTEROLEM 04/25/200208/11 Overview: Per Lipid Taxonomy. 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 1 Hemoptysis 04/11/1996 08/11/1996 Overview: ICD-10 update of inactive term documented as of this encounter (statuses as of 10/15/2023) Immunizations Name Administration Dates Next Due COVID-19 mRNA, LNP-s, No Pre serve, 2-Dose Series (Moderna) 11/23/2020,10/18/2020 DTP Vaccine 1981,1981,1981 HEP B - Hepatitis B (Dialysis/Immumocomp Pt) 05/02/2023,04/04/2023 MMR - Measles/Mumps/Rubella Vaccine 05/11/1982 OPV - Polio Virus Vaccine (Oral) 1981,04/11 Pneumococcal Conjugate Vacci ne, 20-valent ([id number]) 11/17/2022 Pneumococcal Polysaccharide PPV23 (Pneumovax) 02/03/2004 Seasonal [...] Sign Reading Time Taken Comments Blood Pressure 127/83 08/12/2023 9:40 AM EST Pulse 75 08/12/2023 9:40 AM EST Temperature 36.9 C (98.4 F) 08/12/2023 9:40 AM ES T Respiratory Rate 18 08/12/2023 9:40 AM EST Oxygen Saturation - - [...] as of this encounter Miscellaneous Notes * Addendum Note - Mary Mabry OSA - 08/14/2023 8:05 AM ESTAddended by: MARY MABRY on: 08/14/2023 08:05 AM Modules accepted: Orders documented in this encounter Plan of Treatment Upcoming Encounters Date Type Department Care Team (Late st Contact Info) Description 09/28/2023 Plan of Care Documentation Home Dialysis [address] [place] [address] 11/03/2023 1:00 PM EST Office Visit Home Dialysis [address] [place] [address] [facility], Peritoneal Dialysis [address] [place] [phone] 11/10/2023 8:00 AM EST Treatment Home Dialysis [address] [place] [address] Nurse, Lance Lopez [facility] [address] [place], [place] [address] 11/10/2023 1:00 PM EST Nurse Only Home Dialysis [address] [place], [place] [phone] Nurse, Lance Drive [facility] [address] [place], [place] [address] 12/04/2023 1:00 PM EDT Office Visit Home Dialysis [address] [place], [place] [address] [place], Peritoneal Dialysis [address] [place] [address] 12/11/2023 8:00 AM EDT Treatment Home Dialysis [address] [place], [place] [phone] Nurse, Lance [address] [place] [address] 12/11/2023 1:00 PM EDT Nurse Only Home Dialysis [address] [place] [address] Nurse, Lance Lopez [address] [place] [address] 12/26/2023 1:00 PM EDT Office Visit Home Dialysis [address] [place], [place] [address] [place], Peritoneal Dialysis [address] [place] [address] 01/10/2024 8:00 AM EDT Treatment Home Dialysis [address] [place], [place] [phone] Nurse, Lance Drive [facility] [address] [place], [place] [address] 01/10/2024 1:00 PM EDT Nurse Only Home Dialysis [address] [place], [place] [phone] Nurse, Lance Drive [employer] [address] [place], [place] [address] 02/08/2024 1:00 PM EDT Office Visit Home Dialysis [address] [place], [place] [address] [place], Peritoneal Dialysis [address] [place] [address] 02/10/2024 8:00 AM EDT Treatment Home Dialysis [address] [place], [place] [phone] Nurse, Lance [address] [employer] [address] [place], [place] [address] 02/12/2024 1:00 PM EDT Nurse Only Home Dialysis [address] [place], [place] [phone] Nurse, Lance Drive [employer] [address] [place], [place] [address] 03/05/2024 1:00 PM EDT Office Visit Home Dialysis [address] [place], [place] [address] [place], Peritoneal Dialysis [address] [facility] [place] [address] 03/11/2024 8:00 AM EDT Treatment Home Dialysis [address] [place], [place] [phone] Nurse, Lance [address] [place], [place] [address] 03/11/2024 1:00 PM EDT Nurse Only Home Dialysis [address] [place], [place] [phone] Nurse, Lance [address] [employer] [address] [place], [place] [address] 03/19/2024 1:00 PM EDT Office Visit Home Dialysis [address] [place], [place] [address] [facility], Peritoneal Dialysis [address] [place] [address] 04/11/2024 8:00 AM EDT Treatment Home Dialysis [address] [place], [place] [phone] Nurse, [employer] [facility] [address] [place], [place] [address] 04/11/2024 1:00 PM EDT Nurse Only Home Dialysis [address] [place], [place] [phone] Nurse, [employer] [address] [place], [place] 04/29/2024 1:00 PM EDT Office Visit Home Dialysis [address] [place], [place] [address] [place], Peritoneal Dialysis [address] [place], [place] [address] 05/12/2024 8:00 AM EDT Treatment Home Dialysis [address] [place], [place] [phone] Nurse, [employer] [address] [place], [place] [address] 05/14/2024 1:00 PM EDT Nurse Only Home Dialysis [address] [place], [place] [phone] Nurse, [employer] [address] [place], [place] [address] 06/07/2024 1:00 PM EDT Office Visit Home Dialysis [address] [place], [place] [address] [place], Peritoneal Dialysis [address] [place] [address] 06/11/2024 8:00 AM EDT Treatment Home Dialysis [address] [place], [place] [address] Nurse, Lance Lopez [facility] [address] [place], [place] [address] 06/11/2024 1:00 PM EDT Nurse Only Home Dialysis [address] [place], [place] [address] Nurse, Lancebaltazar Lopez [address] [place], [place] [address] 06/25/2024 1:00 PM EDT Office Visit Home Dialysis [address] [place], [place] [address] [place], Peritoneal Dialysis [address] [facility], [place] [address] 07/12/2024 8:00 AM EDT Treatment Home Dialysis [address] [place], [place] [phone] Nurse, Lancebaltazar Lopez [address] [place], [place] [address] 07/12/2024 1:00 PM EDT Nurse Only Home Dialysis [address] [place], [place] [address] Nurse, Lancebaltazar Lopez [address] [place], [place] [address] 07/22/2024 1:00 PM EST Office Visit Home Dialysis [address] [place], [place] [address] [place], Peritoneal Dialysis [address] [facility] [place] [address] 08/11/2024 8:00 AM EST Treatment Home Dialysis [address] [place], [place] [address] Nurse, [address] [place] [address] 08/12/2024 1:00 PM EST Nurse Only Home Dialysis [address] [place] [phone] Nurse, Lance [address] [facility] [address] [place] [address] 08/20/2024 1:00 PM EST Office Visit Home Dialysis [address] [phone] [facility], Peritoneal Dialysis [address] [place] [address] Health Maintenance Due Date Last Done Comments COVID-19 Vaccine (3 - Moderna risk series) 12/21/2020 11/23/2020, 10/18/2020 Hepatitis B (3 of 4 - Risk Dialysis Recombivax 3-dose series) 10/05/2023 05/02/2023, 04/04/2023 Depression Screening 11/18/2023 11/17/2022 Lipid Panel 05/18/2026 05/18/2021, 12/09/2009, 11/11/2004, Additional history exists Diabetes Screening 05/22/2026 [...] Procedure Name Priority Date/Time Associated Diagnosis Comments MONTHLY HLA CLASS 1 & 2 W/REFLEX, SOLID ORGAN TRANSPLANT STAT 08/15/2023 6:01 AM EST Pre-transplant evaluation for ESRD (end stage renal disease) HGB STAT 08/15/2023 6:01 AM EST ESRD (end stage renal disease) (HCC) Anemia of chronic renal failure, stage 5 (HCC) documented in this encounter Results * MONTHLY HLA CLASS 1 & 2 W/REFLEX, SOLID ORGAN TRANSPLANT (08/15/2023 6:01 AM EST) External Lab Report See Scanned Report 08/30/2023 11:26 AM EST [place] Blood Blood sample taken from central line / Unknown Venipuncture / Unknown 08/15/2023 6:01 AM EST 08/15/2023 6:01 AM EST Tomer Daniel MD LAB BLOOD ORDER Y[facility] [place] * (ABNORMAL) HGB (08/15/2023 6:01 AM EST) HGB 10.7(L) 14.0 - 16.8 g/dL 08/15/2023 7:44 AM EST LABORATORY [facility] Blood Blood sample taken from central line / Unknown Venipuncture / Unknown 08/15/2023 6:01 AM EST 08/15/2023 6:01 AM EST Yonny Saldivar MD LAB BLOOD ORDERAB LES [facility] [address] [place] [address] documented in this encounter Visit Diagnoses Diagnosis [...] 4 mcg 4 mcg, Intravenous, ONCE, On 08/12/23 at 0730, For 1 dose Given 08/12/2023 8:18 AM EST 4 mcg hEParin 1,000 unit/mL infusion for dialysis 500 Units/hr (0.5 mL/hr), Hemodialysis, CONTINUOUS, Starting on 08/12/23 at 0730, Until 08/12/23 at 1403, Maintenance: Stop 1 hour before dialysis end in AVF/AVG. Continue through dialysis in CVC. The total delivered dose is approximately 2,500 to 5,000 units, based on weight and treatment duration assumptions New Bag 08/12/2023 8:18 AM EST 500 Units/hr 0.5 mL/hr hEParin 1000 UNIT/ML inj 2,000 Units 2,000 Units, Intravenous, ONCE, On 08/12/23 at 0730, For 1 dose, Loading dose Given 08/12/2023 8:17 AM EST 2,000 Units Iron Sucrose (Venofer) inj 100 mg 100 mg, Intravenous, ONCE, 1 dose, On 08/12/23 at 0730 Given 08/12/2023 8:18 AM EST 100 mg sodium citrate 4% (Anticoagulant Sodium Citrate) inj 2.5 mL 2.5 mL, Dialysis catheter, ONCE, On 08/12/23 at 0730, For 1 dose, ARTERIAL For use only to lock dialysis catheter after dialysis Given 08/12/2023 8:18 AM EST 2.5 mL sodium citrate 4% (Anticoagulant Sodium Citrate) inj 2.5 mL 2.5 mL, Dialysis catheter, ONCE, On 08/12/23 at 0730, For 1 dose, VENOUS For use only to lock dialysis catheter after dialysis Given 08/12/2023 8:19 AM EST 2.5 mL documented in this [...] Advance Directives occurred with: Patient Care Teams Housekeeping Supervisor Hotel Relationship Specialty Start Date End Date Tomer Garner MD [address] [facility] [place] [address] PCP - General 09/19/02 documented as of this encounter
--- OUTSIDE RECORDS SUMMARY | 2024-03-17 14:32 | External Medical Summary | Summary of Care ---
Author Name Unknown Organization [facility] Address [address] [place] [address] Phone [phone] Care Team Providers Care Form Worker Name Role Phone Tomer Garner MD Primary Care Provider Reason for Visit * Reason Onset Date Comments Advice 10/16/2023 Encounter Details Date Type Department Care Team ([facility] st Contact Info) Description 10/16/2023 Telephone Home Dialysis [address] [place] [address] [place] [address] Cathy Wang, RDN [address] [place] [address] Advice Allergies No known active allergiesdocumented as of this encounter (statuses as of 10/16/2023) Medications Medication Sig Dispensed Refills Start Date [...] as of this encounter (statuses as of 10/16/2023) Active Problems Problem Noted Date Diagnosed Date [...] as of this encounter (statuses as of 10/16/2023) Resolved Problems Problem Noted Date Diagnosed Date Resolved Date Dyslipidemia, goal to be determined 08/27/2009 11/21/2013 Overview: Per Lipid Taxonomy. PURE HYPERCHOLESTEROLEM 04/25/200208/11 Overview: Per Lipid Taxonomy. 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 1 Hemoptysis 04/11/1996 08/11/1996 Overview: ICD-10 update of inactive term documented as of this encounter (statuses as of 10/16/2023) Immunizations Name Administration Dates Next Due COVID-19 mRNA, LNP-s, No Pre serve, 2-Dose Series (Moderna) 11/23/2020,10/18/2020 DTP Vaccine 1981,1981,1981 HEP B - Hepatitis B (Dialysis/Immumocomp Pt) 05/02/2023,04/04/2023 MMR - Measles/Mumps/Rubella Vaccine 05/11/1982 OPV - Polio Virus Vaccine (Oral) 1981,04/11 Pneumococcal Conjugate Vacci ne, 20-valent ([id number]) 11/17/2022 Seasonal Influenza, PF, 6 M & [...] Telephone Encounter - Cathy Wang RDN - 10/16/2023 1:15 PM EST Spoke with pt per PD nurse request due to weight increasing, and likelihood that pt is taking in too much fluid. Pt admits that he "overdid it" when going out to eat on Monday. Admits to drinking 2 glasses of water at that meal. Reminded him that he likely had his entire daily limit of 32 ounces at that meal. Reviewed fluid restriction with him and rationale for it. He reports he will try to refocus on fluid restriction. Cathy Wang RDN, CSOW, LDN Renal Dietitian Angélica [phone] documented in this encounter Plan of Treatment Upcoming Encounters Date Type Department Care Team (Late st Contact Info) Description 09/28/2023 Plan of Care Documentation Home Dialysis [address] [id number] 11/03/2023 1:00 PM EST Office Visit Home Dialysis [facility] [id number] Mdc, Peritoneal Dialysis [address] [employer] [facility] [place] [address] 11/10/2023 8:00 AM EST Treatment Home Dialysis [facility] [place] [address] Nurse, Page Mage [place] [address] [place] [address] 11/10/2023 1:00 PM EST Nurse Only Home Dialysis [facility] [place] [address] Nurse, Page Mage [facility] [address] [place] [address] 12/04/2023 1:00 PM EDT Office Visit Home Dialysis [facility] [place] [address] Mdc, Peritoneal Dialysis [address] [place] [address] 12/11/2023 8:00 AM EDT Treatment Home Dialysis [facility], [place] [phone] Nurse, Lance [address] [facility] [address], [place] [address] 12/11/2023 1:00 PM EDT Nurse Only Home Dialysis [facility], [place] [phone] Nurse, Lance Drive [place] [address] [place], [place] [address] 12/26/2023 1:00 PM EDT Office Visit Home Dialysis [facility], [place] [address] [facility]ialysis [address] [place] [facility] [address] 01/10/2024 8:00 AM EDT Treatment Home Dialysis [facility] [place] [address] Nurse, Lance [address] [facility] [address] [place] [address] 01/10/2024 1:00 PM EDT Nurse Only Home Dialysis [facility] [place], [place] [phone] Nurse, Lance [address] [facility] [address] [place] [address] 02/08/2024 1:00 PM EDT Office Visit Home Dialysis [facility] [place], [place] [address] [facility] Dialysis [address] [facility] [place], [place] [address] 02/10/2024 8:00 AM EDT Treatment Home Dialysis [facility], [place] [phone] Nurse, Lance [address] [facility] [address] [place], [place] 02/12/2024 1:00 PM EDT Nurse Only Home Dialysis [facility] [place], [place] [phone] Nurse, Lance Drive [address], [place] [address] 03/05/2024 1:00 PM EDT Office Visit Home Dialysis [facility], [place] [address] [facility] Per[place] Dialysis [address] [place] [address] 03/11/2024 8:00 AM EDT Treatment Home Dialysis [facility] [address], [place] [phone] Nurse, Lance [address] [facility] [address] [place] [address] 03/11/2024 1:00 PM EDT Nurse Only Home Dialysis [facility] [place] [address] Nurse, Lance [address] [facility] [address], [place] [address] 03/19/2024 1:00 PM EDT Office Visit Home Dialysis [facility], [place] [address] [facility]ialysis [address] [place] [address] 04/11/2024 8:00 AM EDT Treatment Home Dialysis [facility] [address], [place] [phone] Nurse, Lance Drive [facility] [address], [place] [address] 04/11/2024 1:00 PM EDT Nurse Only Home Dialysis [facility], [place] [phone] Nurse, Lancebaltazar Bee [address], [place] [address] 04/29/2024 1:00 PM EDT Office Visit Home Dialysis [facility] [address], [place] [phone] [facility] Dialysis [address] [place] [address] 05/12/2024 8:00 AM EDT Treatment Home Dialysis [facility], [place] [phone] Nurse, Lance Drive [place] [address], [place] 05/14/2024 1:00 PM EDT Nurse Only Home Dialysis [facility] [place], [place] [phone] Nurse, Lance Is That Odd [facility] [address], [place] [address] 06/07/2024 1:00 PM EDT Office Visit Home Dialysis [facility], [place] [phone] [facility] Dialysis [address] [place] [facility] [address] 06/11/2024 8:00 AM EDT Treatment Home Dialysis [facility], [place] [phone] Nurse, Lancebaltazar Bee [address], [place] [address] 06/11/2024 1:00 PM EDT Nurse Only Home Dialysis [facility], [place] [phone] Nurse, Lance [employer] That [employer] [place] [address], [place] [address] 06/25/2024 1:00 PM EDT Office Visit Home Dialysis [facility], [place] [address] [facility] Peritoneal Dialysis [address] [place] [address] 07/12/2024 8:00 AM EDT Treatment Home Dialysis [facility] [place] [address] Nurse, Lance Is That Odd [facility] [address] [place] [address] 07/12/2024 1:00 PM EDT Nurse Only Home Dialysis [facility] [place], [place] [address] Nurse, Page Mage [facility] [address], [place] [address] 07/22/2024 1:00 PM EST Office Visit Home Dialysis [facility] [place] [address] [facility] Per[place] Dialysis [address] [place] [address] 08/11/2024 8:00 AM EST Treatment Home Dialysis [facility] [place], [place] [phone] Nurse, Lance Is That Odd [place] [address], [place] [address] 08/12/2024 1:00 PM EST Nurse Only Home Dialysis [facility], [place] [address] Nurse, Lance Is That Odd [facility] [address], [place] [address] 08/20/2024 1:00 PM EST Office Visit Home Dialysis [facility] [place] [address] [facility] Dialysis [address] [facility] [place] [address] Health Maintenance Due Date Last Done Comments [...] Advance Directives occurred with: Patient Care Teams Form Worker Relationship Specialty Start Date End Date Tomer Garner MD [address] [place] [address] PCP - General 09/19/02 documented as of this encounter
--- OUTSIDE RECORDS SUMMARY | 2024-03-17 14:32 | External Medical Summary ---
Author Name Unknown Address Unknown Organization K[facility] [address] [place] [address] Laboratory Report Ordering Provider Test Date Status MARI BOB 10/17/2023 12:42:23 Final Observation Date Value Abnormality Reference (Units ) Status Hep B surface Ag 10/17/2023 12:42:23 Negative Neg ative Final Performing Location [facility] - [address] [place] [address]
--- OUTSIDE RECORDS SUMMARY | 2024-03-17 14:32 | External Medical Summary ---
Author Name Unknown Address Unknown Organization K[facility] [place] [address] [facility] [address] Laboratory Report Ordering Provider Test Date Status MARI BOB 10/17/2023 12:42:23 Final Observation Date Value Abnormality Reference (Units ) Status WBC, Total 10/17/2023 12:42:23 8.20 4.00-10.80 (K/uL) Final RBC 10/17/2023 12:42:23 3.53 4.50-5.25 (M/uL) Final Hemoglobin 10/17/2023 12:42:23 10.7 Below low normal 14.0-16.8 (g/dL) Final HCT 10/17/2023 12:42:23 31.0 Below low normal 40.0-48.4 (%) Final MCV 10/17/2023 12:42:23 87.8 82.0-99.5 (fL) Final MCH 10/17/2023 12:42:23 30.3 27.0-34.0 (pg) Final MCHC 10/17/2023 12:42:23 34.5 32.0-36.0 (g/dL) Final RDW 10/17/2023 12:42:23 12.6 11.5-15.5 (%) Final Platelets 10/17/2023 12:42:23 162 140-400 (K/uL) Final MPV 10/17/2023 12:42:23 10.3 6.6-11.1 (fL) Final Nucleated erythrocytes/100 leukocytes [Ratio] in Blood by Automated count 10/17/2023 12:42:23 0 <=0 (/100 WBCs) Final Performing Location [facility] [place] [address] [place] [id number]
--- OUTSIDE RECORDS SUMMARY | 2024-03-17 14:32 | External Medical Summary | Summary of Care ---
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 chronic kidney disease, not on chronic dialysis (HCC) Procedures [place] EPOETIN PITER, NON-ESRD [place] EPOETIN PITER, 100 UNITS ESRD Yonny Saldivar MD [address] [place] [address] [address] [place] [address] [place] [address] Referral ID Status Reason Start Date Expiration Date Visits Re quested Visits Authorized [id number] Closed 08/22/2023 02/21/2024 999 0 Encounter Details [...] as of this encounter (statuses as of 10/14/2023) Medications Medication Sig Dispensed Refills Start Date [...] as of this encounter (statuses as of 10/14/2023) Active Problems Problem Noted Date Diagnosed Date [...] as of this encounter (statuses as of 10/14/2023) Resolved Problems Problem Noted Date Diagnosed Date Resolved Date Dyslipidemia, goal to be determined 08/27/2009 11/21/2013 Overview: Per Lipid Taxonomy. PURE HYPERCHOLESTEROLEM 04/25/200208/11 Overview: Per Lipid Taxonomy. 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 1 Hemoptysis 04/11/1996 08/11/1996 Overview: ICD-10 update of inactive term documented as of this encounter (statuses as of 10/14/2023) Immunizations Name Administration Dates Next Due COVID-19 mRNA, LNP-s, No Pre serve, 2-Dose Series (Moderna) 11/23/2020,10/18/2020 DTP Vaccine 1981,1981,1981 HEP B - Hepatitis B (Dialysis/Immumocomp Pt) 05/02/2023,04/04/2023 MMR - Measles/Mumps/Rubella Vaccine 05/11/1982 OPV - Polio Virus Vaccine (Oral) 1981,04/11 Pneumococcal Conjugate Vacci ne, 20-valent ([id number]) 11/17/2022 Pneumococcal Polysaccharide PPV23 (Pneumovax) 02/03/2004 Seasonal [...] [place] [address] [place] [address] Mdc, Peritoneal Dialysis [address] [place] [id number] 11/10/2023 8:00 AM EST Treatment Home Dialysis [place] [address] [place] [address] Nurse, Lance Lopez [place] [address] [place], [place] [address] 11/10/2023 1:00 PM EST Nurse Only Home Dialysis [place] [address] [place], [place] [phone] Nurse, Lance [address] [facility] [address] [place], [place] [address] 12/04/2023 1:00 PM EDT Office Visit Home Dialysis [place] [place], [place] [address] [facility] [address] [place] [address] 12/11/2023 8:00 AM EDT Treatment Home Dialysis [facility] [place], [place] [phone] Nurse, Lance [address] [place] [address] [place] [address] 12/11/2023 1:00 PM EDT Nurse Only Home Dialysis [place] [address] [place] [address] Nurse, Lance Lopez [place] [address] [place] [address] 12/26/2023 1:00 PM EDT Office Visit Home Dialysis [address] [place], [place] [address] [facility] [place] [address] [place] [address] 01/10/2024 8:00 AM EDT Treatment Home Dialysis [address] [place], [place] [phone] Nurse, Lance [address] [place] [address] [place], [place] [address] 01/10/2024 1:00 PM EDT Nurse Only Home Dialysis [facility] [place], [place] [phone] Nurse, Lance [address] [facility] [address] [place], [place] [address] 02/08/2024 1:00 PM EDT Office Visit Home Dialysis [address] [place], [place] [address] [facility] [address] [place] [address] 02/10/2024 8:00 AM EDT Treatment Home Dialysis [facility] [place], [place] [phone] Nurse, Lance [address] [facility] [address] [place], [place] [address] 02/12/2024 1:00 PM EDT Nurse Only Home Dialysis [place] [address] [place], [place] [phone] Nurse, Lance [address] [facility] [address] [place], [place] [address] 03/05/2024 1:00 PM EDT Office Visit Home Dialysis [address] [place], [place] [address] [facility]ialysis [address] [place] [facility] [place] [address] 03/11/2024 8:00 AM EDT Treatment Home Dialysis [facility] [place], [place] [phone] Nurse, Lance [address] [place] [address] [place], [place] [address] 03/11/2024 1:00 PM EDT Nurse Only Home Dialysis [facility] [place], [place] [phone] Nurse, Lance [address] [facility] [address] [place], [place] [address] 03/19/2024 1:00 PM EDT Office Visit Home Dialysis [facility] [place], [place] [address] Mdc, Peritoneal Dialysis [address] [place] [address] 04/11/2024 8:00 AM EDT Treatment Home Dialysis [facility] [address] [place], [place] [phone] Nurse, [employer] [facility] [address] [place], [place] [address] 04/11/2024 1:00 PM EDT Nurse Only Home Dialysis [facility] [place], [place] [phone] Nurse, REQQI [address] [place], [place] 04/29/2024 1:00 PM EDT Office Visit Home Dialysis [facility] [place], [place] [address] [facility]ialysis [address] [place], [place] [address] 05/12/2024 8:00 AM EDT Treatment Home Dialysis [facility] [address] [place], [place] [phone] Nurse, REQQI [address] [place], [place] [address] 05/14/2024 1:00 PM EDT Nurse Only Home Dialysis [facility] [place], [place] [phone] Nurse, REQQI [address] [place], [place] [address] 06/07/2024 1:00 PM EDT Office Visit Home Dialysis [facility] [place], [place] [address] [facility]ialysis [address] [place] [address] 06/11/2024 8:00 AM EDT Treatment Home Dialysis [facility] [place], [place] [address] Nurse, Lance Lopez [address] [place], [place] [address] 06/11/2024 1:00 PM EDT Nurse Only Home Dialysis [facility] [place], [place] [address] Nurse, Lancebaltazar Lopez [facility] [address] [place], [place] [address] 06/25/2024 1:00 PM EDT Office Visit Home Dialysis [facility] [place], [place] [address] [facility]ialysis [address] [facility], [place] [address] 07/12/2024 8:00 AM EDT Treatment Home Dialysis [facility] [place], [place] [phone] Nurse, Lancebaltazar Lopez [address] [place], [place] [address] 07/12/2024 1:00 PM EDT Nurse Only Home Dialysis [facility] [place], [place] [address] Nurse, Lancebaltazar Lopez [address] [place], [place] [address] 07/22/2024 1:00 PM EST Office Visit Home Dialysis [facility] [place], [place] [address] [facility]ialysis [address] [place] [facility] [place] [address] 08/11/2024 8:00 AM EST Treatment Home Dialysis [facility] [place], [place] [address] Nurse, [address] [place] [address] 08/12/2024 1:00 PM EST Nurse Only Home Dialysis [facility] [address] [place] [phone] Nurse, [address] [address] [place] [address] 08/20/2024 1:00 PM EST Office Visit Home Dialysis [facility] [address] [place] [phone] Mdc, Peritoneal Dialysis [address] [...] LAB BLOOD ORDERAB LES [facility] [address] [place] [address] documented in this encounter Visit Diagnoses Diagnosis [...] Directives occurred with: Patient Care Teams Production Team Leader Relationship Specialty Start Date End Date Tomer Garner MD [address] [place] [address] PCP - General 09/19/02 documented as of this encounter
--- OUTSIDE RECORDS SUMMARY | 2024-03-17 14:32 | External Medical Summary | Summary of Care ---
Author Name Unknown Organization [facility] Address [address] [place] [address] Phone [phone] Care Team Providers Care Other Sports Coach Or Instructor Name Role Phone Tomer Garner MD Primary Care Provider Reason for Visit * Reason Comments Hemodialysis * Episode Based Medications (Routine) - Closed Specialty Diagnoses / Procedures Referred By Contac t Referred To Contact Diagnoses ESRD on peritoneal dialysis (HCC) 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 chronic kidney disease, not on chronic dialysis (HCC) Procedures [place] EPOETIN PITER, NON-ESRD [place] EPOETIN PITER, 100 UNITS ESRD Yonny Saldivar MD [address] [place] [address] [place] [address] Referral ID Status Reason Start Date Expiration Date Visits Re quested Visits Authorized [id number] Closed 08/22/2023 02/21/2024 999 0 Encounter Details [...] (Oral) 1981,04/11 Pneumococcal Conjugate Vacci ne, 20-valent ([id number]) 11/17/2022 Pneumococcal Polysaccharide PPV23 (Pneumovax) 02/03/2004 Seasonal [...] [address] [place] [address] [address] Mdc, Peritoneal Dialysis [address] [place] [id number] 11/10/2023 8:00 AM EST Treatment Home Dialysis [facility] [address] [place] [address] Nurse, Lance Lopez [address] [place], [place] [address] 11/10/2023 1:00 PM EST Nurse Only Home Dialysis [facility] [place], [place] [phone] Nurse, Lance [address] [facility] [address] [place], [place] [address] 12/04/2023 1:00 PM EDT Office Visit Home Dialysis [facility] [address] [place], [place] [address] [facility] [place] [address] [place] [address] 12/11/2023 8:00 AM EDT Treatment Home Dialysis [facility] [address] [place], [place] [phone] Nurse, Lance [address] [place] [address] 12/11/2023 1:00 PM EDT Nurse Only Home Dialysis [facility] [place] [address] Nurse, Lance Lopez [address] [place] [address] 12/26/2023 1:00 PM EDT Office Visit Home Dialysis [facility] [address] [place], [place] [address] [facility] [place] [address] [facility] [place] [address] 01/10/2024 8:00 AM EDT Treatment Home Dialysis [facility] [address] [place], [place] [phone] Nurse, Lance [address] [place], [place] [address] 01/10/2024 1:00 PM EDT Nurse Only Home Dialysis [facility] [place], [place] [phone] Nurse, Lance [address] [facility] [address] [place], [place] [address] 02/08/2024 1:00 PM EDT Office Visit Home Dialysis [facility] [address] [place], [place] [address] [facility] [address] [place] [address] 02/10/2024 8:00 AM EDT Treatment Home Dialysis [facility] [address] [place], [place] [phone] Nurse, Lance [address] [facility] [address] [place], [place] [address] 02/12/2024 1:00 PM EDT Nurse Only Home Dialysis [facility] [place], [place] [phone] Nurse, Lance [address] [facility] [address] [place], [place] [address] 03/05/2024 1:00 PM EDT Office Visit Home Dialysis [facility] [place], [place] [address] [facility] [place] [address] [place] [facility] [place] [address] 03/11/2024 8:00 AM EDT Treatment Home Dialysis [facility] [address] [place], [place] [phone] Nurse, Lance [address] [place], [place] [address] 03/11/2024 1:00 PM EDT Nurse Only Home Dialysis [facility] [place], [place] [phone] Nurse, Lance [address] [facility] [address] [place], [place] [address] 03/19/2024 1:00 PM EDT Office Visit Home Dialysis [facility] [place], [place] [address] Mdc, Peritoneal Dialysis [address] [place] [address] 04/11/2024 8:00 AM EDT Treatment Home Dialysis [facility] [address] [place], [place] [phone] Nurse, [employer] [address] [place], [place] [address] 04/11/2024 1:00 PM EDT Nurse Only Home Dialysis [facility] [place], [place] [phone] Nurse, Celect [address] [place], [place] 04/29/2024 1:00 PM EDT Office Visit Home Dialysis [facility] [address] [place], [place] [address] [facility] [place] [address] [place], [place] [address] 05/12/2024 8:00 AM EDT Treatment Home Dialysis [facility] [address] [place], [place] [phone] Nurse, Celect [address] [place], [place] [address] 05/14/2024 1:00 PM EDT Nurse Only Home Dialysis [facility] [place], [place] [phone] Nurse, Celect [address] [place], [place] [address] 06/07/2024 1:00 PM EDT Office Visit Home Dialysis [facility] [address] [place], [place] [address] [facility] [place] [address] [place] [address] 06/11/2024 8:00 AM EDT Treatment Home Dialysis [facility] [address] [place], [place] [address] Nurse, Lance Lopez [address] [place], [place] [address] 06/11/2024 1:00 PM EDT Nurse Only Home Dialysis [facility] [address] [place], [place] [address] Nurse, Lancebaltazar Lopez [address] [place], [place] [address] 06/25/2024 1:00 PM EDT Office Visit Home Dialysis [facility] [address] [place], [place] [address] [facility] [place] [address] [facility], [place] [address] 07/12/2024 8:00 AM EDT Treatment Home Dialysis [facility] [address] [facility] [address] [place], [place] [phone] Nurse, Lancebaltazar Lopez [address] [place], [place] [address] 07/12/2024 1:00 PM EDT Nurse Only Home Dialysis [facility] [place], [place] [address] Nurse, Lancebaltazar Lopez [address] [place], [place] [address] 07/22/2024 1:00 PM EST Office Visit Home Dialysis [facility] [address] [place], [place] [address] [facility] [place] [address] [place] [facility] [place] [address] 08/11/2024 8:00 AM EST Treatment Home Dialysis [facility] [address] [place], [place] [address] Nurse, [address] [place] [address] 08/12/2024 1:00 PM EST Nurse Only Home Dialysis [facility] [address] [place] [address] [phone] Nurse, [address] [place] [address] 08/20/2024 1:00 PM EST Office Visit Home Dialysis [facility] [address] [place] [phone] Mdc, Peritoneal Dialysis [address] [...] LAB BLOOD ORDERAB LES [facility] [address] [place] [address] documented in this encounter Visit Diagnoses Diagnosis [...] Advance Directives occurred with: Patient Care Teams Other Sports Coach Or Instructor Relationship Specialty Start Date End Date Tomer Garner MD [address] [place] [address] PCP - General 09/19/02 documented as of this encounter
--- OUTSIDE RECORDS SUMMARY | 2024-03-17 14:32 | External Medical Summary ---
Author Name Unknown Address Unknown Organization K01:[facility] [address] [place] [address] Laboratory Report Ordering Provider Test Date Status MRAI BOB 10/17/2023 12:42:23 Final Observation Date Value Abnormality Reference (Units ) Status Ferritin 10/17/2023 12:42:23 1119 Above high normal 30 -400 (ng/mL) Final Performing Location [facility] [address] [place] [address]
--- OUTSIDE RECORDS SUMMARY | 2024-03-17 14:32 | External Medical Summary ---
Author Name Unknown Address Unknown Organization : Laboratory Report Ordering Provider Test Date Status ANGELA DIAS 10/17/2023 12:42:23 Final Observation Date Value Abnormality Reference (Units ) Status REFERENCE LAB SCANNED REPORT 10/17/2023 12:42:23 See Scanned Report Final Performing Location
--- OUTSIDE RECORDS SUMMARY | 2024-03-17 14:32 | External Medical Summary ---
Author Name Unknown Address Unknown Organization [id number]:[facility] [place] [address] [place] [address] [place] [address] Laboratory Report Ordering Provider Test Date Status MARI BOB 10/17/2023 12:42:23 Final Observation Date Value Abnormality Reference (Units ) Status BUN 10/17/2023 12:42:23 92 Above high normal 6-20 (mg/dL) Final Creatinine 10/17/2023 12:42:23 29.8 Above high normal 0.6-1.2 (mg/dL) Final Glomerular filtration rate/1.73 sq M.predicted [Volume Rate/Area] in Serum, Plasma or Blood by Creatinine-based formula (CKD-EPI) 10/17/2023 12:42:23 2 Below low normal >=60 (mL/min) Final eGFR is calculated based on the CKD-EPI 2020 equation SODIUM 10/17/2023 12:42:23 145 135-146 (m mol/L) Final Potassium 10/17/2023 12:42:23 4.0 3.5-5.1 (m mol/L) Final Cl 10/17/2023 12:42:23 95 Below low normal 98- 107 (mmol/L) Final CO2 10/17/2023 12:42:23 18 Below low normal 22- 32 (mmol/L) Final Anion gap 10/17/2023 12:42:23 32 Above high normal 7- 15 (mmol/L) Final Glucose 10/17/2023 12:42:23 119 70-120 (mg /dL) Final Calcium 10/17/2023 12:42:23 8.8 8.4-10.2 ( mg/dL) Final Performing Location [facility] [place] [address] [place] [address]
--- OUTSIDE RECORDS SUMMARY | 2024-03-17 14:32 | External Medical Summary ---
Author Name Unknown Address Unknown Organization [id number]:[facility]ATORY [facility] [place] - [address] [place] [address] Laboratory Report Ordering Provider Test Date Status MARI BOB 10/17/2023 12:42:23 Final Observation Date Value Abnormality Reference (Units ) Status Parathyrin.intact [Mass/volume] in Serum or Plasma 10/17/2023 12:42:23 983 Above high normal 15-65 (pg/mL) Final Performing Location LAB[facility]ATORY [facility] [place] - [address] [place] [address]
--- OUTSIDE RECORDS SUMMARY | 2024-03-17 14:32 | External Medical Summary ---
Author Name Unknown Address Unknown Organization [id number]:LABORATORY [facility] [place] - [address] [place] [address] Laboratory Report Ordering Provider Test Date Status LISBETHGUERRA 10/17/2023 12:42:23 Final Observation Date Value Abnormality Reference (Units ) Status Albumin 10/17/2023 12:42:23 4.6 3.8-5.0 (g/dL) Final Calcium 10/17/2023 12:42:23 8.8 8.4-10.2 (mg/dL) Final Phosphate 10/17/2023 12:42:23 17.7 Above high normal 2.5-4.8 (mg/dL) Final Calcium [Moles/volume] corrected for albumin in Serum or Plasma 10/17/2023 12:42:23 8.8 (mg/dL) Final Calcium-phosphorus product panel - Serum or Plasma 10/17/2023 12:42:23 155.8 Final Performing Location LABORATORY [facility] [place] - [facility] [place] [address]
--- OUTSIDE RECORDS SUMMARY | 2024-03-17 14:32 | External Medical Summary ---
Author Name Unknown Address Unknown Organization K01:[facility] [place] [address] [place] [address] Laboratory Report Ordering Provider Test Date Status MARI BOB 10/17/2023 12:42:23 Final Study includes results for T ransferrin Saturation, Binding Capacity, and Iron. Observation Date Value Abnormality Reference (Units ) Status Iron 10/17/2023 12:42:23 213 Above high normal 45-176 (ug/dL) Final Iron-binding capacity 10/17/2023 12:42:23 233 Below low normal 250-425 (ug/dL) Final Transferrin Sat % 10/17/2023 12:42:23 91 Above high normal 15-55 (%) Final Performing Location [facility] [place] [address] [place] [address]
--- OUTSIDE RECORDS SUMMARY | 2024-03-17 14:32 | External Medical Summary ---
Author Name Unknown Address Unknown Organization K01:[facility] [place] - [address] [place] [address] Laboratory Report Ordering Provider Test Date Status MARI BOB 10/17/2023 12:42:23 Final Observation Date Value Abnormality Reference (Units ) Status ALT (Alanine aminotransferase) 10/17/2023 12:42:23 18 10-50 (U/L) Final Performing Location [facility] - [address] [place] [address]
--- OUTSIDE RECORDS SUMMARY | 2024-03-17 14:32 | External Medical Summary | Summary of Care ---
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 chronic kidney disease, not on chronic dialysis (HCC) Procedures [place] EPOETIN PITER, NON-ESRD [place] EPOETIN PITER, 100 UNITS ESRD Yonny Saldivar MD [address] [place] [address] [address] [place] [address] Referral ID Status Reason Start Date Expiration Date Visits Re quested Visits Authorized [id number] Closed 08/22/2023 02/21/2024 999 0 Encounter Details [...] (Oral) 1981,04/11 Pneumococcal Conjugate Vacci ne, 20-valent ([id number]) 11/17/2022 Pneumococcal Polysaccharide PPV23 (Pneumovax) 02/03/2004 Seasonal [...] [address] [place] [address] [facility], Peritoneal Dialysis [address] [place] [id number] 11/10/2023 8:00 AM EST Treatment Home Dialysis [address] [place] [address] Nurse, Lance [address] [place], [place] [address] 11/10/2023 1:00 PM EST Nurse Only Home Dialysis [address] [place], [place] [phone] Nurse, Lance [address] [facility] [address] [place], [place] [address] 12/04/2023 1:00 PM EDT Office Visit Home Dialysis [address] [place], [place] [address] [facility] [place], Peritoneal Dialysis [address] [place] [address] 12/11/2023 8:00 AM EDT Treatment Home Dialysis [facility] [place], [place] [phone] Nurse, Lance [address] [place] [address] 12/11/2023 1:00 PM EDT Nurse Only Home Dialysis [address] [place] [address] Nurse, Lance [address] [place] [address] 12/26/2023 1:00 PM EDT Office Visit Home Dialysis [facility] [place], [place] [address] [facility] [place], Peritoneal Dialysis [address] [place] [place] [address] 01/10/2024 8:00 AM EDT Treatment Home Dialysis [facility] [address] [place], [place] [phone] Nurse, Lance [address] [place], [place] [address] 01/10/2024 1:00 PM EDT Nurse Only Home Dialysis [facility] [place], [place] [phone] Nurse, Lance [address] [facility] [address] [place], [place] [address] 02/08/2024 1:00 PM EDT Office Visit Home Dialysis [address] [place], [place] [address] [facility] [place], Peritoneal Dialysis [address] [place] [address] 02/10/2024 8:00 AM EDT Treatment Home Dialysis [facility] [address] [place], [place] [phone] Nurse, Lance [address] [facility] [address] [place], [place] [address] 02/12/2024 1:00 PM EDT Nurse Only Home Dialysis [facility] [place], [place] [phone] Nurse, Lance [address] [facility] [address] [place], [place] [address] 03/05/2024 1:00 PM EDT Office Visit Home Dialysis [facility] [place], [place] [address] [facility] [place], Peritoneal Dialysis [address] [facility] [place] [address] 03/11/2024 8:00 AM EDT Treatment Home Dialysis [facility] [address] [place], [place] [phone] Nurse, [address] [place], [place] [address] 03/11/2024 1:00 PM EDT Nurse Only Home Dialysis [facility] [address] [place], [place] [phone] Nurse, Lance [address] [facility] [address] [place], [place] [address] 03/19/2024 1:00 PM EDT Office Visit Home Dialysis [facility] [place], [place] [address] [facility], Peritoneal Dialysis [address] [place] [address] 04/11/2024 8:00 AM EDT Treatment Home Dialysis [facility] [address] [place], [place] [phone] Nurse, Lance[employer] [address] [place], [place] [address] 04/11/2024 1:00 PM EDT Nurse Only Home Dialysis [facility] [place], [place] [phone] Nurse, [employer] [address] [place], [place] 04/29/2024 1:00 PM EDT Office Visit Home Dialysis [facility] [place], [place] [address] [facility] [place], Peritoneal Dialysis [address] [place], [place] [address] 05/12/2024 8:00 AM EDT Treatment Home Dialysis [facility] [address] [place], [place] [phone] Nurse, [employer] [address] [place], [place] [address] 05/14/2024 1:00 PM EDT Nurse Only Home Dialysis [facility] [place], [place] [phone] Nurse, [employer] [address] [place], [place] [address] 06/07/2024 1:00 PM EDT Office Visit Home Dialysis [facility] [address] [place], [place] [address] [facility] [place], Peritoneal Dialysis [address] [place] [address] 06/11/2024 8:00 AM EDT Treatment Home Dialysis [facility] [address] [place], [place] [address] Nurse, Lance [address] [place], [place] [address] 06/11/2024 1:00 PM EDT Nurse Only Home Dialysis [address] [place], [place] [address] Nurse, Lancebaltazar Lopez [address] [place], [place] [address] 06/25/2024 1:00 PM EDT Office Visit Home Dialysis [facility] [place], [place] [address] [facility] [place], Peritoneal Dialysis [address] [facility] [place], [place] [address] 07/12/2024 8:00 AM EDT Treatment Home Dialysis [facility] [address] [place], [place] [phone] Nurse, Lancebaltazar Lopez [address] [place], [place] [address] 07/12/2024 1:00 PM EDT Nurse Only Home Dialysis [facility] [place], [place] [address] Nurse, Lancebaltazar Lopez [address] [place], [place] [address] 07/22/2024 1:00 PM EST Office Visit Home Dialysis [facility] [address] [place], [place] [address] [facility] [place], Peritoneal Dialysis [address] [facility] [place] [address] 08/11/2024 8:00 AM EST Treatment Home Dialysis [facility] [address] [place], [place] [address] Nurse, [address] [facility] [place] [address] 08/12/2024 1:00 PM EST Nurse Only Home Dialysis [facility] [address] [place] [address] [phone] Nurse, [address] [facility] [place] [address] 08/20/2024 1:00 PM EST Office Visit Home Dialysis [facility] [address] [place] [address] [address] [phone] [facility], Peritoneal Dialysis [address] [...] LAB BLOOD ORDERAB LES [facility] [address] [place] [address] documented in this encounter Visit Diagnoses Diagnosis [...] Advance Directives occurred with: Patient Care Teams Fatback Trimmer Relationship Specialty Start Date End Date Tomer Garner MD [address] [facility] [place] [address] PCP - General 09/19/02 documented as of this encounter
--- OUTSIDE RECORDS SUMMARY | 2024-03-17 14:32 | External Medical Summary | Summary of Care ---
Author Name Unknown Organization [facility] Address [address] [place] [address] Phone [phone] Care Team Providers Care Civil Drafter Name Role Phone Tomer Garner MD Primary Care Provider [phone] Reason for Visit * Reason Comments Hemodialysis * Episode Based Medications (Routine) - Closed Specialty Diagnoses / Procedures Referred By Contac t Referred To Contact Diagnoses ESRD on peritoneal dialysis (HCC) 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 chronic kidney disease, not on chronic dialysis (HCC) Procedures VA EPOETIN PITER, NON-ESRD VA EPOETIN PITER, 100 UNITS ESRD Yonny Saldivar MD [address] [place] [address] [place] [address] Referral ID Status Reason Start Date Expiration Date Visits Re quested Visits Authorized [id number] Closed 08/22/2023 02/21/2024 999 0 Encounter Details [...] (Oral) 1981,04/11 Pneumococcal Conjugate Vacci ne, 20-valent ([id number]) 11/17/2022 Pneumococcal Polysaccharide PPV23 (Pneumovax) 02/03/2004 Seasonal [...] [address] [place] [address] [facility], Peritoneal Dialysis [address] [place] [id number] 11/10/2023 8:00 AM EST Treatment Home Dialysis [facility] [address] [place] [address] Nurse, Lance [address] [place], [place] [address] 11/10/2023 1:00 PM EST Nurse Only Home Dialysis [facility] [place], [place] [phone] Nurse, [address] [facility] [address] [place], [place] [address] 12/04/2023 1:00 PM EDT Office Visit Home Dialysis [facility] [place], [place] [address] [facility] [place], Peritoneal Dialysis [address] [place] [address] 12/11/2023 8:00 AM EDT Treatment Home Dialysis [facility] [address] [place], [place] [phone] Nurse, [address] [place] [address] 12/11/2023 1:00 PM EDT Nurse Only Home Dialysis [facility] [place] [address] Nurse, [address] [place] [address] 12/26/2023 1:00 PM EDT Office Visit Home Dialysis [facility] [place], [place] [address] [facility] [place], Peritoneal Dialysis [address] [place] [address] 01/10/2024 8:00 AM EDT Treatment Home Dialysis [address] [place], [place] [phone] Nurse, [address] [place], [place] [address] 01/10/2024 1:00 PM EDT Nurse Only Home Dialysis [facility] [place], [place] [phone] Nurse, [address] [facility] [address] [place], [place] [address] 02/08/2024 1:00 PM EDT Office Visit Home Dialysis [address] [place], [place] [address] [facility] [place], Peritoneal Dialysis [address] [place] [address] 02/10/2024 8:00 AM EDT Treatment Home Dialysis [facility] [place], [place] [phone] Nurse, Lance [address] [facility] [address] [place], [place] [address] 02/12/2024 1:00 PM EDT Nurse Only Home Dialysis [address] [place], [place] [phone] Nurse, [address] [facility] [address] [place], [place] [address] 03/05/2024 1:00 PM EDT Office Visit Home Dialysis [facility] [place], [place] [address] [facility] [place], Peritoneal Dialysis [address] [place] [facility] [place] [address] 03/11/2024 8:00 AM EDT Treatment Home Dialysis [facility] [place], [place] [phone] Nurse, [address] [place], [place] [address] 03/11/2024 1:00 PM EDT Nurse Only Home Dialysis [address] [place], [place] [phone] Nurse, Lance [address] [facility] [address] [place], [place] [address] 03/19/2024 1:00 PM EDT Office Visit Home Dialysis [address] [place], [place] [address] [facility], Peritoneal Dialysis [address] [place] [address] 04/11/2024 8:00 AM EDT Treatment Home Dialysis [facility] [place], [place] [phone] Nurse, Lance[employer] [address] [place], [place] [address] 04/11/2024 1:00 PM EDT Nurse Only Home Dialysis [facility] [place], [place] [phone] Nurse, [address] [place], [place] 04/29/2024 1:00 PM EDT Office Visit Home Dialysis [facility] [place], [place] [address] [facility] [place], Peritoneal Dialysis [address] [place], [place] [address] 05/12/2024 8:00 AM EDT Treatment Home Dialysis [facility] [place], [place] [phone] Nurse, [address] [place], [place] [address] 05/14/2024 1:00 PM EDT Nurse Only Home Dialysis [address] [place], [place] [phone] Nurse, [address] [place], [place] [address] 06/07/2024 1:00 PM EDT Office Visit Home Dialysis [address] [place], [place] [address] [facility] [place], Peritoneal Dialysis [address] [place] [address] 06/11/2024 8:00 AM EDT Treatment Home Dialysis [facility] [place], [place] [address] Nurse, Lance [address] [place], [place] [address] 06/11/2024 1:00 PM EDT Nurse Only Home Dialysis [facility] [place], [place] [address] Nurse, Lancebaltazar Lopez [address] [place], [place] [address] 06/25/2024 1:00 PM EDT Office Visit Home Dialysis [facility] [place], [place] [address] [facility] [place], Peritoneal Dialysis [address] [facility], [place] [address] 07/12/2024 8:00 AM EDT Treatment Home Dialysis [facility] [place], [place] [phone] Nurse, Lancebaltazar Lopez [address] [place], [place] [address] 07/12/2024 1:00 PM EDT Nurse Only Home Dialysis [facility] [place], [place] [address] Nurse, Lnacebaltazar Lopez [address] [place], [place] [address] 07/22/2024 1:00 PM EST Office Visit Home Dialysis [facility] [place], [place] [address] [facility] [place], Peritoneal Dialysis [address] [place] [address] 08/11/2024 8:00 AM EST Treatment Home Dialysis [facility] [place], [place] [address] Nurse, [address] [place] [address] 08/12/2024 1:00 PM EST Nurse Only Home Dialysis [facility] [place] [address] [address] [phone] Nurse, [address] [place] [address] 08/20/2024 1:00 PM EST Office Visit Home Dialysis [facility] [address] [place] [address] [phone] [facility], Peritoneal Dialysis [address] [...] LAB BLOOD ORDERAB LES [facility] [address] [place] [address] documented in this encounter Visit Diagnoses Diagnosis [...] Advance Directives occurred with: Patient Care Teams Civil Drafter Relationship Specialty Start Date End Date Tomer Garner MD [address] [facility] [address] PCP - General 09/19/02 documented as of this encounter
--- OUTSIDE RECORDS SUMMARY | 2024-03-17 14:32 | External Medical Summary | Summary of Care ---
Author Name Unknown Organization [facility] Address [address] [facility] [place] [address] Phone [phone] Care Team Providers Care Painter Assistant Name Role Phone Tomer Garner MD Primary Care Provider Reason for Visit * Reason Comments Advice Encounter Details Date Type Department Care Team (Late st Contact Info) Description 09/27/2023 Facs Teacher Home Dialysis [facility] [place] [address] [place] [address] Nancy Tolbert, GYPSUM CALCINER Allergies No known active allergiesdocumented as of [...] with bandage 15 g 2 09/08/2023 Active documented as of this encounter (statuses [...] (Oral) 1981,04/11 Pneumococcal Conjugate Vacci ne, 20-valent ([id number]) 11/17/2022 Seasonal Influenza, PF, 6 M & [...] Progress Notes * Nancy Tolbert LSW - 10/16/2023 1:45 PM EST SOCIAL WORK MONTHLY PD CLINIC NOTE Gender: male Age: [age] year old Mental Health Changes: None reported. Comments: Patient presents and responds appropriately throughout clinic appointments. Patient is consistently pleasant and easily engages with casualty underwriter and staff. Patient denies any symptoms of depression/anxiety. No concerns or changes noted. Activities of Daily Living Changes: None reported. Comments: Patient continues to reside independently at home with his parents. Support System Changes: None reported. Comments: Patient continues to have an intact support system. Aircraft Mechanic will continue to follow and will remain available to address psychosocial issues as needed in the clinic setting. KADEN Delaney Outpatient Senior Clinical Data Manager documented in this encounter Plan of Treatment Upcoming Encounters Date Type Department Care Team (Late st Contact Info) Description 09/28/2023 Plan of Care Documentation Home Dialysis [address], [place], [place] [id number] 11/03/2023 1:00 PM EST Office Visit Home Dialysis [address] [phone] [facility] [address] [place] [address] 11/10/2023 8:00 AM EST Treatment Home Dialysis [address], [place] [address] Nurse, [employer] [facility] [address] [place] [address] 11/10/2023 1:00 PM EST Nurse Only Home Dialysis [address] [place] [address] Nurse, [employer] [facility] [address] [place] [address] 12/04/2023 1:00 PM EDT Office Visit Home Dialysis [facility] [place] [address] [facility] [address] [place] [address] 12/11/2023 8:00 AM EDT Treatment Home Dialysis [facility] [place] [address] Nurse, [address] [employer] [address] [place] [address] 12/11/2023 1:00 PM EDT Nurse Only Home Dialysis [address] [place], [place] [address] Nurse, [address] [employer] [address] [place] [address] 12/26/2023 1:00 PM EDT Office Visit Home Dialysis [address] [place] [address] [facility] [address] [place] [address] 01/10/2024 8:00 AM EDT Treatment Home Dialysis [address] [place], [place] [address] Nurse, [address] [employer] [address] [place] [address] 01/10/2024 1:00 PM EDT Nurse Only Home Dialysis [address] [place] [address] Nurse, [address] [employer] [address] [place] [address] 02/08/2024 1:00 PM EDT Office Visit Home Dialysis [address] [place] [address] [facility] [address] [place] [address] 02/10/2024 8:00 AM EDT Treatment Home Dialysis [facility] [place] [address] Nurse, [address] [employer] [address] [place] [address] 02/12/2024 1:00 PM EDT Nurse Only Home Dialysis [address] [place], [place] [address] Nurse, [address] [employer] [address] [place], [place] [address] 03/05/2024 1:00 PM EDT Office Visit Home Dialysis [facility] [place], [place] [address] [facility] [address] [place] [address] 03/11/2024 8:00 AM EDT Treatment Home Dialysis [facility] [place], [place] [phone] Nurse, [address] [employer] [address] [place], [place] [address] 03/11/2024 1:00 PM EDT Nurse Only Home Dialysis [facility] [place], [place] [phone] Nurse, [address] [employer] [address] [place], [place] [address] 03/19/2024 1:00 PM EDT Office Visit Home Dialysis [facility] [place], [place] [address] [facility] [place] [address] [place] [address] 04/11/2024 8:00 AM EDT Treatment Home Dialysis [facility], [place] [phone] Nurse, [address] [employer] [address] [place], [place] [address] 04/11/2024 1:00 PM EDT Nurse Only Home Dialysis [facility] [place], [place] [phone] Nurse, [address] [employer] [address] [place], [place] [address] 04/29/2024 1:00 PM EDT Office Visit Home Dialysis [facility] [place], [place] [address] [facility] [place] [address] [place] [address] 05/12/2024 8:00 AM EDT Treatment Home Dialysis [facility] [place], [place] [address] Nurse, [employer] [facility] [address] [place], [place] [address] 05/14/2024 1:00 PM EDT Nurse Only Home Dialysis [facility] [place], [place] [address] Nurse, Lance [employer] [facility] [address] [place], [place] [address] 06/07/2024 1:00 PM EDT Office Visit Home Dialysis [facility] [place], [place] [address] [facility] [place] [address] [place] [facility] [address] 06/11/2024 8:00 AM EDT Treatment Home Dialysis [facility] [place], [place] [address] Nurse, [employer] [facility] [address] [place], [place] [address] 06/11/2024 1:00 PM EDT Nurse Only Home Dialysis [facility] [place], [place] [address] Nurse, [employer] [facility] [address] [place], [place] [address] 06/25/2024 1:00 PM EDT Office Visit Home Dialysis [facility] [address] [place], [place] [address] [facility] [place] [address] [address] 07/12/2024 8:00 AM EDT Treatment Home Dialysis [facility] [place], [place] [address] Nurse, [place] Jessica Bee [address] [place] [address] 07/12/2024 1:00 PM EDT Nurse Only Home Dialysis [facility] [place], [place] [address] Nurse, Lance [facility] [address] [place], [place] [address] 07/22/2024 1:00 PM EST Office Visit Home Dialysis [facility] [address] [phone] [facility] [address] [facility] [place] [address] 08/11/2024 8:00 AM EST Treatment Home Dialysis [facility] [address] [place], [place] [address] Nurse, Lance Jessica Bee [address] [place], [place] [address] 08/12/2024 1:00 PM EST Nurse Only Home Dialysis [facility] [place], [place] [address] Nurse, [address] [facility] [address] [place], [place] [address] 08/20/2024 1:00 PM EST Office Visit Home Dialysis [facility] [address] [place], [place] [address] [facility] [place] [address] [facility] [place] [address] Health Maintenance Due Date Last Done Comments [...] Advance Directives occurred with: Patient Care Teams Painter Assistant Relationship Specialty Start Date End Date Tomer Garner MD [address] [place] [address] PCP - General 09/19/02 documented as of this encounter
--- OUTSIDE RECORDS SUMMARY | 2024-03-17 14:32 | External Medical Summary | Summary of Care ---
Author Name Unknown Organization [facility] Address [address] [place] [address] Phone [phone] Care Team Providers Care Master [place] Name Role Phone Tomer Garner MD Primary Care Provider Reason for Visit * Reason Comments Hemodialysis * Episode Based Medications (Routine) - Closed Specialty Diagnoses / Procedures Referred By Contac t Referred To Contact Diagnoses ESRD on peritoneal dialysis (HCC) 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 chronic kidney disease, not on chronic dialysis (HCC) Procedures MT EPOETIN PITER, NON-ESRD MT EPOETIN PITER, 100 UNITS ESRD Yonny Saldivar MD [address] [place] [address] [address] [place] [address] Referral ID Status Reason Start Date Expiration Date Visits Re quested Visits Authorized [id number] Closed 08/22/2023 02/21/2024 999 0 Encounter Details [...] (Oral) 1981,04/11 Pneumococcal Conjugate Vacci ne, 20-valent ([id number]) 11/17/2022 Pneumococcal Polysaccharide PPV23 (Pneumovax) 02/03/2004 Seasonal [...] [address] [place] [address] [facility], Peritoneal Dialysis [address] [place] [id number] 11/10/2023 8:00 AM EST Treatment Home Dialysis [address] [address] [place] [address] Nurse, [address] [facility] [address] [place], [place] [address] 11/10/2023 1:00 PM EST Nurse Only Home Dialysis [address] [place], [place] [phone] Nurse, [address] [employer] [address] [place], [place] [address] 12/04/2023 1:00 PM EDT Office Visit Home Dialysis [address] [address] [place], [place] [address] [facility] Dialysis [address] [place] [address] 12/11/2023 8:00 AM EDT Treatment Home Dialysis [facility] [address] [place], [place] [phone] Nurse, [address] [facility] [address] [place] [address] 12/11/2023 1:00 PM EDT Nurse Only Home Dialysis [address] [place] [address] Nurse, [address] [facility] [address] [place] [address] 12/26/2023 1:00 PM EDT Office Visit Home Dialysis [address] [place], [place] [address] [facility] [place] Dialysis [address] [place] [address] 01/10/2024 8:00 AM EDT Treatment Home Dialysis Clau [address] [place], [place] [phone] Nurse, [address] [employer] [address] [place], [place] [address] 01/10/2024 1:00 PM EDT Nurse Only Home Dialysis [address] [place], [place] [phone] Nurse, [address] [employer] [address] [place], [place] [address] 02/08/2024 1:00 PM EDT Office Visit Home Dialysis [facility] [address], [place] [address] [facility] Peritoneal Dialysis [address] [place] [address] 02/10/2024 8:00 AM EDT Treatment Home Dialysis [address] [place], [place] [phone] Nurse, [address] [employer] [address] [place], [place] [address] 02/12/2024 1:00 PM EDT Nurse Only Home Dialysis [address] [place], [place] [phone] Nurse, [address] [employer] [address] [place], [place] [address] 03/05/2024 1:00 PM EDT Office Visit Home Dialysis [address]au [address] [place], [place] [address] [facility] Peritoneal Dialysis [address] [place] [facility] [place] [address] 03/11/2024 8:00 AM EDT Treatment Home Dialysis Clau [address] [place], [place] [phone] Nurse, [address] [employer] [address] [place], [place] [address] 03/11/2024 1:00 PM EDT Nurse Only Home Dialysis Cl[address] [place], [place] [phone] Nurse, [address] [employer] [address] [place], [place] [address] 03/19/2024 1:00 PM EDT Office Visit Home Dialysis [address] [place], [place] [address] [facility], Peritoneal Dialysis [address] [place] [address] 04/11/2024 8:00 AM EDT Treatment Home Dialysis [address], [place] [phone] Nurse, [employer] [address], [place] [address] 04/11/2024 1:00 PM EDT Nurse Only Home Dialysis [address] [place], [place] [phone] Nurse, [email or web address] [place] [address] [place], [place] 04/29/2024 1:00 PM EDT Office Visit Home Dialysis [address], [place] [address] [facility] Peritoneal Dialysis [address] [place], [place] [address] 05/12/2024 8:00 AM EDT Treatment Home Dialysis [address], [place] [phone] Nurse, [email or web address] [address] [address], [place] [address] 05/14/2024 1:00 PM EDT Nurse Only Home Dialysis [address] [place], [place] [phone] Nurse, [email or web address] [place] [address] [place], [place] [address] 06/07/2024 1:00 PM EDT Office Visit Home Dialysis [address], [place] [address] [facility] Peritoneal Dialysis [address] [place] [address] 06/11/2024 8:00 AM EDT Treatment Home Dialysis [address] [place], [place] [address] Nurse, [address] [facility] [address] [place], [place] [address] 06/11/2024 1:00 PM EDT Nurse Only Home Dialysis [address] [place], [place] [address] Nurse, Lancebaltazar Lopez [facility] [address] [place], [place] [address] 06/25/2024 1:00 PM EDT Office Visit Home Dialysis [address], [place] [address] [facility] Peritoneal Dialysis [address] [facility], [place] [address] 07/12/2024 8:00 AM EDT Treatment Home Dialysis [address] [place], [place] [phone] Nurse, Lancebaltazar Lopez [facility] [address] [place], [place] [address] 07/12/2024 1:00 PM EDT Nurse Only Home Dialysis [address] [place], [place] [address] Nurse, Lancebal[address] Lopez [facility] [address] [place], [place] [address] 07/22/2024 1:00 PM EST Office Visit Home Dialysis [address] [place], [place] [address] [facility] Peritoneal Dialysis [address] [place] [facility] [place] [address] 08/11/2024 8:00 AM EST Treatment Home Dialysis [address] [place], [place] [address] Nurse, [address] [employer] [address] [place] [address] 08/12/2024 1:00 PM EST Nurse Only Home Dialysis [facility] [address] [phone] Nurse, [address] [employer] [address] [place] [address] 08/20/2024 1:00 PM EST Office Visit Home Dialysis [facility] [address] [phone] [facility], Peritoneal Dialysis [address] [...] 6:01 AM EST 08/15/2023 6:01 AM EST Tomre Daniel MD LAB BLOOD ORDER YAO [place]NACLE * (ABNORMAL) HGB (08/15/2023 6:01 AM EST) HGB 10.7(L) 14.0 - 16.8 g/dL 08/15/2023 7:44 AM EST LABORATORY [facility] Blood Blood sample taken from central line / Unknown Venipuncture / Unknown 08/15/2023 6:01 AM EST 08/15/2023 6:01 AM EST Yonny Saldivar MD LAB BLOOD ORDERAB [facility] [address] [place] [address] documented in this encounter Visit Diagnoses Diagnosis [...] Advance Directives occurred with: Patient Care Teams Master [place] Relationship Specialty Start Date End Date Tomer Garner MD [address] [place] [address] PCP - General 09/19/02 documented as of this encounter
--- OUTSIDE RECORDS SUMMARY | 2024-03-17 14:33 | External Medical Summary | Summary of Care ---
Author Name Unknown Organization [facility] Address [address] [place] [address] Phone [phone] Care Team Providers Care Cat Wagon Operator Name Role Phone Tomer Garner MD [...] UNITS ESRD Yonny Saldivar MD [address] [place] [address] [place] [address] Referral ID Status Reason Start Date Expiration Date Visits Re quested Visits Authorized [id number] Closed 08/22/2023 02/21/[phone] Encounter Details Date Type Department Care Team (Late st Contact Info) Description 08/19/2023 5:30 AM EST Treatment Hemodialysis [address] [place] [address] [id number] ESRD (end stage renal disease) (HCC)*; Anemia of chronic renal failure, stage 5 (HCC); Anemia in chronic kidney disease, on chronic dialysis (HCC); Anemia in chronic renal disease Allergies No known active allergiesdocumented as of this encounter (statuses as of 10/13/2023) Medications Medication Sig Dispensed Refills Start Date [...] Severe. 10 Tablet 0 05/22/2023 3 Discontinued documented as of this encounter (statuses as of 10/13/2023) Active Problems Problem Noted Date Diagnosed Date [...] as of this encounter (statuses as of 10/13/2023) Resolved Problems Problem Noted Date Diagnosed Date Resolved Date Dyslipidemia, goal to be determined 08/27/2009 11/21/2013 Overview: Per Lipid Taxonomy. PURE HYPERCHOLESTEROLEM 04/25/200208/11 Overview: Per Lipid Taxonomy. 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 1 Hemoptysis 04/11/1996 08/11/1996 Overview: ICD-10 update of inactive term documented as of this encounter (statuses as of 10/13/2023) Immunizations Name Administration Dates Next Due COVID-19 mRNA, LNP-s, No Pre serve, 2-Dose Series (Moderna) 11/23/2020,10/18/2020 DTP Vaccine 1981,1981,1981 HEP B - Hepatitis B (Dialysis/Immumocomp Pt) 05/02/2023,04/04/2023 MMR - Measles/Mumps/Rubella Vaccine 05/11/1982 OPV - Polio Virus Vaccine (Oral) 1981,04/11 Pneumococcal Conjugate Vacci ne, 20-valent (Deeonrc30) 11/17/2022 Pneumococcal Polysaccharide PPV23 (Pneumovax) 02/03/2004 Seasonal [...] Sign Reading Time Taken Comments Blood Pressure 111/66 08/19/2023 9:45 AM EST Pulse 74 08/19/2023 9:45 AM EST Temperature 36.5 C (97.7 F) 08/19/2023 9:45 AM ES T Respiratory Rate 16 08/19/2023 9:45 AM EST Oxygen Saturation - - Inhaled [...] Addendum Note - Mary Mabry OSA - 08/21/2023 7:15 AM ESTAddended by: MARY MABRY on: 08/21/2023 07:15 AM Modules accepted: Orders documented in this encounter Plan of Treatment Upcoming Encounters Date Type Department Care Team (Late st Contact Info) Description 09/28/2023 Plan of Care Documentation Home Dialysis [address] [phone] 11/03/2023 1:00 PM EST Office Visit Home Dialysis [address] [phone] Mdc, Peritoneal Dialysis [address] [facility] [place] [address] 11/10/2023 8:00 AM EST Treatment Home Dialysis [address] [phone] [facility] [address] [place] [address] 11/10/2023 1:00 PM EST Nurse Only Home Dialysis [address] [phone] Nurse, [address] [facility] [address], [place] [address] 12/04/2023 1:00 PM EDT Office Visit Home Dialysis [address], [place] [address] [facility] [address] [place] [address] 12/11/2023 8:00 AM EDT Treatment Home Dialysis [address], [place] [phone] Nurse, [address] [facility] [address], [place] 12/11/2023 1:00 PM EDT Nurse Only Home Dialysis [address], [place] [phone] Nurse, [address], [place] [address] 12/26/2023 1:00 PM EDT Office Visit Home Dialysis [address] [place] [address] [facility] [address] [place] [address] 01/10/2024 8:00 AM EDT Treatment Home Dialysis [address], [place] [phone] Nurse, [address] [employer] [address] [place] [address] 01/10/2024 1:00 PM EDT Nurse Only Home Dialysis [address], [place] [phone] Nurse, [address] [employer] [address] [place] [address] 02/08/2024 1:00 PM EDT Office Visit Home Dialysis [address], [place] [address] Mdc, Peritoneal Dialysis [address] [place] [address] 02/10/2024 8:00 AM EDT Treatment Home Dialysis [address] [place] [address] Nurse, [address] [employer] [address], [place] [address] 02/12/2024 1:00 PM EDT Nurse Only Home Dialysis [address], [place] [address] Nurse, [place] [employer] [address], [place] [address] 03/05/2024 1:00 PM EDT Office Visit Home Dialysis [address], [place] [address] [facility] [address] [place] [address] 03/11/2024 8:00 AM EDT Treatment Home Dialysis [address], [place] [phone] Nurse, [employer] [address] [place] [address] 03/11/2024 1:00 PM EDT Nurse Only Home Dialysis [address], [place] [address] Nurse, [place] [employer] [address] [place] [address] 03/19/2024 1:00 PM EDT Office Visit Home Dialysis [address], [place] [address] [facility] [address] [place] [address] 04/11/2024 8:00 AM EDT Treatment Home Dialysis [address] [place] [address] Nurse, [address] [employer] [address], [place] [address] 04/11/2024 1:00 PM EDT Nurse Only Home Dialysis [address], [place] [address] Nurse, [address] [employer] [address], [place] [address] 04/29/2024 1:00 PM EDT Office Visit Home Dialysis [address], [place] [address] [facility] [address] [place] [address] 05/12/2024 8:00 AM EDT Treatment Home Dialysis [address], [place] [address] Nurse, [address] [employer] [address], [place] [address] 05/14/2024 1:00 PM EDT Nurse Only Home Dialysis [address], [place] [address] Nurse, [address] [employer] [address] [place] [address] 06/07/2024 1:00 PM EDT Office Visit Home Dialysis [address], [place] [address] [facility] [place] [address] [place] [address] 06/11/2024 8:00 AM EDT Treatment Home Dialysis [address] [place] [address] Nurse, [address] [employer] [address] [place] [address] 06/11/2024 1:00 PM EDT Nurse Only Home Dialysis [address], [place] [address] Nurse, [address] [employer] [address], [place] [address] 06/25/2024 1:00 PM EDT Office Visit Home Dialysis [address], [place] [address] [facility] [address] [place] [address] 07/12/2024 8:00 AM EDT Treatment Home Dialysis [address], [place] [phone] Nurse, [address] [employer] [address], [place] [address] 07/12/2024 1:00 PM EDT Nurse Only Home Dialysis [address], [place] [phone] Nurse, [address] [employer] [address], [place] [address] 07/22/2024 1:00 PM EST Office Visit Home Dialysis [address], [place] [address] [facility] [address] [place] [address] 08/11/2024 8:00 AM EST Treatment Home Dialysis [address], [place] [address] Nurse, [address] [employer] [address] [place] [address] 08/12/2024 1:00 PM EST Nurse Only Home Dialysis [address], [place] [address] Nurse, [address] [employer] [address], [place] [address] 08/20/2024 1:00 PM EST Office Visit Home Dialysis [address] [place] [address] [facility] [address] [facility] [place] [phone] Health Maintenance Due Date Last Done Comments [...] Diagnosis Comments ADJUSTED CALCIUM PHOSPHORUS PRODUCT STAT 08/22/2023 6:26 AM EST ESRD (end stage renal disease) (HCC) Anemia of chronic renal failure, stage 5 (HCC) Anemia in chronic kidney disease, on chronic dialysis (HCC) HEPATITIS B SURFACE ANTIGEN STAT 08/22/2023 6:26 AM EST ESRD (end stage renal disease) (HCC) Anemia of chronic renal failure, stage 5 (HCC) Anemia in chronic kidney disease, on chronic dialysis (HCC) PRE DIALYSIS BUN STAT 08/22/2023 6:26 AM EST ESRD (end stage renal disease) (HCC) Anemia of chronic renal failure, stage 5 (HCC) Anemia in chronic kidney disease, on chronic dialysis (HCC) IRON SCREEN, INCLUDING TIBC STAT 08/22/2023 6:26 AM EST ESRD (end stage renal disease) (HCC) Anemia of chronic renal failure, stage 5 (HCC) Anemia in chronic kidney disease, on chronic dialysis (HCC) ALT STAT 08/22/2023 6:26 AM EST ESRD (end stage renal disease) (HCC) Anemia of chronic renal failure, stage 5 (HCC) Anemia in chronic kidney disease, on chronic dialysis (HCC) AST STAT 08/22/2023 6:26 AM EST ESRD (end stage renal disease) (HCC) Anemia of chronic renal failure, stage 5 (HCC) Anemia in chronic kidney disease, on chronic dialysis (HCC) SODIUM STAT 08/22/2023 6:26 AM EST ESRD (end stage renal disease) (HCC) Anemia of chronic renal failure, stage 5 (HCC) Anemia in chronic kidney disease, on chronic dialysis (HCC) POTASSIUM STAT 08/22/2023 6:26 AM EST ESRD (end stage renal disease) (HCC) Anemia of chronic renal failure, stage 5 (HCC) Anemia in chronic kidney disease, on chronic dialysis (HCC) ALKALINE PHOSPHATASE STAT 08/22/2023 6:26 AM EST ESRD (end stage renal disease) (HCC) Anemia of chronic renal failure, stage 5 (HCC) Anemia in chronic kidney disease, on chronic dialysis (HCC) CREATININE STAT 08/22/2023 6:26 AM EST ESRD (end stage renal disease) (HCC) Anemia of chronic renal failure, stage 5 (HCC) Anemia in chronic kidney disease, on chronic dialysis (HCC) CHLORIDE STAT 08/22/2023 6:26 AM EST ESRD (end stage renal disease) (HCC) Anemia of chronic renal failure, stage 5 (HCC) Anemia in chronic kidney disease, on chronic dialysis (HCC) CO2 STAT 08/22/2023 6:26 AM EST ESRD (end stage renal disease) (HCC) Anemia of chronic renal failure, stage 5 (HCC) Anemia in chronic kidney disease, on chronic dialysis (HCC) CBC STAT 08/22/2023 6:26 AM EST ESRD (end stage renal disease) (HCC) Anemia of chronic renal failure, stage 5 (HCC) Anemia in chronic kidney disease, on chronic dialysis (HCC) documented in this encounter Results * POST-DIALYSIS BUN BATTERY (08/22/2023 10:57 AM EST) Post Dialysis BUN 21 mg/dL 08/22/2023 2:04 PM EST [facility] Pre Dialysis Weight 126.5 kg 08/22/2023 2:04 PM EST [facility] Post Dialysis Weight 123.8 kg 08/22/2023 2:04 PM EST [facility] Kt/V 1.40 >=1.30 08/22/2023 2:04 PM EST [facility] nPNA 1.031 08/22/2023 2:04 PM EST [facility] Urea Reduction Ratio 70 % 08/22/2023 2:04 PM EST [facility] Ultra Filtration Volume 2.7 L 08/22/2023 2:04 PM EST [facility] Dialysis Session Length 4.0 hours 08/22/2023 2:04 PM EST [facility] Blood Venous blood specimen / Unknown Venipuncture / Unknown 08/22/2023 10:57 AM EST 08/22/2023 10:57 AM EST Yonny Saldivar MD LAB BLOOD ORDERAB LES [facility] [address] [place] [address] * ALKALINE PHOSPHATASE (08/22/2023 6:26 AM EST) Alkaline Phosphatase 68 35 - 130 U/L 08/22/2023 8:20 AM EST [facility] [facility] [place] Venous blood specimen / Unknown Venipuncture / Unknown 08/22/2023 6:26 AM EST 08/22/2023 6:26 AM EST Yonny Saldivar MD LAB BLOOD ORDERAB LES [facility] [place] [address] [place] [address] * HEPATITIS B SURFACE ANTIGEN (08/22/2023 6:26 AM EST) Pathologist [facility] Hepatitis B Surface Antigen Negative Negative 08/22/2023 10:07 AM EST [facility] [place] Blood Venous blood specimen / Unknown Venipuncture / Unknown 08/22/2023 6:26 AM EST 08/22/2023 6:26 AM EST Yonny Saldivar MD LAB BLOOD ORDERAB LES Performing Organization Address City/[facility]/ZIP Co de Phone Number LAB[facility]ATORY [facility] [place] [place] [address] [place] [address] * (ABNORMAL) IRON SCREEN, INCLUDING TIBC (08/22/2023 6:26 AM EST) Pathologist [facility] Iron 84 45 - 176 ug/dL 08/22/2023 8:20 AM EST [facility] [place] [place] Iron Binding Capacity 224(L) 250 - 425 ug/dL 08/22/2023 8:20 AM EST LABORATORY C Transferrin Saturation Percent 38 15 - 55 % 08/22/2023 8:20 AM EST [facility] [place] Blood Venous blood specimen / Unknown Venipuncture / Unknown 08/22/2023 6:26 AM EST 08/22/2023 6:26 AM EST Yonny Saldivar MD LAB BLOOD ORDERAB LES [facility] [address] [place] [address] * (ABNORMAL) CHLORIDE (08/22/2023 6:26 AM EST) Chloride 96(L) 98 - 107 mmol/L 08/22/2023 8:20 AM EST [facility] Blood Venous blood specimen / Unknown Venipuncture / Unknown 08/22/2023 6:26 AM EST 08/22/2023 6:26 AM EST Yonny Saldivar MD LAB BLOOD ORDERAB LES Performing Organization Address City/[facility] Co de Phone Number LABORATORY [facility] [address] [place] [address] * (ABNORMAL) ADJUSTED CALCIUM PHOSPHORUS PRODUCT (08/22/2023 6:26 AM EST) Albumin 4.2 3.8 - 5.0 g/dL 08/22/2023 8:20 AM EST [facility] Calcium 8.1(L) 8.4 - 10.2 mg/dL 08/22/2023 8:20 AM EST [facility] Phosphorus 7.8(H) 2.5 - 4.8 mg/dL 08/22/2023 8:20 AM EST [facility] Adjusted Calcium 8.1 mg/dL 08/22/2023 8:20 AM EST [facility] Calcium Phosphorus Product 63.2 08/22/2023 8:20 AM EST [facility] Blood Venous blood specimen / Unknown Venipuncture / Unknown 08/22/2023 6:26 AM EST 08/22/2023 6:26 AM EST Yonny Saldivar MD LAB BLOOD ORDERAB LES Performing Organization Address City/[facility] Co de Phone Number LAB[facility]ATORY [facility] [place] [address] [place] [address] * ALT (08/22/2023 6:26 AM EST) ALT 14 10 - 50 U/L 08/22/2023 8:20 AM EST [facility] Blood Venous blood specimen / Unknown Venipuncture / Unknown 08/22/2023 6:26 AM EST 08/22/2023 6:26 AM EST Yonny Saldivar MD LAB BLOOD ORDERAB LES Performing Organization Address City/[facility] Co de Phone Number LAB[facility]ATORY [facility] [place] [place] [address] [place] [address] * CO2 (08/22/2023 6:26 AM EST) CO2 25 22 - 32 mmol/L 08/22/2023 8:20 AM EST [facility] Blood Venous blood specimen / Unknown Venipuncture / Unknown 08/22/2023 6:26 AM EST 08/22/2023 6:26 AM EST Yonny Saldivar MD LAB BLOOD ORDERAB LES Performing Organization Address [facility] de Phone Number LABORATORY [facility] [place] [place] [address] [place] [address] * SODIUM (08/22/2023 6:26 AM EST) Sodium 139 135 - 146 mmol/L 08/22/2023 8:20 AM EST [facility] Blood Venous blood specimen / Unknown Venipuncture / Unknown 08/22/2023 6:26 AM EST 08/22/2023 6:26 AM EST Yonny Saldivar MD LAB BLOOD ORDERAB LES Performing Organization Address City/[facility] de Phone Number LABORATORY [facility] [place] [address] [place] [address] * PRE DIALYSIS BUN (08/22/2023 6:26 AM EST) Pre-Dialysis BUN 71 mg/dL 08/22/2023 8:11 AM EST [facility] Blood Venous blood specimen / Unknown Venipuncture / Unknown 08/22/2023 6:26 AM EST 08/22/2023 6:26 AM EST Yonny Saldivar MD LAB BLOOD ORDERAB LES Performing Organization Address City/[facility]/ZIP Co de Phone Number [facility] [address] [place] [address] * (ABNORMAL) CBC (08/22/2023 6:26 AM EST) [facility] WBC 8.44 4.00 - 10.80 K/uL 08/22/2023 8:11 AM EST [facility] RBC 3.23 4.50 - 5.25 M/uL 08/22/2023 8:11 AM EST [facility] HGB 9.7(L) 14.0 - 16.8 g/dL 08/22/2023 8:11 AM EST [facility] HCT 29.9(L) 40.0 - 48.4 % 08/22/2023 8:11 AM EST [facility] MCV 92.6 82.0 - 99.5 fL 08/22/2023 8:11 AM EST [facility] MCH 30.0 27.0 - 34.0 pg 08/22/2023 8:11 AM EST [facility] MCHC 32.4 32.0 - 36.0 g/dL 08/22/2023 8:11 AM EST [facility] RDW 13.3 11.5 - 15.5 % 08/22/2023 8:11 AM EST [facility] PLT 180 140 - 400 K/uL 08/22/2023 8:11 AM EST [facility] MPV 9.7 6.6 - 11.1 fL 08/22/2023 8:11 AM EST [facility] nRBCs 0 <=0 /100 WBCs 08/22/2023 8:11 AM EST [facility] Blood Venous blood specimen / Unknown Venipuncture / Unknown 08/22/2023 6:26 AM EST 08/22/2023 6:26 AM EST Yonny Saldivar MD LAB BLOOD ORDERAB LES [facility] [address] [place] [address] * POTASSIUM (08/22/2023 6:26 AM EST) Potassium 4.4 3.5 - 5.1 mmol/L 08/22/2023 8:20 AM EST [facility] [place] [place] Blood Venous blood specimen / Unknown Venipuncture / Unknown 08/22/2023 6:26 AM EST 08/22/2023 6:26 AM EST Yonny Saldivar MD LAB BLOOD ORDERAB LES LAB[facility] [place] [place] [address] [place] [address] * AST (08/22/2023 6:26 AM EST) AST 13 10 - 50 U/L 08/22/2023 8:20 AM EST LAB[facility]ORY [facility] [place] Blood Venous blood specimen / Unknown Venipuncture / Unknown 08/22/2023 6:26 AM EST 08/22/2023 6:26 AM EST Yonny Saldivar MD LAB BLOOD ORDERAB LES Performing Organization Address [facility] de Phone Number LAB[facility]ATORY [facility] [place] [address] [place] [address] * (ABNORMAL) CREATININE (08/22/2023 6:26 AM EST) Creatinine 14.8(H) 0.6 - 1.2 mg/dL 08/22/2023 8:20 AM EST [facility] Estimated Glomerular Filtration Rate 4(L) >=60 mL/min 08/22/2023 8:20 AM EST [facility] Comment:eGFR is calculated b ased on the CKD-EPI 2020 equation Blood Venous blood specimen / Unknown Venipuncture / Unknown 08/22/2023 6:26 AM EST 08/22/2023 6:26 AM EST Yonny Saldivar MD LAB BLOOD ORDERAB LES Performing Organization Address City/[facility] Co de Phone Number LAB[facility]ATORY [facility] [place] [address] [place] [address] documented in this encounter Visit Diagnoses Diagnosis ESRD (end stage renal disease) ([facility])- Primary End stage renal disease Anemia of chronic renal failure, stage 5 ([facility]) Anemia in chronic kidney disease, on chronic dialysis ([facility]) documented in this encounter Administered Medications Inactive Administered Medications - up to 3 most recent administrations Medication Order MAR Action Action Date Dose Rate Site Doxercalciferol (Hectorol) 2 MCG/ML inj 4 mcg 4 mcg, Intravenous, ONCE, On 08/19/23 at 0730, For 1 dose Given 08/19/2023 7:54 AM EST 4 mcg hEParin 1,000 unit/mL infusion for dialysis 500 Units/hr (0.5 mL/hr), Hemodialysis, CONTINUOUS, Starting on 08/19/23 at 0730, Until 08/19/23 at 1423, Maintenance: Stop 1 hour before dialysis end in AVF/AVG. Continue through dialysis in CVC. The total delivered dose is approximately 2,500 to 5,000 units, based on weight and treatment duration assumptions New Bag 08/19/2023 7:52 AM EST 500 Units/hr 0.5 mL/hr hEParin 1000 UNIT/ML inj 2,000 Units 2,000 Units, Intravenous, ONCE, On 08/19/23 at 0730, For 1 dose, Loading dose Given 08/19/2023 7:52 AM EST 2,000 Units sodium citrate 4% (Anticoagulant Sodium Citrate) inj 2.5 mL 2.5 mL, Dialysis catheter, ONCE, On 08/19/23 at 0730, For 1 dose, ARTERIAL For use only to lock dialysis catheter after dialysis Given 08/19/2023 7:53 AM EST 2.5 mL sodium citrate 4% (Anticoagulant Sodium Citrate) inj 2.5 mL 2.5 mL, Dialysis catheter, ONCE, On 08/19/23 at 0730, For 1 dose, VENOUS For use only to lock dialysis catheter after dialysis Given 08/19/2023 7:53 AM EST 2.5 mL documented in this [...] Advance Directives occurred with: Patient Care Teams Cat Wagon Operator Relationship Specialty Start Date End Date Tomer Garner MD [address] [place] [address] PCP - General 09/19/02 documented as of this encounter
--- OUTSIDE RECORDS SUMMARY | 2024-03-17 14:33 | External Medical Summary | Summary of Care ---
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 chronic kidney disease, not on chronic dialysis (HCC) Procedures AK EPOETIN PITER, NON-ESRD AK EPOETIN PITER, 100 UNITS ESRD Yonny Saldivar MD [address] [place] [address] [address] [place] [address] Referral ID Status Reason Start Date Expiration Date Visits Re quested Visits Authorized [id number] Closed 08/22/2023 02/21/2024 999 0 Encounter Details Date Type Department Care Team (Late st Contact Info) Description 08/15/2023 5:30 AM EST Treatment Hemodialysis [facility] Lucas [...] (Oral) 1981,04/11 Pneumococcal Conjugate Vacci ne, 20-valent ([id number]) 11/17/2022 Seasonal Influenza, PF, 6 M & [...] Sign Reading Time Taken Comments Blood Pressure 95/55 08/15/2023 9:45 AM EST Pulse 77 08/15/2023 9:45 AM EST Temperature 36.6 C (97.9 F) 08/15/2023 9:45 AM ES T Respiratory Rate 16 08/15/2023 9:45 AM EST Oxygen Saturation - - [...] as of this encounter Miscellaneous Notes * Dialysis Rounding Note - Zarina Zavala PA-C - 08/15/2023 5:30 AM EST DIALYSIS ROUNDING NOTE Name: Chandan Donato Chandan Donato was seen and examined while on dialysis. Professional oversight of the patient's dialysis care, access care and dialysis related co-morbidities were addressed as necessary with the patient and/or staff. Patient reports feeling good. Patient denies chest pain, shortness of breath, nausea, vomiting. Dialysis access: right IJ TDC functional SBP 90s, asymptomatic. PE: appropriately responsive, no acute respiratory distress, regular rhythm, tolerates room air, Hernan edema bilaterally. A/Plan: Patient tolerating hemodialysis. Continue hemodialysis treatment as ordered. Monitor BP andadjust EDW as needed. Denies changes to his life style. documented in this encounter Plan of Treatment Upcoming Encounters Date Type Department Care Team (Late st Contact Info) Description 09/28/2023 Plan of Care Documentation Home Dialysis [facility] [address] [place] [address] 11/03/2023 1:00 PM EST Office Visit Home Dialysis [facility] [address] [place] [address] [facility], Peritoneal Dialysis [address] [place] [address] 11/10/2023 8:00 AM EST Treatment Home Dialysis [facility] [address] [place], [place] [address] Nurse, Lance [employer] [facility] [address], [place] [address] 11/10/2023 1:00 PM EST Nurse Only Home Dialysis [facility] [address] [place], [place] [address] Nurse, Lance [employer] [facility] [address] [place] [address] 12/04/2023 1:00 PM EDT Office Visit Home Dialysis [facility] [address] [place] [address] [facility] [place], Peritoneal Dialysis [address] [facility] [place], [place] [address] 12/11/2023 8:00 AM EDT Treatment Home Dialysis [facility] [address] [place], [place] [address] Nurse, [employer] [facility] [address], [place] [address] 12/11/2023 1:00 PM EDT Nurse Only Home Dialysis [facility] [address] [place], [place] [address] Nurse, [employer] [facility] [address] [place] [address] 12/26/2023 1:00 PM EDT Office Visit Home Dialysis [facility] [address] [place], [place] [address] [facility] [place], Peritoneal Dialysis [address] [place] [facility] [place] [address] 01/10/2024 8:00 AM EDT Treatment Home Dialysis [facility] [address] [place], [place] [address] Nurse, Lance [address] [facility] [address] [place] [address] 01/10/2024 1:00 PM EDT Nurse Only Home Dialysis [facility] [address] [place], [place] [address] Nurse, Lance [address] [employer] [address] [place] [address] 02/08/2024 1:00 PM EDT Office Visit Home Dialysis [facility] [address] [place] [address] [facility] [place], Peritoneal Dialysis [address] [place] [address] 02/10/2024 8:00 AM EDT Treatment Home Dialysis [facility] [address] [place], [place] [phone] Nurse, Lance [employer] [facility] [address] [place] [address] 02/12/2024 1:00 PM EDT Nurse Only Home Dialysis [facility] [address] [place], [place] [phone] Nurse, Lance Lopez [employer] [address] [place] [address] 03/05/2024 1:00 PM EDT Office Visit Home Dialysis [facility] [address] [place] [address] [facility] [place], Peritoneal Dialysis [address] [facility] [place] [address] 03/11/2024 8:00 AM EDT Treatment Home Dialysis [facility] [address] [place] [address] Nurse, [address] [facility] [address] [place] [address] 03/11/2024 1:00 PM EDT Nurse Only Home Dialysis [facility] [address] [place] [address] Nurse, Lance [address] [facility] [address] [place] [address] 03/19/2024 1:00 PM EDT Office Visit Home Dialysis [facility] [address] [place] [address] [facility] [place] [facility], Peritoneal Dialysis [address] [place] [address] 04/11/2024 8:00 AM EDT Treatment Home Dialysis [facility] [address] [place], [place] [phone] Nurse, Lance [address] [facility] [address] [place] [address] 04/11/2024 1:00 PM EDT Nurse Only Home Dialysis [facility] [address] [place], [place] [phone] Nurse, Lance [address] [employer] [address] [place] [address] 04/29/2024 1:00 PM EDT Office Visit Home Dialysis [facility] [address] [place] [address] [facility], Peritoneal Dialysis [address] [place] [address] 05/12/2024 8:00 AM EDT Treatment Home Dialysis [facility] [address] [place] [address] Nurse, Lance [address] [employer] [address] [place] [address] 05/14/2024 1:00 PM EDT Nurse Only Home Dialysis [facility] [address] [place] [address] Nurse, Lance [address] [employer] [address] [place] [address] 06/07/2024 1:00 PM EDT Office Visit Home Dialysis [facility]ah [address] [place], [place] [address] Mdc, Peritoneal Dialysis [address] [place] [address] 06/11/2024 8:00 AM EDT Treatment Home Dialysis [facility] [address] [place], [place] [address] Nurse, LanceBranchly [facility] [address], [place] [address] 06/11/2024 1:00 PM EDT Nurse Only Home Dialysis [facility] [address] [facility] [address] [place], [place] [phone] Nurse, Lancebaltazar Bee [address], [place] [address] 06/25/2024 1:00 PM EDT Office Visit Home Dialysis [facility] [address] [place], [place] [address] [facility] [place] [facility], Peritoneal Dialysis [address] [place] [address] 07/12/2024 8:00 AM EDT Treatment Home Dialysis Hazmah [address] [place], [place] [address] Nurse, Lance [address] [facility] [address], [place] [address] 07/12/2024 1:00 PM EDT Nurse Only Home Dialysis [facility] [address] [place], [place] [address] Nurse, Lance [employer] [facility] [address] [place] [address] 07/22/2024 1:00 PM EST Office Visit Home Dialysis [facility] [address] [facility] [address] [place], [place] [address] [facility], Peritoneal Dialysis [address] [place] [address] 08/11/2024 8:00 AM EST Treatment Home Dialysis [facility] [address], [place] [phone] Nurse, Lance [employer] [facility] [address], [place] [address] 08/12/2024 1:00 PM EST Nurse Only Home Dialysis [facility]azh [address] [place] [phone] Nurse, [employer] [address], [place] [address] 08/20/2024 1:00 PM EST Office Visit Home Dialysis [facility] [address] [place], [place] [phone] Mdc, Peritoneal Dialysis [address] [place] [id number] Health Maintenance Due Date Last Done Comments [...] 4 mcg 4 mcg, Intravenous, ONCE, On Mon08/15/23 at 0715, For 1 dose Given 08/15/2023 8:11 AM EST 4 mcg hEParin 1,000 unit/mL infusion for dialysis 500 Units/hr (0.5 mL/hr), Hemodialysis, CONTINUOUS, Starting on Mon08/15/23 at 0715, Until Mon08/15/23 at 1453, Maintenance: Stop 1 hour before dialysis end in AVF/AVG. Continue through dialysis in CVC. The total delivered dose is approximately 2,500 to 5,000 units, based on weight and treatment duration assumptions New Bag 08/15/2023 8:11 AM EST 500 Units/hr 0.5 mL/hr hEParin 1000 UNIT/ML inj 2,000 Units 2,000 Units, Intravenous, ONCE, On Mon08/15/23 at 0715, For 1 dose, Loading dose Given 08/15/2023 8:10 AM EST 2,000 Units Iron Sucrose (Venofer) inj 100 mg 100 mg, Intravenous, ONCE, 1 dose, On Mon08/15/23 at 0715 Given 08/15/2023 8:12 AM EST 100 mg sodium citrate 4% (Anticoagulant Sodium Citrate) inj 2.5 mL 2.5 mL, Dialysis catheter, ONCE, On Mon08/15/23 at 0715, For 1 dose, ARTERIAL For use only to lock dialysis catheter after dialysis Given 08/15/2023 8:11 AM EST 2.5 mL sodium citrate 4% (Anticoagulant Sodium Citrate) inj 2.5 mL 2.5 mL, Dialysis catheter, ONCE, On Mon08/15/23 at 0715, For 1 dose, VENOUS For use only to lock dialysis catheter after dialysis Given 08/15/2023 8:11 AM EST 2.5 mL documented in this [...] Advance Directives occurred with: Patient Care Teams Fur Nailer Relationship Specialty Start Date End Date Tomer Garner MD [address] [place] [address] PCP - General 09/19/02 documented as of this encounter
--- OUTSIDE RECORDS SUMMARY | 2024-03-17 14:33 | External Medical Summary | Summary of Care ---
Author Name Unknown Organization [facility] Address [address] [place] [address] Phone [phone] Care Team Providers Care Audio Video Tech Name Role Phone Tomer Garner MD Primary [...] UNITS ESRD Yonny Saldivar MD [address] [place] [address] [address] [place] [address] Referral ID Status Reason Start Date Expiration Date Visits Re quested Visits Authorized [id number] Closed 08/22/2023 02/21/2024 999 0 Encounter Details [...] (Oral) 1981,04/11 Pneumococcal Conjugate Vacci ne, 20-valent ([id number]) 11/17/2022 Pneumococcal Polysaccharide PPV23 (Pneumovax) 02/03/2004 Seasonal [...] [facility]au [address] [place] [address] [facility]dc, Peritoneal Dialysis [address] [place] [id number] 11/10/2023 8:00 AM EST Treatment Home Dialysis [facility] [address] [place] [address] Nurse, Lance Lopez [facility] [address], [place] [address] 11/10/2023 1:00 PM EST Nurse Only Home Dialysis [facility] [address] [place], [place] [phone] Nurse, Lance [address] [employer] [address] [place], [place] [address] 12/04/2023 1:00 PM EDT Office Visit Home Dialysis [facility] [address] [place], [place] [address] [facility] [place] [address] [place] [address] 12/11/2023 8:00 AM EDT Treatment Home Dialysis Clau [address] [place], [place] [phone] Nurse, Lance [address] [facility] [address] [place] [address] 12/11/2023 1:00 PM EDT Nurse Only Home Dialysis [facility] [address] [place] [address] Nurse, Lance Lopez [facility] [address] [place] [address] 12/26/2023 1:00 PM EDT Office Visit Home Dialysis [facility] [address] [place], [place] [address] [facility] [place] [address] [place] [place] [address] 01/10/2024 8:00 AM EDT Treatment Home Dialysis Clau [address] [place], [place] [phone] Nurse, Lance [address] [facility] [address] [place], [place] [address] 01/10/2024 1:00 PM EDT Nurse Only Home Dialysis Clau [address] [place], [place] [phone] Nurse, Lance [address] [employer] [address] [place], [place] [address] 02/08/2024 1:00 PM EDT Office Visit Home Dialysis [facility] [address] [place], [place] [address] [facility] [place] [address] [place] [address] 02/10/2024 8:00 AM EDT Treatment Home Dialysis Cl[facility] [address] [place], [place] [phone] Nurse, Lance [address] [employer] [address] [place], [place] [address] 02/12/2024 1:00 PM EDT Nurse Only Home Dialysis [facility] [address] [place], [place] [phone] Nurse, Lance [address] [employer] [address] [place], [place] [address] 03/05/2024 1:00 PM EDT Office Visit Home Dialysis [facility] [address] [place], [place] [address] [facility] [place] [facility] [place] [address] [place] [facility] [address] 03/11/2024 8:00 AM EDT Treatment Home Dialysis [facility] [address] [place], [place] [phone] Nurse, Lance [address] [facility] [address] [place], [place] [address] 03/11/2024 1:00 PM EDT Nurse Only Home Dialysis [facility] [address] [place], [place] [phone] Nurse, Lance [address] [employer] [address] [place], [place] [address] 03/19/2024 1:00 PM EDT Office Visit Home Dialysis [facility] [address] [place], [place] [address] [facility], Peritoneal Dialysis [address] [place] [address] 04/11/2024 8:00 AM EDT Treatment Home Dialysis [facility] [address] [place], [place] [phone] Nurse, [employer] [facility] [address], [place] [address] 04/11/2024 1:00 PM EDT Nurse Only Home Dialysis [facility] [address] [place], [place] [phone] Nurse, [employer] [facility] [address], [place] 04/29/2024 1:00 PM EDT Office Visit Home Dialysis [facility] [address] [place], [place] [address] [facility] [place] [address] [place], [place] [address] 05/12/2024 8:00 AM EDT Treatment Home Dialysis [facility] [address] [place], [place] [phone] Nurse, [employer] [facility] [address], [place] [address] 05/14/2024 1:00 PM EDT Nurse Only Home Dialysis [facility] [address] [place], [place] [phone] Nurse, [employer] [facility] [address], [place] [address] 06/07/2024 1:00 PM EDT Office Visit Home Dialysis [facility] [address] [place], [place] [address] [facility] [place] [address] [place] [address] 06/11/2024 8:00 AM EDT Treatment Home Dialysis [facility] [address] [place], [place] [address] Nurse, Lance Lopez [facility] [address], [place] [address] 06/11/2024 1:00 PM EDT Nurse Only Home Dialysis [facility] [address] [facility] [address] [place], [place] [address] Nurse, Lancebaltazar Lopez [facility] [address], [place] [address] 06/25/2024 1:00 PM EDT Office Visit Home Dialysis [facility] [address] [facility] [address], [place] [address] [facility] [place] [address] [facility] [place], [place] [address] 07/12/2024 8:00 AM EDT Treatment Home Dialysis [facility] [address] [facility] [address] [place], [place] [phone] Nurse, Lancebaltazar Lopez [facility] [address], [place] [address] 07/12/2024 1:00 PM EDT Nurse Only Home Dialysis [facility] [address] [facility] [address] [place], [place] [address] Nurse, Lancebaltazar Lopez [facility] [address], [place] [address] 07/22/2024 1:00 PM EST Office Visit Home Dialysis [facility] [address] [facility] [address] [place], [place] [address] [facility] [place] [address] [place] [facility] [address] 08/11/2024 8:00 AM EST Treatment Home Dialysis [facility] [address] [facility] [address] [place], [place] [address] Nurse, Lance [address] [place] [address] 08/12/2024 1:00 PM EST Nurse Only Home Dialysis [facility] [address] [phone] Nurse, Lance [address] [facility] [address] [place] [address] 08/20/2024 1:00 PM EST Office Visit Home Dialysis [facility] [address] [place] [phone] [facility], Peritoneal Dialysis [address] [...] LAB [facility] [address] [place] [address] documented in this encounter Visit Diagnoses Diagnosis [...] Advance Directives occurred with: Patient Care Teams Audio Video Tech Relationship Specialty Start Date End Date Tomer Garner MD [address] [place] [facility] [place] [address] PCP - General 09/19/02 documented as of this encounter
--- OUTSIDE RECORDS SUMMARY | 2024-03-17 14:33 | External Medical Summary | Summary of Care ---
Author Name Unknown Organization [facility] Address [address] [place] [address] Phone [phone] Care Team Providers Care Computational Mathematician Name Role Phone Tomer Garner MD Primary Care Provider Reason for Visit * Reason Comments Hemodialysis * Episode Based Medications (Routine) - Closed Specialty Diagnoses / Procedures Referred By Contac t Referred To Contact Diagnoses ESRD on peritoneal dialysis (HCC) 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 chronic kidney disease, not on chronic dialysis (HCC) Procedures HI EPOETIN PITER, NON-ESRD [place] EPOETIN PITER, 100 UNITS ESRD Yonny Saldivar MD [address] [place] [address] [address] [facility] [place] [address] Referral ID Status Reason Start Date Expiration Date Visits Re quested Visits Authorized [id number] Closed 08/22/2023 02/21/2024 999 0 Encounter Details [...] (Oral) 1981,04/11 Pneumococcal Conjugate Vacci ne, 20-valent ([id number]) 11/17/2022 Seasonal Influenza, PF, 6 M & [...] [facility] [address] [place] [address] [address] 11/03/2023 1:00 PM EST Office Visit Home Dialysis [facility] [address] [place] [address] Mdc, Peritoneal Dialysis [address] [place] [address] 11/10/2023 8:00 AM EST Treatment Home Dialysis [facility] [address] [facility] [address] [place], [place] [address] Nurse, Lance [employer] [facility] [address], [place] [address] 11/10/2023 1:00 PM EST Nurse Only Home Dialysis [facility] [address] [facility] [address] [place], [place] [address] Nurse, Lance [employer] [facility] [address] [place] [address] 12/04/2023 1:00 PM EDT Office Visit Home Dialysis [facility] [address] [place] [address] [facility] Dialysis [address] [facility] [place], [place] [address] 12/11/2023 8:00 AM EDT Treatment Home Dialysis [facility] [address] [facility] [address] [place], [place] [address] Nurse, [employer] [facility] [address], [place] [address] 12/11/2023 1:00 PM EDT Nurse Only Home Dialysis [facility] [address] [facility] [address] [place], [place] [address] Nurse, [employer] [facility] [address] [place] [address] 12/26/2023 1:00 PM EDT Office Visit Home Dialysis [facility] [address] [facility] [address] [place], [place] [address] [facility] [place] Peritoneal Dialysis [address] [place] [facility] [place] [address] 01/10/2024 8:00 AM EDT Treatment Home Dialysis [facility] [address] [facility] [address] [place], [place] [address] Nurse, Lance [address] [facility] [address] [place] [address] 01/10/2024 1:00 PM EDT Nurse Only Home Dialysis [facility] [address] [place], [place] [address] Nurse, Lance [address] [employer] [address] [place] [address] 02/08/2024 1:00 PM EDT Office Visit Home Dialysis [facility] [address] [facility] [address] [place] [address] [facility] Peritoneal Dialysis [address] [place] [address] 02/10/2024 8:00 AM EDT Treatment Home Dialysis [facility] [address] [place], [place] [phone] Nurse, Lance [employer] [facility] [address] [place] [address] 02/12/2024 1:00 PM EDT Nurse Only Home Dialysis [facility] [address] [facility] [address] [place], [place] [phone] Nurse, Lance Lopez [employer] [address] [place] [address] 03/05/2024 1:00 PM EDT Office Visit Home Dialysis [facility] [address] [place] [address] [facility] [place] Peritoneal Dialysis [address] [facility] [place] [address] 03/11/2024 8:00 AM EDT Treatment Home Dialysis [facility] [address] [place] [address] Nurse, [address] [facility] [address] [place] [address] 03/11/2024 1:00 PM EDT Nurse Only Home Dialysis [facility] [address] [place] [address] Nurse, Lance [address] [place] [address] 03/19/2024 1:00 PM EDT Office Visit Home Dialysis [facility] [address] [place] [address] [facility] [place] Peritoneal Dialysis [address] [place] [address] 04/11/2024 8:00 AM EDT Treatment Home Dialysis [facility] [address] [place], [place] [phone] Nurse, Lance [address] [facility] [place] [address] 04/11/2024 1:00 PM EDT Nurse Only Home Dialysis [facility] [address] [facility] [address] [place], [place] [phone] Nurse, Lance [address] [employer] [address] [place] [address] 04/29/2024 1:00 PM EDT Office Visit Home Dialysis [facility] [address] [place] [address] [facility] [place] Peritoneal Dialysis [address] [place] [address] 05/12/2024 8:00 AM EDT Treatment Home Dialysis [facility]zah [address] [place] [address] Nurse, Lance [address] [employer] [address] [place] [address] 05/14/2024 1:00 PM EDT Nurse Only Home Dialysis [facility] [address] [place] [address] Nurse, Lance [address] [employer] [address] [place] [address] 06/07/2024 1:00 PM EDT Office Visit Home Dialysis [facility] [address] [facility] [address] [place], [place] [address] [facility], Peritoneal Dialysis [address] [place] [address] 06/11/2024 8:00 AM EDT Treatment Home Dialysis [facility] [address] [facility] [address] [place], [place] [address] Nurse, LanceYodio [facility] [address] [place], [place] [address] 06/11/2024 1:00 PM EDT Nurse Only Home Dialysis [facility] [address] [facility] [address] [place], [place] [phone] Nurse, Lancebaltazar Bee [address] [place], [place] [address] 06/25/2024 1:00 PM EDT Office Visit Home Dialysis [facility] [address] [facility] [address] [place], [place] [address] [facility] [place] Per[place] Dialysis [address] [place] [address] 07/12/2024 8:00 AM EDT Treatment Home Dialysis Hamz[facility] [address] [facility] [address] [place], [place] [address] Nurse, Lance [address] [facility] [address] [place], [place] [address] 07/12/2024 1:00 PM EDT Nurse Only Home Dialysis [facility] [address] [facility] [address] [place], [place] [address] Nurse, Lance [employer] [facility] [address] [place] [address] 07/22/2024 1:00 PM EST Office Visit Home Dialysis [facility] [address] [facility] [address] [place], [place] [address] [facility], Peritoneal Dialysis [address] [place] [address] 08/11/2024 8:00 AM EST Treatment Home Dialysis [facility] [address], [place] [address] Nurse, Lance [employer] [address], [place] [id number] 08/12/2024 1:00 PM EST Nurse Only Home Dialysis [facility] [address] [place] [address] [place] [phone] Nurse, [employer] [address], [place] [address] 08/20/2024 1:00 PM EST Office Visit Home Dialysis [facility] [address] [place], [place] [phone] [facility], Peritoneal Dialysis [address] [place] [id number] Health Maintenance Due Date Last Done Comments [...] Advance Directives occurred with: Patient Care Teams Computational Mathematician Relationship Specialty Start Date End Date Tomer Garner MD [address] [place] [address] PCP - General 09/19/02 documented as of this encounter
--- OUTSIDE RECORDS SUMMARY | 2024-03-17 14:33 | External Medical Summary | Summary of Care ---
Author Name Unknown Organization [facility] Address [address] [place] [address] Phone [phone] Care Team Providers Care Estimator Paperboard Boxes Name Role Phone Tomer Garner MD Primary Care Provider Reason for Visit * Reason Comments Hemodialysis * Episode Based Medications (Routine) - Closed Specialty Diagnoses / Procedures Referred By Contac t Referred To Contact Diagnoses ESRD on peritoneal dialysis (HCC) 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 chronic kidney disease, not on chronic dialysis (HCC) Procedures NE EPOETIN PITER, NON-ESRD NE EPOETIN PITER, 100 UNITS ESRD Yonny Saldivar MD [address] [place] [address] [place] [address] Referral ID Status Reason Start Date Expiration Date Visits Re quested Visits Authorized [id number] Closed 08/22/2023 02/21/2024 999 0 Encounter Details [...] (Oral) 1981,04/11 Pneumococcal Conjugate Vacci ne, 20-valent ([id number]) 11/17/2022 Pneumococcal Polysaccharide PPV23 (Pneumovax) 02/03/2004 Seasonal [...] [address] [place] [id number] 11/03/2023 1:00 PM EST Office Visit Home Dialysis [address] [id number] [facility], Peritoneal Dialysis [address] [facility] [place] [address] 11/10/2023 8:00 AM EST Treatment Home Dialysis [address] [id number] Nurse[place]ance [address] [place] [address] 11/10/2023 1:00 PM EST Nurse Only Home Dialysis [facility] [place] [phone] Nurse, [address] [employer] [address], [place] [address] 12/04/2023 1:00 PM EDT Office Visit Home Dialysis [address], [place] [address] [facility], Peritoneal Dialysis [address] [place] [address] 12/11/2023 8:00 AM EDT Treatment Home Dialysis [facility] [place], [place] [phone] Nurse, [address], [place] 12/11/2023 1:00 PM EDT Nurse Only Home Dialysis [address] [place], [place] [phone] Nurse, Lance [address] [place], [place] [address] 12/26/2023 1:00 PM EDT Office Visit Home Dialysis [address] [place] [address] [facility], Peritoneal Dialysis [address] [place] [address] 01/10/2024 8:00 AM EDT Treatment Home Dialysis [facility] [place], [place] [phone] Nurse, Lance [address] [employer] [address] [place] [address] 01/10/2024 1:00 PM EDT Nurse Only Home Dialysis [address] [place], [place] [phone] Nurse, Lance [address] [employer] [address] [place] [address] 02/08/2024 1:00 PM EDT Office Visit Home Dialysis [address] [place], [place] [address] [facility], Peritoneal Dialysis [address] [place] [address] 02/10/2024 8:00 AM EDT Treatment Home Dialysis [address] [place] [address] Nurse, Lance [employer] [address], [place] [address] 02/12/2024 1:00 PM EDT Nurse Only Home Dialysis [address] [place], [place] [address] Nurse, Lance [employer] [address], [place] [address] 03/05/2024 1:00 PM EDT Office Visit Home Dialysis [address] [place], [place] [address] [facility], Peritoneal Dialysis [address] [place] [address] 03/11/2024 8:00 AM EDT Treatment Home Dialysis [address] [place], [place] [phone] Nurse, [employer] [address] [place] [address] 03/11/2024 1:00 PM EDT Nurse Only Home Dialysis [address] [place], [place] [address] Nurse, Lance [employer] [address] [place] [address] 03/19/2024 1:00 PM EDT Office Visit Home Dialysis [facility] [place], [place] [address] [facility], Peritoneal Dialysis [address] [place] [address] 04/11/2024 8:00 AM EDT Treatment Home Dialysis [address] [place] [address] Nurse, Lance [address] [employer] [address] [place], [place] [address] 04/11/2024 1:00 PM EDT Nurse Only Home Dialysis [address] [place], [place] [address] Nurse, [address] [employer] [address] [place], [place] [address] 04/29/2024 1:00 PM EDT Office Visit Home Dialysis [address] [place], [place] [address] [facility], Peritoneal Dialysis [address] [place] [address] 05/12/2024 8:00 AM EDT Treatment Home Dialysis [facility] [place], [place] [address] Nurse, [address] [employer] [address] [place], [place] [address] 05/14/2024 1:00 PM EDT Nurse Only Home Dialysis [address] [place], [place] [address] Nurse, [address] [employer] [address] [place] [address] 06/07/2024 1:00 PM EDT Office Visit Home Dialysis [facility] [place], [place] [address] [facility], Peritoneal Dialysis [address] [place] [place] [address] 06/11/2024 8:00 AM EDT Treatment Home Dialysis [address] [place] [address] Nurse, [address] [employer] [address] [place] [address] 06/11/2024 1:00 PM EDT Nurse Only Home Dialysis [address] [place], [place] [address] Nurse, [address] [employer] [address] [place], [place] [address] 06/25/2024 1:00 PM EDT Office Visit Home Dialysis [address] [place], [place] [address] [facility], Peritoneal Dialysis [address] [place] [address] 07/12/2024 8:00 AM EDT Treatment Home Dialysis [facility] [place], [place] [phone] Nurse, Lance [address] [employer] [address] [place], [place] [address] 07/12/2024 1:00 PM EDT Nurse Only Home Dialysis [address] [place], [place] [phone] Nurse, [address] [employer] [address] [place], [place] [address] 07/22/2024 1:00 PM EST Office Visit Home Dialysis [address] [place], [place] [address] [facility], Peritoneal Dialysis [address] [place] [address] 08/11/2024 8:00 AM EST Treatment Home Dialysis [facility] [place], [place] [address] Nurse, [address] [employer] [address] [place] [address] 08/12/2024 1:00 PM EST Nurse Only Home Dialysis [address] [place], [place] [address] Nurse, [address] [employer] [address] [place], [place] [address] 08/20/2024 1:00 PM EST Office Visit Home Dialysis [address] [place] [address] [address] [facility], Peritoneal Dialysis [address] [facility] [place] [id number] Health Maintenance Due Date Last Done Comments [...] BLOOD ORDERAB LES LABORATORY [facility] [address] [place] [address] * ALKALINE PHOSPHATASE (08/22/2023 6:26 AM EST) Alkaline Phosphatase 68 35 - 130 U/L 08/22/2023 8:20 AM EST LABORATORY [facility] Blood Venous blood specimen / Unknown Venipuncture / Unknown 08/22/2023 6:26 AM EST 08/22/2023 6:26 AM EST Yonny Saldivar MD LAB BLOOD ORDERAB LES LABORATORY [facility] [address] [place] [address] * HEPATITIS B SURFACE ANTIGEN (08/22/2023 6:26 AM EST) Pathologist [facility] Hepatitis B Surface Antigen Negative Negative 08/22/2023 10:07 AM EST LABORATORY [facility] Blood Venous blood specimen / Unknown Venipuncture / Unknown 08/22/2023 6:26 AM EST 08/22/2023 6:26 AM EST Yonny Saldivar MD LAB BLOOD ORDERAB LES Performing Organization Address City/[facility]/ZIP Co de Phone Number LABORATORY [facility] [address] [place] [address] * (ABNORMAL) IRON SCREEN, INCLUDING TIBC (08/22/2023 6:26 AM EST) Pathologist [facility] Iron 84 45 - 176 ug/dL 08/22/2023 8:20 AM EST LABORATORY [facility] Iron Binding Capacity 224(L) 250 - 425 ug/dL 08/22/2023 8:20 AM EST LABORATORY C Transferrin Saturation Percent 38 15 - 55 % 08/22/2023 8:20 AM EST LABORATORY [facility] Blood Venous blood specimen / Unknown Venipuncture / Unknown 08/22/2023 6:26 AM EST 08/22/2023 6:26 AM EST Yonny Saldivar MD LAB BLOOD ORDERAB LES LABORATORY [facility] [address] [place] [address] * (ABNORMAL) CHLORIDE (08/22/2023 6:26 AM EST) Chloride 96(L) 98 - 107 mmol/L 08/22/2023 8:20 AM EST LABORATORY [facility] Blood Venous blood specimen / Unknown Venipuncture / Unknown 08/22/2023 6:26 AM EST 08/22/2023 6:26 AM EST Yonny Saldivar MD LAB BLOOD ORDERAB LES Performing Organization Address City/[facility] Co de Phone Number LABORATORY [facility] [address] [place] [address] * (ABNORMAL) ADJUSTED CALCIUM PHOSPHORUS PRODUCT (08/22/2023 [...] LAB BLOOD ORDERAB LES Performing Organization Address City/[facility] Co de Phone Number LABORATORY [facility] [address] [place] [address] * ALT (08/22/2023 6:26 AM EST) ALT 14 10 - 50 U/L 08/22/2023 8:20 AM EST LABORATORY [facility] Blood Venous blood specimen / Unknown Venipuncture / Unknown 08/22/2023 6:26 AM EST 08/22/2023 6:26 AM EST Yonny Saldivar MD LAB BLOOD ORDERAB LES Performing Organization Address City/[facility] Co de Phone Number LABORATORY [facility] [address] [place] [address] * CO2 (08/22/2023 6:26 AM EST) CO2 25 22 - 32 mmol/L 08/22/2023 8:20 AM EST LABORATORY [facility] Blood Venous blood specimen / Unknown Venipuncture / Unknown 08/22/2023 6:26 AM EST 08/22/2023 6:26 AM EST Yonny Saldivar MD LAB BLOOD ORDERAB LES Performing Organization Address [facility] de Phone Number LABORATORY [facility] [address] [place] [address] * SODIUM (08/22/2023 6:26 AM EST) Sodium 139 135 - 146 mmol/L 08/22/2023 8:20 AM EST LABORATORY [facility] Blood Venous blood specimen / Unknown Venipuncture / Unknown 08/22/2023 6:26 AM EST 08/22/2023 6:26 AM EST Yonny Saldivar MD LAB BLOOD ORDERAB LES Performing Organization Address City/[facility] de Phone Number LABORATORY [facility] [address] [place] [address] * PRE DIALYSIS BUN (08/22/2023 6:26 AM EST) Pre-Dialysis BUN 71 mg/dL 08/22/2023 8:11 AM EST LABORATORY [facility] Blood Venous blood specimen / Unknown Venipuncture / Unknown 08/22/2023 6:26 AM EST 08/22/2023 6:26 AM EST Yonny Saldivar MD LAB BLOOD ORDERAB LES Performing Organization Address City/[facility]/ZIP Co de Phone Number LABORATORY [facility] [address] [place] [address] * (ABNORMAL) CBC (08/22/2023 6:26 AM EST) [facility] WBC 8.44 4.00 - 10.80 K/uL 08/22/2023 [...] BLOOD ORDERAB LES LABORATORY [facility] [address] [place] [address] * POTASSIUM (08/22/2023 6:26 AM EST) Potassium 4.4 3.5 - 5.1 mmol/L 08/22/2023 8:20 AM EST LABORATORY [facility] Blood Venous blood specimen / Unknown Venipuncture / Unknown 08/22/2023 6:26 AM EST 08/22/2023 6:26 AM EST Yonny Saldivar MD LAB BLOOD ORDERAB LES LABORATORY [facility] [address] [place] [address] * AST (08/22/2023 6:26 AM EST) AST 13 10 - 50 U/L 08/22/2023 8:20 AM EST LABORATORY [facility] Blood Venous blood specimen / Unknown Venipuncture / Unknown 08/22/2023 6:26 AM EST 08/22/2023 6:26 AM EST Yonny Saldivar MD LAB BLOOD ORDERAB LES Performing Organization Address [facility] de Phone Number LABORATORY [facility] [address] [place] [address] * (ABNORMAL) CREATININE (08/22/2023 6:26 AM EST) Creatinine 14.8(H) 0.6 - 1.2 mg/dL 08/22/2023 8:20 AM EST LABORATORY [facility] Estimated Glomerular Filtration Rate 4(L) >=60 mL/min 08/22/2023 8:20 AM EST LABORATORY [facility] Comment:eGFR is calculated b ased on the CKD-EPI 2020 equation Blood Venous blood specimen / Unknown Venipuncture / Unknown 08/22/2023 6:26 AM EST 08/22/2023 6:26 AM EST Yonny Saldivar MD LAB BLOOD ORDERAB LES Performing Organization Address City/[facility] Co de Phone Number LABORATORY [facility] [address] [place] [address] documented in this encounter Visit Diagnoses Diagnosis ESRD (end stage renal disease) ([facility])- Primary End stage renal disease Anemia of chronic renal failure, stage 5 ([facility]) Anemia in chronic kidney disease, on chronic dialysis ([facility]) documented in this encounter Administered Medications [...] Advance Directives occurred with: Patient Care Teams Estimator Paperboard Boxes Relationship Specialty Start Date End Date Tomer Garner MD [address] [place] [address] PCP - General 09/19/02 documented as of this encounter
--- OUTSIDE RECORDS SUMMARY | 2024-03-17 14:33 | External Medical Summary | Summary of Care ---
Author Name Unknown Organization [facility] Address [address] [place] [address] Phone [phone] Care Team Providers Care Telegraph And Teletype Operator Name Role Phone Tomer Garner MD Primary Care Provider Reason for Visit * Reason Comments Hemodialysis * Episode Based Medications (Routine) - Closed Specialty Diagnoses / Procedures Referred By Contac t Referred To Contact Diagnoses ESRD on peritoneal dialysis (HCC) 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 chronic kidney disease, not on chronic dialysis (HCC) Procedures CA EPOETIN PITER, NON-ESRD CA EPOETIN PITER, 100 UNITS ESRD Yonny Saldivar MD [address] [place] [address] [address] [place] [address] Referral ID Status Reason Start Date Expiration Date Visits Re quested Visits Authorized [id number] Closed 08/22/2023 02/21/2024 999 0 Encounter Details [...] (Oral) 1981,04/11 Pneumococcal Conjugate Vacci ne, 20-valent ([id number]) 11/17/2022 Pneumococcal Polysaccharide PPV23 (Pneumovax) 02/03/2004 Seasonal [...] [address] [place] [address] [facility], Peritoneal Dialysis [address] [place] [id number] 11/10/2023 8:00 AM EST Treatment Home Dialysis [address] [place] [address] Nurse, [place] [address] [facility] [address], [place] [address] 11/10/2023 1:00 PM EST Nurse Only Home Dialysis [address] [place], [place] [phone] Nurse, [address] [employer] [address], [place] [address] 12/04/2023 1:00 PM EDT Office Visit Home Dialysis [address] [place], [place] [address] [facility] [place] Dialysis [address] [place] [address] 12/11/2023 8:00 AM EDT Treatment Home Dialysis [address] [place], [place] [phone] Nurse, [address] [facility] [address] [place] [address] 12/11/2023 1:00 PM EDT Nurse Only Home Dialysis [address] [place] [address] Nurse, [place] [employer] [address] [place] [address] 12/26/2023 1:00 PM EDT Office Visit Home Dialysis [address] [place], [place] [address] [facility] [facility]ialysis [address] [facility] [place] [address] 01/10/2024 8:00 AM EDT Treatment Home Dialysis [address] [place], [place] [phone] Nurse, [address] [facility] [address] [place], [place] [address] 01/10/2024 1:00 PM EDT Nurse Only Home Dialysis [address] [place], [place] [phone] Nurse, [address] [employer] [address], [place] [address] 02/08/2024 1:00 PM EDT Office Visit Home Dialysis [address], [place] [address] [facility] [place] Dialysis [address] [place] [address] 02/10/2024 8:00 AM EDT Treatment Home Dialysis [address] [place], [place] [phone] Nurse, [address] [employer] [address], [place] [address] 02/12/2024 1:00 PM EDT Nurse Only Home Dialysis [address] [place], [place] [phone] Nurse, [address] [employer] [address] [place], [place] [address] 03/05/2024 1:00 PM EDT Office Visit Home Dialysis [address] [place], [place] [address] [facility] Per[place] Dialysis [address] [place] [facility] [address] 03/11/2024 8:00 AM EDT Treatment Home Dialysis [address] [place], [place] [phone] Nurse, [address] [facility] [address], [place] [address] 03/11/2024 1:00 PM EDT Nurse Only Home Dialysis [address] [place], [place] [phone] Nurse, [address] [employer] [address] [place], [place] [address] 03/19/2024 1:00 PM EDT Office Visit Home Dialysis [address] [place], [place] [address] [facility], Peritoneal Dialysis [address] [place] [address] 04/11/2024 8:00 AM EDT Treatment Home Dialysis [address], [place] [phone] Nurse, [employer] [address], [place] [address] 04/11/2024 1:00 PM EDT Nurse Only Home Dialysis [address] [place], [place] [phone] Nurse, [employer] [address], [place] 04/29/2024 1:00 PM EDT Office Visit Home Dialysis [address], [place] [address] [facility] [place] Dialysis [address] [place], [place] [address] 05/12/2024 8:00 AM EDT Treatment Home Dialysis [address] [place], [place] [phone] Nurse, [employer] [address], [place] [address] 05/14/2024 1:00 PM EDT Nurse Only Home Dialysis [address], [place] [phone] Nurse, [employer] [address], [place] [address] 06/07/2024 1:00 PM EDT Office Visit Home Dialysis [address], [place] [address] [facility] [place] Dialysis [address] [place] [address] 06/11/2024 8:00 AM EDT Treatment Home Dialysis [address] [place], [place] [address] Nurse, Lance [address] [employer] [address], [place] [address] 06/11/2024 1:00 PM EDT Nurse Only Home Dialysis [address] [place], [place] [address] Nurse, Lancebaltazar Lopez [employer] [address], [place] [address] 06/25/2024 1:00 PM EDT Office Visit Home Dialysis [address], [place] [address] [facility] Per[place] Dialysis [address] [facility] [place], [place] [address] 07/12/2024 8:00 AM EDT Treatment Home Dialysis [address], [place] [phone] Nurse, Lancebaltazar Lopez [employer] [address], [place] [address] 07/12/2024 1:00 PM EDT Nurse Only Home Dialysis [address] [place], [place] [address] Nurse, Lancebaltazar Lopez [employer] [address], [place] [address] 07/22/2024 1:00 PM EST Office Visit Home Dialysis [address] [place], [place] [address] [facility] [place] Dialysis [address] [place] [facility] [address] 08/11/2024 8:00 AM EST Treatment Home Dialysis [address] [place], [place] [address] Nurse, [address] [place] [address] 08/12/2024 1:00 PM EST Nurse Only Home Dialysis [address] [phone] Nurse, [address] [place] [address] 08/20/2024 1:00 PM EST Office Visit Home Dialysis [address] [id number] [facility], Peritoneal Dialysis [address] [...] LAB BLOOD ORDERAB LES LABORATORY [facility] [address] [place] [address] documented in this encounter Visit Diagnoses Diagnosis [...] Advance Directives occurred with: Patient Care Teams Telegraph And Teletype Operator Relationship Specialty Start Date End Date Tomer Garner MD [address] [facility] [place] [address] PCP - General 09/19/02 documented as of this encounter
--- OUTSIDE RECORDS SUMMARY | 2024-03-17 14:33 | External Medical Summary | Summary of Care ---
Author Name Unknown Organization [facility] Address [address] [place] [address] Phone [phone] Care Team Providers Care Engineering Associate Name Role Phone Tomer Garner MD Primary Care Provider Reason for Visit * Reason Comments Hemodialysis * Episode Based Medications (Routine) - Closed Specialty Diagnoses / Procedures Referred By Contac t Referred To Contact Diagnoses ESRD on peritoneal dialysis (HCC) 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 chronic kidney disease, not on chronic dialysis (HCC) Procedures [place] EPOETIN PITER, NON-ESRD [place] EPOETIN PITER, 100 UNITS ESRD Yonny Saldivar MD [address] [place] [address] [place] [address] Referral ID Status Reason Start Date Expiration Date Visits Re quested Visits Authorized [id number] Closed 08/22/2023 02/21/2024 999 0 Encounter Details [...] (Oral) 1981,04/11 Pneumococcal Conjugate Vacci ne, 20-valent ([id number]) 11/17/2022 Pneumococcal Polysaccharide PPV23 (Pneumovax) 02/03/2004 Seasonal [...] [address] [id number] 11/03/2023 1:00 PM EST Office Visit Home Dialysis [address] [id number] [facility], Peritoneal Dialysis [address] [facility] [place] [address] 11/10/2023 8:00 AM EST Treatment Home Dialysis [facility] [address] [id number] Nurse[facility]ance [address] [place] [address] 11/10/2023 1:00 PM EST Nurse Only Home Dialysis [address] [phone] Nurse, Lance [address] [facility] [address] [place], [place] [address] 12/04/2023 1:00 PM EDT Office Visit Home Dialysis [address] [place], [place] [address] [facility], Peritoneal Dialysis [address] [place] [address] 12/11/2023 8:00 AM EDT Treatment Home Dialysis [facility] [address] [place], [place] [phone] Nurse, Lance [address] [facility] [address] [place], [place] 12/11/2023 1:00 PM EDT Nurse Only Home Dialysis [address] [place], [place] [phone] Nurse, Lance [address] [facility] [place], [place] [address] 12/26/2023 1:00 PM EDT Office Visit Home Dialysis [address] [place] [address] [facility], Peritoneal Dialysis [address] [place] [address] 01/10/2024 8:00 AM EDT Treatment Home Dialysis [facility] [address] [place], [place] [phone] Nurse, Lance [address] [employer] [address] [place] [address] 01/10/2024 1:00 PM EDT Nurse Only Home Dialysis [facility] [place], [place] [phone] Nurse, Lance [address] [employer] [address] [place] [address] 02/08/2024 1:00 PM EDT Office Visit Home Dialysis [facility] [place], [place] [address] [facility], Peritoneal Dialysis [address] [place] [address] 02/10/2024 8:00 AM EDT Treatment Home Dialysis [address] [place] [address] Nurse, Lance Gaz[employer] [address], [place] [address] 02/12/2024 1:00 PM EDT Nurse Only Home Dialysis [address] [place] [place], [place] [address] Nurse, Lance Gazoob [facility] [address], [place] [address] 03/05/2024 1:00 PM EDT Office Visit Home Dialysis [facility], [place] [address] [facility], Peritoneal Dialysis [address] [place] [address] 03/11/2024 8:00 AM EDT Treatment Home Dialysis [facility] [place], [place] [phone] Nurse, [employer] [facility] [place] [address] 03/11/2024 1:00 PM EDT Nurse Only Home Dialysis [address] [place], [place] [address] Nurse, Lance Gazoob [facility] [address] [place] [address] 03/19/2024 1:00 PM EDT Office Visit Home Dialysis [facility] [place], [place] [address] [facility], Peritoneal Dialysis [address] [place] [address] 04/11/2024 8:00 AM EDT Treatment Home Dialysis [facility] [place] [address] Nurse, [address] [employer] [address] [place], [place] [address] 04/11/2024 1:00 PM EDT Nurse Only Home Dialysis [address] [place], [place] [address] Nurse, [address] [employer] [address] [place], [place] [address] 04/29/2024 1:00 PM EDT Office Visit Home Dialysis [facility] [place], [place] [address] [facility], Peritoneal Dialysis [address] [place] [address] 05/12/2024 8:00 AM EDT Treatment Home Dialysis [facility] [address] [place], [place] [address] Nurse, Lance [address] [employer] [address] [place], [place] [address] 05/14/2024 1:00 PM EDT Nurse Only Home Dialysis [address] [place], [place] [address] Nurse, [address] [employer] [address] [place] [address] 06/07/2024 1:00 PM EDT Office Visit Home Dialysis [facility] [place], [place] [address] [facility], Peritoneal Dialysis [address] [facility] [place] [address] 06/11/2024 8:00 AM EDT Treatment Home Dialysis [facility] [place] [address] Nurse, [address] [employer] [address] [place] [address] 06/11/2024 1:00 PM EDT Nurse Only Home Dialysis [address] [place], [place] [address] Nurse, [address] [employer] [address], [place] [address] 06/25/2024 1:00 PM EDT Office Visit Home Dialysis [address] [place], [place] [address] [facility], Peritoneal Dialysis [address] [place] [address] 07/12/2024 8:00 AM EDT Treatment Home Dialysis [address] [place], [place] [phone] Nurse, Lance [address] [employer] [address] [place], [place] [address] 07/12/2024 1:00 PM EDT Nurse Only Home Dialysis [facility] [place], [place] [phone] Nurse, Lance [address] [employer] [address] [place], [place] [address] 07/22/2024 1:00 PM EST Office Visit Home Dialysis [address], [place] [address] [facility], Peritoneal Dialysis [address] [place] [address] 08/11/2024 8:00 AM EST Treatment Home Dialysis [facility] [place], [place] [address] Nurse, [address] [employer] [address] [place] [address] 08/12/2024 1:00 PM EST Nurse Only Home Dialysis [facility] [place], [place] [address] Nurse, [address] [employer] [address], [place] [address] 08/20/2024 1:00 PM EST Office Visit Home Dialysis [address] [place] [address] [facility], Peritoneal Dialysis [address] [facility] [place] [id number] Health Maintenance Due Date Last Done Comments [...] BLOOD ORDERAB LES LABORATORY [facility] [address] [place] [address] * ALKALINE PHOSPHATASE (08/22/2023 6:26 AM EST) Alkaline Phosphatase 68 35 - 130 U/L 08/22/2023 8:[address] [facility] Blood Venous blood specimen / Unknown Venipuncture / Unknown 08/22/2023 6:26 AM EST 08/22/2023 6:26 AM EST Yonny Saldivar MD LAB BLOOD ORDERAB LES LAB[facility]ATORY [facility] [address] [place] [address] * HEPATITIS B SURFACE ANTIGEN (08/22/2023 6:26 AM EST) Pathologist [facility] Hepatitis B Surface Antigen Negative Negative 08/22/2023 10:[address] [facility] Blood Venous blood specimen / Unknown Venipuncture / Unknown 08/22/2023 6:26 AM EST 08/22/2023 6:26 AM EST Yonny Saldivar MD LAB BLOOD ORDERAB LES Performing Organization Address City/[facility]/ZIP Co de Phone Number LAB[facility]ATORY [facility] [address] [place] [address] * (ABNORMAL) IRON SCREEN, INCLUDING TIBC (08/22/2023 6:26 AM EST) Pathologist [facility] Iron 84 45 - 176 ug/dL 08/22/2023 8:[address] [facility] Iron Binding Capacity 224(L) 250 - 425 ug/dL 08/22/2023 8:20 AM EST LABORATORY C Transferrin Saturation Percent 38 15 - 55 % 08/22/2023 8:[address] [facility] Blood Venous blood specimen / Unknown Venipuncture / Unknown 08/22/2023 6:26 AM EST 08/22/2023 6:26 AM EST Yonny Saldivar MD LAB BLOOD ORDERAB LES LAB[facility]AT[facility] [address] [place] [address] * (ABNORMAL) CHLORIDE (08/22/2023 6:26 AM EST) Chloride 96(L) 98 - 107 mmol/L 08/22/2023 8:20 AM EST LABORATORY [facility] Blood Venous blood specimen / Unknown Venipuncture / Unknown 08/22/2023 6:26 AM EST 08/22/2023 6:26 AM EST Yonny Saldivar MD LAB BLOOD ORDERAB LES Performing Organization Address City/[facility] Co de Phone Number LABORATORY [facility] [address] [place] [address] * (ABNORMAL) ADJUSTED CALCIUM PHOSPHORUS PRODUCT (08/22/2023 [...] LAB BLOOD ORDERAB LES Performing Organization Address City/[facility] Co de Phone Number LAB[facility]ATORY [facility] [address] [place] [address] * ALT (08/22/2023 6:26 AM EST) ALT 14 10 - 50 U/L 08/22/2023 8:20 AM EST LABORATORY [facility] Blood Venous blood specimen / Unknown Venipuncture / Unknown 08/22/2023 6:26 AM EST 08/22/2023 6:26 AM EST Yonny Saldivar MD LAB BLOOD ORDERAB LES Performing Organization Address City/[facility] Co de Phone Number LABORATORY [facility] [address] [place] [address] * CO2 (08/22/2023 6:26 AM EST) CO2 25 22 - 32 mmol/L 08/22/2023 8:20 AM EST LABORATORY [facility] Blood Venous blood specimen / Unknown Venipuncture / Unknown 08/22/2023 6:26 AM EST 08/22/2023 6:26 AM EST Yonny Saldivar MD LAB BLOOD ORDERAB LES Performing Organization Address [facility] de Phone Number LABORATORY [facility] [address] [place] [address] * SODIUM (08/22/2023 6:26 AM EST) Sodium 139 135 - 146 mmol/L 08/22/2023 8:20 AM EST LABORATORY [facility] Blood Venous blood specimen / Unknown Venipuncture / Unknown 08/22/2023 6:26 AM EST 08/22/2023 6:26 AM EST Yonyn Saldivar MD LAB BLOOD ORDERAB LES Performing Organization Address City/[facility] de Phone Number LAB[facility]ATORY [facility] [address] [place] [address] * PRE DIALYSIS BUN (08/22/2023 6:26 AM EST) Pre-Dialysis BUN 71 mg/dL 08/22/2023 8:11 AM EST LABORATORY [facility] Blood Venous blood specimen / Unknown Venipuncture / Unknown 08/22/2023 6:26 AM EST 08/22/2023 6:26 AM EST Yonny Saldivar MD LAB BLOOD ORDERAB LES Performing Organization Address City/[facility]/ZIP Co de Phone Number LABORATORY [facility] [address] [place] [address] * (ABNORMAL) CBC (08/22/2023 6:26 AM EST) [facility] WBC 8.44 4.00 - 10.80 K/uL 08/22/2023 [...] BLOOD ORDERAB LES LABORATORY [facility] [address] [place] [address] * POTASSIUM (08/22/2023 6:26 AM EST) Potassium 4.4 3.5 - 5.1 mmol/L 08/22/2023 8:[address] [facility] Blood Venous blood specimen / Unknown Venipuncture / Unknown 08/22/2023 6:26 AM EST 08/22/2023 6:26 AM EST Yonny Saldivar MD LAB BLOOD ORDERAB LES [facility]ATORY [facility] [address] [place] [address] * AST (08/22/2023 6:26 AM EST) AST 13 10 - 50 U/L 08/22/2023 8:[address] [facility] Blood Venous blood specimen / Unknown Venipuncture / Unknown 08/22/2023 6:26 AM EST 08/22/2023 6:26 AM EST Yonny Saldivar MD LAB BLOOD ORDERAB LES Performing Organization Address [facility] de Phone Number LAB[facility]ATORY [facility] [address] [place] [address] * (ABNORMAL) CREATININE (08/22/2023 6:26 AM EST) Creatinine 14.8(H) 0.6 - 1.2 mg/dL 08/22/2023 8:[address] [facility] Estimated Glomerular Filtration Rate 4(L) >=60 mL/min 08/22/2023 8:[address] [facility] Comment:eGFR is calculated b ased on the CKD-EPI 2020 equation Blood Venous blood specimen / Unknown Venipuncture / Unknown 08/22/2023 6:26 AM EST 08/22/2023 6:26 AM EST Yonny Saldivar MD LAB BLOOD ORDERAB LES Performing Organization Address City/[facility] Co de Phone Number LAB[facility]ATORY [facility] [address] [place] [address] documented in this encounter Visit Diagnoses Diagnosis ESRD (end stage renal disease) ([facility])- Primary End stage renal disease Anemia of chronic renal failure, stage 5 ([facility]) Anemia in chronic kidney disease, on chronic dialysis ([facility]) documented in this encounter Administered Medications Inactive [...] Advance Directives occurred with: Patient Care Teams Engineering Associate Relationship Specialty Start Date End Date Tomer Garner MD [address] [place] [address] PCP - General 09/19/02 documented as of this encounter
--- OUTSIDE RECORDS SUMMARY | 2024-03-17 14:33 | External Medical Summary | Summary of Care ---
Author Name Unknown Organization [facility] Address [address] [place] [address] Phone [phone] Care Team Providers Care Fine Craft Artist Name Role Phone Tomer Garner MD Primary Care Provider Reason for Visit * Reason Comments Hemodialysis * Episode Based Medications (Routine) - Closed Specialty Diagnoses / Procedures Referred By Contac t Referred To Contact Diagnoses ESRD on peritoneal dialysis (HCC) 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 chronic kidney disease, not on chronic dialysis (HCC) Procedures [place] EPOETIN PITER, NON-ESRD [place] EPOETIN PITER, 100 UNITS ESRD Yonny Saldivar MD [address] [place] [address] [address] [place] [address] Referral ID Status Reason Start Date Expiration Date Visits Re quested Visits Authorized [id number] Closed 08/22/2023 02/21/2024 999 0 Encounter Details [...] (Oral) 1981,04/11 Pneumococcal Conjugate Vacci ne, 20-valent ([id number]) 11/17/2022 Seasonal Influenza, PF, 6 M & [...] [address] [place] [address] 11/03/2023 1:00 PM EST Office Visit Home Dialysis [address] [place] [address] [facility], Peritoneal Dialysis [address] [place] [address] 11/10/2023 8:00 AM EST Treatment Home Dialysis [address], [place] [address] Nurse, Lance [employer] [facility] [address], [place] [address] 11/10/2023 1:00 PM EST Nurse Only Home Dialysis [address] [place], [place] [address] Nurse, Lance [employer] [facility] [address] [place] [address] 12/04/2023 1:00 PM EDT Office Visit Home Dialysis [address] [place] [address] [facility] [address] [facility] [place], [place] [address] 12/11/2023 8:00 AM EDT Treatment Home Dialysis [address] [place], [place] [address] Nurse, Health [employer]ter [facility] [address], [place] [address] 12/11/2023 1:00 PM EDT Nurse Only Home Dialysis [address] [place], [place] [address] Nurse, Health [employer] [facility] [address] [place] [address] 12/26/2023 1:00 PM EDT Office Visit Home Dialysis [address], [place] [address] [facility] Dialysis [address] [place] [facility] [address] 01/10/2024 8:00 AM EDT Treatment Home Dialysis [facility] [place], [place] [address] Nurse, [address] [facility] [address] [place] [address] 01/10/2024 1:00 PM EDT Nurse Only Home Dialysis [address] [place], [place] [address] Nurse, [address] [employer] [address] [place] [address] 02/08/2024 1:00 PM EDT Office Visit Home Dialysis [address] [place] [address] [facility] [address] [place] [address] 02/10/2024 8:00 AM EDT Treatment Home Dialysis [facility], [place] [phone] Nurse, Lance [employer] [address] [place] [address] 02/12/2024 1:00 PM EDT Nurse Only Home Dialysis [address] [place], [place] [phone] Nurse, Lance Lopez [employer] [address] [place] [address] 03/05/2024 1:00 PM EDT Office Visit Home Dialysis [address] [place] [address] [facility] [address] [facility] [place] [address] 03/11/2024 8:00 AM EDT Treatment Home Dialysis [facility] [place] [address] Nurse, [address] [facility] [address] [place] [address] 03/11/2024 1:00 PM EDT Nurse Only Home Dialysis [address] [place] [address] Nurse, [address] [place] [address] 03/19/2024 1:00 PM EDT Office Visit Home Dialysis [facility] [place] [address] [facility] [address] [place] [address] 04/11/2024 8:00 AM EDT Treatment Home Dialysis [facility], [place] [phone] Nurse, [address] [facility] [place] [address] 04/11/2024 1:00 PM EDT Nurse Only Home Dialysis [facility] [place], [place] [phone] Nurse, [address] [employer] [address] [place] [address] 04/29/2024 1:00 PM EDT Office Visit Home Dialysis [facility] [place] [address] [facility] [address] [place] [address] 05/12/2024 8:00 AM EDT Treatment Home Dialysis [facility] [place] [address] Nurse, [address] [employer] [address] [place] [address] 05/14/2024 1:00 PM EDT Nurse Only Home Dialysis [address] [place] [address] Nurse, [address] [employer] [address] [place] [address] 06/07/2024 1:00 PM EDT Office Visit Home Dialysis [facility], [place] [address] [facility], Peritoneal Dialysis [address] [place] [address] 06/11/2024 8:00 AM EDT Treatment Home Dialysis [facility] [place], [place] [address] Nurse, LanceGet In [facility] [address], [place] [address] 06/11/2024 1:00 PM EDT Nurse Only Home Dialysis [address] [place], [place] [phone] Nurse, Lancebaltazar Bee [address], [place] [address] 06/25/2024 1:00 PM EDT Office Visit Home Dialysis [facility], [place] [address] [facility] [address] [place] [address] 07/12/2024 8:00 AM EDT Treatment Home Dialysis [facility] [place], [place] [address] Nurse, [address] [employer] [address], [place] [address] 07/12/2024 1:00 PM EDT Nurse Only Home Dialysis [address], [place] [address] Nurse, Lance [employer] [address] [place] [address] 07/22/2024 1:00 PM EST Office Visit Home Dialysis [facility], [place] [address] [facility], Peritoneal Dialysis [address] [place] [address] 08/11/2024 8:00 AM EST Treatment Home Dialysis [facility], [place] [phone] Nurse, Lance [employer] [address], [place] [id number] 08/12/2024 1:00 PM EST Nurse Only Home Dialysis [facility] [phone] Nurse, Health Plotter [employer] [address], [place] [address] 08/20/2024 1:00 PM EST Office Visit Home Dialysis [facility], [place] [phone] Mdc, Peritoneal Dialysis [address] [place] [id number] Health Maintenance Due Date Last Done Comments [...] Advance Directives occurred with: Patient Care Teams Fine Craft Artist Relationship Specialty Start Date End Date Tomer Garner MD [address] [place] [address] PCP - General 09/19/02 documented as of this encounter
--- OUTSIDE RECORDS SUMMARY | 2024-03-17 14:33 | External Medical Summary | Summary of Care ---
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 chronic kidney disease, not on chronic dialysis (HCC) Procedures [place] EPOETIN PITER, NON-ESRD [place] EPOETIN PITER, 100 UNITS ESRD Yonny Saldivar MD [address] [place] [address] [address] [place] [id number] Referral ID Status Reason Start Date Expiration Date Visits Re quested Visits Authorized [id number] Closed 08/22/2023 02/21/2024 999 0 Encounter Details [...] as of this encounter (statuses as of 10/12/2023) Medications Medication Sig Dispensed Refills Start Date [...] as of this encounter (statuses as of 10/12/2023) Active Problems Problem Noted Date Diagnosed Date [...] as of this encounter (statuses as of 10/12/2023) Resolved Problems Problem Noted Date Diagnosed Date Resolved Date Dyslipidemia, goal to be determined 08/27/2009 11/21/2013 Overview: Per Lipid Taxonomy. PURE HYPERCHOLESTEROLEM 04/25/200208/11 Overview: Per Lipid Taxonomy. 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 1 Hemoptysis 04/11/1996 08/11/1996 Overview: ICD-10 update of inactive term documented as of this encounter (statuses as of 10/12/2023) Immunizations Name Administration Dates Next Due COVID-19 mRNA, LNP-s, No Pre serve, 2-Dose Series (Moderna) 11/23/2020,10/18/2020 DTP Vaccine 1981,1981,1981 HEP B - Hepatitis B (Dialysis/Immumocomp Pt) 05/02/2023,04/04/2023 MMR - Measles/Mumps/Rubella Vaccine 05/11/1982 OPV - Polio Virus Vaccine (Oral) 1981,04/11 Pneumococcal Conjugate Vacci ne, 20-valent ([id number]) 11/17/2022 Seasonal Influenza, PF, 6 M & [...] [facility] [place] [address] 11/03/2023 1:00 PM EST Office Visit Home Dialysis [facility] [address] [place] [address] Mdc, Peritoneal Dialysis [address] [place] [address] 11/10/2023 8:00 AM EST Treatment Home Dialysis [facility] [place], [place] [address] Nurse, Lance [employer] [facility]al [address] [place], [place] [address] 11/10/2023 1:00 PM EST Nurse Only Home Dialysis [facility] [place], [place] [address] Nurse, Lance [employer] Cristal [address] [place] [address] 12/04/2023 1:00 PM EDT Office Visit Home Dialysis [facility] [address] [place] [address] [facility] [place] [address] [facility] [place], [place] [address] 12/11/2023 8:00 AM EDT Treatment Home Dialysis [facility] [address] [place], [place] [address] Nurse, nodila Cristal [address] [place], [place] [address] 12/11/2023 1:00 PM EDT Nurse Only Home Dialysis [facility] [place], [place] [address] Nurse, nodila Cristal [address] [place] [address] 12/26/2023 1:00 PM EDT Office Visit Home Dialysis [facility] [address] [place], [place] [address] [facility] [place] [address] [place] [facility] [place] [address] 01/10/2024 8:00 AM EDT Treatment Home Dialysis Ham[facility] [address] [place], [place] [address] Nurse, Lance [address] [facility] [address] [place] [address] 01/10/2024 1:00 PM EDT Nurse Only Home Dialysis [address]mah [address] [place], [place] [address] Nurse, Lance [address] [employer] [address] [place] [address] 02/08/2024 1:00 PM EDT Office Visit Home Dialysis [facility] [address] [place] [address] [facility] [place] [address] [place] [address] 02/10/2024 8:00 AM EDT Treatment Home Dialysis [facility] [address] [place], [place] [phone] Nurse, Lance [employer] Cristal [address] [place] [address] 02/12/2024 1:00 PM EDT Nurse Only Home Dialysis Hamz[address] [place], [place] [phone] Nurse, Lance Lopez [employer] [address] [place] [address] 03/05/2024 1:00 PM EDT Office Visit Home Dialysis [facility] [address] [place] [address] [facility] [place] [address] [facility] [place] [address] 03/11/2024 8:00 AM EDT Treatment Home Dialysis [facility] [address] [place] [address] Nurse, Lance [address] [facility] [address] [place] [address] 03/11/2024 1:00 PM EDT Nurse Only Home Dialysis Ham[address] [address] [place] [address] Nurse, Lance [address] [facility] [address] [place] [address] 03/19/2024 1:00 PM EDT Office Visit Home Dialysis [facility] [address] [place] [address] [facility] [place] [address] [place] [address] 04/11/2024 8:00 AM EDT Treatment Home Dialysis Hamzah [address] [place], [place] [phone] Nurse, Lance Drive [facility] [address] [place] [address] 04/11/2024 1:00 PM EDT Nurse Only Home Dialysis Hamz[facility] [address] [place], [place] [phone] Nurse, Lance Drive [employer] [address] [place] [address] 04/29/2024 1:00 PM EDT Office Visit Home Dialysis [facility] [address] [place] [address] [facility] [place] [address] [place] [address] 05/12/2024 8:00 AM EDT Treatment Home Dialysis Hamz[facility] [address] [place] [address] Nurse, Lance [address] [employer] [address] [place] [address] 05/14/2024 1:00 PM EDT Nurse Only Home Dialysis [facility] [place] [address] Nurse, Lance [address] [employer] [address] [place] [address] 06/07/2024 1:00 PM EDT Office Visit Home Dialysis [facility] [address] [place], [place] [address] Mdc, Peritoneal Dialysis [address] [place] [address] 06/11/2024 8:00 AM EDT Treatment Home Dialysis [facility] [address] [place], [place] [address] Nurse, [employer] Cristal [address], [place] [address] 06/11/2024 1:00 PM EDT Nurse Only Home Dialysis [facility] [address] [place], [place] [phone] Nurse, Lancebaltazar Bee [address], [place] [address] 06/25/2024 1:00 PM EDT Office Visit Home Dialysis [facility] [address], [place] [address] [facility] [place] [address] [place] [address] 07/12/2024 8:00 AM EDT Treatment Home Dialysis [facility] [address] [place], [place] [address] Nurse, Lance [address] [facility] [address] [place], [place] [address] 07/12/2024 1:00 PM EDT Nurse Only Home Dialysis [facility] [address] [place], [place] [address] Nurse, Lance [employer] [facility]al [address] [place] [address] 07/22/2024 1:00 PM EST Office Visit Home Dialysis [facility] [address] [place], [place] [address] Mdc, Peritoneal Dialysis [address] [place] [address] 08/11/2024 8:00 AM EST Treatment Home Dialysis [facility] [address], [place] [phone] Nurse, Lance [employer] [facility] [address], [place] [id number] 08/12/2024 1:00 PM EST Nurse Only Home Dialysis Hamz[facility] [address] [id number] Nurse, nodila [employer] [address] [place], [place] [address] 08/20/2024 1:00 PM EST Office Visit Home Dialysis [facility] [address] [place], [place] [phone] Mdc, Peritoneal Dialysis [address] [place] [id number] Health Maintenance Due Date Last Done Comments [...] Advance Directives occurred with: Patient Care Teams Acquisition Consultant Relationship Specialty Start Date End Date Tomer Garner MD [address] [place] [address] PCP - General 09/19/02 documented as of this encounter
--- OUTSIDE RECORDS SUMMARY | 2024-03-17 14:34 | External Medical Summary | Summary of Care ---
Author Name Unknown Organization [facility] Address [address] [place] [address] Phone [phone] Care Team Providers Care Manager Community Outreach Name Role Phone Tomer Garner MD Primary Care Provider Reason for Visit * Reason Onset Date Comments Advice 10/10/2023 Encounter Details Date Type Department Care Team ([facility] st Contact Info) Description 10/10/2023 Telephone Home Dialysis Lance Fern[address] [place] [address] [place] [address] Akosua Lopez MD [address] [place] [address] Advice Allergies No known active allergiesdocumented as of this encounter (statuses as of 10/10/2023) Medications Medication Sig Dispensed Refills Start Date [...] as of this encounter (statuses as of 10/10/2023) Active Problems Problem Noted Date Diagnosed Date [...] as of this encounter (statuses as of 10/10/2023) Resolved Problems Problem Noted Date Diagnosed Date Resolved Date Dyslipidemia, goal to be determined 08/27/2009 11/21/2013 Overview: Per Lipid Taxonomy. PURE HYPERCHOLESTEROLEM 04/25/200208/11 Overview: Per Lipid Taxonomy. 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 1 Hemoptysis 04/11/1996 08/11/1996 Overview: ICD-10 update of inactive term documented as of this encounter (statuses as of 10/10/2023) Immunizations Name Administration Dates Next Due COVID-19 mRNA, LNP-s, No Pre serve, 2-Dose Series (Moderna) 11/23/2020,10/18/2020 DTP Vaccine 1981,1981,1981 HEP B - Hepatitis B (Dialysis/Immumocomp Pt) 05/02/2023,04/04/2023 MMR - Measles/Mumps/Rubella Vaccine 05/11/1982 OPV - Polio Virus Vaccine (Oral) 1981,04/11 Pneumococcal Conjugate Vacci ne, 20-valent ([id number]) 11/17/2022 Seasonal Influenza, PF, 6 M & [...] Telephone Encounter - Karrie Russo TECH - 10/10/2023 2:19 PM EST Spoke to pt to remind them of their monthly lab appt on 10/12/23 @ 1pm. documented in this encounter Plan of Treatment Upcoming Encounters Date Type Department Care Team (Late st Contact Info) Description 09/28/2023 Plan of Care Documentation Home Dialysis [facility]au [address] [id number] 10/12/2023 8:00 AM EST Treatment Home Dialysis Clau [address] [id number] Nurse, [employer] [facility] [address] [place] [address] 10/12/2023 1:00 PM EST Nurse Only Home Dialysis Clau [address] [phone] Nurse, [place] [address] 11/03/2023 1:00 PM EST Office Visit Home Dialysis Clau [address] [place] [address] [facility] [place] [address] [facility] [place] [id number] 11/10/2023 8:00 AM EST Treatment Home Dialysis Clau [address] [phone] Nurse, [place] [address] 11/10/2023 1:00 PM EST Nurse Only Home Dialysis Clau [address] [place] [address] Nurse, Lance [address] [employer] [address] [place] [address] 12/04/2023 1:00 PM EDT Office Visit Home Dialysis Clau [address], [place] [address] [facility] [place]ialysis [address] [place] [address] 12/11/2023 8:00 AM EDT Treatment Home Dialysis Clau [address], [place] [address] Nurse, Lance [address] [facility] [address] [place] [address] 12/11/2023 1:00 PM EDT Nurse Only Home Dialysis Clau [address] [place], [place] [phone] Nurse, Lance Drive [facility] [address] [place] [address] 12/26/2023 1:00 PM EDT Office Visit Home Dialysis Clau [address] [place] [address] [facility] [place] [address] [facility] [place] [address] 01/10/2024 8:00 AM EDT Treatment Home Dialysis Clau [address] [place], [place] [address] Nurse, Lance [address] [employer] [address] [place] [address] 01/10/2024 1:00 PM EDT Nurse Only Home Dialysis Clau [address] [place] [address] Nurse, Lance [address] [employer] [address] [place] [address] 02/08/2024 1:00 PM EDT Office Visit Home Dialysis Clau [address] [place], [place] [address] Mdc, Peritoneal Dialysis [address] [place] [address] 02/10/2024 8:00 AM EDT Treatment Home Dialysis Clau [address] [place], [place] [address] Nurse, Lance [address] [facility] [address] [place], [place] [address] 02/12/2024 1:00 PM EDT Nurse Only Home Dialysis Clau [address] [place], [place] [phone] Nurse, Lance Drive [facility] [address] [place], [place] [address] 03/05/2024 1:00 PM EDT Office Visit Home Dialysis Clau [address] [place], [place] [address] [facility] [place] [address] [facility] [place] [address] 03/11/2024 8:00 AM EDT Treatment Home Dialysis Clau [address] Dr [address] [place], [place] [address] Nurse, Lance [address] [facility] [address] [place] [address] 03/11/2024 1:00 PM EDT Nurse Only Home Dialysis Clau [address] [place], [place] [address] Nurse, Lance [address] [facility] [address] [place] [address] 03/29/2024 1:00 PM EDT Office Visit Home Dialysis Clau [address] [place], [place] [address] [facility] [place] [address] [place] [address] 04/11/2024 8:00 AM EDT Treatment Home Dialysis Clau [address] [place] [address] Nurse, Lance [address] [employer] [address] [place], [place] [address] 04/11/2024 1:00 PM EDT Nurse Only Home Dialysis Clau [address] [place], [place] [phone] Nurse, Lance Drive [employer] [address] [place], [place] [address] 04/29/2024 1:00 PM EDT Office Visit Home Dialysis Clau [address] [place], [place] [phone] [facility] [place] [address] [place] [address] 05/12/2024 8:00 AM EDT Treatment Home Dialysis Clau [address] [place], [place] [phone] Nurse, Lance [address] [employer] [address] [place] [address] 05/14/2024 1:00 PM EDT Nurse Only Home Dialysis Cl[facility] [address] [place] [address] Nurse, Lance [address] [employer] [address] [place] [address] 06/07/2024 1:00 PM EDT Office Visit Home Dialysis Clau [address] [place] [address] [facility] [place] [address] [place] [address] 06/11/2024 8:00 AM EDT Treatment Home Dialysis Clau [address] [facility] [address] [place], [place] [phone] Nurse, Lance [address] [employer] [address] [place], [place] [address] 06/11/2024 1:00 PM EDT Nurse Only Home Dialysis Cl[facility] [address] [place], [place] [address] Nurse, Lance [address] [employer] [address] [place], [place] [address] 06/25/2024 1:00 PM EDT Office Visit Home Dialysis Clau [address], [place] [address] [facility] [place] [address] [place] [address] 07/12/2024 8:00 AM EDT Treatment Home Dialysis Clau [address] [facility] [address] [place], [place] [phone] Nurse, Lance [address] [facility] [address] [place], [place] [address] 07/12/2024 1:00 PM EDT Nurse Only Home Dialysis Clau [address] [place], [place] [phone] Nurse, Lance Drive [employer] [address] [place], [place] [address] 07/22/2024 1:00 PM EST Office Visit Home Dialysis Clau [address], [place] [address] [facility] [place] [address] [place] [address] 08/11/2024 8:00 AM EST Treatment Home Dialysis [facility]au [address] [place], [place] [address] Nurse, Lance [address] [facility] [address] [place], [place] [address] 08/12/2024 1:00 PM EST Nurse Only Home Dialysis [facility]au [address] [place], [place] [phone] Nurse, Lance Drive [employer] [address] [place], [place] [address] 08/28/2024 1:00 PM EST Office Visit Home Dialysis Clau [address] [place] [address] Mdc, Peritoneal Dialysis [address] [place] [address] Health Maintenance Due Date Last Done Comments [...] Directives occurred with: Patient Care Teams Manager Community Outreach Relationship Specialty Start Date End Date Tomer Garner MD [address] [place] [address] PCP - General 09/19/02 documented as of this encounter
--- OUTSIDE RECORDS SUMMARY | 2024-03-17 14:34 | External Medical Summary | Summary of Care ---
Author Name Unknown Organization [facility] Address [address] [place] [address] Phone [phone] Care Team Providers Care Logging Crew Foreman Name Role Phone Tomer Garner MD Primary Care Provider Reason for Visit * Reason Comments Hemodialysis * Episode Based Medications (Routine) - Closed Specialty Diagnoses / Procedures Referred By Contac t Referred To Contact Diagnoses ESRD on peritoneal dialysis (HCC) 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 chronic kidney disease, not on chronic dialysis (HCC) Procedures [place] EPOETIN PITER, NON-ESRD [place] EPOETIN PITER, 100 UNITS ESRD Yonny Saldivar MD [address] [place] [address] [address] [place] [address] Referral ID Status Reason Start Date Expiration Date Visits Re quested Visits Authorized [id number] Closed 08/22/2023 02/21/2024 999 0 Encounter Details Date Type Department Care Team (Late st Contact Info) Description 08/17/2023 5:30 AM EST Treatment Hemodialysis Clau Lucas [...] (Oral) 1981,04/11 Pneumococcal Conjugate Vacci ne, 20-valent ([id number]) 11/17/2022 Seasonal Influenza, PF, 6 M & [...] Sign Reading Time Taken Comments Blood Pressure 115/69 08/17/2023 9:37 AM EST Pulse 77 08/17/2023 9:37 AM EST Temperature 36.6 C (97.9 F) 08/17/2023 9:37 AM ES T Respiratory Rate 16 08/17/2023 9:37 AM EST Oxygen Saturation - - Inhaled [...] [facility]au [address] Dr [address] [id number] 10/12/2023 8:00 AM EST Treatment Home Dialysis [facility] [address] [id number] Nurse, Lance Jessica Bee [address] [id number] 11/03/2023 1:00 PM EST Office Visit Home Dialysis Clau [address] [phone] Mdc, Peritoneal Dialysis [address] [facility] [place] [id number] 11/10/2023 8:00 AM EST Treatment Home Dialysis [facility] [address] [phone] Nurse Lancebaltazar Bee [address] [id number] 11/10/2023 1:00 PM EST Nurse Only Home Dialysis Clau [address] [phone] Nurse, [employer] [place], [place] [address] 12/04/2023 1:00 PM EDT Office Visit Home Dialysis Clau [address] [place], [place] [address] [facility] [place] [address] [place] [address] 12/11/2023 8:00 AM EDT Treatment Home Dialysis Clau [address] [facility] [address] [place], [place] [address] Nurse, Lance [address] [employer] [address] [place] [address] 12/11/2023 1:00 PM EDT Nurse Only Home Dialysis Clau [address] [place], [place] [phone] Nurse, [employer] [address] [place] [place], [place] [address] 12/26/2023 1:00 PM EDT Office Visit Home Dialysis Clau [address] [place], [place] [address] [facility] [place] Per[place] Dialysis [address] [place] [address] 01/10/2024 8:00 AM EDT Treatment Home Dialysis Clau [address] [facility] [address] [place], [place] [phone] Nurse, Lance [employer] [facility] [place], [place] [address] 01/10/2024 1:00 PM EDT Nurse Only Home Dialysis Clau Lucas Dr, Dr, [place] [phone] Nurse, Lance [address] [facility] [address] [place], [place] [address] 02/08/2024 1:00 PM EDT Office Visit Home Dialysis Clau [address] [place], [place] [address] [facility] [place] Peritoneal Dialysis [address] [facility] [place] [address] 02/10/2024 8:00 AM EDT Treatment Home Dialysis Clau [address] [place], [place] [address] Nurse, Lance [address] [employer] [address] [place], [place] [address] 02/12/2024 1:00 PM EDT Nurse Only Home Dialysis Clau [address] [place], [place] [address] Nurse, Lance [address] [employer] [address] [place], [place] [address] 03/05/2024 1:00 PM EDT Office Visit Home Dialysis Clau [address] [place], [place] [address] [facility] [place] Peritoneal Dialysis [address] [facility], [place] [address] 03/11/2024 8:00 AM EDT Treatment Home Dialysis Clau [address] [place], [place] [address] Nurse, [employer] [facility] [address] [place], [place] [address] 03/11/2024 1:00 PM EDT Nurse Only Home Dialysis Clau [address] [place], [place] [address] Nurse, [employer] [address] [place], [place] [address] 03/19/2024 1:00 PM EDT Office Visit Home Dialysis Clau [address] [place], [place] [address] [facility] [place] Peritoneal Dialysis [address] [place] [facility] [place] [address] 04/11/2024 8:00 AM EDT Treatment Home Dialysis Clau [address] [place], [place] [address] Nurse, Lance [address] [employer] [address] [place] [address] 04/11/2024 1:00 PM EDT Nurse Only Home Dialysis [facility] [address] [place], [place] [address] Nurse, Lance [address] [facility] [address] [place] [address] 04/29/2024 1:00 PM EDT Office Visit Home Dialysis Clau [address] [place] [address] Mdc, Peritoneal Dialysis [address] [place] [address] 05/12/2024 8:00 AM EDT Treatment Home Dialysis Clau [address] [facility] [address] [place], [place] [phone] Nurse, Lance [address] [facility] [address] [place] [address] 05/14/2024 1:00 PM EDT Nurse Only Home Dialysis Clau [address] [place], [place] [phone] Nurse, Lance [address] [employer] [address] [place] [address] 06/07/2024 1:00 PM EDT Office Visit Home Dialysis Clau [address] [place], [place] [address] [facility] [place] Per[place] Dialysis [address] [place] [address] 06/11/2024 8:00 AM EDT Treatment Home Dialysis Clau [facility] [address] [place], [place] [phone] Nurse, Lance [address] [employer] [address] [place] [address] 06/11/2024 1:00 PM EDT Nurse Only Home Dialysis Clau [address] [place] [address] Nurse, Lance [address] [employer] [address] [place], [place] [address] 06/25/2024 1:00 PM EDT Office Visit Home Dialysis Clau [address] [place], [place] [address] Mdc, Peritoneal Dialysis [address] [place] [address] 07/12/2024 8:00 AM EDT Treatment Home Dialysis Clau [address] [place], [place] [phone] Nurse, Lance [address] [employer] [address] [place], [place] [address] 07/12/2024 1:00 PM EDT Nurse Only Home Dialysis Clau [address] [facility] [address], [place] [address] Nurse, Lance [address] [employer] [address] [place] [address] 07/22/2024 1:00 PM EST Office Visit Home Dialysis Clau [address] [place], [place] [address] [facility] [place] [place] Dialysis [address] [place] [address] 08/11/2024 8:00 AM EST Treatment Home Dialysis Clau [address] [place], [place] [address] Nurse, Lance [address] [employer] [address] [place] [address] 08/12/2024 1:00 PM EST Nurse Only Home Dialysis Clau [address] [place] [address] Nurse, Lance [address] [employer] [address] [place], [place] [address] 08/20/2024 1:00 PM EST Office Visit Home Dialysis Clau [address] [place] [address] Mdc, Peritoneal Dialysis [address] [facility] [place] [address] Health Maintenance Due Date Last Done Comments COVID-19 Vaccine (3 - Moderna risk series) 12/21/2020 11/23/2020, 10/18/2020 Hepatitis B (3 of 4 - Risk Dialysis Recombivax 3-dose series) 10/05/2023 05/02/2023, 04/04/2023 Depression Screening 11/18/2023 11/17/2022 Lipid Panel 05/18/2026 05/18/2021, 1209/2009, 11/11/2004, Additional history exists Diabetes Screening 05/22/2026 [...] mcg 4 mcg, Intravenous, ONCE, On Marylu 08/17/23 at 0700, For 1 dose Given 08/17/2023 8:27 AM EST 4 mcg hEParin 1,000 unit/mL infusion for dialysis 500 Units/hr (0.5 mL/hr), Hemodialysis, CONTINUOUS, Starting on Marylu 08/17/23 at 0700, Until Marylu 08/17/23 at 1445, Maintenance: Stop 1 hour before dialysis end in AVF/AVG. Continue through dialysis in CVC. The total delivered dose is approximately 2,500 to 5,000 units, based on weight and treatment duration assumptions New Bag 08/17/2023 8:26 AM EST 500 Units/hr 0.5 mL/hr hEParin 1000 UNIT/ML inj 2,000 Units 2,000 Units, Intravenous, ONCE, On Marylu 08/17/23 at 0700, For 1 dose, Loading dose Given 08/17/2023 8:26 AM EST 2,000 Units Iron Sucrose (Venofer) inj 100 mg 100 mg, Intravenous, ONCE, 1 dose, On Marylu 08/17/23 at 0700 Given 08/17/2023 8:27 AM EST 100 mg sodium citrate 4% (Anticoagulant Sodium Citrate) inj 2.5 mL 2.5 mL, Dialysis catheter, ONCE, On Marylu 08/17/23 at 0700, For 1 dose, ARTERIAL For use only to lock dialysis catheter after dialysis Given 08/17/2023 8:27 AM EST 2.5 mL sodium citrate 4% (Anticoagulant Sodium Citrate) inj 2.5 mL 2.5 mL, Dialysis catheter, ONCE, On Marylu 08/17/23 at 0700, For 1 dose, VENOUS For use only to lock dialysis catheter after dialysis Given 08/17/2023 8:27 AM EST 2.5 mL documented in this [...] Advance Directives occurred with: Patient Care Teams Logging Crew Foreman Relationship Specialty Start Date End Date Tomer Garner MD [address] [place] [address] PCP - General 09/19/02 documented as of this encounter
--- OUTSIDE RECORDS SUMMARY | 2024-03-17 14:34 | External Medical Summary | Summary of Care ---
Author Name Unknown Organization [facility] Address [address] [facility] [place] [address] Phone [phone] Care Team Providers Care Cloud Engagement Partner Name Role Phone Tomer Garner MD Primary Care Provider [phone] Encounter Details Date Type Department Care Team (Late st Contact Info) Description 09/18/2023 9:30 AM EST Nurse Only Home Dialysis [...] on 08/31/2023 cycloSPORINE Modified 25 MG Oral CapsuleIndicatio ns:Kidney [...] 120 Tablet 3 08/01/2022 09/29/19 24 Discontinued documented as of this encounter [...] (Oral) 1981,04/11 Pneumococcal Conjugate Vacci ne, 20-valent ([id number]) 11/17/2022 Seasonal Influenza, PF, 6 M & [...] Sign Reading Time Taken Comments Blood Pressure 130/71 09/18/2023 9:38 AM EST Pulse 80 09/18/2023 9:38 AM EST Temperature 36.4 C (97.5 F) 09/18/2023 9:38 AM ES T Respiratory Rate 18 09/18/2023 9:38 AM EST Oxygen Saturation 96% 09/18/2023 9:38 AM EST Inhaled Oxygen Concentration - - Weight 130.7 kg (288 lb 3.2 oz) 09/18/2023 2:00 PM EST Height - - Body Mass Index 41.35 08/21/2023 1:26 PM EST documented in this [...] [address] [place] [address] [id number] 10/12/2023 8:00 AM EST Treatment Home Dialysis [address] [place] [address] [address] [id number] Nurse, [employer] [address] [place] [address] 10/12/2023 1:00 PM EST Nurse Only Home Dialysis [address] [place] [address] [address] [phone] Nurse, Lancebaltazar Bee [address] [place] [address] 11/03/2023 1:00 PM EST Office Visit Home Dialysis [address] [address] [place] [address] [phone] [facility] [place] [facility], Peritoneal Dialysis [address] [place] [id number] 11/10/2023 8:00 AM EST Treatment Home Dialysis [address] [place] [address] Nurse, Lance Jessica Bee [address] [place] [address] 11/10/2023 1:00 PM EST Nurse Only Home Dialysis [address] [place] [address] Nurse, Lance [address] [employer] [address] [place], [place] [address] 12/04/2023 1:00 PM EDT Office Visit Home Dialysis [address] [place], [place] [address] [facility], Peritoneal Dialysis [address] [place] [address] 12/11/2023 8:00 AM EDT Treatment Home Dialysis [facility] [place], [place] [phone] Nurse, Lance Drive [employer] [address] [place], [place] [address] 12/11/2023 1:00 PM EDT Nurse Only Home Dialysis [address] [place], [place] [phone] Nurse, Lance Drive [employer] [address] [place], [place] [address] 12/26/2023 1:00 PM EDT Office Visit Home Dialysis [address] [place], [place] [address] [facility] [place], Peritoneal Dialysis [address] [place] [address] 01/10/2024 8:00 AM EDT Treatment Home Dialysis [facility] [place], [place] [phone] Nurse, Lance Drive [facility] [address] [place], [place] [address] 01/10/2024 1:00 PM EDT Nurse Only Home Dialysis [address] [place], [place] [phone] Nurse, Lance Drive [employer] [address] [place], [place] 02/08/2024 1:00 PM EDT Office Visit Home Dialysis [address] [place], [place] [phone] [facility], Peritoneal Dialysis [address] [facility] [place] [address] 02/10/2024 8:00 AM EDT Treatment Home Dialysis [facility] [place], [place] [phone] Nurse, Lance Drive [facility] [address] [place], [place] 02/12/2024 1:00 PM EDT Nurse Only Home Dialysis Clau [address] [place], [place] [phone] Nurse, Lance Drive [employer] [address] [place], [place] 03/05/2024 1:00 PM EDT Office Visit Home Dialysis [address] [place], [place] [phone] [facility], Peritoneal Dialysis [address] [facility], [place] 03/11/2024 8:00 AM EDT Treatment Home Dialysis [address] [place], [place] [phone] Nurse, Lance Drive [facility] [address] [place], [place] [address] 03/11/2024 1:00 PM EDT Nurse Only Home Dialysis [address] [place], [place] [phone] Nurse, [employer] [place], [place] 03/29/2024 1:00 PM EDT Office Visit Home Dialysis [address] [place], [place] [phone] [facility], Peritoneal Dialysis [address] [facility] [place] [address] 04/11/2024 8:00 AM EDT Treatment Home Dialysis [address] [place], [place] [address] Nurse, Lance [employer] [address] [place], [place] [address] 04/11/2024 1:00 PM EDT Nurse Only Home Dialysis [address] [place], [place] [phone] Nurse, Lancebaltazar Lopez [facility] [address] [place], [place] 04/29/2024 1:00 PM EDT Office Visit Home Dialysis [address] [place], [place] [address] [facility], Peritoneal Dialysis [address] [place] [address] 05/12/2024 8:00 AM EDT Treatment Home Dialysis Clau [address] [place], [place] [phone] Nurse, Lance [employer] [address] [place], [place] [address] 05/14/2024 1:00 PM EDT Nurse Only Home Dialysis [address]au [address] [place], [place] [phone] Nurse, Lance [employer] [address] [place], [place] [address] 06/07/2024 1:00 PM EDT Office Visit Home Dialysis [address]au [address] [place], [place] [address] [facility], Peritoneal Dialysis [address] [place] [address] 06/11/2024 8:00 AM EDT Treatment Home Dialysis Clau [address] [phone] Nurse, Lance Drive [employer] [address] [place], [place] [address] 06/11/2024 1:00 PM EDT Nurse Only Home Dialysis [address] [place], [place] [address] Nurse, Lance [address] [facility] [address] [place] [address] 06/25/2024 1:00 PM EDT Office Visit Home Dialysis [address] [place] [address] [facility], Peritoneal Dialysis [address] [place] [address] 07/12/2024 8:00 AM EDT Treatment Home Dialysis [facility]au [address] [place], [place] [address] Nurse, [employer] [address] [place], [place] [address] 07/12/2024 1:00 PM EDT Nurse Only Home Dialysis [address] [place], [place] [address] Nurse, Lance Jessica [facility] [address] [place] [address] 07/22/2024 1:00 PM EST Office Visit Home Dialysis [address] [place], [place] [address] [facility], Peritoneal Dialysis [address] [place] [facility] [address] 08/11/2024 8:00 AM EST Treatment Home Dialysis [address]au [address] [place], [place] [address] Nurse, Lancebaltazar Bee [address] [place], [place] [address] 08/12/2024 1:00 PM EST Nurse Only Home Dialysis [address] [place] [address] [address] Nurse, Lance [address] [facility] [address] [place] [address] 08/28/2024 1:00 PM EST Office Visit Home Dialysis [address] [place] [address] [phone] [facility], Peritoneal Dialysis [address] [facility] [place] [address] Scheduled Orders Name Type Priority Associated Diagnoses Orde r Schedule CCPD TRAINING Procedures Routine ESRD on peritoneal dialysis (HCC) Ordered: 10/10/2023 Health Maintenance Due Date Last Done Comments [...] Advance Directives occurred with: Patient Care Teams Cloud Engagement Partner Relationship Specialty Start Date End Date Tomer Garner MD [address] [place] [address] PCP - General 09/19/02 documented as of this encounter
--- OUTSIDE RECORDS SUMMARY | 2024-03-17 14:34 | External Medical Summary | Summary of Care ---
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 chronic kidney disease, not on chronic dialysis (HCC) Procedures ND EPOETIN PITER, NON-ESRD ND EPOETIN PITER, 100 UNITS ESRD Yonny Saldivar MD [address] [place] [address] [address] [place] [address] Referral ID Status Reason Start Date Expiration Date Visits Re quested Visits Authorized [id number] Closed 08/22/2023 02/21/2024 999 0 Encounter Details [...] (Oral) 1981,04/11 Pneumococcal Conjugate Vacci ne, 20-valent ([id number]) 11/17/2022 Pneumococcal Polysaccharide PPV23 (Pneumovax) 02/03/2004 Seasonal [...] [address]au [address] Dr [address] [place] [address] [id number] 10/12/2023 8:00 AM EST Treatment Home Dialysis [facility] [address] [place] [address] NurseLance [address] [place] [address] 11/03/2023 1:00 PM EST Office Visit Home Dialysis [address]au [address] [place] [address] [phone] [facility], Peritoneal Dialysis [address] [facility] [place] [address] 11/10/2023 8:00 AM EST Treatment Home Dialysis Clau [address] [phone] Nurse, Lance Drive [employer] [address] [place] [address] 11/10/2023 1:00 PM EST Nurse Only Home Dialysis Clau [address] [place], [place] [address] Nurse, Lance [address] [facility] [address] [place] [address] 12/04/2023 1:00 PM EDT Office Visit Home Dialysis [address]au [address] [place], [place] [phone] [facility] Peritoneal Dialysis [address] [place] [address] 12/11/2023 8:00 AM EDT Treatment Home Dialysis Clau [address] [place], [place] [address] Nurse, Lance [address] [employer] [address] [place] [address] 12/11/2023 1:00 PM EDT Nurse Only Home Dialysis Clau [address] [place], [place] [phone] Nurse, Lance Drive [employer] [address] [place] [address] 12/26/2023 1:00 PM EDT Office Visit Home Dialysis Clau [address] [place] [address] [facility], Peritoneal Dialysis [address] [place] [place] [address] 01/10/2024 8:00 AM EDT Treatment Home Dialysis Clau [address] [place], [place] [address] Nurse, Lance [address] [employer] [address] [place] [address] 01/10/2024 1:00 PM EDT Nurse Only Home Dialysis [address], [place] [address] Nurse, Lance Drive [employer] [address] [place] [address] 02/08/2024 1:00 PM EDT Office Visit Home Dialysis Clau [address] [place], [place] [address] [facility] Peritoneal Dialysis [address] [place] [address] 02/10/2024 8:00 AM EDT Treatment Home Dialysis Clau [address] [place] [address] Nurse, Lance [address] [employer] [address] [place] [address] 02/12/2024 1:00 PM EDT Nurse Only Home Dialysis Clau [address] [place], [place] [phone] Nurse, Lance [address] [employer] [address] [place], [place] [address] 03/05/2024 1:00 PM EDT Office Visit Home Dialysis [address]au [address] [place] [address] [facility] Peritoneal Dialysis [address] [facility] [place] [address] 03/11/2024 8:00 AM EDT Treatment Home Dialysis Clau [address] [place], [place] [address] Nurse, Lance [address] [employer] [address] [place] [address] 03/11/2024 1:00 PM EDT Nurse Only Home Dialysis [address] [place] [address] Nurse, Lance [address] [employer] [address] [place] [address] 03/19/2024 1:00 PM EDT Office Visit Home Dialysis [address]au [address] [place], [place] [address] [facility], Peritoneal Dialysis [address] [place] [address] 04/11/2024 8:00 AM EDT Treatment Home Dialysis Cl[address] [place], [place] [address] Nurse, Lance [employer] [facility]al [address] [place], [place] [address] 04/11/2024 1:00 PM EDT Nurse Only Home Dialysis Clau [address] [place], [place] [phone] Nurse, Lance Drive [facility] [address] [place], [place] [address] 04/29/2024 1:00 PM EDT Office Visit Home Dialysis [address]au [address] [place], [place] [address] [facility] Peritoneal Dialysis [address] [place] [address] 05/12/2024 8:00 AM EDT Treatment Home Dialysis [address] [place], [place] [phone] Nurse, Lance [employer] [address] [place], [place] [address] 05/14/2024 1:00 PM EDT Nurse Only Home Dialysis [address] [place], [place] [address] Nurse, Lance [employer] [address] [place] [address] 06/07/2024 1:00 PM EDT Office Visit Home Dialysis [address] [place], [place] [address] [facility] Peritoneal Dialysis [address] [place] [address] 06/11/2024 8:00 AM EDT Treatment Home Dialysis [address] [place], [place] [address] Nurse, Lance Lopez [facility] [address] [place], [place] [address] 06/11/2024 1:00 PM EDT Nurse Only Home Dialysis [address] [place], [place] [phone] Nurse, Lance Lopez [facility] [address] [place], [place] [address] 06/25/2024 1:00 PM EDT Office Visit Home Dialysis [address] [place], [place] [address] [facility] Peritoneal Dialysis [address] [place] [address] 07/12/2024 8:00 AM EDT Treatment Home Dialysis [address] [place], [place] [phone] Nurse, Lance Lopez [facility] [address] [place], [place] [address] 07/12/2024 1:00 PM EDT Nurse Only Home Dialysis [address] [place], [place] [address] Nurse, Lance Lopez [facility] [address] [place], [place] [address] 07/22/2024 1:00 PM EST Office Visit Home Dialysis [address] [place], [place] [address] [facility] Peritoneal Dialysis [address] [place] [address] 08/11/2024 8:00 AM EST Treatment Home Dialysis [address] [place], [place] [phone] Nurse, Lance Lopez [facility] [address] [place], [place] [address] 08/12/2024 1:00 PM EST Nurse Only Home [...] LAB BLOOD ORDERAB LES Performing Organization Address City/[facility] Co de Phone Number LABORATORY [facility] [address] [place] [address] * ALKALINE PHOSPHATASE (08/22/2023 6:26 AM EST) Alkaline Phosphatase 68 35 - 130 U/L 08/22/2023 8:20 AM EST LAB[facility]ATORY [facility] Blood Venous blood specimen / Unknown Venipuncture / Unknown 08/22/2023 6:26 AM EST 08/22/2023 6:26 AM EST Yonny Saldivar MD LAB BLOOD ORDERAB LES Performing Organization Address [facility] Co de Phone Number LABORATORY [facility] [address] [place] [address] * HEPATITIS B SURFACE ANTIGEN (08/22/2023 6:26 AM EST) Pathologist [facility] Hepatitis B Surface Antigen Negative Negative 08/22/2023 10:07 AM EST LABORATORY [facility] Blood Venous blood specimen / Unknown Venipuncture / Unknown 08/22/2023 6:26 AM EST 08/22/2023 6:26 AM EST Yonny Saldivar MD LAB BLOOD ORDERAB LES Performing Organization Address City/[facility] Co de Phone Number LABORATORY [facility] [address] [place] [address] * (ABNORMAL) IRON SCREEN, INCLUDING TIBC (08/22/2023 6:26 AM EST) Pathologist [facility] Iron 84 45 - 176 ug/dL 08/22/2023 8:20 AM EST [facility]ORY [facility] Iron Binding Capacity 224(L) 250 - 425 ug/dL 08/22/2023 8:20 AM EST [facility] Transferrin Saturation Percent 38 15 - 55 % 08/22/2023 8:20 AM EST [facility] Blood Venous blood specimen / Unknown Venipuncture / Unknown 08/22/2023 6:26 AM EST 08/22/2023 6:26 AM EST Yonny Saldivar MD LAB BLOOD ORDERAB LES Performing Organization Address City/[facility]/ZIP Co de Phone Number LAB[facility]ATORY [facility] [address] [place] [address] * (ABNORMAL) CHLORIDE (08/22/2023 6:26 AM EST) Chloride 96(L) 98 - 107 mmol/L 08/22/2023 8:20 AM EST [facility] Blood Venous blood specimen / Unknown Venipuncture / Unknown 08/22/2023 6:26 AM EST 08/22/2023 6:26 AM EST Yonny Saldivar MD LAB BLOOD ORDERAB LES Performing Organization Address [facility] de Phone Number LAB[facility]ATORY [facility] [address] [place] [address] * (ABNORMAL) ADJUSTED CALCIUM PHOSPHORUS PRODUCT (08/22/2023 [...] BLOOD ORDERAB LES [facility] [address] [place] [address] * ALT (08/22/2023 6:26 AM EST) Pathologist [facility] ALT 14 10 - 50 U/L 08/22/2023 8:20 AM EST LABORATORY C Blood Venous blood specimen / Unknown Venipuncture / Unknown 08/22/2023 6:26 AM EST 08/22/2023 6:26 AM EST Yonny Saldivar MD LAB BLOOD ORDERAB LES LABORATORY [facility] [address] [place] [address] * CO2 (08/22/2023 6:26 AM EST) Pathologist [facility] CO2 25 22 - 32 mmol/L 08/22/2023 8:20 AM EST LABORATORY [facility] Blood Venous blood specimen / Unknown Venipuncture / Unknown 08/22/2023 6:26 AM EST 08/22/2023 6:26 AM EST Yonny Saldivar MD LAB BLOOD ORDERAB LES Performing Organization Address City/[facility]/ZIP Co de Phone Number LABORATORY [facility] [address] [place] [address] * SODIUM (08/22/2023 6:26 AM EST) [facility] Sodium 139 135 - 146 mmol/L 08/22/2023 8:20 AM EST LABORATORY [facility] Blood Venous blood specimen / Unknown Venipuncture / Unknown 08/22/2023 6:26 AM EST 08/22/2023 6:26 AM EST Yonny Saldivar MD LAB BLOOD ORDERAB LES LABORATORY [facility] [address] [place] [address] * PRE DIALYSIS BUN (08/22/2023 6:26 AM EST) Pathologist [facility] Pre-Dialysis BUN 71 mg/dL 08/22/2023 8:11 AM EST [facility]ORY [facility] Blood Venous blood specimen / Unknown Venipuncture / Unknown 08/22/2023 6:26 AM EST 08/22/2023 6:26 AM EST Yonny Saldivar MD LAB BLOOD ORDERAB LES [facility] [address] [place] [address] * (ABNORMAL) CBC (08/22/2023 6:26 AM EST) WBC 8.44 4.00 - 10.80 K/uL 08/22/2023 [...] LAB BLOOD ORDERAB LES Performing Organization Address City/[facility]/ZIP Co de Phone Number LABORATORY [facility] [address] [place] [address] * POTASSIUM (08/22/2023 6:26 AM EST) Potassium 4.4 3.5 - 5.1 mmol/L 08/22/2023 8:20 AM EST LABORATORY [facility] Blood Venous blood specimen / Unknown Venipuncture / Unknown 08/22/2023 6:26 AM EST 08/22/2023 6:26 AM EST Yonny Saldivar MD LAB BLOOD ORDERAB LES Performing Organization Address City/[facility] Co de Phone Number LABORATORY [facility] [address] [place] [address] * AST (08/22/2023 6:26 AM EST) AST 13 10 - 50 U/L 08/22/2023 8:20 AM EST LABORATORY [facility] Blood Venous blood specimen / Unknown Venipuncture / Unknown 08/22/2023 6:26 AM EST 08/22/2023 6:26 AM EST Yonny Saldivar MD LAB BLOOD ORDERAB LES Performing Organization Address City/[facility] Co de Phone Number LABORATORY [facility] [address] [place] [address] * (ABNORMAL) CREATININE (08/22/2023 6:26 AM EST) Creatinine 14.8(H) 0.6 - 1.2 mg/dL 08/22/2023 8:20 AM EST LABORATORY [facility] Estimated Glomerular Filtration Rate 4(L) >=60 mL/min 08/22/2023 8:20 AM EST LABORATORY [facility] Comment:eGFR is calculated b ased on the CKD-EPI 2020 equation Blood Venous blood specimen / Unknown Venipuncture / Unknown 08/22/2023 6:26 AM EST 08/22/2023 6:26 AM EST Yonny Saldivar MD LAB BLOOD ORDERAB LES LABORATORY [facility] [address] [place] [address] documented in this encounter Visit [...] Advance Directives occurred with: Patient Care Teams Pediatrician Active Practice Relationship Specialty Start Date End Date Tomer Garner MD [address] [place] [address] PCP - General 09/19/02 documented as of this encounter
--- OUTSIDE RECORDS SUMMARY | 2024-03-17 14:34 | External Medical Summary | Summary of Care ---
Author Name Unknown Organization [facility] Address [address] [place] [address] Phone [phone] Care Team Providers Care Academic Affairs Director Name Role Phone Tomer Garner MD Primary Care Provider [phone] Reason for Visit * Reason Comments Hemodialysis * Episode Based Medications (Routine) - Closed Specialty Diagnoses / Procedures Referred By Contac t Referred To Contact Diagnoses ESRD on peritoneal dialysis (HCC) 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 chronic kidney disease, not on chronic dialysis (HCC) Procedures [place] EPOETIN PITER, NON-ESRD [place] EPOETIN PITER, 100 UNITS ESRD Yonny Saldivar MD [address] [place] [address] [address] [place] [address] Referral ID Status Reason Start Date Expiration Date Visits Re quested Visits Authorized [id number] Closed 08/22/2023 02/21/2024 999 0 Encounter Details [...] (Oral) 1981,04/11 Pneumococcal Conjugate Vacci ne, 20-valent ([id number]) 11/17/2022 Pneumococcal Polysaccharide PPV23 (Pneumovax) 02/03/2004 Seasonal [...] [address] [id number] 11/03/2023 1:00 PM EST Office Visit Home Dialysis [facility] [address] [id number] Mdc, Peritoneal Dialysis [address] [place] [address] 11/10/2023 8:00 AM EST Treatment Home Dialysis [facility] [address] [phone] Nurse[facility]ance [address] [place] [address] 11/10/2023 1:00 PM EST Nurse Only Home Dialysis [facility] [place] [phone] Nurse, Lance [address] [employer] [address] [place], [place] [address] 12/04/2023 1:00 PM EDT Office Visit Home Dialysis [facility] [place], [place] [address] [facility], Peritoneal Dialysis [address] [place] [address] 12/11/2023 8:00 AM EDT Treatment Home Dialysis [facility] [address] [place], [place] [phone] Nurse, Lance [address] [facility] [address] [place], [place] 12/11/2023 1:00 PM EDT Nurse Only Home Dialysis [facility] [place], [place] [phone] Nurse, Lance [address] [facility] [address] [place], [place] [address] 12/26/2023 1:00 PM EDT Office Visit Home Dialysis [facility] [place] [address] [facility], Peritoneal Dialysis [address] [place] [address] 01/10/2024 8:00 AM EDT Treatment Home Dialysis [facility] [address] [place], [place] [phone] Nurse, Lance [address] [employer] [address] [place] [address] 01/10/2024 1:00 PM EDT Nurse Only Home Dialysis [facility] [place], [place] [phone] Nurse, Lance [address] [employer] [address] [place] [address] 02/08/2024 1:00 PM EDT Office Visit Home Dialysis [facility] [place], [place] [address] M[facility], Peritoneal Dialysis [address] [place] [address] 02/10/2024 8:00 AM EDT Treatment Home Dialysis [facility] [place] [address] Nurse, Lance [employer] [address], [place] [address] 02/12/2024 1:00 PM EDT Nurse Only Home Dialysis [facility] [place], [place] [address] Nurse, Lance [employer] [facility] [address], [place] [address] 03/05/2024 1:00 PM EDT Office Visit Home Dialysis [facility], [place] [address] [facility], Peritoneal Dialysis [address] [place] [address] 03/11/2024 8:00 AM EDT Treatment Home Dialysis [facility], [place] [phone] Nurse, [employer] [facility] [place] [address] 03/11/2024 1:00 PM EDT Nurse Only Home Dialysis [address] [place], [place] [address] Nurse, Lance [employer] [facility] [address] [place] [address] 03/19/2024 1:00 PM EDT Office Visit Home Dialysis [facility] [place], [place] [address] [facility], Peritoneal Dialysis [address] [place] [address] 04/11/2024 8:00 AM EDT Treatment Home Dialysis [facility] [place] [address] Nurse, [address] [employer] [address] [place], [place] [address] 04/11/2024 1:00 PM EDT Nurse Only Home Dialysis [facility] [place], [place] [address] Nurse, [address] [employer] [address] [place], [place] [address] 04/29/2024 1:00 PM EDT Office Visit Home Dialysis [facility] [address] [place], [place] [address] [facility], Peritoneal Dialysis [address] [place] [address] 05/12/2024 8:00 AM EDT Treatment Home Dialysis [facility] [address] [place], [place] [address] Nurse, [address] [employer] [address], [place] [address] 05/14/2024 1:00 PM EDT Nurse Only Home Dialysis [facility] [place], [place] [address] Nurse, [address] [employer] [address] [place] [address] 06/07/2024 1:00 PM EDT Office Visit Home Dialysis [address] [place], [place] [address] [facility], Peritoneal Dialysis [address] [facility] [address] 06/11/2024 8:00 AM EDT Treatment Home Dialysis [facility] [place] [address] Nurse, [address] [employer] [address] [place] [address] 06/11/2024 1:00 PM EDT Nurse Only Home Dialysis [facility] [place], [place] [address] Nurse, Lance [address] [employer] [address] [place], [place] [address] 06/25/2024 1:00 PM EDT Office Visit Home Dialysis [facility], [place] [address] [facility], Peritoneal Dialysis [address] [place] [address] 07/12/2024 8:00 AM EDT Treatment Home Dialysis [facility] [address] [place], [place] [phone] Nurse, Lance [address] [employer] [address] [place], [place] [address] 07/12/2024 1:00 PM EDT Nurse Only Home Dialysis [address] [place], [place] [phone] Nurse, Lance [address] [employer] [address] [place], [place] [address] 07/22/2024 1:00 PM EST Office Visit Home Dialysis [address] [place], [place] [address] [facility], Peritoneal Dialysis [address] [place] [address] 08/11/2024 8:00 AM EST Treatment Home Dialysis [facility] [place], [place] [address] Nurse, [address] [employer] [address] [place] [address] 08/12/2024 1:00 PM EST Nurse Only Home Dialysis [address] [place], [place] [address] Nurse, [address] [employer] [address], [place] [address] 08/20/2024 1:00 PM EST Office Visit Home Dialysis [facility] [place] [address] [address] [facility], Peritoneal Dialysis [address] [facility] [place] [id number] Health Maintenance Due Date Last Done Comments [...] BLOOD ORDERAB LES LABORATORY [facility] [address] [place] [address] * ALKALINE PHOSPHATASE (08/22/2023 6:26 AM EST) Alkaline Phosphatase 68 35 - 130 U/L 08/22/2023 8:20 AM EST LABORATORY [facility] Blood Venous blood specimen / Unknown Venipuncture / Unknown 08/22/2023 6:26 AM EST 08/22/2023 6:26 AM EST Yonny Saldivar MD LAB BLOOD ORDERAB LES LABORATORY [facility] [address] [place] [address] * HEPATITIS B SURFACE ANTIGEN (08/22/2023 6:26 AM EST) Pathologist [facility] Hepatitis B Surface Antigen Negative Negative 08/22/2023 10:07 AM EST LABORATORY [facility] Blood Venous blood specimen / Unknown Venipuncture / Unknown 08/22/2023 6:26 AM EST 08/22/2023 6:26 AM EST Yonny Saldivar MD LAB BLOOD ORDERAB LES Performing Organization Address City/[facility]/ZIP Co de Phone Number LABORATORY [facility] [address] [place] [address] * (ABNORMAL) IRON SCREEN, INCLUDING TIBC (08/22/2023 6:26 AM EST) Pathologist [facility] Iron 84 45 - 176 ug/dL 08/22/2023 8:20 AM EST LABORATORY [facility] Iron Binding Capacity 224(L) 250 - 425 ug/dL 08/22/2023 8:20 AM EST LABORATORY C Transferrin Saturation Percent 38 15 - 55 % 08/22/2023 8:20 AM EST LABORATORY [facility] Blood Venous blood specimen / Unknown Venipuncture / Unknown 08/22/2023 6:26 AM EST 08/22/2023 6:26 AM EST Yonny Saldivar MD LAB BLOOD ORDERAB LES LABORATORY [facility] [address] [place] [address] * (ABNORMAL) CHLORIDE (08/22/2023 6:26 AM EST) Chloride 96(L) 98 - 107 mmol/L 08/22/2023 8:20 AM EST LABORATORY [facility] Blood Venous blood specimen / Unknown Venipuncture / Unknown 08/22/2023 6:26 AM EST 08/22/2023 6:26 AM EST Yonny Saldivar MD LAB BLOOD ORDERAB LES Performing Organization Address City/[facility] Co de Phone Number LABORATORY [facility] [address] [place] [address] * (ABNORMAL) ADJUSTED CALCIUM PHOSPHORUS PRODUCT (08/22/2023 [...] LAB BLOOD ORDERAB LES Performing Organization Address City/[facility] Co de Phone Number LABORATORY [facility] [address] [place] [address] * ALT (08/22/2023 6:26 AM EST) ALT 14 10 - 50 U/L 08/22/2023 8:20 AM EST LABORATORY [facility] Blood Venous blood specimen / Unknown Venipuncture / Unknown 08/22/2023 6:26 AM EST 08/22/2023 6:26 AM EST Yonny Saldivar MD LAB BLOOD ORDERAB LES Performing Organization Address City/[facility] Co de Phone Number LABORATORY [facility] [address] [place] [address] * CO2 (08/22/2023 6:26 AM EST) CO2 25 22 - 32 mmol/L 08/22/2023 8:20 AM EST LABORATORY [facility] Blood Venous blood specimen / Unknown Venipuncture / Unknown 08/22/2023 6:26 AM EST 08/22/2023 6:26 AM EST Yonny Saldivar MD LAB BLOOD ORDERAB LES Performing Organization Address [facility] de Phone Number LABORATORY [facility] [address] [place] [address] * SODIUM (08/22/2023 6:26 AM EST) Sodium 139 135 - 146 mmol/L 08/22/2023 8:20 AM EST LABORATORY [facility] Blood Venous blood specimen / Unknown Venipuncture / Unknown 08/22/2023 6:26 AM EST 08/22/2023 6:26 AM EST Yonny Saldivar MD LAB BLOOD ORDERAB LES Performing Organization Address City/[facility] de Phone Number LABORATORY [facility] [address] [place] [address] * PRE DIALYSIS BUN (08/22/2023 6:26 AM EST) Pre-Dialysis BUN 71 mg/dL 08/22/2023 8:11 AM EST LABORATORY [facility] Blood Venous blood specimen / Unknown Venipuncture / Unknown 08/22/2023 6:26 AM EST 08/22/2023 6:26 AM EST Yonny Saldivar MD LAB BLOOD ORDERAB LES Performing Organization Address City/[facility]/ZIP Co de Phone Number LABORATORY [facility] [address] [place] [address] * (ABNORMAL) CBC (08/22/2023 6:26 AM EST) [facility] WBC 8.44 4.00 - 10.80 K/uL [...] BLOOD ORDERAB LES LABORATORY [facility] [address] [place] [address] * POTASSIUM (08/22/2023 6:26 AM EST) Potassium 4.4 3.5 - 5.1 mmol/L 08/22/2023 8:20 AM EST LABORATORY [facility] Blood Venous blood specimen / Unknown Venipuncture / Unknown 08/22/2023 6:26 AM EST 08/22/2023 6:26 AM EST Yonny Saldivar MD LAB BLOOD ORDERAB LES LABORATORY [facility] [address] [place] [address] * AST (08/22/2023 6:26 AM EST) AST 13 10 - 50 U/L 08/22/2023 8:20 AM EST LABORATORY [facility] Blood Venous blood specimen / Unknown Venipuncture / Unknown 08/22/2023 6:26 AM EST 08/22/2023 6:26 AM EST Yonny Saldivar MD LAB BLOOD ORDERAB LES Performing Organization Address [facility] de Phone Number LABORATORY [facility] [address] [place] [address] * (ABNORMAL) CREATININE (08/22/2023 6:26 AM EST) Creatinine 14.8(H) 0.6 - 1.2 mg/dL 08/22/2023 8:20 AM EST LABORATORY [facility] Estimated Glomerular Filtration Rate 4(L) >=60 mL/min 08/22/2023 8:20 AM EST LABORATORY [facility] Comment:eGFR is calculated b ased on the CKD-EPI 2020 equation Blood Venous blood specimen / Unknown Venipuncture / Unknown 08/22/2023 6:26 AM EST 08/22/2023 6:26 AM EST Yonny Saldivar MD LAB BLOOD ORDERAB LES Performing Organization Address City/[facility] Co de Phone Number LABORATORY [facility] [address] [place] [address] documented in this encounter Visit Diagnoses Diagnosis ESRD (end stage renal disease) ([facility])- Primary End stage renal disease Anemia of chronic renal failure, stage 5 ([facility]) Anemia in chronic kidney disease, on chronic dialysis ([facility]) documented in this encounter Administered Medications Inactive [...] Advance Directives occurred with: Patient Care Teams Academic Affairs Director Relationship Specialty Start Date End Date Tomer Garner MD [address] [place] [address] PCP - General 09/19/02 documented as of this encounter
--- OUTSIDE RECORDS SUMMARY | 2024-03-17 14:34 | External Medical Summary | Summary of Care ---
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 chronic kidney disease, not on chronic dialysis (HCC) Procedures [place] EPOETIN PITER, NON-ESRD [place] EPOETIN PITER, 100 UNITS ESRD Yonny Saldivar MD [address] [place] [address] [place] [address] Referral ID Status Reason Start Date Expiration Date Visits Re quested Visits Authorized [id number] Closed 08/22/2023 02/21/2024 999 0 Encounter Details [...] (Oral) 1981,04/11 Pneumococcal Conjugate Vacci ne, 20-valent ([id number]) 11/17/2022 Seasonal Influenza, PF, 6 M & [...] [address] [id number] 10/12/2023 8:00 AM EST Treatment Home Dialysis [facility] [address] [place] [phone] Nurse, Lance Jessica Bee [address] [id number] 11/03/2023 1:00 PM EST Office Visit Home Dialysis [facility] [address] [phone] Mdc, Peritoneal Dialysis [address] [facility] [place] [id number] 11/10/2023 8:00 AM EST Treatment Home Dialysis [facility] [address] [phone] Nurse Lancebaltazar Bee [address] [id number] 11/10/2023 1:00 PM EST Nurse Only Home Dialysis [address] [phone] Nurse, [employer] [place], [place] [address] 12/04/2023 1:00 PM EDT Office Visit Home Dialysis [address], [place] [address] [facility] [address] [place] [address] 12/11/2023 8:00 AM EDT Treatment Home Dialysis [address] [place], [place] [address] Nurse, [address] [employer] [address] [place] [address] 12/11/2023 1:00 PM EDT Nurse Only Home Dialysis [address] [place], [place] [phone] Nurse, [employer] [address], [place] [address] 12/26/2023 1:00 PM EDT Office Visit Home Dialysis [address], [place] [address] [facility] Per[place] Dialysis [address] [place] [address] 01/10/2024 8:00 AM EDT Treatment Home Dialysis [address] [place], [place] [phone] Nurse, Lance [employer] [facility] [address], [place] [address] 01/10/2024 1:00 PM EDT Nurse Only Home Dialysis [facility], Dr, [place] [phone] Nurse, [address] [facility] [address] [place], [place] [address] 02/08/2024 1:00 PM EDT Office Visit Home Dialysis [address] [place], [place] [address] [facility] Per[place] Dialysis [address] [facility] [place] [address] 02/10/2024 8:00 AM EDT Treatment Home Dialysis [address] [place], [place] [address] Nurse, [address] [employer] [address] [place], [place] [address] 02/12/2024 1:00 PM EDT Nurse Only Home Dialysis [address] [place], [place] [address] Nurse, [address] [employer] [address] [place], [place] [address] 03/05/2024 1:00 PM EDT Office Visit Home Dialysis [address] [place], [place] [address] [facility] Dialysis [address] [facility], [place] [address] 03/11/2024 8:00 AM EDT Treatment Home Dialysis [address] [place], [place] [address] Nurse, [employer] [address], [place] [address] 03/11/2024 1:00 PM EDT Nurse Only Home Dialysis [address] [place], [place] [address] Nurse, [employer] [address], [place] [address] 03/19/2024 1:00 PM EDT Office Visit Home Dialysis [address] [place], [place] [address] [facility] Dialysis [address] [place] [facility] [place] [address] 04/11/2024 8:00 AM EDT Treatment Home Dialysis [address] [place], [place] [address] Nurse, [address] [employer] [address] [place] [address] 04/11/2024 1:00 PM EDT Nurse Only Home Dialysis [address] [place], [place] [address] Nurse, [address] [place] [address] 04/29/2024 1:00 PM EDT Office Visit Home Dialysis [address] [place] [address] Mdc, Peritoneal Dialysis [address] [place] [address] 05/12/2024 8:00 AM EDT Treatment Home Dialysis [address] [place], [place] [phone] Nurse, [address] [place] [address] 05/14/2024 1:00 PM EDT Nurse Only Home Dialysis [address] [place], [place] [phone] Nurse, [address] [employer] [address] [place] [address] 06/07/2024 1:00 PM EDT Office Visit Home Dialysis [address] [place], [place] [address] [facility] Dialysis [address] [place] [address] 06/11/2024 8:00 AM EDT Treatment Home Dialysis [facility], [place] [phone] Nurse, [address] [employer] [address] [place] [address] 06/11/2024 1:00 PM EDT Nurse Only Home Dialysis [address] [place] [address] Nurse, [address] [employer] [address] [place], [place] [address] 06/25/2024 1:00 PM EDT Office Visit Home Dialysis [address] [place], [place] [address] Mdc, Peritoneal Dialysis [address] [place] [address] 07/12/2024 8:00 AM EDT Treatment Home Dialysis [address], [place] [phone] Nurse, [address] [employer] [address] [place], [place] [address] 07/12/2024 1:00 PM EDT Nurse Only Home Dialysis [address] [place], [place] [address] Nurse, [address] [employer] [address] [place] [address] 07/22/2024 1:00 PM EST Office Visit Home Dialysis [address], [place] [address] [facility] D[place] [address] [place] [address] 08/11/2024 8:00 AM EST Treatment Home Dialysis [address] [place], [place] [address] Nurse, [address] [employer] [address] [place] [address] 08/12/2024 1:00 PM EST Nurse Only Home Dialysis [address] [place] [address] Nurse, [address] [employer] [address], [place] [address] 08/20/2024 1:00 PM EST Office Visit Home Dialysis [address] [place] [address] Mdc, Peritoneal Dialysis [address] [facility] [place] [address] Health Maintenance Due Date [...] Advance Directives occurred with: Patient Care Teams Digital Advertising Analyst Relationship Specialty Start Date End Date Tomer Garner MD [address] [place] [address] PCP - General 09/19/02 documented as of this encounter
--- OUTSIDE RECORDS SUMMARY | 2024-03-17 14:34 | External Medical Summary | Summary of Care ---
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 chronic kidney disease, not on chronic dialysis (HCC) Procedures [place] EPOETIN PITER, NON-ESRD [place] EPOETIN PITER, 100 UNITS ESRD Yonny Saldivar MD [address] [place] [address] [place] [address] Referral ID Status Reason Start Date Expiration Date Visits Re quested Visits Authorized [id number] Closed 08/22/2023 02/21/2024 999 0 Encounter Details [...] (Oral) 1981,04/11 Pneumococcal Conjugate Vacci ne, 20-valent ([id number]) 11/17/2022 Pneumococcal Polysaccharide PPV23 (Pneumovax) 02/03/2004 Seasonal [...] [address] [id number] 11/03/2023 1:00 PM EST Office Visit Home Dialysis [address] [id number] [facility]dc, Peritoneal Dialysis [address] [facility] [place] [address] 11/10/2023 8:00 AM EST Treatment Home Dialysis [address] [id number] NurseLance [address] [place] [address] 11/10/2023 1:00 PM EST Nurse Only Home Dialysis [address] [id number] Nurse, [address] [facility] [address] [place], [place] [address] 12/04/2023 1:00 PM EDT Office Visit Home Dialysis [address] [place], [place] [address] [facility], Peritoneal Dialysis [address] [place] [address] 12/11/2023 8:00 AM EDT Treatment Home Dialysis [facility] [place], [place] [phone] Nurse, Lance [address] [facility] [place], [place] 12/11/2023 1:00 PM EDT Nurse Only Home Dialysis [address] [place], [place] [phone] Nurse, Lance [address] [facility] [place], [place] [address] 12/26/2023 1:00 PM EDT Office Visit Home Dialysis [address] [place] [address] [facility], Peritoneal Dialysis [address] [place] [address] 01/10/2024 8:00 AM EDT Treatment Home Dialysis [facility] [place], [place] [phone] Nurse, Lance [address] [employer] [address] [place] [address] 01/10/2024 1:00 PM EDT Nurse Only Home Dialysis [address] [place], [place] [phone] Nurse, Lance [address] [employer] [address] [place] [address] 02/08/2024 1:00 PM EDT Office Visit Home Dialysis [address] [place], [place] [address] [facility], Peritoneal Dialysis [address] [place] [address] 02/10/2024 8:00 AM EDT Treatment Home Dialysis [address] [place] [address] Nurse, Lance [employer] [address], [place] [address] 02/12/2024 1:00 PM EDT Nurse Only Home Dialysis [address] [place], [place] [address] Nurse, Lance [employer] Cristal [address], [place] [address] 03/05/2024 1:00 PM EDT Office Visit Home Dialysis [address] [place], [place] [address] [facility], Peritoneal Dialysis [address] [place] [address] 03/11/2024 8:00 AM EDT Treatment Home Dialysis [address] [place], [place] [phone] Nurse, [employer] [address] [place] [address] 03/11/2024 1:00 PM EDT Nurse Only Home Dialysis [address] [place], [place] [address] Nurse, Lance [employer] [address] [place] [address] 03/19/2024 1:00 PM EDT Office Visit Home Dialysis [address], [place] [address] [facility], Peritoneal Dialysis [address] [place] [address] 04/11/2024 8:00 AM EDT Treatment Home Dialysis [address] [place] [address] Nurse, Lance [address] [employer] [address] [place], [place] [address] 04/11/2024 1:00 PM EDT Nurse Only Home Dialysis [address] [place], [place] [address] Nurse, [address] [employer] [address] [place], [place] [address] 04/29/2024 1:00 PM EDT Office Visit Home Dialysis [address], [place] [address] [facility], Peritoneal Dialysis [address] [place] [address] 05/12/2024 8:00 AM EDT Treatment Home Dialysis [facility] [place], [place] [address] Nurse, [address] [employer] [address] [place], [place] [address] 05/14/2024 1:00 PM EDT Nurse Only Home Dialysis [address] [place], [place] [address] Nurse, Lance [address] [employer] [address] [place] [address] 06/07/2024 1:00 PM EDT Office Visit Home Dialysis [address], [place] [address] [facility], Per[place] Dialysis [address] [place] [address] 06/11/2024 8:00 AM EDT Treatment Home Dialysis [address] [place] [address] Nurse, [address] [employer] [address] [place] [address] 06/11/2024 1:00 PM EDT Nurse Only Home Dialysis [address] [place], [place] [address] Nurse, [address] [employer] [address], [place] [address] 06/25/2024 1:00 PM EDT Office Visit Home Dialysis [address], [place] [address] [facility], Peritoneal Dialysis [address] [place] [address] 07/12/2024 8:00 AM EDT Treatment Home Dialysis [facility], [place] [phone] Nurse, Lance [address] [employer] [address] [place], [place] [address] 07/12/2024 1:00 PM EDT Nurse Only Home Dialysis [address] [place], [place] [phone] Nurse, [address] [facility] [address], [place] [address] 07/22/2024 1:00 PM EST Office Visit Home Dialysis [address], [place] [address] [facility], Peritoneal Dialysis [address] [place] [address] 08/11/2024 8:00 AM EST Treatment Home Dialysis [address] [place], [place] [address] Nurse, [address] [employer] [address] [place] [address] 08/12/2024 1:00 PM EST Nurse Only Home Dialysis [address] [place], [place] [address] Nurse, [address] [employer] [address], [place] [address] 08/20/2024 1:00 PM EST Office Visit Home Dialysis [address] [place] [address] [address] [facility], Peritoneal Dialysis [address] [facility] [place] [id number] Health Maintenance Due Date Last Done Comments [...] BLOOD ORDERAB LES LABORATORY [facility] [address] [place] [address] * ALKALINE PHOSPHATASE (08/22/2023 6:26 AM EST) Alkaline Phosphatase 68 35 - 130 U/L 08/22/2023 8:20 AM EST LABORATORY [facility] [place] Venous blood specimen / Unknown Venipuncture / Unknown 08/22/2023 6:26 AM EST 08/22/2023 6:26 AM EST Yonny Saldivar MD LAB BLOOD ORDERAB LES LABORATORY [facility] [place] [address] [place] [address] * HEPATITIS B SURFACE ANTIGEN (08/22/2023 6:26 AM EST) Pathologist [facility] Hepatitis B Surface Antigen Negative Negative 08/22/2023 10:07 AM EST LABORATORY [facility] [place] Blood Venous blood specimen / Unknown Venipuncture / Unknown 08/22/2023 6:26 AM EST 08/22/2023 6:26 AM EST Yonny Saldivar MD LAB BLOOD ORDERAB LES Performing Organization Address City/[facility]/ZIP Co de Phone Number LABORATORY [facility] [place] [address] [place] [address] * (ABNORMAL) IRON SCREEN, INCLUDING TIBC (08/22/2023 6:26 AM EST) Pathologist [facility] Iron 84 45 - 176 ug/dL 08/22/2023 8:20 AM EST LABORATORY [facility] [place] Iron Binding Capacity 224(L) 250 - 425 ug/dL 08/22/2023 8:20 AM EST LABORATORY C Transferrin Saturation Percent 38 15 - 55 % 08/22/2023 8:20 AM EST LABORATORY [facility] [place] Blood Venous blood specimen / Unknown Venipuncture / Unknown 08/22/2023 6:26 AM EST 08/22/2023 6:26 AM EST Yonny Saldivar MD LAB BLOOD ORDERAB LES LAB[facility] [address] [place] [address] * (ABNORMAL) CHLORIDE (08/22/2023 6:26 AM EST) Chloride 96(L) 98 - 107 mmol/L 08/22/2023 8:20 AM EST LABORATORY [facility] Blood Venous blood specimen / Unknown Venipuncture / Unknown 08/22/2023 6:26 AM EST 08/22/2023 6:26 AM EST Yonny Saldivar MD LAB BLOOD ORDERAB LES Performing Organization Address City/[facility] Co de Phone Number LABORATORY [facility] [address] [place] [address] * (ABNORMAL) ADJUSTED CALCIUM PHOSPHORUS PRODUCT (08/22/2023 [...] LAB BLOOD ORDERAB LES Performing Organization Address City/[facility] Co de Phone Number LABORATORY [facility] [place] [address] [place] [address] * ALT (08/22/2023 6:26 AM EST) ALT 14 10 - 50 U/L 08/22/2023 8:20 AM EST LABORATORY [facility] Blood Venous blood specimen / Unknown Venipuncture / Unknown 08/22/2023 6:26 AM EST 08/22/2023 6:26 AM EST Yonny Saldivar MD LAB BLOOD ORDERAB LES Performing Organization Address City/[facility] Co de Phone Number LABORATORY [facility] [place] [address] [place] [address] * CO2 (08/22/2023 6:26 AM EST) CO2 25 22 - 32 mmol/L 08/22/2023 8:20 AM EST LABORATORY [facility] Blood Venous blood specimen / Unknown Venipuncture / Unknown 08/22/2023 6:26 AM EST 08/22/2023 6:26 AM EST Yonny Saldivar MD LAB BLOOD ORDERAB LES Performing Organization Address [facility] de Phone Number LABORATORY [facility] [place] [address] [place] [address] * SODIUM (08/22/2023 6:26 AM EST) Sodium 139 135 - 146 mmol/L 08/22/2023 8:20 AM EST LABORATORY [facility] Blood Venous blood specimen / Unknown Venipuncture / Unknown 08/22/2023 6:26 AM EST 08/22/2023 6:26 AM EST Yonny Saldivar MD LAB BLOOD ORDERAB LES Performing Organization Address City/[facility] de Phone Number LABORATORY [facility] [place] [facility] [address] [place] [address] * PRE DIALYSIS BUN (08/22/2023 6:26 AM EST) Pre-Dialysis BUN 71 mg/dL 08/22/2023 8:11 AM EST LABORATORY [facility] Blood Venous blood specimen / Unknown Venipuncture / Unknown 08/22/2023 6:26 AM EST 08/22/2023 6:26 AM EST Yonny Saldivar MD LAB BLOOD ORDERAB LES Performing Organization Address City/[facility]/ZIP Co de Phone Number LABORATORY [facility] [address] [place] [address] * (ABNORMAL) CBC (08/22/2023 6:26 AM EST) [facility] WBC 8.44 4.00 - 10.80 K/uL 08/22/2023 [...] BLOOD ORDERAB LES LABORATORY [facility] [address] [place] [address] * POTASSIUM (08/22/2023 6:26 AM EST) Potassium 4.4 3.5 - 5.1 mmol/L 08/22/2023 8:20 AM EST LABORATORY [facility] [place] Blood Venous blood specimen / Unknown Venipuncture / Unknown 08/22/2023 6:26 AM EST 08/22/2023 6:26 AM EST Yonny Saldivar MD LAB BLOOD ORDERAB LES LABORATORY [facility] [place] [address] [place] [address] * AST (08/22/2023 6:26 AM EST) AST 13 10 - 50 U/L 08/22/2023 8:20 AM EST LABORATORY [facility] [place] Blood Venous blood specimen / Unknown Venipuncture / Unknown 08/22/2023 6:26 AM EST 08/22/2023 6:26 AM EST Yonny Saldivar MD LAB BLOOD ORDERAB LES Performing Organization Address [facility] de Phone Number LABORATORY [facility] [place] [address] [place] [address] * (ABNORMAL) CREATININE (08/22/2023 6:26 AM EST) Creatinine 14.8(H) 0.6 - 1.2 mg/dL 08/22/2023 8:20 AM EST LABORATORY [facility] [place] Estimated Glomerular Filtration Rate 4(L) >=60 mL/min 08/22/2023 8:20 AM EST LABORATORY [facility] [place] Comment:eGFR is calculated b ased on the CKD-EPI 2020 equation Blood Venous blood specimen / Unknown Venipuncture / Unknown 08/22/2023 6:26 AM EST 08/22/2023 6:26 AM EST Yonny Saldivar MD LAB BLOOD ORDERAB LES Performing Organization Address City/[facility] Co de Phone Number LABORATORY [facility] [place] [address] [place] [address] documented in this encounter Visit Diagnoses Diagnosis ESRD (end stage renal disease) ([facility])- Primary End stage renal disease Anemia of chronic renal failure, stage 5 ([facility]) Anemia in chronic kidney disease, on chronic dialysis ([facility]) documented in this encounter Administered Medications Inactive [...] Advance Directives occurred with: Patient Care Teams Millstone Cleaner Relationship Specialty Start Date End Date Tomer Garner MD [address] [place] [address] PCP - General 09/19/02 documented as of this encounter
--- OUTSIDE RECORDS SUMMARY | 2024-03-17 14:34 | External Medical Summary | Summary of Care ---
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 chronic kidney disease, not on chronic dialysis (HCC) Procedures IN EPOETIN PITER, NON-ESRD IN EPOETIN PITER, 100 UNITS ESRD Yonny Saldivar MD [address] [place] [address] [place] [address] Referral ID Status Reason Start Date Expiration Date Visits Re quested Visits Authorized [id number] Closed 08/22/2023 02/21/2024 999 0 Encounter Details [...] as of this encounter (statuses as of 10/11/2023) Medications Medication Sig Dispensed Refills Start Date [...] as of this encounter (statuses as of 10/11/2023) Active Problems Problem Noted Date Diagnosed Date [...] as of this encounter (statuses as of 10/11/2023) Resolved Problems Problem Noted Date Diagnosed Date Resolved Date Dyslipidemia, goal to be determined 08/27/2009 11/21/2013 Overview: Per Lipid Taxonomy. PURE HYPERCHOLESTEROLEM 04/25/200208/11 Overview: Per Lipid Taxonomy. 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 1 Hemoptysis 04/11/1996 08/11/1996 Overview: ICD-10 update of inactive term documented as of this encounter (statuses as of 10/11/2023) Immunizations Name Administration Dates Next Due COVID-19 mRNA, LNP-s, No Pre serve, 2-Dose Series (Moderna) 11/23/2020,10/18/2020 DTP Vaccine 1981,1981,1981 HEP B - Hepatitis B (Dialysis/[facility] Pt) 05/02/2023,04/04/2023 MMR - Measles/Mumps/Rubella Vaccine 05/11/1982 OPV - Polio Virus Vaccine (Oral) 1981,04/11 Pneumococcal Conjugate Vacci ne, 20-valent ([id number]) 11/17/2022 Seasonal Influenza, PF, 6 M & [...] [address] [id number] 10/12/2023 8:00 AM EST Treatment Home Dialysis [address] [id number] Nurse, Lance Jessica Bee [address] [id number] 11/03/2023 1:00 PM EST Office Visit Home Dialysis [address] [id number] [facility], Peritoneal Dialysis [address] [facility] [place] [id number] 11/10/2023 8:00 AM EST Treatment Home Dialysis [address] [phone] Nurse Lancebaltazar Bee [address] [phone] 11/10/2023 1:00 PM EST Nurse Only Home Dialysis [address] [phone] Nurse, [employer] [place], [place] [address] 12/04/2023 1:00 PM EDT Office Visit Home Dialysis [address], [place] [address] [facility] [address] [place] [address] 12/11/2023 8:00 AM EDT Treatment Home Dialysis [address] [place], [place] [address] Nurse, [address] [employer] [address] [place] [address] 12/11/2023 1:00 PM EDT Nurse Only Home Dialysis [address], [place] [phone] Nurse, [employer] [address], [place] [address] 12/26/2023 1:00 PM EDT Office Visit Home Dialysis [address], [place] [address] [facility] [address] [place] [address] 01/10/2024 8:00 AM EDT Treatment Home Dialysis [address], [place] [phone] Nurse, Lance [employer] [address], [place] [address] 01/10/2024 1:00 PM EDT Nurse Only Home Dialysis Cl[address], Dr, [place] [phone] Nurse, [address], [place] [address] 02/08/2024 1:00 PM EDT Office Visit Home Dialysis [address], [place] [address] [facility] [address] [facility] [place] [address] 02/10/2024 8:00 AM EDT Treatment Home Dialysis [address] [place], [place] [address] Nurse, [address] [employer] [address], [place] [address] 02/12/2024 1:00 PM EDT Nurse Only Home Dialysis [address] [place], [place] [address] Nurse, [address] [employer] [address], [place] [address] 03/05/2024 1:00 PM EDT Office Visit Home Dialysis [address], [place] [address] [facility] [place] [address] [facility], [place] [address] 03/11/2024 8:00 AM EDT Treatment Home Dialysis [address] [place], [place] [address] Nurse, [employer] [address], [place] [address] 03/11/2024 1:00 PM EDT Nurse Only Home Dialysis [address] [place], [place] [address] Nurse, [employer] [address], [place] [address] 03/19/2024 1:00 PM EDT Office Visit Home Dialysis [address], [place] [address] [facility] [place] [address] [facility] [place] [address] 04/11/2024 8:00 AM EDT Treatment Home Dialysis [address] [place], [place] [address] Nurse, [address] [employer] [address] [place] [address] 04/11/2024 1:00 PM EDT Nurse Only Home Dialysis [address] [place], [place] [address] Nurse, [address] [place] [address] 04/29/2024 1:00 PM EDT Office Visit Home Dialysis [address] [place] [address] [facility], Peritoneal Dialysis [address] [place] [address] 05/12/2024 8:00 AM EDT Treatment Home Dialysis [address], [place] [phone] Nurse, [address] [place] [address] 05/14/2024 1:00 PM EDT Nurse Only Home Dialysis [address], [place] [phone] Nurse, [address] [employer] [address] [place] [address] 06/07/2024 1:00 PM EDT Office Visit Home Dialysis [address], [place] [address] [facility] [place] [address] [place] [address] 06/11/2024 8:00 AM EDT Treatment Home Dialysis [address], [place] [phone] Nurse, [address] [employer] [address] [place] [address] 06/11/2024 1:00 PM EDT Nurse Only Home Dialysis [address] [place] [address] Nurse, [address] [employer] [address] [place], [place] [address] 06/25/2024 1:00 PM EDT Office Visit Home Dialysis [address] [place], [place] [address] [facility], Peritoneal Dialysis [address] [place] [address] 07/12/2024 8:00 AM EDT Treatment Home Dialysis [address], [place] [phone] Nurse, [address] [employer] [address], [place] [address] 07/12/2024 1:00 PM EDT Nurse Only Home Dialysis [address] [place], [place] [address] Nurse, [address] [employer] [address] [place] [address] 07/22/2024 1:00 PM EST Office Visit Home Dialysis [address], [place] [address] [facility] [place] [address] [place] [address] 08/11/2024 8:00 AM EST Treatment Home Dialysis [address], [place] [address] Nurse, [address] [employer] [address] [place] [address] 08/12/2024 1:00 PM EST Nurse Only Home Dialysis [address] [place] [address] Nurse, [address] [employer] [address], [place] [address] 08/20/2024 1:00 PM EST Office Visit Home Dialysis [address] [place] [address] [facility], Peritoneal Dialysis [address] [facility] [place] [address] Health Maintenance Due [...] occurred with: Patient Care Teams Human Resources Professional Relationship Specialty Start Date End Date Tomer Garner MD [address] [place] [address] PCP - General 09/19/02 documented as of this encounter
--- OUTSIDE RECORDS SUMMARY | 2024-03-17 14:34 | External Medical Summary | Summary of Care ---
Author Name Unknown Organization [facility] Address [address] [place] [address] Phone [phone] Care Team Providers Care Supervisor [employer] Name Role Phone Tomer Garner MD Primary Care Provider [phone] Reason for Visit * Reason Comments Hemodialysis * Episode Based Medications (Routine) - Closed Specialty Diagnoses / Procedures Referred By Contac t Referred To Contact Diagnoses ESRD on peritoneal dialysis (HCC) 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 chronic kidney disease, not on chronic dialysis (HCC) Procedures DE EPOETIN PITER, NON-ESRD DE EPOETIN PITER, 100 UNITS ESRD Yonny Saldivar MD [address] [place] [address] [place] [address] Referral ID Status Reason Start Date Expiration Date Visits Re quested Visits Authorized [id number] Closed 08/22/2023 02/21/2024 999 0 Encounter Details [...] (Oral) 1981,04/11 Pneumococcal Conjugate Vacci ne, 20-valent ([id number]) 11/17/2022 Seasonal Influenza, PF, 6 M & [...] [facility] [address] [id number] 10/12/2023 8:00 AM EST Treatment Home Dialysis [facility] [address] [id number] Nurse, Lance Jessica Bee [address] [id number] 11/03/2023 1:00 PM EST Office Visit Home Dialysis [facility] [address] [id number] [facility], Peritoneal Dialysis [address] [facility] [place] [id number] 11/10/2023 8:00 AM EST Treatment Home Dialysis [facility] [address] [id number] Nurse Lancebaltazar Bee [address] [id number] 11/10/2023 1:00 PM EST Nurse Only Home Dialysis [facility] [address] [id number] Nurse, Blink [place], [place] [address] 12/04/2023 1:00 PM EDT Office Visit Home Dialysis [facility] [address] [place], [place] [address] [facility], Peritoneal Dialysis [address] [place] [address] 12/11/2023 8:00 AM EDT Treatment Home Dialysis [address] [place], [place] [address] Nurse, Lance [address] [facility] [address] [place] [address] 12/11/2023 1:00 PM EDT Nurse Only Home Dialysis [facility] [place], [place] [phone] Nurse, Blink [facility] [address] [place], [place] [address] 12/26/2023 1:00 PM EDT Office Visit Home Dialysis [facility] [address] [place], [place] [address] [facility], Peritoneal Dialysis [address] [place] [address] 01/10/2024 8:00 AM EDT Treatment Home Dialysis [facility] [address] [place], [place] [phone] Nurse, Lance KipCall Cristal [address] [place], [place] [address] 01/10/2024 1:00 PM EDT Nurse Only Home Dialysis [address], [place], [place] [phone] Nurse, Lance Drive [facility] [address] [place], [place] [address] 02/08/2024 1:00 PM EDT Office Visit Home Dialysis [facility] [address] [place], [place] [address] [facility], Peritoneal Dialysis [address] [place] [address] 02/10/2024 8:00 AM EDT Treatment Home Dialysis [facility] [address] [place], [place] [address] Nurse, Lance [address] [facility] [address] [place], [place] [address] 02/12/2024 1:00 PM EDT Nurse Only Home Dialysis [facility] [place], [place] [address] Nurse, Lance [address] [facility] [address] [place], [place] [address] 03/05/2024 1:00 PM EDT Office Visit Home Dialysis [facility] [address] [place], [place] [address] [facility], Peritoneal Dialysis [address] [facility], [place] [address] 03/11/2024 8:00 AM EDT Treatment Home Dialysis [facility] [address] [place], [place] [address] Nurse, Blink [facility] [address] [place], [place] [address] 03/11/2024 1:00 PM EDT Nurse Only Home Dialysis [facility] [place], [place] [address] Nurse, Blink [facility] [address] [place], [place] [address] 03/19/2024 1:00 PM EDT Office Visit Home Dialysis [facility] [address] [place], [place] [address] [facility], Peritoneal Dialysis [address] [place] [facility] [place] [address] 04/11/2024 8:00 AM EDT Treatment Home Dialysis [facility] [address] [place], [place] [address] Nurse, Lance [address] [facility] [address] [place] [address] 04/11/2024 1:00 PM EDT Nurse Only Home Dialysis [facility] [place], [place] [address] Nurse, Lance [address] [facility] [address] [place] [address] 04/29/2024 1:00 PM EDT Office Visit Home Dialysis [facility] [address] [place] [address] M[facility], Peritoneal Dialysis [address] [place] [address] 05/12/2024 8:00 AM EDT Treatment Home Dialysis [facility] [address] [place], [place] [phone] Nurse, Lance Drive [facility] [address] [place] [address] 05/14/2024 1:00 PM EDT Nurse Only Home Dialysis [facility] [address] [place], [place] [phone] Nurse, Lance Drive [facility] [address] [place] [address] 06/07/2024 1:00 PM EDT Office Visit Home Dialysis [facility] [address] [place], [place] [address] [facility], Peritoneal Dialysis [address] [place] [address] 06/11/2024 8:00 AM EDT Treatment Home Dialysis [facility] [address] [facility] [address] [place], [place] [phone] Nurse, Lance [address] [facility] [address] [place] [address] 06/11/2024 1:00 PM EDT Nurse Only Home Dialysis [facility] [place] [address] Nurse, Lance [address] [facility] [address] [place], [place] [address] 06/25/2024 1:00 PM EDT Office Visit Home Dialysis [facility] [address] [place], [place] [address] M[facility], Peritoneal Dialysis [address] [place] [address] 07/12/2024 8:00 AM EDT Treatment Home Dialysis [facility] [address] [place], [place] [phone] Nurse, Lance [address] [facility] [address] [place], [place] [address] 07/12/2024 1:00 PM EDT Nurse Only Home Dialysis [facility] [address] [place], [place] [address] Nurse, Lance [address] [facility] [address] [place] [address] 07/22/2024 1:00 PM EST Office Visit Home Dialysis [facility] [address] [place], [place] [address] [facility], Peritoneal Dialysis [address] [place] [address] 08/11/2024 8:00 AM EST Treatment Home Dialysis [facility] [address] [place], [place] [address] Nurse, Lance [address] [facility] [address] [place] [address] 08/12/2024 1:00 PM EST Nurse Only Home Dialysis [address] [place] [address] Nurse, Lance [address] [facility] [address] [place], [place] [address] 08/20/2024 1:00 PM EST Office Visit Home Dialysis [facility] [address] [place] [address] [facility], Peritoneal Dialysis [address] [facility] [place] [address] Health Maintenance Due Date [...] Directives occurred with: Patient Care Teams Supervisor [employer] Relationship Specialty Start Date End Date Tomer Garner MD [address] [place] [address] PCP - General 09/19/02 documented as of this encounter
--- OUTSIDE RECORDS SUMMARY | 2024-03-17 14:35 | External Medical Summary | Summary of Care ---
Author Name Unknown Organization [facility] Address [address] [place] [address] Phone [phone] Care Team Providers Care Core Fitter Name Role Phone Tomer Garner MD [...] UNITS ESRD Yonny Saldivar MD [address] [place] [address] [place] [address] Referral ID Status Reason Start Date Expiration Date Visits Re quested Visits Authorized [id number] Closed 08/22/2023 02/21/2024 999 0 Encounter Details Date Type Department Care Team (Late st Contact Info) Description 08/24/2023 5:30 AM EST Treatment Hemodialysis [facility] [...] as of this encounter (statuses as of 10/09/2023) Medications Medication Sig Dispensed Refills Start Date [...] Pain, Severe. 12 Capsule 0 08/21/2023 Active Metoprolol Succinate ER 100 MG Oral Tablet Extended Release 24 Hour (Toprol XL) Take 1 Tablet (100 mg) by mouth in the morning. 120 Tablet 3 08/01/2022 4 Discontinued documented as of this encounter (statuses as of 10/09/2023) Active Problems Problem Noted Date Diagnosed Date [...] as of this encounter (statuses as of 10/09/2023) Resolved Problems Problem Noted Date Diagnosed Date Resolved Date Dyslipidemia, goal to be determined 08/27/2009 11/21/2013 Overview: Per Lipid Taxonomy. PURE HYPERCHOLESTEROLEM 04/25/200208/11 Overview: Per Lipid Taxonomy. 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 1 Hemoptysis 04/11/1996 08/11/1996 Overview: ICD-10 update of inactive term documented as of this encounter (statuses as of 10/09/2023) Immunizations Name Administration Dates Next Due COVID-19 mRNA, LNP-s, No Pre serve, 2-Dose Series (Moderna) 11/23/2020,10/18/2020 DTP Vaccine 1981,1981,1981 HEP B - Hepatitis B (Dialysis/Immumocomp Pt) 05/02/2023,04/04/2023 MMR - Measles/Mumps/Rubella Vaccine 05/11/1982 OPV - Polio Virus Vaccine (Oral) 1981,04/11 Pneumococcal Conjugate Vacci ne, 20-valent ([id number]) 11/17/2022 Seasonal Influenza, PF, 6 M & [...] Sign Reading Time Taken Comments Blood Pressure 126/82 08/24/2023 9:30 AM EST Pulse 77 08/24/2023 9:36 AM EST Temperature 37.2 C (99 F) 08/24/2023 9:36 AM EST Respiratory Rate 16 08/24/2023 9:36 AM EST Oxygen Saturation - - Inhaled [...] Rounding Note - Zarina Zavala PA-C - 08/24/2023 5:30 AM EST DIALYSIS ROUNDING NOTE Name: Chandan Donato Chandan Donato was seen and examined while on dialysis. Professional oversight of the patient's dialysis care, access care and dialysis related co-morbidities were addressed as necessary with the patient and/or staff. Patient reports feeling good. Patient denies chest pain, shortness of breath, nausea, vomiting. Dialysis access: right IJ TDC functional VSS PE: appropriately responsive, no acute respiratory distress, regular rhythm, tolerates room air, Hernan edema bilaterally. A/Plan: Patient tolerating hemodialysis. Continue hemodialysis treatment as ordered. documented in this encounter Plan of Treatment Upcoming Encounters Date Type Department Care Team (Late st Contact Info) Description 09/28/2023 Plan of Care Documentation Home Dialysis [address], [place] [address] 10/12/2023 8:00 AM EST Treatment Home Dialysis [address], [place] [address] Nurse, Lance [address] [facility] [address] [place], [place] [address] 10/12/2023 1:00 PM EST Nurse Only Home Dialysis [facility] [place], [place] [address] Nurse, Lance [address] [facility] [address] [place] [address] 11/03/2023 1:00 PM EST Office Visit Home Dialysis [facility] [address] [place] [address] [facility], Peritoneal Dialysis [address] [place] [address] 11/10/2023 8:00 AM EST Treatment Home Dialysis [facility] [address] [place], [place] [phone] Nurse, Lance [address] [facility] [address] [place] [address] 11/10/2023 1:00 PM EST Nurse Only Home Dialysis [facility] [address] [place], [place] [phone] Nurse, Lance [address] [facility] [address] [place] [address] 12/04/2023 1:00 PM EDT Office Visit Home Dialysis [facility] [address] [place], [place] [address] [facility], Peritoneal Dialysis [address] [facility] [place] [facility] [place] [address] 12/11/2023 8:00 AM EDT Treatment Home Dialysis [facility] [place], [place] [phone] Nurse, Lance [address] [place] [address] [place] [address] 12/11/2023 1:00 PM EDT Nurse Only Home Dialysis [address], [place] [address] Nurse, [address] [facility] [address] [place] [address] 12/26/2023 1:00 PM EDT Office Visit Home Dialysis [address] [place] [address] [facility], Peritoneal Dialysis [address] [place] [address] 01/10/2024 8:00 AM EDT Treatment Home Dialysis [address] [place] [address] Nurse, [address] [facility] [address] [place] [address] 01/10/2024 1:00 PM EDT Nurse Only Home Dialysis [address] [place], [place] [address] Nurse, [address] [facility] [address] [place] [address] 02/08/2024 1:00 PM EDT Office Visit Home Dialysis [address] [place] [address] [facility], Peritoneal Dialysis [address] [facility] [place] [address] 02/10/2024 8:00 AM EDT Treatment Home Dialysis [facility] [place], [place] [address] Nurse, [address] [facility] [address] [place] [address] 02/12/2024 1:00 PM EDT Nurse Only Home Dialysis [address] [place] [address] Nurse, Lance [address] [facility] [address] [place] [address] 03/05/2024 1:00 PM EDT Office Visit Home Dialysis [address] [place] [address] [facility]dc, Peritoneal Dialysis [address] [place] [address] 03/11/2024 8:00 AM EDT Treatment Home Dialysis [address] [place], [place] [address] Nurse, Lance CorvisaCloud Cristal [address] [place], [place] [address] 03/11/2024 1:00 PM EDT Nurse Only Home Dialysis [facility] [place], [place] [phone] Nurse, Lance [address] [place] [place], [place] [address] 03/29/2024 1:00 PM EDT Office Visit Home Dialysis [facility] [address] [place], [place] [address] [facility], Peritoneal Dialysis [address] [place] [address] 04/11/2024 8:00 AM EDT Treatment Home Dialysis [facility] [address] [place], [place] [phone] Nurse, Lance CorvisaCloud [address]al [address] [place], [place] [address] 04/11/2024 1:00 PM EDT Nurse Only Home Dialysis [address] [place], [place] [address] Nurse, Lance [address] [place] [address] 04/29/2024 1:00 PM EDT Office Visit Home Dialysis [facility] [address] [place], [place] [address] [facility], Peritoneal Dialysis [address] [place] [address] 05/12/2024 8:00 AM EDT Treatment Home Dialysis [address] [place] [address] Nurse, aLnce Lopez [address] [place], [place] [address] 05/14/2024 1:00 PM EDT Nurse Only Home Dialysis [facility] [address] [place], [place] [phone] Nurse, Lance [address] [facility] [address] [place], [place] [address] 06/07/2024 1:00 PM EDT Office Visit Home Dialysis [facility] [address] [place], [place] [phone] [facility], Peritoneal Dialysis [address] [place] [address] 06/11/2024 8:00 AM EDT Treatment Home Dialysis [facility] [address] [place], [place] [phone] Nurse, Lance [address] [place] [place], [place] [address] 06/11/2024 1:00 PM EDT Nurse Only Home Dialysis [facility] [address] [place], [place] [address] Nurse, Lance Lopez [address] [place], [place] [address] 06/25/2024 1:00 PM EDT Office Visit Home Dialysis [facility] [address] [place], [place] [address] [facility], Peritoneal Dialysis [address] [place] [address] 07/12/2024 8:00 AM EDT Treatment Home Dialysis [facility] [address] [place], [place] [address] Nurse, Lance [address] [place], [place] [address] 07/12/2024 1:00 PM EDT Nurse Only Home Dialysis [address] [place], [place] [phone] Nurse, Lybrate [address] [address] [place], [place] [phone] 07/22/2024 1:00 PM EST Office Visit Home Dialysis [facility] [address] [place], [place] [phone] [facility], Peritoneal Dialysis [address] [facility], [place] [id number] 08/11/2024 8:00 AM EST Treatment Home Dialysis [facility] [address] [place], [place] [phone] Nurse, Lance [address] [facility] [address] [place], [place] [address] 08/12/2024 1:00 PM EST Nurse Only Home Dialysis [address] [place], [place] [phone] Nurse, Lybrate [facility] [address], [place] [phone] 08/28/2024 1:00 PM EST Office Visit Home Dialysis [facility] [address] [place], [place] [address] [facility], Peritoneal Dialysis [address] [facility], [place] [id number] Health Maintenance Due Date Last Done Comments [...] mcg 4 mcg, Intravenous, ONCE, On Marylu 08/24/23 at 0700, For 1 dose Given 08/24/2023 6:39 AM EST 4 mcg Epoetin Sloan [address] UNIT/ML inj 7,600 Units 7,600 Units, Intravenous, ONCE, On Marylu 08/24/23 at 0700, For 1 dose Given 08/24/2023 6:40 AM EST 7,600 Units hEParin 1,000 unit/mL infusion for dialysis 500 Units/hr (0.5 mL/hr), Hemodialysis, CONTINUOUS, Starting on Marylu 08/24/23 at 0700, Until Marylu 08/24/23 at 1435, Maintenance: Stop 1 hour before dialysis end in AVF/AVG. Continue through dialysis in CVC. The total delivered dose is approximately 2,500 to 5,000 units, based on weight and treatment duration assumptions New Bag 08/24/2023 6:39 AM EST 500 Units/hr 0.5 mL/hr hEParin 1000 UNIT/ML inj 2,000 Units 2,000 Units, Intravenous, ONCE, On Marylu 08/24/23 at 0700, For 1 dose, Loading dose Given 08/24/2023 6:29 AM EST 2,000 Units Iron Sucrose (Venofer) inj 100 mg 100 mg, Intravenous, ONCE, 1 dose, On Marylu 08/24/23 at 0700 Given 08/24/2023 6:40 AM EST 100 mg sodium citrate 4% (Anticoagulant Sodium Citrate) inj 2.5 mL 2.5 mL, Dialysis catheter, ONCE, On Marylu 08/24/23 at 0700, For 1 dose, ARTERIAL For use only to lock dialysis catheter after dialysis Given 08/24/2023 6:40 AM EST 2.5 mL sodium citrate 4% (Anticoagulant Sodium Citrate) inj 2.5 mL 2.5 mL, Dialysis catheter, ONCE, On Marylu 08/24/23 at 0700, For 1 dose, VENOUS For use only to lock dialysis catheter after dialysis Given 08/24/2023 6:40 AM EST 2.5 mL documented in this [...] Advance Directives occurred with: Patient Care Teams Core Fitter Relationship Specialty Start Date End Date Tomer Garner MD [address] [place] [address] PCP - General 09/19/02 documented as of this encounter
--- OUTSIDE RECORDS SUMMARY | 2024-03-17 14:35 | External Medical Summary | Summary of Care ---
Author Name Unknown Organization [facility] Address [address] [place] [address] Phone [phone] Care Team Providers Care [employer] Name Role Phone Tomer Garner MD Primary Care Provider [phone] Reason for Visit * Reason Comments Hemodialysis * Episode Based Medications (Routine) - Closed Specialty Diagnoses / Procedures Referred By Contac t Referred To Contact Diagnoses ESRD on peritoneal dialysis (HCC) 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 chronic kidney disease, not on chronic dialysis (HCC) Procedures NM EPOETIN SLOAN, NON-ESRD NM EPOETIN SLOAN, 100 UNITS ESRD Yonny Saldivar MD [address] [place] [address] [address] [place] [address] Referral ID Status Reason Start Date Expiration Date Visits Re quested Visits Authorized [id number] Closed 08/22/2023 02/21/2024 999 0 Encounter Details Date Type Department Care Team (Late st Contact Info) Description 08/29/2023 5:30 AM EST Treatment Hemodialysis [facility] Lucas [...] as of this encounter (statuses as of 10/07/2023) Medications Medication Sig Dispensed Refills Start Date [...] as of this encounter (statuses as of 10/07/2023) Active Problems Problem Noted Date Diagnosed Date [...] as of this encounter (statuses as of 10/07/2023) Resolved Problems Problem Noted Date Diagnosed Date Resolved Date Dyslipidemia, goal to be determined 08/27/2009 11/21/2013 Overview: Per Lipid Taxonomy. PURE HYPERCHOLESTEROLEM 04/25/200208/11 Overview: Per Lipid Taxonomy. 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 1 Hemoptysis 04/11/1996 08/11/1996 Overview: ICD-10 update of inactive term documented as of this encounter (statuses as of 10/07/2023) Immunizations Name Administration Dates Next Due COVID-19 mRNA, LNP-s, No Pre serve, 2-Dose Series (Moderna) 11/23/2020,10/18/2020 DTP Vaccine 1981,1981,1981 HEP B - Hepatitis B (Dialysis/Immumocomp Pt) 05/02/2023,04/04/2023 MMR - Measles/Mumps/Rubella Vaccine 05/11/1982 OPV - Polio Virus Vaccine (Oral) 1981,04/11 Pneumococcal Conjugate Vacci ne, 20-valent ([id number]) 11/17/2022 Pneumococcal Polysaccharide PPV23 (Pneumovax) 02/03/2004 Seasonal [...] Sign Reading Time Taken Comments Blood Pressure 116/73 08/29/2023 9:42 AM EST Pulse 77 08/29/2023 9:42 AM EST Temperature 36.6 C (97.9 F) 08/29/2023 9:42 AM ES T Respiratory Rate 16 08/29/2023 9:42 AM EST Oxygen Saturation - - Inhaled [...] Miscellaneous Notes * Dialysis Rounding Note - Osito Farfan MD - 08/29/2023 5:30 AM EST DIALYSIS ROUNDING NOTE Name: Chandan Donato Chandan Donato was seen and examined while on dialysis. Professional oversight of the patient's dialysis care, access care and dialysis related co-morbidities were addressed as necessary with the patient and/or staff. Doing well and No complaints. Exam: Jugular venous pulsation 6 cm, no edema. No changes to dialysis today., Cardiac: Normal exam, and Pulmonary: B/L clear. Patient seen and discussed with Dr. Contreras. Osito Farfan MD Fellow Nephrology [facility] documented in this encounter Plan of Treatment Upcoming Encounters Date Type Department Care Team (Late st Contact Info) Description 09/28/2023 Plan of Care Documentation Home Dialysis [facility] [address] [place] [address] 10/12/2023 8:00 AM EST Treatment Home Dialysis [facility] [address] [place] [address] Nurse, [address] [employer] [address] [place] [address] 10/12/2023 1:00 PM EST Nurse Only Home Dialysis [facility] [address] [place], [place] [address] Nurse, [address] [employer] [address] [place] [address] 11/03/2023 1:00 PM EST Office Visit Home Dialysis [facility] [address] [place] [address] [facility] Peritoneal Dialysis [address] [place] [address] 11/10/2023 8:00 AM EST Treatment Home Dialysis [facility] [address] [place] [address] Nurse, [address] [employer] [address] [place] [address] 11/10/2023 1:00 PM EST Nurse Only Home Dialysis [place] [address] Nurse, [address] [employer] [address] [place] [address] 12/04/2023 1:00 PM EDT Office Visit Home Dialysis [facility] [address] [place] [address] [facility], Peritoneal Dialysis [address] [place] [address] 12/11/2023 8:00 AM EDT Treatment Home Dialysis [facility] [address] [place] [address] Nurse, [address] [employer] [address] [place] [address] 12/11/2023 1:00 PM EDT Nurse Only Home Dialysis [facility] [address] [place] [address] Nurse, [address] [employer] [address] [place], [place] [address] 12/26/2023 1:00 PM EDT Office Visit Home Dialysis [facility] [address], [place] [address] [facility], Peritoneal Dialysis [address] [place] [address] 01/10/2024 8:00 AM EDT Treatment Home Dialysis [facility] [address], [place] [phone] Nurse, Lance [address] [employer] [address], [place] [address] 01/10/2024 1:00 PM EDT Nurse Only Home Dialysis [facility] [address], [place] [phone] Nurse, Lance [address] [employer] [address] [place] [address] 02/08/2024 1:00 PM EDT Office Visit Home Dialysis [facility] [address] [place], [place] [address] [facility] Peritoneal Dialysis [address] [place] [facility] [place] [address] 02/10/2024 8:00 AM EDT Treatment Home Dialysis [facility] [address] [place], [place] [address] Nurse, [address] [employer] [address] [place] [address] 02/12/2024 1:00 PM EDT Nurse Only Home Dialysis [facility] [address] [place], [place] [address] Nurse, [address] [employer] [address], [place] [address] 03/05/2024 1:00 PM EDT Office Visit Home Dialysis [facility] [address] [place] [address] [facility], Peritoneal Dialysis [address] [place] [address] 03/11/2024 8:00 AM EDT Treatment Home Dialysis [facility] [address], [place] [phone] Nurse, Lance [employer] [facility] [address], [place] [address] 03/11/2024 1:00 PM EDT Nurse Only Home Dialysis [facility] [address], [place] [phone] Nurse, Lance [address] [employer] [address], [place] [address] 03/29/2024 1:00 PM EDT Office Visit Home Dialysis [facility] [address], [place] [address] [facility], Peritoneal Dialysis [address] [place] [facility] [place] [address] 04/11/2024 8:00 AM EDT Treatment Home Dialysis [facility] [address], [place] [address] Nurse, Lance [employer] [address], [place] [address] 04/11/2024 1:00 PM EDT Nurse Only Home Dialysis [facility] [address], [place] [address] Nurse, Lance [employer] [address], [place] [address] 04/29/2024 1:00 PM EDT Office Visit Home Dialysis [facility] [address], [place] [address] [facility], Peritoneal Dialysis [address] [facility] [place], [place] [address] 05/12/2024 8:00 AM EDT Treatment Home Dialysis [facility] [address], [place] [phone] Nurse, Lance [address] [facility] [address], [place] [address] 05/14/2024 1:00 PM EDT Nurse Only Home Dialysis [facility] [address] [phone] Nurse, Lance [address] [employer] [address] [place], [place] 06/07/2024 1:00 PM EDT Office Visit Home Dialysis [facility] [address], [place] [phone] [facility] Peritoneal Dialysis [address] [place] [address] 06/11/2024 8:00 AM EDT Treatment Home Dialysis [facility] [address], [place] [phone] Nurse, [address] [facility] [address], [place] [address] 06/11/2024 1:00 PM EDT Nurse Only Home Dialysis [facility] [address] [place], [place] [address] Nurse, Lance [employer] [facility] [address], [place] [address] 06/25/2024 1:00 PM EDT Office Visit Home Dialysis [facility] [address], [place] [address] [facility], Peritoneal Dialysis [address] [place] [address] 07/12/2024 8:00 AM EDT Treatment Home Dialysis [facility] [address], [place] [phone] Nurse, Lance [address] [facility] [address], [place] [address] 07/12/2024 1:00 PM EDT Nurse Only Home Dialysis [facility] [address], [place] [phone] Nurse, Lance [employer] [address] [id number] 07/22/2024 1:00 PM EST Office Visit Home Dialysis [facility] [address] [place] [address] [facility], Peritoneal Dialysis [address] [place], [place] [address] 08/11/2024 8:00 AM EST Treatment Home Dialysis [facility] [address], [place] [phone] Nurse, [employer] [address] [place] [address] 08/12/2024 1:00 PM EST Nurse Only Home Dialysis [facility] [address] [facility] [address] [place], [place] [address] Nurse, [employer] [address], [place] [address] 08/28/2024 1:00 PM EST Office Visit Home Dialysis [facility] [address], [place] [address] [facility] Peritoneal Dialysis [address] [place], [place] [address] Health Maintenance Due Date Last Done Comments [...] 4 mcg 4 mcg, Intravenous, ONCE, On Mon08/29/23 at 0715, For 1 dose Given 08/29/2023 8:46 AM EST 4 mcg Epoetin Sloan 619[address] UNIT/ML inj 7,600 Units 7,600 Units, Intravenous, ONCE, On Mon08/29/23 at 0715, For 1 dose Given 08/29/2023 8:46 AM EST 7,600 Units hEParin 1,000 unit/mL infusion for dialysis 500 Units/hr (0.5 mL/hr), Hemodialysis, CONTINUOUS, Starting on Mon08/29/23 at 0715, Until Mon08/29/23 at 1457, Maintenance: Stop 1 hour before dialysis end in AVF/AVG. Continue through dialysis in CVC. The total delivered dose is approximately 2,500 to 5,000 units, based on weight and treatment duration assumptions Start Infusion 08/29/2023 5:38 AM EST 500 Units/hr 0.5 mL/hr hEParin 1000 UNIT/ML inj 2,000 Units 2,000 Units, Intravenous, ONCE, On Mon08/29/23 at 0715, For 1 dose, Loading dose Given 08/29/2023 5:38 AM EST 2,000 Units sodium citrate 4% (Anticoagulant Sodium Citrate) inj 2.5 mL 2.5 mL, Dialysis catheter, ONCE, On Mon08/29/23 at 0715, For 1 dose, ARTERIAL For use only to lock dialysis catheter after dialysis Given 08/29/2023 9:43 AM EST 2.5 mL sodium citrate 4% (Anticoagulant Sodium Citrate) inj 2.5 mL 2.5 mL, Dialysis catheter, ONCE, On Mon08/29/23 at 0715, For 1 dose, VENOUS For use only to lock dialysis catheter after dialysis Given 08/29/2023 9:43 AM EST 2.5 mL documented in [...] Advance Directives occurred with: Patient Care Teams [employer] Relationship Specialty Start Date End Date Tomer Garner MD [address] [place] [address] PCP - General 09/19/02 documented as of this encounter
--- OUTSIDE RECORDS SUMMARY | 2024-03-17 14:35 | External Medical Summary | Summary of Care ---
Author Name Unknown Organization [facility] Address [address] [place] [address] Phone [phone] Care Team Providers Care Retail Sales Director Name Role Phone Tomer Garner MD Primary Care Provider [phone] Reason for Visit * Reason Comments Hemodialysis * Episode Based Medications (Routine) - Closed Specialty Diagnoses / Procedures Referred By Contac t Referred To Contact Diagnoses ESRD on peritoneal dialysis (HCC) 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 chronic kidney disease, not on chronic dialysis (HCC) Procedures RI EPOETIN SLOAN, NON-ESRD RI EPOETIN SLOAN, 100 UNITS ESRD Yonny Saldivar MD [address] [place] [address] [address] [place] [address] Referral ID Status Reason Start Date Expiration Date Visits Re quested Visits Authorized [id number] Closed 08/22/2023 02/21/2024 999 0 Encounter Details [...] (Oral) 1981,04/11 Pneumococcal Conjugate Vacci ne, 20-valent ([id number]) 11/17/2022 Seasonal Influenza, PF, 6 M & [...] Home Dialysis [address], [place] [address] 10/12/2023 8:00 AM EST Treatment Home Dialysis [address], [place] [address] Nurse, [address] [employer] [address] [place], [place] [address] 10/12/2023 1:00 PM EST Nurse Only Home Dialysis [facility] [address] [place], [place] [address] Nurse, [address] [employer] [address] [place] [address] 11/03/2023 1:00 PM EST Office Visit Home Dialysis [facility] [address] [place] [address] [facility] [address] [place] [address] 11/10/2023 8:00 AM EST Treatment Home Dialysis [facility] [address] [place], [place] [phone] Nurse, [address] [employer] [address] [place] [address] 11/10/2023 1:00 PM EST Nurse Only Home Dialysis [facility] [address] [place], [place] [phone] Nurse, [address] [employer] [address] [place] [address] 12/04/2023 1:00 PM EDT Office Visit Home Dialysis [facility] [address] [place], [place] [address] [facility] [place] [address] [facility] [place] [address] 12/11/2023 8:00 AM EDT Treatment Home Dialysis [facility] [address] [place], [place] [phone] Nurse, [address] [employer] [address] [place] [address] 12/11/2023 1:00 PM EDT Nurse Only Home Dialysis [address], [place] [address] Nurse, [address] [employer] [address] [place] [address] 12/26/2023 1:00 PM EDT Office Visit Home Dialysis [facility] [address] [place] [address] [facility] [place] [address] [place] [address] 01/10/2024 8:00 AM EDT Treatment Home Dialysis [facility] [address] [place] [address] Nurse, [address] [employer] [address] [place] [address] 01/10/2024 1:00 PM EDT Nurse Only Home Dialysis [facility] [address] [place], [place] [address] Nurse, [address] [employer] [address] [place] [address] 02/08/2024 1:00 PM EDT Office Visit Home Dialysis [facility] [address] [place] [address] [facility] [place] [address] [place] [facility] [place] [address] 02/10/2024 8:00 AM EDT Treatment Home Dialysis [facility] [address] [place], [place] [address] Nurse, [address] [employer] [address] [place] [address] 02/12/2024 1:00 PM EDT Nurse Only Home Dialysis [facility] [address] [place] [address] Nurse, [address] [employer] [address] [place] [address] 03/05/2024 1:00 PM EDT Office Visit Home Dialysis [facility] [address] [place] [address] [facility], Peritoneal Dialysis [address] [place] [address] 03/11/2024 8:00 AM EDT Treatment Home Dialysis [facility] [address] [place], [place] [address] Nurse, Lance [employer] [address] [place], [place] [address] 03/11/2024 1:00 PM EDT Nurse Only Home Dialysis [facility] [address], [place] [phone] Nurse, [address] [employer] [address], [place] [address] 03/29/2024 1:00 PM EDT Office Visit Home Dialysis [facility] [address], [place] [address] [facility] [place] [address] [place] [address] 04/11/2024 8:00 AM EDT Treatment Home Dialysis [facility] [address], [place] [phone] Nurse, Lance [employer] [address], [place] [address] 04/11/2024 1:00 PM EDT Nurse Only Home Dialysis [facility] [address] [place], [place] [address] Nurse, [address] [employer] [address] [place] [address] 04/29/2024 1:00 PM EDT Office Visit Home Dialysis [facility] [address] [place], [place] [address] [facility] [place] [address] [place] [address] 05/12/2024 8:00 AM EDT Treatment Home Dialysis [facility] [address] [place] [address] Nurse, Lance [address] [facility] [address], [place] [address] 05/14/2024 1:00 PM EDT Nurse Only Home Dialysis [facility] [address] [place], [place] [phone] Nurse, [address] [employer] [address] [place], [place] [address] 06/07/2024 1:00 PM EDT Office Visit Home Dialysis [facility] [address] [facility] [address], [place] [phone] [facility] [place] [address] [place] [address] 06/11/2024 8:00 AM EDT Treatment Home Dialysis [facility] [address], [place] [phone] Nurse, [address] [employer] [address] [place], [place] [address] 06/11/2024 1:00 PM EDT Nurse Only Home Dialysis [facility] [address] [place], [place] [address] Nurse, Lance [address], [place] [address] 06/25/2024 1:00 PM EDT Office Visit Home Dialysis [facility] [address] [place], [place] [address] [facility] [place] [address] [place] [address] 07/12/2024 8:00 AM EDT Treatment Home Dialysis [facility] [address] [place], [place] [address] Nurse, [address] [employer] [address] [place], [place] [address] 07/12/2024 1:00 PM EDT Nurse Only Home Dialysis [facility] [address] [place], [place] [phone] Nurse, [employer] [address], [place] [phone] 07/22/2024 1:00 PM EST Office Visit Home Dialysis [facility] [address], [place] [phone] [facility] [place] [address] [facility], [place] [address] 08/11/2024 8:00 AM EST Treatment Home Dialysis [facility] [address], [place] [phone] Nurse, [address] [employer] [address] [place], [place] [address] 08/12/2024 1:00 PM EST Nurse Only Home Dialysis [facility] [address], [place] [phone] Nurse, [employer] [address], [place] [id number] 08/28/2024 1:00 PM EST Office Visit Home Dialysis [facility] [address] [place], [place] [address] [facility] [place] [address] [facility], [place] [phone] Health Maintenance Due Date Last Done Comments [...] 6:39 AM EST 4 mcg Epoetin Sloan [address] UNIT/ML inj 7,600 Units 7,600 Units, Intravenous, [...] Directives occurred with: Patient Care Teams Retail Sales Director Relationship Specialty Start Date End Date Tomer Garner MD [address] [place] [address] PCP - General 09/19/02 documented as of this encounter
--- OUTSIDE RECORDS SUMMARY | 2024-03-17 14:35 | External Medical Summary | Summary of Care ---
Author Name Unknown Organization [facility] Address [address] [place] [address] Phone [phone] Care Team Providers Care Nuclear Officer Name Role Phone Tomer Garner MD Primary Care Provider Reason for Visit * Reason Comments Hemodialysis * Episode Based Medications (Routine) - Closed Specialty Diagnoses / Procedures Referred By Contac t Referred To Contact Diagnoses ESRD on peritoneal dialysis (HCC) 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 chronic kidney disease, not on chronic dialysis (HCC) Procedures ND EPOETIN SLOAN, NON-ESRD ND EPOETIN SLOAN, 100 UNITS ESRD Yonny Saldivar MD [address] [place] [address] [address] [place] [address] Referral ID Status Reason Start Date Expiration Date Visits Re quested Visits Authorized [id number] Closed 08/22/2023 02/21/2024 999 0 Encounter Details [...] (Oral) 1981,04/11 Pneumococcal Conjugate Vacci ne, 20-valent ([id number]) 11/17/2022 Seasonal Influenza, PF, 6 M & [...] Home Dialysis [address], [place] [address] 10/12/2023 8:00 AM EST Treatment Home Dialysis [address], [place] [address] Nurse, [address] [employer] [address] [place], [place] [address] 10/12/2023 1:00 PM EST Nurse Only Home Dialysis [facility] [address] [place], [place] [address] Nurse, [address] [employer] [address] [place] [address] 11/03/2023 1:00 PM EST Office Visit Home Dialysis [facility] [address] [place] [address] [facility] Peritoneal Dialysis [address] [place] [address] 11/10/2023 8:00 AM EST Treatment Home Dialysis [facility] [address] [place], [place] [phone] Nurse, [address] [employer] [address] [place] [address] 11/10/2023 1:00 PM EST Nurse Only Home Dialysis [facility] [address], [place] [phone] Nurse, [address] [employer] [address] [place] [address] 12/04/2023 1:00 PM EDT Office Visit Home Dialysis [facility] [address], [place] [address] [facility] Peritoneal Dialysis [address] [place] [address] 12/11/2023 8:00 AM EDT Treatment Home Dialysis [facility] [address], [place] [phone] Nurse, [address] [place] [address] 12/11/2023 1:00 PM EDT Nurse Only Home Dialysis [address], [place] [address] Nurse, [address] [employer] [address] [place] [address] 12/26/2023 1:00 PM EDT Office Visit Home Dialysis [facility] [address] [place] [address] [facility] Peritoneal Dialysis [address] [place] [address] 01/10/2024 8:00 AM EDT Treatment Home Dialysis [facility] [address] [place] [address] Nurse[address] [employer] [address] [place] [address] 01/10/2024 1:00 PM EDT Nurse Only Home Dialysis [facility] [address] [place], [place] [address] Nurse, [address] [employer] [address] [place] [address] 02/08/2024 1:00 PM EDT Office Visit Home Dialysis [facility] [address] [place] [address] [facility] Peritoneal Dialysis [address] [facility] [place] [address] 02/10/2024 8:00 AM EDT Treatment Home Dialysis [facility] [address] [place], [place] [address] Nurse, [address] [employer] [address] [place] [address] 02/12/2024 1:00 PM EDT Nurse Only Home Dialysis [facility] [address] [place] [address] Nurse, [address] [employer] [address] [place] [address] 03/05/2024 1:00 PM EDT Office Visit Home Dialysis [facility] [address] [place] [address] [facility], Peritoneal Dialysis [address] [place] [address] 03/11/2024 8:00 AM EDT Treatment Home Dialysis [facility] [address] [place], [place] [address] Nurse, Lance [employer] [address], [place] [address] 03/11/2024 1:00 PM EDT Nurse Only Home Dialysis [facility] [address], [place] [phone] Nurse, [address], [place] [address] 03/29/2024 1:00 PM EDT Office Visit Home Dialysis [facility] [address], [place] [address] [facility] Peritoneal Dialysis [address] [place] [address] 04/11/2024 8:00 AM EDT Treatment Home Dialysis [facility] [address], [place] [phone] Nurse, Lance [employer] [address] [place], [place] [address] 04/11/2024 1:00 PM EDT Nurse Only Home Dialysis [facility] [address] [place], [place] [address] Nurse, [address] [place] [address] 04/29/2024 1:00 PM EDT Office Visit Home Dialysis [facility] [address], [place] [address] [facility] Peritoneal Dialysis [address] [place] [address] 05/12/2024 8:00 AM EDT Treatment Home Dialysis [facility] [address] [place] [address] Nurse, Lance Lopez [address], [place] [address] 05/14/2024 1:00 PM EDT Nurse Only Home Dialysis [facility] [address] [place], [place] [phone] Nurse, [address] [employer] [address] [place], [place] [address] 06/07/2024 1:00 PM EDT Office Visit Home Dialysis [facility] [address], [place] [phone] [facility] Peritoneal Dialysis [address] [place] [address] 06/11/2024 8:00 AM EDT Treatment Home Dialysis [facility] [address], [place] [phone] Nurse, [address] [facility] [place], [place] [address] 06/11/2024 1:00 PM EDT Nurse Only Home Dialysis [facility] [address] [place], [place] [address] Nurse, Lance [address], [place] [address] 06/25/2024 1:00 PM EDT Office Visit Home Dialysis [facility] [address], [place] [address] [facility] Peritoneal Dialysis [address] [place] [address] 07/12/2024 8:00 AM EDT Treatment Home Dialysis [facility] [address] [place], [place] [address] Nurse, [address] [employer] [address] [place], [place] [address] 07/12/2024 1:00 PM EDT Nurse Only Home Dialysis [address] [place], [place] [phone] Nurse, [employer] [address], [place] [phone] 07/22/2024 1:00 PM EST Office Visit Home Dialysis [facility] [address], [place] [phone] [facility] Peritoneal Dialysis [address] [facility], [place] [id number] 08/11/2024 8:00 AM EST Treatment Home Dialysis [facility] [address], [place] [phone] Nurse, [address] [employer] [address] [place], [place] [address] 08/12/2024 1:00 PM EST Nurse Only Home Dialysis [address] [address], [place] [phone] Nurse, [employer] [address], [place] [phone] 08/28/2024 1:00 PM EST Office Visit Home Dialysis [facility] [address] [place], [place] [address] [facility] Peritoneal Dialysis [address] [facility], [place] [address] Health Maintenance Due Date Last Done Comments [...] 6:39 AM EST 4 mcg Epoetin Sloan [address] UNIT/ML inj 7,600 Units 7,600 Units, Intravenous, [...] Advance Directives occurred with: Patient Care Teams Nuclear Officer Relationship Specialty Start Date End Date Tomer Garner MD [address] [place] [address] PCP - General 09/19/02 documented as of this encounter
--- OUTSIDE RECORDS SUMMARY | 2024-03-17 14:35 | External Medical Summary | Summary of Care ---
Author Name Unknown Organization [facility] Address [address] [place] [address] Phone [phone] Care Team Providers Care Angle Bender Name Role Phone Tomer Garner MD Primary [...] UNITS ESRD Yonny Saldivar MD [address] [place] [address] [place] [address] Referral ID Status Reason Start Date Expiration Date Visits Re quested Visits Authorized [id number] Closed 08/22/2023 02/21/[phone] Encounter Details Date Type Department Care Team (Late st Contact Info) Description 08/22/2023 5:30 AM EST Treatment Hemodialysis [facility] [...] (Oral) 1981,04/11 Pneumococcal Conjugate Vacci ne, 20-valent ([id number]) 11/17/2022 Pneumococcal Polysaccharide PPV23 (Pneumovax) 02/03/2004 Seasonal [...] Sign Reading Time Taken Comments Blood Pressure 114/66 08/22/2023 9:55 AM EST Pulse 79 08/22/2023 9:55 AM EST Temperature 36.5 C (97.7 F) 08/22/2023 9:55 AM ES T Respiratory Rate 18 08/22/2023 9:55 AM EST Oxygen Saturation - - Inhaled [...] of this encounter Miscellaneous Notes * Dialysis Monthly Comprehensive Note - Osito Farfan MD - 08/22/2023 5:30 AM EST DIALYSIS MONTHLY COMPREHENSIVE Name: Chandan Donato Summary: Patient was seen and evaluated. Comments: Phosphorus slightly better from 9.7-7.8 today. He is taking calcium acetate 6 tablets a day. Counseled to increase the dose to 3 capsules with meals. Adequacy: Lab Results Component Value Date KT/V - [facility] 1.40 08/22/2023 Dialysis Prescription: Hemodialysis Treatment - OP 3 times a week Dialyzer: Optiflux 250 Duration of Treatment (hrs): 4 Dialysate: K+Ca (mEq/L): 2K+ 2.5 Ca Dialysate: Bicarb (mEq/L): 38 Blood Flow Rate (mL/min): 400 Dialysate Flow Rate (mL/min): 700 Dialysate Temperature (Centigrade): 36 Dialysate: Sodium (mEq/L): 138 Sodium Modeling Profile: N/A Estimated Dry Weight (kg): 122.5 Adequacy target met. BP/ Volume Management: Pre BP Sittin/84 Post BP Sittin/66 Blood pressure controlled and Interdialytic weight gain acceptable Vascular access: Vascular access reviewed and Current access is working well Anemia: Lab Results Component Value Date HGB 7.8 (L) 12/27/1996 HGB - [facility] 9.7 (L) 08/22/2023 HGB - [facility] 13.0 (L) 10/07/2020 FERRITIN 729.8 12/16/1996 FERRITIN - [facility] 588 (H) 07/25/2023 FERRITIN - [facility] 51.7 08/11/2010 TRANSFERRIN SATURATION PERCENT - [facility] 38 08/22/2023 TRANSFERRIN SATURATION PERCENT - [facility] 33 08/11/2010 Anemia reviewed and Anemia targets met JESSIE Meds: Epoetin Sloan 61991 UNIT/ML inj 7,600 Units 7,600 Units, Intravenous, Every visit, ONCE Iron Meds: Iron Sucrose (Venofer) inj 100 mg 100 mg, Intravenous, On: 08/24/2023, ONCE JESSIE adjusted per protocol and Iron administered per protocol Bone Mineral: Current Outpatient Medications Medication Sig Dispense Refill Metoprolol Succinate ER 100 MG Oral Tablet Extended Release 24 Hour (Toprol XL) Take 1 Tablet (100 mg) by mouth in the morning. 120 Tablet 3 Lovastatin 10 MG Oral Tablet Take 1 Tablet by mouth in the morning. 90 Tablet 3 Mycophenolate Mofetil 500 MG Oral Tablet (CellCept) Take 1 Tablet by mouth in the morning and 1 Tablet before bedtime. 360 Tablet 1 Losartan Potassium 25 MG Oral Tablet (Cozaar) Take 1 Tablet by mouth in the morning. 90 Tablet 3 cycloSPORINE Modified 25 MG Oral Capsule Take 2 capsules in the morning and 2 capsules in the evening 360 Capsule 3 Folic Acid 1 MG Oral Tablet Take 1 Tablet by mouth in the morning. 90 Tablet 1 Febuxostat 80 MG Oral Tablet (Uloric) Take 1 Tablet by mouth in the morning. 90 Tablet 3 Cinacalcet HCl 30 MG Oral Tablet (Sensipar) Take 1 Tablet by mouth in the morning. 90 Tablet 3 NIFEdipine ER 30 MG Oral Tablet Extended Release 24 Hour (Adalat CC) Take 1 Tablet by mouth in the morning. 60 Tablet 6 Calcium Acetate (Phos Binder) 667 MG Oral [...] needed for Pain, Severe. 12 Capsule 0 Current Facility-Administered Medications Medication Dose Route Frequency Provider Last Rate Last Admin hEParin 1,000 unit/mL infusion for dialysis 500 Units/hr Hemodialysis Continuous Yonny Saldivar MD 0.5 mL/hr at 08/22/23 0548 500 Units/hr at 08/22/23 0548 Facility-Administered Medications Ordered in Other Visits Medication Dose Route Frequency Provider Last Rate Last Admin hEParin 1,000 unit/mL infusion for dialysis 500 Units/hr Hemodialysis Continuous Yonny Saldivar MD Finish Infusion at 05/16/23 0935 hEParin 1,000 unit/mL infusion for dialysis 500 Units/hr Hemodialysis Continuous Yonny Saldivar MD Finish Infusion at 05/30/23 0950 Lab Results Component Value Date PTH 80.1 (H) 12/23/1996 PTH - [facility] 395 (H) 07/25/2023 PTH - [facility] 361 (H) 12/07/2017 CALCIUM - [facility] 8.1 (L) 08/22/2023 CALCIUM - [facility] 9.6 10/07/2020 CALCIUM PHOSPHORUS PRODUCT - [facility] 63.2 08/22/2023 CALCIUM, IONIZED - [facility] 1.25 10/04/2001 CALCIUM, TOTAL 9.2 12/23/1996 CALCIUM-IONIZED 1.23 12/23/1996 PHOSPHORUS 5.2 (H) 12/27/1996 PHOSPHORUS - [facility] 7.8 (H) 08/22/2023 PHOSPHORUS - [facility] 4.4 10/07/2020 25OH VITAMIN D TOTAL 20 12/07/2017 Bone mineral parameters reviewed, Calcium controlled, Hyperphosphatemia noted, Phosphorus binders adjusted, Patient counseled on dietary compliance, and PTH Elevated Nutrition: Lab Results Component Value Date ALBUMIN 4.2 12/23/1996 ALBUMIN - [facility] 4.2 08/22/2023 ALBUMIN - [facility] 4.6 10/07/2020 ALBUMIN / CREATININE RATIO, URINE - [facility] 2,057 (H) 10/19/2022 ALBUMIN / CREATININE RATIO, URINE - [facility] 1,125 (H) 10/07/2020 ALBUMIN, RANDOM URINE - [facility] 131.66 10/19/2022 ALBUMIN, RANDOM URINE - [facility] 207.03 10/07/2020 POTASSIUM 5.3 (H) 12/27/1996 POTASSIUM - [facility] 4.4 08/22/2023 POTASSIUM - [facility] 4.0 10/07/2020 POTASSIUM, WHOLE BLOOD - [facility] 4.7 08/21/2023 POTASSIUM-URINE 41 06/28/1996 Lab Results Component Value Date/Time CO2 - [facility] 25 08/22/2023 06:26 AM CO2 - [facility] 25 10/07/2020 02:34 PM CO2-TOTAL 24.4 12/27/1996 08:57 AM Nutrition reviewed and Electrolytes reviewed Prescription compliance and Dialysis Frequency: Attends dialysis routinely Exam: Vitals reviewed Cardiovascular: Heart regular Pulmonary: Lungs clear Edema: No Edema Osito Farfan MD documented in this encounter Plan of Treatment Upcoming Encounters Date Type Department Care Team (Late st Contact Info) Description 09/28/2023 Plan of Care Documentation Home Dialysis [address] [place] [address] [id number] 10/12/2023 8:00 AM EST Treatment Home Dialysis [facility] [address] [id number] Nurse, [place] [address] 10/12/2023 1:00 PM EST Nurse Only Home Dialysis [facility] [address] [place] [address] Nurse, [place] [address] 11/03/2023 1:00 PM EST Office Visit Home Dialysis [facility] [address] [phone] [facility], Peritoneal Dialysis [address] [place] [address] 11/10/2023 8:00 AM EST Treatment Home Dialysis [facility] [address] [place] [address] [phone] Nurse, [address] [facility] [address] [place], [place] [address] 11/10/2023 1:00 PM EST Nurse Only Home Dialysis [facility] [address] [place], [place] [address] Nurse, [address] [facility] [address] [place] [address] 12/04/2023 1:00 PM EDT Office Visit Home Dialysis [facility] [address] [place], [place] [phone] [facility], Peritoneal Dialysis [address] [place] [address] 12/11/2023 8:00 AM EDT Treatment Home Dialysis [facility] [address] [place], [place] [phone] Nurse, Lance [address] [facility] [address] [place] [address] 12/11/2023 1:00 PM EDT Nurse Only Home Dialysis [facility] [place], [place] [phone] Nurse, Lance [address] [facility] [address] [place] [address] 12/26/2023 1:00 PM EDT Office Visit Home Dialysis [facility] [address] [place], [place] [address] [facility], Peritoneal Dialysis [address] [facility] [place] [address] 01/10/2024 8:00 AM EDT Treatment Home Dialysis [facility] [address] [place], [place] [phone] Nurse, Lance [address] [facility] [address] [place] [address] 01/10/2024 1:00 PM EDT Nurse Only Home Dialysis [address] [place], [place] [address] Nurse, [address] [facility] [address] [place] [address] 02/08/2024 1:00 PM EDT Office Visit Home Dialysis [facility] [address] [place], [place] [address] [facility], Peritoneal Dialysis [address] [place] [address] 02/10/2024 8:00 AM EDT Treatment Home Dialysis [facility] [place] [address] Nurse, [address] [facility] [address] [place] [address] 02/12/2024 1:00 PM EDT Nurse Only Home Dialysis [address] [place], [place] [phone] Nurse, [address] [facility] [address] [place] [address] 03/05/2024 1:00 PM EDT Office Visit Home Dialysis [facility] [address] [place] [address] [facility], Peritoneal Dialysis [address] [place] [facility] [place] [address] 03/11/2024 8:00 AM EDT Treatment Home Dialysis [facility] [address] [place], [place] [address] Nurse, [address] [facility] [address] [place] [address] 03/11/2024 1:00 PM EDT Nurse Only Home Dialysis [address] [place] [address] Nurse, [address] [facility] [address] [place] [address] 03/29/2024 1:00 PM EDT Office Visit Home Dialysis [facility] [address] [place], [place] [address] [facility], Peritoneal Dialysis [address] [place] [address] 04/11/2024 8:00 AM EDT Treatment Home Dialysis [facility] [place], [place] [address] Nurse, [employer] [address], [place] [address] 04/11/2024 1:00 PM EDT Nurse Only Home Dialysis [facility] [place], [place] [phone] Nurse, Lance [employer] [facility] [address], [place] [address] 04/29/2024 1:00 PM EDT Office Visit Home Dialysis [facility] [place], [place] [address] [facility], Peritoneal Dialysis [address] [place] [facility] [place] [address] 05/12/2024 8:00 AM EDT Treatment Home Dialysis [facility] [address] [place], [place] [address] Nurse, [place] [employer] [address] [place] [address] 05/14/2024 1:00 PM EDT Nurse Only Home Dialysis [address] [place], [place] [address] Nurse, [employer] [address] [place] [address] 06/07/2024 1:00 PM EDT Office Visit Home Dialysis [facility] [place], [place] [address] [facility], Peritoneal Dialysis [address] [place] [facility] [place] [address] 06/11/2024 8:00 AM EDT Treatment Home Dialysis [address] [place] [address] Nurse, Lance Lopez [facility] [address], [place] [address] 06/11/2024 1:00 PM EDT Nurse Only Home Dialysis [facility] [place], [place] [phone] Nurse, [place] Lopez [facility] [address], [place] [address] 06/25/2024 1:00 PM EDT Office Visit Home Dialysis [facility] [address], [place] [address] [facility], Peritoneal Dialysis [address] [place] [address] 07/12/2024 8:00 AM EDT Treatment Home Dialysis [facility] [address], [place] [phone] Nurse, [place] [employer] [address], [place] [address] 07/12/2024 1:00 PM EDT Nurse Only Home Dialysis [address] [place], [place] [address] Nurse, [place] Lopez [facility] [address], [place] [address] 07/22/2024 1:00 PM EST Office Visit Home Dialysis [facility] [address], [place] [address] [facility], Peritoneal Dialysis [address] [place] [address] 08/11/2024 8:00 AM EST Treatment Home Dialysis [facility] [address] [place], [place] [address] Nurse, [place] Lopez [facility] [address], [place] [address] 08/12/2024 1:00 PM EST Nurse Only Home Dialysis [facility] [address] [place] [address] Nurse, [place] [address] [facility] [address] [place] [address] 08/28/2024 1:00 PM EST Office Visit Home [...] Procedure Name Priority Date/Time Associated Diagnosis Comments POST-DIALYSIS BUN BATTERY STAT 08/22/2023 10:57 AM EST ESRD (end stage renal disease) [...] Yonny Saldivar MD LAB BLOOD ORDERAB LES [facility] Address City/State/[facility] Co de Phone Number [facility] [address] [place] [address] documented in this encounter Visit Diagnoses Diagnosis [...] 4 mcg 4 mcg, Intravenous, ONCE, On Mon08/22/23 at 0830, For 1 dose Given 08/22/2023 8:01 AM EST 4 mcg hEParin 1,000 unit/mL infusion for dialysis 500 Units/hr (0.5 mL/hr), Hemodialysis, CONTINUOUS, Starting on Mon08/22/23 at 0830, Until Mon08/22/23 at 1708, Maintenance: Stop 1 hour before dialysis end in AVF/AVG. Continue through dialysis in CVC. The total delivered dose is approximately 2,500 to 5,000 units, based on weight and treatment duration assumptions Start Infusion 08/22/2023 5:48 AM EST 500 Units/hr 0.5 mL/hr hEParin 1000 UNIT/ML inj 2,000 Units 2,000 Units, Intravenous, ONCE, On Mon08/22/23 at 0830, For 1 dose, Loading dose Given 08/22/2023 5:48 AM EST 2,000 Units sodium citrate 4% (Anticoagulant Sodium Citrate) inj 2.5 mL 2.5 mL, Dialysis catheter, ONCE, On Mon08/22/23 at 0830, For 1 dose, ARTERIAL For use only to lock dialysis catheter after dialysis Given 08/22/2023 9:50 AM EST 1.9 mL sodium citrate 4% (Anticoagulant Sodium Citrate) inj 2.5 mL 2.5 mL, Dialysis catheter, ONCE, On Mon08/22/23 at 0830, For 1 dose, VENOUS For use only to lock dialysis catheter after dialysis Given 08/22/2023 9:50 AM EST 2.1 mL documented in this encounter Advance Directives [...] Advance Directives occurred with: Patient Care Teams Angle Bender Relationship Specialty Start Date End Date Tomer Garner MD [address] [place] [address] PCP - General 09/19/02 documented as of this encounter
--- OUTSIDE RECORDS SUMMARY | 2024-03-17 14:35 | External Medical Summary | Summary of Care ---
Author Name Unknown Organization [facility] Address [address] [place] [address] Phone [phone] Care Team Providers Care Shingle Grader Name Role Phone Tomer Garner MD Primary Care Provider [phone] Reason for Visit * Reason Comments Hemodialysis * Episode Based Medications (Routine) - Closed Specialty Diagnoses / Procedures Referred By Contac t Referred To Contact Diagnoses ESRD on peritoneal dialysis (HCC) 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 chronic kidney disease, not on chronic dialysis (HCC) Procedures CT EPOETIN SLOAN, NON-ESRD CT EPOETIN SLOAN, 100 UNITS ESRD Yonny Saldivar MD [address] [place] [address] [address] [place] [address] Referral ID Status Reason Start Date Expiration Date Visits Re quested Visits Authorized [id number] Closed 08/22/2023 02/21/2024 999 0 Encounter Details Date Type Department Care Team (Late st Contact Info) Description 08/26/2023 5:30 AM EST Treatment Hemodialysis [facility] [...] (Oral) 1981,04/11 Pneumococcal Conjugate Vacci ne, 20-valent ([id number]) 11/17/2022 Seasonal Influenza, PF, 6 M & [...] Sign Reading Time Taken Comments Blood Pressure 125/73 08/26/2023 9:56 AM EST Pulse 75 08/26/2023 9:56 AM EST Temperature 36.6 C (97.9 F) 08/26/2023 9:56 AM ES T Respiratory Rate - - Oxygen [...] [facility] [address] [facility] [address] [place] [address] [id number] 10/12/2023 8:00 AM EST Treatment Home Dialysis [facility] [address] [place] [address] [place] [address] [id number] 10/12/2023 1:00 PM EST Nurse Only Home Dialysis [facility] [address] [phone] [place] [address] 11/03/2023 1:00 PM EST Office Visit Home Dialysis [facility] [address] [place] [phone] [facility], Peritoneal Dialysis [address] [facility] [place] [address] 11/10/2023 8:00 AM EST Treatment Home Dialysis [facility] [address] [place] [address] [phone] Nurse, [address] [facility] [address] [place], [place] [address] 11/10/2023 1:00 PM EST Nurse Only Home Dialysis [address] [place], [place] [address] Nurse, [address] [facility] [address] [place] [address] 12/04/2023 1:00 PM EDT Office Visit Home Dialysis [facility] [address] [place], [place] [phone] [facility], Peritoneal Dialysis [address] [place] [address] 12/11/2023 8:00 AM EDT Treatment Home Dialysis [facility] [address] [place], [place] [phone] Nurse, [address] [facility] [address] [place] [address] 12/11/2023 1:00 PM EDT Nurse Only Home Dialysis [address] [place], [place] [phone] Nurse, [address] [facility] [address] [place] [address] 12/26/2023 1:00 PM EDT Office Visit Home Dialysis [facility] [address] [place], [place] [address] [facility], Peritoneal Dialysis [address] [place] [facility] [address] 01/10/2024 8:00 AM EDT Treatment Home Dialysis [facility] [address] [place], [place] [phone] Nurse, [address] [facility] [address] [place] [address] 01/10/2024 1:00 PM EDT Nurse Only Home Dialysis [address] [place], [place] [address] Nurse, [address] [facility] [address] [place] [address] 02/08/2024 1:00 PM EDT Office Visit Home Dialysis [address] [place], [place] [address] [facility], Peritoneal Dialysis [address] [place] [address] 02/10/2024 8:00 AM EDT Treatment Home Dialysis [address] [place] [address] Nurse, [address] [employer] [address] [place] [address] 02/12/2024 1:00 PM EDT Nurse Only Home Dialysis [address] [place], [place] [phone] Nurse, [address] [facility] [address] [place] [address] 03/05/2024 1:00 PM EDT Office Visit Home Dialysis [address] [place] [address] [facility], Peritoneal Dialysis [address] [place] [facility] [place] [address] 03/11/2024 8:00 AM EDT Treatment Home Dialysis [address] [place], [place] [address] Nurse, [address] [facility] [address] [place] [address] 03/11/2024 1:00 PM EDT Nurse Only Home Dialysis [address] [place] [address] Nurse, [address] [facility] [address] [place] [address] 03/29/2024 1:00 PM EDT Office Visit Home Dialysis [facility] [place], [place] [address] [facility], Peritoneal Dialysis [address] [place] [address] 04/11/2024 8:00 AM EDT Treatment Home Dialysis [address] [place], [place] [address] Nurse, [employer] [address], [place] [address] 04/11/2024 1:00 PM EDT Nurse Only Home Dialysis [address] [place], [place] [phone] Nurse, [employer] [facility] [address], [place] [address] 04/29/2024 1:00 PM EDT Office Visit Home Dialysis [address] [place], [place] [address] [facility], Peritoneal Dialysis [address] [place] [facility] [place] [address] 05/12/2024 8:00 AM EDT Treatment Home Dialysis [address] [place], [place] [address] Nurse, [employer] [address] [place] [address] 05/14/2024 1:00 PM EDT Nurse Only Home Dialysis [address] [place], [place] [address] Nurse, [employer] [address] [place] [address] 06/07/2024 1:00 PM EDT Office Visit Home Dialysis [address] [place], [place] [address] [facility], Peritoneal Dialysis [address] [place] [facility] [place] [address] 06/11/2024 8:00 AM EDT Treatment Home Dialysis [address] [place] [address] Nurse, [place] Lopez [facility] [address], [place] [address] 06/11/2024 1:00 PM EDT Nurse Only Home Dialysis [address] [place], [place] [phone] Nurse, [place] [facility] [address] [place], [place] [address] 06/25/2024 1:00 PM EDT Office Visit Home Dialysis [address] [place], [place] [address] [facility], Peritoneal Dialysis [address] [place] [address] 07/12/2024 8:00 AM EDT Treatment Home Dialysis [facility] [place], [place] [phone] Nurse, [place] [employer] [facility] [address] [place], [place] [address] 07/12/2024 1:00 PM EDT Nurse Only Home Dialysis [address] [place], [place] [address] Nurse, [place] Lopez [facility] [address] [place], [place] [address] 07/22/2024 1:00 PM EST Office Visit Home Dialysis [facility] [address] [place], [place] [address] [facility], Peritoneal Dialysis [address] [place] [address] 08/11/2024 8:00 AM EST Treatment Home Dialysis [facility] [address] [place], [place] [address] Nurse, [place] Lopez [facility] [address], [place] [address] 08/12/2024 1:00 PM EST Nurse Only Home [...] 4 mcg 4 mcg, Intravenous, ONCE, On 08/26/23 at 0730, For 1 dose Given 08/26/2023 7:43 AM EST 4 mcg Epoetin Sloan [address] UNIT/ML inj 7,600 Units 7,600 Units, Intravenous, ONCE, On 08/26/23 at 0730, For 1 dose Given 08/26/2023 7:43 AM EST 7,600 Units hEParin 1,000 unit/mL infusion for dialysis 500 Units/hr (0.5 mL/hr), Hemodialysis, CONTINUOUS, Starting on 08/26/23 at 0730, Until 08/26/23 at 1647, Maintenance: Stop 1 hour before dialysis end in AVF/AVG. Continue through dialysis in CVC. The total delivered dose is approximately 2,500 to 5,000 units, based on weight and treatment duration assumptions Start Infusion 08/26/2023 5:51 AM EST 500 Units/hr 0.5 mL/hr hEParin 1000 UNIT/ML inj 2,000 Units 2,000 Units, Intravenous, ONCE, On 08/26/23 at 0730, For 1 dose, Loading dose Given 08/26/2023 5:51 AM EST 2,000 Units sodium citrate 4% (Anticoagulant Sodium Citrate) inj 2.5 mL 2.5 mL, Dialysis catheter, ONCE, On 08/26/23 at 0730, For 1 dose, ARTERIAL For use only to lock dialysis catheter after dialysis Given 08/26/2023 9:55 AM EST 1.9 mL sodium citrate 4% (Anticoagulant Sodium Citrate) inj 2.5 mL 2.5 mL, Dialysis catheter, ONCE, On 08/26/23 at 0730, For 1 dose, VENOUS For use only to lock dialysis catheter after dialysis Given 08/26/2023 9:55 AM EST 2.1 mL documented in this [...] Advance Directives occurred with: Patient Care Teams Shingle Grader Relationship Specialty Start Date End Date Tomer Garner MD [address] [place] [address] PCP - General 09/19/02 documented as of this encounter
--- OUTSIDE RECORDS SUMMARY | 2024-03-17 14:35 | External Medical Summary | Summary of Care ---
Author Name Unknown Organization [facility] Address [address] [place] [address] Phone [phone] Care Team Providers Care Sample Worker Name Role Phone Tomer Garner MD [...] ESRD Yonny Saldivar MD [address] [place] [address] [place] [address] Referral ID Status Reason Start Date Expiration Date Visits Re quested Visits Authorized [id number] Closed 08/22/2023 02/21/2024 999 0 Encounter Details [...] (Oral) 1981,04/11 Pneumococcal Conjugate Vacci ne, 20-valent ([id number]) 11/17/2022 Seasonal Influenza, PF, 6 M & [...] Home Dialysis [address], [place] [address] 10/12/2023 8:00 AM EST Treatment Home Dialysis [address], [place] [address] Nurse, [address] [facility] [address] [place], [place] [address] 10/12/2023 1:00 PM EST Nurse Only Home Dialysis [address] [place], [place] [address] Nurse, [address] [facility] [address] [place] [address] 11/03/2023 1:00 PM EST Office Visit Home Dialysis [address] [place] [address] [facility] Peritoneal Dialysis [address] [place] [address] 11/10/2023 8:00 AM EST Treatment Home Dialysis [address] [place], [place] [phone] Nurse, Lance [address] [facility] [address] [place] [address] 11/10/2023 1:00 PM EST Nurse Only Home Dialysis [address] [place], [place] [phone] Nurse, Lance [address] [facility] [address] [place] [address] 12/04/2023 1:00 PM EDT Office Visit Home Dialysis [address] [place], [place] [address] [facility] Peritoneal Dialysis [address] [place] [address] 12/11/2023 8:00 AM EDT Treatment Home Dialysis [address] [place], [place] [phone] Nurse, Lance [address] [facility] [address] [place] [address] 12/11/2023 1:00 PM EDT Nurse Only Home Dialysis [address], [place] [address] Nurse, [address] [facility] [address] [place] [address] 12/26/2023 1:00 PM EDT Office Visit Home Dialysis [address] [place] [address] [facility], Peritoneal Dialysis [address] [place] [address] 01/10/2024 8:00 AM EDT Treatment Home Dialysis [address] [place] [address] Nurse, [address] [employer] [address] [place] [address] 01/10/2024 1:00 PM EDT Nurse Only Home Dialysis [address] [place], [place] [address] Nurse, [address] [facility] [address] [place] [address] 02/08/2024 1:00 PM EDT Office Visit Home Dialysis [address] [place] [address] [facility], Peritoneal Dialysis [address] [facility] [address] 02/10/2024 8:00 AM EDT Treatment Home Dialysis [address] [place], [place] [address] Nurse, [address] [facility] [address] [place] [address] 02/12/2024 1:00 PM EDT Nurse Only Home Dialysis [address] [place] [address] Nurse, [address] [facility] [address] [place] [address] 03/05/2024 1:00 PM EDT Office Visit Home Dialysis [address] [place] [address] [facility], Peritoneal Dialysis [address] [place] [address] 03/11/2024 8:00 AM EDT Treatment Home Dialysis [address] [place], [place] [address] Nurse, Lance Globant [facility] [address] [place], [place] [address] 03/11/2024 1:00 PM EDT Nurse Only Home Dialysis [address] [place], [place] [phone] Nurse, Lance [address] [facility] [address] [place], [place] [address] 03/29/2024 1:00 PM EDT Office Visit Home Dialysis [address], [place] [address] [facility], Peritoneal Dialysis [address] [place] [address] 04/11/2024 8:00 AM EDT Treatment Home Dialysis [address], [place] [phone] Nurse, Lance Globant [facility] [address] [place], [place] [address] 04/11/2024 1:00 PM EDT Nurse Only Home Dialysis [address] [place], [place] [address] Nurse, [address] [facility] [address] [place] [address] 04/29/2024 1:00 PM EDT Office Visit Home Dialysis [address], [place] [address] [facility], Peritoneal Dialysis [address] [place] [address] 05/12/2024 8:00 AM EDT Treatment Home Dialysis [address] [place] [address] Nurse, Lance Lopez [facility] [address] [place], [place] [address] 05/14/2024 1:00 PM EDT Nurse Only Home Dialysis [address] [place], [place] [phone] Nurse, Lance [address] [facility] [address] [place], [place] [address] 06/07/2024 1:00 PM EDT Office Visit Home Dialysis [address], [place] [phone] [facility], Peritoneal Dialysis [address] [place] [address] 06/11/2024 8:00 AM EDT Treatment Home Dialysis [facility], [place] [phone] Nurse, [address] [facility] [address] [place], [place] [address] 06/11/2024 1:00 PM EDT Nurse Only Home Dialysis [address] [place], [place] [address] Nurse, Lance Lopez [facility] [address] [place], [place] [address] 06/25/2024 1:00 PM EDT Office Visit Home Dialysis [address], [place] [address] [facility], Peritoneal Dialysis [address] [place] [address] 07/12/2024 8:00 AM EDT Treatment Home Dialysis [address] [place], [place] [address] Nurse, [address] [facility] [address] [place], [place] [address] 07/12/2024 1:00 PM EDT Nurse Only Home Dialysis [address] [place], [place] [phone] Nurse, [employer] [facility] [address], [place] [id number] 07/22/2024 1:00 PM EST Office Visit Home Dialysis [address], [place] [phone] [facility], Peritoneal Dialysis [address] [facility], [place] [id number] 08/11/2024 8:00 AM EST Treatment Home Dialysis [facility], [place] [phone] Nurse, Lance [address] [facility] [address] [place], [place] [address] 08/12/2024 1:00 PM EST Nurse Only Home Dialysis [address], [place] [phone] Nurse, [employer] [address], [place] [id number] 08/28/2024 1:00 PM EST Office Visit Home Dialysis [address], [place] [address] [facility], Peritoneal Dialysis [address] [facility], [place] [address] Health Maintenance Due Date Last Done Comments [...] 6:39 AM EST 4 mcg Epoetin Sloan [address] UNIT/ML inj 7,600 Units 7,600 Units, Intravenous, [...] Advance Directives occurred with: Patient Care Teams Sample Worker Relationship Specialty Start Date End Date Tomer Garner MD [address] [place] [address] PCP - General 09/19/02 documented as of this encounter
--- OUTSIDE RECORDS SUMMARY | 2024-03-17 14:35 | External Medical Summary | Summary of Care ---
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 chronic kidney disease, not on chronic dialysis (HCC) Procedures [place] EPOETIN SLOAN, NON-ESRD [place] EPOETIN SLOAN, 100 UNITS ESRD Yonny Saldivar MD [address] [place] [address] [place] [address] Referral ID Status Reason Start Date Expiration Date Visits Re quested Visits Authorized [id number] Closed 08/22/2023 02/21/2024 999 0 Encounter Details [...] (Oral) 1981,04/11 Pneumococcal Conjugate Vacci ne, 20-valent ([id number]) 11/17/2022 Pneumococcal Polysaccharide PPV23 (Pneumovax) 02/03/2004 Seasonal [...] Anemia targets met JESSIE Meds: Epoetin Sloan [address] UNIT/ML inj 7,600 Units 7,600 Units, Intravenous, [...] [address] [id number] 10/12/2023 8:00 AM EST Treatment Home Dialysis [address] [address] [phone] Nurse, [place] [address] 10/12/2023 1:00 PM EST Nurse Only Home Dialysis [address] [place] [address] Nurse, [place] [address] 11/03/2023 1:00 PM EST Office Visit Home Dialysis [facility] [address] [phone] [facility], Peritoneal Dialysis [address] [place] [address] 11/10/2023 8:00 AM EST Treatment Home Dialysis [facility] [address] [phone] Nurse, [address] [facility] [address] [place], [place] [address] 11/10/2023 1:00 PM EST Nurse Only Home Dialysis [address] [place], [place] [address] Nurse, [address] [place] [address] 12/04/2023 1:00 PM EDT Office Visit Home Dialysis [address] [place], [place] [phone] [facility], Peritoneal Dialysis [address] [place] [address] 12/11/2023 8:00 AM EDT Treatment Home Dialysis [address] [place], [place] [phone] Nurse, Lance [address] [facility] [address] [place] [address] 12/11/2023 1:00 PM EDT Nurse Only Home Dialysis [address] [place], [place] [phone] Nurse, Lance [address] [facility] [address] [place] [address] 12/26/2023 1:00 PM EDT Office Visit Home Dialysis [address] [place], [place] [address] [facility], Peritoneal Dialysis [address] [place] [address] 01/10/2024 8:00 AM EDT Treatment Home Dialysis [address] [place], [place] [phone] Nurse, Lance [address] [facility] [address] [place] [address] 01/10/2024 1:00 PM EDT Nurse Only Home Dialysis [address] [place], [place] [address] Nurse, [address] [facility] [address] [place] [address] 02/08/2024 1:00 PM EDT Office Visit Home Dialysis [address] [place], [place] [address] [facility], Peritoneal Dialysis [address] [place] [address] 02/10/2024 8:00 AM EDT Treatment Home Dialysis [address] [place] [address] Nurse, [address] [facility] [address] [place] [address] 02/12/2024 1:00 PM EDT Nurse Only Home Dialysis [address] [place], [place] [phone] Nurse, [address] [facility] [address] [place] [address] 03/05/2024 1:00 PM EDT Office Visit Home Dialysis [address] [place] [address] [facility], Peritoneal Dialysis [address] [place] [place] [address] 03/11/2024 8:00 AM EDT Treatment Home Dialysis [address] [place], [place] [address] Nurse, [address] [facility] [address] [place] [address] 03/11/2024 1:00 PM EDT Nurse Only Home Dialysis [address] [place] [address] Nurse, [address] [facility] [address] [place] [address] 03/29/2024 1:00 PM EDT Office Visit Home Dialysis [address] [place], [place] [address] [facility], Peritoneal Dialysis [address] [place] [address] 04/11/2024 8:00 AM EDT Treatment Home Dialysis [address] [place], [place] [address] Nurse, [employer] [address] [place], [place] [address] 04/11/2024 1:00 PM EDT Nurse Only Home Dialysis [address] [place], [place] [phone] Nurse, Lance [employer] [address] [place], [place] [address] 04/29/2024 1:00 PM EDT Office Visit Home Dialysis [address] [place], [place] [address] [facility], Peritoneal Dialysis [address] [place] [facility] [place] [address] 05/12/2024 8:00 AM EDT Treatment Home Dialysis [address] [place], [place] [address] Nurse, Lance [employer] [address] [place] [address] 05/14/2024 1:00 PM EDT Nurse Only Home Dialysis [address] [place], [place] [address] Nurse, [employer] [address] [place] [address] 06/07/2024 1:00 PM EDT Office Visit Home Dialysis [address] [place], [place] [address] [facility], Peritoneal Dialysis [address] [place] [facility] [place] [address] 06/11/2024 8:00 AM EDT Treatment Home Dialysis [address] [place] [address] Nurse, Lance Lopez [facility] [address] [place], [place] [address] 06/11/2024 1:00 PM EDT Nurse Only Home Dialysis [address] [place], [place] [phone] Nurse, Lance Lopez [facility] [address] [place], [place] [address] 06/25/2024 1:00 PM EDT Office Visit Home Dialysis [address], [place] [address] [facility], Peritoneal Dialysis [address] [place] [address] 07/12/2024 8:00 AM EDT Treatment Home Dialysis [address] [place], [place] [phone] Nurse, Lance [employer] [address] [place], [place] [address] 07/12/2024 1:00 PM EDT Nurse Only Home Dialysis [address] [place], [place] [address] Nurse, Lance Lopez [facility] [address], [place] [address] 07/22/2024 1:00 PM EST Office Visit Home Dialysis [address], [place] [address] [facility], Peritoneal Dialysis [address] [place] [address] 08/11/2024 8:00 AM EST Treatment Home Dialysis [address] [place], [place] [address] Nurse, Lance Lopez [facility] [place], [place] [address] 08/12/2024 1:00 PM EST Nurse Only Home [...] Yonny Saldivar MD LAB BLOOD ORDERAB LES [facility] Organization Address City/State/[facility] Co de Phone Number [facility] [address] [place] [address] documented in this encounter Visit Diagnoses Diagnosis [...] Advance Directives occurred with: Patient Care Teams Powertrain Design Engineer Relationship Specialty Start Date End Date Tomer Garner MD [address] [place] [address] PCP - General 09/19/02 documented as of this encounter
--- OUTSIDE RECORDS SUMMARY | 2024-03-17 14:35 | External Medical Summary | Summary of Care ---
Author Name Unknown Organization [facility] Address [address] [place] [address] Phone [phone] Care Team Providers Care Ammonia Worker Name Role Phone Tomer Garner MD Primary Care Provider [phone] Reason for Visit * Reason Comments Hemodialysis * Episode Based Medications (Routine) - Closed Specialty Diagnoses / Procedures Referred By Contac t Referred To Contact Diagnoses ESRD on peritoneal dialysis (HCC) 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 chronic kidney disease, not on chronic dialysis (HCC) Procedures [place] EPOETIN SLOAN, NON-ESRD [place] EPOETIN SLOAN, 100 UNITS ESRD Yonny Saldivar MD [address] [place] [address] [address] [place] [address] Referral ID Status Reason Start Date Expiration Date Visits Re quested Visits Authorized [id number] Closed 08/22/2023 02/21/2024 999 0 Encounter Details [...] (Oral) 1981,04/11 Pneumococcal Conjugate Vacci ne, 20-valent ([id number]) 11/17/2022 Pneumococcal Polysaccharide PPV23 (Pneumovax) 02/03/2004 Seasonal [...] Anemia targets met JESSIE Meds: Epoetin Sloan [address]883 UNIT/ML inj 7,600 Units 7,600 Units, Intravenous, [...] [address] [place] [id number] 10/12/2023 8:00 AM EST Treatment Home Dialysis [address] [address] [place] 1947[address] Nurse, [place] [address] 10/12/2023 1:00 PM EST Nurse Only Home Dialysis [address] [place] [address] Nurse, [place] [address] 11/03/2023 1:00 PM EST Office Visit Home Dialysis [address] [phone] [facility], Peritoneal Dialysis [address] [place] [address] 11/10/2023 8:00 AM EST Treatment Home Dialysis [facility] [phone] Nurse, [address] [employer] [address] [place], [place] [address] 11/10/2023 1:00 PM EST Nurse Only Home Dialysis [address] [place], [place] [address] Nurse, [address] [place] [address] 12/04/2023 1:00 PM EDT Office Visit Home Dialysis [address] [place], [place] [phone] [facility], Peritoneal Dialysis [address] [place] [address] 12/11/2023 8:00 AM EDT Treatment Home Dialysis [address] [place], [place] [phone] Nurse, Lance [address] [employer] [address] [place] [address] 12/11/2023 1:00 PM EDT Nurse Only Home Dialysis [address] [place], [place] [phone] Nurse, [address] [facility] [address] [place] [address] 12/26/2023 1:00 PM EDT Office Visit Home Dialysis [address] [place], [place] [address] [facility], Peritoneal Dialysis [address] [facility] [place] [address] 01/10/2024 8:00 AM EDT Treatment Home Dialysis [address] [place], [place] [phone] Nurse, Lance [address] [facility] [address] [place] [address] 01/10/2024 1:00 PM EDT Nurse Only Home Dialysis [address] [place], [place] [address] Nurse, [address] [employer] [address] [place] [address] 02/08/2024 1:00 PM EDT Office Visit Home Dialysis [address] [place], [place] [address] [facility], Peritoneal Dialysis [address] [place] [address] 02/10/2024 8:00 AM EDT Treatment Home Dialysis [address] [place] [address] Nurse, [address] [employer] [address] [place] [address] 02/12/2024 1:00 PM EDT Nurse Only Home Dialysis [address] [place], [place] [phone] Nurse, [address] [employer] [address] [place] [address] 03/05/2024 1:00 PM EDT Office Visit Home Dialysis [address] [place] [address] [facility], Peritoneal Dialysis [address] [facility] [address] 03/11/2024 8:00 AM EDT Treatment Home Dialysis [address] [place], [place] [address] Nurse, [address] [employer] [address] [place] [address] 03/11/2024 1:00 PM EDT Nurse Only Home Dialysis [address] [place] [address] Nurse, [address] [employer] [address] [place] [address] 03/29/2024 1:00 PM EDT Office Visit Home Dialysis [address] [place], [place] [address] [facility], Peritoneal Dialysis [address] [place] [address] 04/11/2024 8:00 AM EDT Treatment Home Dialysis [address] [place], [place] [address] Nurse, [employer] [address], [place] [address] 04/11/2024 1:00 PM EDT Nurse Only Home Dialysis [address] [place], [place] [phone] Nurse, Lance [employer] [address], [place] [address] 04/29/2024 1:00 PM EDT Office Visit Home Dialysis [address], [place] [address] [facility], Peritoneal Dialysis [address] [facility] [address] 05/12/2024 8:00 AM EDT Treatment Home Dialysis [address] [place], [place] [address] Nurse, Lance [employer] [address] [place] [address] 05/14/2024 1:00 PM EDT Nurse Only Home Dialysis [address] [place], [place] [address] Nurse, [employer] [place] [employer] [address] [place] [address] 06/07/2024 1:00 PM EDT Office Visit Home Dialysis [address] [place], [place] [address] [facility], Peritoneal Dialysis [address] [facility] [address] 06/11/2024 8:00 AM EDT Treatment Home Dialysis [address] [place] [address] Nurse, Lance Lopez [address], [place] [address] 06/11/2024 1:00 PM EDT Nurse Only Home Dialysis [address] [place], [place] [phone] Nurse, Lance Lopez [address], [place] [address] 06/25/2024 1:00 PM EDT Office Visit Home Dialysis [address], [place] [address] [facility], Peritoneal Dialysis [address] [place] [address] 07/12/2024 8:00 AM EDT Treatment Home Dialysis [address], [place] [phone] Nurse, Lance [employer] [address], [place] [address] 07/12/2024 1:00 PM EDT Nurse Only Home Dialysis [address] [place], [place] [address] Nurse, Lance Lopez [address], [place] [address] 07/22/2024 1:00 PM EST Office Visit Home Dialysis [address], [place] [address] [facility], Peritoneal Dialysis [address] [place] [address] 08/11/2024 8:00 AM EST Treatment Home Dialysis [address] [place], [place] [address] Nurse, Lance Lopez [address], [place] [address] 08/12/2024 1:00 PM EST Nurse Only Home [...] Yonny Saldivar MD LAB BLOOD ORDERAB LES [facility] Organization Address City/State/[facility] Co de Phone Number LABORATORY [facility] [address] [place] [address] documented in this encounter Visit Diagnoses Diagnosis [...] Advance Directives occurred with: Patient Care Teams Ammonia Worker Relationship Specialty Start Date End Date Tomer Garner MD [address] [place] [address] PCP - General 09/19/02 documented as of this encounter
--- OUTSIDE RECORDS SUMMARY | 2024-03-17 14:35 | External Medical Summary | Summary of Care ---
Author Name Unknown Organization [facility] Address [address] [place] [address] Phone [phone] Care Team Providers Care Property Investor Name Role Phone Tomer Garner MD Primary Care Provider [phone] Reason for Visit * Reason Comments Hemodialysis * Episode Based Medications (Routine) - Closed Specialty Diagnoses / Procedures Referred By Contac t Referred To Contact Diagnoses ESRD on peritoneal dialysis (HCC) 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 chronic kidney disease, not on chronic dialysis (HCC) Procedures NM EPOETIN SLOAN, NON-ESRD NM EPOETIN SLOAN, 100 UNITS ESRD Yonny Saldivar MD [address] [place] [address] [place] [address] Referral ID Status Reason Start Date Expiration Date Visits Re quested Visits Authorized [id number] Closed 08/22/2023 02/21/2024 999 0 Encounter Details [...] (Oral) 1981,04/11 Pneumococcal Conjugate Vacci ne, 20-valent ([id number]) 11/17/2022 Seasonal Influenza, PF, 6 M & [...] Home Dialysis [address], [place] [address] 10/12/2023 8:00 AM EST Treatment Home Dialysis [address], [place] [address] Nurse, [address] [facility] [address], [place] [address] 10/12/2023 1:00 PM EST Nurse Only Home Dialysis [address], [place] [address] Nurse, [address] [employer] [address] [place] [address] 11/03/2023 1:00 PM EST Office Visit Home Dialysis [address] [place] [address] [facility] [place] [address] [place] [address] 11/10/2023 8:00 AM EST Treatment Home Dialysis [address] [place], [place] [phone] Nurse, [address] [employer] [address] [place] [address] 11/10/2023 1:00 PM EST Nurse Only Home Dialysis [address], [place] [phone] Nurse, [address] [employer] [address] [place] [address] 12/04/2023 1:00 PM EDT Office Visit Home Dialysis [address], [place] [address] [facility] [address] [facility] [place] [address] 12/11/2023 8:00 AM EDT Treatment Home Dialysis [address], [place] [phone] Nurse, [address] [employer] [address] [place] [address] 12/11/2023 1:00 PM EDT Nurse Only Home Dialysis [address], [place] [address] Nurse, [address] [employer] [address] [place] [address] 12/26/2023 1:00 PM EDT Office Visit Home Dialysis [address] [place] [address] [facility] [place] [address] [place] [address] 01/10/2024 8:00 AM EDT Treatment Home Dialysis [address] [place] [address] Nurse, [address] [employer] [address] [place] [address] 01/10/2024 1:00 PM EDT Nurse Only Home Dialysis [address], [place] [address] Nurse, [address] [employer] [address] [place] [address] 02/08/2024 1:00 PM EDT Office Visit Home Dialysis [address] [place] [address] [facility] [place] [facility] [address] [facility] [place] [address] 02/10/2024 8:00 AM EDT Treatment Home Dialysis [address], [place] [address] Nurse[address] [employer] [address] [place] [address] 02/12/2024 1:00 PM EDT Nurse Only Home Dialysis [address] [place] [address] Nurse, [address] [employer] [address] [place] [address] 03/05/2024 1:00 PM EDT Office Visit Home Dialysis [address] [place] [address] [facility], Peritoneal Dialysis [address] [place] [address] 03/11/2024 8:00 AM EDT Treatment Home Dialysis [address], [place] [address] Nurse, Lance [employer] [address], [place] [address] 03/11/2024 1:00 PM EDT Nurse Only Home Dialysis [address], [place] [phone] Nurse, [address] [facility] [address], [place] [address] 03/29/2024 1:00 PM EDT Office Visit Home Dialysis [address], [place] [address] [facility] [place] [address] [place] [address] 04/11/2024 8:00 AM EDT Treatment Home Dialysis [address], [place] [phone] Nurse, Lance [employer] [address], [place] [address] 04/11/2024 1:00 PM EDT Nurse Only Home Dialysis [address], [place] [address] Nurse, [address] [employer] [address] [place] [address] 04/29/2024 1:00 PM EDT Office Visit Home Dialysis [address], [place] [address] [facility] [address] [place] [address] 05/12/2024 8:00 AM EDT Treatment Home Dialysis [address] [place] [address] Nurse, [address], [place] [address] 05/14/2024 1:00 PM EDT Nurse Only Home Dialysis [address], [place] [phone] Nurse, [address] [employer] [address], [place] [address] 06/07/2024 1:00 PM EDT Office Visit Home Dialysis [address], [place] [phone] [facility] [address] [place] [address] 06/11/2024 8:00 AM EDT Treatment Home Dialysis [address], [place] [phone] Nurse, [address] [employer] [address], [place] [address] 06/11/2024 1:00 PM EDT Nurse Only Home Dialysis [address], [place] [address] Nurse, [address], [place] [address] 06/25/2024 1:00 PM EDT Office Visit Home Dialysis [address], [place] [address] [facility] [address] [place] [address] 07/12/2024 8:00 AM EDT Treatment Home Dialysis [address], [place] [address] Nurse, [address] [employer] [address], [place] [address] 07/12/2024 1:00 PM EDT Nurse Only Home Dialysis [address] [place], [place] [phone] Nurse, [email or web address] [address], [place] [id number] 07/22/2024 1:00 PM EST Office Visit Home Dialysis [address], [place] [phone] [facility] [address] [facility], [place] [id number] 08/11/2024 8:00 AM EST Treatment Home Dialysis [address], [place] [phone] Nurse, [address] [employer] [address], [place] [address] 08/12/2024 1:00 PM EST Nurse Only Home Dialysis [address], [place] [id number] Nurse, [email or web address] [address], [place] [id number] 08/28/2024 1:00 PM EST Office Visit Home Dialysis [address], [place] [address] [facility] [address] [facility], [place] [id number] Health Maintenance Due Date Last Done Comments [...] 6:39 AM EST 4 mcg Epoetin Sloan [address] UNIT/ML inj 7,600 Units 7,600 Units, Intravenous, [...] Advance Directives occurred with: Patient Care Teams Property Investor Relationship Specialty Start Date End Date Tomer Garner MD [address] [place] [address] PCP - General 09/19/02 documented as of this encounter
--- OUTSIDE RECORDS SUMMARY | 2024-03-17 14:36 | External Medical Summary | Summary of Care ---
Author Name Unknown Organization [facility] Address [address] [place] [address] Phone [phone] Care Team Providers Care Piece Dyeing Machine Tender Name Role Phone Tomer Garner MD Primary [...] UNITS ESRD Yonny Saldivar MD [address] [place] [address] [address] [place] [address] Referral ID Status Reason Start Date Expiration Date Visits Re quested Visits Authorized [id number] Closed 08/22/2023 02/21/2024 999 0 Encounter Details Date Type Department Care Team (Late st Contact Info) Description 08/31/2023 5:30 AM EST Treatment Hemodialysis [facility] [...] as of this encounter (statuses as of 10/04/2023) Medications Medication Sig Dispensed Refills Start Date [...] as of this encounter (statuses as of 10/04/2023) Active Problems Problem Noted Date Diagnosed Date [...] as of this encounter (statuses as of 10/04/2023) Resolved Problems Problem Noted Date Diagnosed Date Resolved Date Dyslipidemia, goal to be determined 08/27/2009 11/21/2013 Overview: Per Lipid Taxonomy. PURE HYPERCHOLESTEROLEM 04/25/200208/11 Overview: Per Lipid Taxonomy. 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] Sign Reading Time Taken Comments Blood Pressure 123/75 08/31/2023 9:43 AM EST Pulse 75 08/31/2023 9:43 AM EST Temperature 36.9 C (98.4 F) 08/31/2023 9:42 AM ES T Respiratory Rate 18 08/31/2023 9:42 AM EST Oxygen Saturation - - [...] Addendum Note - Mary Mabry OSA - 09/01/2023 2:17 PM ESTAddended by: MARY MABRY on: 09/01/2023 02:17 PM Modules accepted: Orders documented in this encounter Plan of Treatment Upcoming Encounters Date Type Department Care Team (Late st Contact Info) Description 09/28/2023 Plan of Care Documentation Home Dialysis [address] [place] [address] Health Maintenance Due Date Last Done Comments [...] Priority Date/Time Associated Diagnosis Comments HGB STAT 09/05/2023 6:13 AM EST ESRD (end stage renal disease) (HCC) Anemia of chronic renal failure, stage 5 (HCC) documented in this encounter Results * (ABNORMAL) HGB (09/05/2023 6:13 AM EST) HGB 10.6(L) 14.0 - 16.8 g/dL 09/05/2023 7:47 AM EST LABORATORY [facility] Blood Blood sample taken from central line / Unknown Venipuncture / Unknown 09/05/2023 6:13 AM EST 09/05/2023 6:13 AM EST Yonny Saldivar MD LAB BLOOD ORDERAB LES LABORATORY [facility] [address] [place] [address] documented in this encounter Visit Diagnoses Diagnosis [...] mcg 4 mcg, Intravenous, ONCE, On Marylu 08/31/23 at 0645, For 1 dose Given 08/31/2023 6:11 AM EST 4 mcg Epoetin Sloan [address] UNIT/ML inj 7,600 Units 7,600 Units, Intravenous, ONCE, On Marylu 08/31/23 at 0645, For 1 dose Given 08/31/2023 6:11 AM EST 7,600 Units hEParin 1,000 unit/mL infusion for dialysis 500 Units/hr (0.5 mL/hr), Hemodialysis, CONTINUOUS, Starting on Marylu 08/31/23 at 0645, Until Marylu 08/31/23 at 1514, Maintenance: Stop 1 hour before dialysis end in AVF/AVG. Continue through dialysis in CVC. The total delivered dose is approximately 2,500 to 5,000 units, based on weight and treatment duration assumptions New Bag 08/31/2023 6:08 AM EST 500 Units/hr 0.5 mL/hr hEParin 1000 UNIT/ML inj 2,000 Units 2,000 Units, Intravenous, ONCE, On Marylu 08/31/23 at 0645, For 1 dose, Loading dose Given 08/31/2023 6:08 AM EST 2,000 Units sodium citrate 4% (Anticoagulant Sodium Citrate) inj 2.5 mL 2.5 mL, Dialysis catheter, ONCE, On Marylu 08/31/23 at 0645, For 1 dose, ARTERIAL For use only to lock dialysis catheter after dialysis Given 08/31/2023 6:11 AM EST 2.5 mL sodium citrate 4% (Anticoagulant Sodium Citrate) inj 2.5 mL 2.5 mL, Dialysis catheter, ONCE, On Marylu 08/31/23 at 0645, For 1 dose, VENOUS For use only to lock dialysis catheter after dialysis Given 08/31/2023 6:11 AM EST 2.5 mL documented in this [...] Advance Directives occurred with: Patient Care Teams Piece Dyeing Machine Tender Relationship Specialty Start Date End Date Tomer Garner MD [address] [facility] [place] [address] PCP - General 09/19/02 documented as of this encounter
--- OUTSIDE RECORDS SUMMARY | 2024-03-17 14:36 | External Medical Summary | Summary of Care ---
Author Name Unknown Organization [facility] Address [address] [place] [address] Phone [phone] Care Team Providers Care Inspector Floor Name Role Phone Tomer Garner MD Primary [...] UNITS ESRD Yonny Saldivar MD [address] [place] [address] [address] [place] [address] Referral ID Status Reason Start Date Expiration Date Visits Re quested Visits Authorized [id number] Closed 08/22/2023 02/21/2024 999 0 Encounter Details [...] (Oral) 1981,04/11 Pneumococcal Conjugate Vacci ne, 20-valent ([id number]) 11/17/2022 Pneumococcal Polysaccharide PPV23 (Pneumovax) 02/03/2004 Seasonal [...] 16.8 g/dL 09/05/2023 7:47 AM EST [facility] [place] Blood sample taken from central line / Unknown Venipuncture / Unknown 09/05/2023 6:13 AM EST 09/05/2023 6:13 AM EST Yonny Saldivar MD LAB BLOOD ORDERAB LES [facility] [address] [place] [address] documented in this encounter Visit Diagnoses Diagnosis [...] 6:11 AM EST 4 mcg Epoetin Sloan [address] UNIT/ML inj 7,600 Units 7,600 Units, Intravenous, [...] Advance Directives occurred with: Patient Care Teams Inspector Floor Relationship Specialty Start Date End Date Tomer Garner MD [address] [facility] [place] [address] PCP - General 09/19/02 documented as of this encounter
--- OUTSIDE RECORDS SUMMARY | 2024-03-17 14:36 | External Medical Summary | Summary of Care ---
Author Name Unknown Organization [facility] Address [address] [place] [address] Phone [phone] Care Team Providers Care Take Up Operator Name Role Phone Tomer Garner MD Primary Care Provider [phone] Reason for Visit * Reason Comments Hemodialysis * Episode Based Medications (Routine) - Closed Specialty Diagnoses / Procedures Referred By Contac t Referred To Contact Diagnoses ESRD on peritoneal dialysis (HCC) 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 chronic kidney disease, not on chronic dialysis (HCC) Procedures MD EPOETIN SLOAN, NON-ESRD MD EPOETIN SLOAN, 100 UNITS ESRD Yonny Saldivar MD [address] [place] [address] [address] [place] [address] Referral ID Status Reason Start Date Expiration Date Visits Re quested Visits Authorized [id number] Closed 08/22/2023 02/21/2024 999 0 Encounter Details [...] (Oral) 1981,04/11 Pneumococcal Conjugate Vacci ne, 20-valent ([id number]) 11/17/2022 Pneumococcal Polysaccharide PPV23 (Pneumovax) 02/03/2004 Seasonal [...] Dr. Contreras. Osito Farfan MD Fellow Nephrology [facility] documented in this encounter Plan of Treatment Upcoming Encounters Date Type Department Care Team (Late st Contact Info) Description 09/28/2023 Plan of Care Documentation Home Dialysis [address] [place] [address] 10/12/2023 8:00 AM EST Treatment Home Dialysis [address] [place] [address] Nurse, [address] [employer] [address] [place] [address] 10/12/2023 1:00 PM EST Nurse Only Home Dialysis [address], [place] [address] Nurse, [address] [employer] [address] [place] [address] 11/03/2023 1:00 PM EST Office Visit Home Dialysis [address] [place] [address] [facility] [place] [address] [place] [address] 11/10/2023 8:00 AM EST Treatment Home Dialysis [address] [place] [address] Nurse, [address] [employer] [address] [place] [address] 11/10/2023 1:00 PM EST Nurse Only Home Dialysis [place] [address] Nurse, [address] [employer] [address] [place] [address] 12/04/2023 1:00 PM EDT Office Visit Home Dialysis [address] [place] [address] [facility] [place]itoneal Dialysis [address] [place] [address] 12/11/2023 8:00 AM EDT Treatment Home Dialysis [address] [place] [address] Nurse, [address] [employer] [address] [place] [address] 12/11/2023 1:00 PM EDT Nurse Only Home Dialysis [address] [place] [address] Nurse, [address] [employer] [address], [place] [address] 12/26/2023 1:00 PM EDT Office Visit Home Dialysis [address], [place] [address] [facility], Peritoneal Dialysis [address] [place] [address] 01/10/2024 8:00 AM EDT Treatment Home Dialysis [address], [place] [phone] Nurse, [address], [place] [address] 01/10/2024 1:00 PM EDT Nurse Only Home Dialysis [address], [place] [phone] Nurse, [address] [employer] [address] [place] [address] 02/08/2024 1:00 PM EDT Office Visit Home Dialysis [address], [place] [address] [facility] Peritoneal Dialysis [address] [place] [facility] [place] [address] 02/10/2024 8:00 AM EDT Treatment Home Dialysis [address], [place] [address] Nurse, [address] [employer] [address] [place] [address] 02/12/2024 1:00 PM EDT Nurse Only Home Dialysis [address], [place] [address] Nurse, [address] [employer] [address] [place], [place] [address] 03/05/2024 1:00 PM EDT Office Visit Home Dialysis [address] [place] [address] [facility], Peritoneal Dialysis [address] [place] [address] 03/11/2024 8:00 AM EDT Treatment Home Dialysis [address], [place] [phone] Nurse, [employer] [facility], [place] [address] 03/11/2024 1:00 PM EDT Nurse Only Home Dialysis [address], [place] [phone] Nurse, [address], [place] [address] 03/29/2024 1:00 PM EDT Office Visit Home Dialysis [address], [place] [address] [facility] Peritoneal Dialysis [address] [place] [facility] [place] [address] 04/11/2024 8:00 AM EDT Treatment Home Dialysis [address], [place] [address] Nurse, Lance [employer] [address], [place] [address] 04/11/2024 1:00 PM EDT Nurse Only Home Dialysis [address], [place] [address] Nurse, [employer] [address], [place] [address] 04/29/2024 1:00 PM EDT Office Visit Home Dialysis [address], [place] [address] [facility], Peritoneal Dialysis [address] [facility] [place], [place] [address] 05/12/2024 8:00 AM EDT Treatment Home Dialysis [address], [place] [phone] Nurse, [address], [place] [address] 05/14/2024 1:00 PM EDT Nurse Only Home Dialysis [address] [phone] Nurse, [address] [employer] [address], [place] 06/07/2024 1:00 PM EDT Office Visit Home Dialysis [address], [place] [phone] [facility] Peritoneal Dialysis [address] [place] [address] 06/11/2024 8:00 AM EDT Treatment Home Dialysis [address], [place] [phone] Nurse, [address], [place] [address] 06/11/2024 1:00 PM EDT Nurse Only Home Dialysis [address], [place] [address] Nurse, Lance [address], [place] [address] 06/25/2024 1:00 PM EDT Office Visit Home Dialysis [address], [place] [address] [facility] Peritoneal Dialysis [address] [place] [address] 07/12/2024 8:00 AM EDT Treatment Home Dialysis [address], [place] [phone] Nurse, [address], [place] [address] 07/12/2024 1:00 PM EDT Nurse Only Home Dialysis [address], [place] [phone] Nurse, [employer] [address] [id number] 07/22/2024 1:00 PM EST Office Visit Home Dialysis [address] [place] [address] [facility] Dialysis [address] [place], [place] [address] 08/11/2024 8:00 AM EST Treatment Home Dialysis [address], [place] [phone] Nurse, [employer] [facility] [place] [address] 08/12/2024 1:00 PM EST Nurse Only Home Dialysis [address], [place] [address] Nurse, [employer] [address], [place] [address] 08/28/2024 1:00 PM EST Office Visit Home Dialysis [address], [place] [address] [facility] Peritoneal Dialysis [address] [place], [place] [address] Health Maintenance Due Date Last Done Comments [...] 8:46 AM EST 4 mcg Epoetin Sloan [address] UNIT/ML inj 7,600 Units 7,600 Units, Intravenous, [...] Advance Directives occurred with: Patient Care Teams Take Up Operator Relationship Specialty Start Date End Date Tomer Garner MD [address] [place] [address] PCP - General 09/19/02 documented as of this encounter
--- OUTSIDE RECORDS SUMMARY | 2024-03-17 14:36 | External Medical Summary | Summary of Care ---
Author Name Unknown Organization [facility] Address [address] [place] [address] Phone [phone] Care Team Providers Care Report Writer Name Role Phone Tomer Garner MD Primary [...] UNITS ESRD Yonny Saldivar MD [address] [place] [address] [place] [address] Referral ID Status Reason Start Date Expiration Date Visits Re quested Visits Authorized [id number] Closed 08/22/2023 02/21/2024 999 0 Encounter Details [...] 11/01/2022 Pneumonia due to infectious organism 10/31/2022 LUICES (acute kidney injury) 10/31/2022 Kidney replaced by [...] (Oral) 1981,04/11 Pneumococcal Conjugate Vacci ne, 20-valent ([id number]) 11/17/2022 Pneumococcal Polysaccharide PPV23 (Pneumovax) 02/03/2004 Seasonal [...] 16.8 g/dL 09/05/2023 7:47 AM EST LABORATORY [facility] [place] Blood Blood sample taken from central line / Unknown Venipuncture / Unknown 09/05/2023 6:13 AM EST 09/05/2023 6:13 AM EST Yonny Saldivar MD LAB BLOOD ORDERAB LES LAB[facility]ATORY [facility] [place] [address] [place] [address] documented in this encounter Visit Diagnoses Diagnosis [...] 6:11 AM EST 4 mcg Epoetin Sloan [address] UNIT/ML inj 7,600 Units 7,600 Units, Intravenous, [...] Advance Directives occurred with: Patient Care Teams Report Writer Relationship Specialty Start Date End Date Tomer Garner MD [address] [place] [address] PCP - General 09/19/02 documented as of this encounter
--- OUTSIDE RECORDS SUMMARY | 2024-03-17 14:36 | External Medical Summary | Summary of Care ---
Author Name Unknown Organization [facility] Address [address] [place] [address] Phone [phone] Care Team Providers Care Cable Armorer Operator Name Role Phone Tomer Garner MD [...] UNITS ESRD Yonny Saldivar MD [address] [place] [address] [place] [address] Referral ID Status Reason Start Date Expiration Date Visits Re quested Visits Authorized [id number] Closed 08/22/2023 02/21/2024 999 0 Encounter Details [...] (Oral) 1981,04/11 Pneumococcal Conjugate Vacci ne, 20-valent ([id number]) 11/17/2022 Seasonal Influenza, PF, 6 M & [...] [address] [id number] 10/12/2023 8:00 AM EST Treatment Home Dialysis [facility] [address] [place] [address] [place] [address] [id number] 10/12/2023 1:00 PM EST Nurse Only Home Dialysis [facility] [id number] [place] [address] 11/03/2023 1:00 PM EST Office Visit Home Dialysis [facility] [address] [id number] [facility], Peritoneal Dialysis [address] [facility] [place] [address] 11/10/2023 8:00 AM EST Treatment Home Dialysis [facility] [address] [id number] Nurse, Lance [address] [facility] [address] [place], [place] [address] 11/10/2023 1:00 PM EST Nurse Only Home Dialysis [address] [place], [place] [address] Nurse, Lance [address] [facility] [place] [address] 12/04/2023 1:00 PM EDT Office Visit Home Dialysis [address] [place], [place] [phone] [facility], Peritoneal Dialysis [address] [place] [address] 12/11/2023 8:00 AM EDT Treatment Home Dialysis [facility] [address] [place], [place] [phone] Nurse, Lance [address] [facility] [address] [place] [address] 12/11/2023 1:00 PM EDT Nurse Only Home Dialysis [facility] [address] [place], [place] [phone] Nurse, Lance [address] [facility] [address] [place] [address] 12/26/2023 1:00 PM EDT Office Visit Home Dialysis [facility] [address] [place], [place] [address] [facility], Peritoneal Dialysis [address] [facility] [address] 01/10/2024 8:00 AM EDT Treatment Home Dialysis Clau [address] [place], [place] [phone] Nurse, Lance [address] [facility] [address] [place] [address] 01/10/2024 1:00 PM EDT Nurse Only Home Dialysis [address] [place], [place] [address] Nurse, [address] [employer] [address] [place] [address] 02/08/2024 1:00 PM EDT Office Visit Home Dialysis [facility] [address] [place], [place] [address] [facility], Peritoneal Dialysis [address] [place] [address] 02/10/2024 8:00 AM EDT Treatment Home Dialysis [facility] [place] [address] Nurse, [address] [employer] [address] [place] [address] 02/12/2024 1:00 PM EDT Nurse Only Home Dialysis [facility] [address] [place], [place] [phone] Nurse, Lance [address] [employer] [address] [place] [address] 03/05/2024 1:00 PM EDT Office Visit Home Dialysis [address] [place] [address] [facility], Peritoneal Dialysis [address] [place] [facility] [place] [address] 03/11/2024 8:00 AM EDT Treatment Home Dialysis [facility] [address] [place], [place] [address] Nurse, Lance [address] [employer] [address] [place] [address] 03/11/2024 1:00 PM EDT Nurse Only Home Dialysis [address] [place] [address] Nurse, Lance [address] [employer] [address] [place] [address] 03/29/2024 1:00 PM EDT Office Visit Home Dialysis [facility] [address] [place], [place] [address] [facility], Peritoneal Dialysis [address] [place] [address] 04/11/2024 8:00 AM EDT Treatment Home Dialysis [facility] [address] [place], [place] [address] Nurse, [employer] [address] [place], [place] [address] 04/11/2024 1:00 PM EDT Nurse Only Home Dialysis [facility] [address] [place], [place] [phone] Nurse, Lance [employer] [address] [place], [place] [address] 04/29/2024 1:00 PM EDT Office Visit Home Dialysis [facility] [address] [place], [place] [address] [facility], Peritoneal Dialysis [address] [facility] [place] [address] 05/12/2024 8:00 AM EDT Treatment Home Dialysis [facility] [address] [place], [place] [address] Nurse, Lance [employer] [address] [place] [address] 05/14/2024 1:00 PM EDT Nurse Only Home Dialysis [facility] [address] [place], [place] [address] Nurse, [employer] [address] [place] [address] 06/07/2024 1:00 PM EDT Office Visit Home Dialysis [facility] [address] [place], [place] [address] [facility], Peritoneal Dialysis [address] [place] [facility] [place] [address] 06/11/2024 8:00 AM EDT Treatment Home Dialysis [facility] [address] [place] [address] Nurse, Lance Lopez [facility] [address] [place], [place] [address] 06/11/2024 1:00 PM EDT Nurse Only Home Dialysis [facility] [address] [place], [place] [phone] Nurse, Lance Lopez [facility] [address] [place], [place] [address] 06/25/2024 1:00 PM EDT Office Visit Home Dialysis [facility] [address] [place], [place] [address] [facility], Peritoneal Dialysis [address] [place] [address] 07/12/2024 8:00 AM EDT Treatment Home Dialysis [facility] [address] [place], [place] [phone] Nurse, Lance [employer] [address] [place], [place] [address] 07/12/2024 1:00 PM EDT Nurse Only Home Dialysis [facility] [address] [place], [place] [address] Nurse, Lance Lopez [facility] [address] [place], [place] [address] 07/22/2024 1:00 PM EST Office Visit Home Dialysis [facility] [address] [place], [place] [address] [facility], Peritoneal Dialysis [address] [place] [address] 08/11/2024 8:00 AM EST Treatment Home Dialysis [facility] [address] [place], [place] [address] Nurse, Lance Lopez [facility] [address] [place], [place] [address] 08/12/2024 1:00 PM EST Nurse Only Home [...] 7:43 AM EST 4 mcg Epoetin Sloan [address] UNIT/ML inj 7,600 Units 7,600 Units, Intravenous, [...] Advance Directives occurred with: Patient Care Teams Cable Armorer Operator Relationship Specialty Start Date End Date Tomer Garner MD [address] [place] [address] PCP - General 09/19/02 documented as of this encounter
--- OUTSIDE RECORDS SUMMARY | 2024-03-17 14:36 | External Medical Summary | Summary of Care ---
Author Name Unknown Organization [facility] Address [address] [place] [address] Phone [phone] Care Team Providers Care Senior Applications Engineer Name Role Phone Tomer Garner MD Primary Care Provider Reason for Visit * Reason Comments Hemodialysis * Episode Based Medications (Routine) - Closed Specialty Diagnoses / Procedures Referred By Contac t Referred To Contact Diagnoses ESRD on peritoneal dialysis (HCC) 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 chronic kidney disease, not on chronic dialysis (HCC) Procedures ID EPOETIN SLOAN, NON-ESRD ID EPOETIN SLOAN, 100 UNITS ESRD Yonny Saldivar MD [address] [place] [address] [address] [place] [address] Referral ID Status Reason Start Date Expiration Date Visits Re quested Visits Authorized [id number] Closed 08/22/2023 02/21/2024 999 0 Encounter Details [...] (Oral) 1981,04/11 Pneumococcal Conjugate Vacci ne, 20-valent ([id number]) 11/17/2022 Seasonal Influenza, PF, 6 M & [...] [address] [address] [id number] 10/12/2023 8:00 AM EST Treatment Home Dialysis [facility] [address] [place] [address] [place] [address] [id number] 10/12/2023 1:00 PM EST Nurse Only Home Dialysis [facility] [id number] [place] [address] 11/03/2023 1:00 PM EST Office Visit Home Dialysis [facility] [address] [id number] Mdc, Peritoneal Dialysis [address] [facility] [place] [address] 11/10/2023 8:00 AM EST Treatment Home Dialysis [facility] [address] [id number] Nurse, Lance [address] [employer] [address] [place], [place] [address] 11/10/2023 1:00 PM EST Nurse Only Home Dialysis [facility] [address] [place], [place] [address] Nurse, [address] [address] [place] [address] 12/04/2023 1:00 PM EDT Office Visit Home Dialysis [facility] [address] [place], [place] [phone] [facility], Peritoneal Dialysis [address] [place] [address] 12/11/2023 8:00 AM EDT Treatment Home Dialysis Clau [address] [place], [place] [phone] Nurse, Lance [address] [employer] [address] [place] [address] 12/11/2023 1:00 PM EDT Nurse Only Home Dialysis [facility]au [address] [place], [place] [phone] Nurse, Lance [address] [employer] [address] [place] [address] 12/26/2023 1:00 PM EDT Office Visit Home Dialysis [facility] [address] [place], [place] [address] [facility], Peritoneal Dialysis [address] [facility] [place] [address] 01/10/2024 8:00 AM EDT Treatment Home Dialysis [facility] [address] [place], [place] [phone] Nurse, Lance [address] [employer] [address] [place] [address] 01/10/2024 1:00 PM EDT Nurse Only Home Dialysis [facility] [address] [place], [place] [address] Nurse, [address] [employer] [address] [place] [address] 02/08/2024 1:00 PM EDT Office Visit Home Dialysis [facility] [address] [place], [place] [address] [facility], Peritoneal Dialysis [address] [place] [address] 02/10/2024 8:00 AM EDT Treatment Home Dialysis [facility]au [address] [place] [address] Nurse, [address] [employer] [address] [place] [address] 02/12/2024 1:00 PM EDT Nurse Only Home Dialysis [facility] [address] [place], [place] [phone] Nurse, Lance [address] [employer] [address] [place] [address] 03/05/2024 1:00 PM EDT Office Visit Home Dialysis [facility] [address] [place] [address] [facility], Peritoneal Dialysis [address] [facility] [place] [address] 03/11/2024 8:00 AM EDT Treatment Home Dialysis [facility]au [address] [place], [place] [address] Nurse, [address] [employer] [address] [place] [address] 03/11/2024 1:00 PM EDT Nurse Only Home Dialysis [address] [place] [address] Nurse, [address] [employer] [address] [place] [address] 03/29/2024 1:00 PM EDT Office Visit Home Dialysis [facility] [address] [place], [place] [address] [facility], Peritoneal Dialysis [address] [place] [address] 04/11/2024 8:00 AM EDT Treatment Home Dialysis [facility] [address] [place], [place] [address] Nurse, [employer] [place] [address] [place], [place] [address] 04/11/2024 1:00 PM EDT Nurse Only Home Dialysis [facility] [address] [place], [place] [phone] Nurse, Lance [employer] [address]la [address] [place], [place] [address] 04/29/2024 1:00 PM EDT Office Visit Home Dialysis [facility] [address] [place], [place] [address] [facility], Peritoneal Dialysis [address] [facility] [place] [address] 05/12/2024 8:00 AM EDT Treatment Home Dialysis [facility] [address] [place], [place] [address] Nurse, Lance [employer] [address] [place] [address] 05/14/2024 1:00 PM EDT Nurse Only Home Dialysis [facility] [place], [place] [address] Nurse, [employer] [address] [place] [address] 06/07/2024 1:00 PM EDT Office Visit Home Dialysis [facility] [address] [place], [place] [address] [facility], Peritoneal Dialysis [address] [facility] [place] [address] 06/11/2024 8:00 AM EDT Treatment Home Dialysis [facility] [address] [place] [address] Nurse, Lance Lopez [facility] [address] [place], [place] [address] 06/11/2024 1:00 PM EDT Nurse Only Home Dialysis [facility] [address] [place], [place] [phone] Nurse, Lance Lopez [facility] [address] [place], [place] [address] 06/25/2024 1:00 PM EDT Office Visit Home Dialysis [facility] [place], [place] [address] [facility], Peritoneal Dialysis [address] [place] [address] 07/12/2024 8:00 AM EDT Treatment Home Dialysis [facility]au [address] [place], [place] [phone] Nurse, Lance [employer] [address] [place], [place] [address] 07/12/2024 1:00 PM EDT Nurse Only Home Dialysis [address] [place], [place] [address] Nurse, Lance Lopez [address] [place], [place] [address] 07/22/2024 1:00 PM EST Office Visit Home Dialysis [address] [place], [place] [address] [facility], Peritoneal Dialysis [address] [place] [address] 08/11/2024 8:00 AM EST Treatment Home Dialysis [facility] [address] [place], [place] [address] Nurse, Lance Lopez [address] [place], [place] [address] 08/12/2024 1:00 PM EST Nurse Only Home [...] 7:43 AM EST 4 mcg Epoetin Sloan [address] UNIT/ML inj 7,600 Units 7,600 Units, Intravenous, [...] Directives occurred with: Patient Care Teams Senior Applications Engineer Relationship Specialty Start Date End Date Tomer Garner MD [address] [place] [address] PCP - General 09/19/02 documented as of this encounter
--- OUTSIDE RECORDS SUMMARY | 2024-03-17 14:36 | External Medical Summary | Summary of Care ---
Author Name Unknown Organization [facility] Address [address] [place] [address] Phone [phone] Care Team Providers Care Shredder Tender Name Role Phone Tomer Garner MD Primary Care Provider [phone] Reason for Visit * Reason Comments Hemodialysis * Episode Based Medications (Routine) - Closed Specialty Diagnoses / Procedures Referred By Contac t Referred To Contact Diagnoses ESRD on peritoneal dialysis (HCC) 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 chronic kidney disease, not on chronic dialysis (HCC) Procedures OR EPOETIN SLOAN, NON-ESRD OR EPOETIN SLOAN, 100 UNITS ESRD Yonny Saldivar MD [address] [place] [address] [address] [place] [address] Referral ID Status Reason Start Date Expiration Date Visits Re quested Visits Authorized [id number] Closed 08/22/2023 02/21/2024 999 0 Encounter Details [...] (Oral) 1981,04/11 Pneumococcal Conjugate Vacci ne, 20-valent ([id number]) 11/17/2022 Pneumococcal Polysaccharide PPV23 (Pneumovax) 02/03/2004 Seasonal [...] Dr. Contreras. Osito Farfan MD Fellow Nephrology [facility] documented in this encounter Plan of Treatment Upcoming Encounters Date Type Department Care Team (Late st Contact Info) Description 09/28/2023 Plan of Care Documentation Home Dialysis [address] [place] [address] 10/12/2023 8:00 AM EST Treatment Home Dialysis [address] [place] [address] Nurse, [address] [employer] [address] [place] [address] 10/12/2023 1:00 PM EST Nurse Only Home Dialysis [address] [place], [place] [address] Nurse, [address] [employer] [address] [place] [address] 11/03/2023 1:00 PM EST Office Visit Home Dialysis [address] [place] [address] [facility], Peritoneal Dialysis [address] [place] [address] 11/10/2023 8:00 AM EST Treatment Home Dialysis [address] [place] [address] Nurse, [address] [employer] [address] [place] [address] 11/10/2023 1:00 PM EST Nurse Only Home Dialysis [place] [address] Nurse, [address] [employer] [address] [place] [address] 12/04/2023 1:00 PM EDT Office Visit Home Dialysis [facility] [place] [address] [facility], Peritoneal Dialysis [address] [place] [address] 12/11/2023 8:00 AM EDT Treatment Home Dialysis [facility] [place] [address] Nurse, [address] [employer] [address] [place] [address] 12/11/2023 1:00 PM EDT Nurse Only Home Dialysis [address] [place] [address] Nurse, [address] [employer] [address] [place], [place] [address] 12/26/2023 1:00 PM EDT Office Visit Home Dialysis [address] [place], [place] [address] [facility], Peritoneal Dialysis [address] [place] [address] 01/10/2024 8:00 AM EDT Treatment Home Dialysis [facility] [place], [place] [phone] Nurse, Lance [address] [place], [place] [address] 01/10/2024 1:00 PM EDT Nurse Only Home Dialysis [address] [place], [place] [phone] Nurse, Lance [address] [employer] [address] [place] [address] 02/08/2024 1:00 PM EDT Office Visit Home Dialysis [facility] [place], [place] [address] [facility], Peritoneal Dialysis [address] [facility] [place] [address] 02/10/2024 8:00 AM EDT Treatment Home Dialysis [facility] [place], [place] [address] Nurse, [address] [employer] [address] [place] [address] 02/12/2024 1:00 PM EDT Nurse Only Home Dialysis [address] [place], [place] [address] Nurse, Lance [address] [employer] [address] [place], [place] [address] 03/05/2024 1:00 PM EDT Office Visit Home Dialysis [address] [place] [address] [facility], Peritoneal Dialysis [address] [place] [address] 03/11/2024 8:00 AM EDT Treatment Home Dialysis [address] [place], [place] [phone] Nurse, Lance [employer] [address] [place], [place] [address] 03/11/2024 1:00 PM EDT Nurse Only Home Dialysis [facility] [place], [place] [phone] Nurse, Lance [address] [place], [place] [address] 03/29/2024 1:00 PM EDT Office Visit Home Dialysis [facility] [place], [place] [address] [facility], Peritoneal Dialysis [address] [facility] [place] [address] 04/11/2024 8:00 AM EDT Treatment Home Dialysis [address] [place], [place] [address] Nurse, Lance [employer] [address] [place], [place] [address] 04/11/2024 1:00 PM EDT Nurse Only Home Dialysis [address] [place], [place] [address] Nurse, Lance [employer] [address] [place], [place] [address] 04/29/2024 1:00 PM EDT Office Visit Home Dialysis [address] [place], [place] [address] [facility], Peritoneal Dialysis [address] [facility] [place], [place] [address] 05/12/2024 8:00 AM EDT Treatment Home Dialysis [facility] [place], [place] [phone] Nurse, [address] [place], [place] [address] 05/14/2024 1:00 PM EDT Nurse Only Home Dialysis [facility] [phone] Nurse, [address] [employer] [address] [place], [place] 06/07/2024 1:00 PM EDT Office Visit Home Dialysis [facility] [place], [place] [phone] [facility], Peritoneal Dialysis [address] [place] [address] 06/11/2024 8:00 AM EDT Treatment Home Dialysis [facility] [place], [place] [phone] Nurse, [address] [place], [place] [address] 06/11/2024 1:00 PM EDT Nurse Only Home Dialysis [facility] [place], [place] [address] Nurse, Lance Lopez [address] [place], [place] [address] 06/25/2024 1:00 PM EDT Office Visit Home Dialysis [facility] [place], [place] [address] [facility], Peritoneal Dialysis [address] [place] [address] 07/12/2024 8:00 AM EDT Treatment Home Dialysis [facility] [place], [place] [phone] Nurse, Lance [address] [place], [place] [address] 07/12/2024 1:00 PM EDT Nurse Only Home Dialysis [facility] [place], [place] [phone] Nurse, Lance [employer] [address] [id number] 07/22/2024 1:00 PM EST Office Visit Home Dialysis [address] [place] [address] [facility], Peritoneal Dialysis [address] [place], [place] [id number] 08/11/2024 8:00 AM EST Treatment Home Dialysis [facility] [place], [place] [phone] Nurse, [employer] [facility] [place] [address] 08/12/2024 1:00 PM EST Nurse Only Home Dialysis [address] [place], [place] [address] Nurse, [employer] [address] [place], [place] [address] 08/28/2024 1:00 PM EST Office Visit Home Dialysis [address] [place], [place] [address] [facility], Peritoneal Dialysis [address] [place], [place] [address] Health Maintenance Due Date Last Done Comments [...] 8:46 AM EST 4 mcg Epoetin Sloan [address] UNIT/ML inj 7,600 Units 7,600 Units, Intravenous, [...] Advance Directives occurred with: Patient Care Teams Shredder Tender Relationship Specialty Start Date End Date Tomer Garner MD [address] [place] [address] PCP - General 09/19/02 documented as of this encounter
--- OUTSIDE RECORDS SUMMARY | 2024-03-17 14:36 | External Medical Summary | Summary of Care ---
Author Name Unknown Organization [facility] Address [address] [place] [address] Phone [phone] Care Team Providers Care Taxation Accountant Name Role Phone Tomer Garner MD Primary Care Provider Reason for Visit * Reason Comments Hemodialysis * Episode Based Medications (Routine) - Closed Specialty Diagnoses / Procedures Referred By Contac t Referred To Contact Diagnoses ESRD on peritoneal dialysis (HCC) 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 chronic kidney disease, not on chronic dialysis (HCC) Procedures OK EPOETIN SLOAN, NON-ESRD OK EPOETIN SLOAN, 100 UNITS ESRD Yonny Saldivar MD [address] [place] [address] [address] [place] [address] Referral ID Status Reason Start Date Expiration Date Visits Re quested Visits Authorized [id number] Closed 08/22/2023 02/21/2024 999 0 Encounter Details [...] (Oral) 1981,04/11 Pneumococcal Conjugate Vacci ne, 20-valent ([id number]) 11/17/2022 Seasonal Influenza, PF, 6 M & [...] [address] [id number] 10/12/2023 8:00 AM EST Treatment Home Dialysis [facility] [address] [place] [address] [id number] 10/12/2023 1:00 PM EST Nurse Only Home Dialysis [facility] [id number] [place] [address] 11/03/2023 1:00 PM EST Office Visit Home Dialysis [facility] [address] [id number] [facility], Peritoneal Dialysis [address] [place] [address] 11/10/2023 8:00 AM EST Treatment Home Dialysis [facility] [address] [id number] Nurse, [address] [facility] [address] [place], [place] [address] 11/10/2023 1:00 PM EST Nurse Only Home Dialysis [address] [place], [place] [address] Nurse, [address] [place] [address] 12/04/2023 1:00 PM EDT Office Visit Home Dialysis [facility] [place], [place] [phone] [facility] [place] Dialysis [address] [place] [address] 12/11/2023 8:00 AM EDT Treatment Home Dialysis [facility] [address] [place], [place] [phone] Nurse, [address] [facility] [address] [place] [address] 12/11/2023 1:00 PM EDT Nurse Only Home Dialysis [facility] [address] [place], [place] [phone] Nurse, [address] [facility] [place] [address] 12/26/2023 1:00 PM EDT Office Visit Home Dialysis [facility] [place], [place] [address] [facility] [place] Peritoneal Dialysis [address] [place] [address] 01/10/2024 8:00 AM EDT Treatment Home Dialysis [facility] [address] [place], [place] [phone] Nurse, Lance [address] [employer] [address] [place] [address] 01/10/2024 1:00 PM EDT Nurse Only Home Dialysis [address] [place], [place] [address] Nurse, [address] [facility] [place] [address] 02/08/2024 1:00 PM EDT Office Visit Home Dialysis [facility] [address] [place], [place] [address] [facility] [place], Peritoneal Dialysis [address] [place] [address] 02/10/2024 8:00 AM EDT Treatment Home Dialysis [address] [place] [address] Nurse, [address] [facility] [address] [place] [address] 02/12/2024 1:00 PM EDT Nurse Only Home Dialysis [facility] [address] [place], [place] [phone] Nurse, [address] [facility] [address] [place] [address] 03/05/2024 1:00 PM EDT Office Visit Home Dialysis [address] [place] [address] [facility] [place] Peritoneal Dialysis [address] [place] [facility] [place] [place] [address] 03/11/2024 8:00 AM EDT Treatment Home Dialysis [address] [place], [place] [address] Nurse, [address] [facility] [address] [place] [address] 03/11/2024 1:00 PM EDT Nurse Only Home Dialysis [address] [place] [address] Nurse, [address] [facility] [address] [place] [address] 03/29/2024 1:00 PM EDT Office Visit Home Dialysis [facility] [address] [place], [place] [address] [facility], Peritoneal Dialysis [address] [place] [address] 04/11/2024 8:00 AM EDT Treatment Home Dialysis [facility] [address] [place], [place] [address] Nurse, [employer] [address] [place], [place] [address] 04/11/2024 1:00 PM EDT Nurse Only Home Dialysis [facility] [address] [place], [place] [phone] Nurse, [place] Meddle [address] [place], [place] [address] 04/29/2024 1:00 PM EDT Office Visit Home Dialysis [facility] [address] [place], [place] [address] [facility] Peritoneal Dialysis [address] [place] [facility] [place] [place] [address] 05/12/2024 8:00 AM EDT Treatment Home Dialysis [facility] [address] [place], [place] [address] Nurse, [place] Meddle [address] [place] [address] 05/14/2024 1:00 PM EDT Nurse Only Home Dialysis [address] [place], [place] [address] Nurse, [employer] [address] [place] [address] 06/07/2024 1:00 PM EDT Office Visit Home Dialysis [facility] [address] [place], [place] [address] [facility] [place] Peritoneal Dialysis [address] [place] [facility] [place] [place] [address] 06/11/2024 8:00 AM EDT Treatment Home Dialysis [facility] [place] [address] Nurse, [place] Lopez [address] [place], [place] [address] 06/11/2024 1:00 PM EDT Nurse Only Home Dialysis [address] [place], [place] [phone] Nurse, [place] Lopez [address] [place], [place] [address] 06/25/2024 1:00 PM EDT Office Visit Home Dialysis [address] [place], [place] [address] [facility] [place] Peritoneal Dialysis [address] [place] [address] 07/12/2024 8:00 AM EDT Treatment Home Dialysis [facility] [address] [place], [place] [phone] Nurse, [place] Meddle [address] [place], [place] [address] 07/12/2024 1:00 PM EDT Nurse Only Home Dialysis [facility] [place], [place] [address] Nurse, [place] Lopez [address] [place], [place] [address] 07/22/2024 1:00 PM EST Office Visit Home Dialysis [facility] [address] [place], [place] [address] [facility] [place] Peritoneal Dialysis [address] [place] [address] 08/11/2024 8:00 AM EST Treatment Home Dialysis [address] [place], [place] [address] Nurse, [place] Lopez [address] [place], [place] [address] 08/12/2024 1:00 PM EST Nurse Only Home [...] 7:43 AM EST 4 mcg Epoetin Sloan [address] UNIT/ML inj 7,600 Units 7,600 Units, Intravenous, [...] Advance Directives occurred with: Patient Care Teams Taxation Accountant Relationship Specialty Start Date End Date Tomer Garner MD [address] [place] [address] PCP - General 09/19/02 documented as of this encounter
--- OUTSIDE RECORDS SUMMARY | 2024-03-17 14:36 | External Medical Summary | Summary of Care ---
Author Name Unknown Organization [facility] Address [address] [place] [address] Phone [phone] Care Team Providers Care Power Press Supervisor Name Role Phone Tomer Garner MD Primary Care Provider Reason for Visit * Precert (Within 10 days (routine)) - Pending Review Specialty Diagnoses / Procedures Referred By Contac t Referred To Contact Radiology Diagnoses ESRD on peritoneal dialysis (HCC) Procedures IR VENOUS ACCESS NON-MEDIPORT Akosua Loepz MD [address] [place] [address] Referral ID Status Reason Start Date Expiration Date V isits Requested Visits Authorized [id number] Pending Review 10/05/2023 999 999 Encounter Details Date Type Department Care Team (Latest Contact Info) Description 10/02/2023 12:05 PM EST - 10/02/2023 2:11 PM EST Hospital Encounter Radiology Waiting Room [facility] 1st Floor [address], [place] [id number] Josh iHnes MD [address] [place] [address] Arrived Discharge Disposition: Home - Self Care Allergies No known active allergiesdocumented as of this encounter (statuses as of 10/03/2023) Medications Medication Sig Dispensed Refills Start Date [...] as of this encounter (statuses as of 10/03/2023) Active Problems Problem Noted Date Diagnosed Date [...] as of this encounter (statuses as of 10/03/2023) Resolved Problems Problem Noted Date Diagnosed Date Resolved Date Dyslipidemia, goal to be determined 08/27/2009 11/21/2013 Overview: Per Lipid Taxonomy. PURE HYPERCHOLESTEROLEM 04/25/200208/11 Overview: Per Lipid Taxonomy. 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 1 Hemoptysis 04/11/1996 08/11/1996 Overview: ICD-10 update of inactive term documented as of this encounter (statuses as of 10/03/2023) Immunizations Name Administration Dates Next Due COVID-19 mRNA, LNP-s, No Pre serve, 2-Dose Series (Moderna) 11/23/2020,10/18/2020 DTP Vaccine 1981,1981,1981 HEP B - Hepatitis B (Dialysis/Immumocomp Pt) 05/02/2023,04/04/2023 MMR - Measles/Mumps/Rubella Vaccine 05/11/1982 OPV - Polio Virus Vaccine (Oral) 1981,04/11 Pneumococcal Conjugate Vacci ne, 20-valent ([id number]) 11/17/2022 Seasonal Influenza, PF, 6 M & [...] Sign Reading Time Taken Comments Blood Pressure 118/75 10/02/2023 2:00 PM EST Pulse 69 10/02/2023 2:00 PM EST Temperature 36.6 C (97.9 F) 10/02/2023 12:[address] Respiratory Rate 16 10/02/2023 2:00 PM EST Oxygen Saturation 96% 10/02/2023 2:00 PM EST Inhaled Oxygen Concentration - - Weight - [...] 11/01/2022 documented as of this encounter Discharge Instructions * Discharge Instr - AVS* Nancy Kan PA-C - 10/02/2023 12:32 PM EST Discharge Date: 10/02/2023 Provider: Nancy Kan PA-C If you are experiencing any problems related to your procedure, please contact Interventional Radiology at [phone] during normal business hours: Monday - Monday, 8:00 am - 4:00 pm. If a problem occurs outside of normal business hours, please call the hospital horizontal drill operator at [phone] and ask for the Interventional Radiologist business information consultant. Contact scheduling for Interventional Radiology at [phone] during normal business hours: Monday - Monday, 8:00 am - 4:00 pm. The information below provides you with the instructions and the list of medications you need to betaking following discharge from the hospital. If you have any questions, please ask before leaving.Please carry this letter with you when you see your doctor in the clinic. If you have questions, you can reach us at the numbers above. SPECIAL INSTRUCTIONS Tunnel Catheter Removal Avoid strenuous activity for 24 to 48 hours after your procedure. Limit bending at the waist for 2 days after the procedure. Do not lift anything heavier than 10 pounds for 3 days after your procedure. Gradually increase your activity after 3 days. Keep dressing clean, dry and intact for 24 hrs. After 24 hrs, change dressing as needed. Dressings may be completely removed in 3 days. You may shower after 24 hours. Gently wash the area and pat it dry. Please DO NOT take a bath, soak in a hot tub, or swim until the wound is completely healed. In the first 48 hours, if you feel like you are going to cough, sneeze, or have a bowel movement, press gently on your incision site. If your incision starts to bleed or swell (access site - neck), sit upright and have someone apply pressure to the incision site for 15 minutes. After the bleeding has stopped, continue to sit upright for an hour and contact Interventional Radiology. If the bleeding does not stop after 15 minutes, call 911 for emergency assistance or go to the closest Emergency Department. When to Call Interventional Radiology Call Interventional Radiology right away if you have any of the following: Fever above 100 degrees Fahrenheit Increased bleeding, redness, swelling, warmth, or discharge at the incision site. Constant or increasing pain, numbness, coldness, or tingling around the incision area. If at any time you experience any of the following or feel you are having a medical emergency, [email or web address] for emergency assistance. Chest Pain Sudden, severe shortness of breath Rapid heart rate Sudden onset of weakness Do not smoke or use tobacco products in any way! If you feel suicidal or homicidal, please call the crisis hotline at 1-648-860-HVIC (9634) Driving: You may resume driving today . Diet: You may resume your current diet as tolerated. Return to work or school: You may return to school or work 2 hours after the procedure, unless otherwise instructed by the physician. documented in this encounter Nursing Notes * Deirdre Leonard RN - 10/02/2023 2:08 PM EST DISCHARGE - POST INTERVENTIONAL RADIOLOGY PROCEDURE Patient meets discharge criteria for Interventional Radiology. Vital signs stable. Dressing clean, dry, and intact. Tunneled line removed. Patient awake and oriented to pre procedure baseline. Discharge instructions given, no questions at this time. Patient tolerating liquids, with no nausea/vomiting. All belongings sent with patient. Discharged to home. Vital Signs: BP: 118/75 (10/02/23 1400) Temp: 36.6 C (97.9 F) (10/02/23 1215) Pulse: 69 (10/02/23 1400) Resp: 16 (10/02/23 1400) SpO2: 96 % (10/02/23 1400) Neurological: Kaye Coma Scale Eyes Open: Spontaneous (10/02/23 1345) Best Verbal Response: Verbally appropriate for age (10/02/23 1345) Best Motor Response: Obeys commands appropriate for age (10/02/23 1345) Coma Score: 15 (10/02/23 1345) Activity: Four Extremities LOC: Fully Awake or Pre-Anesthetic Level of Consciousness BP: Less than (+/-) 20% Resp: Deep Breathe and Cough Freely (10/02 1353) Respiratory: Pain Assessment Flowsheet Row Most Recent Value [facility] 0-10 Pain Score 0 (no pain) documented in this encounter Plan of Treatment Upcoming Encounters Date Type Department Care Team (Latest Contact Info) Description 09/28/2023 Plan of Care Documentation Home Dialysis [facility] [address] [address] [place] [address] 10/04/2023 2:30 PM EST Office Visit Rheumatology, [facility] [address] [facility] [place] [address] Kori Scott MD [address] [facility] [place] [address] Pending Results Name Type Priority Associated Diagnoses Date /Time IR VENOUS ACCESS NON-MEDIPORT Medical Imaging Routine ESRD on peritoneal dialysis (HCC) 10/02/2023 2:10 PM EST Health Maintenance Due Date Last [...] Advance Directives occurred with: Patient Care Teams Power Press Supervisor Relationship Specialty Start Date End Date Tomer Garner MD [address] [facility] [place] [address] PCP - General 09/19/02 documented as of this encounter
--- OUTSIDE RECORDS SUMMARY | 2024-03-17 14:36 | External Medical Summary | Summary of Care ---
Author Name Unknown Organization [facility] Address [address] [place] [address] Phone [phone] Care Team Providers Care Nuclear Supervising Operator Name Role Phone Tomer Garner MD [...] UNITS ESRD Yonny Saldivar MD [address] [place] [address] [address] [place] [address] Referral ID Status Reason Start Date Expiration Date Visits Re quested Visits Authorized [id number] Closed 08/22/2023 02/21/2024 999 0 Encounter Details [...] (Oral) 1981,04/11 Pneumococcal Conjugate Vacci ne, 20-valent ([id number]) 11/17/2022 Pneumococcal Polysaccharide PPV23 (Pneumovax) 02/03/2004 Seasonal [...] 16.8 g/dL 09/05/2023 7:47 AM EST [facility] Blood Blood sample taken from central line / Unknown Venipuncture / Unknown 09/05/2023 6:13 AM EST 09/05/2023 6:13 AM EST Yonny Saldivar MD LAB BLOOD ORDERAB LES [facility] [address] [place] [address] documented in this encounter Visit Diagnoses Diagnosis [...] 6:11 AM EST 4 mcg Epoetin Sloan [address] UNIT/ML inj 7,600 Units 7,600 Units, Intravenous, [...] Directives occurred with: Patient Care Teams Nuclear Supervising Operator Relationship Specialty Start Date End Date Tomer Garner MD [address] [place] [facility] [place] [address] PCP - General 09/19/02 documented as of this encounter
--- OUTSIDE RECORDS SUMMARY | 2024-03-17 14:36 | External Medical Summary | Summary of Care ---
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 Contreras. Osito Farfan MD Fellow Nephrology [facility] documented in this encounter Plan of Treatment Upcoming Encounters Date Type Department Care Team (Late st Contact Info) Description 09/28/2023 Plan of Care Documentation Home Dialysis [address] [place] [address] 10/12/2023 8:00 AM EST Treatment Home Dialysis [address] [place] [address] Nurse, [address] [employer] [address] [place] [address] 10/12/2023 1:00 PM EST Nurse Only Home Dialysis [address] [place], [place] [address] Nurse, [address] [employer] [place] [address] 11/03/2023 1:00 PM EST Office Visit Home Dialysis [address] [place] [address] [facility] [place]ialysis [address] [place] [address] 11/10/2023 8:00 AM EST Treatment Home Dialysis [address] [place] [address] Nurse, [address] [place] [address] 11/10/2023 1:00 PM EST Nurse Only Home Dialysis [place] [address] Nurse, [address] [place] [address] 12/04/2023 1:00 PM EDT Office Visit Home Dialysis [address] [place] [address] [facility] Peritoneal Dialysis [address] [place] [address] 12/11/2023 8:00 AM EDT Treatment Home Dialysis [facility] [place] [address] Nurse, [address] [employer] [place] [address] 12/11/2023 1:00 PM EDT Nurse Only Home Dialysis [address] [place] [address] Nurse, [address] [place], [place] [address] 12/26/2023 1:00 PM EDT Office Visit Home Dialysis [address] [place], [place] [address] Mdc, Peritoneal Dialysis [address] [place] [address] 01/10/2024 8:00 AM EDT Treatment Home Dialysis [facility] [place], [place] [phone] Nurse, [address] [place], [place] [address] 01/10/2024 1:00 PM EDT Nurse Only Home Dialysis [address] [place], [place] [phone] Nurse, [address] [place] [address] 02/08/2024 1:00 PM EDT Office Visit Home Dialysis [address] [place], [place] [address] [facility] Peritoneal Dialysis [address] [place] [facility] [place] [address] 02/10/2024 8:00 AM EDT Treatment Home Dialysis [facility] [place], [place] [address] Nurse, [address] [employer] [place] [address] 02/12/2024 1:00 PM EDT Nurse Only Home Dialysis [address] [place], [place] [address] Nurse, [address] [place], [place] [address] 03/05/2024 1:00 PM EDT Office Visit Home Dialysis [address] [place] [address] M[facility], Peritoneal Dialysis [address] [place] [address] 03/11/2024 8:00 AM EDT Treatment Home Dialysis [facility] [place], [place] [phone] Nurse, Lance [address] [place], [place] [address] 03/11/2024 1:00 PM EDT Nurse Only Home Dialysis [facility] [place], [place] [phone] Nurse, [address] [place], [place] [address] 03/29/2024 1:00 PM EDT Office Visit Home Dialysis [facility] [place], [place] [address] [facility] Peritoneal Dialysis [address] [place] [address] 04/11/2024 8:00 AM EDT Treatment Home Dialysis [facility] [place], [place] [address] Nurse, Lance Met[address] [place], [place] [address] 04/11/2024 1:00 PM EDT Nurse Only Home Dialysis [facility] [place], [place] [address] Nurse, Lance [address]ago [address] [place], [place] [address] 04/29/2024 1:00 PM EDT Office Visit Home Dialysis [address] [place], [place] [address] M[facility], Peritoneal Dialysis [address] [facility] [place], [place] [address] 05/12/2024 8:00 AM EDT Treatment Home Dialysis [facility] [place], [place] [phone] Nurse, [address] [place], [place] [address] 05/14/2024 1:00 PM EDT Nurse Only Home Dialysis [facility] [phone] Nurse, [address] [place], [place] 06/07/2024 1:00 PM EDT Office Visit Home Dialysis [facility] [place], [place] [phone] [facility] Peritoneal Dialysis [address] [place] [address] 06/11/2024 8:00 AM EDT Treatment Home Dialysis [facility] [place], [place] [phone] Nurse, [address] [place], [place] [address] 06/11/2024 1:00 PM EDT Nurse Only Home Dialysis [address] [place], [place] [address] Nurse, Lance Lopez [address] [place], [place] [address] 06/25/2024 1:00 PM EDT Office Visit Home Dialysis [facility] [place], [place] [address] [facility] Peritoneal Dialysis [address] [place] [address] 07/12/2024 8:00 AM EDT Treatment Home Dialysis [facility] [place], [place] [phone] Nurse, [address] [place], [place] [address] 07/12/2024 1:00 PM EDT Nurse Only Home Dialysis [address] [place], [place] [phone] Nurse, [place] [address] [address] 07/22/2024 1:00 PM EST Office Visit Home Dialysis [facility] [place] [address] [facility] Peritoneal Dialysis [address] [place], [place] [address] 08/11/2024 8:00 AM EST Treatment Home Dialysis [facility] [place], [place] [phone] Nurse, [employer] [address] [place] [address] [address] 08/12/2024 1:00 PM EST Nurse Only Home Dialysis [facility] [place], [place] [address] Nurse, [employer] [address] [place], [place] [address] 08/28/2024 1:00 PM EST Office Visit Home Dialysis [facility] [place], [place] [address] [facility] [place] Peritoneal Dialysis [address] [place], [place] [address] Health Maintenance Due Date Last Done Comments [...] 8:46 AM EST 4 mcg Epoetin Sloan [address] UNIT/ML inj 7,600 Units 7,600 Units, Intravenous, [...] Advance Directives occurred with: Patient Care Teams Field Crop Harvest Contractor Relationship Specialty Start Date End Date Tomer Garner MD [address] [place] [address] PCP - General 09/19/02 documented as of this encounter
--- OUTSIDE RECORDS SUMMARY | 2024-03-17 14:36 | External Medical Summary | Summary of Care ---
Author Name Unknown Organization [facility] Address [address] [place] [address] Phone [phone] Care Team Providers Care Right Of Way Maintenance Supervisor Name Role Phone Tomer Garner MD Primary Care Provider [phone] Encounter Details Date Type Department Care Team (Late st Contact Info) Description 09/28/2023 Documentation Home Dialysis [facility] [address] [place] [address] Yonny Saldivar MD [address] [place] [address] Allergies No known active allergiesdocumented as of this encounter (statuses as of 10/06/2023) Medications Medication Sig Dispensed Refills Start Date [...] as of this encounter (statuses as of 10/06/2023) Active Problems Problem Noted Date Diagnosed Date [...] as of this encounter (statuses as of 10/06/2023) Resolved Problems Problem Noted Date Diagnosed Date Resolved Date Dyslipidemia, goal to be determined 08/27/2009 11/21/2013 Overview: Per Lipid Taxonomy. PURE HYPERCHOLESTEROLEM 04/25/200208/11 Overview: Per Lipid Taxonomy. 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 1 Hemoptysis 04/11/1996 08/11/1996 Overview: ICD-10 update of inactive term documented as of this encounter (statuses as of 10/06/2023) Immunizations Name Administration Dates Next Due COVID-19 mRNA, LNP-s, No Pre serve, 2-Dose Series (Moderna) 11/23/2020,10/18/2020 DTP Vaccine 1981,1981,1981 HEP B - Hepatitis B (Dialysis/Immumocomp Pt) 05/02/2023,04/04/2023 MMR - Measles/Mumps/Rubella Vaccine 05/11/1982 OPV - Polio Virus Vaccine (Oral) 1981,04/11 Pneumococcal Conjugate Vacci ne, 20-valent ([id number]) 11/17/2022 Seasonal Influenza, PF, 6 M & [...] [address], [place] [id number] 10/12/2023 8:00 AM EST Treatment Home Dialysis [facility] [address] [place], [place] [address] Nurse, [address] [place], [place] [address] 10/12/2023 1:00 PM EST Nurse Only Home Dialysis [address] [place], [place] [address] Nurse, [address] [place] [address] 11/03/2023 1:00 PM EST Office Visit Home Dialysis [facility] [address] [place], [place] [address] [facility], Peritoneal Dialysis [address] [place], [place] [address] 11/10/2023 8:00 AM EST Treatment Home Dialysis Cl[facility] [address] [place], [place] [address] Nurse, Lance[address] [place], [place] [address] 11/10/2023 1:00 PM EST Nurse Only Home Dialysis [facility] [place], [place] [address] Nurse, Lance [employer] [place], [place] [address] 12/04/2023 1:00 PM EDT Office Visit Home Dialysis Cl[address] [place], [place] [address] [facility], Peritoneal Dialysis [address] [place] [address] 12/11/2023 8:00 AM EDT Treatment Home Dialysis Cl[address] [place], [place] [address] Nurse, Lance [address] [employer] [address] [place], [place] [address] 12/11/2023 1:00 PM EDT Nurse Only Home Dialysis [facility] [place], [place] [address] Nurse, Lance [address] [employer] [address] [place], [place] [address] 12/26/2023 1:00 PM EDT Office Visit Home Dialysis [facility] [address] [place], [place] [address] [facility], Peritoneal Dialysis [address] [place] [address] 01/10/2024 8:00 AM EDT Treatment Home Dialysis [facility] [address] [place], [place] [phone] Nurse, Lance [employer] [address] [place], [place] [address] 01/10/2024 1:00 PM EDT Nurse Only Home Dialysis [facility] [address] [place], [place] [phone] Nurse, Lance [address] [employer] [address] [place], [place] [address] 02/08/2024 1:00 PM EDT Office Visit Home Dialysis Clau [address] [place], [place] [address] [facility], Peritoneal Dialysis [address] [place] [address] 02/10/2024 8:00 AM EDT Treatment Home Dialysis Clau [address] [place], [place] [phone] Nurse, Lance [address] [employer] [address] [place], [place] [address] 02/12/2024 1:00 PM EDT Nurse Only Home Dialysis [facility] [place], [place] [address] Nurse, Lance [address] [employer] [address] [place] [address] 03/05/2024 1:00 PM EDT Office Visit Home Dialysis Clau [address] [place], [place] [address] [facility], Peritoneal Dialysis [address] [place] [address] 03/11/2024 8:00 AM EDT Treatment Home Dialysis Clau [address] [place], [place] [phone] Nurse, Lance [address] [employer] [address] [place] [address] 03/11/2024 1:00 PM EDT Nurse Only Home Dialysis Cl[facility] [address] [place], [place] [phone] Nurse, Lance [address] [employer] [address] [place] [address] 03/29/2024 1:00 PM EDT Office Visit Home Dialysis [facility] [address] [place] [address] [facility], Peritoneal Dialysis [address] [place] [address] 04/11/2024 8:00 AM EDT Treatment Home Dialysis Clau [address] [place], [place] [address] Nurse, Lance [address] [employer] [address] [place] [address] 04/11/2024 1:00 PM EDT Nurse Only Home Dialysis [address] [place] [address] Nurse, [address] [employer] [address] [place] [address] 04/29/2024 1:00 PM EDT Office Visit Home Dialysis Clau [address] [place], [place] [address] [facility], Peritoneal Dialysis [address] [place] [address] 05/12/2024 8:00 AM EDT Treatment Home Dialysis Clau [address] [place], [place] [address] Nurse, Lance [address] [employer] [address] [place], [place] [address] 05/14/2024 1:00 PM EDT Nurse Only Home Dialysis Clau [address] [place], [place] [phone] Nurse, Lance [address] [employer] [address] [place], [place] [address] 06/07/2024 1:00 PM EDT Office Visit Home Dialysis Cl[facility] [address] [place], [place] [address] [facility], Peritoneal Dialysis [address] [place] [address] 06/11/2024 8:00 AM EDT Treatment Home Dialysis Clau [address] [place], [place] [address] Nurse, Lance [address] [employer] [address] [place], [place] [address] 06/11/2024 1:00 PM EDT Nurse Only Home Dialysis [address] [place], [place] [address] Nurse, Lance [employer] [address] [place], [place] [address] 06/25/2024 1:00 PM EDT Office Visit Home Dialysis Clau [address] [place], [place] [address] [facility], Peritoneal Dialysis [address] [place] [address] 07/12/2024 8:00 AM EDT Treatment Home Dialysis Clau [address] [place], [place] [phone] Nurse, Lance Lopez [employer] [address], [place] [id number] 07/12/2024 1:00 PM EDT Nurse Only Home Dialysis [facility] [address] [place], [place] [address] Nurse, Lance Lopez [employer] [address] [place], [place] [address] 07/22/2024 1:00 PM EST Office Visit Home Dialysis [facility] [address] [place], [place] [phone] [facility], Peritoneal Dialysis [address] [facility] [place] [address] 08/11/2024 8:00 AM EST Treatment Home Dialysis Cl[facility] [address] [place], [place] [address] Nurse, Lance Lopez [employer] [address] [place], [place] [address] 08/12/2024 1:00 PM EST Nurse Only Home Dialysis Clau [address] [place], [place] [address] Nurse, Lance Lopez [employer] [address] [place], [place] [address] 08/28/2024 1:00 PM EST Office Visit Home Dialysis [facility] [address] [place], [place] [address] [facility], Peritoneal Dialysis [address] [place], [place] [id number] Health Maintenance Due Date Last Done Comments [...] Advance Directives occurred with: Patient Care Teams Right Of Way Maintenance Supervisor Relationship Specialty Start Date End Date Tomer Garner MD [address] [facility], [place] [address] PCP - General 09/19/02 documented as of this encounter
--- OUTSIDE RECORDS SUMMARY | 2024-03-17 14:37 | External Medical Summary | Summary of Care ---
Author Name Unknown Organization [facility] Address [address] [place] [address] Phone [phone] Care Team Providers Care Technical Sales Director Name Role Phone Tomer Garner [...] UNITS ESRD Yonny Saldivar MD [address] [place] [address] [address] [place] [address] Referral ID Status Reason Start Date Expiration Date Visits Re quested Visits Authorized [id number] Closed 08/22/2023 02/21/2024 999 0 Encounter Details Date Type Department Care Team (Late st Contact Info) Description 09/02/2023 5:30 AM EST Treatment Hemodialysis Cl[facility] Lucas [...] as of this encounter (statuses as of 10/02/2023) Medications Medication Sig Dispensed Refills Start Date [...] as of this encounter (statuses as of 10/02/2023) Active Problems Problem Noted Date Diagnosed Date [...] as of this encounter (statuses as of 10/02/2023) Resolved Problems Problem Noted Date Diagnosed Date Resolved Date Dyslipidemia, goal to be determined 08/27/2009 11/21/2013 Overview: Per Lipid Taxonomy. PURE HYPERCHOLESTEROLEM 04/25/200208/11 Overview: Per Lipid Taxonomy. 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 1 Hemoptysis 04/11/1996 08/11/1996 Overview: ICD-10 update of inactive term documented as of this encounter (statuses as of 10/02/2023) Immunizations Name Administration Dates Next Due COVID-19 mRNA, LNP-s, No Pre serve, 2-Dose Series (Moderna) 11/23/2020,10/18/2020 DTP Vaccine 1981,1981,1981 HEP B - Hepatitis B (Dialysis/Immumocomp Pt) 05/02/2023,04/04/2023 MMR - Measles/Mumps/Rubella Vaccine 05/11/1982 OPV - Polio Virus Vaccine (Oral) 1981,04/11 Pneumococcal Conjugate Vacci ne, 20-valent ([id number]) 11/17/2022 Seasonal Influenza, PF, 6 M & [...] Sign Reading Time Taken Comments Blood Pressure 114/82 09/02/2023 9:31 AM EST Pulse 82 09/02/2023 9:45 AM EST Temperature 37.2 C (99 F) 09/02/2023 9:45 AM EST Respiratory Rate 18 09/02/2023 9:45 AM EST Oxygen Saturation - - [...] [address] Dr [address] [place] [address] 10/04/2023 2:30 PM EST Office Visit Rheumatology, [facility] [address] [facility] [place] [phone] Kori Scott MD [address] [facility] [place] [address] Health Maintenance Due Date Last Done [...] 4 mcg 4 mcg, Intravenous, ONCE, On 09/02/23 at 0730, For 1 dose Given 09/02/2023 6:54 AM EST 4 mcg Epoetin Sloan [address] UNIT/ML inj 7,600 Units 7,600 Units, Intravenous, ONCE, On 09/02/23 at 0730, For 1 dose Given 09/02/2023 6:55 AM EST 7,600 Units hEParin 1,000 unit/mL infusion for dialysis 500 Units/hr (0.5 mL/hr), Hemodialysis, CONTINUOUS, Starting on 09/02/23 at 0730, Until 09/02/23 at 1508, Maintenance: Stop 1 hour before dialysis end in AVF/AVG. Continue through dialysis in CVC. The total delivered dose is approximately 2,500 to 5,000 units, based on weight and treatment duration assumptions New Bag 09/02/2023 6:55 AM EST 500 Units/hr 0.5 mL/hr hEParin 1000 UNIT/ML inj 2,000 Units 2,000 Units, Intravenous, ONCE, On 09/02/23 at 0730, For 1 dose, Loading dose Given 09/02/2023 5:32 AM EST 2,000 Units sodium citrate 4% (Anticoagulant Sodium Citrate) inj 2.5 mL 2.5 mL, Dialysis catheter, ONCE, On 09/02/23 at 0730, For 1 dose, ARTERIAL For use only to lock dialysis catheter after dialysis Given 09/02/2023 9:34 AM EST 2.5 mL sodium citrate 4% (Anticoagulant Sodium Citrate) inj 2.5 mL 2.5 mL, Dialysis catheter, ONCE, On 09/02/23 at 0730, For 1 dose, VENOUS For use only to lock dialysis catheter after dialysis Given 09/02/2023 9:34 AM EST 2.5 mL documented in this [...] Advance Directives occurred with: Patient Care Teams Technical Sales Director Relationship Specialty Start Date End Date Tomer Garner MD [address] [place] [address] PCP - General 09/19/02 documented as of this encounter
--- OUTSIDE RECORDS SUMMARY | 2024-03-17 14:37 | External Medical Summary | Summary of Care ---
Author Name Unknown Organization [facility] Address [address] [place] [address] Phone [phone] Care Team Providers Care Ground Crewman Name Role Phone Tomer Garner MD Primary [...] UNITS ESRD Yonny Saldivar MD [address] [place] [address] [address] [place] [address] Referral ID Status Reason Start Date Expiration Date Visits Re quested Visits Authorized [id number] Closed 08/22/2023 02/21/2024 999 0 Encounter Details Date Type Department Care Team (Late st Contact Info) Description 09/05/2023 5:30 AM EST Treatment Hemodialysis [facility] Lucas [...] as of this encounter (statuses as of 09/29/2023) Medications Medication Sig Dispensed Refills Start Date [...] as of this encounter (statuses as of 09/29/2023) Active Problems Problem Noted Date Diagnosed Date [...] as of this encounter (statuses as of 09/29/2023) Resolved Problems Problem Noted Date Diagnosed Date Resolved Date Dyslipidemia, goal to be determined 08/27/2009 11/21/2013 Overview: Per Lipid Taxonomy. PURE HYPERCHOLESTEROLEM 04/25/200208/11 Overview: Per Lipid Taxonomy. 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 1 Hemoptysis 04/11/1996 08/11/1996 Overview: ICD-10 update of inactive term documented as of this encounter (statuses as of 09/29/2023) Immunizations Name Administration Dates Next Due COVID-19 mRNA, LNP-s, No Pre serve, 2-Dose Series (Moderna) 11/23/2020,10/18/2020 DTP Vaccine 1981,1981,1981 HEP B - Hepatitis B (Dialysis/Immumocomp Pt) 05/02/2023,04/04/2023 MMR - Measles/Mumps/Rubella Vaccine 05/11/1982 OPV - Polio Virus Vaccine (Oral) 1981,04/11 Pneumococcal Conjugate Vacci ne, 20-valent ([id number]) 11/17/2022 Seasonal Influenza, PF, 6 M & [...] Sign Reading Time Taken Comments Blood Pressure 125/81 09/05/2023 9:30 AM EST Pulse 78 09/05/2023 9:40 AM EST Temperature 37 C (98.6 F) 09/05/2023 9:40 AM EST Respiratory Rate 16 09/05/2023 9:40 AM EST Oxygen Saturation - - [...] [address] [place] [address] 10/02/2023 12:30 PM EST Hospital Encounter Interventional Radiology [facility] [place] [facility], [facility] 1st Floor [address] [facility] [place] [address] 10/04/2023 2:30 PM EST Office Visit Rheumatology, [facility] [address] [place] [address] Kori Scott MD [address] [place] [address] Health Maintenance Due Date Last Done Comments [...] 4 mcg 4 mcg, Intravenous, ONCE, On Mon09/05/23 at 0645, For 1 dose Given 09/05/2023 6:17 AM EST 4 mcg Epoetin Sloan [address] UNIT/ML inj 7,600 Units 7,600 Units, Intravenous, ONCE, On Mon09/05/23 at 0645, For 1 dose Given 09/05/2023 6:18 AM EST 7,600 Units hEParin 1,000 unit/mL infusion for dialysis 500 Units/hr (0.5 mL/hr), Hemodialysis, CONTINUOUS, Starting on Mon09/05/23 at 0645, Until Mon09/05/23 at 1501, Maintenance: Stop 1 hour before dialysis end in AVF/AVG. Continue through dialysis in CVC. The total delivered dose is approximately 2,500 to 5,000 units, based on weight and treatment duration assumptions Start Infusion 09/05/2023 5:37 AM EST 500 Units/hr 0.5 mL/hr hEParin 1000 UNIT/ML inj 2,000 Units 2,000 Units, Intravenous, ONCE, On Mon09/05/23 at 0645, For 1 dose, Loading dose Given 09/05/2023 5:37 AM EST 2,000 Units sodium citrate 4% (Anticoagulant Sodium Citrate) inj 2.5 mL 2.5 mL, Dialysis catheter, ONCE, On Mon09/05/23 at 0645, For 1 dose, ARTERIAL For use only to lock dialysis catheter after dialysis Given 09/05/2023 9:40 AM EST 1.9 mL sodium citrate 4% (Anticoagulant Sodium Citrate) inj 2.5 mL 2.5 mL, Dialysis catheter, ONCE, On Mon09/05/23 at 0645, For 1 dose, VENOUS For use only to lock dialysis catheter after dialysis Given 09/05/2023 9:40 AM EST 2.1 mL documented in this [...] Advance Directives occurred with: Patient Care Teams Ground Crewman Relationship Specialty Start Date End Date Tomer Garnre MD [address] [place] [address] PCP - General 09/19/02 documented as of this encounter
--- OUTSIDE RECORDS SUMMARY | 2024-03-17 14:37 | External Medical Summary | Summary of Care ---
Author Name Unknown Organization [facility] Address [address] [place] [address] Phone [phone] Care Team Providers Care X Ray Physician Name Role Phone Tomer Garner MD Primary [...] UNITS ESRD Yonny Saldivar MD [address] [place] [address] [address] [place] [address] Referral ID Status Reason Start Date Expiration Date Visits Re quested Visits Authorized [id number] Closed 08/22/2023 02/21/2024 999 0 Encounter Details [...] (Oral) 1981,04/11 Pneumococcal Conjugate Vacci ne, 20-valent ([id number]) 11/17/2022 Seasonal Influenza, PF, 6 M & [...] EST Office Visit Rheumatology, [facility] [address] [facility] [place] [phone] Kori Scott MD [address] [place] [facility] [place] [address] Health Maintenance Due Date Last Done [...] 6:54 AM EST 4 mcg Epoetin Sloan [address] UNIT/ML inj 7,600 Units 7,600 Units, Intravenous, [...] Advance Directives occurred with: Patient Care Teams X Ray Physician Relationship Specialty Start Date End Date Tomer Garner MD [address] [place] [address] PCP - General 09/19/02 documented as of this encounter
--- OUTSIDE RECORDS SUMMARY | 2024-03-17 14:37 | External Medical Summary | Summary of Care ---
Author Name Unknown Organization [facility] Address [address] [place] [address] Phone [phone] Care Team Providers Care Audio Recording Engineer Name Role Phone Tomer Garner MD Primary Care Provider Reason for Visit * Episode Based Medications (Routine) - Closed Specialty Diagnoses / Procedures Referred By Conternestina t Referred To Contact Diagnoses ESRD on peritoneal dialysis (HCC) 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 chronic kidney disease, not on chronic dialysis (HCC) Procedures [place] EPOETIN SLOAN, NON-ESRD [place] EPOETIN SLOAN, 100 UNITS ESRD Yonny Saldivar MD [address] [place] [address] [address] [place] [address] Referral ID Status Reason Start Date Expiration Date Visits Re quested Visits Authorized [id number] Closed 08/22/2023 02/21/2024 999 0 Encounter Details [...] (Oral) 1981,04/11 Pneumococcal Conjugate Vacci ne, 20-valent ([id number]) 11/17/2022 Seasonal Influenza, PF, 6 M & [...] [address] [place] [address] [id number] 10/02/2023 12:30 PM EST Hospital Encounter Interventional Radiology [facility] [place], [facility] 1st Floor [address] [place] [address] 10/04/2023 2:30 PM EST Office Visit Rheumatology, [facility] [address] [place] [address] [facility] Scott [facility] [address] [facility] [address] Health Maintenance Due Date Last Done Comments [...] 6:54 AM EST 4 mcg Epoetin Sloan [address] UNIT/ML inj 7,600 Units 7,600 Units, Intravenous, [...] Directives occurred with: Patient Care Teams Audio Recording Engineer Relationship Specialty Start Date End Date Tomer Garner MD [address] [place] [address] PCP - General 09/19/02 documented as of this encounter
--- OUTSIDE RECORDS SUMMARY | 2024-03-17 14:37 | External Medical Summary | Summary of Care ---
Author Name Unknown Organization [facility] Address [address] [place] [address] Phone [phone] Care Team Providers Care Snuff Blender Name Role Phone Tomer Garner MD Primary Care Provider Reason for Visit * Reason Comments Hemodialysis * Episode Based Medications (Routine) - Closed Specialty Diagnoses / Procedures Referred By Contac t Referred To Contact Diagnoses ESRD on peritoneal dialysis (HCC) 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 chronic kidney disease, not on chronic dialysis (HCC) Procedures [place] EPOETIN SLOAN, NON-ESRD [place] EPOETIN SLOAN, 100 UNITS ESRD Yonny Saldivar MD [address] [place] [address] D[address] [address] [place] [address] Referral ID Status Reason Start Date Expiration Date Visits Re quested Visits Authorized [id number] Closed 08/22/2023 02/21/2024 999 0 Encounter Details [...] (Oral) 1981,04/11 Pneumococcal Conjugate Vacci ne, 20-valent ([id number]) 11/17/2022 Seasonal Influenza, PF, 6 M & [...] [address] [place] [address] 10/02/2023 12:30 PM EST Hospital Encounter Interventional Radiology [facility] [place], [facility] 1st Floor [address] [place] [facility] [place] [address] 10/04/2023 2:30 PM EST Office Visit Rheumatology, [facility] [address] [place] [address] Kori Scott MD [address] [facility] [place] [address] Health Maintenance Due Date Last Done Comments [...] 6:17 AM EST 4 mcg Epoetin Sloan [address] UNIT/ML inj 7,600 Units 7,600 Units, Intravenous, [...] Advance Directives occurred with: Patient Care Teams Snuff Blender Relationship Specialty Start Date End Date Tomer Garner MD [address] [place] [address] PCP - General 09/19/02 documented as of this encounter
--- OUTSIDE RECORDS SUMMARY | 2024-03-17 14:37 | External Medical Summary | Summary of Care ---
Author Name Unknown Organization [facility] Address [address] [place] [address] Phone [phone] Care Team Providers Care Construction Operations Manager Name Role Phone Tomer Garner MD Primary Care Provider [phone] Reason for Visit * Reason Comments Hemodialysis * Episode Based Medications (Routine) - Closed Specialty Diagnoses / Procedures Referred By Contac t Referred To Contact Diagnoses ESRD on peritoneal dialysis (HCC) 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 chronic kidney disease, not on chronic dialysis (HCC) Procedures CO EPOETIN SLOAN, NON-ESRD CO EPOETIN SLOAN, 100 UNITS ESRD Yonny Saldivar MD [address] [place] [address] [address] [place] [id number] Referral ID Status Reason Start Date Expiration Date Visits Re quested Visits Authorized [id number] Closed 08/22/2023 02/21/2024 999 0 Encounter Details Date Type Department Care Team (Late st Contact Info) Description 09/07/2023 5:30 AM EST Treatment Hemodialysis [facility] [...] as of this encounter (statuses as of 09/30/2023) Medications Medication Sig Dispensed Refills Start Date [...] as of this encounter (statuses as of 09/30/2023) Active Problems Problem Noted Date Diagnosed Date [...] as of this encounter (statuses as of 09/30/2023) Resolved Problems Problem Noted Date Diagnosed Date Resolved Date Dyslipidemia, goal to be determined 08/27/2009 11/21/2013 Overview: Per Lipid Taxonomy. PURE HYPERCHOLESTEROLEM 04/25/200208/11 Overview: Per Lipid Taxonomy. 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 1 Hemoptysis 04/11/1996 08/11/1996 Overview: ICD-10 update of inactive term documented as of this encounter (statuses as of 09/30/2023) Immunizations Name Administration Dates Next Due COVID-19 mRNA, LNP-s, No Pre serve, 2-Dose Series (Moderna) 11/23/2020,10/18/2020 DTP Vaccine 1981,1981,1981 HEP B - Hepatitis B (Dialysis/Immumocomp Pt) 05/02/2023,04/04/2023 MMR - Measles/Mumps/Rubella Vaccine 05/11/1982 OPV - Polio Virus Vaccine (Oral) 1981,04/11 Pneumococcal Conjugate Vacci ne, 20-valent ([id number]) 11/17/2022 Seasonal Influenza, PF, 6 M & [...] Sign Reading Time Taken Comments Blood Pressure 141/91 09/07/2023 9:43 AM EST Pulse 76 09/07/2023 9:43 AM EST Temperature 37.1 C (98.8 F) 09/07/2023 9:43 AM ES T Respiratory Rate 18 09/07/2023 9:43 AM EST Oxygen Saturation - - Inhaled [...] [address] [id number] 10/02/2023 12:30 PM EST Hospital Encounter Interventional Radiology [facility] [place], [facility] 1st Floor [address] [facility] [place] [address] 10/04/2023 2:30 PM EST Office Visit Rheumatology, [place] [address] [facility] [place] [address] Kori Scott MD [address] [facility] [place] [address] Health Maintenance Due Date Last Done Comments [...] mcg 4 mcg, Intravenous, ONCE, On Marylu 09/07/23 at 0715, For 1 dose Given 09/07/2023 6:33 AM EST 4 mcg Epoetin Sloan [address] UNIT/ML inj 7,600 Units 7,600 Units, Intravenous, ONCE, On Marylu 09/07/23 at 0715, For 1 dose Given 09/07/2023 6:34 AM EST 7,600 Units hEParin 1,000 unit/mL infusion for dialysis 500 Units/hr (0.5 mL/hr), Hemodialysis, CONTINUOUS, Starting on Marylu 09/07/23 at 0715, Until Marylu 09/07/23 at 1438, Maintenance: Stop 1 hour before dialysis end in AVF/AVG. Continue through dialysis in CVC. The total delivered dose is approximately 2,500 to 5,000 units, based on weight and treatment duration assumptions New Bag 09/07/2023 6:33 AM EST 500 Units/hr 0.5 mL/hr hEParin 1000 UNIT/ML inj 2,000 Units 2,000 Units, Intravenous, ONCE, On Marylu 09/07/23 at 0715, For 1 dose, Loading dose Given 09/07/2023 6:33 AM EST 2,000 Units sodium citrate 4% (Anticoagulant Sodium Citrate) inj 2.5 mL 2.5 mL, Dialysis catheter, ONCE, On Marylu 09/07/23 at 0715, For 1 dose, ARTERIAL For use only to lock dialysis catheter after dialysis Given 09/07/2023 6:33 AM EST 2.5 mL sodium citrate 4% (Anticoagulant Sodium Citrate) inj 2.5 mL 2.5 mL, Dialysis catheter, ONCE, On Marylu 09/07/23 at 0715, For 1 dose, VENOUS For use only to lock dialysis catheter after dialysis Given 09/07/2023 6:33 AM EST 2.5 mL documented in this [...] Advance Directives occurred with: Patient Care Teams Construction Operations Manager Relationship Specialty Start Date End Date Tomer Garner MD [address] [place] [address] PCP - General 09/19/02 documented as of this encounter
--- OUTSIDE RECORDS SUMMARY | 2024-03-17 14:37 | External Medical Summary | Summary of Care ---
Author Name Unknown Organization [facility] Address [address] [place] [address] Phone [phone] Care Team Providers Care Cafe Aide Name Role Phone Tomer Garner MD Primary Care Provider Reason for Visit * Reason Comments Hemodialysis * Episode Based Medications (Routine) - Closed Specialty Diagnoses / Procedures Referred By Contac t Referred To Contact Diagnoses ESRD on peritoneal dialysis (HCC) 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 chronic kidney disease, not on chronic dialysis (HCC) Procedures [place] EPOETIN SLOAN, NON-ESRD [place] EPOETIN SLOAN, 100 UNITS ESRD Yonny Saldivar MD [address] [place] [address] [address] [place] [address] Referral ID Status Reason Start Date Expiration Date Visits Re quested Visits Authorized [id number] Closed 08/22/2023 02/21/2024 999 0 Encounter Details [...] (Oral) 1981,04/11 Pneumococcal Conjugate Vacci ne, 20-valent ([id number]) 11/17/2022 Seasonal Influenza, PF, 6 M & [...] [address] [place] [id number] 10/02/2023 12:30 PM EST Hospital Encounter Interventional Radiology [facility], [facility] 1st Floor [address] [facility] [place] [address] 10/04/2023 2:30 PM EST Office Visit Rheumatology, [place] [address] [place] [address] Kori Scott MD [address] [facility] [place] [address] Health Maintenance Due Date Last Done Comments [...] 6:17 AM EST 4 mcg Epoetin Sloan [address] UNIT/ML inj 7,600 Units 7,600 Units, Intravenous, [...] Advance Directives occurred with: Patient Care Teams Cafe Aide Relationship Specialty Start Date End Date Tomer Garner MD [address] [place] [address] PCP - General 09/19/02 documented as of this encounter
--- OUTSIDE RECORDS SUMMARY | 2024-03-17 14:37 | External Medical Summary | Summary of Care ---
Author Name Unknown Organization [facility] Address [address] [place] [address] Phone [phone] Care Team Providers Care Manager Critical Care Unit Name Role Phone Tomer Garner MD Primary Care Provider [phone] Reason for Visit * Reason Comments eRx-Medication Refill Encounter Details Date Type Department Care Team (Late st Contact Info) Description 09/29/2023 Refill [facility] Nephrology [address] [place] [address] Akosua Lopez MD [address] [place] [address] Allergies No known active allergiesdocumented [...] THE MORNING 90 Tablet 6 09/29/2023 Active Metoprolol Succinate ER 100 MG Oral [...] (Oral) 1981,04/11 Pneumococcal Conjugate Vacci ne, 20-valent ([id number]) 11/17/2022 Seasonal Influenza, PF, 6 M & [...] encounter Miscellaneous Notes * Telephone Encounter - Linus Sharma MD - 09/29/2023 1:31 PM EST Signed Prescriptions: Disp Refills Metoprolol Succinate ER 100 MG Oral Tablet*90 Tab*6 Sig: TAKE 1TABLET BY MOUTH EVERY DAY IN THE MORNINGAuthorizing Provider: LINUS SHARMA documented in this encounter Plan of Treatment Upcoming Encounters Date Type Department Care Team (Latest Contact Info) Description 09/28/2023 Plan of Care Documentation Home Dialysis [facility] [place] [address] [place] [id number] 10/02/2023 12:30 PM EST Hospital Encounter Interventional Radiology [facility], [facility] 1st Floor [address] [place] [address] 10/04/2023 2:30 PM EST Office Visit Rheumatology, [place] [address] [place] [address] Kori Scott MD [address] [place] [address] Health Maintenance Due Date Last Done Comments [...] Directives occurred with: Patient Care Teams Manager Critical Care Unit Relationship Specialty Start Date End Date Tomer Garner MD [address] [place] [address] PCP - General 09/19/02 documented as of this encounter
--- OUTSIDE RECORDS SUMMARY | 2024-03-17 14:37 | External Medical Summary | Summary of Care ---
Author Name Unknown Organization [facility] Address [address] [place] [address] Phone [phone] Care Team Providers Care Gold Letterer Name Role Phone Tomer Garner MD Primary [...] UNITS ESRD Yonny Saldivar MD [address] [place] [address] [address] [place] [address] Referral ID Status Reason Start Date Expiration Date Visits Re quested Visits Authorized [id number] Closed 08/22/2023 02/21/2024 999 0 Encounter Details [...] (Oral) 1981,04/11 Pneumococcal Conjugate Vacci ne, 20-valent ([id number]) 11/17/2022 Seasonal Influenza, PF, 6 M & [...] [address] [id number] 10/02/2023 12:30 PM EST Hospital Encounter Interventional Radiology [facility], [facility] 1st Floor [address] [place] [facility] [address] 10/04/2023 2:30 PM EST Office Visit Rheumatology, [place] [address] [facility] [place] [address] Kori Scott MD [address] [facility] [address] Health Maintenance Due Date Last Done Comments [...] 6:33 AM EST 4 mcg Epoetin Sloan [address] UNIT/ML inj 7,600 Units 7,600 Units, Intravenous, [...] Advance Directives occurred with: Patient Care Teams Gold Letterer Relationship Specialty Start Date End Date Tomer Garner MD [address] [place] [address] PCP - General 09/19/02 documented as of this encounter
--- OUTSIDE RECORDS SUMMARY | 2024-03-17 14:37 | External Medical Summary | Summary of Care ---
Author Name Unknown Organization [facility] Address [address] [place] [address] Phone [phone] Care Team Providers Care Diesel Stationary Engineer Name Role Phone Tomer Garner MD [...] UNITS ESRD Yonny Saldivar MD [address] [place] [address] [address] [place] [address] Referral ID Status Reason Start Date Expiration Date Visits Re quested Visits Authorized [id number] Closed 08/22/2023 02/21/2024 999 0 Encounter Details [...] (Oral) 1981,04/11 Pneumococcal Conjugate Vacci ne, 20-valent ([id number]) 11/17/2022 Seasonal Influenza, PF, 6 M & [...] [address] [id number] 10/02/2023 12:30 PM EST Hospital Encounter Interventional Radiology [facility] [place], [facility] 1st Floor [address] [place] [address] 10/04/2023 2:30 PM EST Office Visit Rheumatology, [place] [address] [place] [address] [facility]ori Scott MD [address] [facility] [address] Health Maintenance Due Date Last Done Comments [...] 6:54 AM EST 4 mcg Epoetin Sloan [address] UNIT/ML inj 7,600 Units 7,600 Units, Intravenous, [...] Advance Directives occurred with: Patient Care Teams Diesel Stationary Engineer Relationship Specialty Start Date End Date Tomer Garner MD [address] [place] [address] PCP - General 09/19/02 documented as of this encounter
--- OUTSIDE RECORDS SUMMARY | 2024-03-17 14:37 | External Medical Summary | Summary of Care ---
Author Name Unknown Organization [facility] Address [address] [place] [address] Phone [phone] Care Team Providers Care Spearer Name Role Phone Tomer Garner MD Primary [...] UNITS ESRD Yonny Saldivar MD [address] [place] [address] [address] [place] [address] Referral ID Status Reason Start Date Expiration Date Visits Re quested Visits Authorized [id number] Closed 08/22/2023 02/21/2024 999 0 Encounter Details [...] (Oral) 1981,04/11 Pneumococcal Conjugate Vacci ne, 20-valent ([id number]) 11/17/2022 Seasonal Influenza, PF, 6 M & [...] [address] [id number] 10/02/2023 12:30 PM EST Hospital Encounter Inter[place] [facility] [facility] 1st Floor [address] [place] [address] 10/04/2023 2:30 PM EST Office Visit Rheumatology, [place] [address] [facility] [place] [address] Kori Scott MD [address] [place] [address] Health Maintenance Due Date Last Done Comments [...] 6:33 AM EST 4 mcg Epoetin Sloan [address] UNIT/ML inj 7,600 Units 7,600 Units, Intravenous, ONCE, On Marylu 09/07/23 at 0715, For 1 dose Given 09/07/2023 6:34 AM EST 7,600 Units hEParin 1,000 unit/mL infusion for dialysis 500 Units/hr (0.5 mL/hr), Hemodialysis, CONTINUOUS, Starting on Marylu 09/07/23 at 0715, Until Mraylu 09/07/23 at 1438, Maintenance: Stop 1 hour [...] Advance Directives occurred with: Patient Care Teams Spearer Relationship Specialty Start Date End Date Tomer Garner MD [address] [place] [address] PCP - General 09/19/02 documented as of this encounter
--- OUTSIDE RECORDS SUMMARY | 2024-03-17 14:37 | External Medical Summary | Summary of Care ---
Author Name Unknown Organization [facility] Address [address] [place] [address] Phone [phone] Care Team Providers Care Public Health Social Worker Name Role Phone Tomer Garner MD [...] UNITS ESRD Yonny Saldivar MD [address] [place] [address] [address] [place] [address] [address] Referral ID Status Reason Start Date Expiration Date Visits Re quested Visits Authorized [id number] Closed 08/22/2023 02/21/2024 999 0 Encounter Details [...] (Oral) 1981,04/11 Pneumococcal Conjugate Vacci ne, 20-valent ([id number]) 11/17/2022 Seasonal Influenza, PF, 6 M & [...] [address] [place] [id number] 10/02/2023 12:30 PM EST Hospital Encounter Interventional Radiology [facility], [facility] 1st Floor [address] [facility] [place] [address] 10/04/2023 2:30 PM EST Office Visit Rheumatology, [place] [address] [place] [address] [address] Kori Scott MD [address] [place] [address] Health Maintenance Due Date Last Done Comments [...] 6:17 AM EST 4 mcg Epoetin Sloan [address] UNIT/ML inj 7,600 Units 7,600 Units, Intravenous, [...] Directives occurred with: Patient Care Teams Public Health Social Worker Relationship Specialty Start Date End Date Tomer Garner MD [address] [place] [address] PCP - General 09/19/02 documented as of this encounter
--- OUTSIDE RECORDS SUMMARY | 2024-03-17 14:37 | External Medical Summary | Summary of Care ---
Author Name Unknown Organization [facility] Address [address] [place] [address] Phone [phone] Care Team Providers Care Slumber Room Attendant Name Role Phone Tomer Garner MD Primary Care Provider [phone] Encounter Details Date Type Department Care Team (Late st Contact Info) Description 09/29/2023 Orders Only PATIENT PORTAL DO NOT DELETE THIS DEPT USED BY [place] [address] Allergies No known active allergiesdocumented as of this encounter (statuses as of 09/29/2023) Medications Medication Sig Dispensed Refills Start Date End Date Status Metoprolol Succinate ER 100 MG Oral Tablet Extended Release 24 Hour (Toprol XL) Take 1 Tablet (100 mg) by mouth in the morning. 120 Tablet 3 08/01/2022 Active Lovastatin 10 MG Oral TabletIndications: Kidney [...] (Oral) 1981,04/11 Pneumococcal Conjugate Vacci ne, 20-valent ([id number]) 11/17/2022 Seasonal Influenza, PF, 6 M & [...] [address] [place], [place] [address] 10/04/2023 2:30 PM EST Office Visit Rheumatology, [place] [address] [facility] [place] [address] Kori Scott MD [address] [facility] [place] [address] Health Maintenance Due [...] Advance Directives occurred with: Patient Care Teams Slumber Room Attendant Relationship Specialty Start Date End Date Tomer Garner MD [address] [place] [place] [address] PCP - General 09/19/02 documented as of this encounter
--- OUTSIDE RECORDS SUMMARY | 2024-03-17 14:37 | External Medical Summary | Summary of Care ---
Author Name Unknown Organization [facility] Address [address] [place] [address] Phone [phone] Care Team Providers Care Cafeteria Counter Attendant Name Role Phone Tomer Garner MD Primary Care Provider Reason for Visit * Reason Comments Hemodialysis * Episode Based Medications (Routine) - Closed Specialty Diagnoses / Procedures Referred By Contac t Referred To Contact Diagnoses ESRD on peritoneal dialysis (HCC) 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 chronic kidney disease, not on chronic dialysis (HCC) Procedures [place] EPOETIN SLOAN, NON-ESRD [place] EPOETIN SLOAN, 100 UNITS ESRD Yonny Saldivar MD [address] [place] [address] [address] [place] [address] Referral ID Status Reason Start Date Expiration Date Visits Re quested Visits Authorized [id number] Closed 08/22/2023 02/21/2024 999 0 Encounter Details [...] (Oral) 1981,04/11 Pneumococcal Conjugate Vacci ne, 20-valent ([id number]) 11/17/2022 Seasonal Influenza, PF, 6 M & [...] [address] [id number] 10/02/2023 12:30 PM EST Hospital Encounter Interventional Radiology [facility], [facility] 1st Floor [address] [place] [address] 10/04/2023 2:30 PM EST Office Visit Rheumatology, [place] [address] [facility] [place] [address] Kori Scott MD [address] [place] [address] Health Maintenance Due Date Last Done Comments [...] 6:33 AM EST 4 mcg Epoetin [place]loan [address] UNIT/ML inj 7,600 Units 7,600 Units, Intravenous, [...] Advance Directives occurred with: Patient Care Teams Cafeteria Counter Attendant Relationship Specialty Start Date End Date Tomer Garner MD [address] [place] [address] PCP - General 09/19/02 documented as of this encounter
--- OUTSIDE RECORDS SUMMARY | 2024-03-17 14:38 | External Medical Summary | Summary of Care ---
Author Name Unknown Organization [facility] Address [address] [place] [address] Phone [phone] Care Team Providers Care Child Care Team Lead Name Role Phone Tomer Garner MD Primary Care Provider [phone] Encounter Details Date Type Department Care Team (Late st Contact Info) Description 09/27/2023 1:00 PM EST Office Visit Home Dialysis [facility] [address] [place] [address] Mdc, Peritoneal Dialysis [address] [place] [address] ESRD on peritoneal dialysis (HCC)* Allergies No known active allergiesdocumented as of this encounter (statuses as of 09/28/2023) Medications Medication Sig Dispensed Refills Start Date [...] as of this encounter (statuses as of 09/28/2023) Active Problems Problem Noted Date Diagnosed Date [...] as of this encounter (statuses as of 09/28/2023) Resolved Problems Problem Noted Date Diagnosed Date Resolved Date Dyslipidemia, goal to be determined 08/27/2009 11/21/2013 Overview: Per Lipid Taxonomy. PURE HYPERCHOLESTEROLEM 04/25/200208/11 Overview: Per Lipid Taxonomy. 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 1 Hemoptysis 04/11/1996 08/11/1996 Overview: ICD-10 update of inactive term documented as of this encounter (statuses as of 09/28/2023) Immunizations Name Administration Dates Next Due COVID-19 mRNA, LNP-s, No Pre serve, 2-Dose Series (Moderna) 11/23/2020,10/18/2020 DTP Vaccine 1981,1981,1981 HEP B - Hepatitis B (Dialysis/Immumocomp Pt) 05/02/2023,04/04/2023 MMR - Measles/Mumps/Rubella Vaccine 05/11/1982 OPV - Polio Virus Vaccine (Oral) 1981,04/11 Pneumococcal Conjugate Vacci ne, 20-valent ([id number]) 11/17/2022 Pneumococcal Polysaccharide PPV23 (Pneumovax) 02/03/2004 Seasonal [...] Sign Reading Time Taken Comments Blood Pressure 109/60 09/27/2023 1:25 PM EST Pulse 72 09/27/2023 1:25 PM EST Temperature 36.2 C (97.2 F) 09/27/2023 1:25 PM ES T Respiratory Rate 18 09/27/2023 1:25 PM EST Oxygen Saturation 98% 09/27/2023 1:25 PM EST Inhaled Oxygen Concentration - - Weight 124.8 kg (275 lb 3.2 oz) 09/27/2023 1:25 PM EST Height - - Body Mass Index 39.49 08/21/2023 1:26 PM EST documented in this [...] Progress Notes * Sophia Hernandez RN - 09/27/2023 1:40 PM EST Images from the original note were not included. Peritoneal dialysis monthly visit Labs and meds reviewed copy given to patient Reviewed patient's diet and he states that they understand dietary restrictions and related lab results: yes fluid restriction reviewed Is the Hepatitis B Vaccine due today? no Anemia Management Risks/ benefits of Epoetin therapy were addressed with the patient this month. Yes All questions were answered. New or recurrent malignancy? none reported Adjusted Procrit: YES - dose held hgb 12.2 Pain w/exchanges no Patient brought records from home yes Home record scanned into nursing notes? Yes Blood pressure's at home 116/69 Verified Transfer Set connection and reviewed with patient: Yes Exit site clean and dry, no redness, pain or drainage Signs and symptoms of exit site infection Dicussed, aware to watch for drainage, pain or redness and if any to call the unit. Reviewed exit site care, cleaning, anchoring of catheter, observing for signs or symptoms of infection, and use of dressing over site. Pt is not diabetic Signs and symptoms of peritonitis dicussed. Aware to watch for cloudy fluid, if any, to call unit immediately. If having stomach pain and or fever, aware to do manual exchange checking for cloudy fluid. Routine, Qty-1 Number Of Cycles: 5 Total Treatment Time (hr): 10 Dextrose Concentration (g/100 mL): 2.5 Exchange Volume (L): 2.5 Last Fill : No Mid Day Exchange: No Tidal Volume (%): None Estimated Dry Weight (kg): 122.5 kg average nightly UF 1933 ml Last [facility] TBD Kt/V TBD Transplant status active Reviewed process for ordering monthly dialysis supplies using the calendar provided: yes Reviewed contact phone numbers for the Peritoneal Dialysis supply company as well as the Dialysis clinic and the on-call nurse via the hospital power ballast machine operator: yes Questions start renal vitamin, hold cell cept, hold retacrit. Continue fluid restriction. Dry wt elise changed to 124 kg documented in this encounter Plan of Treatment Upcoming Encounters Date Type Department Care Team (Late st Contact Info) Description 10/04/2023 2:30 PM EST Office Visit Rheumatology, [place] [address] [place] [address] Kori Scott MD [address] [place], [place] [address] Health Maintenance Due Date Last Done Comments [...] Advance Directives occurred with: Patient Care Teams Child Care Team Lead Relationship Specialty Start Date End Date Tomer Garner MD [address] [place] [address] PCP - General 09/19/02 documented as of this encounter
--- OUTSIDE RECORDS SUMMARY | 2024-03-17 14:38 | External Medical Summary | Summary of Care ---
Author Name Unknown Organization [facility] Address [address] [place] [address] Phone [phone] Care Team Providers Care Superintendent Drilling And Production Name Role Phone Tomer Garner MD Primary Care Provider Reason for Visit * Reason Comments Hemodialysis * Episode Based Medications (Routine) - Closed Specialty Diagnoses / Procedures Referred By Contac t Referred To Contact Diagnoses ESRD on peritoneal dialysis (HCC) 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 chronic kidney disease, not on chronic dialysis (HCC) Procedures [place] EPOETIN SLOAN, NON-ESRD [place] EPOETIN SLOAN, 100 UNITS ESRD Yonny Saldivar MD [address] [place] [address] [address] [place] [address] Referral ID Status Reason Start Date Expiration Date Visits Re quested Visits Authorized [id number] Closed 08/22/2023 02/21/2024 999 0 Encounter Details Date Type Department Care Team (Late st Contact Info) Description 09/09/2023 5:30 AM EST Treatment Hemodialysis [facility] [...] (Oral) 1981,04/11 Pneumococcal Conjugate Vacci ne, 20-valent ([id number]) 11/17/2022 Seasonal Influenza, PF, 6 M & [...] Sign Reading Time Taken Comments Blood Pressure 112/83 09/09/2023 9:43 AM EST Pulse 85 09/09/2023 9:45 AM EST Temperature 36.8 C (98.2 F) 09/09/2023 9:45 AM ES T Respiratory Rate 18 09/09/2023 9:45 AM EST Oxygen Saturation - - [...] [address] [place] [address] 10/04/2023 2:30 PM EST Office Visit Rheumatology, [place] [address] [address] Kori Scott MD [address] [address] Health Maintenance Due Date Last Done Comments [...] 4 mcg 4 mcg, Intravenous, ONCE, On 09/09/23 at 0645, For 1 dose Given 09/09/2023 6:38 AM EST 4 mcg Epoetin Sloan [address] UNIT/ML inj 7,600 Units 7,600 Units, Intravenous, ONCE, On 09/09/23 at 0645, For 1 dose Given 09/09/2023 6:38 AM EST 7,600 Units hEParin 1,000 unit/mL infusion for dialysis 500 Units/hr (0.5 mL/hr), Hemodialysis, CONTINUOUS, Starting on 09/09/23 at 0645, Until 12/30/23 at 1424, Maintenance: Stop 1 hour before dialysis end in AVF/AVG. Continue through dialysis in CVC. The total delivered dose is approximately 2,500 to 5,000 units, based on weight and treatment duration assumptions Start Infusion 09/09/2023 5:42 AM EST 500 Units/hr 0.5 mL/hr hEParin 1000 UNIT/ML inj 2,000 Units 2,000 Units, Intravenous, ONCE, On 09/09/23 at 0645, For 1 dose, Loading dose Given 09/09/2023 5:42 AM EST 2,000 Units sodium citrate 4% (Anticoagulant Sodium Citrate) inj 2.5 mL 2.5 mL, Dialysis catheter, ONCE, On 09/09/23 at 0645, For 1 dose, ARTERIAL For use only to lock dialysis catheter after dialysis Given 09/09/2023 9:42 AM EST 2.5 mL sodium citrate 4% (Anticoagulant Sodium Citrate) inj 2.5 mL 2.5 mL, Dialysis catheter, ONCE, On 09/09/23 at 0645, For 1 dose, VENOUS For use only to lock dialysis catheter after dialysis Given 09/09/2023 9:42 AM EST 2.5 mL documented in this [...] Advance Directives occurred with: Patient Care Teams Superintendent Drilling And Production Relationship Specialty Start Date End Date Tomer Garner MD [address] [place] [address] PCP - General 09/19/02 documented as of this encounter
--- OUTSIDE RECORDS SUMMARY | 2024-03-17 14:38 | External Medical Summary | Summary of Care ---
Author Name Unknown Organization [facility] Address [address] [facility] [place] [address] Phone [phone] Care Team Providers Care C D Area Supervisor Name Role Phone Tomer Garner MD Primary Care Provider Encounter Details Date Type Department Care Team (Late st Contact Info) Description 09/22/2023 8:00 AM EST Nurse Only Home Dialysis [address] [place] [address] Nurse, Lance Lopez [address] [place] [address] Allergies No known active allergiesdocumented as of this encounter (statuses as of 09/25/2023) Medications Medication Sig Dispensed Refills Start Date [...] as of this encounter (statuses as of 09/25/2023) Active Problems Problem Noted Date Diagnosed Date [...] as of this encounter (statuses as of 09/25/2023) Resolved Problems Problem Noted Date Diagnosed Date Resolved Date Dyslipidemia, goal to be determined 08/27/2009 11/21/2013 Overview: Per Lipid Taxonomy. PURE HYPERCHOLESTEROLEM 04/25/200208/11 Overview: Per Lipid Taxonomy. 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 1 Hemoptysis 04/11/1996 08/11/1996 Overview: ICD-10 update of inactive term documented as of this encounter (statuses as of 09/25/2023) Immunizations Name Administration Dates Next Due COVID-19 mRNA, LNP-s, No Pre serve, 2-Dose Series (Moderna) 11/23/2020,10/18/2020 DTP Vaccine 1981,1981,1981 HEP B - Hepatitis B (Dialysis/Immumocomp Pt) 05/02/2023,04/04/2023 MMR - Measles/Mumps/Rubella Vaccine 05/11/1982 OPV - Polio Virus Vaccine (Oral) 1981,04/11 Pneumococcal Conjugate Vacci ne, 20-valent ([id number]) 11/17/2022 Seasonal Influenza, PF, 6 M & [...] Sign Reading Time Taken Comments Blood Pressure 137/76 09/22/2023 3:32 PM EST Pulse 75 09/22/2023 3:32 PM EST Temperature 36.1 C (96.9 F) 09/22/2023 3:32 PM ES T Respiratory Rate 18 09/22/2023 3:32 PM EST Oxygen Saturation - - Inhaled [...] Progress Notes * Sophia Hernandez RN - 09/22/2023 2:56 PM EST PT arrived for peritoneal dialysis initial training day #4. PT vitals obtained and entered. PT connected to CCPD machine per orders. PT exit site assesses and is clean and dry with no redness, pain or drainage. PT education documented in education tab. PT demonstrated to PD nurse all education using teach back. documented in this encounter Plan of Treatment Upcoming Encounters Date Type Department Care Team (Late st Contact Info) Description 09/27/2023 1:00 PM EST Office Visit Home Dialysis [address] [address] [place] [address] Mdc, Peritoneal Dialysis [address] [place] [address] 10/04/2023 2:30 PM EST Office Visit Rheumatology, [place] [address] [place] [address] Kori Scott MD [address], [place] [id number] Scheduled Orders Name Type Priority Associated Diagnoses Orde r Schedule CCPD Procedures Routine ESRD on peritoneal dialysis (HCC) Ordered: 09/22/2023 Health Maintenance Due Date Last Done Comments [...] disease) (HCC)- Primary End stage renal disease ESRD on peritoneal dialysis (HCC) End stage [...] Advance Directives occurred with: Patient Care Teams C D Area Supervisor Relationship Specialty Start Date End Date Tomer Garner MD [address] [facility] [place] [address] PCP - General 09/19/02 documented as of this encounter
--- OUTSIDE RECORDS SUMMARY | 2024-03-17 14:38 | External Medical Summary | Summary of Care ---
Author Name Unknown Organization [facility] Address [address] [place] [address] Phone [phone] Care Team Providers Care Make Up Girl Name Role Phone Tomer Garner MD Primary Care Provider Reason for Visit * Reason Onset Date Comments Medication Refill 09/28/2023 Encounter Details Date Type Department Care Team (Late st Contact Info) Description 09/28/2023 [place]ill [facility] [place] [address] [place] [address] Akosua Lopez MD [address] [place] [address] Allergies No known active allergiesdocumented [...] (Oral) 1981,04/11 Pneumococcal Conjugate Vacci ne, 20-valent ([id number]) 11/17/2022 Seasonal Influenza, PF, 6 M & [...] [address], [place] [address] 10/04/2023 2:30 PM EST Office Visit Rheumatology, [place] [address] [facility] [place], [place] [phone] Kori Scott MD [address] [place] [address] Health Maintenance Due Date Last Done Comments [...] Advance Directives occurred with: Patient Care Teams Make Up Girl Relationship Specialty Start Date End Date Tomer Garner MD [address] [place] [address] PCP - General 09/19/02 documented as of this encounter
--- OUTSIDE RECORDS SUMMARY | 2024-03-17 14:38 | External Medical Summary | Summary of Care ---
Author Name Unknown Organization [facility] Address [address] [place] [address] Phone [phone] Care Team Providers Care Drum Saw Operator Name Role Phone Tomer Garner MD Primary Care Provider [phone] Encounter Details Date Type Department Care Team (Late st Contact Info) Description 09/27/2023 1:00 PM EST Office Visit Home Dialysis [facility] [place] [address] [place] [address] Mdc, Peritoneal Dialysis [address] [place] [address] ESRD on peritoneal dialysis (HCC)* [...] (Oral) 1980,04/11 Pneumococcal Conjugate Vacci ne, 20-valent ([id number]) 11/17/2022 Pneumococcal Polysaccharide PPV23 (Pneumovax) 02/03/2004 Seasonal [...] and the on-call nurse via the hospital acid wash operator: yes Questions start renal vitamin, hold cell cept, hold retacrit. Continue fluid restriction. Dry wt elise changed to 124 kg documented in this encounter Plan of Treatment Upcoming Encounters Date Type Department Care Team (Late st Contact Info) Description 10/04/2023 2:30 PM EST Office Visit Rheumatology, [place] [address] [place] [address] Kori Scott MD [address] [place], [place] [id number] Health Maintenance Due Date Last Done Comments [...] Advance Directives occurred with: Patient Care Teams Drum Saw Operator Relationship Specialty Start Date End Date Tomer Garner MD [address] [place] [address] PCP - General 09/19/02 documented as of this encounter
--- OUTSIDE RECORDS SUMMARY | 2024-03-17 14:38 | External Medical Summary | Summary of Care ---
Author Name Unknown Organization [facility] Address [address] [place] [address] Phone [phone] Care Team Providers Care Manager Commission Name Role Phone Tomer Garner MD Primary Care Provider [phone] Reason for Visit * Reason Comments Hemodialysis * Episode Based Medications (Routine) - Closed Specialty Diagnoses / Procedures Referred By Contac t Referred To Contact Diagnoses ESRD on peritoneal dialysis (HCC) 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 chronic kidney disease, not on chronic dialysis (HCC) Procedures [place] EPOETIN SLOAN, NON-ESRD [place] EPOETIN SLOAN, 100 UNITS ESRD Yonny Saldivar MD [address] [place] [address] [address] [address] [place] [address] Referral ID Status Reason Start Date Expiration Date Visits Re quested Visits Authorized [id number] Closed 08/22/2023 02/21/2024 999 0 Encounter Details [...] (Oral) 1980,04/11 Pneumococcal Conjugate Vacci ne, 20-valent ([id number]) 11/17/2022 Seasonal Influenza, PF, 6 M & [...] [address] [place] [address] 10/04/2023 2:30 PM EST Office Visit Rheumatology, [place] [address] [address] [address] Kori Scott MD [address] [address] Health Maintenance Due Date Last Done Comments [...] 6:38 AM EST 4 mcg Epoetin Sloan [address] UNIT/ML inj 7,600 Units 7,600 Units, Intravenous, [...] Directives occurred with: Patient Care Teams Manager Commission Relationship Specialty Start Date End Date Tomer Garner MD [address] [place] [address] PCP - General 09/19/02 documented as of this encounter
--- OUTSIDE RECORDS SUMMARY | 2024-03-17 14:38 | External Medical Summary | Summary of Care ---
Author Name Unknown Organization [facility] Address [address] [place] [address] Phone [phone] Care Team Providers Care Laser Technician Name Role Phone Tomer Garner MD Primary Care Provider Reason for Visit * Episode Based Medications (Routine) - Authorized Specialty Diagnoses / Procedures Referred By Conternestina t Referred To Contact Diagnoses ESRD on peritoneal dialysis (HCC) Anemia in stage 5 chronic kidney disease, not on chronic dialysis Procedures [place] EPOETIN SLOAN, NON-ESRD [place] EPOETIN SLOAN, 100 UNITS ESRD Yonny Saldivar MD [address] [place] [address] [address] [facility] [place] [address] Referral ID Status Reason Start Date Expiration Date V isits Requested Visits Authorized [id number] Authorized 08/22/2023 02/21/2024 999 0 Encounter Details Date Type Department Care Team (Late st Contact Info) Description 07/13/2023 5:30 AM EDT Treatment Hemodialysis [facility] [address] [place] [address] ESRD (end stage renal disease) (HCC)*; Anemia of chronic renal failure, stage 5 ; Anemia in chronic kidney disease, on chronic dialysis (HCC); Anemia in chronic renal disease; Anemia in stage 5 chronic kidney disease, not on chronic dialysis Allergies No known active allergiesdocumented as of this encounter (statuses as of 09/24/2023) Medications Medication Sig Dispensed Refills Start Date End Date Status Metoprolol Succinate ER 100 MG Oral Tablet Extended Release 24 Hour (Toprol XL) Take 1 Tablet (100 mg) by mouth in the morning. 120 Tablet 3 08/01/2022 Active Lovastatin 10 MG Oral TabletIndication s:Kidney replaced [...] 11/17/2022 Active cycloSPORINE Modified 25 MG Oral CapsuleIndicatio ns:Kidney replaced by transplant Take 2 capsules in the morning and 2 capsules in the evening 360 Capsule 3 12/02/2022 Active Folic Acid 1 MG Oral Tablet Take 1 Tablet by mouth in the morning. 90 Tablet 1 12/01/2022 Active Febuxostat 80 MG Oral Tablet (Uloric)Indicati ons:Chronic [...] the morning. 60 Tablet 6 06/07/2023 Active metOLazone 5 MG Oral Tablet (Zaroxolyn) Take 1 Tablet by mouth in the morning. 30 Tablet 2 04/11/2023 08/08/20 Discontinued(Med ication List Clean Up) Torsemide 100 MG Oral Tablet (Demadex) Take 1 Tablet by mouth in the morning and 1 Tablet in the evening. (not beyond 4pm). 180 Tablet 1 04/13/2023 08/08/20 Discontinued(Med ication List Clean Up) oxyCODONE HCl 5 MG Oral Tablet (Oxy IR) Take 1 Tablet by mouth every 6 hours as needed for Pain, Severe. 10 Tablet 0 05/22/2023 08/21/20 Discontinued Calcium Acetate (Phos Binder) 667 MG Oral Capsule (Phoslo) Take 3 Capsules by mouth with meals and snacks. 900 Capsule 3 06/29/2023 07/18/20 Discontinued(Ref ill) documented as of this encounter (statuses as of 09/24/2023) Active Problems Problem Noted Date Diagnosed Date [...] as of this encounter (statuses as of 09/24/2023) Resolved Problems Problem Noted Date Diagnosed Date Resolved Date Dyslipidemia, goal to be determined 08/27/2009 11/21/2013 Overview: Per Lipid Taxonomy. PURE HYPERCHOLESTEROLEM 04/25/200208/11 Overview: Per Lipid Taxonomy. 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 1 Hemoptysis 04/11/1996 08/11/1996 Overview: ICD-10 update of inactive term documented as of this encounter (statuses as of 09/24/2023) Immunizations Name Administration Dates Next Due COVID-19 mRNA, LNP-s, No Pre serve, 2-Dose Series (Moderna) 11/23/2020,10/18/2020 DTP Vaccine 1981,1981,1981 HEP B - Hepatitis B (Dialysis/Immumocomp Pt) 05/02/2023,04/04/2023 MMR - Measles/Mumps/Rubella Vaccine 05/11/1982 OPV - Polio Virus Vaccine (Oral) 1981,04/11 Pneumococcal Conjugate Vacci ne, 20-valent ([id number]) 11/17/2022 Seasonal Influenza, PF, 6 M & [...] Sign Reading Time Taken Comments Blood Pressure 132/63 07/13/2023 9:47 AM EDT Pulse 78 07/13/2023 9:47 AM EDT Temperature 37.7 C (99.9 F) 07/13/2023 9:47 AM ED T Respiratory Rate 18 07/13/2023 9:47 AM EDT Oxygen Saturation - - Inhaled [...] Care Team (Late st Contact Info) Description 09/26/2023 5:30 AM EST Treatment Hemodialysis [facility] [address] [place] [address] 09/28/2023 5:30 AM EST Treatment Hemodialysis [facility] [address] [place] [address] 09/30/2023 5:30 AM EST Treatment Hemodialysis [facility] [address] [place] [address] 10/03/2023 5:30 AM EST Treatment Hemodialysis [facility] [address] [place] [address] 10/04/2023 2:30 PM EST Office Visit [facility] [place] [address] [place] [facility] [place] [address] Kori Scott MD [address] [place] [facility] [place] [address] 10/05/2023 5:30 AM EST Treatment Hemodialysis [facility] [address] [id number] 10/07/2023 5:30 AM EST Treatment Hemodialysis [facility] [address] [id number] 10/10/2023 5:30 AM EST Treatment Hemodialysis [facility] [address] [place] [address] Health Maintenance Due Date Last Done Comments [...] Anemia of chronic renal failure, stage 5 Anemia in chronic kidney disease, on chronic dialysis (HCC) Anemia in stage 5 chronic kidney disease, not on chronic dialysis documented in this encounter Administered Medications Inactive Administered Medications - up to 3 most recent administrations Medication Order MAR Action Action Date Dose Rate Site Doxercalciferol (Hectorol) 2 MCG/ML inj 4 mcg 4 mcg, Intravenous, ONCE, On Marylu 07/13/23 at 0700, For 1 dose Given 07/13/2023 6:30 AM EDT 4 mcg Epoetin Sloan [address] UNIT/ML inj 9,000 Units 9,000 Units, Intravenous, ONCE, On Marylu 07/13/23 at 0700, For 1 dose Given 07/13/2023 6:31 AM EDT 9,000 Units hEParin 1,000 unit/mL infusion for dialysis 500 Units/hr (0.5 mL/hr), Hemodialysis, CONTINUOUS, Starting on Marylu 07/13/23 at 0700, Until Marylu 07/13/23 at 1401, Maintenance: Stop 1 hour before dialysis end in AVF/AVG. Continue through dialysis in CVC. The total delivered dose is approximately 2,500 to 5,000 units, based on weight and treatment duration assumptions New Bag 07/13/2023 6:27 AM EDT 500 Units/hr 0.5 mL/hr hEParin 1000 UNIT/ML inj 2,000 Units 2,000 Units, Intravenous, ONCE, On Marylu 07/13/23 at 0700, For 1 dose, Loading dose Given 07/13/2023 6:27 AM EDT 2,000 Units sodium citrate 4% (Anticoagulant Sodium Citrate) inj 2.5 mL 2.5 mL, Dialysis catheter, ONCE, On Marylu 07/13/23 at 0700, For 1 dose, ARTERIAL For use only to lock dialysis catheter after dialysis Given 07/13/2023 6:27 AM EDT 2.5 mL sodium citrate 4% (Anticoagulant Sodium Citrate) inj 2.5 mL 2.5 mL, Dialysis catheter, ONCE, On Marylu 07/13/23 at 0700, For 1 dose, VENOUS For use only to lock dialysis catheter after dialysis Given 07/13/2023 6:27 AM EDT 2.5 mL documented in this [...] Directives occurred with: Patient Care Teams Laser Technician Relationship Specialty Start Date End Date Tomer Garner MD [address] [facility] [place] [address] PCP - General 09/19/02 documented as of this encounter
--- OUTSIDE RECORDS SUMMARY | 2024-03-17 14:38 | External Medical Summary | Summary of Care ---
Author Name Unknown Organization [facility] Address [address] [place] [address] Phone [phone] Care Team Providers Care Line Person Name Role Phone Tomer Garner MD Primary Care Provider [phone] Reason for Visit * Episode Based Medications (Routine) - Authorized Specialty Diagnoses / Procedures Referred By Conternestina t Referred To Contact Diagnoses ESRD on peritoneal dialysis (HCC) Anemia in stage 5 chronic kidney disease, not on chronic dialysis Procedures [place] EPOETIN SLOAN, NON-ESRD [place] EPOETIN SLOAN, 100 UNITS ESRD Yonny Saldivar MD [address] [place] [address] [address] [facility] [place] [address] Referral ID Status Reason Start Date Expiration Date V isits Requested Visits Authorized [id number] Authorized 08/22/2023 02/21/2024 999 0 Encounter Details [...] (Oral) 1981,04/11 Pneumococcal Conjugate Vacci ne, 20-valent ([id number]) 11/17/2022 Seasonal Influenza, PF, 6 M & [...] [facility] [address] [place] [address] 09/28/2023 5:30 AM EST Treatment Hemodialysis [facility] [address] [place] [address] 09/30/2023 5:30 AM EST Treatment Hemodialysis [facility] [address] [place] [address] 10/03/2023 5:30 AM EST Treatment Hemodialysis [facility] [address] [place] [address] 10/04/2023 2:30 PM EST Office Visit [place] [address] [place] [facility] [place] [address] Kori Scott MD [address] [place] [facility] [place] [address] 10/05/2023 5:30 AM EST Treatment Hemodialysis [facility] [address] [id number] 10/07/2023 5:30 AM EST Treatment Hemodialysis [facility] [address] [id number] 10/10/2023 5:30 AM EST Treatment Hemodialysis [facility] [address] [place] [address] Health Maintenance Due Date Last Done Comments [...] 6:30 AM EDT 4 mcg Epoetin Sloan [address] UNIT/ML inj 9,000 Units 9,000 Units, Intravenous, [...] Advance Directives occurred with: Patient Care Teams Line Person Relationship Specialty Start Date End Date Tomer Garner MD [address] [facility] [place] [address] PCP - General 09/19/02 documented as of this encounter
--- OUTSIDE RECORDS SUMMARY | 2024-03-17 14:38 | External Medical Summary | Summary of Care ---
Author Name Unknown Organization [facility] Address [address] [place] [address] Phone [phone] Care Team Providers Care Sales Order Coordinator Name Role Phone Tomer Garner MD Primary Care Provider Reason for Visit * Reason Comments Hemodialysis * Episode Based Medications (Routine) - Closed Specialty Diagnoses / Procedures Referred By Contac t Referred To Contact Diagnoses ESRD on peritoneal dialysis (HCC) Anemia in stage 5 chronic kidney disease, not on chronic dialysis Procedures [place] EPOETIN SLOAN, NON-ESRD [place] EPOETIN SLOAN, 100 UNITS ESRD Yonny Saldivar MD [address] [place] [address] [address] [place] [address] Referral ID Status Reason Start Date Expiration Date Visits Re quested Visits Authorized [id number] Closed 08/22/2023 02/21/2024 999 0 Encounter Details [...] (Oral) 1980,04/11 Pneumococcal Conjugate Vacci ne, 20-valent ([id number]) 11/17/2022 Seasonal Influenza, PF, 6 M & [...] 10/04/2023 2:30 PM EST Office Visit Rheumatology, [place] [address] [place] [address] Kori Scott MD [address] [place] [address] Health Maintenance Due Date Last Done Comments [...] 6:38 AM EST 4 mcg Epoetin Sloan [address] UNIT/ML inj 7,600 Units 7,600 Units, Intravenous, ONCE, On 09/09/23 at 0645, For 1 dose Given 09/09/2023 6:38 AM EST 7,600 Units hEParin 1,000 unit/mL infusion for dialysis 500 Units/hr (0.5 mL/hr), Hemodialysis, CONTINUOUS, Starting on 09/09/23 at 0645, Until 09/09/23 at 1424, Maintenance: Stop 1 hour before [...] Advance Directives occurred with: Patient Care Teams Sales Order Coordinator Relationship Specialty Start Date End Date Tomer Garner MD [address] [place] [address] PCP - General 09/19/02 documented as of this encounter
--- OUTSIDE RECORDS SUMMARY | 2024-03-17 14:38 | External Medical Summary | Summary of Care ---
Author Name Unknown Organization [facility] Address [address] [place] [address] Phone [phone] Care Team Providers Care Claim Manager Name Role Phone Tomer Garner MD Primary Care Provider [phone] Reason for Visit * Episode Based Medications (Routine) - Authorized Specialty Diagnoses / Procedures Referred By Conternestina t Referred To Contact Diagnoses ESRD on peritoneal dialysis (HCC) Anemia in stage 5 chronic kidney disease, not on chronic dialysis Procedures [place] EPOETIN SLOAN, NON-ESRD [place] EPOETIN SLOAN, 100 UNITS ESRD Yonny Saldivar MD [address] [place] [address] [address] [facility] [address] [place] [address] Referral ID Status Reason Start Date Expiration Date V isits Requested Visits Authorized [id number] Authorized 08/22/2023 02/21/2024 999 0 Encounter Details [...] (Oral) 1980,04/11 Pneumococcal Conjugate Vacci ne, 20-valent ([id number]) 11/17/2022 Seasonal Influenza, PF, 6 M & [...] [facility] [address] [place] [address] 09/28/2023 5:30 AM EST Treatment Hemodialysis [facility] [address] [place] [address] 09/30/2023 5:30 AM EST Treatment Hemodialysis [facility] [address] [place] [address] 10/03/2023 5:30 AM EST Treatment Hemodialysis [facility] [address] [place] [address] 10/04/2023 2:30 PM EST Office Visit [place] [address] [facility] [place] [address] Kori Scott MD [address] [place] [facility] [place] [address] 10/05/2023 5:30 AM EST Treatment Hemodialysis [facility] [address] [id number] 10/07/2023 5:30 AM EST Treatment Hemodialysis [facility] [address] [id number] 10/10/2023 5:30 AM EST Treatment Hemodialysis [facility] [address] [place] [address] Health Maintenance Due Date Last Done Comments [...] 6:30 AM EDT 4 mcg Epoetin Sloan [address] UNIT/ML inj 9,000 Units 9,000 Units, Intravenous, [...] Advance Directives occurred with: Patient Care Teams Claim Manager Relationship Specialty Start Date End Date Tomer Garner MD [address] [facility] [place] [address] PCP - General 09/19/02 documented as of this encounter
--- OUTSIDE RECORDS SUMMARY | 2024-03-17 14:38 | External Medical Summary | Summary of Care ---
Author Name Unknown Organization [facility] Address [address] [place] [address] Phone [phone] Care Team Providers Care Shipper Receiver Name Role Phone Tomer Garner MD Primary Care Provider [phone] Encounter Details Date Type Department Care Team (Late st Contact Info) Description 09/27/2023 1:00 PM EST Office Visit Home Dialysis [facility] [address] [place] [address] Mdc, Peritoneal Dialysis [address] [place] [address] ESRD on peritoneal dialysis (HCC)* [...] (Oral) 1981,04/11 Pneumococcal Conjugate Vacci ne, 20-valent ([id number]) 11/17/2022 Pneumococcal Polysaccharide PPV23 (Pneumovax) 02/03/2004 Seasonal [...] and the on-call nurse via the hospital slice plug cutter operator helper: yes Questions start renal vitamin, hold cell cept, hold retacrit. Continue fluid restriction. Dry wt elise changed to 124 kg documented in this encounter Plan of Treatment Upcoming Encounters Date Type Department Care Team (Late st Contact Info) Description 10/04/2023 2:30 PM EST Office Visit Rheumatology, [facility] [address] [place] [address] Kori Scott MD [address] [place], [place] [id number] Health Maintenance Due Date Last Done Comments [...] Advance Directives occurred with: Patient Care Teams Shipper Receiver Relationship Specialty Start Date End Date Tomer Garner MD [address] [place] [address] PCP - General 09/19/02 documented as of this encounter
--- OUTSIDE RECORDS SUMMARY | 2024-03-17 14:38 | External Medical Summary | Summary of Care ---
Author Name Unknown Organization [facility] Address [address] [place] [address] Phone [phone] Care Team Providers Care University Partnership Rep Name Role Phone Tomer Garner MD Primary Care Provider [phone] Reason for Visit * Episode Based Medications (Routine) - Authorized Specialty Diagnoses / Procedures Referred By Conternestina t Referred To Contact Diagnoses ESRD on peritoneal dialysis (HCC) Anemia in stage 5 chronic kidney disease, not on chronic dialysis Procedures ID EPOETIN SLOAN, NON-ESRD ID EPOETIN SLOAN, 100 UNITS ESRD Yonny Saldivar MD [address] [place] [address] [address] [place] [address] Referral ID Status Reason Start Date Expiration Date V isits Requested Visits Authorized [id number] Authorized 08/22/2023 02/21/2024 999 0 Encounter Details [...] (Oral) 1981,04/11 Pneumococcal Conjugate Vacci ne, 20-valent ([id number]) 11/17/2022 Seasonal Influenza, PF, 6 M & [...] [facility] [address] [place] [address] 09/28/2023 5:30 AM EST Treatment Hemodialysis [facility] [address] [place] [address] 09/30/2023 5:30 AM EST Treatment Hemodialysis [facility] [address] [place] [id number] 10/03/2023 5:30 AM EST Treatment Hemodialysis [facility] [address] [place] [address] 10/04/2023 2:30 PM EST Office Visit [facility] [address] [place] [address] Kori Scott MD [address] [place] [facility] [place] [address] 10/05/2023 5:30 AM EST Treatment Hemodialysis [facility] [address] [id number] 10/07/2023 5:30 AM EST Treatment Hemodialysis [facility] [address] [id number] 10/10/2023 5:30 AM EST Treatment Hemodialysis [facility] [address] [place] [address] Health Maintenance Due Date Last Done Comments [...] 6:30 AM EDT 4 mcg Epoetin Sloan [address] UNIT/ML inj 9,000 Units 9,000 Units, Intravenous, [...] Advance Directives occurred with: Patient Care Teams University Partnership Rep Relationship Specialty Start Date End Date Tomer Garner MD [address] [facility] [place] [address] PCP - General 09/19/02 documented as of this encounter
--- OUTSIDE RECORDS SUMMARY | 2024-03-17 14:38 | External Medical Summary | Summary of Care ---
Author Name Unknown Organization [facility] Address [address] [place] [address] Phone [phone] Care Team Providers Care Dialysis Equipment Technician Name Role Phone Tomer Garner MD Primary Care Provider [phone] Reason for Visit * Reason Comments Hemodialysis * Episode Based Medications (Routine) - Closed Specialty Diagnoses / Procedures Referred By Contac t Referred To Contact Diagnoses ESRD on peritoneal dialysis (HCC) Anemia in stage 5 chronic kidney disease, not on chronic dialysis (HCC) Procedures [place] EPOETIN SLOAN, NON-ESRD VT EPOETIN SLOAN, 100 UNITS ESRD Yonny Saldivar MD [address] [place] [address] [address] [facility] [address] [place] [address] Referral ID Status Reason Start Date Expiration Date Visits Re quested Visits Authorized [id number] Closed 08/22/2023 02/21/2024 999 0 Encounter Details [...] (Oral) 1980,04/11 Pneumococcal Conjugate Vacci ne, 20-valent ([id number]) 11/17/2022 Seasonal Influenza, PF, 6 M & [...] [facility] [address] [place] [address] 10/04/2023 2:30 PM EST Office Visit Rheumatology, [facility] [address] [address] Kori Scott MD [address] [address] Health Maintenance Due Date Last Done Comments [...] 6:38 AM EST 4 mcg Epoetin Sloan [address]383 UNIT/ML inj 7,600 Units 7,600 Units, Intravenous, [...] Advance Directives occurred with: Patient Care Teams Dialysis Equipment Technician Relationship Specialty Start Date End Date Tomer Garner MD [address] [place] [address] PCP - General 09/19/02 documented as of this encounter
--- OUTSIDE RECORDS SUMMARY | 2024-03-17 14:39 | External Medical Summary | Summary of Care ---
Author Name Unknown Organization [facility] Address [address] [place] [address] Phone [phone] Care Team Providers Care Manager Hotel Name Role Phone Tomer Garner MD Primary Care Provider [phone] Reason for Visit * Episode Based Medications (Routine) - Authorized Specialty Diagnoses / Procedures Referred By Conternestina t Referred To Contact Diagnoses ESRD on peritoneal dialysis (HCC) Anemia in stage 5 chronic kidney disease, not on chronic dialysis Procedures ID EPOETIN SLOAN, NON-ESRD ID EPOETIN SLOAN, 100 UNITS ESRD Yonny Saldivar MD [address] [place] [address] [address] [facility] [address] [place] [address] [address] Referral ID Status Reason Start Date Expiration Date V isits Requested Visits Authorized [id number] Authorized 08/22/2023 02/21/2024 999 0 Encounter Details Date Type Department Care Team (Late st Contact Info) Description 07/18/2023 5:30 AM EST Treatment Hemodialysis [facility] [...] and snacks. 900 Capsule 3 07/18/2023 Active metOLazone 5 MG Oral Tablet (Zaroxolyn) [...] (Oral) 1981,04/11 Pneumococcal Conjugate Vacci ne, 20-valent ([id number]) 11/17/2022 Pneumococcal Polysaccharide PPV23 (Pneumovax) 02/03/2004 Seasonal [...] Sign Reading Time Taken Comments Blood Pressure 121/81 07/18/2023 9:44 AM EST Pulse 78 07/18/2023 9:44 AM EST Temperature 36.8 C (98.2 F) 07/18/2023 9:42 AM ES T Respiratory Rate 18 07/18/2023 9:42 AM EST Oxygen Saturation - - [...] Notes * Dialysis Monthly Comprehensive Note - Nilsa Richard MD - 07/18/2023 5:30 AM EST DIALYSIS MONTHLY COMPREHENSIVE Name: Chandan Donato Summary: Patient was seen and evaluated Comments: Well tolerating HD, no active complaints Adequacy: Lab Results Component Value Date KT/V - [facility] 1.50 06/27/2023 Dialysis Prescription: Hemodialysis Treatment - OP 3 times a week Dialyzer: Optiflux 250 Duration of Treatment (hrs): 4 Dialysate: K+Ca (mEq/L): 2K+ 2.5 Ca Dialysate: Bicarb (mEq/L): 38 Blood Flow Rate (mL/min): 400 Dialysate Flow Rate (mL/min): 700 Dialysate Temperature (Centigrade): 36 Dialysate: Sodium (mEq/L): 138 Sodium Modeling Profile: N/A Estimated Dry Weight (kg): 122.5 Adequacy target met. BP/ Volume Management: Pre BP Sittin/83 Post BP Sittin/81 Blood pressure controlled and Interdialytic weight gain acceptable Vascular access: Vascular access reviewed and Current access is working well Anemia: Lab Results Component Value Date HGB 7.8 (L) 12/27/1996 HGB - [facility] 10.2 (L) 07/04/2023 HGB - [facility] 13.0 (L) 10/07/2020 FERRITIN 729.8 12/16/1996 FERRITIN - [facility] 967 (H) 06/20/2023 FERRITIN - [facility] 51.7 08/11/2010 TRANSFERRIN SATURATION PERCENT - [facility] 39 06/20/2023 TRANSFERRIN SATURATION PERCENT - [facility] 33 08/11/2010 Anemia reviewed and Anemia targets met JESSIE Meds: Epoetin Sloan 79125 UNIT/ML inj 9,000 Units 9,000 Units, Intravenous, Every visit, ONCE Iron Meds: None Iron administered per protocol Bone Mineral: Current Outpatient Medications Medication Sig Dispense Refill Calcium Acetate (Phos Binder) 667 MG Oral Capsule (Phoslo) Take 3 Capsules by mouth with meals and snacks. 900 Capsule 3 Metoprolol Succinate ER 100 MG Oral Tablet [...] mouth in the morning. 90 Tablet 3 metOLazone 5 MG Oral Tablet (Zaroxolyn) Take 1 Tablet by mouth in the morning. 30 Tablet 2 Torsemide 100 MG Oral Tablet (Demadex) Take 1 Tablet by mouth in the morning and 1 Tablet in the evening. (not beyond 4pm). 180 Tablet 1 Cinacalcet HCl 30 MG Oral Tablet (Sensipar) Take 1 Tablet by mouth in the morning. 90 Tablet 3 oxyCODONE HCl 5 MG Oral Tablet (Oxy IR) Take 1 Tablet by mouth every 6 hours as needed for Pain, Severe. 10 Tablet 0 NIFEdipine ER 30 MG Oral Tablet Extended Release 24 Hour (Adalat CC) Take 1 Tablet by mouth in the morning. 60 Tablet 6 Current Facility-Administered Medications Medication Dose Route Frequency Provider Last Rate Last Admin hEParin 1,000 unit/mL infusion for dialysis 500 Units/hr Hemodialysis Continuous Yonny Saldivar MD 0.5 mL/hr at 07/18/23 0610 500 Units/hr at 07/18/23 0610 Facility-Administered Medications Ordered in Other Visits Medication Dose Route Frequency Provider Last Rate Last Admin hEParin 1,000 unit/mL infusion for dialysis 500 Units/hr Hemodialysis Continuous Yonny Saldivar MD Finish Infusion at 05/16/23 0935 hEParin 1,000 unit/mL infusion for dialysis 500 Units/hr Hemodialysis Continuous Yonny Saldivar MD Finish Infusion at 05/30/23 0950 Lab Results Component Value Date PTH 80.1 (H) 12/23/1996 PTH - [facility] 273 (H) 06/20/2023 PTH - [facility] 361 (H) 12/07/2017 CALCIUM - [facility] 8.2 (L) 06/20/2023 CALCIUM - [facility] 9.6 10/07/2020 CALCIUM PHOSPHORUS PRODUCT - [facility] 68.1 06/20/2023 CALCIUM, IONIZED - [facility] 1.25 10/04/2001 CALCIUM, TOTAL 9.2 12/23/1996 CALCIUM-IONIZED 1.23 12/23/1996 PHOSPHORUS 5.2 (H) 12/27/1996 PHOSPHORUS - [facility] 5.8 (H) 07/04/2023 PHOSPHORUS - [facility] 4.4 10/07/2020 25OH VITAMIN D TOTAL 20 12/07/2017 Bone mineral parameters reviewed, Calcium controlled, Hyperphosphatemia noted, Awaiting new labs this month, and PTH Within range Nutrition: Lab Results Component Value Date ALBUMIN 4.2 12/23/1996 ALBUMIN - [facility] 4.5 06/20/2023 ALBUMIN - [facility] 4.6 10/07/2020 ALBUMIN / CREATININE RATIO, URINE - [facility] 2,057 (H) 10/19/2022 ALBUMIN / CREATININE RATIO, URINE - [facility] 1,125 (H) 10/07/2020 ALBUMIN, RANDOM URINE - [facility] 131.66 10/19/2022 ALBUMIN, RANDOM URINE - [facility] 207.03 10/07/2020 POTASSIUM 5.3 (H) 12/27/1996 POTASSIUM - [facility] 4.7 06/20/2023 POTASSIUM - [facility] 4.0 10/07/2020 POTASSIUM, WHOLE BLOOD - [facility] 4.7 05/22/2023 POTASSIUM-URINE 41 06/28/1996 Lab Results Component Value Date/Time CO2 - [facility] 21 (L) 06/20/2023 05:40 AM CO2 - [facility] 25 10/07/2020 02:34 PM CO2-TOTAL 24.4 12/27/1996 08:57 AM Nutrition reviewed, Electrolytes reviewed, and Electrolyte values acceptable Prescription compliance and Dialysis Frequency: Attends dialysis routinely Exam: Vitals reviewed Cardiovascular: Heart regular Pulmonary: Lungs clear Edema: No Edema Nilsa Richard MD documented in this encounter Plan of Treatment Upcoming Encounters Date Type Department Care Team (Late st Contact Info) Description 09/26/2023 5:30 AM EST Treatment Hemodialysis [facility] [address] [place] [id number] 09/28/2023 5:30 AM EST Treatment Hemodialysis [facility] [address] [place] [id number] 09/30/2023 5:30 AM EST Treatment Hemodialysis [facility] [address] [place] [address] 10/03/2023 5:30 AM EST Treatment Hemodialysis [facility] [address] [place] [address] 10/04/2023 2:30 PM EST Office Visit Rheumatology, [facility] [address] [address] Kori Scott MD [address] [facility] [address] [address] 10/05/2023 5:30 AM EST Treatment Hemodialysis [facility] [address] [id number] 10/07/2023 5:30 AM EST Treatment Hemodialysis [facility] [address] [id number] 10/10/2023 5:30 AM EST Treatment Hemodialysis [facility] [address] [place] [address] Health Maintenance Due Date Last Done [...] 4 mcg 4 mcg, Intravenous, ONCE, On Mon07/18/23 at 0645, For 1 dose Given 07/18/2023 6:10 AM EST 4 mcg Epoetin Sloan 19016 UNIT/ML inj 9,000 Units 9,000 Units, Intravenous, ONCE, On Mon07/18/23 at 0645, For 1 dose Given 07/18/2023 6:10 AM EST 9,000 Units hEParin 1,000 unit/mL infusion for dialysis 500 Units/hr (0.5 mL/hr), Hemodialysis, CONTINUOUS, Starting on Mon07/18/23 at 0645, Until Mon07/18/23 at 1432, Maintenance: Stop 1 hour before dialysis end in AVF/AVG. Continue through dialysis in CVC. The total delivered dose is approximately 2,500 to 5,000 units, based on weight and treatment duration assumptions New Bag 07/18/2023 6:10 AM EST 500 Units/hr 0.5 mL/hr hEParin 1000 UNIT/ML inj 2,000 Units 2,000 Units, Intravenous, ONCE, On Mon07/18/23 at 0645, For 1 dose, Loading dose Given 07/18/2023 6:10 AM EST 2,000 Units sodium citrate 4% (Anticoagulant Sodium Citrate) inj 2.5 mL 2.5 mL, Dialysis catheter, ONCE, On Mon07/18/23 at 0645, For 1 dose, ARTERIAL For use only to lock dialysis catheter after dialysis Given 07/18/2023 6:11 AM EST 2.5 mL sodium citrate 4% (Anticoagulant Sodium Citrate) inj 2.5 mL 2.5 mL, Dialysis catheter, ONCE, On Mon07/18/23 at 0645, For 1 dose, VENOUS For use only to lock dialysis catheter after dialysis Given 07/18/2023 6:10 AM EST 2.5 mL documented in this [...] Directives occurred with: Patient Care Teams Manager Hotel Relationship Specialty Start Date End Date Tomer Garner MD [address] [place] [address] PCP - General 09/19/02 documented as of this encounter
--- OUTSIDE RECORDS SUMMARY | 2024-03-17 14:39 | External Medical Summary | Summary of Care ---
Author Name Unknown Organization [facility] Address [address] [place] [address] Phone [phone] Care Team Providers Care Rigger Third Name Role Phone Tomer Garner MD Primary Care Provider Reason for Visit * Episode Based Medications (Routine) - Authorized Specialty Diagnoses / Procedures Referred By Conternestina t Referred To Contact Diagnoses ESRD on peritoneal dialysis (HCC) Anemia in stage 5 chronic kidney disease, not on chronic dialysis Procedures OK EPOETIN SLOAN, NON-ESRD OK EPOETIN SLOAN, 100 UNITS ESRD Yonny Saldivar MD [address] [place] [address] [address] [facility] [address] [place] [address] Referral ID Status Reason Start Date Expiration Date V isits Requested Visits Authorized [id number] Authorized 08/22/2023 02/21/2024 999 0 Encounter Details [...] (Oral) 1981,04/11 Pneumococcal Conjugate Vacci ne, 20-valent ([id number]) 11/17/2022 Pneumococcal Polysaccharide PPV23 (Pneumovax) 02/03/2004 Seasonal [...] Anemia targets met JESSIE Meds: Epoetin Sloan 48073 UNIT/ML inj 9,000 Units 9,000 Units, Intravenous, [...] [facility] [address] [place] [id number] 09/28/2023 5:30 AM EST Treatment Hemodialysis [facility] [address] [place] [id number] 09/30/2023 5:30 AM EST Treatment Hemodialysis [facility] [address] [place] [address] 10/03/2023 5:30 AM EST Treatment Hemodialysis [facility] [address] [place] [address] 10/04/2023 2:30 PM EST Office Visit Rheumatology, [facility] [address] [address] Kori Scott MD [address] [facility] [address] [address] 10/05/2023 5:30 AM EST Treatment Hemodialysis [facility] [address] [id number] 10/07/2023 5:30 AM EST Treatment Hemodialysis [facility] [address] [id number] 10/10/2023 5:30 AM EST Treatment Hemodialysis [facility] [...] 6:10 AM EST 4 mcg Epoetin Sloan 40409 UNIT/ML inj 9,000 Units 9,000 Units, Intravenous, [...] Advance Directives occurred with: Patient Care Teams Rigger Third Relationship Specialty Start Date End Date Tomer Garner MD [address] [place] [address] PCP - General 09/19/02 documented as of this encounter
--- OUTSIDE RECORDS SUMMARY | 2024-03-17 14:39 | External Medical Summary | Summary of Care ---
Author Name Unknown Organization [facility] Address [address] [place] [address] Phone [phone] Care Team Providers Care Bartender Helper Name Role Phone Tomer Garner MD Primary Care Provider Reason for Visit * Episode Based Medications (Routine) - Authorized Specialty Diagnoses / Procedures Referred By Conternestina t Referred To Contact Diagnoses ESRD on peritoneal dialysis (HCC) Anemia in stage 5 chronic kidney disease, not on chronic dialysis Procedures FL EPOETIN SLOAN, NON-ESRD FL EPOETIN SLOAN, 100 UNITS ESRD Yonny Saldivar MD [address] [place] [address] [address] [place] [address] Referral ID Status Reason Start Date Expiration Date V isits Requested Visits Authorized [id number] Authorized 08/22/2023 02/21/2024 999 0 Encounter Details Date Type Department Care Team (Late st Contact Info) Description 07/22/2023 5:30 AM EST Treatment Hemodialysis [facility] [...] as of this encounter (statuses as of 09/23/2023) Medications Medication Sig Dispensed Refills Start Date [...] Severe. 10 Tablet 0 05/22/2023 08/21/20 Discontinued Hospital, Clinic, or Other Facility Administered Medication Ordered Dose Route Frequency Start Date End Date Status Albuterol Sulfate (Proventil) (2.5 MG/3ML) 0.083% inhalation solution 2.[address] of the chest 2.5 mg NEBULIZER ONCE PRN 07/18/2023 08/14/2023 Ended documented as of this encounter (statuses as of 09/23/2023) Active Problems Problem Noted Date Diagnosed Date [...] as of this encounter (statuses as of 09/23/2023) Resolved Problems Problem Noted Date Diagnosed Date Resolved Date Dyslipidemia, goal to be determined 08/27/2009 11/21/2013 Overview: Per Lipid Taxonomy. PURE HYPERCHOLESTEROLEM 04/25/200208/11 Overview: Per Lipid Taxonomy. 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] Sign Reading Time Taken Comments Blood Pressure 133/85 07/22/2023 9:43 AM EST Pulse 75 07/22/2023 9:43 AM EST Temperature 37.1 C (98.8 F) 07/22/2023 9:42 AM ES T Respiratory Rate 18 07/22/2023 9:42 AM EST Oxygen Saturation - - [...] Addendum Note - Mary Mabry OSA - 07/24/2023 7:36 AM ESTAddended by: MARY MABRY on: 07/24/2023 07:36 AM Modules accepted: Orders documented in this encounter Plan of Treatment Upcoming Encounters Date Type Department Care Team (Late st Contact Info) Description 09/26/2023 5:30 AM EST Treatment Hemodialysis [facility] [address] [id number] 09/28/2023 5:30 AM EST Treatment Hemodialysis [address], [place] [address] 09/30/2023 5:30 AM EST Treatment Hemodialysis [facility] [address] [place] [id number] 10/03/2023 5:30 AM EST Treatment Hemodialysis [facility] [address] [place] [id number] 10/04/2023 2:30 PM EST Office Visit Rheumatology, [facility] [address] [facility] [place] [address] Kori Scott MD [address] [place] [address] 10/05/2023 5:30 AM EST Treatment Hemodialysis [address] [place] [id number] 10/07/2023 5:30 AM EST Treatment Hemodialysis [address], [place] [address] 10/10/2023 5:30 AM EST Treatment Hemodialysis [facility] [address] [place] [address] Health Maintenance Due Date Last Done Comments [...] Diagnosis Comments ADJUSTED CALCIUM PHOSPHORUS PRODUCT STAT 07/25/2023 6:01 AM EST ESRD (end stage renal disease) (HCC) Anemia of chronic renal failure, stage 5 Anemia in chronic kidney disease, on chronic dialysis (HCC) HEPATITIS B SURFACE ANTIGEN STAT 07/25/2023 6:01 AM EST ESRD (end stage renal disease) (HCC) Anemia of chronic renal failure, stage 5 Anemia in chronic kidney disease, on chronic dialysis (HCC) PRE DIALYSIS BUN STAT 07/25/2023 6:01 AM EST ESRD (end stage renal disease) (HCC) Anemia of chronic renal failure, stage 5 Anemia in chronic kidney disease, on chronic dialysis (HCC) IRON SCREEN, INCLUDING TIBC STAT 07/25/2023 6:01 AM EST ESRD (end stage renal disease) (HCC) Anemia of chronic renal failure, stage 5 Anemia in chronic kidney disease, on chronic dialysis (HCC) ALT STAT 07/25/2023 6:01 AM EST ESRD (end stage renal disease) (HCC) Anemia of chronic renal failure, stage 5 Anemia in chronic kidney disease, on chronic dialysis (HCC) AST STAT 07/25/2023 6:01 AM EST ESRD (end stage renal disease) (HCC) Anemia of chronic renal failure, stage 5 Anemia in chronic kidney disease, on chronic dialysis (HCC) SODIUM STAT 07/25/2023 6:01 AM EST ESRD (end stage renal disease) (HCC) Anemia of chronic renal failure, stage 5 Anemia in chronic kidney disease, on chronic dialysis (HCC) POTASSIUM STAT 07/25/2023 6:01 AM EST ESRD (end stage renal disease) (HCC) Anemia of chronic renal failure, stage 5 Anemia in chronic kidney disease, on chronic dialysis (HCC) ALKALINE PHOSPHATASE STAT 07/25/2023 6:01 AM EST ESRD (end stage renal disease) (HCC) Anemia of chronic renal failure, stage 5 Anemia in chronic kidney disease, on chronic dialysis (HCC) PTH STAT 07/25/2023 6:01 AM EST ESRD (end stage renal disease) (HCC) Anemia of chronic renal failure, stage 5 Anemia in chronic kidney disease, on chronic dialysis (HCC) CREATININE STAT 07/25/2023 6:01 AM EST ESRD (end stage renal disease) (HCC) Anemia of chronic renal failure, stage 5 Anemia in chronic kidney disease, on chronic dialysis (HCC) CHLORIDE STAT 07/25/2023 6:01 AM EST ESRD (end stage renal disease) (HCC) Anemia of chronic renal failure, stage 5 Anemia in chronic kidney disease, on chronic dialysis (HCC) CO2 STAT 07/25/2023 6:01 AM EST ESRD (end stage renal disease) (HCC) Anemia of chronic renal failure, stage 5 Anemia in chronic kidney disease, on chronic dialysis (HCC) CBC STAT 07/25/2023 6:01 AM EST ESRD (end stage renal disease) (HCC) Anemia of chronic renal failure, stage 5 Anemia in chronic kidney disease, on chronic dialysis (HCC) FERRITIN STAT 07/25/2023 6:01 AM EST ESRD (end stage renal disease) (HCC) Anemia of chronic renal failure, stage 5 Anemia in chronic kidney disease, on chronic dialysis (HCC) documented in this encounter Results * POST-DIALYSIS BUN BATTERY (07/25/2023 10:45 AM EST) Post Dialysis BUN 24 mg/dL 07/25/2023 5:31 PM EST [facility] Pre Dialysis Weight 127.0 kg 07/25/2023 5:31 PM EST [facility] Post Dialysis Weight 123.0 kg 07/25/2023 5:31 PM EST [facility] Kt/V 1.38 >=1.30 07/25/2023 5:31 PM EST LABORATORY C nPNA 1.113 07/25/2023 5:31 PM EST LABORATORY C Urea Reduction Ratio 69 % 07/25/2023 5:31 PM EST [facility] Ultra Filtration Volume 4.0 L 07/25/2023 5:31 PM EST [facility] Dialysis Session Length 4.0 hours 07/25/2023 5:31 PM EST [facility] Blood Venous blood specimen / Unknown Venipuncture / Unknown 07/25/2023 10:45 AM EST 07/25/2023 10:45 AM EST Yonny Saldivar MD LAB BLOOD ORDERAB LES [facility] [address] [place] [address] * (ABNORMAL) PTH (07/25/2023 6:01 AM EST) PTH 395(H) 15 - 65 pg/mL 07/25/2023 9:22 AM EST [facility] Blood Venous blood specimen / Unknown Venipuncture / Unknown 07/25/2023 6:01 AM EST 07/25/2023 6:01 AM EST Yonny Saldivar MD LAB BLOOD ORDERAB LES [facility] [address] [place] [address] * (ABNORMAL) FERRITIN (07/25/2023 6:01 AM EST) Ferritin 588(H) 30 - 400 ng/mL 07/25/2023 9:22 AM EST [facility] Blood Venous blood specimen / Unknown Venipuncture / Unknown 07/25/2023 6:01 AM EST 07/25/2023 6:01 AM EST Yonny Saldivar MD LAB BLOOD ORDERAB LES Performing Organization Address [facility] Co de Phone Number [facility] [address] [place] [address] * ALKALINE PHOSPHATASE (07/25/2023 6:01 AM EST) Pathologist [facility] Alkaline Phosphatase 78 35 - 130 U/L 07/25/2023 8:16 AM EST [facility] Blood Venous blood specimen / Unknown Venipuncture / Unknown 07/25/2023 6:01 AM EST 07/25/2023 6:01 AM EST Yonny Saldivar MD LAB BLOOD ORDERAB LES Performing Organization Address [facility] de Phone Number [facility] [address] [place] [address] * HEPATITIS B SURFACE ANTIGEN (07/25/2023 6:01 AM EST) [facility] Hepatitis B Surface Antigen Negative Negative 07/25/2023 9:35 AM EST [facility] Blood Venous blood specimen / Unknown Venipuncture / Unknown 07/25/2023 6:01 AM EST 07/25/2023 6:01 AM EST Yonny Saldivar MD LAB BLOOD ORDERAB LES Performing Organization Address [facility] de Phone Number [facility]ATORY [facility] [address] [place] [address] * IRON SCREEN, INCLUDING TIBC (07/25/2023 6:01 AM EST) Pathologist [facility] Iron 57 45 - 176 ug/dL 07/25/2023 8:16 AM EST [facility] Iron Binding Capacity 278 250 - 425 ug/dL 07/25/2023 8:16 AM EST [facility] Transferrin Saturation Percent 21 15 - 55 % 07/25/2023 8:16 AM EST [facility] Blood Venous blood specimen / Unknown Venipuncture / Unknown 07/25/2023 6:01 AM EST 07/25/2023 6:01 AM EST Yonny Saldivar MD LAB BLOOD ORDERAB LES Performing Organization Address City/[facility]/ZIP Co de Phone Number [facility] [address] [place] [address] * (ABNORMAL) CHLORIDE (07/25/2023 6:01 AM EST) Chloride 95(L) 98 - 107 mmol/L 07/25/2023 8:16 AM EST [facility] Blood Venous blood specimen / Unknown Venipuncture / Unknown 07/25/2023 6:01 AM EST 07/25/2023 6:01 AM EST Yonny Saldivar MD LAB BLOOD ORDERAB LES Performing Organization Address City/[facility] Co de Phone Number [facility] [address] [place] [address] * (ABNORMAL) ADJUSTED CALCIUM PHOSPHORUS PRODUCT (07/25/2023 6:01 AM EST) Albumin 4.4 3.8 - 5.0 g/dL 07/25/2023 8:16 AM EST [facility] Calcium 8.5 8.4 - 10.2 mg/dL 07/25/2023 8:16 AM EST [facility] Phosphorus 9.7(H) 2.5 - 4.8 mg/dL 07/25/2023 8:16 AM EST [facility] Adjusted Calcium 8.5 mg/dL 07/25/2023 8:16 AM EST [facility] Calcium Phosphorus Product 82.5 07/25/2023 8:16 AM EST [facility] Blood Venous blood specimen / Unknown Venipuncture / Unknown 07/25/2023 6:01 AM EST 07/25/2023 6:01 AM EST Yonny Saldivar MD LAB BLOOD ORDERAB LES [facility] [address] [place] [address] * ALT (07/25/2023 6:01 AM EST) ALT 17 10 - 50 U/L 07/25/2023 8:16 AM EST [facility] Blood Venous blood specimen / Unknown Venipuncture / Unknown 07/25/2023 6:01 AM EST 07/25/2023 6:01 AM EST Yonny Saldivar MD LAB BLOOD ORDERAB LES Performing Organization Address City/[facility] Co de Phone Number [facility]AT[facility] [address] [place] [address] * CO2 (07/25/2023 6:01 AM EST) CO2 23 22 - 32 mmol/L 07/25/2023 8:16 AM EST [facility] Blood Venous blood specimen / Unknown Venipuncture / Unknown 07/25/2023 6:01 AM EST 07/25/2023 6:01 AM EST Yonny Saldivar MD LAB BLOOD ORDERAB LES Performing Organization Address City/[facility] Co de Phone Number [facility] [address] [place] [address] * SODIUM (07/25/2023 6:01 AM EST) Sodium 138 135 - 146 mmol/L 07/25/2023 8:16 AM EST [facility] Blood Venous blood specimen / Unknown Venipuncture / Unknown 07/25/2023 6:01 AM EST 07/25/2023 6:01 AM EST Yonny Saldivar MD LAB BLOOD ORDERAB LES Performing Organization Address City/[facility]/ZIP Co de Phone Number [facility] [address] [place] [address] * PRE DIALYSIS BUN (07/25/2023 6:01 AM EST) Pre-Dialysis BUN 78 mg/dL 07/25/2023 8:10 AM EST [facility] Blood Venous blood specimen / Unknown Venipuncture / Unknown 07/25/2023 6:01 AM EST 07/25/2023 6:01 AM EST Yonny Saldivar MD LAB BLOOD ORDERAB LES [facility] [address] [place] [address] * (ABNORMAL) CBC (07/25/2023 6:01 AM EST) WBC 9.63 4.00 - 10.80 K/uL 07/25/2023 8:10 AM EST [facility] RBC 3.70 4.50 - 5.25 M/uL 07/25/2023 8:10 AM EST [facility] HGB 11.2(L) 14.0 - 16.8 g/dL 07/25/2023 8:10 AM EST [facility] HCT 34.6(L) 40.0 - 48.4 % 07/25/2023 8:10 AM EST [facility] MCV 93.5 82.0 - 99.5 fL 07/25/2023 8:10 AM EST [facility] MCH 30.3 27.0 - 34.0 pg 07/25/2023 8:10 AM EST [facility] MCHC 32.4 32.0 - 36.0 g/dL 07/25/2023 8:10 AM EST [facility] RDW 14.2 11.5 - 15.5 % 07/25/2023 8:10 AM EST [facility] PLT 227 140 - 400 K/uL 07/25/2023 8:10 AM EST [facility] MPV 9.5 6.6 - 11.1 fL 07/25/2023 8:10 AM EST [facility] nRBCs 0 <=0 /100 WBCs 07/25/2023 8:10 AM EST [facility] Blood Venous blood specimen / Unknown Venipuncture / Unknown 07/25/2023 6:01 AM EST 07/25/2023 6:01 AM EST Yonny Saldivar MD LAB BLOOD ORDERAB LES Performing Organization Address City/[facility]/ZIP Co de Phone Number [facility] [address] [place] [address] * POTASSIUM (07/25/2023 6:01 AM EST) Potassium 5.0 3.5 - 5.1 mmol/L 07/25/2023 8:16 AM EST [facility] Blood Venous blood specimen / Unknown Venipuncture / Unknown 07/25/2023 6:01 AM EST 07/25/2023 6:01 AM EST Yonny Saldivar MD LAB BLOOD ORDERAB LES Performing Organization Address [facility] Co de Phone Number [facility] [address] [place] [address] * AST (07/25/2023 6:01 AM EST) AST 12 10 - 50 U/L 07/25/2023 8:16 AM EST [facility] Blood Venous blood specimen / Unknown Venipuncture / Unknown 07/25/2023 6:01 AM EST 07/25/2023 6:01 AM EST Yonny Saldivar MD LAB BLOOD ORDERAB LES Performing Organization Address City/[facility] Co de Phone Number [facility] [address] [place] [address] * (ABNORMAL) CREATININE (07/25/2023 6:01 AM EST) Creatinine 14.3(H) 0.6 - 1.2 mg/dL 07/25/2023 8:28 AM EST [facility] Comment:Results rechecked. Estimated Glomerular Filtration Rate 4(L) >=60 mL/min 07/25/2023 8:28 AM EST [facility] Comment:eGFR is calculated b ased on the CKD-EPI 2020 equation Blood Venous blood specimen / Unknown Venipuncture / Unknown 07/25/2023 6:01 AM EST 07/25/2023 6:01 AM EST Yonny Saldivar MD LAB BLOOD ORDERAB LES [facility] Organization Address City/State/ZIP Co de Phone Number LABORATORY [address] [address] documented in this encounter Visit Diagnoses [...] 4 mcg 4 mcg, Intravenous, ONCE, On 07/22/23 at 0645, For 1 dose Given 07/22/2023 6:09 AM EST 4 mcg Epoetin Sloan 13992 UNIT/ML inj 9,000 Units 9,000 Units, Intravenous, ONCE, On 07/22/23 at 0645, For 1 dose Given 07/22/2023 6:09 AM EST 9,000 Units hEParin 1,000 unit/mL infusion for dialysis 500 Units/hr (0.5 mL/hr), Hemodialysis, CONTINUOUS, Starting on 07/22/23 at 0645, Until 07/22/23 at 1433, Maintenance: Stop 1 hour before dialysis end in AVF/AVG. Continue through dialysis in CVC. The total delivered dose is approximately 2,500 to 5,000 units, based on weight and treatment duration assumptions New Bag 07/22/2023 6:04 AM EST 500 Units/hr 0.5 mL/hr hEParin 1000 UNIT/ML inj 2,000 Units 2,000 Units, Intravenous, ONCE, On 07/22/23 at 0645, For 1 dose, Loading dose Given 07/22/2023 6:03 AM EST 2,000 Units sodium citrate 4% (Anticoagulant Sodium Citrate) inj 2.5 mL 2.5 mL, Dialysis catheter, ONCE, On 07/22/23 at 0645, For 1 dose, ARTERIAL For use only to lock dialysis catheter after dialysis Given 07/22/2023 6:10 AM EST 2.5 mL sodium citrate 4% (Anticoagulant Sodium Citrate) inj 2.5 mL 2.5 mL, Dialysis catheter, ONCE, On 07/22/23 at 0645, For 1 dose, VENOUS For use only to lock dialysis catheter after dialysis Given 07/22/2023 6:09 AM EST 2.5 mL documented in this [...] Advance Directives occurred with: Patient Care Teams Bartender Helper Relationship Specialty Start Date End Date Tomer Garner MD [address] [place] [address] PCP - General 09/19/02 documented as of this encounter
--- OUTSIDE RECORDS SUMMARY | 2024-03-17 14:39 | External Medical Summary | Summary of Care ---
Author Name Unknown Organization [facility] Address [address] [place] [address] Phone [phone] Care Team Providers Care Appliance Servicer Name Role Phone Tomer Garner MD Primary Care Provider Reason for Visit * Reason Comments Hemodialysis * Episode Based Medications (Routine) - Authorized Specialty Diagnoses / Procedures Referred By Contac t Referred To Contact Diagnoses ESRD on peritoneal dialysis (HCC) Anemia in stage 5 chronic kidney disease, not on chronic dialysis Procedures [place] EPOETIN SLOAN, NON-ESRD [place] EPOETIN SLOAN, 100 UNITS ESRD Yonny Saldivar MD [address] [place] [address] [place] [address] Referral ID Status Reason Start Date Expiration Date V isits Requested Visits Authorized [id number] Authorized 08/22/2023 02/21/2024 999 0 Encounter Details Date Type Department Care Team (Late st Contact Info) Description 07/15/2023 5:30 AM EDT Treatment Hemodialysis [address] [address] [place] [address] ESRD (end stage renal disease) (HCC)*; Anemia of chronic renal failure, stage 5 ; Anemia in chronic kidney disease, on chronic dialysis (HCC); Anemia in chronic renal disease; Anemia in stage 5 chronic kidney disease, not on chronic dialysis ; Pre-transplant evaluation for ESRD (end stage renal [...] the morning. 30 Tablet 2 04/11/2023 08/08/20 23 Discontinued(Med ication List Clean Up) Torsemide 100 MG Oral Tablet (Demadex) Take 1 Tablet by mouth in the morning and 1 Tablet in the evening. (not beyond 4pm). 180 Tablet 1 04/13/2023 08/08/20 23 Discontinued(Med ication List Clean Up) oxyCODONE HCl 5 MG Oral Tablet (Oxy IR) Take 1 Tablet by mouth every 6 hours as needed for Pain, Severe. 10 Tablet 0 05/22/2023 08/21/20 23 Discontinued Calcium Acetate (Phos Binder) 667 MG Oral Capsule (Phoslo) Take 3 Capsules by mouth with meals and snacks. 900 Capsule 3 06/29/2023 07/18/20 23 Discontinued(Ref ill) documented as of this encounter [...] (Oral) 1981,04/11 Pneumococcal Conjugate Vacci ne, 20-valent ([id number]) 11/17/2022 Pneumococcal Polysaccharide PPV23 (Pneumovax) 02/03/2004 Seasonal [...] Sign Reading Time Taken Comments Blood Pressure 138/85 07/15/2023 9:46 AM EDT Pulse 82 07/15/2023 9:46 AM EDT Temperature 36.9 C (98.4 F) 07/15/2023 9:45 AM ED T Respiratory Rate 16 07/15/2023 9:45 AM EDT Oxygen Saturation - - Inhaled [...] [facility] [address] [place] [address] 09/28/2023 5:30 AM EST Treatment Hemodialysis [facility] [address] [place] [address] 09/30/2023 5:30 AM EST Treatment Hemodialysis [facility] [address] [place] [address] 10/03/2023 5:30 AM EST Treatment Hemodialysis [facility] [address] [place] [address] 10/04/2023 2:30 PM EST Office Visit [facility]umatology, [facility] [address] [facility] [place] [address] Kori Scott MD [address] [facility] [place] [address] 10/05/2023 5:30 AM EST Treatment Hemodialysis [facility] [address] [id number] 10/07/2023 5:30 AM EST Treatment Hemodialysis [facility] [address] [id number] 10/10/2023 5:30 AM EST Treatment Hemodialysis [facility] [address] [id number] Health Maintenance Due Date Last Done Comments [...] & 2 W/REFLEX, SOLID ORGAN TRANSPLANT STAT 07/18/2023 5:55 AM EST Pre-transplant evaluation for ESRD (end stage renal disease) documented in this encounter Results * MONTHLY HLA CLASS 1 & 2 W/REFLEX, SOLID ORGAN TRANSPLANT (07/18/2023 5:55 AM EST) External Lab Report See Scanned Report 07/28/2023 11:51 AM EST [place] Blood Venous blood specimen / Unknown Venipuncture / Unknown 07/18/2023 5:55 AM EST 07/18/2023 5:55 AM EST Lawson Steinberg MD LAB BLOOD ORDERABLES [place] documented in this encounter Visit Diagnoses Diagnosis ESRD (end stage renal disease) (HCC)- Primary End stage renal disease Anemia of chronic renal failure, stage 5 Anemia in chronic kidney disease, on chronic dialysis (HCC) Anemia in stage 5 chronic kidney disease, not on chronic dialysis Pre-transplant evaluation for ESRD (end stage renal disease) Other specified pre-operative examination documented in this encounter Administered Medications Inactive Administered Medications - up to 3 most recent administrations Medication Order MAR Action Action Date Dose Rate Site Doxercalciferol (Hectorol) 2 MCG/ML inj 4 mcg 4 mcg, Intravenous, ONCE, On 07/15/23 at 0630, For 1 dose Given 07/15/2023 6:29 AM EDT 4 mcg Epoetin Sloan 50750 UNIT/ML inj 9,000 Units 9,000 Units, Intravenous, ONCE, On 07/15/23 at 0630, For 1 dose Given 07/15/2023 6:29 AM EDT 9,000 Units hEParin 1,000 unit/mL infusion for dialysis 500 Units/hr (0.5 mL/hr), Hemodialysis, CONTINUOUS, Starting on 07/15/23 at 0630, Until 07/15/23 at 1426, Maintenance: Stop 1 hour before dialysis end in AVF/AVG. Continue through dialysis in CVC. The total delivered dose is approximately 2,500 to 5,000 units, based on weight and treatment duration assumptions Start Infusion 07/15/2023 5:41 AM EDT 500 Units/hr 0.5 mL/hr hEParin 1000 UNIT/ML inj 2,000 Units 2,000 Units, Intravenous, ONCE, On 07/15/23 at 0630, For 1 dose, Loading dose Given 07/15/2023 5:41 AM EDT 2,000 Units sodium citrate 4% (Anticoagulant Sodium Citrate) inj 2.5 mL 2.5 mL, Dialysis catheter, ONCE, On 07/15/23 at 0630, For 1 dose, ARTERIAL For use only to lock dialysis catheter after dialysis Given 07/15/2023 9:46 AM EDT 2.5 mL sodium citrate 4% (Anticoagulant Sodium Citrate) inj 2.5 mL 2.5 mL, Dialysis catheter, ONCE, On 07/15/23 at 0630, For 1 dose, VENOUS For use only to lock dialysis catheter after dialysis Given 07/15/2023 9:46 AM EDT 2.5 mL documented in this [...] Advance Directives occurred with: Patient Care Teams Appliance Servicer Relationship Specialty Start Date End Date Tomer Garner MD [address] [facility] [place] [address] PCP - General 09/19/02 documented as of this encounter
--- OUTSIDE RECORDS SUMMARY | 2024-03-17 14:39 | External Medical Summary | Summary of Care ---
Author Name Unknown Organization [facility] Address [address] [place] [address] Phone [phone] Care Team Providers Care Fruit Vendor Name Role Phone Tomer Garner MD Primary Care Provider [phone] Reason for Visit * Reason Comments Hemodialysis * Episode Based Medications (Routine) - Authorized Specialty Diagnoses / Procedures Referred By Contac t Referred To Contact Diagnoses ESRD on peritoneal dialysis (HCC) Anemia in stage 5 chronic kidney disease, not on chronic dialysis Procedures [place] EPOETIN SLOAN, NON-ESRD [place] EPOETIN SLOAN, 100 UNITS ESRD Yonny Saldivar MD [address] [place] [address] [address] [place] [address] Referral ID Status Reason Start Date Expiration Date V isits Requested Visits Authorized [id number] Authorized 08/22/2023 02/21/2024 999 0 Encounter Details [...] (Oral) 1980,04/11 Pneumococcal Conjugate Vacci ne, 20-valent ([id number]) 11/17/2022 Pneumococcal Polysaccharide PPV23 (Pneumovax) 02/03/2004 Seasonal [...] [address] [place] [address] 09/28/2023 5:30 AM EST Treatment Hemodialysis [address] [place] [address] 09/30/2023 5:30 AM EST Treatment Hemodialysis [address] [address] [place] [address] 10/03/2023 5:30 AM EST Treatment Hemodialysis [address] [place] [address] 10/04/2023 2:30 PM EST Office Visit Rheumatology, [facility] [address] [place] [address] Kori Scott MD [address] [place] [address] 10/05/2023 5:30 AM EST Treatment Hemodialysis [address] [id number] 10/07/2023 5:30 AM EST Treatment Hemodialysis [address] [address] [id number] 10/10/2023 5:30 AM EST Treatment Hemodialysis [facility] [address] [id number] Health Maintenance Due Date Last Done Comments [...] 6:29 AM EDT 4 mcg Epoetin Sloan [address] UNIT/ML inj 9,000 Units 9,000 Units, Intravenous, [...] Advance Directives occurred with: Patient Care Teams Fruit Vendor Relationship Specialty Start Date End Date Tomer Garner MD [address] [place] [address] PCP - General 09/19/02 documented as of this encounter
--- OUTSIDE RECORDS SUMMARY | 2024-03-17 14:39 | External Medical Summary | Summary of Care ---
Author Name Unknown Organization [facility] Address [address] [place] [address] Phone [phone] Care Team Providers Care Shipping Team Leader Name Role Phone Tomer Garner MD Primary Care Provider Reason for Visit * Episode Based Medications (Routine) - Authorized Specialty Diagnoses / Procedures Referred By Conternestina t Referred To Contact Diagnoses ESRD on peritoneal dialysis (HCC) Anemia in stage 5 chronic kidney disease, not on chronic dialysis Procedures [place] EPOETIN SLOAN, NON-ESRD [place] EPOETIN SLOAN, 100 UNITS ESRD Yonny Saldivar MD [address] [place] [address] [address] [place] [address] Referral ID Status Reason Start Date Expiration Date V isits Requested Visits Authorized [id number] Authorized 08/22/2023 02/21/2024 999 0 Encounter Details [...] (Oral) 1981,04/11 Pneumococcal Conjugate Vacci ne, 20-valent ([id number]) 11/17/2022 Pneumococcal Polysaccharide PPV23 (Pneumovax) 02/03/2004 Seasonal [...] [address] [id number] 09/28/2023 5:30 AM EST Treatment Hemodialysis [address], [place] [address] 09/30/2023 5:30 AM EST Treatment Hemodialysis [facility] [address] [place] [address] 10/03/2023 5:30 AM EST Treatment Hemodialysis [address] [place] [address] 10/04/2023 2:30 PM EST Office Visit Rheumatology, [facility] [address] [place] [facility] [place] [address] Kori Scott MD [address] [place] [address] 10/05/2023 5:30 AM EST Treatment Hemodialysis [address] [place] [address] 10/07/2023 5:30 AM EST Treatment Hemodialysis [address], [place] [address] 10/10/2023 5:30 AM EST Treatment Hemodialysis [address] [place] [address] [address] Health Maintenance Due Date Last Done Comments [...] 69 % 07/25/2023 5:31 PM EST LABORATORY [facility] Ultra Filtration Volume 4.0 L 07/25/2023 5:31 PM EST LABORATORY [facility] Dialysis Session Length 4.0 hours 07/25/2023 5:31 PM EST LAB[facility]ATORY [facility] Blood Venous blood specimen / Unknown Venipuncture / Unknown 07/25/2023 10:45 AM EST 07/25/2023 10:45 AM EST Yonny Saldivar MD LAB BLOOD ORDERAB LES LABORATORY [facility] [address] [place] [address] * (ABNORMAL) PTH (07/25/2023 6:01 AM EST) PTH 395(H) 15 - 65 pg/mL 07/25/2023 9:22 AM EST LABORATORY [facility] Blood Venous blood specimen / Unknown Venipuncture / Unknown 07/25/2023 6:01 AM EST 07/25/2023 6:01 AM EST Yonny Saldivar MD LAB BLOOD ORDERAB LES LABORATORY [facility] [address] [place] [address] * (ABNORMAL) FERRITIN (07/25/2023 6:01 AM EST) Ferritin 588(H) 30 - 400 ng/mL 07/25/2023 9:22 AM EST [facility] Blood Venous blood specimen / Unknown Venipuncture / Unknown 07/25/2023 6:01 AM EST 07/25/2023 6:01 AM EST Yonny Saldivar MD LAB BLOOD ORDERAB LES Performing Organization Address [facility] Co de Phone Number LAB[facility]ATORY [facility] [address] [place] [address] * ALKALINE PHOSPHATASE (07/25/2023 6:01 AM EST) Pathologist [facility] Alkaline Phosphatase 78 35 - 130 U/L 07/25/2023 8:16 AM EST [facility] Blood Venous blood specimen / Unknown Venipuncture / Unknown 07/25/2023 6:01 AM EST 07/25/2023 6:01 AM EST Yonny Saldivar MD LAB BLOOD ORDERAB LES Performing Organization Address [facility] de Phone Number LABORATORY [facility] [address] [place] [address] * HEPATITIS B SURFACE ANTIGEN (07/25/2023 6:01 AM EST) [facility] Hepatitis B Surface Antigen Negative Negative 07/25/2023 9:35 AM EST LABORATORY [facility] Blood Venous blood specimen / Unknown Venipuncture / Unknown 07/25/2023 6:01 AM EST 07/25/2023 6:01 AM EST Yonny Saldivar MD LAB BLOOD ORDERAB LES Performing Organization Address [facility] de Phone Number LABORATORY [facility] [address] [place] [address] * IRON SCREEN, INCLUDING TIBC (07/25/2023 6:01 AM EST) Pathologist [facility] Iron 57 45 - 176 ug/dL 07/25/2023 [...] LAB BLOOD ORDERAB LES Performing Organization Address City/[facility]/ZIP Co de Phone Number LAB[facility]ATORY [facility] [address] [place] [address] * (ABNORMAL) CHLORIDE (07/25/2023 6:01 AM EST) Chloride 95(L) 98 - 107 mmol/L 07/25/2023 8:16 AM EST [facility] Blood Venous blood specimen / Unknown Venipuncture / Unknown 07/25/2023 6:01 AM EST 07/25/2023 6:01 AM EST Yonny Saldivar MD LAB BLOOD ORDERAB LES Performing Organization Address City/[facility] Co de Phone Number [facility]ORY [facility] [address] [place] [address] * (ABNORMAL) ADJUSTED CALCIUM PHOSPHORUS PRODUCT (07/25/2023 [...] Saldivar MD LAB BLOOD ORDERAB LES LABORATORY [facility] [address] [place] [address] * ALT (07/25/2023 6:01 AM EST) ALT 17 10 - 50 U/L 07/25/2023 8:16 AM EST [facility] Blood Venous blood specimen / Unknown Venipuncture / Unknown 07/25/2023 6:01 AM EST 07/25/2023 6:01 AM EST Yonny Saldivar MD LAB BLOOD ORDERAB LES Performing Organization Address City/[facility] Co de Phone Number LABORATORY [facility] [address] [place] [address] * CO2 (07/25/2023 6:01 AM EST) CO2 23 22 - 32 mmol/L 07/25/2023 8:16 AM EST [facility] Blood Venous blood specimen / Unknown Venipuncture / Unknown 07/25/2023 6:01 AM EST 07/25/2023 6:01 AM EST Yonny Saldivar MD LAB BLOOD ORDERAB LES Performing Organization Address City/[facility] Co de Phone Number LABORATORY [facility] [address] [place] [address] * SODIUM (07/25/2023 6:01 AM EST) Sodium 138 135 - 146 mmol/L 07/25/2023 8:16 AM EST [facility] Blood Venous blood specimen / Unknown Venipuncture / Unknown 07/25/2023 6:01 AM EST 07/25/2023 6:01 AM EST Yonny Saldivar MD LAB BLOOD ORDERAB LES Performing Organization Address City/[facility]/ZIP Co de Phone Number LABORATORY [facility] [address] [place] [address] * PRE DIALYSIS BUN (07/25/2023 6:01 AM EST) Pre-Dialysis BUN 78 mg/dL 07/25/2023 8:10 AM EST [facility] Blood Venous blood specimen / Unknown Venipuncture / Unknown 07/25/2023 6:01 AM EST 07/25/2023 6:01 AM EST Yonny Saldivar MD LAB BLOOD ORDERAB LES [facility] [address] [place] [address] * (ABNORMAL) CBC (07/25/2023 6:01 AM EST) [...] LAB BLOOD ORDERAB LES Performing Organization Address City/[facility]/ZIP Co de Phone Number LABORATORY [facility] [address] [place] [address] * POTASSIUM (07/25/2023 6:01 AM EST) Potassium 5.0 3.5 - 5.1 mmol/L 07/25/2023 8:16 AM EST LABORATORY [facility] Blood Venous blood specimen / Unknown Venipuncture / Unknown 07/25/2023 6:01 AM EST 07/25/2023 6:01 AM EST Yonny Saldivar MD LAB BLOOD ORDERAB LES Performing Organization Address [facility] Co de Phone Number LABORATORY [facility] [address] [place] [address] * AST (07/25/2023 6:01 AM EST) AST 12 10 - 50 U/L 07/25/2023 8:16 AM EST LABORATORY [facility] Blood Venous blood specimen / Unknown Venipuncture / Unknown 07/25/2023 6:01 AM EST 07/25/2023 6:01 AM EST Yonny Saldivar MD LAB BLOOD ORDERAB LES Performing Organization Address City/[facility] Co de Phone Number LABORATORY [facility] [address] [place] [address] * (ABNORMAL) CREATININE (07/25/2023 6:01 AM EST) Creatinine 14.3(H) 0.6 - 1.2 mg/dL 07/25/2023 8:28 AM EST LABORATORY [facility] Comment:Results rechecked. Estimated Glomerular Filtration Rate 4(L) >=60 mL/min 07/25/2023 8:28 AM EST LABORATORY [facility] Comment:eGFR is calculated b ased on the CKD-EPI 2020 equation Blood Venous blood specimen / Unknown Venipuncture / Unknown 07/25/2023 6:01 AM EST 07/25/2023 6:01 AM EST Yonny Saldivar MD LAB BLOOD ORDERAB LES [facility] Organization Address City/State/ZIP Co de Phone Number LABORATORY [address] [address] documented in this encounter Visit [...] 6:09 AM EST 4 mcg Epoetin Sloan [address] UNIT/ML inj 9,000 Units 9,000 Units, Intravenous, [...] Directives occurred with: Patient Care Teams Shipping Team Leader Relationship Specialty Start Date End Date Tomer Garner MD [address] [place] [address] PCP - General 09/19/02 documented as of this encounter
--- OUTSIDE RECORDS SUMMARY | 2024-03-17 14:39 | External Medical Summary | Summary of Care ---
Author Name Unknown Organization [facility] Address [address] [place] [address] Phone [phone] Care Team Providers Care Mule Developer Name Role Phone Tomer Garner MD Primary Care Provider Reason for Visit * Reason Comments Hemodialysis * Episode Based Medications (Routine) - Authorized Specialty Diagnoses / Procedures Referred By Contac t Referred To Contact Diagnoses ESRD on peritoneal dialysis (HCC) Anemia in stage 5 chronic kidney disease, not on chronic dialysis Procedures [place] EPOETIN SLOAN, NON-ESRD [place] EPOETIN SLOAN, 100 UNITS ESRD Yonny Saldivar MD [address] [place] [address] [place] [address] Referral ID Status Reason Start Date Expiration Date V isits Requested Visits Authorized [id number] Authorized 08/22/2023 02/21/2024 999 0 Encounter Details [...] (Oral) 1981,04/11 Pneumococcal Conjugate Vacci ne, 20-valent ([id number]) 11/17/2022 Pneumococcal Polysaccharide PPV23 (Pneumovax) 02/03/2004 Seasonal [...] [address] [place] [address] 09/28/2023 5:30 AM EST Treatment Hemodialysis [address] [address] [place] [address] 09/30/2023 5:30 AM EST Treatment Hemodialysis [facility] [address] [place] [address] 10/03/2023 5:30 AM EST Treatment Hemodialysis [facility] [address] [place] [address] 10/04/2023 2:30 PM EST Office Visit [facility]umatology, [facility] [address] [facility] [place] [address] Kori Scott MD [address] [facility] [place] [address] 10/05/2023 5:30 AM EST Treatment Hemodialysis [address] [address] [id number] 10/07/2023 5:30 AM EST Treatment Hemodialysis [address] [id number] 10/10/2023 5:30 AM EST Treatment Hemodialysis [facility] [address] [id number] Health Maintenance Due Date Last Done Comments [...] 6:29 AM EDT 4 mcg Epoetin [place]loan [address] UNIT/ML inj 9,000 Units 9,000 Units, Intravenous, [...] Advance Directives occurred with: Patient Care Teams Mule Developer Relationship Specialty Start Date End Date Tomer Garner MD [address] [facility] [address] PCP - General 09/19/02 documented as of this encounter
--- OUTSIDE RECORDS SUMMARY | 2024-03-17 14:39 | External Medical Summary | Summary of Care ---
Author Name Unknown Organization [facility] Address [address] [place] [address] Phone [phone] Care Team Providers Care Marble Mason Name Role Phone Tomer Garner MD Primary Care Provider Reason for Visit * Episode Based Medications (Routine) - Authorized Specialty Diagnoses / Procedures Referred By Conternestina t Referred To Contact Diagnoses ESRD on peritoneal dialysis (HCC) Anemia in stage 5 chronic kidney disease, not on chronic dialysis Procedures [place] EPOETIN SLOAN, NON-ESRD [place] EPOETIN SLOAN, 100 UNITS ESRD Yonny Saldivar MD [address] [place] [address] [address] [place] [address] Referral ID Status Reason Start Date Expiration Date V isits Requested Visits Authorized [id number] Authorized 08/22/2023 02/21/2024 999 0 Encounter Details [...] (Oral) 1980,04/11 Pneumococcal Conjugate Vacci ne, 20-valent ([id number]) 11/17/2022 Pneumococcal Polysaccharide PPV23 (Pneumovax) 02/03/2004 Seasonal [...] Anemia targets met JESSIE Meds: Epoetin Sloan [address] UNIT/ML inj 9,000 Units 9,000 Units, Intravenous, [...] [address] [place] [address] [address] 09/28/2023 5:30 AM EST Treatment Hemodialysis [address] [place] [address] 09/30/2023 5:30 AM EST Treatment Hemodialysis [facility] [address] [place] [address] 10/03/2023 5:30 AM EST Treatment Hemodialysis [facility] [address] [place] [address] 10/04/2023 2:30 PM EST Office Visit Rheumatology, Cl[facility] [address] [place] [address] Kori Scott MD [address] [facility] [place] [address] 10/05/2023 5:30 AM EST Treatment Hemodialysis [address] [id number] 10/07/2023 5:30 AM EST Treatment Hemodialysis [address] [address] [id number] 10/10/2023 5:30 AM EST Treatment Hemodialysis Clau [...] 6:10 AM EST 4 mcg Epoetin Sloan [address] UNIT/ML inj 9,000 Units 9,000 Units, Intravenous, [...] Advance Directives occurred with: Patient Care Teams Marble Mason Relationship Specialty Start Date End Date Tomer Garner MD [address] [place] [address] PCP - General 09/19/02 documented as of this encounter
--- OUTSIDE RECORDS SUMMARY | 2024-03-17 14:39 | External Medical Summary | Summary of Care ---
Author Name Unknown Organization [facility] Address [address] [place] [address] Phone [phone] Care Team Providers Care Extraction Machine Operator Name Role Phone Tomer Garner MD Primary Care Provider Reason for Visit * Reason Comments Hemodialysis * Episode Based Medications (Routine) - Authorized Specialty Diagnoses / Procedures Referred By Contac t Referred To Contact Diagnoses ESRD on peritoneal dialysis (HCC) Anemia in stage 5 chronic kidney disease, not on chronic dialysis Procedures [place] EPOETIN SLOAN, NON-ESRD [place] EPOETIN SLOAN, 100 UNITS ESRD Yonny Saldivar MD [address] [place] [address] [address] [place] [address] Referral ID Status Reason Start Date Expiration Date V isits Requested Visits Authorized [id number] Authorized 08/22/2023 02/21/2024 999 0 Encounter Details [...] (Oral) 1980,04/11 Pneumococcal Conjugate Vacci ne, 20-valent ([id number]) 11/17/2022 Pneumococcal Polysaccharide PPV23 (Pneumovax) 02/03/2004 Seasonal [...] [address] [place] [address] 09/28/2023 5:30 AM EST Treatment Hemodialysis [address] [place] [address] 09/30/2023 5:30 AM EST Treatment Hemodialysis [facility] [address] [place] [address] 10/03/2023 5:30 AM EST Treatment Hemodialysis [facility] [address] [place] [place] [address] [address] 10/04/2023 2:30 PM EST Office Visit Rheumatology, [facility] [address] [facility] [place] [address] Kori Scott MD [address] [place] [facility] [place] [address] 10/05/2023 5:30 AM EST Treatment Hemodialysis [address] [id number] 10/07/2023 5:30 AM EST Treatment Hemodialysis [facility] [address] [id number] 10/10/2023 5:30 AM EST Treatment Hemodialysis [facility] [address] [id number] Health Maintenance Due Date Last Done Comments [...] 6:29 AM EDT 4 mcg Epoetin [place]loan [address] UNIT/ML inj 9,000 Units 9,000 Units, Intravenous, [...] Advance Directives occurred with: Patient Care Teams Extraction Machine Operator Relationship Specialty Start Date End Date Tomer Garner MD [address] [place] [address] PCP - General 09/19/02 documented as of this encounter
--- OUTSIDE RECORDS SUMMARY | 2024-03-17 14:39 | External Medical Summary | Summary of Care ---
Author Name Unknown Organization [facility] Address [address] [place] [address] Phone [phone] Care Team Providers Care Bilingual Kindergarten Teacher Name Role Phone Tomer Garner MD Primary Care Provider Reason for Visit * Episode Based Medications (Routine) - Authorized Specialty Diagnoses / Procedures Referred By Conternestina t Referred To Contact Diagnoses ESRD on peritoneal dialysis (HCC) Anemia in stage 5 chronic kidney disease, not on chronic dialysis Procedures [place] EPOETIN SLOAN, NON-ESRD [place] EPOETIN SLOAN, 100 UNITS ESRD Yonny Saldivar MD [address] [place] [address] [address] [place] [address] Referral ID Status Reason Start Date Expiration Date V isits Requested Visits Authorized [id number] Authorized 08/22/2023 02/21/2024 999 0 Encounter Details [...] (Oral) 1980,04/11 Pneumococcal Conjugate Vacci ne, 20-valent ([id number]) 11/17/2022 Pneumococcal Polysaccharide PPV23 (Pneumovax) 02/03/2004 Seasonal [...] Anemia targets met JESSIE Meds: Epoetin Sloan [address] UNIT/ML inj 9,000 Units 9,000 Units, Intravenous, [...] [address] [place] [address] 09/28/2023 5:30 AM EST Treatment Hemodialysis [address] [place] [address] 09/30/2023 5:30 AM EST Treatment Hemodialysis [address] [place] [address] 10/03/2023 5:30 AM EST Treatment Hemodialysis [address] [place] [address] 10/04/2023 2:30 PM EST Office Visit Rheumatology, Clau [facility] [address] [place] [address] Kori Scott MD [address] [facility] [place] [address] 10/05/2023 5:30 AM EST Treatment Hemodialysis [address] [id number] 10/07/2023 5:30 AM EST Treatment Hemodialysis [address] [id number] 10/10/2023 5:30 AM EST Treatment Hemodialysis Clau [...] 6:10 AM EST 4 mcg Epoetin Sloan [address] UNIT/ML inj 9,000 Units 9,000 Units, Intravenous, [...] Advance Directives occurred with: Patient Care Teams Bilingual Kindergarten Teacher Relationship Specialty Start Date End Date Tomer Garner MD [address] [place] [address] PCP - General 09/19/02 documented as of this encounter
--- OUTSIDE RECORDS SUMMARY | 2024-03-17 14:39 | External Medical Summary | Summary of Care ---
Author Name Unknown Organization [facility] Address [address] [place] [address] Phone [phone] Care Team Providers Care Drilling Fluids Specialist Name Role Phone Tomer Garner MD Primary Care Provider Reason for Visit * Reason Comments Hemodialysis * Episode Based Medications (Routine) - Authorized Specialty Diagnoses / Procedures Referred By Contac t Referred To Contact Diagnoses ESRD on peritoneal dialysis (HCC) Anemia in stage 5 chronic kidney disease, not on chronic dialysis Procedures [place] EPOETIN SLOAN, NON-ESRD [place] EPOETIN SLOAN, 100 UNITS ESRD Yonny Saldivar MD [address] [place] [address] [place] [address] [address] Referral ID Status Reason Start Date Expiration Date V isits Requested Visits Authorized [id number] Authorized 08/22/2023 02/21/2024 999 0 Encounter Details [...] (Oral) 1981,04/11 Pneumococcal Conjugate Vacci ne, 20-valent ([id number]) 11/17/2022 Seasonal Influenza, PF, 6 M & [...] 5:30 AM EST Treatment Hemodialysis [address], [place] [address] 09/28/2023 5:30 AM EST Treatment Hemodialysis [address], [place] [address] 09/30/2023 5:30 AM EST Treatment Hemodialysis [address] [place] [address] 10/03/2023 5:30 AM EST Treatment Hemodialysis [address] [place] [address] 10/04/2023 2:30 PM EST Office Visit Rhe[facility]ology[facility] [address] [facility] [place] [address] Kori Scott MD [address] [place] [facility] [place] [address] 10/05/2023 5:30 AM EST Treatment Hemodialysis [address] [place] [address] 10/07/2023 5:30 AM EST Treatment Hemodialysis [address] [id number] 10/10/2023 5:30 AM EST Treatment Hemodialysis [address] [place] [address] Health Maintenance Due Date Last Done Comments [...] dialysis documented in this encounter Administered Medications Active Administered Medications - up to 3 most recent administrations Medication Order MAR Action Action Date Dose Rate Site hEParin 1,000 unit/mL infusion for dialysis 500 Units/hr (0.5 mL/hr), Hemodialysis, CONTINUOUS, Starting on 09/23/23 at 0700, Until Discontinued, Maintenance: Stop 1 hour before dialysis end in AVF/AVG. Continue through dialysis in CVC. The total delivered dose is approximately 2,500 to 5,000 units, based on weight and treatment duration assumptions New Bag 09/23/2023 7:00 AM EST 500 Units/hr 0.5 mL/hr Inactive Administered Medications - up to 3 most recent administrations Medication Order MAR Action Action Date Dose Rate Site Doxercalciferol (Hectorol) 2 MCG/ML inj 4 mcg 4 mcg, Intravenous, ONCE, On 09/23/23 at 0700, For 1 dose Given 09/23/2023 6:59 AM EST 4 mcg Epoetin Sloan [address] UNIT/ML inj 7,600 Units 7,600 Units, Intravenous, ONCE, On 09/23/23 at 0700, For 1 dose Given 09/23/2023 6:58 AM EST 7,600 Units hEParin 1000 UNIT/ML inj 2,000 Units 2,000 [...] Advance Directives occurred with: Patient Care Teams Drilling Fluids Specialist Relationship Specialty Start Date End Date Tomer Garner MD [address] [place] [facility] [place] [address] PCP - General 09/19/02 documented as of this encounter
--- OUTSIDE RECORDS SUMMARY | 2024-03-17 14:40 | External Medical Summary | Summary of Care ---
Author Name Unknown Organization [facility] Address [address] [place] [address] Phone [phone] Care Team Providers Care Ship Fitter Name Role Phone Tomer Garner MD Primary Care Provider Reason for Visit * Reason Comments Hemodialysis * Episode Based Medications (Routine) - Authorized Specialty Diagnoses / Procedures Referred By Contac t Referred To Contact Diagnoses ESRD on peritoneal dialysis (HCC) Anemia in stage 5 chronic kidney disease, not on chronic dialysis Procedures LA EPOETIN SLOAN, NON-ESRD LA EPOETIN SLOAN, 100 UNITS ESRD Yonny Saldivar MD [address] [place] [address] [place] [id number] Referral ID Status Reason Start Date Expiration Date V isits Requested Visits Authorized [id number] Authorized 08/22/2023 02/21/2024 999 0 Encounter Details Date Type Department Care Team (Late st Contact Info) Description 07/20/2023 5:30 AM EST Treatment Hemodialysis [facility] [...] as of this encounter (statuses as of 09/21/2023) Medications Medication Sig Dispensed Refills Start Date [...] as of this encounter (statuses as of 09/21/2023) Active Problems Problem Noted Date Diagnosed Date [...] as of this encounter (statuses as of 09/21/2023) Resolved Problems Problem Noted Date Diagnosed Date Resolved Date Dyslipidemia, goal to be determined 08/27/2009 11/21/2013 Overview: Per Lipid Taxonomy. PURE HYPERCHOLESTEROLEM 04/25/200208/11 Overview: Per Lipid Taxonomy. 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 1 Hemoptysis 04/11/1996 08/11/1996 Overview: ICD-10 update of inactive term documented as of this encounter (statuses as of 09/21/2023) Immunizations Name Administration Dates Next Due COVID-19 mRNA, LNP-s, No Pre serve, 2-Dose Series (Moderna) 11/23/2020,10/18/2020 DTP Vaccine 1981,1981,1981 HEP B - Hepatitis B (Dialysis/Immumocomp Pt) 05/02/2023,04/04/2023 MMR - Measles/Mumps/Rubella Vaccine 05/11/1982 OPV - Polio Virus Vaccine (Oral) 1981,04/11 Pneumococcal Conjugate Vacci ne, 20-valent ([id number]) 11/17/2022 Seasonal Influenza, PF, 6 M & [...] Sign Reading Time Taken Comments Blood Pressure 117/68 07/20/2023 9:45 AM EST Pulse 68 07/20/2023 9:45 AM EST Temperature 36.4 C (97.5 F) 07/20/2023 9:45 AM ES T Respiratory Rate 18 07/20/2023 9:45 AM EST Oxygen Saturation - - [...] Description 09/23/2023 5:30 AM EST Treatment Hemodialysis [facility] [address] [place] [id number] 09/26/2023 5:30 AM EST Treatment Hemodialysis [facility] [address] [place] [id number] 09/28/2023 5:30 AM EST Treatment Hemodialysis [facility] [address] [place] [id number] 09/30/2023 5:30 AM EST Treatment Hemodialysis [facility] [address] [place] [id number] 10/03/2023 5:30 AM EST Treatment Hemodialysis [facility] [address] [id number] 10/04/2023 2:30 PM EST Office Visit Rheumatology, [facility] [address] [place] [facility] [place] [address] Kori Scott MD [address] [place] [address] 10/05/2023 5:30 AM EST Treatment Hemodialysis [facility] [address] [place] [id number] 10/07/2023 5:30 AM EST Treatment Hemodialysis [facility] [address] [id number] 10/10/2023 5:30 AM EST Treatment Hemodialysis [facility] [address] [id number] Health Maintenance Due Date Last Done Comments [...] Diagnosis ESRD (end stage renal disease) ([facility])- Primary End stage renal disease [...] mcg 4 mcg, Intravenous, ONCE, On Marylu 07/20/23 at 0745, For 1 dose Given 07/20/2023 9:08 AM EST 4 mcg Epoetin Sloan 15083 UNIT/ML inj 9,000 Units 9,000 Units, Intravenous, ONCE, On Marylu 07/20/23 at 0745, For 1 dose Given 07/20/2023 9:09 AM EST 9,000 Units hEParin 1,000 unit/mL infusion for dialysis 500 Units/hr (0.5 mL/hr), Hemodialysis, CONTINUOUS, Starting on Marylu 07/20/23 at 0745, Until Marylu 07/20/23 at 1440, Maintenance: Stop 1 hour before dialysis end in AVF/AVG. Continue through dialysis in CVC. The total delivered dose is approximately 2,500 to 5,000 units, based on weight and treatment duration assumptions New Bag 07/20/2023 9:08 AM EST 500 Units/hr 0.5 mL/hr hEParin 1000 UNIT/ML inj 2,000 Units 2,000 Units, Intravenous, ONCE, On Marylu 07/20/23 at 0745, For 1 dose, Loading dose Given 07/20/2023 9:07 AM EST 2,000 Units sodium citrate 4% (Anticoagulant Sodium Citrate) inj 2.5 mL 2.5 mL, Dialysis catheter, ONCE, On Marylu 07/20/23 at 0745, For 1 dose, ARTERIAL For use only to lock dialysis catheter after dialysis Given 07/20/2023 9:09 AM EST 2.5 mL sodium citrate 4% (Anticoagulant Sodium Citrate) inj 2.5 mL 2.5 mL, Dialysis catheter, ONCE, On Marylu 07/20/23 at 0745, For 1 dose, VENOUS For use only to lock dialysis catheter after dialysis Given 07/20/2023 9:09 AM EST 2.5 mL documented in this [...] Advance Directives occurred with: Patient Care Teams Ship Fitter Relationship Specialty Start Date End Date Tomer Garner MD [address] [place] [address] PCP - General 09/19/02 documented as of this encounter
--- OUTSIDE RECORDS SUMMARY | 2024-03-17 14:40 | External Medical Summary | Summary of Care ---
Author Name Unknown Organization [facility] Address [address] [place] [address] Phone [phone] Care Team Providers Care Patch Driller Name Role Phone Tomer Garner MD Primary Care Provider [phone] Reason for Visit * Reason Comments Hemodialysis * Episode Based Medications (Routine) - Authorized Specialty Diagnoses / Procedures Referred By Contac t Referred To Contact Diagnoses ESRD on peritoneal dialysis (HCC) Anemia in stage 5 chronic kidney disease, not on chronic dialysis Procedures [place] EPOETIN SLOAN, NON-ESRD NH EPOETIN SLOAN, 100 UNITS ESRD Yonny Saldivar MD [address] [place] [address] [address] [place] [id number] Referral ID Status Reason Start Date Expiration Date V isits Requested Visits Authorized [id number] Authorized 08/22/2023 02/21/2024 999 0 Encounter Details Date Type Department Care Team (Late st Contact Info) Description 07/20/2023 5:30 AM EST Treatment Hemodialysis [facility] [address] [place] [id number] ESRD (end stage renal disease) (HCC)*; Anemia of chronic renal failure, stage 5 ; Anemia in chronic kidney disease, on chronic dialysis (HCC); Anemia in chronic renal disease; Anemia in stage 5 chronic kidney disease, not on chronic dialysis Allergies No known active allergiesdocumented as of this encounter (statuses as of 09/22/2023) Medications Medication Sig Dispensed Refills Start Date [...] as of this encounter (statuses as of 09/22/2023) Active Problems Problem Noted Date Diagnosed Date [...] as of this encounter (statuses as of 09/22/2023) Resolved Problems Problem Noted Date Diagnosed Date Resolved Date Dyslipidemia, goal to be determined 08/27/2009 11/21/2013 Overview: Per Lipid Taxonomy. PURE HYPERCHOLESTEROLEM 04/25/200208/11 Overview: Per Lipid Taxonomy. 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 1 Hemoptysis 04/11/1996 08/11/1996 Overview: ICD-10 update of inactive term documented as of this encounter (statuses as of 09/22/2023) Immunizations Name Administration Dates Next Due COVID-19 mRNA, LNP-s, No Pre serve, 2-Dose Series (Moderna) 11/23/2020,10/18/2020 DTP Vaccine 1981,1981,1981 HEP B - Hepatitis B (Dialysis/Immumocomp Pt) 05/02/2023,04/04/2023 MMR - Measles/Mumps/Rubella Vaccine 05/11/1982 OPV - Polio Virus Vaccine (Oral) 1981,04/11 Pneumococcal Conjugate Vacci ne, 20-valent ([id number]) 11/17/2022 Seasonal Influenza, PF, 6 M & [...] [address] [place] [id number] 09/26/2023 5:30 AM EST Treatment Hemodialysis [facility] [address] [place] [id number] 09/28/2023 5:30 AM EST Treatment Hemodialysis [facility] [address] [place] [id number] 09/30/2023 5:30 AM EST Treatment Hemodialysis [facility] [address] [place] [id number] 10/03/2023 5:30 AM EST Treatment Hemodialysis [facility] [address] [id number] 10/04/2023 2:30 PM EST Office Visit Rheumatology, [facility] [address] [facility] [place] [address] Kori Scott MD [address] [place] [address] 10/05/2023 5:30 AM EST Treatment Hemodialysis [facility] [address] [place] [id number] 10/07/2023 5:30 AM EST Treatment Hemodialysis [facility] [address] [id number] 10/10/2023 5:30 AM EST Treatment Hemodialysis [address] [id number] Health Maintenance Due Date Last Done Comments [...] Diagnoses Diagnosis ESRD (end stage renal disease) ([facility])- Primary End stage renal disease Anemia of [...] 9:08 AM EST 4 mcg Epoetin Sloan [address]196 UNIT/ML inj 9,000 Units 9,000 Units, Intravenous, [...] Advance Directives occurred with: Patient Care Teams Patch Driller Relationship Specialty Start Date End Date Tomer Garner MD [address] [place] [address] PCP - General 09/19/02 documented as of this encounter
--- OUTSIDE RECORDS SUMMARY | 2024-03-17 14:40 | External Medical Summary | Summary of Care ---
Author Name Unknown Organization [facility] Address [address] [place] [address] Phone [phone] Care Team Providers Care Forensic Dna Analyst Name Role Phone Tomer Garner MD Primary Care Provider Reason for Visit * Episode Based Medications (Routine) - Authorized Specialty Diagnoses / Procedures Referred By Conternestina t Referred To Contact Diagnoses ESRD on peritoneal dialysis (HCC) Anemia in stage 5 chronic kidney disease, not on chronic dialysis Procedures CT EPOETIN SLOAN, NON-ESRD CT EPOETIN SLOAN, 100 UNITS ESRD Yonny Saldivar MD [address] [place] [address] [address] [place] [address] Referral ID Status Reason Start Date Expiration Date V isits Requested Visits Authorized [id number] Authorized 08/22/2023 02/21/2024 999 0 Encounter Details [...] (Oral) 1981,04/11 Pneumococcal Conjugate Vacci ne, 20-valent ([id number]) 11/17/2022 Pneumococcal Polysaccharide PPV23 (Pneumovax) 02/03/2004 Seasonal [...] [facility] [address] [id number] 09/26/2023 5:30 AM EST Treatment Hemodialysis [address], [place] [address] 09/28/2023 5:30 AM EST Treatment Hemodialysis [address], [place] [address] 09/30/2023 5:30 AM EST Treatment Hemodialysis [address], [place] [address] 10/03/2023 5:30 AM EST Treatment Hemodialysis [address], [place] [address] 10/04/2023 2:30 PM EST Office Visit Rheumatology, [facility] [address] [facility] [place] [address] Kori Scott MD [address] [place] [facility] [place] [address] 10/05/2023 5:30 AM EST Treatment Hemodialysis [address], [place] [address] 10/07/2023 5:30 AM EST Treatment Hemodialysis [address], [place] [address] 10/10/2023 5:30 AM EST Treatment Hemodialysis [address], [place] [address] Health Maintenance Due Date Last Done Comments [...] 1.38 >=1.30 07/25/2023 5:31 PM EST [facility] nPNA 1.113 07/25/2023 5:31 PM EST [facility] Urea Reduction Ratio 69 % 07/25/2023 5:31 PM EST [facility] Ultra Filtration Volume 4.0 L 07/25/2023 5:31 PM EST [facility] Dialysis Session Length 4.0 hours 07/25/2023 5:31 PM EST [facility] Blood Venous blood specimen / Unknown Venipuncture / Unknown 07/25/2023 10:45 AM EST 07/25/2023 10:45 AM EST Yonny Saldivar MD LAB BLOOD ORDERAB LES Performing Organization Address City/[facility]/ZIP Co de Phone Number LABORATORY C [address] [place] [address] * (ABNORMAL) PTH (07/25/2023 6:01 AM EST) PTH 395(H) 15 - 65 pg/mL 07/25/2023 9:22 AM EST [facility] Blood Venous blood specimen / Unknown Venipuncture / Unknown 07/25/2023 6:01 AM EST 07/25/2023 6:01 AM EST Yonny Saldivar MD LAB BLOOD ORDERAB LES [facility] [address] [place] [address] * (ABNORMAL) FERRITIN (07/25/2023 6:01 AM EST) Ferritin 588(H) 30 - 400 ng/mL 07/25/2023 9:22 AM EST [facility] Blood Venous blood specimen / Unknown Venipuncture / Unknown 07/25/2023 6:01 AM EST 07/25/2023 6:01 AM EST Yonny Saldivar MD LAB BLOOD ORDERAB LES Performing Organization Address City/[facility] Co de Phone Number [facility]ORATORY [facility] [address] [place] [address] * ALKALINE PHOSPHATASE (07/25/2023 6:01 AM EST) Alkaline Phosphatase 78 35 - 130 U/L 07/25/2023 8:16 AM EST [facility] Blood Venous blood specimen / Unknown Venipuncture / Unknown 07/25/2023 6:01 AM EST 07/25/2023 6:01 AM EST Yonny Saldivar MD LAB BLOOD ORDERAB LES Performing Organization Address [facility] de Phone Number [facility]ORATORY [facility] [address] [place] [address] * HEPATITIS B SURFACE ANTIGEN (07/25/2023 6:01 AM EST) Hepatitis B Surface Antigen Negative Negative 07/25/2023 9:35 AM EST [facility] Blood Venous blood specimen / Unknown Venipuncture / Unknown 07/25/2023 6:01 AM EST 07/25/2023 6:01 AM EST Yonny Saldivar MD LAB BLOOD ORDERAB LES Performing Organization Address [facility] de Phone Number [facility]ORATORY [facility] [address] [place] [address] * IRON SCREEN, INCLUDING TIBC (07/25/2023 6:01 AM EST) Iron 57 45 - 176 ug/dL 07/25/2023 [...] LAB BLOOD ORDERAB LES Performing Organization Address City/[facility]/ZIP Co de Phone Number [facility] [address] [place] [address] * (ABNORMAL) CHLORIDE (07/25/2023 6:01 AM EST) Chloride 95(L) 98 - 107 mmol/L 07/25/2023 8:16 AM EST [facility] Blood Venous blood specimen / Unknown Venipuncture / Unknown 07/25/2023 6:01 AM EST 07/25/2023 6:01 AM EST Yonny Saldivar MD LAB BLOOD ORDERAB LES Performing Organization Address [facility] de Phone Number LABORATORY [facility] [address] [place] [address] * (ABNORMAL) ADJUSTED CALCIUM PHOSPHORUS PRODUCT (07/25/2023 [...] BLOOD ORDERAB LES [facility] [address] [place] [address] * ALT (07/25/2023 6:01 AM EST) ALT 17 10 - 50 U/L 07/25/2023 8:16 AM EST [facility] Blood Venous blood specimen / Unknown Venipuncture / Unknown 07/25/2023 6:01 AM EST 07/25/2023 6:01 AM EST Yonny Saldivar MD LAB BLOOD ORDERAB LES Performing Organization Address City/[facility] Co de Phone Number [facility] [address] [place] [address] * CO2 (07/25/2023 6:01 AM EST) CO2 23 22 - 32 mmol/L 07/25/2023 8:16 AM EST [facility] Blood Venous blood specimen / Unknown Venipuncture / Unknown 07/25/2023 6:01 AM EST 07/25/2023 6:01 AM EST Yonny Saldivar MD LAB BLOOD ORDERAB LES Performing Organization Address City/[facility]/ZIP Co de Phone Number LABOR[facility]ORY [facility] [address] [place] [address] * SODIUM (07/25/2023 6:01 AM EST) Sodium 138 135 - 146 mmol/L 07/25/2023 8:16 AM EST [facility] Blood Venous blood specimen / Unknown Venipuncture / Unknown 07/25/2023 6:01 AM EST 07/25/2023 6:01 AM EST Yonny Saldivar MD LAB BLOOD ORDERAB LES [facility] [address] [place] [address] * PRE DIALYSIS BUN (07/25/2023 6:01 AM EST) Pre-Dialysis BUN 78 mg/dL 07/25/2023 8:10 AM EST [facility] Blood Venous blood specimen / Unknown Venipuncture / Unknown 07/25/2023 6:01 AM EST 07/25/2023 6:01 AM EST Yonny Saldivar MD LAB BLOOD ORDERAB LES [facility] [address] [place] [address] * (ABNORMAL) CBC (07/25/2023 6:01 AM EST) Pathologist [facility] WBC 9.63 4.00 - 10.80 K/uL 07/25/2023 [...] LAB BLOOD ORDERAB LES Performing Organization Address City/[facility]/ZIP Co de Phone Number LABORATORY [facility] [address] [place] [address] * POTASSIUM (07/25/2023 6:01 AM EST) Potassium 5.0 3.5 - 5.1 mmol/L 07/25/2023 8:16 AM EST [facility] Blood Venous blood specimen / Unknown Venipuncture / Unknown 07/25/2023 6:01 AM EST 07/25/2023 6:01 AM EST Yonny Saldivar MD LAB BLOOD ORDERAB LES Performing Organization Address [facility] Co de Phone Number LABORATORY [facility] [address] [place] [address] * AST (07/25/2023 6:01 AM EST) AST 12 10 - 50 U/L 07/25/2023 8:16 AM EST [facility] Blood Venous blood specimen / Unknown Venipuncture / Unknown 07/25/2023 6:01 AM EST 07/25/2023 6:01 AM EST Yonny Saldivar MD LAB BLOOD ORDERAB LES Performing Organization Address City/[facility] de Phone Number LABORATORY [facility] [address] [place] [address] * (ABNORMAL) CREATININE (07/25/2023 6:01 AM EST) Creatinine 14.3(H) 0.6 - 1.2 mg/dL 07/25/2023 8:28 AM EST [facility] Comment:Results rechecked. Estimated Glomerular Filtration Rate 4(L) >=60 mL/min 07/25/2023 8:28 AM EST [facility]OR[facility] Comment:eGFR is calculated b ased on the CKD-EPI 2020 equation Blood Venous blood specimen / Unknown Venipuncture / Unknown 07/25/2023 6:01 AM EST 07/25/2023 6:01 AM EST Yonny Saldivar MD LAB BLOOD ORDERAB LES LAB[facility] [address] [place] [address] documented in this encounter Visit Diagnoses Diagnosis [...] 6:09 AM EST 4 mcg Epoetin Sloan [address] UNIT/ML inj 9,000 Units 9,000 Units, Intravenous, [...] Advance Directives occurred with: Patient Care Teams Forensic Dna Analyst Relationship Specialty Start Date End Date Tomer Garner MD [address] [place] [address] PCP - General 09/19/02 documented as of this encounter
--- OUTSIDE RECORDS SUMMARY | 2024-03-17 14:40 | External Medical Summary | Summary of Care ---
Author Name Unknown Organization [facility] Address [address] [place] [address] Phone [phone] Care Team Providers Care Attorney Name Role Phone Tomer Garner MD Primary Care Provider Reason for Visit * Episode Based Medications (Routine) - Authorized Specialty Diagnoses / Procedures Referred By Conternestina t Referred To Contact Diagnoses ESRD on peritoneal dialysis (HCC) Anemia in stage 5 chronic kidney disease, not on chronic dialysis Procedures ID EPOETIN SLOAN, NON-ESRD ID EPOETIN SLOAN, 100 UNITS ESRD Yonny Saldivar MD [address] [place] [address] [address] [place] [address] Referral ID Status Reason Start Date Expiration Date V isits Requested Visits Authorized [id number] Authorized 08/22/2023 02/21/2024 999 0 Encounter Details [...] (Oral) 1981,04/11 Pneumococcal Conjugate Vacci ne, 20-valent ([id number]) 11/17/2022 Pneumococcal Polysaccharide PPV23 (Pneumovax) 02/03/2004 Seasonal [...] [address] [id number] 09/26/2023 5:30 AM EST Treatment Hemodialysis [address], [place] [address] 09/28/2023 5:30 AM EST Treatment Hemodialysis [address], [place] [address] 09/30/2023 5:30 AM EST Treatment Hemodialysis [address], [place] [address] 10/03/2023 5:30 AM EST Treatment Hemodialysis [address], [place] [address] 10/04/2023 2:30 PM EST Office Visit Rheumatology, [facility] [address] [facility] [place] [address] Kori Scott MD [address] [place] [facility] [place] [address] 10/05/2023 5:30 AM EST Treatment Hemodialysis [address], [place] [address] 10/07/2023 5:30 AM EST Treatment Hemodialysis [address], [place] [address] 10/10/2023 5:30 AM EST Treatment Hemodialysis [address], [place] [address] Health Maintenance Due Date Last Done Comments [...] LAB BLOOD ORDERAB LES Performing Organization Address City/[facility]/ZIP Co de Phone Number LABORATORY C [address] [place] [address] * (ABNORMAL) PTH (07/25/2023 6:01 AM EST) PTH 395(H) 15 - 65 pg/mL 07/25/2023 9:22 AM EST [facility] Blood Venous blood specimen / Unknown Venipuncture / Unknown 07/25/2023 6:01 AM EST 07/25/2023 6:01 AM EST Yonny Saldivar MD LAB BLOOD ORDERAB LES [facility] [address] [place] [address] * (ABNORMAL) FERRITIN (07/25/2023 6:01 AM EST) Ferritin 588(H) 30 - 400 ng/mL 07/25/2023 9:[address] [facility] Blood Venous blood specimen / Unknown Venipuncture / Unknown 07/25/2023 6:01 AM EST 07/25/2023 6:01 AM EST Yonny Saldivar MD LAB BLOOD ORDERAB LES Performing Organization Address City/[facility] Co de Phone Number LABORATORY [facility] [address] [place] [address] * ALKALINE PHOSPHATASE (07/25/2023 6:01 AM EST) Alkaline Phosphatase 78 35 - 130 U/L 07/25/2023 8:[address] [facility] Blood Venous blood specimen / Unknown Venipuncture / Unknown 07/25/2023 6:01 AM EST 07/25/2023 6:01 AM EST Yonny Saldivar MD LAB BLOOD ORDERAB LES Performing Organization Address [facility] de Phone Number LABORATORY [facility] [address] [place] [address] * HEPATITIS B SURFACE ANTIGEN (07/25/2023 6:01 AM EST) Hepatitis B Surface Antigen Negative Negative 07/25/2023 9:[address] [facility] Blood Venous blood specimen / Unknown Venipuncture / Unknown 07/25/2023 6:01 AM EST 07/25/2023 6:01 AM EST Yonny Saldivar MD LAB BLOOD ORDERAB LES Performing Organization Address [facility] de Phone Number LABORATORY [facility] [address] [place] [address] * IRON SCREEN, INCLUDING TIBC (07/25/2023 6:01 [...] LAB BLOOD ORDERAB LES Performing Organization Address City/[facility]/ZIP Co de Phone Number LAB[facility]ATORY [facility] [address] [place] [address] * (ABNORMAL) CHLORIDE (07/25/2023 6:01 AM EST) Chloride 95(L) 98 - 107 mmol/L 07/25/2023 8:16 AM EST [facility] Blood Venous blood specimen / Unknown Venipuncture / Unknown 07/25/2023 6:01 AM EST 07/25/2023 6:01 AM EST Yonny Saldivar MD LAB BLOOD ORDERAB LES Performing Organization Address [facility] de Phone Number LABORATORY [facility] [address] [place] [address] * (ABNORMAL) ADJUSTED CALCIUM PHOSPHORUS PRODUCT (07/25/2023 [...] BLOOD ORDERAB LES [facility] [address] [place] [address] * ALT (07/25/2023 6:01 AM EST) ALT 17 10 - 50 U/L 07/25/2023 8:16 AM EST [facility] Blood Venous blood specimen / Unknown Venipuncture / Unknown 07/25/2023 6:01 AM EST 07/25/2023 6:01 AM EST Yonny Saldivar MD LAB BLOOD ORDERAB LES Performing Organization Address City/[facility] Co de Phone Number LAB[facility]ATORY [facility] [address] [place] [address] * CO2 (07/25/2023 6:01 AM EST) CO2 23 22 - 32 mmol/L 07/25/2023 8:16 AM EST [facility] Blood Venous blood specimen / Unknown Venipuncture / Unknown 07/25/2023 6:01 AM EST 07/25/2023 6:01 AM EST Yonny Saldivar MD LAB BLOOD ORDERAB LES Performing Organization Address City/[facility]/ZIP Co de Phone Number LABORATORY [facility] [address] [place] [address] * SODIUM (07/25/2023 6:01 AM EST) Sodium 138 135 - 146 mmol/L 07/25/2023 8:16 AM EST [facility] Blood Venous blood specimen / Unknown Venipuncture / Unknown 07/25/2023 6:01 AM EST 07/25/2023 6:01 AM EST Yonny Saldivar MD LAB BLOOD ORDERAB LES [facility] [address] [place] [address] * PRE DIALYSIS BUN (07/25/2023 6:01 AM EST) Pre-Dialysis BUN 78 mg/dL 07/25/2023 8:10 AM EST [facility] Blood Venous blood specimen / Unknown Venipuncture / Unknown 07/25/2023 6:01 AM EST 07/25/2023 6:01 AM EST Yonny Saldivar MD LAB BLOOD ORDERAB LES [facility] [address] [place] [address] * (ABNORMAL) CBC (07/25/2023 6:01 AM EST) Pathologist [facility] WBC 9.63 4.00 - 10.80 K/uL 07/25/2023 [...] LAB BLOOD ORDERAB LES Performing Organization Address City/[facility]/ZIP Co de Phone Number LABORATORY [facility] [address] [place] [address] * POTASSIUM (07/25/2023 6:01 AM EST) Potassium 5.0 3.5 - 5.1 mmol/L 07/25/2023 8:[address] [facility] Blood Venous blood specimen / Unknown Venipuncture / Unknown 07/25/2023 6:01 AM EST 07/25/2023 6:01 AM EST Yonny Saldivar MD LAB BLOOD ORDERAB LES Performing Organization Address [facility] Co de Phone Number LABORATORY [facility] [address] [place] [address] * AST (07/25/2023 6:01 AM EST) AST 12 10 - 50 U/L 07/25/2023 8:[address] [facility] Blood Venous blood specimen / Unknown Venipuncture / Unknown 07/25/2023 6:01 AM EST 07/25/2023 6:01 AM EST Yonny Saldivar MD LAB BLOOD ORDERAB LES Performing Organization Address City/[facility] de Phone Number LABORATORY [facility] [address] [place] [address] * (ABNORMAL) CREATININE (07/25/2023 6:01 AM EST) Creatinine 14.3(H) 0.6 - 1.2 mg/dL 07/25/2023 8:[address] [facility] Comment:Results rechecked. Estimated Glomerular Filtration Rate 4(L) >=60 mL/min 07/25/2023 8:[address] [facility] Comment:eGFR is calculated b ased on the CKD-EPI 2020 equation Blood Venous blood specimen / Unknown Venipuncture / Unknown 07/25/2023 6:01 AM EST 07/25/2023 6:01 AM EST Yonny Saldivar MD LAB BLOOD ORDERAB LES LABORATORY [facility] [address] [place] [address] documented in this encounter Visit Diagnoses Diagnosis [...] 6:09 AM EST 4 mcg Epo[address] [place] [address] UNIT/ML inj 9,000 Units 9,000 Units, Intravenous, [...] Advance Directives occurred with: Patient Care Teams Attorney Relationship Specialty Start Date End Date Tomer Garner MD [address] [place] [address] PCP - General 09/19/02 documented as of this encounter
--- OUTSIDE RECORDS SUMMARY | 2024-03-17 14:40 | External Medical Summary | Summary of Care ---
Author Name Unknown Organization [facility] Address [address] [place] [address] Phone [phone] Care Team Providers Care Costume Rental Clerk Name Role Phone Tomer Garner MD Primary Care Provider Reason for Visit * Episode Based Medications (Routine) - Authorized Specialty Diagnoses / Procedures Referred By Conternestina t Referred To Contact Diagnoses ESRD on peritoneal dialysis (HCC) Anemia in stage 5 chronic kidney disease, not on chronic dialysis Procedures AR EPOETIN SLOAN, NON-ESRD AR EPOETIN SLOAN, 100 UNITS ESRD Yonny Saldivar MD [address] [place] [address] [place] [address] Referral ID Status Reason Start Date Expiration Date V isits Requested Visits Authorized [id number] Authorized 08/22/2023 02/21/2024 999 0 Encounter Details [...] (Oral) 1981,04/11 Pneumococcal Conjugate Vacci ne, 20-valent ([id number]) 11/17/2022 Pneumococcal Polysaccharide PPV23 (Pneumovax) 02/03/2004 Seasonal [...] [address] [id number] 09/26/2023 5:30 AM EST Treatment Hemodialysis [address], [place] [address] 09/28/2023 5:30 AM EST Treatment Hemodialysis [address], [place] [address] 09/30/2023 5:30 AM EST Treatment Hemodialysis [address], [place] [address] 10/03/2023 5:30 AM EST Treatment Hemodialysis [address], [place] [address] 10/04/2023 2:30 PM EST Office Visit Rheumatology, [place] [address] [facility] [place] [address] Kori Scott MD [address] [place] [facility] [address] 10/05/2023 5:30 AM EST Treatment Hemodialysis [address], [place] [address] 10/07/2023 5:30 AM EST Treatment Hemodialysis [address], [place] [address] 10/10/2023 5:30 AM EST Treatment Hemodialysis [address], [place] [address] Health Maintenance Due Date Last Done Comments [...] LAB BLOOD ORDERAB LES Performing Organization Address City/[facility]/ZIP Co de Phone Number LABORATORY C [address] [place] [address] * (ABNORMAL) PTH (07/25/2023 6:01 AM EST) PTH 395(H) 15 - 65 pg/mL 07/25/2023 9:22 AM EST [facility] Blood Venous blood specimen / Unknown Venipuncture / Unknown 07/25/2023 6:01 AM EST 07/25/2023 6:01 AM EST Yonny Saldivar MD LAB BLOOD ORDERAB LES [facility] [address] [place] [address] * (ABNORMAL) FERRITIN (07/25/2023 6:01 AM EST) Ferritin 588(H) 30 - 400 ng/mL 07/25/2023 9:22 AM EST LABORATORY [facility] Blood Venous blood specimen / Unknown Venipuncture / Unknown 07/25/2023 6:01 AM EST 07/25/2023 6:01 AM EST Yonny Saldivar MD LAB BLOOD ORDERAB LES Performing Organization Address City/[facility] Co de Phone Number LABORATORY [facility] [address] [place] [address] * ALKALINE PHOSPHATASE (07/25/2023 6:01 AM EST) Alkaline Phosphatase 78 35 - 130 U/L 07/25/2023 8:16 AM EST LABORATORY [facility] Blood Venous blood specimen / Unknown Venipuncture / Unknown 07/25/2023 6:01 AM EST 07/25/2023 6:01 AM EST Yonny Saldivar MD LAB BLOOD ORDERAB LES Performing Organization Address [facility] de Phone Number LABORATORY [facility] [address] [place] [address] * HEPATITIS B SURFACE ANTIGEN (07/25/2023 6:01 AM EST) Hepatitis B Surface Antigen Negative Negative 07/25/2023 9:35 AM EST LABORATORY [facility] Blood Venous blood specimen / Unknown Venipuncture / Unknown 07/25/2023 6:01 AM EST 07/25/2023 6:01 AM EST Yonny Saldivar MD LAB BLOOD ORDERAB LES Performing Organization Address [facility] de Phone Number LABORATORY [facility] [address] [place] [address] * IRON SCREEN, INCLUDING TIBC (07/25/2023 6:01 [...] LAB BLOOD ORDERAB LES Performing Organization Address City/[facility]/ZIP Co de Phone Number LAB[facility]ATORY [facility] [address] [place] [address] * (ABNORMAL) CHLORIDE (07/25/2023 6:01 AM EST) Chloride 95(L) 98 - 107 mmol/L 07/25/2023 8:16 AM EST [facility] Blood Venous blood specimen / Unknown Venipuncture / Unknown 07/25/2023 6:01 AM EST 07/25/2023 6:01 AM EST Yonny Saldivar MD LAB BLOOD ORDERAB LES Performing Organization Address [facility] de Phone Number LABORATORY [facility] [address] [place] [address] * (ABNORMAL) ADJUSTED CALCIUM PHOSPHORUS PRODUCT (07/25/2023 [...] BLOOD ORDERAB LES [facility] [address] [place] [address] * ALT (07/25/2023 6:01 AM EST) ALT 17 10 - 50 U/L 07/25/2023 8:16 AM EST [facility] Blood Venous blood specimen / Unknown Venipuncture / Unknown 07/25/2023 6:01 AM EST 07/25/2023 6:01 AM EST Yonny Saldivar MD LAB BLOOD ORDERAB LES Performing Organization Address City/[facility] Co de Phone Number LAB[facility]ATORY [facility] [address] [place] [address] * CO2 (07/25/2023 6:01 AM EST) CO2 23 22 - 32 mmol/L 07/25/2023 8:16 AM EST [facility] Blood Venous blood specimen / Unknown Venipuncture / Unknown 07/25/2023 6:01 AM EST 07/25/2023 6:01 AM EST Yonny Saldivar MD LAB BLOOD ORDERAB LES Performing Organization Address City/[facility]/ZIP Co de Phone Number LABORATORY [facility] [address] [place] [address] * SODIUM (07/25/2023 6:01 AM EST) Sodium 138 135 - 146 mmol/L 07/25/2023 8:16 AM EST [facility] Blood Venous blood specimen / Unknown Venipuncture / Unknown 07/25/2023 6:01 AM EST 07/25/2023 6:01 AM EST Yonny Saldivar MD LAB BLOOD ORDERAB LES [facility] [address] [place] [address] * PRE DIALYSIS BUN (07/25/2023 6:01 AM EST) Pre-Dialysis BUN 78 mg/dL 07/25/2023 8:10 AM EST [facility] Blood Venous blood specimen / Unknown Venipuncture / Unknown 07/25/2023 6:01 AM EST 07/25/2023 6:01 AM EST Yonny Saldivar MD LAB BLOOD ORDERAB LES [facility] [address] [place] [address] * (ABNORMAL) CBC (07/25/2023 6:01 AM EST) Pathologist [facility] WBC 9.63 4.00 - 10.80 K/uL 07/25/2023 [...] LAB BLOOD ORDERAB LES Performing Organization Address City/[facility]/ZIP Co de Phone Number LABORATORY [facility] [address] [place] [address] * POTASSIUM (07/25/2023 6:01 AM EST) Potassium 5.0 3.5 - 5.1 mmol/L 07/25/2023 8:16 AM EST LABORATORY [facility] Blood Venous blood specimen / Unknown Venipuncture / Unknown 07/25/2023 6:01 AM EST 07/25/2023 6:01 AM EST Yonny Saldivar MD LAB BLOOD ORDERAB LES Performing Organization Address [facility] Co de Phone Number LABORATORY [facility] [address] [place] [address] * AST (07/25/2023 6:01 AM EST) AST 12 10 - 50 U/L 07/25/2023 8:16 AM EST LABORATORY [facility] Blood Venous blood specimen / Unknown Venipuncture / Unknown 07/25/2023 6:01 AM EST 07/25/2023 6:01 AM EST Yonny Saldivar MD LAB BLOOD ORDERAB LES Performing Organization Address City/[facility] de Phone Number LABORATORY [facility] [address] [place] [address] * (ABNORMAL) CREATININE (07/25/2023 6:01 AM EST) Creatinine 14.3(H) 0.6 - 1.2 mg/dL 07/25/2023 8:28 AM EST LABORATORY [facility] Comment:Results rechecked. Estimated Glomerular Filtration Rate 4(L) >=60 mL/min 07/25/2023 8:28 AM EST LABORATORY [facility] Comment:eGFR is calculated b ased on the CKD-EPI 2020 equation Blood Venous blood specimen / Unknown Venipuncture / Unknown 07/25/2023 6:01 AM EST 07/25/2023 6:01 AM EST Yonny Saldivar MD LAB BLOOD ORDERAB LES LABORATORY [facility] [address] [place] [address] documented in this encounter Visit Diagnoses Diagnosis [...] 6:09 AM EST 4 mcg Epoetin [place]loan [id number] UNIT/ML inj 9,000 Units 9,000 Units, Intravenous, [...] Advance Directives occurred with: Patient Care Teams Costume Rental Clerk Relationship Specialty Start Date End Date Tomer Garner MD [address] [place] [address] PCP - General 09/19/02 documented as of this encounter
--- OUTSIDE RECORDS SUMMARY | 2024-03-17 14:40 | External Medical Summary | Summary of Care ---
Author Name Unknown Organization [facility] Address [address] [place] [address] Phone [phone] Care Team Providers Care Plastic Injection Mold Maker Name Role Phone Tomer Garner MD Primary Care Provider Reason for Visit * Episode Based Medications (Routine) - Authorized Specialty Diagnoses / Procedures Referred By Conternestina t Referred To Contact Diagnoses ESRD on peritoneal dialysis (HCC) Anemia in stage 5 chronic kidney disease, not on chronic dialysis Procedures [place] EPOETIN SLOAN, NON-ESRD [place] EPOETIN SLOAN, 100 UNITS ESRD Yonny Saldivar MD [address] [place] [address] [address] [place] [address] Referral ID Status Reason Start Date Expiration Date V isits Requested Visits Authorized [id number] Authorized 08/22/2023 02/21/2024 999 0 Encounter Details [...] (Oral) 1981,04/11 Pneumococcal Conjugate Vacci ne, 20-valent ([id number]) 11/17/2022 Pneumococcal Polysaccharide PPV23 (Pneumovax) 02/03/2004 Seasonal [...] [address] [id number] 09/26/2023 5:30 AM EST Treatment Hemodialysis [address] [place], [place] [address] 09/28/2023 5:30 AM EST Treatment Hemodialysis [facility] [address] [place], [place] [address] 09/30/2023 5:30 AM EST Treatment Hemodialysis [facility] [address] [place], [place] [address] 10/03/2023 5:30 AM EST Treatment Hemodialysis [address] [place], [place] [address] 10/04/2023 2:30 PM EST Office Visit Rheumatology, [facility] [address] [facility] [place] [address] Kori Scott MD [address] [place] [facility] [place] [address] 10/05/2023 5:30 AM EST Treatment Hemodialysis [address] [place], [place] [address] 10/07/2023 5:30 AM EST Treatment Hemodialysis [address] [place], [place] [address] 10/10/2023 5:30 AM EST Treatment Hemodialysis [address] [place], [place] [address] Health Maintenance Due Date Last Done Comments [...] LAB BLOOD ORDERAB LES Performing Organization Address City/[facility]/ZIP Co de Phone Number LABORATORY C [address] [place] [address] * (ABNORMAL) PTH (07/25/2023 6:01 AM EST) PTH 395(H) 15 - 65 pg/mL 07/25/2023 9:22 AM EST LABORATORY [facility] Blood Venous blood specimen / Unknown Venipuncture / Unknown 07/25/2023 6:01 AM EST 07/25/2023 6:01 AM EST Yonny Saldivar MD LAB BLOOD ORDERAB LES [facility] [address] [place] [address] * (ABNORMAL) FERRITIN (07/25/2023 6:01 AM EST) Ferritin 588(H) 30 - 400 ng/mL 07/25/2023 9:22 AM EST LABORATORY [facility] Blood Venous blood specimen / Unknown Venipuncture / Unknown 07/25/2023 6:01 AM EST 07/25/2023 6:01 AM EST Yonny Saldivar MD LAB BLOOD ORDERAB LES Performing Organization Address City/[facility] Co de Phone Number LABORATORY [facility] [address] [place] [address] * ALKALINE PHOSPHATASE (07/25/2023 6:01 AM EST) Alkaline Phosphatase 78 35 - 130 U/L 07/25/2023 8:16 AM EST LABORATORY [facility] Blood Venous blood specimen / Unknown Venipuncture / Unknown 07/25/2023 6:01 AM EST 07/25/2023 6:01 AM EST Yonny Saldivar MD LAB BLOOD ORDERAB LES Performing Organization Address [facility] de Phone Number LABORATORY [facility] [address] [place] [address] * HEPATITIS B SURFACE ANTIGEN (07/25/2023 6:01 AM EST) Hepatitis B Surface Antigen Negative Negative 07/25/2023 9:35 AM EST LABORATORY [facility] Blood Venous blood specimen / Unknown Venipuncture / Unknown 07/25/2023 6:01 AM EST 07/25/2023 6:01 AM EST Yonny Saldivar MD LAB BLOOD ORDERAB LES Performing Organization Address [facility] de Phone Number LABORATORY [facility] [address] [place] [address] * IRON SCREEN, INCLUDING TIBC (07/25/2023 6:01 [...] LAB BLOOD ORDERAB LES Performing Organization Address City/[facility]/ZIP Co de Phone Number LABORATORY [facility] [address] [place] [address] * (ABNORMAL) CHLORIDE (07/25/2023 6:01 AM EST) Chloride 95(L) 98 - 107 mmol/L 07/25/2023 8:16 AM EST LAB[facility]ATORY [facility] Blood Venous blood specimen / Unknown Venipuncture / Unknown 07/25/2023 6:01 AM EST 07/25/2023 6:01 AM EST Yonny Saldivar MD LAB BLOOD ORDERAB LES Performing Organization Address [facility] de Phone Number LABORATORY [facility] [address] [place] [address] * (ABNORMAL) ADJUSTED CALCIUM PHOSPHORUS PRODUCT (07/25/2023 [...] BLOOD ORDERAB LES [facility] [address] [place] [address] * ALT (07/25/2023 6:01 AM EST) ALT 17 10 - 50 U/L 07/25/2023 8:16 AM EST LAB[facility]ATORY [facility] Blood Venous blood specimen / Unknown Venipuncture / Unknown 07/25/2023 6:01 AM EST 07/25/2023 6:01 AM EST Yonny Saldivar MD LAB BLOOD ORDERAB LES Performing Organization Address City/[facility] Co de Phone Number LABORATORY [facility] [address] [place] [address] * CO2 (07/25/2023 6:01 AM EST) CO2 23 22 - 32 mmol/L 07/25/2023 8:16 AM EST LAB[facility]ORY [facility] Blood Venous blood specimen / Unknown Venipuncture / Unknown 07/25/2023 6:01 AM EST 07/25/2023 6:01 AM EST Yonny Saldivar MD LAB BLOOD ORDERAB LES Performing Organization Address City/[facility]/ZIP Co de Phone Number LABORATORY [facility] [address] [place] [address] * SODIUM (07/25/2023 6:01 AM EST) Sodium 138 135 - 146 mmol/L 07/25/2023 8:16 AM EST LAB[facility]ORY [facility] Blood Venous blood specimen / Unknown Venipuncture / Unknown 07/25/2023 6:01 AM EST 07/25/2023 6:01 AM EST Yonny Saldivar MD LAB BLOOD ORDERAB LES [facility] [address] [place] [address] * PRE DIALYSIS BUN (07/25/2023 6:01 AM EST) Pre-Dialysis BUN 78 mg/dL 07/25/2023 8:10 AM EST LAB[facility]ATORY [facility] Blood Venous blood specimen / Unknown Venipuncture / Unknown 07/25/2023 6:01 AM EST 07/25/2023 6:01 AM EST Yonny Saldivar MD LAB BLOOD ORDERAB LES [facility] [address] [place] [address] * (ABNORMAL) CBC (07/25/2023 6:01 AM EST) Pathologist [facility] WBC 9.63 4.00 - 10.80 K/uL 07/25/2023 [...] LAB BLOOD ORDERAB LES Performing Organization Address City/[facility]/ZIP Co de Phone Number LABORATORY [facility] [address] [place] [address] * POTASSIUM (07/25/2023 6:01 AM EST) Potassium 5.0 3.5 - 5.1 mmol/L 07/25/2023 8:16 AM EST LABORATORY [facility] Blood Venous blood specimen / Unknown Venipuncture / Unknown 07/25/2023 6:01 AM EST 07/25/2023 6:01 AM EST Yonny Saldivar MD LAB BLOOD ORDERAB LES Performing Organization Address [facility] Co de Phone Number LABORATORY [facility] [address] [place] [address] * AST (07/25/2023 6:01 AM EST) AST 12 10 - 50 U/L 07/25/2023 8:16 AM EST LABORATORY [facility] Blood Venous blood specimen / Unknown Venipuncture / Unknown 07/25/2023 6:01 AM EST 07/25/2023 6:01 AM EST Yonny Saldivar MD LAB BLOOD ORDERAB LES Performing Organization Address City/[facility] de Phone Number LABORATORY [facility] [address] [place] [address] * (ABNORMAL) CREATININE (07/25/2023 6:01 AM EST) Creatinine 14.3(H) 0.6 - 1.2 mg/dL 07/25/2023 8:28 AM EST LABORATORY [facility] Comment:Results rechecked. Estimated Glomerular Filtration Rate 4(L) >=60 mL/min 07/25/2023 8:28 AM EST LABORATORY [facility] Comment:eGFR is calculated b ased on the CKD-EPI 2020 equation Blood Venous blood specimen / Unknown Venipuncture / Unknown 07/25/2023 6:01 AM EST 07/25/2023 6:01 AM EST Yonny Saldivar MD LAB BLOOD ORDERAB LES LABORATORY [facility] [address] [place] [address] documented in this encounter Visit Diagnoses Diagnosis [...] 6:09 AM EST 4 mcg Epoetin [place] [address] UNIT/ML inj 9,000 Units 9,000 Units, Intravenous, [...] Advance Directives occurred with: Patient Care Teams Plastic Injection Mold Maker Relationship Specialty Start Date End Date Tomer Garner MD [address] [place] [address] PCP - General 09/19/02 documented as of this encounter
--- OUTSIDE RECORDS SUMMARY | 2024-03-17 14:40 | External Medical Summary | Summary of Care ---
Author Name Unknown Organization [facility] Address [address] [place] [address] Phone [phone] Care Team Providers Care Welding Manager Name Role Phone Tomer Garner MD [...] UNITS ESRD Yonny Saldivar MD [address] [place] [address] [place] [address] Referral ID Status Reason Start Date Expiration Date V isits Requested Visits Authorized [id number] Authorized 08/22/2023 02/21/2024 999 0 Encounter Details Date Type Department Care Team (Late st Contact Info) Description 09/21/2023 5:30 AM EST Treatment Hemodialysis [facility] [...] (Oral) 1981,04/11 Pneumococcal Conjugate Vacci ne, 20-valent ([id number]) 11/17/2022 Seasonal Influenza, PF, 6 M & [...] [address] [place] [address] 09/26/2023 5:30 AM EST Treatment Hemodialysis [facility] [address] [place] [address] 09/28/2023 5:30 AM EST Treatment Hemodialysis [facility] [address] [place] [address] 09/30/2023 5:30 AM EST Treatment Hemodialysis [facility] [address] [place] [address] 10/03/2023 5:30 AM EST Treatment Hemodialysis [facility] [address] [place] [address] 10/04/2023 2:30 PM EST Office Visit Rheumatology, [facility] [address] [place] [address] [place] [address] Kori Scott MD [address] [place] [address] 10/05/2023 5:30 AM EST Treatment Hemodialysis [facility] [address] [place] [address] 10/07/2023 5:30 AM EST Treatment Hemodialysis [facility] [address] [id number] 10/10/2023 5:30 AM EST Treatment Hemodialysis [facility] [address] [id number] Health Maintenance Due Date Last Done Comments [...] Diagnoses Diagnosis ESRD (end stage renal disease) ([facility])- Primary End stage renal disease Anemia of chronic renal failure, stage 5 Anemia in chronic kidney disease, on chronic dialysis (HCC) ESRD on peritoneal dialysis ([facility]) End stage renal disease Anemia in stage 5 chronic kidney disease, not on chronic dialysis documented in this encounter Administered Medications Active Administered Medications - up to 3 most recent administrations Medication Order MAR Action Action Date Dose Rate Site hEParin 1,000 unit/mL infusion for dialysis 500 Units/hr (0.5 mL/hr), Hemodialysis, CONTINUOUS, Starting on Marylu 09/21/23 at 0615, Until Discontinued, Maintenance: Stop 1 hour before dialysis end in AVF/AVG. Continue through dialysis in CVC. The total delivered dose is approximately 2,500 to 5,000 units, based on weight and treatment duration assumptions Start Infusion 09/21/2023 5:40 AM EST 500 Units/hr 0.5 mL/hr Inactive Administered Medications - up to 3 most recent administrations Medication Order MAR Action Action Date Dose Rate Site Doxercalciferol (Hectorol) 2 MCG/ML inj 4 mcg 4 mcg, Intravenous, ONCE, On Marylu 09/21/23 at 0615, For 1 dose Given 09/21/2023 6:46 AM EST 4 mcg Epoetin [place] [address] UNIT/ML inj 7,600 Units 7,600 Units, Intravenous, ONCE, On Marylu 09/21/23 at 0615, For 1 dose Given 09/21/2023 6:46 AM EST 7,600 Units hEParin 1000 UNIT/ML [...] Advance Directives occurred with: Patient Care Teams Welding Manager Relationship Specialty Start Date End Date Tomer Garner MD [address] [place] [address] PCP - General 09/19/02 documented as of this encounter
--- OUTSIDE RECORDS SUMMARY | 2024-03-17 14:40 | External Medical Summary | Summary of Care ---
Author Name Unknown Organization [facility] Address [address] [place] [address] Phone [phone] Care Team Providers Care Atg Java Developer Name Role Phone Tomer Garner MD Primary Care Provider [phone] Reason for Visit * Reason Comments Hemodialysis * Episode Based Medications (Routine) - Authorized Specialty Diagnoses / Procedures Referred By Contac t Referred To Contact Diagnoses ESRD on peritoneal dialysis (HCC) Anemia in stage 5 chronic kidney disease, not on chronic dialysis Procedures [place] EPOETIN SLOAN, NON-ESRD [place] EPOETIN SLOAN, 100 UNITS ESRD Yonny Saldivar MD [address] [place] [address] [address] [place] [address] Referral ID Status Reason Start Date Expiration Date V isits Requested Visits Authorized [id number] Authorized 08/22/2023 02/21/2024 999 0 Encounter Details [...] (Oral) 1981,04/11 Pneumococcal Conjugate Vacci ne, 20-valent ([id number]) 11/17/2022 Seasonal Influenza, PF, 6 M & [...] [address] [address] [place] [address] 09/26/2023 5:30 AM EST Treatment Hemodialysis [facility] [address] [place] [address] 09/28/2023 5:30 AM EST Treatment Hemodialysis [facility] [address] [place] [address] 09/30/2023 5:30 AM EST Treatment Hemodialysis [facility] [address] [place] [address] 10/03/2023 5:30 AM EST Treatment Hemodialysis [facility] [address] [id number] 10/04/2023 2:30 PM EST Office Visit Rheumatology, [facility] [address] [place] [facility] [place] [place] [address] Kori Scott MD [address] [place] [address] 10/05/2023 5:30 AM EST Treatment Hemodialysis [facility] [address] [place] [address] 10/07/2023 5:30 AM EST Treatment Hemodialysis [facility] [address] [id number] 10/10/2023 5:30 AM EST Treatment Hemodialysis [facility] [address] [id number] Health Maintenance Due Date Last Done Comments [...] 9:08 AM EST 4 mcg Epoetin [place] [address] UNIT/ML inj 9,000 Units 9,000 Units, Intravenous, [...] Advance Directives occurred with: Patient Care Teams Atg Java Developer Relationship Specialty Start Date End Date Tomer Garner MD [address] [place] [address] PCP - General 09/19/02 documented as of this encounter
--- OUTSIDE RECORDS SUMMARY | 2024-03-17 14:40 | External Medical Summary | Summary of Care ---
Author Name Unknown Organization [facility] Address [address] [place] [address] Phone [phone] Care Team Providers Care Courier Driver Name Role Phone Tomer Garner MD Primary [...] UNITS ESRD Yonny Saldivar MD [address] [place] [address] [place] [address] Referral ID Status Reason Start Date Expiration Date V isits Requested Visits Authorized [id number] Authorized 08/22/2023 02/21/2024 999 0 Encounter Details [...] (Oral) 1981,04/11 Pneumococcal Conjugate Vacci ne, 20-valent ([id number]) 11/17/2022 Seasonal Influenza, PF, 6 M & [...] [facility] [address] [place] [address] 09/26/2023 5:30 AM EST Treatment Hemodialysis [facility] [address] [place] [address] 09/28/2023 5:30 AM EST Treatment Hemodialysis [facility] [address] [place] [address] 09/30/2023 5:30 AM EST Treatment Hemodialysis [facility] [address] [place] [address] 10/03/2023 5:30 AM EST Treatment Hemodialysis [facility] [address] [id number] 10/04/2023 2:30 PM EST Office Visit Rheumatology, [facility] [address] [place] [facility] [place] [address] Kori Scott MD [address] [place] [address] 10/05/2023 5:30 AM EST Treatment Hemodialysis [facility] [address] [place] [address] 10/07/2023 5:30 AM EST Treatment Hemodialysis [facility] [address] [id number] 10/10/2023 5:30 AM EST Treatment Hemodialysis [facility] [address] [id number] Health Maintenance Due Date Last Done Comments [...] ESRD (end stage renal disease) ([facility])- Primary End stage renal disease Anemia [...] 9:08 AM EST 4 mcg Epoetin [place] [address] UNIT/ML inj 9,000 Units 9,000 Units, Intravenous, [...] Advance Directives occurred with: Patient Care Teams Courier Driver Relationship Specialty Start Date End Date Tomer Garner MD [address] [place] [address] PCP - General 09/19/02 documented as of this encounter
--- OUTSIDE RECORDS SUMMARY | 2024-03-17 14:40 | External Medical Summary | Summary of Care ---
Author Name Unknown Organization [facility] Address [address] [place] [address] Phone [phone] Care Team Providers Care Movie Theater Usher Name Role Phone Tomer Garner MD Primary Care Provider [phone] Reason for Visit * Reason Comments Hemodialysis * Episode Based Medications (Routine) - Authorized Specialty Diagnoses / Procedures Referred By Contac t Referred To Contact Diagnoses ESRD on peritoneal dialysis (HCC) Anemia in stage 5 chronic kidney disease, not on chronic dialysis Procedures [place] EPOETIN SLOAN, NON-ESRD [place] EPOETIN SLOAN, 100 UNITS ESRD Ynony Saldivar MD [address] [place] [address] [address] [place] [address] Referral ID Status Reason Start Date Expiration Date V isits Requested Visits Authorized [id number] Authorized 08/22/2023 02/21/2024 999 0 Encounter Details [...] (Oral) 1981,04/11 Pneumococcal Conjugate Vacci ne, 20-valent ([id number]) 11/17/2022 Seasonal Influenza, PF, 6 M & [...] [facility] [address] [place] [address] 09/26/2023 5:30 AM EST Treatment Hemodialysis [facility] [address] [place] [address] 09/28/2023 5:30 AM EST Treatment Hemodialysis [facility] [address] [place] [address] 09/30/2023 5:30 AM EST Treatment Hemodialysis [facility] [address] [place] [address] 10/03/2023 5:30 AM EST Treatment Hemodialysis [facility] [address] [id number] 10/04/2023 2:30 PM EST Office Visit Rheumatology, [facility] [address] [place] [facility] [place] [address] Kori Scott MD [address] [place] [address] 10/05/2023 5:30 AM EST Treatment Hemodialysis [facility] [address] [place] [address] 10/07/2023 5:30 AM EST Treatment Hemodialysis [facility] [address] [id number] 10/10/2023 5:30 AM EST Treatment Hemodialysis [facility] [address] [id number] Health Maintenance Due Date Last Done Comments [...] Diagnoses Diagnosis ESRD (end stage renal disease) ([facility])- Primary End stage renal disease Anemia [...] 4 mcg 4 mcg, Intravenous, ONCE, On Maryul 07/20/23 at 0745, For 1 dose Given 07/20/2023 9:08 AM EST 4 mcg Epoetin [place] [address] UNIT/ML inj 9,000 Units 9,000 Units, Intravenous, [...] Advance Directives occurred with: Patient Care Teams Movie Theater Usher Relationship Specialty Start Date End Date Tomer Garner MD [address] [place] [address] PCP - General 09/19/02 documented as of this encounter
--- OUTSIDE RECORDS SUMMARY | 2024-03-17 14:41 | External Medical Summary | Summary of Care ---
Author Name Unknown Organization [facility] Address [address] [place] [address] Phone [phone] Care Team Providers Care Autographer Name Role Phone Tomer Garner MD Primary Care Provider Reason for Visit * Episode Based Medications (Routine) - Pending Review Specialty Diagnoses / Procedures Referred By Conternestina t Referred To Contact Diagnoses ESRD on peritoneal dialysis (HCC) Anemia in stage 5 chronic kidney disease, not on chronic dialysis Procedures SD EPOETIN SLOAN, NON-ESRD SD EPOETIN SLOAN, 100 UNITS ESRD Yonny Saldivar MD [address] [place] [address] [address] [place] [address] Referral ID Status Reason Start Date Expiration Date V isits Requested Visits Authorized [id number] Pending Review 08/22/2023 02/21/2024 999 0 Encounter Details Date [...] (Oral) 1981,04/11 Pneumococcal Conjugate Vacci ne, 20-valent ([id number]) 11/17/2022 Pneumococcal Polysaccharide PPV23 (Pneumovax) 02/03/2004 Seasonal [...] [address] [place], [place] [address] 09/26/2023 5:30 AM EST Treatment Hemodialysis [address] [place] [address] 09/28/2023 5:30 AM EST Treatment Hemodialysis [address] [place] [address] 09/30/2023 5:30 AM EST Treatment Hemodialysis [address] [place] [address] 10/03/2023 5:30 AM EST Treatment Hemodialysis [address] [place] [address] 10/04/2023 2:30 PM EST Office Visit Rheumatology, [place] [address] [facility] [place] [address] Kori Scott MD [address] [facility] [place] [address] 10/05/2023 5:30 AM EST Treatment Hemodialysis [address] [place] [address] 10/07/2023 5:30 AM EST Treatment Hemodialysis [address] [place] [address] 10/10/2023 5:30 AM EST Treatment Hemodialysis [address] [place] [address] Health Maintenance Due Date Last Done Comments [...] 10:45 AM EST 07/25/2023 10:45 AM EST oYnny Saldivar MD LAB BLOOD ORDERAB LES [facility] [address] [place] [address] * (ABNORMAL) PTH (07/25/2023 6:01 AM EST) PTH 395(H) 15 - 65 pg/mL 07/25/2023 9:22 AM EST [facility] Blood Venous blood specimen / Unknown Venipuncture / Unknown 07/25/2023 6:01 AM EST 07/25/2023 6:01 AM EST Yonny Saldivar MD LAB BLOOD ORDERAB LES Performing Organization Address City/[facility]/ZIP Co de Phone Number [facility] [address] [place] [address] * (ABNORMAL) FERRITIN (07/25/2023 6:01 AM EST) Ferritin 588(H) 30 - 400 ng/mL 07/25/2023 9:22 AM EST LABORATORY [facility] Blood Venous blood specimen / Unknown Venipuncture / Unknown 07/25/2023 6:01 AM EST 07/25/2023 6:01 AM EST Yonny Saldivar MD LAB BLOOD ORDERAB LES Performing Organization Address City/[facility] Co de Phone Number LABORATORY [facility] [address] [place] [address] * ALKALINE PHOSPHATASE (07/25/2023 6:01 AM EST) Pathologist [facility] Alkaline Phosphatase 78 35 - 130 U/L 07/25/2023 8:16 AM EST LABORATORY [facility] Blood Venous blood specimen / Unknown Venipuncture / Unknown 07/25/2023 6:01 AM EST 07/25/2023 6:01 AM EST Yonny Saldivar MD LAB BLOOD ORDERAB LES Performing Organization Address [facility] de Phone Number LABORATORY [facility] [address] [place] [address] * HEPATITIS B SURFACE ANTIGEN (07/25/2023 6:01 AM EST) Pathologist [facility] Hepatitis B Surface Antigen Negative Negative 07/25/2023 9:35 AM EST LABORATORY [facility] Blood Venous blood specimen / Unknown Venipuncture / Unknown 07/25/2023 6:01 AM EST 07/25/2023 6:01 AM EST Yonny Saldivar MD LAB BLOOD ORDERAB LES Performing Organization Address [facility] de Phone Number LABORATORY [facility] [address] [place] [address] * IRON SCREEN, INCLUDING TIBC (07/25/2023 6:01 AM EST) Pathologist [facility] Iron 57 45 - 176 ug/dL 07/25/2023 [...] LAB BLOOD ORDERAB LES Performing Organization Address City/[facility]/ZIP Co de Phone Number [facility] [address] [place] [address] * (ABNORMAL) CHLORIDE (07/25/2023 6:01 AM EST) Chloride 95(L) 98 - 107 mmol/L 07/25/2023 8:16 AM EST [facility] Blood Venous blood specimen / Unknown Venipuncture / Unknown 07/25/2023 6:01 AM EST 07/25/2023 6:01 AM EST Yonny Saldivar MD LAB BLOOD ORDERAB LES Performing Organization Address [facility] Co de Phone Number LABORATORY [facility] [address] [place] [address] * (ABNORMAL) ADJUSTED CALCIUM PHOSPHORUS PRODUCT (07/25/2023 [...] LAB BLOOD ORDERAB LES Performing Organization Address City/[facility] Co de Phone Number LABORATORY [facility] [address] [place] [address] * ALT (07/25/2023 6:01 AM EST) ALT 17 10 - 50 U/L 07/25/2023 8:16 AM EST [facility] Blood Venous blood specimen / Unknown Venipuncture / Unknown 07/25/2023 6:01 AM EST 07/25/2023 6:01 AM EST Yonny Saldivar MD LAB BLOOD ORDERAB LES Performing Organization Address [facility] Co de Phone Number LABORATORY [facility] [address] [place] [address] * CO2 (07/25/2023 6:01 AM EST) CO2 23 22 - 32 mmol/L 07/25/2023 8:16 AM EST [facility] Blood Venous blood specimen / Unknown Venipuncture / Unknown 07/25/2023 6:01 AM EST 07/25/2023 6:01 AM EST Yonny Saldivar MD LAB BLOOD ORDERAB LES Performing Organization Address City/[facility] Co de Phone Number LABORATORY [facility] [address] [place] [address] * SODIUM (07/25/2023 6:01 AM EST) Sodium 138 135 - 146 mmol/L 07/25/2023 8:16 AM EST [facility] Blood Venous blood specimen / Unknown Venipuncture / Unknown 07/25/2023 6:01 AM EST 07/25/2023 6:01 AM EST Yonny Saldivar MD LAB BLOOD ORDERAB LES Performing Organization Address City/[facility] Co de Phone Number LABORATORY [facility] [address] [place] [address] * PRE DIALYSIS BUN (07/25/2023 6:01 AM EST) Pre-Dialysis BUN 78 mg/dL 07/25/2023 8:10 AM EST [facility] Blood Venous blood specimen / Unknown Venipuncture / Unknown 07/25/2023 6:01 AM EST 07/25/2023 6:01 AM EST Yonny Saldivar MD LAB BLOOD ORDERAB LES LABORATORY [facility] [address] [place] [address] * (ABNORMAL) CBC (07/25/2023 6:01 AM EST) [...] 6:01 AM EST 07/25/2023 6:01 AM EST oYnny Saldivar MD LAB BLOOD ORDERAB LES Performing Organization Address City/[facility]/ZIP Co de Phone Number LABORATORY [facility] [address] [place] [address] * POTASSIUM (07/25/2023 6:01 AM EST) Potassium 5.0 3.5 - 5.1 mmol/L 07/25/2023 8:16 AM EST LABORATORY [facility] Blood Venous blood specimen / Unknown Venipuncture / Unknown 07/25/2023 6:01 AM EST 07/25/2023 6:01 AM EST Yonny Saldivar MD LAB BLOOD ORDERAB LES Performing Organization Address City/[facility]/ZIP Co de Phone Number LABORATORY [facility] [address] [place] [address] * AST (07/25/2023 6:01 AM EST) AST 12 10 - 50 U/L 07/25/2023 8:16 AM EST LABORATORY [facility] Blood Venous blood specimen / Unknown Venipuncture / Unknown 07/25/2023 6:01 AM EST 07/25/2023 6:01 AM EST Yonny Saldivar MD LAB BLOOD ORDERAB LES Performing Organization Address City/[facility] Co de Phone Number LABORATORY [facility] [address] [place] [address] * (ABNORMAL) CREATININE (07/25/2023 6:01 AM EST) Creatinine 14.3(H) 0.6 - 1.2 mg/dL 07/25/2023 8:28 AM EST LABORATORY [facility] Comment:Results rechecked. Estimated Glomerular Filtration Rate 4(L) >=60 mL/min 07/25/2023 8:28 AM EST LABORATORY [facility] Comment:eGFR is calculated b ased on the CKD-EPI 2020 equation Blood Venous blood specimen / Unknown Venipuncture / Unknown 07/25/2023 6:01 AM EST 07/25/2023 6:01 AM EST Yonny Saldivar MD LAB BLOOD ORDERAB LES LABORATORY [facility] [address] [place] [address] documented in this encounter Visit [...] 6:09 AM EST 4 mcg Epoetin [place] [address] UNIT/ML inj 9,000 Units 9,000 Units, Intravenous, [...] Advance Directives occurred with: Patient Care Teams Autographer Relationship Specialty Start Date End Date Tomer Garner MD [address] [place] [address] PCP - General 09/19/02 documented as of this encounter
--- OUTSIDE RECORDS SUMMARY | 2024-03-17 14:41 | External Medical Summary ---
Author Name Unknown Address Unknown Organization [id number][place] [place] [facility] [place] [address] Laboratory Report Ordering Provider Test Date Status MOLLY MCADAMS 09/20/2023 13:25:13 Final Observation Date Value Abnormality Reference (Units ) Status Albumin 09/20/2023 13:25:13 4.6 3.8-5.0 (g/dL) Final Calcium 09/20/2023 13:25:13 8.2 Below low normal 8.4-10.2 (mg/dL) Final Phosphate 09/20/2023 13:25:13 8.4 Above high normal 2.5-4.8 (mg/dL) Final Calcium [Moles/volume] corrected for albumin in Serum or Plasma 09/20/2023 13:25:13 8.2 (mg/dL) Final Calcium-phosphorus product panel - Serum or Plasma 09/20/2023 13:25:13 68.9 Final Performing Location [facility] [place] [facility] [place] [address]
--- OUTSIDE RECORDS SUMMARY | 2024-03-17 14:41 | External Medical Summary ---
Author Name Unknown Address Unknown Organization [id number]:[facility] [place] [address] [place] [address] Laboratory Report Ordering Provider Test Date Status MOLLY MCADAMS 09/20/2023 13:25:13 Final Observation Date Value Abnormality Reference (Units ) Status Alk Phos 09/20/2023 13:25:13 60 35-130 (U/ L) Final Performing Location [facility] - [address] [place] [address]
--- OUTSIDE RECORDS SUMMARY | 2024-03-17 14:41 | External Medical Summary ---
Author Name Unknown Address Unknown Organization [id number]:[facility] [place] [facility] [address] [place] [address] Laboratory Report Ordering Provider Test Date Status MOLLY MCADAMS 09/20/2023 13:25:13 Final Observation Date Value Abnormality Reference (Units ) Status Creatinine 09/20/2023 13:25:13 16.8 Above high normal 0.6-1.2 (mg/dL) Final Glomerular filtration rate/1.73 sq M.predicted [Volume Rate/Area] in Serum, Plasma or Blood by Creatinine-based formula (CKD-EPI) 09/20/2023 13:25:13 3 Below low normal >=60 (mL/min) Final eGFR is calculated based on the CKD-EPI 2020 equation Performing Location LABORATORY [facility] [place] [facility] [address] [place] [address]
--- OUTSIDE RECORDS SUMMARY | 2024-03-17 14:41 | External Medical Summary ---
Author Name Unknown Address Unknown Organization [id number]:[facility] [place] [address] [place] [address] Laboratory Report Ordering Provider Test Date Status MOLLY MCADAMS 09/20/2023 13:25:13 Correcti on Order released in error. Observation Date Value Abnormality Reference (Units ) Status BUN, pre-dialysis 09/20/2023 13:25:13 Correction Changed result: Previously r eported as 72 mg/dL on 09/20/2023 at 2036 EST. Performing Location [facility] - [address] [place] [address]
--- OUTSIDE RECORDS SUMMARY | 2024-03-17 14:41 | External Medical Summary ---
Author Name Unknown Address Unknown Organization [id number]:[facility] - [address] [place] [address] Laboratory Report Ordering Provider Test Date Status MOLLY MCADAMS 09/20/2023 13:25:13 Final Observation Date Value Abnormality Reference (Units ) Status CO2 09/20/2023 13:25:13 21 Below low normal 22- 32 (mmol/L) Final Performing Location [facility] - [address] [place] [address]
--- OUTSIDE RECORDS SUMMARY | 2024-03-17 14:41 | External Medical Summary ---
Author Name Unknown Address Unknown Organization [id number]:[facility] - [address] [place] [facility] [place] [address] Laboratory Report Ordering Provider Test Date Status MOLLY MCADAMS 09/20/2023 13:25:13 Final Observation Date Value Abnormality Reference (Units ) Status Hep B surface Ag 09/20/2023 13:25:13 Negative Neg ative Final Performing Location [facility] - [address] [place] [address]
--- OUTSIDE RECORDS SUMMARY | 2024-03-17 14:41 | External Medical Summary ---
Author Name Unknown Address Unknown Organization [id number]:[facility] [place] [address] [place] [address] Laboratory Report Ordering Provider Test Date Status MOLLY MCADAMS 09/20/2023 13:25:13 Final Observation Date Value Abnormality Reference (Units ) Status Calcium 09/20/2023 13:25:13 8.2 Below low normal 8.4 -10.2 (mg/dL) Final Performing Location [facility] - [address] [place] [address]
--- OUTSIDE RECORDS SUMMARY | 2024-03-17 14:41 | External Medical Summary | Summary of Care ---
Author Name Unknown Organization [facility] Address [address] [place] [address] Phone [phone] Care Team Providers Care Electroencephalograph Technician Name Role Phone Tomer Garner MD Primary Care Provider [phone] Reason for Visit * Reason Comments Hemodialysis * Episode Based Medications (Routine) - Authorized Specialty Diagnoses / Procedures Referred By Contac t Referred To Contact Diagnoses ESRD (end stage renal disease) (HCC) Anemia in stage 5 chronic kidney disease, not on chronic dialysis Procedures [place] EPOETIN SLOAN, NON-ESRD [place] EPOETIN SLOAN, 100 UNITS ESRD Yonny Saldivar MD [address] [place] [address] [place] [address] Referral ID Status Reason Start Date Expiration Date V isits Requested Visits Authorized [id number] Authorized 08/22/2023 02/21/2024 999 0 Encounter Details [...] as of this encounter (statuses as of 09/20/2023) Medications Medication Sig Dispensed Refills Start Date [...] as of this encounter (statuses as of 09/20/2023) Active Problems Problem Noted Date Diagnosed Date Anemia in chronic renal disease 04/27/2023 Anemia of chronic renal failure, stage 5 023 ESRD (end stage renal disease) 02/21/2023 Body mass index (BMI) of 40.0 [...] as of this encounter (statuses as of 09/20/2023) Resolved Problems Problem Noted Date Diagnosed Date Resolved Date Dyslipidemia, goal to be determined 08/27/2009 11/21/2013 Overview: Per Lipid Taxonomy. PURE HYPERCHOLESTEROLEM 04/25/200208/11 Overview: Per Lipid Taxonomy. 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 1 Hemoptysis 04/11/1996 08/11/1996 Overview: ICD-10 update of inactive term documented as of this encounter (statuses as of 09/20/2023) Immunizations Name Administration Dates Next Due COVID-19 mRNA, LNP-s, No Pre serve, 2-Dose Series (Moderna) 11/23/2020,10/18/2020 DTP Vaccine 1981,1981,1981 HEP B - Hepatitis B (Dialysis/Immumocomp Pt) 05/02/2023,04/04/2023 MMR - Measles/Mumps/Rubella Vaccine 05/11/1982 OPV - Polio Virus Vaccine (Oral) 1981,04/11 Pneumococcal Conjugate Vacci ne, 20-valent ([id number]) 11/17/2022 Seasonal Influenza, PF, 6 M & [...] [address] [place] [address] 09/26/2023 5:30 AM EST Treatment Hemodialysis [address] [place] [address] 09/28/2023 5:30 AM EST Treatment Hemodialysis [address] [place] [address] 09/30/2023 5:30 AM EST Treatment Hemodialysis [address] [place] [address] 10/03/2023 5:30 AM EST Treatment Hemodialysis [address] [place] [address] [address] [id number] 10/04/2023 2:30 PM EST Office Visit Rheumatology, [place] [address] [place] [address] Kori Scott MD [address] [place] [address] 10/05/2023 5:30 AM EST Treatment Hemodialysis [address] [place] [address] 10/07/2023 5:30 AM EST Treatment Hemodialysis [address] [place], [place] [id number] 10/10/2023 5:30 AM EST Treatment Hemodialysis [address] [id number] Health Maintenance Due Date Last Done Comments [...] Diagnoses Diagnosis ESRD (end stage renal disease) ([facility])- Primary End stage renal disease Anemia of [...] 9:08 AM EST 4 mcg Epoetin [place] [address] UNIT/ML inj 9,000 Units 9,000 Units, Intravenous, [...] Advance Directives occurred with: Patient Care Teams Electroencephalograph Technician Relationship Specialty Start Date End Date Tomer Garner MD [address] [place] [address] PCP - General 09/19/02 documented as of this encounter
--- OUTSIDE RECORDS SUMMARY | 2024-03-17 14:41 | External Medical Summary | Summary of Care ---
Author Name Unknown Organization [facility] Address [address] [facility] [place] [address] Phone [phone] Care Team Providers Care Paint Spray Inspector Name Role Phone Tomer Garner MD Primary Care Provider [phone] Encounter Details Date Type Department Care Team [...] (Oral) 1981,04/11 Pneumococcal Conjugate Vacci ne, 20-valent ([id number]) 11/17/2022 Seasonal Influenza, PF, 6 M & [...] Progress Notes * Sophia Hernandez RN - 09/20/2023 1:59 PM EST PT [...] 5:30 AM EST Treatment Hemodialysis [address], [place] [address] 09/23/2023 5:30 AM EST Treatment Hemodialysis [address], [place] [address] 09/26/2023 5:30 AM EST Treatment Hemodialysis [address], [place] [address] 09/28/2023 5:30 AM EST Treatment Hemodialysis [address], [place] [address] 09/30/2023 5:30 AM EST Treatment Hemodialysis [address], [place] [address] 10/03/2023 5:30 AM EST Treatment Hemodialysis [address], [place] [address] 10/04/2023 2:30 PM EST Office Visit Rheumatology, [place] [address] [place] [address] Kori Scott MD [address] [place] [address] 10/05/2023 5:30 AM EST Treatment Hemodialysis [address] [place] [address] 10/07/2023 5:30 AM EST Treatment Hemodialysis [address] [address] [place] [address] 10/10/2023 5:30 AM EST Treatment Hemodialysis [address] [address] [place] [address] Scheduled Orders Name Type Priority Associated Diagnoses [...] Advance Directives occurred with: Patient Care Teams Paint Spray Inspector Relationship Specialty Start Date End Date Tomer Garner MD [address] [place] [address] PCP - General 09/19/02 documented as of this encounter
--- OUTSIDE RECORDS SUMMARY | 2024-03-17 14:41 | External Medical Summary ---
Author Name Unknown Address Unknown Organization [id number]:[facility]ORY [facility] [place] [address] [place] [address] Laboratory Report Ordering Provider Test Date Status MOLLY MCADAMS 09/20/2023 13:25:13 Final Observation Date Value Abnormality Reference (Units ) Status Parathyrin.intact [Mass/volume] in Serum or Plasma 09/20/2023 13:25:13 94 Above high normal 15-65 (pg/mL) Final Performing Location LAB[facility]ORY [facility] [place] [address] [place] [address]
--- OUTSIDE RECORDS SUMMARY | 2024-03-17 14:41 | External Medical Summary ---
Author Name Unknown Address Unknown Organization K01:[facility] - [address] [place] [address] Laboratory Report Ordering Provider Test Date Status MOLLY MCADAMS 09/20/2023 13:25:13 Final Observation Date Value Abnormality Reference (Units ) Status Cl 09/20/2023 13:25:13 99 98-107 (mm ol/L) Final Performing Location [facility] - [address] [place] [address]
--- OUTSIDE RECORDS SUMMARY | 2024-03-17 14:41 | External Medical Summary ---
Author Name Unknown Address Unknown Organization K01:[place] [place] [address] [place] [address] Laboratory Report Ordering Provider Test Date Status MOLLY MCADAMS 09/20/2023 13:25:13 Final Observation Date Value Abnormality Reference (Units ) Status SODIUM 09/20/2023 13:25:13 140 135-146 (m mol/L) Final Performing Location [facility] - [address] [place] [address]
--- OUTSIDE RECORDS SUMMARY | 2024-03-17 14:41 | External Medical Summary ---
Author Name Unknown Address Unknown Organization [id number]:[facility]ATORY [facility] [place] [address] [place] [address] Laboratory Report Ordering Provider Test Date Status MOLLY MCADAMS 09/20/2023 13:25:13 Final Observation Date Value Abnormality Reference (Units ) Status Potassium 09/20/2023 13:25:13 5.2 Above high normal 3. 5-5.1 (mmol/L) Final Performing Location LABORATORY [facility] [place] - [address] [place] [address]
--- OUTSIDE RECORDS SUMMARY | 2024-03-17 14:41 | External Medical Summary ---
Author Name Unknown Address Unknown Organization K01:LABORATORY [facility] [place] - [facility] [place] [facility] [address] [facility] [address] Laboratory Report Ordering Provider Test Date Status MOLLY MCADAMS 09/20/2023 13:25:13 Final Observation Date Value Abnormality Reference (Units ) Status WBC, Total 09/20/2023 13:25:13 6.36 4.00-10.80 (K/uL) Final RBC 09/20/2023 13:25:13 4.00 4.50-5.25 (M/uL) Final Hemoglobin 09/20/2023 13:25:13 12.2 Below low normal 14.0-16.8 (g/dL) Final HCT 09/20/2023 13:25:13 38.2 Below low normal 40.0-48.4 (%) Final MCV 09/20/2023 13:25:13 95.5 82.0-99.5 (fL) Final MCH 09/20/2023 13:25:13 30.5 27.0-34.0 (pg) Final MCHC 09/20/2023 13:25:13 31.9 32.0-36.0 (g/dL) Final RDW 09/20/2023 13:25:13 14.4 11.5-15.5 (%) Final Platelets 09/20/2023 13:25:13 179 140-400 (K/uL) Final MPV 09/20/2023 13:25:13 9.6 6.6-11.1 (fL) Final Nucleated erythrocytes/100 leukocytes [Ratio] in Blood by Automated count 09/20/2023 13:25:13 0 <=0 (/100 WBCs) Final Performing Location LABORATORY [facility] [place] - [address] [facility] [address]
--- OUTSIDE RECORDS SUMMARY | 2024-03-17 14:41 | External Medical Summary | Summary of Care ---
Author Name Unknown Organization [facility] Address [address] [place] [address] Phone [phone] Care Team Providers Care Clinical Research Assistant Name Role Phone Tomer Garner MD [...] UNITS ESRD Yonny Saldivar MD [address] [place] [address] [address] [place] [address] Referral ID Status Reason Start Date Expiration Date V isits Requested Visits Authorized [id number] Pending Review 08/22/2023 02/21/2024 999 0 Encounter [...] (Oral) 1981,04/11 Pneumococcal Conjugate Vacci ne, 20-valent ([id number]) 11/17/2022 Pneumococcal Polysaccharide PPV23 (Pneumovax) 02/03/2004 Seasonal [...] [address] [place], [place] [address] 09/26/2023 5:30 AM EST Treatment Hemodialysis [address] [place] [address] 09/28/2023 5:30 AM EST Treatment Hemodialysis [place] [address] [place] [address] 09/30/2023 5:30 AM EST Treatment Hemodialysis [place] [address] [place] [address] 10/03/2023 5:30 AM EST Treatment Hemodialysis [place] [address] [place] [address] 10/04/2023 2:30 PM EST Office Visit Rheumatology, [place] [address] [facility] [place] [address] Kori Scott MD [address] [facility] [place] [address] 10/05/2023 5:30 AM EST Treatment Hemodialysis [address] [address] [place] [address] 10/07/2023 5:30 AM EST Treatment Hemodialysis [place] [address] [place] [address] 10/10/2023 5:30 AM EST Treatment Hemodialysis [place] [address] [place] [address] Health Maintenance Due Date Last Done Comments [...] BLOOD ORDERAB LES [facility] [address] [place] [address] * (ABNORMAL) PTH (07/25/2023 6:01 AM EST) PTH 395(H) 15 - 65 pg/mL 07/25/2023 9:22 AM EST [facility] Blood Venous blood specimen / Unknown Venipuncture / Unknown 07/25/2023 6:01 AM EST 07/25/2023 6:01 AM EST Yonny Saldivar MD LAB BLOOD ORDERAB LES Performing Organization Address City/[facility]/ZIP Co de Phone Number LAB[facility]ATORY [facility] [address] [place] [address] * (ABNORMAL) FERRITIN (07/25/2023 6:01 AM EST) Ferritin 588(H) 30 - 400 ng/mL 07/25/2023 9:22 AM EST LABORATORY [facility] Blood Venous blood specimen / Unknown Venipuncture / Unknown 07/25/2023 6:01 AM EST 07/25/2023 6:01 AM EST Yonny Saldivar MD LAB BLOOD ORDERAB LES Performing Organization Address City/[facility] Co de Phone Number LABORATORY [facility] [address] [place] [address] * ALKALINE PHOSPHATASE (07/25/2023 6:01 AM EST) Pathologist [facility] Alkaline Phosphatase 78 35 - 130 U/L 07/25/2023 8:16 AM EST LABORATORY [facility] Blood Venous blood specimen / Unknown Venipuncture / Unknown 07/25/2023 6:01 AM EST 07/25/2023 6:01 AM EST Yonny Saldivar MD LAB BLOOD ORDERAB LES Performing Organization Address [facility] de Phone Number LABORATORY [facility] [address] [place] [address] * HEPATITIS B SURFACE ANTIGEN (07/25/2023 6:01 AM EST) Pathologist [facility] Hepatitis B Surface Antigen Negative Negative 07/25/2023 9:35 AM EST LABORATORY [facility] Blood Venous blood specimen / Unknown Venipuncture / Unknown 07/25/2023 6:01 AM EST 07/25/2023 6:01 AM EST Yonny Saldivar MD LAB BLOOD ORDERAB LES Performing Organization Address [facility] de Phone Number LABORATORY [facility] [address] [place] [address] * IRON SCREEN, INCLUDING TIBC (07/25/2023 6:01 AM EST) Pathologist [facility] Iron 57 45 - 176 ug/dL 07/25/2023 [...] LAB BLOOD ORDERAB LES Performing Organization Address City/[facility]/ZIP Co de Phone Number [facility]ORY [facility] [address] [place] [address] * (ABNORMAL) CHLORIDE (07/25/2023 6:01 AM EST) Chloride 95(L) 98 - 107 mmol/L 07/25/2023 8:16 AM EST [facility] Blood Venous blood specimen / Unknown Venipuncture / Unknown 07/25/2023 6:01 AM EST 07/25/2023 6:01 AM EST Yonny Saldivar MD LAB BLOOD ORDERAB LES Performing Organization Address [facility] Co de Phone Number LABORATORY [facility] [address] [place] [address] * (ABNORMAL) ADJUSTED CALCIUM PHOSPHORUS PRODUCT (07/25/2023 [...] LAB BLOOD ORDERAB LES Performing Organization Address City/[facility] Co de Phone Number LABORATORY [facility] [address] [place] [address] * ALT (07/25/2023 6:01 AM EST) ALT 17 10 - 50 U/L 07/25/2023 8:16 AM EST [facility] Blood Venous blood specimen / Unknown Venipuncture / Unknown 07/25/2023 6:01 AM EST 07/25/2023 6:01 AM EST Yonny Saldivar MD LAB BLOOD ORDERAB LES Performing Organization Address [facility] Co de Phone Number LABORATORY [facility] [address] [place] [address] * CO2 (07/25/2023 6:01 AM EST) CO2 23 22 - 32 mmol/L 07/25/2023 8:16 AM EST [facility] Blood Venous blood specimen / Unknown Venipuncture / Unknown 07/25/2023 6:01 AM EST 07/25/2023 6:01 AM EST Yonny Saldivar MD LAB BLOOD ORDERAB LES Performing Organization Address City/[facility] Co de Phone Number LABORATORY [facility] [address] [place] [address] * SODIUM (07/25/2023 6:01 AM EST) Sodium 138 135 - 146 mmol/L 07/25/2023 8:16 AM EST [facility] Blood Venous blood specimen / Unknown Venipuncture / Unknown 07/25/2023 6:01 AM EST 07/25/2023 6:01 AM EST Yonny Saldivar MD LAB BLOOD ORDERAB LES Performing Organization Address City/[facility] Co de Phone Number LABORATORY [facility] [address] [place] [address] * PRE DIALYSIS BUN (07/25/2023 6:01 AM EST) Pre-Dialysis BUN 78 mg/dL 07/25/2023 8:10 AM EST [facility] Blood Venous blood specimen / Unknown Venipuncture / Unknown 07/25/2023 6:01 AM EST 07/25/2023 6:01 AM EST Yonny Saldivar MD LAB BLOOD ORDERAB LES LABORATORY [facility] [address] [place] [address] * (ABNORMAL) CBC (07/25/2023 6:01 AM EST) [...] LAB BLOOD ORDERAB LES Performing Organization Address City/[facility]/ZIP Co de Phone Number LABORATORY [facility] [address] [place] [address] * POTASSIUM (07/25/2023 6:01 AM EST) Potassium 5.0 3.5 - 5.1 mmol/L 07/25/2023 8:16 AM EST LABORATORY [facility] Blood Venous blood specimen / Unknown Venipuncture / Unknown 07/25/2023 6:01 AM EST 07/25/2023 6:01 AM EST Yonny Saldivar MD LAB BLOOD ORDERAB LES Performing Organization Address City/[facility]/ZIP Co de Phone Number LABORATORY [facility] [address] [place] [address] * AST (07/25/2023 6:01 AM EST) AST 12 10 - 50 U/L 07/25/2023 8:16 AM EST LABORATORY [facility] Blood Venous blood specimen / Unknown Venipuncture / Unknown 07/25/2023 6:01 AM EST 07/25/2023 6:01 AM EST Yonny Saldivar MD LAB BLOOD ORDERAB LES Performing Organization Address City/[facility] Co de Phone Number LABORATORY [facility] [address] [place] [address] * (ABNORMAL) CREATININE (07/25/2023 6:01 AM EST) Creatinine 14.3(H) 0.6 - 1.2 mg/dL 07/25/2023 8:28 AM EST LABORATORY [facility] Comment:Results rechecked. Estimated Glomerular Filtration Rate 4(L) >=60 mL/min 07/25/2023 8:28 AM EST LABORATORY [facility] Comment:eGFR is calculated b ased on the CKD-EPI 2020 equation Blood Venous blood specimen / Unknown Venipuncture / Unknown 07/25/2023 6:01 AM EST 07/25/2023 6:01 AM EST Yonny Saldivar MD LAB BLOOD ORDERAB LES LABORATORY [facility] [address] [place] [address] documented in this encounter Visit [...] 6:09 AM EST 4 mcg [place] [address] UNIT/ML inj 9,000 Units 9,000 Units, Intravenous, [...] Directives occurred with: Patient Care Teams Clinical Research Assistant Relationship Specialty Start Date End Date Tomer Garner MD [address] [place] [address] PCP - General 09/19/02 documented as of this encounter
--- OUTSIDE RECORDS SUMMARY | 2024-03-17 14:41 | External Medical Summary ---
Author Name Unknown Address Unknown Organization [id number]:LABORATORY [facility] - [address] [place] [address] Laboratory Report Ordering Provider Test Date Status MOLLY MCADAMS 09/20/2023 13:25:13 Final Observation Date Value Abnormality Reference (Units ) Status AST (Aspartate aminotransferase) 09/20/2023 13:25:13 14 10-50 (U/L) Final Performing Location LABORATORY [facility] - [address] [place] [address]
--- OUTSIDE RECORDS SUMMARY | 2024-03-17 14:41 | External Medical Summary ---
Author Name Unknown Address Unknown Organization [id number]:LABORATORY [facility] - [address] [place] [address] Laboratory Report Ordering Provider Test Date Status KEZIACHAITANYAClaudiaHUNTERBARNES 09/20/2023 13:25:13 Final Observation Date Value Abnormality Reference (Units ) Status Iron 09/20/2023 13:25:13 63 45-176 (ug/dL) Final Iron-binding capacity 09/20/2023 13:25:13 243 Below low normal 250-425 (ug/dL) Final Transferrin Sat % 09/20/2023 13:25:13 26 15-55 (%) Final Performing Location LABORATORY [facility] - [address] [place] [address]
--- OUTSIDE RECORDS SUMMARY | 2024-03-17 14:41 | External Medical Summary | Summary of Care ---
Author Name Unknown Organization [facility] Address [address] [facility] [place] [address] Phone [phone] Care Team Providers Care Home Decorator Name Role Phone Tomer Garner MD Primary Care Provider Encounter Details Date Type Department Care Team (Late st Contact Info) Description 09/19/2023 10:30 AM EST Nurse Only Home Dialysis [place] [...] (Oral) 1981,04/11 Pneumococcal Conjugate Vacci ne, 20-valent ([id number]) 11/17/2022 Seasonal Influenza, PF, 6 M & [...] Sign Reading Time Taken Comments Blood Pressure 139/83 09/19/2023 2:38 PM EST Pulse 69 09/19/2023 2:38 PM EST Temperature 36.1 C (96.9 F) 09/19/2023 2:38 PM ES T Respiratory Rate 18 09/19/2023 2:38 PM EST Oxygen Saturation - - Inhaled [...] Progress Notes * Sophia Hernandez RN - 09/19/2023 2:08 PM EST Pt arrived for day 2 CCPD training. PT education documented in education tab. PT connected to ccpd treatment per order for 3 cycles, 2.5% Dianeal solution, 2000 ml fills, 4 hr treatment. PT exit siteassessed by PD nurse no redness, pain, or drainage. PT vitals obtained and stable. PT had adequate fill and drain times during treatment. PT had no BLE, SOB, or chest pain. PT had no abdominal discomf ort during treatment. PT completed and demonstrated PD techniques through teach back to PD nurse during training with no issues. documented in this encounter Plan of Treatment Upcoming Encounters Date Type Department Care Team (Late st Contact Info) Description 09/21/2023 5:30 AM EST Treatment Hemodialysis [address], [place] [address] 09/23/2023 5:30 AM EST Treatment Hemodialysis [address], [place] [address] 09/26/2023 5:30 AM EST Treatment Hemodialysis [address], [place] [address] 09/28/2023 5:30 AM EST Treatment Hemodialysis [address], [place] [address] 09/30/2023 5:30 AM EST Treatment Hemodialysis [address], [place] [address] 10/03/2023 5:30 AM EST Treatment Hemodialysis [address], [place] [address] 10/04/2023 2:30 PM EST Office Visit Rheumatology, [place] [address] [place] [address] Kori Scott MD [address] [place] [facility] [address] 10/05/2023 5:30 AM EST Treatment Hemodialysis [address] [place] [address] 10/07/2023 5:30 AM EST Treatment Hemodialysis [address] [place] [address] 10/10/2023 5:30 AM EST Treatment Hemodialysis [place] [address] [place] [address] Scheduled Orders Name Type Priority Associated Diagnoses Orde r Schedule CBC Lab Routine ESRD on peritoneal dialysis (HCC) Expected: 09/19/2023, Expires: 09/19/2024 BASIC METABOLIC PANEL Lab Routine ESRD on peritoneal dialysis ([facility]) Expected: 09/19/2023, Expires: 10/20/2023 FERRITIN Lab Routine ESRD on peritoneal dialysis ([facility]) Expected: 09/19/2023, Expires: 10/20/2023 IRON SCREEN, INCLUDING TIBC Lab Routine ESRD on peritoneal dialysis ([facility]) Expected: 09/19/2023, Expires: 10/20/2023 25-HYDROXY VITAMIN D Lab Routine ESRD on peritoneal dialysis ([facility]) Expected: 09/19/2023, Expires: 10/20/2023 PTH Lab Routine ESRD on peritoneal dialysis ([facility]) Expected: 09/19/2023, Expires: 10/20/2023 ALBUMIN Lab Routine ESRD on peritoneal dialysis ([facility]) Expected: 09/19/2023, Expires: 09/19/2024 CCPD Procedures Routine ESRD on peritoneal dialysis ([facility]) Ordered: 09/20/2023 Health Maintenance Due Date Last [...] Directives occurred with: Patient Care Teams Home Decorator Relationship Specialty Start Date End Date Tomer Garner MD [address] [facility], [place] [address] PCP - General 09/19/02 documented as of this encounter
--- OUTSIDE RECORDS SUMMARY | 2024-03-17 14:41 | External Medical Summary ---
Author Name Unknown Address Unknown Organization [id number]:LABORATORY [facility] - [address] [place] [address] Laboratory Report Ordering Provider Test Date Status MOLLY MCADAMS 09/20/2023 13:25:13 Final Observation Date Value Abnormality Reference (Units ) Status Albumin 09/20/2023 13:25:13 4.6 3.8-5.0 (g /dL) Final Performing Location [facility] - [address] [place] [address]
--- OUTSIDE RECORDS SUMMARY | 2024-03-17 14:41 | External Medical Summary ---
Author Name Unknown Address Unknown Organization [id number]:LAB[facility]ATORY [facility] - [address] [place] [address] Laboratory Report Ordering Provider Test Date Status MOLLY MCADAMS 09/20/2023 13:25:13 Final Observation Date Value Abnormality Reference (Units ) Status Ferritin 09/20/2023 13:25:13 868 Above high normal 30 -400 (ng/mL) Final Performing Location [facility] - [address] [place] [address]
--- OUTSIDE RECORDS SUMMARY | 2024-03-17 14:41 | External Medical Summary ---
Author Name Unknown Address Unknown Organization [id number]:LABORATORY [facility] - [address] [place] [address] Laboratory Report Ordering Provider Test Date Status MOLLY MCADAMS 09/20/2023 13:25:13 Final Observation Date Value Abnormality Reference (Units ) Status Phosphate 09/20/2023 13:25:13 8.4 Above high normal 2. 5-4.8 (mg/dL) Final Performing Location [facility] - [address] [place] [address]
--- OUTSIDE RECORDS SUMMARY | 2024-03-17 14:41 | External Medical Summary ---
Author Name Unknown Address Unknown Organization [id number]:[facility] [place] [address] [place] [address] Laboratory Report Ordering Provider Test Date Status MOLLY MCADAMS 09/20/2023 13:25:13 Final Deficient: <20 ng/mL
Ins ufficient: 20-29 ng/mL
Recommended/Optimum:30-50 ng/mL

Vitamin D intoxication is rare. If suspicious of Vitamin D toxicity, evaluation of serum Calcium and PTH is recommended. Observation Date Value Abnormality Reference (Units ) Status 25-OH Vitamin D total 09/20/2023 13:25:13 52 >19 (ng/mL) Final Performing Location [facility] [place] [address] [place] [address]
--- OUTSIDE RECORDS SUMMARY | 2024-03-17 14:41 | External Medical Summary | Summary of Care ---
Author Name Unknown Organization [facility] Address [address] [place] [address] Phone [phone] Care Team Providers Care Alley Tender Name Role Phone Tomer Garner MD Primary Care Provider Reason for Visit * Reason Comments Chronic Kidney Disease (CKD) * Episode Based Medications (Routine) - Authorized Specialty Diagnoses / Procedures Referred By Contac t Referred To Contact Diagnoses ESRD (end stage renal disease) (HCC) Anemia in stage 5 chronic kidney disease, not on chronic dialysis Procedures [place] EPOETIN SLOAN, NON-ESRD [place] EPOETIN SLOAN, 100 UNITS ESRD Yonny Saldivar MD [address] [place] [address] [address] [place] [address] [place] [address] Referral ID Status Reason Start Date Expiration Date V isits Requested Visits Authorized [id number] Authorized 08/22/2023 02/21/2024 999 0 Encounter Details Date Type Department Care Team (Late st Contact Info) Description 07/25/2023 5:30 AM EST Treatment Hemodialysis [place] [...] (Oral) 1981,04/11 Pneumococcal Conjugate Vacci ne, 20-valent ([id number]) 11/17/2022 Pneumococcal Polysaccharide PPV23 (Pneumovax) 02/03/2004 Seasonal [...] Sign Reading Time Taken Comments Blood Pressure 101/69 07/25/2023 9:45 AM EST Pulse 74 07/25/2023 9:50 AM EST Temperature 36.3 C (97.3 F) 07/25/2023 9:50 AM ES T Respiratory Rate 16 07/25/2023 9:50 AM EST Oxygen Saturation - - Inhaled [...] Miscellaneous Notes * Dialysis Rounding Note - Nilsa Richard MD - 07/25/2023 5:30 AM EST DIALYSIS ROUNDING NOTE Name: Chandan Donato Chandan Donato was seen and examined while on dialysis. Professional oversight of the patient's dialysis care, access care and dialysis related co-morbidities were addressed as necessary with the patient and/or staff. Doing well and Mentioned to have chest pain with HD initiation lasting for 30-60 seconds . No nausea/vomiting, No cramps, No sweating Attributed his pain to heparin, however he's on heparin infusion Exam: No JVD, no LL edema No changes to dialysis today., Dialysis access assessment: TDC functioning without issues, Cardiac:RRR, normal S1/S2, and Pulmonary: bilateral breath sounds, no added sounds With next HD will delay Heparin by 20 minutes and try to assess if pain is related to HD initiationor drug induced Recent MPI was negative Patient was seen and examined with Dr [place] Plan of care explained to the patient, he showed comprehension and agreement Nilsa Richard MD Nephrology Fellow documented in this encounter Plan of Treatment Upcoming Encounters Date Type Department Care Team (Late st Contact Info) Description 09/21/2023 5:30 AM EST Treatment Hemodialysis [address], [place] [address] 09/23/2023 5:30 AM EST Treatment Hemodialysis [address], [place] [address] 09/26/2023 5:30 AM EST Treatment Hemodialysis [address], [place] [address] 09/28/2023 5:30 AM EST Treatment Hemodialysis [address], [place] [address] 09/30/2023 5:30 AM EST Treatment Hemodialysis [address], [place] [address] 10/03/2023 5:30 AM EST Treatment Hemodialysis [address], [place] [address] 10/04/2023 2:30 PM EST Office Visit Rheumatology, [place] [address] [facility] [place] [address] Kori Scott MD [address] [facility] [place] [address] 10/05/2023 5:30 AM EST Treatment Hemodialysis [address], [place] [address] 10/07/2023 5:30 AM EST Treatment Hemodialysis [place] [address] [place] [address] 10/10/2023 5:30 AM EST Treatment Hemodialysis [place] [address] [place] [address] Health Maintenance Due Date Last Done Comments [...] Associated Diagnosis Comments POST-DIALYSIS BUN BATTERY STAT 07/25/2023 10:45 AM EST ESRD (end stage renal disease) [...] 69 % 07/25/2023 5:[address] [facility] Ultra Filtration Volume 4.0 L 07/25/2023 5:[address] [facility] Dialysis Session Length 4.0 hours 07/25/2023 5:[address] [facility] Blood Venous blood specimen / Unknown Venipuncture / Unknown 07/25/2023 10:45 AM EST 07/25/2023 10:45 AM EST Yonny Saldivar MD LAB BLOOD ORDERAB LES [facility]ATORY [facility] [address] [place] [address] documented in this encounter Visit [...] 4 mcg 4 mcg, Intravenous, ONCE, On Mon07/25/23 at 0645, For 1 dose Given 07/25/2023 8:56 AM EST 4 mcg Epoetin Sloan [address] UNIT/ML inj 9,000 Units 9,000 Units, Intravenous, ONCE, On Mon07/25/23 at 0645, For 1 dose Given 07/25/2023 8:56 AM EST 9,000 Units hEParin 1,000 unit/mL infusion for dialysis 500 Units/hr (0.5 mL/hr), Hemodialysis, CONTINUOUS, Starting on Mon07/25/23 at 0645, Until Mon07/25/23 at 1453, Maintenance: Stop 1 hour before dialysis end in AVF/AVG. Continue through dialysis in CVC. The total delivered dose is approximately 2,500 to 5,000 units, based on weight and treatment duration assumptions Start Infusion 07/25/2023 5:45 AM EST 500 Units/hr 0.5 mL/hr hEParin 1000 UNIT/ML inj 2,000 Units 2,000 Units, Intravenous, ONCE, On Mon07/25/23 at 0645, For 1 dose, Loading dose Given 07/25/2023 5:41 AM EST 2,000 Units sodium citrate 4% (Anticoagulant Sodium Citrate) inj 2.5 mL 2.5 mL, Dialysis catheter, ONCE, On Mon07/25/23 at 0645, For 1 dose, ARTERIAL For use only to lock dialysis catheter after dialysis Given 07/25/2023 9:45 AM EST 2.5 mL sodium citrate 4% (Anticoagulant Sodium Citrate) inj 2.5 mL 2.5 mL, Dialysis catheter, ONCE, On Mon07/25/23 at 0645, For 1 dose, VENOUS For use only to lock dialysis catheter after dialysis Given 07/25/2023 9:45 AM EST 2.5 mL documented in [...] Advance Directives occurred with: Patient Care Teams Alley Tender Relationship Specialty Start Date End Date Tomer Garner MD [address] [place] [address] PCP - General 09/19/02 documented as of this encounter
--- OUTSIDE RECORDS SUMMARY | 2024-03-17 14:42 | External Medical Summary | Summary of Care ---
Author Name Unknown Organization [facility] Address [address] [place] [address] Phone [phone] Care Team Providers Care Rehab Therapy Manager Name Role Phone Tomer Garner MD Primary Care Provider Reason for Visit * Reason Comments Chronic Kidney Disease (CKD) * Episode Based Medications (Routine) - Authorized Specialty Diagnoses / Procedures Referred By Contac t Referred To Contact Diagnoses ESRD (end stage renal disease) (HCC) Anemia in stage 5 chronic kidney disease, not on chronic dialysis Procedures DE EPOETIN SLOAN, NON-ESRD DE EPOETIN SLOAN, 100 UNITS ESRD Yonny Saldivar MD [address] [place] [address] [address] [place] [address] Referral ID Status Reason Start Date Expiration Date V isits Requested Visits Authorized [id number] Authorized 08/22/2023 02/21/2024 999 0 Encounter Details [...] as of this encounter (statuses as of 09/19/2023) Medications Medication Sig Dispensed Refills Start Date [...] as of this encounter (statuses as of 09/19/2023) Active Problems Problem Noted Date Diagnosed Date [...] as of this encounter (statuses as of 09/19/2023) Resolved Problems Problem Noted Date Diagnosed Date Resolved Date Dyslipidemia, goal to be determined 08/27/2009 11/21/2013 Overview: Per Lipid Taxonomy. PURE HYPERCHOLESTEROLEM 04/25/200208/11 Overview: Per Lipid Taxonomy. 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 1 Hemoptysis 04/11/1996 08/11/1996 Overview: ICD-10 update of inactive term documented as of this encounter (statuses as of 09/19/2023) Immunizations Name Administration Dates Next Due COVID-19 mRNA, LNP-s, No Pre serve, 2-Dose Series (Moderna) 11/23/2020,10/18/2020 DTP Vaccine 1981,1981,1981 HEP B - Hepatitis B (Dialysis/Immumocomp Pt) 05/02/2023,04/04/2023 MMR - Measles/Mumps/Rubella Vaccine 05/11/1982 OPV - Polio Virus Vaccine (Oral) 1981,04/11 Pneumococcal Conjugate Vacci ne, 20-valent ([id number]) 11/17/2022 Pneumococcal Polysaccharide PPV23 (Pneumovax) 02/03/2004 Seasonal [...] Treatment Hemodialysis [address], [place] [address] 09/23/2023 5:30 AM EST Treatment Hemodialysis [address], [place] [address] 09/26/2023 5:30 AM EST Treatment Hemodialysis [address], [place] [address] 09/28/2023 5:30 AM EST Treatment Hemodialysis [address], [place] [address] 09/30/2023 5:30 AM EST Treatment Hemodialysis [address], [place] [address] 10/03/2023 5:30 AM EST Treatment Hemodialysis [address], [place] [address] 10/04/2023 2:30 PM EST Office Visit Rheumatology, [facility] [address] [facility] [place] [address] Kori Scott MD [address] [facility] [place] [address] 10/05/2023 5:30 AM EST Treatment Hemodialysis [address], [place] [address] 10/07/2023 5:30 AM EST Treatment Hemodialysis [address] [place] [address] 10/10/2023 5:30 AM EST Treatment Hemodialysis [facility] [address] [place] [address] Health Maintenance Due Date Last Done Comments [...] 69 % 07/25/2023 5:31 PM EST LABORATORY [facility] Ultra Filtration Volume 4.0 L 07/25/2023 5:31 PM EST LABORATORY [facility] Dialysis Session Length 4.0 hours 07/25/2023 5:31 PM EST LAB[facility]ATORY [facility] Blood Venous blood specimen / Unknown Venipuncture / Unknown 07/25/2023 10:45 AM EST 07/25/2023 10:45 AM EST Yonny Saldivar MD LAB BLOOD ORDERAB LES LABORATORY [facility] [address] [place] [address] documented in this encounter Visit [...] 8:56 AM EST 4 mcg Epoetin Sloan 26243 UNIT/ML inj 9,000 Units 9,000 Units, Intravenous, [...] Advance Directives occurred with: Patient Care Teams Rehab Therapy Manager Relationship Specialty Start Date End Date Tomer Garner MD [address] [place] [address] PCP - General 09/19/02 documented as of this encounter
--- OUTSIDE RECORDS SUMMARY | 2024-03-17 14:42 | External Medical Summary | Summary of Care ---
Author Name Unknown Organization [facility] Address [address] [place] [address] Phone [phone] Care Team Providers Care Sports Management Intern Name Role Phone Tomer Garner MD Primary Care Provider [phone] Reason for Visit * Reason Comments Chronic Kidney Disease (CKD) * Episode Based Medications (Routine) - Authorized Specialty Diagnoses / Procedures Referred By Contac t Referred To Contact Diagnoses ESRD (end stage renal disease) (HCC) Anemia in stage 5 chronic kidney disease, not on chronic dialysis Procedures ME EPOETIN SLOAN, NON-ESRD ME EPOETIN SLOAN, 100 UNITS ESRD Yonny Saldivar MD [address] [place] [address] [address] [place] [address] Referral ID Status Reason Start Date Expiration Date V isits Requested Visits Authorized [id number] Authorized 08/22/2023 02/21/2024 999 0 Encounter Details [...] (Oral) 1981,04/11 Pneumococcal Conjugate Vacci ne, 20-valent ([id number]) 11/17/2022 Pneumococcal Polysaccharide PPV23 (Pneumovax) 02/03/2004 Seasonal [...] Treatment Hemodialysis [address], [place] [address] 09/23/2023 5:30 AM EST Treatment Hemodialysis [address], [place] [address] 09/26/2023 5:30 AM EST Treatment Hemodialysis [address], [place] [address] 09/28/2023 5:30 AM EST Treatment Hemodialysis [address], [place] [address] 09/30/2023 5:30 AM EST Treatment Hemodialysis [address], [place] [address] 10/03/2023 5:30 AM EST Treatment Hemodialysis [address], [place] [address] 10/04/2023 2:30 PM EST Office Visit Rheumatology, [facility] [address] [facility] [place] [address] Kori Scott MD [address] [facility] [place] [address] 10/05/2023 5:30 AM EST Treatment Hemodialysis [address], [place] [address] 10/07/2023 5:30 AM EST Treatment Hemodialysis [facility] [address] [place] [address] 10/10/2023 5:30 AM EST Treatment Hemodialysis [facility] [address] [place] [address] Health Maintenance Due Date Last Done Comments [...] 69 % 07/25/2023 5:31 PM EST LAB[facility]ATORY [facility] Ultra Filtration Volume 4.0 L 07/25/2023 5:31 PM EST LAB[facility]AT[facility] Dialysis Session Length 4.0 hours 07/25/2023 5:31 PM EST LAB[facility]ATORY [facility] Blood Venous blood specimen / Unknown Venipuncture / Unknown 07/25/2023 10:45 AM EST 07/25/2023 10:45 AM EST Yonny Saldivar MD LAB BLOOD ORDERAB LES LAB[facility]ATORY [facility] [address] [place] [address] documented in this encounter Visit [...] 07/25/2023 8:56 AM EST 4 mcg Epoetin Slona [address] UNIT/ML inj 9,000 Units 9,000 Units, Intravenous, [...] Advance Directives occurred with: Patient Care Teams Sports Management Intern Relationship Specialty Start Date End Date Tomer Garner MD [address] [facility] [place] [address] PCP - General 09/19/02 documented as of this encounter
--- OUTSIDE RECORDS SUMMARY | 2024-03-17 14:42 | External Medical Summary | Summary of Care ---
Author Name Unknown Organization [facility] Address [address] [place] [address] Phone [phone] Care Team Providers Care Communications Agent Name Role Phone Tomer Garner MD Primary Care Provider Reason for Visit * Reason Comments Hemodialysis * Episode Based Medications (Routine) - Authorized Specialty Diagnoses / Procedures Referred By Contac t Referred To Contact Diagnoses ESRD (end stage renal disease) (HCC) Anemia in stage 5 chronic kidney disease, not on chronic dialysis Procedures PA EPOETIN PITER, NON-ESRD PA EPOETIN PITER, 100 UNITS ESRD Yonny Saldivar MD [address] [place] [address] [place] [address] Referral ID Status Reason Start Date Expiration Date V isits Requested Visits Authorized [id number] Authorized 08/22/2023 02/21/2024 999 0 Encounter Details Date Type Department Care Team (Late st Contact Info) Description 07/29/2023 5:30 AM EST Treatment Hemodialysis [facility] [...] (Oral) 1981,04/11 Pneumococcal Conjugate Vacci ne, 20-valent ([id number]) 11/17/2022 Seasonal Influenza, PF, 6 M & [...] Sign Reading Time Taken Comments Blood Pressure 124/70 07/29/2023 9:55 AM EST Pulse 72 07/29/2023 9:56 AM EST Temperature 36.7 C (98.1 F) 07/29/2023 9:56 AM ES T Respiratory Rate 18 07/29/2023 9:56 AM EST Oxygen Saturation - - Inhaled [...] [address] [place] [address] 09/23/2023 5:30 AM EST Treatment Hemodialysis [facility] [address] [place] [address] 09/26/2023 5:30 AM EST Treatment Hemodialysis [facility] [address] [place] [address] 09/28/2023 5:30 AM EST Treatment Hemodialysis [address], [place] [address] 09/30/2023 5:30 AM EST Treatment Hemodialysis [address], [place] [address] 10/03/2023 5:30 AM EST Treatment Hemodialysis [address], [place] [address] 10/04/2023 2:30 PM EST Office Visit [facility], [facility] [address] [facility] [place] [address] Kori Scott MD [address] [place] [facility] [place] [address] 10/05/2023 5:30 AM EST Treatment Hemodialysis [address], [place] [address] 10/07/2023 5:30 AM EST Treatment Hemodialysis [facility] [address] [place] [address] 10/10/2023 5:30 AM EST Treatment Hemodialysis [address], [place] [address] Health Maintenance Due Date Last Done Comments [...] 4 mcg 4 mcg, Intravenous, ONCE, On 07/29/23 at 0700, For 1 dose Given 07/29/2023 6:33 AM EST 4 mcg hEParin 1,000 unit/mL infusion for dialysis 500 Units/hr (0.5 mL/hr), Hemodialysis, CONTINUOUS, Starting on 07/29/23 at 0700, Until 07/29/23 at 1629, Maintenance: Stop 1 hour before dialysis end in AVF/AVG. Continue through dialysis in CVC. The total delivered dose is approximately 2,500 to 5,000 units, based on weight and treatment duration assumptions Start Infusion 07/29/2023 6:18 AM EST 500 Units/hr 0.5 mL/hr hEParin 1000 UNIT/ML inj 2,000 Units 2,000 Units, Intravenous, ONCE, On 07/29/23 at 0700, For 1 dose, Loading dose Given 07/29/2023 6:18 AM EST 2,000 Units Iron Sucrose (Venofer) inj 100 mg 100 mg, Intravenous, ONCE, 1 dose, On 07/29/23 at 0700 Given 07/29/2023 7:15 AM EST 100 mg sodium citrate 4% (Anticoagulant Sodium Citrate) inj 2.5 mL 2.5 mL, Dialysis catheter, ONCE, On 07/29/23 at 0700, For 1 dose, ARTERIAL For use only to lock dialysis catheter after dialysis Given 07/29/2023 9:54 AM EST 2.5 mL sodium citrate 4% (Anticoagulant Sodium Citrate) inj 2.5 mL 2.5 mL, Dialysis catheter, ONCE, On 07/29/23 at 0700, For 1 dose, VENOUS For use only to lock dialysis catheter after dialysis Given 07/29/2023 9:54 AM EST 2.5 mL documented in this [...] Advance Directives occurred with: Patient Care Teams Communications Agent Relationship Specialty Start Date End Date Tomer Garner MD [address] [facility] PCP - General 09/19/02 documented as of this encounter
--- OUTSIDE RECORDS SUMMARY | 2024-03-17 14:42 | External Medical Summary | Summary of Care ---
Author Name Unknown Organization [facility] Address [address] [place] [address] Phone [phone] Care Team Providers Care Travel Ot Name Role Phone Tomer Garner MD Primary Care Provider [phone] Reason for Visit * Reason Comments Hemodialysis * Episode Based Medications (Routine) - Authorized Specialty Diagnoses / Procedures Referred By Contac t Referred To Contact Diagnoses ESRD (end stage renal disease) (HCC) Anemia in stage 5 chronic kidney disease, not on chronic dialysis Procedures [place] EPOETIN PITER, NON-ESRD [place] EPOETIN PITER, 100 UNITS ESRD Yonny Saldivar MD [address] [place] [address] [address] [place] [address] Referral ID Status Reason Start Date Expiration Date V isits Requested Visits Authorized [id number] Authorized 08/22/2023 02/21/2024 999 0 Encounter Details [...] (Oral) 1981,04/11 Pneumococcal Conjugate Vacci ne, 20-valent ([id number]) 11/17/2022 Seasonal Influenza, PF, 6 M & [...] [address] [place] [address] 09/23/2023 5:30 AM EST Treatment Hemodialysis [facility] [address] [place] [address] 09/26/2023 5:30 AM EST Treatment Hemodialysis [facility] [address] [place] [address] 09/28/2023 5:30 AM EST Treatment Hemodialysis [address], [place] [address] 09/30/2023 5:30 AM EST Treatment Hemodialysis [address], [place] [address] 10/03/2023 5:30 AM EST Treatment Hemodialysis [address], [place] [address] 10/04/2023 2:30 PM EST Office Visit [facility], [facility] [address] [facility] [place] [address] Kori Scott MD [address] [place] [facility] [place] [address] 10/05/2023 5:30 AM EST Treatment Hemodialysis [address], [place] [address] 10/07/2023 5:30 AM EST Treatment Hemodialysis [address] [place] [address] 10/10/2023 5:30 AM EST Treatment Hemodialysis [address], [place] [address] Health Maintenance Due Date Last Done Comments [...] Advance Directives occurred with: Patient Care Teams Travel Ot Relationship Specialty Start Date End Date Tomer Garner MD [address] [facility] PCP - General 09/19/02 documented as of this encounter
--- OUTSIDE RECORDS SUMMARY | 2024-03-17 14:42 | External Medical Summary | Summary of Care ---
Author Name Unknown Organization [facility] Address [address] [place] [address] Phone [phone] Care Team Providers Care Asphalt Distributor Tender Name Role Phone Tomer Garner MD [...] UNITS ESRD Yonny Saldivar MD [address] [place] [address] [address] [place] [address] Referral ID Status Reason Start Date Expiration Date V isits Requested Visits Authorized [id number] Authorized 08/22/2023 02/21/2024 999 0 Encounter Details [...] (Oral) 1981,04/11 Pneumococcal Conjugate Vacci ne, 20-valent ([id number]) 11/17/2022 Pneumococcal Polysaccharide PPV23 (Pneumovax) 02/03/2004 Seasonal [...] Treatment Hemodialysis [address], [place] [address] 09/23/2023 5:30 AM EST Treatment Hemodialysis [address], [place] [address] 09/26/2023 5:30 AM EST Treatment Hemodialysis [address], [place] [address] 09/28/2023 5:30 AM EST Treatment Hemodialysis [address], [place] [address] 09/30/2023 5:30 AM EST Treatment Hemodialysis [address], [place] [address] 10/03/2023 5:30 AM EST Treatment Hemodialysis [address], [place] [address] 10/04/2023 2:30 PM EST Office Visit Rheumatology, [facility] [address] [facility] [place] [address] Kori Scott MD [address] [facility] [place] [address] 10/05/2023 5:30 AM EST Treatment Hemodialysis [address], [place] [address] 10/07/2023 5:30 AM EST Treatment Hemodialysis [address] [place] [address] 10/10/2023 5:30 AM EST Treatment Hemodialysis [facility] [address] [place] [address] Health Maintenance Due Date Last Done Comments [...] 69 % 07/25/2023 5:31 PM EST [facility] Ultra Filtration Volume 4.0 L 07/25/2023 5:31 PM EST [facility] Dialysis Session Length 4.0 hours 07/25/2023 5:31 PM EST [facility] Blood Venous blood specimen / Unknown Venipuncture / Unknown 07/25/2023 10:45 AM EST 07/25/2023 10:45 AM EST Yonny Saldivar MD LAB BLOOD ORDERAB LES [facility] [address] [place] [address] documented in this encounter Visit [...] 8:56 AM EST 4 mcg Epoetin Sloan [address] UNIT/ML inj 9,000 Units 9,000 Units, Intravenous, [...] Advance Directives occurred with: Patient Care Teams Asphalt Distributor Tender Relationship Specialty Start Date End Date Tomer Garner MD [address] [place] [address] PCP - General 09/19/02 documented as of this encounter
--- NOTE | 2024-03-17 15:44 | Critical Care Consultation ---
Date of Consultation March 17, 2024 Assessment & Plan (1) Ileus: (2) Hypotension: (3) Anemia in ESRD (end-stage renal disease): (4) ESRD on peritoneal dialysis: Plan Impression: 44-year-old male with end-stage renal disease and prior stroke on dialysis admitted with low blood pressure and potential ileus versus bowel obstruction. Recommendations: 1. Agree with general surgery consultation. Currently on Zosyn which will be continued for now. Procalcitonin unreliable. Check lactate and blood gas. Trend white blood cell count 2. N.p.o. for now. Continue PPI. Mildly elevated lipase which is nonspecific. No significant signs of pancreatitis on imaging of the abdomen. Hold additional interventions for now. 3. Would not institute pressors currently. If the patient's lactate is elevated or significant acidosis identified on blood gas, pressors may be required. Check random cortisol and consider stress dose steroids if relative adrenal insufficiency identified 4. Hyperkalemia and acidosis with end-stage renal disease. Management per nephrology. 5. Glycemic control per protocol. 6. DVT prophylaxis. Patient receiving Eliquis as an outpatient. Hold for now in case the patient requires invasive procedures. Additional recommendations and plan will be dictated based on results of the patient's testing and clinical response. The above recommendations were discussed with the bedside critical care nurse as well as with the admitting hospitalist. History of Present Illness Attending Physician: Kiana Davies MD History of Present Illness Asked by hospitalist to assist in evaluation management of this patient admitted with bowel obstruction and hypotension. History is obtained from review the electronic medical record and discussion with the hospitalist. Patient is nonverbal but does nod head to questions. The patient is a 44-year-old male with a prior history of stroke. He was just admitted to acute rehab from [facility] within the last 24 hours and developed nausea and vomiting this morning. He was evaluated in the emergency room. He is found to be distended. CT abdomen showed ileus versus early bowel obstruction with potential transitional point. Surgery has been consulted. An NG tube was placed. He has been administered antibiotics. Nephrology consultation was obtained and they were concerned about the patient's low blood pressure which prompted patient to be transferred to the ICU. I discussed with the hospitalist. The patient was en route to the ICU and was assessed immediately on arrival. He is nonverbal but again in no apparent distress. An NG tube is in place with drainage of slightly feculent material. He is tympanitic and complains of abdominal discomfort with palpation. Allergies Allergy/AdvReac Type Severity Reaction Status Date / Time No Known Allergies Allergy Verified 03/17/24 11:47 Home Medications Medication Instructions Recorded Confirmed Type apixaban 5 mg tablet (Eliquis) 5 mg PO BID 03/17/24 03/17/24 History atorvastatin 40 mg tablet 40 mg PO HS 03/17/24 03/17/24 History calcium acetate(phosphat bind) 667 2,001 mg PO UD 03/17/24 03/17/24 History mg capsule cinacalcet 30 mg tablet 60 mg PO QPM 03/17/24 03/17/24 History cyclosporine modified 25 mg capsule 50 mg PO BID 03/17/24 03/17/24 History febuxostat 80 mg tablet 80 mg PO QAM 03/17/24 03/17/24 History ferric citrate 210 mg iron tablet 210 mg PO AC 03/17/24 03/17/24 History (Auryxia) metoprolol succinate 100 mg 100 mg PO QAM 03/17/24 03/17/24 History tablet,extended release 24 hr omeprazole 20 mg capsule,delayed 20 mg PO BID 03/17/24 03/17/24 History release vitamin B complex and vitamin C 1 cap PO DAILY 03/17/24 03/17/24 History no.20-folic acid 1 mg capsule Patient History Medical History (Updated 03/17/24 @ 15:39 by Chay Velez MD) Legionnaires' disease Diastolic congestive heart failure Failed kidney transplant Gouty arthropathy Granulomatosis with polyangiitis with renal involvement Surgical History (Updated 03/17/24 @ 11:50 by Lexi Ballard PA-C) History of kidney transplant Family History (Updated 03/17/24 @ 11:50 by Lexi Ballard PA-C) Other Cancer Diabetes Hypertension Social History Smoking Status: Never smoker Feels Safe at Home: Yes Review of Systems Review of Systems: Please refer to hospitalist note. Unable to obtain review of systems with from the patient Physical Exam Constitutional: WD/WN, vitals as above Neck: trachea midline, no thyromegaly Respiratory: normal respiratory effort, lungs clear to auscultation Cardiovascular: RRR, no murmur, no edema Gastrointestinal (Abdomen): Inspection/Auscultation: + abdomen distended and + hypoactive bowel sounds Percussion/Palpation: + abdomen tender and + tympanic to percussion Musculoskeletal: Extremities: extremities normal to inspection Skin: no rashes, warm and dry Neurologic: Nonfocal exam Lymphatic: no cervical lymphadenopathy Results & Data Results & Data Vital Signs (Past 12 Hours) Vital Signs Temp Pulse Pulse Resp BP BP Pulse Ox 03/17/24 14:00 36.8 C 16 91/52 L 100 03/17/24 13:30 36.7 C 105 H 16 90/52 L 100 03/17/24 12:50 107 H 18 74/51 L 92 03/17/24 12:03 106 H 16 74/50 L 97 03/17/24 12:00 106 H 16 73/46 L 97 03/17/24 11:39 116 H 81/53 L 94 03/17/24 10:00 109 H 15 89/66 L 99 03/17/24 10:00 114 H 33 H 89/66 L 94 03/17/24 09:35 116 H 20 98 03/17/24 09:27 116 H 03/17/24 09:07 36.4 C L 117 H 20 83/65 L 98 O2 Del Method O2 Flow Rate 03/17/24 14:00 Nasal Cannula 3 03/17/24 13:30 Nasal Cannula 3 03/17/24 12:50 Nasal Cannula 2 03/17/24 12:03 Nasal Cannula 2 03/17/24 12:00 Nasal Cannula 2 03/17/24 11:39 Nasal Cannula 3 03/17/24 10:00 03/17/24 10:00 Nasal Cannula 2 03/17/24 09:35 Nasal Cannula 2 03/17/24 09:27 03/17/24 09:07 Nasal Cannula 2 Critical Care Results & Data Vital Signs (Past 12 Hours) Vital Signs Temp Pulse Pulse Resp BP BP Pulse Ox 03/17/24 14:00 36.8 C 16 91/52 L 100 03/17/24 13:30 36.7 C 105 H 16 90/52 L 100 03/17/24 12:50 107 H 18 74/51 L 92 03/17/24 12:03 106 H 16 74/50 L 97 03/17/24 12:00 106 H 16 73/46 L 97 03/17/24 11:39 116 H 81/53 L 94 03/17/24 10:00 109 H 15 89/66 L 99 03/17/24 10:00 114 H 33 H 89/66 L 94 03/17/24 09:35 116 H 20 98 03/17/24 09:27 116 H 03/17/24 09:07 36.4 C L 117 H 20 83/65 L 98 O2 Del Method O2 Flow Rate 03/17/24 14:00 Nasal Cannula 3 03/17/24 13:30 Nasal Cannula 3 03/17/24 12:50 Nasal Cannula 2 03/17/24 12:03 Nasal Cannula 2 03/17/24 12:00 Nasal Cannula 2 03/17/24 11:39 Nasal Cannula 3 03/17/24 10:00 03/17/24 10:00 Nasal Cannula 2 03/17/24 09:35 Nasal Cannula 2 03/17/24 09:27 03/17/24 09:07 Nasal Cannula 2 Lab & Micro Results (Past 24 Hours) RBC 3.06 M/uL (4.70-6.10) L 03/17/24 WBC 18.75 K/ul (4.8-10.8) H 03/17/24 Hgb 9.1 g/dl (14.0-18.0) L 03/17/24 Hct 28.5 % (42.0-52.0) L 03/17/24 MCV 93.1 fL (80.0-100.0) 03/17/24 MCH 29.7 pg (25.0-34.0) 03/17/24 MCHC 31.9 g/dL (32.0-36.0) L 03/17/24 RDW Standard Deviation 56.2 fL (36.4-46.3) H 03/17/24 RDW Coefficient of Variation 17.2 % (11.5-14.5) H 03/17/24 Plt Count 338 K/uL (130-400) 03/17/24 MPV 9.9 fL (9.4-12.4) 03/17/24 Nucleated Red Blood Cells % (auto) 0.2 % 03/17 Nucleated RBC Absolute Count (auto) 0.03 K/uL (0.00-0.12) 0 03/17/24 Neutrophils (%) (Auto) 78.8 % 03/17/24 Lymphocytes (%) (Auto) 8.4 % 03/17/24 Monocytes # (Auto) 1.71 K/uL (0.11-0.59) H 03/17/24 Eosinophils # (Auto) 0.36 K/uL (0.00-0.50) 03/17/24 Immature Granulocyte % (Auto) 1.3 % 03/17/24 Neutrophils # (Auto) 14.76 K/uL (1.40-6.50) H 03/17/24 Lymphocytes # (Auto) 1.57 K/uL (1.20-3.40) 03/17/24 Monocytes # (Auto) 1.71 K/uL (0.11-0.59) H 03/17/24 Eosinophils # (Auto) 0.36 K/uL (0.00-0.50) 03/17/24 Basophils # (Auto) 0.10 K/uL (0.00-0.20) 03/17/24 Immature Granulocyte # (Auto) 0.25 K/uL (0.01-0.20) H 03/17 Na 136 mmol/L (136-145) 03/17/24 K 5.2 mmol/L (3.5-5.1) H 03/17/24 Cl 93 mmol/L (98-107) L 03/17/24 CO2 23 mmol/L (21-32) 03/17/24 Anion Gap 20 (3-11) H 03/17/24 BUN 58 mg/dl (6-23) H 03/17/24 Creatinine 10.36 mg/dl (0.6-1.4) H* 03/17/24 Estimated GFR ( Amer) 6.3 ml/min 03/17/24 Estimated GFR (Non-Af Amer) 5.4 ml/min 03/17/24 BUN/Creatinine Ratio 5.6 (10-20) L 03/17/24 Glu 113 mg/dl (70-99(Fasting)) H 03/17/24 Ca 9.9 mg/dl (8.6-10.3) 03/17/24 Total Bilirubin 0.9 mg/dl (0.2-1.0) 03/17/24 AST 37 U/L (13-39) 03/17/24 ALT 34 U/L (7-52) 03/17/24 Alkaline Phosphatase 115 U/L (34-104) H 03/17/24 TP 9.0 gm/dl (6.0-8.3) H 03/17/24 Albumin 4.5 gm/dl (3.4-5.0) 03/17/24 Globulin 4.5 gm/dl (2.5-4.0) H 03/17/24 Albumin/Globulin Ratio 1.0 (0.9-2) 03/17/24 Calcium Level 9.9 mg/dl (8.6-10.3) 03/17/24 09:55 Prothromb Time International Ratio 1.2 (0.9-1.1) H 03/17/24 09 :55 Diagnostic Findings (Past 24 Hours) Chest X-Ray 03/17/24 09:26 XR chest 1V portable CLINICAL HISTORY: abd pain TECHNIQUE: Single frontal radiograph of the chest was obtained. Comparison: None available at the time of this dictation. FINDINGS: The catheter is unchanged. The cardiomediastinal silhouette is normal. Lungs are underinflated but clear. No evidence of pleural effusion or pneumothorax. IMPRESSION: No acute chest disease. ACT 112: Negative or not required by law. Electronically signed by: David Torrez M.D. 03/17/2024 10:15 AM Abdomen/Pelvis CT 03/17/24 10:14 CT abd pelvis wo con CLINICAL HISTORY: poss obstruc, dialysis pt TECHNIQUE: Helical axial images of the abdomen and pelvis were obtained. Automated dose lowering techniques and/or adjustment according to patient size were utilized for this exam. This exam was performed without intravenous contrast. CT DOSE: 2201.42 mGy.cm COMPARISON: None available at the time of this dictation. FINDINGS: Lower chest: No acute abnormality. Liver: Unremarkable. No focal lesions are seen. Gallbladder and biliary tree: No calcified gallstones. Normal caliber wall. No intra- or extrahepatic biliary ductal dilation. Pancreas: Unremarkable, no focal lesions. Spleen: Splenule is incidentally noted. Adrenals: Unremarkable. Kidneys and ureters: Atrophic bilateral kidneys noted. An atrophic transplant kidney is noted in the left lower quadrant. Bladder: Limited evaluation due to underdistention. Reproductive organs: Unremarkable. Bowel: Numerous dilated loops of large and small bowel are seen. There is apparent tethering of 2 loops of small bowel in one loop of large bowel in the right lower quadrant although this does not represent a transition point as distal loops of bowel are also dilated. Lymph nodes Retroperitoneal: Unremarkable. Pelvic: Unremarkable. Mesenteric: Unremarkable. Peritoneum: Peritoneal catheter is seen. No significant free fluid. Vessels: Unremarkable. Abdominal wall: Unremarkable. Bones: Degenerative changes in the visualized spine. IMPRESSION: Numerous dilated loops of large and small bowel without a firm transition point. Findings may represent ileus versus partial obstruction. There may be a focus of adhesions in the right lower quadrant. ACT 112: Negative or not required by law. Electronically signed by: David Torrez M.D. 03/17/2024 10:53 AM I & O Totals 24 Hours 03/16/24 03/17/24 03/18/24 06:59 06:59 06:59 Intake Total 500 / 500 Balance 500 / 500 Cumulative 03/17/24 09:00 thru 03/17/24 10:58 Intake Total 500 Balance 500 RT Ventilator Mngmt (Last Documented) Ventilator Ordered Settings Respiratory Rate 16 03/17/24 14:00 Ventilator - PT Measurements Respiratory Rate 16 Coding Level of Care Code 74330 IN/OBS CONSULT LVL 4,60M Diagnoses Ileus K56.7 Hypotension I95.9 Anemia in ESRD (end-stage renal disease) N18.6; D63.1 ESRD on peritoneal dialysis N18.6; Z99.2
[2024-03-17] MEDS: ENOXAPARIN INJ 120 MG/0.8 ML SYR SQ SCH (16:14)
[2024-03-17] MEDS: MIDODRINE HCL 2.5 MG TAB PO SCH (16:25)
[2024-03-17] MEDS ORDERED: STAT IV Infusion **Titration per Protocol STA (16:30)
[2024-03-17 16:36] LABS: iSTAT Allen Test Pass; iSTAT Art Bld Gas pCO2 Correct 34 mmHg (35-46); iSTAT Art Bld Gas pH Corrected 7.384 (7.35-7.45); iSTAT Arterial Blood Gas HCO3 20 meg/L (19-24); iSTAT Arterial Blood Gas pCO2 32 mmHg (35-46); iSTAT Arterial Blood Gas pO2 50 mmHg (80-95); iSTAT Arterial Blood Gas pO2 C 54; iSTAT Carbon Dioxide 21 mmol/L (24-31); iSTAT Hematocrit 27 % (42-52); iSTAT Hemoglobin 9.2 g/dl (14.0-18.0); iSTAT Potassium 4.9 mmol/L (3.3-5.0); iSTAT Site R Radial; iSTAT Sodium 136 mmol/L (135-144)
[2024-03-17] MEDS: PIPER/TAZO 4.5g in D5W MINI-B 100 ML IV ONE (17:00)
[2024-03-17] MEDS: PHENYLEPHRINE/NSS 25 MG/250 ML BAG IV SCH (17:00)
[2024-03-17] MEDS ORDERED: METOPROLOL TARTRATE 1 MG/ML VIAL IV SCH (18:00)
--- NOTE | 2024-03-17 19:36 | Surgery Consultation ---
Date of Consultation March 17, 2024 Assessment & Plan (1) Ileus: The patient has been admitted on the hospital service into the intensive care unit: There is concern the patient has underlying sepsis and a definitive source has not yet been identified Will defer further management of this condition to the ICU staff and hospital service. The patient is receiving broad-spectrum antibiotics in the form of Zosyn. Appropriate cultures have been sent. He is receiving intravenous fluids. If patient remains hypotensive pressors may be required From a general surgery perspective we recommend the following: Patient may be suffering from either an ileus or small bowel obstruction Maintain n.p.o. status for the present time Hydrate with IV fluids An NG tube has been placed and would recommend continuing this modality until patient has improvement of his abdominal exam and return of bowel function Once patient has return of bowel function and improvement abdominal exam diet can be initiated beginning with clear liquids but the timing of this is yet to be determined At the present time the patient's abdominal exam is benign and therefore do not feel a emergent surgical procedures indicated at this time Additional recommendations be forthcoming based on his clinical course as it unfolds History of Present Illness Reason for Consultation: Small bowel obstruction Attending Physician: Kiana Davies MD History of Present Illness This is a 44-year-old male who has a recent history of a stroke. Patient was at [facility] in [place], [place] and he was recently transferred to [facility] for rehabilitation. While at the rehab facility there was concern that patient was having some increasing abdominal distention with some nausea and vomitingdue to these issues there is concern the patient may have had a small bowel obstruction and he was therefore transferred to the hospital for further evaluation. I visited with the patient at the bedside he specifically denies having had any abdominal pain. He notes that it has been approximately 3 days since his most recent bowel movement and he is passing very little in the way of flatus. He does report having had prior abdominal surgeries in the form of a peritoneal dialysis catheter as well as a kidney transplant. To the best of his knowledge she has never had a small bowel obstruction in the past. Since arrival to the hospital the patient has had labs and imaging which independent reviewed. A chest x-ray showed no acute disease. A CT scan of the abdomen pelvis showed concern that patient had numerous dilated loops of large and small bowel without a definite transition point. These findings were felt to represent either an ileus versus a partial small bowel obstruction. There was also concern the patient had a focused adhesions in the right lower quadrant. Labs included CBC were white blood cell count was elevated 18.7. Hemoglobin and hematocrit were 9.1 and 28.5. Platelet count was normal. Chemistry profile showed sodium and potassium were normal. His BUN and creatinine were 58 and 10.3. A lactic acid level was nonelevated. An MRSA nasal screen was noted to be negative. The patient was tested for COVID which was negative. Coagulation studies revealed an INR of 1.2. An ABG was performed that did not reveal any acidosis Since arrival to the hospital the patient was noted to be febrile and tachycardic. He was also noted to have a relative hypotension and due to this there was concern that patient had underlying sepsis. He has been initiated on empiric antibiotics and due to concern for small bowel obstruction an NG tube has been placed and is draining feculent material. At the time my interview the patient was resting comfortably bed he was no distress. Allergies Allergy/AdvReac Type Severity Reaction Status Date / Time No Known Allergies Allergy Verified 03/17/24 11:47 Home Medications Medication Instructions Recorded Confirmed Type apixaban 5 mg tablet (Eliquis) 5 mg PO BID 03/17/24 03/17/24 History atorvastatin 40 mg tablet 40 mg PO HS 03/17/24 03/17/24 History calcium acetate(phosphat bind) 667 2,001 mg PO UD 03/17/24 03/17/24 History mg capsule cinacalcet 30 mg tablet 60 mg PO QPM 03/17/24 03/17/24 History cyclosporine modified 25 mg capsule 50 mg PO BID 03/17/24 03/17/24 History febuxostat 80 mg tablet 80 mg PO QAM 03/17/24 03/17/24 History ferric citrate 210 mg iron tablet 210 mg PO AC 03/17/24 03/17/24 History (Auryxia) metoprolol succinate 100 mg 100 mg PO QAM 03/17/24 03/17/24 History tablet,extended release 24 hr omeprazole 20 mg capsule,delayed 20 mg PO BID 03/17/24 03/17/24 History release vitamin B complex and vitamin C 1 cap PO DAILY 03/17/24 03/17/24 History no.20-folic acid 1 mg capsule Patient History Medical History Legionnaires' disease Diastolic congestive heart failure Failed kidney transplant Gouty arthropathy Granulomatosis with polyangiitis with renal involvement Surgical History History of kidney transplant Family History Other Cancer Diabetes Hypertension Social History Smoking Status: Never smoker Hx Alcohol Use: No Hx Substance Use: No Preferred Language: Kinyarwanda Communication Ability: Unable Inspector Purchased Parts Required: No Beliefs That Will Affect Care: None Feels Safe at Home: Yes Assistive Devices: Walker Review of Systems Review of Systems: All systems reviewed & are unremarkable except as noted in HPI & below Constitutional: + fever Gastrointestinal: + nausea and + vomiting; no abdominal pa in Physical Exam Constitutional: WD/WN, vitals as above Eyes: no conjunctival abnormality ENMT: Ears: no hearing impairment and no external ear abnormality Neck: trachea midline Intravenous catheter noted in the right internal jugular position which is being utilized for hemodialysis Respiratory: normal respiratory effort; no respiratory distress and no labored breathing Cardiovascular: Rate/Rhythm: regular rate, regular rhythm and + tachycardic Gastrointestinal (Abdomen): Abdomen is noted to have mild to moderate distention. It is nonrigid however. There is no pain with palpation of his abdomen. There is no rebound tenderness or guarding. The patient does have a peritoneal dialysis catheter in place and the insertion site looks clean without any signs of erythema or purulent drainage. Musculoskeletal: No calf tenderness Skin: no rashes Neurologic: The patient is noted to have expressive aphasia from his recent stroke Results & Data Vital Signs (Past 12 Hours) Vital Signs Temp Pulse Pulse Resp BP BP Pulse Ox 03/17/24 17:45 89/57 L 03/17/24 17:44 38.0 C H 103 H 26 H 99 03/17/24 17:30 94/54 L 03/17/24 17:05 37.9 C H 100 H 24 99 03/17/24 17:00 79/45 L 03/17/24 16:59 37.9 C H 102 H 25 H 98 03/17/24 16:32 38.0 C H 105 H 24 99 03/17/24 16:20 66/40 L 03/17/24 16:06 38.1 C H 106 H 23 93 03/17/24 16:00 03/17/24 15:43 85/54 L 03/17/24 15:42 109 H 18 100 03/17/24 14:00 36.8 C 16 91/52 L 100 03/17/24 13:30 03/17/24 13:30 36.7 C 105 H 16 90/52 L 100 03/17/24 12:50 107 H 18 74/51 L 92 03/17/24 12:03 106 H 16 74/50 L 97 03/17/24 12:00 106 H 16 73/46 L 97 03/17/24 11:39 116 H 81/53 L 94 03/17/24 10:00 109 H 15 89/66 L 99 03/17/24 10:00 114 H 33 H 89/66 L 94 03/17/24 09:35 116 H 20 98 03/17/24 09:27 116 H 03/17/24 09:07 36.4 C L 117 H 20 83/65 L 98 O2 Del Method O2 Flow Rate 03/17/24 17:45 03/17/24 17:44 Nasal Cannula 2 03/17/24 17:30 03/17/24 17:05 03/17/24 17:00 03/17/24 16:59 03/17/24 16:32 03/17/24 16:20 03/17/24 16:06 03/17/24 16:00 Nasal Cannula 2 03/17/24 15:43 03/17/24 15:42 03/17/24 14:00 Nasal Cannula 3 03/17/24 13:30 Nasal Cannula 3 03/17/24 13:30 Nasal Cannula 3 03/17/24 12:50 Nasal Cannula 2 03/17/24 12:03 Nasal Cannula 2 03/17/24 12:00 Nasal Cannula 2 03/17/24 11:39 Nasal Cannula 3 03/17/24 10:00 03/17/24 10:00 Nasal Cannula 2 03/17/24 09:35 Nasal Cannula 2 03/17/24 09:27 03/17/24 09:07 Nasal Cannula 2 PG Care Time/CCT Total # of Minutes Spent Total Time Spent with Patient: Total time spent is greater than 50% in coordination of care (as documented) at patient's floor/unit and/or counseling patient: Coding Level of Care Code 70085 IN/OBS CONSULT LVL 5,80M Diagnoses Ileus K56.7
[2024-03-17] MEDS ORDERED: ACETAMINOPHEN 325 MG TAB PO PRN (20:31)
[2024-03-17] MEDS: ACETAMINOPHEN 1,000 MG/100 ML VIAL IV PRN (20:53)
[2024-03-17] MEDS: PANTOprazole 40 MG in SYRINGE 0 ML IV SCH (20:53)
[2024-03-17] MEDS ORDERED: GLUCAGON FOR INJ 1 MG VIAL SQ PRN (21:05)
[2024-03-17] MEDS ORDERED: CARBOHYDRATES FOR HYPOGLYCEMIA PO PRN (21:05)
[2024-03-17] MEDS ORDERED: GLUCOSE 10 TAB/TUBE PO PRN (21:05)
[2024-03-17] MEDS ORDERED: DEXTROSE 50% 50 ML SYRINGE IV PRN (21:05)
[2024-03-17] MEDS ORDERED: GLUCOSE 40% GEL 15 GM TUBE PO PRN (21:05)
[2024-03-17] MEDS: HYDROCORTISONE SOD 100 MG in SYRINGE 0 ML IV STA (21:42)
[2024-03-18] MEDS: PIPERACILLIN/TAZOBACTAM 4.5 GM in DEXTROSE 5% MINI-B 100 ML IV SCH (00:24)
[2024-03-18] MEDS: ICU Protocol for HYPERglycemia SCH (00:24)
[2024-03-18] MEDS: HYDROCORTISONE SOD 50 MG in SYRINGE 0 ML IV SCH (04:09)
[2024-03-18 05:08] LABS: Albumin Level 3.7 gm/dl (3.4-5.0); BUN Creatinine Ratio 6.2 (10-20); Bilirubin,Total 1.2 mg/dl (0.2-1.0); Calcium 8.9 mg/dl (8.6-10.3); Creatinine Clr Calc Pharmacy 9.6 ml/min; Est GFR (African American) 5.5 ml/min; Est GFR (Non-African American) 4.8 ml/min; Globulin 3.8 gm/dl (2.5-4.0); Magnesium 2.6 mg/dl (1.7-2.4); Phosphorus 9.1 mg/dl (2.5-4.9); Potassium 5.7 mmol/L (3.5-5.1); Total Protein 7.5 gm/dl (6.0-8.3)
[2024-03-18 05:27] LABS: Hematocrit (blood only) 21.3 % (42.0-52.0); Hemoglobin 6.7 g/dl (14.0-18.0); Mean Corpuscular Hemoglobin 29.6 pg (25.0-34.0); Mean Corpuscular Hgb Conc 31.5 g/dL (32.0-36.0); Mean Corpuscular Volume 94.2 fL (80.0-100.0); Mean Platelet Volume 9.7 fL (9.4-12.4); Nucleated RBC # (auto) 0.02 K/uL (0.00-0.12); Nucleated RBC % (auto) 0.1 %; Platelet Count 276 K/uL (130-400); RDW Coefficient of Variation 17.2 % (11.5-14.5); RDW Standard Deviation 57.1 fL (36.4-46.3); Red Blood Count 2.26 M/uL (4.70-6.10); White Blood Count 14.84 K/ul (4.8-10.8)
[2024-03-18 06:04] LABS: Anisocytosis Present; Basophils # (auto) 0.08 K/uL (0.00-0.20); Basophils % (auto) 0.5 %; Eosinophils # (auto) 0.19 K/uL (0.00-0.50); Eosinophils % (auto) 1.3 %; Immature Granulocytes # (auto) 0.14 K/uL (0.01-0.20); Immature Granulocytes % (auto) 0.9 %; Lymphocytes # (auto) 1.16 K/uL (1.20-3.40); Lymphocytes % (auto) 7.8 %; Monocytes # (auto) 0.81 K/uL (0.11-0.59); Monocytes % (auto) 5.5 %; Neutrophils # (auto) 12.46 K/uL (1.40-6.50); Polychromasia 1+
--- NOTE | 2024-03-18 06:19 | Electrocardiogram Report ---
Test Reason : Blood Pressure : / mmHG Vent. Rate : 112 BPM Atrial Rate : 112 BPM P-R Int : 144 ms QRS Dur : 088 ms QT Int : 326 ms P-R-T Axes : 034 041 024 degrees QTc Int : 444 ms Sinus tachycardia Possible Left atrial enlargement Borderline ECG No previous ECGs available Confirmed by Flako Lerner ([id number]) on 03/18/2024 6:18:38 AM Referred By: NICOLE THORNE Confirmed By:Flako Lerner
--- NOTE | 2024-03-18 07:03 | Critical Care Progress Note ---
Date of Service March 18, 2024 Assessment & Plan (1) Ileus: (2) Hypotension: (3) Anemia in ESRD (end-stage renal disease): (4) ESRD on peritoneal dialysis: Plan Impression: 44-year-old male with end-stage renal disease and prior stroke on dialysis admitted with low blood pressure and potential ileus versus bowel obstruction. PLAN: Neuro: Prior CVA -Communication via shaking head yes and no Resp: 2 L nasal cannula wean as tolerated CV: Hypotension -Suspect preload down: Anemic, relative adrenal insufficiency: Improving after stress dose steroids administration Fluids/Renal: End-stage renal disease on dialysis -Probable dialysis today -Nephrology following ID: Zosyn for possible bowel source GI/Nutrition: Ileus versus SBO -N.p.o. with NG drainage -General surgery following - Clamp NG today, wait 4-6 hours and access for return of bowel function: moved bowels overnight. Heme: Anemia Systemic anticoagulation - Patient requires systemic anticoagulation for stroke prevention, was previously on aspirin and Eliquis, was also previously on aspirin and Brilinta at [facility]. Confirmed drop in hemoglobin from 9-6. Patient had increasing vasopressor requirements overnight will require dialysis today. Given significant hypotension and need for dialysis, we will administer 2 units packed red blood cells as the patient is expected to continue on systemic anticoagulation and unclear the etiology of the 2 g drop in 24 hours. DVT prophylaxis: Heparin 7500 3 times daily Endocrine: ICU hyperglycemia protocol -Stress dose steroids initiated for relatively low random cortisol Vascular access: PIV Code Status: Full code Disposition: ICU given concerns for hypotension and need for dialysis today Admission and Anticipated Discharge Date Admission Date: March 17, 2024 Supervising Physician Co-Signing Physician Notes I have personally spent 45 minutes of critical care time in the direct management of this patient. This is a life/limb threatening event. This includes time spent evaluating patient, direct bedside care, chart review, placing orders, interpretation of diagnostic studies, discussion with consultants, patient, and/or family members regarding treatment decisions, as well as other required patient management activities. This time is exclusive of all separately billable procedures, and teaching time and separate from and in addition to any other critical care service time. Subjective Denies abdominal pain. Moved bowels overnight. Tolerating dialysis Physical Exam Constitutional: WD/WN, vitals as above Neck: trachea midline, no thyromegaly Respiratory: normal respiratory effort, lungs clear to auscultation Cardiovascular: RRR, no murmur, no edema Gastrointestinal (Abdomen): Percussion/Palpation: abdomen soft and normal to percussion; abdomen nontender, abdomen not rigid and no dullness to percussion Musculoskeletal: Extremities: extremities normal to inspection Skin: no rashes, warm and dry Neurologic: Nonfocal exam Lymphatic: no cervical lymphadenopathy Results & Data Results & Data Vital Signs (Past 12 Hours) Vital Signs Temp Pulse Resp BP Pulse Ox Pulse Ox O2 Del Method 03/18/24 06:48 36.9 C 83 21 100 03/18/24 06:45 122/65 03/18/24 06:45 122/65 03/18/24 06:45 122/65 03/18/24 06:42 36.9 C 79 18 86 L 03/18/24 06:39 36.9 C 79 18 100 03/18/24 06:30 116/68 03/18/24 06:21 36.9 C 81 19 100 03/18/24 06:18 36.8 C 83 18 100 03/18/24 06:15 116/55 L 03/18/24 06:15 116/55 L 03/18/24 06:09 36.8 C 86 17 100 03/18/24 06:03 36.8 C 81 18 100 03/18/24 06:00 110/59 L 03/18/24 06:00 110/59 L 03/18/24 05:54 36.8 C 85 18 99 03/18/24 05:45 100/60 03/18/24 05:45 100/60 03/18/24 05:45 100/60 03/18/24 05:27 36.8 C 86 18 99 03/18/24 05:15 102/49 L 03/18/24 05:15 102/49 L 03/18/24 05:12 36.8 C 88 18 98 03/18/24 05:00 94/43 L 03/18/24 05:00 94/43 L 03/18/24 05:00 36.8 C 89 18 98 03/18/24 04:45 88/51 L 03/18/24 04:45 36.9 C 88 19 100 03/18/24 04:30 37.0 C 90 19 96 03/18/24 04:30 93/52 L 03/18/24 04:30 93/52 L 03/18/24 04:21 37.1 C 91 H 17 97 03/18/24 04:15 103/53 L 03/18/24 04:15 103/53 L 03/18/24 04:04 86/48 L 03/18/24 04:00 96 Nasal Cannula 03/18/24 04:00 37.3 C 97 H 18 95 03/18/24 04:00 86/41 L 03/18/24 04:00 86/41 L 03/18/24 03:56 88/45 L 03/18/24 03:54 37.3 C 97 H 22 03/18/24 03:51 37.3 C 99 H 21 03/18/24 03:30 110/57 L 03/18/24 03:30 37.3 C 102 H 21 03/18/24 03:27 37.3 C 102 H 20 96 03/18/24 03:15 88/51 L 03/18/24 03:15 88/51 L 03/18/24 03:15 88/51 L 03/18/24 03:06 37.4 C 96 H 23 93 03/18/24 03:03 37.4 C 94 H 22 95 03/18/24 03:00 85/41 L 03/18/24 03:00 85/41 L 03/18/24 02:48 37.4 C 87 22 91 03/18/24 02:45 112/47 L 03/18/24 02:45 112/47 L 03/18/24 02:45 112/47 L 03/18/24 02:45 112/47 L 03/18/24 02:45 112/47 L 03/18/24 02:30 37.4 C 92 H 24 95 03/18/24 02:30 115/44 L 03/18/24 02:21 37.4 C 96 H 22 94 03/18/24 02:15 96/50 L 03/18/24 02:15 96/50 L 03/18/24 02:15 96/50 L 03/18/24 02:09 37.4 C 95 H 21 93 03/18/24 02:00 108/53 L 03/18/24 02:00 108/53 L 03/18/24 01:48 37.4 C 97 H 22 93 03/18/24 01:45 96/59 L 03/18/24 01:45 96/59 L 03/18/24 01:45 96/59 L 03/18/24 01:45 96/59 L 03/18/24 01:42 37.4 C 93 H 22 94 03/18/24 01:30 119/71 03/18/24 01:30 37.4 C 98 H 22 94 03/18/24 01:18 37.5 C 96 H 18 95 03/18/24 01:15 112/63 03/18/24 01:15 112/63 03/18/24 01:12 37.5 C 95 H 22 93 03/18/24 01:03 37.5 C 92 H 20 95 03/18/24 01:00 112/49 L 03/18/24 01:00 112/49 L 03/18/24 01:00 112/49 L 03/18/24 00:57 37.6 C H 91 H 23 93 03/18/24 00:48 37.6 C H 89 23 91 03/18/24 00:45 130/60 03/18/24 00:45 130/60 03/18/24 00:36 37.6 C H 96 H 24 94 03/18/24 00:30 128/58 L 03/18/24 00:30 128/58 L 03/18/24 00:12 37.7 C H 94 H 21 91 03/18/24 00:00 124/59 L 03/18/24 00:00 124/59 L 03/18/24 00:00 124/59 L 03/18/24 00:00 37.7 C H 93 H 23 93 03/18/24 00:00 99 H 03/18/24 00:00 92 Nasal Cannula 03/17/24 23:57 37.7 C H 92 H 24 96 03/17/24 23:45 120/56 L 03/17/24 23:45 120/56 L 03/17/24 23:30 96/58 L 03/17/24 23:15 37.9 C H 96 H 18 95 03/17/24 23:07 98/48 L 03/17/24 23:00 38.0 C H 94 H 24 95 03/17/24 22:48 38.2 C H 100 H 22 95 03/17/24 22:45 99/44 L 03/17/24 22:45 99/44 L 03/17/24 22:36 38.2 C H 100 H 23 88/42 L 94 03/17/24 22:15 38.3 C H 105 H 21 94 03/17/24 22:15 124/58 L 03/17/24 22:03 38.4 C H 103 H 25 H 94 03/17/24 22:00 100/51 L 03/17/24 22:00 100/51 L 03/17/24 22:00 100/51 L 03/17/24 21:38 91/44 L 03/17/24 21:36 38.5 C H 110 H 25 H 93 03/17/24 21:30 77/48 L 03/17/24 21:30 38.5 C H 110 H 23 91 03/17/24 21:15 78/49 L 03/17/24 21:15 78/49 L 03/17/24 21:15 38.5 C H 108 H 25 H 94 03/17/24 21:03 38.5 C H 107 H 26 H 91 03/17/24 21:00 90/51 L 03/17/24 21:00 90/51 L 03/17/24 20:48 38.4 C H 101 H 25 H 94 03/17/24 20:45 82/48 L 03/17/24 20:45 82/48 L 03/17/24 20:45 82/48 L 03/17/24 20:45 82/48 L 03/17/24 20:30 77/46 L 03/17/24 20:27 38.4 C H 106 H 25 H 93 03/17/24 20:21 38.4 C H 108 H 24 95 03/17/24 20:00 89/51 L 03/17/24 19:47 38.3 C H 107 H 26 H 96 03/17/24 19:32 38.3 C H 108 H 25 H 97 03/17/24 19:30 89/55 L 03/17/24 19:30 89/55 L 03/17/24 19:30 89/55 L 03/17/24 19:30 89/55 L 03/17/24 19:29 38.3 C H 105 H 24 98 03/17/24 19:23 38.2 C H 102 H 25 H 98 03/17/24 19:00 90/53 L 03/17/24 19:00 90/53 L 03/17/24 19:00 90/53 L 03/17/24 19:00 90/53 L O2 Flow Rate 03/18/24 06:48 03/18/24 06:45 03/18/24 06:45 03/18/24 06:45 03/18/24 06:42 03/18/24 06:39 03/18/24 06:30 03/18/24 06:21 03/18/24 06:18 03/18/24 06:15 03/18/24 06:15 03/18/24 06:09 03/18/24 06:03 03/18/24 06:00 03/18/24 06:00 03/18/24 05:54 03/18/24 05:45 03/18/24 05:45 03/18/24 05:45 03/18/24 05:27 03/18/24 05:15 03/18/24 05:15 03/18/24 05:12 03/18/24 05:00 03/18/24 05:00 03/18/24 05:00 03/18/24 04:45 03/18/24 04:45 03/18/24 04:30 03/18/24 04:30 03/18/24 04:30 03/18/24 04:21 03/18/24 04:15 03/18/24 04:15 03/18/24 04:04 03/18/24 04:00 2 03/18/24 04:00 03/18/24 04:00 03/18/24 04:00 03/18/24 03:56 03/18/24 03:54 03/18/24 03:51 03/18/24 03:30 03/18/24 03:30 03/18/24 03:27 03/18/24 03:15 03/18/24 03:15 03/18/24 03:15 03/18/24 03:06 03/18/24 03:03 03/18/24 03:00 03/18/24 03:00 03/18/24 02:48 03/18/24 02:45 03/18/24 02:45 03/18/24 02:45 03/18/24 02:45 03/18/24 02:45 03/18/24 02:30 03/18/24 02:30 03/18/24 02:21 03/18/24 02:15 03/18/24 02:15 03/18/24 02:15 03/18/24 02:09 03/18/24 02:00 03/18/24 02:00 03/18/24 01:48 03/18/24 01:45 03/18/24 01:45 03/18/24 01:45 03/18/24 01:45 03/18/24 01:42 03/18/24 01:03/18/24 01:03/18/24 01:18 03/18/24 01:15 03/18/24 01:15 03/18/24 01:12 03/18/24 01:03 03/18/24 01:00 03/18/24 01:00 03/18/24 01:00 03/18/24 00:57 03/18/24 00:48 03/18/24 00:45 03/18/24 00:45 03/18/24 00:36 03/18/24 00:30 03/18/24 00:30 03/18/24 00:12 03/18/24 00:00 03/18/24 00:00 03/18/24 00:00 03/18/24 00:00 03/18/24 00:00 03/18/24 00:00 2 03/17/24 23:57 03/17/24 23:45 03/17/24 23:45 03/17/24 23:30 03/17/24 23:15 03/17/24 23:07 03/17/24 23:00 03/17/24 22:48 03/17/24 22:45 03/17/24 22:45 03/17/24 22:36 03/17/24 22:15 03/17/24 22:15 03/17/24 22:03 03/17/24 22:00 03/17/24 22:00 03/17/24 22:00 03/17/24 21:38 03/17/24 21:36 03/17/24 21:30 03/17/24 21:30 03/17/24 21:15 03/17/24 21:15 03/17/24 21:15 03/17/24 21:03 03/17/24 21:00 03/17/24 21:00 03/17/24 20:48 03/17/24 20:45 03/17/24 20:45 03/17/24 20:45 03/17/24 20:45 03/17/24 20:30 03/17/24 20:27 03/17/24 20:21 03/17/24 20:00 03/17/24 19:47 03/17/24 19:32 03/17/24 19:30 03/17/24 19:30 03/17/24 19:30 03/17/24 19:30 03/17/24 19:29 03/17/24 19:23 03/17/24 19:00 03/17/24 19:00 03/17/24 19:00 03/17/24 19:00 Critical Care Results & Data Vital Signs (Past 12 Hours) Vital Signs Temp Pulse Resp BP Pulse Ox Pulse Ox O2 Del Method 03/18/24 06:48 36.9 C 83 21 100 03/18/24 06:45 122/65 03/18/24 06:45 122/65 03/18/24 06:45 122/65 03/18/24 06:42 36.9 C 79 18 86 L 03/18/24 06:39 36.9 C 79 18 100 03/18/24 06:30 116/68 03/18/24 06:21 36.9 C 81 19 100 03/18/24 06:18 36.8 C 83 18 100 03/18/24 06:15 116/55 L 03/18/24 06:15 116/55 L 03/18/24 06:09 36.8 C 86 17 100 03/18/24 06:03 36.8 C 81 18 100 03/18/24 06:00 110/59 L 03/18/24 06:00 110/59 L 03/18/24 05:54 36.8 C 85 18 99 03/18/24 05:45 100/60 03/18/24 05:45 100/60 03/18/24 05:45 100/60 03/18/24 05:27 36.8 C 86 18 99 03/18/24 05:15 102/49 L 03/18/24 05:15 102/49 L 03/18/24 05:12 36.8 C 88 18 98 03/18/24 05:00 94/43 L 03/18/24 05:00 94/43 L 03/18/24 05:00 36.8 C 89 18 98 03/18/24 04:45 88/51 L 03/18/24 04:45 36.9 C 88 19 100 03/18/24 04:30 37.0 C 90 19 96 03/18/24 04:30 93/52 L 03/18/24 04:30 93/52 L 03/18/24 04:21 37.1 C 91 H 17 97 03/18/24 04:15 103/53 L 03/18/24 04:15 103/53 L 03/18/24 04:04 86/48 L 03/18/24 04:00 96 Nasal Cannula 03/18/24 04:00 37.3 C 97 H 18 95 03/18/24 04:00 86/41 L 03/18/24 04:00 86/41 L 03/18/24 03:56 88/45 L 03/18/24 03:54 37.3 C 97 H 22 03/18/24 03:51 37.3 C 99 H 21 03/18/24 03:30 110/57 L 03/18/24 03:30 37.3 C 102 H 21 03/18/24 03:27 37.3 C 102 H 20 96 03/18/24 03:15 88/51 L 03/18/24 03:15 88/51 L 03/18/24 03:15 88/51 L 03/18/24 03:06 37.4 C 96 H 23 93 03/18/24 03:03 37.4 C 94 H 22 95 03/18/24 03:00 85/41 L 03/18/24 03:00 85/41 L 03/18/24 02:48 37.4 C 87 22 91 03/18/24 02:45 112/47 L 03/18/24 02:45 112/47 L 03/18/24 02:45 112/47 L 03/18/24 02:45 112/47 L 03/18/24 02:45 112/47 L 03/18/24 02:30 37.4 C 92 H 24 95 03/18/24 02:30 115/44 L 03/18/24 02:21 37.4 C 96 H 22 94 03/18/24 02:15 96/50 L 03/18/24 02:15 96/50 L 03/18/24 02:15 96/50 L 03/18/24 02:09 37.4 C 95 H 21 93 03/18/24 02:00 108/53 L 03/18/24 02:00 108/53 L 03/18/24 01:48 37.4 C 97 H 22 93 03/18/24 01:45 96/59 L 03/18/24 01:45 96/59 L 03/18/24 01:45 96/59 L 03/18/24 01:45 96/59 L 03/18/24 01:42 37.4 C 93 H 22 94 03/18/24 01:30 119/71 03/18/24 01:30 37.4 C 98 H 22 94 03/18/24 01:18 37.5 C 96 H 18 95 03/18/24 01:15 112/63 03/18/24 01:15 112/63 03/18/24 01:12 37.5 C 95 H 22 93 03/18/24 01:03 37.5 C 92 H 20 95 03/18/24 01:00 112/49 L 03/18/24 01:00 112/49 L 03/18/24 01:00 112/49 L 03/18/24 00:57 37.6 C H 91 H 23 93 03/18/24 00:48 37.6 C H 89 23 91 03/18/24 00:45 130/60 03/18/24 00:45 130/60 03/18/24 00:36 37.6 C H 96 H 24 94 03/18/24 00:30 128/58 L 03/18/24 00:30 128/58 L 03/18/24 00:12 37.7 C H 94 H 21 91 03/18/24 00:00 124/59 L 03/18/24 00:00 124/59 L 03/18/24 00:00 124/59 L 03/18/24 00:00 37.7 C H 93 H 23 93 03/18/24 00:00 99 H 03/18/24 00:00 92 Nasal Cannula 03/17/24 23:57 37.7 C H 92 H 24 96 03/17/24 23:45 120/56 L 03/17/24 23:45 120/56 L 03/17/24 23:30 96/58 L 03/17/24 23:15 37.9 C H 96 H 18 95 03/17/24 23:07 98/48 L 03/17/24 23:00 38.0 C H 94 H 24 95 03/17/24 22:48 38.2 C H 100 H 22 95 03/17/24 22:45 99/44 L 03/17/24 22:45 99/44 L 03/17/24 22:36 38.2 C H 100 H 23 88/42 L 94 03/17/24 22:15 38.3 C H 105 H 21 94 03/17/24 22:15 124/58 L 03/17/24 22:03 38.4 C H 103 H 25 H 94 03/17/24 22:00 100/51 L 03/17/24 22:00 100/51 L 03/17/24 22:00 100/51 L 03/17/24 21:38 91/44 L 03/17/24 21:36 38.5 C H 110 H 25 H 93 03/17/24 21:30 77/48 L 03/17/24 21:30 38.5 C H 110 H 23 91 03/17/24 21:15 78/49 L 03/17/24 21:15 78/49 L 03/17/24 21:15 38.5 C H 108 H 25 H 94 03/17/24 21:03 38.5 C H 107 H 26 H 91 03/17/24 21:00 90/51 L 03/17/24 21:00 90/51 L 03/17/24 20:48 38.4 C H 101 H 25 H 94 03/17/24 20:45 82/48 L 03/17/24 20:45 82/48 L 03/17/24 20:45 82/48 L 03/17/24 20:45 82/48 L 03/17/24 20:30 77/46 L 03/17/24 20:27 38.4 C H 106 H 25 H 93 03/17/24 20:21 38.4 C H 108 H 24 95 03/17/24 20:00 89/51 L 03/17/24 19:47 38.3 C H 107 H 26 H 96 03/17/24 19:32 38.3 C H 108 H 25 H 97 03/17/24 19:30 89/55 L 03/17/24 19:30 89/55 L 03/17/24 19:30 89/55 L 03/17/24 19:30 89/55 L 03/17/24 19:29 38.3 C H 105 H 24 98 03/17/24 19:23 38.2 C H 102 H 25 H 98 O2 Flow Rate 03/18/24 06:48 03/18/24 06:45 03/18/24 06:45 03/18/24 06:45 03/18/24 06:42 03/18/24 06:39 03/18/24 06:30 03/18/24 06:21 03/18/24 06:18 03/18/24 06:15 03/18/24 06:15 03/18/24 06:09 03/18/24 06:03 03/18/24 06:00 03/18/24 06:00 03/18/24 05:54 03/18/24 05:45 03/18/24 05:45 03/18/24 05:45 03/18/24 05:27 03/18/24 05:15 03/18/24 05:15 03/18/24 05:12 03/18/24 05:00 03/18/24 05:00 03/18/24 05:00 03/18/24 04:45 03/18/24 04:45 03/18/24 04:30 03/18/24 04:30 03/18/24 04:30 03/18/24 04:21 03/18/24 04:15 03/18/24 04:15 03/18/24 04:04 03/18/24 04:00 2 03/18/24 04:00 03/18/24 04:00 03/18/24 04:00 03/18/24 03:56 03/18/24 03:54 03/18/24 03:51 03/18/24 03:30 03/18/24 03:30 03/18/24 03:27 03/18/24 03:15 03/18/24 03:15 03/18/24 03:15 03/18/24 03:06 03/18/24 03:03 03/18/24 03:00 03/18/24 03:00 03/18/24 02:48 03/18/24 02:45 03/18/24 02:45 03/18/24 02:45 03/18/24 02:45 03/18/24 02:45 03/18/24 02:30 03/18/24 02:30 03/18/24 02:21 03/18/24 02:15 03/18/24 02:15 03/18/24 02:03/18/24 02:09 03/18/24 02:00 03/18/24 02:00 03/18/24 01:48 03/18/24 01:45 03/18/24 01:45 03/18/24 01:45 03/18/24 01:45 03/18/24 01:42 03/18/24 01:30 03/18/24 01:30 03/18/24 01:18 03/18/24 01:03/18/24 01:03/18/24 01:03/18/24 01:03 03/18/24 01:00 03/18/24 01:00 03/18/24 01:00 03/18/24 00:57 03/18/24 00:48 03/18/24 00:45 03/18/24 00:45 03/18/24 00:36 03/18/24 00:30 03/18/24 00:30 03/18/24 00:12 03/18/24 00:00 03/18/24 00:00 03/18/24 00:00 03/18/24 00:00 03/18/24 00:00 03/18/24 00:00 2 03/17/24 23:57 03/17/24 23:45 03/17/24 23:45 03/17/24 23:03/17/24 23:03/17/24 23:07 03/17/24 23:00 03/17/24 22:48 03/17/24 22:45 03/17/24 22:45 03/17/24 22:36 03/17/24 22:15 03/17/24 22:15 03/17/24 22:03 03/17/24 22:00 03/17/24 22:00 03/17/24 22:00 03/17/24 21:38 03/17/24 21:36 03/17/24 21:30 03/17/24 21:30 03/17/24 21:15 03/17/24 21:15 03/17/24 21:15 03/17/24 21:03 03/17/24 21:00 03/17/24 21:00 03/17/24 20:48 03/17/24 20:45 03/17/24 20:45 03/17/24 20:45 03/17/24 20:45 03/17/24 20:30 03/17/24 20:27 03/17/24 20:21 03/17/24 20:00 03/17/24 19:47 03/17/24 19:32 03/17/24 19:30 03/17/24 19:30 03/17/24 19:30 03/17/24 19:30 03/17/24 19:29 03/17/24 19:23 Lab & Micro Results (Past 24 Hours) RBC 2.26 M/uL (4.70-6.10) L 03/18/24 WBC 14.84 K/ul (4.8-10.8) H 03/18/24 Hgb 6.9 g/dl (14.0-18.0) L* 03/18/24 Hct 21.3 % (42.0-52.0) L 03/18/24 MCV 94.2 fL (80.0-100.0) 03/18/24 MCH 29.6 pg (25.0-34.0) 03/18/24 MCHC 31.5 g/dL (32.0-36.0) L 03/18/24 RDW Standard Deviation 57.1 fL (36.4-46.3) H 03/18/24 RDW Coefficient of Variation 17.2 % (11.5-14.5) H 03/18/24 Plt Count 276 K/uL (130-400) 03/18/24 MPV 9.7 fL (9.4-12.4) 03/18/24 Nucleated Red Blood Cells % (auto) 0.1 % 03/18 Nucleated RBC Absolute Count (auto) 0.02 K/uL (0.00-0.12) 0 03/18/24 Neutrophils (%) (Auto) 84.0 % 03/18/24 Lymphocytes (%) (Auto) 7.8 % 03/18/24 Monocytes # (Auto) 0.81 K/uL (0.11-0.59) H 03/18/24 Eosinophils # (Auto) 0.19 K/uL (0.00-0.50) 03/18/24 Immature Granulocyte % (Auto) 0.9 % 03/18/24 Neutrophils # (Auto) 12.46 K/uL (1.40-6.50) H 03/18/24 Lymphocytes # (Auto) 1.16 K/uL (1.20-3.40) L 03/18/24 Monocytes # (Auto) 0.81 K/uL (0.11-0.59) H 03/18/24 Eosinophils # (Auto) 0.19 K/uL (0.00-0.50) 03/18/24 Basophils # (Auto) 0.08 K/uL (0.00-0.20) 03/18/24 Immature Granulocyte # (Auto) 0.14 K/uL (0.01-0.20) 4 Polychromasia 1+ 03/18/24 Anisocytosis Present 03/18/24 Na 137 mmol/L (136-145) 03/18/24 K 5.7 mmol/L (3.5-5.1) H 03/18/24 Cl 99 mmol/L (98-107) 03/18/24 CO2 19 mmol/L (21-32) L 03/18/24 Anion Gap 19 (3-11) H 03/18/24 BUN 71 mg/dl (6-23) H 03/18/24 Creatinine 11.54 mg/dl (0.6-1.4) H* 03/18/24 Estimated GFR ( Amer) 5.5 ml/min 03/18/24 Estimated GFR (Non-Af Amer) 4.8 ml/min 03/18/24 BUN/Creatinine Ratio 6.2 (10-20) L 03/18/24 Glu 126 mg/dl (70-99(Fasting)) H 03/18/24 Ca 8.9 mg/dl (8.6-10.3) 03/18/24 Phosphorus Level 9.1 mg/dl (2.5-4.9) H 03/18/24 Total Bilirubin 1.2 mg/dl (0.2-1.0) H 03/18/24 AST 26 U/L (13-39) 03/18/24 ALT 26 U/L (7-52) 03/18/24 Alkaline Phosphatase 97 U/L (34-104) 03/18/24 TP 7.5 gm/dl (6.0-8.3) 03/18/24 Albumin 3.7 gm/dl (3.4-5.0) 03/18/24 Globulin 3.8 gm/dl (2.5-4.0) 03/18/24 Albumin/Globulin Ratio 1.0 (0.9-2) 03/18/24 Mg 2.6 mg/dl (1.7-2.4) H 03/18/24 04:01 Calcium Level 8.9 mg/dl (8.6-10.3) 03/18/24 04:01 Javon Test Pass 03/17/24 16:25 Diagnostic Findings (Past 24 Hours) Chest X-Ray 03/17/24 09:26 XR chest 1V portable CLINICAL HISTORY: abd pain TECHNIQUE: Single frontal radiograph of the chest was obtained. Comparison: None available at the time of this dictation. FINDINGS: The catheter is unchanged. The cardiomediastinal silhouette is normal. Lungs are underinflated but clear. No evidence of pleural effusion or pneumothorax. IMPRESSION: No acute chest disease. ACT 112: Negative or not required by law. Electronically signed by: David Torrez M.D. 03/17/2024 10:15 AM Abdomen/Pelvis CT 03/17/24 10:14 CT abd pelvis wo con CLINICAL HISTORY: poss obstruc, dialysis pt TECHNIQUE: Helical axial images of the abdomen and pelvis were obtained. Automated dose lowering techniques and/or adjustment according to patient size were utilized for this exam. This exam was performed without intravenous contrast. CT DOSE: 2201.42 mGy.cm COMPARISON: None available at the time of this dictation. FINDINGS: Lower chest: No acute abnormality. Liver: Unremarkable. No focal lesions are seen. Gallbladder and biliary tree: No calcified gallstones. Normal caliber wall. No intra- or extrahepatic biliary ductal dilation. Pancreas: Unremarkable, no focal lesions. Spleen: Splenule is incidentally noted. Adrenals: Unremarkable. Kidneys and ureters: Atrophic bilateral kidneys noted. An atrophic transplant kidney is noted in the left lower quadrant. Bladder: Limited evaluation due to underdistention. Reproductive organs: Unremarkable. Bowel: Numerous dilated loops of large and small bowel are seen. There is apparent tethering of 2 loops of small bowel in one loop of large bowel in the right lower quadrant although this does not represent a transition point as distal loops of bowel are also dilated. Lymph nodes Retroperitoneal: Unremarkable. Pelvic: Unremarkable. Mesenteric: Unremarkable. Peritoneum: Peritoneal catheter is seen. No significant free fluid. Vessels: Unremarkable. Abdominal wall: Unremarkable. Bones: Degenerative changes in the visualized spine. IMPRESSION: Numerous dilated loops of large and small bowel without a firm transition point. Findings may represent ileus versus partial obstruction. There may be a focus of adhesions in the right lower quadrant. ACT 112: Negative or not required by law. Electronically signed by: David Torrez M.D. 03/17/2024 10:53 AM I & O Totals 24 Hours 03/17/24 03/18/24 03/19/24 06:59 06:59 06:59 Intake Total 2794.540 / 2794.540 0 / 0 Output Total 26 / 26 Balance 2768.540 / 2768.540 0 / 0 Cumulative 03/17/24 09:00 thru 03/18/24 07:06 Intake Total 2794.540 Output Total 26 Balance 2768.540 RT Ventilator Mngmt (Last Documented) Ventilator Ordered Settings Respiratory Rate 21 03/18/24 06:48 Ventilator - PT Measurements Respiratory Rate 21 Coding Level of Care Code 44220 CRITICAL CARE 1ST 30-74M Diagnoses Ileus K56.7 Hypotension due to hypovolemia E86.1 Hypotension type: hypotension due to hypovolemia Anemia in ESRD (end-stage renal disease) N18.6; D63.1 ESRD on peritoneal dialysis N18.6; Z99.2 (2) Hypotension Hypotension type: hypotension due to hypovolemia Qualified Code(s): E86.1 - Hypovolemia
--- NOTE | 2024-03-18 07:26 | Hospitalist Progress Note ---
Date of Service March 18, 2024 Assessment & Plan (1) Ileus: (2) Hypotension: (3) Aphasia, post-stroke: (4) ESRD on peritoneal dialysis: (5) Acute ischemic left MCA stroke: (6) Essential hypertension: Plan Mr. 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 Patient's course since admission complicated by hypotension requiring pressor support, as well as acute on chronic anemia requiring blood product this am. Responsive to transfusion, hgb 8.7 #Sepsis, unclear source #Chronic immunosuppression on cyclosporine potentially 2/2 ongoing ileus, however, pending infectious workup iso recent prolonged hospitalization Febrile 38.5, tachycardia, leukocytosis 1 L in ED + addition 2L s/p admit ICU on consult, appreciate recommendations -Pressors: Phenylephrine, held at 3am - stress dose steriods per ICU -Right IJ for HD in place -03/17 Blood Cultures Pending -Recently completed zosyn course 03/16 for aspiration pna Continue Zosyn Midodrine TID #Ileus #Recent UGIB 2/[address] AP: numerous dilated loops, ileus v partial ?focus of adhesions in RLQ Noted during admission at [facility], thought to be 2/2 suction trauma from NGT Placed on omeprazole BID upon d/c NPO, NGT in place to LIS General Surgery following -pending KUB, following to possibly remove NGT, BM overnight #Acute on chronic anemia Anemia likely multifactorial Received EPO 92234 IU sc once a week previously however held 2/2 recent stroke Transfuse hemoglobin <7 2 U PRBC ordered for this am trend HH #ESRD on PD #History of GPA s/p failed kidney transplant- on low-dose cyclosporin. Recent admission c/b hypotension, required CRRT and IHD PD catheter still in place Hold cinacalcet 60 mg daily via NG. Hold Cyclosporine 50 mg daily. Continue to avoid nephrotoxic drugs Nephrology on consult " on HD and has HD cath. last HD was on Monday. has Possible GI bleed/Ileus and SI symptoms. [place] 84257 units procrit. BP is still low and given NPO and Ileus--will not do any UF for today. however he is anuric and does need UF from next time." #Recent L MCA stroke c/b aphasia, right hemiparesis #Calcified Mitral calcification, suspect cardioembolic #Small PFO ROPE score noted to be 5, planned for OP cards follow up ALICIA completed showing PFO, atrial septal aneurysm, and calcified nodule on P2 of mitral valve Discharged from [facility] on eliquis and ASA On statin #DMTII Hyperglycemia protocol per ICU Holding Apixaban 2/2 acute anemia DVT ppx heparin, CTM for signs of bleeding PPI BID IV Remains ICU Admission and Anticipated Discharge Date Admission Date: March 17, 2024 Subjective Transferred to ICU yesterday shortly after admission Hypotension requiring pressor support overnight, weaned off around 2-3am TMAX 38.5 Evaluated at bedside, nods yes and no appropriately---denies any abdominal pain, denies any chest pain. Discussed blood transfusion and patient nodded in understanding Appeared comfortable Physical Exam Constitutional: WD/WN, vitals as above Respiratory: normal respiratory effort, lungs clear to auscultation Cardiovascular: tachycardic no lower extremity edema noted Gastrointestinal (Abdomen): protuberant/tympanic abdomen, nontender, PD cath with dressing CDI no surrounding erythema or superfical infection noted Neurologic: aphasic, however, meaningful interaction and appropriate answering with yes/no questions, follows simple commands Results & Data Results & Data Vital Signs (Past 12 Hours) Vital Signs Temp Pulse Resp BP Pulse Ox Pulse Ox O2 Del Method 03/18/24 06:48 36.9 C 83 21 100 03/18/24 06:45 122/65 03/18/24 06:45 122/65 03/18/24 06:45 122/65 03/18/24 06:42 36.9 C 79 18 86 L 03/18/24 06:39 36.9 C 79 18 100 03/18/24 06:30 116/68 03/18/24 06:21 36.9 C 81 19 100 03/18/24 06:18 36.8 C 83 18 100 03/18/24 06:15 116/55 L 03/18/24 06:15 116/55 L 03/18/24 06:09 36.8 C 86 17 100 03/18/24 06:03 36.8 C 81 18 100 03/18/24 06:00 110/59 L 03/18/24 06:00 110/59 L 03/18/24 05:54 36.8 C 85 18 99 03/18/24 05:45 100/60 03/18/24 05:45 100/60 03/18/24 05:45 100/60 03/18/24 05:27 36.8 C 86 18 99 03/18/24 05:15 102/49 L 03/18/24 05:15 102/49 L 03/18/24 05:12 36.8 C 88 18 98 03/18/24 05:00 94/43 L 03/18/24 05:00 94/43 L 03/18/24 05:00 36.8 C 89 18 98 03/18/24 04:45 88/51 L 03/18/24 04:45 36.9 C 88 19 100 03/18/24 04:30 37.0 C 90 19 96 03/18/24 04:30 93/52 L 03/18/24 04:30 93/52 L 03/18/24 04:21 37.1 C 91 H 17 97 03/18/24 04:15 103/53 L 03/18/24 04:15 103/53 L 03/18/24 04:04 86/48 L 03/18/24 04:00 96 Nasal Cannula 03/18/24 04:00 37.3 C 97 H 18 95 03/18/24 04:00 86/41 L 03/18/24 04:00 86/41 L 03/18/24 03:56 88/45 L 03/18/24 03:54 37.3 C 97 H 22 03/18/24 03:51 37.3 C 99 H 21 03/18/24 03:30 110/57 L 03/18/24 03:30 37.3 C 102 H 21 03/18/24 03:27 37.3 C 102 H 20 96 03/18/24 03:15 88/51 L 03/18/24 03:15 88/51 L 03/18/24 03:15 88/51 L 03/18/24 03:06 37.4 C 96 H 23 93 03/18/24 03:03 37.4 C 94 H 22 95 03/18/24 03:00 85/41 L 03/18/24 03:00 85/41 L 03/18/24 02:48 37.4 C 87 22 91 03/18/24 02:45 112/47 L 03/18/24 02:45 112/47 L 03/18/24 02:45 112/47 L 03/18/24 02:45 112/47 L 03/18/24 02:45 112/47 L 03/18/24 02:30 37.4 C 92 H 24 95 03/18/24 02:30 115/44 L 03/18/24 02:21 37.4 C 96 H 22 94 03/18/24 02:15 96/50 L 03/18/24 02:15 96/50 L 03/18/24 02:15 96/50 L 03/18/24 02:09 37.4 C 95 H 21 93 03/18/24 02:00 108/53 L 03/18/24 02:00 108/53 L 03/18/24 01:48 37.4 C 97 H 22 93 03/18/24 01:45 96/59 L 03/18/24 01:45 96/59 L 03/18/24 01:45 96/59 L 03/18/24 01:45 96/59 L 03/18/24 01:42 37.4 C 93 H 22 94 03/18/24 01:30 119/71 03/18/24 01:30 37.4 C 98 H 22 94 03/18/24 01:18 37.5 C 96 H 18 95 03/18/24 01:15 112/63 03/18/24 01:15 112/63 03/18/24 01:12 37.5 C 95 H 22 93 03/18/24 01:03 37.5 C 92 H 20 95 03/18/24 01:00 112/49 L 03/18/24 01:00 112/49 L 03/18/24 01:00 112/49 L 03/18/24 00:57 37.6 C H 91 H 23 93 03/18/24 00:48 37.6 C H 89 23 91 03/18/24 00:45 130/60 03/18/24 00:45 130/60 03/18/24 00:36 37.6 C H 96 H 24 94 03/18/24 00:30 128/58 L 03/18/24 00:30 128/58 L 03/18/24 00:12 37.7 C H 94 H 21 91 03/18/24 00:00 124/59 L 03/18/24 00:00 124/59 L 03/18/24 00:00 124/59 L 03/18/24 00:00 37.7 C H 93 H 23 93 03/18/24 00:00 99 H 03/18/24 00:00 92 Nasal Cannula 03/17/24 23:57 37.7 C H 92 H 24 96 03/17/24 23:45 120/56 L 03/17/24 23:45 120/56 L 03/17/24 23:30 96/58 L 03/17/24 23:15 37.9 C H 96 H 18 95 03/17/24 23:07 98/48 L 03/17/24 23:00 38.0 C H 94 H 24 95 03/17/24 22:48 38.2 C H 100 H 22 95 03/17/24 22:45 99/44 L 03/17/24 22:45 99/44 L 03/17/24 22:36 38.2 C H 100 H 23 88/42 L 94 03/17/24 22:15 38.3 C H 105 H 21 94 03/17/24 22:15 124/58 L 03/17/24 22:03 38.4 C H 103 H 25 H 94 03/17/24 22:00 100/51 L 03/17/24 22:00 100/51 L 03/17/24 22:00 100/51 L 03/17/24 21:38 91/44 L 03/17/24 21:36 38.5 C H 110 H 25 H 93 03/17/24 21:30 77/48 L 03/17/24 21:30 38.5 C H 110 H 23 91 03/17/24 21:15 78/49 L 03/17/24 21:15 78/49 L 03/17/24 21:15 38.5 C H 108 H 25 H 94 03/17/24 21:03 38.5 C H 107 H 26 H 91 03/17/24 21:00 90/51 L 03/17/24 21:00 90/51 L 03/17/24 20:48 38.4 C H 101 H 25 H 94 03/17/24 20:45 82/48 L 03/17/24 20:45 82/48 L 03/17/24 20:45 82/48 L 03/17/24 20:45 82/48 L 03/17/24 20:30 77/46 L 03/17/24 20:27 38.4 C H 106 H 25 H 93 03/17/24 20:21 38.4 C H 108 H 24 95 03/17/24 20:00 89/51 L 03/17/24 19:47 38.3 C H 107 H 26 H 96 03/17/24 19:32 38.3 C H 108 H 25 H 97 03/17/24 19:30 89/55 L 03/17/24 19:30 89/55 L 03/17/24 19:30 89/55 L 03/17/24 19:30 89/55 L 03/17/24 19:29 38.3 C H 105 H 24 98 03/17/24 19:23 38.2 C H 102 H 25 H 98 O2 Flow Rate 03/18/24 06:48 03/18/24 06:45 03/18/24 06:45 03/18/24 06:45 03/18/24 06:42 03/18/24 06:39 03/18/24 06:30 03/18/24 06:21 03/18/24 06:18 03/18/24 06:15 03/18/24 06:15 03/18/24 06:09 03/18/24 06:03 03/18/24 06:00 03/18/24 06:00 03/18/24 05:54 03/18/24 05:45 03/18/24 05:45 03/18/24 05:45 03/18/24 05:27 03/18/24 05:15 03/18/24 05:15 03/18/24 05:12 03/18/24 05:00 03/18/24 05:00 03/18/24 05:00 03/18/24 04:45 03/18/24 04:45 03/18/24 04:30 03/18/24 04:03/18/24 04:30 03/18/24 04:21 03/18/24 04:15 03/18/24 04:15 03/18/24 04:04 03/18/24 04:00 2 03/18/24 04:00 03/18/24 04:00 03/18/24 04:00 03/18/24 03:56 03/18/24 03:54 03/18/24 03:51 03/18/24 03:30 03/18/24 03:30 03/18/24 03:27 03/18/24 03:15 03/18/24 03:15 03/18/24 03:15 03/18/24 03:06 03/18/24 03:03 03/18/24 03:00 03/18/24 03:00 03/18/24 02:48 03/18/24 02:45 03/18/24 02:45 03/18/24 02:45 03/18/24 02:45 03/18/24 02:45 03/18/24 02:30 03/18/24 02:30 03/18/24 02:21 03/18/24 02:15 03/18/24 02:15 03/18/24 02:15 03/18/24 02:09 03/18/24 02:00 03/18/24 02:00 03/18/24 01:48 03/18/24 01:45 03/18/24 01:45 03/18/24 01:45 03/18/24 01:45 03/18/24 01:42 03/18/24 01:03/18/24 01:03/18/24 01:18 03/18/24 01:03/18/24 01:15 03/18/24 01:12 03/18/24 01:03 03/18/24 01:00 03/18/24 01:00 03/18/24 01:00 03/18/24 00:57 03/18/24 00:48 03/18/24 00:45 03/18/24 00:45 03/18/24 00:36 03/18/24 00:30 03/18/24 00:30 03/18/24 00:12 03/18/24 00:00 03/18/24 00:00 03/18/24 00:00 03/18/24 00:00 03/18/24 00:00 03/18/24 00:00 2 03/17/24 23:57 03/17/24 23:45 03/17/24 23:45 03/17/24 23:30 03/17/24 23:15 03/17/24 23:07 03/17/24 23:00 03/17/24 22:48 03/17/24 22:45 03/17/24 22:45 03/17/24 22:36 03/17/24 22:15 03/17/24 22:15 03/17/24 22:03 03/17/24 22:00 03/17/24 22:00 03/17/24 22:00 03/17/24 21:38 03/17/24 21:36 03/17/24 21:30 03/17/24 21:30 03/17/24 21:15 03/17/24 21:15 03/17/24 21:15 03/17/24 21:03 03/17/24 21:00 03/17/24 21:00 03/17/24 20:48 03/17/24 20:45 03/17/24 20:45 03/17/24 20:45 03/17/24 20:45 03/17/24 20:30 03/17/24 20:27 03/17/24 20:21 03/17/24 20:00 03/17/24 19:47 03/17/24 19:32 03/17/24 19:30 03/17/24 19:30 03/17/24 19:30 03/17/24 19:30 03/17/24 19:29 03/17/24 19:23 Laboratory Results Short CBC 03/17/24 03/18/24 03/18/24 Range/Units 09:55 04:01 06:08 WBC 18.75 H 14.84 H (4.8-10.8) K/ul Hgb 9.1 L 6.7 L* 6.9 L* (14.0-18.0) g/dl Hct 28.5 L 21.3 L (42.0-52.0) % Plt Count 338 276 (130-400) K/uL BMP 03/17/24 03/18/24 09:55 04:01 Sodium 136 137 Potassium 5.2 H 5.7 H Chloride 93 L 99 Carbon Dioxide 23 19 L BUN 58 H 71 H Creatinine 10.36 H* 11.54 H* D Glucose 113 H 126 H Calcium 9.9 8.9 Liver Function 03/17/24 03/18/24 Range/Units 09:55 04:01 Total Bilirubin 0.9 1.2 H (0.2-1.0) mg/dl AST 37 26 (13-39) U/L ALT 34 26 (7-52) U/L Alkaline Phosphatase 115 H 97 (34-104) U/L Albumin 4.5 3.7 (3.4-5.0) gm/dl Medications Administered Home Medications Medication Instructions Recorded Confirmed Last Taken apixaban 5 mg tablet (Eliquis) 5 mg PO BID 03/17/24 03/17/24 03/16/24 atorvastatin 40 mg tablet 40 mg PO HS 03/17/24 03/17/24 03/16/24 calcium acetate(phosphat bind) 667 2,001 mg PO UD 03/17/24 03/17/24 03/16/24 mg capsule cinacalcet 30 mg tablet 60 mg PO QPM 03/17/24 03/17/24 03/16/24 cyclosporine modified 25 mg capsule 50 mg PO BID 03/17/24 03/17/24 03/16/24 febuxostat 80 mg tablet 80 mg PO QAM 03/17/24 03/17/24 03/16/24 ferric citrate 210 mg iron tablet 210 mg PO AC 03/17/24 03/17/24 03/16/24 (Auryxia) metoprolol succinate 100 mg 100 mg PO QAM 03/17/24 03/17/24 03/16/24 tablet,extended release 24 hr omeprazole 20 mg capsule,delayed 20 mg PO BID 03/17/24 03/17/24 03/16/24 release vitamin B complex and vitamin C 1 cap PO DAILY 03/17/24 03/17/24 03/16/24 no.20-folic acid 1 mg capsule Active Medications Generic Name Dose Route Start Last Admin Trade Name Freq PRN Reason Stop Dose Admin Piperacillin Sod/Tazobactam 100 mls @ 25 mls/hr 03/18/24 01:00 03/18/24 04:48 Sod 4.5 gm/ Dextrose IV 03/20/24 00:59 Infused Q12H HANSA Infusion Protocol Pantoprazole Sodium 40 mg/ 10 mls @ 5 mls/min 03/17/24 21:00 03/17/24 20:53 Syringe IV 04/16/24 20:59 5 mls/min BID HANSA Administration Phenylephrine HCl 25 mg in 250 mls @ 29.748 mls/hr 03/17/24 16:30 03/18/24 07:06 Phenylephrine/Nss IV 04/16/24 16:29 0 mcg/kg/min .Q8H25M HANSA 0 mls/hr Titration Protocol 0.5 MCG/KG/MIN Acetaminophen 1,000 mg in 100 mls @ 400 mls/hr 03/17/24 20:32 03/17/24 21:10 Ofirmev IV 03/20/24 20:31 Infused Q8H PRN Infusion pain/fever while NPO Hydrocortisone Sodium 1 mls @ 4 mls/min 03/18/24 04:00 03/18/24 04:09 Succinate 50 mg/ Syringe IV 04/17/24 03:59 4 mls/min Q6H HANSA Administration Miscellaneous 1 each 03/18/24 00:00 03/18/24 05:55 Icu Protocol For Hyperglycemia N/A 03/20/24 00:00 1 each Q6 HANSA Administration (2) Hypotension Hypotension type: hypotension due to hypovolemia Qualified Code(s): E86.1 - Hypovolemia
[2024-03-18] MEDS ORDERED: SODIUM CHLORIDE 0.9% 250 ML IV PRN (07:29)
--- NOTE | 2024-03-18 09:55 | Nephrology Consultation ---
Date of Consultation March 18, 2024 Assessment & Plan (1) ESRD on hemodialysis: Currently on HD and has HD cath. last HD was on Monday. has Possible GI bleed/Ileus and SI symptoms. [place] 15586 units procrit. BP is still low and given NPO and Ileus--will not do any UF for today. however he is anuric and does need UF from next time. reviewed cbc--low hgb and getting PRBC. PLT fine. renal panel--high K of 5.7 so will do 2k bath for 4 hrs. Biarb 35 and Qb of 300 and Qd of 600. (2) ESRD on peritoneal dialysis: Eventual plan but currently not possible with Ongoing issues of GI bleed and Ileus. Also not sure how much he is able to do at home now with his new disabilities after severe stroke. he may never be able to do it. this decision will be done later. (3) Aphasia, post-stroke: Still severe deficit. (4) Ileus: very complicated patient with extensive recent issue. Hospital notes from [facility] [place], Consult notes from ICU, Cardiology and hematology note reviewed. Time spent 56 mins (5) Hypotension: History of Present Illness Reason for Consultation: ESRD . sepsis Attending Physician: Sumi Patel MD History of Present Illness 44/M with with ESRD on PD, recent Left MCA stroke s/p unsuccessful thrombectomy with residual right hemiparesis and expressive aphasia, mitral leaflet non-mobile calcified mass, PFO, granulomatosis w/ polyangiitis, h/o failed renal transplant, and other complicated medical history as outlined below. He presented to the ED yesterday from [facility] after he developed vomiting and progressive abdominal distention. Pt was admitted to [facility] from 02/24/24-03/16/24 after he presented with new onset expressive aphasia related with Acute stroke. Work-up showed an acute left MCA infarct with calcific thrombus at the left MCA distal M1 segment. He was not a candidate for tPA. Revascularization was attempted unsuccessfully. ALICIA on 03/08/24 confirmed the presence of a mitral leaflet non-mobile calcified mass that was potentially thrombogenic. He was also noted to have a small PFO with an atrial septal aneury sm. Antithrombotic regimen was initially implemented with aspirin and Plavix, then aspirin and Brilinta. Subsequently, he was changed to aspirin monotherapy, then aspirin and Eliquis, and was ultimately discharged on Eliquis alone. Hospital course was also complicated by UGIB with EGD showing gastritis. Transitioned back to PD on 03/04 but then back to CRRT due to poor ultrafiltration. At time of discharge, he was on HD on // with a plan to resume PD when pt returned home from rehab. At time of discharge, he was still noted to have severe expressive aphasia and persistent right sided hemiparesis. he was in rehab only for about 12 hrs. Sent to [facility] because of possible Upper GI bleed Again. hgb now low and getting PRBC. Unable to get history from patient due to the expressive aphasia and poor mental status. He has had some relief of discomfort with the NGT placement. Records including pt's discharge summary from [facility] from 03/16/24 as well as H and P were reviewed. Last HD note reviewed with last HD on 03/15/24. has HD catheter and also the PD catheter. Bp is somewhat low but no pressors. ROS--unable to obtain sec to MS changes and Aphasia Physical Exam Constitutional: Non verbal.Sleeping vs obtunded ?? Neck: Supple. No JVD Respiratory: normal respiratory effort, lungs clear to auscultation Cardiovascular: RRR, no murmur, no edema Gastrointestinal (Abdomen): + abdomen distended PD cath in place and NGT in place Musculoskeletal: Extremities: extremities normal to inspection Skin: no rashes, warm and dry Neurologic: Unable to exam. Allergies Allergy/AdvReac Type Severity Reaction Status Date / Time No Known Allergies Allergy Verified 03/17/24 11:47 Home Medications Medication Instructions Recorded Confirmed Type apixaban 5 mg tablet (Eliquis) 5 mg PO BID 03/17/24 03/17/24 History atorvastatin 40 mg tablet 40 mg PO HS 03/17/24 03/17/24 History calcium acetate(phosphat bind) 667 2,001 mg PO UD 03/17/24 03/17/24 History mg capsule cinacalcet 30 mg tablet 60 mg PO QPM 03/17/24 03/17/24 History cyclosporine modified 25 mg capsule 50 mg PO BID 03/17/24 03/17/24 History febuxostat 80 mg tablet 80 mg PO QAM 03/17/24 03/17/24 History ferric citrate 210 mg iron tablet 210 mg PO AC 03/17/24 03/17/24 History (Auryxia) metoprolol succinate 100 mg 100 mg PO QAM 03/17/24 03/17/24 History tablet,extended release 24 hr omeprazole 20 mg capsule,delayed 20 mg PO BID 03/17/24 03/17/24 History release vitamin B complex and vitamin C 1 cap PO DAILY 03/17/24 03/17/24 History no.20-folic acid 1 mg capsule Patient History Medical History Legionnaires' disease Diastolic congestive heart failure Failed kidney transplant Gouty arthropathy Granulomatosis with polyangiitis with renal involvement Surgical History History of kidney transplant Family History Other Cancer Diabetes Hypertension Social History Smoking Status: Never smoker Hx Alcohol Use: No Hx Substance Use: No Preferred Language: Thai Communication Ability: Effective Seismic Plotter Required: No Beliefs That Will Affect Care: None Feels Safe at Home: Yes Results & Data Vital Signs (Past 12 Hours) Vital Signs Temp Pulse Resp BP Pulse Ox Pulse Ox O2 Del Method 03/18/24 09:10 37.0 C 85 18 103/63 97 03/18/24 08:40 37.0 C 86 19 113/66 96 03/18/24 08:25 37.0 C 91 H 17 117/63 96 03/18/24 08:07 37.0 C 90 19 114/63 95 03/18/24 08:00 Nasal Cannula 03/18/24 08:00 87 03/18/24 07:49 96 03/18/24 07:21 37.0 C 90 17 108/71 96 Nasal Cannula 03/18/24 07:00 111/57 L 03/18/24 06:48 36.9 C 83 21 100 03/18/24 06:45 122/65 03/18/24 06:45 122/65 03/18/24 06:45 122/65 03/18/24 06:42 36.9 C 79 18 86 L 03/18/24 06:39 36.9 C 79 18 100 03/18/24 06:30 116/68 03/18/24 06:21 36.9 C 81 19 100 03/18/24 06:18 36.8 C 83 18 100 03/18/24 06:15 116/55 L 03/18/24 06:15 116/55 L 03/18/24 06:09 36.8 C 86 17 100 03/18/24 06:03 36.8 C 81 18 100 03/18/24 06:00 110/59 L 03/18/24 06:00 110/59 L 03/18/24 05:54 36.8 C 85 18 99 03/18/24 05:45 100/60 03/18/24 05:45 100/60 03/18/24 05:45 100/60 03/18/24 05:27 36.8 C 86 18 99 03/18/24 05:15 102/49 L 03/18/24 05:15 102/49 L 03/18/24 05:12 36.8 C 88 18 98 03/18/24 05:00 94/43 L 03/18/24 05:00 94/43 L 03/18/24 05:00 36.8 C 89 18 98 03/18/24 04:45 88/51 L 03/18/24 04:45 36.9 C 88 19 100 03/18/24 04:30 37.0 C 90 19 96 03/18/24 04:30 93/52 L 03/18/24 04:30 93/52 L 03/18/24 04:21 37.1 C 91 H 17 97 03/18/24 04:15 103/53 L 03/18/24 04:15 103/53 L 03/18/24 04:04 86/48 L 03/18/24 04:00 96 03/18/24 04:00 37.3 C 97 H 18 95 03/18/24 04:00 86/41 L 03/18/24 04:00 86/41 L 03/18/24 03:56 88/45 L 03/18/24 03:54 37.3 C 97 H 22 03/18/24 03:51 37.3 C 99 H 21 03/18/24 03:30 110/57 L 03/18/24 03:30 37.3 C 102 H 21 03/18/24 03:27 37.3 C 102 H 20 96 03/18/24 03:15 88/51 L 03/18/24 03:15 88/51 L 03/18/24 03:15 88/51 L 03/18/24 03:06 37.4 C 96 H 23 93 03/18/24 03:03 37.4 C 94 H 22 95 03/18/24 03:00 85/41 L 03/18/24 03:00 85/41 L 03/18/24 02:48 37.4 C 87 22 91 03/18/24 02:45 112/47 L 03/18/24 02:45 112/47 L 03/18/24 02:45 112/47 L 03/18/24 02:45 112/47 L 03/18/24 02:45 112/47 L 03/18/24 02:30 37.4 C 92 H 24 95 03/18/24 02:30 115/44 L 03/18/24 02:21 37.4 C 96 H 22 94 03/18/24 02:15 96/50 L 03/18/24 02:15 96/50 L 03/18/24 02:15 96/50 L 03/18/24 02:09 37.4 C 95 H 21 93 03/18/24 02:00 108/53 L 03/18/24 02:00 108/53 L 03/18/24 01:48 37.4 C 97 H 22 93 03/18/24 01:45 96/59 L 03/18/24 01:45 96/59 L 03/18/24 01:45 96/59 L 03/18/24 01:45 96/59 L 03/18/24 01:42 37.4 C 93 H 22 94 03/18/24 01:30 119/71 03/18/24 01:30 37.4 C 98 H 22 94 03/18/24 01:18 37.5 C 96 H 18 95 03/18/24 01:15 112/63 03/18/24 01:15 112/63 03/18/24 01:12 37.5 C 95 H 22 93 03/18/24 01:03 37.5 C 92 H 20 95 03/18/24 01:00 112/49 L 03/18/24 01:00 112/49 L 03/18/24 01:00 112/49 L 03/18/24 00:57 37.6 C H 91 H 23 93 03/18/24 00:48 37.6 C H 89 23 91 03/18/24 00:45 130/60 03/18/24 00:45 130/60 03/18/24 00:36 37.6 C H 96 H 24 94 03/18/24 00:30 128/58 L 03/18/24 00:30 128/58 L 03/18/24 00:12 37.7 C H 94 H 21 91 03/18/24 00:00 124/59 L 03/18/24 00:00 124/59 L 03/18/24 00:00 124/59 L 03/18/24 00:00 37.7 C H 93 H 23 93 03/18/24 00:00 99 H 03/18/24 00:00 92 03/17/24 23:57 37.7 C H 92 H 24 96 03/17/24 23:45 120/56 L 03/17/24 23:45 120/56 L 03/17/24 23:30 96/58 L 03/17/24 23:15 37.9 C H 96 H 18 95 03/17/24 23:07 98/48 L 03/17/24 23:00 38.0 C H 94 H 24 95 03/17/24 22:48 38.2 C H 100 H 22 95 03/17/24 22:45 99/44 L 03/17/24 22:45 99/44 L 03/17/24 22:36 38.2 C H 100 H 23 88/42 L 94 03/17/24 22:15 38.3 C H 105 H 21 94 03/17/24 22:15 124/58 L 03/17/24 22:03 38.4 C H 103 H 25 H 94 03/17/24 22:00 100/51 L 03/17/24 22:00 100/51 L 03/17/24 22:00 100/51 L O2 Del Method O2 Flow Rate O2 Flow Rate 03/18/24 09:10 2 03/18/24 08:40 2 03/18/24 08:25 2 03/18/24 08:07 2 03/18/24 08:00 2 03/18/24 08:00 03/18/24 07:49 Nasal Cannula 2 03/18/24 07:21 2 03/18/24 07:00 03/18/24 06:48 03/18/24 06:45 03/18/24 06:45 03/18/24 06:45 03/18/24 06:42 03/18/24 06:39 03/18/24 06:30 03/18/24 06:21 03/18/24 06:18 03/18/24 06:15 03/18/24 06:15 03/18/24 06:09 03/18/24 06:03 03/18/24 06:00 03/18/24 06:00 03/18/24 05:54 03/18/24 05:45 03/18/24 05:45 03/18/24 05:45 03/18/24 05:27 03/18/24 05:15 03/18/24 05:15 03/18/24 05:12 03/18/24 05:00 03/18/24 05:00 03/18/24 05:00 03/18/24 04:45 03/18/24 04:45 03/18/24 04:30 03/18/24 04:30 03/18/24 04:30 03/18/24 04:21 03/18/24 04:15 03/18/24 04:15 03/18/24 04:04 03/18/24 04:00 Nasal Cannula 2 03/18/24 04:00 03/18/24 04:00 03/18/24 04:00 03/18/24 03:56 03/18/24 03:54 03/18/24 03:51 03/18/24 03:30 03/18/24 03:30 03/18/24 03:27 03/18/24 03:15 03/18/24 03:15 03/18/24 03:15 03/18/24 03:06 03/18/24 03:03 03/18/24 03:00 03/18/24 03:00 03/18/24 02:48 03/18/24 02:45 03/18/24 02:45 03/18/24 02:45 03/18/24 02:45 03/18/24 02:45 03/18/24 02:30 03/18/24 02:30 03/18/24 02:21 03/18/24 02:15 03/18/24 02:03/18/24 02:03/18/24 02:03/18/24 02:00 03/18/24 02:00 03/18/24 01:48 03/18/24 01:45 03/18/24 01:45 03/18/24 01:45 03/18/24 01:45 03/18/24 01:42 03/18/24 01:30 03/18/24 01:30 03/18/24 01:18 03/18/24 01:03/18/24 01:03/18/24 01:03/18/24 01:03 03/18/24 01:00 03/18/24 01:00 03/18/24 01:00 03/18/24 00:57 03/18/24 00:48 03/18/24 00:45 03/18/24 00:45 03/18/24 00:36 03/18/24 00:30 03/18/24 00:30 03/18/24 00:12 03/18/24 00:00 03/18/24 00:00 03/18/24 00:00 03/18/24 00:00 03/18/24 00:00 03/18/24 00:00 Nasal Cannula 2 03/17/24 23:57 03/17/24 23:45 03/17/24 23:45 03/17/24 23:30 03/17/24 23:15 03/17/24 23:07 03/17/24 23:00 03/17/24 22:48 03/17/24 22:45 03/17/24 22:45 03/17/24 22:36 03/17/24 22:15 03/17/24 22:15 03/17/24 22:03 03/17/24 22:00 03/17/24 22:00 03/17/24 22:00 (5) Hypotension Hypotension type: hypotension due to hypovolemia Qualified Code(s): E86.1 - Hypovolemia
[2024-03-18] MEDS ORDERED: SODIUM CHLORIDE 0.9% 1,000 ML IV PRN (10:04)
[2024-03-18 10:53] LABS: HepB Surface Ag with confirm Negative (Negative)
[2024-03-18 11:02] LABS: Hepatitis B Surface Antibody Non-Immune
[2024-03-18] MEDS: EPOETIN ALFA 20,000 UNITS/ML VIAL IV SCH (12:52)
--- NOTE | 2024-03-18 14:22 | Surgery Progress Note ---
Date of Service March 18, 2024 Assessment & Plan (1) Ileus: Plan: we are consulted for potential ileus NGT in place, currently ordered to be clamped by the ICU. has been clamped since about 8am. pt denies any abdominal pain/n/v + BM documented overnight Will order a KUB to eval bowel/gas picture If KUB read as okay and if RN can check residuals and it is low <150cc we can consider removing ngt and starting sips as above. feeling better. likely ileus. no urgent indication for surgical intervention. will follow along. Admission and Anticipated Discharge Date Admission Date: March 17, 2024 Subjective Patient reports feeling better. denies abdominal pain/n/v. + BM overnight. Physical Exam Physical Exam: awake, shakes/nods heads yes and no to questions Respiratory: normal respiratory effort on 2 L nasal cannula Gastrointestinal (Abdomen): Inspection/Auscultation: + abdomen distended Pe rcussion/Palpation: abdomen soft NGT clamped Results & Data Vital Signs (Past 12 Hours) Vital Signs Temp Pulse Pulse Resp BP Pulse Ox Pulse Ox 03/18/24 14:06 98.4 F 97 H 19 103/59 L 99 03/18/24 13:00 97 H 18 104/72 100 03/18/24 13:00 96 H 104/72 03/18/24 12:45 93 H 17 104/70 100 03/18/24 12:30 98.4 F 91 H 17 111/71 03/18/24 12:30 92 H 111/71 03/18/24 12:15 115/73 03/18/24 12:00 98.4 F 89 18 119/79 100 03/18/24 12:00 99 03/18/24 12:00 90 119/79 03/18/24 11:30 98.4 F 86 15 114/75 100 03/18/24 11:30 98.4 F 85 20 100 03/18/24 11:30 83 114/75 03/18/24 11:15 110/73 03/18/24 11:08 98.6 F 82 17 129/71 93 03/18/24 11:03 98.6 F 85 17 100 03/18/24 11:00 98.6 F 85 17 121/69 100 03/18/24 11:00 83 121/69 03/18/24 10:58 98.6 F 82 18 115/69 100 03/18/24 10:58 98.6 F 82 18 115/69 100 03/18/24 10:49 98.6 F 86 18 108/69 100 03/18/24 10:42 98.6 F 87 17 116/65 97 03/18/24 10:30 87 106/65 03/18/24 10:30 98.8 F 85 17 113/65 97 03/18/24 10:10 98.8 F 86 18 107/57 L 97 03/18/24 10:00 85 107/57 L 03/18/24 09:45 98.8 F 86 03/18/24 09:10 98.6 F 85 18 103/63 97 03/18/24 08:40 98.6 F 86 19 113/66 96 03/18/24 08:25 98.6 F 91 H 17 117/63 96 03/18/24 08:07 98.6 F 90 19 114/63 95 03/18/24 08:00 03/18/24 08:00 87 03/18/24 07:49 96 03/18/24 07:21 98.6 F 90 17 108/71 96 03/18/24 07:00 111/57 L 03/18/24 06:48 98.4 F 83 21 100 03/18/24 06:45 122/65 03/18/24 06:45 122/65 03/18/24 06:45 122/65 03/18/24 06:42 98.4 F 79 18 86 L 03/18/24 06:39 98.4 F 79 18 100 03/18/24 06:30 116/68 03/18/24 06:21 98.4 F 81 19 100 03/18/24 06:18 98.2 F 83 18 100 03/18/24 06:15 116/55 L 03/18/24 06:15 116/55 L 03/18/24 06:09 98.2 F 86 17 100 03/18/24 06:03 98.2 F 81 18 100 03/18/24 06:00 110/59 L 03/18/24 06:00 110/59 L 03/18/24 05:54 98.2 F 85 18 99 03/18/24 05:45 100/60 03/18/24 05:45 100/60 07/08/24 05:45 100/60 03/18/24 05:27 98.2 F 86 18 99 03/18/24 05:15 102/49 L 03/18/24 05:15 102/49 L 03/18/24 05:12 98.2 F 88 18 98 03/18/24 05:00 94/43 L 03/18/24 05:00 94/43 L 03/18/24 05:00 98.2 F 89 18 98 03/18/24 04:45 88/51 L 03/18/24 04:45 98.4 F 88 19 100 03/18/24 04:30 98.6 F 90 19 96 03/18/24 04:30 93/52 L 03/18/24 04:30 93/52 L 03/18/24 04:21 98.8 F 91 H 17 97 03/18/24 04:15 103/53 L 03/18/24 04:15 103/53 L 03/18/24 04:04 86/48 L 03/18/24 04:00 96 03/18/24 04:00 99.1 F 97 H 18 95 03/18/24 04:00 86/41 L 03/18/24 04:00 86/41 L 03/18/24 03:56 88/45 L 03/18/24 03:54 99.1 F 97 H 22 03/18/24 03:51 99.1 F 99 H 21 03/18/24 03:30 110/57 L 03/18/24 03:30 99.1 F 102 H 21 03/18/24 03:27 99.1 F 102 H 20 96 03/18/24 03:15 88/51 L 03/18/24 03:15 88/51 L 03/18/24 03:15 88/51 L 03/18/24 03:06 99.3 F 96 H 23 93 03/18/24 03:03 99.3 F 94 H 22 95 03/18/24 03:00 85/41 L 03/18/24 03:00 85/41 L 03/18/24 02:48 99.3 F 87 22 91 03/18/24 02:45 112/47 L 03/18/24 02:45 112/47 L 03/18/24 02:45 112/47 L 03/18/24 02:45 112/47 L 03/18/24 02:45 112/47 L 03/18/24 02:30 99.3 F 92 H 24 95 03/18/24 02:30 115/44 L 03/18/24 02:21 99.3 F 96 H 22 94 O2 Del Method O2 Del Method O2 Flow Rate O2 Flow Rate 03/18/24 14:06 Nasal Cannula 2 03/18/24 13:00 Nasal Cannula 2 03/18/24 13:00 03/18/24 12:45 03/18/24 12:30 03/18/24 12:30 03/18/24 12:15 03/18/24 12:00 Nasal Cannula 2 03/18/24 12:00 Nasal Cannula 2 03/18/24 12:00 03/18/24 11:30 03/18/24 11:30 03/18/24 11:30 03/18/24 11:15 03/18/24 11:08 2 03/18/24 11:03 03/18/24 11:00 Nasal Cannula 2 03/18/24 11:00 03/18/24 10:58 2 03/18/24 10:58 2 03/18/24 10:49 2 03/18/24 10:42 2 03/18/24 10:30 03/18/24 10:30 2 03/18/24 10:10 03/18/24 10:00 03/18/24 09:45 03/18/24 09:10 2 03/18/24 08:40 2 03/18/24 08:25 2 03/18/24 08:07 2 03/18/24 08:00 Nasal Cannula 2 03/18/24 08:00 03/18/24 07:49 Nasal Cannula 2 03/18/24 07:21 Nasal Cannula 2 03/18/24 07:00 03/18/24 06:48 03/18/24 06:45 03/18/24 06:45 03/18/24 06:45 03/18/24 06:42 03/18/24 06:39 03/18/24 06:30 03/18/24 06:21 03/18/24 06:18 03/18/24 06:15 03/18/24 06:15 03/18/24 06:09 03/18/24 06:03 03/18/24 06:00 03/18/24 06:00 03/18/24 05:54 03/18/24 05:45 03/18/24 05:45 03/18/24 05:45 03/18/24 05:27 03/18/24 05:15 03/18/24 05:15 03/18/24 05:12 03/18/24 05:00 03/18/24 05:00 03/18/24 05:00 03/18/24 04:45 03/18/24 04:45 03/18/24 04:30 03/18/24 04:30 03/18/24 04:30 03/18/24 04:21 03/18/24 04:15 03/18/24 04:15 03/18/24 04:04 03/18/24 04:00 Nasal Cannula 2 03/18/24 04:00 03/18/24 04:00 03/18/24 04:00 03/18/24 03:56 03/18/24 03:54 03/18/24 03:51 03/18/24 03:30 03/18/24 03:30 03/18/24 03:27 03/18/24 03:15 03/18/24 03:15 03/18/24 03:15 03/18/24 03:06 03/18/24 03:03 03/18/24 03:00 03/18/24 03:00 03/18/24 02:48 03/18/24 02:45 03/18/24 02:45 03/18/24 02:45 03/18/24 02:45 03/18/24 02:45 03/18/24 02:30 03/18/24 02:30 03/18/24 02:21 PG Care Time/CCT Total # of Minutes Spent Total Time Spent with Patient: Total time spent is greater than 50% in coordination of care (as documented) at patient's floor/unit and/or counseling patient: Coding Level of Care Code 24988 SUB INP/OBS CARE 1/25MIN Diagnoses Ileus K56.7
[2024-03-18] MEDS: HEPARIN SOD 5,000 UNIT/0.5 ML VIAL SQ SCH (14:23)
[2024-03-18 14:52] LABS: Hematocrit (blood only) 26.8 % (42.0-52.0); Hemoglobin 8.7 g/dl (14.0-18.0)
--- NOTE | 2024-03-18 15:34 | XRay Report ---
KUB HISTORY: Acute generalized abdominal pain eval bowel/gas pattern COMPARISON: CT 03/17/2024 FINDINGS: Persistent gas-filled loops of large and small bowel with air-filled distended stomach. Sma ll bowel loops measure up to approximately 5.3 cm. Findings appear stable to slightly improved from p rior. A rectal catheter is noted. No renal calculi. No ureteral calculi. No pneumoperitoneum or pneu matosis. No fracture. IMPRESSION: Persistent gaseous distention of the stomach, large and small bowel which appears similar to slightly improved. Continued follow-up is needed. ACT 112: Negative or not required by law. The above report was generated using voice recognition software. It may contain grammatical, syntax o r spelling errors. Electronically signed by: Jairo Wright M.D. 03/18/2024 3:32 PM
--- NOTE | 2024-03-18 16:02 | Electrocardiogram Report ---
Test Reason : Blood Pressure : / mmHG Vent. Rate : 088 BPM Atrial Rate : 088 BPM P-R Int : 162 ms QRS Dur : 088 ms QT Int : 382 ms P-R-T Axes : 027 024 055 degrees QTc Int : 462 ms Normal sinus rhythm Normal ECG When compared with ECG of 17-MAR-2024 09:43, T wave inversion no longer evident in Inferior leads Confirmed by Arnold Nicholson ([id number]) on 03/18/2024 4:02:20 PM Referred By: NICOLE THORNE Confirmed By:Tani Nicholson
[2024-03-19 04:44] LABS: Basophils # (auto) 0.06 K/uL (0.00-0.20); Basophils % (auto) 0.6 %; Eosinophils # (auto) 0.12 K/uL (0.00-0.50); Eosinophils % (auto) 1.2 %; Hematocrit (blood only) 25.3 % (42.0-52.0); Immature Granulocytes # (auto) 0.32 K/uL (0.01-0.20); Immature Granulocytes % (auto) 3.1 %; Lymphocytes # (auto) 1.14 K/uL (1.20-3.40); Mean Corpuscular Hemoglobin 28.8 pg (25.0-34.0); Mean Corpuscular Hgb Conc 31.6 g/dL (32.0-36.0); Monocytes # (auto) 0.81 K/uL (0.11-0.59); Monocytes % (auto) 7.8 %; Neutrophils # (auto) 7.96 K/uL (1.40-6.50); Neutrophils % (auto) 76.3 %; Platelet Count 228 K/uL (130-400); RDW Coefficient of Variation 17.8 % (11.5-14.5); RDW Standard Deviation 57.9 fL (36.4-46.3); Red Blood Count 2.78 M/uL (4.70-6.10); White Blood Count 10.41 K/ul (4.8-10.8)
[2024-03-19 05:13] LABS: Albumin Globulin Ratio 0.9 (0.9-2); Albumin Level 3.6 gm/dl (3.4-5.0); BUN Creatinine Ratio 5.6 (10-20); Bilirubin,Total 0.9 mg/dl (0.2-1.0); Calcium 8.8 mg/dl (8.6-10.3); Creatinine Clr Calc Pharmacy 13.8 ml/min; Est GFR (African American) 7.7 ml/min; Est GFR (Non-African American) 6.7 ml/min; Globulin 3.8 gm/dl (2.5-4.0); Magnesium 2.4 mg/dl (1.7-2.4); Phosphorus 7.7 mg/dl (2.5-4.9); Potassium 4.5 mmol/L (3.5-5.1); Total Protein 7.4 gm/dl (6.0-8.3)
--- NOTE | 2024-03-19 08:57 | XRay Report ---
KUB HISTORY: eval bowel/gas pattern COMPARISON: KUB 03/18/2024. FINDINGS: Persistent gaseous distention of the bowel which is similar to the prior study. Nasogastric tube terminates in the stomach. A rectal catheter is looped within the rectum with the tip terminati ng near the anus. No renal calculi. No ureteral calculi. No pneumoperitoneum or pneumatosis. IMPRESSION: 1. Persistent gaseous distention of the bowel. 2. Nasogastric tube terminates in the stomach. 3. A rectal catheter is looped within the rectum with the tip terminating near the anus. ACT 112: Negative or not required by law. Electronically signed by: Yves Perez M.D. 03/19/2024 8:55 AM
--- NOTE | 2024-03-19 08:57 | Hospitalist Progress Note ---
Date of Service March 19, 2024 Assessment & Plan (1) Ileus: (2) Hypotension: (3) Aphasia, post-stroke: (4) ESRD on peritoneal dialysis: (5) Acute ischemic left MCA stroke: (6) Essential hypertension: Plan Mr. 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 Patient's course since admission complicated by hypotension requiring pressor support, as well as acute on chronic anemia requiring blood product this am. Responsive to transfusion, hgb 8.7 s/p units. Hgb remained stable overnight at 8.0 this am. Nonbloody NGT output. Initially clamped, however, placed back to suction overnight with roughly 700cc output. No IV pressor requirement. No clear infectious source at this time. Plan to downgrade to PCU. Awaiting next steps for NGT removal and further nephrology recommendations. #Possible Sepsis v SIRS, unclear source #Chronic immunosuppression on cyclosporine potentially 2/2 ongoing ileus, however, pending infectious workup iso recent prolonged hospitalization Febrile 38.5, tachycardia, leukocytosis 1 L in ED + addition 2L s/p admit ICU on consult, appreciate recommendations -Pressors: Phenylephrine, held at 3am - stress dose steroids per ICU: discontinued this morning -Right IJ for HD in place -03/17 Blood Cultures Pending -Recently completed zosyn course 03/16 for aspiration pna Continue Zosyn, consider discontinuation in 24 hours given no clear source Midodrine TID #Ileus #Recent UGIB 2/[address] AP: numerous dilated loops, ileus v partial ?focus of adhesions in RLQ Noted during admission at [facility], thought to be 2/2 suction trauma from NGT Placed on omeprazole BID upon d/c NPO, NGT in place to LIS General Surgery following -NGT remains in place, further recommendations per Gen Surgery PPI BID #Acute on chronic anemia Anemia likely multifactorial Received EPO 23452 IU sc once a week previously however held 2/2 recent stroke Transfuse hemoglobin <7 s/p 1 UNIT PRBC 03/18 trend HH continue PPI Will resume systemic anticoagulation upon stabilization of hgb #ESRD on PD #History of GPA s/p failed kidney transplant- on low-dose cyclosporin. Recent admission c/b hypotension, required CRRT and IHD PD catheter still in place Hold cinacalcet 60 mg daily via NG. Hold Cyclosporine 50 mg daily. Continue to avoid nephrotoxic drugs Nephrology on consult " on HD and has HD cath. last HD was on Monday. has Possible GI bleed/Ileus and SI symptoms. [place] [address]2234 units procrit. BP is still low and given NPO and Ileus--will not do any UF for today. h owever he is anuric and does need UF from next time." #Recent L MCA stroke c/b aphasia, right hemiparesis #Calcified Mitral calcification, suspect cardioembolic #Small PFO ROPE score noted to be 5, planned for OP cards follow up ALICIA completed showing PFO, atrial septal aneurysm, and calcified nodule on P2 of mitral valve Discharged from [facility] on eliquis and ASA On statin #DMTII Hyperglycemia protocol per ICU Holding Apixaban 2/2 acute anemia, resume as able (stable hgb >24-48 hours) Will continue Heparin q8 DVT DVT ppx heparin, CTM for signs of bleeding PPI BID Downgrade to PCU, dispo to [facility] contingent on resolution of ileus/final gen surg recommendations Admission and Anticipated Discharge Date Admission Date: March 17, 2024 Subjective More awake and interactive this am NAEO--no pressor requirements > 24 hours; hgb stable NGT output nonbloody, small smear/BM overnight Denies abdominal pain or any discomfort on exam, nods eagerly to possibility of removing NGT Follows commands and with meaningful interaction during examination Physical Exam Constitutional: WD/WN, vitals as above Respiratory: normal respiratory effort, lungs clear to auscultation Cardiovascular: RRR, no murmur, no edema Gastrointestinal (Abdomen): protuberant/disteded however softer than prior exam Neurologic: flaccid RUE, minimal movement in RLE, FROM LUE/LLE , aphasia, however nods yes/no and follows commands appropriately Results & Data Results & Data Vital Signs (Past 12 Hours) Vital Signs Temp Pulse Resp BP Pulse Ox Pulse Ox O2 Del Method 03/19/24 08:00 73 07/09/24 08:00 37.3 C 81 16 129/77 97 03/19/24 08:00 97 03/19/24 07:49 Nasal Cannula 03/19/24 07:00 37.3 C 79 18 131/73 98 Nasal Cannula 03/19/24 06:00 37.3 C 85 18 140/86 95 Nasal Cannula 03/19/24 05:00 37.3 C 81 16 145/77 H 95 Nasal Cannula 03/19/24 04:00 37 C 76 17 136/75 99 Nasal Cannula 03/19/24 04:00 96 03/19/24 03:00 37.1 C 88 15 109/65 95 Nasal Cannula 03/19/24 02:00 37.1 C 82 17 126/72 99 Nasal Cannula 03/19/24 01:00 37.2 C 84 14 125/67 97 Nasal Cannula 03/19/24 00:00 37.3 C 82 17 131/78 97 Nasal Cannula 03/19/24 00:00 95 03/18/24 23:00 37.3 C 86 18 131/79 96 Nasal Cannula 03/18/24 22:09 37.3 C 89 23 124/66 97 Nasal Cannula 03/18/24 21:18 37.6 C H 94 H 20 114/70 97 Nasal Cannula O2 Del Method O2 Flow Rate O2 Flow Rate 03/19/24 08:00 03/19/24 08:00 03/19/24 08:00 Nasal Cannula 2 03/19/24 07:49 2 03/19/24 07:00 2 03/19/24 06:00 2 03/19/24 05:00 2 03/19/24 04:00 2 03/19/24 04:00 Nasal Cannula 2 03/19/24 03:00 2 03/19/24 02:00 2 03/19/24 01:00 2 03/19/24 00:00 2 03/19/24 00:00 Nasal Cannula 2 03/18/24 23:00 2 03/18/24 22:09 2 03/18/24 21:18 2 Laboratory Results Short CBC 03/18/24 03/19/24 Range/Units 14:01 04:23 WBC 10.41 (4.8-10.8) K/ul Hgb 8.7 L 8.0 L (14.0-18.0) g/dl Hct 26.8 L 25.3 L (42.0-52.0) % Plt Count 228 (130-400) K/uL BMP 03/19/24 04:23 Sodium 139 Potassium 4.5 D Chloride 99 Carbon Dioxide 25 BUN 49 H D Creatinine 8.74 H* D Glucose 107 H Calcium 8.8 Liver Function 03/19/24 Range/Units 04:23 Total Bilirubin 0.9 (0.2-1.0) mg/dl AST 22 (13-39) U/L ALT 23 (7-52) U/L Alkaline Phosphatase 100 (34-104) U/L Albumin 3.6 (3.4-5.0) gm/dl Medications Administered Home Medications Medication Instructions Recorded Confirmed Last Taken apixaban 5 mg tablet (Eliquis) 5 mg PO BID 03/17/24 03/17/24 03/16/24 atorvastatin 40 mg tablet 40 mg PO HS 03/17/24 03/17/24 03/16/24 calcium acetate(phosphat bind) 667 2,001 mg PO UD 03/17/24 03/17/24 03/16/24 mg capsule cinacalcet 30 mg tablet 60 mg PO QPM 03/17/24 03/17/24 03/16/24 cyclosporine modified 25 mg capsule 50 mg PO BID 03/17/24 03/17/24 03/16/24 febuxostat 80 mg tablet 80 mg PO QAM 03/17/24 03/17/24 03/16/24 ferric citrate 210 mg iron tablet 210 mg PO AC 03/17/24 03/17/24 03/16/24 (Auryxia) metoprolol succinate 100 mg 100 mg PO QAM 03/17/24 03/17/24 03/16/24 tablet,extended release 24 hr omeprazole 20 mg capsule,delayed 20 mg PO BID 03/17/24 03/17/24 03/16/24 release vitamin B complex and vitamin C 1 cap PO DAILY 03/17/24 03/17/24 03/16/24 no.20-folic acid 1 mg capsule Active Medications Generic Name Dose Route Start Last Admin Trade Name Freq PRN Reason Stop Dose Admin Heparin Sodium (Porcine) 7,500 units 03/18/24 14:00 03/19/24 05:44 Heparin Sod 5,000 Unit/0.5 Ml Vial SQ 04/17/24 13:59 7,500 units Q8 HANSA Administration Piperacillin Sod/Tazobactam 100 mls @ 25 mls/hr 03/18/24 01:00 03/19/24 04:05 Sod 4.5 gm/ Dextrose IV 03/20/24 00:59 Infused Q12H HANSA Infusion Protocol Pantoprazole Sodium 40 mg/ 10 mls @ 5 mls/min 03/17/24 21:00 03/19/24 08:24 Syringe IV 04/16/24 20:59 5 mls/min BID HANSA Administration Phenylephrine HCl 25 mg in 250 mls @ 29.748 mls/hr 03/17/24 16:30 03/19/24 02:43 Phenylephrine/Nss IV 04/16/24 16:29 Not Given .[id number] HANSA Protocol 0.5 MCG/KG/MIN Acetaminophen 1,000 mg in 100 mls @ 400 mls/hr 03/17/24 20:32 03/17/24 21:10 Ofirmev IV 03/20/24 20:31 Infused Q8H PRN Infusion pain/fever while NPO Hydrocortisone Sodium 1 mls @ 4 mls/min 03/18/24 04:00 03/19/24 03:12 Succinate 50 mg/ Syringe IV 03/19/24 08:59 4 mls/min Q6H HANSA Administration Midodrine 5 mg 03/17/24 17:00 03/19/24 08:23 Midodrine Hcl 2.5 Mg Tab PO 04/16/24 16:59 5 mg TID@0800,1200,1700 HANSA Administration Miscellaneous 1 each 03/18/24 00:00 03/19/24 05:15 Icu Protocol For Hyperglycemia N/A 03/20/24 00:00 1 each Q6 HANSA Administration (2) Hypotension Hypotension type: hypotension due to hypovolemia Qualified Code(s): E86.1 - Hypovolemia
--- NOTE | 2024-03-19 09:03 | Critical Care Progress Note ---
Date of Service March 19, 2024 Assessment & Plan (1) Ileus: (2) Hypotension: (3) Anemia in ESRD (end-stage renal disease): (4) ESRD on peritoneal dialysis: Plan Impression: 44-year-old male with end-stage renal disease and prior stroke on dialysis admitted with low blood pressure and potential ileus versus bowel obstruction. PLAN: Neuro: Prior CVA -Communication via shaking head yes and no Resp: 2 L nasal cannula wean as tolerated CV: Hypotension: Resolved -Discontinuing stress dose steroids Fluids/Renal: End-stage renal disease on dialysis -Tolerated dialysis yesterday ID: Discontinue anti-infectives today GI/Nutrition: Ileus versus SBO -N.p.o. with NG drainage -General surgery following -NG remains clamped, minimal Output -Consider NG to remain given persistent ileus bowel gas pattern Heme: Anemia: Confirmed baseline on admission was less than 7, repeat after 2 units 8.7 now decreased to 8 -Daily H&H -No overt signs of bleeding, on Epogen by nephrology Systemic anticoagulation - Patient requires systemic anticoagulation for stroke prevention: Holding systemic anticoagulation until off n.p.o., Lovenox contraindicated, heparin not indicated given end-stage renal disease on dialysis, I feel bleeding risks with systemic anticoagulation outweigh benefits of DVT prophylaxis and monitoring of possible blood loss DVT prophylaxis: Heparin 7500 3 times daily Endocrine: ICU hyperglycemia protocol -Discontinuing stress dose steroids today Vascular access: PIV Code Status: Full code Disposition: Stable for downgrade out of ICU Admission and Anticipated Discharge Date Admission Date: March 17, 2024 Subjective Denies abdominal pain. Has not moved his bowels. NG tube is clamped. Patient tolerated dialysis yesterday with no need for vasoactive medication administration. Physical Exam Physical Exam: General: Alert. nontoxic. Obvious expressive aphasia Skin: Warm, dry, Head: Atraumatic Ears, nose, mouth and throat: airway patent Cardiovascular: Normal peripheral perfusion Respiratory: no respiratory distress Gastrointestinal: Soft, mildly tympanic, minimal distention, no tenderness to deep palpation, hypoactive bowel sounds Musculoskeletal: No deformity Results & Data Results & Data Vital Signs (Past 12 Hours) Vital Signs Temp Pulse Resp BP Pulse Ox Pulse Ox O2 Del Method 03/19/24 08:00 73 03/19/24 08:00 37.3 C 81 16 129/77 97 03/19/24 08:00 97 03/19/24 07:49 Nasal Cannula 07/09/24 07:00 37.3 C 79 18 131/73 98 Nasal Cannula 03/19/24 06:00 37.3 C 85 18 140/86 95 Nasal Cannula 03/19/24 05:00 37.3 C 81 16 145/77 H 95 Nasal Cannula 03/19/24 04:00 37 C 76 17 136/75 99 Nasal Cannula 03/19/24 04:00 96 03/19/24 03:00 37.1 C 88 15 109/65 95 Nasal Cannula 03/19/24 02:00 37.1 C 82 17 126/72 99 Nasal Cannula 03/19/24 01:00 37.2 C 84 14 125/67 97 Nasal Cannula 03/19/24 00:00 37.3 C 82 17 131/78 97 Nasal Cannula 03/19/24 00:00 95 03/18/24 23:00 37.3 C 86 18 131/79 96 Nasal Cannula 03/18/24 22:09 37.3 C 89 23 124/66 97 Nasal Cannula 03/18/24 21:18 37.6 C H 94 H 20 114/70 97 Nasal Cannula O2 Del Method O2 Flow Rate O2 Flow Rate 03/19/24 08:00 03/19/24 08:00 03/19/24 08:00 Nasal Cannula 2 03/19/24 07:49 2 03/19/24 07:00 2 03/19/24 06:00 2 03/19/24 05:00 2 03/19/24 04:00 2 03/19/24 04:00 Nasal Cannula 2 03/19/24 03:00 2 03/19/24 02:00 2 03/19/24 01:00 2 03/19/24 00:00 2 03/19/24 00:00 Nasal Cannula 2 03/18/24 23:00 2 03/18/24 22:09 2 03/18/24 21:18 2 Critical Care Results & Data Vital Signs (Past 12 Hours) Vital Signs Temp Pulse Resp BP Pulse Ox Pulse Ox O2 Del Method 03/19/24 08:00 73 03/19/24 08:00 37.3 C 81 16 129/77 97 03/19/24 08:00 97 03/19/24 07:49 Nasal Cannula 03/19/24 07:00 37.3 C 79 18 131/73 98 Nasal Cannula 03/19/24 06:00 37.3 C 85 18 140/86 95 Nasal Cannula 03/19/24 05:00 37.3 C 81 16 145/77 H 95 Nasal Cannula 03/19/24 04:00 37 C 76 17 136/75 99 Nasal Cannula 03/19/24 04:00 96 03/19/24 03:00 37.1 C 88 15 109/65 95 Nasal Cannula 03/19/24 02:00 37.1 C 82 17 126/72 99 Nasal Cannula 03/19/24 01:00 37.2 C 84 14 125/67 97 Nasal Cannula 03/19/24 00:00 37.3 C 82 17 131/78 97 Nasal Cannula 03/19/24 00:00 95 03/18/24 23:00 37.3 C 86 18 131/79 96 Nasal Cannula 03/18/24 22:09 37.3 C 89 23 124/66 97 Nasal Cannula 03/18/24 21:18 37.6 C H 94 H 20 114/70 97 Nasal Cannula O2 Del Method O2 Flow Rate O2 Flow Rate 03/19/24 08:00 03/19/24 08:00 03/19/24 08:00 Nasal Cannula 2 03/19/24 07:49 2 03/19/24 07:00 2 03/19/24 06:00 2 03/19/24 05:00 2 03/19/24 04:00 2 03/19/24 04:00 Nasal Cannula 2 03/19/24 03:00 2 03/19/24 02:00 2 03/19/24 01:00 2 03/19/24 00:00 2 03/19/24 00:00 Nasal Cannula 2 03/18/24 23:00 2 03/18/24 22:09 2 03/18/24 21:18 2 Lab & Micro Results (Past 24 Hours) RBC 2.78 M/uL (4.70-6.10) L 03/19/24 WBC 10.41 K/ul (4.8-10.8) 03/19/24 Hgb 8.0 g/dl (14.0-18.0) L 03/19/24 Hct 25.3 % (42.0-52.0) L 03/19/24 MCV 91.0 fL (80.0-100.0) 03/19/24 MCH 28.8 pg (25.0-34.0) 03/19/24 MCHC 31.6 g/dL (32.0-36.0) L 03/19/24 RDW Standard Deviation 57.9 fL (36.4-46.3) H 03/19/24 RDW Coefficient of Variation 17.8 % (11.5-14.5) H 03/19/24 Plt Count 228 K/uL (130-400) 03/19/24 MPV 9.0 fL (9.4-12.4) L 03/19/24 Neutrophils (%) (Auto) 76.3 % 03/19/24 Lymphocytes (%) (Auto) 11.0 % 03/19/24 Monocytes # (Auto) 0.81 K/uL (0.11-0.59) H 03/19/24 Eosinophils # (Auto) 0.12 K/uL (0.00-0.50) 03/19/24 Immature Granulocyte % (Auto) 3.1 % 03/19/24 Neutrophils # (Auto) 7.96 K/uL (1.40-6.50) H 03/19/24 Lymphocytes # (Auto) 1.14 K/uL (1.20-3.40) L 03/19/24 Monocytes # (Auto) 0.81 K/uL (0.11-0.59) H 03/19/24 Eosinophils # (Auto) 0.12 K/uL (0.00-0.50) 03/19/24 Basophils # (Auto) 0.06 K/uL (0.00-0.20) 03/19/24 Immature Granulocyte # (Auto) 0.32 K/uL (0.01-0.20) H 03/19 Na 139 mmol/L (136-145) 03/19/24 K 4.5 mmol/L (3.5-5.1) 03/19/24 Cl 99 mmol/L (98-107) 03/19/24 CO2 25 mmol/L (21-32) 03/19/24 Anion Gap 15 (3-11) H 03/19/24 BUN 49 mg/dl (6-23) H 03/19/24 Creatinine 8.74 mg/dl (0.6-1.4) H* 03/19/24 Estimated GFR ( Amer) 7.7 ml/min 03/19/24 Estimated GFR (Non-Af Amer) 6.7 ml/min 03/19/24 BUN/Creatinine Ratio 5.6 (10-20) L 03/19/24 Glu 107 mg/dl (70-99(Fasting)) H 03/19/24 Ca 8.8 mg/dl (8.6-10.3) 03/19/24 Phosphorus Level 7.7 mg/dl (2.5-4.9) H 03/19/24 Total Bilirubin 0.9 mg/dl (0.2-1.0) 03/19/24 AST 22 U/L (13-39) 03/19/24 ALT 23 U/L (7-52) 03/19/24 Alkaline Phosphatase 100 U/L (34-104) 03/19/24 TP 7.4 gm/dl (6.0-8.3) 03/19/24 Albumin 3.6 gm/dl (3.4-5.0) 03/19/24 Globulin 3.8 gm/dl (2.5-4.0) 03/19/24 Albumin/Globulin Ratio 0.9 (0.9-2) 03/19/24 Mg 2.4 mg/dl (1.7-2.4) 03/19/24 04:23 Calcium Level 8.8 mg/dl (8.6-10.3) 03/19/24 04:23 Microbiology 03/17/24 21:29 Aerobic Blood Culture - Preliminary Blood No growth in Aerobic bottle after 24 hours. Anaerobic Blood Culture - Preliminary No growth in Anaerobic bottle after 24 hours. 03/17/24 16:40 Aerobic Blood Culture - Preliminary Blood No growth in Aerobic bottle after 24 hours. Anaerobic Blood Culture - Preliminary No growth in Anaerobic bottle after 24 hours. Diagnostic Findings (Past 24 Hours) KUB X-Ray 03/18/24 14:18 KUB HISTORY: Acute generalized abdominal pain eval bowel/gas pattern COMPARISON: CT 03/17/2024 FINDINGS: Persistent gas-filled loops of large and small bowel with air-filled distended stomach. Small bowel loops measure up to approximately 5.3 cm. Findings appear stable to slightly improved from prior. A rectal catheter is noted. No renal calculi. No ureteral calculi. No pneumoperitoneum or pneumatosis. No fracture. IMPRESSION: Persistent gaseous distention of the stomach, large and small bowel which appears similar to slightly improved. Continued follow-up is needed. ACT 112: Negative or not required by law. The above report was generated using voice recognition software. It may contain grammatical, syntax or spelling errors. Electronically signed by: Jairo Wright M.D. 03/18/2024 3:32 PM I & O Totals 24 Hours 03/18/24 03/19/24 03/20/24 06:59 06:59 06:59 Intake Total 2794.540 / 2794.540 1160 / 1160 Output Total 701 / 701 Balance 2768.540 / 2768.540 459 / 459 Cumulative 03/17/24 09:00 thru 03/19/24 05:41 Intake Total 3954.540 Output Total 727 Balance 3227.540 RT Ventilator Mngmt (Last Documented) Ventilator Ordered Settings Respiratory Rate 16 03/19/24 08:00 Ventilator - PT Measurements Respiratory Rate 16 Coding Level of Care Code 22207 SUB INP/OBS CARE 3/50MIN Diagnoses Ileus K56.7 Hypotension due to hypovolemia E86.1 Hypotension type: hypotension due to hypovolemia Anemia in ESRD (end-stage renal disease) N18.6; D63.1 ESRD on peritoneal dialysis N18.6; Z99.2 (2) Hypotension Hypotension type: hypotension due to hypovolemia Qualified Code(s): E86.1 - Hypovolemia
--- NOTE | 2024-03-19 12:04 | Surgery Progress Note ---
Date of Service March 19, 2024 Assessment & Plan (1) Ileus: Plan: Pt here w/ concern for ileus KUB this AM shows persistent gaseous distention of the bowel similar to yesterday NGT to LIWS yesterday evening through today with 700cc documented Pt denies pain/n/v. He had a small smear this AM he wants tube out. will trial removing ng tube and start clears as above. feeling well. has been clamped since 8 this AM. no pain or nausea. will d/c ngt/try clears Admission and Anticipated Discharge Date Admission Date: March 17, 2024 Subjective Patient shakes/nods head to answer questions. Denies abdominal pain/n/v. Denies any recent flatus or BM. Says yes when asked if NGT uncomfortable. He indicates he does not feel bloated. Physical Exam Physical Exam: awake, no distress Gastrointestinal (Abdomen): Inspection/Auscultation: + abdomen distended Percussion/Palpation: abdomen soft; abdomen nontender ngt 700cc documented last 12 hr Results & Data Vital Signs (Past 12 Hours) Vital Signs Temp Pulse Pulse Resp BP BP Pulse Ox 03/19/24 10:26 97.9 F 85 18 119/76 97 03/19/24 10:15 03/19/24 10:15 95 03/19/24 09:09 99.1 F 80 17 97 03/19/24 09:00 128/83 03/19/24 08:00 73 03/19/24 08:00 99.1 F 81 16 129/77 97 03/19/24 08:00 03/19/24 07:49 03/19/24 07:00 99.1 F 79 18 131/73 98 03/19/24 06:00 99.1 F 85 18 140/86 95 03/19/24 05:00 99.1 F 81 16 145/77 H 95 03/19/24 04:00 98.6 F 76 17 136/75 99 03/19/24 04:00 03/19/24 03:00 98.8 F 88 15 109/65 95 03/19/24 02:00 98.8 F 82 17 126/72 99 03/19/24 01:00 99.0 F 84 14 125/67 97 Pulse Ox O2 Del Method O2 Del Method O2 Flow Rate O2 Flow Rate 03/19/24 10:26 Room Air 03/19/24 10:15 Room Air 03/19/24 10:15 Room Air 03/19/24 09:09 03/19/24 09:00 03/19/24 08:00 03/19/24 08:00 03/19/24 08:00 97 Nasal Cannula 2 03/19/24 07:49 Nasal Cannula 2 03/19/24 07:00 Nasal Cannula 2 03/19/24 06:00 Nasal Cannula 2 03/19/24 05:00 Nasal Cannula 2 03/19/24 04:00 Nasal Cannula 2 03/19/24 04:00 96 Nasal Cannula 2 03/19/24 03:00 Nasal Cannula 2 03/19/24 02:00 Nasal Cannula 2 03/19/24 01:00 Nasal Cannula 2 PG Care Time/CCT Total # of Minutes Spent Total Time Spent with Patient: Total time spent is greater than 50% in coordination of care (as documented) at patient's floor/unit and/or counseling patient: Coding Level of Care Code 93838 SUB INP/OBS CARE 10/05MIN Diagnoses Ileus K56.7
[2024-03-20 06:26] LABS: Albumin Level 3.7 gm/dl (3.4-5.0); BUN Creatinine Ratio 6.2 (10-20); Creatinine Clr Calc Pharmacy 10.6 ml/min; Est GFR (African American) 5.6 ml/min; Est GFR (Non-African American) 4.9 ml/min; Globulin 3.6 gm/dl (2.5-4.0); Magnesium 2.5 mg/dl (1.7-2.4); Phosphorus 6.8 mg/dl (2.5-4.9); Potassium 4.5 mmol/L (3.5-5.1); Total Protein 7.3 gm/dl (6.0-8.3)
[2024-03-20] MEDS ORDERED: SODIUM CHLORIDE 0.9% 1,000 ML IV PRN (07:00)
[2024-03-20 07:10] LABS: Basophils # (auto) 0.09 K/uL (0.00-0.20); Basophils % (auto) 0.8 %; Eosinophils # (auto) 0.45 K/uL (0.00-0.50); Eosinophils % (auto) 4.1 %; Hematocrit (blood only) 27.5 % (42.0-52.0); Hemoglobin 8.8 g/dl (14.0-18.0); Immature Granulocytes % (auto) 1.8 %; Lymphocytes % (auto) 18.3 %; Mean Corpuscular Hemoglobin 28.9 pg (25.0-34.0); Mean Corpuscular Volume 90.5 fL (80.0-100.0); Mean Platelet Volume 9.4 fL (9.4-12.4); Monocytes # (auto) 0.99 K/uL (0.11-0.59); Monocytes % (auto) 9.1 %; Neutrophils # (auto) 7.18 K/uL (1.40-6.50); Neutrophils % (auto) 65.9 %; Nucleated RBC # (auto) 0.03 K/uL (0.00-0.12); Nucleated RBC % (auto) 0.3 %; Platelet Count 274 K/uL (130-400); RDW Coefficient of Variation 17.2 % (11.5-14.5); RDW Standard Deviation 55.2 fL (36.4-46.3); Red Blood Count 3.04 M/uL (4.70-6.10); White Blood Count 10.91 K/ul (4.8-10.8)
--- NOTE | 2024-03-20 10:04 | Surgery Progress Note ---
Date of Service March 20, 2024 Assessment & Plan (1) Ileus: Plan: NGT removed yest. has been tolerating clears Will advance to full liquids documented sm this AM Pt seen and examined with Dr. Ceballos as above. pt feeling well. no pain or nausea. steven clears no surgical intervention indicated. will advance to full liquids will sign off. please call if any concerns/questions Admission and Anticipated Discharge Date Admission Date: March 17, 2024 Subjective Patient shakes/nods head to answer questions Denies abd pain/n/v. Review of Systems Gastrointestinal: no abdominal pain, no nausea and no vomiting Physical Exam Constitutional: cooperative and comfortable; no acute distress Respiratory: normal respiratory effort and able to speak in complete sentences; no respiratory distress Gastrointestinal (Abdomen): Percussion/Palpation: abdomen soft; abdomen nontender Results & Data Vital Signs (Past 12 Hours) Vital Signs Temp Pulse Pulse Pulse Resp BP BP 03/20/24 09:30 107 H 116/65 03/20/24 09:03 97 H 122/63 03/20/24 08:59 97.7 F 100 H 03/20/24 07:14 97.9 F 100 H 18 126/85 03/20/24 03:19 97.7 F 97 H 18 116/75 03/20/24 00:00 93 H 03/19/24 22:39 97.5 F L 96 H 19 120/77 Pulse Ox O2 Del Method 03/20/24 09:30 03/20/24 09:03 03/20/24 08:59 03/20/24 07:14 94 Room Air 03/20/24 03:19 92 Room Air 03/20/24 00:00 03/19/24 22:39 92 Room Air PG Care Time/CCT Total # of Minutes Spent Total Time Spent with Patient: Total time spent is greater than 50% in coordination of care (as documented) at patient's floor/unit and/or counseling patient: Coding Level of Care Code 94285 SUB INP/OBS CARE 1/25MIN Diagnoses Ileus K56.7
[2024-03-20] MEDS: ONDANSETRON INJ 2 MG/ML 2 ML VIAL IV PRN (12:13)
[2024-03-20] MEDS: EPOETIN ALFA 20,000 UNITS/ML VIAL IV ONE (12:28)
--- NOTE | 2024-03-20 12:58 | Dialysis Progress Note ---
Date of Service March 20, 2024 Assessment & Plan Admission and Anticipated Discharge Date Admission Date: March 17, 2024 Subjective Assessment & Plan (1) ESRD on hemodialysis: Currently on HD and has HD cath. last HD was on Monday. Has Possible GI bleed/Ileus and SI symptoms. [place] 54525 units procrit. BP is still low but better. aim for 1.5 kilo UF. hgb up to 8.8 now. will do 2k bath for 4 hrs. Biarb 38 and Qb of 300 and Qd of 600 UF 1.5 kilo. (2) ESRD on peritoneal dialysis: Eventual plan but currently not possible with Ongoing issues of GI bleed and Ileus. Also not sure how much he is able to do at home now with his new disabilities after severe stroke. he may never be able to do it. this decision will be done later. also he probably needs intensive physical therapy for stroke and there is no way to do peritoneal dialysis at the rehab hospital (3) Aphasia, post-stroke: Still severe deficit. (4) Ileus: very complicated patient with extensive recent issue. Hospital notes from [facility], Consult notes from ICU, Cardiology and hematology note reviewed. S--Alert and and oriented and following commands, still has massive neurological deficit from stroke. Dialysis is going smoothly catheter is working fine and blood pressure is reasonable Physical Exam Constitutional: awake alert and no distress however unable to speak Neck: Supple. No JVD Respiratory: normal respiratory effort, lungs clear to auscultation Cardiovascular: RRR, no murmur, no edema Gastrointestinal (Abdomen): + abdomen distended PD cath in place and NGT in place Musculoskeletal: Extremities: extremities normal to inspection Skin: no rashes, warm and dry Neurologic: Awake and alert. Results & Data Vital Signs (Past 12 Hours) Vital Signs Temp Pulse Pulse Pulse Resp BP BP 03/20/24 12:30 107 H 97/52 L 03/20/24 12:00 109 H 88/52 L 03/20/24 11:30 110 H 102/57 L 03/20/24 11:00 101 H 107/57 L 03/20/24 10:30 101 H 112/59 L 03/20/24 10:00 101 H 89/56 L 03/20/24 09:30 107 H 116/65 03/20/24 09:03 97 H 122/63 03/20/24 08:59 36.5 C 100 H 03/20/24 08:00 94 H 03/20/24 07:14 36.6 C 100 H 18 126/85 03/20/24 03:19 36.5 C 97 H 18 116/75 Pulse Ox O2 Del Method 03/20/24 12:30 03/20/24 12:00 03/20/24 11:30 03/20/24 11:00 03/20/24 10:30 03/20/24 10:00 03/20/24 09:30 03/20/24 09:03 03/20/24 08:59 03/20/24 08:00 03/20/24 07:14 94 Room Air 03/20/24 03:19 92 Room Air
[2024-03-20] MEDS ORDERED: PROMETHAZINE HCL 6.25 MG in SODIUM CHLORIDE 0.9% 50 ML IV PRN (14:32)
--- NOTE | 2024-03-20 14:45 | XRay Report ---
KUB HISTORY: Acute nausea with vomiting nause, vomiting COMPARISON: 03/19/2024 radiographs, CT 03/17/2024 FINDINGS: Persistent gaseous distention of the stomach and bowel which appears stable to mildly worse karen. Status post removal of the enteric tube. A catheter projects over the midline lower abdomen and pelvis. No renal calculi. No ureteral calculi. No pneumoperitoneum or pneumatosis. No fracture. IMPRESSION: 1. Persistent gaseous distention of the stomach and bowel which appears stable to mildly worsened fro m yesterday's study. 2. Status post removal of the enteric tube. ACT 112: Negative or not required by law. The above report was generated using voice recognition software. It may contain grammatical, syntax o r spelling errors. Electronically signed by: Jairo Wright M.D. 03/20/2024 2:42 PM
--- NOTE | 2024-03-20 16:41 | Hospitalist Progress Note ---
Date of Service March 20, 2024 Assessment & Plan (1) Ileus: (2) Hypotension: (3) Aphasia, post-stroke: (4) ESRD on peritoneal dialysis: (5) Acute ischemic left MCA stroke: (6) Essential hypertension: Plan Mr. 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 As per prior provider Patient's course since admission complicated by hypotension requiring pressor support, as well as acute on chronic anemia requiring blood product this am. Responsive to transfusion, hgb 8.7 s/p units. Possible Sepsis v SIRS Unclear source Chronic immunosuppression on cyclosporine --CXR:No acute chest disease. --CT ABD:Numerous dilated loops of large and small bowel without a firm transition point. Findings may represent ileus versus partial obstruction. There may be a focus of adhesions in the right lower quadrant. --Blood Cx: Negative to date -- Transiently in ICU requiring pressors --Recently completed zosyn course 03/16 for aspiration PNA Zosyn discontinued Monitor off antibiotics Started on midodrine Gentle IV fluids as needed Ileus Vs P.SBO Recent UGIB 2/2 gastritis --CT ABD as above KUB today pending Please NG tube per surgery Appreciate surgery input On PPI for gastritis Bowel rest today Acute on chronic anemia Anemia likely multifactorial Received EPO 16785 IU sc once a week previously however held 2/2 recent stroke Transfuse hemoglobin <7 s/p 1 Unit PRBC 03/18 Monitor CBC continue PPI Will resume systemic anticoagulation upon stabilization of hgb ESRD on PD History of GPA s/p failed kidney transplant- on low-dose cyclosporin. Recent admission c/b hypotension, required CRRT and IHD PD catheter still in place Hold cinacalcet 60 mg daily via NG. Hold Cyclosporine 50 mg daily. Continue to avoid nephrotoxic drugs Appreciate nephrology input Recent L MCA stroke c/b aphasia, right hemiparesis Calcified Mitral calcification, suspect cardioembolic Small PFO ROPE score noted to be 5, planned for OP cards follow up ALICIA completed showing PFO, atrial septal aneurysm, and calcified nodule on P2 of mitral valve Discharged from [facility] [place] on eliquis and ASA On statin Currently Eliquis, Aspirin on hold DM II Update HbA1c Monitor BGs DVT Px: Heparin SQ CODE STATUS Full code Admission and Anticipated Discharge Date Admission Date: March 17, 2024 Subjective Patient is seen and examined at bedside Poor historian secondary to expressive aphasia Had hemodialysis earlier today Had significant nausea associated with vomiting today Also had bowel movement today Patient denied any abdominal pain, chest pain, dyspnea Review of Systems Review of Systems: All systems reviewed & are unremarkable except as noted in Subjective Physical Exam Physical Exam: Physical Exam: Vitals signs as noted above General Appearance:Obese, no apparent distress Head: normocephalic, Atraumatic Eyes: normal inspection, EOMI Neck: supple, Trachea midline Respiratory/Chest: Normal breath sounds, CTA, No accessory muscle use Cardiovascular: S1, S2, No murmur Abdomen/GI:Soft, Non tender, distended, Bowel sounds present Extremities/Musculoskeletal:normal inspection, no edema Neurologic/Psych:AAOX3, + expressive aphasia, Right sided weakness Skin: normal color, warm Results & Data Results & Data Vital Signs (Past 12 Hours) Vital Signs Temp Pulse Pulse Pulse Resp BP BP 03/20/24 14:58 36.8 C 109 H 19 03/20/24 14:47 108 H 03/20/24 13:10 36.5 C 98 H 104/60 03/20/24 12:30 107 H 97/52 L 03/20/24 12:00 109 H 88/52 L 03/20/24 11:30 110 H 102/57 L 03/20/24 11:00 101 H 107/57 L 03/20/24 10:30 101 H 112/59 L 03/20/24 10:00 101 H 89/56 L 03/20/24 09:30 107 H 116/65 03/20/24 09:03 97 H 122/63 03/20/24 08:59 36.5 C 100 H 03/20/24 08:00 94 H 03/20/24 07:14 36.6 C 100 H 18 BP Pulse Ox O2 Del Method 03/20/24 14:58 95/62 L 92 Room Air 03/20/24 14:47 03/20/24 13:10 03/20/24 12:30 03/20/24 12:00 03/20/24 11:30 03/20/24 11:00 03/20/24 10:30 03/20/24 10:00 03/20/24 09:30 03/20/24 09:03 03/20/24 08:59 03/20/24 08:00 03/20/24 07:14 126/85 94 Room Air Laboratory Results Short CBC 03/20/24 03/20/24 Range/Units 05:31 06:36 WBC Cancelled 10.91 H Hgb Cancelled 8.8 L Hct Cancelled 27.5 L Plt Count Cancelled 274 BMP 03/20/24 05:31 Sodium 137 Potassium 4.5 Chloride 97 L Carbon Dioxide 22 BUN 71 H D Creatinine 11.37 H* D Glucose 86 Calcium 9.0 Liver Function 03/20/24 Range/Units 05:31 Total Bilirubin 1.0 (0.2-1.0) mg/dl AST 31 (13-39) U/L ALT 24 (7-52) U/L Alkaline Phosphatase 105 H (34-104) U/L Albumin 3.7 (3.4-5.0) gm/dl (2) Hypotension Hypotension type: hypotension due to hypovolemia Qualified Code(s): E86.1 - Hypovolemia
--- NOTE | 2024-03-20 17:08 | XRay Report ---
KUB CLINICAL HISTORY: Enteric tube placement. FINDINGS: An AP, portable, upright view of the lower chest and upper abdomen is compared to study per formed earlier the same day 03/20/2024 and correlated with abdominal CT dated 03/17/2024. An enteric tub e has been placed. The tip projects below the diaphragm over the gastric fundus. Distended bowel loop s indicate persistent obstruction. No intraperitoneal free air is seen below the diaphragm. The image d bony structures appear intact. IMPRESSION: 1. An enteric tube has been placed as above. 2. Persistent bowel obstruction. Electronically signed by: Ervin Andersen M.D. 03/20/2024 5:06 PM
[2024-03-20] MEDS ORDERED: METOPROLOL TARTRATE 1 MG/ML VIAL IV PRN (17:14)
[2024-03-20] MEDS: SODIUM CHLORIDE 0.9% 1,000 ML IV ONE (17:35)
--- NOTE | 2024-03-20 17:48 | Communication Note ---
Date of Service: March 20, 2024 At around 1600 visited patient at bedside an NGT had been placed, abd distended, soft , pt reports TTP by shaking his head. Keep NPO and NGT to LIWS. Nurse sameera nunez patient did have a bowel movement during emesis earlier in the day. KUB reading persistent SBO. Will follow along.
[2024-03-20] MEDS: SODIUM CHLORIDE 0.9% 500 ML IV ONE ×2 (17:57→20:05)
--- NOTE | 2024-03-20 18:09 | Communication Note ---
Date of Service: March 20, 2024 Patient had significant nausea, vomiting this afternoon. NG tube was placed and made him n.p.o. Blood pressure low again today. Could not get midodrine as NPO. Sinus tachycardia on EKG. Will give IV bolus and maintenance fluids to see if blood pressure would improve. RN also noted patient to be febrile today. Will resume Zosyn. Updated patient's family over the phone. If no improvement, will consider transferring back to ICU.
[2024-03-20] MEDS: SODIUM CHLORIDE 0.9% 1,000 ML IV SCH (18:28)
[2024-03-20] MEDS: PIPER/TAZO 4.5g in D5W MINI-B 100 ML IV ONE (19:12)
[2024-03-20] MEDS: ALBUMIN 25% 25 GM/100 ML VIAL IV ONE (21:21)
[2024-03-21] MEDS: PIPERACILLIN/TAZOBACTAM 4.5 GM in DEXTROSE 5% MINI-B 100 ML IV SCH (03:37)
[2024-03-21 09:03] LABS: Hematocrit (blood only) 25.3 % (42.0-52.0); Hemoglobin 8.1 g/dl (14.0-18.0); Mean Corpuscular Hemoglobin 29.2 pg (25.0-34.0); Mean Corpuscular Volume 91.3 fL (80.0-100.0); Mean Platelet Volume 9.1 fL (9.4-12.4); Nucleated RBC # (auto) 0.04 K/uL (0.00-0.12); Nucleated RBC % (auto) 0.4 %; Platelet Count 225 K/uL (130-400); RDW Coefficient of Variation 17.2 % (11.5-14.5); RDW Standard Deviation 55.4 fL (36.4-46.3); Red Blood Count 2.77 M/uL (4.70-6.10)
[2024-03-21 09:21] LABS: BUN Creatinine Ratio 5.2 (10-20); Calcium 8.7 mg/dl (8.6-10.3); Creatinine Clr Calc Pharmacy 14.8 ml/min; Est GFR (African American) 8.5 ml/min; Est GFR (Non-African American) 7.3 ml/min; Magnesium 2.2 mg/dl (1.7-2.4); Phosphorus 6.3 mg/dl (2.5-4.9); Potassium 4.1 mmol/L (3.5-5.1)
[2024-03-21 09:49] LABS: Estimated Average Glucose 94 mg/dl; Hemoglobin A1C 4.9 % (4.5-5.6)
--- NOTE | 2024-03-21 10:39 | XRay Report ---
XR chest 2V PA/lateral HISTORY: Fever COMPARISON: Chest 03/17/2024. FINDINGS: No pneumothorax. No pleural effusions. There are low lung volumes. The cardiac silhouette r emains mildly enlarged. Nasogastric tube terminates in the distal stomach. A right jugular catheter t erminates in the distal SVC. No evidence for pulmonary edema. Left midlung zone density favors subseg mental atelectasis. Mild gaseous distention of the bowel gas noted. No new focal lung consolidations to suggest a pneumonia. IMPRESSION: 1. Satisfactory support line placement. 2. Stable cardiomegaly. 3. Persisting gaseous distention of the visualized bowel. ACT 112: Negative or not required by law. Electronically signed by: Yves Perez M.D. 03/21/2024 10:37 AM
--- NOTE | 2024-03-21 11:25 | XRay Report ---
KUB HISTORY: Acute abdominal pain with small bowel obstruction SBO COMPARISON: 03/20/2024 FINDINGS: Distal tip of enteric tube is projected superiorly in the region of the proximal stomach. P ersistent small bowel dilation with dilated air-filled loops of small bowel measuring up to 6 cm. Dil ated stomach and large bowel also again seen. A catheter projects over the left lateral abdomen. No renal calculi. No ureteral calculi. No pneumoperitoneum or pneumatosis. No fracture. IMPRESSION: 1. Persistent gaseous distention of the bowel. 2. Distal tip of enteric tube projects over the proximal stomach. ACT 112: Negative or not required by law. The above report was generated using voice recognition software. It may contain grammatical, syntax o r spelling errors. Electronically signed by: Jairo Wright M.D. 03/21/2024 11:24 AM
--- NOTE | 2024-03-21 13:18 | Surgery Progress Note ---
Date of Service March 21, 2024 Assessment & Plan (1) Ileus: Plan: Pt here w/ concern for ileus vs sbo started vomiting yesterday and NGT was replaced KUB today shows persistent small bowel distention abdomen soft and non tender but remains distended. NGT in place with 350cc documented continue npo with ngt while awaiting more meaningful return of bowel fxn wbc 10, having low grade temps, zosyn ordered. was admitted with possible sepsis of unclear source Admission and Anticipated Discharge Date Admission Date: March 17, 2024 Subjective Patient resting in bed. Shakes/nod head to questions asked. Shakes head no to any abdominal pain, n/v. shakes head yes to passing flatus. Says no BM Physical Exam Physical Exam: resting, but easily arousable. non verbal w/ me Respiratory: normal respiratory effort Gastrointestinal (Abdomen): Inspection/Auscultation: + abdomen distended Percussion/Palpation: abdomen soft; abdomen nontender NGT with 350cc documented Results & Data Vital Signs (Past 12 Hours) Vital Signs Temp Pulse Pulse Pulse Resp BP Pulse Ox 03/21/24 11:15 100.0 F H 103 H 20 111/70 93 03/21/24 08:00 03/21/24 08:00 112 H 03/21/24 07:26 100.9 F H 113 H 16 100/64 97 03/21/24 06:30 112/66 03/21/24 05:26 94/61 L 03/21/24 04:30 94/58 L 03/21/24 03:30 98.2 F 106 H 16 95/60 L 92 03/21/24 02:02 111/64 O2 Del Method O2 Flow Rate 03/21/24 11:15 Room Air 03/21/24 08:00 Room Air 03/21/24 08:00 03/21/24 07:26 Nasal Cannula 2.0 03/21/24 06:30 03/21/24 05:26 03/21/24 04:30 03/21/24 03:30 Room Air 03/21/24 02:02 PG Care Time/CCT Total # of Minutes Spent Total Time Spent with Patient: Total time spent is greater than 50% in coordination of care (as documented) at patient's floor/unit and/or counseling patient: Coding Level of Care Code 47776 SUB INP/OBS CARE 10/05MIN Diagnoses Ileus K56.7
--- NOTE | 2024-03-21 13:30 | Electrocardiogram Report ---
Test Reason : Blood Pressure : / mmHG Vent. Rate : 122 BPM Atrial Rate : 122 BPM P-R Int : 140 ms QRS Dur : 084 ms QT Int : 308 ms P-R-T Axes : 038 038 043 degrees QTc Int : 438 ms Sinus tachycardia Possible Left atrial enlargement Borderline ECG When compared with ECG of 18-MAR-2024 05:41, No significant change was found Confirmed by Arnold Nicholson ([id number]) on 03/21/2024 1:30:34 PM Referred By: [facility] Confirmed By:Tani Nicholson
--- NOTE | 2024-03-21 17:44 | Hospitalist Progress Note ---
Date of Service March 21, 2024 Assessment & Plan (1) Ileus: (2) Hypotension: (3) Aphasia, post-stroke: (4) ESRD on peritoneal dialysis: (5) Acute ischemic left MCA stroke: (6) Essential hypertension: Plan Mr. 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 As per prior provider Patient's course since admission complicated by hypotension requiring pressor support, as well as acute on chronic anemia requiring blood product this am. Responsive to transfusion, hgb 8.7 s/p units. Possible Sepsis v SIRS Unclear source Chronic immunosuppression on cyclosporine --CXR:No acute chest disease. --CT ABD:Numerous dilated loops of large and small bowel without a firm transition point. Findings may represent ileus versus partial obstruction. There may be a focus of adhesions in the right lower quadrant. --Blood Cx: Negative to date -- Transiently in ICU requiring pressors --Recently completed zosyn course 03/16 for aspiration PNA Continue IV Zosyn for now Blood cultures pending Elevated procalcitonin Monitor off antibiotics Started on midodrine Gentle IV fluids as needed Ileus Vs P.SBO Recent UGIB 2/ gastritis --CT ABD as above Continue bowel rest, NG tube, gentle IV fluids Appreciate surgery input On PPI for gastritis Repeat KUB showed persistent small bowel distention Acute on chronic anemia Anemia likely multifactorial Received EPO [id number] IU sc once a week previously however held 2/2 recent stroke Transfuse hemoglobin <7 s/p 1 Unit PRBC 03/18 Monitor CBC continue PPI Will resume systemic anticoagulation upon stabilization of hgb ESRD on PD History of GPA s/p failed kidney transplant- on low-dose cyclosporin. Recent admission c/b hypotension, required CRRT and IHD PD catheter still in place Hold cinacalcet 60 mg daily via NG. Hold Cyclosporine 50 mg daily. Continue to avoid nephrotoxic drugs Appreciate nephrology input Monitor volume status while on IV fluids Recent L MCA stroke c/b aphasia, right hemiparesis Calcified Mitral calcification, suspect cardioembolic Small PFO ROPE score noted to be 5, planned for OP cards follow up ALICIA completed showing PFO, atrial septal aneurysm, and calcified nodule on P2 of mitral valve [place] [facility] [place] and ASA On statin Currently Eliquis on hold DM II HbA1c 4.9 Monitor BGs DVT Px: Heparin SQ CODE STATUS Full code Admission and Anticipated Discharge Date Admission Date: March 17, 2024 Subjective Patient is seen and examined at bedside Poor historian secondary to expressive aphasia NG tube in place Had bowel movements overnight per RN Patient denies any abdominal pain, nausea, vomiting today Low-grade fever today Denied any chest pain, dyspnea Review of Systems Review of Systems: Other Physical Exam Physical Exam: Physical Exam: Vitals signs as noted above General Appearance:Obese, no apparent distress Head: normocephalic, Atraumatic Eyes: normal inspection, EOMI Neck: supple, Trachea midline Respiratory/Chest: Normal breath sounds, CTA, No accessory muscle use Cardiovascular: S1, S2, No murmur Abdomen/GI:Soft, Non tender, distended, No audible Bowel sounds Extremities/Musculoskeletal:normal inspection, no edema Neurologic/Psych:AAOX3, + expressive aphasia, Right sided weakness Skin: normal color, warm Results & Data Results & Data Vital Signs (Past 12 Hours) Vital Signs Temp Pulse Pulse Resp BP Pulse Ox O2 Del Method 03/21/24 16:00 Room Air 03/21/24 16:00 101 H 03/21/24 14:49 37.6 C H 94 H 20 115/72 92 Room Air 03/21/24 11:15 37.8 C H 103 H 20 111/70 93 Room Air 03/21/24 08:00 Room Air 03/21/24 08:00 112 H 03/21/24 07:26 38.3 C H 113 H 16 100/64 97 Nasal Cannula 03/21/24 06:30 112/66 O2 Flow Rate 03/21/24 16:00 03/21/24 16:00 03/21/24 14:49 03/21/24 11:15 03/21/24 08:00 03/21/24 08:00 03/21/24 07:26 2.0 03/21/24 06:30 Laboratory Results Short CBC 03/21/24 Range/Units 08:40 WBC 10.60 (4.8-10.8) K/ul Hgb 8.1 L (14.0-18.0) g/dl Hct 25.3 L (42.0-52.0) % Plt Count 225 (130-400) K/uL [facility] 03/21/24 08:40 Sodium 138 Potassium 4.1 Chloride 99 Carbon Dioxide 24 BUN 42 H D Creatinine 8.07 H* D Glucose 92 Calcium 8.7 (2) Hypotension Hypotension type: hypotension due to hypovolemia Qualified Code(s): E86.1 - Hypovolemia
[2024-03-21 23:30] LABS: A calco-baum cmplx NotReported Not Detected (NotDetected); Bact fragilis Not Reported Not Detected (NotDetected); Blood Culture Id Panel See PCR Comment (NotDetected); C auris Not Reported Not Detected (NotDetected); Calbicans Not Reported Not Detected (NotDetected); Candida glabrata Not Reported Not Detected (NotDetected); Candida krusei Not Reported Not Detected (NotDetected); Cneoformans/gatti Not Reported Not Detected (NotDetected); Cparapsilosis Not Reported Not Detected (NotDetected); E cloacae compx Not Reported Not Detected (NotDetected); Efaecalis Not Reported Not Detected (NotDetected); Efaecium Not Reported Not Detected (NotDetected); Enterobacterales Not Reported Not Detected (NotDetected); Escherichia coli Not Reported Not Detected (NotDetected); H influenzae Not Reported Not Detected (NotDetected); K aerogenes Not Reported Not Detected (NotDetected); Koxytoca Not Reported Not Detected (NotDetected); Kpneumoniae grp Not Reported Not Detected (NotDetected); Lmonocyt Not Reported Not Detected (NotDetected); N meningitidis Not Reported Not Detected (NotDetected); P aeruginosa Not Reported Not Detected (NotDetected); Proteus spp Not Reported Not Detected (NotDetected); Salmonella spp Not Reported Not Detected (NotDetected); Staph lugdunensis Not Reported Not Detected (NotDetected); Staph spp. Not Reported DETECTED (NotDetected); Staphaureus Not Reported Not Detected (NotDetected); Staphepi Not Reported DETECTED (NotDetected); Staphylococcus spp. DETECTED (NotDetected); Stenmaltophilia Not Reported Not Detected (NotDetected); Strep agal(GrpB) Not Reported Not Detected (NotDetected); Strep pneum Not Reported Not Detected (NotDetected); Strep pyog (GrpA) Not Reported Not Detected (NotDetected); Strep spp Not Reported Not Detected (NotDetected)
[2024-03-21 23:49] LABS: Staphylococcus epidermidis DETECTED (NotDetected); mecAC Resistant Gene DETECTED (NotDetected)
--- NOTE | 2024-03-22 00:12 | Communication Note ---
Date of Service: March 22, 2024 Made aware of abnormal blood CS result. Gram-positive cocci in clusters from 1 bottle. MRSA gene detected AP MRSA bacteremia Daptomycin for now
[2024-03-22] MEDS: DAPTOmycin 525 MG in SYRINGE 0 ML IV SCH (00:39)
[2024-03-22 06:27] LABS: Mean Corpuscular Hemoglobin 28.5 pg (25.0-34.0); Mean Corpuscular Hgb Conc 30.8 g/dL (32.0-36.0); Mean Corpuscular Volume 92.5 fL (80.0-100.0); Mean Platelet Volume 9.5 fL (9.4-12.4); Nucleated RBC # (auto) 0.03 K/uL (0.00-0.12); Nucleated RBC % (auto) 0.3 %; Platelet Count 228 K/uL (130-400); RDW Coefficient of Variation 17.2 % (11.5-14.5); RDW Standard Deviation 56.6 fL (36.4-46.3); Red Blood Count 2.81 M/uL (4.70-6.10)
[2024-03-22 06:51] LABS: BUN Creatinine Ratio 5.5 (10-20); Calcium 8.8 mg/dl (8.6-10.3); Creatinine Clr Calc Pharmacy 11.1 ml/min; Est GFR (African American) 6.1 ml/min; Est GFR (Non-African American) 5.2 ml/min; Phosphorus 8.2 mg/dl (2.5-4.9); Potassium 4.1 mmol/L (3.5-5.1)
[2024-03-22] MEDS ORDERED: SODIUM CHLORIDE 0.9% 1,000 ML IV PRN (07:00)
[2024-03-22] MEDS: SODIUM CHLORIDE 0.9% 1,000 ML IV SCH (08:16)
[2024-03-22] MEDS: ACETAMINOPHEN 1,000 MG/100 ML VIAL IV PRN (09:10)
--- NOTE | 2024-03-22 09:27 | Surgery Progress Note ---
Date of Service March 22, 2024 Assessment & Plan (1) Ileus: Plan: more likely ileus than sbo will repeat kub. if improved will pull ngt and retry liquids will d/w primary service--? gentle IVF's Admission and Anticipated Discharge Date Admission Date: March 17, 2024 Subjective pt seen. denies pain or nausea. per nurse pt had multiple bm's. ngt with minimal output overnight. Physical Exam Physical Exam: alert. nad abd: obese. soft. non tender. Results & Data Vital Signs (Past 12 Hours) Vital Signs Temp Pulse Pulse Resp BP BP Pulse Ox 03/22/24 08:56 38.2 C H 109 H 20 125/73 91 03/22/24 02:20 36.9 C 118 H 16 136/67 90 03/22/24 00:00 109 H O2 Del Method 03/22/24 08:56 Room Air 03/22/24 02:20 Room Air 03/22/24 00:00 PG Care Time/CCT Total # of Minutes Spent Total Time Spent with Patient: Total time spent is greater than 50% in coordination of care (as documented) at patient's floor/unit and/or counseling patient: Coding Level of Care Code 32547 SUB INP/OBS CARE 1/25MIN Diagnoses Ileus K56.7
--- NOTE | 2024-03-22 10:41 | Dialysis Progress Note ---
Date of Service March 22, 2024 Assessment & Plan Admission and Anticipated Discharge Date Admission Date: March 17, 2024 Subjective Assessment & Plan (1) ESRD on hemodialysis: Currently on HD and has HD cath. last HD was on Monday. Has Possible GI bleed/Ileus and SI symptoms. [place] [address]77 units procrit. BP is still low but better. aim for 1.5 kilo UF. will do 2k bath for 4 hrs. Biarb 38 and Qb of 300 and Qd of 600 UF 1.5 kilo. (2) ESRD on peritoneal dialysis: Eventual plan but currently not possible with Ongoing issues of GI bleed and Ileus. Also not sure how much he is able to do at home now with his new disabilities after severe stroke. he may never be able to do it. this decision will be done later by his outpt service member. also he probably needs intensive physical therapy for stroke and there is no way to do peritoneal dialysis at the rehab hospital (3) Aphasia, post-stroke: Still severe deficit. (4) Ileus: very complicated patient with extensive recent issue. [place] [facility] [place] notes from [place], Cardiology and hematology note reviewed. has Ileus again and NPO + NG tube. S--had nausea and vomiting and abd pain. felt to be ileus and seen by Gen surg. No surgery but is NPO and has NG tube now. BP also dropped yesterday but is good now. still has massive neurological deficit from stroke. Dialysis is going smoothly catheter is working fine and blood pressure is reasonable Physical Exam Constitutional: awake alert and no distress however unable to speak Neck: Supple. No JVD Respiratory: normal respiratory effort, lungs clear to auscultation Cardiovascular: RRR, no murmur, no edema Gastrointestinal (Abdomen): + abdomen distended PD cath in place and NGT in place Musculoskeletal: Extremities: extremities normal to inspection Skin: no rashes, warm and dry Neurologic: Awake and alert. Results & Data Vital Signs (Past 12 Hours) Vital Signs Temp Pulse Pulse Resp BP BP Pulse Ox 03/22/24 08:56 38.2 C H 109 H 20 125/73 91 03/22/24 02:20 36.9 C 118 H 16 136/67 90 03/22/24 00:00 109 H O2 Del Method 03/22/24 08:56 Room Air 03/22/24 02:20 Room Air 03/22/24 00:00
[2024-03-22] MEDS: EPOETIN ALFA 20,000 UNITS/ML VIAL IV ONE (13:31)
--- NOTE | 2024-03-22 16:45 | Hospitalist Progress Note ---
Date of Service March 22, 2024 Assessment & Plan (1) Ileus: (2) Hypotension: (3) Aphasia, post-stroke: (4) ESRD on peritoneal dialysis: (5) Acute ischemic left MCA stroke: (6) Essential hypertension: Plan Mr. 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 As per prior provider Patient's course since admission complicated by hypotension requiring pressor support, as well as acute on chronic anemia requiring blood product this am. Responsive to transfusion, hgb 8.7 s/p units. Possible Sepsis v SIRS Unclear source: Possible MRSA bacteremia Chronic immunosuppression on cyclosporine --CXR:No acute chest disease. --CT ABD:Numerous dilated loops of large and small bowel without a firm transition point. Findings may represent ileus versus partial obstruction. There may be a focus of adhesions in the right lower quadrant. --Blood Cx:as below -- Transiently in ICU requiring pressors --Recently completed zosyn course 03/16 for aspiration PNA Continue IV Zosyn and Dapto Elevated procalcitonin Started on midodrine Gentle IV fluids as needed Abnormal blood cultures Blood culture / growing gram-positive cocci in clusters Started on daptomycin given possible MRSA Will repeat blood cultures tomorrow If blood cultures confirmed MRSA, will require echo and possible ALICIA for further evaluation Will consider ID evaluation Ileus Vs P.SBO Recent UGIB 2/2 gastritis --CT ABD as above Continue bowel rest, NG tube, gentle IV fluids Appreciate surgery input On PPI for gastritis Repeat KUB today pending Surgery following Acute on chronic anemia Anemia likely multifactorial Received EPO [id number] IU sc once a week previously however held 2/2 recent stroke Transfuse hemoglobin <7 s/p 1 Unit PRBC 03/18 Monitor CBC continue PPI Will resume systemic anticoagulation upon stabilization of hgb ESRD on PD History of GPA s/p failed kidney transplant- on low-dose cyclosporin. Recent admission c/b hypotension, required CRRT and IHD PD catheter still in place Hold cinacalcet 60 mg daily via NG. Hold Cyclosporine 50 mg daily. Continue to avoid nephrotoxic drugs Appreciate nephrology input Monitor volume status while on IV fluids Recent L MCA stroke c/b aphasia, right hemiparesis Calcified Mitral calcification, suspect cardioembolic Small PFO ROPE score noted to be 5, planned for OP cards follow up ALICIA completed showing PFO, atrial septal aneurysm, and calcified nodule on P2 of mitral valve Discharged from [facility] [place] on eliquis and Lipitor On statin Resume Eliquis as able DM II HbA1c 4.9 Monitor BGs DVT Px: Heparin SQ CODE STATUS Full code Admission and Anticipated Discharge Date Admission Date: March 17, 2024 Subjective Patient is seen and examined at bedside Poor historian secondary to expressive aphasia Repeat KUB from today pending Was having hemodialysis during my encounter NG output slowly decreasing No nausea, vomiting, bowel movement today Patient denies any abdominal pain today Was febrile this morning Review of Systems Review of Systems: All systems reviewed & are unremarkable except as noted in Subjective Physical Exam Physical Exam: Physical Exam: Vitals signs as noted above General Appearance:Obese, no apparent distress Head: normocephalic, Atraumatic Eyes: normal inspection, EOMI Neck: supple, Trachea midline Respiratory/Chest: Normal breath sounds, CTA, No accessory muscle use Cardiovascular: S1, S2, No murmur Abdomen/GI:Soft, Non tender, distended, No audible Bowel sounds Extremities/Musculoskeletal:normal inspection, no edema Neurologic/Psych:AAOX3, + expressive aphasia, Right sided weakness Skin: normal color, warm Results & Data Results & Data Vital Signs (Past 12 Hours) Vital Signs Temp Pulse Pulse Pulse Resp BP BP 03/22/24 14:11 37.6 C H 107 H 20 112/73 03/22/24 13:55 36.6 C 108 H 119/68 03/22/24 13:44 102 H 114/67 03/22/24 13:30 102 H 109/75 03/22/24 13:02 105 H 03/22/24 13:00 107 H 105/65 03/22/24 12:30 102 H 113/60 03/22/24 12:00 107 H 109/69 03/22/24 11:30 108 H 120/75 03/22/24 11:00 105 H 115/69 03/22/24 10:30 105 H 114/69 03/22/24 10:00 99 H 100/65 03/22/24 09:42 102 H 117/69 03/22/24 09:30 36.4 C L 105 H 03/22/24 08:56 38.2 C H 109 H 20 125/73 03/22/24 08:00 03/22/24 08:00 80 BP Pulse Ox O2 Del Method 03/22/24 14:11 98 Room Air 03/22/24 13:55 119/68 03/22/24 13:44 03/22/24 13:30 03/22/24 13:02 03/22/24 13:00 03/22/24 12:30 03/22/24 12:00 03/22/24 11:30 03/22/24 11:00 03/22/24 10:30 03/22/24 10:00 03/22/24 09:42 03/22/24 09:30 03/22/24 08:56 91 Room Air 03/22/24 08:00 Room Air 03/22/24 08:00 Laboratory Results Short CBC 03/22/24 Range/Units 05:43 WBC 10.70 (4.8-10.8) K/ul Hgb 8.0 L (14.0-18.0) g/dl Hct 26.0 L (42.0-52.0) % Plt Count 228 (130-400) K/uL BMP 03/22/24 05:43 Sodium 140 Potassium 4.1 Chloride 100 Carbon Dioxide 20 L BUN 59 H Creatinine 10.71 H* D Glucose 86 Calcium 8.8 (2) Hypotension Hypotension type: hypotension due to hypovolemia Qualified Code(s): E86.1 - Hypovolemia
--- NOTE | 2024-03-22 17:09 | XRay Report ---
KUB HISTORY: bowel obstruction COMPARISON: KUB 03/21/2024. FINDINGS: Nasogastric tube terminates in the gastric antrum. Dilated gas-filled loops of bowel are ag ain seen throughout the abdomen. This is similar to the prior study. A left-sided peritoneal dialysis catheter is again noted and terminates in the right lower quadrant. No renal calculi. No ureteral c alculi. No pneumoperitoneum or pneumatosis. IMPRESSION: 1. Nasogastric tube terminates in the gastric antrum. 2. Multiple dilated gas-filled loops of large and small bowel are not significantly changed. This cou ld represent an ileus or bowel obstruction. ACT 112: Negative or not required by law. Electronically signed by: Yves Perez M.D. 03/22/2024 5:08 PM
[2024-03-23 05:50] LABS: Hematocrit (blood only) 25.5 % (42.0-52.0); Mean Corpuscular Hemoglobin 28.7 pg (25.0-34.0); Mean Corpuscular Hgb Conc 31.4 g/dL (32.0-36.0); Mean Corpuscular Volume 91.4 fL (80.0-100.0); Mean Platelet Volume 9.2 fL (9.4-12.4); Platelet Count 203 K/uL (130-400); RDW Coefficient of Variation 16.6 % (11.5-14.5); RDW Standard Deviation 55.1 fL (36.4-46.3); Red Blood Count 2.79 M/uL (4.70-6.10); White Blood Count 6.56 K/ul (4.8-10.8)
[2024-03-23 06:02] LABS: BUN Creatinine Ratio 4.7 (10-20); Calcium 8.9 mg/dl (8.6-10.3); Creatinine Clr Calc Pharmacy 15.5 ml/min; Est GFR (Non-African American) 7.8 ml/min; Phosphorus 6.2 mg/dl (2.5-4.9); Potassium 3.6 mmol/L (3.5-5.1)
--- NOTE | 2024-03-23 09:40 | Surgery Progress Note ---
<Statement entered by Westley Valencia, DO - 03/23/24 13:54> I have seen and examined this patient with surgical ACCESS COORDINATOR. I agree with the plan Date of Service March 23, 2024 Assessment & Plan (1) Ileus: Plan: NGT with low output pt has had BMs , denies flatus Can do a clamping trial of NGT if flatus check residuals at 4 hours if less than 200ml ok to remove from a surgical standpoint Wbc wnl seen and examined with Dr. Valencia Admission and Anticipated Discharge Date Admission Date: March 17, 2024 Subjective patient answers by shaking head denies abd pain, N/V , and flatus Review of Systems Constitutional: + fever (low grade temp noted 99.9) Gastrointestinal: no abdominal pain, no nausea and no vomiting Physical Exam Constitutional: cooperative; no acute distress Respiratory: normal respiratory effort; no respiratory distress Cardiovascular: Rate/Rhythm: + tachycardic (106) Gastrointestinal (Abdomen): Inspection/Auscultation: + abdomen distended Results & Data Vital Signs (Past 12 Hours) Vital Signs Temp Pulse Pulse Pulse Resp BP Pulse Ox 03/23/24 07:10 99.9 F H 106 H 20 127/71 91 03/23/24 03:01 99.0 F 106 H 19 131/79 93 03/23/24 00:00 73 03/22/24 23:01 98.8 F 107 H 20 117/72 95 O2 Del Method 03/23/24 07:10 Room Air 03/23/24 03:01 Room Air 03/23/24 00:00 03/22/24 23:01 Room Air Results CBC w Diff Results: RBC 2.79 M/uL (4.70-6.10) L 03/23/24 WBC 6.56 K/ul (4.8-10.8) 03/23/24 Hgb 8.0 g/dl (14.0-18.0) L 03/23/24 Hct 25.5 % (42.0-52.0) L 03/23/24 MCV 91.4 fL (80.0-100.0) 03/23/24 MCH 28.7 pg (25.0-34.0) 03/23/24 MCHC 31.4 g/dL (32.0-36.0) L 03/23/24 RDW Standard Deviation 55.1 fL (36.4-46.3) H 03/23/24 RDW Coefficient of Variation 16.6 % (11.5-14.5) H 03/23/24 Plt Count 203 K/uL (130-400) 03/23/24 MPV 9.2 fL (9.4-12.4) L 03/23/24 Nucleated Red Blood Cells % (auto) 0.3 % 03/22 Nucleated RBC Absolute Count (auto) 0.03 K/uL (0.00-0.12) 0 03/22/24 Neutrophils (%) (Auto) 65.9 % 03/20/24 Lymphocytes (%) (Auto) 18.3 % 03/20/24 Monocytes # (Auto) 0.99 K/uL (0.11-0.59) H 03/20/24 Eosinophils # (Auto) 0.45 K/uL (0.00-0.50) 03/20/24 Immature Granulocyte % (Auto) 1.8 % 03/20/24 Neutrophils # (Auto) 7.18 K/uL (1.40-6.50) H 03/20/24 Lymphocytes # (Auto) 2.00 K/uL (1.20-3.40) 03/20/24 Monocytes # (Auto) 0.99 K/uL (0.11-0.59) H 03/20/24 Eosinophils # (Auto) 0.45 K/uL (0.00-0.50) 03/20/24 Basophils # (Auto) 0.09 K/uL (0.00-0.20) 03/20/24 Immature Granulocyte # (Auto) 0.20 K/uL (0.01-0.20) 4 Polychromasia 1+ 03/18/24 Anisocytosis Present 03/18/24 PG Care Time/CCT Total # of Minutes Spent Total Time Spent with Patient: Total time spent is greater than 50% in coordination of care (as documented) at patient's floor/unit and/or counseling patient: Coding Level of Care Code 25858 SUB INP/OBS CARE 1/25MIN Diagnoses Ileus K56.7
--- NOTE | 2024-03-23 15:02 | Hospitalist Progress Note ---
Date of Service March 23, 2024 Assessment & Plan (1) Ileus: (2) Hypotension: (3) Aphasia, post-stroke: (4) ESRD on peritoneal dialysis: (5) Acute ischemic left MCA stroke: (6) Essential hypertension: Plan Mr. 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 As per prior provider Patient's course since admission complicated by hypotension requiring pressor support, as well as acute on chronic anemia requiring blood product this am. Responsive to transfusion, hgb 8.7 s/p units. Possible Sepsis v SIRS Unclear source: Possible bacteremia, Pulmonary Source Chronic immunosuppression on cyclosporine --CXR:No acute chest disease. --CT ABD:Numerous dilated loops of large and small bowel without a firm transition point. Findings may represent ileus versus partial obstruction. There may be a focus of adhesions in the right lower quadrant. --Blood Cx:as below -- Transiently in ICU requiring pressors --Recently completed zosyn course 03/16 for aspiration PNA Continue IV Zosyn and Dapto Elevated procalcitonin Started on midodrine Gentle IV fluids as needed Clinically improving Abnormal blood cultures Blood culture 09/14 coagulase-negative staph Repeat blood cultures pending Continue daptomycin, Zosyn as above Will obtain resting echo Will consult infectious disease on Monday Ileus Vs P.SBO Recent UGIB 2/2 gastritis --CT ABD as above Continue bowel rest, NG tube, gentle IV fluids Appreciate surgery input On PPI for gastritis Decreased NG tube tube output Plan for NG tube clamping per surgery N.p.o. currently Acute on chronic anemia Anemia likely multifactorial Received EPO [id number] IU sc once a week previously however held 2/2 recent stroke Transfuse hemoglobin <7 s/p 1 Unit PRBC 03/18 Monitor CBC continue PPI Will resume systemic anticoagulation upon stabilization of hgb/SBO resolves ESRD on PD History of GPA s/p failed kidney transplant- on low-dose cyclosporin. Recent admission c/b hypotension, required CRRT and IHD PD catheter still in place Hold cinacalcet 60 mg daily via NG. Hold Cyclosporine 50 mg daily. Continue to avoid nephrotoxic drugs Appreciate nephrology input Monitor volume status Recent L MCA stroke c/b aphasia, right hemiparesis Calcified Mitral calcification, suspect cardioembolic Small PFO ROPE score noted to be 5, planned for OP cards follow up ALICIA completed showing PFO, atrial septal aneurysm, and calcified nodule on P2 of mitral valve Discharged from [facility] [place] eliquis and Lipitor On statin Resume Eliquis as able DM II HbA1c 4.9 Monitor BGs DVT Px: Heparin SQ CODE STATUS Full code Admission and Anticipated Discharge Date Admission Date: March 17, 2024 Subjective Patient is seen and examined at bedside Poor historian secondary to expressive aphasia NG low output Had bowel movements overnight Denies any abdominal pain, chest pain, dyspnea Plan for NG tube clamping today Review of Systems Review of Systems: All systems reviewed & are unremarkable except as noted in Subjective Physical Exam Physical Exam: Physical Exam: Vitals signs as noted above General Appearance:Obese, no apparent distress Head: normocephalic, Atraumatic Eyes: normal inspection, EOMI Neck: supple, Trachea midline Respiratory/Chest: Normal breath sounds, CTA, No accessory muscle use Cardiovascular: S1, S2, No murmur Abdomen/GI:Soft, Non tender, distended, No audible Bowel sounds Extremities/Musculoskeletal:normal inspection, no edema Neurologic/Psych:AAOX3, + expressive aphasia, Right sided weakness Skin: normal color, warm Results & Data Results & Data Vital Signs (Past 12 Hours) Vital Signs Temp Pulse Pulse Pulse Resp BP Pulse Ox 03/23/24 12:39 37.7 C H 99 H 18 135/87 93 03/23/24 08:00 03/23/24 08:00 105 H 03/23/24 07:10 37.7 C H 106 H 20 127/71 91 03/23/24 03:01 37.2 C 106 H 19 131/79 93 O2 Del Method 03/23/24 12:39 Room Air 03/23/24 08:00 Room Air 03/23/24 08:00 03/23/24 07:10 Room Air 03/23/24 03:01 Room Air Laboratory Results Short CBC 03/23/24 Range/Units 05:22 WBC 6.56 (4.8-10.8) K/ul Hgb 8.0 L (14.0-18.0) g/dl Hct 25.5 L (42.0-52.0) % Plt Count 203 (130-400) K/uL BMP 03/23/24 05:22 Sodium 138 Potassium 3.6 Chloride 99 Carbon Dioxide 23 BUN 36 H D Creatinine 7.69 H* D Glucose 84 Calcium 8.9 (2) Hypotension Hypotension type: hypotension due to hypovolemia Qualified Code(s): E86.1 - Hypovolemia
[2024-03-24 05:43] LABS: BUN Creatinine Ratio 5.1 (10-20); Calcium 8.9 mg/dl (8.6-10.3); Creatinine Clr Calc Pharmacy 11.1 ml/min; Est GFR (African American) 6.1 ml/min; Est GFR (Non-African American) 5.3 ml/min; Potassium 3.8 mmol/L (3.5-5.1)
--- NOTE | 2024-03-24 10:32 | Surgery Progress Note ---
<Statement entered by Westley Valencia, - 03/24/24 16:21> I have seen and examined this patient with the surgical PA, I agree with this plan. Followed up residuals. 6cc removed after clamping trial. NGT has been removed and patient has been advanced to sips and chips. Date of Service March 24, 2024 Assessment & Plan (1) Ileus: Plan: Pt here w/ concern for ileus he is passing flatus. NGT with minimal output will attempt NGT clamp trial, clamp from 9a-1p, then check residuals, if low may remove tube and start sips/chips no plans for surgical intervention Admission and Anticipated Discharge Date Admission Date: March 17, 2024 Subjective Patient resting in bed. Shakes head no in response to having any abdominal pain/nausea/vomiting. Shakes head yes in response to passing flatus. Physical Exam Physical Exam: awake, resting, no distress Gastrointestinal (Abdomen): Inspection/Auscultation: + abdomen distended Percussion/Palpation: abdomen soft; abdomen nontender NGT with small amount of output in canister Results & Data Vital Signs (Past 12 Hours) Vital Signs Temp Pulse Pulse Pulse Resp BP Pulse Ox 03/24/24 08:00 03/24/24 08:00 95 H 03/24/24 07:13 99.7 F H 100 H 18 133/86 92 03/24/24 02:56 99.0 F 99 H 19 138/84 90 03/23/24 23:44 96 H 03/23/24 22:52 99.0 F 101 H 21 124/81 92 O2 Del Method 03/24/24 08:00 Room Air 03/24/24 08:00 03/24/24 07:13 Room Air 03/24/24 02:56 Room Air 03/23/24 23:44 03/23/24 22:52 Room Air PG Care Time/CCT Total # of Minutes Spent Total Time Spent with Patient: Total time spent is greater than 50% in coordination of care (as documented) at patient's floor/unit and/or counseling patient: Coding Level of Care Code 14600 SUB INP/OBS CARE 1/25MIN Diagnoses Ileus K56.7
--- NOTE | 2024-03-24 14:37 | Hospitalist Progress Note ---
Date of Service March 24, 2024 Assessment & Plan (1) Ileus: (2) Hypotension: (3) Aphasia, post-stroke: (4) ESRD on peritoneal dialysis: (5) Acute ischemic left MCA stroke: (6) Essential hypertension: Plan Mr. 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 As per prior provider Patient's course since admission complicated by hypotension requiring pressor support, as well as acute on chronic anemia requiring blood product this am. Responsive to transfusion, hgb 8.7 s/p units. Possible Sepsis v SIRS Unclear source: Possible bacteremia, Pulmonary Source Chronic immunosuppression on cyclosporine --CXR:No acute chest disease. --CT ABD:Numerous dilated loops of large and small bowel without a firm transition point. Findings may represent ileus versus partial obstruction. There may be a focus of adhesions in the right lower quadrant. --Blood Cx:as below -- Transiently in ICU requiring pressors --Recently completed zosyn course 03/16 for aspiration PNA Continue IV Zosyn and Dapto Elevated procalcitonin Started on midodrine Gentle IV fluids as needed TTE study limited for assessment of endocarditis. Consulted infectious disease Abnormal blood cultures Blood culture 09/14 coagulase-negative staph Repeat blood cultures: Negative to date Continue daptomycin, Zosyn as above Await for further input from ID Ileus Vs P.SBO Recent UGIB 2/2 gastritis --CT ABD as above Continue bowel rest, NG tube, gentle IV fluids Appreciate surgery input On PPI for gastritis NG tube output minimal + Flatus Trial of NG tube clamping today Surgery to consider NG tube removal today Surgery following Acute on chronic anemia Anemia likely multifactorial Received EPO [id number] IU sc once a week previously however held 2/2 recent stroke Transfuse hemoglobin <7 s/p 1 Unit PRBC 03/18 Monitor CBC continue PPI Will resume systemic anticoagulation upon stabilization of hgb/SBO resolves ESRD on PD History of GPA s/p failed kidney transplant- on low-dose cyclosporin. Recent admission c/b hypotension, required CRRT and IHD PD catheter still in place Hold cinacalcet 60 mg daily via NG. Hold Cyclosporine 50 mg daily. Continue to avoid nephrotoxic drugs Appreciate nephrology input Monitor volume status Continue dialysis per nephrology Recent L MCA stroke c/b aphasia, right hemiparesis Calcified Mitral calcification, suspect cardioembolic Small PFO ROPE score noted to be 5, planned for OP cards follow up ALICIA completed showing PFO, atrial septal aneurysm, and calcified nodule on P2 of mitral valve Discharged from [facility] [place] on eliquis and Lipitor On statin Resume Eliquis as able DM II HbA1c 4.9 Monitor BGs DVT Px: Heparin SQ CODE STATUS Full code Admission and Anticipated Discharge Date Admission Date: March 17, 2024 Subjective Patient is seen and examined at bedside Poor historian secondary to expressive aphasia NG showed minimal output No bowel movement today per patient + Flatus per record Denies any abdominal pain, chest pain, dyspnea Repeat blood cultures remain negative today Review of Systems Review of Systems: All systems reviewed & are unremarkable except as noted in Subjective Physical Exam Physical Exam: Physical Exam: Vitals signs as noted above General Appearance:Obese, no apparent distress Head: normocephalic, Atraumatic Eyes: normal inspection, EOMI Neck: supple, Trachea midline Respiratory/Chest: Normal breath sounds, CTA, No accessory muscle use Cardiovascular: S1, S2, No murmur Abdomen/GI:Soft, Non tender, distended, No audible Bowel sounds Extremities/Musculoskeletal:normal inspection, no edema Neurologic/Psych:AAOX3, + expressive aphasia, Right sided weakness Skin: normal color, warm Results & Data Results & Data Vital Signs (Past 12 Hours) Vital Signs Temp Pulse Pulse Pulse Resp BP Pulse Ox 03/24/24 12:25 36.8 C 92 H 18 132/86 92 03/24/24 08:00 03/24/24 08:00 95 H 03/24/24 07:13 37.6 C H 100 H 18 133/86 92 03/24/24 02:56 37.2 C 99 H 19 138/84 90 O2 Del Method 03/24/24 12:25 Room Air 03/24/24 08:00 Room Air 03/24/24 08:00 03/24/24 07:13 Room Air 03/24/24 02:56 Room Air Laboratory Results [facility] 03/24/24 04:54 Sodium 141 Potassium 3.8 Chloride 102 Carbon Dioxide 19 L BUN 54 H Creatinine 10.65 H* D Glucose 83 Calcium 8.9 (2) Hypotension Hypotension type: hypotension due to hypovolemia Qualified Code(s): E86.1 - Hypovolemia
--- NOTE | 2024-03-24 22:46 | Communication Note ---
Date of Service: March 24, 2024 Patient with hematemesis episode without unusual abdominal pain as per RN. AP UGIB Changed to twice daily PPI to Protonix infusion.
[2024-03-24] MEDS: PANTOprazole 40 MG in DEXTROSE 5% MINI-B 100 ML IV SCH (22:59)
[2024-03-24] MEDS: PANTOprazole 40 MG in SYRINGE 0 ML IV ONE (22:59)
[2024-03-24 23:08] LABS: Magnesium 2.4 mg/dl (1.7-2.4)
[2024-03-24 23:46] LABS: Hematocrit (blood only) 24.2 % (42.0-52.0); Hemoglobin 7.7 g/dl (14.0-18.0)
[2024-03-25] MEDS ORDERED: SODIUM CHLORIDE 0.9% 1,000 ML IV PRN (07:00)
[2024-03-25] MEDS: SODIUM CHLORIDE 0.9% 1,000 ML IV SCH ×2 (08:10→13:40)
[2024-03-25 08:41] LABS: Hematocrit (blood only) 25.1 % (42.0-52.0); Hemoglobin 8.1 g/dl (14.0-18.0); Mean Corpuscular Hemoglobin 28.7 pg (25.0-34.0); Mean Corpuscular Hgb Conc 32.3 g/dL (32.0-36.0); Mean Platelet Volume 9.6 fL (9.4-12.4); Platelet Count 157 K/uL (130-400); RDW Coefficient of Variation 16.1 % (11.5-14.5); RDW Standard Deviation 52.1 fL (36.4-46.3); Red Blood Count 2.82 M/uL (4.70-6.10); White Blood Count 7.01 K/ul (4.8-10.8)
[2024-03-25 08:52] LABS: BUN Creatinine Ratio 6.4 (10-20); Calcium 9.4 mg/dl (8.6-10.3); Creatinine Clr Calc Pharmacy 9.1 ml/min; Est GFR (African American) 4.8 ml/min; Est GFR (Non-African American) 4.2 ml/min; Potassium 4.5 mmol/L (3.5-5.1)
--- NOTE | 2024-03-25 08:53 | Surgery Progress Note ---
Date of Service March 25, 2024 Assessment & Plan (1) Hematochezia: Plan: stable. hold heparin type and cross prbc's will need GI to perform EGD will follow along although no surgical plans as of now (2) Acute blood loss anemia: (3) ESRD on hemodialysis: (4) Ileus: Admission and Anticipated Discharge Date Admission Date: March 17, 2024 Subjective pt seen. nurses at bedside. pt just had large bloody emesis. had been doing well yesterday per his nurse. +bm's over weekend. Hg now approx 7.5 pt alert. denies abdominal pain Physical Exam Physical Exam: alert. appears comfortable abd: soft. mild distension. loose bm in the bed. bloody emesis on chest. Results & Data Vital Signs (Past 12 Hours) Vital Signs Temp Pulse Pulse Pulse Pulse Resp BP 03/25/24 07:00 121 H 121 H 20 113/74 03/25/24 03:50 37.4 C 115 H 22 106/73 03/25/24 00:46 107 H 22 122/83 03/24/24 23:30 105 H 03/24/24 23:29 37.4 C 110 H 22 116/77 Pulse Ox O2 Del Method 03/25/24 07:00 92 Room Air 03/25/24 03:50 96 Room Air 03/25/24 00:46 94 Room Air 03/24/24 23:30 03/24/24 23:29 93 Room Air PG Care Time/CCT Total # of Minutes Spent Total Time Spent with Patient: Total time spent is greater than 50% in coordination of care (as documented) at patient's floor/unit and/or counseling patient: Coding Level of Care Code 04141 SUB INP/OBS CARE 2/35MIN Diagnoses Hematochezia K92.1 Acute blood loss anemia D62 ESRD on hemodialysis N18.6; Z99.2 Ileus K56.7
[2024-03-25 08:59] LABS: INR 1.1 (0.9-1.1); Prothrombin Time 12.2 Seconds (9.0-12.0)
--- NOTE | 2024-03-25 10:32 | Gastrointestinal Consultation ---
<Statement entered by Yassine Calixto MD - 03/25/24 19:34> Patient seen and examined. Case discussed with KAIN, Kayleigh ? stress ulceration vs other. Patient vomited a significant amount of blood and clot and became hypotensive requiring pressor support. EGD planned. This procedure, the alternatives including no work up or treatment, risks and benefits were discussed with the patient and parents bedside. Among the risks discussed included cardiorespiratory suppression, aspiration, bleeding, failure to diagnose cancer or other pathology and perforation requiring surgery. In addition we discussed that if specimens are obtained it may be deemed beneficial to send these for genetic/DNA testing. They claimed to understand all that was discussed, consented to all and all of their questions were answered. Date of Consultation March 25, 2024 Assessment & Plan (1) Hematemesis: Patient currently admitted with Ileus vs SBO with concern for sepsis. After NG was removed, he had episodes of hematemesis. I suspect that this is secondary to possible trauma during removal of NG as he actively has a bloody nose when I was in to see him this morning. I suspect that the blood had gone to his stomach and caused the vomiting. no drop in hgb, in fact, it is slightly up today. - continue with PPI drip for now. - monitor hgb/hct and transfuse as needed. - patient is not interested in EGD to further evaluate at this time. - may need to consider ENT evaluation as source of blood is likely nasal. 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 Patient has aphasia but is able to answer questions via yes or no. History was also obtained through the chart and nursing. Per nursing, patient had NG tube removed yesterday afternoon and a few hours later had developed episodes of hematemesis. Since that time he has continued to cough out clots and have clots in the back of his throat. Patient denies any nausea, heartburn, abdominal pain, melena, brbpr. no nsaid use. 03/25/24 hgb 8.1 (previously was 7.7) Allergies Allergy/AdvReac Type Severity Reaction Status Date / Time No Known Allergies Allergy Verified 03/17/24 11:47 Home Medications Medication Instructions Recorded Confirmed Type apixaban 5 mg tablet (Eliquis) 5 mg PO BID 03/17/24 03/17/24 History atorvastatin 40 mg tablet 40 mg PO HS 03/17/24 03/17/24 History calcium acetate(phosphat bind) 667 2,001 mg PO UD 03/17/24 03/17/24 History mg capsule cinacalcet 30 mg tablet 60 mg PO QPM 03/17/24 03/17/24 History cyclosporine modified 25 mg capsule 50 mg PO BID 03/17/24 03/17/24 History febuxostat 80 mg tablet 80 mg PO QAM 03/17/24 03/17/24 History ferric citrate 210 mg iron tablet 210 mg PO AC 03/17/24 03/17/24 History (Auryxia) metoprolol succinate 100 mg 100 mg PO QAM 03/17/24 03/17/24 History tablet,extended release 24 hr omeprazole 20 mg capsule,delayed 20 mg PO BID 03/17/24 03/17/24 History release vitamin B complex and vitamin C 1 cap PO DAILY 03/17/24 03/17/24 History no.20-folic acid 1 mg capsule Patient History Medical History Legionnaires' disease Diastolic congestive heart failure Failed kidney transplant Gouty arthropathy Granulomatosis with polyangiitis with renal involvement Surgical History History of kidney transplant Family History Other Cancer Diabetes Hypertension Social History Smoking Status: Never smoker Hx Alcohol Use: No Hx Substance Use: No Preferred Language: Yoruba Communication Ability: Unable Automatic Edger Required: No Beliefs That Will Affect Care: None Feels Safe at Home: Yes Assistive Devices: Walker Review of Systems Review of Systems: All systems reviewed & are unremarkable except as noted in HPI & below Physical Exam Constitutional: WD/WN, vitals as above ENMT: patient has a bloody nose. Respiratory: normal respiratory effort, lungs clear to auscultation Cardiovascular: RRR, no murmur, no edema Gastrointestinal (Abdomen): normal bowel sounds, soft, nontender, no hepatosplenomegaly Psychiatric: Orientation: alert Results & Data Vital Signs (Past 12 Hours) Vital Signs Temp Pulse Pulse Pulse Pulse Resp BP 03/25/24 07:00 121 H 121 H 20 113/74 03/25/24 03:50 99.3 F 115 H 22 106/73 03/25/24 00:46 107 H 22 122/83 03/24/24 23:30 105 H 03/24/24 23:29 99.3 F 110 H 22 116/77 Pulse Ox O2 Del Method 03/25/24 07:00 92 Room Air 03/25/24 03:50 96 Room Air 03/25/24 00:46 94 Room Air 03/24/24 23:30 03/24/24 23:29 93 Room Air Coding Level of Care Code 64431 IN/OBS CONSULT LVL 4,60M Diagnoses Hematemesis K92.0
[2024-03-25] MEDS ORDERED: TXA 10% Non-IV Routes 100 MG/ML VIAL NEB ONE ×4 (10:44→11:30)
--- NOTE | 2024-03-25 11:44 | Nephrology Progress Note ---
Date of Service March 25, 2024 Assessment & Plan (1) Hypotension: Plan: worsening acutely today in setting of active bleeding source unclear -serial H/H -one low volume bolus ok; otherwise likely to need pressor support >CXR to assess volume (2) ESRD on hemodialysis: Plan: Currently on HD and has HD cath, nonfunctional AVF. last HD was on Monday. has Possible GI bleed/Ileus and SI symptoms. anuric; no UF last tx >>needs HD but now hypotensive/tachy w/ bleeding ?nasal/?pharyngeal/? GI. >stat CXR >in my opinion he'd be best served w/ pressor support for HD ready to titrate as needed > appreciate ICU evaluation on this matter BP is still low and given NPO and Ileus -serial H/H >plan 2k bath for 4 hrs. Biarb 35 and Qb of 300 and Qd of 600, UF as tolerated; no heparin; aggressive epo dosing. high risk for bleeding, blood pressure complications. care coordinated w/ Dr Sharp re ICU eval; we are in agreement (3) ESRD on peritoneal dialysis: Plan: Eventual plan but currently not possible with Ongoing issues of GI bleed and Ileus. Also not sure how much he is able to do at home now with his new disabilities after severe stroke. he may never be able to do it. this decision will be done later. (4) Aphasia, post-stroke: Plan: Still severe deficit. (5) Ileus: Plan: very complicated patient with extensive recent issue. Admission and Anticipated Discharge Date Admission Date: March 17, 2024 Subjective seen on am rounds. NGT out yesterday afternoon. large hematemesis last evening 2200 and again this am. lots of clots; GI believes this is nasal source dripping to stomach > emesis. hgb stable so far. tachycardic now and SBP 80s manually. had 2L over weekend IVF w/ NPO status. anuric. Review of Systems 2 Review of Systems: Other (limited by pt aphasia) Physical Exam 2 Constitutional: well developed and well nourished Eyes: EOM intact bilaterally ENMT: Ears: no external ear abnormality Nose: no external nose abnormality Mouth: + dry oral mucous membranes Neck: no nuchal rigidity Respiratory: normal respiratory effort Auscultation: + diminished lung sounds Cardiovascular: Rate/Rhythm: + tachycardic Gastrointestinal (Abdomen): Inspection/Auscultation: normal bowel sounds P ercussion/Palpation: abdomen soft; abdomen nontender Musculoskeletal: Extremities: strength 5/5 throughout Skin: no rashes, warm and dry Neurologic: expressive aphasia; R sided weakness Results & Data Vital Signs (Past 12 Hours) Vital Signs Temp Pulse Pulse Pulse Resp BP Pulse Ox 03/25/24 07:00 121 H 121 H 20 113/74 92 03/25/24 03:50 37.4 C 115 H 22 106/73 96 03/25/24 00:46 107 H 22 122/83 94 O2 Del Method 03/25/24 07:00 Room Air 03/25/24 03:50 Room Air 03/25/24 00:46 Room Air Laboratory Results 03/25/24 08:15 last hgb 8.1 (1) Hypotension Hypotension type: hypotension due to hypovolemia Qualified Code(s): E86.1 - Hypovolemia
[2024-03-25] MEDS: TXA 10% Non-IV Routes 100 MG/ML VIAL NEB ONE (11:45)
[2024-03-25] MEDS: SODIUM CHLORIDE 0.9% 250 ML IV PRN (11:47)
[2024-03-25] MEDS: SODIUM CHLORIDE 0.9% 250 ML IV ONE (11:48)
--- NOTE | 2024-03-25 12:39 | Infectious Disease Consult ---
Date of Service March 25, 2024 Telehealth Information I performed this visit using a real-time telehealth connection between my location and the patients location ([facility]). 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 My office door was closed and no one else was present in the room with me.Patient (or authorized healthcare truck sales representative) provided consent to proceed with the visit, expressed an understanding of privacy and security of the telemedicine visit, and gave permission to have a hospital truck sales representative in the room in order to assist with the visit and to conduct portions of the visit, as needed. I informed the patient (or authorized healthcare truck sales representative) that I reviewed their record and presented the opportunity for them to ask any questions regarding the visit today. The patient agreed to participate. Assessment & Plan (1) ESRD on hemodialysis: Plan: His blood cultures growing coagulase negative staph likely represents conta mination and his blood cultures cleared rapidly (2) Small bowel obstruction: Plan: NGT removed tolerating oral feeds (3) Coagulase negative Staphylococcus bacteremia: Plan: 09/14 BT likely a contaminant and would not recommend tretaing Plan Patient who presented with abdominal pain and distention and was found to have SBO for which he was evaluated by GS and conservative management was recommended .His blood cultures have grown PARTS ADMINISTRATOR and he is on zosyn .Would recommend discontinuing his antibiotics as his blood culture likely represents contamination and unless he has a bowel perforation,fever or leukocytosis there is no need for empiric antibiotics .His blood culturees likely represents contamination but he has a HD catheter and so would monitor and closely follow up repeat blood cultures Thank you for allowing us to participate in the care of this patient ID will sign off History of Present Illness History of Present Illness 44 y/o male PMHx ESRD on PD, recent Left MCA stroke s/p unsuccessful thrombectomy with residual right hemiparesis and expressive aphasia, mitral leaflet non-mobile calcified mass, PFO, granulomastosis w/ polyangiitis, hx failed renal transplant, who presented to the ED from [facility] after he developed vomiting and progressive abdominal distention since the previous night . Recent admission to [facility] with acute left MCA stroke with resultant severe expressive aphasia and right hemiparesis. Patient was transferred to [facility] but overnight developed recurrent vomiting and abdominal distention and so he was transferred to the ED where work-up showed severe ileus vs. bowel obstruction. ED provider spoke with surgery who recommended NGT placement and observation. Patient wss started on empiric zosyn Blood cultures have grown coagulase negative staphylococcus .He was evaluated by GS and no surgical intervention was recommended Allergies Allergy/AdvReac Type Severity Reaction Status Date / Time No Known Allergies Allergy Verified 03/17/24 11:47 Home Medications Medication Instructions Recorded Confirmed Type apixaban 5 mg tablet (Eliquis) 5 mg PO BID 03/17/24 03/17/24 History atorvastatin 40 mg tablet 40 mg PO HS 03/17/24 03/17/24 History calcium acetate(phosphat bind) 667 2,001 mg PO UD 03/17/24 03/17/24 History mg capsule cinacalcet 30 mg tablet 60 mg PO QPM 03/17/24 03/17/24 History cyclosporine modified 25 mg capsule 50 mg PO BID 03/17/24 03/17/24 History febuxostat 80 mg tablet 80 mg PO QAM 03/17/24 03/17/24 History ferric citrate 210 mg iron tablet 210 mg PO AC 03/17/24 03/17/24 History (Auryxia) metoprolol succinate 100 mg 100 mg PO QAM 03/17/24 03/17/24 History tablet,extended release 24 hr omeprazole 20 mg capsule,delayed 20 mg PO BID 03/17/24 03/17/24 History release vitamin B complex and vitamin C 1 cap PO DAILY 03/17/24 03/17/24 History no.20-folic acid 1 mg capsule Patient History Medical History Legionnaires' disease Diastolic congestive heart failure Failed kidney transplant Gouty arthropathy Granulomatosis with polyangiitis with renal involvement Surgical History History of kidney transplant Family History Other Cancer Diabetes Hypertension Social History Smoking Status: Never smoker Hx Alcohol Use: No Hx Substance Use: No Preferred Language: Comoran Communication Ability: Unable Internal Security Manager Required: No Beliefs That Will Affect Care: None Feels Safe at Home: Yes Assistive Devices: Walker Results & Data Vital Signs (Past 12 Hours) Vital Signs Temp Pulse Pulse Pulse Resp BP Pulse Ox 03/25/24 11:58 116 H 19 99 03/25/24 11:23 121 H 97/65 L 03/25/24 10:51 125 H 84/52 L 03/25/24 09:23 120 H 20 95/61 L 03/25/24 08:38 121 H 109/73 03/25/24 07:15 03/25/24 07:00 121 H 121 H 20 113/74 92 03/25/24 03:50 37.4 C 115 H 22 106/73 96 03/25/24 00:46 107 H 22 122/83 94 O2 Del Method 03/25/24 11:58 Room Air 03/25/24 11:23 03/25/24 10:51 03/25/24 09:23 03/25/24 08:38 03/25/24 07:15 Room Air 03/25/24 07:00 Room Air 03/25/24 03:50 Room Air 03/25/24 00:46 Room Air Laboratory Results No leukocytosis Diagnostic Findings Blood Culture Aerobic Preliminary 03/23/24-1202 Organism 1 Coag neg staph not lugdunensis Sens No Sensitivities to Follow Blood Culture PCR Panel If viewing in EMR, results available under LAB Serology tab. One set of two positive. Isolation does not necessarily mean infection. No susceptibility tests performed. Contact microbiology laboratory ([phone]) if further studies are indicated. IMPRESSION: 1. Nasogastric tube terminates in the gastric antrum. 2. Multiple dilated gas-filled loops of large and small bowel are not significantly changed. This could represent an ileus or bowel obstruction.
[2024-03-25 12:50] LABS: Hematocrit (blood only) 23.5 % (42.0-52.0); Hemoglobin 7.4 g/dl (14.0-18.0)
[2024-03-25] MEDS: SODIUM CHLORIDE 0.65% NA SOLN 45 ML (OCEAN) ONE (13:39)
--- NOTE | 2024-03-25 13:54 | Critical Care Progress Note ---
Date of Service March 25, 2024 Assessment & Plan (1) Ileus: (2) Hypotension: (3) Anemia in ESRD (end-stage renal disease): (4) ESRD on peritoneal dialysis: (5) Acute blood loss anemia: Plan Reason Critically Ill: 44-year-old male with a significant past medical history of end-stage renal disease on hemodialysis who is status post large MCA CVA with residual RIGHT-sided hemiplegia and aphasia who was admitted in the setting of ileus and developed findings concerning of upper GI bleed versus epistaxis. NEURO - * CAM ICU: NEGATIVE * Recent LEFT-sided MCA CVA with unsuccessful clot retrieval: * Residual RIGHT-sided hemiparesis and expressive aphasia. * Continue with PT/OT therapies as indicated. CARDIAC/VASCULAR - * Hypotension: * Patient with acute hypotension in the setting of concerns for blood loss anemia after hematemesis versus epistaxis. On evaluation at bedside at this time, the patient does appear to have a large clot suspended at the back of his throat. No blood noted in the nares with active bleeding or stigmata of recent blood. Abdominal exam is unremarkable and without signs of distention. Regardless, would agree with continuing PPI for now until bleeding declares itself. That being said, there is no bleeding from his nostrils at this time. Temporally, this was related to removal of the patient's NG tube. * Vasopressors as needed. * Type and screen and trend H&H. * Transfuse if needed. * Patient requiring hemodialysis today and concerns that he would likely not tolerate standard hemodialysis with his current pressures. Will be transferred to the ICU for closer monitoring. * Monitor on telemetry. RESPIRATORY - * No history of pulmonary disease. * Saturating well on room air. GI/NUTRITION - * Concerns for upper GI bleeding: * Concerns for hematemesis and hematochezia yesterday. Started on Protonix drip. * GI had seen the patient and does not feel emergent upper endoscopy is necessary or warranted at this time. * Continue to stabilize and transfuse if needed. * Certainly, as there is not visible bleeding noted at this time, the patient working to continue to drop his H&H, low threshold for need for upper endoscopy to assess for possible bleeding source. * Prophylaxis: Protonix drip RENAL/LYTES - * End-stage renal disease on hemodialysis: * Continue per nephrology management. - * No concerns at this time. ENDO - * DMII * BSGs per unit protocol. ISS --> gtt per unit policy. HEME - * Anemia: * Concerns for acute blood loss anemia. Patient with ongoing significant blood loss. Will give 2 units of packed RBCs and DDAVP for dysfunctional platelets possibly from uremia. * Hold anticoagulation for now. * Patient seen by ENT and GI. * Received nebulized TXA. * No appreciated active bleeding in the upper airways noted. ID - * Coagulase negative Staphylococcus bacteremia: * Had previously been on Zosyn. * Antibiotics discontinued today by infectious disease for likelihood of contamination. * Monitor cultures again for possibility of infected HD catheter. LINES/IV ACCESS - * PIVs x2 DVT PROPHYLAXIS - * Hold on anticoagulation in the setting of bleeding. * SCDs I have personally spent 45 minutes of critical care time in the direct management of this patient. This is a life/limb threatening event. This includes time spent evaluating patient, direct bedside care, chart review, placing orders, interpretation of diagnostic studies, discussion with consultants, patient, and family members, as well as other required patient management activities. This time is exclusive of all separately billable procedures, and teaching time and separate from and in addition to any other critical care service time. Thank you for all Admission and Anticipated Discharge Date Admission Date: March 17, 2024 Subjective Patient is an unfortunate 44-year-old male with a significant past medical history of end-stage renal disease on hemodialysis status post failed renal transplant, PFO, granulomatosis with polyangiitis, and recent LEFT-sided MCA stroke status post unsuccessful thrombectomy with residual RIGHT-sided hemiparesis and expressive aphasia who had been at [facility] until 03/17 when the patient had presented with an ileus and hypotension. He initially was brought to the ICU for evaluation and management with surgery managing the patient's ileus. He had rebounded and was subsequently downgraded from the ICU with conservative management including NG tube placement. His NG tube was replaced previously and then eventually discontinued yesterday. Unfortunately, the patient started with possible hemoptysis last evening at 10 PM. He was evaluated by the overnight physician and placed on a Protonix infusion. Seen by general surgery and gastroenterology today. Initial concerns for either upper GI bleed versus epistaxis. Patient's blood pressures were soft on the floor and he is scheduled to undergo hemodialysis today. Because of this, the patient was transferred to the ICU for ongoing evaluation and management and likely need for pressors to get the patient through hemodialysis. Upon evaluation in room 450, the patient is awake and alert. He communicates with yes and no answers secondary to his aphasia. He does not complain of pain. Review of Systems Review of Systems: Limited secondary to the patient's communicative abilities. Physical Exam Physical Exam: VITAL SIGNS - Vital signs and nursing notes were reviewed. GENERAL - 44-year-old male appearing his stated age who is in no acute distress. EYES - PERRL with EOMI bilaterally. Sclera anicteric. Palpebral conjunctiva pink and moist with no injection noted. NOSE - Midline and without cyanosis. Examination of the anterior nose demonstrates no active bleeding or stigmata of prior bleeding sites. MOUTH/OROPHARYNX - Without perioral cyanosis. Dried blood noted in the patient's mouth. Additionally, there is a large clot sitting in the back of the patient's throat. There is no active posterior bleeding at this time. NECK - Neck with FROM. LUNGS - Chest wall symmetric without accessory muscle use, intercostals retractions, or central cyanosis. Normal vesicular breath sounds CTA B/L. No wheezes, rales, or rhonchi appreciated. CARDIAC - RRR with S1/S2. No murmur, rubs, or gallops appreciated. ABDOMEN - Abdominal contour obese without pulsations or visible masses. BS normoactive all four quadrants. No tenderness, palpable masses, hepatosplenomegaly, or ascites noted. EXTREMITIES -RIGHT-sided hemiplegia LEFT upper extremity fistula. Palpable thrill appreciated. Neuro -expressive aphasia. Able to answer yes/no questions by nodding his head. Hemiplegia as above. Results & Data Results & Data Vital Signs (Past 12 Hours) Vital Signs Temp Pulse Pulse Pulse Resp BP Pulse Ox 03/25/24 11:58 116 H 19 99 03/25/24 11:23 121 H 97/65 L 03/25/24 10:51 125 H 84/52 L 03/25/24 09:23 120 H 20 95/61 L 03/25/24 08:38 121 H 109/73 03/25/24 07:15 03/25/24 07:00 121 H 121 H 20 113/74 92 03/25/24 03:50 37.4 C 115 H 22 106/73 96 O2 Del Method 03/25/24 11:58 Room Air 03/25/24 11:23 03/25/24 10:51 03/25/24 09:23 03/25/24 08:38 03/25/24 07:15 Room Air 03/25/24 07:00 Room Air 03/25/24 03:50 Room Air Coding Level of Care Code 04661 CRITICAL CARE 1ST 30-74M Diagnoses Ileus K56.7 Hypotension due to hypovolemia E86.1 Hypotension type: hypotension due to hypovolemia Anemia in ESRD (end-stage renal disease) N18.6; D63.1 ESRD on peritoneal dialysis N18.6; Z99.2 Acute blood loss anemia D62 (2) Hypotension Hypotension type: hypotension due to hypovolemia Qualified Code(s): E86.1 - Hypovolemia
[2024-03-25] MEDS ORDERED: STAT IV Infusion **Titration per Protocol STA ×5 (14:16→23:29)
[2024-03-25] MEDS ORDERED: dilTIAZem HCL 125 MG in DEXTROSE 5% 100 ML IV SCH (15:15)
--- NOTE | 2024-03-25 15:37 | XRay Report ---
SINGLE VIEW CHEST CLINICAL HISTORY: Anuria. Aphasia. FINDINGS: 3 AP, portable, semierect chest radiographs are compared to study dated 03/21/2024. Correlat ion is made with abdominal CT dated 03/17/2024. A right internal jugular central venous catheter is unc hanged in position. The heart is top normal for projection. The pulmonary vasculature is noncongested . There are low lung volumes and bibasilar atelectasis. No airspace consolidation or large pleural ef fusion is identified. No pneumothorax is seen. The bony thorax is grossly intact. IMPRESSION: Low lung volumes with no active disease in the chest. ACT 112: Negative or not required by law. Electronically signed by: Ervin Andersen M.D. 03/25/2024 3:36 PM
[2024-03-25] MEDS ORDERED: SODIUM CHLORIDE 0.9% 250 ML IV PRN (15:51)
[2024-03-25] MEDS: dilTIAZem HCl 5 MG/ML 5 ML VIAL IV STA (15:57)
[2024-03-25 15:58] LABS: Hematocrit (blood only) 21.6 % (42.0-52.0)
[2024-03-25] MEDS: OXYMETAZOLINE 0.05% 30 ML BTL ONE (16:20)
[2024-03-25] MEDS: DESMOPRESSIN ACETATE 34 MCG in SODIUM CHLORIDE 0.9% 50 ML IV ONE (16:45)
[2024-03-25] MEDS: NOREPINEPHRINE/D5W 4 MG/250 ML PLCT IV SCH (16:48)
[2024-03-25] MEDS: EPOETIN ALFA 10,000 UNITS/ML VIAL IV ONE (17:06)
--- NOTE | 2024-03-25 17:06 | Hospitalist Progress Note ---
Date of Service March 25, 2024 Assessment & Plan (1) Ileus: (2) Hypotension: (3) Aphasia, post-stroke: (4) ESRD on peritoneal dialysis: (5) Acute ischemic left MCA stroke: (6) Essential hypertension: Plan Mr. 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 As per prior provider Patient's course since admission complicated by hypotension requiring pressor support, as well as acute on chronic anemia requiring blood product this am. Responsive to transfusion, hgb 8.7 s/p units. Acute blood loss anemia Hematemesis Upper GI bleed Vs epistaxis s/p PRBCs Recent EGD showed gastritis Started on Protonix drip Monitor H&H and transfuse as needed Gastroenterology consulted Consider ENT evaluation if needed Eliquis on hold Possible Sepsis v SIRS Unclear source: Possible bacteremia, Pulmonary Source Chronic immunosuppression on cyclosporine --CXR:No acute chest disease. --CT ABD:Numerous dilated loops of large and small bowel without a firm transition point. Findings may represent ileus versus partial obstruction. There may be a focus of adhesions in the right lower quadrant. --Blood Cx:as below -- Transiently in ICU requiring pressors --Recently completed zosyn course 03/16 for aspiration PNA Continue IV Zosyn and Dapto Elevated procalcitonin Was also started on midodrine Gentle IV fluids as needed TTE study limited for assessment of endocarditis. Consulted infectious disease--advises to discontinue antibiotics and monitor Abnormal blood cultures Blood culture / coagulase-negative staph Repeat blood cultures: Negative to date Empirically on daptomycin, Zosyn ID consulted Ileus Vs P.SBO Recent UGIB 2/2 gastritis --CT ABD as above Continue bowel rest, NG tube, gentle IV fluids Appreciate surgery input On PPI for gastritis NG tube output minimal + Flatus NG discontinued Surgery following Acute on chronic anemia Anemia likely multifactorial Received EPO 62352 IU sc once a week previously however held 2/2 recent stroke Monitor CBC ESRD on PD History of GPA s/p failed kidney transplant- on low-dose cyclosporin. Recent admission c/b hypotension, required CRRT and IHD PD catheter still in place Hold cinacalcet 60 mg daily via NG. Hold Cyclosporine 50 mg daily. Continue to avoid nephrotoxic drugs Appreciate nephrology input Monitor volume status Continue dialysis per nephrology Appreciate critical care team Needs pressors for dialysis given low BP Recent L MCA stroke c/b aphasia, right hemiparesis Calcified Mitral calcification, suspect cardioembolic Small PFO ROPE score noted to be 5, planned for OP cards follow up ALICIA completed showing PFO, atrial septal aneurysm, and calcified nodule on P2 of mitral valve Discharged from [facility] on eliquis and Lipitor On statin Eliquis on hold due to bleeding issues DM II HbA1c 4.9 Monitor BGs DVT Px: SCDs for now CODE STATUS Full code Admission and Anticipated Discharge Date Admission Date: March 17, 2024 Subjective Patient is seen and examined at bedside Patient developed hemoptysis/epistaxis this morning Patient denied any abdominal pain, chest pain, dyspnea He admitted to have nausea this morning Discussed with ICU team Blood pressure was noted to be low requiring IV fluids Patient transferred to ICU for pressors Plan for hemodialysis while in ICU Updated patient's family over the phone Noted drop in hemoglobin Review of Systems Review of Systems: All systems reviewed & are unremarkable except as noted in Subjective Physical Exam Physical Exam: Physical Exam: Vitals signs as noted above General Appearance:Obese, no apparent distress Head: normocephalic, Atraumatic Eyes: normal inspection, EOMI Neck: supple, Trachea midline Respiratory/Chest: Normal breath sounds, CTA, No accessory muscle use Cardiovascular: S1, S2, No murmur Abdomen/GI:Soft, Non tender, distended, No audible Bowel sounds Extremities/Musculoskeletal:normal inspection, no edema Neurologic/Psych:AAOX3, + expressive aphasia, Right sided weakness Skin: normal color, warm Results & Data Results & Data Vital Signs (Past 12 Hours) Vital Signs Temp Pulse Pulse Pulse Resp BP BP 03/25/24 16:45 117 H 79/51 L 03/25/24 16:30 36.9 C 118 H 91/59 L 03/25/24 16:15 122 H 91/59 L 03/25/24 16:06 37 C 126 H 20 107/74 03/25/24 16:00 37.1 C 120 H 107/74 03/25/24 15:55 119 H 120/73 03/25/24 15:49 95/63 L 03/25/24 15:48 121 H 28 H 03/25/24 15:00 118 H 29 H 03/25/24 14:27 120 H 25 H 03/25/24 14:00 110/65 03/25/24 13:45 112 H 16 03/25/24 13:30 117 H 23 03/25/24 13:28 107/65 03/25/24 13:15 119/70 03/25/24 13:12 120 H 17 03/25/24 13:03 117 H 21 03/25/24 13:01 85/64 L 03/25/24 13:00 03/25/24 13:00 117 H 03/25/24 13:00 37 C 03/25/24 11:58 116 H 19 03/25/24 11:23 121 H 97/65 L 03/25/24 10:51 125 H 84/52 L 03/25/24 09:23 120 H 20 95/61 L 03/25/24 08:38 121 H 109/73 03/25/24 07:15 03/25/24 07:00 121 H 121 H 20 113/74 Pulse Ox O2 Del Method O2 Flow Rate 03/25/24 16:45 03/25/24 16:30 03/25/24 16:15 03/25/24 16:06 100 2 03/25/24 16:00 03/25/24 15:55 03/25/24 15:49 03/25/24 15:48 98 03/25/24 15:00 87 L Nasal Cannula 2 03/25/24 14:27 96 03/25/24 14:00 03/25/24 13:45 90 03/25/24 13:30 96 Room Air 03/25/24 13:28 03/25/24 13:15 03/25/24 13:12 94 03/25/24 13:03 94 03/25/24 13:01 03/25/24 13:00 Room Air 03/25/24 13:00 03/25/24 13:00 03/25/24 11:58 99 Room Air 03/25/24 11:23 03/25/24 10:51 03/25/24 09:23 03/25/24 08:38 03/25/24 07:15 Room Air 03/25/24 07:00 92 Room Air Laboratory Results Short CBC 03/24/24 03/25/24 03/25/24 Range/Units 23:08 08:15 11:04 WBC 7.01 (4.8-10.8) K/ul Hgb 7.7 L 8.1 L Cancelled (14.0-18.0) g/dl Hct 24.2 L 25.1 L Cancelled (42.0-52.0) % Plt Count 157 (130-400) K/uL 03/25/24 03/25/24 Range/Units 12:22 15:20 WBC (4.8-10.8) K/ul Hgb 7.4 L 7.0 L (14.0-18.0) g/dl Hct 23.5 L 21.6 L (42.0-52.0) % Plt Count (130-400) K/uL BMP 03/25/24 08:15 Sodium 140 Potassium 4.5 Chloride 98 Carbon Dioxide 18 L BUN 82 H D Creatinine 12.91 H* D Glucose 108 H Calcium 9.4 (2) Hypotension Hypotension type: hypotension due to hypovolemia Qualified Code(s): E86.1 - Hypovolemia
[2024-03-25] MEDS ORDERED: PROPOFOL IV EMULSION 10 MG/ML 20 ML VIAL IV ONE ×2 (17:22→18:53)
[2024-03-25] MEDS ORDERED: LIDOCAINE 2% 2 ML VIAL/AMP(20MG/ML) INFIL ONE (17:22)
[2024-03-25] MEDS ORDERED: ROCURONIUM BROMIDE 10 MG/ML 5 ML VIAL IV ONE (17:22)
[2024-03-25] MEDS ORDERED: ONDANSETRON INJ 2 MG/ML 2 ML VIAL ONE (17:22)
[2024-03-25] MEDS ORDERED: fentaNYL citrate PF 100 MCG/2 ML VIAL ONE (17:22)
--- NOTE | 2024-03-25 17:41 | Anesthesiology Consultation ---
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 Patient being transfused in ICU. Curretly received protonix gtt, DDAVP, and on norepi @ 0.05. Plan GA with ETT, a-line in event of deterioration. ASA4E History Surgery Operation Date: 03/25/24 17:25 Proposed Procedures p Esophagogastroduodenoscopy - Yassine Calixto MD Height/Weight Height: 5 ft 9 in Weight: 112.3 kg Allergies Allergy/AdvReac Type Severity Reaction Status Date / Time No Known Allergies Allergy Verified 03/17/24 11:47 Medications Home Medications Medication Instructions Recorded Confirmed Last Taken apixaban 5 mg tablet (Eliquis) 5 mg PO BID 03/17/24 03/17/24 03/16/24 atorvastatin 40 mg tablet 40 mg PO HS 03/17/24 03/17/24 03/16/24 calcium acetate(phosphat bind) 667 2,001 mg PO UD 03/17/24 03/17/24 03/16/24 mg capsule cinacalcet 30 mg tablet 60 mg PO QPM 03/17/24 03/17/24 03/16/24 cyclosporine modified 25 mg capsule 50 mg PO BID 03/17/24 03/17/24 03/16/24 febuxostat 80 mg tablet 80 mg PO QAM 03/17/24 03/17/24 03/16/24 ferric citrate 210 mg iron tablet 210 mg PO AC 03/17/24 03/17/24 03/16/24 (Auryxia) metoprolol succinate 100 mg 100 mg PO QAM 03/17/24 03/17/24 03/16/24 tablet,extended release 24 hr omeprazole 20 mg capsule,delayed 20 mg PO BID 07/07/24 07/07/24 07/06/24 release vitamin B complex and vitamin C 1 cap PO DAILY 03/17/24 03/17/24 03/16/24 no.20-folic acid 1 mg capsule Active Medications Generic Name Dose Route Start Last Admin Trade Name Lita PRN Reason Stop Dose Admin Heparin Sodium (Porcine) 7,500 units 03/18/24 14:00 03/24/24 21:17 Heparin Sod 5,000 Unit/0.5 Ml Vial SQ 04/17/24 13:59 7,500 units Q8 HANSA Administration Piperacillin Sod/Tazobactam 100 mls @ 25 mls/hr 03/21/24 03:00 03/25/24 15:54 Sod 4.5 gm/ Dextrose IV 03/28/24 02:59 Not Given Q12H HANSA Protocol Daptomycin 525 mg/ Syringe 10.5 mls @ 5.25 mls/min 03/22/24 01:00 03/24/24 01:47 IV 04/05/24 00:59 5.25 mls/min Q48H HANSA Administration Protocol Pantoprazole Sodium 40 mg/ 100 mls @ 20 mls/hr 03/24/24 23:00 03/25/24 17:37 Dextrose IV 04/23/24 22:59 8 mg/hr Q5H HANSA 20 mls/hr Administration 8 MG/HR Sodium Chloride 1,000 mls @ 60 mls/hr 03/25/24 08:15 03/25/24 08:10 Nss IV 04/24/24 08:14 60 mls/hr .[id number] HANSA Administration Norepinephrine Bitartrate 4 mg in 250 mls @ 21.056 mls/hr 03/25/24 14:30 03/25/24 17:36 Levophed/D5w IV 04/24/24 14:29 0.07 mcg/kg/min .[id number] HANSA 29.5 mls/hr Titration Protocol 0.05 MCG/KG/MIN Midodrine 5 mg 03/17/24 17:00 03/24/24 17:34 Midodrine Hcl 2.5 Mg Tab PO 04/16/24 16:59 Not Given TID@0800,1200,1700 HANSA Ondansetron HCl 4 mg 03/17/24 14:04 03/20/24 12:13 Ondansetron Inj 2 Mg/Ml 2 Ml Vial IV 04/16/24 14:03 4 mg Q6H PRN Administration Nausea NPO Date Last Intake of Fluids: 03/24/24 Date Last Intake of Solids: 03/24/24 Past Medical History Medical History Legionnaires' disease Diastolic congestive heart failure Failed kidney transplant Gouty arthropathy Granulomatosis with polyangiitis with renal involvement Exercise / Class Metabolic Activity III < 4 Walking/Shop/Light housework Past Family History Family History Other Cancer Diabetes Hypertension Past Surgical History Surgical History History of kidney transplant Past Anesthesia History No Hx of Anesthesia Complications and No Family Hx of Anesthesia Complications History of PONV No Hx of PONV and No Hx of Motion Sickness Social History Smoking Status: Never smoker Hx Alcohol Use: No Hx Substance Use: No Review of Systems ROS Unobtainable: All systems reviewed & are unremarkable except as noted in HPI & below Physical Exam Vital Signs Last Vital Signs Temp 37.3 C 03/25/24 17:12 Pulse 124 H 03/25/24 17:24 Resp 20 03/25/24 17:24 BP 73/54 L 03/25/24 17:34 Pulse Ox 90 03/25/24 17:24 O2 Del Method Nasal Cannula 03/25/24 15:00 O2 Flow Rate 2 03/25/24 17:12 ENMT Mouth: no TMJ abnormality Thyromental Distance: > or= 3.5 Finger Breadths Mallampati Class: II Neck normal visual inspection and trachea midline; neck extension not limited Respiratory normal respiratory effort Auscultation: lungs clear to auscultation bilaterally Cardiovascular Rate/Rhythm: regular rate and regular rhythm Heart Sounds: no murmur Musculoskeletal Spine: normal cervical ROM Extremities: full ROM of extremities Neurologic moves all extremities Psychiatric Orientation: alert and oriented x 3 unilteral hemiparasesis and aphasia 2/2 recent CVA Testing Laboratory Results 03/25/24 15:20 03/25/24 08:15 PT 12.2 Seconds (9.0-12.0) H 03/25/24 08:15 INR 1.1 (0.9-1.1) 03/25/24 08:15 APTT 33 Seconds (21-31) H 03/17/24 09:55 Hemoglobin A1c 4.9 % (4.5-5.6) 03/21/24 08:40 Blood Type O Positive 03/24/24 23:08 Antibody Screen NEGATIVE 03/24/24 23:08 03/23/24 05:22 Aerobic Blood Culture - Preliminary Blood No growth in Aerobic bottle after 48 hours. Anaerobic Blood Culture - Preliminary No growth in Anaerobic bottle after 48 hours. 03/23/24 05:26 Aerobic Blood Culture - Preliminary Blood No growth in Aerobic bottle after 48 hours. Anaerobic Blood Culture - Preliminary No growth in Anaerobic bottle after 48 hours. 03/20/24 18:55 Aerobic Blood Culture - Preliminary Blood Coag neg staph not lugdunensis Anaerobic Blood Culture - Final 03/17/24 16:40 Aerobic Blood Culture - Final Blood No growth in Aerobic bottle after 5 days. Anaerobic Blood Culture - Final No growth in Anaerobic bottle after 5 days. 03/17/24 21:29 Aerobic Blood Culture - Final Blood No growth in Aerobic bottle after 5 days. Anaerobic Blood Culture - Final No growth in Anaerobic bottle after 5 days. 03/20/24 18:44 Aerobic Blood Culture - Preliminary Blood No growth in Aerobic bottle after 48 hours. Anaerobic Blood Culture - Preliminary No growth in Anaerobic bottle after 48 hours. Electrocardiogram Date: 03/20/24 Sinus tachycardia Possible Left atrial enlargement Borderline ECG When compared with ECG of 18-MAR-2024 05:41, No significant change was found Confirmed by Arnold Nicholson ([id number]) on 03/21/2024 1:30:34 PM Echocardiogram Date: 03/24/24 EF: 60-65 LV Function: normal
--- NOTE | 2024-03-25 18:01 | Communication Note ---
Date of Service: March 25, 2024 Patient being transferred from ICU to OR for EGD
--- NOTE | 2024-03-25 18:38 | Oral/Maxillofacial Consult ---
Date of Consultation March 25, 2024 History of Present Illness Attending Physician: Moshe Sharp MD History of Present Illness I was asked to see Mr. Donato in room E 108 to evaluate for nasal bleeding and retained large clots in the nasopharyngeal area. Presently there is no active nasal bleeding. A direct nasoscope shows a well formed small dried clot in the left nasal mucosa, the right is clear. There is no active bleeding sites on the septum or posterior. I used saline spray and was able to discharge a few small retained clots from the nose. Evaluation of the throat and posterior nasal aperture did not show any retained clots. Chandan recently had a breathing treatment and I was told that upon completion of the therapy a large clot was dislodges. Nevertheless there is no active bleeding sites, no retained clots and no indication for nasal packing. I will be available as needed should bleeding re occur. . Allergies Allergy/AdvReac Type Severity Reaction Status Date / Time No Known Allergies Allergy Verified 03/17/24 11:47 Home Medications Medication Instructions Recorded Confirmed Type apixaban 5 mg tablet (Eliquis) 5 mg PO BID 03/17/24 03/17/24 History atorvastatin 40 mg tablet 40 mg PO HS 03/17/24 03/17/24 History calcium acetate(phosphat bind) 667 2,001 mg PO UD 03/17/24 03/17/24 History mg capsule cinacalcet 30 mg tablet 60 mg PO QPM 03/17/24 03/17/24 History cyclosporine modified 25 mg capsule 50 mg PO BID 03/17/24 03/17/24 History febuxostat 80 mg tablet 80 mg PO QAM 03/17/24 03/17/24 History ferric citrate 210 mg iron tablet 210 mg PO AC 03/17/24 03/17/24 History (Auryxia) metoprolol succinate 100 mg 100 mg PO QAM 03/17/24 03/17/24 History tablet,extended release 24 hr omeprazole 20 mg capsule,delayed 20 mg PO BID 03/17/24 03/17/24 History release vitamin B complex and vitamin C 1 cap PO DAILY 03/17/24 03/17/24 History no.20-folic acid 1 mg capsule Patient History Medical History Legionnaires' disease Diastolic congestive heart failure Failed kidney transplant Gouty arthropathy Granulomatosis with polyangiitis with renal involvement Surgical History History of kidney transplant Family History Other Cancer Diabetes Hypertension Social History Smoking Status: Never smoker Hx Alcohol Use: No Hx Substance Use: No Preferred Language: Palauan Communication Ability: Unable 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 Beliefs That Will Affect Care: None Feels Safe at Home: Yes Assistive Devices: Walker Results & Data Vital Signs (Past 12 Hours) Vital Signs Temp Pulse Pulse Pulse Resp BP BP 03/25/24 17:34 73/54 L 03/25/24 17:24 124 H 20 03/25/24 17:12 37.3 C 110 H 20 91/67 L 03/25/24 17:06 110 H 21 03/25/24 17:04 37.3 C 109 H 20 91/67 L 03/25/24 17:00 91/67 L 03/25/24 17:00 91/67 L 03/25/24 16:45 79/51 L 03/25/24 16:45 117 H 79/51 L 03/25/24 16:36 116 H 25 H 03/25/24 16:30 36.9 C 118 H 91/59 L 03/25/24 16:15 122 H 91/59 L 03/25/24 16:06 122 H 19 03/25/24 16:06 37 C 126 H 20 107/74 03/25/24 16:00 116 H 03/25/24 16:00 107/74 03/25/24 16:00 37.1 C 120 H 107/74 03/25/24 15:55 120/73 03/25/24 15:55 119 H 120/73 03/25/24 15:51 120 H 21 03/25/24 15:49 95/63 L 03/25/24 15:49 95/63 L 03/25/24 15:48 121 H 28 H 03/25/24 15:00 118 H 29 H 03/25/24 14:27 120 H 25 H 03/25/24 14:00 110/65 03/25/24 13:45 112 H 16 03/25/24 13:30 117 H 23 03/25/24 13:28 107/65 03/25/24 13:15 119/70 03/25/24 13:12 120 H 17 03/25/24 13:03 117 H 21 03/25/24 13:01 85/64 L 03/25/24 13:00 03/25/24 13:00 117 H 03/25/24 13:00 37 C 03/25/24 11:58 116 H 19 03/25/24 11:23 121 H 97/65 L 03/25/24 10:51 125 H 84/52 L 03/25/24 09:23 120 H 20 95/61 L 03/25/24 08:38 121 H 109/73 03/25/24 07:15 03/25/24 07:00 121 H 121 H 20 113/74 Pulse Ox O2 Del Method O2 Flow Rate 03/25/24 17:34 03/25/24 17:24 90 03/25/24 17:12 100 2 03/25/24 17:06 100 03/25/24 17:04 100 2 03/25/24 17:00 03/25/24 17:00 03/25/24 16:45 03/25/24 16:45 03/25/24 16:36 100 03/25/24 16:30 03/25/24 16:15 03/25/24 16:06 100 03/25/24 16:06 100 2 03/25/24 16:00 03/25/24 16:00 03/25/24 16:00 03/25/24 15:55 03/25/24 15:55 03/25/24 15:51 99 03/25/24 15:49 03/25/24 15:49 03/25/24 15:48 98 03/25/24 15:00 87 L Nasal Cannula 2 03/25/24 14:27 96 03/25/24 14:00 03/25/24 13:45 90 03/25/24 13:30 96 Room Air 03/25/24 13:28 03/25/24 13:15 03/25/24 13:12 94 03/25/24 13:03 94 03/25/24 13:01 03/25/24 13:00 Room Air 03/25/24 13:00 03/25/24 13:00 03/25/24 11:58 99 Room Air 03/25/24 11:23 03/25/24 10:51 03/25/24 09:23 03/25/24 08:38 03/25/24 07:15 Room Air 03/25/24 07:00 92 Room Air PG Care Time/CCT Total # of Minutes Spent Total Time Spent with Patient: Total time spent is greater than 50% in coordination of care (as documented) at patient's floor/unit and/or counseling patient: Coding Level of Care Code 22215 IN/OBS CONSULT LVL 2,35M
[2024-03-25] MEDS ORDERED: PHENYLEPHRINE 100MCG/ML 10ML SYR IV ONE (18:53)
--- NOTE | 2024-03-25 19:31 | GI REPORT ---
[facility] Patient: MARIZOL ADEN : 1980 Sex at : Male Age: 44 Years Procedure: Upper GI endoscopy Date: 03/25/2024 Attending Physician: Yassine Calixto MD Referring MD: Moshe Sharp Md Indications: - Hematemesis Medications: - General Anesthesia - See the Anesthesia note for documentation of the administered medications Complications: - No immediate complications. Estimated Blood Loss: - Estimated blood loss was minimal. Procedure: - The egd scope was introduced through the mouth and advanced to the second part of the duodenum. - The upper GI endoscopy was performed with difficulty due to excessive bleeding. Successful completion of the procedure was aided by lavage. - The patient tolerated the procedure. Findings: - Hematin (altered blood/gnthxo-zziyei-mmts material) was found in the lower third of the esophagus. Lavage of the area was performed using a small amount, resulting in clearance with excellent visualization. The esophagus appeared grossly normal. - Clotted blood along with maroon blood was found in the gastric fundus primarily but also some in the rest of the stomach. . Lavage of the area was performed using a large amount, resulting in clearance with excellent visualization. Diffuse hemorrhagic gastritis possible somewhat ischemic with no active bleeding but platelet plugs noted. . Epinephrine bath/lavage was placed in the gastric cardia. The platelet plugs seemed to contract. There was no active bleeding (but recent blood) seen throughout the exam. - The examined duodenum was normal. Impression: - Hematin (altered blood/erbzsn-qhugve-wjvf material) in the lower third of the esophagus. - Clotted blood in the gastric fundus. - Diffuse hemorrhagic gastritis. Epinephrine bath/lavage - Normal examined duodenum. - No specimens collected. Recommendation: - Observe in ICU. Surgical consult. Repeat EGD in AM Continue PPI If he bleeds significantly again - this seems too diffuse and large an area to effectively treat endoscopically. The proximal pathology would seem to preclude IR evaluation and surgery if needed my be extensive - possibly even total gastrectomy. Prognosis guarded at best. Discussed above with family and ICU staff. Procedure Code(s): - 00041, Esophagogastroduodenoscopy, flexible, transoral; diagnostic, including collection of specimen(s) by brushing or washing, when performed (separate procedure) Diagnosis Code(s): - K22.89, Other specified disease of esophagus - K92.2, Gastrointestinal hemorrhage, unspecified CPT(R) - 2023 copyright [employer]. All Rights Reserved. The CPT codes, CCI edits and ICD codes generated are intended as suggestions and were generated based on input data. These codes are preliminary and upon chief of staff doctor review may be revised to meet current compliance and payer requirements. The provider is responsible for the final determination of appropriate codes, and modifiers. Yassine Calixto MD This document has been electronically signed. Note Initiated:03/25/2024 Note Completed:03/25/2024 7:30 PM \\[email or web address]\[email or web address]\[id number]
--- NOTE | 2024-03-25 19:31 | Anesthesiology Progress Note ---
Date of Service March 25, 2024 Anesthesia Post Procedure Vital Signs Vital Signs: Temp Pulse Pulse Pulse Pulse Resp BP 03/25/24 19:25 125 H 18 03/25/24 19:15 37 C 118 H 18 03/25/24 18:15 37.1 C 118 H 03/25/24 17:45 37.1 C 115 H 106/64 03/25/24 17:34 73/54 L 03/25/24 17:30 37.0 C 118 H 73/54 L 03/25/24 17:24 124 H 20 03/25/24 17:15 114 H 100/68 03/25/24 17:12 37.3 C 110 H 20 91/67 L 03/25/24 17:06 110 H 21 03/25/24 17:04 37.3 C 109 H 20 91/67 L 03/25/24 17:00 37.3 C 115 H 91/67 L 03/25/24 17:00 91/67 L 03/25/24 17:00 91/67 L 03/25/24 16:45 79/51 L 03/25/24 16:45 117 H 79/51 L 03/25/24 16:36 116 H 25 H 03/25/24 16:30 36.9 C 118 H 91/59 L 03/25/24 16:15 122 H 91/59 L 03/25/24 16:06 122 H 19 03/25/24 16:06 37 C 126 H 20 107/74 03/25/24 16:00 116 H 03/25/24 16:00 107/74 03/25/24 16:00 37.1 C 120 H 107/74 03/25/24 15:55 120/73 03/25/24 15:55 119 H 120/73 03/25/24 15:51 120 H 21 03/25/24 15:49 37.0 C 118 H 03/25/24 15:49 95/63 L 03/25/24 15:49 95/63 L 03/25/24 15:48 121 H 28 H 03/25/24 15:00 118 H 29 H 03/25/24 14:27 120 H 25 H 03/25/24 14:00 110/65 03/25/24 13:45 112 H 16 03/25/24 13:30 117 H 23 03/25/24 13:28 107/65 03/25/24 13:15 119/70 03/25/24 13:12 120 H 17 03/25/24 13:03 117 H 21 03/25/24 13:01 85/64 L 03/25/24 13:00 03/25/24 13:00 117 H 03/25/24 13:00 37 C 03/25/24 11:58 116 H 19 03/25/24 11:23 121 H 03/25/24 10:51 125 H 03/25/24 09:23 120 H 20 03/25/24 08:38 121 H 03/25/24 07:15 03/25/24 07:00 121 H 121 H 20 03/25/24 03:50 37.4 C 115 H 22 03/25/24 00:46 107 H 22 03/24/24 23:30 105 H 03/24/24 23:29 37.4 C 110 H 22 03/24/24 20:00 03/24/24 19:38 37.2 C 98 H 20 BP BP Pulse Ox O2 Del Method O2 Flow Rate FiO2 03/25/24 19:25 162/75 H 95 Mechanical Vent 40 03/25/24 19:15 154/68 H 93 Mechanical Vent 40 03/25/24 18:15 119/92 03/25/24 17:45 03/25/24 17:34 03/25/24 17:30 03/25/24 17:24 90 03/25/24 17:15 03/25/24 17:12 100 2 03/25/24 17:06 100 03/25/24 17:04 100 2 03/25/24 17:00 03/25/24 17:00 03/25/24 17:00 03/25/24 16:45 03/25/24 16:45 03/25/24 16:36 100 03/25/24 16:30 03/25/24 16:15 03/25/24 16:06 100 03/25/24 16:06 100 2 03/25/24 16:00 03/25/24 16:00 03/25/24 16:00 03/25/24 15:55 03/25/24 15:55 03/25/24 15:51 99 03/25/24 15:49 03/25/24 15:49 03/25/24 15:49 03/25/24 15:48 98 03/25/24 15:00 87 L Nasal Cannula 2 03/25/24 14:27 96 03/25/24 14:00 03/25/24 13:45 90 03/25/24 13:30 96 Room Air 03/25/24 13:28 03/25/24 13:15 03/25/24 13:12 94 03/25/24 13:03 94 03/25/24 13:01 03/25/24 13:00 Room Air 03/25/24 13:00 03/25/24 13:00 03/25/24 11:58 99 Room Air 03/25/24 11:23 97/65 L 03/25/24 10:51 84/52 L 03/25/24 09:23 95/61 L 03/25/24 08:38 109/73 03/25/24 07:15 Room Air 03/25/24 07:00 113/74 92 Room Air 03/25/24 03:50 106/73 96 Room Air 03/25/24 00:46 122/83 94 Room Air 03/24/24 23:30 03/24/24 23:29 116/77 93 Room Air 03/24/24 20:00 Room Air 03/24/24 19:38 127/79 94 Room Air Transfer of Care Handoff Completed per policy Notes Mental Status: alert / awake / arousable Patient Amnestic to Procedure: Yes Nausea / Vomiting: adequately controlled Pain: adequately controlled Airway Patency, RR, SpO2: stable & adequate BP & HR: stable & adequate Hydration State: stable & adequate Anesthetic Complications: no major complications apparent and Pt Satisfied with anesthetic care Notes: Patient kept intubated at end of procedure due to slow bleeding with plan to repeat procedure tomorrow. 2 u RBC administered intraop. Patient remained on norepi intraop and was weaned once transported to ICU. b/l breath sounds and HDS at hand off. Patient was not reversed at end of procedure to minimize bucking/bleeding. Please plan to reverse after anesthetic tomorrow.
[2024-03-25] MEDS ORDERED: PROPOFOL BOLUS FROM BAG IV PRN (19:39)
[2024-03-25 19:58] LABS: iSTAT Art Bld Gas pCO2 Correct 48 mmHg (35-46); iSTAT Art Bld Gas pH Corrected 7.219 (7.35-7.45); iSTAT Arterial Blood Gas HCO3 20 meg/L (19-24); iSTAT Arterial Blood Gas pCO2 48 mmHg (35-46); iSTAT Arterial Blood Gas pH 7.22 (7.35-7.45); iSTAT Arterial Blood Gas pO2 77 mmHg (80-95); iSTAT Arterial Blood Gas pO2 C 77; iSTAT Carbon Dioxide 21 mmol/L (24-31); iSTAT FiO2 60 %; iSTAT Hematocrit 30 % (42-52); iSTAT Hemoglobin 10.2 g/dl (14.0-18.0); iSTAT Potassium 3.2 mmol/L (3.3-5.0); iSTAT Site Art Line; iSTAT Sodium 137 mmol/L (135-144)
[2024-03-25] MEDS: PROPOFOL IV EMULSION 10 MG/ML 100 ML VIAL IV ONE (19:59)
[2024-03-25] MEDS: MIDAZOLAM HCL 5 MG/ML 2ML VIAL IV STA (20:00)
[2024-03-25] MEDS: MIDAZOLAM HCL 125 MG/250 ML BAG IV SCH (20:00)
[2024-03-25] MEDS: propofoL 1,000 MG/100 ML VIAL IV SCH (20:00)
[2024-03-25] MEDS: MIDAZOLAM HCL 5 MG/ML 2ML VIAL ONE (20:00)
[2024-03-25 20:24] LABS: BUN Creatinine Ratio 7.1 (10-20); Calcium 8.8 mg/dl (8.6-10.3); Creatinine Clr Calc Pharmacy 14.3 ml/min; Est GFR (African American) 8.3 ml/min; Est GFR (Non-African American) 7.2 ml/min; Phosphorus 6.8 mg/dl (2.5-4.9); Potassium 3.4 mmol/L (3.5-5.1)
[2024-03-25 20:25] LABS: Basophils # (auto) 0.08 K/uL (0.00-0.20); Basophils % (auto) 0.7 %; Eosinophils # (auto) 0.41 K/uL (0.00-0.50); Eosinophils % (auto) 3.6 %; Hematocrit (blood only) 32.8 % (42.0-52.0); Hemoglobin 10.5 g/dl (14.0-18.0); Immature Granulocytes # (auto) 0.28 K/uL (0.01-0.20); Immature Granulocytes % (auto) 2.5 %; Lymphocytes # (auto) 2.64 K/uL (1.20-3.40); Lymphocytes % (auto) 23.2 %; Mean Corpuscular Hemoglobin 28.9 pg (25.0-34.0); Mean Corpuscular Volume 90.4 fL (80.0-100.0); Monocytes % (auto) 11.4 %; Neutrophils # (auto) 6.67 K/uL (1.40-6.50); Neutrophils % (auto) 58.6 %; Nucleated RBC # (auto) 0.02 K/uL (0.00-0.12); Nucleated RBC % (auto) 0.2 %; Platelet Count 162 K/uL (130-400); RDW Coefficient of Variation 15.7 % (11.5-14.5); RDW Standard Deviation 51.1 fL (36.4-46.3); Red Blood Count 3.63 M/uL (4.70-6.10); White Blood Count 11.38 K/ul (4.8-10.8)
[2024-03-25] MEDS: fentaNYL citrate 2,500 MCG/250 ML BAG IV SCH (20:55)
[2024-03-25] MEDS: ACETAMINOPHEN 1,000 MG/100 ML VIAL IV PRN (21:16)
[2024-03-25 21:24] LABS: Fibrinogen 504 mg/dl (184-400); INR 1.2 (0.9-1.1); Prothrombin Time 12.7 Seconds (9.0-12.0)
--- NOTE | 2024-03-25 23:14 | Procedure Note ---
Procedure Note Date of Service March 25, 2024 Note FEMORAL CENTRAL LINE PROCEDURE NOTE: Procedure: Femoral Central Line Placement Attending: Dr. Mcallister Provider: RERE Levy Indication: Central Drug Administration, Poor Venous Access, Anesthesia: Lidocaine 1% []Consent was signed and placed on the chart prior to procedure. Indication, risks, and benefits were explained at length. A time-out was completed verifying correct patient, procedure, site, positioning, and implants(s) or special equipment if applicable. Patients right Groin was cleansed and draped in the typical sterile fashion using Chloraprep. The Femoral Vein and Femoral Artery were identified using ultrasound. The superficial tissue was anesthetized using 3 mL of 1% lidocaine without epinephrine under direct visualization with the ultrasound. After adequate anesthetization was achieved, the Femoral Vein was cannulated under direct ultrasound guidance using an introducer needle on a syringe. Good venous blood return was maintained prior to removal of syringe from introducer needle. Using Seldinger Technique, a guide wire was advanced through the introducer needle without resistance. The introducer needle was removed and ultrasound images were obtained of the guide wire within the Femoral Vein and saved to the patients medical record. A small incision was made in penetrating fashion at the guide wire insertion site utilizing an 11 blade scalpel. The dilator was advanced to the vessel without resistance. The dilator was exchanged for the triple lumen catheter which was advanced into the vessel without resistance. The guide wire was removed intact from the catheter without issue. Claves were placed on each catheter tip with confirmation of good blood flow from each lumen. Each port was easily flushed with sterile saline. The catheter was placed at the hub and sutured in place. BioPatch was applied to the catheter and a sterile Tegaderm dressing was applied over the catheter with careful attention to sterility. Patient tolerated procedure well. No immediate complications were met. Images obtained are saved for permanent record Procedural Ultrasound Guidance: Procedure Date: 03/25/2024 Indication: CVC Insertion Attending: Dr. Mcallister Provider: RERE Levy Artery AND Vein visualized: yes Compressible Vein: yes Guidewire or Short Catheter seen in vein prior to dilation: yes Line confirmed in Vein with ultrasound: yes Images obtained are saved for permanent record. Coding CPT Codes Tubes, Drains, and Vasc Access - Tubes, Drains, and Vasc Access: [id number] Insertion Of Non-tunneled Catheter Age 6 Yrs> ([id number]) Tubes, Drains, and Vasc Access - Tubes, Drains, and Vasc Access: [id number] Ultrasound Guidance For Vascular ([id number]) [facility] [place]Charges) Tubes, Drains, and Vasc Access Procedure 1: Tubes, Drains, and Vasc Access: [id number] Insertion Of Non-tunneled Catheter Age 6 Yrs> Procedure 2: Tubes, Drains, and Vasc Access: [id number] Ultrasound Guidance For Vascular
[2024-03-26] MEDS: fentaNYL BOLUS from BAG IV PRN
[2024-03-26] MEDS: MIDAZOLAM BOLUS FROM BAG IV PRN
[2024-03-26] MEDS: VASOPRESSIN 20 UNITS in 0.9 % SODIUM CHLORIDE 100 ML IV SCH (00:22)
[2024-03-26 01:19] LABS: Hematocrit (blood only) 29.9 % (42.0-52.0); Hemoglobin 9.7 g/dl (14.0-18.0)
[2024-03-26 04:13] LABS: iSTAT Art Bld Gas pCO2 Correct 36 mmHg (35-46); iSTAT Art Bld Gas pH Corrected 7.343 (7.35-7.45); iSTAT Arterial Blood Gas HCO3 19 meg/L (19-24); iSTAT Arterial Blood Gas pCO2 35 mmHg (35-46); iSTAT Arterial Blood Gas pH 7.36 (7.35-7.45); iSTAT Arterial Blood Gas pO2 103 mmHg (80-95); iSTAT Arterial Blood Gas pO2 C 109; iSTAT Carbon Dioxide 20 mmol/L (24-31); iSTAT FiO2 40 %; iSTAT Hematocrit 23 % (42-52); iSTAT Hemoglobin 7.8 g/dl (14.0-18.0); iSTAT Site Art Line; iSTAT Sodium 135 mmol/L (135-144)
[2024-03-26 04:58] LABS: Basophils # (auto) 0.05 K/uL (0.00-0.20); Basophils % (auto) 0.6 %; Eosinophils # (auto) 0.38 K/uL (0.00-0.50); Eosinophils % (auto) 4.7 %; Hematocrit (blood only) 24.5 % (42.0-52.0); Hemoglobin 8.2 g/dl (14.0-18.0); Immature Granulocytes # (auto) 0.15 K/uL (0.01-0.20); Immature Granulocytes % (auto) 1.8 %; Lymphocytes # (auto) 1.95 K/uL (1.20-3.40); Mean Corpuscular Hemoglobin 29.1 pg (25.0-34.0); Mean Corpuscular Hgb Conc 33.5 g/dL (32.0-36.0); Mean Corpuscular Volume 86.9 fL (80.0-100.0); Mean Platelet Volume 9.5 fL (9.4-12.4); Monocytes # (auto) 0.99 K/uL (0.11-0.59); Monocytes % (auto) 12.2 %; Neutrophils # (auto) 4.62 K/uL (1.40-6.50); Neutrophils % (auto) 56.7 %; Platelet Count 135 K/uL (130-400); RDW Standard Deviation 50.6 fL (36.4-46.3); Red Blood Count 2.82 M/uL (4.70-6.10); White Blood Count 8.14 K/ul (4.8-10.8)
[2024-03-26 05:22] LABS: Albumin Globulin Ratio 1.1 (0.9-2); Albumin Level 3.2 gm/dl (3.4-5.0); BUN Creatinine Ratio 6.7 (10-20); Bilirubin,Total 1.6 mg/dl (0.2-1.0); Calcium 8.3 mg/dl (8.6-10.3); Creatinine Clr Calc Pharmacy 12.6 ml/min; Est GFR (African American) 7.1 ml/min; Est GFR (Non-African American) 6.2 ml/min; Globulin 2.8 gm/dl (2.5-4.0); Phosphorus 7.3 mg/dl (2.5-4.9)
[2024-03-26] MEDS ORDERED: SODIUM CHLORIDE 0.9% 250 ML IV PRN ×2 (07:29→17:02)
--- NOTE | 2024-03-26 08:10 | Critical Care Progress Note ---
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 NEURO - * CAM ICU: Unobtainable. * Recent LEFT-sided MCA CVA with unsuccessful clot retrieval: * Residual RIGHT-sided hemiparesis and expressive aphasia. * Currently intubated and sedated for airway protection. CARDIAC/VASCULAR - * Hypotension: * Secondary to acute blood loss anemia and now sedation to promote ventilator synchrony * Monitor on telemetry. RESPIRATORY - * Minimal vent settings. GI/NUTRITION - * Concerns for upper GI bleeding: * Concern for ischemic gastritis. Will repeat EGD today per GI. May need total gastrectomy depending on findings which would require transfer to tertiary facility. * Prophylaxis: Protonix drip RENAL/LYTES - * End-stage renal disease on hemodialysis: * Continue per nephrology management. - * No concerns at this time. ENDO - * DMII * BSGs per unit protocol. ISS --> gtt per unit policy. HEME - * Anemia: * Concerns for acute blood loss anemia. Patient with ongoing significant blood loss. Will give additional unit of packed RBCs today. Patient has received total of 3 units of packed RBCs over the last 48 hours. * Hold anticoagulation for now. * Patient seen by maxillofacial surgery and GI. * Received nebulized TXA. Received Rhino Rocket's and Afrin nasal spray. ID - * Coagulase negative Staphylococcus bacteremia: * Had previously been on Zosyn. * Antibiotics discontinued today by infectious disease for likelihood of contamination. * Monitor cultures again for possibility of infected HD catheter. LINES/IV ACCESS - * PIVs x2 DVT PROPHYLAXIS - * Hold on anticoagulation in the setting of bleeding. * SCDs I have personally spent 47 minutes of critical care time in the direct management of this patient. This is a life/limb threatening event. This includes time spent evaluating patient, direct bedside care, chart review, placing orders, interpretation of diagnostic studies, discussion with consultants, patient, and family members, as well as other required patient management activities. This time is exclusive of all separately billable procedures, and teaching time and separate from and in addition to any other critical care service time. Thank you for all Admission and Anticipated Discharge Date Admission Date: March 17, 2024 Subjective Patient had nosebleed overnight and Rhino Rocket's placed. Currently intubated and sedated. Requiring Versed, fentanyl and low-dose of Levophed. Review of Systems Review of Systems: Unobtainable due to endotracheal tube and Unobtainable due to reduced consciousness Physical Exam Physical Exam: VITAL SIGNS - Vital signs and nursing notes were reviewed. GENERAL - 44-year-old male appearing his stated age who is in no acute distress. EYES - PERRL with EOMI bilaterally. Sclera anicteric. Palpebral conjunctiva pink and moist with no injection noted. NOSE - Midline and without cyanosis. Examination of the anterior nose demonstrates no active bleeding or stigmata of prior bleeding sites. MOUTH/OROPHARYNX - Without perioral cyanosis. Rhino Rocket is noted. Intubated. NECK - Neck with FROM. LUNGS - Chest wall symmetric without accessory muscle use, intercostals retractions, or central cyanosis. Normal vesicular breath sounds CTA B/L. No wheezes, rales, or rhonchi appreciated. CARDIAC - RRR with S1/S2. No murmur, rubs, or gallops appreciated. ABDOMEN - Abdominal contour obese without pulsations or visible masses. BS normoactive all four quadrants. No tenderness, palpable masses, hepatosplenomegaly, or ascites noted. EXTREMITIES -RIGHT-sided hemiplegia LEFT upper extremity fistula. Palpable thrill appreciated. Neuro -expressive aphasia. Able to answer yes/no questions by nodding his head. Hemiplegia as above. Results & Data Results & Data Vital Signs (Past 12 Hours) Vital Signs Temp Pulse Resp BP Pulse Ox O2 Del Method FiO2 03/26/24 07:18 37.4 C 91 H 24 99 Mechanical Vent 40 03/26/24 07:03 37.5 C 93 H 24 99 Mechanical Vent 40 03/26/24 06:09 37.7 C H 105 H 24 99 03/26/24 05:03 37.9 C H 89 24 99 03/26/24 04:15 38.0 C H 83 24 100 03/26/24 04:00 40 03/26/24 03:03 38.1 C H 84 24 100 03/26/24 02:19 87 24 99 40 03/26/24 02:00 38.2 C H 90 24 99 03/26/24 01:47 93 H 03/26/24 01:21 38.3 C H 96 H 24 98 03/26/24 00:09 38.2 C H 108 H 24 97 03/26/24 00:00 40 03/25/24 23:09 38.1 C H 89 24 100 03/25/24 22:45 148/82 H 03/25/24 22:42 38.2 C H 90 24 100 03/25/24 22:30 161/92 H 03/25/24 22:30 161/92 H 03/25/24 22:30 161/92 H 03/25/24 22:30 161/92 H 03/25/24 22:27 38.2 C H 95 H 24 100 03/25/24 22:18 38.3 C H 102 H 24 100 03/25/24 22:15 139/85 03/25/24 22:15 139/85 03/25/24 22:07 100 H 24 99 40 03/25/24 22:00 145/85 H 03/25/24 21:57 38.3 C H 102 H 24 99 03/25/24 21:45 38.4 C H 111 H 25 H 99 03/25/24 21:45 143/80 H 03/25/24 21:45 143/80 H 03/25/24 21:45 143/80 H 03/25/24 21:30 135/70 03/25/24 21:27 38.4 C H 121 H 27 H 97 03/25/24 21:15 38.3 C H 125 H 21 97 03/25/24 21:15 132/74 03/25/24 21:15 132/74 03/25/24 21:03 38.2 C H 124 H 24 98 03/25/24 21:00 164/102 H 03/25/24 21:00 164/102 H 03/25/24 21:00 164/102 H 03/25/24 20:51 38.1 C H 127 H 24 97 03/25/24 20:45 166/91 H 03/25/24 20:45 166/91 H 03/25/24 20:42 38.1 C H 123 H 22 100 03/25/24 20:30 38.0 C H 108 H 21 100 03/25/24 20:30 137/94 03/25/24 20:30 137/94 03/25/24 20:15 148/75 H 03/25/24 20:15 148/75 H 03/25/24 20:15 148/75 H 03/25/24 20:15 148/75 H 03/25/24 20:15 38.0 C H 112 H 21 100 Coding Level of Care Code 59205 CRITICAL CARE 1ST 30-74M Diagnoses Ileus K56.7 Hypotension due to hypovolemia E86.1 Hypotension type: hypotension due to hypovolemia Anemia in ESRD (end-stage renal disease) N18.6; D63.1 ESRD on peritoneal dialysis N18.6; Z99.2 Acute blood loss anemia D62 Time Spent (min) 47 (2) Hypotension Hypotension type: hypotension due to hypovolemia Qualified Code(s): E86.1 - Hypovolemia
--- NOTE | 2024-03-26 08:38 | Surgery Progress Note ---
Date of Service March 26, 2024 Assessment & Plan (1) Small bowel obstruction: Plan: last bm yesterday AM liquid brown loose Patient with bloody emesis yest. underwent EGD per nurse/ GI note planning EGD today If patient would need a gastrectomy transfer to a tertiary care center would be rec. Continue to hold blood thinners and monitor h/h (2) Hematemesis: Admission and Anticipated Discharge Date Admission Date: March 17, 2024 Supervising Physician Co-Signing Physician Notes Patient seen and examined, labs and imaging reviewed, agree with above. Surgery reconsulted for upper GI bleed. Endoscopy yesterday showed large amount of clot with diffuse gastritis. Repeat endoscopy today showed more clot and extremely friable and irritated mucosa with significant gastritis especially in the cardia. Per GI this would not be amenable to endoscopic intervention, and likely not amenable to IR intervention. Due to the extent of gastritis and his overall condition, if he were to require surgical intervention, this should be performed at a tertiary facility. Goals of care should be discussed with the patient, and it appears that palliative care has been consulted. Surgery will follow peripherally, call with questions or concerns. Subjective pt intubated Nurse reports BM yesterday Physical Exam Constitutional: comfortable Respiratory: on mechanical ventilator Cardiovascular: Rate/Rhythm: + tachycardic (91) Gastrointestinal (Abdomen): Percussion/Palpation: abdomen soft Results & Data Vital Signs (Past 12 Hours) Vital Signs Temp Pulse Resp BP Pulse Ox O2 Del Method FiO2 03/26/24 08:00 120/80 03/26/24 07:50 91 H 25 H 98 30 03/26/24 07:18 99.3 F 91 H 24 99 Mechanical Vent 40 03/26/24 07:03 99.5 F 93 H 24 99 Mechanical Vent 40 03/26/24 06:09 99.9 F H 105 H 24 99 03/26/24 05:03 100.2 F H 89 24 99 03/26/24 04:15 100.4 F H 83 24 100 03/26/24 04:00 40 03/26/24 03:03 100.6 F H 84 24 100 03/26/24 02:19 87 24 99 40 03/26/24 02:00 100.8 F H 90 24 99 03/26/24 01:47 93 H 03/26/24 01:21 100.9 F H 96 H 24 98 07/16/24 00:09 100.8 F H 108 H 24 97 03/26/24 00:00 40 03/25/24 23:09 100.6 F H 89 24 100 03/25/24 22:45 148/82 H 03/25/24 22:42 100.8 F H 90 24 100 03/25/24 22:30 161/92 H 03/25/24 22:30 161/92 H 03/25/24 22:30 161/92 H 03/25/24 22:30 161/92 H 03/25/24 22:27 100.8 F H 95 H 24 100 03/25/24 22:18 100.9 F H 102 H 24 100 03/25/24 22:15 139/85 03/25/24 22:15 139/85 03/25/24 22:07 100 H 24 99 40 03/25/24 22:00 145/85 H 03/25/24 21:57 100.9 F H 102 H 24 99 03/25/24 21:45 101.1 F H 111 H 25 H 99 03/25/24 21:45 143/80 H 03/25/24 21:45 143/80 H 03/25/24 21:45 143/80 H 03/25/24 21:30 135/70 03/25/24 21:27 101.1 F H 121 H 27 H 97 03/25/24 21:15 100.9 F H 125 H 21 97 03/25/24 21:15 132/74 03/25/24 21:15 132/74 03/25/24 21:03 100.8 F H 124 H 24 98 03/25/24 21:00 164/102 H 03/25/24 21:00 164/102 H 03/25/24 21:00 164/102 H 03/25/24 20:51 100.6 F H 127 H 24 97 03/25/24 20:45 166/91 H 03/25/24 20:45 166/91 H 03/25/24 20:42 100.6 F H 123 H 22 100 03/25/24 20:30 100.4 F H 108 H 21 100 03/25/24 20:30 137/94 03/25/24 20:30 137/94 Results CBC w Diff Results: RBC 2.82 M/uL (4.70-6.10) L 03/26/24 WBC 8.14 K/ul (4.8-10.8) 03/26/24 Hgb 9.0 g/dl (14.0-18.0) L 03/26/24 Hct 27.6 % (42.0-52.0) L 03/26/24 MCV 86.9 fL (80.0-100.0) 03/26/24 MCH 29.1 pg (25.0-34.0) 03/26/24 MCHC 33.5 g/dL (32.0-36.0) 03/26/24 RDW Standard Deviation 50.6 fL (36.4-46.3) H 03/26/24 RDW Coefficient of Variation 16.0 % (11.5-14.5) H 03/26/24 Plt Count 135 K/uL (130-400) 03/26/24 MPV 9.5 fL (9.4-12.4) 03/26/24 Nucleated Red Blood Cells % (auto) 0.2 % 03/25 Nucleated RBC Absolute Count (auto) 0.02 K/uL (0.00-0.12) 0 03/25/24 Neutrophils (%) (Auto) 56.7 % 03/26/24 Lymphocytes (%) (Auto) 24.0 % 03/26/24 Monocytes # (Auto) 0.99 K/uL (0.11-0.59) H 03/26/24 Eosinophils # (Auto) 0.38 K/uL (0.00-0.50) 03/26/24 Immature Granulocyte % (Auto) 1.8 % 03/26/24 Neutrophils # (Auto) 4.62 K/uL (1.40-6.50) 03/26/24 Lymphocytes # (Auto) 1.95 K/uL (1.20-3.40) 03/26/24 Monocytes # (Auto) 0.99 K/uL (0.11-0.59) H 03/26/24 Eosinophils # (Auto) 0.38 K/uL (0.00-0.50) 03/26/24 Basophils # (Auto) 0.05 K/uL (0.00-0.20) 07/16/24 Immature Granulocyte # (Auto) 0.15 K/uL (0.01-0.20) 4 Polychromasia 1+ 03/18/24 Anisocytosis Present 03/18/24 PG Care Time/CCT Total # of Minutes Spent Total Time Spent with Patient: Total time spent is greater than 50% in coordination of care (as documented) at patient's floor/unit and/or counseling patient: Coding Level of Care Code 96277 SUB INP/OBS CARE 10/05MIN Diagnoses Small bowel obstruction K56.609 Hematemesis K92.0
--- NOTE | 2024-03-26 09:17 | History & Physical Bridge Note ---
Date of Service March 26, 2024 History & Physical Bridge Note I have examined the patient, reviewed the History & Physical and in the interval since the performance of the History & Physical I have noted the following changes of clinical significance: no changes noted. Patient currently sedated, on propofol. Discussed with nursing, he has had some continued oral/nasal bloody drainage. 03/26/24 hgb 8.2 (previously 9.7). He is being transfused with 1 unit of PRBC currently. - will proceed with repeat EGD today. - continue to monitor Hgb/hct. - continue with protonix drip. - Surgery had seen patient and if gastrectomy is required, per their note, he will require transfer to a tertiary center.
[2024-03-26] MEDS ORDERED: SODIUM CHLORIDE 0.9% 1,000 ML IV PRN (09:42)
--- NOTE | 2024-03-26 10:12 | Nephrology Progress Note ---
Date of Service March 26, 2024 Assessment & Plan (1) Acute blood loss anemia: Plan: ->f/u repeat EGD result -serial H/H -s/p pRBC x 4 on 03/25, plus 1 unit today so far (2) ESRD on hemodialysis: Plan: Currently on HD and has HD cath, nonfunctional AVF. New to HD after his recent stroke; formerly PD patient and has PD cath in place still. GI bleed w/ Ileus. anuric; no UF last 2 txs >>complete HD today after yesterday's treatment cut short >> 2 more hours today >>no UF today again; he remains unstable; today barely normotensive off pressors and not challenging to ventilate >next HD tomorrow or as needs dictate >PD catheter care as below (3) Peritoneal dialysis catheter in place: Plan: >needs weekly flush >> attempted to flush this am w/o success >> director data management to try w/ heparin laced PD fluid >director data management (please no other nursing teams) to perform exit site care /dressing change DAILY in house for now >>given F ON, hypotension, bloody emesis, ileus >> will collect PD fluid specimens to eval for peritonitis, surveillance to r/o peritonitis element here >> if any proposed surgery, will need to consider/account for PD catheter in plan (4) Hypotension: Plan: improved today after 4 units pRBC in setting of likely GI bleed; brief pressor needs yesterday > continue to monitor (5) Ileus: Plan: >very complicated patient with extensive recent issues; currently concern he may need transfer for gastrectomy to manage GI bleeding >w/ ongoing emesis (when not sedated) and recent stroke > low threshold to scan head Plan critically ill patient at high risk for dialysis complications w/ several lifethreatening issues Care reviewed w/ Dr Mcallister regarding dialysis, infection monitoring, catheter maintenance. Admission and Anticipated Discharge Date Admission Date: March 17, 2024 Subjective oral/maxillofacial surgeon exam> no FOLD SKIVER bleeding. for repeat EGD today after completing 4th unit pRBC in 24 hrs. on HD yesterday essentially no UF (80 mL) >> and despite this needed pressors; no pressor requirement now however. Tmax ON 38.4 w/ several hours febrile. remains intubated for airway protection. Review of Systems 2 Review of Systems: Unobtainable due to endotracheal tube Physical Exam 2 Constitutional: well developed, well nourished, + obese and + mechanically ventilated; no acute distress Eyes: EOM intact bilaterally ENMT: Ears: no external ear abnormality Nose: no external nose abnormality Mouth: + dry oral mucous membranes Neck: no nuchal rigidity Respiratory: normal respiratory effort Auscultation: + diminished lung sounds Cardiovascular: Rate/Rhythm: regular rate and + tachycardic Extremities: no edema Gastrointestinal (Abdomen): Inspection/Auscultation: + abdomen distended and + high-pitched sounds Percussion/Palpation: abdomen soft; abdomen nontender PD catheter present, dressing loose, exit site w/o e/o drainage, crusting Skin: no rashes, warm and dry Neurologic: intubated, sedated Results & Data Vital Signs (Past 12 Hours) Vital Signs Temp Pulse Resp BP Pulse Ox O2 Del Method O2 Flow Rate 03/26/24 09:03 37.4 C 92 H 24 128/61 97 03/26/24 08:48 37.4 C 93 H 24 122/59 L 97 03/26/24 08:30 37.4 C 94 H 24 119/60 97 2 03/26/24 08:29 37.4 C 94 H 24 119/60 97 03/26/24 08:00 Mechanical Vent 03/26/24 08:00 101 H 03/26/24 08:00 120/80 03/26/24 07:50 91 H 25 H 98 03/26/24 07:18 37.4 C 91 H 24 99 Mechanical Vent 03/26/24 07:03 37.5 C 93 H 24 99 Mechanical Vent 03/26/24 06:09 37.7 C H 105 H 24 99 03/26/24 05:03 37.9 C H 89 24 99 03/26/24 04:15 38.0 C H 83 24 100 03/26/24 04:00 03/26/24 03:03 38.1 C H 84 24 100 03/26/24 02:19 87 24 99 03/26/24 02:00 38.2 C H 90 24 99 03/26/24 01:47 93 H 03/26/24 01:21 38.3 C H 96 H 24 98 03/26/24 00:09 38.2 C H 108 H 24 97 03/26/24 00:00 07/15/24 23:09 38.1 C H 89 24 100 03/25/24 22:45 148/82 H 03/25/24 22:42 38.2 C H 90 24 100 03/25/24 22:30 161/92 H 03/25/24 22:30 161/92 H 03/25/24 22:30 161/92 H 03/25/24 22:30 161/92 H 03/25/24 22:27 38.2 C H 95 H 24 100 03/25/24 22:18 38.3 C H 102 H 24 100 03/25/24 22:15 139/85 03/25/24 22:15 139/85 03/25/24 22:07 100 H 24 99 03/25/24 22:00 145/85 H 03/25/24 21:57 38.3 C H 102 H 24 99 FiO2 03/26/24 09:03 03/26/24 08:48 03/26/24 08:30 03/26/24 08:29 03/26/24 08:00 30 03/26/24 08:00 03/26/24 08:00 03/26/24 07:50 30 03/26/24 07:18 40 03/26/24 07:03 40 03/26/24 06:09 03/26/24 05:03 03/26/24 04:15 03/26/24 04:00 40 03/26/24 03:03 03/26/24 02:19 40 03/26/24 02:00 03/26/24 01:47 03/26/24 01:21 03/26/24 00:09 03/26/24 00:00 40 03/25/24 23:09 03/25/24 22:45 03/25/24 22:42 03/25/24 22:30 03/25/24 22:30 03/25/24 22:30 03/25/24 22:30 03/25/24 22:27 03/25/24 22:18 03/25/24 22:15 03/25/24 22:15 03/25/24 22:07 40 03/25/24 22:00 03/25/24 21:57 Laboratory Results 03/26/24 04:41 03/26/24 04:41 Diagnostic Findings cxr yesterday AM images personally reviewed by me > no e/o volume OL (4) Hypotension Hypotension type: hypotension due to hypovolemia Qualified Code(s): E86.1 - Hypovolemia
--- NOTE | 2024-03-26 11:07 | GI REPORT ---
[facility] Patient: MARIZOL ADEN : 1980 Sex at : Male Age: 44 Years Procedure: Upper GI endoscopy Date: 03/26/2024 Attending Physician: Yassine Calixto MD Referring MD: Elmer Call; Moshe Sharp Md Indications: Medications: - Propofol per Anesthesia Complications: - No immediate complications. Estimated Blood Loss: - Estimated blood loss was minimal from endoscopic maneuvers. Procedure: - ASA Grade Assessment: IV - A patient with severe systemic disease that is a constant threat to life. - The egd scope was introduced through the mouth and advanced to the second part of the duodenum. - The upper GI endoscopy was performed with difficulty due to excessive bleeding. Successful completion of the procedure was aided by lavage. - The patient tolerated the procedure. Findings: - Red blood was found in the middle third of the esophagus and in the lower third of the esophagus. - Clotted blood was found in the cardia. Lavage of the area was performed using a large amount of sterile water, resulting in incomplete clearance with fair visualization. Two long hemostatic spray applications - Hematin (altered blood/[id number] material) was found in the duodenal bulb. Lavage of the area was performed using a small amount of sterile water, resulting in clearance with adequate visualization. - When the blood in the cardia was washed away - there was underlying friable tissue with touch bleeding even from lavage. Impression: - Red blood in the middle third of the esophagus and in the lower third of the esophagus. - Clotted blood in the cardia. - Two long hemostatic spray applications - Blood in the duodenal bulb. - When the blood in the cardia was washed away - there was underlying friable tissue with touch bleeding even from lavage. - No specimens collected. Recommendation: Procedure Code(s): - 99510, Esophagogastroduodenoscopy, flexible, transoral; diagnostic, including collection of specimen(s) by brushing or washing, when performed (separate procedure) Diagnosis Code(s): - K22.89, Other specified disease of esophagus - K92.2, Gastrointestinal hemorrhage, unspecified CPT(R) - 202 copyright [employer]. All Rights Reserved. The CPT codes, CCI edits and ICD codes generated are intended as suggestions and were generated based on input data. These codes are preliminary and upon ux researcher review may be revised to meet current compliance and payer requirements. The provider is responsible for the final determination of appropriate codes, and modifiers. Yassine Calixto MD This document has been electronically signed. Note Initiated:03/26/2024 Note Completed:03/26/2024 11:06 AM \\[email or web address]\Provation\Results\[email or web address]\[id number]
--- NOTE | 2024-03-26 11:08 | Communication Note ---
Date of Service: March 26, 2024 POST PROCEDURE NOTE See Provation note for complete report. Summary: Extremely friable proximal gastric tissue (cardia) with another large accumulation of fresh blood in clot. When suctioned and washed away - the mucosa was seen to diffusely ooze even on lavage and touch bleeding. It may appear even somewhat worse than last night. Rec: Consider platelet transfusion PPI Prognosis seems poor. He has received 7 units of PRBCs recently and although his VS are currently stable his Hgb is very tenuous. Ultimately may require surgery if the patient/family does not want just comfort measures only.
[2024-03-26 11:39] LABS: Hematocrit (blood only) 27.6 % (42.0-52.0)
--- NOTE | 2024-03-26 13:49 | Procedure Note ---
Procedure Note Date of Service March 25, 2024 Note I was called by the ICU staff to see Chandan and control his nasal bleeding. It seems after his OR procedure he developed significant bleeding and clotting that the ICU staff could not control. CPT 92479-25 I came in to the ICU about 11:15 on MondayMarch 25 to see Chandan. He was intubated and sedated. He had significant clots in the nose and naso-pharyngeal area. With a large suction I was able to remove the large liver clots and temporary packed the nose. This controlled the bleeding and allowed me to insure all the clots were removed. I now removed the left gauze temporary packing and sprayed Afrin. A Rhino Rocket was used as well as a gauze packing sponge to keep pressure (left). At this time I removed the right temporary packing and did the same to the right nostril. This now controlled all the bleeding. There was no further clotting. I stayed around about 10 minutes and the packing was very dry. I will see Chandan in the morning and decide on when the packing will be removed. Patient tolerated the procedure very well. Coding
[2024-03-26 15:17] LABS: Hematocrit (blood only) 23.6 % (42.0-52.0); Hemoglobin 7.8 g/dl (14.0-18.0)
[2024-03-26 17:00] LABS: Basophils % (auto) 0.7 %; Eosinophils # (auto) 0.59 K/uL (0.00-0.50); Eosinophils % (auto) 3.9 %; Hemoglobin 7.3 g/dl (14.0-18.0); Immature Granulocytes # (auto) 0.34 K/uL (0.01-0.20); Immature Granulocytes % (auto) 2.2 %; Lymphocytes # (auto) 3.12 K/uL (1.20-3.40); Lymphocytes % (auto) 20.4 %; Mean Corpuscular Hemoglobin 28.7 pg (25.0-34.0); Mean Corpuscular Hgb Conc 33.2 g/dL (32.0-36.0); Mean Corpuscular Volume 86.6 fL (80.0-100.0); Mean Platelet Volume 10.3 fL (9.4-12.4); Monocytes # (auto) 1.99 K/uL (0.11-0.59); Neutrophils # (auto) 9.18 K/uL (1.40-6.50); Neutrophils % (auto) 59.8 %; Platelet Count 185 K/uL (130-400); RDW Coefficient of Variation 16.4 % (11.5-14.5); RDW Standard Deviation 50.6 fL (36.4-46.3); Red Blood Count 2.54 M/uL (4.70-6.10); White Blood Count 15.32 K/ul (4.8-10.8)
--- NOTE | 2024-03-26 17:01 | Hospitalist Progress Note ---
Date of Service March 26, 2024 Assessment & Plan (1) Ileus: (2) Hypotension: (3) Aphasia, post-stroke: (4) ESRD on peritoneal dialysis: (5) Acute ischemic left MCA stroke: (6) Essential hypertension: Plan Mr. 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 As per prior provider Patient's course since admission complicated by hypotension requiring pressor support, as well as acute on chronic anemia requiring blood product this am. Responsive to transfusion, hgb 8.7 s/p units. Hemorrhagic gastritis Acute blood loss anemia Hematemesis s/p PRBCs S/P EGD on 03/25/2024: Hematin (altered blood/hxplne-arnpiq-dvon material) was found in the lower third of the esophagus. Clotted blood in the gastric fundus. Diffuse hemorrhagic gastritis. Epinephrine bath/lavage. Normal examined duodenum. No specimens collected. -- Repeat EGD on 03/26/2024:Red blood in the middle third of the esophagus and in the lower third of the esophagus. Clotted blood in the cardia. Two long hemostatic spray applications. Blood in the duodenal bulb. When the blood in the cardia was washed away - there was underlying friable tissue with touch bl eeding even from lavage. No specimens collected. -- Continue Protonix drip Appreciate GI, surgery help Monitor H&H and transfuse as needed Avoid anticoagulation Poor prognosis Needs goals of care addressed Consideration for possible gastrectomy at tertiary care facility ? Poor candidate for surgery given comorbidities Possible Sepsis v SIRS Unclear source: Possible bacteremia, Pulmonary Source Chronic immunosuppression on cyclosporine --CXR:No acute chest disease. --CT ABD:Numerous dilated loops of large and small bowel without a firm transition point. Findings may represent ileus versus partial obstruction. There may be a focus of adhesions in the right lower quadrant. --Blood Cx:as below --Recently completed zosyn course 03/16 for aspiration PNA Continue IV Zosyn and Dapto--discontinued as per ID recommendations Elevated procalcitonin Midodrine on hold Gentle IV fluids as needed TTE study limited for assessment of endocarditis. Consulted infectious disease Currently requiring pressors Appreciate special service representative help Abnormal blood cultures Blood culture / coagulase-negative staph Repeat blood cultures: Negative to date Empirically on daptomycin, Zosyn--discontinued ID on board Repeat blood cultures pending Ileus Vs P.SBO Recent UGIB 2/2 gastritis --CT ABD as above Continue bowel rest, NG tube, gentle IV fluids Appreciate surgery input On PPI for gastritis NG tube output minimal + Flatus NG discontinued Surgery following Acute on chronic anemia Anemia likely multifactorial Received EPO [id number] IU sc once a week previously however held 2/2 recent stroke Monitor CBC ESRD on PD History of GPA s/p failed kidney transplant- on low-dose cyclosporin. Recent admission c/b hypotension, required CRRT and IHD PD catheter still in place Hold cinacalcet 60 mg daily via NG. Hold Cyclosporine 50 mg daily. Continue to avoid nephrotoxic drugs Appreciate nephrology input Monitor volume status Continue dialysis per nephrology Recent L MCA stroke c/b aphasia, right hemiparesis Calcified Mitral calcification, suspect cardioembolic Small PFO ROPE score noted to be 5, planned for OP cards follow up ALICIA completed showing PFO, atrial septal aneurysm, and calcified nodule on P2 of mitral valve [place] [facility] and Lipitor On statin Eliquis on hold due to bleeding issues DM II HbA1c 4.9 Monitor BGs DVT Px: SCDs for now CODE STATUS Full code Admission and Anticipated Discharge Date Admission Date: March 17, 2024 Subjective Patient is seen and examined at bedside Currently sedated and intubated Unable to obtain any history On pressors during my encounter Had hemodialysis earlier today Discussed with ICU team today Hemoglobin dropping despite transfusions Clinically seems to be deteriorating Febrile today Review of Systems Review of Systems: Unobtainable due to endotracheal tube Physical Exam Physical Exam: Physical Exam: Vitals signs as noted above General Appearance:Obese, no apparent distress,+Intubated Head: normocephalic, Atraumatic Eyes: normal inspection, EOMI Neck: supple, Trachea midline Respiratory/Chest: Normal breath sounds, CTA, No accessory muscle use Cardiovascular: S1, S2, No murmur Abdomen/GI:Soft, Non tender, distended Extremities/Musculoskeletal:normal inspection, no edema Neurologic/Psych: Sedated and intubated Skin: normal color, warm Results & Data Results & Data Vital Signs (Past 12 Hours) Vital Signs Temp Pulse Pulse Resp BP BP Pulse Ox 03/26/24 14:30 37.8 C H 103 H 102/60 03/26/24 14:27 37.5 C 105 H 24 96 03/26/24 14:16 106 H 24 99 03/26/24 14:00 105 H 95/54 L 03/26/24 14:00 37.8 C H 110 H 24 98 03/26/24 13:48 37.7 C H 104 H 24 96 03/26/24 13:45 116 H 95/53 L 03/26/24 13:30 102 H 104/62 03/26/24 13:15 117 H 88/47 L 03/26/24 13:06 37.4 C 103 H 24 96 03/26/24 13:00 105 H 90/52 L 03/26/24 12:45 107 H 86/49 L 03/26/24 12:45 37.8 C H 105 H 24 96 03/26/24 12:36 37.8 C H 103 H 24 94 03/26/24 12:30 101 H 94/55 L 03/26/24 12:27 37.7 C H 109 H 24 99 03/26/24 12:17 96 H 110/61 03/26/24 12:09 37.7 C H 102 H 24 97 03/26/24 12:08 37.7 C H 101 H 03/26/24 12:00 116/68 03/26/24 12:00 03/26/24 12:00 102 H 97/56 L 03/26/24 11:51 37.6 C H 99 H 24 97 03/26/24 11:45 37.6 C H 100 H 24 98 03/26/24 11:34 97 H 24 99 03/26/24 11:33 37.6 C H 99 H 24 98 03/26/24 11:15 37.5 C 98 H 24 98 03/26/24 10:55 102 H 24 130/70 96 03/26/24 10:50 95 H 24 117/59 L 97 03/26/24 10:45 92 H 24 113/61 98 03/26/24 10:40 88 24 121/59 L 100 03/26/24 10:33 37.4 C 74 24 100 03/26/24 10:30 95 H 24 113/60 94 03/26/24 10:04 37.4 C 95 H 24 119/60 98 03/26/24 09:33 37.4 C 95 H 24 116/58 L 97 03/26/24 09:03 37.4 C 92 H 24 128/61 97 03/26/24 08:48 37.4 C 93 H 24 122/59 L 97 03/26/24 08:30 37.4 C 94 H 24 119/60 97 03/26/24 08:29 37.4 C 94 H 24 119/60 97 03/26/24 08:00 03/26/24 08:00 03/26/24 08:00 101 H 03/26/24 08:00 120/80 03/26/24 07:50 91 H 25 H 98 03/26/24 07:18 37.4 C 91 H 24 99 03/26/24 07:03 37.5 C 93 H 24 99 03/26/24 06:09 37.7 C H 105 H 24 99 03/26/24 05:03 37.9 C H 89 24 99 O2 Del Method O2 Flow Rate FiO2 03/26/24 14:30 03/26/24 14:27 Mechanical Vent 03/26/24 14:16 30 03/26/24 14:00 03/26/24 14:00 Mechanical Vent 03/26/24 13:48 03/26/24 13:45 03/26/24 13:30 03/26/24 13:15 03/26/24 13:06 Mechanical Vent 03/26/24 13:00 03/26/24 12:45 03/26/24 12:45 03/26/24 12:36 Mechanical Vent 03/26/24 12:30 03/26/24 12:27 03/26/24 12:17 03/26/24 12:09 Mechanical Vent 03/26/24 12:08 03/26/24 12:00 03/26/24 12:00 30 03/26/24 12:00 03/26/24 11:51 03/26/24 11:45 Mechanical Vent 30 03/26/24 11:34 30 03/26/24 11:33 03/26/24 11:15 03/26/24 10:55 03/26/24 10:50 03/26/24 10:45 03/26/24 10:40 03/26/24 10:33 03/26/24 10:30 Mechanical Vent 03/26/24 10:04 03/26/24 09:33 03/26/24 09:03 03/26/24 08:48 03/26/24 08:30 2 03/26/24 08:29 03/26/24 08:00 30 03/26/24 08:00 Mechanical Vent 30 03/26/24 08:00 03/26/24 08:00 03/26/24 07:50 30 03/26/24 07:18 Mechanical Vent 40 03/26/24 07:03 Mechanical Vent 40 03/26/24 06:09 03/26/24 05:03 Laboratory Results Short CBC 03/25/24 03/26/24 03/26/24 Range/Units 19:41 00:11 04:41 WBC 11.38 H 8.14 (4.8-10.8) K/ul Hgb 10.5 L D 9.7 L 8.2 L (14.0-18.0) g/dl Hct 32.8 L 29.9 L 24.5 L (42.0-52.0) % Plt Count 162 135 (130-400) K/uL 03/26/24 03/26/24 Range/Units 11:27 14:47 WBC (4.8-10.8) K/ul Hgb 9.0 L 7.8 L (14.0-18.0) g/dl Hct 27.6 L 23.6 L (42.0-52.0) % Plt Count (130-400) K/uL [facility] 03/25/24 03/26/24 19:41 04:41 Sodium 138 136 Potassium 3.4 L D 4.0 Chloride 100 100 Carbon Dioxide 19 L 19 L BUN 58 H D 63 H Creatinine 8.21 H* D 9.34 H* D Glucose 129 H 146 H Calcium 8.8 8.3 L Liver Function 03/26/24 Range/Units 04:41 Total Bilirubin 1.6 H (0.2-1.0) mg/dl AST 47 H (13-39) U/L ALT 41 (7-52) U/L Alkaline Phosphatase 105 H (34-104) U/L Albumin 3.2 L (3.4-5.0) gm/dl (2) Hypotension Hypotension type: hypotension due to hypovolemia Qualified Code(s): E86.1 - Hypovolemia
--- NOTE | 2024-03-26 17:11 | Palliative Care Consultation ---
Date of Consultation March 26, 2024 Assessment & Plan (1) Weakness generalized: (2) Altered mental status: (3) Palliative care by specialist: Plan Will attempt to reach family to arrange for meeting and discussion. There is no family present at the time of my evaluation this morning. Discussion with staff indicates patient is not and does not have adult children. His parents are listed as next of kin emergency contact along with a brother. Is unclear at this time who is the primary decision maker though per [place] [address] in [place], next of kin decision-makers would be his parents then followed by his siblings. Thank you for allowing us to participate in the ongoing care of this patient. Please page with any additional concerns. Flavia Campbell DNP Director, Palliative Medicine History of Present Illness Reason for Consultation: goals/esrd Attending Physician: Moshe Sharp MD History of Present Illness Chandan is a critically ill 44-year-old gentleman with a significant history of end-stage renal failure who has been on hemodialysis. 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 He has been admitted to the hospital in the setting of an ileus with concerns for GI bleed. He has chronic anemia due to his end-stage renal disease. He is noted to be hypotensive and due to hemodynamic instability, he is now intubated and sedated. At the time of my visit, he is intubated, sedated on the ventilator and there is no family present. Repeat scope indicates an extremely friable proximal gastric tissue with another large accumulation of fresh blood and clot. This appears to be oozing diffusely on lavage and with light touch. Prognosis is felt to be overall very poor. He was received over 7 units of packed red blood cells and his hemoglobin remains low. Surgery may be potential however his prognosis is still poor that surgery may not bring a meaningful outcome. Allergies Allergy/AdvReac Type Severity Reaction Status Date / Time No Known Allergies Allergy Verified 03/17/24 11:47 Home Medications Medication Instructions Recorded Confirmed Type apixaban 5 mg tablet (Eliquis) 5 mg PO BID 03/17/24 03/17/24 History atorvastatin 40 mg tablet 40 mg PO HS 03/17/24 03/17/24 History calcium acetate(phosphat bind) 667 2,001 mg PO UD 03/17/24 03/17/24 History mg capsule cinacalcet 30 mg tablet 60 mg PO QPM 03/17/24 03/17/24 History cyclosporine modified 25 mg capsule 50 mg PO BID 03/17/24 03/17/24 History febuxostat 80 mg tablet 80 mg PO QAM 03/17/24 03/17/24 History ferric citrate 210 mg iron tablet 210 mg PO AC 03/17/24 03/17/24 History (Auryxia) metoprolol succinate 100 mg 100 mg PO QAM 03/17/24 03/17/24 History tablet,extended release 24 hr omeprazole 20 mg capsule,delayed 20 mg PO BID 03/17/24 03/17/24 History release vitamin B complex and vitamin C 1 cap PO DAILY 03/17/24 03/17/24 History no.20-folic acid 1 mg capsule Patient History Medical History Legionnaires' disease Diastolic congestive heart failure Failed kidney transplant Gouty arthropathy Granulomatosis with polyangiitis with renal involvement Surgical History History of kidney transplant Family History Other Cancer Diabetes Hypertension Social History Smoking Status: Never smoker Hx Alcohol Use: No Hx Substance Use: No Preferred Language: Croatian Communication Ability: Unable Hot Box Checker Required: No Beliefs That Will Affect Care: None Feels Safe at Home: Yes Assistive Devices: Walker Review of Systems Review of Systems: Unobtainable due to endotracheal tube and Unobtainable due to reduced consciousness Physical Exam Physical Exam: Critically ill male, appears older than stated age. He is intubated and sedated on mechanical ventilation. Pupils are sluggishly equal. Trachea is midline, there is no stridor. He has bilateral Rhino Rocket's in his nose. His lungs are overall diminished with symmetric air movement. There are few scattered rhonchi. There is no wheezing appreciated. On cardiac exam it is noted to be S1-S2 without any gross murmurs noted. He has a regular rate and rhythm. Abdomen is obese without any obvious pulsations or visible masses. Bowel sounds are diminished throughout. There is no grimacing noted with deep palpation. No ascites. There is a left upper extremity fistula with thrill. He is sedated unable to follow commands. [facility] was not obtainable. Patient is sedated. Results & Data Vital Signs (Past 12 Hours) Vital Signs Temp Pulse Pulse Resp BP BP Pulse Ox 03/26/24 16:00 03/26/24 16:00 101/44 L 03/26/24 14:30 37.8 C H 103 H 102/60 03/26/24 14:27 37.5 C 105 H 24 96 03/26/24 14:16 106 H 24 99 03/26/24 14:00 105 H 95/54 L 03/26/24 14:00 37.8 C H 110 H 24 98 03/26/24 13:48 37.7 C H 104 H 24 96 03/26/24 13:45 116 H 95/53 L 03/26/24 13:30 102 H 104/62 03/26/24 13:15 117 H 88/47 L 03/26/24 13:06 37.4 C 103 H 24 96 03/26/24 13:00 105 H 90/52 L 03/26/24 12:45 107 H 86/49 L 03/26/24 12:45 37.8 C H 105 H 24 96 03/26/24 12:36 37.8 C H 103 H 24 94 03/26/24 12:30 101 H 94/55 L 03/26/24 12:27 37.7 C H 109 H 24 99 03/26/24 12:17 96 H 110/61 03/26/24 12:09 37.7 C H 102 H 24 97 03/26/24 12:08 37.7 C H 101 H 03/26/24 12:00 116/68 03/26/24 12:00 03/26/24 12:00 102 H 97/56 L 03/26/24 11:51 37.6 C H 99 H 24 97 03/26/24 11:45 37.6 C H 100 H 24 98 03/26/24 11:34 97 H 24 99 03/26/24 11:33 37.6 C H 99 H 24 98 03/26/24 11:15 37.5 C 98 H 24 98 03/26/24 10:55 102 H 24 130/70 96 03/26/24 10:50 95 H 24 117/59 L 97 03/26/24 10:45 92 H 24 113/61 98 03/26/24 10:40 88 24 121/59 L 100 03/26/24 10:33 37.4 C 74 24 100 03/26/24 10:30 95 H 24 113/60 94 03/26/24 10:04 37.4 C 95 H 24 119/60 98 03/26/24 09:33 37.4 C 95 H 24 116/58 L 97 03/26/24 09:03 37.4 C 92 H 24 128/61 97 03/26/24 08:48 37.4 C 93 H 24 122/59 L 97 03/26/24 08:30 37.4 C 94 H 24 119/60 97 03/26/24 08:29 37.4 C 94 H 24 119/60 97 03/26/24 08:00 03/26/24 08:00 03/26/24 08:00 101 H 03/26/24 08:00 120/80 03/26/24 07:50 91 H 25 H 98 03/26/24 07:18 37.4 C 91 H 24 99 03/26/24 07:03 37.5 C 93 H 24 99 03/26/24 06:09 37.7 C H 105 H 24 99 O2 Del Method O2 Flow Rate FiO2 03/26/24 16:00 30 03/26/24 16:00 03/26/24 14:30 03/26/24 14:27 Mechanical Vent 30 03/26/24 14:16 30 03/26/24 14:00 03/26/24 14:00 Mechanical Vent 03/26/24 13:48 03/26/24 13:45 03/26/24 13:30 03/26/24 13:15 03/26/24 13:06 Mechanical Vent 30 03/26/24 13:00 03/26/24 12:45 03/26/24 12:45 30 03/26/24 12:36 Mechanical Vent 03/26/24 12:30 03/26/24 12:27 03/26/24 12:17 03/26/24 12:09 Mechanical Vent 30 03/26/24 12:08 03/26/24 12:00 03/26/24 12:00 30 03/26/24 12:00 07/16/24 11:51 03/26/24 11:45 Mechanical Vent 30 03/26/24 11:34 30 03/26/24 11:33 03/26/24 11:15 03/26/24 10:55 03/26/24 10:50 03/26/24 10:45 03/26/24 10:40 03/26/24 10:33 03/26/24 10:30 Mechanical Vent 03/26/24 10:04 03/26/24 09:33 03/26/24 09:03 03/26/24 08:48 03/26/24 08:30 2 03/26/24 08:29 03/26/24 08:00 30 03/26/24 08:00 Mechanical Vent 30 03/26/24 08:00 03/26/24 08:00 03/26/24 07:50 30 03/26/24 07:18 Mechanical Vent 40 03/26/24 07:03 Mechanical Vent 40 03/26/24 06:09 Laboratory Results 03/26/24 03/26/24 03/26/24 Range/Units Unknown 16:29 14:47 WBC 15.32 H RBC 2.54 L Hgb 7.3 L 7.8 L POC Hgb (14.0-18.0) g/dl Hct 22.0 L 23.6 L POC Hct (42-52) % MCV 86.6 MCH 28.7 MCHC 33.2 RDW Std Deviation 50.6 H RDW Coeff of Annie 16.4 H Plt Count 185 MPV 10.3 Immature Gran % (Auto) 2.2 Neut % (Auto) 59.8 Lymph % (Auto) 20.4 [place] % (Auto) 13.0 Eos % (Auto) 3.9 Baso % (Auto) 0.7 Neut # (Auto) 9.18 H Lymph # (Auto) 3.12 [place] # (Auto) 1.99 H Eos # (Auto) 0.59 H Baso # (Auto) 0.10 Immature Gran # (Auto) 0.34 H Absolute Nucleated RBC Nucleated RBC % (auto) Neutrophils % (Manual) Band Neutrophils % Lymphocytes % (Manual) Prolymphocyte % Reactive Lymphs % (Man) Monocytes % (Manual) Eosinophils % (Manual) Basophils % (Manual) Metamyelocytes % (Man) Myelocytes % (Man) Promyelocytes % (Man) Blast Cells % (Manual) Plasma Cell % (Manual) Other Cells % Nucleated RBC % Neutrophils # (Manual) Band Neutrophils # Total Absolute Neuts Lymphocytes # (Manual) Prolymphocyte # Reactive Lymphs # Total Abs Lymphocytes Monocytes # (Manual) Eosinophils # (Manual) Basophils # (Manual) Metamyelocytes # (Man) Myelocytes # (Manual) Promyelocytes # (Man) Blast Cells # (Man) Plasma Cell # (Manual) Other Cells # Nucleated RBCs # (Man) Hypersegmented Neuts Hyposegmented Neuts Hypogranular Neuts Large Granular Lymphs # Lrg Granular Lymphs Hairy Cells Smudge Cells Toxic Granulation Toxic Vacuolation Dohle Bodies Priya Rods Platelet Estimate Hypogranular Platelets Giant Platelets Platelet Satelliting RBC Morphology Polychromasia Hypochromasia Poikilocytosis Basophilic Stippling Anisocytosis Microcytosis Macrocytosis Spherocytes Pappenheimer Bodies Sickle Cells Target Cells Tear Drop Cells Ovalocytes Stomatocytes Galindo-Valencia Bodies Echinocytes Acanthocytes (Spur) Rouleaux RBC Agglutinates Schistocytes Sezary Cell PT (9.0-12.0) Seconds INR (0.9-1.1) Fibrinogen (184-400) mg/dl Sample Site POC pH (7.35-7.45) POC pCO2 (35-46) mmHg POC pO2 (80-95) mmHg POC HCO3 (19-24) alicia/L POC Total CO2 (24-31) mmol/L POC Base Excess (-9-1.8) alicia/L ABG pH (Temp Correct) (7.35-7.45) ABG pCO2 (Temp Corrct (35-46) mmHg POC ABG pO2 at Pt Temp POC ABG O2 Sat (90-95) % Javon Test O2 Delivery Device POC O2 Rate POC FiO2 % Tidal Volume PEEP POC Sodium (135-144) mmol/L Sodium (136-145) mmol/L POC Potassium (3.3-5.0) mmol/L Potassium (3.5-5.1) mmol/L Chloride (98-107) mmol/L Carbon Dioxide (21-32) mmol/L Anion Gap (3-11) BUN (6-23) mg/dl Creatinine (0.6-1.4) mg/dl Est Cr Clr Drug Dosing ml/min Est GFR ( Amer) ml/min Est GFR (Non-Af Amer) ml/min BUN/Creatinine Ratio (10-20) Glucose (70-99(Fasting)) mg/dl POC Glucose (other) (70-99) mg/dl Estimat Average Glucose mg/dl Hemoglobin A1c (4.5-5.6) % Lactate (0.4-2.0) mmol/L Calcium (8.6-10.3) mg/dl Ionized Calcium (1.12-1.32) mmol/L Phosphorus (2.5-4.9) mg/dl Magnesium (1.7-2.4) mg/dl Total Bilirubin (0.2-1.0) mg/dl AST (13-39) U/L ALT (7-52) U/L Alkaline Phosphatase (34-104) U/L Total Protein (6.0-8.3) gm/dl Albumin (3.4-5.0) gm/dl Globulin (2.5-4.0) gm/dl Albumin/Globulin Ratio (0.9-2) Procalcitonin (0-0.5) ng/ml Stool Occult Bld Scrn Positive A (Negative) Hep B Core IgM Ab (NON-REACTIVE) Staphylococcus sp PCR (NotDetected) mecA/C-Methicil Resis Gene (NotDetected) Staph epidermidis (PCR) (NotDetected) Bld Cult ID Panel PCR (NotDetected) Blood Parasites ID Blood Type Antibody Screen Crossmatch 03/26/24 03/26/24 03/26/24 Range/Units 11:27 04:41 04:01 WBC 8.14 RBC 2.82 L Hgb 9.0 L 8.2 L POC Hgb 7.8 L (14.0-18.0) g/dl Hct 27.6 L 24.5 L POC Hct 23 L (42-52) % MCV 86.9 MCH 29.1 MCHC 33.5 RDW Std Deviation 50.6 H RDW Coeff of Annie 16.0 H Plt Count 135 MPV 9.5 Immature Gran % (Auto) 1.8 Neut % (Auto) 56.7 Lymph % (Auto) 24.0 [place] % (Auto) 12.2 Eos % (Auto) 4.7 Baso % (Auto) 0.6 Neut # (Auto) 4.62 Lymph # (Auto) 1.95 [place] # (Auto) 0.99 H Eos # (Auto) 0.38 Baso # (Auto) 0.05 Immature Gran # (Auto) 0.15 Absolute Nucleated RBC Nucleated RBC % (auto) Neutrophils % (Manual) Band Neutrophils % Lymphocytes % (Manual) Prolymphocyte % Reactive Lymphs % (Man) Monocytes % (Manual) Eosinophils % (Manual) Basophils % (Manual) Metamyelocytes % (Man) Myelocytes % (Man) Promyelocytes % (Man) Blast Cells % (Manual) Plasma Cell % (Manual) Other Cells % Nucleated RBC % Neutrophils # (Manual) Band Neutrophils # Total Absolute Neuts Lymphocytes # (Manual) Prolymphocyte # Reactive Lymphs # Total Abs Lymphocytes Monocytes # (Manual) Eosinophils # (Manual) Basophils # (Manual) Metamyelocytes # (Man) Myelocytes # (Manual) Promyelocytes # (Man) Blast Cells # (Man) Plasma Cell # (Manual) Other Cells # Nucleated RBCs # (Man) Hypersegmented Neuts Hyposegmented Neuts Hypogranular Neuts Large Granular Lymphs # Lrg Granular Lymphs Hairy Cells Smudge Cells Toxic Granulation Toxic Vacuolation Dohle Bodies Priya Rods Platelet Estimate Hypogranular Platelets Giant Platelets Platelet Satelliting RBC Morphology Polychromasia Hypochromasia Poikilocytosis Basophilic Stippling Anisocytosis Microcytosis Macrocytosis Spherocytes Pappenheimer Bodies Sickle Cells Target Cells Tear Drop Cells Ovalocytes Stomatocytes Galindo-Valencia Bodies Echinocytes Acanthocytes (Spur) Rouleaux RBC Agglutinates Schistocytes Sezary Cell PT (9.0-12.0) Seconds INR (0.9-1.1) Fibrinogen (184-400) mg/dl Sample Site Art Line POC pH 7.36 (7.35-7.45) POC pCO2 35 (35-46) mmHg POC pO2 103 H (80-95) mmHg POC HCO3 19 (19-24) alicia/L POC Total CO2 20 L (24-31) mmol/L POC Base Excess -6.0 (-9-1.8) alicia/L ABG pH (Temp Correct) 7.343 L (7.35-7.45) ABG pCO2 (Temp Corrct 36 (35-46) mmHg POC ABG pO2 at Pt Temp 109 POC ABG O2 Sat 98.0 H (90-95) % Javon Test NA O2 Delivery Device Ventilator POC O2 Rate 24 POC FiO2 40 % Tidal Volume 425 PEEP 8 POC Sodium 135 (135-144) mmol/L Sodium 136 (136-145) mmol/L POC Potassium 4.0 (3.3-5.0) mmol/L Potassium 4.0 (3.5-5.1) mmol/L Chloride 100 (98-107) mmol/L Carbon Dioxide 19 L (21-32) mmol/L Anion Gap 17 H (3-11) BUN 63 H (6-23) mg/dl Creatinine 9.34 H* D (0.6-1.4) mg/dl Est Cr Clr Drug Dosing 12.6 ml/min Est GFR ( Amer) 7.1 ml/min Est GFR (Non-Af Amer) 6.2 ml/min BUN/Creatinine Ratio 6.7 L (10-20) Glucose 146 H (70-99(Fasting)) mg/dl POC Glucose (other) (70-99) mg/dl Estimat Average Glucose mg/dl Hemoglobin A1c (4.5-5.6) % Lactate (0.4-2.0) mmol/L Calcium 8.3 L (8.6-10.3) mg/dl Ionized Calcium (1.12-1.32) mmol/L Phosphorus 7.3 H (2.5-4.9) mg/dl Magnesium 2.0 (1.7-2.4) mg/dl Total Bilirubin 1.6 H (0.2-1.0) mg/dl AST 47 H (13-39) U/L ALT 41 (7-52) U/L Alkaline Phosphatase 105 H (34-104) U/L Total Protein 6.0 (6.0-8.3) gm/dl Albumin 3.2 L (3.4-5.0) gm/dl Globulin 2.8 (2.5-4.0) gm/dl Albumin/Globulin Ratio 1.1 (0.9-2) Procalcitonin (0-0.5) ng/ml Stool Occult Bld Scrn (Negative) Hep B Core IgM Ab (NON-REACTIVE) Staphylococcus sp PCR (NotDetected) mecA/C-Methicil Resis Gene (NotDetected) Staph epidermidis (PCR) (NotDetected) Bld Cult ID Panel PCR (NotDetected) Blood Parasites ID Blood Type Antibody Screen Crossmatch 03/26/24 03/26/24 03/25/24 Range/Units 00:20 00:11 21:00 WBC RBC Hgb 9.7 L POC Hgb (14.0-18.0) g/dl Hct 29.9 L POC Hct (42-52) % MCV MCH MCHC RDW Std Deviation RDW Coeff of Annie Plt Count MPV Immature Gran % (Auto) Neut % (Auto) Lymph % (Auto) [place] % (Auto) Eos % (Auto) Baso % (Auto) Neut # (Auto) Lymph # (Auto) [place] # (Auto) Eos # (Auto) Baso # (Auto) Immature Gran # (Auto) Absolute Nucleated RBC Nucleated RBC % (auto) Neutrophils % (Manual) Band Neutrophils % Lymphocytes % (Manual) Prolymphocyte % Reactive Lymphs % (Man) Monocytes % (Manual) Eosinophils % (Manual) Basophils % (Manual) Metamyelocytes % (Man) Myelocytes % (Man) Promyelocytes % (Man) Blast Cells % (Manual) Plasma Cell % (Manual) Other Cells % Nucleated RBC % Neutrophils # (Manual) Band Neutrophils # Total Absolute Neuts Lymphocytes # (Manual) Prolymphocyte # Reactive Lymphs # Total Abs Lymphocytes Monocytes # (Manual) Eosinophils # (Manual) Basophils # (Manual) Metamyelocytes # (Man) Myelocytes # (Manual) Promyelocytes # (Man) Blast Cells # (Man) Plasma Cell # (Manual) Other Cells # Nucleated RBCs # (Man) Hypersegmented Neuts Hyposegmented Neuts Hypogranular Neuts Large Granular Lymphs # Lrg Granular Lymphs Hairy Cells Smudge Cells Toxic Granulation Toxic Vacuolation Dohle Bodies Priya Rods Platelet Estimate Hypogranular Platelets Giant Platelets Platelet Satelliting RBC Morphology Polychromasia Hypochromasia Poikilocytosis Basophilic Stippling Anisocytosis Microcytosis Macrocytosis Spherocytes Pappenheimer Bodies Sickle Cells Target Cells Tear Drop Cells Ovalocytes Stomatocytes Galindo-Valencia Bodies Echinocytes Acanthocytes (Spur) Rouleaux RBC Agglutinates Schistocytes Sezary Cell PT (9.0-12.0) Seconds INR (0.9-1.1) Fibrinogen (184-400) mg/dl Sample Site POC pH (7.35-7.45) POC pCO2 (35-46) mmHg POC pO2 (80-95) mmHg POC HCO3 (19-24) alicia/L POC Total CO2 (24-31) mmol/L POC Base Excess (-9-1.8) alicia/L ABG pH (Temp Correct) (7.35-7.45) ABG pCO2 (Temp Corrct (35-46) mmHg POC ABG pO2 at Pt Temp POC ABG O2 Sat (90-95) % Javon Test O2 Delivery Device POC O2 Rate POC FiO2 % Tidal Volume PEEP POC Sodium (135-144) mmol/L Sodium (136-145) mmol/L POC Potassium (3.3-5.0) mmol/L Potassium (3.5-5.1) mmol/L Chloride (98-107) mmol/L Carbon Dioxide (21-32) mmol/L Anion Gap (3-11) BUN (6-23) mg/dl Creatinine (0.6-1.4) mg/dl Est Cr Clr Drug Dosing ml/min Est GFR ( Amer) ml/min Est GFR (Non-Af Amer) ml/min BUN/Creatinine Ratio (10-20) Glucose (70-99(Fasting)) mg/dl POC Glucose (other) 136 H (70-99) mg/dl Estimat Average Glucose mg/dl Hemoglobin A1c (4.5-5.6) % Lactate 0.8 (0.4-2.0) mmol/L Calcium (8.6-10.3) mg/dl Ionized Calcium (1.12-1.32) mmol/L Phosphorus (2.5-4.9) mg/dl Magnesium (1.7-2.4) mg/dl Total Bilirubin (0.2-1.0) mg/dl AST (13-39) U/L ALT (7-52) U/L Alkaline Phosphatase (34-104) U/L Total Protein (6.0-8.3) gm/dl Albumin (3.4-5.0) gm/dl Globulin (2.5-4.0) gm/dl Albumin/Globulin Ratio (0.9-2) Procalcitonin (0-0.5) ng/ml Stool Occult Bld Scrn (Negative) Hep B Core IgM Ab (NON-REACTIVE) Staphylococcus sp PCR (NotDetected) mecA/C-Methicil Resis Gene (NotDetected) Staph epidermidis (PCR) (NotDetected) Bld Cult ID Panel PCR (NotDetected) Blood Parasites ID Blood Type Antibody Screen Crossmatch 03/25/24 03/25/24 03/25/24 Range/Units 19:45 19:41 19:40 WBC 11.38 H RBC 3.63 L Hgb 10.5 L D POC Hgb 10.2 L (14.0-18.0) g/dl Hct 32.8 L POC Hct 30 L (42-52) % MCV 90.4 MCH 28.9 MCHC 32.0 RDW Std Deviation 51.1 H RDW Coeff of Annie 15.7 H Plt Count 162 MPV 10.0 Immature Gran % (Auto) 2.5 Neut % (Auto) 58.6 Lymph % (Auto) 23.2 [place] % (Auto) 11.4 Eos % (Auto) 3.6 Baso % (Auto) 0.7 Neut # (Auto) 6.67 H Lymph # (Auto) 2.64 [place] # (Auto) 1.30 H Eos # (Auto) 0.41 Baso # (Auto) 0.08 Immature Gran # (Auto) 0.28 H Absolute Nucleated RBC 0.02 Nucleated RBC % (auto) 0.2 Neutrophils % (Manual) Band Neutrophils % Lymphocytes % (Manual) Prolymphocyte % Reactive Lymphs % (Man) Monocytes % (Manual) Eosinophils % (Manual) Basophils % (Manual) Metamyelocytes % (Man) Myelocytes % (Man) Promyelocytes % (Man) Blast Cells % (Manual) Plasma Cell % (Manual) Other Cells % Nucleated RBC % Neutrophils # (Manual) Band Neutrophils # Total Absolute Neuts Lymphocytes # (Manual) Prolymphocyte # Reactive Lymphs # Total Abs Lymphocytes Monocytes # (Manual) Eosinophils # (Manual) Basophils # (Manual) Metamyelocytes # (Man) Myelocytes # (Manual) Promyelocytes # (Man) Blast Cells # (Man) Plasma Cell # (Manual) Other Cells # Nucleated RBCs # (Man) Hypersegmented Neuts Hyposegmented Neuts Hypogranular Neuts Large Granular Lymphs # Lrg Granular Lymphs Hairy Cells Smudge Cells Toxic Granulation Toxic Vacuolation Dohle Bodies Priya Rods Platelet Estimate Hypogranular Platelets Giant Platelets Platelet Satelliting RBC Morphology Polychromasia Hypochromasia Poikilocytosis Basophilic Stippling Anisocytosis Microcytosis Macrocytosis Spherocytes Pappenheimer Bodies Sickle Cells Target Cells Tear Drop Cells Ovalocytes Stomatocytes Galindo-Valencia Bodies Echinocytes Acanthocytes (Spur) Rouleaux RBC Agglutinates Schistocytes Sezary Cell PT 12.7 H (9.0-12.0) Seconds INR 1.2 H (0.9-1.1) Fibrinogen 504 H (184-400) mg/dl Sample Site Art Line POC pH 7.22 L (7.35-7.45) POC pCO2 48 H (35-46) mmHg POC pO2 77 L (80-95) mmHg POC HCO3 20 (19-24) alicia/L POC Total CO2 21 L (24-31) mmol/L POC Base Excess -8.0 (-9-1.8) alicia/L ABG pH (Temp Correct) 7.219 L (7.35-7.45) ABG pCO2 (Temp Corrct 48 H (35-46) mmHg POC ABG pO2 at Pt Temp 77 POC ABG O2 Sat 92.0 (90-95) % Javon Test NA O2 Delivery Device Ventilator POC O2 Rate 18 POC FiO2 60 % Tidal Volume 425 PEEP 8 POC Sodium 137 (135-144) mmol/L Sodium 138 (136-145) mmol/L POC Potassium 3.2 L (3.3-5.0) mmol/L Potassium 3.4 L D (3.5-5.1) mmol/L Chloride 100 (98-107) mmol/L Carbon Dioxide 19 L (21-32) mmol/L Anion Gap 19 H (3-11) BUN 58 H D (6-23) mg/dl Creatinine 8.21 H* D (0.6-1.4) mg/dl Est Cr Clr Drug Dosing 14.3 ml/min Est GFR ( Amer) 8.3 ml/min Est GFR (Non-Af Amer) 7.2 ml/min BUN/Creatinine Ratio 7.1 L (10-20) Glucose 129 H (70-99(Fasting)) mg/dl POC Glucose (other) (70-99) mg/dl Estimat Average Glucose mg/dl Hemoglobin A1c (4.5-5.6) % Lactate (0.4-2.0) mmol/L Calcium 8.8 (8.6-10.3) mg/dl Ionized Calcium 1.13 (1.12-1.32) mmol/L Phosphorus 6.8 H (2.5-4.9) mg/dl Magnesium 2.0 (1.7-2.4) mg/dl Total Bilirubin (0.2-1.0) mg/dl AST (13-39) U/L ALT (7-52) U/L Alkaline Phosphatase (34-104) U/L Total Protein (6.0-8.3) gm/dl Albumin (3.4-5.0) gm/dl Globulin (2.5-4.0) gm/dl Albumin/Globulin Ratio (0.9-2) Procalcitonin (0-0.5) ng/ml Stool Occult Bld Scrn (Negative) Hep B Core IgM Ab (NON-REACTIVE) Staphylococcus sp PCR (NotDetected) mecA/C-Methicil Resis Gene (NotDetected) Staph epidermidis (PCR) (NotDetected) Bld Cult ID Panel PCR (NotDetected) Blood Parasites ID Blood Type Antibody Screen Crossmatch 03/25/24 03/25/24 03/25/24 Range/Units 15:20 12:22 11:04 WBC RBC Hgb 7.0 L 7.4 L Cancelled POC Hgb (14.0-18.0) g/dl Hct 21.6 L 23.5 L Cancelled POC Hct (42-52) % MCV MCH MCHC RDW Std Deviation RDW Coeff of Annie Plt Count MPV Immature Gran % (Auto) Neut % (Auto) Lymph % (Auto) [place] % (Auto) Eos % (Auto) Baso % (Auto) Neut # (Auto) Lymph # (Auto) [place] # (Auto) Eos # (Auto) Baso # (Auto) Immature Gran # (Auto) Absolute Nucleated RBC Nucleated RBC % (auto) Neutrophils % (Manual) Band Neutrophils % Lymphocytes % (Manual) Prolymphocyte % Reactive Lymphs % (Man) Monocytes % (Manual) Eosinophils % (Manual) Basophils % (Manual) Metamyelocytes % (Man) Myelocytes % (Man) Promyelocytes % (Man) Blast Cells % (Manual) Plasma Cell % (Manual) Other Cells % Nucleated RBC % Neutrophils # (Manual) Band Neutrophils # Total Absolute Neuts Lymphocytes # (Manual) Prolymphocyte # Reactive Lymphs # Total Abs Lymphocytes Monocytes # (Manual) Eosinophils # (Manual) Basophils # (Manual) Metamyelocytes # (Man) Myelocytes # (Manual) Promyelocytes # (Man) Blast Cells # (Man) Plasma Cell # (Manual) Other Cells # Nucleated RBCs # (Man) Hypersegmented Neuts Hyposegmented Neuts Hypogranular Neuts Large Granular Lymphs # Lrg Granular Lymphs Hairy Cells Smudge Cells Toxic Granulation Toxic Vacuolation Dohle Bodies Priya Rods Platelet Estimate Hypogranular Platelets Giant Platelets Platelet Satelliting RBC Morphology Polychromasia Hypochromasia Poikilocytosis Basophilic Stippling Anisocytosis Microcytosis Macrocytosis Spherocytes Pappenheimer Bodies Sickle Cells Target Cells Tear Drop Cells Ovalocytes Stomatocytes Galindo-Valencia Bodies Echinocytes Acanthocytes (Spur) Rouleaux RBC Agglutinates Schistocytes Sezary Cell PT (9.0-12.0) Seconds INR (0.9-1.1) Fibrinogen (184-400) mg/dl Sample Site POC pH (7.35-7.45) POC pCO2 (35-46) mmHg POC pO2 (80-95) mmHg POC HCO3 (19-24) alicia/L POC Total CO2 (24-31) mmol/L POC Base Excess (-9-1.8) alicia/L ABG pH (Temp Correct) (7.35-7.45) ABG pCO2 (Temp Corrct (35-46) mmHg POC ABG pO2 at Pt Temp POC ABG O2 Sat (90-95) % Javon Test O2 Delivery Device POC O2 Rate POC FiO2 % Tidal Volume PEEP POC Sodium (135-144) mmol/L Sodium (136-145) mmol/L POC Potassium (3.3-5.0) mmol/L Potassium (3.5-5.1) mmol/L Chloride (98-107) mmol/L Carbon Dioxide (21-32) mmol/L Anion Gap (3-11) BUN (6-23) mg/dl Creatinine (0.6-1.4) mg/dl Est Cr Clr Drug Dosing ml/min Est GFR ( Amer) ml/min Est GFR (Non-Af Amer) ml/min BUN/Creatinine Ratio (10-20) Glucose (70-99(Fasting)) mg/dl POC Glucose (other) (70-99) mg/dl Estimat Average Glucose mg/dl Hemoglobin A1c (4.5-5.6) % Lactate (0.4-2.0) mmol/L Calcium (8.6-10.3) mg/dl Ionized Calcium (1.12-1.32) mmol/L Phosphorus (2.5-4.9) mg/dl Magnesium (1.7-2.4) mg/dl Total Bilirubin (0.2-1.0) mg/dl AST (13-39) U/L ALT (7-52) U/L Alkaline Phosphatase (34-104) U/L Total Protein (6.0-8.3) gm/dl Albumin (3.4-5.0) gm/dl Globulin (2.5-4.0) gm/dl Albumin/Globulin Ratio (0.9-2) Procalcitonin (0-0.5) ng/ml Stool Occult Bld Scrn (Negative) Hep B Core IgM Ab (NON-REACTIVE) Staphylococcus sp PCR (NotDetected) mecA/C-Methicil Resis Gene (NotDetected) Staph epidermidis (PCR) (NotDetected) Bld Cult ID Panel PCR (NotDetected) Blood Parasites ID Blood Type Antibody Screen Crossmatch 03/25/24 03/24/24 03/24/24 Range/Units 08:15 23:08 04:54 WBC 7.01 RBC 2.82 L Hgb 8.1 L 7.7 L POC Hgb (14.0-18.0) g/dl Hct 25.1 L 24.2 L POC Hct (42-52) % MCV 89.0 MCH 28.7 MCHC 32.3 RDW Std Deviation 52.1 H RDW Coeff of Annie 16.1 H Plt Count 157 MPV 9.6 Immature Gran % (Auto) Neut % (Auto) Lymph % (Auto) [place] % (Auto) Eos % (Auto) Baso % (Auto) Neut # (Auto) Lymph # (Auto) [place] # (Auto) Eos # (Auto) Baso # (Auto) Immature Gran # (Auto) Absolute Nucleated RBC Nucleated RBC % (auto) Neutrophils % (Manual) Band Neutrophils % Lymphocytes % (Manual) Prolymphocyte % Reactive Lymphs % (Man) Monocytes % (Manual) Eosinophils % (Manual) Basophils % (Manual) Metamyelocytes % (Man) Myelocytes % (Man) Promyelocytes % (Man) Blast Cells % (Manual) Plasma Cell % (Manual) Other Cells % Nucleated RBC % Neutrophils # (Manual) Band Neutrophils # Total Absolute Neuts Lymphocytes # (Manual) Prolymphocyte # Reactive Lymphs # Total Abs Lymphocytes Monocytes # (Manual) Eosinophils # (Manual) Basophils # (Manual) Metamyelocytes # (Man) Myelocytes # (Manual) Promyelocytes # (Man) Blast Cells # (Man) Plasma Cell # (Manual) Other Cells # Nucleated RBCs # (Man) Hypersegmented Neuts Hyposegmented Neuts Hypogranular Neuts Large Granular Lymphs # Lrg Granular Lymphs Hairy Cells Smudge Cells Toxic Granulation Toxic Vacuolation Dohle Bodies Priya Rods Platelet Estimate Hypogranular Platelets Giant Platelets Platelet Satelliting RBC Morphology Polychromasia Hypochromasia Poikilocytosis Basophilic Stippling Anisocytosis Microcytosis Macrocytosis Spherocytes Pappenheimer Bodies Sickle Cells Target Cells Tear Drop Cells Ovalocytes Stomatocytes Galindo-Valencia Bodies Echinocytes Acanthocytes (Spur) Rouleaux RBC Agglutinates Schistocytes Sezary Cell PT 12.2 H (9.0-12.0) Seconds INR 1.1 (0.9-1.1) Fibrinogen (184-400) mg/dl Sample Site POC pH (7.35-7.45) POC pCO2 (35-46) mmHg POC pO2 (80-95) mmHg POC HCO3 (19-24) alicia/L POC Total CO2 (24-31) mmol/L POC Base Excess (-9-1.8) alciia/L ABG pH (Temp Correct) (7.35-7.45) ABG pCO2 (Temp Corrct (35-46) mmHg POC ABG pO2 at Pt Temp POC ABG O2 Sat (90-95) % Javon Test O2 Delivery Device POC O2 Rate POC FiO2 % Tidal Volume PEEP POC Sodium (135-144) mmol/L Sodium 140 141 (136-145) mmol/L POC Potassium (3.3-5.0) mmol/L Potassium 4.5 3.8 (3.5-5.1) mmol/L Chloride 98 102 (98-107) mmol/L Carbon Dioxide 18 L 19 L (21-32) mmol/L Anion Gap 24 H 20 H (3-11) BUN 82 H D 54 H (6-23) mg/dl Creatinine 12.91 H* D 10.65 H* D (0.6-1.4) mg/dl Est Cr Clr Drug Dosing 9.1 11.1 ml/min Est GFR ( Amer) 4.8 6.1 ml/min Est GFR (Non-Af Amer) 4.2 5.3 ml/min BUN/Creatinine Ratio 6.4 L 5.1 L (10-20) Glucose 108 H 83 (70-99(Fasting)) mg/dl POC Glucose (other) (70-99) mg/dl Estimat Average Glucose mg/dl Hemoglobin A1c (4.5-5.6) % Lactate (0.4-2.0) mmol/L Calcium 9.4 8.9 (8.6-10.3) mg/dl Ionized Calcium (1.12-1.32) mmol/L Phosphorus (2.5-4.9) mg/dl Magnesium 2.4 (1.7-2.4) mg/dl Total Bilirubin (0.2-1.0) mg/dl AST (13-39) U/L ALT (7-52) U/L Alkaline Phosphatase (34-104) U/L Total Protein (6.0-8.3) gm/dl Albumin (3.4-5.0) gm/dl Globulin (2.5-4.0) gm/dl Albumin/Globulin Ratio (0.9-2) Procalcitonin (0-0.5) ng/ml Stool Occult Bld Scrn (Negative) Hep B Core IgM Ab (NON-REACTIVE) Staphylococcus sp PCR (NotDetected) mecA/C-Methicil Resis Gene (NotDetected) Staph epidermidis (PCR) (NotDetected) Bld Cult ID Panel PCR (NotDetected) Blood Parasites ID Blood Type O Positive Antibody Screen NEGATIVE Crossmatch See Detail 03/23/24 03/22/24 03/21/24 Range/Units 05:22 05:43 08:40 WBC 6.56 10.70 10.60 RBC 2.79 L 2.81 L 2.77 L Hgb 8.0 L 8.0 L 8.1 L POC Hgb (14.0-18.0) g/dl Hct 25.5 L 26.0 L 25.3 L POC Hct (42-52) % MCV 91.4 92.5 91.3 MCH 28.7 28.5 29.2 MCHC 31.4 L 30.8 L 32.0 RDW Std Deviation 55.1 H 56.6 H 55.4 H RDW Coeff of Annie 16.6 H 17.2 H 17.2 H Plt Count 203 228 225 MPV 9.2 L 9.5 9.1 L Immature Gran % (Auto) Neut % (Auto) Lymph % (Auto) [place] % (Auto) Eos % (Auto) Baso % (Auto) Neut # (Auto) Lymph # (Auto) [place] # (Auto) Eos # (Auto) Baso # (Auto) Immature Gran # (Auto) Absolute Nucleated RBC 0.03 0.04 Nucleated RBC % (auto) 0.3 0.4 Neutrophils % (Manual) Band Neutrophils % Lymphocytes % (Manual) Prolymphocyte % Reactive Lymphs % (Man) Monocytes % (Manual) Eosinophils % (Manual) Basophils % (Manual) Metamyelocytes % (Man) Myelocytes % (Man) Promyelocytes % (Man) Blast Cells % (Manual) Plasma Cell % (Manual) Other Cells % Nucleated RBC % Neutrophils # (Manual) Band Neutrophils # Total Absolute Neuts Lymphocytes # (Manual) Prolymphocyte # Reactive Lymphs # Total Abs Lymphocytes Monocytes # (Manual) Eosinophils # (Manual) Basophils # (Manual) Metamyelocytes # (Man) Myelocytes # (Manual) Promyelocytes # (Man) Blast Cells # (Man) Plasma Cell # (Manual) Other Cells # Nucleated RBCs # (Man) Hypersegmented Neuts Hyposegmented Neuts Hypogranular Neuts Large Granular Lymphs # Lrg Granular Lymphs Hairy Cells Smudge Cells Toxic Granulation Toxic Vacuolation Dohle Bodies Priya Rods Platelet Estimate Hypogranular Platelets Giant Platelets Platelet Satelliting RBC Morphology Polychromasia Hypochromasia Poikilocytosis Basophilic Stippling Anisocytosis Microcytosis Macrocytosis Spherocytes Pappenheimer Bodies Sickle Cells Target Cells Tear Drop Cells Ovalocytes Stomatocytes Kavithally Bodies Echinocytes Acanthocytes (Spur) Rouleaux RBC Agglutinates Schistocytes Sezary Cell PT (9.0-12.0) Seconds INR (0.9-1.1) Fibrinogen (184-400) mg/dl Sample Site POC pH (7.35-7.45) POC pCO2 (35-46) mmHg POC pO2 (80-95) mmHg POC HCO3 (19-24) alicia/L POC Total CO2 (24-31) mmol/L POC Base Excess (-9-1.8) alicia/L ABG pH (Temp Correct) (7.35-7.45) ABG pCO2 (Temp Corrct (35-46) mmHg POC ABG pO2 at Pt Temp POC ABG O2 Sat (90-95) % Javon Test O2 Delivery Device POC O2 Rate POC FiO2 % Tidal Volume PEEP POC Sodium (135-144) mmol/L Sodium 138 140 138 (136-145) mmol/L POC Potassium (3.3-5.0) mmol/L Potassium 3.6 4.1 4.1 (3.5-5.1) mmol/L Chloride 99 100 99 (98-107) mmol/L Carbon Dioxide 23 20 L 24 (21-32) mmol/L Anion Gap 16 H 20 H 15 H (3-11) BUN 36 H D 59 H 42 H D (6-23) mg/dl Creatinine 7.69 H* D 10.71 H* D 8.07 H* D (0.6-1.4) mg/dl Est Cr Clr Drug Dosing 15.5 11.1 14.8 ml/min Est GFR ( Amer) 9.0 6.1 8.5 ml/min Est GFR (Non-Af Amer) 7.8 5.2 7.3 ml/min BUN/Creatinine Ratio 4.7 L 5.5 L 5.2 L (10-20) Glucose 84 86 92 (70-99(Fasting)) mg/dl POC Glucose (other) (70-99) mg/dl Estimat Average Glucose 94 mg/dl Hemoglobin A1c 4.9 (4.5-5.6) % Lactate (0.4-2.0) mmol/L Calcium 8.9 8.8 8.7 (8.6-10.3) mg/dl Ionized Calcium (1.12-1.32) mmol/L Phosphorus 6.2 H 8.2 H 6.3 H (2.5-4.9) mg/dl Magnesium 2.2 (1.7-2.4) mg/dl Total Bilirubin (0.2-1.0) mg/dl AST (13-39) U/L ALT (7-52) U/L Alkaline Phosphatase (34-104) U/L Total Protein (6.0-8.3) gm/dl Albumin (3.4-5.0) gm/dl Globulin (2.5-4.0) gm/dl Albumin/Globulin Ratio (0.9-2) Procalcitonin (0-0.5) ng/ml Stool Occult Bld Scrn (Negative) Hep B Core IgM Ab (NON-REACTIVE) Staphylococcus sp PCR (NotDetected) mecA/C-Methicil Resis Gene (NotDetected) Staph epidermidis (PCR) (NotDetected) Bld Cult ID Panel PCR (NotDetected) Blood Parasites ID Blood Type Antibody Screen Crossmatch 03/20/24 03/20/24 03/20/24 Range/Units 18:55 18:44 06:36 WBC 10.91 H RBC 3.04 L Hgb 8.8 L POC Hgb (14.0-18.0) g/dl Hct 27.5 L POC Hct (42-52) % MCV 90.5 MCH 28.9 MCHC 32.0 RDW Std Deviation 55.2 H RDW Coeff of Annie 17.2 H Plt Count 274 MPV 9.4 Immature Gran % (Auto) 1.8 Neut % (Auto) 65.9 Lymph % (Auto) 18.3 [place] % (Auto) 9.1 Eos % (Auto) 4.1 Baso % (Auto) 0.8 Neut # (Auto) 7.18 H Lymph # (Auto) 2.00 [place] # (Auto) 0.99 H Eos # (Auto) 0.45 Baso # (Auto) 0.09 Immature Gran # (Auto) 0.20 Absolute Nucleated RBC 0.03 Nucleated RBC % (auto) 0.3 Neutrophils % (Manual) Band Neutrophils % Lymphocytes % (Manual) Prolymphocyte % Reactive Lymphs % (Man) Monocytes % (Manual) Eosinophils % (Manual) Basophils % (Manual) Metamyelocytes % (Man) Myelocytes % (Man) Promyelocytes % (Man) Blast Cells % (Manual) Plasma Cell % (Manual) Other Cells % Nucleated RBC % Neutrophils # (Manual) Band Neutrophils # Total Absolute Neuts Lymphocytes # (Manual) Prolymphocyte # Reactive Lymphs # Total Abs Lymphocytes Monocytes # (Manual) Eosinophils # (Manual) Basophils # (Manual) Metamyelocytes # (Man) Myelocytes # (Manual) Promyelocytes # (Man) Blast Cells # (Man) Plasma Cell # (Manual) Other Cells # Nucleated RBCs # (Man) Hypersegmented Neuts Hyposegmented Neuts Hypogranular Neuts Large Granular Lymphs # Lrg Granular Lymphs Hairy Cells Smudge Cells Toxic Granulation Toxic Vacuolation Dohle Bodies Priya Rods Platelet Estimate Hypogranular Platelets Giant Platelets Platelet Satelliting RBC Morphology Polychromasia Hypochromasia Poikilocytosis Basophilic Stippling Anisocytosis Microcytosis Macrocytosis Spherocytes Pappenheimer Bodies Sickle Cells Target Cells Tear Drop Cells Ovalocytes Stomatocytes Galindo-Valencia Bodies Echinocytes Acanthocytes (Spur) Rouleaux RBC Agglutinates Schistocytes Sezary Cell PT (9.0-12.0) Seconds INR (0.9-1.1) Fibrinogen (184-400) mg/dl Sample Site POC pH (7.35-7.45) POC pCO2 (35-46) mmHg POC pO2 (80-95) mmHg POC HCO3 (19-24) alicia/L POC Total CO2 (24-31) mmol/L POC Base Excess (-9-1.8) alicia/L ABG pH (Temp Correct) (7.35-7.45) ABG pCO2 (Temp Corrct (35-46) mmHg POC ABG pO2 at Pt Temp POC ABG O2 Sat (90-95) % Jvaon Test O2 Delivery Device POC O2 Rate POC FiO2 % Tidal Volume PEEP POC Sodium (135-144) mmol/L Sodium (136-145) mmol/L POC Potassium (3.3-5.0) mmol/L Potassium (3.5-5.1) mmol/L Chloride (98-107) mmol/L Carbon Dioxide (21-32) mmol/L Anion Gap (3-11) BUN (6-23) mg/dl Creatinine (0.6-1.4) mg/dl Est Cr Clr Drug Dosing ml/min Est GFR ( Amer) ml/min Est GFR (Non-Af Amer) ml/min BUN/Creatinine Ratio (10-20) Glucose (70-99(Fasting)) mg/dl POC Glucose (other) (70-99) mg/dl Estimat Average Glucose mg/dl Hemoglobin A1c (4.5-5.6) % Lactate 1.3 (0.4-2.0) mmol/L Calcium (8.6-10.3) mg/dl Ionized Calcium (1.12-1.32) mmol/L Phosphorus (2.5-4.9) mg/dl Magnesium (1.7-2.4) mg/dl Total Bilirubin (0.2-1.0) mg/dl AST (13-39) U/L ALT (7-52) U/L Alkaline Phosphatase (34-104) U/L Total Protein (6.0-8.3) gm/dl Albumin (3.4-5.0) gm/dl Globulin (2.5-4.0) gm/dl Albumin/Globulin Ratio (0.9-2) Procalcitonin 6.00 H (0-0.5) ng/ml Stool Occult Bld Scrn (Negative) Hep B Core IgM Ab (NON-REACTIVE) Staphylococcus sp PCR DETECTED A (NotDetected) mecA/C-Methicil Resis Gene DETECTED A (NotDetected) Staph epidermidis (PCR) DETECTED A (NotDetected) Bld Cult ID Panel PCR See PCR Comment (NotDetected) Blood Parasites ID Blood Type Antibody Screen Crossmatch 03/20/24 03/18/24 Range/Units 05:31 09:34 WBC Cancelled RBC Cancelled Hgb Cancelled POC Hgb (14.0-18.0) g/dl Hct Cancelled POC Hct (42-52) % MCV Cancelled MCH Cancelled MCHC Cancelled RDW Std Deviation Cancelled RDW Coeff of Annie Cancelled Plt Count Cancelled MPV Cancelled Immature Gran % (Auto) Cancelled Neut % (Auto) Cancelled Lymph % (Auto) Cancelled [place] % (Auto) Cancelled Eos % (Auto) Cancelled Baso % (Auto) Cancelled Neut # (Auto) Cancelled Lymph # (Auto) Cancelled [place] # (Auto) Cancelled Eos # (Auto) Cancelled Baso # (Auto) Cancelled Immature Gran # (Auto) Cancelled Absolute Nucleated RBC Cancelled Nucleated RBC % (auto) Cancelled Neutrophils % (Manual) Cancelled Band Neutrophils % Cancelled Lymphocytes % (Manual) Cancelled Prolymphocyte % Cancelled Reactive Lymphs % (Man) Cancelled Monocytes % (Manual) Cancelled Eosinophils % (Manual) Cancelled Basophils % (Manual) Cancelled Metamyelocytes % (Man) Cancelled Myelocytes % (Man) Cancelled Promyelocytes % (Man) Cancelled Blast Cells % (Manual) Cancelled Plasma Cell % (Manual) Cancelled Other Cells % Cancelled Nucleated RBC % Cancelled Neutrophils # (Manual) Cancelled Band Neutrophils # Cancelled Total Absolute Neuts Cancelled Lymphocytes # (Manual) Cancelled Prolymphocyte # Cancelled Reactive Lymphs # Cancelled Total Abs Lymphocytes Cancelled Monocytes # (Manual) Cancelled Eosinophils # (Manual) Cancelled Basophils # (Manual) Cancelled Metamyelocytes # (Man) Cancelled Myelocytes # (Manual) Cancelled Promyelocytes # (Man) Cancelled Blast Cells # (Man) Cancelled Plasma Cell # (Manual) Cancelled Other Cells # Cancelled Nucleated RBCs # (Man) Cancelled Hypersegmented Neuts Cancelled Hyposegmented Neuts Cancelled Hypogranular Neuts Cancelled Large Granular Lymphs Cancelled # Lrg Granular Lymphs Cancelled Hairy Cells Cancelled Smudge Cells Cancelled Toxic Granulation Cancelled Toxic Vacuolation Cancelled Dohle Bodies Cancelled Priya Rods Cancelled Platelet Estimate Cancelled Hypogranular Platelets Cancelled Giant Platelets Cancelled Platelet Satelliting Cancelled RBC Morphology Cancelled Polychromasia Cancelled Hypochromasia Cancelled Poikilocytosis Cancelled Basophilic Stippling Cancelled Anisocytosis Cancelled Microcytosis Cancelled Macrocytosis Cancelled Spherocytes Cancelled Pappenheimer Bodies Cancelled Sickle Cells Cancelled Target Cells Cancelled Tear Drop Cells Cancelled Ovalocytes Cancelled Stomatocytes Cancelled Galindo-Valencia Bodies Cancelled Echinocytes Cancelled Acanthocytes (Spur) Cancelled Rouleaux Cancelled RBC Agglutinates Cancelled Schistocytes Cancelled Sezary Cell Cancelled PT (9.0-12.0) Seconds INR (0.9-1.1) Fibrinogen (184-400) mg/dl Sample Site POC pH (7.35-7.45) POC pCO2 (35-46) mmHg POC pO2 (80-95) mmHg POC HCO3 (19-24) alicia/L POC Total CO2 (24-31) mmol/L POC Base Excess (-9-1.8) alicia/L ABG pH (Temp Correct) (7.35-7.45) ABG pCO2 (Temp Corrct (35-46) mmHg POC ABG pO2 at Pt Temp POC ABG O2 Sat (90-95) % Javon Test O2 Delivery Device POC O2 Rate POC FiO2 % Tidal Volume PEEP POC Sodium (135-144) mmol/L Sodium 137 (136-145) mmol/L POC Potassium (3.3-5.0) mmol/L Potassium 4.5 (3.5-5.1) mmol/L Chloride 97 L (98-107) mmol/L Carbon Dioxide 22 (21-32) mmol/L Anion Gap 18 H (3-11) BUN 71 H D (6-23) mg/dl Creatinine 11.37 H* D (0.6-1.4) mg/dl Est Cr Clr Drug Dosing 10.6 ml/min Est GFR ( Amer) 5.6 ml/min Est GFR (Non-Af Amer) 4.9 ml/min BUN/Creatinine Ratio 6.2 L (10-20) Glucose 86 (70-99(Fasting)) mg/dl POC Glucose (other) (70-99) mg/dl Estimat Average Glucose mg/dl Hemoglobin A1c (4.5-5.6) % Lactate (0.4-2.0) mmol/L Calcium 9.0 (8.6-10.3) mg/dl Ionized Calcium (1.12-1.32) mmol/L Phosphorus 6.8 H (2.5-4.9) mg/dl Magnesium 2.5 H (1.7-2.4) mg/dl Total Bilirubin 1.0 (0.2-1.0) mg/dl AST 31 (13-39) U/L ALT 24 (7-52) U/L Alkaline Phosphatase 105 H (34-104) U/L Total Protein 7.3 (6.0-8.3) gm/dl Albumin 3.7 (3.4-5.0) gm/dl Globulin 3.6 (2.5-4.0) gm/dl Albumin/Globulin Ratio 1.0 (0.9-2) Procalcitonin (0-0.5) ng/ml Stool Occult Bld Scrn (Negative) Hep B Core IgM Ab NON-REACTIVE (NON-REACTIVE) Staphylococcus sp PCR (NotDetected) mecA/C-Methicil Resis Gene (NotDetected) Staph epidermidis (PCR) (NotDetected) Bld Cult ID Panel PCR (NotDetected) Blood Parasites ID Cancelled Blood Type Antibody Screen Crossmatch Diagnostic Findings Abdomen/Pelvis CT 03/17/24 10:14 CT abd pelvis wo con CLINICAL HISTORY: poss obstruc, dialysis pt TECHNIQUE: Helical axial images of the abdomen and pelvis were obtained. Automated dose lowering techniques and/or adjustment according to patient size were utilized for this exam. This exam was performed without intravenous contrast. CT DOSE: 2201.42 mGy.cm COMPARISON: None available at the time of this dictation. FINDINGS: Lower chest: No acute abnormality. Liver: Unremarkable. No focal lesions are seen. Gallbladder and biliary tree: No calcified gallstones. Normal caliber wall. No intra- or extrahepatic biliary ductal dilation. Pancreas: Unremarkable, no focal lesions. Spleen: Splenule is incidentally noted. Adrenals: Unremarkable. Kidneys and ureters: Atrophic bilateral kidneys noted. An atrophic transplant kidney is noted in the left lower quadrant. Bladder: Limited evaluation due to underdistention. Reproductive organs: Unremarkable. Bowel: Numerous dilated loops of large and small bowel are seen. There is apparent tethering of 2 loops of small bowel in one loop of large bowel in the right lower quadrant although this does not represent a transition point as distal loops of bowel are also dilated. Lymph nodes Retroperitoneal: Unremarkable. Pelvic: Unremarkable. Mesenteric: Unremarkable. Peritoneum: Peritoneal catheter is seen. No significant free fluid. Vessels: Unremarkable. Abdominal wall: Unremarkable. Bones: Degenerative changes in the visualized spine. IMPRESSION: Numerous dilated loops of large and small bowel without a firm transition point. Findings may represent ileus versus partial obstruction. There may be a focus of adhesions in the right lower quadrant. ACT 112: Negative or not required by law. Electronically signed by: David Torrez M.D. 03/17/2024 10:53 AM KUB X-Ray 03/22/24 14:02 KUB HISTORY: bowel obstruction COMPARISON: KUB 03/21/2024. FINDINGS: Nasogastric tube terminates in the gastric antrum. Dilated gas-filled loops of bowel are again seen throughout the abdomen. This is similar to the prior study. A left-sided peritoneal dialysis catheter is again noted and terminates in the right lower quadrant. No renal calculi. No ureteral calculi. No pneumoperitoneum or pneumatosis. IMPRESSION: 1. Nasogastric tube terminates in the gastric antrum. 2. Multiple dilated gas-filled loops of large and small bowel are not significantly changed. This could represent an ileus or bowel obstruction. ACT 112: Negative or not required by law. Electronically signed by: Yves Perez M.D. 03/22/2024 5:08 PM Chest X-Ray 03/25/24 11:42 SINGLE VIEW CHEST CLINICAL HISTORY: Anuria. Aphasia. FINDINGS: 3 AP, portable, semierect chest radiographs are compared to study dated 03/21/2024. Correlation is made with abdominal CT dated 03/17/2024. A right internal jugular central venous catheter is unchanged in position. The heart is top normal for projection. The pulmonary vasculature is noncongested. There are low lung volumes and bibasilar atelectasis. No airspace consolidation or large pleural effusion is identified. No pneumothorax is seen. The bony thorax is grossly intact. IMPRESSION: Low lung volumes with no active disease in the chest. ACT 112: Negative or not required by law. Electronically signed by: Ervin Andersen M.D. 03/25/2024 3:36 PM PG Care Time/CCT Total # of Minutes Spent Total Time Spent with Patient: Total time spent is greater than 50% in coordination of care (as documented) at patient's floor/unit and/or counseling patient: I spent 60 minutes overall addressing this case: 15 min in medical data review/discussion with referring provider(s) and/or preparation for the visit 20 min in direct interaction with the patient/exam 000 min in Advance Care Planning/Goals of Care discussions as detailed above in note (must be >16min) 10 min in subsequent review and synthesis of assessment and plan 15 min communicating with other providers regarding the patient's case: [place] [address] IN/OBS CONSULT LVL 4,60M Patient Type New History Comprehensive Exam Comprehensive Medical Decision Making High Complexity Diagnoses Weakness generalized R53.1 Altered mental status R41.82 Palliative care by specialist Z51.5
--- NOTE | 2024-03-26 17:15 | Communication Note ---
Date of Service: March 26, 2024 Patient has long going massive blood loss related to severe gastritis. He has now received 7 units of packed RBCs and we are going to give an additional 2 units of packed RBCs. Levophed requirements are going up. Patient on a fixed dose of vasopressin. I had a lengthy discussion with the patient's mother and sister over the phone. We discussed options including continuing current management, pursuing transfer to tertiary center for possible gastrectomy or transitioning to comfort measures given the severity of his comorbid conditions. Both the daughter and the mother are in agreement that they would like to pursue transfer if possible. They understand that he is gravely ill and may not survive this hospitalization and transfer may not necessarily alter the course of his condition. Patient remains on fentanyl and Versed for ventilator synchrony and patient comfort. I am rechecking an ABG, CBC and lactate levels. He remains unresponsive on exam likely due to sedation. He is intubated requiring minimal ventilator support. He is mainly intubated for airway protection due to severe hematemesis and ongoing GI bleed. Reach out to the transfer center will contact [facility] general surgery and [facility] ICU services and discussed the case with them. CRITICAL CARE TIME - I have personally spent 49 minutes of critical care time in the direct management of this patient. This is a life/limb threatening event. This includes time spent evaluating patient, direct bedside care, chart review, placing orders, interpretation of diagnostic studies, discussion with consultants, patient, and family members, as well as other required patient management activities. This time is exclusive of all separately billable procedures, and teaching time and separate from and in addition to any other critical care service time. Coding Level of Care Code 44242 CRITICAL CARE EA ADD 30M
[2024-03-26 17:22] LABS: Microcytosis Present; Polychromasia 1+
[2024-03-26 17:30] LABS: iSTAT Art Bld Gas pCO2 Correct 38 mmHg (35-46); iSTAT Art Bld Gas pH Corrected 7.376 (7.35-7.45); iSTAT Arterial Blood Gas HCO3 22 meg/L (19-24); iSTAT Arterial Blood Gas pCO2 35 mmHg (35-46); iSTAT Arterial Blood Gas pO2 64 mmHg (80-95); iSTAT Arterial Blood Gas pO2 C 71; iSTAT Carbon Dioxide 23 mmol/L (24-31); iSTAT FiO2 30 %; iSTAT Hematocrit 19 % (42-52); iSTAT Hemoglobin 6.5 g/dl (14.0-18.0); iSTAT Potassium 3.6 mmol/L (3.3-5.0); iSTAT Site Art Line; iSTAT Sodium 134 mmol/L (135-144)
[2024-03-26] MEDS: CALCIUM GLUCONATE 1,000 MG/60 ML BAG IV SCH (17:41)
[2024-03-26] MEDS: PLASMA-LYTE A 250 ML IV ONE (18:03)
--- NOTE | 2024-03-26 20:24 | Communication Note ---
Date of Service: March 26, 2024 Current Inpatient Medications Acetaminophen (Acetaminophen 325 Mg Tab) 650 mg PO Q4H PRN PRN Reason: pain/fever Stop: 04/16/24 20:30 Dextrose (Dextrose 50% 50 Ml Syringe) 25 - 50 ml IV UD PRN; Protocol PRN Reason: Hypoglycemia Protocol Stop: 04/16/24 21:04 Fentanyl Citrate (Fentanyl Bolus From Bag) 50 mcg IV Q60M PRN PRN Reason: Pain or Agitation Stop: 04/08/24 20:35 Last Admin: 03/26/24 00:00 Dose: 50 mcg Glucagon (Glucagon For Inj 1 Mg Vial) 1 mg SQ UD PRN; Protocol PRN Reason: Hypoglycemia Protocol Stop: 04/16/24 21:04 Glucose (Glucose 40% Gel 15 Gm Tube) 15 - 30 gm PO UD PRN; Protocol PRN Reason: Hypoglycemia Protocol Stop: 04/16/24 21:04 Glucose (Glucose 10 Tab/Tube) 4 - 8 tab PO UD PRN; Protocol PRN Reason: Hypoglycemia Treatment Stop: 04/16/24 21:04 Heparin Sodium (Beef Lung) (Heparin 10 Unit/Ml 5 Ml Flush) 5 ml FLUSH PRN PRN PRN Reason: Flush Stop: 04/25/24 04:22 Heparin Sodium (Porcine) (Heparin Sod 5,000 Unit/0.5 Ml Vial) 7,500 units SQ Q8 HANSA Stop: 04/17/24 13:59 Last Admin: 03/24/24 21:17 Dose: 7,500 units Promethazine HCl 6.25 mg/ (Sodium Chloride) 50.25 mls @ 201 mls/hr IV Q6H PRN PRN Reason: Nausea And Vomiting Stop: 04/19/24 14:31 Piperacillin Sod/Tazobactam (Sod 4.5 gm/ Dextrose) 100 mls @ 25 mls/hr IV Q12H HANSA; Protocol Stop: 03/28/24 02:59 Last Infusion: 03/26/24 07:15 Dose: Infused Pantoprazole Sodium 40 mg/ (Dextrose) 100 mls @ 20 mls/hr IV Q5H HANSA Stop: 04/23/24 22:59 Last Admin: 03/26/24 15:36 Dose: 8 mg/hr, 20 mls/hr Sodium Chloride (Nss) 1,000 mls @ 60 mls/hr IV .[id number] HANSA Stop: 04/24/24 08:14 Last Admin: 03/26/24 06:29 Dose: 60 mls/hr Norepinephrine Bitartrate (Levophed/D5w) 4 mg in 250 mls @ 84.225 mls/hr IV .Q2H59M [facility], [facility]; Protocol Stop: 04/24/24 14:29 Last Admin: 03/26/24 17:55 Dose: Not Given Midazolam HCl (Versed) 125 mg in 250 mls @ 5 mls/hr IV .Q50H [facility], [facility]1983; Protocol Stop: 04/24/24 19:44 Last Titration: 03/26/24 07:15 Dose: 2.5 mg/hr, 5 mls/hr Acetaminophen (Ofirmev) 1,000 mg in 100 mls @ 400 mls/hr IV Q8H PRN PRN Reason: Fever Stop: 03/28/24 20:31 Last Infusion: 03/26/24 16:47 Dose: Infused Fentanyl Citrate (Fentanyl Citrate) 2,500 mcg in 250 mls @ 7.5 mls/hr IV .[id number] [facility], [facility]1983; Protocol Stop: 04/08/24 20:44 Last Titration: 03/26/24 11:50 Dose: 75 mcg/hr, 7.5 mls/hr Vasopressin 20 units/ Sodium (Chloride) 101 mls @ 12.12 mls/hr IV .Q8H20M [facility], [facility]–1983 Stop: 04/24/24 23:29 Last Admin: 03/26/24 13:31 Dose: 0.04 unit/min, 12.1 mls/hr Sodium Chloride (Nss) 250 mls @ 15 mls/hr IV .[id number] PRN PRN Reason: For Transfusion Duration Stop: 03/27/24 03:03 Metoprolol Tartrate (Metoprolol Tartrate 1 Mg/Ml Vial) 2.5 mg IV Q6 PRN PRN Reason: Tachycardia HR>120 Stop: 04/19/24 17:59 Midazolam HCl (Midazolam Bolus From Bag) 2 mg IV Q60M PRN PRN Reason: Sedation Stop: 04/24/24 19:38 Last Admin: 03/26/24 00:00 Dose: 2 mg Midodrine (Midodrine Hcl 2.5 Mg Tab) 5 mg PO TID@0800,1200,1700 [facility], [facility]1983 Stop: 04/16/24 16:59 Last Admin: 03/24/24 17:34 Dose: Not Given Miscellaneous (Carbohydrates For Hypoglycemia ) 15 - 30 gm PO UD PRN PRN Reason: Hypoglycemia Protocol Stop: 04/16/24 21:04 Ondansetron HCl (Ondansetron Inj 2 Mg/Ml 2 Ml Vial) 4 mg IV Q6H PRN PRN Reason: Nausea Stop: 04/16/24 14:03 Last Admin: 03/20/24 12:13 Dose: 4 mg Propofol (Propofol Bolus From Bag) 20 mg IV Q5M PRN PRN Reason: Sedation Stop: 03/28/24 19:38
--- NOTE | 2024-03-26 20:32 | Discharge Summary ---
Date of Service March 26, 2024 Admission HPI Per Admitting Provider This is a 44 y/o male with ESRD on PD, recent Left MCA stroke s/p unsuccessful thrombectomy with residual right hemiparesis and expressive aphasia, mitral leaflet non-mobile calcified mass, PFO, granulomastosis w/ polyangiitis, hx failed renal transplant, and other history as outlined below who presented to the ED today from [facility] after he developed vomiting and progressive abdominal distention since last night. Pt was [place] [facility] [place] 03/16/24 after he presented with new onset expressive aphasia. Work-up showed an acute left MCA infarct with calcific thrombus at the left MCA distal M1 segment. He was not a candidate for tPA; revascularization was attempted unsuccessfully. ALICIA on 03/08/24 confirmed the presence of a mitral leaflet non-mobile calcified mass that was potentially thrombogenic. He was also noted to have a small PFO with an atrial septal aneurysm. Antithrombotic regimen was initially implemented with aspirin and Plavix, then aspirin and Brilinta due to low PRU. Subsequently, he was changed to aspirin monotherapy, then aspirin and Eliquis, and was ultimately discharged on Eliquis alone. Hospital course was also complicated by UGIB with EGD showing gastritis. Transitioned back to PD on 03/04 but then back to CRRT due to poor ultrafiltration. At time of discharge, he was on HD on // with a plan to resume PD when pt returned home from rehab. Pt was NPO initially at [facility] but had been taking oral intake for the last few days. At time of discharge, he was noted to have severe expressive aphasia and persistent right sided hemiparesis but did response to yes/no questions. He was transferred to [facility] yesterday evening, arriving around 1900. Notes from [facility] were reviewed. Around 2099, pt was given his evening medications in pudding but after the second pill, he started vomiting brown liquid emesis with reported 1000 ml out. Around 2 am, 5:30 am, 6:00 am, and 6:30 am, he had an additional 250 ml of emesis each time. He was evaluated by the physician shortly after the last episode of emesis who recommended transfer to the ED at [facility]. Since being in the ED, pt vomited another 500 ml of brown emesis while the NGT was being placed. Since the NGT has placed, he has had at least another 500 ml out. Limited history from patient due to the expressive aphasia, but he denies pain at present. He has had some relief of discomfort with the NGT placement. Records including pt's discharge summary from [facility] [place] 03/[place] were reviewed. Last HD note reviewed with last HD on 03/15/24 - 246 min, -1.93 kg. CTA Brain 02/24/24: 1. Calcific thrombus at the left MCA distal M1 segment, with distal reconstitution. 2. Definite occlusion of a left MCA M2 to M3 branch. Possible occlusion of an additional left M2 to M3 branch. 3. origin of the right VET TECH. MRI Brain 02/24/24: IMPRESSION: Acute/subacute left MCA territory infarction involving a large portion of the left cerebral hemisphere without evidence of hemorrhagic transformation or significant associated mass effect. Curvilinear focus of susceptibility along the distal M1/proximal M2 segments of the left middle cerebral artery, corresponding to the location of a suspected calcified thrombus identified on CTA head/neck from 02/24/2024. TTE: 02/26/24: The examination is limited quality but adequate for evaluation of the referral indication. The qualitative LV ejection fraction is 65-69% (normal). No LV segmental wall motion abnormalities. There is an echodense area under the posterior mitral annulus on the atrial aspect of the valve which is consistent with mitral annular calcium. This was not appreciated well on study dated 10-29-2023, but is present on study 11-01-2022. There is no ASD/PFO by agitated saline contrast at rest or with valsalva manuever ALICIA 03/08/24: The examination is adequate to evaluate the referral indication. The qualitative LV ejection fraction is 60-64% (normal). No LV segmental wall m otion abnormalities. There is a round, well circumscribed calcified nodule on the P2 segment of the mitral valve measuring 1.2 x 0.93 cm. Exact etiology cannot be determined by echo but there is no other significant calcification in the annulus to suggest that this is MAC. There is an atrial septal aneurysm. There is a small patent foramen ovale by color flow Doppler but no significant right to left was demonstrated with administration of agitated saline. Findings reviewed with primary team at bedside. EGD 03/01/24 due to coffee-ground emesis in NGT: Impression: - Normal esophagus. - Z-line regular, 44 cm from the incisors. - Gastritis. - Normal examined duodenum. - No specimens collected. Admission Exam Per Admitting Provider General: awake, answers yes/no questions by nodding/shaking head HEENT: no scleral icterus, NGT in place with dark brown liquid drainage Neck: supple, trachea midline Heart: regular but tachycardic Lungs: clear and slightly diminished on the anterior but limited inspiratory effort Abdomen: +distended, +Hypoactive BS, generalized tenderness Extremities: right LE in boot, no pitting pedal edema noted Neurologic: right hemiparesis, nonverbal Skin: warm, dry, no jaundice Principal Diagnosis Hemorrhagic gastritis Acute blood loss anemia Possible Sepsis Ileus/Partial Small Bowel Obstruction Recent L MCA CVA ESRD on PD Discharge Data Allergies Allergy/AdvReac Type Severity Reaction Status Date / Time No Known Allergies Allergy Verified 03/17/24 11:47 Consultations 03/17/24 11:24 ED Decision to Admit Stat 03/17/24 13:55 Consult [employer] Technician Routine 03/17/24 14:04 Consult General Surgery Routine Consult Nephrology Routine 03/17/24 21:28 Consult [employer] Field Technician Routine 03/25/24 07:58 Consult Gastroenterology Routine 03/25/24 08:00 Consult Infectious Diseases Routine 03/25/24 10:46 Consult Otolaryngology (Head and Neck) Routine 03/25/24 13:43 Consult [employer] Field Technician Routine 03/26/24 10:53 Consult Palliative Care Routine 03/26/24 18:32 Burn CD for patient Stat 03/26/24 18:36 Radiology Transfer Of Images Stat Procedures Performed Operation Date: 03/26/24 16:45 Actual Procedures p EGD Hemostasis - Yassine Calixto MD Ordered Studies 03/17/24 10:14 CT abd pelvis wo con Stat 03/25/24 22:03 US point of care ultrasound Urgent Laboratory Results WBC 15.32 K/ul (4.8-10.8) H 03/26/24 16:29 RBC 2.54 M/uL (4.70-6.10) L 03/26/24 16:29 Hgb 7.3 g/dl (14.0-18.0) L 03/26/24 16:29 POC Hgb 6.5 g/dl (14.0-18.0) L* 03/26/24 17:19 Hct 22.0 % (42.0-52.0) L 03/26/24 16: POC Hct 19 % (42-52) L* 03/26/24 17:19 MCV 86.6 fL (80.0-100.0) 03/26/24 16: MCH 28.7 pg (25.0-34.0) 03/26/24 16: MCHC 33.2 g/dL (32.0-36.0) 03/26/24 16: RDW Std Deviation 50.6 fL (36.4-46.3) H 03/26/24 16: RDW Coeff of Annie 16.4 % (11.5-14.5) H 03/26/24: Plt Count 185 K/uL (130-400) 03/26/24 16: MPV 10.3 fL (9.4-12.4) 03/26/24 16: Immature Gran % (Auto) 2.2 % 03/26/24: Neut % (Auto) 59.8 % 03/26/24 16: Lymph % (Auto) 20.4 % 03/26/24 16: [place] % (Auto) 13.0 % 03/26/24 16: Eos % (Auto) 3.9 % 03/26/24: Baso % (Auto) 0.7 % 03/26/24: Neut # (Auto) 9.18 K/uL (1.40-6.50) H 03/26/24 16: Lymph # (Auto) 3.12 K/uL (1.20-3.40) 03/26/24 16: [place] # (Auto) 1.99 K/uL (0.11-0.59) H 03/26/24 16: Eos # (Auto) 0.59 K/uL (0.00-0.50) H 03/26/24: Baso # (Auto) 0.10 K/uL (0.00-0.20) 03/26/24 16: Immature Gran # (Auto) 0.34 K/uL (0.01-0.20) H 03/26/24 16: Absolute Nucleated RBC 0.02 K/uL (0.00-0.12) 03/25/24 19:41 Nucleated RBC % (auto) 0.2 % 03/25/24 19:41 Neutrophils % (Manual) Cancelled 03/20/24 05:31 Band Neutrophils % Cancelled 03/20/24 05:31 Lymphocytes % (Manual) Cancelled 03/20/24 05:31 Prolymphocyte % Cancelled 03/20/24 05:31 Reactive Lymphs % (Man) Cancelled 03/20/24 05:31 Monocytes % (Manual) Cancelled 03/20/24 05:31 Eosinophils % (Manual) Cancelled 03/20/24 05:31 Basophils % (Manual) Cancelled 03/20/24 05:31 Metamyelocytes % (Man) Cancelled 03/20/24 05:31 Myelocytes % (Man) Cancelled 03/20/24 05:31 Promyelocytes % (Man) Cancelled 03/20/24 05:31 Blast Cells % (Manual) Cancelled 03/20/24 05:31 Plasma Cell % (Manual) Cancelled 03/20/24 05:31 Other Cells % Cancelled 03/20/24 05:31 Nucleated RBC % Cancelled 03/20/24 05:31 Neutrophils # (Manual) Cancelled 03/20/24 05:31 Band Neutrophils # Cancelled 03/20/24 05:31 Total Absolute Neuts Cancelled 03/20/24 05:31 Lymphocytes # (Manual) Cancelled 03/20/24 05:31 Prolymphocyte # Cancelled 03/20/24 05:31 Reactive Lymphs # Cancelled 03/20/24 05:31 Total Abs Lymphocytes Cancelled 03/20/24 05:31 Monocytes # (Manual) Cancelled 03/20/24 05:31 Eosinophils # (Manual) Cancelled 03/20/24 05:31 Basophils # (Manual) Cancelled 03/20/24 05:31 Metamyelocytes # (Man) Cancelled 03/20/24 05:31 Myelocytes # (Manual) Cancelled 03/20/24 05:31 Promyelocytes # (Man) Cancelled 03/20/24 05:31 Blast Cells # (Man) Cancelled 03/20/24 05:31 Plasma Cell # (Manual) Cancelled 03/20/24 05:31 Other Cells # Cancelled 03/20/24 05:31 Nucleated RBCs # (Man) Cancelled 03/20/24 05:31 Hypersegmented Neuts Cancelled 03/20/24 05:31 Hyposegmented Neuts Cancelled 03/20/24 05:31 Hypogranular Neuts Cancelled 03/20/24 05:31 Large Granular Lymphs Cancelled 03/20/24 05:31 # Lrg Granular Lymphs Cancelled 03/20/24 05:31 Hairy Cells Cancelled 03/20/24 05:31 Smudge Cells Cancelled 03/20/24 05:31 Toxic Granulation Cancelled 03/20/24 05:31 Toxic Vacuolation Cancelled 03/20/24 05:31 Dohle Bodies Cancelled 03/20/24 05:31 Priya Rods Cancelled 03/20/24 05:31 Platelet Estimate Cancelled 03/20/24 05:31 Hypogranular Platelets Cancelled 03/20/24 05:31 Giant Platelets Cancelled 03/20/24 05:31 Platelet Satelliting Cancelled 03/20/24 05:31 RBC Morphology Cancelled 03/20/24 05:31 Polychromasia 1+ 03/26/24 16:29 Hypochromasia Cancelled 03/20/24 05:31 Poikilocytosis Cancelled 03/20/24 05:31 Basophilic Stippling Cancelled 03/20/24 05:31 Anisocytosis Cancelled 03/20/24 05:31 Microcytosis Present 03/26/24 16:29 Macrocytosis Cancelled 03/20/24 05:31 Spherocytes Cancelled 03/20/24 05:31 Pappenheimer Bodies Cancelled 03/20/24 05:31 Sickle Cells Cancelled 03/20/24 05:31 Target Cells Cancelled 03/20/24 05:31 Tear Drop Cells Cancelled 03/20/24 05:31 Ovalocytes Cancelled 03/20/24 05:31 Stomatocytes Cancelled 03/20/24 05:31 Galindo-Wilsall Bodies Cancelled 03/20/24 05:31 Echinocytes Cancelled 03/20/24 05:31 Acanthocytes (Spur) Cancelled 03/20/24 05:31 Rouleaux Cancelled 03/20/24 05:31 RBC Agglutinates Cancelled 03/20/24 05:31 Schistocytes Cancelled 03/20/24 05:31 Sezary Cell Cancelled 03/20/24 05:31 PT 12.7 Seconds (9.0-12.0) H 03/25/24 19:40 INR 1.2 (0.9-1.1) H 03/25/24 19:40 APTT 33 Seconds (21-31) H 03/17/24 09:55 PTT Ratio 1.2 03/17/24 09:55 Fibrinogen 504 mg/dl (184-400) H 03/25/24 19:40 Sample Site Art Line 03/26/24 17:19 POC pH 7.40 (7.35-7.45) 03/26/24 17:19 POC pCO2 35 mmHg (35-46) 03/26/24 17:19 POC pO2 64 mmHg (80-95) L 03/26/24 17:19 POC HCO3 22 alicia/L (19-24) 03/26/24 17:19 POC Total CO2 23 mmol/L (24-31) L 03/26/24 17:19 POC Base Excess -3.0 alicia/L (-9-1.8) 03/26/24 17:19 ABG pH (Temp Correct) 7.376 (7.35-7.45) 03/26/24 17:19 ABG pCO2 (Temp Corrct 38 mmHg (35-46) 03/26/24 17:19 POC ABG pO2 at Pt Temp 71 03/26/24 17:19 POC ABG O2 Sat 92.0 % (90-95) 03/26/24 17:19 Javon Test NA 03/26/24 17:19 O2 Delivery Device Ventilator 03/26/24 17:19 POC O2 Rate 24 03/26/24 17:19 POC FiO2 30 % 03/26/24 17:19 Tidal Volume 420 03/26/24 17:19 PEEP 5 03/26/24 17:19 POC Sodium 134 mmol/L (135-144) L 03/26/24 17:19 Sodium 136 mmol/L (136-145) 03/26/24 04:41 POC Potassium 3.6 mmol/L (3.3-5.0) 03/26/24 17:19 Potassium 4.0 mmol/L (3.5-5.1) 03/26/24 04:41 Chloride 100 mmol/L (98-107) 03/26/24 04:41 Carbon Dioxide 19 mmol/L (21-32) L 03/26/24 04:41 Anion Gap 17 (3-11) H 03/26/24 04:41 BUN 63 mg/dl (6-23) H 03/26/24 04:41 Creatinine 9.34 mg/dl (0.6-1.4) H* D 03/26/24 04:41 Est Cr Clr Drug Dosing 12.6 ml/min 03/26/24 04:41 Est GFR ( Amer) 7.1 ml/min 03/26/24 04:41 Est GFR (Non-Af Amer) 6.2 ml/min 03/26/24 04:41 BUN/Creatinine Ratio 6.7 (10-20) L 03/26/24 04:41 Glucose 146 mg/dl (70-99(Fasting)) H 03/26/24 04:41 POC Glucose 185 mg/dl (70-99) H 03/26/24 19:05 POC Glucose (other) 136 mg/dl (70-99) H 03/26/24 00:20 Estimat Average Glucose 94 mg/dl 03/21/24 08:40 Hemoglobin A1c 4.9 % (4.5-5.6) 03/21/24 08:40 Lactate 1.0 mmol/L (0.4-2.0) 03/26/24 17:30 Calcium 8.3 mg/dl (8.6-10.3) L 03/26/24 04:41 Ionized Calcium 1.13 mmol/L (1.12-1.32) 03/25/24 19:41 Phosphorus 7.3 mg/dl (2.5-4.9) H 03/26/24 04:41 Magnesium 2.0 mg/dl (1.7-2.4) 03/26/24 04:41 Total Bilirubin 1.6 mg/dl (0.2-1.0) H 03/26/24 04:41 AST 47 U/L (13-39) H 03/26/24 04:41 ALT 41 U/L (7-52) 03/26/24 04:41 Alkaline Phosphatase 105 U/L (34-104) H 03/26/24 04:41 Lactate Dehydrogenase 179 U/L (86-244) 03/26/24 17:29 Total Protein 6.0 gm/dl (6.0-8.3) 03/26/24 04:41 Albumin 3.2 gm/dl (3.4-5.0) L 03/26/24 04:41 Globulin 2.8 gm/dl (2.5-4.0) 03/26/24 04:41 Albumin/Globulin Ratio 1.1 (0.9-2) 03/26/24 04:41 Lipase 223 U/L (11-82) H 03/17/24 09:55 Procalcitonin 6.00 ng/ml (0-0.5) H 03/20/24 18:44 Random Cortisol 21.38 mcg/dl 03/17/24 09:55 Nasal Screen MRSA (PCR) Negative (Negative) 03/17/24 15:43 Stool Occult Bld Scrn Positive (Negative) A 03/26/24 Unknown Hep Bs Antigen Negative (Negative) 03/18/24 09:34 Hep Bs Antibody Non-Immune 03/18/24 09:34 Hep Bs Antibody, Quant 3.80 mIU/mL (>or=10mIU/mL Immune) 03/18/24 09:34 Hep B Core IgM Ab NON-REACTIVE (NON-REACTIVE) 03/18/24 09:34 SARS-CoV-2, RNA, NAAT NEGATIVE (NEGATIVE) 03/17/24 10:10 Staphylococcus sp PCR DETECTED (NotDetected) A 03/20/24 18:55 mecA/C-Methicil Resis Gene DETECTED (NotDetected) A 03/20/24 18:55 Staph epidermidis (PCR) DETECTED (NotDetected) A 03/20/24 18:55 Bld Cult ID Panel PCR See PCR Comment (NotDetected) 03/20/24 18:55 Blood Parasites ID Cancelled 03/20/24 05:31 Blood Type O Positive 03/24/24 23:08 Blood Type Recheck O Positive 03/17/24 16:40 Antibody Screen NEGATIVE 03/24/24 23:08 Crossmatch See Detail 03/24/24 23:08 Impressions Abdomen/Pelvis CT 03/17/24 10:14 CT abd pelvis wo con CLINICAL HISTORY: poss obstruc, dialysis pt TECHNIQUE: Helical axial images of the abdomen and pelvis were obtained. Automated dose lowering techniques and/or adjustment according to patient size were utilized for this exam. This exam was performed without intravenous contrast. CT DOSE: 2201.42 mGy.cm COMPARISON: None available at the time of this dictation. FINDINGS: Lower chest: No acute abnormality. Liver: Unremarkable. No focal lesions are seen. Gallbladder and biliary tree: No calcified gallstones. Normal caliber wall. No intra- or extrahepatic biliary ductal dilation. Pancreas: Unremarkable, no focal lesions. Spleen: Splenule is incidentally noted. Adrenals: Unremarkable. Kidneys and ureters: Atrophic bilateral kidneys noted. An atrophic transplant kidney is noted in the left lower quadrant. Bladder: Limited evaluation due to underdistention. Reproductive organs: Unremarkable. Bowel: Numerous dilated loops of large and small bowel are seen. There is apparent tethering of 2 loops of small bowel in one loop of large bowel in the right lower quadrant although this does not represent a transition point as distal loops of bowel are also dilated. Lymph nodes Retroperitoneal: Unremarkable. Pelvic: Unremarkable. Mesenteric: Unremarkable. Peritoneum: Peritoneal catheter is seen. No significant free fluid. Vessels: Unremarkable. Abdominal wall: Unremarkable. Bones: Degenerative changes in the visualized spine. IMPRESSION: Numerous dilated loops of large and small bowel without a firm transition point. Findings may represent ileus versus partial obstruction. There may be a focus of adhesions in the right lower quadrant. ACT 112: Negative or not required by law. Electronically signed by: David Torrez M.D. 03/17/2024 10:53 AM KUB X-Ray 03/22/24 14:02 KUB HISTORY: bowel obstruction COMPARISON: KUB 03/21/2024. FINDINGS: Nasogastric tube terminates in the gastric antrum. Dilated gas-filled loops of bowel are again seen throughout the abdomen. This is similar to the prior study. A left-sided peritoneal dialysis catheter is again noted and terminates in the right lower quadrant. No renal calculi. No ureteral calculi. No pneumoperitoneum or pneumatosis. IMPRESSION: 1. Nasogastric tube terminates in the gastric antrum. 2. Multiple dilated gas-filled loops of large and small bowel are not significantly changed. This could represent an ileus or bowel obstruction. ACT 112: Negative or not required by law. Electronically signed by: Yves Perez M.D. 03/22/2024 5:08 PM Chest X-Ray 03/25/24 11:42 SINGLE VIEW CHEST CLINICAL HISTORY: Anuria. Aphasia. FINDINGS: 3 AP, portable, semierect chest radiographs are compared to study dated 03/21/2024. Correlation is made with abdominal CT dated 03/17/2024. A right internal jugular central venous catheter is unchanged in position. The heart is top normal for projection. The pulmonary vasculature is noncongested. There are low lung volumes and bibasilar atelectasis. No airspace consolidation or large pleural effusion is identified. No pneumothorax is seen. The bony thorax is gr ossly intact. IMPRESSION: Low lung volumes with no active disease in the chest. ACT 112: Negative or not required by law. Electronically signed by: Ervin Andersen M.D. 03/25/2024 3:36 PM Hospital Course (1) Ileus: (2) Hypotension: (3) Aphasia, post-stroke: (4) ESRD on peritoneal dialysis: (5) Acute ischemic left MCA stroke: (6) Essential hypertension: Plan Mr. 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 As per prior provider Patient's course since admission complicated by hypotension requiring pressor support, as well as acute on chronic anemia requiring blood product this am. Responsive to transfusion, hgb 8.7 s/p units. Hemorrhagic gastritis Acute blood loss anemia Hematemesis s/p 7 units PRBCs S/P EGD on 03/25/2024: Hematin (altered blood/qkicno-lydlkn-rsez material) was found in the lower third of the esophagus. Clotted blood in the gastric fundus. Diffuse hemorrhagic gastritis. Epinephrine bath/lavage. Normal examined duodenum. No specimens collected. -- Repeat EGD on 03/26/2024:Red blood in the middle third of the esophagus and in the lower third of the esophagus. Clotted blood in the cardia. Two long hemostatic spray applications. Blood in the duodenal bulb. When the blood in the cardia was washed away - there was underlying friable tissue with touch bleeding even from lavage. No specimens collected. -- Continue Protonix drip Appreciate GI, surgery help Monitor H&H and transfuse as needed Avoid anticoagulation Poor prognosis Needs goals of care addressed Patient currently clinically deteriorating despite aggressive measures with pressors and blood transfusion. Patient family prefers to pursue Aggressive care. Given possible need for gastrectomy, patient will need to be transferred to care facility for further management. Patient is accepted at [facility] for further management. Possible Sepsis v SIRS Unclear source: Possible bacteremia, Pulmonary Source Chronic immunosuppression on cyclosporine --CXR:No acute chest disease. --CT ABD:Numerous dilated loops of large and small bowel without a firm transition point. Findings may represent ileus versus partial obstruction. There may be a focus of adhesions in the right lower quadrant. --Blood Cx:as below --Recently completed zosyn course 03/16 for aspiration PNA Continue IV Zosyn and Dapto--discontinued as per ID recommendations Elevated procalcitonin Midodrine on hold Gentle IV fluids as needed TTE study limited for assessment of endocarditis. Consulted infectious disease Currently requiring pressors--Levophed, vasopressin Appreciate morgue technician help Abnormal blood cultures Blood culture / coagulase-negative staph Repeat blood cultures: Negative to date Empirically on daptomycin, Zosyn--discontinued ID on board Repeat blood cultures pending Ileus Vs P.SBO Recent UGIB 2/2 gastritis --CT ABD as above Continue bowel rest, NG tube, gentle IV fluids Appreciate surgery input On PPI for gastritis NG tube output minimal + Flatus NG discontinued Surgery following Acute on chronic anemia Anemia likely multifactorial Received EPO 83712 IU sc once a week previously however held 2/2 recent stroke Monitor CBC ESRD on PD History of GPA s/p failed kidney transplant- on low-dose cyclosporin. Recent admission c/b hypotension, required CRRT and IHD PD catheter still in place Hold cinacalcet 60 mg daily via NG. Hold Cyclosporine 50 mg daily. Continue to avoid nephrotoxic drugs Appreciate nephrology input Monitor volume status Continue dialysis per nephrology Recent L MCA stroke c/b aphasia, right hemiparesis Calcified Mitral calcification, suspect cardioembolic Small PFO ROPE score noted to be 5, planned for OP cards follow up ALICIA completed showing PFO, atrial septal aneurysm, and calcified nodule on P2 of mitral valve [place] [facility] [place] el[place]is and Lipitor On statin Eliquis on hold due to bleeding issues DM II HbA1c 4.9 Monitor BGs DVT Px: SCDs for now CODE STATUS Full code Disposition [facility] Total Time Total Time Spent Total Time Spent (In Minutes): 65 minutes Discharge Plan Discharge Items Patient Disposition: Transfer Acute Care Hospital Reason For Visit: VOMITING, ?SBO Discharge Diagnosis: Hemorrhagic gastritis Acute blood loss anemia Possible Sepsis Ileus/Partial Small Bowel Obstruction Recent L MCA CVA ESRD on PD Condition on Discharge: Fair Activity: Per Instructions section Non-emergency contact: Primary Care Provider, Surgeon and Supervisor [employer] Call non-emergency contact if: you have any medication questions, your symptoms worsen, your pain is unusual for you and your pain is concerning for you Follow-up/Referrals: PCP,NO [Primary Care Provider] - Diet: Other - See Diet Comment Diet Comment: Currently Intubated Addtl Attending Provider Instructions: Follow up with your physician at [facility] for further management. Rocky Hog Dropper Provider Instructions: Date of Service: March 26, 2024 Current Inpatient Medications Acetaminophen (Acetaminophen 325 Mg Tab) 650 mg PO Q4H PRN PRN Reason: pain/fever Stop: 04/16/24 20:30 Dextrose (Dextrose 50% 50 Ml Syringe) 25 - 50 ml IV UD PRN; Protocol PRN Reason: Hypoglycemia Protocol Stop: 04/16/24 21:04 Fentanyl Citrate (Fentanyl Bolus From Bag) 50 mcg IV Q60M PRN PRN Reason: Pain or Agitation Stop: 04/08/24 20:35 Last Admin: 03/26/24 00:00 Dose: 50 mcg Glucagon (Glucagon For Inj 1 Mg Vial) 1 mg SQ UD PRN; Protocol PRN Reason: Hypoglycemia Protocol Stop: 04/16/24 21:04 Glucose (Glucose 40% Gel 15 Gm Tube) 15 - 30 gm PO UD PRN; Protocol PRN Reason: Hypoglycemia Protocol Stop: 04/16/24 21:04 Glucose (Glucose 10 Tab/Tube) 4 - 8 tab PO UD PRN; Protocol PRN Reason: Hypoglycemia Treatment Stop: 04/16/24 21:04 Heparin Sodium (Beef Lung) (Heparin 10 Unit/Ml 5 Ml Flush) 5 ml FLUSH PRN PRN PRN Reason: Flush Stop: 04/25/24 04:22 Heparin Sodium (Porcine) (Heparin Sod 5,000 Unit/0.5 Ml Vial) 7,500 units SQ Q8 HANSA Stop: 04/17/24 13:59 Last Admin: 03/24/24 21:17 Dose: 7,500 units Promethazine HCl 6.25 mg/ (Sodium Chloride) 50.25 mls @ 201 mls/hr IV Q6H PRN PRN Reason: Nausea And Vomiting Stop: 04/19/24 14:31 Piperacillin Sod/Tazobactam (Sod 4.5 gm/ Dextrose) 100 mls @ 25 mls/hr IV Q12H HANSA; Protocol Stop: 03/28/24 02:59 Last Infusion: 03/26/24 07:15 Dose: Infused Pantoprazole Sodium 40 mg/ (Dextrose) 100 mls @ 20 mls/hr IV Q5H HANSA Stop: 04/23/24 22:59 Last Admin: 03/26/24 15:36 Dose: 8 mg/hr, 20 mls/hr Sodium Chloride (Nss) 1,000 mls @ 60 mls/hr IV .[id number] HANSA Stop: 04/24/24 08:14 Last Admin: 03/26/24 06:29 Dose: 60 mls/hr Norepinephrine Bitartrate (Levophed/D5w) 4 mg in 250 mls @ 84.225 mls/hr IV .[id number] HANSA; Protocol Stop: 04/24/24 14:29 Last Admin: 03/26/24 17:55 Dose: Not Given Midazolam HCl (Versed) 125 mg in 250 mls @ 5 mls/hr IV .Q50H HANSA; Protocol Stop: 04/24/24 19:44 Last Titration: 03/26/24 07:15 Dose: 2.5 mg/hr, 5 mls/hr Acetaminophen (Ofirmev) 1,000 mg in 100 mls @ 400 mls/hr IV Q8H PRN PRN Reason: Fever Stop: 03/28/24 20:31 Last Infusion: 03/26/24 16:47 Dose: Infused Fentanyl Citrate (Fentanyl Citrate) 2,500 mcg in 250 mls @ 7.5 mls/hr IV .[id number] HANSA; Protocol Stop: 04/08/24 20:44 Last Titration: 03/26/24 11:50 Dose: 75 mcg/hr, 7.5 mls/hr Vasopressin 20 units/ Sodium (Chloride) 101 mls @ 12.12 mls/hr IV .Q8H20M HANSA Stop: 04/24/24 23:29 Last Admin: 03/26/24 13:31 Dose: 0.04 unit/min, 12.1 mls/hr Sodium Chloride (Nss) 250 mls @ 15 mls/hr IV .[id number] PRN PRN Reason: For Transfusion Duration Stop: 03/27/24 03:03 Metoprolol Tartrate (Metoprolol Tartrate 1 Mg/Ml Vial) 2.5 mg IV Q6 PRN PRN Reason: Tachycardia HR>120 Stop: 04/19/24 17:59 Midazolam HCl (Midazolam Bolus From Bag) 2 mg IV Q60M PRN PRN Reason: Sedation Stop: 04/24/24 19:38 Last Admin: 03/26/24 00:00 Dose: 2 mg Midodrine (Midodrine Hcl 2.5 Mg Tab) 5 mg PO TID@0800,1200,1700 [facility] Stop: 04/16/24 16:59 Last Admin: 03/24/24 17:34 Dose: Not Given Miscellaneous (Carbohydrates For Hypoglycemia ) 15 - 30 gm PO UD PRN PRN Reason: Hypoglycemia Protocol Stop: 04/16/24 21:04 Ondansetron HCl (Ondansetron Inj 2 Mg/Ml 2 Ml Vial) 4 mg IV Q6H PRN PRN Reason: Nausea Stop: 04/16/24 14:03 Last Admin: 03/20/24 12:13 Dose: 4 mg Propofol (Propofol Bolus From Bag) 20 mg IV Q5M PRN PRN Reason: Sedation Stop: 03/28/24 19:38 Pending Studies at Discharge: Yes Studies:: Blood Cultures Stand-Alone Forms: My [facility] Skilled Items Patient informed of condition?: Yes DNR: No Discharge Level of Care: Other Communicable Disease: No Discharge Prognosis: Deteriorating Lines: Peripheral IV Urinary Catheter: Yes Medications and DC Order Prescriptions: Continued cyclosporine modified 25 mg capsule 50 mg PO BID metoprolol succinate 100 mg tablet extended release 24 hr 100 mg PO QAM cinacalcet 30 mg tablet 60 mg PO QPM calcium acetate(phosphat bind) 667 mg capsule 2,001 mg PO UD Rx Instructions: 3 caps po with meals and snacks febuxostat 80 mg tablet 80 mg PO QAM Auryxia 210 mg iron tablet 210 mg PO AC atorvastatin 40 mg Tablet 40 mg PO HS omeprazole 20 mg Capsule,Delayed Release(Dr/Ec) 20 mg PO BID Nephrocaps 1 mg Capsule 1 cap PO DAILY Held Eliquis 5 mg Tablet 5 mg PO BID Hold Instructions: Until further instructions Discharge Orders: Discharge Order (Routine); Ordered 03/26/24 Ordered By: Moshe Sharp Admission Data Admit Date/Time: 03/17/24 12:01 Attending Provider: Moshe Sharp Admit Provider: Kiana Davies Primary Care Provider: PCP,LITO Other Providers: Chay Velez; [facility]; Kiana Davies; Arpan Esquivel; Emilie Amaya; Shannen Doyle; Daniel Patel; Maria Esther Pal; April Cheek; Tabitha Ross; Antonieta Baron; Shaylee Romero; Caden Bauer; Chioma Elise; Grover Turcios; Onesimo Godoy; Belgica Aguilar; Kalyani Muñoz; Maria Elena Arana; Kirsten Magana; Deborah Anthony; Uriel Mittal; Willard Hamlin; Mary Ferro; Rehana Rodriguez Jr; Gallito Lawson; Jerry Stanley; Randall Isaacs; Yassine Calixto; Megan Dodd; Jose Vizcarra; Sukumar Murrieta; Jose Man I.; Reji Jaime II; Colleen Machado; William Hernandez; Jorge Luis Pena; Annette Manzo; April Collier; Bairon Altamirano; Farrukh Gracia; William So; Sanchez Arana; Adelfo Mcallister; Soila Campbell
== END 2024-03-26 19:30 | disposition short-term general hospital (02) | DRG 326 ==
LOC: ED 09:07 → 4W 12:01 → SUATTDRO 12:01 → 4W 12:50 → 1E 15:30 → 4W 03-19 11:07 → 1E 03-25 12:59